=== PATIENT | female | born 1980 | race Caucasian/White ===

== ENCOUNTER 2023-03-20 12:32 | Outpatient (CLI) | payer OTHER, SELFPAY ==
--- NOTE | ~2023-03-20 | XR_ITS ---
XR abdomen/kub 1V 03/20/2023 13:12 Indication: Abdominal distention Procedure: KUB Comparison: 05/03/2005 Findings: Bowel gas pattern nonobstructive. Moderate colonic fecal loading. Lung bases unremarkable. There is a vascular stent in the left iliac artery. No acute osseous abnormality. Impression: 1: No acute abdominal abnormality. Reviewed, dictated and finalized at location B. ORIZATION REPRESENTATIVE Impression: 1: No acute abdominal abnormality.
[2023-03-20 13:19] LABS: Hematocrit 37.5 % (37.0-47.0); Hemoglobin 11.8 g/dL (12.0-15.0); Mean Corpuscular HGB Conc 31.5 g/dl (32-36); Mean Corpuscular Volume 88.9 fl (80-100); Platelet Count Result 327 k/mm3 (150-375); Red Blood Count 4.22 M/mm3 (4.2-5.4); Red Cell Distribution Width 14.1 % (11.5-14.5); White Blood Count 4.5 K/mm3 (4.5-10.0)
[2023-03-20 13:31] LABS: Alanine Aminotransferase 14 U/L (6-35); Albumin Level 4.2 g/dL (3.5-5.1); Alkaline Phosphatase 56 U/L (38-126); Anion Gap 10 mmol/L (8-16); Aspartate Amino Transferase 19 U/L (14-36); Bilirubin,Total 0.4 mg/dL (0.2-1.3); Blood Urea Nitrogen 9 mg/dL (7-17); Calcium 9.3 mg/dL (8.4-10.2); Carbon Dioxide 19 mmol/L (22-30); Chloride 109 mmol/L (98-107); Estimated Glomerular Filt Rate 50; Glucose 97 mg/dL (65-110); Potassium 4.3 mmol/L (3.4-5.0); Sodium 138 mmol/L (137-145)
[2023-03-20 14:00] LABS: Thyroid Stimulating Hormone < 0.015 uIU/mL (0.465-4.680)
== END 2023-03-20 12:33 | disposition home or self-care (01) ==
LOC: ANHLAB 12:35
PROVIDERS: PCP Family Medicine; Visit Provider Nurse Practitioner Family
DX: R14.0 Abdominal distension (gaseous) (principal)
CPT/HCPCS: 36415; 74018; 80053; 84443; 85027

== ENCOUNTER 2024-01-06 13:25 | Emergency (ER) | payer OTHER, SELFPAY ==
--- NOTE | ~2024-01-06 | US_ITS ---
EXAMINATION: US venous doppler [facility] DATE: 01/06/2024 15:04 INDICATION: Bilateral lower limb pain with chest pain and respiratory abnormality. TECHNIQUE: Grayscale ultrasound images without and with compression and Doppler ultrasound images of the bilateral lower extremity veins were obtained. COMPARISON: None. FINDINGS: The visualized portions of right common femoral vein, profunda (deep) femoral vein, femoral vein, pop liteal vein, posterior tibial veins, peroneal veins and greater saphenous vein outflow are patent. The visualized portions of left common femoral vein, profunda femoral vein, femoral vein, popliteal v ein, posterior tibial veins, peroneal veins and greater saphenous vein outflow are patent. IMPRESSION: 1. No deep venous thrombosis in either lower limb. Reviewed, dictated and finalized at location B.
--- NOTE | ~2024-01-06 | CT_ITS ---
EXAMINATION: CTA chest PE protocol DATE: 01/06/2024 16:39 INDICATION: CP with SOA TECHNIQUE: Computed tomography angiography (CTA) of the chest was performed with 100 mL Omnipaque-350 intravenous contrast timed to evaluate the pulmonary arteries. Coronal maximum intensity projection 3D-reconstructions were created by the technologist. The dose-length product (DLP) was 144.34 mGy-cm. Automated exposure control and iterative reconstruction technique were employed. COMPARISON: None. FINDINGS: Motion artifact in the lung bases and upper abdomen. Lung parenchyma and airways: Clear. Pleura: Unremarkable. Thoracic inlet, axillae and chest wall: Unremarkable. Thoracic aorta: No significant dilation. No dissection. Mediastinum: Normal. Heart and pericardium: Normal. Coronary artery calcifications: Absent. Upper abdomen: No significant finding. Bones: No acute osseous finding. Pulmonary arteries: Study quality: Adequate. No pulmonary emboli detected. IMPRESSION: No CT evidence of acute pulmonary embolus. No acute process detected in the chest. Reviewed, dictated and finalized at location K.
--- NOTE | 2024-01-06 13:32 | ECG_ITS ---
Test Date: 2024-01-06 13:36:08 Measurements Intervals [place] Rate: 132 P: 69 [place]: 142 QRS: 76 QRSD: 79 T: 57 QT: 296 QTc: 439 Interpretive Statements SINUS TACHYCARDIA BASELINE ARTIFACT- I, II, AVR, AVL ABNORMAL ECG No previous ECG available for comparison Electronically Signed On 01-06-2024 13:46:25 CDT by Arturo Walton D.O.
[2024-01-06 13:41] VITALS: BP 144/106; PULSE 132; RESP 18; TEMP 36.3; O2SAT 100
[2024-01-06 13:56] VITALS: BP 173/118; PULSE 117; PULSE 131; RESP 11; RESP 16; O2SAT 100; O2SAT 99
[2024-01-06 14:13] VITALS: BP 129/92; PULSE 118; RESP 16; O2SAT 99
[2024-01-06] MEDS: ACETAMINOPHEN 325 MG TABLET 650 MG PO (14:23)
[2024-01-06] MEDS: fentaNYL CITRATE INJ (*CRX) 100 MCG/2 ML VIAL 50 MCG IV PUSH (14:30)
[2024-01-06 14:31] LABS: Basophils Percent Auto 0.6 % (0.2-1.2); Eosinophils Absolute Auto 0.3 K/mm3 (0-0.3); Eosinophils Percent Auto 3.7 % (0-4.4); Hematocrit 38.5 % (37.0-47.0); Hemoglobin 12.7 g/dL (12.0-15.0); Immature Granulocyte Absolute 0.01 K/mm3 (0.00-0.031); Immature Granulocyte Percent A 0.1 % (0-0.5); Lymphocytes Absolute Auto 2.29 K/mm3 (0.9-3.2); Mean Corpuscular Hemoglobin 29.1 pg (26-34); Mean Corpuscular Volume 88.1 fl (80-100); Mean Platelet Volume 9.5 fl (7.4-10.4); Monocytes Absolute Auto 0.5 K/mm3 (0.1-0.6); Monocytes Percent Auto 6.9 % (2.6-8.5); Neutrophils Absolute Auto 3.9 K/mm3 (1.3-6.7); Neutrophils Percent Auto 55.7 % (45.5-73.1); Platelet Count Result 338 k/mm3 (150-375); Red Blood Count 4.37 M/mm3 (4.2-5.4); White Blood Count 6.9 K/mm3 (4.5-10.0)
[2024-01-06] MEDS: ONDANSETRON INJ 4 MG/2 ML VIAL IV PUSH (14:34)
[2024-01-06 14:42] LABS: INR 1.4; Partial Thromboplastin Time 29.9 Seconds (22.3-36.8); Prothrombin Time 17.8 Seconds (11.1-14.7)
[2024-01-06 14:43] LABS: Add Urine Microscopic? YES; Appearance Urine Clear (Clear); Bacteria Urine None Seen /hpf; Bilirubin Urine Negative (Negative); Blood Urine 3+ (Negative); Color Urine Yellow (Yellow); Glucose Urine UA Negative (Negative); Ketones Urine Trace mg/dL (Negative); Leukocyte Esterase Ur Trace LEU/UL (Negative); Nitrate Urine Negative (Negative); Non Pathogenic Casts 0-2; Protein Urine Negative (Negative); RBC Urine >100 /hpf (0-2); Specific Grav Ur 1.017 (1.001-1.035); Squamous Epithelial Cell Urine None Seen /hpf (Few); Urobilinogen Urine 0.2 mg/dL (<2.0); WBC Urine 0-5 /hpf (0-3)
[2024-01-06 15:23] VITALS: BP 130/99; PULSE 100; RESP 18; O2SAT 100
--- NOTE | 2024-01-06 15:28 | PC.NURSE ---
Called lab at this time to add on CMP, BNP, and Trop
[2024-01-06 15:54] LABS: Alanine Aminotransferase 12 U/L (6-35); Albumin Level 4.2 g/dL (3.5-5.1); Alkaline Phosphatase 48 U/L (38-126); Anion Gap 13 mmol/L (4-12); Aspartate Amino Transferase 28 U/L (14-36); Bilirubin,Total 0.3 mg/dL (0.2-1.3); Blood Urea Nitrogen 12 mg/dL (7-17); Calcium 9.4 mg/dL (8.4-10.2); Carbon Dioxide 19 mmol/L (22-30); Chloride 108 mmol/L (98-107); Estimated CRCL calculation 58 ml/min; Estimated Glomerular Filt Rate > 60; Glucose 108 mg/dL (65-110); Potassium 3.9 mmol/L (3.4-5.0); Sodium 140 mmol/L (137-145)
[2024-01-06 16:06] LABS: NT Pro B Type Natriuretic Pept < 20 pg/mL (19.9-100); Troponin I < 0.012 ng/mL (0.000-0.034)
--- NOTE | 2024-01-06 17:08 | ED.GENADULT ---
HPI - General Adult General Chief complaint: Extremity Problem,Nontraumatic Stated complaint: bilateral leg pain. hx DVT Time Seen by Provider: 01/06/24 13:54 History of Present Illness HPI narrative: Patient is a 43-year-old female who presents ER with leg pain and chest pain. She thinks she has a clot in her legs. She has been having discomfort up and down legs for last week. Her PCP told her to come to the ER 3 days ago which she waited until today. She has also been having some racing heart and dyspnea with mild pain with deep breath. No hemoptysis. She is anticoagulated on Xarelto. No fevers or chills or sweats. No runny nose or sore throat or productive cough. No aggravating or alleviating factors. Related Data Home Medications Medication Instructions Recorded Confirmed albuterol sulfate 90 mcg/actuation 1 inh inhalation Q4H PRN Shortness 03/19/23 04/03/23 aerosol inhaler Of Breath alprazolam 1 mg tablet 1 mg PO DAILY PRN Anxiety 03/19/23 04/03/23 levothyroxine 175 mcg capsule 175 mcg PO DAILY 03/19/23 04/03/23 bupropion HCl 150 mg tablet,12 hr 150 mg PO DAILY 04/03/23 04/03/23 sustained-release cholecalciferol (vitamin D3) 125 125 mcg PO DAILY 04/03/23 04/03/23 mcg (5,000 unit) tablet (Vitamin D3) clonidine HCl 0.2 mg tablet 0.2 mg PO HS 04/03/23 04/03/23 cyanocobalamin (vitamin B-12) 1,000 mcg IM MONTHLY 04/03/23 04/03/23 1,000 mcg/mL injection solution dexmethylphenidate 20 mg 20 mg PO DAILY 04/03/23 04/03/23 capsule,extended release -83 (Focalin XR) diazepam 5 mg tablet 5 - 10 mg PO DAILY PRN Anxiety 04/03/23 04/03/23 ergocalciferol (vitamin D2) 1,250 1,250 mcg PO WEEKLY 04/03/23 04/03/23 mcg (50,000 unit) capsule ferrous sulfate 325 mg (65 mg 325 mg PO BID 04/03/23 04/03/23 iron) tablet (Iron (ferrous sulfate)) fluticasone propionate 50 1 spray intranasal DAILY 04/03/23 04/03/23 mcg/actuation nasal spray,suspension hydroxyzine pamoate 50 mg capsule 50 mg PO BID 04/03/23 04/03/23 ketoconazole 2 % shampoo 1 applic topical PRN PRN DERMATITIS 04/03/23 04/03/23 lamotrigine 25 mg tablet 50 mg PO DAILY 04/03/23 04/03/23 linaclotide 145 mcg capsule 145 mcg PO DAILY 04/03/23 04/03/23 (Linzess) metoclopramide HCl 10 mg tablet 10 mg PO TIDWMEAL 04/03/23 04/03/23 ondansetron 4 mg disintegrating 4 - 8 mg PO TID PRN Nausea 04/03/23 04/03/23 tablet polyethylene glycol 3350 17 17 g PO DAILY PRN Constipation 04/03/23 04/03/23 gram/dose oral powder (Miralax) rivaroxaban 20 mg tablet (Xarelto) 20 mg PO DAILY 04/03/23 04/03/23 thiamine HCl (vitamin B1) 1 tab-cap PO DAILY 04/03/23 04/03/23 topiramate 100 mg tablet 150 mg PO DAILY 04/03/23 04/03/23 vitamin A 1 cap PO DAILY 04/03/23 04/03/23 zinc 1 tab-cap PO DAILY 04/03/23 04/03/23 Allergies Allergy/AdvReac Type Severity Reaction Status Date / Time morphine Allergy Severe throat Verified 04/03/23 10:00 swelling nifedipine Allergy Intermediate Severe Verified 03/20/23 11:12 headache latex Allergy Mild Rash Verified 04/03/23 10:00 Sulfa (Sulfonamide AdvReac Mild vomiting Verified 04/03/23 10:00 Antibiotics) HYDROCODONE BIT AdvReac NAUSEA Uncoded 04/03/23 10:00 Review of Systems Review of Systems: All systems reviewed & are unremarkable except as noted in HPI and below Constitutional: Constitutional: Reports no additional constitutional complaints ENT: Reports system reviewed and no additional complaints, except as documented Cardiovascular: Cardiovascular: Reports chest pain, Reports rapid heart rate and Denies radiating jaw, neck or arm pain Respiratory: Respiratory: Reports no additional respiratory complaints Gastrointestinal: Gastrointestinal: Reports no additional gastrointestinal complaints Musculoskeletal: Musculoskeletal: Reports no additional musculoskeletal complaints [facility] Past Medical History Medical History (Updated 01/06/24 @ 17:22 by Jakob Antonio MD) Abdominal bloating Constipati
[2024-01-06 17:49] VITALS: BP 128/90; PULSE 97; RESP 20; O2SAT 98
== END 2024-01-06 17:50 | disposition home or self-care (01) ==
PROVIDERS: Emergency Provider Emergency Medicine
DX: M79.605 Pain in left leg (principal); M79.604 Pain in right leg; R07.9 Chest pain, unspecified; Z86.718 Personal history of other venous thrombosis and embolism; Z87.891 Personal history of nicotine dependence; Z79.01 Long term (current) use of anticoagulants; Z79.899 Other long term (current) drug therapy
CPT/HCPCS: 36415; 71275; 80053; 81001; 83880; 84484; 85025; 85610; 85730; 93005; 93970; 96374; 96375; 99284; A9270; J2405; J3010; Q9967

== ENCOUNTER 2024-04-19 17:24 | Emergency (ER) | payer OTHER, SELFPAY ==
--- NOTE | ~2024-04-19 | CT_ITS ---
History: Headache PROCEDURE: CT head without contrast. COMPARISON: 10/08/2011 TECHNIQUE: Axial imaging of the head performed from the skull base to the vertex without IV contrast. Sagittal a nd coronal reformations obtained. DLP: 605 mGy-cm FINDINGS: The ventricles are normal in size, shape and position. There is no mass, mass effect or midline shift. There is no abnormal extra-axial fluid collection or intracranial hemorrhage. Visualized paranasal sinuses are clear. The mastoid air cells are well aerated. No acute displaced fractures within the overlying cranium. Impression: No acute intracranial hemorrhage or suspicious mass effect. Reviewed, dictated and finalized at location A. E LAMINATOR OPERATOR Impression: No acute intracranial hemorrhage or suspicious mass effect.
[2024-04-19 17:25] VITALS: BP 118/90; PULSE 120; RESP 16; TEMP 36.3; O2SAT 100
[2024-04-19 21:23] VITALS: BP 118/93; PULSE 73; RESP 19; O2SAT 100
--- NOTE | 2024-04-19 21:26 | PC.NURSE ---
patient brought back from triage. patient is hunched over with scarf on complaining of severe headache.
[2024-04-19] MEDS: SODIUM CHLORIDE 0.9% IV 1,000 ML 999 ML IV CONT (21:57)
[2024-04-19] MEDS: dexAMETHasone SOD PHOS INJ 10 MG/ML 1 ML VIAL IV PUSH (21:58)
[2024-04-19] MEDS: METOCLOPRAMIDE HCL INJ 10 MG/2 ML VIAL IV PUSH (21:58)
[2024-04-19] MEDS: diphenhydrAMINE HCl INJ 50 MG/ML VIAL 25 MG IV PUSH (21:59)
[2024-04-19] MEDS: MAGNESIUM SULF 1 GM/D5W 100 ML 1 GM/100 ML BAG IVPB (22:03)
[2024-04-19 22:06] LABS: Basophils Absolute Auto 0.1 K/mm3 (0.0-0.1); Basophils Percent Auto 0.7 % (0.2-1.2); Eosinophils Absolute Auto 0.3 K/mm3 (0-0.3); Eosinophils Percent Auto 3.9 % (0-4.4); Hematocrit 35.6 % (37.0-47.0); Lymphocytes Absolute Auto 3.08 K/mm3 (0.9-3.2); Lymphocytes Percent Auto 46.1 % (18.3-44.2); Mean Corpuscular HGB Conc 30.9 g/dl (32-36); Mean Corpuscular Hemoglobin 24.9 pg (26-34); Mean Corpuscular Volume 80.5 fl (80-100); Monocytes Absolute Auto 0.6 K/mm3 (0.1-0.6); Neutrophils Absolute Auto 2.7 K/mm3 (1.3-6.7); Neutrophils Percent Auto 40.3 % (45.5-73.1); Platelet Count Result 392 k/mm3 (150-375); Red Blood Count 4.42 M/mm3 (4.2-5.4); Red Cell Distribution Width 17.2 % (11.5-14.5); White Blood Count 6.7 K/mm3 (4.5-10.0)
[2024-04-19 22:19] LABS: Alanine Aminotransferase 9 U/L (6-35); Albumin Level 4.5 g/dL (3.5-5.1); Alkaline Phosphatase 51 U/L (38-126); Anion Gap 6 mmol/L (4-12); Aspartate Amino Transferase 17 U/L (14-36); Bilirubin,Total 0.4 mg/dL (0.2-1.3); Blood Urea Nitrogen 9 mg/dL (7-17); Calcium 9.4 mg/dL (8.4-10.2); Carbon Dioxide 20 mmol/L (22-30); Chloride 112 mmol/L (98-107); Estimated CRCL calculation 58 ml/min; Estimated Glomerular Filt Rate > 60; Glucose 90 mg/dL (65-110); Potassium 3.9 mmol/L (3.4-5.0); Sodium 138 mmol/L (137-145)
[2024-04-19 22:43] LABS: Magnesium 2.1 mg/dL (1.6-2.3)
--- NOTE | 2024-04-19 23:37 | ED_ITS ---
HPI - General Adult General Chief complaint: Headache Stated complaint: head Time Seen by Provider: 04/19/24 21:26 History of Present Illness HPI narrative: Patient 43-year-old female who presents emergency department with chief complaint of headache. The patient reports he has been having some nausea vomiting and reports she has had headache patient does report that she takes Eliquis for DVTs patient reports he has not missed any medications the patient states that the light bothers her eyes reports she feels nauseated with this the patient denies focal weakness. Related Data Home Medications ?Medication ?Instructions ?Recorded ?Confirmed ?Last Taken ?Type albuterol sulfate 90 mcg/actuation 1 inh inhalation Q4H PRN Shortness 03/19/23 04/03/23 Unknown History aerosol inhaler Of Breath alprazolam 1 mg tablet 1 mg PO DAILY PRN Anxiety 03/19/23 04/03/23 Unknown History levothyroxine 175 mcg capsule 175 mcg PO DAILY 03/19/23 04/03/23 Unknown History bupropion HCl 150 mg tablet,12 hr 150 mg PO DAILY 04/03/23 04/03/23 Unknown History sustained-release cholecalciferol (vitamin D3) 125 125 mcg PO DAILY 04/03/23 04/03/23 Unknown History mcg (5,000 unit) tablet (Vitamin D3) clonidine HCl 0.2 mg tablet 0.2 mg PO HS 04/03/23 04/03/23 Unknown History cyanocobalamin (vitamin B-12) 1,000 mcg IM MONTHLY 04/03/23 04/03/23 Unknown History 1,000 mcg/mL injection solution dexmethylphenidate 20 mg 20 mg PO DAILY 04/03/23 04/03/23 Unknown History capsule,extended release [id number] (Focalin XR) diazepam 5 mg tablet 5 - 10 mg PO DAILY PRN Anxiety 04/03/23 04/03/23 Unknown History ergocalciferol (vitamin D2) 1,250 1,250 mcg PO WEEKLY 04/03/23 04/03/23 Unknown History mcg (50,000 unit) capsule ferrous sulfate 325 mg (65 mg 325 mg PO BID 04/03/23 04/03/23 Unknown History iron) tablet (Iron (ferrous sulfate)) fluticasone propionate 50 1 spray intranasal DAILY 04/03/23 04/03/23 Unknown History mcg/actuation nasal spray,suspension hydroxyzine pamoate 50 mg capsule 50 mg PO BID 04/03/23 04/03/23 Unknown History ketoconazole 2 % shampoo 1 applic topical PRN PRN DERMATITIS 04/03/23 04/03/23 Unknown History lamotrigine 25 mg tablet 50 mg PO DAILY 04/03/23 04/03/23 Unknown History linaclotide 145 mcg capsule 145 mcg PO DAILY 04/03/23 04/03/23 Unknown History (Linzess) metoclopramide HCl 10 mg tablet 10 mg PO TIDWMEAL 04/03/23 04/03/23 Unknown History ondansetron 4 mg disintegrating 4 - 8 mg PO TID PRN Nausea 04/03/23 04/03/23 Unknown History tablet polyethylene glycol 3350 17 17 g PO DAILY PRN Constipation 04/03/23 04/03/23 Unknown History gram/dose oral powder (Miralax) rivaroxaban 20 mg tablet (Xarelto) 20 mg PO DAILY 04/03/23 04/03/23 Unknown History thiamine HCl (vitamin B1) 1 tab-cap PO DAILY 04/03/23 04/03/23 Unknown History topiramate 100 mg tablet 150 mg PO DAILY 04/03/23 04/03/23 Unknown History vitamin A 1 cap PO DAILY 04/03/23 04/03/23 Unknown History zinc 1 tab-cap PO DAILY 04/03/23 04/03/23 Unknown History Allergies Allergy/AdvReac Type Severity Reaction Status Date / Time morphine Allergy Severe throat Verified 04/03/23 10:00 swelling nifedipine Allergy Intermediate Severe Verified 03/20/23 11:12 headache latex Allergy Mild Rash Verified 04/03/23 10:00 Sulfa (Sulfonamide AdvReac Mild vomiting Verified 04/03/23 10:00 Antibiotics) HYDROCODONE BIT AdvReac NAUSEA Uncoded 04/03/23 10:00 Review of Systems 2 Review of Systems: A 10 system review of systems was completed on the patient and is negative except for what is stated in the HPI. Nursing and ancillary documentation was reviewed. [facility] Past Medical History Medical History Constipation Nausea & vomiting Abdominal bloating Social History Social History Smoking packs per day: 0.75 Smoking cigarettes per day: 15.0 Years smoked: 16 Smoking pack-years: 12.00 Smoking status: Former smoker Tobacco type: cigarettes and e-cigarettes/vaping Alcohol intake: current Substance use: never Substance use type: does not use Living arrangements: with family Spiritual care concerns: No Exam 2 Narrative: GENERAL: Well-appearing, well-nourished, and in no acute distress. HEAD: Normocephalic, atraumatic. EYES: PERRLA and EOMI. ENT: Nares clear, no rhinorrhea or epistaxis. Mucous membranes moist. NECK: Supple. CHEST: Clear to auscultation. No respiratory distress. HEART: Regular rate and rhythm. No murmur heard. Normal peripheral pulses. ABDOMEN: Soft, nontender, nondistended, normal active bowel sounds. EXTREMITIES: Normal range of motion. No edema. SKIN: Warm, dry, no rash. NEURO: No focal deficits. Alert and oriented x3. PSYCH: Normal mood and affect. Course Vital Signs Vital signs: Vital Signs Temperature 36.3 C L 04/19/24 17:25 Pulse Rate 120 H 04/19/24 17:25 Respiratory Rate 16 04/19/24 17:25 Blood Pressure 118/90 04/19/24 17:25 Pulse Oximetry 100 04/19/24 17:25 Temperature 36.3 C L 04/19/24 17:25 Pulse Rate 73 04/19/24 21:23 Respiratory Rate 19 04/19/24 21:23 Blood Pressure 118/93 H 04/19/24 21:23 Pulse Oximetry 100 04/19/24 21:23 Medical Decision Making [facility] Narrative Medical decision making narrative: Differential diagnosis includes migraine headache, headache, intracranial hemorrhage, Laboratory studies were obtained on the patient showed normal CBC CMP showed no significant abnormalities CT head showed no acute intracranial pathology. The patient was treated with modified migraine cocktail and is feeling much better at this time the patient will be discharged home. Vital Signs Vital Signs: Vital Signs Temperature 36.3 C L 04/19/24 17:25 Pulse Rate 120 H 04/19/24 17:25 Respiratory Rate 16 04/19/24 17:25 Blood Pressure 118/90 04/19/24 17:25 Pulse Oximetry 100 04/19/24 17:25 Temperature 36.3 C L 04/19/24 17:25 Pulse Rate 73 04/19/24 21:23 Respiratory Rate 19 04/19/24 21:23 Blood Pressure 118/93 H 04/19/24 21:23 Pulse Oximetry 100 04/19/24 21:23 Lab Data 04/19/24 21:57 04/19/24 21:57 Labs: Lab Results 04/19/24 04/19/24 Range/Units 21:57 21:57 WBC 6.7 (4.5-10.0) K/mm3 RBC 4.42 (4.2-5.4) M/mm3 Hgb 11.0 L (12.0-15.0) g/dL Hct 35.6 L (37.0-47.0) % MCV 80.5 (80-100) fl MCH 24.9 L (26-34) pg MCHC 30.9 L (32-36) g/dl RDW 17.2 H (11.5-14.5) % Plt Count 392 H (150-375) k/mm3 MPV 10.0 (7.4-10.4) fl Immature Gran % (Auto) 0.0 (0-0.5) % Neut % (Auto) 40.3 L (45.5-73.1) % Lymph % (Auto) 46.1 H (18.3-44.2) % [place] % (Auto) 9.0 H (2.6-8.5) % Eos % (Auto) 3.9 (0-4.4) % Baso % (Auto) 0.7 (0.2-1.2) % Lymph # (Auto) 3.08 (0.9-3.2) K/mm3 [place] # (Auto) 0.6 (0.1-0.6) K/mm3 Eos # (Auto) 0.3 (0-0.3) K/mm3 Baso # (Auto) 0.1 (0.0-0.1) K/mm3 Abs Immat Gran (auto) 0.00 (0.00-0.031) K/mm3 Absolute Neuts (auto) 2.7 (1.3-6.7) K/mm3 Absolute Nucleated RBC 0.000 (0.0-0.012) K/mm3 Nucleated RBC % 0.0 (0.0-0.2) % Sodium 138 (137-145) mmol/L Potassium 3.9 (3.4-5.0) mmol/L Chloride 112 H (98-107) mmol/L Carbon Dioxide 20 L (22-30) mmol/L Anion Gap 6 (4-12) mmol/L BUN 9 (7-17) mg/dL Creatinine 1.00 (0.7-1.0) mg/dL Estim Creat Clear Calc 58 ml/min Estimated GFR > 60 (59 - ) Glucose 90 (65-110) mg/dL Calcium 9.4 (8.4-10.2) mg/dL Magnesium 2.1 Cancelled (1.6-2.3) mg/dL Total Bilirubin 0.4 (0.2-1.3) mg/dL AST 17 (14-36) U/L ALT 9 (6-35) U/L Alkaline Phosphatase 51 (38-126) U/L Total Protein 8.0 (6.3-8.2) g/dL Albumin 4.5 (3.5-5.1) g/dL Discharge Plan Discharge Clinical Impression: Headache Patient Disposition: Home, Self-Care Condition: Stable Instructions: Antibiotic Form, Acute Headache (ED) Patient Language: Maori Prescriptions: No Action albuterol sulfate 90 mcg/actuation HFA aerosol inhaler 1 inh inhalation Q4H PRN (Reason: Shortness Of Breath) alprazolam 1 mg tablet 1 mg PO DAILY PRN (Reason: Anxiety) levothyroxine 175 mcg capsule 175 mcg PO DAILY bupropion HCl 150 mg tablet sustained-release 12 hr 150 mg PO DAILY hydroxyzine pamoate 50 mg capsule 50 mg PO BID lamotrigine 25 mg tablet 50 mg PO DAILY clonidine HCl 0.2 mg tablet 0.2 mg PO HS cyanocobalamin (vitamin B-12) 1,000 mcg/mL solution 1,000 mcg IM MONTHLY ferrous sulfate [Iron (ferrous sulfate)] 325 mg (65 mg iron) Tablet 325 mg PO BID polyethylene glycol 3350 [Miralax] 17 gram/dose Powder 17 g PO DAILY PRN (Reason: Constipation) ondansetron 4 mg tablet,disintegrating 4 - 8 mg PO TID PRN (Reason: Nausea) fluticasone propionate 50 mcg/actuation spray,suspension 1 spray INTRANASAL DAILY diazepam 5 mg tablet 5 - 10 mg PO DAILY PRN (Reason: Anxiety) metoclopramide HCl 10 mg tablet 10 mg PO TIDWMEAL dexmethylphenidate [Focalin XR] 20 mg capsule,ER biphasic 50-50 20 mg PO DAILY cholecalciferol (vitamin D3) [Vitamin D3] 125 mcg (5,000 unit) Tablet 125 mcg PO DAILY Xarelto 20 mg tablet 20 mg PO DAILY Linzess 145 mcg capsule 145 mcg PO DAILY thiamine HCl (vitamin B1) 1 tab-cap PO DAILY vitamin A 1 cap PO DAILY zinc 1 tab-cap PO DAILY ergocalciferol (vitamin D2) 1,250 mcg (50,000 unit) capsule 1,250 mcg PO WEEKLY topiramate 100 mg tablet 150 mg PO DAILY ketoconazole 2 % shampoo 1 applic TOPICAL PRN PRN (Reason: DERMATITIS) cyclobenzaprine 10 mg tablet 10 mg PO TID PRN (Reason: muscle spasm) Qty: 20 0RF Follow-up/Referrals: PHYSICIAN NOT ON STAFF,NONSTAFF [Primary Care Provider] - Time of Disposition: 23:39
[2024-04-19 23:54] VITALS: BP 115/85; PULSE 62; RESP 17; O2SAT 98
--- OUTSIDE RECORDS SUMMARY | 2024-04-26 21:19 | XMS_ITS | Clinical Summary ---
Author Organization [facility] Address [address] [place] [address] Care Team Providers Care Search Marketing Specialist Name Role Phone Echo Pollard MD Primary Care Provider [phone] David Alicea MD Unavailable Source Comments [facility],non-owned Affiliates and Associated Physician Practices is amultiple site organization consisting of ambulatory clinics and hospital sitesin [place], [place], [place] and [place]. This disclosure is being madepursuant to the Care Everywhere program and may not contain all information available regarding this patient. Last updated 18.[facility] Allergies Active Allergy Reactions Criticality Noted Date Comments Ciprofloxacin Nausea and/or Vomiting,Vomiting 01/01/2023 Reaction: Nausea, Vomiting, Iodine Other 05/14/2023 Latex Unknown 01/12/2011 rash Magnesium Salicylate Unknown 08/03/2010 Patient stated that after administration she felt like she was having an anxiety attack and got very overheated Morphine Anaphylaxis,Darrion phillips,Other High 07/06/2010 Reaction: Throat Swelling, Sulfa Antibiotics Nausea and/or Vomiting,Rash Medium 07/06/2010 Sulfa Drugs Rash,Nausea and/or Vomiting Low 07/06/2010 Medications * Be aware that medications may not be up to date on this document. Alwaysverify current medications with the patient. Medication Sig Dispensed Refills Start Date End Date Status levothyroxine (SYNTHROID) 125 MCG tablet Take 125 mcg by mouth daily before breakfast. Dose increased 06/19/10 per pharmacy refill records Active ondansetron (ZOFRAN) 4 MG tablet Take 4 mg by mouth every 8 hours as needed. 07/10/2010 Active Vit-Fe Fumarate-FA ( VITAMIN) 28-0.8 MG tablet Take 1 Tab by mouth daily. Active calcium carbonate (TUMS) 500 MG chew tabletIndications :Heartburn Take 1 Tab by mouth as needed. Indications: Heartburn 08/03/2010 Active docusate sodium (COLACE) 100 MG capsule Take 1 Cap by mouth 2 times daily as needed for Constipation. 60 Cap 5 09/14/2010 Active polyethylene glycol 3350 (GLYCOLAX) powder Take 17 g by mouth once daily as needed for Constipation. 119 g 3 01/04/2011 Active ibuprofen (MOTRIN) 600 MG tablet Take 1 Tab by mouth every 4 hours as needed for Pain. 120 1 01/16/2011 Active FLUoxetine (PROZAC) 20 MG capsule Take 1 (one) capsule by mouth once daily Take one capsule by mouth once daily at bedtime. Take together with olanzapine. 30 capsule 11/22/2020 Active OLANZapine (ZYPREXA) 5 MG tablet Take 1 (one) tablet by mouth once daily Take one tablet by mouth once daily at bedtime. Take together with fluoxetine 20 mg capsule. 30 tablet 11/22/2020 Active ziprasidone (Geodon) 40 MG capsule Take 1 (one) capsule by mouth 10/18/2022 Active venlafaxine (Effexor) 75 MG tablet 05/10/2023 Active topiramate (Topamax) 100 MG tablet 05/06/2023 Active rizatriptan (Maxalt) 10 MG tablet 10/07/2022 Active rivaroxaban (Xarelto) 20 MG tablet Take 1 (one) tablet by mouth 11/29/2022 Active promethazine (Phenergan) 25 MG tablet 06/13/2022 Active ondansetron, disintegrating, (Zofran ODT) 8 MG tablet Active nicotine (Nicoderm CQ) 14 MG/24HR patch Apply 1 patch every day by transdermal route for 14 days. Active Mibelas 24 Fe 1-20 MG-MCG(24) tablet 07/20/2022 Active naltrexone (Revia) 50 MG tablet 05/10/2023 Active Multiple Vitamin (Daily-Maria Guadalupe) TABS 06/12/2022 Active montelukast (Singulair) 10 MG tablet 09/20/2022 Active metoclopramide (Reglan) 10 MG tablet 05/10/2023 Active meloxicam (Mobic) 7.5 MG tablet TK 1 T PO WITH FOOD QD Active medroxyPROGESTERo ne (Depo-Provera) 150 MG/ML prefilled syringe 06/13/2022 Active Linzess 145 MCG capsule 04/17/2023 Active lidocaine (Lidoderm) 5 % patch 12/17/2022 Active levothyroxine (Synthroid) 150 MCG tablet Take 1 (one) tablet by mouth once daily 05/05/2023 Active levothyroxine (Synthroid) 175 MCG tablet 05/10/2023 Active levonorgestrel (Plan B One Step) 1.5 MG tablet Take 1 (one) tablet by mouth as directed 08/02/2022 Active lamoTRIgine (LaMICtal) 25 MG tablet 05/11/2023 Active ketoconazole (Nizoral) 2 % shampoo 02/26/2023 Active hydrOXYzine pamoate (Vistaril) 50 MG capsule 05/11/2023 Active hydrOXYzine HCl (Atarax) 50 MG tablet Take 1 (one) tablet by mouth 10/19/2022 Active HYDROcodone-aceta minophen ([place]ford) 5-325 MG tablet 05/10/2023 Active fluticasone propionate (Flonase) 50 MCG/ACT nasal spray 04/23/2023 Active fluconazole (Diflucan) 150 MG tablet 06/06/2022 Active vitamin D, ergocalciferol, (Drisdol) 1.25 MG (67456 UT) capsule 05/10/2023 Active enoxaparin (Lovenox) 60 MG/0.6ML injection 11/15/2022 Active diazePAM (Valium) 5 MG tablet 04/09/2023 Active Focalin XR 20 MG capsule 04/05/2023 Active dexAMETHasone (Decadron) 6 MG tablet 04/03/2023 Active cyanocobalamin (Vitamin B-12) injection Inject 1 mL every month by intramuscular route. 11/07/2022 Active clopidogrel (plaVIX) 75 MG tablet Take 1 (one) tablet by mouth 10/19/2022 Active cloNIDine (Catapres) 0.2 MG tablet 05/10/2023 Active Allergy Relief Cetirizine 10 MG tablet 06/05/2022 Active Vraylar 1.5 MG capsule 07/07/2022 Active buPROPion SR 12hr (Wellbutrin-SR) 150 MG tablet 05/10/2023 Active butalbital-acetam inophen-caffeine (Fioricet) 50-325-40 MG tablet TK 1-2 TS PO Q 4-6 HOURS PRN Active ALPRAZolam (Xanax) 1 MG tablet 05/07/2023 Active albuterol HFA (Proventil; Ventolin; Proair) 108 (90 Base) MCG/ACT inhaler 06/13/2022 Active acetaminophen-cod eine (Tylenol #3) 300-30 MG tablet TK 1 TO 2 TS PO Q 4 TO 6 H PRN Active Active Problems Patient Care Coordination No te Formatting of this note migh t be different from the original. Transfer of Care (MD Hemanth); Co Management NURSING HOME Problem Noted Date Diagnosed Date MDD (major depressive disorder), single episode, moderate 11/22/2020 Seizure disorder 09/14/2010 Overview (01/11/2011): Questionable history; reports that these occurred when she was on antidepressants and OCPs Did see Neurologist; thought that perhaps from hormones or migraines?? No medications; last seizure 2.5 years ago Carpal tunnel syndrome on left 09/14/2010 Overview (01/11/2011): Transient, intermittent and more with activity. Has braces. SAB (spontaneous ) 07/06/2010 Overview (07/18/2010): H/o 2 sabs (one ?triploidy with Dr. Alejandro, D&C done at [facility]; the other due to low hormone so is on hormone pills now ?progesterone) 1 TAB (took pills) Received records from Dr. Alejandro from 11/1999. U/S revealed gestational sac without pole. D&C pathology revealed immature chorionic villi and decidua. No record of chromosomal studies received from any SAB. Asthma 07/06/2010 Overview (07/06/2010): Remote, no sxs Status post umbilical hernia repair 07/06/2010 Overview (07/06/2010): With mesh Dr. Flynn at [facility] Tobacco use complicating or childbirth 07/06/2010 Encounter for health-related screening 1 Overview (07/20/2017): NT normal. Second part of screen negative. IMO update 07 21 2017 Supervision of high-risk 06/22/2010 Overview (01/11/2011): Datinweeks documented scan c/w 13w scan (07/26 was 13w6d) PNL: A+/I/-/-; HIV NR Hbg/Plt: 13.7/ 326 (06/08) Pap: neg Gc/Chl: negative GCT: 76 GBS: uria in May Lupus (systemic lupus erythematosus) 06/22/2010 Overview (12/14/2010): ?questionable. Pt states she has had symptoms for life but never tested positive CIARRA neg DS DNA antibody, SSA and SSB negative. Schedule weekly BPP, DUNIA, NST h/o Severe pre-eclampsia, antepartum 06/22/2010 Overview (12/14/2010): H/o in last delivery secondary to elevated BPs Had placenta previa, chorioangioma, severe pre-E 24 hour urine protein 11/30: 158 History of delivery, currently 06/22/2010 Overview (09/14/2010): 36wk spontaneous PTD 33wk induction due to superimposed severe Pre-E S/P cone biopsy of cervix 06/22/2010 Overview (09/14/2010): CL 3.7 cm Hypothyroid 06/22/2010 Overview (01/11/2011): Component Name 01/11/11 1230 11/30/10 1030 11/08/10 1345 T4FREE 1.11 1.22 1.15 Component Name 01/11/11 1230 11/30/10 1030 11/08/10 1345 TSH 1.59 1.90 3.01 Continue synthroid 125mcg daily Marijuana abuse 06/22/2010 Overview (07/06/2010): UDS positive for MJ on 07/06/10 Anxiety 06/22/2010 Overview (12/14/2010): And neurosis; patient denies current symptoms. No medications GBS (group B streptococcus) UTI complicating pre gnancy 06/22/2010 Resolved Problems Problem Noted Date Diagnosed Date Resolved Date HTN (hypertension) 06/22/2010 1 Overview (12/07/2010): 24 hr urine was 153 Immunizations Name Administration Dates Next Due Human Papilloma Virus Vaccine 02/28/2009 INFLUENZA 01/16/2011 TDAP (7yrs+) 04/22/2009 Family History Medical History Relation Name Comments Cancer - Breast Maternal Grandmother Asthma Mother Hepatitis Mother C Hypertension Mother Other Sister ovarian cysts Heart Disease Other both sides of families Relation Name Status Comments Maternal Grandmother Mother Sister Other Social History Tobacco Use Types Packs/Day Years Used Date Smoking Tobacco: Every Day Cigarettes Smokeless Tobacco: Never Alcohol Use Standard Drinks/Week Comments No 0 (1 standard drink = 0.6 oz pur e alcohol) Sex and Gender Information Value Date Recorded Sex Assigned at Not on file Gender Identity Not on file Sexual Orientation Not on file Last Filed Vital Signs Vital Sign Reading Time Taken Comments Blood Pressure 109/80 05/14/2023 1:41 PM BRIM STIFFENER Pulse 86 05/14/2023 1:41 PM BRIM STIFFENER Temperature 36.5 ??C (97.7 ??F) 12/05/2021 8:23 PM CD T Respiratory Rate 16 05/14/2023 1:41 PM BRIM STIFFENER Oxygen Saturation 94% 12/05/2021 9:00 PM CDT Inhaled Oxygen Concentration 21% 01/15/2011 1 2:06 AM CDT Weight 62.6 kg (138 lb) 05/14/2023 1:41 PM BRIM STIFFENER Height 160 cm (5' 3 ) 05/14/2023 1:41 PM BRIM STIFFENER Body Mass Index 24.45 05/14/2023 1:41 PM BRIM STIFFENER Plan of Treatment Health Maintenance Due Date Last Done Comments LIPID TESTING 1981 MAMMOGRAM 1981 PAP SMEAR 1981 PNEUMOCOCCAL VACCINE (1 of 2 - PCV) 08/19/1987 HIV SCREENING 1996 HEPATITIS C SCREENING 08/14/1999 HEPATITIS B VACCINE (1 of 3 - 19+ 3-dose series) 2000 HPV VACCINE (2 - 3-dose SCDM series) 03/28/2009 02/28/2009 DTAP/TDAP/TD VACCINES (2 - T d or Tdap) 04/22/2019 04/22/2009 DEPRESSION SCREENING 04/22/2023 COVID-19 VACCINE (3 - 2023-2 5 season) 2023 05/06/2021, 12/13/2020 INFLUENZA VACCINE (#1) 2023 01/16/2011 ZOSTER VACCINE (1 of 2) 08/19/2031 HIB VACCINE Aged Out No longer eligi ble based on patient's age to complete this topic MENINGOCOCCAL VACCINE Aged Out No yuliya nara eligible based on patient's age to complete this topic Advance Directives * FULL RESUSCITATION (Latest Code Status on File) Date Activated Date Inactivated Comments 01/12/2011 10:41 PM 01/17/2011 1:49 AM Care Teams Search Marketing Specialist Relationship Specialty Start Date End Date Echo Pollard MD [address] [place] [address] [address] [place] [id number] PCP - General Family Medicine 05/14/23 David Alicea MD [address] [place] [address] Neurology 05/14/23
--- OUTSIDE RECORDS SUMMARY | 2024-04-26 21:19 | XMS_ITS | Encounter Summary ---
Author Organization [facility] Address [address] [place] [address] Care Team Providers Care Router Tender Name Role Phone Unavailable Primary Care Provider Unavailabl e Reason for Visit * Reason Comments Chest Pain x years, started stephanie ting worse recently. pt reports that she was told that she needed to get checeked out by work. reports occasional SOB. denies nausea vomiting. Encounter Details Date Type Department Care Team (Late st Contact Info) Description 02/09/2021 3:53 PM CDT - 02/09/2021 5:29 PM CDT Emergency ER at [place] [id number] Ronni Gonzales MD [address] [place] [id number] Chest pain, unspecified type (Primary Dx) Discharge Disposition: Home or Self Care Social History Tobacco Use Types Packs/Day Years Used Date Smoking Tobacco: Every Day Cigarettes Smokeless Tobacco: Never Alcohol Use Standard Drinks/Week Comments No 0 (1 standard drink = 0.6 oz pur e alcohol) Sex and Gender Information Value Date Recorded Sex Assigned at Not on file Gender Identity Not on file Sexual Orientation Not on file documented as of this encounter Last Filed Vital Signs Vital Sign Reading Time Taken Comments Blood Pressure 126/94 02/09/2021 5:00 PM CDT Pulse 77 02/09/2021 5:00 PM CDT Temperature 36.8 ??C (98.3 ??F) 02/09/2021 3:48 PM CD T Respiratory Rate 18 02/09/2021 5:00 PM CDT Oxygen Saturation 97% 02/09/2021 5:00 PM CDT Inhaled Oxygen Concentration - - Weight - - Height 161.3 cm (5' 3.5 ) 02/09/2021 3:48 PM CDT Body Mass Index - - documented in this encounter Discharge Instructions * Attachments The following attachments cannot be sent through Care Everywhere. * Chest Pain (AfterCare(R) Instructions(ER/ED)) (Bangladeshi) documented in this encounter Medications at Time of Discharge Medication Sig Dispensed Refills Start Date End Date calcium carbonate (TUMS) 500 MG chew tabletIndications:Hear tburn Take 1 Tab by mouth as needed. Indications: Heartburn 08/03/2010 docusate sodium (COLACE) 100 MG capsule Take 1 Cap by mouth 2 times daily as needed for Constipation. 60 Cap 5 09/14/2010 FLUoxetine (PROZAC) 20 MG capsule Take 1 (one) capsule by mouth once daily Take one capsule by mouth once daily at bedtime. Take together with olanzapine. 30 capsule 11/22/2020 ibuprofen (MOTRIN) 600 MG tablet Take 1 Tab by mouth every 4 hours as needed for Pain. 120 1 01/16/2011 levothyroxine (SYNTHROID) 125 MCG tablet Take 125 mcg by mouth daily before breakfast. Dose increased 06/19/10 per pharmacy refill records OLANZapine (ZYPREXA) 5 MG tablet Take 1 (one) tablet by mouth once daily Take one tablet by mouth once daily at bedtime. Take together with fluoxetine 20 mg capsule. 30 tablet 11/22/2020 ondansetron (ZOFRAN) 4 MG tablet Take 4 mg by mouth every 8 hours as needed. 07/10/2010 polyethylene glycol 3350 (GLYCOLAX) powder Take 17 g by mouth once daily as needed for Constipation. 119 g 3 01/04/2011 Vit-Fe Fumarate-FA ( VITAMIN) 28-0.8 MG tablet Take 1 Tab by mouth daily. documented as of this encounter ED Notes * Iker Scott RN - 02/09/2021 5:24 PM CDT Pt given d/c instructions and follow up information. Pt verbalized understanding. Pt is A&OX4 and ambulatory with steady gait and all belongings. NAD noted. D/c home * Iker Scott RN - 02/09/2021 4:26 PM CDT Patient here with chest pain off and on for years. When asked about shortness of breath, nausea, vomiting - patient responds sometimes I do, sometimes I don't. Patient not very forthcoming with information. Patient reports she came in today because people from her work told her she needed to get checked out. Patient does not appear in acute distress. Respirations are even and unlabored. NSR on t he monitor. VSS. Care to continue. * Ronni Gonzales MD - 02/09/2021 3:55 PM CDT CC: Chest Pain (x years, started hurting worse recently. pt reports that she was told that she needed to get checeked out by work. reports occasional SOB. denies nausea vomiting. ) , HPI: Sahra Parks is a 40 year old female who presents with history of anxiety, seizure disorder thyroid disease, no personal history of CAD though she notes a cousin who had heart disease she notes intermittent chest pain in the past ever had a stress test, notes a year of ongoing chest pain mild shortness of breath, she notes the pain greater on the left side is pleuritic no history of PE or DVT is not on blood thinners, does not smoke currently and does not use control. She notes thepain is comfortable at rest no recent trauma or fall. Pain location: Left lateral chest Duration/Timin year Modifying factors/Context: Pain worse with inspiration Severity: 5 /10 Past Medical History: Past Medical History: Diagnosis Date ??? Anemia ??? Anxiety ??? Asthma ??? Back problem ??? Benign hypertension no meds ??? Cholesterol serum increased ??? Epigastric pain ??? Headache(784.0) ??? Heart disease ??? History of conization of cervix 1997 ??? Hypertension ??? Hypothyroid ??? Lupus never confirmed on serology ??? Seizure disorder ??? Thyroid disease ??? UTI (urinary tract infection) Negative unless noted above Past Surgical History: Past Surgical History: Procedure Laterality Date ??? CERVICAL BIOPSY, CONE 1997 ??? Hernia Repair ??? Hernia Repair 2006 Negative unless noted above Med List: Current Facility-Administered Medications Medication Dose Route Frequency Provider Last Rate Last Admin ??? 0.9% NaCl injection 3 mL 3 mL Intracatheter q8h Ronni Gonzales MD And ??? 0.9% NaCl injection 1-10 mL 1-10 mL Intracatheter PRN Ronni Gonzales MD ??? nitroGLYCERIN (Nitrostat) tablet 0.4 mg 0.4 mg Sublingual q5 min PRN Ronni Gonzales MD Current Outpatient Medications Medication Sig Dispense Refill ??? calcium carbonate (TUMS) 500 MG chew tablet Take 1 Tab by mouth as needed. Indications: Heartburn ??? docusate sodium (COLACE) 100 MG capsule Take 1 Cap by mouth 2 times daily as needed for Constipation. 60 Cap 5 ??? FLUoxetine (PROZAC) 20 MG capsule Take 1 (one) capsule by mouth once daily Take one capsule by mouth once daily at bedtime. Take together with olanzapine. 30 capsule 0 ??? ibuprofen (MOTRIN) 600 MG tablet Take 1 Tab by mouth every 4 hours as needed for Pain. 120 1 ??? levothyroxine (SYNTHROID) 125 MCG tablet Take 125 mcg by mouth daily before breakfast. Dose increased 06/19/10 per pharmacy refill records ??? OLANZapine (ZYPREXA) 5 MG tablet Take 1 (one) tablet by mouth once daily Take one tablet by mouth once daily at bedtime. Take together with fluoxetine 20 mg capsule. 30 tablet 0 ??? ondansetron (ZOFRAN) 4 MG tablet Take 4 mg by mouth every 8 hours as needed. ??? polyethylene glycol 3350 (GLYCOLAX) powder Take 17 g by mouth once daily as needed for Constipation. 119 g 3 ??? Vit-Fe Fumarate-FA ( VITAMIN) 28-0.8 MG tablet Take 1 Tab by mouth daily. Med list reviewed and attached to chart Allergies: Allergies Allergen Reactions ??? Latex rash ??? Morphine Anaphylaxis ??? Sulfa Drugs Rash and Nausea and/or Vomiting ??? Magnesium Salicylate Patient stated that after administration she felt like she was having an anxiety attack and got very overheated Immunizations: Not applicable unless noted above Family Hx: Family History Problem Relation Name Age of Onset ??? Hypertension Mother ??? Asthma Mother ??? Hepatitis Mother C ??? Cancer - Breast Maternal Grandmother ??? Heart Disease Unknown both sides of families ??? Other Sister ovarian cysts Negative unless noted above Social Hx: Social History Socioeconomic History ??? Marital status: Single Spouse name: Not on file ??? Number of children: Not on file ??? Years of education: Not on file ??? Highest education level: Not on file Occupational History ??? Not on file Tobacco Use ??? Smoking status: Current Every Day Smoker Packs/day: 0.50 ??? Smokeless tobacco: Never Used Vaping Use ??? Vaping Use: Never used Substance and Sexual Activity ??? Alcohol use: No ??? Drug use: No ??? Sexual activity: Yes Other Topics Concern ??? Not on file Social History Narrative ??? Not on file History source: Patient, nursing notes, and EMS notes when applicable, unless noted above Hx/PE/ROS limited by: ROS: Constitutional: No fevers or chills Eye/ENT/Mouth: No visual changes, no epistaxis or sore throat Cardiovascular: no palpitations, no chest pain Respiratory: no stridor, no shortness of breath Gastrointestinal: no nausea, vomiting, diarrhea, no ab pain Geniturinary: No dysuria, no hematuria Skin: No acute rashes or edema Musculoskeletal: No acute joint swelling or decreased range of motion Neurological: No headache, no new numbness Psychiatric: No mood changes VS: BP 151/108 Pulse 85 Temp 98.3 ??F (36.8 ??C) (Oral) Resp 9 Ht 1.613 m (5' 3.5 ) SpO2 98% BMI 21.8 kg/m2 Physical Exam: Constitutional: well developed, well nourished Eye: normal conjunctivae, pupils equal and reactive ENT/Mouth: external ears clear, oral pharynx no swelling or exudates CV: regular rate and rhythm, no murmurs/rubs or gallops Respiratory: clear to auscultation bilaterally no wheezes/rhonchi/crackles GI: abdomen: soft nondistended, nontender x 4 quadrants : deferred Skin: dry, no rashes noted Musculoskeletal/Back: no ttp x 4 ext, back nontender midline Extremities: No cyanosis, no edema. DP pulses 2+ bilateral Neurological: CN II-XII no deficits, upper and lower extremity strength 5/5 bilateral Psych: Pt is alert and oriented x3 w good recall and normal affect Rectal: Deferred ED Course and Results: Pulse Ox Interpretation: Saturation: (%)99 Oxygen Delivery: Room air Interpretation: No hypoxia at this time. Rhythm strip interpretation: Sinus tachycardia Ventricular rate (bpm):101 ECG: Normal sinus rhythm, ventricular rate (bpm) 79 [place]: normal. OK and QRS intervals: normal ST segments: no acute st elevation or depressions No old noted Pertinent Labs: Labs Reviewed CBC W AUTO DIFFERENTIAL - Abnormal; Notable for the following components: Result Value MPV 9.3 (*) All other components within normal limits COMPREHENSIVE METABOLIC PANEL - Abnormal; Notable for the following components: Chloride 108 (*) CO2 21 (*) Anion Gap 7 (*) Bilirubin Total 0.1 (*) All other components within normal limits TROPONIN I - Normal TROPONIN I HCG URINE QUAL POCT NOTIFICATION TROPONIN I Images: XR CHEST PA AND LATERAL Result Date: 02/09/2021 EXAM: CHEST 2 VIEWS HISTORY: Chest pain COMPARISON: None FINDINGS: Standard two- view examination ofthe chest was obtained. Heart and mediastinal structures are within normal limits. There are no infiltrates effusions vascular congestion. Osseous structures are within normal limits. There is no evidence of active cardiopulmonary disease. *Reading Radiologist: Rm Flores on 02/09/2021 at 4:38 PM All imaging independently reviewed by Dr Gonzales Medical Decision Making Note: Differential Dx: DDx includes: Chest pain, coronary syndrome, anxiety Management: Management options include but not limited to : IV access and IV medications given. Case discussed with patient Data reviewed: All current, pertinent and timely studies (laboratory, imaging, and procedures) wereordered and results reviewed by Dr Gonzales unless otherwise noted. Triage notes and available nursing notes reviewed. Previous medical record reviewed when available. Repeat vital signs reviewed. PCP: No primary care provider on file. MDM: Patient non concerning chest pain greater than a year old a negative EKG negative troponin at recommend outpatient cardiac follow-up for stress test if continued symptoms Patient has no tachycardia at this time and is a PERC negative will discharge home without evaluation for thromboembolic disease Dispo: Discharge home Clinical Impression: 1. Atypical chest pain documented in this encounter Plan of Treatment Not on file documented as of this encounter Procedures Procedure Name Priority Date/Time Associated Diagnosis Comments CARDIAC EKG ORDER 02/10/2021 7:0 9 PM CDT XR CHEST 2VW STAT 02/09/2021 4:34 PM CDT Chest pain, unspecified type COMPREHENSIVE METABOLIC PANEL STAT 02/09/2021 4:28 PM CDT TROPONIN I STAT 02/09/2021 4:27 PM CDT CBC W AUTO DIFFERENTIAL STAT 02/09/2021 4:27 PM CDT EKG 12-LEAD STAT 02/09/2021 4:20 PM CDT Chest pain, unspecified type documented in this encounter Results * CARDIAC EKG ORDER (02/10/2021 7:09 PM CDT) Narrative 02/10/2021 7:09 PM CDT Ordered by an unspecified provider. Scanned Document CARDIAC SERVICES ORD ERABLES * XR CHEST PA AND LATERAL (02/09/2021 4:34 PM CDT) Anatomical Region Laterality Modality Chest Radiographic Yesi ging 02/09/2021 4:38 PM CDT Impressions 02/09/2021 4:38 PM CDT There is no evidence of active cardiopulmonary disease. *Reading Radiologist: Rm Flores on 02/09/2021 at 4:38 PM Narrative 02/09/2021 4:38 PM CDT EXAM: CHEST 2 VIEWS HISTORY: ??Chest pain COMPARISON: None FINDINGS: Standard two-view examination of the chest was obtained. Heart and mediastinal structures are within normal limits. There are no infiltrates effusions vascular congestion. Osseous structures are within normal limits. Procedure Note Rm Flores MD - 02/09/2021 EXAM: CHEST 2 VIEWS HISTORY: Chest pain COMPARISON: None FINDINGS: Standard two-view examination of the chest was obtained. Heart and mediastinal structures are within normal limits. There are no infiltrates effusions vascular congestion. Osseous structures are within normal limits. IMPRESSION There is no evidence of active cardiopulmonary disease. *Reading Radiologist: Rm Flores on 02/09/2021 at 4:38 PM Ronni Gonzales MD DIAGNOSTIC IMAGING O RDERABLES * (ABNORMAL) COMPREHENSIVE METABOLIC PANEL (02/09/2021 4:28 PM CDT) Glucose 80 70 - 105 mg/dL 02/09/2021 4:49 PM CDT [facility] Sodium 136 136 - 145 mmol/L 02/09/2021 4:49 PM CDT [facility] Potassium 4.5 3.5 - 5.1 mmol/L 02/09/2021 4:49 PM CDT [facility] Chloride 108(H) 98 - 107 mmol/L 02/09/2021 4:49 PM CDT [facility] CO2 21(L) 23 - 31 mmol/L 02/09/2021 4:49 PM CDT [facility] Calcium 8.8 8.4 - 10.4 mg/dL 02/09/2021 4:49 PM CDT [facility] Anion Gap 7(L) 8 - 18 mmol/L 02/09/2021 4:49 PM CDT [facility] BUN 16 7 - 18.7 mg/dL 02/09/2021 4:49 PM CDT [facility] Creatinine 0.89 0.57 - 1.11 mg/dL 02/09/2021 4:49 PM CDT [facility] Alkaline Phosphatase 42 40 - 150 U/L 02/09/2021 4:49 PM CDT [facility] ALT 24 0 - 61 U/L 02/09/2021 4:49 PM CDT [facility] AST 34 5 - 34 U/L 02/09/2021 4:49 PM CDT [facility] Protein Total 7.5 6.4 - 8.3 gm/dL 02/09/2021 4:49 PM CDT [facility] Albumin 4.1 3.5 - 5.2 gm/dL 02/09/2021 4:49 PM CDT [facility] Bilirubin Total 0.1(L) 0.2 - 1.2 mg/dL 02/09/2021 4:49 PM CDT [facility] eGFR by MDRD >60 >60 mL/min/1.7 3m2 02/09/2021 4:49 PM CDT [facility] eGFR by MDRD >60 >60 mL/min/1.7 3m2 02/09/2021 4:49 PM CDT [facility] Blood BLOOD SPECIMEN / Unknown Venipuncture / Unknown 02/09/2021 4:28 PM CDT 02/09/2021 4:28 PM CDT Ronni Gonzales MD LAB - CHEMISTRY [place] [facility] Organization Address City/State/ZIP Co de Phone Number [facility] [address] [place] [address] * (ABNORMAL) CBC W AUTO DIFFERENTIAL (02/09/2021 4:27 PM CDT) WBC 9.1 4.4 - 10.7 x10E9/L 02/09/2021 4:33 PM CDT [facility] WBC Corrected 02/09/2021 4:33 PM CDT [facility] RBC 4.75 3.80 - 5.20 x10E12/L 02/09/2021 4:33 PM CDT [facility] Hemoglobin 14.5 12.0 - 15.6 gm/dL 02/09/2021 4:33 PM CDT [facility] Hematocrit 42.9 35.9 - 45.5 % 02/09/2021 4:33 PM CDT [facility] MCV 90.3 80.7 - 98.3 fl 02/09/2021 4:33 PM CDT [facility] MCH 30.5 26.7 - 34.0 pg 02/09/2021 4:33 PM CDT [facility] MCHC 33.8 30.8 - 35.9 gm/dL 02/09/2021 4:33 PM CDT [facility] Platelet Count 304 153 - 416 x10E9/L 02/09/2021 4:33 PM CDT [facility] RDW-CV 13.6 12.1 - 14.9 % 02/09/2021 4:33 PM CDT [facility] MPV 9.3(L) 9.4 - 12.9 fl 02/09/2021 4:33 PM CDT [facility] Neutrophils % 52.6 44.0 - 73.0 % 02/09/2021 4:33 PM CDT [facility] Lymphocytes % 34.5 20.0 - 43.0 % 02/09/2021 4:33 PM CDT [facility] Monocytes % 7.9 5.0 - 13.0 % 02/09/2021 4:33 PM CDT [facility] Eosinophils % 3.9 0.0 - 6.0 % 02/09/2021 4:33 PM CDT [facility] Basophils % 0.8 0.0 - 2.0 % 02/09/2021 4:33 PM CDT [facility] Immature Granulocytes 0.3 0 - 1 % 02/09/2021 4:33 PM CDT [facility] Neutrophil Absolute 4.78 2.01 - 7.14 x10E9/L 02/09/2021 4:33 PM CDT [facility] Lymphocytes Absolute 3.13 1.07 - 3.94 x10E9/L 02/09/2021 4:33 PM CDT [facility] Monocytes Absolute 0.72 0.26 - 1.07 x10E9/L 02/09/2021 4:33 PM CDT [facility] Eosinophils Absolute 0.35 0 - 0.47 x10E9/L 02/09/2021 4:33 PM CDT [facility] Basophils Absolute 0.07 0 - 0.08 x10E9/L 02/09/2021 4:33 PM CDT [facility] Immature Granulocytes Absolute 0.03 0.00 - 0.06 x10E9/L 02/09/2021 4:33 PM CDT [facility] nRBC Auto 0 /100 WBC 02/09/2021 4:33 PM CDT [facility] Blood BLOOD SPECIMEN / Unknown Venipuncture / Unknown 02/09/2021 4:27 PM CDT 02/09/2021 4:27 PM CDT Ronni Gonzales MD LAB - HEMATOLOGY ORD ERABLES [facility] [address] [place] [address] * TROPONIN I (02/09/2021 4:27 PM CDT) Troponin I <0.010 <0.038 ng/mL 02/09/2021 4:53 PM CDT [facility] Blood BLOOD SPECIMEN / Unknown Venipuncture / Unknown 02/09/2021 4:27 PM CDT 02/09/2021 4:27 PM CDT Ronni Gonzales MD LAB - CHEMISTRY [place] Performing Organization Address [facility] de Phone Number [facility] [address] [place] [address] * EKG 12-LEAD (02/09/2021 4:20 PM CDT) Ventricular Rate 79 BPM [facility] Atrial Rate 79 BPM [facility] P-R Interval 124 ms [facility] QRS Duration ms 70 ms [facility] Q-T Interval ms 364 ms [facility] QTC Calculation (Bezet) 417 ms [facility] Calculated P [place] 64 degrees [facility] Calculated R [place] 72 degrees [facility] Calculated T [place] 55 degrees [facility] Interpretation EKG Normal sinus rhythm Normal ECG No previous ECGs available Confirmed by Johann Loomis ([id number]) on 02/10/2021 9:36:40 AM [facility] 02/09/2021 4:20 PM CDT 02/10/2021 9:36 AM CDT Ronni Gonzales MD ECG ORDERABLES Performing Organization Address [facility] Co de Phone Number [facility] documented in this encounter Visit Diagnoses Diagnosis Chest pain, unspecified type- Primary documented in this encounter Administered Medications Inactive Administered Medications - up to 3 most recent administrations Medication Order MAR Action Action Date Dose Rate Site 0.9% NaCl injection 1-10 mL 1-10 mL, Intracatheter, PRN, Other, peripheral line flush, Starting on Doris 02/09/21 at 1552, Until Doris 10/21/21 at 1829, Flush peripheral IV catheter with 1-10 mL of normal saline before and after medications and prn to clear blood from the line or to verify patency. 0.9% NaCl injection 3 mL 3 mL, Intracatheter, EVERY 8 HOURS, First dose on Doris 02/09/21 at 1630, Until Discontinued, Flush peripheral IV catheter with 3 mL of normal saline every 8 hours. nitroGLYCERIN (Nitrostat) tablet 0.4 mg 0.4 mg, Sublingual, EVERY 5 MIN PRN, Angina, Chest pain, 3 doses, Starting on Doris 02/09/21 at 1552, Until Doris 02/09/21 at 1829, Notify physician after 3 doses if chest pain not relieved. documented in this encounter Active and Recently Administered Medications Times are shown in CDT. Scheduled Medication Order 02/07/2021 02/08/2021 02/09/2021 0.9% NaCl injection 3 mL(Linked Group 1) 3 mL, Intracatheter, EVERY 8 HOURS, First dose on Doris 02/09/21 at 1630, Until Discontinued, Flush peripheral IV catheter with 3 mL of normal saline every 8 hours. 1630 (Due) PRN Medication Order 02/07/2021 02/08/2021 02/09/2021 0.9% NaCl injection 1-10 mL(Linked Group 1) 1-10 mL, Intracatheter, PRN, Other, peripheral line flush, Starting on Doris 02/09/21 at 1552, Until Doris 02/09/21 at 1829, Flush peripheral IV catheter with 1-10 mL of normal saline before and after medications and prn to clear blood from the line or to verify patency. nitroGLYCERIN (Nitrostat) tablet 0.4 mg 0.4 mg, Sublingual, EVERY 5 MIN PRN, Angina, Chest pain, 3 doses, Starting on Doris 02/09/21 at 1552, Until Doris 02/09/21 at 1829, Notify physician after 3 doses if chest pain not relieved. Linked Groups Order Group 1: SALINE LOCK, INSERT AND MAINTAIN (CANCELED) Routine, CONTINUOUS, Starting on Doris 02/09/21 at 1600, Until Specified, New collection And 0.9% NaCl injection 3 mLJump to med 3 mL, Intracatheter, EVERY 8 HOURS, First dose on Doris 02/09/21 at 1630, Until Discontinued, Flush peripheral IV catheter with 3 mL of normal saline every 8 hours. And 0.9% NaCl injection 1-10 mLJump to med 1-10 mL, Intracatheter, PRN, Other, peripheral line flush, Starting on Doris 02/09/21 at 1552, Until Doris 02/09/21 at 1829, Flush peripheral IV catheter with 1-10 mL of normal saline before and after medications and prn to clear blood from the line or to verify patency. documented in this encounter
--- OUTSIDE RECORDS SUMMARY | 2024-04-26 21:19 | XMS_ITS | Encounter Summary ---
Author Organization [facility] Health Address [address] [place] [address] Care Team Providers Care Signwriter Name Role Phone Echo Pollard MD Primary Care Provider [phone] David Alicea MD Unavailable Encounter Details Date Type Department Care Team (Latest Contact Info) Description 09/25/2023 Travel Social History Tobacco Use Types Packs/Day Years Used Date Smoking Tobacco: Every Day Cigarettes Smokeless Tobacco: Never Alcohol Use Standard Drinks/Week Comments No 0 (1 standard drink = 0.6 oz pur e alcohol) Sex and Gender Information Value Date Recorded Sex Assigned at Not on file Gender Identity Not on file Sexual Orientation Not on file documented as of this encounter Plan of Treatment Not on file documented as of this encounter Visit Diagnoses Not on filedocumented in this encounter Care Teams Signwriter Relationship Specialty Start Date End Date Echo Pollard MD [address] [place] [address] [address] [place] [id number] PCP - General Family Medicine 05/14/23 David Alicea MD [address] [place] [address] Neurology 05/14/23 documented as of this encounter
--- OUTSIDE RECORDS SUMMARY | 2024-04-26 21:19 | XMS_ITS | Encounter Summary ---
Author Organization [facility] Address [address] [place] [address] Care Team Providers Care Personal Insurance Advisor Name Role Phone Clinic, [facility] Primary Care Provider [phone] Encounter Details Date Type Department Care Team (Latest Contact Info) Description 02/08/2011 12:01 AM CDT - 02/08/2011 11:59 PM T Hospital Encounter [facility] MATERNAL/ EVALUATION UNIT [address] [place] [address] Jefferson Monroe MD [address] [place] [address] Obstetrics Discharge Disposition: Home or Self Care Social History Tobacco Use Types Packs/Day Years Used Date Smoking Tobacco: Every Day Cigarettes Alcohol Use Standard Drinks/Week Comments No 0 (1 standard drink = 0.6 oz pur e alcohol) Sex and Gender Information Value Date Recorded Sex Assigned at Not on file Gender Identity Not on file Sexual Orientation Not on file documented as of this encounter Medications at Time of Discharge Medication Sig Dispensed Refills Start Date End Date calcium carbonate (TUMS) 500 MG chew tabletIndications:Hea rtburn Take 1 Tab by mouth as needed. Indications: Heartburn 08/03/2010 docusate sodium (COLACE) 100 MG capsule Take 1 Cap by mouth 2 times daily as needed for Constipation. 60 Cap 5 09/14/2010 ibuprofen (MOTRIN) 600 MG tablet Take 1 Tab by mouth every 4 hours as needed for Pain. 120 1 01/16/2011 levothyroxine (SYNTHROID) 125 MCG tablet Take 125 mcg by mouth daily before breakfast. Dose increased 06/19/10 per pharmacy refill records ondansetron (ZOFRAN) 4 MG tablet Take 4 mg by mouth every 8 hours as needed. 07/10/2010 polyethylene glycol 3350 (GLYCOLAX) powder Take 17 g by mouth once daily as needed for Constipation. 119 g 3 01/04/2011 Vit-Fe Fumarate-FA ( VITAMIN) 28-0.8 MG tablet Take 1 Tab by mouth daily. acetaminophen (TYLENOL) 500 MG tablet Take 1,000 mg by mouth every 6 hours as needed. Maximum allowable Acetaminophen amount = 4 Grams / 24 hours. 08/03/2010 11/22/2020 oxycodone-acetaminoph en (PERCOCET) 5-325 MG tablet Take 1-2 Tabs by mouth every 4 hours as needed for Pain. 28 Tab 0 01/16/2011 11/22/2020 documented as of this encounter Plan of Treatment Not on file documented as of this encounter Visit Diagnoses Diagnosis Supervision of other high-risk (V23.89) ([facility]) Supervision of other high-risk documented in this encounter Care Teams Personal Insurance Advisor Relationship Specialty Start Date End Date Clinic, [facility] [address] [place] [address] PCP - General 07/06/10 11/21/20 documented as of this encounter
--- OUTSIDE RECORDS SUMMARY | 2024-04-26 21:19 | XMS_ITS | Encounter Summary ---
Author Organization [facility] Address [address] [facility] [place] [address] Care Team Providers Care Hand Rug Cleaner Name Role Phone Echo Pollard MD Primary Care Provider [phone] David Alicea MD Unavailable Reason for Visit * Reason Onset Date Comments Results 09/30/2023 Encounter Details Date Type Department Care Team (Late st Contact Info) Description 09/30/2023 Telephone [facility] Neurosciences [address] [place], [place] [id number] David Alicea MD [address] [place] [address] Results Social History Tobacco Use Types Packs/Day Years Used Date Smoking Tobacco: Every Day Cigarettes Smokeless Tobacco: Never Alcohol Use Standard Drinks/Week Comments No 0 (1 standard drink = 0.6 oz pur e alcohol) Sex and Gender Information Value Date Recorded Sex Assigned at Not on file Gender Identity Not on file Sexual Orientation Not on file documented as of this encounter Miscellaneous Notes * Telephone Encounter - Kin Stout - 10/09/2023 11:14 AM CDT Spoke to patient and reviewed results. Also, reminded to call central scheduling to schedule EEG and MRV brain, then we can schedule a follow up in clinic. * Telephone Encounter - Kin Stout - 09/30/2023 8:59 AM CDT Left voicemail to call back to go over results. * Telephone Encounter - Kin Stout - 09/30/2023 8:58 AM CDT ----- Message from David Alicea MD sent at 09/29/2023 9:03 PM CDT ----- Please let patient not MRI brain is essentially unremarkable documented in this encounter Plan of Treatment Not on file documented as of this encounter Visit Diagnoses Not on filedocumented in this encounter Care Teams Hand Rug Cleaner Relationship Specialty Start Date End Date Echo Pollard MD [facility] [place] [id number] PCP - General Family Medicine 05/14/23 David Alicea MD [address] [facility] [address] [place] [id number] Neurology 05/14/23 documented as of this encounter
--- OUTSIDE RECORDS SUMMARY | 2024-04-26 21:19 | XMS_ITS | Encounter Summary ---
Author Organization [facility] Health Address [address] [facility] [place] [address] Care Team Providers Care Certified Family Mediator Name Role Phone Unavailable Primary Care Provider Unavailabl e Encounter Details Date Type Department Care Team (Latest Contact Info) Description 11/22/2020 Travel Social History Tobacco Use Types Packs/Day Years Used Date Smoking Tobacco: Every Day Cigarettes Smokeless Tobacco: Never Alcohol Use Standard Drinks/Week Comments No 0 (1 standard drink = 0.6 oz pur e alcohol) Sex and Gender Information Value Date Recorded Sex Assigned at Not on file Gender Identity Not on file Sexual Orientation Not on file COVID-19 Exposure Response Date Recorded In the last month, have you been in contact with someone who was confirmed or suspected to have Coronavirus / COVID-19? No / Unsure 11/22/2020 4:59 PM CDT documented as of this encounter Plan of Treatment Not on file documented as of this encounter Visit Diagnoses Not on filedocumented in this encounter
--- OUTSIDE RECORDS SUMMARY | 2024-04-26 21:19 | XMS_ITS | Patient Health Summary ---
Author Organization [facility] Address [address] [place] [address] Care Team Providers Care Round Boner Name Role Phone Echo Pollard MD Primary Care Provider [phone] David Alicea MD Unavailable Note from [facility],non-owned Affiliates and Associated Physician Practices is amultiple site organization consisting of ambulatory clinics and hospital sitesin [place], [place], [place] and [place]. This disclosure is being madepursuant to the Care Everywhere program and may not contain all information available regarding this patient. Last updated 18.[facility] Allergies * Ciprofloxacin(Nausea and/or Vomiting,Vomiting) * Iodine(Other) * Latex(Unknown) * Magnesium Salicylate(Unknown) * Morphine(Anaphylaxis,Swelling,Other) -High Criticality * Sulfa Antibiotics(Nausea and/or Vomiting,Rash) -Medium Criticality * Sulfa Drugs(Rash,Nausea and/or Vomiting) -Low Criticality Medications * Be aware that medications may not be up to date on this document. Alwaysverify current medications with the patient. * levothyroxine (SYNTHROID) 125 MCG tablet Take 125 mcg by mouth daily before breakfast. Dose increased 06/19/10 per pharmacy refill records * ondansetron (ZOFRAN) 4 MG tablet(Started 07/10/2010) Take 4 mg by mouth every 8 hours as needed. * Vit-Fe Fumarate-FA ( VITAMIN) 28-0.8 MG tablet Take 1 Tab by mouth daily. * calcium carbonate (TUMS) 500 MG chew tablet(Started 08/03/2010) Take 1 Tab by mouth as needed. Indications: Heartburn * docusate sodium (COLACE) 100 MG capsule(Started 09/14/2010) Take 1 Cap by mouth 2 times daily as needed for Constipation. 5 refills left * polyethylene glycol 3350 (GLYCOLAX) powder(Started 01/04/2011) Take 17 g by mouth once daily as needed for Constipation. 3 refills left * ibuprofen (MOTRIN) 600 MG tablet(Started 01/16/2011) Take 1 Tab by mouth every 4 hours as needed for Pain. 1 refill left * FLUoxetine (PROZAC) 20 MG capsule(Started 11/22/2020) Take 1 (one) capsule by mouth once daily Take one capsule by mouth once daily at bedtime. Take together with olanzapine. * OLANZapine (ZYPREXA) 5 MG tablet(Started 11/22/2020) Take 1 (one) tablet by mouth once daily Take one tablet by mouth once daily at bedtime. Take together with fluoxetine 20 mg capsule. * ziprasidone (Geodon) 40 MG capsule(Started 10/18/2022) Take 1 (one) capsule by mouth * venlafaxine (Effexor) 75 MG tablet(Started 05/10/2023) * topiramate (Topamax) 100 MG tablet(Started 05/06/2023) * rizatriptan (Maxalt) 10 MG tablet(Started 10/07/2022) * rivaroxaban (Xarelto) 20 MG tablet(Started 11/29/2022) Take 1 (one) tablet by mouth * promethazine (Phenergan) 25 MG tablet(Started 06/13/2022) * ondansetron, disintegrating, (Zofran ODT) 8 MG tablet * nicotine (Nicoderm CQ) 14 MG/24HR patch Apply 1 patch every day by transdermal route for 14 days. * Mibelas 24 Fe 1-20 MG-MCG(24) tablet(Started 07/20/2022) * naltrexone (Revia) 50 MG tablet(Started 05/10/2023) * Multiple Vitamin (Daily-Maria Guadalupe) TABS(Started 06/12/2022) * montelukast (Singulair) 10 MG tablet(Started 09/20/2022) * metoclopramide (Reglan) 10 MG tablet(Started 05/10/2023) * meloxicam (Mobic) 7.5 MG tablet TK 1 T PO WITH FOOD QD * medroxyPROGESTERone (Depo-Provera) 150 MG/ML prefilled syringe(Started 06/13/2022) * Linzess 145 MCG capsule(Started 04/17/2023) * lidocaine (Lidoderm) 5 % patch(Started 12/17/2022) * levothyroxine (Synthroid) 150 MCG tablet(Started 05/05/2023) Take 1 (one) tablet by mouth once daily * levothyroxine (Synthroid) 175 MCG tablet(Started 05/10/2023) * levonorgestrel (Plan B One Step) 1.5 MG tablet(Started 08/02/2022) Take 1 (one) tablet by mouth as directed * lamoTRIgine (LaMICtal) 25 MG tablet(Started 05/11/2023) * ketoconazole (Nizoral) 2 % shampoo(Started 02/26/2023) * hydrOXYzine pamoate (Vistaril) 50 MG capsule(Started 05/11/2023) * hydrOXYzine HCl (Atarax) 50 MG tablet(Started 10/19/2022) Take 1 (one) tablet by mouth * HYDROcodone-acetaminophen ([place]) 5-325 MG tablet(Started 05/10/2023) * fluticasone propionate (Flonase) 50 MCG/ACT nasal spray(Started 04/23/2023) * fluconazole (Diflucan) 150 MG tablet(Started 06/06/2022) * vitamin D, ergocalciferol, (Drisdol) 1.25 MG ([id number] UT) capsule(Started 05/10/2023) * enoxaparin (Lovenox) 60 MG/0.6ML injection(Started 11/15/2022) * diazePAM (Valium) 5 MG tablet(Started 04/09/2023) * Focalin XR 20 MG capsule(Started 04/05/2023) * dexAMETHasone (Decadron) 6 MG tablet(Started 04/03/2023) * cyanocobalamin (Vitamin B-12) injection(Started 11/07/2022) Inject 1 mL every month by intramuscular route. * clopidogrel (plaVIX) 75 MG tablet(Started 10/19/2022) Take 1 (one) tablet by mouth * cloNIDine (Catapres) 0.2 MG tablet(Started 05/10/2023) * Allergy Relief Cetirizine 10 MG tablet(Started 06/05/2022) * Vraylar 1.5 MG capsule(Started 07/07/2022) * buPROPion SR 12hr (Wellbutrin-SR) 150 MG tablet(Started 05/10/2023) * uaxaeuslmb-xxjswrmxiugqu-ysejvqma (Fioricet) 50-325-40 MG tablet TK 1-2 TS PO Q 4-6 HOURS PRN * ALPRAZolam (Xanax) 1 MG tablet(Started 05/07/2023) * albuterol HFA (Proventil; Ventolin; Proair) 108 (90 Base) MCG/ACT inhaler (Started 06/13/2022) * acetaminophen-codeine (Tylenol #3) 300-30 MG tablet TK 1 TO 2 TS PO Q 4 TO 6 H PRN Active Problems Problem Noted Date Diagnosed Date MDD (major depressive disorder), single episode, moderate 11/22/2020 Seizure disorder 09/14/2010 Carpal tunnel syndrome on left 09/14/2010 SAB (spontaneous ) 07/06/2010 Asthma 07/06/2010 Status post umbilical hernia repair 07/06/2010 Tobacco use complicating or childbirth 07/06/2010 Encounter for health-related screening 1 Supervision of high-risk 06/22/2010 Lupus (systemic lupus erythematosus) 06/22/2010 h/o Severe pre-eclampsia, antepartum 06/22/2010 History of delivery, currently 06/22/2010 S/P cone biopsy of cervix 06/22/2010 Hypothyroid 06/22/2010 Marijuana abuse 06/22/2010 Anxiety 06/22/2010 GBS (group B streptococcus) UTI complicating pre gnancy 06/22/2010 Resolved Problems Problem Noted Date Diagnosed Date Resolved Date HTN (hypertension) 06/22/2010 1 Immunizations * Human Papilloma Virus Vaccine(Given 02/28/2009) * INFLUENZA(Given 01/16/2011) * TDAP (7yrs+)(Given 04/22/2009) Social History Tobacco Use Types Packs/Day Years [...] Comments Blood Pressure 109/80 05/14/2023 1:41 PM [employer] Pulse 86 05/14/2023 1:41 PM [employer] Temperature 36.5 ??C (97.7 ??F) 12/05/2021 8:23 PM CD T Respiratory Rate 16 05/14/2023 1:41 PM [employer] Oxygen Saturation 94% 12/05/2021 9:00 PM CDT Inhaled Oxygen Concentration 21% 01/15/2011 1 2:06 AM CDT Weight 62.6 kg (138 lb) 05/14/2023 1:41 PM [employer] Height 160 cm (5' 3 ) 05/14/2023 1:41 PM [employer] Body Mass Index 24.45 05/14/2023 1:41 PM [employer] Procedures * MRI BRAIN WWO CONTRAST(Performed 09/25/2023) Performed for Chronic migraine w/o aura w/o status migrainosus, not intractable * XR CHEST 1VW PORTABLE(Performed 12/05/2021) Performed for Altered mental status, unspecified altered mental status type * CT HEAD WO CONTRAST(Performed 12/05/2021) Performed for Altered mental status, unspecified altered mental status type * URINE DRUG SCREEN IMMUNOASSAY(Performed 12/05/2021) * DRUG SCREEN TOX LIMITED BLD PNL 3 INHOUSE(Performed 12/05/2021) * HCG BLOOD QUALITATIVE(Performed 12/05/2021) * TROPONIN I(Performed 12/05/2021) * PT-INR(Performed 12/05/2021) * MAGNESIUM BLOOD(Performed 12/05/2021) * LACTIC ACID BLOOD REFLEX TO REPEAT(Performed 12/05/2021) * C-REACTIVE PROTEIN(Performed 12/05/2021) * COMPREHENSIVE METABOLIC PANEL(Performed 12/05/2021) * CBC W AUTO DIFFERENTIAL(Performed 12/05/2021) * CARDIAC EKG ORDER(Performed 02/10/2021) * XR CHEST 2VW(Performed 02/09/2021) Performed for Chest pain, unspecified type * COMPREHENSIVE METABOLIC PANEL(Performed 02/09/2021) * CBC W AUTO DIFFERENTIAL(Performed 02/09/2021) * TROPONIN I(Performed 02/09/2021) * EKG 12-LEAD(Performed 02/09/2021) Performed for Chest pain, unspecified type * IMAGING/RADIOLOGY/XRAY RESULTS ORDER(Performed 01/18/2011) * CBC W AUTO DIFFERENTIAL(Performed 01/15/2011) * CBC W AUTO DIFFERENTIAL(Performed 01/14/2011) * BLOOD GASES CORD PATRICK(Performed 01/14/2011) * BLOOD GASES CORD ARTERIAL(Performed 01/14/2011) * GROSS + MICRO EXAM(Performed 01/14/2011) * GROSS + MICRO EXAM(Performed 01/14/2011) * DRUG SCREEN URINE TRIAGE PANEL(Performed 01/13/2011) * BLOOD TYPE VERIFICATION(Performed 01/12/2011) * TYPE + SCREEN PANEL(Performed 01/12/2011) * CBC W AUTO DIFFERENTIAL(Performed 01/12/2011) * URINALYSIS OBSTETRICS - POINT OF CARE(Performed 01/12/2011) * T4 FREE(Performed 01/11/2011) * TSH(Performed 01/11/2011) * GLUCOSE PROTEIN KETONE URINE - POINT OF CAR(Performed 01/11/2011) * LS RATIO AMNIOTIC FLUID(Performed 01/11/2011) * LUNG MATURITY(Performed 01/11/2011) * AMNIOCENTESIS W US GUIDANCE- MATURITY(Performed 01/11/2011) Performed for Supervision of high-risk , Lupus (systemic lupus erythematosus) ([facility]) * GLUCOSE PROTEIN KETONE URINE - POINT OF CAR(Performed 01/04/2011) * GLUCOSE PROTEIN KETONE URINE - POINT OF CAR(Performed 12/28/2010) * SONOGRAM - COMPLETE(Performed 12/28/2010) Performed for Supervision of high-risk * NON-STRESS TEST(Performed 12/21/2010) Performed for Supervision of high-risk , Lupus (systemic lupus erythematosus) ([facility]) * GLUCOSE PROTEIN KETONE URINE - POINT OF CAR(Performed 12/14/2010) * SONOGRAM - TRANSVAGINAL(Performed 12/07/2010) Performed for SAB (spontaneous ) ([facility]) * DNA ANTIBODY DOUBLE STRANDED(Performed 12/07/2010) * SS-B (SJOGREN'S) ANTIBODY(Performed 12/07/2010) * SS-A (SJOGREN'S) ANTIBODY(Performed 12/07/2010) * GLUCOSE PROTEIN KETONE URINE - POINT OF CAR(Performed 12/07/2010) * TSH(Performed 11/30/2010) * T4 FREE(Performed 11/30/2010) * URIC ACID BLOOD(Performed 11/30/2010) * LDH BLOOD(Performed 11/30/2010) * COMPREHENSIVE METABOLIC PANEL(Performed 11/30/2010) * CBC W AUTO DIFFERENTIAL(Performed 11/30/2010) * PROTEIN URINE TIMED QUANTITATIVE(Performed 11/30/2010) Performed for HTN (hypertension), h/o Severe pre-eclampsia, antepartum * CREATININE CLEARANCE URINE TIMED + BLOOD(Performed 11/30/2010) Performed for h/o Severe pre-eclampsia, antepartum * GLUCOSE PROTEIN KETONE URINE - POINT OF CAR(Performed 11/30/2010) * CBC W AUTO DIFFERENTIAL(Performed 11/08/2010) * RPR(Performed 11/08/2010) * TSH(Performed 11/08/2010) Performed for Supervision of other high-risk (HCC) * T4 FREE(Performed 11/08/2010) Performed for Supervision of other high-risk (HCC) * GLUCOSE CHALLENGE(Performed 11/08/2010) * GLUCOSE PROTEIN KETONE URINE - POINT OF CAR(Performed 11/08/2010) * SONOGRAM - COMPLETE(Performed 11/08/2010) Performed for Supervision of high-risk , Tobacco use complicating or childbirth * POTASSIUM BLOOD(Performed 10/26/2010) * TSH(Performed 10/26/2010) Performed for Supervision of high-risk , Hypothyroid * GLUCOSE PROTEIN KETONE URINE - POINT OF CAR(Performed 10/26/2010) * SONOGRAM - COMPLETE(Performed 10/04/2010) * COMPREHENSIVE METABOLIC PANEL(Performed 09/14/2010) * DRUG SCREEN URINE TRIAGE PANEL(Performed 09/14/2010) * URINALYSIS REFLEX TO MICROSCOPIC NO CULTURE(Performed 09/14/2010) * CHLAMYDIA + GC AMPLIFIED PROBE(Performed 09/14/2010) * CULTURE URINE(Performed 09/14/2010) * CBC W AUTO DIFFERENTIAL(Performed 09/14/2010) * T4 FREE(Performed 09/14/2010) * TSH(Performed 09/14/2010) * GLUCOSE PROTEIN KETONE URINE - POINT OF CAR(Performed 09/14/2010) * SONOGRAM - COMPLETE(Performed 2010) Performed for Supervision of high-risk , S/p cone biopsy of cervix * T4 FREE(Performed 08/03/2010) * TSH(Performed 08/03/2010) * GLUCOSE PROTEIN KETONE URINE - POINT OF CAR(Performed 08/03/2010) * CHLAMYDIA + GC AMPLIFIED PROBE(Performed 07/06/2010) * RPR(Performed 07/06/2010) * DRUG SCREEN URINE TRIAGE PANEL(Performed 07/06/2010) * GLUCOSE PROTEIN KETONE URINE - POINT OF CAR(Performed 07/06/2010) Results * MRI BRAIN WWO CONTRAST (09/25/2023 4:36 PM CDT) Anatomical Region Laterality Modality Head Magnetic Resonan ce 09/25/2023 5:03 PM CDT Impressions 09/26/2023 8:59 AM CDT IMPRESSION: Very minimal T2/FLAIR hyperintensities could be related to chronic migraines. No enhancing lesions are seen. There is significant paranasal sinus disease. Edited by Leticia Gomez on 09/26/2023 8:53 AM > Interpreting Provider: Satinder Conway MD on 09/26/2023 8:59 AM Narrative 09/26/2023 8:59 AM CDT PROCEDURE: ??MRI BRAIN WWO CONTRAST DATE/TIME OF EXAM: ??09/25/2023 4:41 PM CLINICAL INFORMATION: None relevant/not provided if blank. Indication: G43.709: Chronic migraine without aura, not intractable, without status migrainosus Additional History: COMPARISON: ??None. TECHNIQUE: ?? MRI of the brain was performed without and with contrast. CONTRAST: ?? GADOTERATE MEGLUMINE 0.5 MMOL/ML IV SSM SO:6 mL FINDINGS: No evidence of acute or chronic hemorrhage is identified. No evidence of acute cerebral infarction is seen. The ventricles are of normal size, shape, and morphology. No mass effect or midline shift is seen. Very minimal T2/FLAIR hyperintensities are suggested in the subcortical regions. No enhancing lesions are identified. The corpus callosum and sella appear normal. The posterior fossa, brainstem, and craniocervical junction appear normal. Mild paranasal sinus disease is suggested. Otherwise, the visualized portions of the orbits, paranasal sinuses, and mastoids appear normal. Normal flow voids are demonstrated in the carotid arteries and basilar artery. The calvarium and visualized cervical spine appear normal. Procedure Note Satinder Conway MD - 06/06/2024 PROCEDURE: MRI BRAIN WWO CONTRAST DATE/TIME OF EXAM: 09/25/2023 4:41 PM CLINICAL INFORMATION: None relevant/not provided if blank. Indication: G43.709: Chronic migraine without aura, not intractable, without status migrainosus Additional History: COMPARISON: None. TECHNIQUE: MRI of the brain was performed without and with contrast. CONTRAST: GADOTERATE MEGLUMINE 0.5 MMOL/ML IV SSM SO:6 mL FINDINGS: No evidence of acute or chronic hemorrhage is identified. No evidence of acute cerebral infarction is seen. The ventricles are of normal size, shape, and morphology. No mass effect or midline shift is seen. Very minimal T2/FLAIR hyperintensities are suggested in the subcorticalregions. No enhancing lesions are identified. The corpus callosum and sellaappear normal. The posterior fossa, brainstem, and craniocervical junctionappear normal. Mild paranasal sinus disease is suggested. Otherwise, the visualized portions of the orbits, paranasal sinuses, and mastoids appear normal. Normal flow voids are demonstrated in the carotid arteries and basilar artery. The calvarium and visualized cervical spine appear normal. IMPRESSION: Very minimal T2/FLAIR hyperintensities could be related to chronic migraines. No enhancing lesions are seen. There is significant paranasal sinus disease. Edited by Leticia Gomez on 09/26/2023 8:53 AM > Interpreting Provider: Satinder Conway MD on 09/26/2023 8:59 AM Min Nixon SALVADOR MR ORDERABLES * XR CHEST 1VW PORTABLE (12/05/2021 11:20 PM CDT) Anatomical Region Laterality Modality Chest Radiographic Yesi ging 12/06/2021 7:45 AM CDT Impressions 12/06/2021 7:45 AM CDT IMPRESSION: No acute airspace disease. > Interpreting Provider: Rolf De Guzman MD on 12/06/2021 7:45 AM Narrative 12/06/2021 7:45 AM CDT PROCEDURE: ??XR CHEST 1VW PORTABLE, DATE/TIME OF EXAM: ??12/05/2021 11:20 PM INDICATION: R41.82: Altered mental status, unspecified COMPARISON: 02/09/2021 FINDINGS: No focal consolidation, pneumothorax, effusion, or overt evidence of edema. Heart size is within normal limits. Procedure Note Rolf De Guzman MD - 12/06/2021 PROCEDURE: XR CHEST 1VW PORTABLE, DATE/TIME OF EXAM: 12/05/2021 11:20PM INDICATION: R41.82: Altered mental status, unspecified COMPARISON: 02/09/2021 FINDINGS: No focal consolidation, pneumothorax, effusion, or overt evidence ofedema. Heart size is within normal limits. IMPRESSION: No acute airspace disease. > Interpreting Provider: Rolf De Guzman MD on 12/06/2021 7:45 AM Salvatore Cabrera MD DIAGNOSTIC IMAGING O RDERABLES * CT HEAD NON CONTRAST - suspected intracranial hemorrhage (12/05/2021 11:11 PM CDT) Anatomical Region Laterality Modality Head Computed Tomogra phy 12/06/2021 7:01 AM CDT Impressions 12/06/2021 7:02 AM CDT IMPRESSION: Normal head CT. > Interpreting Provider: Rolf De Guzman MD on 12/06/2021 7:02 AM Narrative 12/06/2021 7:02 AM CDT PROCEDURE: ??CT HEAD WO CONTRAST, DATE/TIME OF EXAM: ??12/05/2021 11:12 PM INDICATION: R41.82: Altered mental status, unspecified COMPARISON: None. TECHNIQUE: CT of the head was performed without intravenous contrast. CT dose reduction technique was used, including Automated Exposure Control. CONTRAST: None. FINDINGS: No acute intracranial hemorrhage or loss of garduno white differentiation to suggest acute infarct. No midline shift or mass lesion. Globes intact. No evident fracture. The visualized paranasal sinuses and mastoid air cells are clear. Procedure Note Rolf De Guzman MD - 12/06/2021 PROCEDURE: CT HEAD WO CONTRAST, DATE/TIME OF EXAM: 12/05/2021 11:12 PM INDICATION: R41.82: Altered mental status, unspecified COMPARISON: None. TECHNIQUE: CT of the head was performed without intravenous contrast. CT dose reduction technique was used, including Automated ExposureControl. CONTRAST: None. FINDINGS: No acute intracranial hemorrhage or loss of garduno white differentiationto suggest acute infarct. No midline shift or mass lesion. Globes intact. No evident fracture. The visualized paranasal sinuses and mastoid air cells are clear. IMPRESSION: Normal head CT. > Interpreting Provider: Rolf De Guzman MD on 12/06/2021 7:02 AM Salvatore Cabrera MD CT ORDERABLES * (ABNORMAL) URINE DRUG SCREEN IMMUNOASSAY (12/05/2021 11:07 PM CDT) [facility] Amphetamines Screen Urine Not detected Not detected 12/05/2021 11:22 PM CDT [facility] Barbiturates Screen Urine Not detected Not detected 12/05/2021 11:22 PM CDT [facility] Benzodiazepines Screen Urine Not detected Not detected 12/05/2021 11:22 PM CDT [facility] Cannabinoids Screen Urine Detected(A) Not detected 12/05/2021 11:22 PM CDT [facility] Cocaine Screen Urine Not detected Not detected 12/05/2021 11:22 PM CDT [facility] Fentanyl Urine Not detected Not detected 12/05/2021 11:22 PM CDT [facility] Methadone Screen Urine Not detected Not detected 12/05/2021 11:22 PM CDT [facility] Opiate Screen Urine Not detected Not detected 12/05/2021 11:22 PM CDT [facility] Phencyclidine Screen Urine Not detected Not detected 12/05/2021 11:22 PM CDT [facility] Urine URINE / Unknown Collection / Unknown 12/05/2021 11:07 PM CDT 12/05/2021 11:07 PM CDT [facility] - 12/05/2021 11:22 PM CDT This drug screen is designed for MEDICAL purposes only. It is not to be used for legal purposes, including but not limited to worker's comp, police investigations, occupational issues, child custody, etc. ??Any positive result is only presumptive and must be confirmed with a separate confirmatory test ordered by the physician. Drug Screening Test Cutoff Values: AMPHETAMINES ?1000 ng/mL BARBITURATES ? 200 ng/mL BENZODIAZEPINES ?200 ng/mL CANNABINOIDS(THC) ?? 50 ng/mL COCAINE ?300 ng/mL FENTANYL ? 1 ng/mL METHADONE ?300 ng/mL OPIATES ?300 ng/mL PHENCYCLIDINE(PCP) ??25 ng/mL Salvatore Cabrera MD LAB - URINE CHEMISTR Y ORDERABLES Performing Organization Address [facility] de Phone Number [facility] [address] [place] [address] * LACTIC ACID BLOOD REFLEX TO REPEAT (12/05/2021 9:10 PM CDT) Lactic Acid 0.9 <=2 mmol/L 12/05/2021 9:35 PM CDT [facility] Blood BLOOD SPECIMEN / Unknown Venipuncture / Unknown 12/05/2021 9:10 PM CDT 12/05/2021 9:19 PM CDT Salvatore Cabrera MD LAB - CHEMISTRY ORDE RABLES Performing Organization Address [facility] de Phone Number [facility] [address] [place] [phone] * (ABNORMAL) DRUG SCREEN TOX LIMITED BLD PNL 3 INHOUSE (12/05/2021 9:10 PM CDT) Acetaminophen <3.0(L) 10.0 - 30.0 ug/mL 12/05/2021 9:39 PM CDT [facility] Ethanol <10.0 <10 mg/dL 12/05/2021 9:39 PM CDT [facility] Salicylate <5.0(L) 15.0 - 30.0 mg/dL 12/05/2021 9:39 PM CDT [facility] Blood BLOOD SPECIMEN / Unknown Venipuncture / Unknown 12/05/2021 9:10 PM CDT 12/05/2021 9:17 PM CDT Narrative -[facility] - 12/05/2021 9:39 PM CDT [facility] ACETAMINOPHEN COMMENT Critical values: 4 Hours Post Ingestion: Critical value ?? > 200 ??g/mL 12 Hours Post Ingestion: Critical value ??> ??50 ??g/mL For acute ingestion, please refer to Acetaminophen nomogram to determine the ??risk of toxicity ??based on time since ingestion and acetaminophen level (see link provided). Note the nomogram disclaimer. WARNING: Assessing the potential toxicity of an acetaminophen level on a standard risk nomogram must take into consideration many factors including any uncertainty of the time since ingestion or the possibility of other medications that may alter the peak level. Contact the [facility] [place] [facility] at or reserved for healthcare professionals to assist you in evaluating potentially toxic acetaminophen levels. Salvatore Cabrera MD LAB - CHEMISTRY KENDELL YOU Performing Organization Address [facility]/ZIP Co de Phone Number [facility] [address] [place] [phone] * TROPONIN I (12/05/2021 9:10 PM CDT) Only the most recent of2 resultswithin the time period is included. Troponin I <0.010 <0.038 ng/mL 12/05/2021 9:39 PM CDT [facility] Blood BLOOD SPECIMEN / Unknown Venipuncture / Unknown 12/05/2021 9:10 PM CDT 12/05/2021 9:17 PM CDT Salvatore Cabrera MD LAB - CHEMISTRY KENDELL YOU Performing Organization Address [facility] Co de Phone Number [facility] [address] [place] [address] * C-REACTIVE PROTEIN (12/05/2021 9:10 PM CDT) C-Reactive Protein <0.20 <=0.50 mg/dL 12/05/2021 9:40 PM CDT [facility] Blood BLOOD SPECIMEN / Unknown Venipuncture / Unknown 12/05/2021 9:10 PM CDT 12/05/2021 9:17 PM CDT Salvatore Cabrera MD LAB - CHEMISTRY ORDE RABLES Performing Organization Address [facility]/ZIP Co de Phone Number [facility] [address] [place] [address] * PT-INR (12/05/2021 9:10 PM CDT) PT 13.2 12.1 - 14.8 sec 12/05/2021 9:28 PM CDT -[facility] INR 1.0 0.9 - 1.1 12/05/2021 9:28 PM CDT [facility] Blood BLOOD SPECIMEN / Unknown Venipuncture / Unknown 12/05/2021 9:10 PM CDT 12/05/2021 9:17 PM CDT Narrative -[facility] - 12/05/2021 9:28 PM CDT Conventional Warfarin Anticoagulant Therapy: INR Reference Range: ??2.0-3.0 Intensive Warfarin Anticoagulant Therapy: INR Reference Range: ? 2.5-3.5 Salvatore Cabrera MD LAB - COAGULATION OR DERABLES Performing Organization Address City/[facility] Co de Phone Number [facility] [address] [place] [address] * (ABNORMAL) CBC W AUTO DIFFERENTIAL (12/05/2021 9:10 PM CDT) Only the most recent of8 resultswithin the time period is included. WBC 7.7 4.4 - 10.7 x10E9/L 12/05/2021 9:21 PM CDT -[facility] WBC Corrected 12/05/2021 9:21 PM CDT -[facility] RBC 4.08 3.80 - 5.20 x10E12/L 12/05/2021 9:21 PM CDT [facility] Hemoglobin 12.5 12.0 - 15.6 gm/dL 12/05/2021 9:21 PM CDT [facility] Hematocrit 34.7(L) 35.9 - 45.5 % 12/05/2021 9:21 PM CDT [facility] LABORATORY MCV 85.0 80.7 - 98.3 fl 12/05/2021 9:21 PM CDT [facility] MCH 30.6 26.7 - 34.0 pg 12/05/2021 9:21 PM CDT [facility] MCHC 36.0(H) 30.8 - 35.9 gm/dL 12/05/2021 9:21 PM CDT [facility] Platelet Count 286 153 - 416 x10E9/L 12/05/2021 9:21 PM CDT [facility] RDW-CV 12.0(L) 12.1 - 14.9 % 12/05/2021 9:21 PM CDT [facility] MPV 8.9(L) 9.4 - 12.9 fl 12/05/2021 9:21 PM CDT [facility] Neutrophils % 60.5 44.0 - 73.0 % 12/05/2021 9:21 PM CDT [facility] Lymphocytes % 27.9 20.0 - 43.0 % 12/05/2021 9:21 PM CDT [facility] Monocytes % 9.0 5.0 - 13.0 % 12/05/2021 9:21 PM CDT [facility] Eosinophils % 1.8 0.0 - 6.0 % 12/05/2021 9:21 PM CDT [facility] Basophils % 0.5 0.0 - 2.0 % 12/05/2021 9:21 PM CDT [facility] Immature Granulocytes 0.3 0 - 1 % 12/05/2021 9:21 PM CDT [facility] Neutrophil Absolute 4.65 2.01 - 7.14 x10E9/L 12/05/2021 9:21 PM CDT [facility] Lymphocytes Absolute 2.14 1.07 - 3.94 x10E9/L 12/05/2021 9:21 PM CDT [facility] Monocytes Absolute 0.69 0.26 - 1.07 x10E9/L 12/05/2021 9:21 PM CDT -[facility] Eosinophils Absolute 0.14 0 - 0.47 x10E9/L 12/05/2021 9:21 PM CDT -[facility] Basophils Absolute 0.04 0 - 0.08 x10E9/L 12/05/2021 9:21 PM CDT -[facility] Immature Granulocytes Absolute 0.02 0.00 - 0.06 x10E9/L 12/05/2021 9:21 PM CDT [facility] nRBC Auto 0 /100 WBC 12/05/2021 9:21 PM CDT [facility] Blood BLOOD SPECIMEN / Unknown Venipuncture / Unknown 12/05/2021 9:10 PM CDT 12/05/2021 9:17 PM CDT Salvatore Cabrera MD LAB - HEMATOLOGY ORD ERABLES [facility] [address] [place] [address] * (ABNORMAL) COMPREHENSIVE METABOLIC PANEL (12/05/2021 9:10 PM CDT) Only the most recent of4 resultswithin the time period is included. Glucose 94 70 - 105 mg/dL 12/05/2021 9:39 PM CDT [facility] Sodium 127(L) 136 - 145 mmol/L 12/05/2021 9:39 PM CDT [facility] Potassium 3.2(L) 3.5 - 5.1 mmol/L 12/05/2021 9:39 PM CDT [facility] Chloride 96(L) 98 - 107 mmol/L 12/05/2021 9:39 PM CDT [facility] CO2 18(L) 23 - 31 mmol/L 12/05/2021 9:39 PM CDT [facility] Calcium 8.7 8.4 - 10.4 mg/dL 12/05/2021 9:39 PM CDT -[facility] Anion Gap 13 8 - 18 mmol/L 12/05/2021 9:39 PM CDT [facility] BUN 3(L) 7 - 18.7 mg/dL 12/05/2021 9:39 PM CDT [facility] Creatinine 0.74 0.57 - 1.11 mg/dL 12/05/2021 9:39 PM CDT [facility] Alkaline Phosphatase 43 40 - 150 U/L 12/05/2021 9:39 PM CDT [facility] ALT 8 0 - 61 U/L 12/05/2021 9:39 PM CDT [facility] AST 16 5 - 34 U/L 12/05/2021 9:39 PM CDT [facility] Protein Total 5.9(L) 6.4 - 8.3 gm/dL 12/05/2021 9:39 PM CDT [facility] Albumin 3.7 3.5 - 5.2 gm/dL 12/05/2021 9:39 PM CDT [facility] Bilirubin Total 0.4 0.2 - 1.2 mg/dL 12/05/2021 9:39 PM CDT [facility] eGFR by CKD-EPI >90 >=90 mL/min/1.7 3 m2 12/05/2021 9:39 PM CDT [facility] Blood BLOOD SPECIMEN / Unknown Venipuncture / Unknown 12/05/2021 9:10 PM CDT 12/05/2021 9:17 PM CDT Salvatore Cabrera MD LAB - CHEMISTRY KENDELL YOU [facility] Organization Address City/State/ZIP Co de Phone Number [facility] [address] [place] [address] * (ABNORMAL) MAGNESIUM BLOOD (12/05/2021 9:10 PM CDT) Magnesium 1.5(L) 1.6 - 2.6 mg/dL 12/05/2021 9:39 PM CDT [facility] Blood BLOOD SPECIMEN / Unknown Venipuncture / Unknown 12/05/2021 9:10 PM CDT 12/05/2021 9:17 PM CDT Salvatore Cabrera MD LAB - CHEMISTRY KENDELL YOU [facility] [address] [place] [address] * HCG BLOOD QUALITATIVE (12/05/2021 9:10 PM CDT) HCG Qual Serum Negative Negative 12/05/2021 9:28 PM CDT [facility] Blood BLOOD SPECIMEN / Unknown Venipuncture / Unknown 12/05/2021 9:10 PM CDT 12/05/2021 9:17 PM CDT Salvatore Cabrera MD LAB - CHEMISTRY KENDELL YOU Performing Organization Address [facility]/ZIP Co de Phone Number [facility] [address] [place] [address] * CARDIAC EKG ORDER (02/10/2021 7:09 PM [...] Gonzales MD DIAGNOSTIC IMAGING O RDERABLES * EKG 12-LEAD (02/09/2021 4:20 PM CDT) Ventricular Rate 79 BPM [facility] Atrial Rate 79 BPM [facility] P-R Interval 124 ms [facility] QRS Duration ms 70 ms [facility] Q-T Interval ms 364 ms [facility] QTC Calculation (Bezet) 417 ms [facility] Calculated P Bruin 64 degrees [facility] Calculated R Bruin 72 degrees [facility] Calculated T Bruin 55 degrees [facility] Interpretation EKG Normal sinus rhythm Normal ECG No previous ECGs available Confirmed by Johann Loomis ([id number]) on 02/10/2021 9:36:40 AM [facility] 02/09/2021 4:20 PM CDT 02/10/2021 9:36 AM CDT Ronni Gonzales MD ECG ORDERABLES [facility] * IMAGING/RADIOLOGY/XRAY RESULTS ORDER (01/18/2011 5:55 PM CDT) Anatomical Region Laterality Modality Other Narrative Transcriptions Document, Scanned - 01/18/2011 5:55 PM CDT Scanned Document IMAGING * (ABNORMAL) BLOOD GASES CORD VENOUS (01/14/2011 12:45 AM CDT) pH Cord Venous 7.285 7.18 - 7.33 [facility] pCO2 Cord Venous 57.4(H) 43 - 55 mm Hg [facility] pO2 Cord Venous 17.3(L) 22 - 33 mm Hg [facility] Base Excess Cord Venous -1.2 -2.0 - 2.0 [facility] HCO3 Cord Venous 26.7 mmol/L [facility] Panic Value(s) Read Back By no panics [facility] Comment RT noted [facility] CORD BLOOD SPECIMEN / Unknown 01/14/2011 12:45 AM CDT 01/14/2011 12:58 AM CDT Aurora Esteves MD LAB - BLOOD GASES O LAZ Performing Organization Address [facility] de Phone Number [facility] [address] [place] [address] * BLOOD GASES CORD ARTERIAL (01/14/2011 12:45 AM CDT) pH Cord Arterial 7.287 7.16 - 7.30 [facility] pCO2 Cord Arterial 50.5 40 - 55 mm Hg [facility] pO2 Cord Arterial 17.5 12 - 20 mm Hg [facility] HCO3 Cord Arterial 23.6 mmol/L [facility] Base Excess Cord Arterial -3.6 -2.0 - 2.0 [facility] Panic Value(s) Read Back By no panicxiomara [facility] Comment RT noted [facility] CORD BLOOD SPECIMEN / Unknown 01/14/2011 12:45 AM CDT 01/14/2011 12:56 AM CDT Aurora Esteves MD LAB - BLOOD GASES O LAZ Performing Organization Address [facility] de Phone Number [facility] [address] [place] [address] * GROSS + MICRO EXAM (01/14/2011 12:20 AM CDT) Only the most recent of2 resultswithin the time period is included. Pathologist [facility] [place] Result CASE NUMBER [id number] Comment: ORDERING PHYSICIAN ??ELAINA MARQUEZ SPECIMEN TYPE ?Placenta 3rd Trimes Date ? 01/15/2011 Physician ?Yunier Schreiber Gross Description ? The specimen is received in one formalin-filled container, labeled with the patient's name Lucie Parks and no additional label. ??It consists of a 540 gram lee disc placenta with an attached segment of umbilical cord and membranes. ??The placental disc measures roughly 17 x 12 x 3 cm. ??The attached segment of umbilical cord is 28 cm long and up to 1.3 cm in diameter. ??The umbilical cord has three vessels, no knots, and no gross evidence of thrombosis. ??Cord insertion is marginal. ??The membranes are torn. The shortest length is 4 cm and the longest is 15 cm. ?? The membranes are semi-opaque, pink-vale, with a marginal insertion. ??The surface is glistening blue-vale with minimal subchorionic fibrin deposition. ??The maternal surface is unremarkable with intact cotyledons. ??Sectioned surfaces are likewise unremarkable. ??Linting Machine Operator sections are submitted in cassettes A-C. JF/vl Microscopic Exam ? Microscopic examination reveals a three vessel umbilical cord showing no evidence of funisitis or thrombosis. The chorioamniotic membranes show no evidence of inflammation, and meconium is not identified. The chorionic villi are small, mature, and well vascularized with no evidence of villitis or infarction. The decidua basalis and chorionic plate show no pathologic changes. GM/na Diagnosis ? I. ?Placenta -- ?Mature placenta, 540 grams -- ?Three vessel umbilical cord ?with no pathologic changes GM/na Seo Executive ? na Pathologist ?Noa Madrigal MD [place]. ?01/16/2011 1204 <1> CPT code ? 71759 MISCELLANEOUS SAMPLES / Unknown 01/14/2011 12:20 AM CDT 01/15/2011 10:41 AM CDT Historical Provider LAB - PATHOLOGY/C YTOLOGY ORDERABLES * DRUG SCREEN TRIAGE PANEL (01/13/2011 9:15 AM CDT) Only the most recent of3 resultswithin the time period is included. Phencyclidine Screen Urine NOT DETECTED 25 ng/dl Cutoff [facility] Benzodiazepines Screen Urine NOT DETECTED 300 ng/ml Cutoff [facility] Cocaine Screen Urine NOT DETECTED 300 ng/ml Cutoff [facility] Amphetamines Screen Urine NOT DETECTED 1000 ng/ml Cutoff [facility] Cannabinoids Screen Urine NOT DETECTED 50 ng/ml Cutoff [facility] Opiate Screen Urine NOT DETECTED 300 ng/ml Cutoff [facility] Barbiturates Screen Urine NOT DETECTED 300 ng/ml Cutoff [facility] URINE / Unknown 01/13/2011 9 :15 AM CDT 01/13/2011 9:25 AM CDT Edilma Stallings MD LAB - URINE CHEMISTRY ORDERABLES Performing Organization Address [facility] Co de Phone Number [facility] [address] [place] [address] * BLOOD TYPE VERIFICATION (01/12/2011 11:35 PM CDT) ABO Rh A Pos SEE BELOW [facility] Comment: Weak D testing is not performed at [facility] BLOOD SPECIMEN / Unknown 01/12/2011 11:35 PM CDT 01/13/2011 12:15 AM CDT Yunier Schreiber MD LAB - BLOOD BANK ORD ERABLES Performing Organization Address City/[facility] Co de Phone Number [facility] [address] [place] [address] * TYPE + SCREEN PANEL (01/12/2011 11:20 PM CDT) ABO Rh A Pos SEE BELOW [facility] Comment: Weak D testing is not performed at [facility] Antibody Screen Neg [facility] Previous History Check Done No historical blood type. ??Blood type confirmation needed prior to transfusion. [facility] BLOOD SPECIMEN / Unknown 01/12/2011 11:20 PM CDT 01/12/2011 11:59 PM CDT Edilma Stallings MD LAB - BLOOD BANK ORDERABLES Performing Organization Address City/[facility] Co de Phone Number [facility] [address] [place] [address] * URINALYSIS OBSTETRICS - POINT OF CARE (01/12/2011 9:15 PM CDT) Glucose UA negative Negative [facility] Bilirubin UA Negative [facility] PO [facility] TESTING Ketone UA negative Negative [facility] Specific [place] UA POCT 1.000 - 1.030 [facility] Blood UA Negative [facility] pH UA 5.0 - 8.0 pH units [facility] Protein UA negative Negative [facility] Urobilinogen UA 0.2 - 1.0 EU/dL [facility] Nitrite UA Negative [facility] Leukocyte UA Negative [facility] PO CT TESTING QC Verified Yes [facility] POC T TESTING Urine specimen (specimen) URINE / Unknown 01/12/2011 9:15 PM CDT Edilma Stallings MD LAB - POINT OF CARE ORDERABLES Performing Organization Address City/[facility] Co de Phone [place] [address] * TSH (01/11/2011 12:30 PM CDT) Only the most recent of6 resultswithin the time period is included. TSH 1.59 0.358 - 3.74 uIU/ml [facility] BLOOD SPECIMEN / Unknown 01/11/2011 12:30 PM CDT 01/11/2011 12:44 PM CDT Francheska Bishop MD LAB - CHEMISTRY KENDELL YOU Performing Organization Address City/[facility] Co de Phone Number [facility] [address] [place] [address] * T4 FREE (01/11/2011 12:30 PM CDT) Only the most recent of5 resultswithin the time period is included. T4 Free 1.11 0.65 - 1.34 ng/dl [facility] BLOOD SPECIMEN / Unknown 01/11/2011 12:30 PM CDT 01/11/2011 12:44 PM CDT Francheska Bishop MD LAB - CHEMISTRY KENDELL YOU [facility] [address] [place] [address] * GLUCOSE PROTEIN KETONE URINE - POINT OF CAR (01/11/2011 10:59 AM CDT) Only the most recent of11 resultswithin the time period is included. Glucose UA neg Negative [facility] Protein UA neg Negative [facility] Ketone UA neg Negative [facility] QC Verified yes Yes [facility] POC T TESTING Urine specimen (specimen) URINE / Unknown 01/11/2011 10:59 AM CDT Elaina Maruqez MD LAB - POINT OF CARE ORDERABLES Performing Organization Address City/[facility] Co de Phone [place] [address] * LS RATIO FLUID (01/11/2011 9:30 AM CDT) L/S Ratio 3.5 SEE BELOW [facility] Comment: Immature <=1.5 Transitional 1.6-1.9 Mature >=2.0 Color Fluid Pale Yellow [facility] Character Amnio Slightly Cloudy [facility] Gestational Age -unknown [facility] Volume Amnio 10 ml [facility] Interpretation L/S Ratio [facility] Comment: PLEASE NOTE - L/S Ratio correlates with gestational age only in normal pregnancies. ??Abnormalities of , such as Retroplacental Bleeding and Ruptured Membranes, Hypertensive Renal or Cardiovascular Disease, Class D, E, and F Diabetes, and Maternal Hypertension can accelerate L/S Ratio maturation. ??Conversely, delayed maturation of L/S Ratio can be caused by Erythroblastosis Fetalis, Diabetes Mellitus (Class A, B, or C), and Chronic Nonhypertensive Glomerulonephritis. AMNIOTIC FLUID SPECIMEN / Unknown 01/11/2011 9:30 AM CDT 01/11/2011 10:51 AM CDT Violeta Brooks MD LAB - BODY FLU ID ORDERABLES Performing Organization Address [facility] de Phone Number [facility] [address] [place] [address] * LUNG MATURITY (01/11/2011 9:30 AM CDT) FLM 47.7 SEE BELOW mg/g [facility] Comment: See Interpretation for Normals Color Fluid Pale Yellow [facility] Character Amnio Slightly Cloudy [facility] Gestational Age -unknown [facility] Volume Amnio 10 ml [facility] Interpretation [facility] Comment: ?FLM ? Immature ......... <= 39 mg/g ? Mature ......... >= 55 mg/g Results between 40 and 54 cannot be declared mature or immature and should be evaluated with caution. AMNIOTIC FLUID SPECIMEN / Unknown 01/11/2011 9:30 AM CDT 01/11/2011 10:50 AM CDT Violeta Brooks MD LAB - BODY FLU ID ORDERABLES Performing Organization Address [facility] de Phone Number [facility] [address] [place] [address] * AMNIOCENTESIS W US GUIDANCE- MATURITY (01/11/2011 9:10 AM CDT) Anatomical Region Laterality Modality Other 01/11/2011 9:10 AM CDT Narrative 01/11/2011 1:26 PM CDT ? [facility] ? Evaluation and Treatment Unit ?PHONE: ??FAX: Pat. Name: ?LUCIE PARKS. No: ?[id number] Study Date: ?? 01/11/2011 ??9:10am , Age: ? 1980, 30 Pregnancies: ?? 5, Para 2222 LMP: ?Unknown GA by 1st: ?37w6d GA Selected: ??37w6d (From Known E) DEVIN: ?01/26/2011 Referring MD: KIERA Musical Therapist: ??Nga Phillips RDMS Hist/Ind: ? Lupus/CHTN/Unknown LMP ?PreE w/ last ?Hypothyroidism, H/O PTD x 2 Heart Rate: 129 bpm Amniotic Fluid Index: 18.0cm (07.3-24.0) Biophysical Profile: 01/29 Breathin ?? Tone: 2 ?? NST: 2 Movement: ??2 ?? AFV: ??2 DOPPLER Umbilical - Mid Cord S/D ??1.94 CLINICAL SUMMARY Study Number: 9 A lee fetus is identified in cephalic presentation. ??The placenta is left lateral, Grade 2. ??The amniotic fluid volume is within normal limits. ?? TESTING The Biophysical profile score is 10/10. DOPPLER STUDIES: ?? The umbilical artery Doppler S/D ratio is 1.94, which is within normal limits for gestational age. ?? PROCEDURE: ?? Amniocentesis was performed under direct ultrasound guidance without complications. ??The placenta was not traversed; 8cc's of clear, straw-colored fluid were obtained and sent for L/S ratio and FLM studies. ??The heart rate was within normal limits post procedure. ?? IMPRESSION: ?? 1) Lee IUP at 37w6d 2) Reassuring testing 3) S/P amniocentesis RECOMMEND: ?? Continue testing as ordered until delivery. Thank you for allowing us the opportunity to care for your patient. ?? Violeta Brooks MD <Electronic Signature> ??01/11/2011 01:26pm Brook Velasco MD [facility] ORDERABLES * SONOGRAM - COMPLETE (12/28/2010 11:25 AM CDT) Only the most recent of4 resultswithin the time period is included. Anatomical Region Laterality Modality Other 12/28/2010 11:2 5 AM CDT Narrative 12/28/2010 2:48 PM CDT ? [facility] ? Evaluation and Treatment Unit ?PHONE: ??FAX: Pat. Name: ?LUCIE PARKS Pat. No: ?[id number] Study Date: ?? 12/28/2010 ??11:25am , Age: ? 1980, 30 Pregnancies: ?? 5, Para 0222 LMP: ?Unknown GA by 1st: ?35.9 weeks GA Selected: ??35.9 weeks (From Known E) DEVIN: ?01/26/2011 Referring ALICIA QURESHI Musical Therapist: ??Nga Phillips RDMS Hist/Ind: ? Hypothyroidism/H/O PTD x 2 ?PreE w/last preg/ H/O Cone Biopsy Heart Rate: 148.0 bpm Amniotic Fluid Index: 10.8 (07.7-24.9) Biophysical Profile: 01/29 Breathin ?? Tone: 2 ?? NST: 2 Movement: ??2 ?? AFV: ??2 CLINICAL SUMMARY Study Number: ??7 A lee fetus is identified in cephalic presentation. ??The placenta is left lateral, Grade 2. ??The amniotic fluid volume is within normal limits. ?? DOPPLER STUDIES: ?? The umbilical artery Doppler S/D ratio is 2.69, which is within normal limits for gestational age. ?? TESTING: ?? The BPP score is 10/10. ?? IMPRESSION: ?? 1) Lee IUP at 35w6d. ?? 2) Normal amniotic fluid volume and umbilical artery Doppler. ?? 3) Reassuring testing. ?? RECOMMEND: Continue current testing. ?? Thank you for allowing us the opportunity to care for your patient. ?? Yunier Schreiber MD <Electronic Signature> ??12/28/2010 02:48pm John Garrison MD [facility] ORDERABLE S * NON-STRESS TEST (12/21/2010 11:49 AM CDT) Anatomical Region Laterality Modality Other 12/21/2010 11:4 9 AM CDT Narrative 12/21/2010 1:34 PM CDT ? [facility] ? Evaluation and Treatment Unit ?PHONE: ??FAX: Pat. Name: ?LUCIE PARKS Pat. No: ?[id number] Study Date: ?? 12/21/2010 ??11:49am , Age: ? 1980, 30 Pregnancies: ?? 5, Para 2222 LMP: ?Unknown GA by 1st: ?34w6d GA by US: ? 34w6d GA Selected: ??34w6d (From First S) DEVIN: ?01/26/2011 Referring : KIERA Musical Therapist: ??Ena Cedeno RDMS Hist/Ind: ? H/O Cone,Lupus,Hypothayroidism, ?H/O PTL/PTD MEASUREMENTS & AGE ? GROWTH EVALUATION Measurement ??GA ? Range ? Srce %for GA Ratios ----- ---- ------- BPD ??8.9 cm 35w6d (89p6l-62k6v) Hadl BPD 64% FL/BPD 0.77 (0.71 - 0.87) HC ??30.9 cm 34w3d (74s0v-05r1f) Hadl HC ??44% FL/AC ??0.22 (0.20 - 0.24) AC ??30.8 cm 34w5d (49w9a-33s8c) Hadl AC ??48% HC/AC ??1.00 (0.94 - 1.13) FL ?? 6.8 cm 35w1d (30m0q-67s2m) Hadl FL ??54% CI ? 0.84 (0.70 - 0.86) HL ?? 5.9 cm 34w0d (77q7i-87z7a) Edmund HL ??36% GA for sonogram 34w6d (29e9o-63l0g) ?? Weight Estimate: based on (HL,BPD,HC,AC,FL) Avg ? Weight: 2545 gm (1843-2397) Hadlo ? : 5lbs, 9oz ? Normal: 2400 gm (1841- 3060) Brenn ? Wt% ? 59% for 34.9 wks Heart Rate: 131 bpm Amniotic Fluid Index: 10.9cm (07.9-24.9) Biophysical Profile: 01/29 Breathin ?? Tone: 2 ?? NST: 2 Movement: ??2 ?? AFV: ??2 DOPPLER Umbilical - Mid Cord S/D ??2.38 CLINICAL SUMMARY Study Number: ??6 A lee fetus is identified in cephalic presentation. ??The measurements today are consistent with appropriate growth compared to previous examination. ??The DEVIN selected is based on a prior ultrasound examination. ??The amniotic fluid volume is within normal limits. ??The placenta is left lateral, Grade 2. ??No major malformations are seen. ??The patient was advised that ultrasound does not allow detection of all structural or chromosomal abnormalities. ?? TESTING The umbilical artery Doppler S/D ratio is 2.38, which is within normal limits for gestational age. ?? The biophysical profile is 01/29. IMPRESSION: ?? 1) Lee IUP at 34w6d. 2) Reassuring fluid, Doppler and biophysical assessments 3) Appropriate interval growth. ?? 4 No major malformations are seen today. ?? RECOMMEND: Continue antepartum testing as ordered. Thank you for allowing us the opportunity to care for your patient. ?? Ave Mobley MD <Electronic Signature> ??12/21/2010 01:34pm Elaina Marquez MD [facility] ORDERABLES * SONOGRAM - TRANSVAGINAL (12/07/2010 1:17 PM CDT) Anatomical Region Laterality Modality Other 12/07/2010 1:17 PM CDT Narrative 12/14/2010 12:38 PM CDT ? [facility] ? Evaluation and Treatment Unit ?PHONE: ??FAX: Pat. Name: ?LUCIE PARKS Pat. No: ?[id number] Study Date: ?? 12/14/2010 ??10:36am , Age: ? 1980, 30 Pregnancies: ?? 5, Para 2222 LMP: ?Unknown GA by 1st: ?33w6d GA Selected: ??33w6d (From Known E) DEVIN: ?01/26/2011 Referring MD: KIERA Musical Therapist: ??Valerie Jackson RN, RDMS Hist/Ind: ? Lupus/ Hypothyroid ?Hx of PTL/PTD ?Hx of Cone Biopsy Cervical Length: ??3.3 cm Amniotic Fluid Index: 13.7cm (08.1-24.8) Biophysical Profile: 01/29 Breathin ?? Tone: 2 ?? NST: 2 Movement: ??2 ?? AFV: ??2 DOPPLER Umbilical - Mid Cord S/D ??2.10 CLINICAL SUMMARY Study Number: 5 A lee fetus is identified in cephalic presentation. ??The placenta is left lateral, Grade 3. ??The amniotic fluid volume is within normal limits. ??BPP score is 10/10. Umbilical arterial Doppler studies were within normal limits for gestational age. TRANSVAGINAL ULTRASOUND: ?? The transvaginal cervical length measures 3.2cm with Y shaped cervical canal. IMPRESSION: Reassuring testing. Cervix normal for gestational age. RECOMMEND: Continue testing as ordered. No further measurements of cervical length. Violeta Brooks MD <Electronic Signature> ??12/14/2010 12:38pm John Garrison MD [facility] ORDERABLE S * SS-B ANTIBODY (12/07/2010 11:20 AM CDT) SS-B Antibody <0 SEE BELOW EU [facility] Comment: <20 ?? Negative 20-25 Borderline Positive >25 ?? Positive Interpretatoon Autoimmune Antibody [facility] Comment: ? Borderline results have been retested. ??Framing Carpenter states ? that if results are still borderline, the test sample has ? no significant antibodies. BLOOD SPECIMEN / Unknown 12/07/2010 11:20 AM CDT 12/07/2010 12:58 PM CDT Elaina Marquez MD LAB - CHEMISTRY KENDELL [employer] [facility] [employer] Performing Organization Address [facility] de Phone Number [facility] [address] [place] [id number] * SS-A ANTIBODY (12/07/2010 11:20 AM CDT) SS-A Antibody 0.77 SEE BELOW [facility] Comment: <20 ?? Negative 20-25 Borderline Positive >25 ?? Positive Interpretatoon Autoimmune Antibody [facility] Comment: ? Borderline results have been retested. ??Framing Carpenter states ? that if results are still borderline, the test sample has ? no significant antibodies. BLOOD SPECIMEN / Unknown 12/07/2010 11:20 AM CDT 12/07/2010 12:58 PM CDT Elaina Marquez MD LAB - CHEMISTRY KENDELL [facility] Performing Organization Address [facility] de Phone Number [facility] [address] [place] [phone] * DNA ANTIBODY DOUBLE STRAND (12/07/2010 11:20 AM CDT) dsDNA Antibody 1.30 SEE BELOW IU [facility] Comment: <25 ? Negative 25-30 ?? Borderline Positive 30-60 ?? Low Positive 60-200 ??Positive >200 ?Strong Positive Comment dsDNA [facility] Comment: ? dsDNA antibodies are screened using an AMY assay. ??Positive ? results are reflexed to titer by IFA. BLOOD SPECIMEN / Unknown 12/07/2010 11:20 AM CDT 12/07/2010 12:58 PM CDT Elaina Marquez MD LAB - HEMATOLOGY ORD ERABLES Performing Organization Address [facility] Co de Phone Number [facility] [address] [place] [phone] * URIC ACID BLOOD (11/30/2010 10:30 AM CDT) Uric Acid 3.9 3.0 - 8.5 mg/dl [facility] BLOOD SPECIMEN / Unknown 11/30/2010 10:30 AM CDT 11/30/2010 11:08 AM CDT Sabrina Pride MD LAB - CHEMISTR Y ORDERABLES Performing Organization Address [facility] de Phone Number [facility] [address] [place] [phone] * PROTEIN URINE TIMED QUANTITATIVE (11/30/2010 10:30 AM CDT) Volume 24 Hour Urine 1480 ml [facility] Protein 24 Hour Urine 153.9 42 - 225 mg/24hr [facility] URINE SPECIMEN COLLECTION, 24 HOURS / Unknown 11/30/2010 10:30 AM CDT 11/30/2010 11:16 AM CDT Roberto Serrano MD LAB - URINE CHEMISTR Y ORDERABLES Performing Organization Address [facility] Co de Phone Number [facility] [address] [place] [phone] * LDH BLOOD (11/30/2010 10:30 AM CDT) LDH 127 105 - 333 U/L [facility] BLOOD SPECIMEN / Unknown 11/30/2010 10:30 AM CDT 11/30/2010 11:08 AM CDT Sabrina Pride MD LAB - CHEMISTR Y ORDERABLES Performing Organization Address [facility] Co de Phone Number [facility] [address] [place] [phone] * CREATININE CLEARANCE URINE TIMED (11/30/2010 10:30 AM CDT) Creatinine 0.41 0.5 - 1.3 mg/dl [facility] Creatinine Urine 66.30 mg/dl [facility] Volume 24 Hour Urine 1407 ml/24 Hr [facility] Creatinine 24 Hour Urine 981.2 800 - 1800 mg/24hr [facility] Creatinine Clearance 158 85 - 125 ml/min [facility] URINE SPECIMEN COLLECTION, 24 HOURS / Unknown 11/30/2010 10:30 AM CDT 11/30/2010 11:09 AM CDT John Garrison MD LAB - URINE C HEMISTRY ORDERABLES Performing Organization Address City/[facility]/ZIP Co de Phone Number [facility] [address] [place] [address] * RPR (11/08/2010 1:45 PM CDT) Only the most recent of2 resultswithin the time period is included. Pathologist [facility] [place] RPR Non-Reacti ve Non Reactive [facility] BLOOD SPECIMEN / Unknown 11/08/2010 1:45 PM CDT 11/08/2010 4:23 PM CDT John Garrison MD LAB - END FINDER FORMING DEPARTMENT RY ORDERABLES Performing Organization Address City/[facility] Co de Phone Number [facility] [address] [place] [phone] * GLUCOSE CHALLENGE (11/08/2010 1:45 PM CDT) Pathologist [facility] Glucose Challenge 76 mg/dl [facility] Glucose Challenge Time 1345 [facility] BLOOD SPECIMEN / Unknown 11/08/2010 1:45 PM CDT 11/08/2010 4:22 PM CDT John Garrison MD LAB - END FINDER FORMING DEPARTMENT RY ORDERABLES Performing Organization Address City/[facility] Co de Phone Number [facility] [address] [place] [address] * POTASSIUM BLOOD (10/26/2010 12:30 PM CDT) Pathologist [facility] Potassium 4.1 3.5 - 5.1 mmol/L [facility] BLOOD SPECIMEN / Unknown 10/26/2010 12:30 PM CDT 10/26/2010 2:32 PM CDT John Garrison MD LAB - END FINDER FORMING DEPARTMENT RY ORDERABLES Performing Organization Address [facility] Co de Phone Number [facility] [address] [place] [address] * URINALYSIS ROUTINE AUTO (09/14/2010 11:45 AM CDT) Source Clean Catch [facility] Color UA Yellow [facility] Character UA Clear [facility] Glucose UA NEGATIVE NEGATIVE mg/dl [facility] Bilirubin UA NEGATIVE NEGATIVE [facility] Ketone UA NEGATIVE NEGATIVE mg/dl [facility] Specific [place] UA 1.010 1.003 - 1.030 [facility] Blood UA NEGATIVE NEGATIVE [facility] pH UA 6.5 5.0 - 9.0 [facility] Protein UA NEGATIVE NEGATIVE-TR URBAN mg/dl [facility] Urobilinogen UA 0.2 0.2 - 1.0 Debbie Units/dl [facility] Nitrite UA NEGATIVE NEGATIVE [facility] Leukocyte UA NEGATIVE NEGATIVE [facility] URINE SPECIMEN OBTAINED BY CLEAN CATCH PROCEDURE / Unknown 09/14/2010 11:45 AM CDT 09/14/2010 12:09 PM CDT Roberto Serrano MD LAB - URINALYSIS ORD ERABLES Performing Organization Address [facility] de Phone Number [facility] [address] [place] [address] * CHLAMYDIA + GC DNA PROBE AMPLIFIED (09/14/2010 11:45 AM CDT) Only the most recent of2 resultswithin the time period is included. Chlamydia trachomatis Amplified Probe NEGATIVE [facility] GC Amplified Probe NEGATIVE [facility] Comment Amplified Probe [facility] Comment: Comments and Normal Ranges for Component ??Amplified Probe Comment Results based on detection/no detection of ribosomal RNA by amplified method. ENTIRE ENDOCERVIX / Unknown 09/14/2010 11:45 AM CDT 09/14/2010 11:58 AM CDT Narrative Resulting Agency Comment Performed By [facility] ? [address] ? [place] [address] Roberto Serrano MD LAB - MICROBIOLOGY O LAZ Performing Organization Address [facility] de Phone Number [facility] [address] [place] [address] * CULTURE URINE (09/14/2010 11:45 AM CDT) Result [facility] Comment: Final CULTURE No Growth (<1000 CFU/mL) URINE SPECIMEN OBTAINED BY CLEAN CATCH PROCEDURE / Unknown 09/14/2010 11:45 AM CDT 09/14/2010 12:09 PM CDT Narrative Resulting Agency Comment Performed By [facility];[address];[place] [address] Roberto Serrano MD LAB - MICROBIOLOGY O LAZ Performing Organization Address [facility] de Phone Number [facility] [address] [place] [address] Care Teams Round Boner Relationship Specialty Start Date End Date Echo Pollard MD [address] [place] [address] [address] [place] [address] PCP - General Family Medicine 05/14/23 David Alicea MD [address] [place] [address] Neurology 05/14/23
--- OUTSIDE RECORDS SUMMARY | 2024-04-26 21:19 | XMS_ITS | Referral Summary ---
Author Organization [facility] Address [address] [facility] [place] [address] Care Team Providers Care Document Scanner Name Role Phone Echo Pollard MD Primary Care Provider [phone] David Alicea MD Unavailable Source Comments [facility],non-owned Affiliates and Associated Physician Practices is amultiple site organization consisting of ambulatory clinics and hospital sitesin [place], [place], [place] and [place]. This disclosure is being madepursuant to the Care Everywhere program and may not contain all information available regarding this patient. Last updated 18.[facility] Allergies Active Allergy Reactions Criticality Noted Date [...] tablet by mouth 10/19/2022 Active HYDROcodone-aceta minophen ([place]) 5-325 MG tablet 05/10/2023 Active fluticasone propionate (Flonase) 50 MCG/ACT nasal spray 04/23/2023 Active fluconazole (Diflucan) 150 MG tablet 06/06/2022 Active vitamin D, ergocalciferol, (Drisdol) 1.25 MG (13001 UT) capsule 05/10/2023 Active enoxaparin (Lovenox) 60 [...] Transfer of Care (MD Hemanth); Co Management [facility] Problem Noted Date Diagnosed Date MDD (major [...] ?triploidy with Dr. Alejandro, D&C done at [facility]; the other due to low hormone [...] Overview (07/06/2010): With mesh Dr. Flynn at [facility] Tobacco use complicating or childbirth 07/06/2010 [...] Vaccine 02/28/2009 INFLUENZA 01/16/2011 TDAP (7yrs+) 04/22/2009 Social History Tobacco Use Types Packs/Day Years [...] Comments Blood Pressure 109/80 05/14/2023 1:41 PM PERSONAL ASSISTANT Pulse 86 05/14/2023 1:41 PM PERSONAL ASSISTANT Temperature 36.5 ??C (97.7 ??F) 12/05/2021 8:23 PM CD T Respiratory Rate 16 05/14/2023 1:41 PM PERSONAL ASSISTANT Oxygen Saturation 94% 12/05/2021 9:00 PM CDT Inhaled Oxygen Concentration 21% 01/15/2011 1 2:06 AM CDT Weight 62.6 kg (138 lb) 05/14/2023 1:41 PM PERSONAL ASSISTANT Height 160 cm (5' 3 ) 05/14/2023 1:41 PM PERSONAL ASSISTANT Body Mass Index 24.45 05/14/2023 1:41 PM PERSONAL ASSISTANT Plan of Treatment Not on file Advance Directives * FULL RESUSCITATION (Latest Code Status on File) Date Activated Date Inactivated Comments 01/12/2011 10:41 PM 01/17/2011 1:49 AM Care Teams Document Scanner Relationship Specialty Start Date End Date Echo Pollard MD [address] [place] [address] [address] [place] [address] PCP - General Family Medicine 05/14/23 David Alicea MD [address] [facility] [address] [place] [phone] Neurology 05/14/23
--- OUTSIDE RECORDS SUMMARY | 2024-04-26 21:19 | XMS_ITS | Encounter Summary ---
Author Organization [facility] Address [address] [place] [address] Care Team Providers Care Art Gilder Name Role Phone Echo Pollard MD Primary Care Provider [phone] David Alicea MD Unavailable Encounter Details Date Type Department Care Team (Latest Contact Info) Description 08/28/2023 Travel Social History Tobacco Use Types Packs/Day [...] on filedocumented in this encounter Care Teams Art Gilder Relationship Specialty Start Date End Date Echo Pollard MD [address] [place] [address] [address] [place] [id number] PCP - General Family Medicine 05/14/23 David Alicea MD [address] [place] [address] Neurology 05/14/23 documented as of this encounter
--- OUTSIDE RECORDS SUMMARY | 2024-04-26 21:19 | XMS_ITS | Encounter Summary ---
Author Organization [facility] Address [address] [place] [address] Care Team Providers Care Extra Hand Name Role Phone Unavailable Primary Care Provider Unavailabl e Reason for Visit * Reason Comments Syncope Near syncopal epsiod e with N/V, states she is feeling better now Encounter Details Date Type Department Care Team (Late st Contact Info) Description 01/23/2021 6:29 PM CDT - 01/23/2021 6:33 PM CDT Emergency ER at [facility] [address] [place] [address] Dizziness Discharge Disposition: Left Against Medical Advice/Discontinued Care Social History Tobacco Use Types Packs/Day [...] Sign Reading Time Taken Comments Blood Pressure 143/96 01/23/2021 6:00 PM CDT Pulse 84 01/23/2021 6:00 PM CDT Temperature 36.8 ??C (98.3 ??F) 01/23/2021 6:00 PM CD T Respiratory Rate 18 01/23/2021 6:00 PM CDT Oxygen Saturation 100% 01/23/2021 6:00 PM CDT Inhaled Oxygen Concentration - - Weight 56.7 kg (125 lb) 01/23/2021 6:00 PM CDT Height 165.1 cm (5' 5 ) 01/23/2021 6:00 PM CDT Body Mass Index 20.8 01/23/2021 6:00 PM CDT documented in this encounter Medications at Time [...] as of this encounter ED Notes * Ashia Lam RN - 01/23/2021 6:31 PM CDT Pt states that she does not want to wait to see provider in back. Pt reports she is feeling better and is leaving AMA. Papers signed * Rosemarie Rocha PA-C - 01/23/2021 5:49 PM CDT RME Note CC: Syncope (Near syncopal epsiode with N/V, states she is feeling better now) Provider in Triage HPI: Sahra Parks is a 40 year old female who presents with CP/dizziness. Stated that she was getting her nails done when she began to have CP, dizziness/near-syncope, and n/v. EMS was called who did EKG there and told her it looked OK. Patient refused EMS transport. Noted that most of her symptoms have resolved - still feels somewhat dizzy. Denies cardiac history. Review of Systems: Primary System Noted in HPI Constitutional: No fevers or chills Psychiatric: No mood changes Limited Chart History: Past Medical History: Diagnosis Date ??? Anemia ??? Anxiety ??? Asthma ??? Back problem ??? Benign hypertension no meds ??? Cholesterol serum increased ??? Epigastric pain ??? Headache(784.0) ??? Heart disease ??? History of conization of cervix 1997 ??? Hypertension ??? Hypothyroid ??? Lupus never confirmed on serology ??? Seizure disorder ??? Thyroid disease ??? UTI (urinary tract infection) Past Surgical History: Procedure Laterality Date ??? CERVICAL BIOPSY, [place] 1997 ??? Hernia Repair ??? Hernia Repair 2006 No current facility-administered medications for this encounter. Current Outpatient Medications Medication Sig Dispense Refill [...] tablet Take 1 Tab by mouth daily. Allergies Allergen Reactions ??? Latex rash ??? Morphine Anaphylaxis ??? Sulfa Drugs Rash and Nausea and/or Vomiting ??? Magnesium Salicylate Patient stated that after administration she felt like she was having an anxiety attack and got very overheated PCP: No primary care provider on file. (Above may be pending completion) VS: BP 143/96 Pulse 84 Temp 98.3 ??F (36.8 ??C) (Oral) Resp 18 Ht 1.651 m (5' 5 ) Wt 56.7 kg (125 lb) SpO2 100% BMI 20.8 kg/m2 Pertinent Physical Findings: Constitutional: WDWN Head: Head normocephalic, atraumatic Eyes: conjunctiva clear ENT: no rhinorrhea Neck: neck supple, no nuchal rigidity Resp: respirations even and unlabored, lungs clear bilaterally CV: Heart RRR, no m/c/r/g Abd: nondistended Skin: warm, dry Neuro: A&o x 3, CN 2-12 grossly intact bilat Psych: Normal affect MDM: I have reviewed all lab and imaging resulted ordered during this visit and available at the time ofthis note. Triage notes and available nursing notes reviewed. Previous medical record reviewed whenavailable. Management options include but not limited to: physical exam, laboratory testing, discussion with other providers. Initial Plan: labs, EKG, CXR documented in this encounter Plan of Treatment Scheduled Orders Name Type Priority Associated Diagnoses Orde r Schedule EKG 12-LEAD ECG Routine Dizziness ONCE for 1 Occurrences starting 01/23/2021 until 01/23/2021 documented as of this encounter Visit Diagnoses Diagnosis Dizziness Dizziness and giddiness documented in this encounter Active and Recently Administered Medications Times are shown in CDT. Scheduled Medication Order 01/21/2021 01/22/2021 01/23/2021 0.9% NaCl IV bolus 1,000 mL, at 983.61 mL/hr, Administer over 61 Minutes, NOW, 1 dose, On Sat01/23/21 at 1800 1800 (Due) documented in this encounter
--- OUTSIDE RECORDS SUMMARY | 2024-04-26 21:19 | XMS_ITS | Encounter Summary ---
Author Organization [facility] Health Address [address] [facility] [place] [place] [address] Care Team Providers Care Mold Breaker Name Role Phone Echo Pollard MD Primary Care Provider [phone] David Alicea MD Unavailable Reason for Visit * Radiology Services (Routine) - Closed Specialty Diagnoses / Procedures Referred By Faiza bowden Referred To Contact MRI Diagnoses Chronic migraine w/o aura w/o status migrainosus, not intractable Procedures MRI BRAIN WWO CONTRAST David Alicea MD [address] [facility] [address] [place] [phone] Referral ID Status Reason Start Date Expiration Date Visits Re quested Visits Authorized [id number] Closed 09/17/2023 09/16/2024 1 1 Encounter Details Date Type Department Care Team (Latest Contact Info) Description 09/25/2023 3:04 PM CDT - 09/25/2023 11:59 PM CDT Hospital Encounter [facility] Health Imaging Services - MRI [address] [place] [address] David Alicea MD [address] [facility] [address] [place] [phone] Discharge Disposition: Home or Self Care Social [...] Sig Dispensed Refills Start Date End Date acetaminophen-codeine (Tylenol #3) 300-30 MG tablet TK 1 TO 2 TS PO Q 4 TO 6 H PRN albuterol HFA (Proventil; Ventolin; Proair) 108 (90 Base) MCG/ACT inhaler 06/13/2022 Allergy Relief Cetirizine 10 MG tablet 06/05/2022 ALPRAZolam (Xanax) 1 MG tablet 05/07/2023 buPROPion SR 12hr (Wellbutrin-SR) 150 MG tablet 05/10/2023 butalbital-acetaminop hen-caffeine (Fioricet) 50-325-40 MG tablet TK 1-2 TS PO Q 4-6 HOURS PRN calcium carbonate (TUMS) 500 MG chew tabletIndications:Hea rtburn Take 1 Tab by mouth as needed. Indications: Heartburn 08/03/2010 cloNIDine (Catapres) 0.2 MG tablet 05/10/2023 clopidogrel (plaVIX) 75 MG tablet Take 1 (one) tablet by mouth 10/19/2022 cyanocobalamin (Vitamin B-12) injection Inject 1 mL every month by intramuscular route. 11/07/2022 dexAMETHasone (Decadron) 6 MG tablet 04/03/2023 diazePAM (Valium) 5 MG tablet 04/09/2023 docusate sodium (COLACE) 100 MG capsule Take 1 Cap by mouth 2 times daily as needed for Constipation. 60 Cap 5 09/14/2010 enoxaparin (Lovenox) 60 MG/0.6ML injection 11/15/2022 fluconazole (Diflucan) 150 MG tablet 06/06/2022 FLUoxetine (PROZAC) 20 MG capsule Take 1 (one) capsule by mouth once daily Take one capsule by mouth once daily at bedtime. Take together with olanzapine. 30 capsule 11/22/2020 fluticasone propionate (Flonase) 50 MCG/ACT nasal spray 04/23/2023 Focalin XR 20 MG capsule 04/05/2023 HYDROcodone-acetamino phen ([place]) 5-325 MG tablet 05/10/2023 hydrOXYzine HCl (Atarax) 50 MG tablet Take 1 (one) tablet by mouth 10/19/2022 hydrOXYzine pamoate (Vistaril) 50 MG capsule 05/11/2023 ibuprofen (MOTRIN) 600 MG tablet Take 1 Tab by mouth every 4 hours as needed for Pain. 120 1 01/16/2011 ketoconazole (Nizoral) 2 % shampoo 02/26/2023 lamoTRIgine (LaMICtal) 25 MG tablet 05/11/2023 levonorgestrel (Plan B One Step) 1.5 MG tablet Take 1 (one) tablet by mouth as directed 08/02/2022 levothyroxine (SYNTHROID) 125 MCG tablet Take 125 mcg by mouth daily before breakfast. Dose increased 06/19/10 per pharmacy refill records levothyroxine (Synthroid) 150 MCG tablet Take 1 (one) tablet by mouth once daily 05/05/2023 levothyroxine (Synthroid) 175 MCG tablet 05/10/2023 lidocaine (Lidoderm) 5 % patch 12/17/2022 Linzess 145 MCG capsule 04/17/2023 medroxyPROGESTERone (Depo-Provera) 150 MG/ML prefilled syringe 06/13/2022 meloxicam (Mobic) 7.5 MG tablet TK 1 T PO WITH FOOD QD metoclopramide (Reglan) 10 MG tablet 05/10/2023 Mibelas 24 Fe 1-20 MG-MCG(24) tablet 07/20/2022 montelukast (Singulair) 10 MG tablet 09/20/2022 Multiple Vitamin (Daily-Maria Guadalupe) TABS 06/12/2022 naltrexone (Revia) 50 MG tablet 05/10/2023 nicotine (Nicoderm CQ) 14 MG/24HR patch Apply 1 patch every day by transdermal route for 14 days. OLANZapine (ZYPREXA) 5 MG tablet Take 1 (one) tablet by mouth once daily Take one tablet by mouth once daily at bedtime. Take together with fluoxetine 20 mg capsule. 30 tablet 11/22/2020 ondansetron (ZOFRAN) 4 MG tablet Take 4 mg by mouth every 8 hours as needed. 07/10/2010 ondansetron, disintegrating, (Zofran ODT) 8 MG tablet polyethylene glycol 3350 (GLYCOLAX) powder Take 17 g by mouth once daily as needed for Constipation. 119 g 3 01/04/2011 Vit-Fe Fumarate-FA ( VITAMIN) 28-0.8 MG tablet Take 1 Tab by mouth daily. promethazine (Phenergan) 25 MG tablet 06/13/2022 rivaroxaban (Xarelto) 20 MG tablet Take 1 (one) tablet by mouth 11/29/2022 rizatriptan (Maxalt) 10 MG tablet 10/07/2022 topiramate (Topamax) 100 MG tablet 05/06/2023 venlafaxine (Effexor) 75 MG tablet 05/10/2023 vitamin D, ergocalciferol, (Drisdol) 1.25 MG (61040 UT) capsule 05/10/2023 Vraylar 1.5 MG capsule 07/07/2022 ziprasidone (Geodon) 40 MG capsule Take 1 (one) capsule by mouth 10/18/2022 documented as of this encounter Progress Notes * David Alicea MD - 09/25/2023 11:59 PM CDT Please let patient not MRI brain is essentially unremarkable documented in this encounter Plan of Treatment Not on file documented as of this encounter Procedures Procedure Name Priority Date/Time Associated Diagnosis Comments MRI BRAIN WWO CONTRAST Routine 09/25/2023 4:36 PM CDT Chronic migraine w/o aura w/o status migrainosus, not intractable documented in this encounter Results * MRI BRAIN WWO CONTRAST (09/25/2023 [...] normal. Procedure Note Satinder Conway MD - 09/26/2023 PROCEDURE: MRI BRAIN WWO CONTRAST DATE/TIME OF [...] Satinder Conway MD on 09/26/2023 8:59 AM Authorizing Provider Result Palomo Alicea MD MR ORDERABLES documented in this encounter Visit Diagnoses Diagnosis Chronic migraine w/o aura w/o status migrainosus, not intractable Chronic migraine without aura, without mention of intractable migraine without mention of status migrainosus documented in this encounter Administered Medications Inactive Administered Medications - up to 3 most recent administrations Medication Order MAR Action Action Date Dose Rate Site gadoterate meglumine (Dotarem/Clariscan) injection Intravenous, CONTRAST ONCE, Starting on Sat09/25/23 at 1636, Until Sat09/26/23 at 0122 $ Given - Contrast 09/25/2023 4:38 PM CDT 6 mL documented in this encounter Care Teams Mold Breaker Relationship Specialty Start Date End Date Echo Pollard MD [address] [place] [address]. [address] [place] [phone] PCP - General Family Medicine 05/14/23 David Alicea MD [address] [facility] [address] [place] [address] Neurology 05/14/23 documented as of this encounter
--- OUTSIDE RECORDS SUMMARY | 2024-04-26 21:19 | XMS_ITS | Encounter Summary ---
Author Organization [facility] Address [address] [place] [address] Care Team Providers Care Produce Team Lead Name Role Phone Echo Pollard MD Primary Care Provider [phone] David Alicea MD Unavailable Reason for Referral * Radiology Services (Routine) - Denied Specialty Diagnoses / Procedures Referred By Faiza bowden Referred To Contact MRI Diagnoses Localization-related (focal) (partial) idiopathic epilepsy and epileptic syndromes with seizures of localized onset, intractable, without status epilepticus (HCC) Chronic migraine w/o aura w/o status migrainosus, not intractable Procedures MRI ANGIO BRAIN ART PATRICK WO CONT David Alicea MD [address] [facility] [employer] [address] [place] [phone] Referral ID Status Reason Start Date Expiration Date Visits Re quested Visits Authorized [id number] Denied 05/14/2023 05/13/2024 1 0 BLOCK GAUGER * Neurology (Routine) - Pending Review Specialty Diagnoses / Procedures Referred By Faiza bowden Referred To Contact Neurology Diagnoses Localization-related (focal) (partial) idiopathic epilepsy and epileptic syndromes with seizures of localized onset, intractable, without status epilepticus (HCC) Chronic migraine w/o aura w/o status migrainosus, not intractable Procedures EEG David Alicea MD [address] [facility] [address] [place] [address] Referral ID Status Reason Start Date Expiration Date V isits Requested Visits Authorized [id number] Pending Review 05/14/2023 05/13/2024 2 1 BLOCK GAUGER Reason for Visit * Reason Comments Establish Care Possible seizures Encounter Details Date Type Department Care Team (Late st Contact Info) Description 05/14/2023 2:00 PM LENS BLOCK GAUGER Office Visit [facility] Neurosciences [address] [place] [address] David Alicea MD [address] [place] [id number] Localization-related (focal) (partial) idiopathic epilepsy and epileptic syndromes with seizures of localized onset, intractable, without status epilepticus (HCC) (Primary Dx); Chronic migraine w/o aura w/o status migrainosus, not intractable Social History Tobacco Use Types Packs/Day Years [...] Comments Blood Pressure 109/80 05/14/2023 1:41 PM LENS BLOCK GAUGER Pulse 86 05/14/2023 1:41 PM LENS BLOCK GAUGER Temperature - - Respiratory Rate 16 05/14/2023 1:41 PM LENS BLOCK GAUGER Oxygen Saturation - - Inhaled Oxygen Concentration - - Weight 62.6 kg (138 lb) 05/14/2023 1:41 PM LENS BLOCK GAUGER Height 160 cm (5' 3 ) 05/14/2023 1:41 PM LENS BLOCK GAUGER Body Mass Index 24.45 05/14/2023 1:41 PM LENS BLOCK GAUGER documented in this encounter Progress Notes * David Alicea MD - 05/14/2023 1:56 PM CST Neurology Consult Note Date of consult: 05/14/2023 Patient Name Sahra Parks HPI: Sahra Parks is a 42 year old female who presents with seizure, migraines. Patient is a poor historian She is by herself in office She is from [place] Seizures ?? First seizure when she was at first grade. She did not start on seizure medication until she was20 years old. ?? She has funny smell and funny feeling in head prior to seizures. ?? She had two seizures last year. Last one she had when she was in her sleep. ?? Woke up with bruises in her tongje at times in the morning ?? Denies urinary incontinence ?? She takes Topamax 100 mg bid to treat migraines. ?? She tried two other seizure medications by her previous neurologist which she could not recall the names. She is no longer taking seizure medications other than Topamax. She has not seen neurologist for years. ?? She had both EEG and MRI brain years ago. Both were abnormal per pt. one showed epileptic something the other one showed something in my head She takes Lamotrigine 50 mg qd for psych condition. Migraines ?? Has had chronic migraines for many years ?? She has 4-5 migraines per week. ?? Each migraine lasts up to few days. ?? She take 800 mg Ibuprofen and Tylenol daily to treat migraines and leg pain from DVT per pt DVT ?? History of DVT Has history of depression, anxiety, PTSD, ADHD Has lived in [place] since 05/2022 Past Medical History: Diagnosis Date ??? Anemia ??? Anxiety ??? Asthma ??? Back problem ??? Benign hypertension no meds ??? Cholesterol serum increased ??? Epigastric pain ??? Headache(784.0) ??? Heart disease ??? History of conization of cervix 1997 ??? Hypertension ??? Hypothyroid ??? Lupus (CMS-HCC) never confirmed on serology ??? Seizure disorder (CMS-HCC) ??? Thyroid disease ??? UTI (urinary tract infection) Allergies Allergen Reactions ??? Latex Unknown rash ??? Morphine Anaphylaxis, Swelling and Other Reaction: Throat Swelling, ??? Sulfa Drugs Rash and Nausea and/or Vomiting ??? Sulfa Antibiotics Nausea and/or Vomiting and Rash ??? Ciprofloxacin Nausea and/or Vomiting and Vomiting Reaction: Nausea, Vomiting, ??? Iodine Other ??? Magnesium Salicylate Unknown Patient stated that after administration she felt like she was having an anxiety attack and got very overheated Family History Problem Relation Name Age of Onset ??? Hypertension Mother ??? Asthma Mother ??? Hepatitis Mother C ??? Cancer - Breast Maternal Grandmother ??? Heart Disease Unknown both sides of families ??? Other Sister ovarian cysts Social History Socioeconomic History ??? Marital status: Single Spouse name: Not on file ??? Number of children: Not on file ??? Years of education: Not on file ??? Highest education level: Not on file Occupational History ??? Not on file Tobacco Use ??? Smoking status: Every Day Packs/day: .5 Types: Cigarettes ??? Smokeless tobacco: Never Vaping Use ??? Vaping Use: Never used Substance and Sexual Activity ??? Alcohol use: No ??? Drug use: No ??? Sexual activity: Yes Other Topics Concern ??? Not on file Social History Narrative ??? Not on file Social Determinants of Health Financial Resource Strain: Not on file Food Insecurity: Not on file Transportation Needs: Not on file Stress: Not on file Housing Stability: Not on file Current Outpatient Medications Medication Sig Dispense Refill ??? acetaminophen-codeine (Tylenol #3) 300-30 MG tablet TK 1 TO 2 TS PO Q 4 TO 6 H PRN ??? albuterol HFA (Proventil; Ventolin; Proair) 108 (90 Base) MCG/ACT inhaler ??? Allergy Relief Cetirizine 10 MG tablet ??? ALPRAZolam (Xanax) 1 MG tablet ??? buPROPion SR 12hr (Wellbutrin-SR) 150 MG tablet ??? wrkvxfafnm-kwtiiuydzwbsp-bflflyif (Fioricet) 50-325-40 MG tablet TK 1-2 TS PO Q 4-6 HOURS PRN ??? calcium carbonate (TUMS) 500 MG chew tablet Take 1 Tab by mouth as needed. Indications: Heartburn ??? cloNIDine (Catapres) 0.2 MG tablet ??? clopidogrel (plaVIX) 75 MG tablet Take 1 (one) tablet by mouth ??? cyanocobalamin (Vitamin B-12) injection Inject 1 mL every month by intramuscular route. ??? dexAMETHasone (Decadron) 6 MG tablet ??? diazePAM (Valium) 5 MG tablet ??? docusate sodium (COLACE) 100 MG capsule Take 1 Cap by mouth 2 times daily as needed for Constipation. 60 Cap 5 ??? enoxaparin (Lovenox) 60 MG/0.6ML injection ??? fluconazole (Diflucan) 150 MG tablet ??? FLUoxetine (PROZAC) 20 MG capsule Take 1 (one) capsule by mouth once daily Take one capsule by mouth once daily at bedtime. Take together with olanzapine. 30 capsule 0 ??? fluticasone propionate (Flonase) 50 MCG/ACT nasal spray ??? Focalin XR 20 MG capsule ??? HYDROcodone-acetaminophen ([place]) 5-325 MG tablet ??? hydrOXYzine HCl (Atarax) 50 MG tablet Take 1 (one) tablet by mouth ??? hydrOXYzine pamoate (Vistaril) 50 MG capsule ??? ibuprofen (MOTRIN) 600 MG tablet Take 1 Tab by mouth every 4 hours as needed for Pain. 120 1 ??? ketoconazole (Nizoral) 2 % shampoo ??? lamoTRIgine (LaMICtal) 25 MG tablet ??? levonorgestrel (Plan B One Step) 1.5 MG tablet Take 1 (one) tablet by mouth as directed ??? levothyroxine (SYNTHROID) 125 MCG tablet Take 125 mcg by mouth daily before breakfast. Dose increased 06/19/10 per pharmacy refill records ??? levothyroxine (Synthroid) 150 MCG tablet Take 1 (one) tablet by mouth once daily ??? levothyroxine (Synthroid) 175 MCG tablet ??? lidocaine (Lidoderm) 5 % patch ??? Linzess 145 MCG capsule ??? medroxyPROGESTERone (Depo-Provera) 150 MG/ML prefilled syringe ??? meloxicam (Mobic) 7.5 MG tablet TK 1 T PO WITH FOOD QD ??? metoclopramide (Reglan) 10 MG tablet ??? Mibelas 24 Fe 1-20 MG-MCG(24) tablet ??? montelukast (Singulair) 10 MG tablet ??? Multiple Vitamin (Daily-Maria Guadalupe) TABS ??? naltrexone (Revia) 50 MG tablet ??? nicotine (Nicoderm CQ) 14 MG/24HR patch Apply 1 patch every day by transdermal route for 14 days. ??? OLANZapine (ZYPREXA) 5 MG tablet Take 1 (one) tablet by mouth once daily Take one tablet by mouth once daily at bedtime. Take together with fluoxetine 20 mg capsule. 30 tablet 0 ??? ondansetron (ZOFRAN) 4 MG tablet Take 4 mg by mouth every 8 hours as needed. ??? ondansetron, disintegrating, (Zofran ODT) 8 MG tablet ??? polyethylene glycol 3350 (GLYCOLAX) powder Take 17 g by mouth once daily as needed for Constipation. 119 g 3 ??? Vit-Fe Fumarate-FA ( VITAMIN) 28-0.8 MG tablet Take 1 Tab by mouth daily. ??? promethazine (Phenergan) 25 MG tablet ??? rivaroxaban (Xarelto) 20 MG tablet Take 1 (one) tablet by mouth ??? rizatriptan (Maxalt) 10 MG tablet ??? topiramate (Topamax) 100 MG tablet ??? venlafaxine (Effexor) 75 MG tablet ??? vitamin D, ergocalciferol, (Drisdol) 1.25 MG (58983 UT) capsule ??? Vraylar 1.5 MG capsule ??? ziprasidone (Geodon) 40 MG capsule Take 1 (one) capsule by mouth No current facility-administered medications for this visit. ROS Symptoms within the past 90 days include those in bold type. General: Fatigue, fever, weight loss Skin: Rash Head: Trauma Ears: loss of hearing. Eyes: Changes in vision, double vision, droopy eyelid Neck: stiffness Respiratory: Cough, short of breath Cardiac: Chest pain, palpitation GI: Nausea, vomiting, diarrhea, constipation : Difficulty urinating, frequent urination. Extremity: Cramps, muscle pain, joint pain Psych: Anxiety, depression Neuro: Headache, dizziness, seizure, weakness, numbness, memory loss, speech difficulty I have reviewed chart and the pertinent images and studies are personally reviewed Recent Labs Component Name 12/05/212109 WBC 7.7 HGB 12.5 HCT 34.7* PLTCOUNT 286 Recent Labs Component Name 12/05/212109 SODIUM 127* POTASSIUM 3.2* CHLORIDE 96* CO2 18* BUN 3* CREATININE 0.74 CALCIUM 8.7 ALBUMIN 3.7 ALT 8 AST 16 GLUCOSE 94 EXAMINATION: BP 109/80 Pulse 86 Resp 16 Ht 1.6 m (5' 3 ) Wt 62.6 kg (138 lb) Physical Exam General appearance: well developed, in no apparent distress Head: Atraumatic, no obvious abnormality Neck: Normal carotid pulses, no bruits CVS: S1 S2 heard. No murmurs or gallop heard. Resp: Air entry is equal bilaterally without evidence of crackles or rhonchi. Abd: Non tender, non distended and no evidence of organomegaly. Ext: Distal pulses are preserved. Skin: Warm and dry Neuro Exam: Mental Status: Awake, Alert. Oriented x3. Follows commands, has normal fund of knowledge, attention, short term recall, comprehension and insight. Speech: Clear, normal repetition Cranial Nerves: 1. (Cranial Nr 2) Fundii - Not tested 2. (Cranial Nr 3,4,6) Extra Ocular Movements - Intact 3. (Cranial Nr 5) Facial sensation - Equal Bilaterally 4. (Cranial Nr 7) Facial expression - No Facial Asymmetry 5. (Cranial Nr 8) Hearing - Intact to conversation and finger rub 6. (Cranial Nr 9, 10) Voice - No change in quality or pitch Palate - Elevates equally Gag - Present 7. (Cranial Nr 11) Elevate shoulder - Bilaterally without paralysis 8. (Cranial Nr 12) Tongue - No deviation or wasting Motor: Strength UE 5/5, LE 5/5, normal tone, no tremors Sensation: Intact to light touch, temperature, and vibration. Reflexes: DTRs Symmetric with plantar responses both sides 1. Triceps(C7) - 2+ 2. Biceps (C5,6) - 2+ 2. Brachioradialis (C6) - 2+ 3. Patellar (L4) - 2+ 4. Achilles (S1) - 2+ Coordination/Cerebellar: Intact to bobcoc-urml-idfnof, scpd-vv-fqck exam. Gait: normal tandem gait and negative romberg test. Assessment: Encounter Diagnoses Name Primary? Localization-related (focal) (partial) idiopathic epilepsy and epileptic syndromes with seizures of localized onset, intractable, without status epilepticus ([facility]-HCC) Yes ??? Chronic migraine w/o aura w/o status migrainosus, not intractable 1. Seizures Patient is a poor historian 2. Chronic migraines 3. History of DVT Plan: Orders Placed This Encounter ??? MRI BRAIN WO CONTRAST Standing Status: Future Standing Expiration Date: 05/14/2024 Order Specific Question: Release to patient Answer: Immediate Order Specific Question: Exam to be performed? Answer: Per Radiologist protocol ??? MRI ANGIO BRAIN ART PATRICK WO CONT Standing Status: Future Standing Expiration Date: 05/14/2024 Order Specific Question: Release to patient Answer: Immediate Order Specific Question: Exam to be performed? Answer: Per Radiologist protocol ??? TOPIRAMATE LEVEL Order Specific Question: Release to patient Answer: Immediate ??? EEG Standing Status: Future Standing Expiration Date: 05/14/2024 Order Specific Question: Reason for Exam Answer: Spells, potential Seizure Order Specific Question: Release to patient Answer: Immediate 1. MRI brain 2. MRV brain 3. Continue Topamax 100 mg bid to treat both seizure and migraines 4. EEG 5. Obtain records from previous neurologist 6. Seizure precautions 7. Follow up in 2 months Seizure Precaution Instructions: 1. No driving for at least 6 months. If no seizures for 6 months then please clarify with your physician before starting to drive. 2. No heavy machine operation, no open fire, no swimming alone, no acitivities where loss of consciousness can cause harm to patient and/or people around the patient. 3. Please make your family and close friends as well as co-workers about possibility that you may have these episodes and to document your episode or notify authorities if these happen and you are not aware of them. 4. If you are on seizure medications please take them regularly. Inform physician of all side effects and outcomes on a regular basis. A total of minutes was spent in pre charting, reviewing EMR, assessing and interpreting data, examining the patient, developing and implementing the care plan, and discussing the evaluation and treatment of disease-related issues with the patient, and post charting. Greater than 50% of the visitwas spent counseling the patient with regard to medications, disease management, and treating co-morbidities as well as coordinating of care. Migraine Patient Instructions 1. Maintain Sleep Cycle - Sleep at same time everyday. Please avoid television, caffeine and sodas at least 1-2 hours before bed time. 2. Avoid excessive caffeine intake - Caffeine intake interferes with sleep and rest cycles so please avoid more than 2 medium cup sizes of caffeine or 2 caffeine containing soda drinks per day. 3. Look for food triggers - Although no food item is prohibited in migraine headaches and no food items have been shown to induce headaches if there is a certain edible item that induces your symptoms please avoid that particular item from your diet. 4. Maintain Headache Calendar - Please note down frequency of your symptoms on a small personal headache diary. This will help us determine not only your course of illness but also your response to any medications that we may provide. 5. Take Medications daily - Please take medications that need daily intake as directed and not whensymptoms occur. These medications help prevent more future attacks but have little effect once you have an attack. You will be provided with different medications for the more acute attacks as directed. 6. Keep your physician informed of ANY CHANGE in your headache TYPE, LOCATION and FREQUENCY at ALL times since this could indicate a reason for re-evaluation. Contact physician as soon as this happens to discuss if you need to be seen. Discussed the etiology and nature of conditions with patient in great detail. Reviewed exam findings and how they correlate to the diagnoses. I addressed all questions regarding this discussion. I was with the patient for over 45 minutes in face to face time and spent >50% of the visit reviewing pertinent test results with the patient, counseling them on medication management options and lifestyle changes that could benefit symptoms, answering their questions, and discussing follow-up planning I spent an additional 25 minutes in chart review and documentation. Dictation completed by [employer] software. Privacy Specialist variances may occur. Thank you for involving me in [facility] David Alicea MD BLOCK GAUGER documented in this encounter Plan of Treatment Scheduled Orders Name Type Priority Associated Diagnoses Orde r Schedule EEG Neurology Routine Localization-related (focal) (partial) idiopathic epilepsy and epileptic syndromes with seizures of localized onset, intractable, without status epilepticus (HCC) Chronic migraine w/o aura w/o status migrainosus, not intractable 1 Occurrences starting 05/14/2023 until 05/14/2024 MRI ANGIO BRAIN ART PATRICK WO CONT Imaging Routine Localization-related (focal) (partial) idiopathic epilepsy and epileptic syndromes with seizures of localized onset, intractable, without status epilepticus (HCC) Chronic migraine w/o aura w/o status migrainosus, not intractable 1 Occurrences starting 05/14/2023 until 05/14/2024 TOPIRAMATE LEVEL Lab Routine Localization-related (focal) (partial) idiopathic epilepsy and epileptic syndromes with seizures of localized onset, intractable, without status epilepticus (HCC) Ordered: 05/14/2023 documented as of this encounter Visit Diagnoses Diagnosis Localization-related (focal) (partial) idiopathic epilepsy and epileptic syndromes with seizures of localized onset, intractable, without status epilepticus (HCC)- Primary Chronic migraine w/o aura w/o status migrainosus, not intractable Chronic migraine without aura, without mention of intractable migraine without mention of status migrainosus documented in this encounter Care Teams Produce Team Lead Relationship Specialty Start Date End Date Echo Pollard MD [facility] [place] [phone] PCP - General Family Medicine 05/14/23 David Alicea MD [address] [facility] [address] [place] [phone] Neurology 05/14/23 documented as of this encounter
--- OUTSIDE RECORDS SUMMARY | 2024-04-26 21:19 | XMS_ITS | Encounter Summary ---
Author Organization [facility] Address [address] [place] [address] Care Team Providers Care Hospital Coder Name Role Phone Unavailable Primary Care Provider Unavailabl e Reason for Visit * Reason Comments Altered mental status Encounter Details Date Type Department Care Team (Late st Contact Info) Description 12/05/2021 8:17 PM CDT - 12/06/2021 1:57 AM CDT Emergency ER at [address] [address] Jesus Cabrera MD Altered mental status, unspecified altered mental status type; Cyclic vomiting syndrome; Acute nonintractable headache, unspecified headache type; Gastroenteritis; Electrolyte abnormality Discharge Disposition: Home or Self Care Social [...] Sign Reading Time Taken Comments Blood Pressure 157/107 12/05/2021 11:50 PM CDT Pulse 66 12/05/2021 11:50 PM CDT Temperature 36.5 ??C (97.7 ??F) 12/05/2021 8:23 PM CD T Respiratory Rate 20 12/05/2021 11:50 PM CDT Oxygen Saturation 94% 12/05/2021 9:00 PM CDT Inhaled Oxygen Concentration - - Weight 56.7 kg (125 lb) 12/05/2021 8:27 PM CDT Height 161.3 cm (5' 3.5 ) 12/05/2021 8:27 PM CDT Body Mass Index 21.8 12/05/2021 8:27 PM CDT documented in this encounter Discharge Instructions * Discharge Instructions* Jesus Cabrera MD - 12/06/2021 12:27 AM CDT documented in this encounter Medications at [...] as of this encounter ED Notes * Geni Dougherty RN - 12/06/2021 1:55 AM CDT Rozina conte arranged for patient per Mom. Patient resting quietly when RN entered room. Patient refusing to leave ED. States she didn't get good care. Security at bedside. Patient alert and oriented. Ambulatory to exit. * Kaitlynn Sanchze RN - 12/06/2021 1:19 AM CDT SBAR to Geni HOLT * Kaitlynn Sanchez RN - 12/05/2021 10:50 PM CDT Pt able to collect urine, urine collect and sent to lab. Pt back on stretcher. She is calm and cooperative at this time. Pt continues to refuse medications or ekg. * Kaitlynn Sanchez RN - 12/05/2021 10:30 PM CDT Pt ambulated to restroom with steady gait. Gave pt urine cup to provide UA> * Kaitlynn Sanchez RN - 12/05/2021 10:15 PM CDT Pt mother on the phone speaking with patient, Pt continues to refuse medical treatment. * Kaitlynn Sanchez RN - 12/05/2021 9:50 PM CDT Pt continues to refuse medical treatment. Geni HOLT attempting to call Britni SANCHEZ to see if we can contact pts mother. * Kaitlynn Sanchez RN - 12/05/2021 9:40 PM CDT Pt refusing all medical treatments. Pt will not let RN dietary supervisor IV fluids. She refused CT. She is crying and continues to vomit. Attempting to get a hold of patients family * Geni Dougherty RN - 12/05/2021 9:15 PM CDT Pt covering IV and refusing medications. States she just wants her mom and dad to be called. RN explained that we are trying to help. Pt vomiting in bag. States she doesn't want medications. Attempting to remove IV. * Jesus Cabrera MD - 12/05/2021 9:06 PM CDT ED Events Date/Time Event User Comments 12/05/212057 First Provider Evaluation JESUS CABRERA -- Sahra Parks [id number] [facility] EMERGENCY DEPARTMENT History Chief Complaint Patient presents with ??? Altered mental status Chief complaint narrative was entered by triage nurse, not by physician. 41-year-old female presenting emergency department alteration mental status and nausea vomiting. HPI is very limited due to patient mental status is she is confused and not willing to answer questions. Per EMS sign out the patient was found outside of [facility] and reported not feeling well with a mild headache. On arrival to the emergency department. She is vomiting profusely. All she will say isthat she does not feel well. Patient denies drinking alcohol. Denies any chest pain or shortness ofbreath, states she has a mild headache. Denies taking any drugs. Past Medical History: Diagnosis Date ??? Anemia [...] Procedure Laterality Date ??? CERVICAL BIOPSY, CONE 1998 ??? Hernia Repair ??? Hernia Repair 2007 Family History Problem Relation Name Age of [...] on file Transportation Needs: Not on file Physical Activity: Not on file Stress: Not on file Social Connections: Not on file Intimate Partner Violence: Not on file Housing Stability: Not on file Review of Systems Review of Systems Unable to perform ROS: Mental status change Physical Exam BP (!) 157/107 Pulse 66 Temp 97.7 ??F (36.5 ??C) (Oral) Resp 20 Ht 1.613 m (5' 3.5 ) Wt 56.7 kg (125 lb) LMP 12/03/2021 SpO2 94% BMI 21.80 kg/m?? Physical Exam Vitals and nursing note reviewed. Constitutional: General: She is in acute distress. Appearance: Normal appearance. She is well-developed. She is ill-appearing. She is not diaphoretic. Comments: Actively vomiting and dry heaving HENT: Head: Normocephalic and atraumatic. Mouth/Throat: Mouth: Mucous membranes are moist. Eyes: Extraocular Movements: Extraocular movements intact. Conjunctiva/sclera: Conjunctivae normal. Pupils: Pupils are equal, round, and reactive to light. Cardiovascular: Rate and Rhythm: Regular rhythm. Tachycardia present. Heart sounds: Normal heart sounds. No murmur heard. Pulmonary: Effort: Pulmonary effort is normal. No respiratory distress. Breath sounds: Normal breath sounds. No wheezing or rales. Abdominal: General: Bowel sounds are normal. There is distension. Palpations: Abdomen is soft. Tenderness: There is abdominal tenderness in the epigastric area. There is no guarding or rebound. Musculoskeletal: General: No tenderness. Normal range of motion. Cervical back: Normal range of motion and neck supple. Skin: General: Skin is warm and dry. Capillary Refill: Capillary refill takes less than 2 seconds. Findings: No rash. Neurological: General: No focal deficit present. Mental Status: Mental status is at baseline. She is lethargic and confused. GCS: GCS eye subscore is 3. GCS verbal subscore is 4. GCS motor subscore is 5. Cranial Nerves: No cranial nerve deficit or facial asymmetry. Sensory: No sensory deficit. Medications Current Outpatient Medications Medication Sig Dispense Refill [...] tablet Take 1 Tab by mouth daily. Procedures Procedures Lab Interpretation Oxygen Saturation Interpretation The oxygen saturation level is: 99%. The patient was on Room Air for the saturation measurement. Measurement frequency: Spot Check. Oxygen saturation interpretation is Normal. Intervention(s) used: None. Hospital Encounter on 12/05/21 CBC W AUTO DIFFERENTIAL Result Value Ref Range WBC 7.7 4.4 - 10.7 x10E9/L WBC Corrected RBC 4.08 3.80 - 5.20 x10E12/L Hemoglobin 12.5 12.0 - 15.6 gm/dL Hematocrit 34.7 (L) 35.9 - 45.5 % MCV 85.0 80.7 - 98.3 fl MCH 30.6 26.7 - 34.0 pg MCHC 36.0 (H) 30.8 - 35.9 gm/dL Platelet Count 286 153 - 416 x10E9/L RDW-CV 12.0 (L) 12.1 - 14.9 % MPV 8.9 (L) 9.4 - 12.9 fl Neutrophils % 60.5 44.0 - 73.0 % Lymphocytes % 27.9 20.0 - 43.0 % Monocytes % 9.0 5.0 - 13.0 % Eosinophils % 1.8 0.0 - 6.0 % Basophils % 0.5 0.0 - 2.0 % Immature Granulocytes 0.3 0 - 1 % Neutrophil Absolute 4.65 2.01 - 7.14 x10E9/L Lymphocytes Absolute 2.14 1.07 - 3.94 x10E9/L Monocytes Absolute 0.69 0.26 - 1.07 x10E9/L Eosinophils Absolute 0.14 0 - 0.47 x10E9/L Basophils Absolute 0.04 0 - 0.08 x10E9/L Immature Granulocytes Absolute 0.02 0.00 - 0.06 x10E9/L nRBC Auto 0 /100 WBC COMPREHENSIVE METABOLIC PANEL Result Value Ref Range Glucose 94 70 - 105 mg/dL Sodium 127 (L) 136 - 145 mmol/L Potassium 3.2 (L) 3.5 - 5.1 mmol/L Chloride 96 (L) 98 - 107 mmol/L CO2 18 (L) 23 - 31 mmol/L Calcium 8.7 8.4 - 10.4 mg/dL Anion Gap 13 8 - 18 mmol/L BUN 3 (L) 7 - 18.7 mg/dL Creatinine 0.74 0.57 - 1.11 mg/dL Alkaline Phosphatase 43 40 - 150 U/L ALT 8 0 - 61 U/L AST 16 5 - 34 U/L Protein Total 5.9 (L) 6.4 - 8.3 gm/dL Albumin 3.7 3.5 - 5.2 gm/dL Bilirubin Total 0.4 0.2 - 1.2 mg/dL eGFR by CKD-EPI >90 >=90 mL/min/1.73 m2 C-REACTIVE PROTEIN Result Value Ref Range C-Reactive Protein <0.20 <=0.50 mg/dL LACTIC ACID BLOOD REFLEX TO REPEAT Result Value Ref Range Lactic Acid 0.9 <=2 mmol/L MAGNESIUM BLOOD Result Value Ref Range Magnesium 1.5 (L) 1.6 - 2.6 mg/dL PT-INR Result Value Ref Range PT 13.2 12.1 - 14.8 sec INR 1.0 0.9 - 1.1 TROPONIN I Result Value Ref Range Troponin I <0.010 <0.038 ng/mL HCG BLOOD QUALITATIVE Result Value Ref Range HCG Qual Serum Negative Negative DRUG SCREEN TOX LIMITED BLD PNL 3 INHOUSE Result Value Ref Range Acetaminophen <3.0 (L) 10.0 - 30.0 ug/mL Ethanol <10.0 <10 mg/dL Salicylate <5.0 (L) 15.0 - 30.0 mg/dL URINE DRUG SCREEN IMMUNOASSAY Result Value Ref Range Amphetamines Screen Urine Not detected Not detected Barbiturates Screen Urine Not detected Not detected Benzodiazepines Screen Urine Not detected Not detected Cannabinoids Screen Urine Detected (Abnormal) Not detected Cocaine Screen Urine Not detected Not detected Fentanyl Urine Not detected Not detected Methadone Screen Urine Not detected Not detected Opiate Screen Urine Not detected Not detected Phencyclidine Screen Urine Not detected Not detected XR CHEST 1VW PORTABLE (Results Pending) CT HEAD NON CONTRAST - suspected intracranial hemorrhage (Results Pending) Preliminary view and read of CXR by me: JENNIFER CT HEAD Preliminary report: No acute intracranial process. Dang-white differentiation is relatively preserved. No mass,mass effect or midline shift. No evidence of acute large territorial infarction or acute intracranial hemorrhage. Ventricles appear normal in size. Basal cisterns are patent. No depressed calvarial fracture. Patient Name:SAHRA PARKS MR NO:[id number] Accession No: Donal Bear D.O. Electronically Signed Date Of Exam Request:12/05/2021 11:13:49 PM CDT Date & Time Of Report: 12/05/2021 11:15:35 PM CDT Progress Notes 9:18 PM: Rechecked the patient and she is anxious and confused. Refusing to receive medications including zofran and IVF. Attempted to provide reassurance from myself, nursing and CSN. Remains very anxious and agitated but not combative at the current time. May require medication for anxiolysis to allow us to complete appropriate workup for altered mental status. 12:37 AM: At this present time, a medical screening exam has been completed. It is determined that the patient does not have an emergency medical condition and is stable for discharge. All labs and test results, if ordered, were discussed with the patient. An opportunity was given for questions. Patient informed of the importance of following up with his primary care provider as instructed. Patient verbalizes understanding of discharge instructions. Strict return precautions discussed. Pt is medically stable for discharge this time. 0200: Sober transportation arranged by the mother. Patient was sleeping comfortably in the room prior to discharge. However, when the patient was informed she is going to be discharged she refused toleave the ER. I re- evaluated the patient, she has no emergent medical condition requiring ongoing treatment evaluation in the ER. Required security to escort the patient out of the ED. She is ambulatory out of the department, oriented x3. ED Course ED Course as of 12/06/21 0535 SatDec 05, [id number] [facility] COVID DISCLAIMER Management decisions on this patient encounter were made during the COVID-19 public health emergency. As a result, admission vs discharge decisions have necessarily changed in order to protect patients from nosocomial spread of SARS-CoV-2. The ability to test this patient for the SARS-CoV-2 virus is limited by national supplies and decision to test or not test this patient was made in the light of health system recommendations. Furthermore the risk of admission and discharge was made based on the patient's presenting symptoms, vital signs, risk of nosocomial infections and resource availability. DDX HIGH: delirium, intoxication, altered mental status, gastroenteritis Mod: seizure, withdrawal, substance abuse, CHS Low: alcohol withdrawal seizure, CVA/TIA, acute traumatic ICH, aspiration PNA, cardiac arrhythmia, polypharmacy, meningitis/encephalitis, ACS, PE, SAH, aneursymal SAH, trauma Plan -tox/metabolic workup including etoh, UDS -CXR -NCHCT -IVF bolus -supplemental oxygen for sats>92% -analgesia and antiemetics as needed Initial Dispo Plan - pending workup [LH] 2144 Medication provided for intractable vomiting, not for sedation purposes. Unclear if this is CVC or possible CHS if any THC use. I chose to use haloperidol as this is a very effective antiemetic and treatment of choice of for CHS. [LH] 2146 Ethanol: <10.0 [LH] 2146 Lactic Acid: 0.9 [LH] 2146 hCG Qualitative: Negative [LH] 2318 Potassium(!): 3.2 [LH] 2319 Magnesium(!): 1.5 [LH] 2319 Discussed electrolyte abnormalities with patient, she is refusing any further medications. [LH] 2328 Cannabinoids Screen Urine(!): Detected [] SatDec 06, 2021 001 Patient mental status improving. Ambulatory to bathroom. Vomiting resolved. Tolerating PO. Continues to refuse any further treatment or workup. She is attempting to contact a ride. Plan for discharge. [LH] ED Course User Index [] Jesus Cabrera MD Clinical Impressions as of 12/06/21 0535 Altered mental status, unspecified altered mental status type Cyclic vomiting syndrome Acute nonintractable headache, unspecified headache type Gastroenteritis Electrolyte abnormality Medical Decision Making I have reviewed the: Previous Chart, Nursing Notes, Vitals. I have interpreted the following results: Labs, 12 Lead EKG, X-Ray, Oxygen Saturation. NIH Total: 0 Assessment Interval: Baseline Level of Consciousness: Alert, keenly responsive LOC: Questions (Month and Age): Answers both questions correctly LOC: Commands (opens/closes, eyes/fists): Performs both tasks correctly Best Gaze: Normal Visual: No visual loss Facial Palsy: Normal symmetrical movements Motor Arm Function - Right: No drift, limb hold 90 (or 45) degrees for full 10 seconds. Motor Arm Function - Left: No drift, limb hold 90 (or 45) degrees for full 10 seconds. Motor Leg - Right: No drift, leg holds 30-degree position for full 5 seconds. Motor Leg - Left: No drift, leg holds 30-degree position for full 5 seconds. Limb Ataxia: Absent Sensory: Normal, no sensory loss Best Language: No aphasis, normal Dysarthria: Normal Extinction and Inattention: No abnormality Orders Placed This Encounter ??? SARS-COV-2 (COVID-19) RAPID ??? XR CHEST 1VW PORTABLE ??? CT HEAD NON CONTRAST - suspected intracranial hemorrhage ??? CBC W AUTO DIFFERENTIAL ??? COMPREHENSIVE METABOLIC PANEL ??? C-REACTIVE PROTEIN ??? LACTIC ACID BLOOD REFLEX TO REPEAT ??? MAGNESIUM BLOOD ??? PT-INR ??? TROPONIN I ??? URINALYSIS REFLEX MICROSCOPIC REFLEX CULTURE ??? HCG BLOOD QUALITATIVE ??? DRUG SCREEN TOX LIMITED BLD PNL 3 INHOUSE ??? URINE DRUG SCREEN IMMUNOASSAY ??? EKG 12-LEAD ??? DISCONTD: 0.9% NaCl injection 3 mL ??? DISCONTD: 0.9% NaCl injection 1-10 mL ??? DISCONTD: ondansetron (Zofran) injection 4 mg ??? DISCONTD: 0.9% NaCl IV bolus ??? DISCONTD: famotidine (Pepcid) injection 20 mg ??? ondansetron (Zofran) injection 8 mg ??? ondansetron (Zofran) injection ADS Med ??? DISCONTD: haloperidol lactate (Haldol) injection 5 mg ??? DISCONTD: diphenhydrAMINE (Benadryl) injection 50 mg ??? ibuprofen (Motrin) tablet 600 mg Diagnosis: Encounter Diagnoses Name Primary? Altered mental status, unspecified altered mental status type ??? Cyclic vomiting syndrome ??? Acute nonintractable headache, unspecified headache type ??? Gastroenteritis ??? Electrolyte abnormality New Medications: Discharge Medication List as of 12/06/2021 1:39 AM I have advised the patient to follow-up with: your primary care provider Schedule an appointment as soon as possible for a visit If symptoms worsen Disposition: Discharged Scribe Attestation: By signing my name below, I, Thania Pyle, attest that this documentation has been prepared under the direction and in the presence of Dr. Cabrera. Electronically Signed: Thania Pyle 12/06/2021 5:35 AM I, Dr. Cabrera, personally performed the services described in this documentation. All medical record entries made by the scribe were at my direction and in my presence. I have reviewed the chart anddischarge instructions and agree that the record reflects my personal performance and is accurate and complete. Electronically Signed: Jesus Cabrera MD PhD Emergency Medicine 12/06/2021 05:36 Portions of the medical record may have been created with voice recognition software. Occasional wrong word or [id number] substitutions may have occurred due to the inherent limitations of voice recognition software. Read the chart carefully and recognize, using context, where substitutions haveoccurred. Follow-up Information Schedule an appointment as soon as possible for a visit with your primary care provider. Why: If symptoms worsen * Geni Dougherty RN - 12/05/2021 8:18 PM CDT Bed: 9 Expected date: Expected time: Means of arrival: Comments: [facility] 132 documented in this encounter Miscellaneous Notes * Clinical References AVS - Jesus Cabrera MD - 12/06/2021 12:28 AM CDT [id number] Headache, Unspecified A number of things can cause headaches. The cause of your headache isn?t clear. But it doesn?t seemto be a sign of any serious illness. Headache affects almost everyone at some time. It's the most common reason people miss days from work or school. You could have a tension headache or a migraine headache. Stress can cause a tension headache. This can happen if you tense the muscles of your shoulders, neck, and scalp without knowing it. If this stress lasts long enough, you may develop a tension headache. It's not clear why migraines occur, but certain things called triggers can raise the risk of having a migraine attack. Migraine triggers may include emotional stress or depression, or by hormone changes during the menstrual cycle. Other triggers include control pills and other medicines, alcohol or caffeine, foods with tyramine such as aged cheese or wine, eyestrain, weather changes, missed meals, and lack of sleep or oversleeping. Other causes of headache include: ?? Viral illness with high fever ?? Head injury with concussion ?? Sinus, ear, or throat infection ?? Dental pain and jaw joint (TMJ) pain More serious but less common causes of headache include stroke, brain hemorrhage, brain tumor, meningitis, and encephalitis. Home care Follow these tips when taking care of yourself at home: ?? Don?t drive yourself home if you were given pain medicine for your headache. Instead, have someone else drive you home. Try to sleep when you get home. You should feel much better when you wake up. ?? Apply heat to the back of your neck to ease a neck muscle spasm. Take care of a migraine headache by putting an ice pack on your forehead or at the base of your skull. ?? If you have nausea or vomiting, eat a light diet until your headache eases. ?? If you have a migraine headache, use sunglasses when in the daylight or around bright indoor lighting until your symptoms get better. Bright glaring light can make this type of headache worse. Follow-up care Follow up with your healthcare provider, or as advised. Talk with your provider if you have frequent headaches. They can help figure out a treatment plan. By knowing the earliest signs of headache, and starting treatment right away, you may be able to stop the pain yourself. When to seek medical advice Call your healthcare provider right away if any of these occur: ?? Your head pain suddenly gets worse after sexual intercourse or strenuous activity ?? Your head pain doesn?t get better within 24 hours ?? You aren?t able to keep liquids down (repeated vomiting) ?? Fever of 100.4??F (38??C) or higher, or as directed by your healthcare provider ?? Stiff neck ?? Extreme drowsiness, confusion, or fainting ?? Dizziness or dizziness with spinning sensation (vertigo) ?? Weakness in an arm or leg or one side of your face ?? You have trouble talking or seeing Last Reviewed Date: 2020 ?? [id number] [employer]. All rights reserved. This information is not intended as a substitute for professional medical care. Always follow your healthcare professional's instructions. * Clinical References AVS - Jesus Cabrera MD - 12/06/2021 12:28 AM CDT [id number] Noninfectious Gastroenteritis (Adult) Gastroenteritis can cause nausea, vomiting, diarrhea, and cramping in the belly. This may occur from food sensitivity, inflammation of your digestive tract, medicines, stress, or other causes not related to infection. Your symptoms will usually last from 1 to 3 days, but can last longer. Antibiotics don't work against this illness. Simple home treatment will help. Home care Medicine ?? You may use acetaminophen or NSAID medicines such as ibuprofen or naproxen to control fever, unless another medicine is prescribed. If you have chronic liver or kidney disease, or ever had a stomach ulcer or digestive bleeding, talk with your healthcare provider before using these medicines.)Aspirin should never be used in anyone under 18 years of age who is ill with a fever. It may cause sever e liver damage. Don't increase your NSAID medicines if you are already taking these medicines for another condition such as arthritis. Don't use NSAIDs if you are on aspirin. For example, if you takeaspirin for heart disease or after a stroke. ?? If medicines for diarrhea or vomiting are prescribed, take only as directed. General care and preventing spread of the illness ?? If symptoms are severe, rest at home for the next 24 hours or until you feel better. ?? Washing your hands with soap and clean, running water is the best way to prevent the spread of infection. Wash your hands after touching anyone who is sick. ?? Teach all people in your home when and how to wash their hands Wet your hands with clean, running water. Lather soap on the backs of your hands, between your fingers, and under your nails. Scrub your hands for at least 20 seconds. If you need a timer, try humming the Happy Birthday song from beginning to end twice. Rinse your hands well and dry using a clean towel. ?? Wash your hands after using the toilet, touching animals, coughing or sneezing, preparing meals,and before eating meals. ?? Clean the toilet after each use. ?? Caffeine, tobacco, and alcohol can make your diarrhea, cramping, and pain worse. Consider havingless or giving up these things until you have recovered. Diet ?? Water and clear liquids are important so you don't get dehydrated. Drink a small amount at a time. ?? Don't force yourself to eat, especially if you have cramps, vomiting, or diarrhea. When you finally decide to start eating, don't eat large amounts at a time, even if you are hungry. ?? If you eat, don't have fatty, greasy, spicy, or fried foods. ?? Don't eat dairy products if you have diarrhea. They can make the diarrhea worse. During the first 24 hours (the first full day), follow the diet below ?? Beverages. Water, clear liquids, soft drinks without caffeine, mineral water (plain or flavored), and decaffeinated tea and coffee. ?? Soups. Clear broth, consomm??, and bouillon. Sports drinks aren't a good choice because they have too much sugar and not enough electrolytes. In this case, use products called oral rehydration solutions. ?? Desserts. Plain gelatin, ice pops, and fruit juice bars. During the next 24 hours (the second day) During the second day, you may add to the above list if you are better. If not, continue what you did the first day. ?? Hot cereal, plain toast, bread, rolls, or crackers ?? Plain noodles, rice, mashed potatoes, or chicken noodle or rice soup ?? Unsweetened canned fruit and bananas. Don't eat pineapple or citrus. ?? Limit caffeine and chocolate. No spices or seasonings except salt. During the next 24 hours ?? Gradually go back to a normal diet, as you feel better and your symptoms improve. ?? If at any time your symptoms start getting worse, go back to clear liquids until you feel better. Food preparation ?? If you have diarrhea, don't prepare food for others. When you prepare food for yourself, wash your hands before and after. ?? Wash your hands after using cutting boards, countertops, and knives that have been in contact with raw food. ?? Keep uncooked meats away from cooked and [id number] foods. Follow-up care Follow up with your healthcare provider if you are not improving over the next 2 to 3 days, or as advised. If a stool (diarrhea) sample was taken, call for the results as directed. Call 911 Call 911 if any of these occur: ?? Trouble breathing ?? Chest pain ?? Confusion ?? Severe drowsiness or trouble awakening ?? Seizure ?? Stiff neck When to seek medical advice Call your healthcare provider right away if any of these occur: ?? Increasing belly pain or constant lower right belly pain ?? Continued vomiting (unable to keep liquids down) ?? Frequent diarrhea (more than 5 times a day) ?? Blood in vomit or stool (black or red color) ?? Inability to tolerate solid food after a few days. ?? Dark urine, reduced urine output ?? Weakness or dizziness ?? Drowsiness ?? Fever of 100.4??F (38.0??C) or higher, or as directed by your healthcare provider ?? New rash ?? Symptoms get worse or you have new symptoms Last Reviewed Date: 2021 ?? [id number] [employer]. All rights reserved. This information is not intended as a substitute for professional medical care. Always follow your healthcare professional's instructions. documented in this encounter Plan of Treatment Scheduled Orders Name Type Priority Associated Diagnoses Orde r Schedule EKG 12-LEAD ECG Routine Altered mental status, unspecified altered mental status type ONCE for 1 Occurrences starting 12/05/2021 until 12/05/2021 documented as of this encounter Procedures Procedure Name Priority Date/Time Associated Diagnosis Comments XR CHEST 1VW PORTABLE STAT 12/05/2021 11:20 PM CDT Altered mental status, unspecified altered mental status type CT HEAD WO CONTRAST STAT 12/05/2021 1 1:11 PM CDT Altered mental status, unspecified altered mental status type URINE DRUG SCREEN IMMUNOASSAY STAT 12/05/2021 11:07 PM CDT LACTIC ACID BLOOD REFLEX TO REPEAT STAT 12/05/2021 9:10 PM CDT DRUG SCREEN TOX LIMITED BLD PNL 3 INHOUSE STAT 12/05/2021 9:10 PM CDT TROPONIN I STAT 12/05/2021 9:10 PM CDT C-REACTIVE PROTEIN STAT 12/05/2021 9: 10 PM CDT PT-INR STAT 12/05/2021 9:10 PM CDT CBC W AUTO DIFFERENTIAL STAT 12/05/2021 9:10 PM CDT COMPREHENSIVE METABOLIC PANEL STAT 12/05/2021 9:10 PM CDT MAGNESIUM BLOOD STAT 12/05/2021 9:10 PM CDT HCG BLOOD QUALITATIVE STAT 12/05/2021 9:10 PM CDT documented in this encounter Results * XR CHEST 1VW PORTABLE (12/05/2021 11:20 [...] De Guzman MD on 12/06/2021 7:45 AM Jesus Cabrera MD DIAGNOSTIC IMAGING O RDERABLES * [...] No acute intracranial hemorrhage or loss of dang white differentiation to suggest acute infarct. No [...] No acute intracranial hemorrhage or loss of dang white differentiationto suggest acute infarct. No midline shift or mass lesion. Globes intact. No evident fracture. The visualized paranasal sinuses and mastoid air cells are clear. IMPRESSION: Normal head CT. > Interpreting Provider: Rolf De Guzman MD on 12/06/2021 7:02 AM Jesus Cabrrea MD CT ORDERABLES * (ABNORMAL) URINE DRUG SCREEN IMMUNOASSAY (12/05/2021 11:07 PM CDT) [facility] Amphetamines Screen Urine Not detected Not detected [...] 11:07 PM CDT 12/05/2021 11:07 PM CDT Narrative [facility] - 12/05/2021 11:22 PM CDT [...] ng/mL OPIATES ?300 ng/mL PHENCYCLIDINE(PCP) ??25 ng/mL Jesus Cabrera MD LAB - URINE CHEMISTR Y ORDERABLES [facility] [address] [place] [address] * (ABNORMAL) DRUG SCREEN TOX LIMITED BLD PNL 3 INHOUSE (12/05/2021 9:10 PM CDT) Acetaminophen <3.0(L) 10.0 - 30.0 ug/mL 12/05/2021 9:39 PM CDT [facility] Ethanol <10.0 <10 mg/dL 12/05/2021 9:39 PM CDT [facility] Salicylate <5.0(L) 15.0 - 30.0 mg/dL 12/05/2021 9:39 PM CDT [facility] Blood BLOOD SPECIMEN / Unknown Venipuncture / Unknown 12/05/2021 9:10 PM CDT 12/05/2021 9:17 PM CDT Narrative [facility] - 12/05/2021 9:39 PM CDT [facility] [...] may alter the peak level. Contact the [facility] at or reserved for healthcare professionals to assist you in evaluating potentially toxic acetaminophen levels. Jesus Caberra MD LAB - CHEMISTRY KENDELL Walker Organization Address [facility]/ZIP Co de Phone Number [facility] [address] [place] [address] * HCG BLOOD QUALITATIVE (12/05/2021 9:10 PM CDT) HCG Qual Serum Negative Negative 12/05/2021 9:28 PM CDT [facility] Blood BLOOD SPECIMEN / Unknown Venipuncture / Unknown 12/05/2021 9:10 PM CDT 12/05/2021 9:17 PM CDT Jesus Cabrera MD LAB - CHEMISTRY KENDELL YOU Performing Organization Address [facility]/ZIP Co de Phone Number [facility] [address] [place] [phone] * TROPONIN I (12/05/2021 9:10 PM CDT) Troponin I <0.010 <0.038 ng/mL 12/05/2021 9:39 PM CDT [facility] Blood BLOOD SPECIMEN / Unknown Venipuncture / Unknown 12/05/2021 9:10 PM CDT 12/05/2021 9:17 PM CDT Jesus Cabrera MD LAB - CHEMISTRY KENDELL YOU Performing Organization Address [facility] Co de Phone Number [facility] [address] [place] [phone] * PT-INR (12/05/2021 9:10 PM CDT) PT 13.2 12.1 - 14.8 sec 12/05/2021 9:28 PM CDT [facility] INR 1.0 0.9 - 1.1 12/05/2021 9:28 PM CDT [facility] Blood BLOOD SPECIMEN / Unknown Venipuncture / Unknown 12/05/2021 9:10 PM CDT 12/05/2021 9:17 PM CDT Narrative [facility] - 12/05/2021 9:28 PM CDT Conventional Warfarin Anticoagulant Therapy: INR Reference Range: ??2.0-3.0 Intensive Warfarin Anticoagulant Therapy: INR Reference Range: ? 2.5-3.5 Jesus Cabrera MD LAB - COAGULATION OR DERABLES [facility] [address] [place] [phone] * (ABNORMAL) MAGNESIUM BLOOD (12/05/2021 9:10 PM CDT) Magnesium 1.5(L) 1.6 - 2.6 mg/dL 12/05/2021 9:39 PM CDT [facility] Blood BLOOD SPECIMEN / Unknown Venipuncture / Unknown 12/05/2021 9:10 PM CDT 12/05/2021 9:17 PM CDT Jesus Cabrera MD LAB - CHEMISTRY KENDELL YOU Performing Organization Address [facility] Co de Phone Number [facility] [address] [place] [phone] * LACTIC ACID BLOOD REFLEX TO REPEAT (12/05/2021 9:10 PM CDT) Lactic Acid 0.9 <=2 mmol/L 12/05/2021 9:35 PM CDT [facility] Blood BLOOD SPECIMEN / Unknown Venipuncture / Unknown 12/05/2021 9:10 PM CDT 12/05/2021 9:19 PM CDT Jesus Cabrera MD LAB - CHEMISTRY KENDELL YOU Performing Organization Address [facility] Co de Phone Number [facility] [address] [place] [phone] * C-REACTIVE PROTEIN (12/05/2021 9:10 PM CDT) C-Reactive Protein <0.20 <=0.50 mg/dL 12/05/2021 9:40 PM CDT [facility] Blood BLOOD SPECIMEN / Unknown Venipuncture / Unknown 12/05/2021 9:10 PM CDT 12/05/2021 9:17 PM CDT Jesus Cabrera MD LAB - CHEMISTRY KENDELL YOU [facility] Organization Address City/State/ZIP Co de Phone Number [facility] [address] [place] [address] * (ABNORMAL) COMPREHENSIVE METABOLIC PANEL (12/05/2021 9:10 PM CDT) Glucose 94 70 - 105 mg/dL 12/05/2021 9:39 PM CDT [facility] Sodium 127(L) 136 - 145 mmol/L 12/05/2021 9:39 PM CDT [facility] Potassium 3.2(L) 3.5 - 5.1 mmol/L 12/05/2021 9:39 PM CDT [facility] Chloride 96(L) 98 - 107 mmol/L 12/05/2021 9:39 PM CDT [facility] CO2 18(L) 23 - 31 mmol/L 12/05/2021 9:39 PM CDT [facility] Calcium 8.7 8.4 - 10.4 mg/dL 12/05/2021 9:39 PM CDT [facility] Anion Gap 13 8 - 18 [...] 9:10 PM CDT 12/05/2021 9:17 PM CDT Jesus Cabrera MD LAB - CHEMISTRY KENDELL YOU [facility] Organization Address City/State/ZIP Co de Phone Number [facility] [address] [place] [address] * (ABNORMAL) CBC W AUTO DIFFERENTIAL (12/05/2021 9:10 PM CDT) WBC 7.7 4.4 - 10.7 x10E9/L 12/05/2021 9:21 PM CDT [facility] WBC Corrected 12/05/2021 9:21 PM CDT [facility] RBC 4.08 3.80 - 5.20 x10E12/L 12/05/2021 9:21 PM CDT [facility] Hemoglobin 12.5 12.0 - 15.6 gm/dL [...] - 1.07 x10E9/L 12/05/2021 9:21 PM CDT [facility] Eosinophils Absolute 0.14 0 - 0.47 x10E9/L 12/05/2021 9:21 PM CDT [facility] Basophils Absolute 0.04 0 - 0.08 x10E9/L 12/05/2021 9:21 PM CDT [facility] Immature Granulocytes Absolute 0.02 0.00 - 0.06 x10E9/L 12/05/2021 9:21 PM CDT [facility] nRBC Auto 0 /100 WBC 12/05/2021 9:21 PM CDT [facility] Blood BLOOD SPECIMEN / Unknown Venipuncture / Unknown 12/05/2021 9:10 PM CDT 12/05/2021 9:17 PM CDT Jesus Cabrera MD LAB - HEMATOLOGY ORD ERABLES [facility] [address] [place] [address] documented in this encounter Visit Diagnoses Diagnosis Altered mental status, unspecified altered mental status type Cyclic vomiting syndrome Persistent vomiting Acute nonintractable headache, unspecified headache type Gastroenteritis Other and unspecified noninfectious gastroenteritis and colitis Electrolyte abnormality Electrolyte and fluid disorders not elsewhere classified documented in this encounter Administered Medications Inactive Administered Medications - up to 3 most recent administrations Medication Order MAR Action Action Date Dose Rate Site 0.9% NaCl injection 1-10 mL 1-10 mL, Intracatheter, PRN, Other, peripheral line flush, Starting on Sat12/05/21 at 2103, Until Sat12/06/21 at 0257, Flush peripheral IV catheter with 1-10 mL of normal saline before and after medications and prn to clear blood from the line or to verify patency. 0.9% NaCl injection 3 mL 3 mL, Intracatheter, EVERY 8 HOURS, First dose on Sat12/05/21 at 2200, Until Discontinued, Flush peripheral IV catheter with 3 mL of normal saline every 8 hours. ibuprofen (Motrin) tablet 600 mg 600 mg, Oral, NOW, 1 dose, On Sat12/06/21 at 0000, Maximum allowable amount = 3200 mg / 24 hours. Patient preference for lesser PRN pain meds may be honored when the patient requests a less strong medication, a lower dose, or a less intrusive route of administration when the lesser drug, dose and route have been ordered for the patient. This patient request must be documented in the MAR. $ Given 12/06/2021 12:00 AM CDT 600 mg ondansetron (Zofran) injection 8 mg 8 mg, Intravenous, NOW, 1 dose, On Sat12/05/21 at 2115, Administer over 2 to 5 minutes. $ Given 12/05/2021 9:13 PM CDT 8 mg ondansetron (Zofran) injection ADS Med 1 dose, Starting on Sat12/05/21 at 2106, Until Sat12/05/21 at 2112, Created by cabinet override documented in this encounter Active and Recently Administered Medications Times are shown in CDT. Scheduled Medication Order 12/04/2021 12/05/2021 12/06/2021 0.9% NaCl injection 3 mL(Linked Group 1) 3 mL, Intracatheter, EVERY 8 HOURS, First dose on Sat12/05/21 at 2200, Until Discontinued, Flush peripheral IV catheter with 3 mL of normal saline every 8 hours. 220 (Due) 0.9% NaCl IV bolus 1,000 mL, at 1,935.48 mL/hr, Administer over 31 Minutes, NOW, 1 dose, On Sat12/05/21 at 2115 211 (Stopped - Provider: Kaitlynn Sanchez RN - Comment: pt refused) diphenhydrAMINE (Benadryl) injection 50 mg 50 mg, Intravenous, NOW, 1 dose, On Sat12/05/21 at 2144, Administer IV at a rate not exceeding 25 mg/min. Can dilute in 5-10 mL NS as needed for patient comfort. 2142 (Not Administered - Provider: Kaitlynn Sanchez RN - Reason: Refused-Patient) famotidine (Pepcid) injection 20 mg 20 mg, Intravenous, NOW, 1 dose, On Sat12/05/21 at 5, Dilute with 0.9% NaCl, D5W solution, or SWI to a volume of 5 to 10 mL and administer over at least 2 minutes. 2142 (Not Administered - Provider: Kaitlynn Sanchez RN - Reason: Refused-Patient) haloperidol lactate (Haldol) injection 5 mg 5 mg, Intravenous, NOW, 1 dose, On Sat12/05/21 at 5 2142 (Not Administered - Provider: Kaitlynn Sanchez RN - Reason: Refused-Patient) 0038 (Not Administered - Provider: Kaitlynn Sanchez RN - Reason: Refused-Patient) ibuprofen (Motrin) tablet 600 mg (COMPLETED) 600 mg, Oral, NOW, 1 dose, On Sat12/06/21 at 0000, Maximum allowable amount = 3200 mg / 24 hours. Patient preference for lesser PRN pain meds may be honored when the patient requests a less strong medication, a lower dose, or a less intrusive route of administration when the lesser drug, dose and route have been ordered for the patient. This patient request must be documented in the JUN. 0000 ($ Given - Provider: Kaitlynn Sanchez RN) ondansetron (Zofran) injection 8 mg (COMPLETED) 8 mg, Intravenous, NOW, 1 dose, On Sat12/05/21 at 2114, Administer over 2 to 5 minutes. 2112 ($ Given - Provider: Geni Dougherty RN) PRN Medication Order 12/04/2021 12/05/2021 12/06/2021 0.9% NaCl injection 1-10 mL(Linked Group 1) 1-10 mL, Intracatheter, PRN, Other, peripheral line flush, Starting on Sat12/05/21 at 2103, Until Sat12/06/21 at 0257, Flush peripheral IV catheter with 1-10 mL of normal saline before and after medications and prn to clear blood from the line or to verify patency. Linked Groups Order Group 1: SALINE LOCK, INSERT AND MAINTAIN (CANCELED) Routine, CONTINUOUS, Starting on Sat12/05/21 at 211, Until Specified, New collection And 0.9% NaCl injection 3 mLJump to med 3 mL, Intracatheter, EVERY 8 HOURS, First dose on Sat12/05/21 at 2200, Until Discontinued, Flush peripheral IV catheter with 3 mL of normal saline every 8 hours. And 0.9% NaCl injection 1-10 mLJump to med 1-10 mL, Intracatheter, PRN, Other, peripheral line flush, Starting on Sat12/05/21 at 2103, Until Sat12/06/21 at 0257, Flush peripheral IV catheter with 1-10 mL of normal saline before and after medications and prn to clear blood from the line or to verify patency. documented in this encounter Additional Health Concerns Infection Onset Date Last Indicated Resolved Time COVID-19 Under Investigation 12/05/2021 12/05/2021 12/16/2021 4:33 AM CDT documented as of this encounter
--- OUTSIDE RECORDS SUMMARY | 2024-04-26 21:19 | XMS_ITS | Encounter Summary ---
Author Organization [facility] Health Address [address] [place] [address] Care Team Providers Care Collection Supervisor Name Role Phone Echo Pollard MD Primary Care Provider [phone] David Alicea MD Unavailable Reason for Referral * Radiology Services (Routine) - Closed Specialty Diagnoses / Procedures Referred By Faiza bowden Referred To Contact MRI Diagnoses Chronic migraine w/o aura w/o status migrainosus, not intractable Procedures MRI BRAIN WWO CONTRAST David Alicea MD [address] [facility] [employer] [place] [phone] Referral ID Status Reason Start Date Expiration Date Visits Re quested Visits Authorized [id number] Closed 09/17/2023 09/16/2024 1 1 Reason for Visit * Reason Onset Date Comments Question 08/26/2023 Encounter Details Date Type Department Care Team (Late st Contact Info) Description 08/26/[address] [facility] Neurosciences [address], [facility] [address] [place] [address] David Alicea MD [address] [facility] [employer] [place] [phone] Question Social History Tobacco Use Types Packs/Day Years [...] encounter Miscellaneous Notes * Telephone Encounter - Shaneka Del Castillo CMA - 08/26/2023 4:09 PM CDT Pt stated she is not allergic to contrast. Would like it removed from allergy list. * Telephone Encounter - Shaneka Del Castillo CMA - 08/26/2023 2:21 PM CDT Pt called and asked if she could have her MRI changes to MRI with contrast. documented in this encounter Plan of Treatment Not on file documented as of this encounter Results * MRI BRAIN WWO [...] migraine w/o aura w/o status migrainosus, not intractable- Primary Chronic migraine without aura, without mention of intractable migraine without mention of status migrainosus Chronic migraine w/o aura w/o status migrainosus, not intractable Chronic migraine without aura, without mention of intractable migraine without mention of status migrainosus documented in this encounter Care Teams Collection Supervisor Relationship Specialty Start Date End Date Echo Pollard MD [address] [place] [address]. [address] [place] [phone] PCP - General Family Medicine 05/14/23 David Alicea MD [address] [facility] [address] [place] [address] Neurology 05/14/23 documented as of this encounter
--- OUTSIDE RECORDS SUMMARY | 2024-04-26 21:20 | XMS_ITS | Encounter Summary ---
Author Organization [facility] Address [address] [place] [address] Care Team Providers Care Kennel Worker Name Role Phone Clinic, [facility] Ob/Med Primary Care Provider [phone] Encounter Details Date Type Department Care Team (Latest Contact Info) Description 01/04/2011 9:00 AM CDT - 01/04/2011 11:59 PM CDT Hospital Encounter [facility] MATERNAL/ EVALUATION UNIT [address] [place] [address] Discharge Disposition: Home or Self Care Social History Tobacco Use Types Packs/Day Years Used Date Smoking Tobacco: Smoker, Current Status Unknown Cigarettes Alcohol Use Standard Drinks/Week Comments No 0 (1 standard drink = 0.6 oz pur e alcohol) Comments Yes Sex and Gender Information Value Date Recorded Sex Assigned at Not on file Gender Identity Not on file Sexual Orientation Not on file documented as of this encounter Last Filed Vital Signs Vital Sign Reading Time Taken Comments Blood Pressure 123/85 01/04/2011 12:00 PM CDT Pulse - - Temperature - - Respiratory Rate - - Oxygen Saturation - - Inhaled Oxygen Concentration - - Weight 73.9 kg (163 lb) 01/04/2011 12:00 PM CDT Height - - Body Mass Index - - documented in this encounter Medications at Time of Discharge Medication Sig Dispensed Refills Start Date End Date calcium carbonate (TUMS) 500 MG chew tabletIndications:Hea rtburn Take 1 Tab by mouth as needed. Indications: Heartburn 08/03/2010 docusate sodium (COLACE) 100 MG capsule Take 1 Cap by mouth 2 times daily as needed for Constipation. 60 Cap 5 09/14/2010 levothyroxine (SYNTHROID) 125 MCG tablet Take 125 [...] 4 Grams / 24 hours. 08/03/2010 11/22/2020 documented as of this encounter Progress Notes * Brook Velasco MD - 01/04/2011 1:25 PM CDT [facility] Return Visit Subjective Sahra Parks is a 30 y.o. at 36w6d c/b: Patient Active Problem List Diagnoses Date Noted ??? Seizure disorder 09/14/2010 No medications No recent seizures ??? Carpal tunnel syndrome on left 09/14/2010 Transient, intermittent and more with activity. Consider braces if worsens No complaints today. ??? SAB (spontaneous ) 07/06/2010 H/o 2 sabs (one ?triploidy with Dr. Alejandro, D&C done at [facility]; the other due to low hormone so is on hormone pills now ?progesterone) 1 TAB (took pills) Received records from Dr. Alejandro from 11/1999. U/S revealed gestational sac without pole. D&C pathology revealed immature chorionic villi and decidua. No record of chromosomal studies received from any SAB. ??? ASTHMA 07/06/2010 Remote, no sxs ??? Status post umbilical hernia repair 07/06/[address] Flynn at [facility] ??? Tobacco use complicating or childbirth 07/06/2010 ??? Sequential screen Patient 07/06/2010 NT normal. Second part of screen negative. ??? Supervision of high-risk 06/22/2010 Datinweeks documented scan c/w 13w scan (07/26 was 13w6d) PNL: A+/I/-/-; HIV NR Hbg/Plt: 13.7/ 326 (06/08) Pap: neg Gc/Chl: negative GCT: 76 GBS: uria in May ??? Lupus (systemic lupus erythematosus) 06/22/2010 ?questionable. Pt states she has had symptoms for life but never tested positive CIARRA neg DS DNA antibody, SSA and SSB negative. Schedule weekly BPP, DUNIA, NST ??? h/o Severe pre-eclampsia, antepartum 06/22/2010 H/o in last delivery secondary to elevated BPs Had placenta previa, chorioangioma, severe pre-E 24 hour urine protein 11/30: 158 ??? History of delivery, currently 06/22/2010 36wk spontaneous PTD 33wk induction due to superimposed severe Pre-E ??? S/p cone biopsy of cervix 06/22/2010 CL 3.7 cm ??? HYPOTHYROID 06/22/2010 Component Name 11/30/10 1030 11/08/10 1345 09/14/10 1135 T4FREE 1.22 1.15 1.27 Component Name 11/30/10 1030 11/08/10 1345 10/26/10 1230 TSH 1.90 3.01 2.57 Continue synthroid 125mg daily. ??? Marijuana abuse 06/22/2010 UDS positive for MJ on 07/06/10 ??? Anxiety 06/22/2010 And neurosis; patient denies current symptoms. No medications ??? GBS (group B streptococcus) UTI complicating 06/22/2010 Today she notes shooting pain into her cervix. She reports irregular contractions. She had an episode of leaking in the middle of the night on Saturday night. She has had a small amount of leaking since then. No vaginal bleeding. Positive movement. She reports daily headaches. She sees white spots occasionally. She has shooting pain on her right side. She reports swelling everywhere. Objective Vitals: 01/04/11 1200 BP: 123/85 Weight: 163 lb (73.936 kg) FHT - 130 Physical Exam: Extremities: 1+ edema bilaterally Abdomen: gravid, FH-35 Component Name 01/04/11 1205 09/14/10 1145 COLORUA -- Yellow CHARACTERUA -- Clear SPECGRAVUA -- 1.010 PHUA -- 6.5 PROTEINUA 1+ -- BLOODUA -- NEGATIVE LEUKOCYTEUA -- NEGATIVE NITRITEUA -- NEGATIVE GLUCOSEUA neg -- KETONEUA neg -- BILIRUBINUA -- NEGATIVE UROBILINUA -- 0.2 Component Name 11/30/10 1030 09/14/10 1145 GLUCOSE 64* 72 Assessment Patient Active Problem List Diagnoses Date Noted ??? Seizure disorder 09/14/2010 No medications No recent seizures ??? Carpal tunnel syndrome on left 09/14/2010 Transient, intermittent and more with activity. Consider braces if worsens No complaints today. ??? SAB (spontaneous ) 07/06/2010 H/o 2 sabs (one ?triploidy with Dr. Alejandro, D&C done at [facility]; the other due to low hormone so is on hormone pills now ?progesterone) 1 TAB (took pills) Received records from Dr. Alejandro from 11/1999. U/S revealed gestational sac without pole. D&C pathology revealed immature chorionic villi and decidua. No record of chromosomal studies received from any SAB. ??? ASTHMA 07/06/2010 Remote, no sxs ??? Status post umbilical hernia repair 07/06/[address] Flynn at [facility] ??? Tobacco use complicating or childbirth 07/06/2010 ??? Sequential screen Patient 07/06/2010 NT normal. Second part of screen negative. ??? Supervision of high-risk 06/22/2010 Datinweeks documented scan c/w 13w scan (07/26 was 13w6d) PNL: A+/I/-/-; HIV NR Hbg/Plt: 13.7/ 326 (06/08) Pap: neg Gc/Chl: negative GCT: 76 GBS: uria in May ??? Lupus (systemic lupus erythematosus) 06/22/2010 ?questionable. Pt states she has had symptoms for life but never tested positive CIARRA neg DS DNA antibody, SSA and SSB negative. Schedule weekly BPP, DUNIA, NST ??? h/o Severe pre-eclampsia, antepartum 06/22/2010 H/o in last delivery secondary to elevated BPs Had placenta previa, chorioangioma, severe pre-E 24 hour urine protein 11/30: 158 ??? History of delivery, currently 06/22/2010 36wk spontaneous PTD 33wk induction due to superimposed severe Pre-E ??? S/p cone biopsy of cervix 06/22/2010 CL 3.7 cm ??? HYPOTHYROID 06/22/2010 Component Name 11/30/10 1030 11/08/10 1345 09/14/10 1135 T4FREE 1.22 1.15 1.27 Component Name 11/30/10 1030 11/08/10 1345 10/26/10 1230 TSH 1.90 3.01 2.57 Continue synthroid 125mg daily. ??? Marijuana abuse 06/22/2010 UDS positive for MJ on 07/06/10 ??? Anxiety 06/22/2010 And neurosis; patient denies current symptoms. No medications ??? GBS (group B streptococcus) UTI complicating 06/22/2010 Plan Sahra Parks is a 30 y.o. at 36w6d c/b: 1. Hypothyroid 1. Taking Levo 0.125 mcg 2. TFTs stable at last check, TSH 1.9, free T4 1.22 on 11/30 3. Increased constipation, otherwise asymptomatic. 2. Questionable history of lupus. Receiving testing. No laborotory confirmation to affirmdiagnosis. 3. HTN - BP stable today. Not on meds. 4. Hx of PreE - No symptoms today of PreE. BP wnl 1. 24 hour urine protein was 154 on 11/30. 5. Cone Bx of cervix 6. Hx of PTD 1. 36 wk delivery, refused 17-OHP this 7. Hx of SAB - took hormones earlier this 8. Tob - encouraged cessation 1. Patch gives her rash and gum makes her nautious 9. Seziure d/o - stable, none for 3 years 10. Carpel tunnel syndrome 1. Will order splint 11. GBS urine culture this . Negative NATI. Needs PCN for delivery. 12. U/S 11/08 - reportedly normal growth, CL 3.1 13. Poor social situation. For logistical reasons, will schedule amnio for next , and IOL aweek from Saturday morning if mature. 14. RTC in 1 week D/w Dr. Baldo Velasco MD 01/04/2011 1:25 PM documented in this encounter Plan of Treatment Not on file documented as of this encounter Procedures Procedure Name Priority Date/Time Associated Diagnosis Comments GLUCOSE PROTEIN KETONE URINE - POINT OF CAR Routine 01/04/2011 12:05 PM CDT documented in this encounter Results * AMNIOCENTESIS W US GUIDANCE- MATURITY (01/11/2011 9:10 AM CDT) Anatomical Region Laterality Modality Other 01/11/2011 9:10 AM CDT Narrative 01/11/2011 1:26 PM CDT ? [facility] ? Evaluation and Treatment Unit ?PHONE: ??FAX: Pat. Name: ?SAHRA PARKS Pat. No: ?[id number] Study Date: ?? 01/11/2011 ??9:10am , Age: ? 1980, 30 Pregnancies: ?? 5, Para 2222 LMP: ?Unknown GA by 1st: ?37w6d GA Selected: ??37w6d (From Known E) DEVIN: ?01/26/2011 Referring : KIERA Knapsack Sprayer: ??Nga Phillips RDMS Hist/Ind: ? Lupus/CHTN/Unknown LMP [...] ?? TESTING The Biophysical profile score is 01/29. DOPPLER STUDIES: ?? The umbilical artery Doppler [...] <Electronic Signature> ??01/11/2011 01:26pm Brook Velasco MD [facility] ORDERABLES * GLUCOSE PROTEIN KETONE URINE - POINT OF CAR (01/04/2011 12:05 PM CDT) Glucose UA neg Negative [facility] POCT TESTING Protein UA 1+ Negative [facility] POCT TESTING Ketone UA neg Negative [facility] POCT TESTING QC Verified yes Yes [facility] POC T TESTING Urine specimen (specimen) URINE / Unknown 01/04/2011 12:05 PM CDT Francheska Bishop MD LAB - POINT OF CARE ORDERABLES [place] [address] documented in this encounter Visit Diagnoses Diagnosis Seizure disorder (HCC) Unspecified epilepsy without mention of intractable epilepsy Carpal tunnel syndrome on left Carpal tunnel syndrome Status post umbilical hernia repair, follow-up exam Follow-up examination, following other surgery Tobacco use complicating or childbirth Tobacco use disorder complicating , childbirth, or the puerperium, unspecified as to episode of care or not applicable Screening Screening for unspecified condition History of delivery, currently (HCC) with history of pre-term labor S/P cone biopsy of cervix Other postprocedural status Hypothyroid Unspecified hypothyroidism Marijuana abuse Cannabis abuse, unspecified Anxiety Anxiety state, unspecified GBS (group B streptococcus) UTI complicating (HCC) Infections of genitourinary tract in , unspecified as to episode of care HTN (hypertension) Unspecified essential hypertension Supervision of high-risk Unspecified high-risk Lupus (systemic lupus erythematosus) (HCC) Systemic lupus erythematosus Supervision of high-risk Unspecified high-risk Lupus (systemic lupus erythematosus) (HCC) Systemic lupus erythematosus documented in this encounter Care Teams Kennel Worker Relationship Specialty Start Date End Date Clinic, [facility] Ob/[facility] [address] [place] [address] PCP - General 07/06/10 11/21/20 documented as of this encounter
--- OUTSIDE RECORDS SUMMARY | 2024-04-26 21:20 | XMS_ITS | Encounter Summary ---
Author Organization [facility] Address [address] [place] [address] Care Team Providers Care Inspector Machine Cut Glass Name Role Phone Clinic, [facility] Ob/Med Primary Care Provider Encounter Details Date Type Department Care Team (Latest Contact Info) Description 12/21/2010 9:00 AM CDT - 12/21/2010 11:59 PM T Hospital Encounter [facility] EVAL/TRTMNT [address] [place] [address] Jefferson Monroe MD [address] [facility] [address] [place] [address] Discharge Disposition: Home or Self Care Social [...] mouth every 8 hours as needed. 07/10/2010 Vit-Fe Fumarate-FA ( VITAMIN) 28-0.8 MG tablet Take 1 Tab by mouth daily. acetaminophen (TYLENOL) 500 MG tablet Take 1,000 mg by mouth every 6 hours as needed. Maximum allowable Acetaminophen amount = 4 Grams / 24 hours. 08/03/2010 11/22/2020 documented as of this encounter Plan of Treatment Not on file documented as of this encounter Procedures Procedure Name Priority Date/Time Associated Diagnosis Comments NON-STRESS TEST Routine 12/21/2010 11:49 AM CDT Supervision of high-risk Lupus (systemic lupus erythematosus) (HCC) documented in this encounter Results * NON-STRESS TEST (12/21/2010 11:49 AM CDT) Anatomical Region Laterality Modality Other 12/21/2010 11:4 9 AM CDT Narrative 12/21/2010 1:34 PM CDT ? [facility] ? Evaluation and Treatment Unit ?PHONE: ??FAX: Pat. Name: ?SAHRA MARTINEZ. No: ?[id number] Study Date: ?? 12/21/2010 ??11:49am , Age: ? 1980, 30 Pregnancies: ?? 5, Para 2222 LMP: ?Unknown GA by 1st: ?34w6d GA by US: ? 34w6d GA Selected: ??34w6d (From First S) DEVIN: ?01/26/2011 Referring : KIERA Furniture Repairer: ??Ena Cedeno RDMS Hist/Ind: ? H/O Cone,Lupus,Hypothayroidism, ?H/O PTL/PTD MEASUREMENTS & AGE ? GROWTH EVALUATION Measurement ??GA ? Range ? Srce %for GA Ratios ----- ---- ------- BPD ??8.9 cm 35w6d (58n4e-54e3i) Hadl BPD 64% FL/BPD 0.77 (0.71 - 0.87) HC ??30.9 cm 34w3d (01v7f-46q6p) Hadl HC ??44% FL/AC ??0.22 (0.20 - 0.24) AC ??30.8 cm 34w5d (42s1d-51n5k) Hadl AC ??48% HC/AC ??1.00 (0.94 - 1.13) FL ?? 6.8 cm 35w1d (86b7m-79b8l) Hadl FL ??54% CI ? 0.84 (0.70 - 0.86) HL ?? 5.9 cm 34w0d (70z4f-05s4c) Edmund HL ??36% GA for sonogram 34w6d (58w7w-66x9k) ?? Weight Estimate: based on (HL,BPD,HC,AC,FL) Avg ? Weight: 2545 gm (3938-3016) Hadlo ? : 5lbs, 9oz ? Normal: [...] <Electronic Signature> ??12/21/2010 01:34pm Elaina Marquez MD [facility] ORDERABLES documented in this encounter Visit Diagnoses Diagnosis Supervision of high-risk Unspecified high-risk Lupus (systemic lupus erythematosus) (HCC) Systemic lupus erythematosus documented in this encounter Care Teams Inspector Machine Cut Glass Relationship Specialty Start Date End Date Clinic, [facility] [address] [place] [address] PCP - General 07/06/10 11/21/20 documented as of this encounter
--- OUTSIDE RECORDS SUMMARY | 2024-04-26 21:20 | XMS_ITS | Encounter Summary ---
Author Organization [facility] Address [address] [place] [address] Care Team Providers Care Senior Pharmacy Technician Name Role Phone Clinic, [facility] Ob/Med Primary Care Provider [phone] Reason for Visit * Reason Comments Routine Visit Encounter Details Date Type Department Care Team (Latest Contact Info) Description 08/03/2010 10:30 AM CDT - 08/03/2010 11:59 PM T Hospital Encounter [facility] MATERNAL/ EVALUATION UNIT [address] [place] [address] Discharge Disposition: Home or Self Care Social [...] Sign Reading Time Taken Comments Blood Pressure 128/82 08/03/2010 11:00 AM CDT Pulse - - Temperature - - Respiratory Rate - - Oxygen Saturation - - Inhaled Oxygen Concentration - - Weight 63 kg (139 lb) 08/03/2010 11:00 AM CDT Height - - Body Mass Index - - documented in this encounter Medications at Time of Discharge Medication Sig Dispensed Refills Start Date End Date calcium carbonate (TUMS) 500 MG chew tabletIndications:Hea rtburn Take 1 Tab by mouth as needed. Indications: Heartburn 08/03/2010 levothyroxine (SYNTHROID) 125 MCG tablet Take 125 [...] as of this encounter Progress Notes * Shaneka Hernandez MD - 08/03/2010 1:21 PM CDT R4 HRC S: Pt c/o having relationship issues that cause her to have anxiety throughout the day. Otherwise mood stable. No cramping/VB. O: BP 128/82 Wt 139 lb (63.05 kg). +FHTs Patient Active Problem List Diagnoses Code ??? Supervision of high-risk V23.9K ??? Lupus (systemic lupus erythematosus) 710.0AW ??? h/o Severe pre-eclampsia, antepartum 642.53 ??? HTN (hypertension) 401.9AF ??? History of delivery, currently V23.41F ??? S/p cone biopsy of cervix V45.89GP ??? HYPOTHYROID 244.9AR ??? Marijuana abuse 305.20L ??? Anxiety 300.00E ??? GBS (group B streptococcus) UTI complicating 646.60N ??? SAB (spontaneous ) 634.90S ??? ASTHMA 493.90AE ??? Status post umbilical hernia repair V67.09R ??? Tobacco use complicating or childbirth 649.00B ??? Sequential screen Patient V82.9A Assesment/Plan: Sahra Parks is a 29 y.o. year old at 14w6d: 1. Anxiety/neurosis: Used to be on Xanax prior to but declines meds now even with symptoms. Does not have a psychiatrist. No HI/SI today. 2. H/o severe pre-E prior : asx today, BP normal 3. H/o chorioangioma prior : will eval placenta during anatomy scan, monitor 4. H/o child with deafness s/p severe jaundice 5. Tobacco use, MJ use this : pt. States trying to cut back s/p Pharmacy consult for tobacco cessation 6. CHTN: not on meds, BP nml today 7. H/o deliveryx2: first one labor/Cervical shortening, second delivered early due to severe preE. Need to discuss 17 OHP at next visit. 8. H/o Cone: Cervical length at anatomy scan 9. H/o SABx2: one ?triploidy (need records from D&C) 10. H/o hypothyroidism: on synthroid 125mcg, TFTs today 11. H/o asthma: stable no sxs 12. H/o umbilical hernia repair with mesh 13. GBS uria- needs NATI 14. ?H/o lupus: pt. Claims symptoms for life of just not feeling right, but has been testing and found to be negative multiple times. CIARRA neg recently at Dr. Morris's office (see scanned media). 15. Sequential Screen- Nuchal translucency wnl. Pt given dates to return for 2nd blood draw. Shaneka Hernandez MD 08/03/2010 1:28 PM * Sofia Boo MD - 08/03/2010 1:21 PM CDT MFM Fellow Patient discussed with Dr. Hernandez. Agree with resident exam and findings. Sahra Parks is a 29 y.o. at 14w6d weeks gestation by 6 week ultrasound Assessment/Plan: Sahra Parks is a 29 y.o. at 14w6d. 1. Anxiety/neurosis: 1. Used to be on Xanax (class D) prior to but declines meds now even with symptoms. 2. Does not have a psychiatrist. No HI/SI today. 2. Chronic HTN and H/o severe pre-E prior : asx today, BP normal 1. Consider 24hour urine as a baseline 2. No meds currently 3. H/o chorioangioma prior : will eval placenta during anatomy scan, monitor 4. H/o child with deafness s/p severe jaundice 5. Tobacco use, MJ use this : 1. Pt trying to cut back 2. s/p Pharmacy consult for tobacco cessation 6. H/o deliveryx2: first one labor/Cervical shortening, second delivered early due to severe preE. 1. Consider 17 OHP at next visit. 2. Cervical Length at anatomy scan 7. H/o Cone: Cervical length at anatomy scan 8. H/o SABx2: one ?triploidy (need records from D&C) 9. H/o hypothyroidism: on synthroid 125mcg, TFTs today 10. H/o asthma: stable no sxs 11. H/o umbilical hernia repair with mesh 12. GBS uria- needs NATI 13. ?H/o lupus: pt. Claims symptoms for life of just not feeling right, but has been testing and found to be negative multiple times. CIARRA neg recently at Dr. Morris's office (see scanned media). 14. Sequential Screen- Nuchal translucency wnl. Pt given dates to return for 2nd blood draw. Sofia Boo MD 08/03/2010 8:15 PM documented in this encounter Plan of Treatment Scheduled Orders Name Type Priority Associated Diagnoses Orde r Schedule CULTURE URINE Microbiology Routine ONCE for 1 Occurrences starting 08/03/2010 until 08/03/2010 documented as of this encounter Procedures Procedure Name Priority Date/Time Associated Diagnosis Comments TSH Today 08/03/2010 1:25 PM CDT T4 FREE Today 08/03/2010 1:25 PM CDT GLUCOSE PROTEIN KETONE URINE - POINT OF CAR Routine 08/03/2010 11:17 AM CDT documented in this encounter Results * SONOGRAM - COMPLETE (2010 1:20 PM CDT) Anatomical Region Laterality Modality Other 2010 1:20 PM CDT Narrative 08/23/2010 11:24 AM CDT ? [facility] ? Evaluation and Treatment Unit ?PHONE: ??FAX: Pat. Name: ?SAHRA PARKS Pat. No: ?[id number] Study Date: ?? 2010 ??1:20pm , Age: ? 1980, 29 Pregnancies: ?? 5, Para 0222 LMP: ?Unknown GA by US: ? 17w0d GA Selected: ??17w0d (From Known E) EDVIN: ?01/26/2011 Referring MD: KIERA Continuous Improvement Analyst: ??Nga Phillips RDMS Hist/Ind: ? Anatomic Survey/Hypothyroidism ?H/O PTD x 2/ PreE w/last preg ?H/O Cone Biopsy MEASUREMENTS & AGE ? GROWTH EVALUATION Measurement ??GA ? Range ? Srce %for GA Ratios ----- ---- ------- BPD ??3.7 cm 17w2d (39o6u-38m3x) Hadl BPD 59% FL/BPD 0.63 HC ??13.7 cm 17w1d (18l1p-81k6u) Hadl HC ??55% FL/AC ??0.21 AC ??10.9 cm 16w6d (85b7y-18e9r) Hadl AC ??45% HC/AC ??1.25 (1.08 - 1.27) FL ?? 2.3 cm 17w0d (93s8r-64x3c) Hadl FL ??49% CI ? 0.74 (0.70 - 0.86) HL ?? 2.3 cm 17w0d (71x9h-09d7w) Edmund HL ??49% GA for sonogram 17w0d (02q5d-27i8x) ?? Weight Estimate: based on (HL,BPD,HC,AC,FL) Avg ? Weight: 174 gm (149-200) Hadlock ? : 0lbs, 6oz Cervical Length: ??3.7 cm Heart Rate: 146 bpm CLINICAL SUMMARY Study Number: ??1 A lee fetus is identified in cephalic presentation. ??The measurements today are consistent with appropriate size for the DEVIN provided. ??The DEVIN selected is based on a 6 week, prior ultrasound examination (unconfirmed). ??The amniotic fluid volume is within normal limits. ??The placenta is left lateral, Grade 1. ??No major malformations are seen. ??The patient was advised that ultrasound does not allow detection of all structural or chromosomal abnormalities. ??The transvaginal cervical length measures 3.7cm with no funneling identified. ??No change is seen with fundal pressure. ?? IMPRESSION: ?? 1. ??Lee IUP at 17 weeks EGA 2. ??Normal growth and AFV 3. ??No malformations seen within the limitations of ultrasound 4. ??Normal cervical length RECOMMEND: ?? 1. ??Follow up ultrasound as clinically indicated. ?? Jefferson Monroe MD <Electronic Signature> ??08/23/2010 11:20am Shaneka Hernandez MD [facility] ORDERABLES * T4 FREE (08/03/2010 1:25 PM CDT) T4 Free 1.32 0.89 - 1.76 ng/dl [facility] BLOOD SPECIMEN / Unknown 08/03/2010 1:25 PM CDT 08/03/2010 4:23 PM CDT Shaneka Hernandez MD LAB - CHEMISTRY ORDNany [facility] Performing Organization Address [facility] de Phone Number [facility]OR[facility] [address] [place] [phone] * (ABNORMAL) TSH (08/03/2010 1:25 PM CDT) Pathologist [facility] TSH 4.926(H) 0.55 - 4.78 uIU/ml [facility] BLOOD SPECIMEN / Unknown 08/03/2010 1:25 PM CDT 08/03/2010 4:23 PM CDT Shaneka Hernandez MD LAB - CHEMISTRY ORDNany YOU Performing Organization Address [facility] de Phone Number [facility] [address] [place] [phone] * GLUCOSE PROTEIN KETONE URINE - POINT OF CAR (08/03/2010 11:17 AM CDT) Glucose UA neg Negative [facility] POCT TESTING Protein UA tr Negative [facility] POCT TESTING Ketone UA neg Negative [facility] POCT TESTING QC Verified yes Yes [facility] POC T TESTING Urine specimen (specimen) URINE / Unknown 08/03/2010 11:17 AM CDT Shaneka Hernandez MD LAB - POINT OF CARE ORDERABLES [facility] [place] [address] documented in this encounter Visit Diagnoses Diagnosis Supervision of high-risk Unspecified high-risk S/P cone biopsy of cervix Other postprocedural status Supervision of high-risk Unspecified high-risk S/P cone biopsy of cervix Other postprocedural status documented in this encounter Care Teams Senior Pharmacy Technician Relationship Specialty Start Date End Date Clinic, [facility] Ob/Med [address] [place] [address] PCP - General 07/06/10 11/21/20 documented as of this encounter
--- OUTSIDE RECORDS SUMMARY | 2024-04-26 21:20 | XMS_ITS | Encounter Summary ---
Author Organization [facility] Address [address] [facility] [place] [address] Care Team Providers Care Cosmetics Supervisor Name Role Phone Clinic, [facility] Ob/Med Primary Care Provider [phone] Encounter Details Date Type Department Care Team (Latest Contact Info) Description 09/06/2010 12:01 AM CDT - 09/06/2010 11:59 PM T Hospital Encounter [facility] MATERNAL/ EVALUATION UNIT [address] [place] [address] Jefferson Monroe MD [address] [place] [address] Clinic Discharge Disposition: Home or Self Care Social [...] Diagnoses Diagnosis Supervision of other high-risk (V23.89) ([facility]) Supervision of other high-risk documented in this encounter Care Teams Cosmetics Supervisor Relationship Specialty Start Date End Date Clinic, [facility] Ob/Med [address] [place] [address] PCP - General 07/06/10 11/21/20 documented as of this encounter
--- OUTSIDE RECORDS SUMMARY | 2024-04-26 21:20 | XMS_ITS | Encounter Summary ---
Author Organization [facility] Address [address] [facility] [place] [address] Care Team Providers Care Lawn And Garden Technician Name Role Phone Clinic, [facility] Ob/Med Primary Care Provider [phone] Encounter Details Date Type Department Care Team (Latest Contact Info) Description 07/06/2010 9:00 AM CDT - 07/06/2010 9:57 AM CDT Hospital Encounter [facility] MATERNAL/ EVALUATION UNIT [address] [place] [address] Discharge Disposition: Home or Self Care Social [...] Sig Dispensed Refills Start Date End Date levothyroxine (SYNTHROID) 125 MCG tablet Take 125 mcg by mouth daily before breakfast. Dose increased 06/19/10 per pharmacy refill records ondansetron (ZOFRAN) 4 MG tablet Take 4 mg by mouth every 8 hours as needed. 07/10/2010 Vit-Fe Fumarate-FA ( VITAMIN) 28-0.8 MG tablet Take 1 Tab by mouth daily. progesterone micronized (PROMETRIUM) 100 MG capsule Take 200 mg by mouth 2 times daily. 07/10/2010 08/03/2010 documented as of this encounter Progress Notes * Cynthia Delgado - 07/17/2010 4:36 PM CDT Received records from Dr Alejandro office, Given to Residents to review and sent to medical record department for scanning. * Shanna Marcelino LSW - 07/10/2010 1:51 PM CDT Pt's ph no is now disconnected [phone]. Will try to look for an alternate ph no.The only alternate ph no we have for pt is Zhao Solis and his ph no is the same as pt's. * Monisha Hawkins - 07/06/2010 2:38 PM CDT Late entry I have obtained a signed records release for Dr. Alejandro. This is to obtain D & C and chromosomes labs from [id number]. The office number is [phone]. The fax number is [phone]. I have obtained a signed records release for [facility]. This is to obtain her delivery records from 2002 and 2009. The office number is [phone]. The fax number is [phone]. I have received those medical records from [facility]. I have labeled them and placed them in the folde r for the physicians to review. I have obtained a signed records release for [facility]/Dr. Cabrera. This is to obtain her 2009 records and her op report from her hernia. The office number is [phone]. The fax number is [phone]. I am trying to locate the information on Dr. Miller. This patient has been scheduled to see Dr. Pimentel on her next visit for smoking cessation. I have printed out the information for our Developmental Mathematics Instructor, Shanna Dia. She is out of the office today. I have informed this patient that I will scheduled her an appointment with a Psychiatrist that accepts her insurance. She informed me in front of Shannan Soliz, OB/ WAREHOUSE MANAGER, RN(waiting to discuss with patient about 17-P) that she Knows what her problem is and she does not want to take any medication while she is . I informed the patient that I will make one (1) appointment and that its her choice to attend that appointment or not. * Amanda Khan RN - 07/06/2010 1:48 PM CDT Pt not sure she wants to take 17P/Ro. Wants to research more information before agreeing to take medication. Doesn't want to take medication that might hurt the baby. Pt will let me know at next appt. Information given to pt regarding medication. Lab called with positive UDS; +THC Dr. Everett informed of lab results and that pt wants to find out more about 17P/Ro before agreeing. * Shaun Everett DO - 07/06/2010 12:06 PM CDT R4 addendum Pt just started new dose of synthroid about 2 wk ago. Will recheck TFTs next visit to assess dosing Shaun Everett DO 07/06/2010 12:07 PM * Manuela Robertson, PharmD - 07/06/2010 11:30 AM CDT Sahra Parks (82) July 06, 2010 1130 Referred to HROB clinic for hypertension. Denies SMBP, but does limit her salt intake and tries to exercise by stretching daily. Has GREEN around right eye at least once weekly. Has an aura before onset. She has used Tylenol with codeine prior to and now just tries to use cold packs to relieve her symptoms. Denies SOB and vision changes, orthostasis, edema, and CP. Has chest palpitations which she contributes to her anxiety. She has had more anxiety symptoms lately (daily symptoms) due to personal stress but does not want to take medications and would like to continue to use breathing exercises to relieve her symptoms. Her anxiety symptoms do not limit her daily activities but she does avoid driving due to anxiousness. States she has an over unhealthy feeling and always feels tired. Took xanax prior to preg. Has occ N but vomiting about once daily. Sx improved with zofran and that this is a drastic improvement from previous pregnancies. Has BM 1x/wk with abdominal pain, straining, and incomplete evacuation. This occurred prior to and she has not tried anything for relief. She has GERD symptoms daily after eating. Is only interested in therapy if will be covered byinsurance. She uses a wedge to elevate her body while sleeping. Has 1 serving milk/d, 2 servings cheese/d, and 1 serving of yogurt/d and drinks about 7 glasses of water. She also drinks 2 large sodasand one cup of coffee each day. She denies alcohol use but does smoke up to 10 cigarettes per day. She is interested in cessation but not today. She also has a history of marijuana abuse with her last use about one month ago. States she was never officially diagnosed with lupus but hurts ???everywhere.?? States some physician told her she had 19 symptoms. States she received HPV series prior to 02/28 but is unsure of last Td or influenza vaccine. Has occ blurred vision but admits she needs to start wearing her glasses. Current Medications ([facility]: [phone]) Levothyroxine 0.125 mcg daily (increased 06/19 per pharmacy) Prometrium 200 mg BID Ondansetron 4 mg po Q 8 hours vitamins QDay Denies other OTC/vit/herbals O: BP 121/79 138lb 10w6d DEVIN 01/26 A: cHypertension: Controlled to goal <140/90 without therapy. Patient was encouraged to continue with a low salt diet. GREEN: possibly 2/2 PG and withdrawal, Uncontrolled but relieved with nonpharm treatments, does not want to take any medications for this at this time. Hypothyroidism: unable to assess labs. Patient states she has both hyper and hypothyroid symptoms. On low dose levothyroxine (cat A) but recently had a dose increase and can take 4-6 weeks to see full effects. Smoking cessation: contemplation phase, cessation impt to decrease risks in PG Nausea/Vomiting: likely 2/2 PG, mild sx but improved with low dose 5HT (cat B). GERD: likely 2/2 PG and diet, uncontrolled, antacids can provide abortive tx (cat B) and H2RA (cat B) can help prevent sx and generally safe in PG. Constipation: likely 2/2 PG, uncontrolled, osmotic agent can help provide relief and is not systemically absorbed (cat C) Anxiety: uncontrolled without therapy but improves sx with biofeedback, does not want therapy PGHM: receives the recommended 1200mg/d Ca, on PNV for suppl, unsure when her last influenza, needsTdap (indication: pertussis immunity and in house) but can delay until PP, UTD on HPV. P: 1. Consider checking TSH in 3-4 weeks 2. Encouraged smoking cessation and offered education when ready 3. Recommend famotidine 20 mg daily 4. Educated on nonparm tx for N/V, GERD, decreasing caffeine intake, impt Ca and vaccines, purpose/proper use/potential ADR miralax, famotidine, impt smoking cessation 5. Recommend miralax 1 packet daily in 4-8oz water/juice 6. Consider psychiatry referral 7. F/U HROB as scheduled 8. F/U pharmacy prn D/W Dr Karlos Kapadia, PharmD PGY-1 Information Assurance Approved and co-signed: Manuela Robertson, Pharm.D. * Shaun Everett, - 07/06/2010 10:59 AM CDT R4 Initial HROB Visit CC: Initial HROB visit HPI: Sahra Parks is being seen today for her first HR obstetrical visit. She is at 10 and 6/7 weeks gestation by 6w doc US Her obstetrical history is significant for Patient Active Problem List Diagnoses Date Noted ??? SAB (spontaneous ) [634.90S] 07/06/2010 H/o 2 sabs (one ?triploidy with Dr. Alejandro, D&C done at [facility]; the other due to low hormone so is on hormone pills now ?progesterone) 1 TAB (took pills) ??? ASTHMA [493.90AE] 07/06/2010 Remote, no sxs ??? Status post umbilical hernia repair [V67.09R] 07/06/[address] Flynn at [facility] ??? Tobacco use complicating or childbirth [649.00B] 07/06/2010 ??? Supervision of high-risk [V23.9K] 06/22/2010 Datinweeks documented scan PNL: A+/I/-/?; HIV NR Hbg/Plt: 13.7/ 326 (06/08) Hgb Elec: Sequential screen: Pap: neg Gc/Chl: GCT: GBS: uria ??? Lupus (systemic lupus erythematosus) [710.0AW] 06/22/2010 ?questionable. Pt states she has had symptoms for life but never tested positive CIARRA neg ??? h/o Severe pre-eclampsia, antepartum [642.53] 06/22/2010 H/o in last delivery secondary to elevated BPs Had placenta previa, chorioangioma, severe pre-E ??? HTN (hypertension) [401.9AF] 06/22/2010 ??? History of delivery, currently [V23.41F] 06/22/2010 x2 (@ 33, 36w) ??? S/p cone biopsy of cervix [V45.89GP] 06/22/2010 ??? HYPOTHYROID [244.9AR] 06/22/2010 ??? Marijuana abuse [305.20L] 06/22/2010 ??? Anxiety [300.00E] 06/22/2010 And neurosis ??? GBS (group B streptococcus) UTI complicating [646.60N] 06/22/2010 No contractions/bleeding No movement yet Past OB History: Obstetric History T0 TAB1 SAB0 E0 M0 L2 WAREHOUSE MANAGER History: H/o Cone biopsy at age 17; paps normal since Denies STDs/HSV Name of Baby 1 Not recorded ??? Outcome Date Not recorded GA Not recorded ??? Delivery Type Not recorded ??? at 1 min. Not recorded at 5 min. Not recorded ??? Living Not recorded Name of Baby 2 Not recorded ??? Outcome Date Not recorded GA Not recorded ??? Delivery Type Not recorded ??? at 1 min. Not recorded at 5 min. Not recorded ??? Living Not recorded Name of Baby 3 Not recorded ??? Outcome Date Not recorded GA Not recorded ??? Delivery Type Not recorded ??? at 1 min. Not recorded at 5 min. Not recorded ??? Living Not recorded Name of Baby 4 Not recorded ??? Outcome Date Not recorded GA Not recorded ??? Delivery Type Not recorded ??? at 1 min. Not recorded at 5 min. Not recorded ??? Living Not recorded Name of Baby 5 Orikathleen ??? Outcome Date 2002 [place] 36w 0d ??? Delivery Type ??? at 1 min. Not recorded at 5 min. Not recorded ??? Living Yes Name of Baby 6 Royal ??? Outcome Date 2009 GA 33w 0d ??? Delivery Type Not recorded ??? at 1 min. Not recorded at 5 min. Not recorded ??? Living Yes Past Medical History: Past Medical History Diagnosis Date ? Anxiety ??? HYPOTHYROID ??? Short cervix affecting s/p cone ??? HTN (hypertension) ??? HEADACHE ??? ASTHMA ??? ANEMIA ??? Cholesterol serum increased Past Surgical History: Past Surgical History Procedure Date ??? Cervical biopsy, cone ??? Hernia repair Mesh patch in abdominal wall for umbilical hernia (at [facility] by Dr. Miller) Social History: History Smoking status ??? Smoker, Current Status Unknown -- 0.3 packs/day Smokeless tobacco ??? Not on file History Alcohol Use No History Drug Use No Medications: No current outpatient prescriptions on file prior to encounter. Synthroid 125 mcg (thinks she is a hyper-hypo ) pnv (gummies) zofran hormone pill ?progesterone Allergies: Allergies Allergen Reactions ??? Morphine Anaphylaxis ??? Sulfa Drugs Rash and Nausea and/or Vomiting Family History: Family History Problem Relation Age of Onset ??? Hypertension Mother ??? Asthma Mother ??? Hepatitis Mother C ??? Cancer Breast Maternal Grandmother ??? Heart Disease both sides of families ??? OTHER Sister ovarian cysts Review of Systems: neg except for as per HPI OBJECTIVE: BP 121/79 Wt 138 lb (62.596 kg) General: alert, cooperative, no distress Head: normocephalic, without trauma Neck: supple, symmetrical, trachea midline, no adenopathy, thyroid: not enlarged, symmetric, no tenderness/mass/nodules, no carotid bruit and no JVD Lungs: clear to auscultation bilaterally Heart: regular rate and rhythm, S1, S2 normal, no murmur, click, rub or gallop Abdomen: Abdomen soft, non-tender. BS normal. No masses or organomegaly Pelvis: Exam deferred. Extremities: extremities normal, atraumatic, no cyanosis or edema Assesment/Plan: Sahra Parks is a 29 y.o. year old at 10w6d 1. Initial HROB visit: 2. labs: will get RPR, GCCT, UDS 3. Will request records from [facility] for h/o preE, chorioangioma, triploid?Ab, and umbilical hernia repair with mesh 4. Will need dating ultrasound, CL later 5. Continue vitamins 6. Anxiety/neurosis: Used to be on Xanax prior to but declines meds now. Does not have a psychiatrist. Will refer to psych & SW. No HI/SI today 7. H/o severe pre-E prior : asx today, BP normal 8. H/o chorioangioma prior : will eval placenta during anatomy scan, monitor 9. H/o child with deafness s/p severe jaundice 10. Tobacco use, MJ use this : pt. States trying to cut back Pharmacy consult for tobacco cessation, UDS today 11. CHTN: not on meds, BP nml today 12. H/o deliveryx2: first one labor/Cervical shortening, second delivered early dueto severe preE 13. H/o Cone 14. H/o SABx2: one ?triploidy (need records from D&C); one from low hormone on ?progesterone pills now. 15. H/o hypothyroidism: on synthroid 125mcg, TFTs today 16. H/o asthma: stable no sxs 17. H/o umbilical hernia repair with mesh (need records) 18. GBS uria 19. ?H/o lupus: pt. Claims symptoms for life of just not feeling right, but has been testing and found to be negative multiple times. CIARRA neg recently at Dr. Arturo's office (see scanned media). 20. Sequential Screen discussed: pt. Desires it, will schedule first look 21. DW Dr. Monroe Will order 17OHP to start at 16wk, CL @ 16wk Follow-up in 4 weeks Shaun Everett DO 07/06/2010 11:40 AM * Jefferson Monroe MD - 07/06/2010 10:59 AM CDT M I have reviewed Sahra Parks with Dr. Everett. I agree with the above assessment, findings, and plans. I have the following additions: i concur with all of Dr. Mcleod's documentation above. Do not have additions at this juncture. Discussed oral / IM progesterone. Reviewed US surveillance of CL. Jefferson Monroe MD documented in this encounter Miscellaneous Notes * Miscellaneous Scans - Document, Scanned - 07/11/2010 1:16 PM CDT * Miscellaneous Scans - Document, Scanned - 07/11/2010 1:16 PM CDT documented in this encounter Plan of Treatment Not on file documented as of this encounter Procedures Procedure Name Priority Date/Time Associated Diagnosis Comments CHLAMYDIA + GC AMPLIFIED PROBE Today 07/06/2010 12:05 PM CDT RPR Today 07/06/2010 12:00 PM CDT DRUG SCREEN URINE TRIAGE PANEL Today 07/06/2010 11:50 AM CDT GLUCOSE PROTEIN KETONE URINE - POINT OF CAR Routine 07/06/2010 10:12 AM CDT documented in this encounter Results * CHLAMYDIA + GC DNA PROBE AMPLIFIED (07/06/2010 12:05 PM CDT) Chlamydia trachomatis Amplified Probe Neg [facility] GC Amplified Probe Neg [facility] Comment Amplified Probe [facility] Comment: Comments and Normal Ranges for Component ??DNA Probe comment Results based on detection/no detection of ribosomal RNA by amplified method. Comment resent due to interface error [facility] URINE / Unknown 07/06/2010 1 2:05 PM CDT 07/06/2010 12:55 PM CDT Narrative Resulting Agency Comment Performed By [facility] ? [address] ? [place] [address] Shaun Taylor DO LAB - MICROBIOLOGY O RDERABLES Performing Organization Address City/[facility] Co de Phone Number [facility] [address] [place] [address] * RPR (07/06/2010 12:00 PM CDT) RPR Non-Reacti ve Non Reactive [facility] BLOOD SPECIMEN / Unknown 07/06/2010 12:00 PM CDT 07/06/2010 12:52 PM CDT Shaun Taylor DO LAB - CHEMISTRY ORDE RABLES Performing Organization Address [facility] Co de Phone Number [facility] [address] [place] [address] * (ABNORMAL) DRUG SCREEN TRIAGE PANEL (07/06/2010 11:50 AM CDT) Pathologist [facility] Phencyclidine Screen Urine Negative Negative ng/ml [facility] Benzodiazepines Screen Urine Negative Negative ng/ml [facility] Cocaine Screen Urine Negative Negative ng/ml [facility] Amphetamines Screen Urine Negative Negative ng/ml [facility] Cannabinoids Screen Urine Presumptive Positive(AA) Negative ng/ml [facility] Opiate Screen Urine Negative Negative ng/ml [facility] Barbiturates Screen Urine Negative Negative ng/ml [facility] URINE / Unknown 07/06/2010 1 1:50 AM CDT 07/06/2010 12:56 PM CDT Shaun Taylor DO LAB - URINE CHEMISTR Y ORDERABLES Performing Organization Address [facility] Co de Phone Number [facility] [address] [place] [address] * GLUCOSE PROTEIN KETONE URINE - POINT OF CAR (07/06/2010 10:12 AM CDT) Glucose UA neg Negative [facility] Protein UA neg Negative [facility] Ketone UA neg Negative [facility] QC Verified yes Yes [facility] Urine specimen (specimen) URINE / Unknown 07/06/2010 10:12 AM CDT Shaun Taylor DO LAB - POINT OF CARE ORDERABLES [facility] [place] [address] documented in this encounter Visit Diagnoses Diagnosis HTN (hypertension) Unspecified essential hypertension History of delivery, currently (HCC) with history of pre-term labor S/P cone biopsy of cervix Other postprocedural status Hypothyroid Unspecified hypothyroidism Marijuana abuse Cannabis abuse, unspecified Anxiety Anxiety state, unspecified GBS (group B streptococcus) UTI complicating (HCC) Infections of genitourinary tract in , unspecified as to episode of care documented in this encounter Care Teams Lawn And Garden Technician Relationship Specialty Start Date End Date Clinic, [facility] Ob/Med [address] [place] [address] PCP - General 07/06/10 11/21/20 documented as of this encounter
--- OUTSIDE RECORDS SUMMARY | 2024-04-26 21:20 | XMS_ITS | Encounter Summary ---
Author Organization [facility] Address [address] [place] [address] Care Team Providers Care Event Promoter Name Role Phone Clinic, [facility] Ob/Med Primary Care Provider [phone] Encounter Details Date Type Department Care Team (Latest Contact Info) Description 01/04/2011 8:00 AM CDT - 01/04/2011 8:59 AM T Hospital Encounter [facility] EVAL/TRTMNT [address] [place] [address] Discharge Disposition: Home or Self Care Social [...] on filedocumented in this encounter Care Teams Event Promoter Relationship Specialty Start Date End Date Clinic, [facility] Ob/Med [address] [place] [address] PCP - General 07/06/10 11/21/20 documented as of this encounter
--- OUTSIDE RECORDS SUMMARY | 2024-04-26 21:20 | XMS_ITS | Encounter Summary ---
Author Organization [facility] Address [address] [facility] [place] [address] Care Team Providers Care Computer Engineer Name Role Phone Clinic, [facility] Ob/Med Primary Care Provider [phone] Encounter Details Date Type Department Care Team (Latest Contact Info) Description 11/07/2010 12:01 AM CDT - 11/07/2010 11:59 PM T Hospital Encounter [facility] MATERNAL/ EVALUATION UNIT [address] [place] [address] Jefferson Monroe MD [address] [place] [address] Clinic Discharge Disposition: Home or Self Care [...] high-risk documented in this encounter Care Teams Computer Engineer Relationship Specialty Start Date End Date Clinic, [facility] Ob/Med [address] [place] [address] PCP - General 07/06/10 11/21/20 documented as of this encounter
--- OUTSIDE RECORDS SUMMARY | 2024-04-26 21:20 | XMS_ITS | Encounter Summary ---
Author Organization [facility] Address [address] [facility] [place] [address] Care Team Providers Care Business Consult Name Role Phone Clinic, [facility] Primary Care Provider Encounter Details Date Type Department Care Team (Latest Contact Info) Description 09/14/2010 8:30 AM CDT - 09/14/2010 11:59 PM CDT Hospital Encounter [facility] MATERNAL/ EVALUATION UNIT [address] [facility] [place] [address] Discharge Disposition: Home or Self Care Social [...] Sign Reading Time Taken Comments Blood Pressure 131/83 09/14/2010 9:00 AM CDT Pulse - - Temperature - - Respiratory Rate - - Oxygen Saturation - - Inhaled Oxygen Concentration - - Weight 63 kg (139 lb) 09/14/2010 9:00 AM CDT Height - - Body Mass Index - - documented in this encounter Discharge Instructions * Patient Instructions* Monisha Hawkins - 09/14/2010 11:43 AM CDT NEW ULTRASOUND LOCATION Your ultrasound is scheduled for October 04, 2010 at 9 am. This appointment is located in the Hospital on the Ground Floor at the OB Clinic Elevator. CHECK IN AT THE WINDOW. The phone number is [phone], in case you are lost, late, or needing to reschedule. documented in this encounter Medications at Time [...] as of this encounter Progress Notes * Roberto Serrano MD - 09/14/2010 10:35 AM CDT R1 High Risk Clinic Return Visit 09/14/2010 Subjective Sahra Rosamaria Parks is a 30 y.o. at 20w6d by 6wk US, c/b: Patient Active Problem List Diagnoses Date Noted ??? SAB (spontaneous ) 07/06/2010 H/o 2 sabs (one ?triploidy with Dr. Alejandro, D&C done at [facility]; the other due to low hormone [...] repair 07/06/[address] Flynn at [facility] ??? Tobacco use complicating or childbirth 07/06/2010 ??? Sequential screen Patient 07/06/2010 NT normal. Second part of screen negative. ??? Supervision of high-risk 06/22/2010 Datinweeks documented scan c/w 13w scan (07/26 was 13w6d) PNL: A+/I/-/-; HIV NR Hbg/Plt: 13.7/ 326 (06/08) Hgb Elec: Sequential screen: Pap: neg Gc/Chl: GCT: GBS: uria ??? Lupus (systemic lupus erythematosus) 06/22/2010 ?questionable. Pt states she has had symptoms for life but never tested positive CIARRA neg ??? h/o Severe pre-eclampsia, antepartum 06/22/2010 H/o in last delivery secondary to elevated BPs Had placenta previa, chorioangioma, severe pre-E ??? HTN (hypertension) 06/22/2010 ??? History of delivery, currently 06/22/2010 x2 (@ 33, 36w) ??? S/p cone biopsy of cervix 06/22/2010 ??? HYPOTHYROID 06/22/2010 ??? Marijuana abuse 06/22/2010 UDS positive for MJ on 07/06/10 ??? Anxiety 06/22/2010 And neurosis ??? GBS (group B streptococcus) UTI complicating 06/22/2010 Today she notes that she has been having some intermittent swelling in her left forearm and hand with increased activity, and tingling sensation in her thumb and pointer finger. She denies having uterine contractions. She reports active movment. Vaginal Bleeding: none Vaginal discharge: negative LOF: negative Objective Vitals: 09/14/10 0900 BP: 131/83 Weight: 139 lb (63.05 kg) FH: At umbilicus FHT: 144 Component Name 09/14/10 0923 PROTEINUA neg GLUCOSEUA neg KETONEUA neg Component Name 08/03/10 1325 TSH 4.926* Component Name 08/03/10 1325 T4FREE 1.32 Assessment/Plan: Sahra Parks is a 30 y.o. at 20w6d c/b: 1. Anxiety/neurosis: ?? Used to be on Xanax prior to but declines meds now even with symptoms. ?? Offered buspar, but pt declines ?? Does not have a psychiatrist. ?? No HI/SI today. 2. H/o severe pre-E prior : ?? Pt has hx of GREEN weekly and has been having GREEN about 3x week, that are relieved with rest ?? She also reports seening some spots 3x day for last 9 years that lasts for 2 sec, denies persistent scotoma or blurring ?? asymptomatic today ?? BP normal ?? preE symptoms discussed and precautions given ?? Will complete 24 hour urine 3. H/o chorioangioma prior : will eval placenta during anatomy scan, monitor 4. H/o child with deafness s/p severe jaundice 5. Tobacco abuse: ?? 1/2 pack per day ?? pt. States trying to cut back s/p Pharmacy consult for tobacco cessation 6. MJ use this : ?? Denies use for last 2 months ?? UDS today 7. CHTN: ?? not on meds ?? BP nml today 8. H/o deliveryx2: ?? first one labor/Cervical shortening 36 wks, second delivered 34wks due to severe preE 9. H/o Cone: Normal cervical length at anatomy scan 3 weeks ago 10. H/o SABx2: one ?triploidy (need records from D&C) 11. hypothyroidism: ?? on synthroid 125mcg ?? TFTs with normal T4 and slightly elevated TSH ?? Recheck TFT's today 12. asthma: ?? stable no sxs or use of albuterol for 1 month ?? albuterol prn 13. H/o umbilical hernia repair with mesh 14. GBS uria- UA with culture today for NATI 15. ?H/o lupus: pt. Claims symptoms for life of just not feeling right, but has been testing and found to be negative multiple times. CIARRA neg recently at Dr. Morris's office (see scanned media). 16. Seizure disorder: ?? Pt describes complex partial seizures ?? No medications and claims that medications increase her seizures ?? No seizure for over 2 years ?? Consider neurology consult. 17. Carpal tunnel: ?? Transient with increased activity ?? Consider braces if worsens 18. Sequential Screen- Nuchal translucency wnl. Blood testing results normal as well 19. Return to clinic in [address] Ema Serrano MD 09/14/2010 10:35 AM * Santosh Bland MD - 09/14/2010 10:35 AM CDT MFM Fellow Patient discussed with Dr. Serrano. Agree with resident exam and findings. Sahra Parks is a 30 y.o. at 20w6d weeks gestation by 6 week ultrasound. Transfer of care from [facility]. The patient reports no bleeding, cramping/contractions or leaking of fluid. Movement: normal.Pt notes some vag dc is concerned about possible STD infection. Pt notes headaches at baseline, anxiety attacks daily. Pt reports history of seizure d/o (last several years ago). Considering tobacco cessation- not ready yet. history clarified today- 2 deliveries- 1 at 36 weeks (spontaneous), 1 at 33wk (induced due to severe pre-e). Assessment/Plan: Sahra Parks is a 30 y.o. at 20w6d. 1. CHTN, H/o severe pre-E prior : not on meds, BP nml today preE symptoms discussed and precautions given Will complete 24 hour urine, CMP today testing beginning 32wk Growth scans every 4 weeks beginning at 24 weeks (ordered) 2. Anxiety/neurosis: Used to be on Xanax prior to but declines meds now even with symptoms. Offered buspar, but pt declines Does not have a psychiatrist. Recommend getting established with psychiatrist/counselor No HI/SI today. 3. Hypothyroidism: on synthroid 125mcg TFTs with normal T4 and slightly elevated TSH Recheck TFT's today (repeat q month) 4. H/o chorioangioma prior : ?? Normal placenta at anatomy scan 5. H/o child with deafness s/p severe jaundice (36wk delivery) 6. Tobacco abuse: 1/2 pack per day pt. States trying to cut back s/p Pharmacy consult for tobacco cessation Not ready to quit 7. MJ use this : Denies use for last 2 months UDS today 8. H/o deliveryx2: first one labor/Cervical shortening 36 wks, second delivered 34wks due to severe preE 9. H/o Cone in 1995: ?? Normal cervical length at anatomy scan ?? Repeat CL at 24wk 10. Asthma: stable no sxs or use of albuterol for 1 month albuterol prn 11. H/o umbilical hernia repair with mesh 12. Seizure disorder: Pt describes complex partial seizures No medications and claims that medications increase her seizures No seizure for over 2 years 13. GBS uria- UA with culture today for NATI 14. ?H/o lupus: pt. Claims symptoms for life of just not feeling right, but has been testing and found to be negative multiple times. CIARRA neg recently at Dr. Morris's office (see scanned media). F/U 4wk MD visit, ultrasound (growth/CL) DW Dr. Baldo Boo MD 09/14/2010 11:25 AM MFM Attending Note I reviewed history and physical exam with Dr. Boo at the time of the visit. Patient is 20w6d The patient presents with Patient Active Problem List Diagnoses ??? Supervision of high-risk ??? Lupus (systemic lupus erythematosus) ??? h/o Severe pre-eclampsia, antepartum ??? HTN (hypertension) ??? History of delivery, currently ??? S/p cone biopsy of cervix ??? HYPOTHYROID ??? Marijuana abuse ??? Anxiety ??? GBS (group B streptococcus) UTI complicating ??? SAB (spontaneous ) ??? ASTHMA ??? Status post umbilical hernia repair ??? Tobacco use complicating or childbirth ??? Sequential screen Patient ??? Seizure disorder ??? Carpal tunnel syndrome on left . Exam and assessment show vss and size = dates Blood pressure 131/83, weight 139 lb (63.05 kg). I agree with diagnosis as documented in the resident/fellow note. Documented plan of care is appropriate and I agree with the following revisions: None u/s Santosh Bland MD documented in this encounter Plan of Treatment Not on file documented as of this encounter Procedures Procedure Name Priority Date/Time Associated Diagnosis Comments URINALYSIS REFLEX TO MICROSCOPIC NO CULTURE Today 09/14/2010 11:45 AM CDT CHLAMYDIA + GC AMPLIFIED PROBE Today 09/14/2010 11:45 AM CDT CULTURE URINE Today 09/14/2010 11:45 AM CDT COMPREHENSIVE METABOLIC PANEL Today 09/14/2010 11:45 AM CDT DRUG SCREEN URINE TRIAGE PANEL Today 09/14/2010 11:45 AM CDT CBC W AUTO DIFFERENTIAL Today 09/14/2010 11:35 AM CDT TSH Today 09/14/2010 11:35 AM CDT T4 FREE Today 09/14/2010 11:35 AM CDT GLUCOSE PROTEIN KETONE URINE - POINT OF CAR Routine 09/14/2010 9:23 AM CDT documented in this encounter Results * PROTEIN URINE TIMED QUANTITATIVE (11/30/2010 10:30 AM CDT) Volume 24 Hour Urine 1480 ml [facility] Protein 24 Hour Urine 153.9 42 - 225 mg/24hr [facility] URINE SPECIMEN COLLECTION, 24 HOURS / Unknown 11/30/2010 10:30 AM CDT 11/30/2010 11:16 AM CDT Roberto Serrano MD LAB - URINE CHEMISTR Y ORDERABLES Performing Organization Address City/State/[facility] Co de Phone Number [facility] [address] [place] [address] * CHLAMYDIA + GC DNA PROBE AMPLIFIED (09/14/2010 11:45 AM CDT) Chlamydia trachomatis Amplified Probe NEGATIVE [facility] GC Amplified Probe NEGATIVE [facility] Comment Amplified Probe [facility] Comment: Comments and Normal Ranges for Component ??Amplified Probe Comment Results based on detection/no detection of ribosomal RNA by amplified method. ENTIRE ENDOCERVIX / Unknown 09/14/2010 11:45 AM CDT 09/14/2010 11:58 AM CDT Narrative Resulting Agency Comment Performed By [facility] ? [address] ? [place] [address] Roberto Serrano MD LAB - MICROBIOLOGY O RDBRENDEN Performing Organization Address [facility] de Phone Number [facility] [address] [place] [address] * (ABNORMAL) COMPREHENSIVE METABOLIC PANEL (09/14/2010 11:45 AM CDT) Sodium 137 137 - 145 mmol/L [facility] Potassium 4.0 3.6 - 5.0 mmol/L [facility] Chloride 103 98 - 107 mmol/L [facility] BUN 10 7 - 17 mg/dl [facility] Creatinine 0.64 0.52 - 1.04 mg/dl [facility] Glucose 72 65 - 105 mg/dl [facility] Calcium 8.8 8.4 - 10.2 mg/dl [facility] Alkaline Phosphatase 47 38 - 126 U/L [facility] AST 19 8 - 39 U/L [facility] Bilirubin Total 0.4 0.2 - 1.3 mg/dl [facility] Protein Total 6.7 6.3 - 8.2 gm/dl [facility] Albumin 3.4(L) 3.9 - 5.0 gm/dl [facility] CO2 22 22 - 30 mmol/L [facility] ALT 16 9 - 52 U/L [facility] eGFR by MDRD 110 >60 mL/min/1.7 3m2 [facility] Comment eGFR [facility] Comment: ? The eGFR does not apply to patients who are younger than ? 18 or older than 70. BLOOD SPECIMEN / Unknown 09/14/2010 11:45 AM CDT 09/14/2010 11:57 AM CDT Sofia Boo MD LAB - CHEMISTRY KENDELL YOU Performing Organization Address [facility] Co de Phone Number [facility] [address] [place] [address] * (ABNORMAL) DRUG SCREEN TRIAGE PANEL (09/14/2010 11:45 AM CDT) Phencyclidine Screen Urine Negative Negative ng/ml [facility] Benzodiazepines Screen Urine Negative Negative ng/ml [facility] Cocaine Screen Urine Negative Negative ng/ml [facility] Amphetamines Screen Urine Negative Negative ng/ml [facility] Cannabinoids Screen Urine Presumptive Positive(AA) Negative ng/ml [facility] Opiate Screen Urine Negative Negative ng/ml [facility] Barbiturates Screen Urine Negative Negative ng/ml [facility] URINE / Unknown 09/14/2010 1 1:45 AM CDT 09/14/2010 12:09 PM CDT Roberto Serrano MD LAB - URINE CHEMISTR Y ORDERABLES Performing Organization Address [facility] Co de Phone Number [facility] [address] [place] [address] * CULTURE URINE (09/14/2010 11:45 AM CDT) Result [facility] Comment: Final CULTURE No Growth (<1000 CFU/mL) URINE SPECIMEN OBTAINED BY CLEAN CATCH PROCEDURE / Unknown 09/14/2010 11:45 AM CDT 09/14/2010 12:09 PM CDT Narrative Resulting Agency Comment Performed By [facility];[address] [place] [address];[place] [address] Roberto Serrano MD LAB - MICROBIOLOGY O RDERABLES Performing Organization Address City/[facility] Co de Phone Number [facility] [address] [place] [address] * URINALYSIS ROUTINE AUTO (09/14/2010 11:45 AM CDT) Source Clean Catch [facility] Color UA Yellow [facility] Character UA Clear [facility] Glucose UA NEGATIVE NEGATIVE mg/dl [facility] Bilirubin UA NEGATIVE NEGATIVE [facility] Ketone UA NEGATIVE NEGATIVE mg/dl [facility] Specific [place] UA 1.010 1.003 - 1.030 [facility] Blood UA NEGATIVE NEGATIVE [facility] pH UA 6.5 5.0 - 9.0 [facility] Protein UA NEGATIVE NEGATIVE-TR URBAN mg/dl [facility] Urobilinogen UA 0.2 0.2 - 1.0 Debbie Units/dl [facility] Nitrite UA NEGATIVE NEGATIVE [facility] Leukocyte UA NEGATIVE NEGATIVE [facility] URINE SPECIMEN OBTAINED BY CLEAN CATCH PROCEDURE / Unknown 09/14/2010 11:45 AM CDT 09/14/2010 12:09 PM CDT Roberto Serrano MD LAB - URINALYSIS ORD ERABLES [facility] [address] [place] [address] * (ABNORMAL) CBC W AUTO DIFFERENTIAL (09/14/2010 11:35 AM CDT) WBC 10.6(H) 4.0 - 10.0 K/CUMM [facility] RBC 4.06 3.80 - 5.80 M/CUMM [facility] Hemoglobin 12.1 12.0 - 16.0 gm/dl [facility] Hematocrit 36.0(L) 37.0 - 47.0 % [facility] MCV 88.7 80.0 - 100.0 fl [facility] MCH 29.8 26.0 - 34.0 pg [facility] MCHC 33.6 31.0 - 37.0 gm/dl [facility] Platelet Count 248 150 - 400 K/CUMM [facility] RDW 13.4 11.5 - 14.5 % [facility] Granulocytes % 65.3 50 - 70 % [facility] Lymphocytes % 24.5 20 - 40 % [facility] Monocytes % 5.7 0 - 12 % [facility] Eosinophils % 3.7 0 - 5 % [facility] Basophils % 0.2 0 - 2 % [facility] Granulocytes Absolute 6.94 2.00 - 7.00 x1000/cmm [facility] Lymphocytes Absolute 2.60 0.80 - 4.00 x1000/cmm [facility] Monocytes Absolute 0.60 0.00 - 1.20 x1000/cmm [facility] Eosinophils Absolute 0.39 0.00 - 0.50 x1000/cmm [facility] Basophils Absolute 0.02 0.00 - 0.20 x1000/cmm [facility] BLOOD SPECIMEN / Unknown 09/14/2010 11:35 AM CDT 09/14/2010 11:58 AM CDT Roberto Serrano MD LAB - HEMATOLOGY ORD ERABLES [facility] [address] [place] [address] * T4 FREE (09/14/2010 11:35 AM CDT) T4 Free 1.27 0.89 - 1.76 ng/dl [facility] BLOOD SPECIMEN / Unknown 09/14/2010 11:35 AM CDT 09/14/2010 11:58 AM CDT Roberto Serrano MD LAB - CHEMISTRY KENDELL YOU Performing Organization Address [facility] Co de Phone Number [facility] [address] [place] [address] * TSH (09/14/2010 11:35 AM CDT) Pathologist [facility] TSH 2.771 0.55 - 4.78 uIU/ml [facility] BLOOD SPECIMEN / Unknown 09/14/2010 11:35 AM CDT 09/14/2010 11:58 AM CDT Roberto Serrano MD LAB - CHEMISTRY KENDELL YOU Performing Organization Address [facility] Co de Phone Number [facility] [address] [place] [address] * GLUCOSE PROTEIN KETONE URINE - POINT OF CAR (09/14/2010 9:23 AM CDT) [facility] Glucose UA neg Negative [facility] Protein UA neg Negative [facility] Ketone UA neg Negative [facility] QC Verified yes Yes [facility] POC T TESTING Urine specimen (specimen) URINE / Unknown 09/14/2010 9:23 AM CDT Reba Harden MD LAB - POINT OF CARE ORDERABLES Performing Organization Address City/[facility] Co de Phone Number [facility] [place] [address] documented in this encounter Visit Diagnoses Diagnosis Status post umbilical hernia repair, follow-up exam Follow-up examination, following other surgery Tobacco use complicating or childbirth Tobacco use disorder complicating , childbirth, or the puerperium, unspecified as to episode of care or not applicable Screening Screening for unspecified condition HTN (hypertension) Unspecified essential hypertension History of delivery, currently (HCC) with history of pre-term labor S/P cone biopsy of cervix Other postprocedural status Hypothyroid Unspecified hypothyroidism Marijuana abuse Cannabis abuse, unspecified Anxiety Anxiety state, unspecified GBS (group B streptococcus) UTI complicating (HCC) Infections of genitourinary tract in , unspecified as to episode of care h/o Severe pre-eclampsia, antepartum Severe pre-eclampsia, antepartum Supervision of high-risk Unspecified high-risk documented in this encounter Care Teams Business Consult Relationship Specialty Start Date End Date Clinic, [facility] [address] [place] [address] PCP - General 07/06/10 11/21/20 documented as of this encounter
--- OUTSIDE RECORDS SUMMARY | 2024-04-26 21:20 | XMS_ITS | Encounter Summary ---
Author Organization [facility] Address [address] [address] Care Team Providers Care Proteomics Scientist Name Role Phone Clinic, [facility] Primary Care Provider [phone] Encounter Details Date Type Department Care Team (Latest Contact Info) Description 11/08/2010 9:30 AM CDT - 11/08/2010 11:57 AM T Hospital Encounter [facility] EVAL/TRTMNT [address] [place], [place] [id number] Discharge Disposition: Home or Self Care Social [...] Procedure Name Priority Date/Time Associated Diagnosis Comments SONOGRAM - COMPLETE Routine 11/08/2010 10:25 AM CDT Supervision of high-risk Tobacco use complicating or childbirth documented in this encounter Results * SONOGRAM - COMPLETE (11/08/2010 10:25 AM CDT) Anatomical Region Laterality Modality Other 11/08/2010 10:2 5 AM CDT Narrative 11/08/2010 3:05 PM CDT ? [facility] ? Evaluation and Treatment Unit ?PHONE: ??FAX: Pat. Name: ?SAHRA MARTINEZ Pat. No: ?[id number] Study Date: ?? 11/08/2010 ??10:25am , Age: ? 1980, 30 Pregnancies: ?? 5, Para 0222 LMP: ?Unknown GA by 1st: ?28w5d GA by US: ? 29w3d GA Selected: ??28w5d (From Known E) DEVIN: ?01/26/2011 Referring MD: KIERA Pyrotechnic Assembler: ??Jasmina Parsons RDMS Hist/Ind: ? Hypothyroidism/ H/O PTD x 2 ?PreE w/last preg/ H/O Cone Biopsy MEASUREMENTS & AGE ? GROWTH EVALUATION Measurement ??GA ? Range ? Srce %for GA Ratios ----- ---- ------- BPD ??7.1 cm 28w4d (85x7b-11h3t) Hadl BPD 46% FL/BPD 0.83 (0.71 - 0.87) HC ??26.4 cm 28w5d (45q9z-08s0x) Hadl HC ??51% FL/AC ??0.25 (0.20 - 0.24* AC ??23.9 cm 28w1d (18d6k-39n4u) Hadl AC ??40% HC/AC ??1.11 (0.99 - 1.18) FL ?? 5.9 cm 30w5d (02z7k-83p6j) Hadl FL ??80% CI ? 0.74 (0.70 - 0.86) HL ?? 5.3 cm 31w1d (50y9v-64d1v) Edmund HL ??89% GA for sonogram 29w3d (98l6x-65t4p) ?? Weight Estimate: based on (HL,BPD,HC,AC,FL) Avg ? Weight: 1341 gm (7498-7033) Hadlo ? : 2lbs, 15oz ? Normal: 1264 gm (856-1824) Brenne ? Wt% ? 55% for 28.7 wks Cervical Length: ??3.7 cm Heart Rate: 140 bpm Amniotic Fluid Index: 14.2cm (09.3-23.0) CLINICAL SUMMARY Study Number: ??3 A lee fetus is identified in cephalic [...] is seen with fundal pressure. ?? IMPRESSION: ?1) Lee IUP at 28w5d. ?? 2) Normal amniotic fluid volume. ?? 3) Appropriate growth. 4) Placenta location: Lt Lateral. ?? 5) No malformations seen at this time within the limits of ultrasound. ?? 6) Reassuring cervical length. ?? RECOMMEND: ??Follow up ultrasound as clinically indicated. ?? Thank you for allowing us the opportunity to care for your patient. ?? Eyad Miller MD <Electronic Signature> ??11/08/2010 03:04pm Raf NGUYỄN ORDERABLES documented in this encounter Visit Diagnoses Diagnosis Supervision of high-risk Unspecified high-risk Tobacco use complicating or childbirth Tobacco use disorder complicating , childbirth, or the puerperium, unspecified as to episode of care or not applicable documented in this encounter Care Teams Proteomics Scientist Relationship Specialty Start Date End Date Clinic, [facility] [address] [place] [address] PCP - General 07/06/10 11/21/20 documented as of this encounter
--- OUTSIDE RECORDS SUMMARY | 2024-04-26 21:20 | XMS_ITS | Encounter Summary ---
Author Organization [facility] Address [address] [place] [address] Care Team Providers Care Suction Dredge Dumping Supervisor Name Role Phone Clinic, [facility] Ob/Med Primary Care Provider [phone] Reason for Visit * Reason Onset Date Comments Patient Requested Call 11/14/2010 Encounter Details Date Type Department Care Team (Late st Contact Info) Description 11/14/2010 Telephone [facility] MATERNAL/ EVALUATION UNIT [address] [place] [address] Brissa Soliz, RN Patient Requested Call Social History Tobacco Use Types Packs/Day Years [...] encounter Miscellaneous Notes * Telephone Encounter - Brissa Soliz RN - 11/14/2010 2:37 PM CDT Returned pt's call. She states she has been having contractions about 5-6 times/hour. States they stop when she lies down and drinks lots of water. States she drinks about a gallon of water/day. Denies vaginal bleeding or fever. Pt is unsure about whether she is leaking fluid. Instructed to come tohospital for evaluation if she has 3 or more contractions/hour, is leaking fluid or has vaginal bleeding or fever. Pt verbalized understanding but states she does not have family support in town and her has started a new job. She is home with an 8-yr-old and a 1-yr-old. Pt states she is notcurrently mahin. Given main hospital phone number and L&D phone number for assistance after clinic hours. documented in this encounter Plan of Treatment Not on file documented as of this encounter Visit Diagnoses Not on filedocumented in this encounter Care Teams Suction Dredge Dumping Supervisor Relationship Specialty Start Date End Date Clinic, [facility] Ob/Med [address] [place] [address] PCP - General 07/06/10 11/21/20 documented as of this encounter
--- OUTSIDE RECORDS SUMMARY | 2024-04-26 21:20 | XMS_ITS | Encounter Summary ---
Author Organization [facility] Address [address] [place] [address] Care Team Providers Care Family Health Nurse Practitioner Name Role Phone Clinic, [facility] Ob/Med Primary Care Provider [phone] Encounter Details Date Type Department Care Team (Latest Contact Info) Description 12/28/2010 10:30 AM CDT - 12/28/2010 11:59 PM CDT Hospital Encounter [facility] MATERNAL/ EVALUATION UNIT [address] [facility] [facility] [address] [place] [address] Discharge Disposition: Home or Self Care Social [...] Sign Reading Time Taken Comments Blood Pressure 119/81 12/28/2010 12:00 PM CDT Pulse - - Temperature - - Respiratory Rate - - Oxygen Saturation - - Inhaled Oxygen Concentration - - Weight 71.7 kg (158 lb) 12/28/2010 12:00 PM CDT Height - - Body [...] as of this encounter Progress Notes * Brenda Saba MD - 12/28/2010 1:12 PM CDT [facility] High Risk Return OB Note S:Patient here for f/u OB. Complains of daily contractions, not sure how often but not several times per hour. No LOF or VB. Some back pain as well. Patient has occasional GREEN treated with Tylenol. O: Vitals: 12/28/10 1200 BP: 119/81 Weight: 158 lb (71.668 kg) See flowsheet for details. FH: 34 FHT 140 Cervix 2/50/high (unchanged from prior exam). Component Name 12/28/10 1214 PROTEINUA tr GLUCOSEUA neg KETONEUA neg A/P: Patient is a 30 y.o. at 33w6d Patient Active Problem List Diagnoses Date Noted ??? Seizure disorder 09/14/2010 No medications No recent seizures ??? Carpal tunnel syndrome on left 09/14/2010 Transient, intermittent and more with activity. Consider braces if worsens No complaints today. ??? SAB (spontaneous ) 07/06/2010 H/o 2 sabs (one ?triploidy with Dr. Alejandro, D&C done at [facility]; the other due to low hormone [...] repair 07/06/[address] Flynn at [facility] ??? Tobacco use complicating or childbirth [...] GBS (group B streptococcus) UTI complicating 06/22/2010 Will need PCN in labor, d/w patient today. Reviewed kick counts (BID), as well as PTL and preeclampsia warnings. Return to clinic in one week. Discussed with Dr. Wandy Guillory NP 12/28/2010 1:12 PM M fellow note: I have interviewed and examined the patient, and discussed the assessment and plan of care with Maryana. I agree with the findings and plan of care as outlined in the SALES PROMOTION COORDINATOR's notes. My findings include: Presents for follow up care. S) Non specific complaints. Denies contractions, VB, GOF. Good FM. O)BP 119/81 Wt 158 lb (71.668 kg) HEENT: no pallor/thryromegaly CHEST: CTAB S1S2 wnl RRR No M/R/G ABD: gravid, soft NTP EXT: NTP NEURO: 2+ b/l reflexes FHT 140's Patient Active Problem List Diagnoses ??? Supervision of high-risk ??? Questionable Lupus (systemic lupus erythematosus)- neg DSDNA/SSA/SSB ??? h/o Severe pre-eclampsia, antepartum- 24 hour urine protein- 153mg/sp ??? History of delivery, currently ??? S/p cone biopsy of cervix ??? HYPOTHYROID:Initially hyper- thyroid 2004 then hypothyroid. Levothyroxine 0.125 mcg daily. Normal TSH/T4 on 11/30/10 ??? Marijuana abuse ??? Anxiety/Neurosis: Occasional racing thoughts. Able to function with daily activities. Limited social support. ??? GBS (group B streptococcus) UTI complicating ??? SAB (spontaneous ) ??? ASTHMA ??? Status post umbilical hernia repair ??? Tobacco use complicating or childbirth. 1/3 PPD. Desires to quit. Rash with the patch. ??? Sequential screen Patient ??? Seizure disorder Last generalized seizure episode in 2006 ??? Carpal tunnel syndrome on left ?? Prior child with deafness A) 33w 6d 29 Hypothyroidism stable. P) RTC in 1weeks. NST today. kick counts discussed. labor precautions given. Discussed signs of pre eclampsia. Check TSH on next visit. UDS prn. Brenda Saba MD 12/28/2010 1:24 PM documented in this encounter Plan of Treatment Not on file documented as of this encounter Procedures Procedure Name Priority Date/Time Associated Diagnosis Comments GLUCOSE PROTEIN KETONE URINE - POINT OF CAR Routine 12/28/2010 12:14 PM CDT documented in this encounter Results * GLUCOSE PROTEIN KETONE URINE - POINT OF CAR (12/28/2010 12:14 PM CDT) Glucose UA neg Negative [facility] POCT TEST[facility] Protein UA tr Negative [facility] POCT TEST[facility] Ketone UA neg Negative [facility] POCT TEST[facility] QC Verified yes Yes [facility] POC T TESTING Urine specimen (specimen) URINE / Unknown 12/28/2010 12:14 PM CDT Francheska Bishop MD LAB - POINT OF CARE ORDERABLES [facility] [place] [place] [address] documented in this encounter Visit Diagnoses Diagnosis [...] of care HTN (hypertension) Unspecified essential hypertension documented in this encounter Care Teams Family Health Nurse Practitioner Relationship Specialty Start Date End Date Clinic, [facility] Ob/Med [address] [place] [address] PCP - General 07/06/10 11/21/20 documented as of this encounter
--- OUTSIDE RECORDS SUMMARY | 2024-04-26 21:20 | XMS_ITS | Encounter Summary ---
Author Organization [facility] Address [address] [facility] [place] [address] Care Team Providers Care Tactical Air Defense Controller Name Role Phone Clinic, [facility] Ob/Med Primary Care Provider [phone] Encounter Details Date Type Department Care Team (Latest Contact Info) Description 07/06/2010 9:58 AM CDT - 07/06/2010 11:59 PM T Hospital Encounter [facility] MATERNAL/ EVALUATION UNIT [address] [place] [address] Jefferson Monroe MD [address] [place] [address] Clinic Discharge Disposition: Home or Self Care [...] tablet Take 1 Tab by mouth daily. famotidine (PEPCID) 20 MG tablet Take 1 Tab by mouth daily. 30 Tab 5 07/06/2010 08/03/2010 polyethylene glycol 3350 (MIRALAX) packet Take 17 g by mouth daily. 30 Packet 3 07/06/2010 08/03/2010 progesterone micronized (PROMETRIUM) 100 MG capsule Take 200 mg by mouth 2 times daily. 07/10/2010 08/03/2010 documented as of this encounter Progress Notes * Shanna Marcelino LSW - 07/12/2010 10:31 AM CDT Again attempted to reach pt but ph is still disconnected. * Monisha Hawkins - 07/07/2010 8:23 AM CDT I have received medical records from [facility]. I have labeled them and placed them in the folder for the physicians to review. documented in this encounter Plan of Treatment Not on file documented as of this encounter Visit Diagnoses Not on filedocumented in this encounter Care Teams Tactical Air Defense Controller Relationship Specialty Start Date End Date Clinic, [facility] Ob/Med [address] [place] [address] PCP - General 07/06/10 11/21/20 documented as of this encounter
--- OUTSIDE RECORDS SUMMARY | 2024-04-26 21:20 | XMS_ITS | Encounter Summary ---
Author Organization [facility] Address [address] [place] [address] Care Team Providers Care Buttermilk Drier Operator Name Role Phone Clinic, [facility] Ob/Med Primary Care Provider [phone] Encounter Details Date Type Department Care Team (Late st Contact Info) Description 07/06/2010 9:58 AM CDT - 07/06/2010 9:59 AM CDT Hospital Encounter [facility] MATERNAL/ EVALUATION UNIT [address] [place] [address] Jefefrson Monroe MD [address] [place] [address] Clinic Social History Tobacco Use Types Packs/Day Years [...] 07/10/2010 08/03/2010 documented as of this encounter Plan of Treatment Not on file documented as of this encounter Visit Diagnoses Not on filedocumented in this encounter Care Teams Buttermilk Drier Operator Relationship Specialty Start Date End Date Clinic, [facility] Ob/Med [address] [place] [address] PCP - General 07/06/10 11/21/20 documented as of this encounter
--- OUTSIDE RECORDS SUMMARY | 2024-04-26 21:20 | XMS_ITS | Encounter Summary ---
Author Organization [facility] Address [address] [facility] [place] [address] Care Team Providers Care Layup Worker Name Role Phone Clinic, [facility] Ob/Med Primary Care Provider [phone] Encounter Details Date Type Department Care Team (Latest Contact Info) Description 01/11/2011 10:21 AM CDT - 01/11/2011 11:59 PM CDT Hospital Encounter [facility] MATERNAL/ EVALUATION UNIT [address] [facility] [place] [address] Discharge Disposition: Home or Self Care Social [...] Sign Reading Time Taken Comments Blood Pressure 123/76 01/11/2011 11:00 AM CDT Pulse - - Temperature - - Respiratory Rate - - Oxygen Saturation - - Inhaled Oxygen Concentration - - Weight 73.9 kg (163 lb) 01/11/2011 11:00 AM CDT Height - - Body [...] as of this encounter Progress Notes * Jefferson Monroe MD - 01/11/2011 12:28 PM CDT [facility] Return Visit Subjective Sahra Parks is a 30 y.o. at 36w6d c/b: Patient states she is tired of being . Had amniocentesis today for FLM since patient has very little support in [facility] to help watch her other kids. Plan is for IOL Saturday01/12/11 at 2100 if mature. She will call today to get results (still pending currently). Has been having irregular contractions. Feels increased pressure in the vagina. Normal FM. Denies VB or LOF. Continues to have daily headaches for which she takes Tylenol. Objective Vitals: 01/11/11 1100 BP: 123/76 Weight: 163 lb (73.936 kg) FHT - 140 Physical Exam: Extremities: no edema Abdomen: gravid, FH-36 Cervix: 3/50/-3 Protein negative Ketones negative Glucose negative Assessment Patient Active Problem List Diagnoses Date Noted ??? Seizure disorder 09/14/2010 Questionable history; reports that these occurred when she was on antidepressants and OCPs Did see Neurologist; thought that perhaps from hormones or migraines?? No medications; last seizure 2.5 years ago ??? Carpal tunnel syndrome on left 09/14/2010 Transient, intermittent and more with activity. Has braces. ??? SAB (spontaneous ) 07/06/2010 H/o 2 sabs (one ?triploidy with Dr. Alejandro D&C done at [facility]; the other due to low hormone so [...] repair 07/06/[address] Flynn at [place] ??? Tobacco use complicating or childbirth 07/06/2010 [...] 1.90 3.01 2.57 Continue synthroid 125mg daily. Repeat levels 01/11/11 ??? Marijuana abuse 06/22/2010 UDS positive for MJ on 07/06/10 ??? Anxiety 06/22/2010 And neurosis; patient denies current symptoms. No medications ??? GBS (group B streptococcus) UTI complicating 06/22/2010 Plan Sahra Parks is a 30 y.o. at 37w6d c/b: 1. Hypothyroid 1. Taking Levo 0.125 mcg 2. TFTs stable at last check, TSH 1.9, free T4 1.22 on 11/30; repeat today 3. Increased constipation, otherwise asymptomatic. 2. Questionable history of lupus. Receiving testing. No laborotory confirmation to affirmdiagnosis. 3. Hx of PreE - No symptoms today of PreE. BP wnl 1. 24 hour urine protein was 154 on 11/30. 4. Hx of PTD 1. 36 wk delivery, declined 17-OHP this 5. Tob - encouraged cessation 1. Patch gives her rash and gum makes her nautious 6. Seziure d/o - reports that this is hormone related ??, stable, none for 3 years 7. Carpel tunnel syndrome: splint ordered 8. GBS urine culture this . Negative NATI. Needs PCN for delivery. 9. Poor social situation. For logistical reasons, patient had amnio this morning. If mature (still pending currently) patient will come for IOL on Friday 01/12 at 9:00pm. Patient instructed to call 2 hours before induction appointment to make sure room available. Patient states understanding. 10. RTC in 1 week if not delivered Will D/w Dr. Fer Bishop MD 01/11/2011 12:31 PM MFM I have reviewed Sahra Parks with Dr. Bishop. I agree with the above assessment, findings, and plans. I have the following additions: no additions Jefferson Monroe MD documented in this encounter Plan of Treatment Not on file documented as of this encounter Procedures Procedure Name Priority Date/Time Associated Diagnosis Comments TSH Today 01/11/2011 12:30 PM CDT T4 FREE Today 01/11/2011 12:30 PM CDT GLUCOSE PROTEIN KETONE URINE - POINT OF CAR Routine 01/11/2011 10:59 AM CDT documented in this encounter Results * T4 FREE (01/11/2011 12:30 PM CDT) T4 Free 1.11 0.65 - 1.34 ng/dl [facility]OR[facility] BLOOD SPECIMEN / Unknown 01/11/2011 12:30 PM CDT 01/11/2011 12:44 PM CDT Francheska Bishop MD LAB - CHEMISTRY KENDELL YOU Performing Organization Address City/[facility] Co de Phone Number [facility] [address] [place] [address] * TSH (01/11/2011 12:30 PM CDT) TSH 1.59 0.358 - 3.74 uIU/ml [facility] LABORATORY BLOOD SPECIMEN / Unknown 01/11/2011 12:30 PM CDT 01/11/2011 12:44 PM CDT Francheska Bishop MD LAB - CHEMISTRY KENDELL YOU Performing Organization Address [facility] Co de Phone Number [facility] [address] [place] [address] * GLUCOSE PROTEIN KETONE URINE - POINT OF CAR (01/11/2011 10:59 AM CDT) Glucose UA neg Negative [facility] POCT TEST[facility] Protein UA neg Negative [facility] POCT TEST[facility] Ketone UA neg Negative [facility] POCT TESTING QC Verified yes Yes [facility] POC T TESTING Urine specimen (specimen) URINE / Unknown 01/11/2011 10:59 AM CDT Elaina Marquez MD LAB - POINT OF CARE ORDERABLES Performing Organization Address [facility] Co de Phone Number [place] [address] documented in this encounter Visit Diagnoses Diagnosis [...] hypertension documented in this encounter Care Teams Layup Worker Relationship Specialty Start Date End Date Clinic, [facility] Ob/Med [address] [place] [address] PCP - General 07/06/10 11/21/20 documented as of this encounter
--- OUTSIDE RECORDS SUMMARY | 2024-04-26 21:20 | XMS_ITS | Encounter Summary ---
Author Organization [facility] Address [address] [place] [address] Care Team Providers Care Sdc Teacher Name Role Phone Clinic, [facility] Primary Care Provider [phone] Reason for Visit * Reason Comments Induction Encounter Details Date Type Department Care Team (Latest Contact Info) Description 01/12/2011 9:16 PM CDT - 01/16/2011 1:49 PM CDT Hospital Encounter [facility] MOTHER[facility]BABY [address] [place] [address] Yunier Schreiber MD [address] [facility] [address] [place] [address] [address] Mobley MD [address] [place] [address] High Risk Discharge Disposition: Home or Self Care Social History Tobacco Use Types Packs/Day Years Used Date Smoking Tobacco: Every Day Cigarettes Tobacco Cessation:Ready to Q uit: Yes; Counseling Given: Yes Alcohol Use Standard Drinks/Week Comments No 0 (1 standard drink = 0.6 oz pur e alcohol) Sex and Gender Information Value Date Recorded Sex Assigned at Not on file Gender Identity Not on file Sexual Orientation Not on file documented as of this encounter Last Filed Vital Signs Vital Sign Reading Time Taken Comments Blood Pressure 111/76 01/16/2011 7:45 AM CDT Pulse 78 01/16/2011 7:45 AM CDT Temperature 36.8 ??C (98.3 ??F) 01/16/2011 7:45 AM CD T Respiratory Rate 16 01/16/2011 7:45 AM CDT Oxygen Saturation - - Inhaled Oxygen Concentration 21% 01/15/2011 1 2:06 AM CDT Weight 73 kg (161 lb) 01/12/2011 10:15 PM CDT Height 160 cm (5' 3 ) 01/12/2011 10:15 PM CDT Body Mass Index 28.52 01/12/2011 10:15 PM CDT documented in this encounter Discharge Summaries * Savita Sampson MD - 01/22/2011 4:37 PM CDT ad setter Discharge Summary 01/22/2011, 4:37 PM Date of Admission: 01/12/2011 Date of Discharge: 01/16/2011 Admission Diagnosis: 30 y.o. at 38 weeks 1 days gestation with seizure disorder, hypothyroidism, and SLE. Discharge Diagnosis: s/p Spontaneous Vaginal Delivery Service: Maternal Medicine Consults: none HPI: Sahra Parks is a 30 y.o. at 38 weeks 1 days was admitted with Estimated Date of Delivery:01/26/11. Her Care was with [facility]. She presented for induction of labor. was complicated by: Patient Active Problem List Diagnoses Date Noted [...] ?triploidy with Dr. Alejandro, D&C done at [facility]; the other due to low [...] repair 07/06/[address] Flynn at [facility] ??? Tobacco use complicating or childbirth [...] 3.7 cm ??? HYPOTHYROID 06/22/2010 Component Name 01/11/11 1230 11/30/10 1030 11/08/10 1345 T4FREE 1.11 1.22 1.15 Component Name 01/11/11 1230 11/30/10 1030 11/08/10 1345 TSH 1.59 1.90 3.01 Continue synthroid 125mcg daily ??? Marijuana abuse 06/22/2010 UDS positive for MJ on 07/06/10 ??? Anxiety 06/22/2010 And neurosis; patient denies current symptoms. No medications ??? GBS (group B streptococcus) UTI complicating 06/22/2010 Hospital Course: Pt was induced with cytotec and pitocin following mature amnio. Delivery: For full details of delivery, please refer to operative note or delivery summary. Delivery Type: Spontaneous Vaginal Delivery Estimated Blood Loss: 250 Anesthesia/Analgesia: Information for the patient's : Charly, Baby Girl Sahra [[id number]] Date of 01/14/2011 Time of : 12:13 AM Sex: Female Weight: 2995 g (6 lb 9.6 oz) (1 min): 9 (5 min): 9 (10 min): Course: Her course was uncomplicated. Patient is breast and bottle feeding. FOB is getting vasectomy for contraception. Results: Component Name 01/12/11 2335 ABORH A Pos Component Name 01/15/11 1000 01/14/11 0521 01/12/11 2320 WBC 12.4* 13.2* 11.7* HGB 11.6* 10.7* 11.1* HCT 35.0* 31.7* 32.6* PLTCOUNT 179 164 202 Discharge Vitals: BP 111/76 Pulse 78 Temp 98.3 ??F Resp 16 Wt 161 lb (73.029 kg) BMI 28.52 kg/m2 Discharge Diagnosis: Term vaginal delivery. Dispostion: Home on day # 2. Followup: with [facility] Continue these medications at home: Discharge Medication List as of 01/16/2011 9:59 AM START taking these medications Details ibuprofen (MOTRIN) 600 MG tablet 600 mg, Oral, EVERY 4 HOURS PRN Starting 01/16/2011, Until Discontinued, Pain, Disp-120, R-1, Print, Take 1 Tab by mouth every 4 hours as needed for Pain. oxycodone-acetaminophen (PERCOCET) 5-325 MG tablet 1-2 Tab, Oral, EVERY 4 HOURS PRN Starting 01/16/2011, Until Discontinued, Pain, Disp-28 Tab, R-0, Print, Take 1-2 Tabs by mouth every 4 hours as needed for Pain. CONTINUE these medications which have NOT CHANGED Details acetaminophen (TYLENOL) 500 MG tablet 1,000 mg, Oral, EVERY 6 HOURS PRN Starting 08/03/2010, Until Discontinued, Historical Medication, Take 1,000 mg by mouth every 6 hours as needed. Maximum allowable Acetaminophen amount = 4 Grams / 24 hours. levothyroxine (SYNTHROID) 125 MCG tablet 125 mcg, Oral, DAILY BEFORE BREAKFAST, Until Discontinued,Historical Medication, Take 125 mcg by mouth daily before breakfast. Dose increased 06/19/10 per pharmacy refill records Vit-Fe Fumarate-FA ( VITAMIN) 28-0.8 MG tablet 1 Tab, Oral, DAILY, Until Discontinued, Historical Medication, Take 1 Tab by mouth daily. polyethylene glycol 3350 (GLYCOLAX) powder 17 g, Oral, DAILY PRN Starting 01/04/2011, Until Discontinued, Constipation, Disp-119 g, R-3, Print, Take 17 g by mouth once daily as needed for Constipation. docusate sodium (COLACE) 100 MG capsule 100 mg, Oral, 2 TIMES DAILY PRN Starting 09/14/2010, Until Discontinued, Constipation, Disp-60 Cap, R-5, Print, Take 1 Cap by mouth 2 times daily as needed for Constipation. calcium carbonate (TUMS) 500 MG chew tablet 1 Tab, Oral, PRN Starting 08/03/2010, Until Discontinued, Historical Medication, Take 1 Tab by mouth as needed. Indications: Heartburn ondansetron (ZOFRAN) 4 MG tablet 4 mg, Oral, EVERY 8 HOURS PRN Starting 07/10/2010, Until Discontinued, Historical Medication, Take 4 mg by mouth every 8 hours as needed. Discharge Instructions: Discharge Procedure Orders REGULAR DIET AT HOME FOLLOW UP Follow up with physician in 4-6 weeks. NOTHING PER VAGINA until follow up appointment DISCHARGE ACTIVITY RESTRICTIONS Lock Tender Chief Operator activity. Order Specific Question Answer Comments For how long? Two weeks DRIVING RESTRICTIONS No driving until follow up appointment. NO HEAVY LIFTING until follow up appointment. CALL PHYSICIAN Call Physician for fever of 101.0 or higher, increased vaginal bleeding, increased pain, or wound drainage. Savita Sampson MD 01/22/2011 4:38 PM documented in this encounter Discharge Instructions * Discharge Instructions* Genesis Iraheta RN - 01/16/2011 9:59 AM CDT DELIVERED MOTHER DISCHARGE INSTRUCTIONS for: Sahra Parks Refer to Care for Mother Booklet for more information. Please contact your multi punch operator for the following (page 4): 1. Any burning or itching when urinating. 2. Any significant increase or change in color or odor of vaginal discharge. 3. Any increased vaginal bleeding that may contain clots. 4. Temperature greater than 100.4 degrees. 5. Any significant increase in pain, tenderness, or redness in perineum 6. Any pus draining from perineum. Discharge Instructions Sahra Parks General instructions for the first two weeks at home - Breastfeed every 2-3 hours, at least 8 times in 24 hours. - Feed on one breast completely, then offer second breast. Burping and diapering will often awaken baby for feeding. - Massage breasts before and during feeding to help the milk to flow. - should have 6 or more wet diapers and several yellow bowel movements each day by end of the first week. - Drink enough fluids throughout the day to avoid becoming thirsty, one glass every time you breastfeed or pump (8-10 per day). - Rest when the baby rests. - For tender nipples, use expressed milk or lanolin after feeding, review proper positioning for good latch. - Eat nutritious snacks between meals to add the extra calories needed for . - Continue taking your pre- vitamins. Call your baby registry sales consultant and your doctor if: * Your baby will not wake up to eat after 5 hours (after trying wake up techniques). * Your baby has less than 6 wet diapers and 2 bowel movements in 24 hours by the end of the first week. * Your baby will not stay latched on and is not swallowing and feeding for at least 10-15 minutes, for 2 feedings in a row. * You have pain or problems with your nipples or breasts. * You are worried about your baby or have questions about feedings. * Your baby is a and his skin becomes yellow or jaundice extending below the waist. Proper positioning for good latch - Baby is tummy to tummy, facing breast. - Mouth wide open, like a yawn, pull baby to the breast. - Tongue down. - 1 to 1.5 inch of nipple and areola in mouth. - Support neck and head of , use a pillow under your arm if necessary. Proper Sucking - Lips are wide and curled outward from breast. - No smacking, clicking, dimpling of the cheeks. - You can hear and see the infant swallowing, drinking the milk. - By the end of the first week your breasts feel full before feeding and softer after feeding. Hungry baby cues Wake up techniques - Stretching - Undress baby - Hand to mouth - Hold [id number] - Eye blinking - Rub baby's hands, feet, legs - Making sucking noises - Massage baby's cheeks, lips and mouth - Rooting - Wipe baby's face with wet wash cloth - Change diaper Discharge Procedure Orders REGULAR DIET AT HOME FOLLOW UP Follow up with physician in 4-6 weeks. NOTHING PER VAGINA until follow up appointment DISCHARGE ACTIVITY RESTRICTIONS Lock Tender Chief Operator activity. Order Specific Question Answer Comments For how long? Two weeks DRIVING RESTRICTIONS No driving until follow up appointment. NO HEAVY LIFTING until follow up appointment. CALL PHYSICIAN Call Physician for fever of 101.0 or higher, increased vaginal bleeding, increased pain, or wound drainage. Do not smoke. Avoid second hand smoke. The following belonging have been returned to you: Clothing Clothing: Yes With Patient: Shirt;Pants;Jacket/Coat;Footwear;Undergarments Jewelry Jewelry: Yes With Patient: Earring Electronics Electronic Items: Yes With Patient: Camera;Cell Phone;Cell Phone Alarm Mechanism Adjuster Dentures Dentures/Retainers: None Vision Visual Aids: None Hearing Aids Hearing Aids: None Equipment/Assistive Devices Equipment with Patient: None Equipment At Home: None Home Medications Home Medications: None Miscellaneous Belongings Miscellaneous Items: Yes With Patient: Pillow These instruction have been reveiwed with me and my questions have been answered. Patient/Guardian Signature: Date 7. Any pus or blood draining from nipples. Discharge Procedure Orders REGULAR DIET AT HOME FOLLOW UP Follow up with physician in 4-6 weeks. NOTHING PER VAGINA until follow up appointment DISCHARGE ACTIVITY RESTRICTIONS Lock Tender Chief Operator activity. Order Specific Question Answer Comments For how long? Two weeks DRIVING RESTRICTIONS No driving until follow up appointment. NO HEAVY LIFTING until follow up appointment. CALL PHYSICIAN Call Physician for fever of 101.0 or higher, increased vaginal bleeding, increased pain, or wound drainage. Do not smoke. Avoid second hand smoke. Remember to collect all your belongings kept at the bedside, for example: your cell phone and cell phone health and fitness instructor. The following belongings have been returned to you: Clothing Clothing: Yes With Patient: Shirt;Pants;Jacket/Coat;Footwear;Undergarments Jewelry Jewelry: Yes With Patient: Earring Electronics Electronic Items: Yes With Patient: Camera;Cell Phone;Cell Phone Alarm Mechanism Adjuster Dentures Dentures/Retainers: None Vision Visual Aids: None Hearing Aids Hearing Aids: None Equipment/Assistive Devices Equipment with Patient: None Equipment At Home: None Home Medications Home Medications: None Miscellaneous Belongings Miscellaneous Items: Yes With Patient: Gildardo PLEASE REMEMBER: 1) Always place your on his/her back to sleep. 2) Always use a car seat when transporting your child. I have received and understand my self care instructions. If I have any problems or questions, I will call my physician. Patient Signature: Nurse's Signature: 01/16/2011 * Discharge Instructions* Document, Scanned - 01/18/2011 5:55 PM CDT documented in this encounter Medications [...] 01/16/2011 11/22/2020 documented as of this encounter Progress Notes * Genesis Iraheta RN - 01/16/2011 2:01 PM CDT ALL DISCHARGE INSTRUCTIONS GIVEN.cLIENT VERBALIZES UNDERSTANDING;AGREES TO COMPLY. * Elo Cotton RN - 01/16/2011 1:36 PM CDT 01/16/11 Spoke w/Malik in Dr. Morris's office with an update on Ms. Parks who had been referred to our HR clinic secondary to Lupus in June of 2010. Ms. Parks delivered on 01/14/11. Baby Girl Charlyweighed 2995 gms and had 's of 9/9. Ms. Parks will return to the care of Dr. Morris for herpostpartum care. * Michelle Garenr RN - 01/16/2011 1:33 PM CDT Problem: Emotional Well-Being Goal: Parent- bonding occurs As evidenced by: a) eye contact b) holding baby close c) frequently touching d) talking to e) If : i. mother expresses confidence in ability to breastfeed ii. mother demonstrates ability to breastfeed independently Outcome: Goal Met Date Met: 01/16/11 Consult: Mom was independently latching baby until she became engorged last night and wasunable to get baby on. Milk easily expressable from her breasts. Assisted her with latching baby, using a nipple shield. Baby latches easily with vigorous suckling and frequent swallows. Pointed how to identify swallows during a feeding. Baby able to maintain latch throughout the feed.Reviewed expected/necessary feeding frequency and duration, as well as expected/necessary urine and stool output from baby in the first week. She has phone number for office to call for questions or assistance as needed. * Yunier Schreiber MD - 01/16/2011 5:30 AM CDT R1 OB Post- Note 01/16/2011, 5:30 AM Subjective: No acute events overnight. Patient is doing well. Pain controlled. Lochia is medium amount. She reports flatus passed. She denies headache, fever, chest pain, shortness of breath, and leg pain. She has ambulated and denies lightheadedness. Cruz is absent, patient is voiding without difficulty. She is breast feeding. Objective: Temp (36hrs) Max:98.3 ??F Vitals: 01/15/11 0001 01/15/11 0750 01/15/11 1545 01/15/11 2345 BP: 148/72 119/83 120/78 116/85 Pulse: 58 71 70 62 Temp: 98.1 ??F 98.3 ??F 98.2 ??F 98.2 ??F Resp: 16 18 18 16 Weight: No intake or output data in the 24 hours ending 01/16/11 0530 No data found. PE: General: alert, cooperative in no acute distress Lungs: Clear to auscultation bilaterally Heart: regular rate and rhythm Abdomen:BS+/ Soft/ appropriately tender; fundus firm at umbilicus, Extremities: no calf tenderness Labs: Component Name 01/15/11 1000 01/14/11 0521 01/12/11 2320 WBC 12.4* 13.2* 11.7* HGB 11.6* 10.7* 11.1* HCT 35.0* 31.7* 32.6* PLTCOUNT 179 164 202 Assessment/Plan: 30 y.o.yo , s/p spontaneous vaginal, PPD# 2 1. AFVSS 2. Hypothyroidism 1. Cont synthroid 3. : Voiding without difficulty 4. GI: bashir reg diet, positive flatus. 5. Br/Ganesh/Contraception: The patient is breast and bottle feeding and FOB is getting vasectomy for contraception. 1. Pt does not want to use any contraceptives with hormones as it exacerbates her seizure disorder . She has tried both depo provera and an IUD in the past, she did not tolerate either of them. 6. Hematologic- Asymptomatic anemia. 7. +/I/-/-. HIV NR 8. Baby girl doing well. 9. Anticipate discharge today Savita Sampson MD 01/16/2011 5:30 AM Patient seen and evaluated, agree with above findings. Discharge to home. Yunier Schreiber MD * Katie Velarde RN - 01/16/2011 5:05 AM CDT VSS. Up and ambulating. Breast milk in. Percocet and Motrin for c/o cramping. Anticipate discharge today. * Jefferson Monroe MD - 01/15/2011 5:27 AM CDT R1 OB Post- Note 01/15/2011, 5:27 AM Subjective: No acute events overnight. Patient is doing well. Pain controlled. Lochia is medium amount. She reports flatus passed. She denies headache, fever, chest pain, shortness of breath, and leg pain. She has ambulated and denies lightheadedness. Cruz is absent, patient is voiding without difficulty. She is breast feeding. Objective: Temp (36hrs) Max:98.7 ??F Vitals: 01/14/11 0820 01/14/11 1135 01/14/11 1435 01/15/11 0001 BP: 105/65 117/82 120/84 148/72 Pulse: 59 72 64 58 Temp: 98 ??F 98.1 ??F 97.4 ??F 98.1 ??F Resp: 20 20 18 16 Weight: No intake or output data in the 24 hours ending 01/15/11526 No data found. PE: General: alert, cooperative in no acute distress Lungs: Clear to auscultation bilaterally Heart: regular rate and rhythm Abdomen:BS+/ Soft/ appropriately tender; fundus firm at umbilicus, Extremities: no calf tenderness Labs: Component Name 01/14/11 0521 01/12/11 2320 11/30/10 1030 WBC 13.2* 11.7* 8.8 HGB 10.7* 11.1* 10.6* HCT 31.7* 32.6* 31.1* PLTCOUNT 164 202 179 Assessment/Plan: 30 y.o.yo , s/p spontaneous vaginal, PPD# 1 1. AFVSS 2. Hypothyroidism 1. Cont synthroid 3. : Voiding without difficulty 4. GI: bashir reg diet, positive flatus. 5. Br/Ganesh/Contraception: The patient is breast and bottle feeding and FOB is getting vasectomy for contraception. 6. Hematologic- Asymptomatic anemia. 7. +/I/-/-. HIV NR 8. Baby girl doing well. 9. Anticipate discharge PPD 2 Savita Sampson MD 01/15/2011 5:27 AM MFM Attending I have seen, evaluated and examined the patient with Drs. Boo and Emre and [facility] exams and plans. Exam: BP 119/83 Pulse 71 Temp 98.3 ??F Resp 18 Wt 161 lb (73.029 kg) BMI 28.52 kg/m2 Gen - NAD Abd - NT Ext - NT, no edema I have the following to add to the plan: no additions, doing well, CPM Jefferson Monroe MD [facility] * Yeni Joshi RN - 01/15/2011 4:45 AM CDT VSS. Breast and bottlefeeding. Does latch at times and pumps breastmilk, feeding breastmilk by bottle. Has wanted any meds for pain this shift. Small rubra hoff. FFu/1. Has slept mostof the night with infant in the nursery. * Elisa Sarah CRNA - 01/14/2011 3:20 PM CDT POST-OP ANESTHESIA EVALUATION Sahra Parks is a 30 y.o. female The patient is sufficiently recovered from the acute administration of the anesthesia so as to participate in the evaluation or neurologic status has returned to pre-operative or expected level of consciousness. The post-anesthesia assessment was completed based upon the elements below. The patient is stable and has adequately recovered from anesthesia unless otherwise noted. Post-op Evaluation: Temp: 97.4 ??F Pulse: 64 Resp: 18 BP: 120/84 mmHg Pain Rating Score #: 4 Resp function: Natural Airway Cardiac Function: Stable Mental Status : Awake/Alert Pain: Comfortable / acceptable Nausea / Vomiting: None Post Procedure Hydration: Adequate Other complications A post-op evaluation was performed on the patient with the following assessment: No Apparent Anesthesia Complications;Vital Signs and Mental Status unchanged from Preop Unless otherwise indicated, the patient is being discharged from anesthesia care. Elisa Sarah CRNA * Shanna Wang, YANET - 01/14/2011 5:59 AM CDT Patient arrived on the unit at 0300 as new admission. Vitals stable. No complaints of pain. Walked to BR within first 30 minutes of admission. Voiding. heplocked in R wrist. Last received percocet [id number] from L&D. Patient is breast/bottle feeding a female infant. Patient fed baby and request baby go to nursery. Patient has been sleeping since 0400. No issues at this time. * Phil Hobbs CRNA - 01/13/2011 9:35 PM CDT PRE-ANESTHESIA EVALUATION Evaluated By: Phil Hobbs CRNA, 01/13/2011 9:35 PM Sahra Parks is a 30 y.o. female Purpose: Scheduled Procedure Scheduled procedure: epidural Component Name 01/12/11 2320 11/30/10 1030 11/08/10 1345 WBC 11.7* 8.8 9.6 HGB 11.1* 10.6* 10.9* HCT 32.6* 31.1* 32.6* PLTCOUNT 202 179 219 Hospital Problem List Patient Active Problem List Diagnoses ??? Supervision of high-risk ??? Lupus (systemic lupus erythematosus) ??? h/o Severe pre-eclampsia, antepartum ??? History of delivery, currently ??? S/p cone biopsy of cervix ??? HYPOTHYROID ??? Marijuana abuse ??? Anxiety ??? GBS (group B streptococcus) UTI complicating ??? SAB (spontaneous ) ??? ASTHMA ??? Status post umbilical hernia repair ??? Tobacco use complicating or childbirth ??? Sequential screen Patient ??? Seizure disorder ??? Carpal tunnel syndrome on left Allergies Morphine; Latex; Magnesium salicylate; and Sulfa drugs Meds Prescriptions prior to admission Medication Sig Dispense Refill ??? acetaminophen (TYLENOL) 500 MG tablet Take 1,000 mg by mouth every 6 hours as needed. Maximum allowable Acetaminophen amount = 4 Grams / 24 hours. ??? levothyroxine (SYNTHROID) 125 MCG tablet Take 125 mcg by mouth daily before breakfast. Dose increased 06/19/10 per pharmacy refill records ??? Vit-Fe Fumarate-FA ( VITAMIN) 28-0.8 MG tablet Take 1 Tab by mouth daily. ??? polyethylene glycol 3350 (GLYCOLAX) powder Take 17 g by mouth once daily as needed for Constipation. 119 g 3 ??? docusate sodium (COLACE) 100 MG capsule Take 1 Cap by mouth 2 times daily as needed for Constipation. 60 Cap 5 ??? calcium carbonate (TUMS) 500 MG chew tablet Take 1 Tab by mouth as needed. Indications: Heartburn ??? ondansetron (ZOFRAN) 4 MG tablet Take 4 mg by mouth every 8 hours as needed. Current Facility-Administered Medications Medication Dose Route Frequency Provider Last Rate Last Dose ??? albuterol HFA (PROVENTIL;VENTOLIN;PROAIR) 108 (90 BASE) MCG/ACT inhaler 2 Puff 2 Puff Inhalation q6h PRN Edilma Chang MD ??? misoprostol (CYTOTEC) tablet 25 mcg 25 mcg Vaginal Once Katelin Andrade MD 25 mcg at 845 ??? misoprostol (CYTOTEC) tablet 25 mcg 25 mcg Oral Once Elaina Bradley MD 25 mcg at 01/13/11 1351 ??? oxytocin (PITOCIN) 30 units in 500 ml normal saline IV solution 1-20 lisa- units/min Intravenous Continuous Natali Chairez MD 6 mL/hr at 01/13/111935 6 lisa-units/min at 01/13/111935 ??? terbutaline (BRETHINE) injection 0.25 mg 0.25 mg Subcutaneous PRN Natali Chairez MD ??? nalbuphine (NUBAIN) injection 10 mg 10 mg Intravenous Once Natali Chairez MD 10 mg at 01/13/111815 ??? citric acid-sodium citrate (BICITRA) solution ADS Med 30 mL at 01/13/112103 ??? naloxone (NARCAN) injection 0.2 mg 0.2 mg Intravenous q5 min PRN Munir Gold MD ??? lactated ringers infusion Intravenous BOLUS IV Munir Gold MD ??? lactated ringers infusion Intravenous Continuous Munir Gold MD ??? citric acid-sodium citrate (BICITRA) solution 30 mL 30 mL Oral PRN Munir Gold MD ??? ropivacaine (NAROPIN) 2 MG/ML injection 2-14 mL/hr Epidural Continuous Munir Gold MD 200 mL at 01/13/112104 ??? metoclopramide (REGLAN) injection 10 mg 10 mg Intravenous q6h PRN Natali Chairez MD 10 mg at 01/13/112128 ??? influenza virus vacc (FLUARIX; FLUZONE) injection 0.5 mL 0.5 mL Intramuscular Immunization - Once Edilma Chang MD ??? lactated ringers infusion Intravenous Continuous Edilma Chang MD ??? penicillin G potassium IVPB 5 Million Units 5 Million Units Intravenous Once Edilma Chang MD 5Million Units at 01/12/112337 ??? penicillin G pot in dextrose IVPB 3 Million Units 3 Million Units Intravenous q4h Edilma Chang MD 3 Million Units at 01/13/112122 ??? misoprostol (CYTOTEC) tablet 25 mcg 25 mcg Oral Once Edilma Chang MD 25 mcg at 01/13/11 0428 ??? levothyroxine (SYNTHROID) tablet 125 mcg 125 mcg Oral QDAY BEFORE BREAKFAST Edilam Chang MD 125 mcg at 01/13/11 0848 ??? ondansetron (ZOFRAN) injection 4 mg 4 mg Intravenous q6h PRN Edilma Chang MD 4 mg at 01/13/11 1839 Past Medical History Past Medical History Diagnosis Date ??? LUPUS never confirmed on serology ??? Anxiety ??? HYPOTHYROID ??? History of conization of cervix 1997 ??? Benign hypertension no meds ??? HEADACHE ??? ASTHMA ??? ANEMIA ??? Cholesterol serum increased ??? Seizure disorder ??? Thyroid disease ??? Back problem ??? Heart disease ??? HYPERTENSION ??? Epigastric pain ??? UTI (urinary tract infection) Past Surgical History Past Surgical History Procedure Date ??? Cervical biopsy, cone 1997 ??? Hernia repair ??? Hernia repair 2007 Past Social History History Social History ??? Marital Status: Single Spouse Name: N/A Number of Children: N/A ??? Years of Education: N/A Occupational History ??? Not on file. Social History Main Topics ??? Smoking status: Current Everyday Smoker -- 0.2 packs/day ??? Smokeless tobacco: Not on file ??? Alcohol Use: No ??? Drug Use: No ??? Sexually Active: Yes Other Topics Concern ??? Not on file Social History Narrative ??? No narrative on file Last Vital SignsVITAL SIGNS Temp: 97.6 ??F Pulse: 112 Resp: 16 BP: 114/73 mmHg Weight: 161 lb Height: 5' 3 Pre-Eval ExamPrevious Review I reviewed previous documentation: Yes PHYSICAL EXAM NPO status: Since Midnight Heart Sounds: S1 S2 Respiratory Pattern/Effort: CTA Oriented x 3: Yes Teeth: Ok Airway Class: I ANESTHESIA ASA: III Anesthesia Choices: Epidural Post-Op: OB PRE-EVAL REVIEW I have reviewed all previously documented physician evaluations: Yes * Elaina Bradley MD - 01/13/2011 7:38 PM CDT R2 Labor Progress Note 01/13/2011, 7:38 PM Subjective: Pt reports she is feeling a lot of contractions but is tolerating them well. She asked about an epidural vs. pudendal block vs. Natural childbirth. Discussed and she seemed to be leaning towards pudendal block. Objective: Vitals: 01/13/11 1230 01/13/11 1254 01/13/11 1535 01/13/11 1730 BP: 100/70 114/73 Pulse: Temp: 97.9 ??F 97.6 ??F Resp: Weight: heart tones: baseline rate 120, reactive, reassuring, no decels Tocometer: q 2-3 min Cervical Exam Dilation (cm): 3.5 Effacement: 50 Station: -2 Assessment: 30 y.o. @ 38w1d IOL Mature amnio FLM 47.7; L/S 3.5 S/p cytotec 25mcg x4 Now on oxytocin per protocol 2. Hypothyroidism TFTs wnl this admission On Synthroid 0.125mcg 3. Poor OB hx Hx of PreE, PTD and SAB x 2 Normal BP and no sx of preE Pt was offered 17-OHP this , but declined Possible triploidy gestation of SAB; need records Child born at 36 wks with severe jaundice and subsequent deafness 4. Tobacco Currently smoking about 5 cigarettes per day Declined patch and desires cessation 5. Seizure d/o Last seizure was over 3 years ago No meds 6. Asthma Continue albuterol prn 7. Anxiety Currently on no meds Used Xanax in the past Monitor mood post 8. Hx of umbilical hernia repair with mesh 9. Hx of abnormal Pap and cone biopsy Normal paps since and normal this 10. +/I/-/-; HIV NR GCT 76 GBSuria; PCN for ppx 11. FWB reassuring Elaina Bradley MD 01/13/2011 7:38 PM * Elaina Bradley MD - 01/13/2011 2:04 PM CDT R2 Labor Progress Note 01/13/2011, 2:04 PM Subjective: Pt reports she is feeling more contractions. Objective: Vitals: 01/13/11 0615 01/13/11 0714 01/13/11 0758 01/13/11 1230 BP: 94/50 102/70 Pulse: Temp: 97.5 ??F 97.9 ??F Resp: Weight: heart tones: baseline rate 125-130, reactive, reassuring, no decels Tocometer: q 2-3 min Cervical Exam Dilation (cm): 3.0 Effacement: 50 Station: -3 Assessment: 30 y.o. @ 38w1d IOL Mature amnio FLM 47.7; L/S 3.5 S/p cytotec 25mcg #4 placed at approx 2 2. Hypothyroidism TFTs wnl this admission On Synthroid 0.125mcg 3. Poor OB hx Hx of PreE, PTD and SAB x 2 Normal BP and no sx of preE Pt was offered 17-OHP this , but declined Possible triploidy gestation of SAB; need records Child born at 36 wks with severe jaundice and subsequent deafness 4. Tobacco Currently smoking about 5 cigarettes per day Declined patch and desires cessation 5. Seizure d/o Last seizure was over 3 years ago No meds 6. Asthma Continue albuterol prn 7. Anxiety Currently on no meds Used Xanax in the past Monitor mood post 8. Hx of umbilical hernia repair with mesh 9. Hx of abnormal Pap and cone biopsy Normal paps since and normal this 10. +/I/-/-; HIV NR GCT 76 GBSuria; PCN for ppx 11. 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 Objective: Vitals: 01/13/11 0514 01/13/11 0615 01/13/11 0714 01/13/11 0758 BP: 108/74 94/50 102/70 Pulse: Temp: 97.5 ??F Resp: Weight: heart tones: baseline rate 120, reactive, reassuring Tocometer: q 1-4 min Cervical Exam Dilation (cm): 3 Effacement: 50 Station: -3 Assessment: 30 y.o. @ 38w1d IOL Mature amnio FLM 47.7; L/S 3.5 S/p cytotec 25mcg #3 placed now 2. Hypothyroidism TFTs drawn yesterday and are wnl On Synthroid 0.125mcg 3. Poor OB hx Hx of PreE, PTD and SAB x 2 Normal BP and no sx of preE Pt was offered 17-OHP this , but declined Possible triploidy gestation of SAB; need records Child born at 36 wks with severe jaundice and subsequent deafness 4. Tobacco Currently smoking about 5 cigarettes per day Declined patch and desires cessation 5. Seizure d/o Last seizure was over 3 years ago No meds 6. Asthma Continue albuterol prn 7. Anxiety Currently on no meds Used Xanax in the past Monitor mood post 8. Hx of umbilical hernia repair with mesh 9. Hx of abnormal Pap and cone biopsy Normal paps since and normal this 10. +/I/-/-; HIV NR GCT 76 GBSuria; PCN for ppx Edilma Chang MD 01/13/2011 9:00 AM * Katelin Andrade MD - 01/13/2011 4:23 AM CDT R2 OB Labor Progress Note 01/13/2011, 4:23 AM Subjective: Went to see patient for: Assessment of labor Objective: Vitals: 01/12/11 2215 01/12/11 2314 01/13/11 0016 01/13/11 0114 BP: 120/74 120/78 115/76 121/73 Pulse: 112 Temp: 97.8 ??F Resp: 16 Weight: 161 lb (73.029 kg) heart tones: non-stress test (lee): baseline rate 120, reactive, reassuring Tocometer: irregular Cervical Exam Dilation (cm): 2.5 Effacement: 50 Station: -3 Assessment: 30 y.o. @ 38w1d IOL Mature amnio FLM 47.7; L/S 3.5 S/p cytotec 25mcg x1. #2 placed now 2. Hypothyroidism TFTs drawn yesterday and are wnl On Synthroid 0.125mcg 3. Poor OB hx Hx of PreE, PTD and SAB x 2 Normal BP and no sx of preE Pt was offered 17-OHP this , but declined Possible triploidy gestation of SAB; need records Child born at 36 wks with severe jaundice and subsequent deafness 4. Tobacco Currently smoking about 5 cigarettes per day Declined patch and desires cessation 5. Seizure d/o Last seizure was over 3 years ago No meds 6. Asthma Continue albuterol prn 7. Anxiety Currently on no meds Used Xanax in the past Monitor mood post 8. Hx of umbilical hernia repair with mesh 9. Hx of abnormal Pap and cone biopsy Normal paps since and normal this 10. +/I/-/-; HIV NR GCT 76 GBSuria; PCN for ppx Katelin Andrade MD 01/13/2011 4:23 AM documented in this encounter H&P Notes * Ginger Pearce MD - 01/13/2011 12:27 AM CDT R4 OB Admit/Chief Note 01/13/2011 12:29 AM CC: scheduled induction Reviewed patient's history with Dr. Chang. Please refer to their H&P for complete details. HPI: Briefly, Sahra Parks is a 30 y.o. at 38w1d a 13 week ultrasound that is documented. [facility]. Her is complicated by: Patient Active Problem List Diagnoses Date Noted [...] ?triploidy with Dr. Alejandro, D&C done at [facility]; the other due to low [...] repair 07/06/[address] Flynn at [place] ??? Tobacco use complicating or childbirth [...] 3.7 cm ??? HYPOTHYROID 06/22/2010 Component Name 01/11/11 1230 11/30/10 1030 11/08/10 1345 T4FREE 1.11 1.22 1.15 Component Name 01/11/11 1230 11/30/10 1030 11/08/10 1345 TSH 1.59 1.90 3.01 Continue synthroid 125mcg daily ??? Marijuana abuse 06/22/2010 UDS positive for MJ on 07/06/10 ??? Anxiety 06/22/2010 And neurosis; patient denies current symptoms. No medications ??? GBS (group B streptococcus) UTI complicating 06/22/2010 Patient presents today for a scheduled induction following a mature amnio. She has no complaints today. She is having irregular contractions; no LOF or VB; +FM. ROS: Denies N/V/D, F/C, SOB, CP, GREEN, ABD pn, constipation, change in vision, dysuria, hematuria, vaginal discharge, odor or itching OB Hx: OB History Grav Para Term Abortions TAB SAB Ect Mult Living 6 2 0 2 3 1 0 0 0 2 # Outc Date GA Lbr Sal/2nd Wgt Sex Del Anes PTL Lv 1 PRE 2002 36w0d 5lb4oz(2.381kg) M VAGINAL Yes Yes Comments: hearing impaired, jaundice 2 PRE 2009 33w0d 4lb7oz(2.013kg) M No Yes Comments: sPreE req delivery 3 TAB Comments: pill 4 ABT Comments: extra chromosomes D&C, Dr. 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 LUPUS never confirmed on serology ??? Anxiety ??? HYPOTHYROID ??? History of conization of cervix 1997 ??? Benign hypertension no meds ??? HEADACHE ??? ASTHMA ??? ANEMIA ??? Cholesterol serum increased ??? Seizure disorder ??? Thyroid disease ??? Back problem ??? Heart disease ??? HYPERTENSION ??? Epigastric pain ??? UTI (urinary tract infection) Past Surgical History Procedure Date ??? Cervical biopsy, cone 1997 ??? Hernia repair ??? Hernia repair 2007 Allergies: Allergies Allergen Reactions ??? Morphine Anaphylaxis ??? Latex rash ??? Magnesium Salicylate Patient stated that after administration she felt like she was having an anxiety attack and got very overheated ??? Sulfa Drugs Rash and Nausea and/or Vomiting Objective: BP 115/76 Pulse 112 Temp 97.8 ??F Resp 16 Wt 161 lb (73.029 kg) BMI 28.52 kg/m2 NST: Baseline 130 bpm, moderate variability, Reactive. no decelerations. Contractions: every 3-5 minutes, irritable Physical Exam: Per Dr. Charlene Mcarthur's: 6# Cervix: 2-3/50/-2; per Dr Chang Labs: Component Name 01/12/11 2320 11/30/10 1030 11/08/10 1345 WBC 11.7* 8.8 9.6 HGB 11.1* 10.6* 10.9* HCT 32.6* 31.1* 32.6* PLTCOUNT 202 179 219 Component Name 11/30/10 1030 SODIUM 139 POTASSIUM 4.1 CHLORIDE 107 CO2 23 BUN 8 CREATININE 0.41 0.44* GLUCOSE 64* CALCIUM 8.5 ALBUMIN 2.5* ALKPHOS 76 ALT 15 AST 8 TBIL 0.2 TPROT 5.8* EGFR >60 Component Name 01/11/11 1059 09/14/10 1145 COLORUA -- Yellow CHARACTERUA -- Clear SPECGRAVUA -- 1.010 PHUA -- 6.5 PROTEINUA neg -- BLOODUA -- NEGATIVE LEUKOCYTEUA -- NEGATIVE NITRITEUA -- NEGATIVE GLUCOSEUA neg -- KETONEUA neg -- BILIRUBINUA -- NEGATIVE UROBILINUA -- 0.2 WBCUA -- -- RBCUA -- -- EPITHUA -- -- MUCUSUA -- -- CASTUA -- -- CRYSTALUA -- -- BACTERIAUA -- -- YEASTUA -- -- TRICHUA -- -- Assessment/Plan: Sahra Parks is a 30 y.o. at 38w1d by 13wk documented ultrasound 1. IOL ?? Mature amnio FLM 47.7; L/S 3.5 ?? Huff score 3; Will start with cytotec for induction ?? Reviewed risks of induction again with the pt 2. Hypothyroidism ?? TFTs drawn yesterday and are wnl ?? Will continue Synthroid 0.125mcg 3. Poor OB hx ?? Hx of PreE, PTD and SAB x 2 ?? Normal BP and no sx of preE ?? Pt was offered 17-OHP this , but declined ?? Possible triploidy gestation of SAB; need records ?? Child born at 36 wks with severe jaundice and subsequent deafness 4. Tobacco ?? Currently smoking about 5 cigarettes per day ?? Declined patch and desires cessation 5. Seizure d/o ?? Last seizure was over 3 years ago ?? No meds 6. Asthma ?? Continue albuterol prn 7. Anxiety ?? Currently on no meds ?? Used Xanax in the past ?? Monitor mood post 8. Hx of umbilical hernia repair with mesh 9. Hx of abnormal Pap and cone biopsy ?? Normal paps since and normal this 10. +/I/-/-; HIV NR ?? GCT 76 ?? GBSuria; PCN for ppx FWB Reassurring Ginger Pearce MD 01/13/2011 12:29 AM * Ave Mobley MD - 01/13/2011 12:27 AM CDT Teaching Attending Note (Resident note is above) I have interviewed and examined the patient, and discussed the assessment and plan of care with theresident/fellow. My findings include: 30 y.o. G 6 P 2 A 3 female at 38w1d weeks gestation. She is admitted for elective induction after mature amnio. Patientreports: no bleeding, cramping/contractions or leaking of fluid and no preeclamptic sx. She currently denies rashes and joint symptoms. Last seizure was a long time ago. Movement: normal. Patient Active Problem List Diagnoses ??? Supervision of high-risk ??? Lupus (systemic lupus erythematosus) ??? h/o Severe pre-eclampsia, antepartum ??? History of delivery, currently ??? S/p cone biopsy of cervix ??? HYPOTHYROID ??? Marijuana abuse ??? Anxiety ??? GBS (group B streptococcus) UTI complicating ??? SAB (spontaneous ) ??? ASTHMA ??? Status post umbilical hernia repair ??? Tobacco use complicating or childbirth ??? Sequential screen Patient ??? Seizure disorder ??? Carpal tunnel syndrome on left BP 102/70 Pulse 112 Temp 97.5 ??F Resp 16 Wt 161 lb (73.029 kg) BMI 28.52 kg/m2 HEENT: clear Neck: without thyromegaly or adenopathy Lungs: clear to auscultation and percussion Cor: RRR Abdomen: soft, NT Uterus: Soft , NT Extr: no edema I have reviewed the meds and labs Component Name 01/12/11 2320 11/30/10 1030 11/08/10 1345 WBC 11.7* 8.8 9.6 HGB 11.1* 10.6* 10.9* HCT 32.6* 31.1* 32.6* PLTCOUNT 202 179 219 NST is reactive Assessment 1. 38w1d 2. No evidence of lupus. Has not had laboratory findings and we have not seen clinical finding. 3. Asthma, not symptomatic now 4. Seizure disorder?, on no meds and last was a long time ago. 5. History of cone biopsy 6. Hx of delivery and severe preeclampsia in previous pregnancies Plan: Induction of labor as recommended in outpatient department I agree with the findings and plan of care as outlined in the resident/fellow notes. Ave Mobley MD 01/13/2011 8:31 AM * Edilma Chang MD - 01/12/2011 10:14 PM CDT R3 Admission Obstetric History and Physical Exam Sahra Parks is a 30 y.o. female at 38w0d weeks gestation by 6w US c/w 13w doc US Estimated Date of Delivery: 01/26/11 care: high risk [facility] This complicated by: Patient Active Problem List Diagnoses Date Noted [...] H/o 2 sabs (one ?triploidy with Dr. Gingrich, D&C done at [facility]; the other due to low hormone so is on hormone pills now ?progesterone) 1 TAB (took pills) Received records from Dr. Alejandro from 11/1999. U/S revealed gestational sac without pole. D&C pathology revealed immature chorionic villi and decidua. No record of chromosomal studies received from any [facility]. ??? ASTHMA 07/06/2010 Remote, no sxs ??? Status post umbilical hernia repair 07/06/[address] Flynn at [place] ??? Tobacco use complicating or childbirth [...] 3.7 cm ??? HYPOTHYROID 06/22/2010 Component Name 01/11/11 1230 11/30/10 1030 11/08/10 1345 T4FREE 1.11 1.22 1.15 Component Name 01/11/11 1230 11/30/10 1030 11/08/10 1345 TSH 1.59 1.90 3.01 Continue synthroid 125mcg daily ??? Marijuana abuse 06/22/2010 UDS positive for MJ on 07/06/10 ??? Anxiety 06/22/2010 And neurosis; patient denies current symptoms. No medications ??? GBS (group B streptococcus) UTI complicating 06/22/2010 CC: Here for induction HISTORY OF PRESENT ILLNESS: Patient reports ctxs every few minutes for the past few weeks. negative loss of fluid. negative vaginal bleeding. positive movement. OB History Grav Para Term Abortions TAB SAB Ect Mult Living 6 2 0 2 3 1 0 0 0 2 # Outc Date GA Lbr Sal/2nd Wgt Sex Del Anes PTL Lv 1 PRE 2002 36w0d 5lb4oz(2.381kg) M VAGINAL Yes Yes Comments: hearing impaired, jaundice 2 PRE 2009 33w0d 4lb7oz(2.013kg) M No Yes Comments: sPreE req delivery 3 TAB Comments: pill 4 ABT Comments: extra chromosomes D&C, Dr. 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 LUPUS never confirmed on serology ??? Anxiety ??? HYPOTHYROID ??? History of conization of cervix 1997 ??? Benign hypertension no meds ??? HEADACHE ??? ASTHMA ??? ANEMIA ??? Cholesterol serum increased ??? Seizure disorder ??? Thyroid disease ??? Back problem ??? Heart disease ??? HYPERTENSION ??? Epigastric pain ??? UTI (urinary tract infection) Past Surgical History Procedure Date ??? Cervical biopsy, cone 1997 ??? Hernia repair ??? Hernia repair 2006 Allergies Allergen Reactions ??? Morphine Anaphylaxis ??? Latex rash ??? Magnesium Salicylate Patient stated that after administration she felt like she was having an anxiety attack and got very overheated ??? Sulfa Drugs Rash and Nausea and/or Vomiting Current Outpatient Prescriptions on File Prior to Encounter Medication Sig Dispense Refill ??? acetaminophen (TYLENOL) 500 MG tablet Take 1,000 mg by mouth every 6 hours as needed. Maximum allowable Acetaminophen amount = 4 Grams / 24 hours. ??? levothyroxine (SYNTHROID) 125 MCG tablet Take 125 mcg by mouth daily before breakfast. Dose increased 06/19/10 per pharmacy refill records ??? Vit-Fe Fumarate-FA ( VITAMIN) 28-0.8 MG tablet Take 1 Tab by mouth daily. ??? polyethylene glycol 3350 (GLYCOLAX) powder Take 17 g by mouth once daily as needed for Constipation. 119 g 3 ??? docusate sodium (COLACE) 100 MG capsule Take 1 Cap by mouth 2 times daily as needed for Constipation. 60 Cap 5 ??? calcium carbonate (TUMS) 500 MG chew tablet Take 1 Tab by mouth as needed. Indications: Heartburn Family History Problem Relation Age of Onset ??? Hypertension Mother ??? Asthma Mother ??? Hepatitis Mother C ??? Cancer Breast Maternal Grandmother ??? Heart Disease both sides of families ??? OTHER Sister ovarian cysts Social History Smoking Status: Current Everyday Smoker Packs/Day: .25 Years: Smokeless Status: Not on file Alcohol Use: No Drug Use: Hx MJ use Sexual Activity: Yes REVIEW OF SYSTEMS: Reviewed and is Neg except as in HPI PHYSICAL EXAM: BP 120/74 Pulse 112 Temp 97.8 ??F Resp 16 Wt 161 lb (73.029 kg) BMI 28.52 kg/m2 General: alert, cooperative, no distress Lungs: clear to auscultation bilaterally Heart: regular rate and rhythm Abdomen: gravid; NTTP, EFW 6# Extremities: normal, non-tender bilaterally; edema absent heart tracing: [id number]'s variability:moderate Reactive Yes without decelerations Contractions: every 2-6 minutes Cervix: 2-3/50/-3 Consistency: Medium Position: Posterior Bedside ultrasound: Presentation: vertex Assessment/Plan: 30 y.o. female at 38w0d weeks gestation. 1. IOL: s/p Mature amnio: FLM: 47.7; LS: 3.5. 1. Cervix unfavorable, will place cytotec 25mcg now. Risks of Induction: Patient counseled on risks and benefits of IOL including but not limited to prolonged induction, multiple inducing agents, slightly increased risk of infection and section. Pt verbalized understanding and would like to continue. 2. Hypothyroid 1. Continue Levothyroxine 0.125 mcg q day 2. TFTs stable at last check, TSH 1.59 free T4 1.11 on 01/11. 3. Questionable history of lupus. No laborotory confirmation to affirm diagnosis. 4. Hx of PreE - No symptoms today of PreE. BP wnl 1. 24 hour urine protein was 154 on 11/30 5. Hx of PTD 1. 36 wk delivery, declined 17-OHP this 6. Tob - encouraged cessation 7. Seziure d/o - Stable for past 3 years 8. H/o Cone. Pap wnl this 9. H/o SABx2: one ?triploidy (need records from D&C) 10. H/o umbilical hernia repair with mesh 11. Asthma - stable. No sx. Albuterol PRN. 12. Anxiety: no meds currently, hx of Xanax use. 13. H/o child with deafness s/p severe jaundice (36wk delivery) 14. GBS urine culture: PCN prophylaxis while in labor. 15. PNL: A+/I/-/-; HIV NR; GCT: 76; GBS: uria in May FWB Reassuring Discussed with Dr. Portia Chang MD documented in this encounter Procedure Notes * Document, Scanned - 01/18/2011 5:55 PM CDTAssociated Order(s): IMAGING/RADIOLOGY/XRAY RESULTS ORDER documented in this encounter Consult Notes * Michel Salmeron RN - 01/15/2011 1:33 PM CDT Consult: , has lengthy stories about previous experiences. Assisted with . Baby loses latch after a few sucks. Did notice tight frenulum. Referred to peds. Milk easily expressed from breasts. She will latch and stay on with a shield. Reviewed positioning for optimal latch. Instructed to call for any further assistance. documented in this encounter Miscellaneous Notes * Miscellaneous Scans - Document, Scanned - 01/18/2011 5:55 PM CDT * Miscellaneous Scans - Document, Scanned - 01/18/2011 5:55 PM CDT * Miscellaneous Scans - Document, Scanned - 01/18/2011 5:55 PM CDT * Miscellaneous Scans - Document, Scanned - 01/18/2011 5:55 PM CDT * Delivery Summary - Mickie King RN - 01/14/2011 12:47 AM CDT Delivery Summary /Para: Estimated Due Date: Estimated Date of Delivery: 01/26/11 Estimated Gestational Age: 38w2d GBS: Positive Number of Antibiotic Doses: More Than 5 Transcribed Labs: Blood Type (Manually Reproduced): A RH (Manually Reproduced): Positive Syphilis Serology (Manually Reproduced): Negative HIV (Manually Reproduced): Negative Hepatitis B Surface Antigen (Manually Reproduced): Negative Rubella Status ( Manually Reproduced): Immune Delivery Data Mother: Labor Events Augmentation Method: Induction Method: Misoprostol ;Oxytocin Intrapartum Events Anesthesia/Analgesia: Epidural Labor Complications: Delivery Episiotomy: None Lacerations: None Repair Suture: None Estimated Blood Loss: 250 250 Delivery Data: Information for the patient's : Charly, Baby Girl Sahra [[id number]] Estimated Gestational Age: Gestational Age: 38.3 weeks. Delivery Details Date of 01/14/2011 Time of : 12:13 AM Delivery Type: Presentation Delivery Presentation: Vertex:OA Membranes Membrane Status: Spontaneous Rupture Date: 01/13/2011 Rupture Time: 10:00 PM Fluid Description: Clear Placenta Data Placenta Delivery Date and Time: 01/14/2011 12:19 AM Placenta Appearance/Removal: Intact Sent to Pathology Cord Data Cord Vessels: 3 Vessels Cord Complications: Nuchal x1 Cord Blood Disposition: Gases Sent: Yes Venous Arterial Stabilization Suction Method: Bulb Secretions: Clear Thin Airway Support: Intubation: Tube Size Performed by: Placement Validated by: , Tube Secured by: Tube Secured at: Number of Attempts: Tolerance: Thermoregulation Support: More Interventions Needed: Assessment (1 min): 9 (5 min): 9 Delivery Outcome Living: Yes Sex: Female Measurements Weight: 2995 g (6 lb 9.6 oz) Length: 20 inches Head Circumference: 34 inches Present at Delivery: MONIQUE Churchill was present for delivery. * Delivery Summary - Sofia Boo MD - 01/14/2011 12:47 AM CDT OB Staff I reviewed the summary and agree with findings. Sofia Boo MD 01/14/2011 2:16 AM * Delivery Summary - Elaina Bradley MD - 01/14/2011 12:30 AM CDT R2 Physician Delivery Note 01/14/2011 12:31 AM 30 y.o. [id number]. Estimated Date of Delivery: 01/26/11 Complication: Possible lupus, possible seizure disorder, hypotension, tobacco use, history of delivery and severe preeclampsia in previous pregnancies Labor: induced Anesthesia: epidural Episiotomy/Laceration: None/none Repair: none Delivery: spontaneous Position: SHERRON Information for the patient's : Charly, Baby Jimena Bocanegra [[id number]] Date of 01/14/2011 Time of : 12:13 AM Sex: Female Weight: 2995 g (6 lb 9.6 oz) (1 min): 9 (5 min): 9 (10 min): Placenta: spontaneous, intact, 3 vessel cord EBL: 250 cc's Complications: none Comments: Alma José, and Danieltio present for delivery of the infant, and Dr. Boo present in addition for delivery of the placenta Elaina Bradley MD 01/14/2011 12:31 AM * Delivery Summary - Sofia Boo MD - 01/14/2011 12:30 AM CDT OB Staff Attending I have reviewed the above delivery note and agree with the resident findings. I was immediately available during delivery and was present for delivery of placenta. Sofia Boo MD 01/14/2011 2:15 AM documented in this encounter Plan of Treatment Not on file documented as of this encounter Procedures Procedure Name Priority Date/Time Associated Diagnosis Comments IMAGING/RADIOLOGY/XRA Y RESULTS ORDER 01/18/2011 5:55 PM CDT CBC W AUTO DIFFERENTIAL STAT 01/15/2011 10:00 AM CDT CBC W AUTO DIFFERENTIAL AM Draw 01/14/2011 5:21 AM CDT BLOOD GASES CORD PATRICK RT STAT 01/14/2011 12:45 AM CDT BLOOD GASES CORD ARTERIAL RT STAT 01/14/2011 12:45 AM CDT GROSS + MICRO EXAM GLADIS 01/14/2011 12 :20 AM CDT GROSS + MICRO EXAM Today 01/14/2011 12 :20 AM CDT DRUG SCREEN URINE TRIAGE PANEL STAT 01/13/2011 9:15 AM CDT BLOOD TYPE VERIFICATION STAT 01/12/2011 11:35 PM CDT TYPE + SCREEN PANEL STAT 01/12/2011 1 1:20 PM CDT CBC W AUTO DIFFERENTIAL STAT 01/12/2011 11:20 PM CDT URINALYSIS OBSTETRICS - POINT OF CARE STAT 01/12/2011 9:15 PM CDT documented in this encounter Results * IMAGING/RADIOLOGY/XRAY RESULTS ORDER (01/18/2011 5:55 PM CDT) Anatomical Region Laterality Modality Other Narrative Transcriptions Document, Scanned - 01/18/2011 5:55 PM CDT Scanned Document IMAGING * (ABNORMAL) CBC W AUTO DIFFERENTIAL (01/15/2011 10:00 AM CDT) WBC 12.4(H) 4.0 - 10.0 K/CUMM [facility] RBC 3.89 3.80 - 5.80 M/CUMM [facility] Hemoglobin 11.6(L) 12.0 - 16.0 gm/dl [facility] Hematocrit 35.0(L) 37.0 - 47.0 % [facility] MCV 90.0 80.0 - 100.0 fl [facility] MCH 29.8 26.0 - 34.0 pg [facility] MCHC 33.1 31.0 - 37.0 gm/dl [facility] Platelet Count 179 150 - 400 K/CUMM [facility] RDW 13.8 11.5 - 14.5 % [facility] Granulocytes % 70.2(H) 50 - 70 % [facility] Lymphocytes % 20.6(DE) 20 - 40 % [facility] Monocytes % 6.0 0 - 12 % [facility] Eosinophils % 2.0(DE) 0 - 5 % [facility] Basophils % 0.2 0 - 2 % [facility] Granulocytes Absolute 8.70(H) 2.00 - 7.00 x1000/cmm [facility] Lymphocytes Absolute 2.56 0.80 - 4.00 x1000/cmm [facility] Monocytes Absolute 0.75 0.00 - 1.20 x1000/cmm [facility] Eosinophils Absolute 0.25 0.00 - 0.50 x1000/cmm [facility] Basophils Absolute 0.02 0.00 - 0.20 x1000/cmm [facility] BLOOD SPECIMEN / Unknown 01/15/2011 10:00 AM CDT 01/15/2011 10:06 AM CDT Roberto Serrano MD LAB - HEMATOLOGY ORD ERABLES [facility] [address] [place] [address] * (ABNORMAL) CBC W AUTO DIFFERENTIAL (01/14/2011 5:21 AM CDT) WBC 13.2(H) 4.0 - 10.0 K/CUMM [facility] RBC 3.59(L) 3.80 - 5.80 M/CUMM [facility] Hemoglobin 10.7(L) 12.0 - 16.0 gm/dl [facility] Hematocrit 31.7(L) 37.0 - 47.0 % [facility] MCV 88.3 80.0 - 100.0 fl [facility] MCH 29.8 26.0 - 34.0 pg [facility] MCHC 33.8 31.0 - 37.0 gm/dl [facility] Platelet Count 164 150 - 400 K/CUMM [facility] RDW 13.4 11.5 - 14.5 % [facility] Granulocytes % 76.6(H) 50 - 70 % [facility] Lymphocytes % 14.3(DL) 20 - 40 % [facility] Monocytes % 7.6 0 - 12 % [facility] Eosinophils % 0.8(DE) 0 - 5 % [facility] Basophils % 0.2 0 - 2 % [facility] Granulocytes Absolute 10.12(H) 2.00 - 7.00 x1000/cmm [facility] Lymphocytes Absolute 1.89 0.80 - 4.00 x1000/cmm [facility] Monocytes Absolute 1.01 0.00 - 1.20 x1000/cmm [facility] Eosinophils Absolute 0.11 0.00 - 0.50 x1000/cmm [facility] Basophils Absolute 0.02 0.00 - 0.20 x1000/cmm [facility] BLOOD SPECIMEN / Unknown 01/14/2011 5:21 AM CDT 01/14/2011 5:53 AM CDT Elaina Bradley MD LAB - HEMATOLOGY ORD ERABLES [facility] [address] [place] [address] * (ABNORMAL) BLOOD GASES CORD VENOUS (01/14/2011 12:45 AM CDT) pH Cord Venous 7.285 7.18 - 7.33 [facility] pCO2 Cord Venous 57.4(H) 43 - 55 mm Hg [facility] pO2 Cord Venous 17.3(L) 22 - 33 mm Hg [facility] Base Excess Cord Venous -1.2 -2.0 - 2.0 [facility] HCO3 Cord Venous 26.7 mmol/L [facility] Panic Value(s) Read Back By no panics [facility] Comment RT noted [facility] CORD BLOOD SPECIMEN / Unknown 01/14/2011 12:45 AM CDT 01/14/2011 12:58 AM CDT Aurora Esteves MD LAB - BLOOD GASES O LAZ Performing Organization Address [facility] de Phone Number [facility] [address] [place] [address] * BLOOD GASES CORD ARTERIAL (01/14/2011 12:45 AM CDT) pH Cord Arterial 7.287 7.16 - 7.30 [facility] pCO2 Cord Arterial 50.5 40 - 55 mm Hg [facility] pO2 Cord Arterial 17.5 12 - 20 mm Hg [facility] HCO3 Cord Arterial 23.6 mmol/L [facility] Base Excess Cord Arterial -3.6 -2.0 - 2.0 [facility] Panic Value(s) Read Back By no panics [facility] Comment RT noted [facility] CORD BLOOD SPECIMEN / Unknown 01/14/2011 12:45 AM CDT 01/14/2011 12:56 AM CDT Aurora Esteves MD LAB - BLOOD GASES O LAZ Performing Organization Address [facility] de Phone Number [facility] [address] [place] [address] * GROSS + MICRO EXAM (01/14/2011 12:20 AM CDT) Result CASE NUMBER [id number] Comment: ORDERING PHYSICIAN ??ELAINA BRADLEY SPECIMEN TYPE ?Placenta 3rd Trimes Date ? 01/15/2011 Physician ?Yunier Schreiber Gross Description ? The specimen is received in one formalin-filled container, labeled with the patient's name Sahra Parks and no additional label. ??It consists [...] intact cotyledons. ??Sectioned surfaces are likewise unremarkable. ??Editorial Intern sections are submitted in cassettes A-C. JF/vl [...] umbilical cord ?with no pathologic changes GM/na Order Management Specialist ? na Pathologist ?Noa Madrigal MD [place]. ?01/16/2011 1204 <1> CPT code ? 88340 MISCELLANEOUS SAMPLES / Unknown 01/14/2011 12:20 AM CDT 01/15/2011 10:41 AM CDT Historical Provider LAB - PATHOLOGY/C YTOLOGY ORDERABLES * GROSS + MICRO EXAM (01/14/2011 12:20 AM CDT) [facility] Date 01/15/11 [facility] Physician(s) Wander Schreiber as [facility] Gross Description [facility] Comment: The specimen is received in one formalin-filled container, labeled with the patient's name Sahra Parks and no additional label. ??It consists [...] intact cotyledons. ??Sectioned surfaces are likewise unremarkable. ??Editorial Intern sections are submitted in cassettes A-C. JF/vl Microscopic Examination [facility] Comment: Microscopic examination reveals a three vessel umbilical cord showing no evidence of funisitis or thrombosis. The chorioamniotic membranes show no evidence of inflammation, and meconium is not identified. The chorionic villi are small, mature, and well vascularized with no evidence of villitis or infarction. The decidua basalis and chorionic plate show no pathologic changes. GM/na Diagnosis [facility] Comment: I. ?Placenta: -- ?Mature placenta, 540 grams -- ?Three vessel umbilical cord ?with no pathologic changes GM/na Order Management Specialist na [facility] Pathologist Noa Madrigal MD [facility] SNOMED [facility] CPT Code 82854 [facility] ENTIRE PLACENTA / Unknown 01/14/2011 12:20 AM CDT 01/15/2011 10:41 AM CDT Elaina Bradley MD LAB - PATHOLOGY/CYTO LOGY ORDERABLES Performing Organization Address [facility] Co de Phone Number [facility] [address] [place] [phone] * DRUG SCREEN TRIAGE PANEL (01/13/2011 9:15 AM CDT) Phencyclidine Screen Urine NOT DETECTED 25 ng/dl Cutoff [facility] Benzodiazepines Screen Urine NOT DETECTED 300 ng/ml Cutoff [facility] Cocaine Screen Urine NOT DETECTED 300 ng/ml Cutoff [facility] Amphetamines Screen Urine NOT DETECTED 1000 ng/ml Cutoff [facility] Cannabinoids Screen Urine NOT DETECTED 50 ng/ml Cutoff [facility] Opiate Screen Urine NOT DETECTED 300 ng/ml Cutoff [facility] Barbiturates Screen Urine NOT DETECTED 300 ng/ml Cutoff [facility] URINE / Unknown 01/13/2011 9 :15 AM CDT 01/13/2011 9:25 AM CDT Edilma Stallings MD LAB - URINE CHEMISTRY ORDERABLES Performing Organization Address [facility] Co de Phone Number [facility] [address] [place] [address] * BLOOD TYPE VERIFICATION (01/12/2011 11:35 PM CDT) ABO Rh A Pos SEE BELOW [facility] Comment: Weak D testing is not performed at [facility] BLOOD SPECIMEN / Unknown 01/12/2011 11:35 PM CDT 01/13/2011 12:15 AM CDT Yunier Schreiber MD LAB - BLOOD BANK ORD ERABLES Performing Organization Address [facility] Co de Phone Number [facility] [address] [place] [phone] * TYPE + SCREEN PANEL (01/12/2011 11:20 PM CDT) ABO Rh A Pos SEE BELOW [facility] Comment: Weak D testing is not performed at [facility] Antibody Screen Neg [facility] Previous History Check Done No historical blood type. ??Blood type confirmation needed prior to transfusion. [facility] BLOOD SPECIMEN / Unknown 01/12/2011 11:20 PM CDT 01/12/2011 11:59 PM CDT Edimla Stallings MD LAB - BLOOD BANK ORDERABLES [facility] [address] [place] [address] * (ABNORMAL) CBC W AUTO DIFFERENTIAL (01/12/2011 11:20 PM CDT) WBC 11.7(H) 4.0 - 10.0 K/CUMM [facility] RBC 3.70(L) 3.80 - 5.80 M/CUMM [facility] Hemoglobin 11.1(L) 12.0 - 16.0 gm/dl [facility] Hematocrit 32.6(L) 37.0 - 47.0 % [facility] MCV 88.1 80.0 - 100.0 fl [facility] MCH 30.0 26.0 - 34.0 pg [facility] MCHC 34.0 31.0 - 37.0 gm/dl [facility] Platelet Count 202 150 - 400 K/CUMM [facility] RDW 13.4 11.5 - 14.5 % [facility] Granulocytes % 63.5 50 - 70 % [facility] Lymphocytes % 24.3 20 - 40 % [facility] Monocytes % 8.3 0 - 12 % [facility] Eosinophils % 1.9 0 - 5 % [facility] Basophils % 0.3 0 - 2 % [facility] Granulocytes Absolute 7.41(H) 2.00 - 7.00 x1000/cmm [facility] Lymphocytes Absolute 2.84 0.80 - 4.00 x1000/cmm [facility] Monocytes Absolute 0.97 0.00 - 1.20 x1000/cmm [facility] Eosinophils Absolute 0.22 0.00 - 0.50 x1000/cmm [facility] Basophils Absolute 0.03 0.00 - 0.20 x1000/cmm [facility] BLOOD SPECIMEN / Unknown 01/12/2011 11:20 PM CDT 01/12/2011 11:59 PM CDT Edilma Stallings MD LAB - HEMATO LOGY ORDERABLES [facility] [address] [place] [address] * URINALYSIS OBSTETRICS - POINT OF CARE (01/12/2011 9:15 PM CDT) Glucose UA negative Negative [facility] Bilirubin UA Negative [facility] Ketone UA negative Negative [facility] Specific [place] UA POCT 1.000 - 1.030 [facility] POCT [...] POINT OF CARE ORDERABLES Performing Organization Address [facility] Co de Phone Number [facility] [place] [place] [address] documented in this encounter Visit Diagnoses Diagnosis Unusually large fetus causing disproportion, unspecified as to episode of care (HCC) Unusually large fetus causing disproportion, unspecified as to episode of care documented in this encounter Administered Medications Inactive Administered Medications - up to 3 most recent administrations Medication Order MAR Action Action Date Dose Rate Site citric acid-sodium citrate (BICITRA) solution ADS Med 1 dose, Starting on 01/13/11 at 204, Until 01/13/11 at 210, MICKIE HORTON: cabinet override $ Given 01/13/2011 9:04 PM CDT 30 mL docusate sodium (COLACE) capsule 100-200 mg 100-200 mg, Oral, AT BEDTIME PRN, Constipation, Starting on 01/14/11 at 0336, Until Sat01/17/11 at 0149 $ Given 01/15/2011 8:15 PM CDT 100 mg ibuprofen (MOTRIN) tablet 600 mg 600 mg, Oral, EVERY 4 HOURS PRN, Pain, Starting on 01/14/11 at 0336, Until Sat01/17/11 at 0149, Mild to Moderate pain (Pain Scale 1- 6) Maximum allowable amount = 3200 mg / 24 hours. $ Given 01/16/2011 7:59 AM CDT 600 mg $ Given 01/16/2011 3:42 AM CDT 600 mg $ Given 01/15/2011 8:15 PM CDT 600 mg influenza virus vacc (FLUARIX; FLUZONE) injection 0.5 mL 0.5 mL, Intramuscular, ONCE, 1 dose, On Sat01/16/11 at 0930, Shake well before using. WASTE DISPOSAL INSTRUCTIONS: Black Bin Disposal required. $ Given 01/16/2011 9:03 AM CDT 0.5 mL Left Arm lactated ringers infusion ADS Med 1 dose, Starting on Sat01/13/11 at 2049, Until Sat01/13/11 at 2104, MICKIE HORTON: cabinet override lactated ringers infusion at 125 mL/hr, Intravenous, CONTINUOUS, Starting on Sat01/12/11 at 2315, Until Sat01/14/11 at 0336, LATEX FREE PRODUCT ; Start IV with 18 gauge angiocath. $ Given 01/13/2011 9:04 PM CDT $ New Bag/Syringe 01/13/2011 6:41 PM CDT 125 mL /hr $ New Bag/Syringe 01/13/2011 8:48 AM CDT 125 mL /hr lanolin (LANOLIN) ointment Topical, PRN, Dry Skin, Sore or cracked nipples., Starting on Sat01/14/11 at 0336, Until Sat01/17/11 at 0149, Apply purified Lanolin to sore or cracked nipples, if needed. May keep at bedside. $ Given 01/16/2011 8:06 AM CDT 2 Each $ Given 01/16/2011 1:04 AM CDT Each $ Given 01/14/2011 10:30 AM CDT Each levothyroxine (SYNTHROID) tablet 125 mcg 125 mcg, Oral, DAILY BEFORE BREAKFAST, First dose on 01/13/11 at 0800, Until Discontinued, Take in the morning on an empty stomach. Do not give within 4 hours of antacids, iron or calcium supplements. $ Given 01/16/2011 7:59 AM CDT 125 mcg $ Given 01/15/2011 11:56 AM CDT 125 mcg $ Given 01/14/2011 9:19 AM CDT 125 mcg metoclopramide (REGLAN) injection 10 mg 10 mg, Intravenous, EVERY 6 HOURS PRN, Nausea/Vomiting, Starting on 01/13/11 at 2127, Until 01/14/11 at 0336 $ Given 01/13/2011 9:29 PM CDT 10 mg metoclopramide (REGLAN) injection ADS Med 1 dose, Starting on 01/13/11 at 2131, Until 01/13/11 at 2129, MICKIE HORTON: cabinet override misoprostol (CYTOTEC) tablet 25 mcg 25 mcg, Oral, ONCE, 1 dose, On Sat01/12/11 at 2315, Take with food, take last dose of the day at bedtime $ Given 01/13/2011 4:28 AM CDT 25 mcg $ Given 01/13/2011 12:10 AM CDT 25 mcg misoprostol (CYTOTEC) tablet 25 mcg 25 mcg, Vaginal, ONCE, 1 dose, On 01/13/11 at 0430, Take with food, take last dose of the day at bedtime $ Admin. by Other Provider 01/13/2011 8:45 AM CDT 25 mcg misoprostol (CYTOTEC) tablet 25 mcg 25 mcg, Oral, ONCE, 1 dose, On 01/13/11 at 1400, Take with food, take last dose of the day at bedtime $ Admin. by Other Provider 01/13/2011 1:51 PM CDT 25 mcg misoprostol (CYTOTEC) tablet ADS Med 1 dose, Starting on 01/13/11 at 0428, Until 01/13/11 at 0428, JESUS GUIDRY: cabinet override nalbuphine (NUBAIN) 10 mg/ml injection ADS Med 1 dose, Starting on 01/13/11 at 1812, Until 01/13/11 at 1816, JUAN COE: cabinet override nalbuphine (NUBAIN) injection 10 mg 10 mg, Intravenous, ONCE, 1 dose, On 01/13/11 at 1815 $ Given 01/13/2011 6:16 PM CDT 10 mg ondansetron (ZOFRAN) injection 4 mg 4 mg, Intravenous, EVERY 6 HOURS PRN, Nausea/Vomiting, Starting on 01/12/11 at 2242, Until 01/14/11 at 0336, LATEX FREE PRODUCT $ Given 01/13/2011 6:39 PM CDT 4 mg oxycodone-acetaminophen (PERCOCET) 5-325 MG tablet 1-2 Tab 1-2 tablet, Oral, EVERY 4 HOURS PRN, Pain, Starting on 01/14/11 at 0336, Until Sat01/17/11 at 0149, For severe pain. May give ibuprofen 600 mg with Percocet. Maximum allowable acetaminophen amount = 4 Grams / 24 hours. $ Given 01/16/2011 7:59 AM CDT 1 tablet $ Given 01/16/2011 3:42 AM CDT 1 tablet $ Given 01/15/2011 8:15 PM CDT 1 tablet oxycodone-acetaminophen (PERCOCET) 5-325 mg tablet ADS Med 1 dose, Starting on Sat01/14/11 at 0211, Until Sat01/14/11 at 0210, MICKIE HORTON: cabinet override oxytocin (PITOCIN) 30 units in 500 ml normal saline IV solution ADS Med 1 dose, Starting on 01/13/11 at 1801, Until 01/13/11 at 1813, JUAN COE: cabinet override oxytocin (PITOCIN) 30 units in 500 ml normal saline IV solution 1-20 lisa-units/min (rounded to 1-20 mL/hr), Intravenous, CONTINUOUS, Starting on 01/13/11 at 1830, Until 01/14/11 at 0336, Initiate Oxytocin infusion at 2 milliunits/min. Increase by 2 milliunits per minute every 30 minutes PRN good labor. If Oxytocin infusion is turned off, restart as followed: A. If Oxytocin has been off for less than 30 minutes, restart induction at rate prior to non-reassuring pattern or per physicians order. B. If Oxytocin has been off for more than 30 minutes, restart induction at half rate, or per physicians order. Rate Change 01/13/2011 11:00 PM CDT 10 lisa-units/min 10 mL/hr Rate Change 01/13/2011 10:27 PM CDT 8 lisa-units/min 8 mL /hr Rate Change 01/13/2011 7:36 PM CDT 6 lisa-units/min 6 mL/ hr penicillin G pot in dextrose IVPB 3 Million Units 3 Million Units, at 100 mL/hr, Intravenous, EVERY 4 HOURS, First dose on 01/13/11 at 0330, Until Discontinued, LATEX FREE PRODUCT $ Given 01/13/2011 9:23 PM CDT 3 Million Units 100 mL/hr $ Given 01/13/2011 4:30 PM CDT 3 Million Units 100 mL/h r $ Given 01/13/2011 12:49 PM CDT 3 Million Units 100 mL/ hr penicillin G potassium IVPB 5 Million Units 5 Million Units, at 100 mL/hr, Intravenous, ONCE, 1 dose, On Sat01/12/11 at 2315 $ Given 01/12/2011 11:38 PM CDT 5 Million Units 100 mL/hr plus 27-1 MG tablet 1 Tab 1 tablet, Oral, DAILY, First dose on Sat01/14/11 at 0900, Until Discontinued $ Given 01/16/2011 8:01 AM CDT 1 tablet $ Given 01/15/2011 8:52 AM CDT 1 tablet $ Given 01/14/2011 3:58 PM CDT 1 tablet ropivacaine (NAROPIN) 2 mg/ml injection ADS Med 1 dose, Starting on 01/13/11 at 2049, Until 01/13/11 at 2105, MICKIE HORTON: cabinet override ropivacaine (NAROPIN) 2 MG/ML injection 2-14 mL/hr, Epidural, CONTINUOUS, Starting on 01/13/11 at 2145, Until 01/14/11 at 0336, Demand Dose: 3 mL Lock out: 20 minutes 1 hour limit: 22 mL $ Admin. by Other Provider 01/13/2011 9:05 PM CDT 200 mL documented in this encounter Active and Recently Administered Medications Times are shown in CDT. Scheduled Medication Order 01/14/2011 01/15/2011 01/16/2011 influenza virus vacc (FLUARIX; FLUZONE) injection 0.5 mL (COMPLETED) 0.5 mL, Intramuscular, ONCE, 1 dose, On Sat01/16/11 at 0930, Shake well before using. WASTE DISPOSAL INSTRUCTIONS: Black Bin Disposal required. 0903 ($ Given - Provider: Genesis Iraheta RN) levothyroxine (SYNTHROID) tablet 125 mcg (CANCELED) 125 mcg, Oral, DAILY BEFORE BREAKFAST, First dose on 01/13/11 at 0800, Until Discontinued, Take in the morning on an empty stomach. Do not give within 4 hours of antacids, iron or calcium supplements. 0919 ($ Given - Provider: Meenu Main RN) 0800 (Not Administered - Provider: Sabrina Estrada RN - Reason: See Comments - Comment: pt wishes to wait until before lunch)1156 ($ Given - Provider: Sabrina Estrada RN) 0759 ($ Given - Provider: Genesis Iraheta RN) plus 27-1 MG tablet 1 Tab (CANCELED) 1 tablet, Oral, DAILY, First dose on 01/14/11 at 0900, Until Discontinued 1558 ($ Given - Provider: Meenu Main RN) 0852 ($ Given - Provider: Sabrina Estrada RN) 0801 ($ Given - Provider: Genesis Iraheta RN) PRN Medication Order 01/14/2011 01/15/2011 01/16/2011 docusate sodium (COLACE) capsule 100-200 mg (CANCELED) 100-200 mg, Oral, AT BEDTIME PRN, Constipation, Starting on 01/14/11 at 0336, Until Sat01/17/11 at 0149 2014 ($ Given - Provider: Katie Velarde, YANET) ibuprofen (MOTRIN) tablet 600 mg 600 mg, Oral, EVERY 4 HOURS PRN, Pain, Starting on 01/14/11 at 0336, Until Sat01/17/11 at 0149, Mild to Moderate pain (Pain Scale 1- 6) Maximum allowable amount = 3200 mg / 24 hours. 0918 ($ Given - Provider: Meenu Main RN) 0639 ($ Given - Provider: Yeni Joshi RN)1156 ($ Given - Provider: Sabrina Estrada RN)1602 ($ Given - Provider: Jordana Starkey, YANET)2014 ($ Given - Provider: Katie Velarde RN) 0342 ($ Given - Provider: Ivory Gilbert RN)0759 ($ Given - Provider: Genesis Iraheta, YANET) lanolin (LANOLIN) ointment (CANCELED) Topical, PRN, Dry Skin, Sore or cracked nipples., Starting on 01/14/11 at 0336, Until Sat01/17/11 at 0149, Apply purified Lanolin to sore or cracked nipples, if needed. May keep at bedside. 1030 ($ Given - Provider: Meenu Main RN) 0104 ($ Given - Provider: Katie Velarde, YANET)0806 ($ Given - Provider: Genesis Iraheta, YANET) oxycodone-acetaminophen (PERCOCET) 5-325 MG tablet 1-2 Tab 1-2 tablet, Oral, EVERY 4 HOURS PRN, Pain, Starting on 01/14/11 at 0336, Until 01/17/11 at 0149, For severe pain. May give ibuprofen 600 mg with Percocet. Maximum allowable acetaminophen amount = 4 Grams / 24 hours. 0210 ($ Given - Provider: Mickie King RN)1446 ($ Given - Provider: Meenu Main RN) 0852 ($ Given - Provider: Sabrina Estrada, YANET)1602 ($ Given - Provider: Jordana Starkey, YANET)2014 ($ Given - Provider: Katie Velarde, YANET) 0342 ($ Given - Provider: Ivory Gilbert, YANET)0759 ($ Given - Provider: Genesis Iraheta, YANET) documented in this encounter Care Teams Sdc Teacher Relationship Specialty Start Date End Date Clinic, [facility] [address] [place] [address] PCP - General 07/06/10 11/21/20 documented as of this encounter
--- OUTSIDE RECORDS SUMMARY | 2024-04-26 21:20 | XMS_ITS | Encounter Summary ---
Author Organization [facility] Address [address] [facility] [place] [address] Care Team Providers Care Copy Holder Name Role Phone Clinic, [facility] Primary Care Provider [phone] Encounter Details Date Type Department Care Team (Latest Contact Info) Description 08/06/2010 12:01 AM CDT - 09/05/2010 11:59 PM T Hospital Encounter [facility] MATERNAL/ EVALUATION UNIT [address] [place] [address] Jefferson Monroe MD [address] [place] [address] Clinic Discharge Disposition: Home or Self Care [...] on filedocumented in this encounter Care Teams Copy Holder Relationship Specialty Start Date End Date Clinic, [facility] [address] [place] [address] PCP - General 07/06/10 11/21/20 documented as of this encounter
--- OUTSIDE RECORDS SUMMARY | 2024-04-26 21:20 | XMS_ITS | Encounter Summary ---
Author Organization [facility] Address [address] [place] [address] Care Team Providers Care Executive Compensation Analyst Name Role Phone Clinic, [facility] Primary Care Provider [phone] Encounter Details Date Type Department Care Team (Latest Contact Info) Description 12/08/2010 12:01 AM CDT - 12/08/2010 11:59 PM T Hospital Encounter [facility] MATERNAL/ EVALUATION UNIT [address] [place] [address] Jefferson Monroe MD [address] [place] [address] Clinic Discharge Disposition: Home or Self Care [...] Diagnoses Diagnosis Supervision of other high-risk (V23.89) ([facility]) Supervision of other high-risk documented in this encounter Care Teams Executive Compensation Analyst Relationship Specialty Start Date End Date Clinic, [facility] [address] [place] [address] PCP - General 07/06/10 11/21/20 documented as of this encounter
--- OUTSIDE RECORDS SUMMARY | 2024-04-26 21:20 | XMS_ITS | Encounter Summary ---
Author Organization [facility] Address [address] [place] [address] Care Team Providers Care Telecasting Technician Name Role Phone Clinic, [facility] Primary Care Provider [phone] Reason for Visit * Reason Onset Date Comments Results 01/11/2011 Encounter Details Date Type Department Care Team (Late st Contact Info) Description 01/11/[address] [facility] MATERNAL/ EVALUATION UNIT [address] [facility] [place] [address] Brook Velasco MD Results Social History Tobacco Use Types Packs/Day [...] encounter Miscellaneous Notes * Telephone Encounter - Brook Velasco MD - 01/11/2011 3:31 PM CDT Clinic Called patient regarding her amnio results. FLM transitional (47.7), but L/S mature (3.5). Patient instructed that this was adequate indication of lung maturity for induction, but that she still needs to call before she comes in to make sure that a bed is available. She voiced understand and denied questions. Brook Velasco MD 01/11/2011 3:33 PM documented in this encounter Plan of Treatment Not on file documented as of this encounter Visit Diagnoses Not on filedocumented in this encounter Care Teams Telecasting Technician Relationship Specialty Start Date End Date Clinic, [facility] [address] [place] [address] PCP - General 07/06/10 11/21/20 documented as of this encounter
--- OUTSIDE RECORDS SUMMARY | 2024-04-26 21:20 | XMS_ITS | Encounter Summary ---
Author Organization [facility] Address [address] [place] [address] Care Team Providers Care Mud Temperer Name Role Phone Clinic, [facility] Ob/Med Primary Care Provider [phone] Encounter Details Date Type Department Care Team (Latest Contact Info) Description 11/08/2010 11:58 AM CDT - 11/08/2010 11:59 PM CDT Hospital Encounter [facility] MATERNAL/ EVALUATION UNIT [address] [place] [address] Discharge Disposition: Home or Self Care Social [...] Sign Reading Time Taken Comments Blood Pressure 118/70 11/08/2010 12:00 PM CDT Pulse - - Temperature - - Respiratory Rate - - Oxygen Saturation - - Inhaled Oxygen Concentration - - Weight 69.9 kg (154 lb) 11/08/2010 12:00 PM CDT Height - - Body [...] as of this encounter Progress Notes * Raf Zuñiga MD - 11/08/2010 1:07 PM CDT R1 High Risk Clinic Return Visit 11/08/2010 S: Lucie Parks is a 30 y.o. @ 28w5d Today she notes increased fatigue, weight gain. Currently taking Levo for hypothyroid. She reports messing up her 24 hr protein collection. Denies CTX, LOF, VB; +FM Her is c/b: Patient Active Problem List Diagnoses Date Noted ??? Seizure disorder 09/14/2010 No medications ??? Carpal tunnel syndrome on left 09/14/2010 Transient, intermittent and more with activity. Consider braces if worsens ??? SAB (spontaneous ) 07/06/2010 H/o 2 sabs (one ?triploidy with Dr. Alejandro, D&C done at [facility]; the other due to low hormone [...] repair 07/06/[address] Flynn at [facility] ??? Tobacco use complicating or childbirth 07/06/2010 ??? Sequential screen Patient 07/06/2010 NT normal. Second part of screen negative. ??? Supervision of high-risk 06/22/2010 Datinweeks documented scan c/w 13w scan (4/6 was 13w6d) PNL: A+/I/-/-; HIV NR Hbg/Plt: [...] 06/22/2010 ??? History of delivery, currently 06/22/2010 36wk spontaneous PTD 33wk induction due to superimposed severe Pre-E ??? S/p cone biopsy of cervix 06/22/2010 CL 3.7 cm ??? HYPOTHYROID 06/22/2010 Serial TFTs during ??? Marijuana abuse 06/22/2010 UDS positive for MJ on 07/06/10 ??? Anxiety 06/22/2010 And neurosis ??? GBS (group B streptococcus) UTI complicating 06/22/2010 O: Vitals: 11/08/10 1200 BP: 118/70 Weight: 154 lb (69.854 kg) FH 29 FHT 138 Component Name 11/08/10 1227 PROTEINUA neg GLUCOSEUA neg KETONEUA neg A/P: Lucie Parks is a 30 y.o. at 28w5d 1. Hypothyroid- 09/14 TSH-2.77, freeT4- 1.27, Will redraw today, 1. Taking Levo 0.125 mcg 2. Fatigue and weight gain may be secondary to thyroid dysfunction, will adjust levo based on labs today 2. HTN- BP stable today 3. Hx of PreE- No symptoms today of PreE. BP wnl 1. Will collect 24 hour urine 4. Cone Bx of Cervix 5. Hx of PTD 1. 36 wk delivery, refused 17-OHP this 6. Hx of SAB- took hormones earlier this 7. Tob- encouraged cessation 1. Patch gives her rash and gum makes her nautious 8. Seziure d/o-stable, none for 3 years 9. Carpel tunnel syndrome 1. Will order splint 10. GBS urine culture this 11. U/S 11/08- reportedly normal growth, CL 3.1 12. RTC in 2 weeks- Will call with any abnormal lab results D/W Dr Zara Garrison MD 11/08/2010 1:07 PM MFM Fellow Patient seen, examined and discussed with Dr. Garrison. Agree with resident exam and findings. Exam: Assessment: Lucie Parks is a 30 y.o. at 28w5d. Plan: 1. Hypothyroid: Will recheck TFT's today. 2. CHTN: BP normal today. Will redo baseline 24 hour collection for protein. US showed AGA growth today. surveillance at 32 weeks and monthly interval growth. 3. History of cone biopsy of cervix: Normal TVUS cervical length today > 3 cm. 4. History of preeclampsia: Normal BP today. Asymptomatic. 5. GBSuria: treat in labor 6. Tobacco use: encourage cessation. Not ready to quit yet. 7. Daily kick counts and PTL precautions reviewed with patient. 8. RTC 2 weeks. Raf Gwyn Zuñiga MD 11/08/2010 1:59 PM * Yunier Schreiber MD - 11/08/2010 1:07 PM CDT MFM attending note. I reviewed history and physical exam with Dr. Zuñiga and Bladimir at the time of the visit. Patient presents a diagnosis of Patient Active Problem List Diagnoses ??? Supervision [...] ??? Carpal tunnel syndrome on left . . Patient is 28w5d Exam and assessment show: Blood pressure 118/70, weight 154 lb (69.854 kg). See ACOG/resident note. Results for orders placed during the hospital encounter of 11/08/10 GLUCOSE PROTEIN KETONE URINE - POINT OF CAR Component Value Range Glucose UA neg Low:Negative Protein UA neg Low:Negative Ketone UA neg Low:Negative QC Verified yes Low:Yes I agree with diagnosis as documented in the attached note. I have added the following diagnoses: None Documented plan of care is appropriate and I agree with the following revisions: None Yunier Schreiber MD documented in this encounter Plan of Treatment Scheduled Orders Name Type Priority Associated Diagnoses Orde r Schedule PROTEIN URINE TIMED QUANTITATIVE Lab Routine h/o Severe pre-eclampsia, antepartum Ordered: 11/08/2010 BIOPHYSICAL PROFILE W NST MATRNL MED Routine HTN (hypertension) Expected: 11/28/2010, Expires: 11/09/2011 documented as of this encounter Procedures Procedure Name Priority Date/Time Associated Diagnosis Comments RPR Today 11/08/2010 1:45 PM CDT CBC W AUTO DIFFERENTIAL Today 11/08/2010 1:45 PM CDT GLUCOSE CHALLENGE Today 11/08/2010 1:4 5 PM CDT TSH Today 11/08/2010 1:45 PM CDT Supervision of other high-risk (HCC) T4 FREE Today 11/08/2010 1:45 PM CDT Supervision of other high-risk (HCC) GLUCOSE PROTEIN KETONE URINE - POINT OF CAR Routine 11/08/2010 12:27 PM CDT documented in this encounter Results * SONOGRAM - COMPLETE (12/28/2010 11:25 AM CDT) Anatomical Region Laterality Modality Other 12/28/2010 11:2 5 AM CDT Narrative 12/28/2010 2:48 PM CDT ? [facility] ? Evaluation and Treatment Unit ?PHONE: ??FAX: Pat. Name: ?LUCIE PARKS Pat. No: ?[id number] Study Date: ?? 12/28/2010 ??11:25am , Age: ? 1980, 30 Pregnancies: ?? 5, Para 0222 LMP: ?Unknown GA by 1st: ?35.9 weeks GA Selected: ??35.9 weeks (From Known E) DEVIN: ?01/26/2011 Referring : KIERA Paralegal Supervisor: ??Nga Phillips RDMS Hist/Ind: ? Hypothyroidism/H/O PTD [...] <Electronic Signature> ??12/28/2010 02:48pm John Garrison MD [facility] ORDERABLE S * SONOGRAM - TRANSVAGINAL (12/07/2010 1:17 PM CDT) Anatomical Region Laterality Modality Other 12/07/2010 1:17 PM CDT Narrative 12/14/2010 12:38 PM CDT ? [facility] ? Evaluation and Treatment Unit ?PHONE: ??FAX: Pat. Name: ?LUCIE PARKS. No: ?[id number] Study Date: ?? 12/14/2010 ??10:36am , Age: ? 1980, 30 Pregnancies: ?? 5, Para 2222 LMP: ?Unknown GA by 1st: ?33w6d GA Selected: ??33w6d (From Known E) DEVIN: ?01/26/2011 Referring : KIERA Paralegal Supervisor: ??Valerie Jackson RN, RDMS Hist/Ind: ? Lupus/ [...] <Electronic Signature> ??12/14/2010 12:38pm John Garrison MD [facility] ORDERABLE S * CREATININE CLEARANCE URINE TIMED (11/30/2010 10:30 AM CDT) Creatinine 0.41 0.5 - 1.3 mg/dl [facility] Creatinine Urine 66.30 mg/dl [facility] Volume 24 Hour Urine 1407 ml/24 Hr [facility] Creatinine 24 Hour Urine 981.2 800 - 1800 mg/24hr [facility] Creatinine Clearance 158 85 - 125 ml/min [facility] URINE SPECIMEN COLLECTION, 24 HOURS / Unknown 11/30/2010 10:30 AM CDT 11/30/2010 11:09 AM CDT John Garrison MD LAB - URINE C HEMISTRY ORDERABLES Performing Organization Address City/State/[facility] Co de Phone Number [facility] [address] [place] [address] * (ABNORMAL) CBC W AUTO DIFFERENTIAL (11/08/2010 1:45 PM CDT) WBC 9.6 4.0 - 10.0 K/CUMM [facility] RBC 3.61(L) 3.80 - 5.80 M/CUMM [facility] Hemoglobin 10.9(L) 12.0 - 16.0 gm/dl [facility] Hematocrit 32.6(L) 37.0 - 47.0 % [facility] MCV 90.3 80.0 - 100.0 fl [facility] MCH 30.2 26.0 - 34.0 pg [facility] MCHC 33.4 31.0 - 37.0 gm/dl [facility] Platelet Count 219 150 - 400 K/CUMM [facility] RDW 13.3 11.5 - 14.5 % [facility] Granulocytes % 66.4 50 - 70 % [facility] Lymphocytes % 24.0 20 - 40 % [facility] Monocytes % 6.6 0 - 12 % [facility] Eosinophils % 2.4 0 - 5 % [facility] Basophils % 0.1 0 - 2 % [facility] Granulocytes Absolute 6.39 2.00 - 7.00 x1000/cmm [facility] Lymphocytes Absolute 2.31 0.80 - 4.00 x1000/cmm [facility] Monocytes Absolute 0.64 0.00 - 1.20 x1000/cmm [facility] Eosinophils Absolute 0.23 0.00 - 0.50 x1000/cmm [facility] Basophils Absolute 0.01 0.00 - 0.20 x1000/cmm [facility] BLOOD SPECIMEN / Unknown 11/08/2010 1:45 PM CDT 11/08/2010 4:23 PM CDT John Garrison MD LAB - HEMATOL OGY ORDERABLES Performing Organization Address City/[facility]/ZIP Co de Phone Number [facility] [address] [place] [phone] * RPR (11/08/2010 1:45 PM CDT) RPR Non-Reacti ve Non Reactive [facility] BLOOD SPECIMEN / Unknown 11/08/2010 1:45 PM CDT 11/08/2010 4:23 PM CDT John Garrison MD LAB - SOFT WORK WRAPPER EXAMINER RY ORDERABLES Performing Organization Address City/[facility] Co de Phone Number [facility] [address] [place] [phone] * TSH (11/08/2010 1:45 PM CDT) TSH 3.01 0.358 - 3.74 uIU/ml [facility] BLOOD SPECIMEN / Unknown 11/08/2010 1:45 PM CDT 11/08/2010 4:22 PM CDT Francheska Bishop MD LAB - CHEMISTRY KENDELL YUO Performing Organization Address City/[facility]/ZIP Co de Phone Number [facility] [address] [place] [phone] * T4 FREE (11/08/2010 1:45 PM CDT) T4 Free 1.15 0.65 - 1.34 ng/dl [facility] BLOOD SPECIMEN / Unknown 11/08/2010 1:45 PM CDT 11/08/2010 4:23 PM CDT Francheska Bishop MD LAB - CHEMISTRY KENDELL YOU Performing Organization Address [facility] Co de Phone Number [facility] [address] [place] [phone] * GLUCOSE CHALLENGE (11/08/2010 1:45 PM CDT) Glucose Challenge 76 mg/dl [facility] Glucose Challenge Time 1345 [facility] BLOOD SPECIMEN / Unknown 11/08/2010 1:45 PM CDT 11/08/2010 4:22 PM CDT John Garrison MD LAB - SOFT WORK WRAPPER EXAMINER RY ORDERABLES Performing Organization Address [facility] Co de Phone Number [facility] [address] [place] [phone] * GLUCOSE PROTEIN KETONE URINE - POINT OF CAR (11/08/2010 12:27 PM CDT) Glucose UA neg Negative [facility] Protein UA neg Negative [facility] Ketone UA neg Negative [facility] QC Verified yes Yes [facility] POC T TESTING Urine specimen (specimen) URINE / Unknown 11/08/2010 12:27 PM CDT Brook Yung MD LAB - P OINT OF CARE ORDERABLES Performing Organization Address [facility] Co de Phone Number [facility] [place] [address] documented in this encounter Visit Diagnoses Diagnosis [...] Unspecified essential hypertension History of delivery, currently ([facility] with history of pre-term labor S/P cone biopsy of cervix Other postprocedural status Hypothyroid Unspecified hypothyroidism Marijuana abuse Cannabis abuse, unspecified Anxiety Anxiety state, unspecified GBS (group B streptococcus) UTI complicating ([facility]) Infections of genitourinary tract in , unspecified as to episode of care Supervision of other high-risk (V23.89) ([facility]) Supervision of other high-risk h/o Severe pre-eclampsia, antepartum Severe pre-eclampsia, antepartum Supervision of high-risk Unspecified high-risk SAB (spontaneous ) ([facility]) Unspecified spontaneous without mention of complication Seizure disorder ([facility]) Unspecified epilepsy without mention of intractable epilepsy [...] Unspecified essential hypertension History of delivery, currently ([facility]) with history of pre-term labor S/P cone biopsy of cervix Other postprocedural status Hypothyroid Unspecified hypothyroidism Marijuana abuse Cannabis abuse, unspecified Anxiety Anxiety state, unspecified GBS (group B streptococcus) UTI complicating ([facility]) Infections of genitourinary tract in , unspecified as to episode of care Supervision of high-risk Unspecified high-risk Lupus (systemic lupus erythematosus) ([facility]) Systemic lupus erythematosus SAB (spontaneous ) ([facility]) Unspecified spontaneous without mention of complication Supervision of high-risk Unspecified high-risk documented in this encounter Care Teams Mud Temperer Relationship Specialty Start Date End Date Clinic, [facility] [address] [place] [address] PCP - General 07/06/10 11/21/20 documented as of this encounter
--- OUTSIDE RECORDS SUMMARY | 2024-04-26 21:20 | XMS_ITS | Encounter Summary ---
Author Organization [facility] Address [address] [place] [address] Care Team Providers Care Clod Puller Name Role Phone Clinic, [facility] Ob/Med Primary Care Provider [phone] Encounter Details Date Type Department Care Team (Latest Contact Info) Description 2010 9:00 AM CDT - 2010 11:59 PM T Hospital Encounter [facility] EVAL/TRTMNT [address] [place] [address] Jefferson Monroe MD [address] [facility] [address] [place] [address] Discharge Disposition: Home or Self [...] Associated Diagnosis Comments SONOGRAM - COMPLETE Routine 2010 1 :20 PM CDT Supervision of high-risk S/p cone biopsy of cervix documented in this encounter Results * SONOGRAM - COMPLETE (2010 1:20 PM CDT) Anatomical Region Laterality Modality Other 2010 1:20 PM CDT Narrative 08/23/2010 11:24 AM CDT ? [facility] ? Evaluation and Treatment Unit ?PHONE: ??FAX: Pat. Name: ?SAHRA MARTINEZ Pat. No: ?[id number] Study Date: ?? 2010 ??1:20pm , Age: ? 1980, 29 Pregnancies: ?? 5, Para 0222 LMP: ?Unknown GA by US: ? 17w0d GA Selected: ??17w0d (From Known E) DEVIN: ?01/26/2011 Referring MD: KIERA Copy Coordinator: ??Nga Phillips RDMS Hist/Ind: ? Anatomic Survey/Hypothyroidism ?H/O PTD x 2/ PreE w/last preg ?H/O Cone Biopsy MEASUREMENTS & AGE ? GROWTH EVALUATION Measurement ??GA ? Range ? Srce %for GA Ratios ----- ---- ------- BPD ??3.7 cm 17w2d (74k2b-09k4r) Hadl BPD 59% FL/BPD 0.63 HC ??13.7 cm 17w1d (65h3t-12q5r) Hadl HC ??55% FL/AC ??0.21 AC ??10.9 cm 16w6d (69k1v-38n5t) Hadl AC ??45% HC/AC ??1.25 (1.08 - 1.27) FL ?? 2.3 cm 17w0d (74a8b-80b3i) Hadl FL ??49% CI ? 0.74 (0.70 - 0.86) HL ?? 2.3 cm 17w0d (77q8h-02q0m) Edmund HL ??49% GA for sonogram 17w0d (33q2i-73b4p) ?? Weight Estimate: based on (HL,BPD,HC,AC,FL) Avg [...] <Electronic Signature> ??08/23/2010 11:20am Shaneka Hernandez MD [facility] ORDERABLES documented in this encounter Visit Diagnoses Diagnosis Supervision of high-risk Unspecified high-risk S/P cone biopsy of cervix Other postprocedural status documented in this encounter Care Teams Clod Puller Relationship Specialty Start Date End Date Clinic, [facility] Ob/Med [address] [place] [address] PCP - General 07/06/10 11/21/20 documented as of this encounter
--- OUTSIDE RECORDS SUMMARY | 2024-04-26 21:20 | XMS_ITS | Encounter Summary ---
Author Organization [facility] Address [address] [place] [address] Care Team Providers Care Bleach Liquor Maker Name Role Phone Clinic, [facility] Ob/Med Primary Care Provider [phone] Encounter Details Date Type Department Care Team (Latest Contact Info) Description 12/07/2010 8:25 AM CDT - 12/07/2010 11:59 PM CDT Hospital Encounter [facility] MATERNAL/ EVALUATION UNIT [address] [facility] [address] [place] [address] Discharge Disposition: Home or Self Care Social [...] Sign Reading Time Taken Comments Blood Pressure 133/81 12/07/2010 9:00 AM CDT Pulse - - Temperature - - Respiratory Rate - - Oxygen Saturation - - Inhaled Oxygen Concentration - - Weight 71.2 kg (157 lb) 12/07/2010 9:00 AM CDT Height - - Body Mass Index - - documented in this encounter Discharge Instructions * Patient Instructions* Elaina Marquez MD - 12/07/2010 11:10 AM CDT Please check blood pressures at home and record them. Please bring your blood pressure cuff to the office next week. documented in this encounter Medications at Time [...] of this encounter Progress Notes * Brenda Blackburn MD - 12/07/2010 10:55 AM CDT 32w 6d 29 Presents for follow up care. Non specific complaints. Denies contractions, VB, GOF. Good FM. BP 133/81 Wt 157 lb (71.215 kg) ABD: gravid, NTP, SF ht 23 weeks SVE: 05/16/-3/firm/post/cephalic EXT: 2+ bilateral reflexes. NTP FHT 140's Problem list: Prior with pre eclampsia: 24 hour urine protein- 153mg/sp Anxiety/Neurosis: Occasional racing thoughts. Able to function with daily activities. Limited social support. Prior with chorioangioma Tobacco dependence: 04/24 PPD. Desires to quit. Rash with the patch. Prior child with deafness Hypothyroid Initially hyper- thyroid 2003 then hypothyroid. Levothyroxine 0.125 mcg daily. Normal TSH/T4 on 11/30/10 CHTN No meds Prior PTD x2 delivery x2 at 33 weeks Not on 17 OHP no symptoms of PTL Cone Biopsy age 17: Pap smear normal in Umbilical hernia - s/p mesh placement GBS urine Asthma controlled: stable no sxs or use of albuterol for 1 month/ albuterol prn Generalized seizure: Last seizure episode in 2006 Sequential Screen- Nuchal translucency wnl. A) Anxiety- stable P) RTC in 1weeks. NST today. GBS today * Yunier Schreiber MD - 12/07/2010 10:55 AM CDT MFM attending note. I reviewed history and physical exam with Dr. blackburn at the time of the visit. Patient [...] ??? Carpal tunnel syndrome on left . Patient is 32w6d Exam and assessment show: Blood pressure 133/81, weight 157 lb (71.215 kg). See ACOG/resident note. Results for orders placed during the hospital encounter of 12/07/10 GLUCOSE PROTEIN KETONE URINE - POINT OF CAR Component Value Range Glucose UA neg Low:Negative Protein UA tr Low:Negative Ketone UA neg Low:Negative QC Verified yes Low:Yes I agree with diagnosis as documented in the attached note. I have added the following diagnoses: None Documented plan of care is appropriate and I agree with the following revisions: None Weekly BPP/DUNIA/NST Check SSA, SSB and anti-DS-DNA Yunier Schreiber MD documented in this encounter Procedure Notes * Brenda Blackburn MD - 12/07/2010 12:13 PM CDTProcedure(s): NONSTRESS TEST Pre-Procedure Diagnose(s): Hypothyroid NST Lucie Parks [id number] Indications: Hypothyroidism 32w6d 30 y.o. G ^[id number] Fetus A: Baseline: 130 beats/minute Variability: moderate Contractions: none Decelerations: none Interpretation: non-stress test (lee): reactive Plan: Continue present management * Yunier Schreiber MD - 12/07/2010 12:13 PM CDT I agree with the interpretation for the attached procedure. Yunier Schreiber MD documented in this encounter Plan of Treatment Scheduled Orders Name Type Priority Associated Diagnoses Orde r Schedule SONOGRAM - COMPLETE MATRNL MED Routine Supervision of high-risk Lupus (systemic lupus erythematosus) (HCC) 1 Occurrences starting 12/07/2010 until 12/08/2011 documented as of this encounter Procedures Procedure Name Priority Date/Time Associated Diagnosis Comments SONOGRAM - TRANSVAGINAL Routine 12/07/2010 1:17 PM CDT SAB (spontaneous ) (HCC) SS-B (SJOGREN'S) ANTIBODY Today 12/07/2010 11:20 AM CDT SS-A (SJOGREN'S) ANTIBODY Today 12/07/2010 11:20 AM CDT DNA ANTIBODY DOUBLE STRANDED Today 12/07/2010 11:20 AM CDT GLUCOSE PROTEIN KETONE URINE - POINT OF CAR Routine 12/07/2010 9:26 AM CDT documented in this encounter Results * NON-STRESS TEST (12/21/2010 11:49 AM CDT) Anatomical Region Laterality Modality Other 12/21/2010 11:4 9 AM CDT Narrative 12/21/2010 1:34 PM CDT ? [facility] ? Evaluation and Treatment Unit ?PHONE: ??FAX: Pat. Name: ?LUCIE PARKS Pat. No: ?[id number] Study Date: ?? 12/21/2010 ??11:49am , Age: ? 1980, 30 Pregnancies: ?? 5, Para 2222 LMP: ?Unknown GA by [facility]: ?34w6d GA by US: ? 34w6d GA Selected: ??34w6d (From First S) DEVIN: ?01/26/2011 Referring : KIERA Wall Attendant: ??Ena Cedeno RDMS Hist/Ind: ? H/O Cone,Lupus,Hypothayroidism, ?H/O PTL/PTD MEASUREMENTS & AGE ? GROWTH EVALUATION Measurement ??GA ? Range ? Srce %for GA Ratios ----- ---- ------- BPD ??8.9 cm 35w6d (35j5q-19q4f) Hadl BPD 64% FL/BPD 0.77 (0.71 - 0.87) HC ??30.9 cm 34w3d (09b4o-40b6j) Hadl HC ??44% FL/AC ??0.22 (0.20 - 0.24) AC ??30.8 cm 34w5d (18y8s-69a0b) Hadl AC ??48% HC/AC ??1.00 (0.94 - 1.13) FL ?? 6.8 cm 35w1d (38r9n-59s4e) Hadl FL ??54% CI ? 0.84 (0.70 - 0.86) HL ?? 5.9 cm 34w0d (23b9e-64h8u) Edmund HL ??36% GA for sonogram 34w6d (63t9n-14e7f) ?? Weight Estimate: based on (HL,BPD,HC,AC,FL) Avg ? Weight: 2545 gm (7976-7589) Hadlo ? : 5lbs, 9oz ? Normal: [...] gestational age. ?? The biophysical profile is 10. IMPRESSION: ?? 1) Lee IUP at 34w6d. 2) Reassuring fluid, Doppler and biophysical assessments 3) Appropriate interval growth. ?? 4 No major malformations are seen today. ?? RECOMMEND: Continue antepartum testing as ordered. Thank you for allowing us the opportunity to care for your patient. ?? Ave Mobley MD <Electronic Signature> ??12/21/2010 01:34pm Elaina Marquez MD [facility] ORDERABLES * SONOGRAM - TRANSVAGINAL (12/07/2010 1:17 PM CDT) Anatomical Region Laterality Modality Other 12/07/2010 1:17 PM CDT Narrative 12/14/2010 12:38 PM CDT ? [facility] ? Evaluation and Treatment Unit ?PHONE: ??FAX: Pat. Name: ?LUCIE PARKS Pat. No: ?[id number] Study Date: ?? 12/14/2010 ??10:36am , Age: ? 1980, 30 Pregnancies: ?? 5, Para 2222 LMP: ?Unknown GA by 1st: ?33w6d GA Selected: ??33w6d (From Known E) DEVIN: ?01/26/2011 Referring MD: KIERA Wall Attendant: ??Valerie Jackson RN, RDMS Hist/Ind: ? Lupus/ [...] <Electronic Signature> ??12/14/2010 12:38pm John Garrison MD [facility] ORDERABLE S * DNA ANTIBODY DOUBLE STRAND (12/07/2010 11:20 AM CDT) [facility] dsDNA Antibody 1.30 SEE BELOW IU [facility] Comment: <25 ? Negative 25-30 ?? Borderline Positive 30-60 ?? Low Positive 60-200 ??Positive >200 ?Strong Positive Comment dsDNA [facility] Comment: ? dsDNA antibodies are screened using an AMY assay. ??Positive ? results are reflexed to titer by IFA. BLOOD SPECIMEN / Unknown 12/07/2010 11:20 AM CDT 12/07/2010 12:58 PM CDT Elania Marquez MD LAB - HEMATOLOGY ORD ERABLES [facility] [address] [place] [address] * SS-B ANTIBODY (12/07/2010 11:20 AM CDT) [facility] SS-B Antibody <0 SEE BELOW EU [facility] Comment: <20 ?? Negative 20-25 Borderline Positive >25 ?? Positive Interpretatoon Autoimmune Antibody [facility] Comment: ? Borderline results have been retested. ??[employer] states ? that if results are still borderline, the test sample has ? no significant antibodies. BLOOD SPECIMEN / Unknown 12/07/2010 11:20 AM CDT 12/07/2010 12:58 PM CDT Elaina Marquez MD LAB - CHEMISTRY KENDELL YOU Performing Organization Address [facility] de Phone Number [facility] [address] [place] [address] * SS-A ANTIBODY (12/07/2010 11:20 AM CDT) SS-A Antibody 0.77 SEE BELOW EU [facility] Comment: <20 ?? Negative 20-25 Borderline Positive >25 ?? Positive Interpretatoon Autoimmune Antibody [facility] Comment: ? Borderline results have been retested. ??[employer] states ? that if results are still borderline, the test sample has ? no significant antibodies. BLOOD SPECIMEN / Unknown 12/07/2010 11:20 AM CDT 12/07/2010 12:58 PM CDT Elaina Marquez MD LAB - CHEMISTRY KENDELL YOU Performing Organization Address [facility] de Phone Number [facility] [address] [place] [address] * GLUCOSE PROTEIN KETONE URINE - POINT OF CAR (12/07/2010 9:26 AM CDT) Glucose UA neg Negative [facility] POCT TESTING Protein UA tr Negative [facility] POCT TESTING Ketone UA neg Negative [facility] POCT TESTING QC Verified yes Yes [facility] POC T TESTING Urine specimen (specimen) URINE / Unknown 12/07/2010 9:26 AM CDT Sabrina Pride MD LAB - POINT OF CARE ORDERABLES Performing Organization Address [facility] de Phone Number [facility] [place] [address] documented in this encounter Visit Diagnoses Diagnosis [...] unspecified GBS (group B streptococcus) UTI complicating ([facility]) Infections of genitourinary tract in , unspecified as to episode of care Supervision of high-risk Unspecified high-risk Lupus (systemic lupus erythematosus) ([facility]) Systemic lupus erythematosus SAB (spontaneous ) ([facility]) Unspecified spontaneous without mention of complication Supervision of high-risk Unspecified high-risk Lupus (systemic lupus erythematosus) ([facility]) Systemic lupus erythematosus documented in this encounter Care Teams Bleach Liquor Maker Relationship Specialty Start Date End Date Clinic, [facility] Ob/Med [address] [place] [address] PCP - General 07/06/10 11/21/20 documented as of this encounter
--- OUTSIDE RECORDS SUMMARY | 2024-04-26 21:20 | XMS_ITS | Encounter Summary ---
Author Organization [facility] Address [address] [place] [address] Care Team Providers Care Saw Cleaner Name Role Phone Clinic, [facility] Ob/Med Primary Care Provider [phone] Encounter Details Date Type Department Care Team (Latest Contact Info) Description 12/14/2010 9:57 AM CDT - 12/14/2010 11:59 PM CDT Hospital Encounter [facility] MATERNAL/ EVALUATION UNIT [address] [facility] [facility] [place] [address] Discharge Disposition: Home or Self Care Social [...] Sign Reading Time Taken Comments Blood Pressure 116/74 12/14/2010 11:00 AM CDT Pulse - - Temperature - - Respiratory Rate - - Oxygen Saturation - - Inhaled Oxygen Concentration - - Weight 70.8 kg (156 lb) 12/14/2010 11:00 AM CDT Height - - Body [...] as of this encounter Progress Notes * Yola Pantoja MD - 12/14/2010 1:57 PM CDT Resident 3 OB Follow Up Note. S:Patient here for f/u OB. Complains of daily contractions, not sure how often but not several times per hour. No LOF or VB. Some back pain as well. O: Vitals: 12/14/10 1100 BP: 116/74 Weight: 156 lb (70.761 kg) See flowsheet for details. S=D FHT + Cervix 50/high (unchanged from prior exam). Component Name 12/14/10 1128 PROTEINUA tr GLUCOSEUA neg KETONEUA neg A/P: [...] ?triploidy with Dr. Alejandro, D&C done at [facility]; the other due to low [...] repair 07/06/[address] [place] at [place] ??? Tobacco use complicating or childbirth [...] PCN in labor, d/w patient today. Reviewed PTL precautions with patient; no signs of PTL now. Will check urine culture today as well to r/o UTI. Return to clinic in one week. Yola Pantoja MD 12/14/2010 2:01 PM * Ave Mobley MD - 12/14/2010 1:57 PM CDT MFM Attending OB Follow up visit Sahra Parks is a 30 y.o. at 33w6d. I discussed her diagnosis, assessment and plan with Dr. Pantoja at the time of her visit. She is followed in [facility] for: Patient Active Problem List Diagnoses ??? Supervision [...] ??? Carpal tunnel syndrome on left BP 116/74 Wt 156 lb (70.761 kg) I agree with the assessment and plan as documented. I addend as follows: Diagnosis of SLE is very unclear Seizures apparently an inactive problem at this time Ave Mobley MD documented in this encounter Procedure Notes * Valerie Jackson RN - 12/14/2010 10:30 AM CDT Patient was seen on 12/14/2010 for ultrasound order# [id number] documented in this encounter Plan of Treatment Scheduled Orders Name Type Priority Associated Diagnoses Orde r Schedule CULTURE URINE Microbiology Routine ONCE for 1 Occurrences starting 12/14/2010 until 12/14/2010 documented as of this encounter Procedures Procedure Name Priority Date/Time Associated Diagnosis Comments GLUCOSE PROTEIN KETONE URINE - POINT OF CAR Routine 12/14/2010 11:28 AM CDT documented in this encounter Results * GLUCOSE PROTEIN KETONE URINE - POINT OF CAR (12/14/2010 11:28 AM CDT) Glucose UA neg Negative [facility] POCT TESTING Protein UA tr Negative [facility] POCT TESTING Ketone UA neg Negative [facility] POCT TESTING QC Verified yes Yes [facility] POC T TESTING Urine specimen (specimen) URINE / Unknown 12/14/2010 11:28 AM CDT Gomez Germain MD LAB - POINT OF CARE ORDERABLES [place] [address] documented in this encounter Visit Diagnoses Diagnosis HTN (hypertension) Unspecified essential hypertension Seizure disorder (HCC) Unspecified epilepsy without mention [...] care documented in this encounter Care Teams Saw Cleaner Relationship Specialty Start Date End Date Clinic, [facility] Ob/Med [address] [place], [place] [id number] PCP - General 07/06/10 11/21/20 documented as of this encounter
--- OUTSIDE RECORDS SUMMARY | 2024-04-26 21:20 | XMS_ITS | Encounter Summary ---
Author Organization [facility] Address [address] [place] [address] Care Team Providers Care Job Development Specialist Name Role Phone Clinic, [facility] Ob/Med Primary Care Provider [phone] Encounter Details Date Type Department Care Team (Latest Contact Info) Description 12/28/2010 9:30 AM CDT - 12/28/2010 10:29 AM T Hospital Encounter [facility] EVAL/TRTMNT [address] [place] [address] Jefferson Monroe MD [address] [facility] [address] [place] [address] Discharge Disposition: Home or Self [...] 08/03/2010 11/22/2020 documented as of this encounter Procedure Notes * Valerie Jackson RN - 12/28/2010 11:24 AM CDT Patient was seen on 12/28/2010 for ultrasound order# Order SONOGRAM - COMPLETE [MFM11 (CPT??)] (Order [id number]) Charly Sahra Rosamaria #[id number] (Acct: N/A) (30 y.o. F) Order History Inpatient Date/Time Action Taken User Additional Information 12/28/10 1122 Release Valerie Jackson RN From Order: [id number] Order Information Date Released By Authorizing Department 12/28/2010 YANET Stratton MD [facility] Eval/Trmtnt Comments Please preform CL as well Order Providers Authorizing Encounter John Garrison [facility] Evaluation And Testing Unit Original Order Ordered On Ordered By SatNov 08, 2010 1:59 PM John Garrison MD Associated Diagnoses SUPERVISION OF HIGH-RISK Order Questions Question Answer Comment Services Ordered? Growth Where will this test be performed? In MFM or FETU Dept Additional Information Associated Reports View Parent Encounter Priority and Order Details [id number]) documented in this encounter Plan of Treatment Not on file documented as of this encounter Procedures Procedure Name Priority Date/Time Associated Diagnosis Comments SONOGRAM - COMPLETE Routine 12/28/2010 1 1:25 AM CDT Supervision of high-risk documented in this encounter Results * SONOGRAM - COMPLETE (12/28/2010 11:25 AM CDT) Anatomical Region Laterality Modality Other 12/28/2010 11:2 5 AM CDT Narrative 12/28/2010 2:48 PM CDT ? [facility] ? Evaluation and Treatment Unit ?PHONE: ??FAX: Pat. Name: ?SAHRA MARTINEZ Pat. No: ?[id number] Study Date: ?? 12/28/2010 ??11:25am , Age: ? 1980, 30 Pregnancies: ?? 5, Para 0222 LMP: ?Unknown GA by 1st: ?35.9 weeks GA Selected: ??35.9 weeks (From Known E) DEVIN: ?01/26/2011 Referring : KIERA Theater Projectionist: ??Nga Phillips RDMS Hist/Ind: ? Hypothyroidism/H/O PTD [...] <Electronic Signature> ??12/28/2010 02:48pm John Garrison MD [facility] ORDERABLE S documented in this encounter Visit Diagnoses Diagnosis Supervision of high-risk Unspecified high-risk documented in this encounter Care Teams Job Development Specialist Relationship Specialty Start Date End Date Clinic, [facility] Ob/Med [address] [place] [address] PCP - General 07/06/10 11/21/20 documented as of this encounter
--- OUTSIDE RECORDS SUMMARY | 2024-04-26 21:20 | XMS_ITS | Encounter Summary ---
Author Organization [facility] Address [address] [facility] [place] [address] Care Team Providers Care Button Spindler Name Role Phone Clinic, [facility] Ob/Med Primary Care Provider Encounter Details Date Type Department Care Team (Latest Contact Info) Description 01/08/2011 12:01 AM CDT - 01/08/2011 11:59 PM T Hospital Encounter [facility] MATERNAL/ EVALUATION UNIT [address] [place] [address] Jefferson Monroe MD [address] [place] [address] Clinic Discharge Disposition: Home or Self Care [...] Diagnoses Diagnosis Supervision of other high-risk (V23.89) ([facility]) Supervision of other high-risk documented in this encounter Care Teams Button Spindler Relationship Specialty Start Date End Date [facility], [facility] Ob/Med [address] [place] [address] PCP - General 07/06/10 11/21/20 documented as of this encounter
--- OUTSIDE RECORDS SUMMARY | 2024-04-26 21:20 | XMS_ITS | Encounter Summary ---
Author Organization [facility] Address [address] [facility] [place] [address] Care Team Providers Care Procedure Writer Name Role Phone Clinic, [facility] Ob/Med Primary Care Provider [phone] Encounter Details Date Type Department Care Team (Latest Contact Info) Description 10/07/2010 12:01 AM CDT - 10/07/2010 11:59 PM T Hospital Encounter [facility] MATERNAL/ EVALUATION UNIT [address] [place] [address] Jefferson Monroe MD [address] [place] [address] Clinic Discharge Disposition: Home or Self Care [...] documented as of this encounter Results * T4 FREE (11/08/2010 1:45 PM CDT) T4 Free 1.15 0.65 - 1.34 ng/dl [facility] BLOOD SPECIMEN / Unknown 11/08/2010 1:45 PM CDT 11/08/2010 4:23 PM CDT Francheska Bishop MD LAB - CHEMISTRY KENDELL YOU Performing Organization Address City/[facility] Co de Phone Number [facility] [address] [place] [phone] * TSH (11/08/2010 1:45 PM CDT) TSH 3.01 0.358 - 3.74 uIU/ml [facility] BLOOD SPECIMEN / Unknown 11/08/2010 1:45 PM CDT 11/08/2010 4:22 PM CDT Francheska Bishop MD LAB - CHEMISTRY KENDELL YOU Performing Organization Address City/[facility]/ZIP Co de Phone Number [facility] [address] [place] [address] documented in this encounter Visit Diagnoses Diagnosis Supervision of other high-risk (V23.89) ([facility]) Supervision of other high-risk documented in this encounter Care Teams Procedure Writer Relationship Specialty Start Date End Date Clinic, [facility] Ob/Med [address] [place] [address] PCP - General 07/06/10 11/21/20 documented as of this encounter
--- OUTSIDE RECORDS SUMMARY | 2024-04-26 21:20 | XMS_ITS | Encounter Summary ---
Author Organization [facility] Address [address] [place] [address] Care Team Providers Care Die Attaching Machine Tender Name Role Phone Clinic, [facility] Ob/Med Primary Care Provider [phone] Encounter Details Date Type Department Care Team (Latest Contact Info) Description 11/30/2010 8:20 AM CDT - 11/30/2010 11:59 PM CDT Hospital Encounter [facility] MATERNAL/ EVALUATION UNIT [address] [place] [address] Discharge Disposition: Home or Self Care Social [...] Sign Reading Time Taken Comments Blood Pressure 118/80 11/30/2010 10:13 AM CDT Pulse - - Temperature - - Respiratory Rate - - Oxygen Saturation - - Inhaled Oxygen Concentration - - Weight 71.2 kg (157 lb) 11/30/2010 9:00 AM CDT Height - - Body [...] as of this encounter Progress Notes * Ave Mobley MD - 11/30/2010 9:33 AM CDT R1 High Risk Clinic Return Visit 11/30/2010 S: Sahra Parks is a 30 y.o. @ 31w6d Today she notes that she just doesn't feel right, I know something is wrong. Reports swelling in hands, feet. Has been taking Tylenol for headaches daily, which relieves them partially. Reports round ligament pain and back pain, denies dysuria, CVA nontender. Denies CTX, LOF, VB; +FM Her is c/b: Patient Active Problem List Diagnoses Date Noted ??? Seizure disorder 09/14/2010 No medications ??? Carpal tunnel syndrome on left 09/14/2010 Transient, intermittent and more with activity. Consider braces if worsens ??? SAB (spontaneous ) 07/06/2010 H/o 2 sabs (one ?triploidy with Dr. lAejandro, D&C done at [facility]; the other due to low hormone so [...] repair 07/06/[address] Flynn at [facility] ??? Tobacco use complicating or childbirth [...] 3.7 cm ??? HYPOTHYROID 06/22/2010 Component Name 11/08/10 1345 09/14/10 1135 08/03/10 1325 T4FREE 1.15 1.27 1.32 Component Name 11/08/10 1345 10/26/10 1230 09/14/10 1135 TSH 3.01 2.57 2.771 ??? Marijuana abuse 06/22/2010 UDS positive for MJ on 07/06/10 ??? Anxiety 06/22/2010 And neurosis ??? GBS (group B streptococcus) UTI complicating 06/22/2010 O: Vitals: 11/30/10 0900 BP: 134/82 Weight: 157 lb (71.215 kg) FH 30 FHT 150s Component Name 11/30/10 0901 PROTEINUA tr GLUCOSEUA neg KETONEUA neg A/P: Sahra Parks is a 30 y.o. at 31w6d 1. Hypothyroid- 1. 7 TSH 3.01, fT4 1.15 2. Taking Levo 0.125 mcg 2. cHTN (?) 1. Reports taking two antihypertensives after last (preeclamptic) for 3months 2. Start weekly BPP/NST next week 3. Hx of PreE- 1. 24 hour urine turned in today 2. Reports GREEN, floaters in vision. Denies SOB/CP, RUQ pain 3. Reports swelling in hands, legs 4. Will draw PIH labs today, as well as TFTs 5. Will get NST now 4. [facility]one Bx of Cervix 1. Neg pap this 5. Hx of PTD 1. 36 wk delivery, refused 17-OHP this 6. Hx of SAB- took hormones earlier this 7. Tob- encouraged cessation 1. Has tried patch previously without success, causes rash 8. Seziure d/o-stable, none for 3 years 9. Carpel tunnel syndrome 1. Splint ordered at last visit 10. GBS urine culture this 1. Neg culture 09/14 11. U/S 11/08- 1341 g (55%), AC 40%, CL 3.7 12. RTC in 1 week D/W Dr Wandy Álvarez MD 11/30/2010 9:33 AM MFM fellow note: I have interviewed and examined the patient, and discussed the assessment and plan of care with Daily Álvarez. I agree with the findings and plan of care as outlined in the residents notes. My findings include: 31w 6d 29 Followed at the [facility] for ?CHTN/Hypothyroidism which is stable. Today complaints of a unilateral leftfronto temporal 3/10 throbbing headache without radiation. BP normal. Doubt seizure like aura. No FND. O) BP 118/80 Wt 157 lb (71.215 kg) ABD: gravid, NTP EXT: 2+ reflexes A) Left frontal headache-probably tension headache. P) Excedrin tension headache or fioricet OTC Will check HELLP labs to r/o superimposed pre eclampsia. Recheck TSH Check random serum glucose. NST today and weekly thereafter. Ultrasound for growth in 2 weeks. Brenda Saba MD 11/30/2010 10:55 AM MFM note HROB Visit I discussed the findings, assessment and plan with Dr. Saba in clinic on 11/30/2010. She is now 31w6d Patient Active Problem List Diagnoses ??? Supervision [...] ??? Carpal tunnel syndrome on left BP 118/80 Wt 157 lb (71.215 kg) I agree with her findings, assessment, and plan as noted. I amend the discussion as follows: Agree with need for NSTs given history of chronic hypertension. Issue of suspicion for SLE needs to be resolved by housekeeper caregiver. Ave Mobley MD documented in this encounter Procedure Notes * Ave Mobley MD - 11/30/2010 12:35 PM CDTProcedure(s): NONSTRESS TEST Non-Stress Test (NST) Sahra Parks [id number] Indications: chronic hypertension, preeclampsia, labor and pprom Interpretation: Fetus A: Baseline: 144 beats/minute reactive Contractions: none, irritable Decelerations: none Recommendations: Continue monitoring as scheduled. Ave Mobley MD documented in this encounter Plan of Treatment Not on file documented as of this encounter Procedures Procedure Name Priority Date/Time Associated Diagnosis Comments URIC ACID BLOOD Today 11/30/2010 10:30 AM CDT CBC W AUTO DIFFERENTIAL Today 11/30/2010 10:30 AM CDT COMPREHENSIVE METABOLIC PANEL Today 11/30/2010 10:30 AM CDT PROTEIN URINE TIMED QUANTITATIVE Today 11/30/2010 10:30 AM CDT HTN (hypertension) h/o Severe pre-eclampsia, antepartum LDH BLOOD Today 11/30/2010 10:30 AM CDT CREATININE CLEARANCE URINE TIMED + BLOOD Today 11/30/2010 10:30 AM CDT h/o Severe pre-eclampsia, antepartum TSH Add on 11/30/2010 10:30 AM CDT T4 FREE Add on 11/30/2010 10:30 AM CDT GLUCOSE PROTEIN KETONE URINE - POINT OF CAR Routine 11/30/2010 9:01 AM CDT documented in this encounter Results * TSH (11/30/2010 10:30 AM CDT) TSH 1.90 0.358 - 3.74 uIU/ml [facility] BLOOD SPECIMEN / Unknown 11/30/2010 10:30 AM CDT 11/30/2010 11:38 AM CDT Sabrina Pride MD LAB - CHEMISTR Y ORDERABLES Performing Organization Address [facility] Co de Phone Number [facility] [address] [place] [address] * T4 FREE (11/30/2010 10:30 AM CDT) T4 Free 1.22 0.65 - 1.34 ng/dl [facility] BLOOD SPECIMEN / Unknown 11/30/2010 10:30 AM CDT 11/30/2010 11:38 AM CDT Sabrina Pride MD LAB - CHEMISTR Y ORDERABLES Performing Organization Address [facility] Co de Phone Number [facility] [address] [place] [phone] * URIC ACID BLOOD (11/30/2010 10:30 AM CDT) Uric Acid 3.9 3.0 - 8.5 mg/dl [facility] BLOOD SPECIMEN / Unknown 11/30/2010 10:30 AM CDT 11/30/2010 11:08 AM CDT Sabrina Pride MD LAB - CHEMISTR Y ORDERABLES [facility] [address] [place] [address] * LDH BLOOD (11/30/2010 10:30 AM CDT) LDH 127 105 - 333 U/L [facility] BLOOD SPECIMEN / Unknown 11/30/2010 10:30 AM CDT 11/30/2010 11:08 AM CDT Sabrina Pride MD LAB - CHEMISTR Y ORDERABLES Performing Organization Address City/[facility]/ZIP Co de Phone Number [facility] [address] [place] [address] * (ABNORMAL) COMPREHENSIVE METABOLIC PANEL (11/30/2010 10:30 AM CDT) Sodium 139 136 - 145 mmol/L [facility] Potassium 4.1 3.5 - 5.1 mmol/L [facility] Chloride 107 98 - 107 mmol/L [facility] BUN 8 7 - 21.0 mg/dl [facility] Creatinine 0.44(L) 0.5 - 1.3 mg/dl [facility] Glucose 64(L) 65 - 105 mg/dl [facility] Calcium 8.5 8.5 - 10.1 mg/dl [facility] Alkaline Phosphatase 76 38 - 126 U/L [facility] AST 8 5.0 - 40 U/L [facility] Bilirubin Total 0.2 0.2 - 1.0 mg/dl [facility] Protein Total 5.8(L) 6.4 - 8.2 gm/dl [facility] Albumin 2.5(L) 3.4 - 5.0 gm/dl [facility] CO2 23 22 - 30 mmol/L [facility] ALT 15 12.0 - 78.0 U/L [facility] eGFR by MDRD >60 >60 mL/min/1.7 3m2 [facility] Comment eGFR [facility] Comment: ? The eGFR does not apply to patients who are younger than ? 18 or older than 70. BLOOD SPECIMEN / Unknown 11/30/2010 10:30 AM CDT 11/30/2010 11:08 AM CDT Sabrina Pride MD LAB - CHEMISTR Y ORDERABLES Performing Organization Address City/[facility]/ZIP Co de Phone Number [facility] [address] [place] [address] * (ABNORMAL) CBC W AUTO DIFFERENTIAL (11/30/2010 10:30 AM CDT) WBC 8.8 4.0 - 10.0 K/CUMM [facility] RBC 3.47(L) 3.80 - 5.80 M/CUMM [facility] Hemoglobin 10.6(L) 12.0 - 16.0 gm/dl [facility] Hematocrit 31.1(L) 37.0 - 47.0 % [facility] MCV 89.6 80.0 - 100.0 fl [facility] MCH 30.5 26.0 - 34.0 pg [facility] MCHC 34.1 31.0 - 37.0 gm/dl [facility] Platelet Count 179 150 - 400 K/CUMM [facility] RDW 13.4 11.5 - 14.5 % [facility] Granulocytes % 61.1 50 - 70 % [facility] Lymphocytes % 25.0 20 - 40 % [facility] Monocytes % 9.7 0 - 12 % [facility] Eosinophils % 3.0 0 - 5 % [facility] Basophils % 0.3 0 - 2 % [facility] Granulocytes Absolute 5.35 2.00 - 7.00 x1000/cmm [facility] Lymphocytes Absolute 2.19 0.80 - 4.00 x1000/cmm [facility] Monocytes Absolute 0.85 0.00 - 1.20 x1000/cmm [facility] Eosinophils Absolute 0.26 0.00 - 0.50 x1000/cmm [facility] Basophils Absolute 0.03 0.00 - 0.20 x1000/cmm [facility] BLOOD SPECIMEN / Unknown 11/30/2010 10:30 AM CDT 11/30/2010 11:08 AM CDT Sabrina Pride MD LAB - HEMATOLO GY ORDERABLES Performing Organization Address City/[facility] Co de Phone Number [facility] [address] [place] [address] * PROTEIN URINE TIMED QUANTITATIVE (11/30/2010 10:30 AM CDT) Volume 24 Hour Urine 1480 ml [facility] Protein 24 Hour Urine 153.9 42 - 225 mg/24hr [facility] URINE SPECIMEN COLLECTION, 24 HOURS / Unknown 11/30/2010 10:30 AM CDT 11/30/2010 11:16 AM CDT Roberto Serrano MD LAB - URINE CHEMISTR Y ORDERABLES Performing Organization Address [facility] Co de Phone Number [facility] [address] [place] [address] * CREATININE CLEARANCE URINE TIMED (11/30/2010 10:30 AM CDT) Creatinine 0.41 0.5 - 1.3 mg/dl [facility] Creatinine Urine 66.30 mg/dl [facility] Volume 24 Hour Urine 1407 ml/24 Hr [facility] Creatinine 24 Hour Urine 981.2 800 - 1800 mg/24hr [facility] Creatinine Clearance 158 85 - 125 ml/min [facility] URINE SPECIMEN COLLECTION, 24 HOURS / Unknown 11/30/2010 10:30 AM CDT 11/30/2010 11:09 AM CDT John Garrison MD LAB - URINE C HEMISTRY ORDERABLES Performing Organization Address [facility] Co de Phone Number [facility] [address] [place] [address] * GLUCOSE PROTEIN KETONE URINE - POINT OF CAR (11/30/2010 9:01 AM CDT) Glucose UA neg Negative [facility] Protein UA tr Negative [facility] Ketone UA neg Negative [facility] QC Verified yes Yes [facility] POC T TESTING Urine specimen (specimen) URINE / Unknown 11/30/2010 9:01 AM CDT Natali Chairez MD LAB - POINT OF CARE ORDERABLES Performing Organization Address [facility] Co de Phone Number [facility] [place] [address] documented in this encounter Visit Diagnoses Diagnosis h/o Severe pre-eclampsia, antepartum Severe pre-eclampsia, antepartum HTN (hypertension) Unspecified essential hypertension Seizure disorder [...] care documented in this encounter Care Teams Die Attaching Machine Tender Relationship Specialty Start Date End Date Clinic, [facility] [address] [place] [address] PCP - General 07/06/10 11/21/20 documented as of this encounter
--- OUTSIDE RECORDS SUMMARY | 2024-04-26 21:20 | XMS_ITS | Encounter Summary ---
Author Organization [facility] Address [address] [place] [address] Care Team Providers Care Steam Turbine Assembler Name Role Phone Clinic, [facility] Ob/Med Primary Care Provider [phone] Encounter Details Date Type Department Care Team (Latest Contact Info) Description 01/11/2011 8:00 AM CDT - 01/11/2011 10:20 AM T Hospital Encounter [facility] EVAL/TRTMNT [address] [place] [address] Discharge Disposition: Home or Self Care Social [...] Procedure Name Priority Date/Time Associated Diagnosis Comments LS RATIO AMNIOTIC FLUID STAT 01/11/2011 9:30 AM CDT LUNG MATURITY STAT 01/11/2011 9 :30 AM CDT AMNIOCENTESIS W US GUIDANCE- MATURITY Routine 01/11/2011 9:10 AM CDT Supervision of high-risk Lupus (systemic lupus erythematosus) (HCC) documented in this encounter Results * LS RATIO FLUID (01/11/2011 9:30 AM CDT) L/S Ratio 3.5 SEE BELOW [facility] Comment: Immature <=1.5 Transitional 1.6-1.9 Mature >=2.0 Color Fluid Pale Yellow [facility] Character Amnio Slightly Cloudy [facility] Gestational Age -unknown [facility] Volume Amnio 10 ml [facility] Interpretation L/S Ratio [facility] Comment: PLEASE NOTE - L/S [...] MD LAB - BODY FLU ID ORDERABLES [facility] [id number] [place] [address] * LUNG MATURITY (01/11/2011 9:30 AM CDT) FLM 47.7 SEE BELOW mg/g [facility] Comment: See Interpretation for Normals Color Fluid Pale Yellow [facility] Character Amnio Slightly Cloudy [facility] Gestational Age -unknown [facility] Volume Amnio 10 ml [facility] Interpretation [facility] Comment: ?FLM ? Immature ......... <= 39 mg/g ? Mature ......... >= 55 mg/g Results between 40 and 54 cannot be declared mature or immature and should be evaluated with caution. AMNIOTIC FLUID SPECIMEN / Unknown 01/11/2011 9:30 AM CDT 01/11/2011 10:50 AM CDT Violeta Brooks MD LAB - BODY FLU ID ORDERABLES Performing Organization Address City/State/[facility] Co de Phone Number [facility] [address] [place] [address] * AMNIOCENTESIS W US GUIDANCE- MATURITY (01/11/2011 9:10 AM CDT) Anatomical Region Laterality Modality Other 01/11/2011 9:10 AM CDT Narrative 01/11/2011 1:26 PM CDT ? [facility] ? Evaluation and Treatment Unit ?PHONE: ??FAX: Pat. Name: ?SAHRA MARTINEZ. No: ?[id number] Study Date: ?? 01/11/2011 ??9:10am , Age: ? 1980, 30 Pregnancies: ?? 5, Para 2222 LMP: ?Unknown GA by 1st: ?37w6d GA Selected: ??37w6d (From Known E) DEVIN: ?01/26/2011 Referring : KIERA It Operations Specialist: ??Nga Phillips RDMS Hist/Ind: ? Lupus/CHTN/Unknown LMP [...] <Electronic Signature> ??01/11/2011 01:26pm Brook Velasco MD [facility] ORDERABLES documented in this encounter Visit Diagnoses Diagnosis Supervision of high-risk Unspecified high-risk Lupus (systemic lupus erythematosus) (HCC) Systemic lupus erythematosus documented in this encounter Care Teams Steam Turbine Assembler Relationship Specialty Start Date End Date [facility], [facility]/Med [address] [place] [address] PCP - General 07/06/10 11/21/20 documented as of this encounter
--- OUTSIDE RECORDS SUMMARY | 2024-04-26 21:20 | XMS_ITS | Encounter Summary ---
Author Organization [facility] Address [address] [place] [address] Care Team Providers Care Chiropractor Sole Practitioner Name Role Phone Clinic, [facility] Ob/Med Primary Care Provider [phone] Encounter Details Date Type Department Care Team (Latest Contact Info) Description 10/26/2010 10:30 AM CDT - 10/26/2010 11:59 PM CDT Hospital Encounter [facility] MATERNAL/ EVALUATION UNIT [address] [place] [address] Discharge Disposition: Home or Self Care Social [...] Sign Reading Time Taken Comments Blood Pressure 123/72 10/26/2010 10:00 AM CDT Pulse - - Temperature - - Respiratory Rate - - Oxygen Saturation - - Inhaled Oxygen Concentration - - Weight 68 kg (150 lb) 10/26/2010 10:00 AM CDT Height - - Body Mass [...] Progress Notes * Brenda Saba MD - 10/26/2010 6:29 PM CDTQuick Note: normal * Brenda Saba MD - 10/26/2010 12:00 PM CDT 26w 6d 29 Presents for follow up care. No acute concerns. Denies contractions, VB, GOF. Good FM. BP 123/72 Wt 150 lb (68.04 kg) ABD: gravid, NTP, SF ht 23 weeks EXT: 2+ bilateral reflexes. NTP FHT 140's Problem list: Prior with pre eclampsia 24 hour urine protein- Anxiety/Neurosis Occasional racing thoughts. Able to function with daily activities. Limited social support. Prior with chorioangioma Tobacco dependence 1/3 PPD. Desires to quit. Rash with the patch. Prior child with deafness Hypothyroid Initially hyper- thyroid 2003 then hypothyroid. Levothyroxine 0.125 mcg daily CHTN No meds Prior PTD x2 delivery x2 at 33 weeks Not on 17 OHP no symptoms of PTL [facility] Biopsy age 17 Pap smear normal in Umbilical hernia - s/p mesh placement GBS urine Asthma controlled stable no sxs or use of albuterol for 1 month albuterol prn Generalized seizure Last seizure episode in 2006 Sequential Screen- Nuchal translucency wnl. A) Hypothyroidism- stable Size<Dates P) RTC in 2 weeks. Glucola in 2 weeks. Ultrasound for growth discrepancy in 1 week. * Jefferson Monroe MD - 10/26/2010 12:00 PM CDT MFM I have reviewed Sahra Parks with Dr. Saba. I agree with the above assessment, findings, and plans. I have the following additions: None Jefferson Monroe MD documented in this encounter Plan of Treatment Not on file documented as of this encounter Procedures Procedure Name Priority Date/Time Associated Diagnosis Comments POTASSIUM BLOOD Today 10/26/2010 12:30 PM CDT TSH Today 10/26/2010 12:30 PM CDT Supervision of high-risk Hypothyroid GLUCOSE PROTEIN KETONE URINE - POINT OF CAR Routine 10/26/2010 10:55 AM CDT documented in this encounter Results * SONOGRAM - COMPLETE (11/08/2010 10:25 AM CDT) Anatomical Region Laterality Modality Other 11/08/2010 10:2 5 AM CDT Narrative 11/08/2010 3:05 PM CDT ? [facility] ? Evaluation and Treatment Unit ?PHONE: ??FAX: Pat. Name: ?SAHRA PARKS. No: ?[id number] Study Date: ?? 11/08/2010 ??10:25am , Age: ? 1980, 30 Pregnancies: ?? 5, Para 0222 LMP: ?Unknown GA by 1st: ?28w5d GA by US: ? 29w3d GA Selected: ??28w5d (From Known E) DEVIN: ?01/26/2011 Referring : KIERA Scientific Diver: ??Jasmina Parsons RDMS Hist/Ind: ? Hypothyroidism/ H/O PTD x 2 ?PreE w/last preg/ H/O [facility] Biopsy MEASUREMENTS & AGE ? GROWTH EVALUATION Measurement ??GA ? Range ? Srce %for GA Ratios ----- ---- ------- BPD ??7.1 cm 28w4d (77c7x-45n8m) Hadl BPD 46% FL/BPD 0.83 (0.71 - 0.87) HC ??26.4 cm 28w5d (81h0k-55j8q) Hadl HC ??51% FL/AC ??0.25 (0.20 - 0.24* AC ??23.9 cm 28w1d (08t2o-57z6b) Hadl AC ??40% HC/AC ??1.11 (0.99 - 1.18) FL ?? 5.9 cm 30w5d (12z4j-17x0x) Hadl FL ??80% CI ? 0.74 (0.70 - 0.86) HL ?? 5.3 cm 31w1d (10k9v-68w6n) Edmund HL ??89% GA for sonogram 29w3d (46a4p-02k5s) ?? Weight Estimate: based on (HL,BPD,HC,AC,FL) Avg ? Weight: 1341 gm (3818-5195) Hadlo ? : 2lbs, 15oz ? Normal: [...] Miller MD <Electronic Signature> ??11/08/2010 03:04pm Raf Zuñiga MD [facility] ORDERABLES * POTASSIUM BLOOD (10/26/2010 12:30 PM CDT) Potassium 4.1 3.5 - 5.1 mmol/L [facility] BLOOD SPECIMEN / Unknown 10/26/2010 12:30 PM CDT 10/26/2010 2:32 PM CDT John Garrison MD LAB - WINDOWS PHONE DEVELOPER ORDERABLES Performing Organization Address [facility]/ZIP Co de Phone Number [facility] [address] [place] [phone] * TSH (10/26/2010 12:30 PM CDT) TSH 2.57 0.358 - 3.74 uIU/ml [facility] BLOOD SPECIMEN / Unknown 10/26/2010 12:30 PM CDT 10/26/2010 2:32 PM CDT Brenda Saba MD LAB - CHEMISTRY KENDELL YOU Performing Organization Address [facility] Co de Phone Number [facility] [address] [place] [phone] * GLUCOSE PROTEIN KETONE URINE - POINT OF CAR (10/26/2010 10:55 AM CDT) Glucose UA neg Negative [facility] Protein UA tr Negative [facility] Ketone UA neg Negative [facility] QC Verified yes Yes [facility] POC T TESTING Urine specimen (specimen) URINE / Unknown 10/26/2010 10:55 AM CDT Yola Pantoja MD LAB - POINT OF CARE ORDERABLES [facility] [place] [address] documented in this encounter Visit Diagnoses Diagnosis Supervision of high-risk Unspecified high-risk Hypothyroid Unspecified hypothyroidism Tobacco use complicating or childbirth Tobacco use disorder complicating , childbirth, or the puerperium, unspecified as to episode of care or not applicable Supervision of high-risk Unspecified high-risk Tobacco use complicating or childbirth Tobacco use disorder complicating , childbirth, or the puerperium, unspecified as to episode of care or not applicable documented in this encounter Care Teams Chiropractor Sole Practitioner Relationship Specialty Start Date End Date Clinic, [facility] Ob/Med [address] [place] [address] PCP - General 07/06/10 11/21/20 documented as of this encounter
--- OUTSIDE RECORDS SUMMARY | 2024-04-26 21:20 | XMS_ITS | Encounter Summary ---
Author Organization [facility] Address [address] [place] [address] Care Team Providers Care Travel Physical Therapist Name Role Phone Clinic, [facility] Primary Care Provider [phone] Reason for Visit * Reason Onset Date Comments Hair Loss 11/02/2010 Encounter Details Date Type Department Care Team (Late st Contact Info) Description 11/02/2010 Telephone [facility] MATERNAL/ EVALUATION UNIT [address] [place] [address] Amanda Khan RN Hair Loss Social History Tobacco Use Types Packs/Day Years [...] encounter Miscellaneous Notes * Telephone Encounter - Amanda Khan RN - 11/02/2010 1:36 PM CDT Pt called in reporting significant hair loss over the last several months. Asking if thyroid test were OK. Reports handful of hair come out every time I wash it. If this keeps up, I'll be bald in 3 months! Thyroid levels WNL. Report to Dr. Bishop. Will repeat thyroid level at next appt. On 11/08/10 Asking if supplements or vitamins would help. Encouraged not to take anything unless OK'd by MD because of . States understanding. documented in this encounter Plan of Treatment Not on file documented as of this encounter Visit Diagnoses Not on filedocumented in this encounter Care Teams Travel Physical Therapist Relationship Specialty Start Date End Date Clinic, [facility] [address] [place] [address] PCP - General 07/06/10 11/21/20 documented as of this encounter
--- OUTSIDE RECORDS SUMMARY | 2024-04-26 21:20 | XMS_ITS | Encounter Summary ---
Author Organization [facility] Address [address] [place] [address] Care Team Providers Care Greens Keeper Name Role Phone Clinic, [facility] Ob/Med Primary Care Provider [phone] Encounter Details Date Type Department Care Team (Late st Contact Info) Description 07/06/2010 9:58 AM CDT - 07/06/2010 9:59 AM CDT Hospital Encounter [facility] MATERNAL/ EVALUATION UNIT [address] [place] [address] Jefferson Monroe MD [address] [place] [address] Clinic Social History Tobacco Use Types Packs/Day [...] on filedocumented in this encounter Care Teams Greens Keeper Relationship Specialty Start Date End Date Clinic, [facility] Ob/Med [address] [place] [address] PCP - General 07/06/10 11/21/20 documented as of this encounter
--- OUTSIDE RECORDS SUMMARY | 2024-04-26 21:20 | XMS_ITS | Encounter Summary ---
Author Organization [facility] Address [address] [place] [address] Care Team Providers Care Band Instrument Repairer Name Role Phone Clinic, [facility] Ob/Med Primary Care Provider [phone] Encounter Details Date Type Department Care Team (Latest Contact Info) Description 10/04/2010 9:00 AM CDT - 10/04/2010 11:59 PM T Hospital Encounter [facility] EVAL/TRTMNT [address] [place] [address] Discharge Disposition: Home or Self Care Social [...] as of this encounter Progress Notes * Amanda Khan RN - 10/04/2010 2:09 PM CDT Pt at [facility] for US and came to [facility] for help in getting Levothyroxin 0.125 refilled. States she had no refills left and when pharmacy tried to refill it was denied . Called John @ [phone]. Levothyroxin refilled. documented in this encounter Plan of Treatment Not on file documented as of this encounter Procedures Procedure Name Priority Date/Time Associated Diagnosis Comments SONOGRAM - COMPLETE Routine 10/04/2010 9 :45 AM CDT documented in this encounter Results * SONOGRAM - COMPLETE (10/04/2010 9:45 AM CDT) Anatomical Region Laterality Modality Other 10/04/2010 9:45 AM CDT Narrative 10/04/2010 12:33 PM CDT ? [facility] ? Evaluation and Treatment Unit ?PHONE: ??FAX: Pat. Name: ?SAHRA MARTINEZ. No: ?[id number] Study Date: ?? 10/04/2010 ??9:45am , Age: ? 1980, 30 Pregnancies: ?? 5, Para 2222 LMP: ?Unknown GA by 1st: ?23w5d GA by US: ? 23w6d GA Selected: ??23w5d (From Known E) DEVIN: ?01/26/2011 Referring : KIERA Zipper Sewing Machine Operator: ??Nga Phillips RDMS Hist/Ind: ? H/O Cone Biopsy ?H/O PTD x2 ?Pre E with Last ?Hypothyroidism MEASUREMENTS & AGE ? GROWTH EVALUATION Measurement ??GA ? Range ? Srce %for GA Ratios ----- ---- ------- BPD ??5.8 cm 23w6d ([id number]) Hadl BPD 54% FL/BPD 0.73 (0.71 - 0.87) HC ??21.9 cm 23w6d ([id number]) Hadl HC ??56% FL/AC ??0.23 (0.20 - 0.24) AC ??18.2 cm 23w0d ([id number]) Hadl AC ??36% HC/AC ??1.20 (1.03 - 1.22) FL ?? 4.3 cm 24w0d ([id number]) Hadl FL ??57% CI ? 0.76 (0.70 - 0.86) HL ?? 4.0 cm 24w3d ([id number]) Edmund HL ??61% GA for sonogram 23w6d ([id number]) ?? Weight Estimate: based on (HL,BPD,HC,AC,FL) Avg ? Weight: 604 gm (515-692) Hadlock ? : 1lbs, 5oz ? Normal: 614 gm (406-1054) Sunil ? Wt% ? 48% for 23.7 wks Cervical Length: ??3.7 cm Heart Rate: 153 bpm CLINICAL SUMMARY Study Number: ??2 A lee fetus is identified in cephalic [...] length measures 3.7cm with no funneling identified. ??(No change is seen with fundal pressure). IMPRESSION 1) Normal CL at 23w5d 2) Normal amniotic fluid 3) Appropriate growth 4) Placenta location: Lt Lateral 5) No malformation seen at this time within the limits of ultrasound RECOMMEND: 1) Follow up ultrasound in 4 weeks to reassess cervical length. Santosh Bland MD <Electronic Signature> ??10/04/2010 12:33pm Jefferson Monroe MD [facility] ORDERABLES documented in this encounter Visit Diagnoses Not on filedocumented in this encounter Care Teams Band Instrument Repairer Relationship Specialty Start Date End Date Clinic, [facility] Ob/Med [address] [place] [address] PCP - General 07/06/10 11/21/20 documented as of this encounter
--- OUTSIDE RECORDS SUMMARY | 2024-04-26 21:21 | XMS_ITS | Encounter Summary ---
Author Organization [facility] Address [address] [facility] [place] [address] Phone Care Team Providers Care Donor Relations Officer Name Role Phone Soila Santos MD Unavailable Echo Pollard MD Primary Care Provider [phone] Reason for Visit * Reason Comments New Patient Thyroid Problem * Consult, Test & Initiate Treatment (Routine) - Closed Specialty Diagnoses / Procedures Referred By Faiza t Referred To Contact Endocrinology Diagnoses Hypothyroid Unspecified abnormal finding in specimens from other organs, systems and tissues Echo Pollard MD [address] [place] [address] [place] [address] Phone: tel: fax: Soila Santos MD [address] [address] Phone: tel: fax: Referral ID Status Reason Start Date Expiration Date Visits Re quested Visits Authorized [id number] Closed 1 1 Encounter Details Date Type Department Care Team (Late st Contact Info) Description 01/01/2023 10:15 AM CDT Office Visit [facility] - Endocrinology - [place] [address] [place] [address] Soila Santos MD [address] [address] Hypothyroidism, unspecified type (Primary Dx) Discharge Disposition: Discharged to home or Selfcare Social History Tobacco Use Types Packs/Day Years Used Date Smoking Tobacco: Never Assessed Comments No Sex and Gender Information Value Date Recorded Sex Assigned at Not on file Legal Sex Female 1:40 PM CDT Gender Identity Not on file Sexual Orientation Not on file COVID-19 Exposure Response Date Recorded In the last 10 days, have yo u been in contact with someone who was confirmed or suspected to have Coronavirus/COVID-19? No / Unsure 01/01/2023 10:05 AM CDT documented as of this encounter Last Filed Vital Signs Vital Sign Reading Time Taken Comments Blood Pressure 116/74 01/01/2023 10:20 AM CDT Pulse 78 01/01/2023 10:20 AM CDT Temperature 36.4 ??C (97.6 ??F) 01/01/2023 10:20 AM C DT Respiratory Rate 20 01/01/2023 10:20 AM CDT Oxygen Saturation 98% 01/01/2023 10:20 AM CDT Inhaled Oxygen Concentration - - Weight 63.3 kg (139 lb 9.6 oz) 01/01/2023 10:20 AM CDT Height - - Body Mass Index - - documented in this encounter Patient Instructions * Patient Instructions* Soila Santos MD - 01/01/2023 10:15 AM CDT Please take levothyroxine 175 mcg daily on an empty stomach with water in the morning Please take regular medication at least 30 min after taking levothyroxine Please take calcium and iron supplement 4 hr after taking levothyroxine Please check thyroid function test today and in 6 weeks Additional steps and management will then be determined when the aforementioned laboratory result is available for review. Follow up visit in 6 weeks documented in this encounter Progress Notes * Soila Santos MD - 01/01/2023 10:15 AM CDT CC: Hypothyroidism HPI: Sahra Parks is a 42-year-old woman who comes to the Endocrinology Offices to review thyroid function test result and discuss treatment options for hypothyroidism. Other pertinent health history includes iron deficiency anemia, anxiety, DVT, and seizure disorder. The patient takes levothyroxine 175 mcg daily for management of hypothyroidism. The patient reportsthat she takes thyroxine with other medication in the morning. The patient restarted to take levothyroxine 2-3 weeks ago because she couldn't get medication at her facility. Ms. Parks has experiencedlack of energy, malaise, and generalized weakness. Serum TSH checked in September 2022 was 0.19 mIU/L (reference range 0.3 to 4.2). Review of Systems Constitutional: Negative for activity change, appetite change. (+) fatigue, (+) unexpected weight gain Eyes: Negative for pain and visual disturbance. Respiratory: Negative for cough and shortness of breath. Cardiovascular: Negative for chest pain and palpitations. Gastrointestinal: Negative for diarrhea, constipation and abdominal distention. Endocrine: Negative for heat or cold intolerance Past Medical History DVT Seizure disorder Cellulitis Asthma Anxiety [place] abuse Hypothyroidism Social History Socioeconomic History ??? Marital status: Single Spouse name: Not on file ??? Number of children: Not on file ??? Years of education: Not on file ??? Highest education level: Not on file Occupational History ??? Not on file Tobacco Use ??? Smoking status: Not on file ??? Smokeless tobacco: Not on file Substance and Sexual Activity ??? Alcohol use: Not on file ??? Drug use: Not on file ??? Sexual activity: Not on file Other Topics Concern ??? Not on file Social History Narrative ??? Not on file Vitals: 01/01/23 1020 BP: 116/74 Pulse: 78 Resp: 20 Temp: 97.6 ??F (36.4 ??C) SpO2: 98% Weight: 139 lb 9.6 oz (63.3 kg) Objective: Physical Exam Constitutional: appears well-developed and well-nourished. No acute distress. Head: Normocephalic and atraumatic. Eyes: EOM are normal, Not icteric Neck: The patient's neck was supple, and no cervical lymphadenopathy was appreciated. The patient'sthyroid was approximately 10 g to 15 g in size. Lymph Node: No cervical, clavicular, or posterior auricular lymphadenopathy Cardiovascular: Normal rate and regular rhythm Pulmonary/Chest: Effort normal and breath sounds normal Neurological: No significant tremor noted on arms extended DIAGNOSTIC DATA: Medical record including lab test result was reviewed. Assessment and Plan Ms. Parks is a middle-aged woman with hypothyroidism who appears to be clinically euthyroid, but TSH checked in September 2022 was consistent with over- replacement of levothyroxine. She is highly reluctant to reduce levothyroxine. Test result and how to take levothyroxine were discussed with her at great length. Arrangement will be made for thyroid function test today and in 6 weeks. Additional steps and management will then be determined when the aforementioned laboratory result is available for review. PLAN: 1. Continue LT4 175 mcg daily on an empty stomach with water in the morning 2. Check thyroid function test today and in 6 weeks 3. Further plan based on #2 4. RTC in 6 weeks ??? Total time spent on this encounter on this date of service, including pre- visit review of separately obtained history, [id number] interaction performing medically appropriate physical exam, patient counseling/education, interpretation of diagnostic results, care coordination and documentationwas 45 minute Soila Santos MD 01/01/2023 documented in this encounter Plan of Treatment Not on file documented as of this encounter Results * THYROXINE (T4) FREE (01/01/2023 11:27 AM CDT) T4 FREE 1.6 0.7 - 1.9 ng/dL 01/01/2023 1:17 PM CDT [facility] Blood Venipuncture / Unknown 01/01/2023 11:27 AM CDT 01/01/2023 12:22 PM CDT us Soila Santos MD CHEMISTRY ORDERABLES Final Resul t [facility] [address] [place] [address] * (ABNORMAL) THYROID STIMULATING HORMONE (TSH) (01/01/2023 11:27 AM CDT) TSH 0.053(L) 0.300 - 5.000 mIU/L 01/01/2023 1:17 PM CDT [facility] Blood Venipuncture / Unknown 01/01/2023 11:27 AM CDT 01/01/2023 12:22 PM CDT us Soila Santos MD CHEMISTRY ORDERABLES Final Resul t [facility] [address] [place] [address] documented in this encounter Visit Diagnoses Diagnosis Hypothyroidism, unspecified type- Primary documented in this encounter Care Teams Donor Relations Officer Relationship Specialty Start Date End Date Echo Pollard MD [facility] [place] [address] PCP - General Primary Care 01/01/23 Soila Santos MD [address] [address] Consulting Physician Endocrinology 12/17/22 documented as of this encounter
--- OUTSIDE RECORDS SUMMARY | 2024-04-26 21:21 | XMS_ITS | Encounter Summary ---
Author Organization [facility] Address [address] [place] [address] Phone Care Team Providers Care Appetizer Packer Name Role Phone Soila Santos MD Unavailable Echo Pollard MD Primary Care Provider [phone] Reason for Visit * Reason Onset Date Comments Results 01/05/2024 Encounter Details Date Type Department Care Team (Late st Contact Info) Description 01/05/2024 Telephone [facility] - Endocrinology - [place] [address] [place] [address] Soila Santos MD [address] [address] Results Social History Tobacco Use Types Packs/Day Years Used Date Smoking Tobacco: Never Smokeless Tobacco: Never Alcohol Use Standard Drinks/Week Comments Not Currently 0 (1 standard drink = 0.6 oz pur e alcohol) Sexually Active Control Partners Comments Yes Comments No Sex and Gender Information Value Date Recorded Sex Assigned at Not on file Legal Sex Female 1:40 PM CDT Gender Identity Not on file Sexual Orientation Not on file documented as of this encounter Miscellaneous Notes * Telephone Encounter - Soila Santos MD - 01/05/2024 11:11 PM CDT 12/06/23 TPO Ab 66 (0-34) Thyroglobulin Ab 1.5 (0-0.9) documented in this encounter Plan of Treatment Not on file documented as of this encounter Visit Diagnoses Not on filedocumented in this encounter Care Teams Appetizer Packer Relationship Specialty Start Date End Date Echo Pollard MD [address] [facility] [place] [address] PCP - General Primary Care 01/01/23 Soila Santos MD [address] [address] Consulting Physician Endocrinology 12/17/22 documented as of this encounter
--- OUTSIDE RECORDS SUMMARY | 2024-04-26 21:21 | XMS_ITS | Encounter Summary ---
Author Organization [facility] Address [address] [place] [address] Phone Care Team Providers Care Drop Tester Name Role Phone Soila Santos MD Unavailable Echo Pollard MD Primary Care Provider [phone] Reason for Visit * Reason Onset Date Comments Results 01/04/2023 Medication Management 01/04/2023 Encounter Details Date Type Department Care Team (Late st Contact Info) Description 01/04/2023 Telephone [facility] - Gastroenterology - [place] [address]2 [place] [address] Soila Santos MD [address] [address] Results; Medication Management Social History Tobacco Use Types Packs/Day Years [...] AM CDT documented as of this encounter Miscellaneous Notes * Telephone Encounter - Soila Santos MD - 01/04/2023 4:41 PM CDT Ms. Parks is reluctant to reduce levothyroxine. PLAN: 1. Continue LT4 175 mcg daily 2. Check thyroid function test in 6 weeks 3. Further plan based on #2 * Telephone Encounter - Soila Santos MD - 01/04/2023 12:02 PM CDT Over-replacement of thyroid hormone can cause cardiovascular complication and weak bone. * Telephone Encounter - Soila Santos MD - 01/04/2023 9:00 AM CDT Please inform her that thyroid function test result was consistent with over- replacement of levothyroxine. PLAN: 1. Decrease levothyroxine from 175 mcg to 150 mcg daily - new Rx sent to [facility] 2. Check thyroid function test in 6 weeks - lab order is ready documented in this encounter Plan of Treatment Scheduled Orders Name Type Priority Associated Diagnoses Orde r Schedule THYROID STIMULATING HORMONE (TSH) Lab Routine Hypothyroidism, unspecified type Expected: 02/03/2023, Expires: 04/05/2023 THYROXINE (T4) FREE Lab Routine Hypothyroidism, unspecified type Expected: 02/03/2023, Expires: 04/05/2023 documented as of this encounter Visit Diagnoses Diagnosis Hypothyroidism, unspecified type- Primary documented in this encounter Care Teams Drop Tester Relationship Specialty Start Date End Date Echo Pollard MD [address] [place] [address] PCP - General Primary Care 01/01/23 Soila Santos MD [address] [address] Consulting Physician Endocrinology 12/17/22 documented as of this encounter
--- OUTSIDE RECORDS SUMMARY | 2024-04-26 21:21 | XMS_ITS | Encounter Summary ---
Author Organization [facility] Address [address] [place] [address] Phone Care Team Providers Care Business Services Intern Name Role Phone Soila Santos MD Unavailable Echo Pollard MD Primary Care Provider [phone] Reason for Visit * Reason Onset Date Comments Results 05/05/2023 Medication Management 05/05/2023 Encounter Details Date Type Department Care Team (Late st Contact Info) Description 05/05/2023 Telephone [facility] - Endocrinology - [place] [address] [place] [address] Soila Santos MD [address] [address] Results; Medication Management Social History [...] Telephone Encounter - Soila Santos MD - 05/05/2023 7:18 PM CST Please inform her that thyroid function test result was consistent with over- replacement of levothyroxine. PLAN: 1. Decrease levothyroxine from 175 mcg to 150 mcg daily - new Rx sent 2. Check thyroid function test in 6 weeks - lab order is ready 3. Further plan based on #2 GRATION ARCHITECT documented in this encounter Plan of Treatment Scheduled Orders Name Type Priority Associated Diagnoses Orde r Schedule THYROID STIMULATING HORMONE (TSH) Lab Routine Hypothyroidism, unspecified type Expected: 02/03/2024, Expires: 08/03/2024 THYROXINE (T4) FREE Lab Routine Hypothyroidism, unspecified type Expected: 01/06/2024, Expires: 07/05/2024 documented as of this encounter Visit Diagnoses Diagnosis Hypothyroidism, unspecified type- Primary documented in this encounter Care Teams Business Services Intern Relationship Specialty Start Date End Date Echo Pollard MD [facility] [place] [address] PCP - General Primary Care 01/01/23 Soila Santos MD [address] [address] Consulting Physician Endocrinology 12/17/22 documented as of this encounter
--- OUTSIDE RECORDS SUMMARY | 2024-04-26 21:21 | XMS_ITS | Encounter Summary ---
Author Organization [facility] Care Team Providers Care Bass Viol Repairer Name Role Phone Soila Santos MD Unavailable Echo Pollard MD Primary Care Provider [phone] Encounter Details Date Type Department Care Team (Latest Contact Info) Description 10/23/2023 Travel Social History Tobacco Use Types Packs/Day [...] on filedocumented in this encounter Care Teams Bass Viol Repairer Relationship Specialty Start Date End Date Echo Pollard MD [address] [place] [address] [place] [address] PCP - General Primary Care 01/01/23 Siola Santos MD [address] [address] Consulting Physician Endocrinology 12/17/22 documented as of this encounter
--- OUTSIDE RECORDS SUMMARY | 2024-04-26 21:21 | XMS_ITS | Clinical Summary ---
Author Organization [facility] Address [address] [place] [address] Care Team Providers Care Pre Sales Architect Name Role Phone Pierre Cisneros Primary Care Provider + Allergies Active Allergy Reactions Criticality Noted Date Comments Ciprofloxacin Nausea only,Vomiting Reaction: Nausea, Vomiting, Latex Rash Medium 01/12/2011 rash Morphine Swelling,Anaphylaxis ,Unknown High 07/06/2010 Throat swelling Sulfa (Sulfonamide Antibiotics) Nausea And Vomiting,Rash,Nausea only,Vomiting Medium 07/06/2010 Medications levothyroxine (SYNTHROID) 175 mcg tablet Take 1 tablet (175 mcg total) by mouth teacher of the emotionally disturbed before breakfast 30 tablet 10/20/19 23 Active Additional Information Patient taking differently:175 mcg oralNightly, Indications: hypothyroidism, Informant: Self, Reported on 11/04/2023 ALPRAZolam (XANAX) 1 mg tabletIndications: anxiety Take 1 tablet (1 mg total) by mouth 3 (three) times a day as needed for anxiety 01/22/20 23 Active naltrexone (DEPADE) 50 mg tabletIndications: Prevention of Opioid Abuse Take 1 tablet (50 mg total) by mouth nightly 05/10/19 24 Active dextroamphetamine- amphetamine XR (ADDERALL XR) 30 mg 24 hr capsuleIndications :Attention-Deficit Hyperactivity Disorder Take 1 capsule (30 mg total) by mouth every morning 06/04/19 24 Active lamoTRIgine (LaMICtal) 150 mg tablet Take 1 tablet (150 mg total) by mouth daily On hold 01/08/20 23 Active HYDROcodone-acetam inophen (NORCO) 5-325 mg per tabletIndications: Pain Take 1 tablet by mouth every 6 (six) hours as needed for pain 10/30/19 24 Active Wellbutrin XL 300 mg 24 hr tabletIndications: Anxiety with Depression Take 1 tablet (300 mg total) by mouth nightly Half tablet 05/30/19 22 Active tretinoin (RETIN-A) 0.1 % creamIndications:A cne Vulgaris Apply topically nightly 10/01/19 24 Active pregabalin (LYRICA) 50 mg capsuleIndications :pain Take 1 capsule (50 mg total) by mouth 3 (three) times a day Active ondansetron ODT (ZOFRAN-ODT) 8 mg disintegrating tablet Take 1 tablet (8 mg total) by mouth every 8 (eight) hours as needed for nausea 20 tablet 11/15/19 24 Active cloNIDine (CATAPRES) 0.3 mg tabletIndications: hypertension Take 1 tablet (0.3 mg total) by mouth nightly Hold if systolic BP <110 11/15/19 24 Active lidocaine (ASPERCREME) 4 % adhesive patch,medicated Place 1 patch on the skin daily 20 patch 11/15/19 24 Active Additional Information Patient not taking.Reported on 03/03/2024 oxyCODONE (ROXICODONE) 5 mg immediate release tabletIndications: Pain Take 1 tablet (5 mg total) by mouth every 4 (four) hours as needed for pain 10 tablet 11/15/19 24 Active cetirizine (ZyrTEC) 10 mg tablet Take 1 tablet (10 mg total) by mouth daily 12/31/19 24 Active clonidine HCl/chlorthalidone (CLONIDINE-CHLORTH ALIDONE ORAL) 10/31/19 24 Active Linzess 145 mcg capsule Take 1 tablet by mouth daily Active nortriptyline (PAMELOR) 10 mg capsule Take 1 capsule every day by oral route at bedtime for 30 days. Active solifenacin (VESIcare) 10 mg tablet Take 1 tablet (10 mg total) by mouth daily Active topiramate (TOPAMAX) 100 mg tablet Take 1 tablet (100 mg total) by mouth 2 (two) times a day 11/11/19 24 Active levothyroxine (SYNTHROID) 150 mcg tablet Take 1 tablet (150 mcg total) by mouth daily 12/10/19 Active levoFLOXacin (LEVAQUIN) 750 mg tablet Take by mouth daily For ten days Active cyclobenzaprine (FLEXERIL) 10 mg tablet Take 1 tablet (10 mg total) by mouth nightly at bedtime 02/11/20 Active gabapentin (NEURONTIN) 100 mg capsule TAKE 1 CAPSULE BY MOUTH EVERY DAY AT BEDTIME FOR SLEEP OR ANXIETY 01/31/20 Active rivaroxaban (XARELTO) 20 mg tablet Take 1 tablet (20 mg total) by mouth daily with breakfast 30 tablet 3 03/11/20 24 Active Active Problems Problem Noted Date Diagnosed Date August-Thurner syndrome 11/14/2023 Assessment & Plan (11/15/2023 1:26 PM CDT): S/p left iliac venogram, right iliac venogram and left common iliac artery stenting with Interventional Radiology She tolerated the procedure She was started on Plavix + xarelto by IR Arthralgia of both knees 09/30/2023 Loss of hair 09/30/2023 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 ([facility]/HCC) 08/15/2023 Dysuria 08/14/2023 Positive antinuclear antibody 05/29/2023 COVID-19 04/03/2023 Chronic abdominal pain 02/25/2023 Seborrheic dermatitis of scalp 02/25/2023 Seizure disorder ([facility]) 02/25/2023 Assessment & Plan (11/14/2023 6:59 PM CDT): Continue lamotrigine and Lyrica Hypothyroidism 01/25/2023 Assessment & Plan (11/14/2023 6:59 PM CDT): Continue Synthroid Pain in pelvis 01/25/2023 Low back pain 12/17/2022 Cyst of ovary 11/29/2022 Essential hypertension 11/29/2022 Galactorrhea not associated with childbirth 11/20 Headache 11/29/2022 Low grade squamous intraepit helial lesion (LGSIL) on cervicovaginal cytologic smear 11/29/2022 Malaise and fatigue 11/29/2022 Cervical intraepithelial neoplasia 11/29/2022 Multinodular goiter 11/29/2022 Neoplasm of bone 11/29/2022 Flank pain 11/29/2022 Pain of breast 11/29/2022 Uterine leiomyoma 11/29/2022 Nicotine dependence 11/27/2022 Chronic idiopathic constipation 11/26/2022 Nondiabetic gastroparesis 11/26/2022 Nausea 11/19/2022 Deep vein thrombosis (DVT) (CMS/HCC) 11/16/2022 Chronic ethmoidal sinusitis 11/15/2022 Chronic maxillary sinusitis 11/15/2022 Acute embolism and thrombosi s of unspecified deep veins of left lower extremity 10/18/2022 Deep vein thrombosis (DVT) of left lower extremi ty 10/15/2022 Assessment & Plan (11/14/2023 6:58 PM CDT): On Xarelto at home Migraine 09/12/2022 Bipolar disorder 09/07/2022 Cobalamin deficiency 09/07/2022 Cigarette smoker 09/04/2022 Abnormal laboratory test result 08/06/2022 Allergic rhinitis 07/27/2022 Vitamin B12 deficiency (non anemic) 07/27/2022 Allergic rhinitis, unspecified 07/27/2022 Anorexia nervosa, binge eating/purging type 05/24 Attention deficit hyperactiv ity disorder, predominantly inattentive type 06/13/2022 Benign endometrial hyperplasia 06/13/2022 Major depressive disorder, recurrent, unspecifie d 06/13/2022 Personal history of suicidal behavior 06/13/2022 Paranoid schizophrenia ([facility]/HCC) 06/13/2022 Moderate protein-calorie malnutrition ([facility]/HCC) 06/13/2022 Hypothyroidism, unspecified 06/13/2022 Other asthma 06/13/2022 Systemic lupus erythematosus , organ or system involvement unspecified 06/13/2022 Anxiety disorder, unspecified 06/13/2022 Bipolar disorder, current ep isode depressed, mild or moderate severity, unspecified 06/13/2022 Delusional disorders 06/13/2022 Mixed anxiety and depressive disorder 01/24/2021 Assessment & Plan (11/14/2023 6:59 PM CDT): Continue Wellbutrin Xanax p.r.n. continued Anxiety disorder 01/24/2021 MDD (major depressive disorder), single episode, moderate 11/22/2020 Carpal tunnel syndrome on left 09/14/2010 Overview (11/01/2020): Transient, intermittent and more with activity. Has braces. Seizure disorder (CMS/HCC) 09/14/2010 Overview (11/01/2020): Questionable history; reports that these occurred when she was on antidepressants and OCPs Did see Neurologist; thought that perhaps from hormones or migraines?? No medications; last seizure 2.5 years ago Asthma 07/06/2010 Overview (11/01/2020): Remote, no sxs Encounter for health-related screening 1 Overview (11/01/2020): NT normal. Second part of screen negative. IMO update 07 21 2017 SAB (spontaneous ) 07/06/2010 Overview (11/01/2020): H/o 2 sabs (one ?triploidy with Dr. Alejandro, D&C done at [facility]; the other due to low hormone so is on hormone pills now ?progesterone) 1 TAB (took pills) Received records from Dr. Alejandro from 11/1999. U/S revealed gestational sac without pole. D&C pathology revealed immature chorionic villi and decidua. No record of chromosomal studies received from any SAB. Status post umbilical hernia repair, follow-up e xam 07/06/2010 Overview (11/01/2020): With mesh Dr. Flynn at [facility] Tobacco use disorder complic ating , childbirth, or the puerperium 07/06/2010 Anxiety 06/22/2010 Overview (11/01/2020): And neurosis; patient denies current symptoms. No medications GBS (group B streptococcus) UTI complicating pre gnancy 06/22/2010 Hypothyroid 06/22/2010 Overview (11/01/2020): Component Name 01/11/11 1230 11/30/10 1030 11/08/10 1345 T4FREE 1.11 1.22 1.15 Component Name 01/11/11 1230 11/30/10 1030 11/08/10 1345 TSH 1.59 1.90 3.01 Continue synthroid 125mcg daily History of delivery, currently 06/22/2010 Overview (11/01/2020): 36wk spontaneous PTD 33wk induction due to superimposed severe Pre-E Lupus (systemic lupus erythematosus) ([facility]) 0 06/22/2010 Overview (11/01/2020): ?questionable. Pt states she has had symptoms for life but never tested positive CIARRA neg DS DNA antibody, SSA and SSB negative. Schedule weekly BPP, DUNIA, NST Marijuana abuse 06/22/2010 Overview (11/01/2020): UDS positive for MJ on 07/06/10 S/P cone biopsy of cervix 06/22/2010 Overview (11/01/2020): CL 3.7 cm Severe pre-eclampsia, antepartum 06/22/2010 Overview (11/01/2020): H/o in last delivery secondary to elevated BPs Had placenta previa, chorioangioma, severe pre-E 24 hour urine protein 11/30: 158 Supervision of high-risk 06/22/2010 Overview (11/01/2020): Datinweeks documented scan c/w 13w scan (07/26 was 13w6d) PNL: A+/I/-/-; HIV NR Hbg/Plt: 13.7/ 326 (06/08) Pap: neg Gc/Chl: negative GCT: 76 GBS: uria in May Malignant neoplasm of cervix (CMS/HCC) 7 Encounters Date Type Department Care Team Description 03/11/2024 Telephone [facility] Radiology [address] [place] [address] Becky Mtz, RN 03/09/2024 Telephone [facility] Radiology [address] [place] [address] Becky Mtz, RN 03/03/2024 12:30 PM DROP CREW LABORER Lab [facility] - Lab Collection [address] [place] [id number] Anemia, unspecified type; H/O menorrhagia 03/03/2024 12:15 PM DROP CREW LAB[employer] Lab [facility] [address] [place] [phone] 03/03/2024 11:15 AM DROP CREW LABORER Office Visit [facility] Hematology [address] [place] [phone] Anna Rizzo MD Anemia due to other cause, not classified (Primary Dx); VTE (venous thromboembolism); May-Thurner syndrome; Iron deficiency anemia, unspecified iron deficiency anemia type; Menorrhagia with regular cycle; Blood coagulation disorder (CMS/HCC) (HCC); Coagulation defect (CMS/HCC) (HCC); Anemia, unspecified type; H/O menorrhagia 02/25/[address] [facility] [address] [place] [phone] Chacha Cartwright from Last 3 Months Immunizations Name Administration Dates Next Due HPV, Unspecified 02/28/2009,05/07/2007, 7,10/02/2006 Influenza, Unspecified 01/16/2011 PPD TEST 07/25/2022 Tdap 04/22/2009 Surgical History Surgery Date Site/Laterality Comments HERNIA REPAIR 04/22/2008 - 04/21/2009 SINUS SURGERY 01/20/2023 - 02/19/2023 ANGIOPLASTY / STENTING FEMORAL 09/20/2022 - 10/19/2022 Le ft LLE Medical History Medical History Date Comments Cellulitis Cellulitis - (Ad ded by TW Conv) Motion sickness Social History Tobacco Use Types Packs/Day Years Used Date Smoking Tobacco: Former Cigarettes Passive Smoke Exposure: Past Smokeless Tobacco: Never Tobacco Cessation:Counseling Given: Not Answered Alcohol Use Standard Drinks/Week Comments Not Currently 0 (1 standard drink = 0.6 oz pur e alcohol) AUDIT-C Answer Date Recorded Frequency of Alcohol Consumption Not on file 11/04/2023 Q2: How many drinks containi ng alcohol do you have on a typical day when you are drinking? Patient does not drink Frequency of Binge Drinking Not on file 10/20 Hunger Vital Sign Answer Date Recorded Within the past 12 months, y ou worried that your food would run out before you got the money to buy more. Never true 01/22/20 23 Within the past 12 months, t he food you bought just didn't last and you didn't have money to get more. Never true 01/21/2023 Personal Safety Answer Date Recorded Have you ever been in or are you currently in a harmful physical or emotional relationship or is someone making you feel afraid or unsafe? Denies 11/14/2023 Comments No Sex and Gender Information Value Date Recorded Sex Assigned at Not on file Legal Sex Female 7:09 AM [employer]OP CREW LABORER Gender Identity Female 10/24/2023 9:52 AM CDT Sexual Orientation Straight 10/24/2023 9: 52 AM CDT Obstetrics History Para Term AB IAB SAB Ectopic Multiple Livin g Live Births 7 3 3 0 4 Date Outcome GA Total Labor Labor/2nd/3rd Weight Sex Type Anes PTL Debora A1 A5 Name Clin Term Term Term AB AB AB AB Last Filed Vital Signs Vital Sign Reading Time Taken Comments Blood Pressure 116/77 03/03/2024 11:14 AM [employer] CREW LABORER Pulse 108 03/03/2024 11:14 AM [employer] CREW LABORER Temperature 35.9 ??C (96.7 ??F) 03/03/2024 11:[address] Respiratory Rate 18 03/03/2024 11:14 AM [employer] CREW LABORER Oxygen Saturation 100% 03/03/2024 11:14 AM [employer] CREW LABORER Inhaled Oxygen Concentration - - Weight 62.3 kg (137 lb 6.4 oz) 03/03/2024 11:14 AM [employer] CREW LABORER Height 165.1 cm (5' 5 ) 01/03/2024 8:11 AM CDT Body Mass Index 22.86 01/03/2024 8:11 AM CDT Plan of Treatment Health Maintenance Due Date Last Done Comments Depression Screening 1980 Hepatitis C Screening 1980 Pneumococcal vaccine <65 (1 of 2 - PCV) 08/19/1987 Varicella Vaccines (1 of 2 - 13+ 2-dose series) 1994 Hepatitis B Screening 08/19/1999 Regular Well Visit/Exam 18-64 08/19/1999 DTaP/Tdap/Td Vaccine (2 - Td or Tdap) 04/22/2019 04/22/2009 Breast Cancer Screening-Mammogram 05/10/2023 023 Cervical Cancer Screening 10/18/2023 10/17/2022 Covid-19 Vaccine (3 2023-2 5 season) 2023 05/06/2021, 12/13/2020 Influenza Vaccine (#1) 2023 01/16/2011 HPV Vaccines Completed 02/28/2009, 04/22, 01/21/2007, Additional history exists Medical Devices Implanted Type Area [employer] Device Identifier Shelf Expiration Date Model / Serial / Lot [employer] Abre 16mm 100mm Self Expand Rotate Thumbwheel Hemostatic Valve [id number] - [id number] Implanted:Qty: 1 on 10/15/2022 at [facility] [employer] 10/30/2024 [id number] / / [id number] [employer] Abre 12mm 120mm Self Expand Rotate Thumbwheel Hemostatic Valve [id number] - [id number] Implanted:Qty: 1 on 11/14/2023 at [facility] [employer] 01/16/2025 [id number] / / [id number] Procedures Procedure Name Priority Date/Time Associated Diagnosis Comments DIFFERENTIAL AUTO Routine 03/03/2024 12: 24 PM [employer]ER Anemia, unspecified type H/O menorrhagia CBC WITH AUTO DIFFERENTIAL Routine 03/03/2024 12:24 PM [employer]ER Anemia, unspecified type H/O menorrhagia FERRITIN Routine 03/03/2024 12:24 PM [employer]ER Anemia, unspecified type H/O menorrhagia RETICULOCYTES Routine 03/03/2024 12:24 PM [employer]ER Anemia, unspecified type H/O menorrhagia IRON PROFILE W/ IBC Routine 03/03/2024 1 2:24 PM [employer]ER Anemia, unspecified type H/O menorrhagia PAP AND HIGH RISK HPV, REFLEX TO GENOTYPING Routine 10/17/2022 4:58 PM CDT from Last 3 Months or Most Recently Relevant to Health Maintenance Results * Differential, auto (03/03/2024 12:24 PM DR[employer] CRE[employer] LABORER) Neutrophil abs 4.3 1.5 - 6.5 K/cumm Comment:Testing performed by : [facility], [address] [place], [place] [phone] Lymphocyte abs 2.6 0.8 - 3.3 K/cumm [facility] Comment:Testing performed by : [facility], [address] [place], [place] [phone] Monocyte abs 0.5 0.2 - 0.8 K/cumm [facility] Comment:Testing performed by : [facility], [address] [place] [phone] Eosinophil abs 0.2 0.0 - 0.5 K/cumm [facility] Comment:Testing performed by : [facility], [address] [place] [phone] Basophil abs 0.1 0.0 - 0.1 K/cumm [facility] Comment:Testing performed by : [facility], [address] [place] [phone] Neutrophil pct 56.3 % [facility] Comment: Interpretive Data Percent cell count reference ranges are not reported, since discordance with absolute values may lead to misinterpretation of CBC data. Current Interpretive Data was last revised on 2017. Testing performed by: [facility], [address] [place] [phone] Lymphocyte pct 33.7 % [facility] Comment: Interpretive Data Percent cell count reference ranges are not reported, since discordance with absolute values may lead to misinterpretation of CBC data. Current Interpretive Data was last revised on 2017. Testing performed by: [facility], [address] [place] [phone] Monocyte pct 6.4 % [facility] Comment: Interpretive Data Percent cell count reference ranges are not reported, since discordance with absolute values may lead to misinterpretation of CBC data. Current Interpretive Data was last revised on 2017. Testing performed by: [facility], [address] [place] [phone] Eosinophil pct 2.9 % [facility] Comment: Interpretive Data Percent cell count reference ranges are not reported, since discordance with absolute values may lead to misinterpretation of CBC data. Current Interpretive Data was last revised on 2017. Testing performed by: [facility], [address] [place] [phone] Basophil pct 0.7 % [facility] Comment: Interpretive Data Percent cell count reference ranges are not reported, since discordance with absolute values may lead to misinterpretation of CBC data. Current Interpretive Data was last revised on 2017. Testing performed by: [facility], [address] [place] [phone] Blood 03/03/2024 12:2 4 PM [employer] CREW LABORER 03/03/2024 12:45 PM [employer] CREW LABORER us Anna Rizzo MD LAB BLOOD ORDERABLES Final Result [facility] Department [place] [address] * (ABNORMAL) Iron profile w/ IBC (03/03/2024 12:24 PM DROP CREW LABORER) Pathologist [facility] Iron 29(L) 35 - 145 mcg/dL TIBC 368 250 - 400 mcg/dL [facility] Transferrin saturation 8(L) 20 - 50 % [facility] Blood 03/03/2024 12:2 4 PM [employer] CREW LABORER 03/03/2024 12:48 PM [employer] CREW LABORER Anna Rizzo MD LAB BLOOD ORDERABLES Final Result [facility] Department [place] [address] * (ABNORMAL) CBC with auto differential (03/03/2024 12:24 PM DROP CREW LABORER) [facility] WBC 7.6 3.8 - 9.9 K/cumm Comment:Testing performed by : [facility], [address] [place] [phone] Hgb 10.7(L) 11.9 - 15.5 g/dL [facility] Comment:Testing performed by : [facility], [address] [place] [phone] Hct 33.8(L) 35.6 - 45.5 % [facility] Comment:Testing performed by : [facility], [address] [place] [phone] Plt 538(H) 150 - 400 K/cumm [facility] Comment:Testing performed by : [facility], [address] [place] [phone] MPV 7.5 6.8 - 10.4 fL [facility] Comment:Testing performed by : [facility], [address] [place] [phone] RBC 4.25 3.90 - 5.20 M/cumm [facility] Comment:Testing performed by : [facility], [address] [place], [place] [phone] MCV 79.6(L) 81.3 - 96.4 fL TE[facility] Comment:Testing performed by : [facility], [address] [place] [address] MCH 25.1(L) 27.1 - 33.3 pg TE[facility] Comment:Testing performed by : [facility], [address] [place] [address] MCHC 31.5(L) 32.3 - 35.7 g/dL [facility] Comment:Testing performed by : [facility], [address] [place] [address] RDW CV 14.8 11.1 - 14.9 % [facility] Comment:Testing performed by : [facility], [address] [place], [place] [phone] NRBC abs 0.00 0.00 - 0.01 K/cumm TE[facility] Comment:Testing performed by : [facility], [address] [place] [address] Blood 03/03/2024 12:2 4 PM [employer] CREW LABORER 03/03/2024 12:45 PM DR[employer] CREW LABORER us Anna Rizzo MD LAB BLOOD ORDERABLES Final Result [facility] Department [place] [address] * Reticulocyte Count (03/03/2024 12:24 PM DR[employer] CREW LABORER) Retics, absolute 0.052 0.020 - 0.100 M/cumm Comment:Testing performed by : [facility], [address] [place] [address] Retics 1.2 0.5 - 1.8 % TEZ [facility] Comment:Testing performed by : [facility], [address] [place] [address] Blood 03/03/2024 12:2 4 PM [employer] CREW LABORER 03/03/2024 12:45 PM [employer] CREW LABORER Anna Rizzo MD LAB BLOOD ORDERABLES Final Result Performing Organization Address City/[facility] Co de Phone Number [facility] Department [place] [address] * Ferritin (03/03/2024 12:24 PM DR[employer] CREW LABORER) Ferritin 19 13 - 150 ng/mL Blood 03/03/2024 12:2 4 PM [employer] CREW LABORER 03/03/2024 12:48 PM [employer] CREW LABORER Anna Rizzo MD LAB BLOOD ORDERABLES Final Result Performing Organization Address [facility] de Phone Number [facility] [place] [address] * Pap and High Risk HPV, reflex to Genotyping (10/17/2022 4:58 PM CDT) Thin prep (Pap test) 10/17/2022 4:58 PM CDT 10/17/2022 6:01 PM CDT Narrative PATHOLOGY [facility] - 10/25/2022 2:38 PM CDT EPIC results best viewed via link to PDF [facility] [place] [address] Note to Patients: This report may contain a detailed description of human tissue sent by a health care provider to the laboratory for pathologic evaluation. The content of this report is essential for diagnosis and may provide important critical findings. This information may be unfamiliar to patients to review without a medical professional present. It is advised that the patient review this report in the presence of a health care provider who can answer questions and explain the details. CYTOPATHOLOGY REPORT FINAL Patient Name: ??LUCIE PARKSPadmaja Gender: ??F : ??1980 (Age: 42) Address: ??[address] [address] [place] [place] ??[address] Hospital #: ??[id number] Service: ??Medical Location: ??[facility] 0144 Patient Type: ??[facility] Inpatient Taken: ??10/17/2022 Received: ??10/17/2022 Accessioned: ??10/18/2022 Reported: ??10/25/2022 Physician(s): ??Asia Bolden MD ?? FINAL INTERPRETATION SOURCE OF SPECIMEN ? Liquid based Thin Prep pap with HPV: STATEMENT OF ADEQUACY ?- Satisfactory for evaluation ?- Endocervical cells/transformation zone sample present ? GENERAL CATEGORIZATION: ?- Negative for squamous intraepithelial lesion or malignancy ? Comments HPV Result: ??NEGATIVE for high risk types of Human Papilloma Virus (HPV) RNA This probe detects the presence of HPV types: 16, 18, 31, 33, 35, 39, 45, 51, 52, 56, 58, 59, 66 and 68. ??This HPV test was performed at [facility] in [place], [place] utilizing the Gen-Probe Aptima assay. This specimen has been rescreened in accordance with this laboratory's Sales Representative Business Courses Program. 10/25/2022 14:38 SANDI Gill(ASCP) Report Electronically Reviewed and Signed Out By SANDI Taylor MS (ASCP) 10/25/2022 14:38:18 Cervicovaginal Cytology (Pap Test) Disclaimer: The Pap test is a screening test used to detect cervical cancer and its precursors; it is not a diagnostic procedure. False negative and false positive results do occur. Pap test results should be interpreted in the context of pertinent clinical information and biopsy results as indicated. CMS Clinical Laboratory Improvement Amendments (CLIA) mandate that cytologic and histologic results be correlated for laboratory quality auditor & improvement standards. ??FOR ALL HIGH-GRADE CASES we request submission of follow-up histological material and/or reports that have not been previously provided so that we may fulfill said required standards. ?? Gross Description A. ??Liquid based Thin Prep pap with HPV: ??Cervical/vaginal - Screening ThinPrep Clinical Diagnosis and History Last Menstrual Period: not known The patient is a 42 year old woman with AUB. The HPV test was performed by [facility], [address] [place] [address]. Report Images and scanned documents, if included only viewable in PDF version The performance characteristics of some immunohistochemical stains, in-situ hybridization and fluorescence in-situ hybridization tests and immunophenotyping by flow cytometry cited in this report (if any) were determined by the Surgical Pathology Department at [facility] as part of an ongoing quality control tech raw materials program and in compliance with federally mandated regulations drawn from the Clinical Laboratory Improvement Act of 1988 (CLIA '88). ??Some of these tests rely on the use of analyte specific reagents and are subject to specific labeling requirements by the US Food and Drug Administration. ??Such diagnostic tests may only be performed in a facility that is certified by the Department of Health and Human Services as a high complexity laboratory under CLIA '88. ??The FDA has determined that such clearance or approval is not necessary. ??This test is used for clinical purposes. ??It should not be regarded as investigational or for research. ??Nevertheless, federal rules concerning the medical use of analyte specific reagents require that the following disclaimer be attached to the report: This test was developed and its performance characteristics determined by the Surgical Pathology Department of [facility]. ??It has not been cleared or approved by the U. S. Food and Drug Administration. Jodee De Santiago MD LAB CYTOLOGY O RDERABLES Final Result PATHOLOGY [facility] 3rd Floor [place], [place] [phone] from Last 3 Months or Most Recently Relevant to Health Maintenance Insurance [facility] Advance Directives For more information, please contact: [phone] * Full Code (Latest Code Status on File) Date Activated Date Inactivated Comments 11/14/2023 5:19 PM 11/15/2023 7:00 PM * Full Code Date Activated Date Inactivated Comments 11/14/2023 9:40 AM 11/14/2023 5:19 PM * Full Code Date Activated Date Inactivated Comments 10/15/2022 2:44 PM 10/18/2022 7:48 PM Care Teams Pre Sales Architect Relationship Specialty Start Date End Date Pierre Cisneros PA [address] [place] [id number] PCP - General Internal Medicine 09/04/23
--- OUTSIDE RECORDS SUMMARY | 2024-04-26 21:21 | XMS_ITS | Clinical Summary ---
Author Organization [facility] Address [address] [place] [address] Phone Care Team Providers Care Site Auditor Name Role Phone Soila Santos MD Unavailable Echo Pollard MD Primary Care Provider [phone] Allergies Active Allergy Reactions Criticality Noted Date Comments Ciprofloxacin Nausea,Vomiting 01/01/2023 Reaction: Nausea, Vomiting, Latex Unknown 01/12/2011 rash rash Magnesium Salicylate Unknown 08/03/2010 Patient stated that after administration she felt like she was having an anxiety attack and got very overheated Patient stated that after administration she felt like she was having an anxiety attack and got very overheated Morphine Anaphylaxis,Swelli ng High 07/06/2010 Throat swelling Sulfa Antibiotics Nausea,Rash Low 07/06/2010 Medications acetaminophen-c odeine (TYLENOL #3) 300-30 MG Tablet TK 1 TO 2 TS PO Q 4 TO 6 H PRN Active butalbital-acet aminophen-caffe ine (FIORICET, ESGIC) 50-325-40 MG Tablet TK 1-2 TS PO Q 4-6 HOURS PRN Active calcium carbonate 1250 (500 Ca) MG Chewable Tablet Take 500 mg by mouth. 1 Active cloNIDine (CATAPRES) 0.2 MG Tablet Active clopidogrel (PLAVIX) 75 MG Tablet Take 75 mg by mouth. 3 Active cyanocobalamin (VITAMIN B-12) 1000 MCG/ML Solution Inject 1 mL every month by intramuscular route. 3 Active diazePAM (VALIUM) 5 MG Tablet Take 5 mg by mouth. 3 Active docusate sodium (COLACE) 100 MG Capsule Take 100 mg by mouth. 1 Active ziprasidone (GEODON) 40 MG Capsule Take 40 mg by mouth. 3 Active topiramate (TOPAMAX) 100 MG Tablet 3 Active rivaroxaban (XARELTO) 20 MG Tablet Take 20 mg by mouth. 3 Active Vit-Fe Fumarate-FA ( vitamin) 28-0.8 MG Tablet Take 1 Tablet by mouth daily. Active Polyethylene Glycol 3350 Powder Take 17 g by mouth. 1 Active ondansetron (ZOFRAN) 4 MG Tablet Take 4 mg by mouth. 1 Active ondansetron (ZOFRAN-ODT) 8 MG TABLET DISPERSIBLE Active OLANZapine (ZYPREXA) 5 MG Tablet Take 5 mg by mouth. 1 Active FLUoxetine (PROzac) 20 MG Capsule Take 20 mg by mouth. 1 Active hydrOXYzine (ATARAX) 50 MG Tablet Take 50 mg by mouth. 3 Active ibuprofen (MOTRIN) 600 MG Tablet Take 600 mg by mouth. 1 Active lamoTRIgine (LaMICtal) 25 MG Tablet Active meloxicam (MOBIC) 7.5 MG Tablet TK 1 T PO WITH FOOD QD Active nicotine (NICODERM CQ) 14 MG/24HR PATCH 24 HR Apply 1 patch every day by transdermal route for 14 days. Active buPROPion (Wellbutrin XL) 300 MG TABLET SR 24 HR XL tablet Take 300 mg by mouth every morning. Active ALPRAZolam (Xanax) 0.5 MG Tablet Take 0.5 mg by mouth. Active levothyroxine (SYNTHROID) 150 MCG Tablet Take 1 Tablet by mouth daily. 90 Tablet 1 4 Active Immunizations Immunization Administration Dates Next Due Hpv, Unspecified Formulation 02/28/2009, 05/07/2007,01/21/2007,2006 Influenza Vaccine,unspecifie d Formulation 01/16/2011 TDAP Vaccine 04/22/2009 Social History Tobacco Use Types Packs/Day Years Used Date Smoking Tobacco: Never Smokeless Tobacco: Never Tobacco Cessation:Counseling Given: Not [...] Sign Reading Time Taken Comments Blood Pressure 112/63 10/23/2023 1:19 PM CDT Pulse 88 10/23/2023 1:19 PM CDT Temperature 36.4 ??C (97.5 ??F) 10/23/2023 1:19 PM CD T Respiratory Rate 22 10/23/2023 1:19 PM CDT Oxygen Saturation 100% 10/23/2023 1:19 PM CDT Inhaled Oxygen Concentration - - Weight 60.3 kg (133 lb) 10/23/2023 1:19 PM CDT Height 160.7 cm (5' 3.25 ) 04/29/2023 1:09 PM CS T Body Mass Index 23.37 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 Plan of Treatment Health Maintenance Due Date Last Done Comments Hepatitis B Immunization (1 of 3 - 19+ 3-dose series) 2000 Pap Smear 2002 Cervical Cancer Screening (CCS) 08/19/2011 HPV/Cotest 08/19/2011 Td Immunization Every 10 Years (Adults With 1 Tdap) 04/22/2019 04/22/2009 Discussion re Starting/Frequency of Mammograms 2021 Influenza Immunization (#1) 2023 01/16/2011 SARS-COV-2 Immunization ( - 2023- season) 2023 05/06/2021, 12/13/2020 Respiratory Syncytial Virus (RSV) Immunization (Adult) (1 - 1-dose 75+ series) 2056 DTaP/Tdap/Td Immunization Discontinued 04/22/2009 Hepatitis C Virus (HCV) Screening Completed 08/30/2023 Meningococcal Immunization (ACWY) Aged Out No longer eligible based on patient's age to complete this topic Pneumococcal Immunization Combined Aged Out No longer eligible based on patient's age to complete this topic Rotavirus Immunization Aged Out No lo nger eligible based on patient's age to complete this topic Insurance MEDICAID [facility] Care Teams Site Auditor Relationship Specialty Start Date End Date Echo Pollard MD [facility] [place] [address] PCP - General Primary Care 01/01/23 Soila Santos MD [address] [id number] Consulting Physician Endocrinology 12/17/22
--- OUTSIDE RECORDS SUMMARY | 2024-04-26 21:21 | XMS_ITS | Data Portability ---
Author Organization [facility] [place] Address [address] [place] [address] Care Team Providers Care Hop Picker Name Role Phone SARAH CHARLES Primary Care Provider Assessment Encounter Date Assessment Date Assessment LastModified by Organization Details LastModified Time 10/30/2022 10/30/2022 need records re labs, imaging, specifically pap, EMB, uterine imaging discussed removal of fibroid in OR, vaginal approach. will need to hold anticoagulation for short time before, so will need to be after her original 3 mos of anticoagulation. pt would also like tubal sterilization at same time since she can no longer be on contraception. need to verify with halfway that she has her own decision making power. Discussed tubal ligation/steriliza tion in depth, including different methods, risks of , ectopic, regret, and alternate options. Questions answered. The indications, risks, and benefits and alternatives to surgery were discussed with the patient. I explained that the risks include, but are not limited to: bleeding and possible need for transfusion, infection, damage to adjacent structures including the bladder, ureters, bowel, or major vessels, need for additional surgery, and risks from anesthesia. I explained that there is also a chance that the symptoms may not improve after surgical intervention. She voices understanding and wishes to proceed. Will schedule following record review and consult with her PCP. will need preop clearance from PCP. Will contact pt re plan/FU after records received and reviewed. Not available 10/30/2022 22:06:01 Plan of Treatment Reminders Order Date Submit Date Provider Last Modified By Organization Details Last Modified Time Details Appointments None recorded. Lab hbcab (hepatitis B core Ab) igm, serum 2023 024 [facility] (Lab), [address], [place], [address], 4 21:15:54 HBsAg (hepatitis B surface Ag), serum 2023 024 [facility] (Lab), [address], [place], [address], 4 21:15:52 hepatitis C virus Ab, serum 2023 024 [facility] (Lab), [address], [place], [address], 4 21:15:53 unlisted lab - HIV 1/2 antigen/ant ibody, reflex confirmatio n 2023 024 [facility] (Lab), [address], [place], [address], 4 21:15:53 RPR (rapid plasma reagin), serum 2023 024 [facility] (Lab), [address], [place], [address], 4 21:15:54 [facility]inalysis, dipstick [facility] [address], [place], [address], 4 11:41:46 test, urine 2023 024 june Bush, [address], [place], [address], 4 11:27:35 Referral None recorded. Procedures None recorded. Surgeries None recorded. Imaging US, pelvis, complete 2023 024 SADIE Eleazar, [address], [place], [address], 4 05:00:53 MAMMO, screening, digital, bilateral 2023 024 [facility], [address], [place], [address], 4 05:00:53 US, transvagina l [email or web address] [place] [address], [address], [address], [place], [address], 4 09:06:07 US, pelvis 2023 024 [facility], [place], [address], 4 17:10:44 Medication Orders metronidazo le 0.75 % (37.5 mg/5 gram) vaginal gel 2023 024 [id number], [address] [facility], [place], [place], [id number], 4 11:40:07 Patient TargetsNo targets recorded. Patient InstructionsNo instructions recorded. Reason for Referral None Reported. Results Created Date Observation Date Name Description Value Unit Range Abnormal Flag Note LastModifiedBy Organization Detail LastModifiedTime 08/30/19 24 08/30/2023 CULTU RE: URINE result report SEE RESULT S BELOW Test: Cultu re: Urine Speci men Sourc e: Urine - Clean Catch Speci men Type: Urine Speci men Date: 2023 10:59 AM Resul t Date: 2023 6:13 AM Resul t Statu s: Final resul t Abnor mal: No Resul ting Lab: [facility] [address] [facility] [address] Tel: CULTU RE ----- ----- ----- --- No growt h in 1 day (dete ction level of 10,00 0 colon ies / ml.) Not Available [facility] (Lab) [address], [place], [address], 09/01/2023 07:16:49 08/30/19 24 08/30/2023 CT/GC AND TRICH OMONA S VAGIN YARITZA (RRNA ), SWAB chlamydia trachomatis, PCR Negati ve negati ve Not Available [facility] (Lab) [address], [place], [address], 09/02/2023 11:42:49 08/30/19 24 08/30/2023 CT/GC AND TRICH OMONA S VAGIN YARITZA (RRNA ), SWAB neisseria gonorrhoeae, PCR Negati ve negati ve Not Available [facility] (Lab) [address], [place], [address], 09/02/2023 11:42:49 08/30/19 24 08/30/2023 CT/GC AND TRICH OMONA S VAGIN YARITZA (RRNA ), SWAB trichomonas vaginalis ribosomal RNA (rrna) Negati ve negati ve Not Available [facility] (Lab) [address] [place], [address], 09/02/2023 11:42:49 08/30/19 24 08/30/2023 VAGIN ITIS/ VAGIN OSIS, DNA PROBE niko sp. detection, direct probe Negati ve negati ve Not Available [facility] (Lab) [address], [place], [address], 09/02/2023 11:42:50 08/30/19 24 08/30/2023 VAGIN ITIS/ VAGIN OSIS, DNA PROBE gardnerella vag. detection, direct probe Negati ve negati ve Not Available [facility] (Lab) [address], [place], [address], 09/02/2023 11:42:50 08/30/19 24 08/30/2023 VAGIN ITIS/ VAGIN OSIS, DNA PROBE trichomonas vag. detection, direct probe Negati ve negati ve Not Available [facility] (Lab) [address], [place], [address], 09/02/2023 11:42:50 08/30/19 24 08/30/2023 HEPAT ITIS B SURFA CE ANTIG EN hepatitis B surface antigen Non-re active non-re active This assay was perfo rmed using [employer] reage nts and test kits. Value s obtai felix with other assay metho ds or kits canno t be used inter lovelace eably . Not Available [facility] (Lab) [address], [place], [address], 09/02/2023 21:15:52 08/30/19 24 08/30/2023 HIV 1/2 ANTIG EN/AN TIBOD Y, REFLE X CONFI RMATI ON HIV antigen/anti body Nonrea ctive nonrea ctive HIV-1 antig en and HIV-1 /HIV- 2 antib odies were not detec anamika. No labor atory evide nce of HIV infec tion. Not Available [facility] (Lab) [address], [place], [address], 09/02/2023 21:15:53 08/30/19 24 08/30/2023 HEPAT ITIS C ANTIB LAYTON SCREE N, REFLE X TO CONFI RMATI ON hepatitis C antibody Non-re active non-re active Antib odies to HCV Not Detec anamika, does not exclu de the possi bilit y of expos ure to HCV. Not Available [facility] (Lab) [address], [place], [address], 09/02/2023 21:15:53 08/30/19 24 08/30/2023 RPR SCREE N, REFLE X TITER /CONF IRMAT ION RPR screen Nonrea ctive nonrea ctive Not Available [facility] (Lab) [address], [place], [address], 09/02/2023 21:15:54 08/30/19 24 08/30/2023 HEPAT ITIS B CORE, IGM hepatitis B core IgM antibody Negati ve negati ve Not Available [facility] (Lab) [address], [place], [address], 09/02/2023 21:15:54 08/30/19 24 08/30/2023 pregn marija test, urine HCG negati ve Not Available [facility] [address], [place], [address], 08/30/2023 11:21:14 09/06/19 24 09/09/2023 US, trans vagin al No observ ation record ed. [email or web address] [facility] [address], [place], [address], 09/09/2023 10:16:24 09/06/19 24 09/09/2023 US, pelvi s No observ ation record ed. [email or web address] [place] [address], [place], [address], 09/09/2023 10:16:15 09/06/19 24 09/06/2023 US, pelvi s No observ ation record ed. [email or web address] [facility] [address], [place], [address], 09/24/2023 13:40:13 Result Notes None recorded. Problems Name Problem SNOMED Code Status Onset Date Resolution Date Notes Provider Name and Address Organization Details Recorded Time History of deep vein thrombosi s 466568765 Active 2022 Becky Ramirez MD [address], [place], [address], [place] [facility] 3 14:46:37 Lupus anticoagu lant disorder 18329500 Active 2022 Becky Ramirez MD [address], [place], [address], [place] [facility] 3 14:46:51 Hypothyro idism 59178524 Active 2022 Becky Ramirez MD [address], [place], [address], [facility] 3 14:46:59 Mixed anxiety and depressiv e disorder 830029590 Active 2022 severe- in halfway for mental breakdow n Becky Ramirez MD [address], [place], [address], [facility] 3 14:47:27 History of loop electrosu rgical excision procedure 01362935146 102 Active 2022 Becky Ramirez MD [address], [place], [address], [facility] 3 21:51:42 Problem Notes None recorded. Procedures Surgical History Date Name Laterality Status Provider Name and Address Organization Details Recorded Time repair of nose completed Chanda Oliver [facility] 08/30/2023 11:12:31 Imaging Results Imaging Date Name Status LastModified by Organization Details LastModified Time 09/09/2023 [email or web address] [address], [place], [address], 09/09/2023 10:16:24 09/09/2023 US, pelvis completed [email or web address] [place] [address], [place], [address], 09/09/2023 10:16:15 09/06/2023 US, pelvis completed [email or web address] [facility] [address], [place], [address], 09/24/2023 13:40:13 Procedure Notes None recorded. Medical Equipment None Reported. Allergies Allergen ID Allergen Name Allergen Category Reaction Reaction Severity Criticality Documentation Date Start Date Code Code System Note Provider Name and Address Organization Details Recorded Time Substance with sulfonami de structure and antibacte rial mechanism of action (substanc e) medicatio n Not available Not available Not available 08/30/2023 87750 8003 SNOMED Chanda Oliver [facility], [facility] 4 11:03:31 90756 ciproflox acin medicatio n Not available Not available Not available 08/30/2023 2551 RxNorm Alyssa Ruggiero [facility] [address], [place], [address], [facility] 4 11:12:30 08252 magnesium salicylat e medicatio n Not available Not available Not available 08/30/2023 53520 RxNorm Alyssa Ruggiero [facility] [address], [place], [address], [facility] 4 11:26:57 65842 morphine medicatio n Not available Not available Not available 08/30/2023 7052 RxNorm Alyssa Ruggiero [facility] [address], [place], [address], [facility] 11:12:59 Medications Name Sig Start Date Stop Date Status Note LastModified by Organization Details LastModified Time ziprasidone 80 mg capsule 08/29 completed Not Available Not Available Not Available lamotrigine 150 mg tablet active Not Available Not Available Not Available levothyroxi ne 175 mcg tablet TAKE 1 TABLET BY MOUTH EVERY DAY IN THE MORNING active Not Available Not Available No t Available bupropion HCl SR 150 mg tablet,12 hr sustained-r elease TAKE 1 TABLET BY MOUTH TWICE DAILY DIRECTED active Not Available Not Available No t Available venlafaxine ER 37.5 mg capsule,ext ended release 24 hr 10/30 completed Not Available Not Available Not Available clonidine HCl 0.1 mg tablet active Not Available Not Available Not Available venlafaxine ER 75 mg capsule,ext ended release 24 hr 08/29 completed Not Available Not Available Not Available doxycycline hyclate 100 mg capsule 10/30 completed Not Available Not Available Not Available venlafaxine 75 mg tablet 08/29 completed Not Available Not Available Not Available nicotine 14 mg/24 hr daily transdermal patch 10/30 completed Not Available Not Available Not Available ketoconazol e 2 % shampoo 08/29 completed Not Available Not Available Not Available azithromyci n 250 mg tablet 08/28 completed Not Available Not Available Not Available alprazolam 1 mg tablet TAKE 1 TABLET BY MOUTH THREE TIMES DAILY NEEDED active Not Available Not Available No t Available fluconazole 150 mg tablet 10/30 completed Not Available Not Available Not Available hydrocodone 5 mg-acetamin ophen 325 mg tablet active Not Available Not Available No t Available ondansetron HCl 8 mg tablet 08/29 completed Not Available Not Available Not Available naltrexone 50 mg tablet TAKE 1/2 TABLET BY MOUTH TWICE DAILY DIRECTED active Not Available Not Available No t Available phenazopyri dine 200 mg tablet TAKE 1 TABLET BY MOUTH THREE TIMES DAILY FOR 2 DAYS. FOR PAINFUL URINATION 08/29 completed Not Available Not Available Not Available metronidazo le 0.75 % (37.5 mg/5 gram) vaginal gel INSERT 1 APPLICATO RFUL VAGINALLY EVERY DAY AT BEDTIME FOR 5 DAYS active Not Available Not Available No t Available prednisone 20 mg tablet 08/29 completed Not Available Not Available Not Available dexamethaso ne 6 mg tablet active Not Available Not Available Not Available rizatriptan 10 mg tablet 10/30 completed Not Available Not Available Not Available clonidine HCl 0.3 mg tablet active Not Available Not Available Not Available venlafaxine ER 150 mg capsule,ext ended release 24 hr 08/29 completed Not Available Not Available Not Available hydroxyzine pamoate 50 mg capsule TAKE 1 CAPSULE BY MOUTH TWICE DAILY NEEDED active Not Available Not Available No t Available topiramate 25 mg tablet 08/29 completed Not Available Not Available Not Available metronidazo le 500 mg tablet 10/30 completed Not Available Not Available Not Available hydroxyzine HCl 50 mg tablet 08/29 completed Not Available Not Available Not Available clopidogrel 75 mg tablet 08/29 completed Not Available Not Available Not Available ciprofloxac in 500 mg tablet TAKE 1 TABLET BY MOUTH EVERY 12 HOURS FOR 10 DAYS FOR DYSURIA 08/28 completed Not Available Not Available Not Available sulfamethox azole 800 mg-trimetho prim 160 mg tablet 10/30 completed Not Available Not Available Not Available ondansetron 8 mg disintegrat ing tablet 08/29 completed Not Available Not Available Not Available lamotrigine 25 mg tablet TAKE 2 TABLETS BY MOUTH EVERY DAY IN THE MORNING 09/02 completed Not Available Not Available Not Available levothyroxi ne 100 mcg tablet 10/30 completed Not Available Not Available Not Available levothyroxi ne 88 mcg tablet TAKE 1 TABLET BY MOUTH EVERY DAY DIRECTED 08/29 completed Not Available Not Available Not Available alprazolam 0.5 mg tablet 10/30 completed Not Available Not Available Not Available clonidine HCl 0.2 mg tablet TAKE 1 TABLET BY MOUTH EVERY DAY AT BEDTIME 09/02 completed Not Available Not Available Not Available alprazolam 0.25 mg tablet 10/30 completed Not Available Not Available Not Available ziprasidone 20 mg capsule 10/30 completed Not Available Not Available Not Available metoclopram mili 5 mg tablet 08/29 completed Not Available Not Available Not Available diazepam 2 mg tablet 10/30 completed Not Available Not Available Not Available hydrocodone 7.5 mg-acetamin ophen 325 mg tablet TAKE 1 TABLET BY MOUTH EVERY 4 HOURS NEEDED 08/29 completed Not Available Not Available Not Available venlafaxine 37.5 mg tablet 10/30 completed Not Available Not Available Not Available cyanocobala min (vit B-12) 1,000 mcg/mL injection solution 08/28 completed Not Available Not Available Not Available prednisone 50 mg tablet active Not Available Not Available Not Available lidocaine 5 % topical patch 08/29 completed Not Available Not Available Not Available promethazin e 25 mg tablet 10/30 completed Not Available Not Available Not Available nicotine 21 mg/24 hr daily transdermal patch 10/30 completed Not Available Not Available Not Available norgestimat e-ethinyl estradiol 0.18 mg/0.215mg/ 0.25mg-35 mcg(28)tabl et 08/29 completed Not Available Not Available Not Available montelukast 10 mg tablet 10/30 completed Not Available Not Available Not Available ziprasidone 40 mg capsule 08/29 completed Not Available Not Available Not Available ergocalcife rol (vitamin D2) 1,250 mcg (50,000 unit) capsule 08/29 completed Not Available Not Available Not Available methylpredn isolone 4 mg tablets in a dose pack 10/30 completed Not Available Not Available Not Available albuterol sulfate HFA 90 mcg/actuati on aerosol inhaler 10/30 completed Not Available Not Available Not Available dextroamphe tamine-amph etamine ER 30 mg 24hr capsule,ext end release TAKE 1 CAPSULE BY MOUTH EVERY DAY IN THE MORNING 08/29 completed Not Available Not Available Not Available ondansetron 4 mg disintegrat ing tablet DISSOLVE 1 TABLET ON THE TONGUE THREE TIMES DAILY FOR 10 DAYS NEEDED 08/29 completed Not Available Not Available Not Available topiramate 100 mg tablet TAKE 1 TABLET BY MOUTH TWICE DAILY DIRECTED 08/29 completed Not Available Not Available Not Available fluticasone propionate 50 mcg/actuati on nasal spray,suspe nsion active Not Available Not Available Not Available medroxyprog esterone 150 mg/mL intramuscul ar suspension 10/30 completed Not Available Not Available Not Available lamotrigine 100 mg tablet TAKE 1 TABLET BY MOUTH EVERY DAY IN THE MORNING FOR DEPRESSIO N OR ANXIETY 08/29 completed Not Available Not Available Not Available diazepam 5 mg tablet active Not Available Not Available No t Available metoclopram mili 10 mg tablet 08/29 completed Not Available Not Available Not Available levothyroxi ne 112 mcg tablet 10/30 completed Not Available Not Available Not Available amoxicillin 875 mg-potassiu m clavulanate 125 mg tablet 10/30 completed Not Available Not Available Not Available nicotine 7 mg/24 hr daily transdermal patch 10/30 completed Not Available Not Available Not Available hydroxyzine pamoate 25 mg capsule 10/30 completed Not Available Not Available Not Available enoxaparin 60 mg/0.6 mL subcutaneou s syringe 08/29 completed Not Available Not Available Not Available medroxyprog esterone 150 mg/mL intramuscul ar syringe 10/30 completed Not Available Not Available Not Available aripiprazol e 5 mg tablet 10/30 completed Not Available Not Available Not Available bupropion HCl XL 300 mg 24 hr tablet, extended release 09/02 completed Not Available Not Available Not Available bupropion HCl XL 150 mg 24 hr tablet, extended release 08/28 completed Not Available Not Available Not Available topiramate 50 mg tablet active Not Available Not Available Not Available Focalin XR 20 mg capsule,ext ended release active Not Available Not Available Not Available Allergy Relief (cetirizine ) 10 mg tablet 10/30 completed Not Available Not Available Not Available levonorgest rel 1.5 mg tablet 10/30 completed Not Available Not Available Not Available Xarelto 20 mg tablet 08/29 completed Not Available Not Available Not Available Linzess 145 mcg capsule 08/29 completed Not Available Not Available Not Available Vraylar 1.5 mg capsule 08/29 completed Not Available Not Available Not Available Mibelas 24 Fe 1 mg-20 mcg (24)/75 mg (4) chewable tablet 10/30 completed Not Available Not Available Not Available Daily-Maria Guadalupe (with folic acid) 400 mcg tablet 10/30 completed Not Available Not Available Not Available Vitals Date Recorded Body height Body mass index (BMI) Body weight Systolic blood pressure Diastolic blood pressure Provider Name and Address Organization Details Last Updated DateTime 10/30/2022 162.56 cm 24.2 kg/m2 86272.52 g 115 mm[Hg] 82 mm[Hg] [facility] 3 14:15:25 Date Recorded Body height Body mass index (BMI) Body weight Systolic blood pressure Diastolic blood pressure Provider Name and Address Organization Details Last Updated DateTime 08/30/2023 162.56 cm 23 kg/m2 53984.38 g 107 mm[Hg] 71 mm[Hg] [facility] 4 10:59:25 Date Recorded Body height Body mass index (BMI) Body weight Systolic blood pressure Diastolic blood pressure Provider Name and Address Organization Details Last Updated DateTime 09/03/2023 162.56 cm 23.2 kg/m2 81103.97 g 105 mm[Hg] 70 mm[Hg] [facility] 14:44:23 Social History Question Answer Notes LastModified by Organizat ion Details LastModified Time Tobacco Smoking Status Current Every Day Smoker SAHRA Starr [address], [place], [address], [place] [facility] 09/03/2023 15:22:46 What Is Your Level Of Alcohol Consumption? None Information not available 10/30/2022 Are You Blind Or Do You Have Difficulty Seeing? No Information not available 08/30/2023 What Is Your Level Of Caffeine Consumption? Occasional Information not available 08/30/2023 In The 14 Days Before Symptom Onset, Have You Had Close Contact With A Laboratory-confir med COVID-19 While That Case Was Ill? No Information not available 08/30/2023 In The 14 Days Before Symptom Onset, Have You Had Close Contact With A Person Who Is Under Investigation For COVID-19 While That Person Was Ill? No Information not available 08/30/2023 Have You Been To An Area Known To Be High Risk For COVID-19? No Information not available 08/30/2023 Are You Deaf Or Do You Have Serious Difficulty Hearing? No Information not available 08/30/2023 What Type Of Diet Are You Following? REGULAR Information not available 08/30/2023 What Is The Highest Grade Or Level Of School You Have Completed Or The Highest Degree You Have Received? [id number] Information not available 08/30/2023 What Is Your Occupation? Unfortunately Unemployed Information not available 08/30/2023 Are There Any Guns Present In Your Home? No Information not available 08/30/2023 Do You Use Your Seat Belt Or Car Seat Routinely? Yes Information not available 08/30/2023 How Much Tobacco Do You Smoke? No Information not available 08/30/2023 Do You Feel Stressed (tense, Restless, Nervous, Or Anxious, Or Unable To Sleep At Night)? [id number] Information not available 08/30/2023 Do You Use Any Illicit Or Recreational Drugs? No Information not available 10/30/2022 Do You Use Sunscreen Routinely? No [employer] Information not available 08/30/2023 Has Tobacco Cessation Counseling Been Provided? No Information not available 10/30/2022 Have You Used IV Drugs? No [employer] Information not available 08/30/2023 Do You Or Have You Ever Used Any Other Forms Of Tobacco Or Nicotine? No Information not available 10/30/2022 Sex: Unknown Functional Status Question Answer Note LastModified by Organization D etails LastModified Time Are you able to walk? YESWOREST [employer] community Information not available 08/30/2023 What is your exercise level? None [employer] Information not available 08/30/2023 Mental Status None recorded. Family History Relationship Description Onset Age of this Age Resolved Age Notes LastModified by Organization Details LastModified Time Father Asthma [email or web address] Not available 13:56:52 Father Hypertensive disorder [email or web address] Not available 2022 13:57:05 Father Disorder of thyroid gland [email or web address] Not available 2022 13:57:36 Mother Hypertensive disorder [email or web address] Not available 2022 13:57:05 Notes:grandmother with BC? Medical History Condition Response Allergies (Food, seasonal, environmental ) N Other Y Drug/Latex Allergies/Reactions N Blood Transfusion N Breast Cancer N Dermatologic Disorders N Lung Disease N Defects or Inherited Disease N Breast Problem N Gestational Diabetes N Hematologic disorders Y Anesthesia Complications N History of STI N Deep Vein Thrombosis Y Polycystic ovary syndrome N Anxiety Disorder N Autoimmune disease Y Arthritis N Polyps N Infertility N Acid Reflux (GERD) N History of abnormal pap N Cancer N Varicosities N Stroke Y Neurologic/Epilepsy Y Endometriosis N High Cholesterol Y Fibromyalgia N Headaches N Kidney Disease N Heart Problems N Thyroid Problems Y Kidney or Bladder Problems N GI Problems N Eating Disorder N Anemia Y Art (IVF or FET) N Psychiatric Illness N Ovarian Cancer N Diabetes N Pulmonary (TB, Asthma) N Hepatitis/Liver Disease N No Past Medical History N Eczema N Urinary Tract Infection N Abuse/Domestic Violence N Asthma N Trauma/Violence N Depression/ depression N Heart Disease N Pre-Eclampsia N Hypertension Y Osteoporosis N Thrombophilias N Gynecological History Statement/Question Response Abnormal Pap Y Date of Last Mammogram Date of LMP 08/17/2023 On BCP's at Conception? Y Was last menstrual period normal N STIs/STDs N HPV Vaccine N Colposcopy Duration of Flow (days) 47 Current Control Method None Age at First Child 22 Are cycles usually normal Y Date of Last Colonoscopy Frequency of Cycle (Q days) 29 Sexually Active? Y Menses Monthly Y Date of DEXA bone scan Age of first menstrual cycle 15 Date of Last Pap Smear Sexual Problems? Y LMP Approximate Obstetrics History GPAL:G 7 P 3 0 4 3 Type Value Full Term 3 Induced 1 Spontaneous 3 Living 3 Total 7 Past Encounters Encounter ID Performer Location Encounter Start Date Encounter Closed Date Diagnosis/Indication Diagnosis SNOMED-CT Code Diagnosis ICD10 Code [id number] Becky Ramirez MD [place] [address],[place] [address] 10/30/2022 13:32:28 10/31/2022 10:34:27 Cervical fibroid 424840063 D25.9 History of deep vein thrombosis 331044088 Z86.718 History of loop electrosurgical excision procedure 8513825547 9102 Z98.890 Lupus anti coagulant disorder 83996808 D68.62 Mixed anxi ety and depressive disorder 861620730 F41.8 Pain in pelvis 60843063 R10.2 Anemia 645533336 D64.9 Irregular periods 481414 07 N92.6 Sterilizat ion requested 128996268 Z30.2 [id number] SAHRA Starr [facility] [address],[facility] [place] [address] 08/30/2023 10:55:52 08/30/2023 11:42:01 Urinary symptoms 788448200 R39.9 Screening procedure 2012 5006 Z13.9 Vaginitis 63338360 N76.0 Venereal d isease screening 547459179 Z11.3 Sexually t ransmitted infectious disease 5605043 A64 [id number] SAHRA Starr [facility] [address],[facility] [place] [address] 09/03/2023 14:35:05 09/03/2023 15:26:16 Gynecologic examination 10186827 Z01.419 Screening for malignant neoplasm of breast 236483952 Z12.39 Lesion of cervix 3263506 01 N88.9 [id number] Jaja Calvo [facility] [address] [address] 09/06/2023 16:11:39 09/06/2023 16:59:46 Pain in pelvis 15331665 R10.2 Health Concerns Section Related Observation LastModified by Organization Detai ls LastModified Time None Recorded Concern Status LastModified by Organization Details LastModified Time None Recorded Advance Directives Directive None Recorded Payers Encounter Date Sequence Insurance Name Policy Number Policy Hager Covered Member ID Hager Member ID Guarantor Name 10/30/2022 1 [facility] ON OR AFTER 10/20/20 (MEDICAID REPLACEMENT - HMO) Sahra Parks [id number] Sahra Parks 08/30/2023 1 [facility] ON OR AFTER 10/20/20 (MEDICAID REPLACEMENT - HMO) Sahra Parks [id number] Sahra Parks 09/03/2023 1 [facility] ON OR AFTER 10/20/20 (MEDICAID REPLACEMENT - HMO) Sahra Parks [id number] Sahra Parks 09/06/2023 1 [facility] ON OR AFTER 10/20/20 (MEDICAID REPLACEMENT - HMO) Sahra Parks [id number] Sahra Parks Notes Date Note Type Note Provider Name and Address Organization Details Recorded Time 3 text/html Patient is a 42yo who presents for several concerns. The patient lives at a halfway in [place] due to a mental breakdown a couple years ago. She has a complicated psychiatric history and is a poor historian. 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 She reports bad cramping in her pelvis and was seen in ED in [place] for this in August and was treated for PID. She was found to have a cervical mass at this time. THen she was admitted to [facility] end of September for 3 days with LLE DVT and had pap and EMB and was found to be anemic and to be carrier of lupus anticoagulant. She claims she was positive for this before also. Periods are irregular, every 3 weeks to 2 mos with extra spotting in between. NO ED or hospital records are available yet despite numerous calls and releases sent. She also claims she had a DVt in my brain in 2019 but they told her it wasn't a stroke. At age 17 she had a procedure on her cervix to remove a large part of it due to precancer. She bled a lot and had to be transfused. Depression: yes Domestic violence: denies Becky Ramirez MD [address], [place], [address], [facility] 10/30/2022 22:06:52 4 text/html 43yopresents for evaluation of vaginal irritation and white dischargesymptoms started 1 month agoSA with new partner recently, uses condoms sometimeswhite/thick dischargevulvar irritation, odorhas been using new vagisil pH washsome irritation with urination neg n/v/fneg pelvic painneg flu-like symptoms unsure of when last pap was 1-2 yrs ago per pth/o abnormal paps, procedure at age 17h/o fibroids medical hx: h/o DVT, Lupus, HTN, hypothyroidism, hypercholesterolemia SAHRA Starr [address], [place], [address], [facility] 08/30/2023 11:41:23 4 text/html Annual GYNReported bypatient.Menstrual cycle:Normal menses Urinary symptoms:No hematuria; No incontinence Vulva:No genital lesion Vagina:Normal vaginal discharge Breast:No breast pain; No breast lump; No nipple discharge Current Contraception:Satisfied with current contraception; Condoms Sexual complaints:No sexual complaints; No pain during intercourse; Normal libido Menopausal Symptoms:No menopausal symptoms; Normal vaginal lubrication Psychological symptoms:No depression; No anxiety; No PMDD Preventive measures:Encourage self breast examination; Encourage regular exercise; Encourage no tobacco use; Encourage regular mammograms starting age 41Notes:43yo [id number] - condomsnormal/monthly periods currentlyh/o abnormal pap smears in the past requiring procedure at 17 per pt, unsure if she has had any abnormal paps since. Last pap 1-2 yrs ago per pt - normal.mammogram last 2 yrs ago see in ED for AUB/pelvic pain 09/2022 per pt - told she had a cervical mass at that time on imaging medical hx: h/o DVT, Lupus, HTN, hypothyroidism, hypercholesterolemia SAHRA Starr [address], [place], [address], [facility] 09/03/2023 15:25:12 OBGyn Episode Ob Episode Information Episode Created Date Number of Fetuses Patient Bloodtype Patient rh Status Prepregnancy Weight lbs Domestic Partner Domestic Partner Phone Father Name Network Contract Manager Status 10/31/19 23 1 CLOSED Fetus Data First Name Last Name Admitted to NICU Weight (g) Sex Living Outcome Pediatric Complications Fetus ID Race Codes Race Delivery Type 2522.87 [id number] M Vaginal Delivery Devin Calculation DEVIN Calculation Method Initial Devin Date Initial Exam Date Initial Exam Provider Initial Ultrasound Date Last Menstrual Period Date Ultra Sound Weeks Gestation Conception by IVF Embryo Age at Transfer Date of Transfer 0 Eighteen To Twenty Week Devin Update Ultra Sound Date Fundal Height At Umbil Quickening Date Ultra Sound Latest Weeks Gestation Final Devin Confirmed By Final Devin Confirmed Date Final Devin Date Ultra Sound Latest Days Gestation 0 0 Menstrual History Last Menstrual Date Menses Monthly On Bcp Conception Prior Menses Frequency Hcg Plus Date Menarche Onset Age Delivery Information Delivery Date Delivery Type Labor Anesthesia Weeks Gestation Incision Type Labor Labor Length Hrs Delivered By Post Complications Tubal Sterilization Discharge Date Comments 3 Discharge Information Feeding Method Contraceptive Method Maternal HG B and HCT Levels Ob Episode Information Episode Created Date Number of Fetuses Patient Bloodtype Patient rh Status Prepregnancy Weight lbs Domestic Partner Domestic Partner Phone Father Name Network Contract Manager Status 10/31/19 23 1 CLOSED Fetus Data First Name Last Name Admitted to NICU Weight (g) Sex Living Outcome Pediatric Complications Fetus ID Race Codes Race Delivery Type F Vaginal Delivery Devin Calculation DEVIN Calculation Method Initial Devin Date Initial Exam Date Initial Exam Provider Initial Ultrasound Date Last Menstrual Period Date Ultra Sound Weeks Gestation Conception by IVF Embryo Age at Transfer Date of Transfer 0 Eighteen To Twenty Week Devin Update Ultra Sound Date Fundal Height At Umbil Quickening Date Ultra Sound Latest Weeks Gestation Final Devin Confirmed By Final Devin Confirmed Date Final Devin Date Ultra Sound Latest Days Gestation 0 0 Menstrual History Last Menstrual Date Menses Monthly On Bcp Conception Prior Menses Frequency Hcg Plus Date Menarche Onset Age Delivery Information Delivery Date Delivery Type Labor Anesthesia Weeks Gestation Incision Type Labor Labor Length Hrs Delivered By Post Complications Tubal Sterilization Discharge Date Comments 1 Discharge Information Feeding Method Contraceptive Method Maternal HG B and HCT Levels Ob Episode Information Episode Created Date Number of Fetuses Patient Bloodtype Patient rh Status Prepregnancy Weight lbs Domestic Partner Domestic Partner Phone Father Name Network Contract Manager Status 10/31/19 23 1 CLOSED Fetus Data First Name Last Name Admitted to NICU Weight (g) Sex Living Outcome Pediatric Complications Fetus ID Race Codes Race Delivery Type M Vaginal Delivery Devin Calculation DEVIN Calculation Method Initial Devin Date Initial Exam Date Initial Exam Provider Initial Ultrasound Date Last Menstrual Period Date Ultra Sound Weeks Gestation Conception by IVF Embryo Age at Transfer Date of Transfer 0 Eighteen To Twenty Week Devin Update Ultra Sound Date Fundal Height At Umbil Quickening Date Ultra Sound Latest Weeks Gestation Final Devin Confirmed By Final Devin Confirmed Date Final Devin Date Ultra Sound Latest Days Gestation 0 0 Menstrual History Last Menstrual Date Menses Monthly On Bcp Conception Prior Menses Frequency Hcg Plus Date Menarche Onset Age Delivery Information Delivery Date Delivery Type Labor Anesthesia Weeks Gestation Incision Type Labor Labor Length Hrs Delivered By Post Complications Tubal Sterilization Discharge Date Comments 0 Discharge Information Feeding Method Contraceptive Method Maternal HG B and HCT Levels
--- OUTSIDE RECORDS SUMMARY | 2024-04-26 21:21 | XMS_ITS | Encounter Summary ---
Author Organization [facility] Address [address] [place] [address] Phone Care Team Providers Care Contact Center Agent Name Role Phone Soila Santos MD Unavailable Echo Pollard MD Primary Care Provider [phone] Reason for Visit * Reason Comments Thyroid Problem Encounter Details Date Type Department Care Team (Late st Contact Info) Description 10/23/2023 1:45 PM CDT Office Visit [facility] - Endocrinology - [place] [address] [place] [address] Soila Santos MD [address] [address] Hypothyroidism, unspecified type (Primary Dx); Weight gain Discharge Disposition: Discharged to home or Selfcare [...] (133 lb) 10/23/2023 1:19 PM CDT Height - - Body Mass Index 23.37 04/29/2023 1:09 PM [employer] SALESPERSON documented in this encounter Patient Instructions * Patient Instructions* Soila Santos MD - 10/23/2023 1:45 PM CDT Please take levothyroxine 175 mcg daily on an empty stomach with water in the morning Please check thyroid function test today Additional steps and management will then be determined when the aforementioned laboratory result is available for review. Follow up visit in 3 months documented in this encounter Progress Notes * Soila Santos MD - 10/23/2023 1:45 PM CDT Subjective&Objective: Ms. Parks is a 43-year-old woman who comes to the Endocrinology Offices to review management of hypothyroidism. Other pertinent health history includes anxiety, DVT, FARIBA, and seizure disorder. The patient is reluctant to reduce levothyroxine dose due to potential weight gain. Presently, she takes levothyroxine 175 mcg daily for management of hypothyroidism. The patient reports that she takes thyroxine on an empty stomach with water as intended. The patient denied missing doses, and she also denied symptoms that would be worrisome for thyroid hormone over-replacement or u nder-replacement. Serum TSH checked in April 2023 was 0.011 mIU/L (reference range 0.3 to 5). Simultaneously measured free T4 was 1.1 ng/mL (reference range 0.7 to 1.9). Physical Exam Vitals: 10/23/23 1319 BP: 112/63 BP Location: Right Arm BP Position: Sitting BP Cuff Size: Regular Pulse: 88 Resp: 22 Temp: 97.5 ??F (36.4 ??C) TempSrc: Temporal SpO2: 100% Weight: 133 lb (60.3 kg) Constitutional: appears well-developed and well-nourished. No acute distress. Eyes: EOM are normal, Not icteric Neck: Normal range of motion, Neck supple Cardiovascular: Normal rate and regular rhythm Pulmonary/Chest: Effort normal and breath sounds normal Neurological: No significant tremor noted on arms extended DIAGNOSTIC DATA: Lab Results Component Value Date TSH 0.011 (L) 04/29/2023 T4FREE 1.1 04/29/2023 Assessment and Plan Assessment Ms. Parks is a middle-aged woman with hypothyroidism who appears to be clinically euthyroid. Test result and side effect from over-replacement were discussed with her at great length. Arrangement will be made for thyroid function test. Additional steps and management will then be determined when the aforementioned laboratory result is available for review. PLAN: Continue levothyroxine 175 mcg daily Check thyroid function test Further plan based on #2 RTC in 3 months Weight gain PLAN: 1. Low carb and calorie diet 2. Avoid snack and beverage between meal and at bedtime 3. Aerobic exercise at leas 30 min a day Total time spent on this encounter on this date of service, including pre-visit review of separately obtained history, czis-hg-caac interaction performing medically appropriate physical exam, patientcounseling/education, interpretation of diagnostic results, care coordination and documentation was41 minute Soila Santos MD 10/23/23 documented in this encounter Plan of Treatment Scheduled Orders Name Type Priority Associated Diagnoses Orde r Schedule THYROID STIMULATING HORMONE (TSH) Lab Routine Hypothyroidism, unspecified type Expected: 01/22/2024, Expires: 07/22/2024 THYROXINE (T4) FREE Lab Routine Hypothyroidism, unspecified type Expected: 01/22/2024, Expires: 07/22/2024 documented as of this encounter Visit Diagnoses Diagnosis Hypothyroidism, unspecified type- Primary Weight gain Abnormal weight gain documented in this encounter Care Teams Contact Center Agent Relationship Specialty Start Date End Date Echo Pollard MD [address] [place] [address] [place] [address] PCP - General Primary Care 01/01/23 Soila Santos MD [address] [address] Consulting Physician Endocrinology 12/17/22 documented as of this encounter
--- OUTSIDE RECORDS SUMMARY | 2024-04-26 21:21 | XMS_ITS | Encounter Summary ---
Author Organization [facility] Address [address] [place] [address] Phone Care Team Providers Care Tool Turret Lathe Set Up Operator Name Role Phone Soila Santos MD Unavailable Echo Pollard MD Primary Care Provider [phone] Reason for Visit * Reason Comments Follow-up Encounter Details Date Type Department Care Team (Late st Contact Info) Description 04/29/2023 1:15 PM FAMILY SERVICE WORKER Office Visit [facility] - Endocrinology - [place] [address] [place] [address] Soila Santos MD [address] [address] Hypothyroidism, unspecified type (Primary Dx); [...] Sign Reading Time Taken Comments Blood Pressure 116/72 04/29/2023 1:09 PM FAMILY SERVICE WORKER Pulse 78 04/29/2023 1:09 PM FAMILY SERVICE WORKER Temperature 37.1 ??C (98.7 ??F) 04/29/2023 1:09 PM CS T Respiratory Rate 16 04/29/2023 1:09 PM FAMILY SERVICE WORKER Oxygen Saturation 98% 04/29/2023 1:09 PM FAMILY SERVICE WORKER Inhaled Oxygen Concentration - - Weight 63.1 kg (139 lb 3.2 oz) 04/29/2023 1:09 P M FAMILY SERVICE WORKER Height 160.7 cm (5' 3.25 ) 04/29/2023 1:09 PM CS T Body Mass Index 24.46 04/29/2023 1:09 PM FAMILY SERVICE WORKER documented in this encounter Patient Instructions * Patient Instructions* Soila Santos MD - 04/29/2023 1:15 PM FAMILY SERVICE WORKER Please take levothyroxine 175 mcg daily on an empty stomach with water in the morning Please check thyroid function test today Additional steps and management will then be determined when the aforementioned laboratory result is available for review. Follow up visit in 3 months LY SERVICE WORKER documented in this encounter Progress Notes * Soila Santos MD - 04/29/2023 1:15 PM CST Subjective&Objective: Ms. Parks is a 42-year-old woman who returns to the Endocrinology Offices to review thyroid function test result and discuss management of hypothyroidism. Other pertinent health history includes anxiety, DVT, seizure disorder, and FARIBA. The patient takes levothyroxine 175 mcg daily for management of hypothyroidism. The patient reportsthat she takes thyroxine on an empty stomach with water as intended. The patient denied missing doses, and she also denied symptoms that would be worrisome for thyroid hormone over-replacement or under-replacement. Serum TSH checked in December 2022 was 0.053 mIU/L (reference range 0.3 to 5). Simultaneously measured free T4 was 1.6 ng/mL (reference range 0.7 to 1.9). Her thyroid function test result was consistent with over-replacement of levothyroxine. However, she was reluctant to reduce levothyroxine because she was concerned about weight gain. Physical Exam Vitals: 04/29/23 1309 BP: 116/72 Pulse: 78 Resp: 16 Temp: 98.7 ??F (37.1 ??C) SpO2: 98% Weight: 139 lb 3.2 oz (63.1 kg) Height: 5' 3.25 (1.607 m) Constitutional: appears well-developed and well-nourished. No acute distress. Eyes: EOM are normal, Not icteric Neck: Normal range of motion, Neck supple Pulmonary/Chest: Effort normal DIAGNOSTIC DATA: Latest Reference Range & Units 01/01/23 11:27 T4 FREE 0.7 - 1.9 ng/dL 1.6 TSH 0.300 - 5.000 mIU/L 0.053 (L) (L): Data is abnormally low Assessment and Plan Assessment Ms. Parks is a middle-aged woman with hypothyroidism who appears to be clinically euthyroid, but TSH checked in December and September 2022 was below the reference range. However, the patient has been highly reluctant to reduce levothyroxine. Test result and treatment consideration were discussed with her at great length. Arrangement will be made for thyroid function test. Additional steps and management will then be determined when the aforementioned laboratory result is available for review. PLAN: 1. Continue LT4 175 mcg daily 2. Check thyroid function test 3. Further plan based on #2 4. RTC in 3 months Total time spent on this encounter on this date of service, including pre-visit review of separately obtained history, wctt-bw-czzt interaction performing medically appropriate physical exam, patientcounseling/education, interpretation of diagnostic results, care coordination and documentation was30 minute Soila Santos MD 04/29/2023 LY SERVICE WORKER documented in this encounter Plan of Treatment Not on file documented as of this encounter Results * THYROXINE (T4) FREE (04/29/2023 2:07 PM FAMILY SERVICE WORKER) T4 FREE 1.1 0.7 - 1.9 ng/dL 04/29/2023 4:18 PM FAMILY SERVICE WORKER [facility] Blood Venipuncture / Unknown 04/29/2023 2:07 PM FAMILY SERVICE WORKER 04/29/2023 3:35 PM FAMILY SERVICE WORKER us Soila Santos MD CHEMISTRY ORDERABLES Final Resul t [facility] [address] [place] [address] * (ABNORMAL) THYROID STIMULATING HORMONE (TSH) (04/29/2023 2:07 PM FAMILY SERVICE WORKER) TSH 0.011(L) 0.300 - 5.000 mIU/L 04/29/2023 4:18 PM FAMILY SERVICE WORKER [facility] Blood Venipuncture / Unknown 04/29/2023 2:07 PM FAMILY SERVICE WORKER 04/29/2023 3:35 PM FAMILY SERVICE WORKER us Soila Santos MD CHEMISTRY ORDERABLES Final Resul t Performing Organization Address [facility] Co de Phone Number [facility] [address] [place] [address] documented in this encounter Visit Diagnoses Diagnosis Hypothyroidism, unspecified type- Primary Weight gain Abnormal weight gain documented in this encounter Care Teams Tool Turret Lathe Set Up Operator Relationship Specialty Start Date End Date Echo Pollard MD [facility] [place] [address] PCP - General Primary Care 01/01/23 Soila Santos MD [address] [address] Consulting Physician Endocrinology 12/17/22 documented as of this encounter
--- OUTSIDE RECORDS SUMMARY | 2024-04-26 21:21 | XMS_ITS | Encounter Summary ---
Author Organization [employer] Care Team Providers Care Prefinish Operator Name Role Phone Soila Santos MD Unavailable Echo Pollard MD Primary Care Provider [phone] Encounter Details Date Type Department Care Team (Latest Contact Info) Description 04/29/2023 Travel Social History Tobacco Use Types Packs/Day [...] on filedocumented in this encounter Care Teams Prefinish Operator Relationship Specialty Start Date End Date Echo Pollard MD [address] [place] [address] [place] [address] PCP - General Primary Care 01/01/23 Soila Santos MD [address] [address] Consulting Physician Endocrinology 12/17/22 documented as of this encounter
--- OUTSIDE RECORDS SUMMARY | 2024-04-26 21:21 | XMS_ITS | Encounter Summary ---
Author Organization [employer] Care Team Providers Care Intensivist Name Role Phone Soila Santos MD Unavailable Echo Pollard MD Primary Care Provider [phone] Encounter Details Date Type Department Care Team (Latest Contact Info) Description 01/01/2023 Travel Social History Tobacco Use Types Packs/Day [...] AM CDT documented as of this encounter Plan of Treatment Not on file documented as of this encounter Visit Diagnoses Not on filedocumented in this encounter Care Teams Intensivist Relationship Specialty Start Date End Date Echo Pollard MD [address] [place] [address] [place] [address] PCP - General Primary Care 01/01/23 Soila Santos MD [address] [address] Consulting Physician Endocrinology 12/17/22 documented as of this encounter
--- OUTSIDE RECORDS SUMMARY | 2024-04-26 21:21 | XMS_ITS | Encounter Summary ---
Author Organization [facility] Address [address] [place] [address] Phone Care Team Providers Care Press Washer Name Role Phone Soila Dykes MD Unavailable Echo Pollard MD Primary Care Provider [phone] Reason for Visit * Reason Onset Date Comments Results 12/09/2023 Medication Management 12/09/2023 Encounter Details Date Type Department Care Team (Late st Contact Info) Description 12/09/2023 Telephone [facility] - Endocrinology - [place] [address] [place] [address] Soila Dykes MD [address] [address] Results; Medication Management Social History [...] as of this encounter Miscellaneous Notes * Addendum Note - Soila Dykes MD - 12/11/2023 4:18 PM CDTAddended by: SOILA DYKES on: 12/11/2023 04:18 PM Modules accepted: Orders * Telephone Encounter - Soila Dykes MD - 12/11/2023 4:17 PM CDT Rx sent PLAN: Take levothyroxine 150 mcg daily Check thyroid function test in 6 weeks - lab order is ready * Telephone Encounter - Soila Dykes MD - 12/09/2023 3:47 PM CDT Please inform her that thyroid function test result was consistent with over- replacement of levothyroxine. PLAN: Decrease levothyroxine from 175 mcg to 150 mcg daily - new Rx sent Check thyroid function test in 6 weeks 12/06/23 TSH <0.015 (0.46-4.6) Free T4 2.19 (0.79-2.19) documented in this encounter Plan of Treatment Scheduled Orders Name Type Priority Associated Diagnoses Orde r Schedule THYROID STIMULATING HORMONE (TSH) Lab Routine Hypothyroidism, unspecified type Expected: 03/09/2024, Expires: 09/06/2024 THYROXINE (T4) FREE Lab Routine Hypothyroidism, unspecified type Expected: 03/09/2024, Expires: 09/06/2024 documented as of this encounter Visit Diagnoses Diagnosis Hypothyroidism, unspecified type- Primary documented in this encounter Care Teams Press Washer Relationship Specialty Start Date End Date Echo Pollard MD [address] [place] [address] PCP - General Primary Care 01/01/23 Soila Dykes MD [address] [address] Consulting Physician Endocrinology 12/17/22 documented as of this encounter
--- OUTSIDE RECORDS SUMMARY | 2024-04-26 21:22 | XMS_ITS | Encounter Summary ---
Author Organization [facility] Healthcare Address [address] [place] [address] Care Team Providers Care Level Vial Inspector And Tester Name Role Phone Pierre Cisneros Primary Care Provider + Encounter Details Date Type Department Care Team (Late st Contact Info) Description 01/09/2024 Telephone [facility] Radiology [address] [place] [address] Becky Mtz, RN Social History Tobacco Use Types Packs/Day Years Used Date Smoking Tobacco: Former Cigarettes Smokeless Tobacco: Never Alcohol Use Standard [...] on file Legal Sex Female 7:09 AM [employer] Gender Identity Female 10/24/2023 9:52 AM CDT Sexual Orientation Straight 10/24/2023 9: 52 AM CDT documented as of this encounter Miscellaneous Notes * Telephone Encounter - Becky Mtz, RN - 01/09/2024 3:[address] Garcia: Let's setup a 6 month follow up left leg venous duplex US and telehealth visit. Targeting mid to late June 2024. [facility] will call to arrange when June 2024 schedule is released. documented in this encounter Plan of Treatment Not on file documented as of this encounter Visit Diagnoses Not on filedocumented in this encounter Care Teams Level Vial Inspector And Tester Relationship Specialty Start Date End Date Pierre Cisneros PA [address] [place] [id number] PCP - General Internal Medicine 09/04/23 documented as of this encounter
--- OUTSIDE RECORDS SUMMARY | 2024-04-26 21:22 | XMS_ITS | Encounter Summary ---
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 Role Phone Pierre Cisneros Primary Care Provider + Reason for Visit * Auth/Cert (Routine) Specialty Diagnoses / Procedures Referred By Chaddac t Referred To Contact Diagnoses May-Thurner syndrome Procedures n/a Referral ID Status Reason Start Date Expiration Date Visits Re quested Visits Authorized [id number] 1 1 Encounter Details Date Type Department Care Team (Late st Contact Info) Description 11/14/2023 2:33 PM CDT Anesthesia Event [facility] Radiology [address] [place] [address] Natali Bower MD [address] [place] [address] Shahbaz Jones CRNA [address] [place] [address] Anesthesia Record Procedure Summary Procedure Name Responsible Anesthesiologist Anesthesia Start Time Anesthesia Stop Time VENOGRAM LOWER EXTREMITY BILATERAL Natali Bower MD 11/14/23 1433 11/14/23 1615 Events Date Time Event Comment 11/14/2023 1433 An Start 1438 An Start Data 1450 An Induction The patient was reevaluated immediately before moderate or deep sedation use and before anesthesia induction. 1451 An Intubation 1454 Anesthesia Ready 1600 An Extubation 1615 Handoff to RN I completed my handoff to the receiving nurse during which we: 1. Patient identified 2. Responsible provider identified 3. Pertinent medical history reviewed 4. Procedure type and surgical course discussed 5. Intraoperative anesthetic management and any significant issues discussed 6. Expectations and concerns for postop period discussed 7. Questions solicited from receiving nurse 8. Patient disposition at the time of handoff: No value filed. 1615 An Stop Meds Name Total midazolam PF 2 mg lidocaine (cardiac) syringe 2 % 80 mg propofol 200 mg fentaNYL 150 mcg succinylcholine 80 mg ondansetron PF (ZOFRAN) 2 mg/mL injectio n 4 mg glycopyrrolate 0.4 mg phenylephrine infusion (100 mcg/mL) 0.28 mg heparin 1,000 unit/ml 5,000 Units sodium chloride 0.9% infusion 600 mL * Agents Name O2% N2O O2 Air Sevoflurane Inspired Sevoflurane * Blood No blood administrations on file. Lines, Drains, and Airways Type Details Placement Removal Peripheral IV Placement Date: 11/14/23; Placement Time: 1050; Catheter Size: 18 G; Orientation: Posterior, Right; Location: Hand; Removal Date: 11/15/23; Removal Time: 1359 11/14/23 1050 by Nohemy Aj RN 11/15/23 1359 by Chanda Bales RN ETT Placement Date: 11/14/23; Placement Time: 1512 (created via procedure documentation); Mask Ventilation: 1; Technique: Video laryngoscopy; Type: ETT - single; Single Lumen Tube Size: 7 mm; Cuffed: Yes; Laryngoscope: Maricarmen; Blade Size: 3; Location: Oral; Insertion Attempts: 1; Placement Verification: Auscultation, Capnometry; Removal Date: 11/14/23; Removal Time: 1600 11/14/23 1512 by Jagdeep Guillory CRNA 11/14/23 1600 by Jagdeep Giullory CRNA documented in this encounter Social History Tobacco Use Types Packs/Day Years [...] on file 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 Gender Identity Female 10/24/2023 9:52 AM CDT Sexual Orientation Straight 10/24/2023 9: 52 AM CDT documented as of this encounter OR Notes * Anesthesia Postprocedure Evaluation - Natali Bower MD - 11/14/2023 4:55 PM CDT Patient: Sahra Parks Procedure Summary Date: 11/14/23 Room / Location: [facility] Radiology Anesthesia Start: 1433 Anesthesia Stop: 1615 Procedure: VENOGRAM LOWER EXTREMITY BILATERAL Diagnosis: May-Thurner syndrome May-Thurner syndrome Scheduled Providers: mUberto Garcia MD; Richard Antony MD; Jagdeep Guillory CRNA Responsible Provider: Natali Bower MD Anesthesia Type: general ASA Status: 3 Anesthesia Type: general Last vitals BP 106/81 Pulse 66 Resp 12 SpO2 99% Anesthesia Post Evaluation Patient location during evaluation: PACU Patient participation: complete - patient participated Level of consciousness: fully awake Pain management: satisfactory to patient Airway patency: patent Evidence of recall: no Cardiovascular status: hemodynamically stable Respiratory status: spontaneous ventilation, non-labored ventilation and room air Hydration status: euvolemic Pt is: normothermic Nausea/Vomiting status: none Comments: Patient in good, stable condition as above. Appropriate for PACU discharge. No notable events documented. * Anesthesia Procedure Notes - Jagdeep Guillory CRNA - 11/14/2023 3:11 PM CDTAssociated Order(s): Airway Airway Urgency: elective Indications for airway management: anesthesia Difficult airway: no Staff: Supervising provider: Natali Bower MD Placed by: CAST ASSOCIATE: Jagdeep Guillory CRNA Emergent airway documentation: Risks and benefits discussed: yes Consent obtained: yes Consent given by: patient Airway prep: Preoxygenated: yes Patient position: sniffing Mask difficulty assessment: 1 - vent by mask Spontaneous ventilation during airway: absent Sedation level during airway: GA Final airway details: Final airway type: endotracheal airway Tube type: ETT ETT size: 7.0 mm Cuffed: yes Technique used for successful ETT placement: video laryngoscopy Devices/Methods used in placement: stylet Insertion site: oral Blade type: Maricarmen Video blade type: Hua Blade size: 3 Cormack-Lehane (video): grade I - full view of glottis Cuff inflated with: air ETT to lips: 21 cm Placement verified by: auscultation and CO2 detection Airway secured with: silk tape Number of attempts: 1 * Anesthesia Preprocedure Evaluation - Natali Bower MD - 11/14/2023 2:18 PM CDT Images from the original note were not included. [facility] Preoperative [facility] and Planning Preoperative Evaluation Record Evaluation type/location: TPAP from [facility] Planned procedure site: Radiology Date: 11/04/23 NOTE: This note represents a preoperative evaluation initiated via telephone interview. NO PHYSICALEXAM was performed at the time of initial assessment. A physical exam may be added to this note anddocumented below. Anesthesia Evaluation Sahra Parks is a 43 y.o. female VENOGRAM LOWER EXTREMITY LEFT * No surgery found * HISTORY HPI Sahra Parks Is a 43 year old with history significant for depression and bipolar disorder, SLE, chronic pain, seizures, migraines, hypothyroidism and May-Thurner related left leg DVT felt to be provoked by OCPs. She's s/p left leg deep venous mechanical thrombectomy of left CIV through CFV, and left CIV stent for May- Thurner lesion. Now with worsening left leg swelling and left groin pain. 10/04/2023 CT - increased clot within the left CIV/EIV stent, but channel is still patent. She was started on Xarelto and is being evaluated prior to planned pelvic venogram to reopen the left CIV and line it with a smaller 14mm stent. DOS Addendum: 43yo female, with no significant changes to health since CPAP assessment. Appropriately fasted. Has experienced PONV but no serious complications with prior anesthetics. Past Medical History Information obtained from: patient and chart. Information obtained during: Telephone Visit NOTE: This note represents a preoperative evaluation initiated via virtual (video or telephone) interview. NO PHYSICAL EXAM was performed at the time of initial assessment. A physical exam may be added to this note and documented below. Neurological + Seizures (No recent - over an year ago since last seizure) + Psychiatric history - bipolar and depression Pertinent negatives: neuromuscular disease; CVA/stroke and TIA Cardiovascular + Hypertension + DVT/PE Number of DVT/PE episodes: 2. Last VTE date: 09/2023. Pertinent negatives: CAD ; MT ; CABG ; valvular heart disease; atrial fibrillation; pacemaker/ICD; negative for CHF; drug-eluting stent(s) and bare metal stent(s) Respiratory Pertinent negatives: COPD; sleep apnea (CHIP); pulmonary hypertension; no O2 use outside the hospital and no tracheostomy Hepatic / Heme + History of anemia - iron deficiency Pertinent negatives: liver disease Renal / Pertinent negatives: renal disease and dialysis Musculoskeletal/Pain + Chronic pain (Generalized pain and BLE and back) - back pain. + Chronic opioid use - daily. + Headaches - migraine headaches. Endocrine / Other + Thyroid disease - hypothyroidism + Cancer history- in remission. Cancer type: cervical ca History of conization of cervix 1997. + Rheumatological disease - systemic lupus erythematosus. Pertinent negatives: diabetes mellitus; transplanted organ and infectious disease Functional Capacity Functional capacity: 4-6 METs Functional capacity limited by a non-cardiovascular, non-pulmonary condition. Comments: Able to ascend 2 flights of stairs w/o SOB or CP - has a hard time recently walking d/t LLE Pain Day of Surgery assessments + Possibility of assessed (LMP 11/04/2023) Review of Systems + pedal edema (BLE L>R) + chronic pain (Generalized pain and BLE and back) Pertinent negatives: productive cough; SOB; recent cold/flu; fever; chest pain; orthopnea; PND; previous transfusion; bleeding problems and syncope PAT Summary and Plans Cardiac risk classification of planned procedure: low cardiac risk. Preoperative assessment status: complete. Additional comments: Sahra Parks is a 43 y.o. female who is being evaluated prior to undergoing alow cardiac risk surgery. Revised Cardiac Risk Index factors are (none) for a total RCRI of 0 out of 6. Functional capacity is 4-6 METs. May-Thurner related left leg DVT felt to be provoked by OCPs. The patient is on oral anticoagulation therapy with rivaroxaban (XARELTO) and plan in place to continue this for the procedure. Obstructive sleep apnea (CHIP) screening status is STOP-BANG incomplete but suspected to be 0-2 suggesting low risk for CHIP. Neck circumference pending.. This assessment was performed via telephone. Therefore the physical exam has been deferred to the day of surgery team. The patient was provided with preoperative instructions for their medications. Patient instructions were provided by telephone and electronically sent via [employer]. Patient verbalized understanding of instructions. Blood bank needs for day of procedure: No type and screen needed Pending labs/tests include: POC Hcg Urine TPAP Complete Preoperative evaluation performed by Maryana Gregory NP on 11/04/23 at 10:47 AM . Patient Active Problem List Diagnosis Date Noted Arthralgia of both knees 09/30/2023 Loss of hair 09/30/2023 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) 08/15/2023 Dysuria 08/14/2023 Positive antinuclear antibody 05/29/2023 COVID-19 04/03/2023 Chronic abdominal pain 02/25/2023 Seborrheic dermatitis of scalp 02/25/2023 Seizure disorder (CMS/HCC) ([facility]) 02/25/2023 Hypothyroidism 01/25/2023 Pain in pelvis 01/25/2023 Low back pain 12/17/2022 Cyst of ovary 11/29/2022 Essential hypertension 11/29/2022 Galactorrhea not associated with childbirth 11/29/2022 Headache 11/29/2022 Low grade squamous intraepithelial lesion (LGSIL) on cervicovaginal cytologic smear 11/29/2022 Malaise and fatigue 11/29/2022 Cervical intraepithelial neoplasia 11/29/2022 Multinodular goiter 11/29/2022 Neoplasm of bone 11/29/2022 Flank pain 11/29/2022 Pain of breast 11/29/2022 Uterine leiomyoma 11/29/2022 Nicotine dependence 11/27/2022 Chronic idiopathic constipation 11/26/2022 Nondiabetic gastroparesis 11/26/2022 Nausea 11/19/2022 Deep vein thrombosis (DVT) ([facility]) ([facility]) 11/16/2022 Chronic ethmoidal sinusitis 11/15/2022 Chronic maxillary sinusitis 11/15/2022 Acute embolism and thrombosis of unspecified deep veins of left lower extremity ([facility]) 10/18/2022 Deep vein thrombosis (DVT) of left lower extremity ([facility]) 10/15/2022 Migraine 09/12/2022 Bipolar disorder ([facility]) 09/07/2022 Cobalamin deficiency 09/07/2022 Cigarette smoker 09/04/2022 Abnormal laboratory test result 08/06/2022 Allergic rhinitis 07/27/2022 Vitamin B12 deficiency (non anemic) 07/27/2022 Allergic rhinitis, unspecified 07/27/2022 Anorexia nervosa, binge eating/purging type 06/13/2022 Attention deficit hyperactivity disorder, predominantly inattentive type 06/13/2022 Benign endometrial hyperplasia 06/13/2022 Major depressive disorder, recurrent, unspecified ([facility]) 06/13/2022 Personal history of suicidal behavior 06/13/2022 Paranoid schizophrenia ([facility]) ([facility]) 06/13/2022 Moderate protein-calorie malnutrition ([facility]) ([facility]) 06/13/2022 Hypothyroidism, unspecified 06/13/2022 Other asthma 06/13/2022 Systemic lupus erythematosus, organ or system involvement unspecified ([facility]) 06/13/2022 Anxiety disorder, unspecified 06/13/2022 Bipolar disorder, current episode depressed, mild or moderate severity, unspecified ([facility]) 06/13/2022 Delusional disorders ([facility]) 06/13/2022 Mixed anxiety and depressive disorder 01/24/2021 Anxiety disorder 01/24/2021 MDD (major depressive disorder), single episode, moderate ([facility]) 11/22/2020 Carpal tunnel syndrome on left 09/14/2010 Seizure disorder ([facility]) ([facility]) 09/14/2010 Asthma 07/06/2010 Encounter for health-related screening 07/06/2010 SAB (spontaneous ) 07/06/2010 Status post umbilical hernia repair, follow-up exam 07/06/2010 Tobacco use disorder complicating , childbirth, or the puerperium 07/06/2010 Anxiety 06/22/2010 GBS (group B streptococcus) UTI complicating 06/22/2010 Hypothyroid 06/22/2010 History of delivery, currently 06/22/2010 Lupus (systemic lupus erythematosus) ([facility]) ([facility]) 06/22/2010 Marijuana abuse 06/22/2010 S/P cone biopsy of cervix 06/22/2010 Severe pre-eclampsia, antepartum 06/22/2010 Supervision of high-risk 06/22/2010 Malignant neoplasm of cervix ([facility]) ([facility]) 04/21/1997 Past Medical History: Diagnosis Date Cellulitis Cellulitis - (Added by TW Conv) Past Surgical History: Procedure Laterality Date ANGIOPLASTY / STENTING FEMORAL Left 09/2022 LLE HERNIA REPAIR 2009 SINUS SURGERY 01/2023 OB History 7 Para 3 Term 3 0 AB 4 Living SAB IAB Ectopic Multiple Live Births Allergies Allergen Reactions Morphine Swelling, Anaphylaxis and Unknown Throat swelling Latex Rash rash Sulfa (Sulfonamide Antibiotics) Nausea And Vomiting, Rash, Nausea only and Vomiting Ciprofloxacin Nausea only and Vomiting Reaction: Nausea, Vomiting, Med List Status: Nurse Complete Set By: Lauro Miller RN at 11/04/2023 11:18 AM Taking? Last Dose Start Date End Date Provider ALPRAZolam (XANAX) 1 mg tablet 11/03/2023 01/21/23 -- ProviderZach MD cloNIDine (CATAPRES) 0.3 mg tablet 11/03/2023 10/17/23 -- Provider, MD Zach dextroamphetamine-amphetamine XR (ADDERALL XR) 30 mg 24 hr capsule 11/04/2023 06/04/23 -- Zach Abernathy MD HYDROcodone-acetaminophen (NORCO) 5-325 mg per tablet Past Week 10/30/23 -- Zach Abernathy MD lamoTRIgine (LaMICtal) 150 mg tablet Past Week 01/07/23 -- Zach Abernathy MD levothyroxine (SYNTHROID) 175 mcg tablet 11/03/2023 10/19/22 11/04/23 Erik Vigil MD Take 1 tablet (175 mcg total) by mouth emt/paramedic before breakfast Patient taking differently: Take 1 tablet (175 mcg total) by mouth nightly naltrexone (DEPADE) 50 mg tablet 11/03/2023 05/10/23 -- Zach Abernathy MD ondansetron ODT (ZOFRAN-ODT) 8 mg disintegrating tablet Past Month -- -- Zach Abernathy MD pregabalin (LYRICA) 50 mg capsule Past Week -- -- Zach Abernathy MD rivaroxaban (XARELTO) 20 mg tablet 11/03/2023 10/09/23 -- Umberto Garcia MD Take 1 tablet (20 mg total) by mouth daily with breakfast Patient taking differently: Take 1 tablet (20 mg total) by mouth daily with dinner tretinoin (RETIN-A) 0.1 % cream Past Week 10/01/23 -- Zach Abernathy MD Wellbutrin XL 300 mg 24 hr tablet 11/03/2023 05/30/21 -- Zach Abernathy MD -- -- -- -- -- -- Notes: -- -- -- -- -- -- -- -- -- -- -- -- Patient not taking: -- -- -- -- -- ---- -- -- -- -- -- -- Current Outpatient Medications: ALPRAZolam (XANAX) 1 mg tablet cloNIDine (CATAPRES) 0.3 mg tablet dextroamphetamine-amphetamine XR (ADDERALL XR) 30 mg 24 hr capsule HYDROcodone-acetaminophen (NORCO) 5-325 mg per tablet lamoTRIgine (LaMICtal) 150 mg tablet levothyroxine (SYNTHROID) 175 mcg tablet naltrexone (DEPADE) 50 mg tablet ondansetron ODT (ZOFRAN-ODT) 8 mg disintegrating tablet pregabalin (LYRICA) 50 mg capsule rivaroxaban (XARELTO) 20 mg tablet tretinoin (RETIN-A) 0.1 % cream Wellbutrin XL 300 mg 24 hr tablet Social History Tobacco Use Smoking Status Former Types: Cigarettes Smokeless Tobacco Never Alcohol Use: Unknown (11/04/2023) AUDIT-C Frequency of Alcohol Consumption: Not on file Average Number of Drinks: Patient does not drink Frequency of Binge Drinking: Not on file Substance and Sexual Activity Drug Use Never No family history on file. May Thurner syndrome, Iron def anemia, hypothyroidism, anxiety, DVT, FARIBA, and seizure disorder. Relevant diagnostics: ECG(s): 10/16/2022- Echocardiogram(s): N/A Stress test(s): N/A Cardiac catheterization(s): N/A PFT(s): N/A Vascular studies: N/A Other: CT A/P 10/04/2023- IMPRESSION: 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 Thrombus extends to the proximal margin of the stent but does not extend into the inferior vena cava. There is no significant external compression of the stent. The left external iliac vein distal to the stent is patent there is no evidence of thrombus in the right iliac veins. Brain MRI 09/25/2023- IMPRESSION: Very minimal T2/FLAIR hyperintensities could be related to chronic migraines. No enhancing lesions are seen. There is significant paranasal sinus disease. There were no vitals filed for this visit. PT: No results found for requested labs within last 30 days. INR: No results found for requested labs within last 30 days. APTT: No results found for requested labs within last 30 days. Hgb A1C: No results found for requested labs within last 30 days. CBC RBC: No results found for requested labs within last 30 days. RDW: No results found for requested labs within last 30 days. MCHC: No results found for requested labs within last 30 days. MCH: No results found for requested labs within last 30 days. MCV: No results found for requested labs within last 30 days. Hct: No results found for requested labs within last 30 days. Hgb: No results found for requested labs within last 30 days. WBC: No results found for requested labs within last 30 days. MPV: No results found for requested labs within last 30 days. Platelets: No results found for requested labs within last 30 days. RDW CV: No results found for requested labs within last 30 days. RDW Sd: No results found for requested labs within last 30 days. BMP Glucose: No results found for requested labs within last 30 days. Calcium: No results found for requested labs within last 30 days. Sodium: No results found for requested labs within last 30 days. Potassium: No results found for requested labs within last 30 days. CO2: No results found for requested labs within last 30 days. Chloride: No results found for requested labs within last 30 days. BUN: No results found for requested labs within last 30 days. Creatinine: No results found for requested labs within last 30 days. Jay index score: 95 DOS Physical Exam Medical history, medications, and allergies reviewed. Attestation: With today's edits, I endorse the findings of the anesthesia pre-evaluation assessment dated: 11/04/2023. Airway Exam: Mallampati: I Cervical ROM: FROM Cardiovascular Exam: Rate: regular Rhythm: regular Negative for Murmur Pulmonary Exam: LCTA, bilat EENT Exam: trachea midline Dental Exam: Appears intact Skin Exam: Skin is warm and dry. Current state: Patient's current state is cooperative and interactive. Anesthesia Plan ASA 3 My patient is approved for the Anesthesia Controlled Medication protocol when under care of a CAST ASSOCIATE Planned anesthesia: General Team communication plan: oral ET tube Induction: Induction: intravenous. Postoperative Plan: Postoperative administration opioids intended. No postoperative mechanical ventilation intended. Planned trial extubation. Informed Consent: Anesthesia plan and risks discussed with patient. Consent and Attending signature: I and/or my designee have discussed the anesthesia plan, benefits, possible alternatives, parental presence at time of induction (if indicated), and clinically relevant risks that may include dental injury, unintentional awareness, and/or other complications. The patient and/or parent/legal guardian understand, and agree to proceed. All questions answered. documented in this encounter Plan of Treatment Not on file documented as of this encounter Procedures Procedure Name Priority Date/Time Associated Diagnosis Comments AR AN PROCEDURE PLACEHOLDER Routine 11/14/2023 3:11 PM CDT AR AN ELECTIVE ENDOTRACHEAL AIRWAY Routine 11/14/2023 3:11 PM CDT documented in this encounter Results * AR AN ELECTIVE ENDOTRACHEAL AIRWAY, AR AN PROCEDURE PLACEHOLDER (11/14/2023 3:11 PM CDT) Narrative Jagdeep Guillory CRNA - 11/14/2023 3:11 PM CDT Jagdeep Guillory CRNA ? 11/14/2023 ??3:12 PM Airway Urgency: elective Indications for airway management: anesthesia Difficult airway: no Staff: Supervising provider: Natali Bower MD Placed by: CAST ASSOCIATE: Jagdeep Guillory CRNA Emergent airway documentation: Risks and benefits discussed: yes Consent obtained: yes Consent given by: patient Airway prep: Preoxygenated: yes Patient position: sniffing Mask difficulty assessment: 1 - vent by mask Spontaneous ventilation during airway: absent Sedation level during airway: GA Final airway details: Final airway type: endotracheal airway Tube type: ETT ETT size: 7.0 mm Cuffed: yes Technique used for successful ETT placement: video laryngoscopy Devices/Methods used in placement: stylet Insertion site: oral Blade type: Maricarmen Video blade type: Hua Blade size: 3 Cormack-Lehane (video): grade I - full view of glottis Cuff inflated with: air ETT to lips: 21 cm Placement verified by: auscultation and CO2 detection Airway secured with: silk tape Number of attempts: 1 us Natali Bower MD ANESTHESIA ORD ERABLES Edited Result - Final documented in this encounter Visit Diagnoses Not on filedocumented in this encounter Administered Medications Inactive Administered Medications - up to 3 most recent administrations Medication Order MAR Action Action Date Dose Rate Site fentaNYL (SUBLIMAZE) preservative free injection intravenous, As needed, Starting on Doris 11/14/23 at 1506, Anesthesia Intra-op Given 11/14/2023 2:50 PM CDT 150 mcg glycopyrrolate (ROBINUL) injection intravenous, Administer over 1 Minutes, As needed, Starting on Doris 11/14/23 at 1456, Anesthesia Intra-op Given 11/14/2023 3:01 PM CDT 0.2 mg Given 11/14/2023 2:56 PM CDT 0.2 mg heparin 1,000 unit/mL injection intravenous, As needed, Starting on Doris 11/14/23 at 1528, Anesthesia Intra-op Given 11/14/2023 3:28 PM CDT 5,000 Units lidocaine (cardiac) (XYLOCAINE) preservative free injection intravenous, As needed, Starting on Doris 11/14/23 at 1506, Anesthesia Intra-op, Indications: Ventricular ArrhythmiasIndications:V entricular Arrhythmias Given 11/14/2023 2:50 PM CDT 80 mg midazolam (VERSED) 2 mg/2 mL preservative free injection intravenous, Administer over 2 Minutes, As needed, Starting on Doris 11/14/23 at 1443, Anesthesia Intra-op Given 11/14/2023 2:43 PM CDT 2 mg ondansetron (ZOFRAN) injection intravenous, Administer over 2 Minutes, As needed, Starting on Doris 11/14/23 at 1540, Anesthesia Intra-op Given 11/14/2023 3:40 PM CDT 4 mg phenylephrine (HAYDEN-SYNEPHRINE) 5 mg/50 mL (100 mcg/mL) in sodium chloride 0.9% (premix) intravenous, Continuous PRN, Starting on Doris 11/14/23 at 1519, Anesthesia Intra-op Rate/Dose Change 11/14/2023 3:32 PM CDT 0.1 mcg/kg/min 3.672 mL/hr New Bag 11/14/2023 3:19 PM CDT 0.3 mcg/kg/min 11.016 mL /hr propofoL (DIPRIVAN) 10 mg/mL IV intravenous, As needed, Starting on Doris 11/14/23 at 1506, Anesthesia Intra-op Given 11/14/2023 2:50 PM CDT 200 mg sodium chloride 0.9% infusion 30 mL/hr, intravenous, Continuous, Starting on Doris 11/14/23 at 1015 Restarted 11/14/2023 3:42 PM CDT Rate/Dose Verify 11/14/2023 2:33 PM CDT 30 mL/h r New Bag 11/14/2023 10:52 AM CDT 30 mL/hr 30 mL/hr succinylcholine syringe intravenous, As needed, Starting on Doris 11/14/23 at 1450, Anesthesia Intra-op Given 11/14/2023 2:50 PM CDT 80 mg documented in this encounter Care Teams Friction Welding Machine Operator Relationship Specialty Start Date End Date Pierre Cisneros PA [address] [place] [address] PCP - General Internal Medicine 09/04/23 documented as of this encounter
--- OUTSIDE RECORDS SUMMARY | 2024-04-26 21:22 | XMS_ITS | Encounter Summary ---
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
--- OUTSIDE RECORDS SUMMARY | 2024-04-26 21:22 | XMS_ITS | Encounter Summary ---
Author Organization [facility] Address [address] [place] [address] Phone Care Team Providers Care Dermatologist Name Role Phone Pierre Cisneros Primary Care Provider + Reason for Visit * Oncology (Routine) - Closed Specialty Diagnoses / Procedures Referred By Faiza t Referred To Contact Hematology Diagnoses Blood coagulation disorder (CMS/HCC) (HCC) Coagulation defect (CMS/HCC) (HCC) Pierre Cisneros PA [facility] [place] [address] Phone: tel: fax: Anna Rizzo MD [address] [place] [address] Phone: tel: fax: Referral ID Status Reason Start Date Expiration Date V isits Requested Visits Authorized [id number] Closed Specialty Services Required 11/04/2023 04/21/2024 99 99 Encounter Details Date Type Department Care Team (Late st Contact Info) Description 03/03/2024 11:15 AM MINE BOSS Office Visit [facility] Hematology [address] [facility] Floor [address] [place] [address] Anna Rizzo MD [address] [place] [address] Anemia due to other cause, not classified (Primary Dx); VTE (venous thromboembolism); May-Thurner syndrome; Iron deficiency anemia, unspecified iron deficiency anemia type; Menorrhagia with regular cycle; Blood coagulation disorder (CMS/HCC) (HCC); Coagulation defect (CMS/HCC) (HCC); Anemia, unspecified type; H/O menorrhagia Social History Tobacco Use Types Packs/Day Years [...] on file Legal Sex Female 7:09 AM MINE BOSS Gender Identity Female 10/24/2023 9:52 AM CDT Sexual Orientation Straight 10/24/2023 9: 52 AM CDT documented as of this encounter Last Filed Vital Signs Vital Sign Reading Time Taken Comments Blood Pressure 116/77 03/03/2024 11:14 AM MINE BOSS Pulse 108 03/03/2024 11:14 AM MINE BOSS Temperature 35.9 ??C (96.7 ??F) 03/03/2024 11:[address] Respiratory Rate 18 03/03/2024 11:14 AM MINE BOSS Oxygen Saturation 100% 03/03/2024 11:14 AM MINE BOSS Inhaled Oxygen Concentration - - Weight 62.3 kg (137 lb 6.4 oz) 03/03/2024 11:14 AM MINE BOSS Height - - Body Mass Index 22.86 01/03/2024 8:11 AM CDT documented in this encounter Progress Notes * Anna Rizzo MD - 03/03/2024 11:15 AM CST [facility] DEPART[facility] OF INTERNAL MEDICINE - DIVISION OF HEMATOLOGY [address] [place] [address], [address] [address] HEMATOLOGY OFFICE: OUTPATIENT FAX: HEMATOLOGY CONSULT PATIENT NAME: Sahra Parks : 1980 REASON FOR CONSULTATION: Venous thromboembolism and May-Thurner syndrome CONSULTATION REQUESTED BY: BRADY Bautista HPI: Sahra is a 43 y.o., female with a past medical history significant for May- Thurner syndrome left lower extremity thrombosis, hypothyroidism, and unspecified psychiatric disorder who presents for evaluation of her venous thromboembolism. She says that her whole body hurts. She feels like her body is swelling. She gets per reddish purple is spots over her legs. She also says that she has discoloration of her skin when she is with after shower goes into a pole. She complains of left lower extremity swelling. She was placed on clopidogrel and rivaroxaban after iliac stents were placed on the leftin October of 2023. The clopidogrel was discontinued in December. She said that her last menstrual cycle lasted 28 days on the rivaroxaban and clopidogrel. Her menses was heavy and she needed to wear abladder pad at night because of the heavy bleeding. The clopidogrel was discontinued because of theheavy bleeding. She also stopped the rivaroxaban with her next menstrual cycle. She has had an IUD i n the past but this was injected. She wears compression stockings intermittently. She complains of worse pain after she takes the compression stockings off. She thinks the pain in her legs will be worse in the winter and is considering vibration therapy. She takes the rivaroxaban about 2 hours after her evening meal. PAST MEDICAL HISTORY Cellulitis May-Thurner syndrome Left lower extremity deep venous thrombosis provoked by oral contraceptives Hypothyroidism Migraines Seizure disorder Anxiety Unspecified psychiatric disorder Pneumonia Mold exposure PAST SURGICAL HISTORY Left lower extremity thrombectomy with iliac stent placement in September of 2022 Recurrent iliac stent placement in October of 2023 Sinus surgery with deviated septum repair Umbilical hernia repair FAMILY HISTORY Mother is 61 and has the pneumothorax in COPD. Father is 63 and has leg swelling and hypertension. She has 2 sisters and 2 brothers. She is not aware of health issues with them. She is a 21-year-old son with who is hearing impaired. She has a daughter 13 and a son 14 who are healthy. SOCIAL HISTORY She is single and lives alone. She is unemployed now. 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 She says she has rare alcohol. She does not use illicit drugs. She smoked a half a pack a day intermittently for 20 years. She quit in 2022. REVIEW OF SYSTEMS Review of Systems Constitutional: Positive for malaise/fatigue. Weight gain HENT: Positive for ear pain and nosebleeds. Postnasal drip, sneezing, difficulty swallowing, and pain with swallowing. Eyes: Positive for blurred vision and pain. Respiratory: Positive for cough, hemoptysis and sputum production. Cardiovascular: Positive for chest pain (At rest and with exertion), palpitations, leg swelling andPND. Poor circulation Gastrointestinal: Positive for abdominal pain, blood in stool, constipation, diarrhea, melena and vomiting. Loss of appetite, bloating Genitourinary: Positive for dysuria and frequency. Urinary dribbling Musculoskeletal: Positive for back pain, joint pain and myalgias. Joint stiffness/swelling, redness of joints, muscle stiffness, pain down the back of her legs Skin: Positive for rash. Hair loss, changes in skin color, and extreme dryness of the skin on her legs. Nodules on her arms. Neurological: Positive for dizziness, focal weakness, loss of consciousness, weakness and headaches. Difficulty in speaking and loss of balance and coordination Endo/Heme/Allergies: Bruises/bleeds easily. Excessive hunger, excessive thirst, heat intolerance, and cold intolerance. Psychiatric/Behavioral: Positive for depression and memory loss. The patient is nervous/anxious andhas insomnia. All other systems reviewed and are negative. A full 12-point review of systems was conducted. All systems reviewed and negative except as noted in the History of Present Illness. PHYSICAL EXAMINATION Vitals BP 116/77 (BP Location: Right arm) Pulse 108 Temp (!) 35.9 ??C (96.7 ??F) (Transdermal) Resp 18 Wt 62.3 kg (137 lb 6.4 oz) SpO2 100% BMI 22.86 kg/m?? Physical Exam Vitals reviewed. Constitutional: General: She is not in acute distress. Appearance: Normal appearance. HENT: Head: Normocephalic and atraumatic. Right Ear: External ear normal. Left Ear: External ear normal. Nose: Nose normal. Mouth/Throat: Mouth: Mucous membranes are moist. Pharynx: Oropharynx is clear. No oropharyngeal exudate. Eyes: General: No scleral icterus. Extraocular Movements: Extraocular movements intact. Conjunctiva/sclera: Conjunctivae normal. Pupils: Pupils are equal, round, and reactive to light. Cardiovascular: Rate and Rhythm: Normal rate and regular rhythm. Heart sounds: No murmur heard. No gallop. Pulmonary: Effort: Pulmonary effort is normal. No respiratory distress. Breath sounds: Normal breath sounds. No wheezing. Abdominal: General: Bowel sounds are normal. There is no distension. Palpations: Abdomen is soft. Tenderness: There is no abdominal tenderness. Musculoskeletal: General: No swelling, tenderness or deformity. Normal range of motion. Cervical back: Normal range of motion and neck supple. No rigidity. Lymphadenopathy: Cervical: No cervical adenopathy. Skin: General: Skin is warm and dry. Findings: No erythema or rash. Neurological: General: No focal deficit present. Mental Status: She is alert and oriented to person, place, and time. Cranial Nerves: No cranial nerve deficit. Psychiatric: Mood and Affect: Mood normal. Behavior: Behavior normal. LAB/RADIOLOGY/DIAGNOSTICS I personally reviewed records in [facility] that showed the left lower extremity thrombosis in September of 2022 from the left femoral vein through the popliteal vein von Willebrand Factor. On November 13 she had a CMP with a creatinine of 1.08. Total protein was 6.1 with an albumin of 3.6. CBC showed a white count of 7200, hemoglobin 11.4 with an MCV of 87.1, platelets [id number]. Beta 2 glycoprotein 1 antibodies and cardiolipin antibodies were negative. Lupus anticoagulant was indeterminate presumably on rivaroxaban. I personally reviewed the images of the CT scan of the abdomen pelvis done on January 03, 2024 and measured the spleen size as 9.6 cm in the medial-lateral direction and 5.4 cm in the CC direction. ASSESSMENT & PLAN Venous thromboembolism: She did have a left lower extremity DVT diagnosed in 2022. This was while she was on oral contraceptives. She was treated with thrombectomy at that time with a left common iliac stent placement. She did present in October of this year and had restenting of the left common iliac. She was initially on clopidogrel and rivaroxaban. The clopidogrel was stopped in December with heavy menstrual bleeding. She does continue on rivaroxaban. I did ask that she take this with her evening meal. She will continue on this indefinitely. Hypercoagulable state: She has had negative cardiolipin and beta 2 glycoprotein 1 antibody testing.Lupus anticoagulant could not be done on the rivaroxaban. I would not pursue a hypercoagulable workup given that it would not change my recommendation for indefinite anticoagulation. Anemia: We will plan to check a CBC with reticulocyte count today. We will also check a ferritin and iron profile given the heavy menstrual bleeding. Menorrhagia: She does complain of heavy menstrual bleeding on the rivaroxaban. She can not do hormonal control now. An IUD was expunged in the past. I do recommend continued follow-up with her cardiology clinical consultant. We will plan to see her back for follow up on an as-needed basis. She was given our card with our contact information. She will call with questions or concerns. ADDENDUM: CBC with a white count of 7600 with a normal differential. Hemoglobin is 10.7 with an MCVof 79.6, platelets are 538,000. Reticulocyte count is 1.2% with an absolute number of 52,000. Ferritin is 19, serum iron 29, TIBC 368, and saturation 8%. She is iron deficient and anemic at this time. I will ask that she start taking oral iron sulfate 325 mg on Saturday, Saturday, and Saturday. She should follow-up work with her primary for continuing monitoring of the iron deficiency. This is likely secondary to menorrhagia. She should also follow with her cardiology clinical consultant for consideration of other options for the menorrhagia. A hysterectomy could be considered given the need for anticoagulation and the heavy bleeding. My total encounter time on 03/03/2024 was 63 minutes which was spent in the activities documented in the note. This includes time spent prior to the visit and after the visit in direct care of the patient. This time does not include time spent in any separately reportable services. BOSS documented in this encounter Plan of Treatment Not on file documented as of this encounter Results * (ABNORMAL) Iron profile w/ IBC (03/03/2024 12:24 PM MINE BOSS) Pathologist [facility] Iron 29(L) 35 - 145 mcg/dL TIBC 368 250 - 400 mcg/dL [facility] Transferrin saturation 8(L) 20 - 50 % [facility] Blood 03/03/2024 12:2 4 PM MINE BOSS 03/03/2024 12:48 PM MINE BOSS Anna Rizzo MD LAB BLOOD ORDERABLES Final Result Performing Organization Address City/[facility] Co de Phone Number [facility] [place] [address] * Reticulocyte Count (03/03/2024 12:24 PM MINE BOSS) [facility] Ret[facility], absolute 0.052 0.020 - 0.100 M/cumm Comment:Testing performed by : [facility], [address] [place] [phone] Retics 1.2 0.5 - 1.8 % [facility] Comment:Testing performed by : [facility], [address] [place] [phone] Blood 03/03/2024 12:2 4 PM MINE BOSS 03/03/2024 12:45 PM MINE BOSS us Anna Rizzo MD LAB BLOOD ORDERABLES Final Result Performing Organization Address City/[facility]/ZIP Co de Phone Number [facility] [place] [address] * Ferritin (03/03/2024 12:24 PM MINE BOSS) [facility] Ferritin 19 13 - 150 ng/mL Blood 03/03/2024 12:2 4 PM MINE BOSS 03/03/2024 12:48 PM MINE BOSS us Anna Rizzo MD LAB BLOOD ORDERABLES Final Result TEZ AVAL[facility] Department [place] [address] * (ABNORMAL) CBC with auto differential (03/03/2024 12:24 PM MINE BOSS) WBC 7.6 3.8 - 9.9 K/cumm Comment:Testing performed by : [facility], [address] [place] [address] Hgb 10.7(L) 11.9 - 15.5 g/dL TEZ AVALOS Comment:Testing performed by : [facility], [address] [place] [address] Hct 33.8(L) 35.6 - 45.5 % TEZ AVALOS Comment:Testing performed by : [facility], [address] [place] [address] Plt 538(H) 150 - 400 K/cumm TEZ AVALOS Comment:Testing performed by : [facility], [address] [place] [address] MPV 7.5 6.8 - 10.4 fL TEZ AVALOS Comment:Testing performed by : [facility], [address] [place] [address] RBC 4.25 3.90 - 5.20 M/cumm TEZ AVALOS Comment:Testing performed by : [facility], [address] [place] [address] MCV 79.6(L) 81.3 - 96.4 fL CERNORMA AVALOS Comment:Testing performed by : [facility], [address] [place] [address] MCH 25.1(L) 27.1 - 33.3 pg CERNORMA AVALOS Comment:Testing performed by : [facility], [address] [place] [address] MCHC 31.5(L) 32.3 - 35.7 g/dL TEZ AVALOS Comment:Testing performed by : [facility], [address] [place] [phone] RDW CV 14.8 11.1 - 14.9 % TEZ AVALOS Comment:Testing performed by : [facility], [address] [place] [phone] NRBC abs 0.00 0.00 - 0.01 K/cumm TEZ AVALOS Comment:Testing performed by : [facility], [address] [place] [phone] Blood 03/03/2024 12:2 4 PM MINE BOSS 03/03/2024 12:45 PM MINE BOSS us Anna Rizzo MD LAB BLOOD ORDERABLES Final Result [facility] Department [place] [address] documented in this encounter Visit Diagnoses Diagnosis Anemia due to other cause, not classified- Primary VTE (venous thromboembolism) Embolism and thrombosis of unspecified site May-Thurner syndrome Compression of vein Iron deficiency anemia, unspecified iron deficiency anemia type Menorrhagia with regular cycle Blood coagulation disorder (CMS/HCC) (HCC) Other and unspecified coagulation defects Coagulation defect (CMS/HCC) (HCC) Other and unspecified coagulation defects Anemia, unspecified type H/O menorrhagia documented in this encounter Historical Medications * This list may reflect changes made after this encounter. gabapentin (NEURONTIN) 100 mg capsule TAKE 1 CAPSULE BY MOUTH EVERY DAY AT BEDTIME FOR SLEEP OR ANXIETY 01/31/2024 cyclobenzaprine (FLEXERIL) 10 mg tablet Take 1 tablet (10 mg total) by mouth nightly at bedtime 02/11/2024 added in this encounter Orders Outpatient Referral Count Last Ordered Date Fir st Ordered Date AMB REFERRAL TO HEMATOLOGY 1 03/03/2024 documented in this encounter Care Teams Dermatologist Relationship Specialty [place] [address] [place] [id number] PCP - General Internal Medicine 09/04/23 documented as of this encounter
--- OUTSIDE RECORDS SUMMARY | 2024-04-26 21:22 | XMS_ITS | Encounter Summary ---
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 LM, will attempt to call again tomorrow. documented in this encounter Plan of Treatment Not on file documented as of this encounter Visit Diagnoses Not on filedocumented in this encounter Care Teams Slab Miller Operator Relationship Specialty Start [place] [address] [place] [id number] PCP - General Internal Medicine 09/04/23 documented as of this encounter
--- OUTSIDE RECORDS SUMMARY | 2024-04-26 21:22 | XMS_ITS | Encounter Summary ---
Author Organization [facility] Healthcare Address [address] [place] [address] Care Team Providers Care Shoder Filler Name Role Phone Pierre Cisneros Primary Care Provider + Encounter Details Date Type Department Care Team (Late st Contact Info) Description 10/10/2023 Telephone [facility] Radiology [address] [place] [address] Becky Mtz, RN Social History Tobacco Use Types Packs/Day Years Used Date Smoking Tobacco: Every Day Cigarettes Smokeless Tobacco: Never Alcohol Use Standard Drinks/Week Comments Not Currently 0 (1 standard drink = 0.6 oz pur e alcohol) Hunger Vital Sign Answer Date Recorded Within [...] making you feel afraid or unsafe? 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 Garcia: I can't prescribe anything for pain. She should refer back to her PCP about that. Attempted to reach pt to discuss and schedule procedure. No answer, LM asking her to call back about scheduling. [place] direct line given. documented in this encounter Plan of Treatment Not on file documented as of this encounter Visit Diagnoses Not on filedocumented in this encounter Care Teams Shoder Filler Relationship Specialty Start Date End Date Pierre Cisneros PA [address] [place] [address] PCP - General Internal Medicine 09/04/23 documented as of this encounter
--- OUTSIDE RECORDS SUMMARY | 2024-04-26 21:22 | XMS_ITS | Encounter Summary ---
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 Garcia: okay to refill xarelto until June. Erx'd to pharmacy. rivaroxaban (XARELTO) 20 mg tablet Sig: Take 1 tablet (20 mg total) by mouth daily with breakfast NC attempted to reach pt to notify. No answer, LM letting pt know rx was sent. [place] direct line given. TY TRAPPER documented in this encounter Plan of Treatment Not on file documented as of this encounter Visit Diagnoses Not on filedocumented in this encounter Discontinued Medications Medication Sig Discontinue Reason Start Date End Da te rivaroxaban (XARELTO) 20 mg tablet Take 1 tablet (20 mg total) by mouth daily with breakfast Reorder 10/09/2023 03/11/2024 documented as of this encounter Care Teams Nurses Superintendent Relationship Specialty Start Date End Date Pierre Cisneros PA [address] [place] [id number] PCP - General Internal Medicine 09/04/23 documented as of this encounter
--- OUTSIDE RECORDS SUMMARY | 2024-04-26 21:22 | XMS_ITS | Encounter Summary ---
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 Explained that Dr. Garcia wants her to continue xarelto for the procedure. She is also wondering if she will be staying overnight. Explained that the plan is to discharge same day but there is always a chance that could change and she could be admitted. documented in this encounter Plan of Treatment Not on file documented as of this encounter Visit Diagnoses Not on filedocumented in this encounter Care Teams Tie Buyer Relationship Specialty Start Date End Date Pierre Cisneros PA [address] [place] [address] PCP - General Internal Medicine 09/04/23 documented as of this encounter
--- OUTSIDE RECORDS SUMMARY | 2024-04-26 21:22 | XMS_ITS | Encounter Summary ---
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 She said the ED gave her muscle relaxer which seemed to help somewhat withher leg discomfort. [facility] has not yet received records from that visit. Will reach out to [place] today to obtain. She states she also went to [facility] in [place], [place] today to meet with herCOURTNEYN this morning. She discussed her vaginal bleeding. She states that she started her menstrual cy gardenia approximately one month ago and has been bleeding heavy since that time, denies current abdominal pain, sometimes feels dizzy. She did have some lab work drawn at ED visit. She states that her provider at [facility] told her she would need to address with Dr. Garcia since he has her on the blood thinners. NC called [facility], they are faxing records from today. [place] sent request to [facility] for records, lab results, imaging and any other pertinent information from 01/06/[address] Garcia. Pt has telehealth visit with Dr. Garcia tomorrow. documented in this encounter Plan of Treatment Not on file documented as of this encounter Visit Diagnoses Not on filedocumented in this encounter Care Teams Wool Dyer Relationship Specialty Start Date End Date Pierre Cisneros PA [address] [place] [phone] PCP - General Internal Medicine 09/04/23 documented as of this encounter
--- OUTSIDE RECORDS SUMMARY | 2024-04-26 21:22 | XMS_ITS | Encounter Summary ---
Author Organization [facility] Healthcare Address [address] [facility] [place] [address] Care Team Providers Care Prorate Clerk Name Role Phone Pierre Cisneros Primary Care Provider + Encounter Details Date Type Department Care Team (Late st Contact Info) Description 03/03/2024 12:30 PM E/M ENGINEER Lab [facility] [place] - Lab Collection [address] [facility] [address] [place] [address] Anemia, unspecified type; H/O menorrhagia Social History [...] on file Legal Sex Female 7:09 AM E/M ENGINEER Gender Identity Female 10/24/2023 9:52 AM CDT Sexual Orientation Straight 10/24/2023 9: 52 AM CDT documented as of this encounter Plan of Treatment Not on file documented as of this encounter Procedures Procedure Name Priority Date/Time Associated Diagnosis Comments DIFFERENTIAL AUTO Routine 03/03/2024 12: 24 PM E/M ENGINEER Anemia, unspecified type H/O menorrhagia IRON PROFILE W/ IBC Routine 03/03/2024 1 2:24 PM E/M ENGINEER Anemia, unspecified type H/O menorrhagia CBC WITH AUTO DIFFERENTIAL Routine 03/03/2024 12:24 PM E/M ENGINEER Anemia, unspecified type H/O menorrhagia RETICULOCYTES Routine 03/03/2024 12:24 PM E/M ENGINEER Anemia, unspecified type H/O menorrhagia FERRITIN Routine 03/03/2024 12:24 PM E/M ENGINEER Anemia, unspecified type H/O menorrhagia documented in this encounter Results * Differential, auto (03/03/2024 12:24 PM E/M ENGINEER) Neutrophil abs 4.3 1.5 - 6.5 K/cumm Comment:Testing performed by : [facility], [address] [place] [phone] Lymphocyte abs 2.6 0.8 - 3.3 K/cumm CERNER BJ Comment:Testing performed by : [facility], [address] [place] [phone] Monocyte abs 0.5 0.2 - 0.8 K/cumm CERNER BJ Comment:Testing performed by : [facility], [address] [place], [place] [phone] Eosinophil abs 0.2 0.0 - 0.5 K/cumm CERNER BJ Comment:Testing performed by : [facility], [address], [place] [address] Basophil abs 0.1 0.0 - 0.1 K/cumm CERNER BJH Comment:Testing performed by : [facility], [address] [place] [phone] Neutrophil pct 56.3 % CERNER BJH Comment: Interpretive Data Percent cell count reference ranges are not reported, since discordance with absolute values may lead to misinterpretation of CBC data. Current Interpretive Data was last revised on 2017. Testing performed by: [facility], [address] [place] [phone] Lymphocyte pct 33.7 % CERNER BJ Comment: Interpretive Data Percent cell count reference ranges are not reported, since discordance with absolute values may lead to misinterpretation of CBC data. Current Interpretive Data was last revised on 2017. Testing performed by: [facility], [address] [place] [phone] Monocyte pct 6.4 % CERNER BJ Comment: Interpretive Data Percent cell count reference ranges are not reported, since discordance with absolute values may lead to misinterpretation of CBC data. Current Interpretive Data was last revised on 2017. Testing performed by: [facility], [address] [place] [phone] Eosinophil pct 2.9 % CERNER BJ Comment: Interpretive Data Percent cell count reference ranges are not reported, since discordance with absolute values may lead to misinterpretation of CBC data. Current Interpretive Data was last revised on 2017. Testing performed by: [facility], [address] [place] [phone] Basophil pct 0.7 % CERNER BJ Comment: Interpretive Data Percent cell count reference ranges are not reported, since discordance with absolute values may lead to misinterpretation of CBC data. Current Interpretive Data was last revised on 2017. Testing performed by: [facility], [address] [place] [phone] Blood 03/03/2024 12:2 4 PM E/M ENGINEER 03/03/2024 12:45 PM E/M ENGINEER Anna Rizzo MD LAB BLOOD ORDERABLES Final Result [facility] Department [place] [address] * (ABNORMAL) CBC with auto differential (03/03/2024 12:24 PM E/M ENGINEER) WBC 7.6 3.8 - 9.9 K/cumm Comment:Testing performed by : [facility], [address] [place] [address] Hgb 10.7(L) 11.9 - 15.5 g/dL CERNER BJ Comment:Testing performed by : [facility], [address] [place] [address] Hct 33.8(L) 35.6 - 45.5 % CERNER BJ Comment:Testing performed by : [facility], [address] [place] [address] Plt 538(H) 150 - 400 K/cumm CERNER BJ Comment:Testing performed by : [facility], [address] [place] [address] MPV 7.5 6.8 - 10.4 fL CERNER BJ Comment:Testing performed by : [facility], [address] [place] [address] RBC 4.25 3.90 - 5.20 M/cumm CERNER BJ Comment:Testing performed by : [facility], [address] [place] [address] MCV 79.6(L) 81.3 - 96.4 fL CERNER BJ Comment:Testing performed by : [facility], [address] [place] [address] MCH 25.1(L) 27.1 - 33.3 pg CERNER BJ Comment:Testing performed by : [facility], [address] [place] [address] MCHC 31.5(L) 32.3 - 35.7 g/dL CERNER BJ Comment:Testing performed by : [facility], [address] [place] [phone] RDW CV 14.8 11.1 - 14.9 % [facility] Comment:Testing performed by : [facility], [address] [place] [phone] NRBC abs 0.00 0.00 - 0.01 K/cumm [facility] Comment:Testing performed by : [facility], [address] [place] [phone] Blood 03/03/2024 12:2 4 PM E/M ENGINEER 03/03/2024 12:45 PM E/M ENGINEER Anna Rizzo MD LAB BLOOD ORDERABLES Final Result Performing Organization Address [facility] Co de Phone Number [facility] Department [place] [address] * Ferritin (03/03/2024 12:24 PM E/M ENGINEER) Ferritin 19 13 - 150 ng/mL Blood 03/03/2024 12:2 4 PM E/M ENGINEER 03/03/2024 12:48 PM E/M ENGINEER Anna Rizzo MD LAB BLOOD ORDERABLES Final Result Performing Organization Address [facility] de Phone Number [facility] Department [place] [address] * Reticulocyte Count (03/03/2024 12:24 PM E/M ENGINEER) Retics, absolute 0.052 0.020 - 0.100 M/cumm Comment:Testing performed by : [facility], [address] [place] [phone] Retics 1.2 0.5 - 1.8 % [facility] Comment:Testing performed by : [facility], [address] [place] [phone] Blood 03/03/2024 12:2 4 PM E/M ENGINEER 03/03/2024 12:45 PM E/M ENGINEER us Anna Rizzo MD LAB BLOOD ORDERABLES Final Result Performing Organization Address [facility] [place] [address] * (ABNORMAL) Iron profile w/ IBC (03/03/2024 12:24 PM E/M ENGINEER) Iron 29(L) 35 - 145 mcg/dL TIBC 368 250 - 400 mcg/dL [facility] Transferrin saturation 8(L) 20 - 50 % [facility] Blood 03/03/2024 12:2 4 PM E/M ENGINEER 03/03/2024 12:48 PM E/M ENGINEER us Anna Rizzo MD LAB BLOOD ORDERABLES Final Result Performing Organization Address [facility] [place] [address] documented in this encounter Visit Diagnoses Diagnosis Anemia, unspecified type H/O menorrhagia documented in this encounter Care Teams Prorate Clerk Relationship Specialty Start Date End Date Pierre Cisneros PA [address] [place] [address] PCP - General Internal Medicine 09/04/23 documented as of this encounter
--- OUTSIDE RECORDS SUMMARY | 2024-04-26 21:22 | XMS_ITS ---
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 Alejandro, D&C done at [facility]; the other due to low hormone [...] Overview (11/01/2020): With mesh Dr. Flynn at [facility] Tobacco use disorder complic ating , childbirth, [...] superimposed severe Pre-E Lupus (systemic lupus erythematosus) ([facility]/HCC) 0 06/22/2010 Overview (11/01/2020): ?questionable. Pt states [...] in May Malignant neoplasm of cervix (CMS/HCC) 04/21/199 7 Current Oncology Plans No current plan information found. Past Plans No past plan information found. Radiation Treatments * No radiation treatments are documented for this patient in [facility]. Treatments may have been administered in another system. Lifetime Dose Tracking * Chemical Lifetime Dose Automatic Entry Manual Entr y Fluoro Time 20.6 minutes 20.6 minutes 0 minutes Air kerma at the reference point (Ka,r) 166 mGy 1 66 mGy 0 mGy DLP 2,842 mGycm 2,842 mGycm 0 mGycm
--- OUTSIDE RECORDS SUMMARY | 2024-04-26 21:22 | XMS_ITS | Encounter Summary ---
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 Completed and approved. * Telephone Encounter - Becky Mtz RN - 12/16/2023 12:43 PM CDT documented in this encounter Plan of Treatment Not on file documented as of this encounter Visit Diagnoses Not on filedocumented in this encounter Care Teams Spiritual Counselor Relationship Specialty Start Date End Date Pierre Cisneros PA [address] [place] [id number] PCP - General Internal Medicine 09/04/23 documented as of this encounter
--- OUTSIDE RECORDS SUMMARY | 2024-04-26 21:22 | XMS_ITS | Encounter Summary ---
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 Informed patient that she would need to go through medical records to obtain that information, contact information provided. Confirmed appt times with patient: TPAP 11/04/23 @ 1100 Procedure 11/14/23, 0530 arrival. To call office PRN. documented in this encounter Plan of Treatment Not on file documented as of this encounter Visit Diagnoses Not on filedocumented in this encounter Care Teams Cloth Hauler Relationship Specialty Start Date End Date Pierre Cisneros PA [address] [place] [address] PCP - General Internal Medicine 09/04/23 documented as of this encounter
--- OUTSIDE RECORDS SUMMARY | 2024-04-26 21:22 | XMS_ITS | Encounter Summary ---
Author Organization [facility] Address [address] [place] [address] Phone Care Team Providers Care Door Hanger Name Role Phone Pierre Cisneros Primary Care Provider + Reason for Visit * Reason Onset Date Comments Appointment 10/14/2023 Encounter Details Date Type Department Care Team (Late st Contact Info) Description 10/14/2023 Telephone [facility] Radiology, Interventional Radiology [address] [place] [address] Becky Olivo, YANET Appointment Social History Tobacco Use Types Packs/Day Years [...] on file Legal Sex Female 7:09 AM FERRY PILOT Gender Identity Female 10/24/2023 9:52 AM CDT Sexual Orientation Straight 10/24/2023 9: 52 AM CDT documented as of this encounter Miscellaneous Notes * Telephone Encounter - Becky Olivo RN - 10/14/2023 2:35 PM CDT Pt LM with clinic again Wants phone number to schedule US of legs per SS and also says needs deputy director of finance phone number Patient IS expecting call back * Telephone Encounter - Becky Olivo RN - 10/14/2023 10:33 AM CDT Patient called clinic Says SS mentioned an US of her extremities and wanted to get that scheduled Patient IS expecting call back documented in this encounter Plan of Treatment Not on file documented as of this encounter Visit Diagnoses Not on filedocumented in this encounter Care Teams Door Hanger Relationship Specialty Start Date End Date Pierre Cisneros PA [address] [place] [address] PCP - General Internal Medicine 09/04/23 documented as of this encounter
--- OUTSIDE RECORDS SUMMARY | 2024-04-26 21:22 | XMS_ITS | Encounter Summary ---
Author Organization [facility] Healthcare Address [address] [place] [address] Care Team Providers Care Ncr Operator Name Role Phone Pierre Cisneros Primary Care Provider + Encounter Details Date Type Department Care Team (Late st Contact Info) Description 11/04/2023 11:00 AM CDT Pre-Admission Testing [facility] Center for Preoperative Assessment and Planning [facility] ([facility]) [address] [place] [id number] Anesthesia Record Procedure Summary Procedure Name Responsible [...] No value filed. 1615 An Stop Meds * Agents No agents on file. * Blood No blood administrations on file. 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 Gender Identity Female 10/24/2023 9:52 AM CDT Sexual Orientation Straight 10/24/2023 9: 52 AM CDT documented as of this encounter Last Filed Vital Signs Vital Sign Reading Time Taken Comments Blood Pressure - - Pulse - - Temperature - - Respiratory Rate - - Oxygen Saturation - - Inhaled Oxygen Concentration - - Weight 61.2 kg (135 lb) 11/04/2023 11:15 AM CDT Height 162.6 cm (5' 4 ) 11/04/2023 11:15 AM CDT Body Mass Index 23.17 11/04/2023 11:15 AM CDT documented in this encounter Miscellaneous Notes * Perioperative Nursing Note - Lauro Miller RN - 11/04/2023 11:00 AM CDT Center for Preoperative Assessment and Planning Perioperative Nursing Note Telephone Preoperative Evaluation ([facility]) - TELEPHONE ONLY, NO PHYSICAL EXAM Date: 11/04/23 This assessment was completed with the patient. Vitals: 11/04/23 1115 Weight: 61.2 kg (135 lb) Height: 162.6 cm (5' 4 ) CHEST CIRCUMFERENCE: Social History Tobacco Use Smoking Status Former Types: Cigarettes Smokeless Tobacco Never Substance and Sexual Activity Drug Use Never Alcohol Use Q2: How many drinks containing alcohol do you have on a typical day when you are drinking?: Patientdoes not drink Outpatient Medications Marked as Taking for the 11/04/23 encounter (Pre-Admission Testing) with [facility] TPAP NURSE Medication Sig Dispense Refill ALPRAZolam (XANAX) 1 mg tablet Take 1 tablet (1 mg total) by mouth 3 (three) times a day as needed for anxiety cloNIDine (CATAPRES) 0.3 mg tablet Take 1 tablet (0.3 mg total) by mouth nightly at bedtime dextroamphetamine-amphetamine XR (ADDERALL XR) 30 mg 24 hr capsule Take 1 capsule (30 mg total) by mouth every morning HYDROcodone-acetaminophen (NORCO) 5-325 mg per tablet Take 1 tablet by mouth every 6 (six) hours asneeded for pain lamoTRIgine (LaMICtal) 150 mg tablet Take 1 tablet (150 mg total) by mouth daily On hold levothyroxine (SYNTHROID) 175 mcg tablet Take 1 tablet (175 mcg total) by mouth network desktop support specialist before breakfast (Patient taking differently: Take 1 tablet (175 mcg total) by mouth nightly) 30 tablet 0 naltrexone (DEPADE) 50 mg tablet Take 1 tablet (50 mg total) by mouth nightly ondansetron ODT (ZOFRAN-ODT) 8 mg disintegrating tablet Take 1 tablet (8 mg total) by mouth every 8(eight) hours as needed for nausea pregabalin (LYRICA) 50 mg capsule Take 1 capsule (50 mg total) by mouth 3 (three) times a day rivaroxaban (XARELTO) 20 mg tablet Take 1 tablet (20 mg total) by mouth daily with breakfast (Patient taking differently: Take 1 tablet (20 mg total) by mouth daily with dinner) 30 tablet 3 tretinoin (RETIN-A) 0.1 % cream Apply topically nightly Wellbutrin XL 300 mg 24 hr tablet Take 1 tablet (300 mg total) by mouth nightly Implants Type Not Specified [employer] Abre 16mm 100mm Self Expand Rotate Thumbwheel Hemostatic Valve [id number] - [id number] - Implanted Inventory item: [employer] ABRE 16MM 100MM SELF EXPAND ROTATE THUMBWHEEL HEMOSTATIC VALVE [id number] Model/Cat number: [id number] Photographer Helper: [employer] Lot number: [id number] As of 10/15/2022 Status: Implanted SKIN Piercings Remaining: Yes SCREENINGS Jay index score: 95 NUTRITION PATIENT CARE PLANNING Advance Directives (For Healthcare) Have you reviewed your Advance Directive and is it valid for this stay?: No Advance Directive: Patient does not have advance directive Communication/Kosher Butcher Needs Communication Needs: None Does caregiver's language differ from patient's?: No Assistive Devices/DME: None Hearing - Right Ear: Functional Hearing - Left Ear: Functional Discharge Planning Type of Residence: Apartment Living Arrangements: Alone Support Systems: Parent Patient expects to be discharged to:: Private residence [facility] NO ADDITIONAL COMMENTS/ FOLLOW UP * Pre-Procedure Instructions - Lauro Miller RN - 11/04/2023 11:00 AM CDT [facility]ENTER FOR PREOPERATIVE ASSESSMENT AND PLANNING ([facility]) PRE-SURGICAL NURSING INSTRUCTIONS Telephone Assessment General Information Discussed with Patient: Surgery location provided to patient. Arrival time and surgical time will be provided to the patient by their surgeon. You should wear clothing that is clean, loose, comfortable and easy to get in and out of on the dayof surgery. You should remove nail coverings, artificial nails and nail moroccan prior to the day of surgery. You should leave your valuables and any jewelry at home. No metal or piercings are allowed in the operating room. You should bring your insurance card, a photo ID (example: Hydropress Operator's License) and a method of payment for any insurance copay, deductible or copay for discharge medications. You should bring a complete, up-to-date, list of all your medications on the day of surgery, including any over the counter medications or supplements you may take. Please note on your medication list, the last date & time you took each medication. The healthcare team, on the day of surgery, will ask for this information. You should bring your Advanced Directive and/or Living Will with you on the day of surgery if you have not verified a copy is already in your Epic Chart. If you are having surgery at [facility], please arrive on the day of surgery with the name and phone number of your local 24 hour pharmacy. Due to evening discharges, your routine pharmacy may be closed. In order to obtain your prescriptions that evening, your surgeon may need to send prescriptions to this pharmacy or have you take prescriptions to this pharmacy when you are discharged. Without this information, you may not be able to obtain your prescriptions that evening. A Guide for Patients Having Surgery: Your Pathway to Excellent Care OUR GOAL IS TO PROVIDE YOU WITH EXCELLENT CARE Use this guide to learn about what you can do before, during and after surgery to help your recovery. You are the most important person on your health care team. By becoming informed and involved, you can contribute to the success of your surgery. If your surgeon's directions are different than those in this guide, talk with your nurse or surgeon to confirm the information. It is important that you understand how to take care of yourself at home after surgery. Be sure to bring this guide with you on the day of surgery and take it home with you after surgery. Write down questions for your nurse or surgeon on the last page of this booklet. Important pages to be reviewed BEFORE surgery: Page 1: QR codes for Surgery Center maps Page 3: Types of Anesthesia Page 5: Tips for the day & night before surgery Page 6: When to stop eating BEFORE surgery and examples of clear liquids Page 7-10: Preventing Infection: Chlorhexidine Gluconate (CHG) Bathing Instructions You may access A Guide for Patients Having Surgery: Your Pathway to Excellent Care by the followinglink: [email or web address] How To Prepare Your Skin For Surgery Below is the Pre-Surgical Bathing Protocol you should follow for your surgery. If your surgeon provides you different bathing instructions, please follow your surgeon's orders. 2 Day CHG Bathing Protocol (no nasal ointment) PREVENTING INFECTION (DECOLONIZATION): Decolonization is the use of a topical antiseptic soap and sometimes a nasal ointment to remove bacteria (germs) from the skin's surface. Antiseptic soap: Chlorhexidine gluconate or CHG (brand name: Hibiclens??) Before surgery, your entire body must be thoroughly cleaned. CHG helps to reduce the bacteria on your skin. You may be given one or more bottles of CHG or you may be asked to obtain from your preferred pharmacy. Be sure to ask your pharmacist if you need help finding this product. SHOWERING WITH ANTISEPTIC SOAP (CHG) What You Need For Each Shower 60 mL (?? cup) of CHG 2 clean washcloths CHG Bathing Instructions First, shampoo and rinse your hair with your own shampoo (no conditioners). Do this so the antiseptic soap isn't washed off by your shampoo. Wash face with warm water. Turn off shower and stand away from the water. Use 2 clean washcloths to apply the antiseptic soap to all areas as described below: Pour 30 mL (1/8 cup) of CHG on washcloth #1: Using washcloth- start at jawline and firmly massage the soap into the skin in a circular motion to clean neck, shoulders, chest, back, both armpits, arms, hands and abdomen. Finish with legs and feet. Pour 30 mL (1/8 cup) of CHG on washcloth #2: Using washcloth- firmly massage the soap into the skinin a circular motion to clean groin area, perineum and buttocks. (Do not use CHG on genital area.) Sanchez Points: The CHG antiseptic soap will not bubble or lather very much. If you get soap in your eyes, ears or mouth, rinse well with cool water. When finished, leave the soap on your skin for 2 minutes before rinsing. Dry off with a clean fresh towel. Wear clean clothes or pajamas to sleep in. After showering DO NOT put on deodorant, hair products or conditioners, lotions or creams, powders,Vaseline or any non-essential products. If you cannot reach the surgical site, such as the back, please have someone help you. Shaving: You may shave your face, legs and underarms during your evening shower before you apply the CHG antiseptic soap. Be careful not to cut or jake your skin. Avoid shaving on the day of surgery. Deodorant: Patients following the 5-Day CHG protocol may apply deodorant on the days leading up to surgery, being sure, however, to avoid use on the evening before and day of surgery. All other products should be avoided for the full 5 days. 2-Day CHG Bathing Protocol The Evening Before Surgery: Take a shower with Antiseptic soap (CHG). Follow the steps for ???Showering with Antiseptic Soap (CHG)?? above. Change all linens on your bed so you are sleeping in clean fresh sheets and pillowcases. Remove nail coverings, artificial nails and nail moroccan. The Morning of Surgery: Take a shower with Antiseptic soap (CHG). Follow the steps for ???Showering with Antiseptic Soap (CHG)?? above. Put clean clothes on after you shower. __ Travel/Exposure Screening: Travel Screening Have you traveled outside the [place] in the last 6 months?: No Exposure Screening Have you been exposed to anyone who is sick in the last 30 days?: No Have you been exposed to or tested positive for COVID-19 within the last 10 days?: No Infectious Disease Screening Are you having any of the following:: None As of 02/13/2022 any COVID TESTING required for surgery will be set up by your surgeon's office. Please reach out to your surgeon's office if you develop any COVID symptoms, test positive for COVID or are exposed to a COVID positive person. If you have questions, please call the CPAP Staff at [phone], Saturday-Saturday 8am-4:30pm. All patients should read the below section: Information on [facility]: Please view [email or web address] (Patient & Visitor Information) for additional details regarding Advanced Directive forms, AWARE, directions, parking information, lodging, Internet access, dining and more. For MyChart information, to activate account or password recovery, please go to [email or web address] or call [phone] (toll-free: [phone]), Sat- Saturday 8am-5pm. Information for Suicide Prevention: National Suicide Prevention Lifeline (5-679- 936-JNJJ (6098)) or call or text 408. Kaleidoscope resources: [employer]. Surgery Times: For patients having surgery @ [facility] or [facility] ([facility]), if your surgeon's office has not notified you of your surgery time by NOON THE BUSINESS DAY BEFORE your surgery, please call [phone] and ask for your surgeon's office The Center for Preoperative Assessment & Planning ([facility]) does not provide arrival times for theday of surgery or provide the duration of surgery. This information is provided by your surgeon's office or by the center where you are having surgery. We appreciate your understanding. * Pre-Procedure Instructions - Maryana Gregory NP - 11/04/2023 11:00 AM CDT Center for Preoperative Assessment and Planning [facility] Clinic Location: [facility] The night before your surgery: * Do not eat anything after midnight the night before your procedure. The morning of your surgery: * You may have clear liquids on your surgery day. You must stop drinking two hours before you arrive to the surgery facility. Acceptable clear liquids include water, clear sports drinks, black coffee, tea, or clear soda. DO NOT drink any milk, creamer, or alcohol. * Your surgeon's office may have provided additional instructions or restrictions. Please follow those instructions. * You may brush your teeth and rinse your mouth out. * Do not glue your dentures. * Do not wear jewelry, body piercings, makeup, hairpins, false eyelashes or contact lenses to the hospital. * Leave any valuables at home or with your family. * If you are still having menstrual cycles, you should come with a full bladder on the morning of surgery in order to provide a urine sample. Outpatient Surgery: * You must have a responsible adult drive you home and stay with you for 24 hours after your surgery * You cannot be alone at home or in a hotel * Please call your surgeon's office if you do not have someone to drive you home and/or stay with you after surgery * Please bring any items you may need to spend the night in the hospital. Sometimes patients need to be cared for in the hospital overnight. Instructions For Your Medications: Pre-Surgery Instructions: Medication Instructions ALPRAZolam (XANAX) 1 mg tablet Take on day of surgery if needed cloNIDine (CATAPRES) 0.3 mg tablet Continue per normal schedule dextroamphetamine-amphetamine XR (ADDERALL XR) 30 mg 24 hr capsule Don't take on day of surgery HYDROcodone-acetaminophen (NORCO) 5-325 mg per tablet Take on day of surgery if needed lamoTRIgine (LaMICtal) 150 mg tablet Continue per normal schedule levothyroxine (SYNTHROID) 175 mcg tablet Continue per normal schedule naltrexone (DEPADE) 50 mg tablet Stop taking 3 days prior to surgery ondansetron ODT (ZOFRAN-ODT) 8 mg disintegrating tablet Take on day of surgery if needed pregabalin (LYRICA) 50 mg capsule Continue per normal schedule rivaroxaban (XARELTO) 20 mg tablet Continue taking tretinoin (RETIN-A) 0.1 % cream Don't take on day of surgery Wellbutrin XL 300 mg 24 hr tablet Continue per normal schedule General Instructions For Medications: For medications that you are instructed to take on the morning of surgery, take the medications with a few sips of water. Stop all of these medications 7-14 days prior to your surgery: Vitamin E, Herbal medicines, Diet Pills If you use inhalers, please bring them with you on the day of your procedure. If you have pain, you may take tylenol (acetaminophen). Do not take more than 6 tablets or 3000 mg (3 g) within a 24 period. Call your surgeon and the CPAP clinic if any of the following happens before surgery: Any changes in your health You have a fever You have any signs of an infection (chest, urinary tract or tooth) You have been to the Emergency Room or were in the hospital You have started taking any new medications If laboratory testing was completed during your visit, we will only contact you regarding any results that require you to take additional action prior to your planned procedure. documented in this encounter Plan of Treatment Not on file documented as of this encounter Visit Diagnoses Not on filedocumented in this encounter Discontinued Medications Medication Sig Discontinue Reason Start Date End Da te hydrOXYzine (ATARAX) 50 mg tablet Take 1 tablet (50 mg total) by mouth network desktop support specialist before breakfast 10/19/2022 11/04/2023 buPROPion XL (WELLBUTRIN XL) 150 mg 24 hr tablet Take 1 tablet (150 mg total) by mouth daily 10/19/2022 11/04/2023 cloNIDine (CATAPRES) 0.2 mg tablet 11/04/2023 lamoTRIgine (LaMICtal) 25 mg tablet 11/04/2023 nicotine (NICODERM CQ) 14 mg Apply 1 patch every day by transdermal route for 14 days. 11/04/2023 topiramate (TOPAMAX) 100 mg tablet 11/28/2022 11/04/2023 polyethylene glycol (MIRALAX) 17 gram/dose bulk powderIndications:Hea lthcare maintenance Take 17 g by mouth daily as needed (To be used daily) 01/07/2023 11/04/2023 HYDROcodone-acetamino phen (NORCO) 7.5-325 mg per tablet Take 1 tablet by mouth every 4 (four) hours as needed 11/04/2023 buPROPion SR (WELLBUTRIN SR) 150 mg 12 hr tablet 01/05/2023 11/04/2023 acetaminophen (TYLENOL) 500 mg tablet Take 2 tablets (1,000 mg total) by mouth 06/03/2023 11/04/2023 acetaminophen-codeine (TYLENOL with CODEINE #3) 300-30 mg per tablet TK 1 TO 2 TS PO Q 4 TO 6 H PRN 11/04/2023 azithromycin (ZITHROMAX) 250 mg tablet TAKE 2 TABLETS (500 MG) BY ORAL ROUTE ONCE DAILY FOR 1 DAY THEN 1 TABLET (250 MG) BY ORAL ROUTE ONCE DAILY FOR 4 DAYS 11/04/2023 butalbital-acetaminop hen-caffeine (ESGIC) 50-325-40 mg per tablet TK 1-2 TS PO Q 4-6 HOURS PRN 11/04/2023 calcium carbonate (TUMS) 500 mg (200 mg elemental calcium) chewable tablet Take 1 tablet/chew tab (500 mg total) by mouth as needed 08/03/2010 11/04/2023 cetirizine (ZyrTEC) 10 mg tablet Take 1 tablet (10 mg total) by mouth daily 11/04/2023 ciprofloxacin (CIPRO) 500 mg tablet Take 1 tablet every 12 hours by oral route for 10 days, for dysuria. 08/14/2023 11/04/2023 clopidogreL (PLAVIX) 75 mg tablet Take 1 tablet (75 mg total) by mouth 10/19/2022 11/04/2023 cyanocobalamin (Vitamin B-12) 1,000 mcg/mL injection Inject 1 mL every month by intramuscular route. 11/07/2022 11/04/2023 diazePAM (VALIUM) 5 mg tablet Take 1 tablet (5 mg total) by mouth 2 (two) times a day 10/18/2022 11/04/2023 docusate sodium (COLACE) 100 mg capsule Take 1 capsule (100 mg total) by mouth 2 (two) times a day as needed 09/14/2010 11/04/2023 fluticasone propionate (FLONASE) 50 mcg/actuation nasal spray 11/04/2023 Focalin XR 20 mg 24 hr capsule 05/21/2023 11/04/2023 hydrOXYzine (VISTARIL) 50 mg capsule 12/30/2022 11/04/2023 lidocaine (LIDODERM) 5 % 12/17/2022 11/04/2023 meloxicam (MOBIC) 7.5 mg tablet TK 1 T PO WITH FOOD QD Linzess 145 mcg capsule 04/17/2023 11/04/2023 metoclopramide (REGLAN) 5 mg tablet Take 1 tablet 3 times a day by oral route before meals. 11/26/2022 11/04/2023 multivitamin tabletIndications:Vit salmeron Deficiency Prevention Take 1 tablet by mouth daily 01/21/2023 11/04/2023 predniSONE (DELTASONE) 50 mg tablet Take 1 tablet (50 mg) by mouth once as needed (see instructions below) for up to 3 doses Take 1 tablet 13, 7, 1 hour before procedure 06/20/2023 11/04/2023 venlafaxine XR (EFFEXOR-XR) 37.5 mg 24 hr capsule 11/04/2023 ziprasidone (GEODON) 40 mg capsule Take 1 capsule (40 mg total) by mouth 2 (two) times a day with meals 10/18/2022 11/04/2023 documented as of this encounter Historical Medications * This list may reflect changes made after this encounter. pregabalin (LYRICA) 50 mg capsuleIndicatio ns:pain Take 1 capsule (50 mg total) by mouth 3 (three) times a day tretinoin (RETIN-A) 0.1 % creamIndications :Acne Vulgaris Apply topically nightly 10/01/2023 Wellbutrin XL 300 mg 24 hr tabletIndication s:Anxiety with Depression Take 1 tablet (300 mg total) by mouth nightly Half tablet 05/30/2021 HYDROcodone-acet aminophen (NORCO) 5-325 mg per tabletIndication s:Pain Take 1 tablet by mouth every 6 (six) hours as needed for pain 10/30/2023 lamoTRIgine (LaMICtal) 150 mg tablet Take 1 tablet (150 mg total) by mouth daily On hold 01/07/2023 cloNIDine (CATAPRES) 0.3 mg tabletIndication s:hypertension Take 1 tablet (0.3 mg total) by mouth nightly at bedtime 10/17/2023 4 added in this encounter Care Teams Ncr Operator Relationship Specialty Start Date End Date Pierre Cisneros PA [address] [place] [address] PCP - General Internal Medicine 09/04/23 documented as of this encounter
--- OUTSIDE RECORDS SUMMARY | 2024-04-26 21:22 | XMS_ITS | Encounter Summary ---
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 Diesel Powerplant Mechanic Name Role Phone Pierre Cisneros Primary Care Provider + Reason for Referral * MRI/CAT/PET Scan (Routine) - Closed Specialty Diagnoses / Procedures Referred By Contac t Referred To Contact Radiology Diagnoses May-Thurner syndrome Procedures CT Abdomen Pelvis W Contrast Umberto Garcia MD [address] [facility] [address] [place] [address] Phone: tel: fax: [address] [phone] Referral ID Status Reason Start Date Expiration Date Visits Re quested Visits Authorized [id number] Closed 12/17/2023 12/16/2024 1 1 Reason for Visit * Reason Onset Date Comments Appointment 11/20/2023 Encounter Details Date Type Department Care Team (Late st Contact Info) Description 11/20/2023 Telephone [facility] Radiology [address] [place] [address] Becky Mtz, RN Appointment Social History Tobacco Use Types Packs/Day [...] on file 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 Gender Identity Female 10/24/2023 9:52 AM CDT Sexual Orientation Straight 10/24/2023 9: 52 AM CDT documented as of this encounter Miscellaneous Notes * Telephone Encounter - Becky Olivo RN - 11/26/2023 12:29 PM CDT Pt wanted CT on 01/02 R/s to then Phone with SS 01/08 (clinic day) Sent info to pt mychart and letter in mail * Telephone Encounter - Becky Olivo RN - 11/26/2023 8:35 AM CDT Attempted to reach above number, left message Held appt for CT 12/17 and need to book follow up with SS * Telephone Encounter - Nga Pruitt CMA - 11/25/2023 12:53 PM CDT Attempted to contact patient regarding CT scan and LM Attentively scheduled for 12/10/23 at 2:40 pm with the arrival time of 2:10 pm. NOP 2 hours prior at the [facility] * Telephone Encounter - Nga Pruitt CMA - 11/25/2023 9:10 AM CDT Attempted to contact patient, left message Letter sent to pt * Telephone Encounter - Becky Olivo RN - 11/22/2023 9:16 AM CDT Attempted to reach above number, left message * Telephone Encounter - Becky Olivo RN - 11/21/2023 12:27 PM CDT Attempted to reach above number, left message * Telephone Encounter - Becky Mtz RN - 11/20/2023 2:15 PM CDT Spoke with pt. She has been more tired than usual post procedure. Does have bruising, denies baseball-like hardness at site. Encouraged warm compress, pt has been doing that. Still having same pain in leg as before procedure. Explained that it will take time for everything to heal. Will plan to have CT abd/pelvis with contrast in one month, followed by telehealth visit with Dr. Garcia. Will send [facility] to assist with scheduling. Orders placed. Routed to clinic for scheduling. documented in this encounter Plan of Treatment Not on file documented as of this encounter Results * CT Abdomen Pelvis W Contrast (01/03/2024 11:16 AM CDT) Anatomical Region Laterality Modality Body N/A Computed Tomogra phy 01/03/2024 12:2 1 PM CDT Impressions 01/03/2024 12:21 PM CDT Interval left common/proximal external iliac vein stent placement into a pre-existing left common iliac vein stent. ??There is relative uniform hypoattenuation of the left common and proximal external iliac veins within the region of the stents which is favored to be artifactual given patency of the external iliac vein just distal to the stent and absence of edema within the left lower extremity. No definite thrombus is seen but evaluation is somewhat limited. Electronically signed by: Octavia Hartmann M.D. 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 TECHNIQUE: Transaxial computed tomographic images of the abdomen and pelvis were obtained after the administration of Optiray 350 68 mL according to IVC protocol. COMPARISON: CT dated 10/04/2023 FINDINGS: Mild right basilar atelectasis. ??No pleural effusion or pneumothorax. No pericardial effusion. No focal liver lesion. ??No biliary duct dilation. ??The gallbladder is normal. ??The portal and superior mesenteric veins are patent. The spleen, pancreas, and bilateral adrenal glands are normal. ??The kidneys enhance symmetrically. ??No hydronephrosis. ??The bladder is decompressed. ??Anteverted uterus. ??No suspicious adnexal mass. ??There are likely nabothian cysts. Large volume stool throughout the colon. ??The appendix is normal. ??No bowel obstruction. ??No free air or free intraperitoneal fluid. ??No abdominal or pelvic lymphadenopathy. There has been interval stent placement into the left common iliac vein extending into the proximal left external iliac vein into a pre-existing left common iliac vein stent. ??There is relative homogenous hypoenhancement of the left common and proximal external iliac veins within the regions of the stent which may be artifactual due to adjacent stents. ??The left external iliac vein just distal to the stent is patent. ??There is no downstream soft tissue edema. The abdominal aorta is normal in caliber. No suspicious osseous lesions. 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 TECHNIQUE: Transaxial computed tomographic images of the abdomen and pelvis were obtained after the administration of Optiray 350 68 mL according to IVC protocol. COMPARISON: CT dated 10/04/2023 FINDINGS: Mild right basilar atelectasis. No pleural effusion or pneumothorax. No pericardial effusion. No focal liver lesion. No biliary duct dilation. The gallbladder is normal. The portal and superior mesenteric veins are patent. The spleen, pancreas, and bilateral adrenal glands are normal. The kidneys enhance symmetrically. No hydronephrosis. The bladder is decompressed. Anteverted uterus. No suspicious adnexal mass. There are likely nabothian cysts. Large volume stool throughout the colon. The appendix is normal. No bowel obstruction. No free air or free intraperitoneal fluid. No abdominal or pelvic lymphadenopathy. There has been interval stent placement into the left common iliac vein extending into the proximal left external iliac vein into a pre-existing left common iliac vein stent. There is relative homogenous hypoenhancement of the left common and proximal external iliac veins within the regions of the stent which may be artifactual due to adjacent stents. The left external iliac vein just distal to the stent is patent. There is no downstream soft tissue edema. The abdominal aorta is normal in caliber. No suspicious osseous lesions. IMPRESSION: Interval left common/proximal external iliac vein stent placement into a pre-existing left common iliac vein stent. There is relative uniform hypoattenuation of the left common and proximal external iliac veins within the region of the stents which is favored to be artifactual given patency of the external iliac vein just distal to the stent and absence of edema within the left lower extremity. No definite thrombus is seen but evaluation is somewhat limited. Electronically signed by: Octavia Hartmann M.D. Umberto Garcia MD IM CT PROCEDURES Final Result documented in this encounter Visit Diagnoses Diagnosis May-Thurner syndrome- Primary Compression of vein May-Thurner syndrome Compression of vein documented in this encounter Care Teams Diesel Powerplant Mechanic Relationship Specialty Start Date End Date Pierre Cisneros PA [address] [place] [address] PCP - General Internal Medicine 09/04/23 documented as of this encounter
--- OUTSIDE RECORDS SUMMARY | 2024-04-26 21:22 | XMS_ITS | Encounter Summary ---
Author Organization [facility] Healthcare Address [address] [place] [address] Care Team Providers Care Sports Medicine Masseur Name Role Phone Pierre Cisneros Primary Care Provider + Encounter Details Date Type Department Care Team (Latest Contact Info) Description 01/09/2024 9:43 PM CDT - 01/09/2024 11:59 PM CDT Hospital Encounter 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 Gender Identity Female 10/24/2023 9:52 AM CDT Sexual Orientation Straight 10/24/2023 9: 52 AM CDT documented as of this encounter Medications at Time of Discharge ALPRAZolam (XANAX) 1 mg tabletIndications:an xiety Take 1 tablet (1 mg total) by mouth 3 (three) times a day as needed for anxiety 01/21/2023 cetirizine (ZyrTEC) 10 mg tablet Take 1 tablet (10 mg total) by mouth daily 12/31/2023 cloNIDine (CATAPRES) 0.3 mg tabletIndications:hy pertension Take 1 tablet (0.3 mg total) by mouth nightly Hold if systolic BP <110 11/15/2023 clonidine HCl/chlorthalidone (CLONIDINE-CHLORTHAL IDONE ORAL) 10/31/2023 dextroamphetamine-am phetamine XR (ADDERALL XR) 30 mg 24 hr capsuleIndications:A ttention-Deficit Hyperactivity Disorder Take 1 capsule (30 mg total) by mouth every morning 06/04/2023 HYDROcodone-acetamin ophen (NORCO) 5-325 mg per tabletIndications:Pa in Take 1 tablet by mouth every 6 (six) hours as needed for pain 10/30/2023 lamoTRIgine (LaMICtal) 150 mg tablet Take 1 tablet (150 mg total) by mouth daily On hold 01/07/2023 levoFLOXacin (LEVAQUIN) 750 mg tablet Take by mouth daily For ten days levothyroxine (SYNTHROID) 150 mcg tablet Take 1 tablet (150 mcg total) by mouth daily 12/10/2023 lidocaine (ASPERCREME) 4 % adhesive patch,medicated Place 1 patch on the skin daily 20 patch 11/15/2023 Linzess 145 mcg capsule Take 1 tablet by mouth daily naltrexone (DEPADE) 50 mg tabletIndications:Pr evention of Opioid Abuse Take 1 tablet (50 mg total) by mouth nightly 05/10/2023 nortriptyline (PAMELOR) 10 mg capsule Take 1 capsule every day by oral route at bedtime for 30 days. ondansetron ODT (ZOFRAN-ODT) 8 mg disintegrating tablet Take 1 tablet (8 mg total) by mouth every 8 (eight) hours as needed for nausea 20 tablet 11/15/2023 oxyCODONE (ROXICODONE) 5 mg immediate release tabletIndications:Pa in Take 1 tablet (5 mg total) by mouth every 4 (four) hours as needed for pain 10 tablet 11/15/2023 pregabalin (LYRICA) 50 mg capsuleIndications:p ain Take 1 capsule (50 mg total) by mouth 3 (three) times a day solifenacin (VESIcare) 10 mg tablet Take 1 tablet (10 mg total) by mouth daily topiramate (TOPAMAX) 100 mg tablet Take 1 tablet (100 mg total) by mouth 2 (two) times a day 11/11/2023 tretinoin (RETIN-A) 0.1 % creamIndications:Acn e Vulgaris Apply topically nightly 10/01/2023 Wellbutrin XL 300 mg 24 hr tabletIndications:An xiety with Depression Take 1 tablet (300 mg total) by mouth nightly Half tablet 05/30/2021 rivaroxaban (XARELTO) 20 mg tablet Take 1 tablet (20 mg total) by mouth daily with breakfast 30 tablet 3 10/09/2023 4 documented as of this encounter Discharge Disposition Disposition Code Departure Means Destination Discharge to home or self care documented in this encounter Plan of Treatment Not on file documented as of this encounter Procedures Procedure Name Priority Date/Time Associated Diagnosis Comments US TRANSFER OF OUTSIDE FILMS Routine 01/09/2024 9:43 PM CDT documented in this encounter Results * US Outside Reference (01/09/2024 9:43 PM CDT) Impressions [facility] - 01/09/2024 9:43 PM CDT These images are for Reference purposes only and have not been reviewed by [facility]. ??There will be no report generated by a [facility] Radiologist. Narrative RAD_PACS[facility] - 01/09/2024 9:43 PM CDT EXAMINATION: ??Images For Reference Purposes Only us Umberto Garcia MD IMG US PROCEDURES Final Result [facility] documented in this encounter Visit Diagnoses Not on filedocumented in this encounter Care Teams Sports Medicine [employer]seur Relationship Specialty Start Date End Date Pierre Cisneros PA [address] [place] [address] PCP - General Internal Medicine 09/04/23 documented as of this encounter
--- OUTSIDE RECORDS SUMMARY | 2024-04-26 21:22 | XMS_ITS | Encounter Summary ---
Author Organization [facility] Healthcare Address [address] [place] [address] Care Team Providers Care Curator Of Collections Name Role Phone Pierre Cisneros Primary Care Provider + Reason for Visit * Auth/Cert (Routine) Specialty Diagnoses / Procedures Referred By Contac t Referred To Contact Diagnoses May-Thurner syndrome Procedures n/a Referral ID Status Reason Start Date Expiration Date Visits Re quested Visits Authorized [id number] 1 1 Encounter Details Date Type Department Care Team (Late st Contact Info) Description 11/14/2023 4:57 PM CDT - 11/15/2023 3:00 PM CDT Hospital Encounter [facility] [address] [place] [address] Raysa Lopez MD [address] [place] [address] Sophy Leal MD [address] [place] [address] Umberto Garcia MD [address] [facility] [address] [place] [address] Jagdeep Guillory CRNA [address] [place] [address] Arthralgia of both knees (Primary Dx); May-Thurner syndrome; Carpal tunnel syndrome on left Discharge Disposition: Discharge to home or self [...] on file 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 Gender Identity Female 10/24/2023 9:52 AM CDT Sexual Orientation Straight 10/24/2023 9: 52 AM CDT documented as of this encounter Last Filed Vital Signs Vital Sign Reading Time Taken Comments Blood Pressure 134/75 11/15/2023 1:05 PM CDT Pulse 84 11/15/2023 12:25 PM CDT Temperature 36.6 ??C (97.9 ??F) 11/15/2023 12:25 PM C DT Respiratory Rate 14 11/15/2023 8:00 AM CDT Oxygen Saturation 100% 11/15/2023 12:25 PM CDT Inhaled Oxygen Concentration - - Weight 61.7 kg (136 lb) 11/14/2023 5:30 PM CDT Height 162.6 cm (5' 4 ) 11/14/2023 5:30 PM CDT Body Mass Index 23.34 11/14/2023 5:30 PM CDT documented in this encounter Discharge Summaries * Raysa Lopez MD - 11/15/2023 1:57 PM CDT Inpatient Discharge Summary BRIEF OVERVIEW Admitting Provider: Raysa Lopez MD Discharge Provider: Raysa Lopez MD Primary Care Physician at Discharge: Pierre Cisneros PA [phone] Admission Date: 11/14/2023 Discharge Date: 11/15/2023 Admission Location: [facility] Problems/Diagnoses: Principal Problem: May-Thurner syndrome Active Problems: Deep vein thrombosis (DVT) of left lower extremity (HCC) Hypothyroidism Mixed anxiety and depressive disorder Seizure disorder (CMS/HCC) (HCC) Resolved Problems: No resolved hospital problems. DETAILS OF HOSPITAL STAY Presenting Problem/History of Present Illness: Sahra Parks is a 43 y.o. female with past medical history significant for May- Thurner syndrome, hypothyroidism, anxiety, admitted for observation after getting a left iliac and right iliac venogramalong with stenting of the left common iliac artery. She tolerated the procedure well Per IR procedure note, the patient was found to have improved flow after stenting and angioplasty. During my encounter-patient complained of back pain, but denied fever, chills, shortness for breath, chest pain, nausea, vomiting, diarrhea. Hospital Course: May-Thurner syndrome S/p left iliac venogram, right iliac venogram and left common iliac artery stenting with Interventional Radiology. She tolerated the procedure well. Some urinary retention and hypotension post-op butseems to be chronic. Stable at time of d/c. She was started on Plavix + xarelto by IR; cleared for d/c. Seizure disorder Continue lamotrigine and Lyrica Mixed anxiety and depressive disorder Continue Wellbutrin Xanax p.r.n. continued Hypothyroidism Continue Synthroid Deep vein thrombosis (DVT) of left lower extremity On Xarelto Active Issues Requiring Follow-up: F/u IR F/u PCP Discharge Details Physical Exam at Discharge: Discharge Condition: stable Pulse: 84 Resp: 14 BP: 134/75 Temp: 36.6 ??C (97.9 ??F) Weight: 61.7 kg (136 lb) Discharge Disposition: Discharge to home or self care Code Status at Discharge: full Discharge Instructions: Activity Instructions Post-Discharge Activity (Specify Additional Restrictions in Comments) No driving or operating machinery while taking narcotics. Post-Discharge Activity: May shower after dressing removed. May shower 24 hours after procedure. If a dressing is present, you may remove the dressing to shower. If skin glue is present, leave site open to air after shower. If no skin glue is present, cover with dressing/band-aid that is changed daily until the site appears well healed. Post-Discharge Activity: No water submersion for 4 days--including baths, hot tubs, whirlpools, swimming pools. Post-Discharge Activity: Normal activity as tolerated. Diet Instructions Adult Discharge Diet Diet Type: Return to previous diet Other Instructions Call provider for: Temperature -Temperature greater than 101 degrees F Call provider for: difficulty breathing or chest pain Call provider for: persistent nausea or vomiting Call provider for: redness, tenderness, or signs of infection (pain, swelling, redness, odor or green/yellow discharge around incision site) Call provider for: severe uncontrolled pain Call provider for: Any questions or concerns. Call Interventional Radiology at [phone] Saturday-Saturday 730AM-4PM. Nights and weekends, please call [phone] and ask for the Interventional Radiologist biofuels production associate to be paged. Call provider for: Extreme bruising at the wound site or excessive bleeding. Call provider for: Persistent dizziness or light-headedness. Call provider for: Redness, tenderness, or signs of infection (pain, swelling, redness, odor or green/yellow discharge around wound site). Call provider for: Temperature greater than 100.4 F Call provider for: headache, visual disturbances, weakness and speech changes Lifting Restrictions (Specify) No lifting more than 5 pounds for 1 week. Maximum Weigth to Lift: 5 Pounds Post-Discharge Dressing Care (see comments) The dressing should remain in place for 24 hours. You may remove it at that time and shower if you wish. The dressing should be changed at least once daily or sooner as needed. You should keep a dressing over the procedural site until the site appears well healed. If skin glue was used to close the procedural site, you do not need to apply any other bandages. The skin glue will fall off on its own in 1-2 weeks. Special Instructions Your BP was low during admission. This may be due to the procedure. Ensure you are eating/drinking adequately. Check your BP daily at home. If your SBP (top number) is lower than 110, you should holdyour nightly clonidine. Continue to follow up with your PCP for further management of BP. Walker Height: 162.6 cm (5' 4 ) Weight: 61.7 kg (136 lb) Type: Adult (163-188 cm tall) Bariatric (>300#): No Wheeled walker: Yes Wheel type: Front wheeled Leg extenders: No Walker basket: No Patient has mobility limitation requiring use and patient is able to use walker; and functional mobility deficit is resolved by use of walker?: Yes DME services provided by: [facility] Discharge Medications: Current Medications TAKE these medications ALPRAZolam 1 mg tablet Take 1 tablet (1 mg total) by mouth 3 (three) times a day as needed for anxiety For: anxious Commonly known as: XANAX cloNIDine 0.3 mg tablet Take 1 tablet (0.3 mg total) by mouth nightly Hold if systolic BP <110 For: high blood pressure Commonly known as: CATAPRES clopidogreL 75 mg tablet Take 1 tablet (75 mg total) by mouth daily Commonly known as: PLAVIX Start taking on: November 16, 2023 dextroamphetamine-amphetamine XR 30 mg 24 hr capsule Take 1 capsule (30 mg total) by mouth every morning For: attention deficit disorder with hyperactivity Commonly known as: ADDERALL XR HYDROcodone-acetaminophen 5-325 mg per tablet Take 1 tablet by mouth every 6 (six) hours as needed for pain For: pain Commonly known as: NORCO lamoTRIgine 150 mg tablet Take 1 tablet (150 mg total) by mouth daily On hold Commonly known as: LaMICtal levothyroxine 175 mcg tablet Take 1 tablet (175 mcg total) by mouth lens gauger before breakfast Commonly known as: SYNTHROID naltrexone 50 mg tablet Take 1 tablet (50 mg total) by mouth nightly For: prevention of relapse to opioid dependence Commonly known as: DEPADE ondansetron ODT 8 mg disintegrating tablet Take 1 tablet (8 mg total) by mouth every 8 (eight) hours as needed for nausea Commonly known as: ZOFRAN-ODT pregabalin 50 mg capsule Take 1 capsule (50 mg total) by mouth 3 (three) times a day For: pain Commonly known as: LYRICA rivaroxaban 20 mg tablet Take 1 tablet (20 mg total) by mouth daily with breakfast Commonly known as: XARELTO tretinoin 0.1 % cream Apply topically nightly For: acne Commonly known as: RETIN-A Wellbutrin XL 300 mg 24 hr tablet Take 1 tablet (300 mg total) by mouth nightly For: anxiousness associated with depression Generic drug: buPROPion XL Outpatient Follow-Up: Future Appointments Date Time Provider Department Center 11/19/2023 10:15 AM Hilario Lundberg II, MD [facility] Specialty 01/03/2024 8:15 AM Chantel Zhang MD [facility]U [facility] 5C ENNIS Rheum 02/10/2024 9:45 AM Hilario Lundberg II, MD [facility] Specialty 03/03/2024 11:15 AM Anna Rizzo MD HEM CAM 7 Aaron 03/03/2024 12:15 PM LAB, [facility] IM ONC CAM 7 ONC LAB CAM7 ONC LAB Regarding patient's walker: Patient has a mobility limitation that significantly impairs his/her ability to participate in one or more mobility-related activities of daily living (MRADL) in the home. The functional deficit can NOT be sufficiently resolved by use of a cane or crutch. Patient can safely use the walker documented in this encounter Discharge Instructions * Discharge Instructions* Chanda Bales RN - 11/15/2023 8:03 AM CDT Interventional Radiology Discharge Instructions/Note Diagnosis: May-Thurner syndrome, DVT Procedure: Left and right iliac venogram with left common iliac stenting Limitations: [] No lifting greater than 5 pounds for 7 days. [x] You received medication that may affect your judgement. Stay with a responsible person today. Do not drive, operate machinery, make any legal or important decisions, or drink alcohol until tomorrow. No smoking unless another adult is present. Other Diet: You may resume your previous diet. Medication: [x] Usual medications; check with your regular doctor for any questions. Do not take any new pain medicine, sleeping pills or sedatives unless approved by your doctor. [] Prescriptions given for the following: Procedure Site Care: [] teaching sheet given [x] Skin glue was used to close your incision. See teaching sheet. [x] Keep site clean and dry. [x] You may shower tomorrow. Do not bathe or submerge the area for 2 weeks until site is completelyhealed. [x] Remove dressing after 24 hours. You can replace the dressing with a regular band-aide or another dry dressing if it chafes on your clothing. [] Cover entire area with plastic and tape down edges before showering to keep site clean and dry. [] The suture at your dialysis access site may be removed by the dialysis staff on ___/___/___ (date). To contact an Interventional Radiologist at [facility] call [phone] Saturday through Saturday from 7:30am-4:30pm. At all other times call [phone] and ask that the Interventional Radiologist be paged. To contact an Interventional Radiologist at [facility] call [phone] Saturday through Saturday from 7:30am-3:30pm. Special instructions: Please call Interventional Radiology for any procedure related questions or problems including: Extreme swelling or bruising at the site. Unusual drainage or bleeding from procedure site. Fever of 101.5 F for more than 24 hours. Severe procedure related pain. Follow up care: Our nurse coordinators will contact you after your procedure to check in clinically and to schedulefollow up clinical appointment, as needed. * Attachments The following attachments cannot be sent through Care Everywhere. * Clopidogrel (By mouth) (Mauritian) documented in this encounter Medications at Time of Discharge ALPRAZolam (XANAX) 1 mg tabletIndications:an xiety Take 1 tablet (1 mg total) by mouth 3 (three) times a day as needed for anxiety 01/21/2023 cloNIDine (CATAPRES) 0.3 mg tabletIndications:hy pertension Take [...] total) by mouth daily On hold 01/07/2023 lidocaine (ASPERCREME) 4 % adhesive patch,medicated Place 1 patch on the skin daily 20 patch 11/15/2023 naltrexone (DEPADE) 50 mg tabletIndications:Pr evention of Opioid Abuse Take 1 tablet (50 mg total) by mouth nightly 05/10/2023 ondansetron ODT (ZOFRAN-ODT) 8 mg disintegrating tablet [...] by mouth 3 (three) times a day topiramate (TOPAMAX) 100 mg tablet Take 1 tablet (100 mg total) by mouth 2 (two) times a day 11/11/2023 tretinoin (RETIN-A) 0.1 % creamIndications:Acn e Vulgaris Apply topically nightly 10/01/2023 Wellbutrin XL 300 mg 24 hr tabletIndications:An xiety with Depression Take 1 tablet (300 mg total) by mouth nightly Half tablet 05/30/2021 clopidogreL (PLAVIX) 75 mg tablet Take 1 tablet (75 mg total) by mouth daily 30 tablet 11/16/2023 rivaroxaban (XARELTO) 20 mg tablet Take 1 tablet (20 mg total) by mouth daily with breakfast 30 tablet 3 10/09/2023 4 documented as of this encounter Ordered Prescriptions Prescription Sig Dispense Quantity Refills Last Filled Start Date End Date oxyCODONE (ROXICODONE) 5 mg immediate release tabletIndications:Pa in Take 1 tablet (5 mg total) by mouth every 4 (four) hours as needed for pain 10 tablet 11/15/2023 lidocaine (ASPERCREME) 4 % adhesive patch,medicated Place 1 patch on the skin daily 20 patch 11/15/2023 cloNIDine (CATAPRES) 0.3 mg tabletIndications:hy pertension Take 1 tablet (0.3 mg total) by mouth nightly Hold if systolic BP <110 11/15/2023 ondansetron ODT (ZOFRAN-ODT) 8 mg disintegrating tablet Take 1 tablet (8 mg total) by mouth every 8 (eight) hours as needed for nausea 20 tablet 11/15/2023 clopidogreL (PLAVIX) 75 mg tablet Take 1 tablet (75 mg total) by mouth daily 30 tablet 11/16/2023 4 documented in this encounter Discharge Disposition Disposition Code Departure Means Destination Comment s Discharge to home or self care documented in this encounter Progress Notes * Nicho Faustin, YANET - 11/15/2023 2:05 PM CDT 11/14/23 1701 Discharge Summary Equipment/Provider Needs Home Equipment Needs Identified Anticipated discharge level of care Private residence Actual Discharge Level of Care Private residence Does Actual Level of Care Match Care Team Recommendation? Yes Post Acute Care Plan Home Care Services N/A OP Services N/A DME Yes Durable Medical Equipment Walker (wheeled) DME Name and Contact Number [facility] DME Discharge Additional Assistance Does the patient need discharge transport arranged? Yes Type of Transportation Medicaid transport Has discharge transport been arranged? Yes Details of Transportation [facility] D/C Transport Anticipated Date 11/15/23 D/C Transport Anticipated Time 1430 Post Discharge Care Provider Post Discharge Care Plan DC Summary has been faxed to next level of care provider (see Follow Up Providers) Per medical team, patient is medically stable for discharge at this time. Transportation will be provided by [facility]. [facility] reservation # [phone] . Patient and/or family are agreeable with the plan. If any further discharge needs arise, please contact the covering family independence case manager. * Alisa Bach NP - 11/15/2023 1:26 PM CDT Daily Progress Note Division of Hospital Medicine Name: Sahra Parks : 1980 Today's Date: November 15, 2023 Age: 43 y.o. female Admission: 11/14/2023 Bed: [id number] LOS: 0 days Subjective Interval History Hypotensive this AM, improved with IVF. Voiding spontaneously but does have chronic retention. Having chronic back pain. No pain or bleeding at groin site. Eating, ambulating. IR signed off for d/c. Objective Scheduled Meds PRN Meds Infusions buPROPion XL, 300 mg, oral, Nightly [Held by Provider] cloNIDine, 0.3 mg, oral, Nightly clopidogreL, 75 mg, oral, Daily dextroamphetamine-amphetamine XR, 30 mg, oral, QAM lamoTRIgine, 150 mg, oral, Daily levothyroxine, 175 mcg, oral, Daily - 0600 lidocaine, 1 patch, transdermal, Q24H pregabalin, 50 mg, oral, TID rivaroxaban, 20 mg, oral, Daily with dinner sodium chloride 0.9%, 0.5-20 mL, intra-catheter, Q8H GERA sodium chloride 0.9%, 5-10 mL, intra-catheter, Q12H GERA ALPRAZolam, 1 mg, oral, TID PRN sodium chloride 0.9%, 30 mL, intravenous, PRN ondansetron ODT, 8 mg, oral, Q8H PRN oxyCODONE-acetaminophen, 1 tablet, oral, Q4H PRN prochlorperazine, 5 mg, intravenous, Q6H PRN sodium chloride 0.9%, 0.5-20 mL, intra-catheter, PRN sodium chloride 0.9%, 10-20 mL, intra-catheter, PRN sodium chloride 0.9%, 30 mL/hr, Last Rate: 30 mL/hr (11/14/23 1433) Vitals Most Recent Vitals: T 36.6 ??C (97.9 ??F), HR 120, BP 134/75, RR 14, SpO2 99 %. 24hr Min/Max: Temp Min: 36.4 ??C (97.5 ??F) Max: 36.7 ??C (98.1 ??F) Pulse Min: 49 Max: 128 BP Min: 87/44 Max: 134/75 Resp Min: 10 Max: 20 SpO2 Min: 93 % Max: 100 % Intake/Output Summary (Last 24 hours) at 11/15/2023 1339 Last data filed at 11/15/2023 1320 Gross per 24 hour Intake 600 ml Output 733 ml Net -133 ml Physical Exam Constitutional: NAD, well developed Eyes: EOMI, anicteric ENT: NCAT, oropharynx normal, moist mucus membranes Lungs: Clear to auscultation in all lung cisneros, unlabored, trachea midline Cardiovascular: RRR, normal S1 and S2 GI: Soft, non-tender, non-distended, bowel sounds + Skin: L groin incision site CDI with wound glue. No hematoma noted. Extremities: Normal without edema or cyanosis Neurologic: AOx4, CNII-XII intact, normal strength and sensation Psychiatric: Normal affect and mood I have reviewed the patient's vital signs. Lines, Drains, Airways Peripheral IV 11/14/23 18 G Posterior;Right Hand (Active) Labs/Diagnostic Review Na 139 Cl 106 BUN 11 K 4.2 CO2 27 Cr 1.08 Mg -, G AST 25 ALT 16 Alk Phos 55 Ca 8.6 TP - Alb 3.6 Total Bili: 0.3 Direct Bili: - \ Hgb 11.4 / WBC 7.2 -------- Plt 303 / MCV 87.1 \ INR 0.98 (Labs above are the most recent result obtained in the last 24 hours. For additional labs/trends, see Epic.) I have reviewed the laboratory results. Imaging Review IR Venogram Lower Extremity Bilateral Result Date: 11/14/2023 1. In-stent stenosis of the left common iliac stent successfully treated with placement of a new 12mm x 120 mm Abre stent inside the existing stent and subsequent angioplasty 2. Diagnostic right lower extremity venography does not show significant stenosis in the right common or external iliac veins PLAN: 1. Patient will be admitted to the hospital overnight for observation and likely dischargedin the morning 2. Patient should continue on her home anticoagulation. 3. Patient will be started on Plavix, likely for a duration of 3 months Dictated by: Lars Blankenship M.D. Assessment/Plan * May-Thurner syndrome Assessment & Plan S/p left iliac venogram, right iliac venogram and left common iliac artery stenting with Interventional Radiology She tolerated the procedure She was started on Plavix + xarelto by IR Seizure disorder (CMS/HCC) (HCC) Assessment & Plan Continue lamotrigine and Lyrica Mixed anxiety and depressive disorder Assessment & Plan Continue Wellbutrin Xanax p.r.n. continued Hypothyroidism Assessment & Plan Continue Synthroid Deep vein thrombosis (DVT) of left lower extremity (HCC) Assessment & Plan On Xarelto at home Code status : Full Code Diet : Adult Diet Regular Adult Discharge Diet PT/OT Dispo Rec : / Supplementary Attestation Discharge Planning I have spent 40 minutes on discharge planning activities. Time spent was on Coordination of care, Follow up , Counselling with patient/family, discharge exam, parent/patient education, and Other provider communication. Alisa Bach NP Cosigned by Raysa Lopez MD at 11/15/2023 2:03 PM CDT Associated attestation - Raysa Lopez MD - 11/15/2023 2:03 PM CDT I have seen and examined the patient on 11/15/23 in conjunction with the non- physician provider. * Lars Blankenship MD - 11/15/2023 6:27 AM CDT Images from the original note were not included. Interventional Radiology Progress Note Patient History: 43-year-old female with left lower extremity DVT and may Olson lesion status poststenting in 2022 with recurrent left lower extremity symptoms. Patient is now status post left lower extremity venogram, repeat stenting, and angioplasty 11/14/2023. Interval History: Patient endorses mild left groin pain at the access site. Resting comfortably in bed. Exam: General: NAD Skin: warm and well perfused, left groin access site without hematoma or ecchymosis. C/V: normal rate and rhythm Pulm: normal respirations, symmetric chest rise, nonlabored breathing Temp: [36.4 ??C (97.5 ??F)-36.7 ??C (98.1 ??F)] 36.6 ??C (97.9 ??F) Pulse: [49-128] 56 Resp: [10-20] 17 BP: (88-123)/(54-86) 93/54 Chem/LFT Lab History Latest Ref Rng & Units 10/04/2023 12:22 11/14/2023 Labs-Chem/LFT Sodium 135 - 145 mmol/L 139 Creatinine 0.60 - 1.10 mg/dL 1.08 Bilirubin, total 0.1 - 1.2 mg/dL 0.3 AST 10 - 45 Units/L 25 ALT 7 - 45 Units/L 16 Alk phos 40 - 130 Units/L 55 CrCl- Actual Body Weight (Cockcroft-Gault) 55.8 66.1 Details More values are hidden. Newest values shown. Go to activity for more data. Hematology Lab History Latest Ref Rng & Units 11/14/2023 Labs - Hematology WBC 3.8 - 9.9 K/cumm 7.2 Total Hb, POC 11.9 - 15.5 g/dL 11.4 Hct 35.6 - 45.5 % 35.1 Plt 150 - 400 K/cumm 303 Neutrophil abs 1.5 - 6.5 K/cumm 3.5 Lymphocytes, abs 0.8 - 3.3 K/cumm 3.1 Details More values are hidden. Newest values shown. Go to activity for more data. No results found for: MICROBIOLOGY Output by Drain (mL) 11/13/23 07 - 11/13/23 1859 11/13/23 190 - 11/14/23 0659 11/14/23 07 - 11/14/23 18511/14/23 190 - 11/15/23 0627 Patient has no LDAs of requested type attached. Assessment and Plan: 43 y.o. female Status post left lower extremity venogram and stenting 11/14/2023. - continue plavix and rivaroxaban, will likely be on plavix for 3 months - will follow up in 1 months, IR will coordinate - okay to discharge from an interventional radiology perspective documented in this encounter H&P Notes * Sophy Leal MD - 11/14/2023 5:18 PM CDT History and Physical Division of Hospital Medicine Name: Sahra Parks : 1980 Today's Date: November 14, 2023 Age: 43 y.o. female Admit Date: 11/14/2023 Bed: [id number] LOS: 0 days Subjective HPI Sahra Parks is a 43 y.o. female with past medical history significant for May- Thurner syndrome, hypothyroidism, anxiety, admitted for observation after getting a left iliac and right iliac venogramalong with stenting of the left common iliac artery. She tolerated the procedure well Per IR procedure note, the patient was found to have improved flow after stenting and angioplasty. During my encounter-patient complained of back pain, but denied fever, chills, shortness for breath, chest pain, nausea, vomiting, diarrhea. Past Medical History Past Medical History: Diagnosis Date Cellulitis Cellulitis - (Added by TW Conv) Motion sickness Past Surgical History: Procedure Laterality Date ANGIOPLASTY / STENTING FEMORAL Left 09/2022 LLE HERNIA REPAIR 2009 SINUS SURGERY 01/2023 Current Facility-Administered Medications Medication Dose Route Frequency Provider Last Rate Last Admin ALPRAZolam (XANAX) tablet 1 mg 1 mg oral TID PRN Sophy Leal MD buPROPion XL (WELLBUTRIN XL) 24 hour tablet 300 mg 300 mg oral Nightly Sophy Leal MD Carrier Fluids for Secondary Infusion - 0.9% Sodium Chloride 30 mL intravenous PRN Sophy Leal MD cloNIDine (CATAPRES) tablet 0.3 mg 0.3 mg oral Nightly Sophy Leal MD clopidogreL (PLAVIX) tablet 75 mg 75 mg oral Daily Sophy Leal MD 75 mg at 11/14/231900 [START ON 11/15/2023] dextroamphetamine-amphetamine XR (ADDERALL XR) extended release capsule 30 mg 30 mg oral QAM Sophy Leal MD heparin 100 unit/mL injection 500 Units 5 mL intra-catheter Once Sophy Leal MD lamoTRIgine (LaMICtal) tablet 150 mg 150 mg oral Daily Sophy Leal MD [START ON 11/15/2023] levothyroxine (SYNTHROID) tablet 175 mcg 175 mcg oral Daily - 0600 Sophy Leal MD ondansetron ODT (ZOFRAN-ODT) disintegrating tablet 8 mg 8 mg oral Q8H PRN Sophy Leal MD 8 mg at11/14/232110 oxyCODONE-acetaminophen (PERCOCET) 5-325 mg per tablet 1 tablet 1 tablet oral Q4H PRN Sophy Leal MD 1 tablet at 11/14/231900 pregabalin (LYRICA) capsule 50 mg 50 mg oral TID Sophy Leal MD rivaroxaban (XARELTO) tablet 20 mg 20 mg oral Daily with dinner Sophy Leal MD 20 mg at sodium chloride 0.9% flush 0.5-20 mL 0.5-20 mL intra-catheter Q8H GERA Sophy Leal MD sodium chloride 0.9% flush 0.5-20 mL 0.5-20 mL intra-catheter PRN Sophy Leal MD sodium chloride 0.9% flush 10 mL 10 mL intra-catheter Once Sophy Leal MD sodium chloride 0.9% flush 10-20 mL 10-20 mL intra-catheter PRN Sophy Leal MD sodium chloride 0.9% flush 5-10 mL 5-10 mL intra-catheter Q12H GERA Sophy Leal MD sodium chloride 0.9% infusion 30 mL/hr intravenous Continuous Sophy Leal MD 30 mL/hr at 11/14/23 1433 Restarted at 11/14/23 1542 Allergies Allergen Reactions Morphine Swelling, Anaphylaxis and Unknown Throat swelling Latex Rash rash Sulfa (Sulfonamide Antibiotics) Nausea And Vomiting, Rash, Nausea only and Vomiting Ciprofloxacin Nausea only and Vomiting Reaction: Nausea, Vomiting, Social and Family History Social History Tobacco Use Smoking status: Former Types: Cigarettes Smokeless tobacco: Never Substance and Sexual Activity Drug use: Never Sexual activity: Not on file Alcohol Use: Unknown (11/04/2023) AUDIT-C Frequency of Alcohol Consumption: Not on file Average Number of Drinks: Patient does not drink Frequency of Binge Drinking: Not on file No family history on file. Objective Vitals Most Recent Vitals: T 36.7 ??C (98.1 ??F), HR (!) 49, BP 90/60, RR 16, SpO2 100 %. 24hr Min/Max: Temp Min: 36.4 ??C (97.5 ??F) Max: 36.7 ??C (98.1 ??F) Pulse Min: 49 Max: 128 BP Min: 88/57 Max: 123/73 Resp Min: 10 Max: 20 SpO2 Min: 93 % Max: 100 % Intake/Output Summary (Last 24 hours) at 11/14/20238 Last data filed at 11/14/2023 1544 Gross per 24 hour Intake 600 ml Output 5 ml Net 595 ml Physical Exam Constitutional: General: She is not in acute distress. Appearance: Normal appearance. She is not toxic-appearing. HENT: Head: Normocephalic. Nose: Nose normal. Mouth/Throat: Mouth: Mucous membranes are moist. Eyes: Pupils: Pupils are equal, round, and reactive to light. Cardiovascular: Rate and Rhythm: Normal rate and regular rhythm. Heart sounds: No murmur heard. No gallop. Pulmonary: Effort: Pulmonary effort is normal. No respiratory distress. Breath sounds: Normal breath sounds. No wheezing or rales. Abdominal: General: Abdomen is flat. There is no distension. Tenderness: There is no abdominal tenderness. There is no guarding. Musculoskeletal: General: No swelling or tenderness. Cervical back: Normal range of motion. No rigidity. Right lower leg: No edema. Left lower leg: No edema. Skin: General: Skin is warm. Neurological: Mental Status: She is alert. Mental status is at baseline. Cranial Nerves: No cranial nerve deficit. Motor: No weakness. Gait: Gait normal. Psychiatric: Mood and Affect: Mood normal. Lines, Drains, Airways Peripheral IV 11/14/23 18 G Posterior;Right Hand (Active) Labs/Diagnostic Review Na 141 Cl 106 BUN 11 K 4.3 CO2 26 Cr 1.05 Mg -, G AST - ALT - Alk Phos - Ca 9.2 TP - Alb - Total Bili: - Direct Bili: - \ Hgb 11.4 / WBC 7.2 -------- Plt 303 / MCV 87.1 \ INR 0.98 (Labs above are the most recent result obtained in the last 24 hours. For additional labs/trends, see Epic.) I have reviewed the laboratory results. Imaging Review IR Venogram Lower Extremity Bilateral Result Date: 11/14/2023 1. In-stent stenosis of the left common iliac stent successfully treated with placement of a new 12mm x 120 mm Abre stent inside the existing stent and subsequent angioplasty 2. Diagnostic right lower extremity venography does not show significant stenosis in the right common or external iliac veins PLAN: 1. Patient will be admitted to the hospital overnight for observation and likely dischargedin the morning 2. Patient should continue on her home anticoagulation. 3. Patient will be started on Plavix, likely for a duration of 3 months Dictated by: Lars Blankenship M.D. Assessment/Plan * May-Thurner syndrome Assessment & Plan S/p left iliac venogram, right iliac venogram and left common iliac artery stenting with Interventional Radiology She tolerated the procedure She was started on Plavix by IR Seizure disorder (CMS/HCC) (HCC) Assessment & Plan Continue lamotrigine and Lyrica Mixed anxiety and depressive disorder Assessment & Plan Continue Wellbutrin Xanax p.r.n. continued Hypothyroidism Assessment & Plan Continue Synthroid Deep vein thrombosis (DVT) of left lower extremity (HCC) Assessment & Plan On Xarelto at home Code status : Full Code Diet : Adult Diet Regular Supplementary Attestation My total encounter time on this service date was 75 minutes which was spent performing a [id number] encounter and personally completing the provider-level activities documented in the note. This includes time spent prior to the visit and after the visit in direct care of the patient. This time does not include time spent in any separately reportable services. Sophy Leal MD documented in this encounter Nursing Notes * Baylee Choi RN - 11/14/2023 3:10 PM CDT See anesthesia flowsheet for VS and medications documented in this encounter Miscellaneous Notes * Hospital Course - Alisa Bach NP - 11/15/2023 1:56 PM CDT May-Thurner syndrome S/p left iliac venogram, right iliac venogram and left common iliac artery stenting with Interventional Radiology. She tolerated the procedure well. Some urinary retention and hypotension post-op butseems to be chronic. Stable at time of d/c. She was started on Plavix + xarelto by IR; cleared for d/c. Seizure disorder Continue lamotrigine and Lyrica Mixed anxiety and depressive disorder Continue Wellbutrin Xanax p.r.n. continued Hypothyroidism Continue Synthroid Deep vein thrombosis (DVT) of left lower extremity On Xarelto * Plan of Care - Chanda Bales RN - 11/15/2023 9:29 AM CDT Goals: Clinical Goals for the Shift: monitor vital signs; pain control; monitor site for signs of bleedingor hematoma; promote comfort and safety Summary: Problem: Discharge Planning Goal: Understanding discharge needs will improve Outcome: Progressing Flowsheets (Taken 11/15/2023 0929) Understanding of discharge needs will improve: Identify discharge learning needs (meds, wound care,etc.) Problem: Lack of Knowledge Goal: Ability to develop a pain control plan will improve Outcome: Progressing Flowsheets (Taken 11/15/2023 0929) Ability to develop a pain control plan will improve: Teach information regarding pain management * Plan of Care - Nicho Faustin RN - 11/15/2023 8:00 AM CDT Patient admitted to observation unit. Plan is for patient to discharge home when medically ready. No new home needs identified at this time. If any further case management/social work needs arise please call covering family independence case manager. * Plan of Care - XavierabbieMary Alice - 11/15/2023 6:18 AM CDT Goals: Clinical Goals for the Shift: monitor vital signs; pain control; monitor site for signs of bleedingor hematoma; promote comfort and safety Problem: Discharge Planning Goal: Understanding discharge needs will improve Outcome: Progressing Flowsheets (Taken 11/14/2023 1741 by Chanda Bales, YANET) Understanding of discharge needs will improve: Identify discharge learning needs (meds, wound care,etc.) Problem: Lack of Knowledge Goal: Ability to develop a pain control plan will improve Outcome: Progressing Flowsheets (Taken 11/14/2023 235) Ability to develop a pain control plan will improve: Educate pain scale for assessing level of pain Explain causes of pain and how long pain can be expected to last Teach information regarding pain management Problem: Medication Goal: Satisfaction with pain management medication regimen will improve Outcome: Progressing Flowsheets (Taken 11/14/2023 2354) Satisfaction with pain management medication regimen will improve: Assess satisfaction with pain management regimen Manage analgesics Evaluate medication effects Provide administration of medications prior to painful activities Report inadequate pain control to healthcare provider Problem: Sensory Goal: Ability to identify factors that increase pain levels will improve while working to decrease the patient's pain levels Outcome: Progressing Flowsheets (Taken 11/14/20232353) Ability to identify factors that increase pain levels will improve while working to decrease patients pain levels: Assess pain status Observe non-verbal cues of discomfort, such as restlessness, muscle tension, or altered vital signs Problem: Coping Goal: Ability to cope will improve Outcome: Progressing Flowsheets (Taken 11/14/20232353) Ability to cope will Improve: Encourage vebalization of feelings surrounding pain Assess beliefs of pain Provide emotional support Problem: Health Behavior Goal: Identification of resources available to assist in meeting health care needs will improve Outcome: Progressing Flowsheets (Taken 11/14/20232353) Identification of resources available to assist in meeting health care needs will improve: Collaborate with pain management Refer to pain support group Collaborate with all therapies Problem: Fall Risk Goal: Ability to state ways to decrease the risk of falls will improve Outcome: Progressing Flowsheets (Taken 11/14/20232353) Ability to state ways to decrease the risk of falls will improve: Teach fall prevention measures Teach information regarding appropriate enviornmental changes Goal: Will remain free from falls Outcome: Progressing Flowsheets (Taken 11/14/20232353) Will remain free from falls: Assess risk factors for falls Implement fall prevention measures Goal: Will remain free from injury from falls Outcome: Progressing Flowsheets (Taken 11/14/20232353) Will remain free from injury from falls: Provide safe environment for conduction of activities of daily living in hospital environment Problem: Neurosensory Goal: Achieves stable or improved neurological status Outcome: Progressing Flowsheets (Taken 11/14/20232353) Achieves Stable or Improved Neurological Status: Assess for and report changes in neurological status Maintain blood pressure and fluid volume within ordered parameters to optimize cerebral perfusion and minimize risk of hemorrhage Problem: Skin/Tissue Integrity Goal: Incisions, wounds, or drain sites healing without S/S of infection Outcome: Progressing Flowsheets (Taken 11/14/20232353) Incision(s), Wound(s) or Drain Site(s) healing without S/S of infection: Assess and document risk factors for pressure injury development Assess and document skin integrity Assess and document dressing/incision, wound bed, drain sites and surrounding tissue 2130H bladder scan done since patient has not voided since the procedure; 438ml; encouraged to void 2145H bladder scan post void 250ml; patient was complaining of difficulty starting the stream; Dr. Fuentes was informed and urinalysis was sent 0540 complaining of left sided chest pain radiating to underneath the axilla, tender to touch; vitals stable; referred to dr. Grover; she said it's unlikely to be cardiac related so to give the prn percocet; post void scan was done 166ml; patient was still complaining of difficulty starting stream; Dr. Grover said she's going to inform the day team * Assessment & Plan Note - Sophy Leal MD - 11/14/2023 6:59 PM CDTAssociated Problem(s): Mixed anxiety and depressive disorder Continue Wellbutrin Xanax p.r.n. continued * Assessment & Plan Note - Sophy Leal MD - 11/14/2023 6:59 PM CDTAssociated Problem(s): Hypothyroidism Continue Synthroid * Assessment & Plan Note - Sophy Leal MD - 11/14/2023 6:59 PM CDTAssociated Problem(s): Seizure disorder (CMS/HCC) (HCC) Continue lamotrigine and Lyrica * Assessment & Plan Note - Sophy Leal MD - 11/14/2023 6:58 PM CDTAssociated Problem(s): Deep vein thrombosis (DVT) of left lower extremity (HCC) On Xarelto at home * Assessment & Plan Note - Sophy Leal MD - 11/14/2023 6:56 PM CDTAssociated Problem(s): May-Thurner syndrome S/p left iliac venogram, right iliac venogram and left common iliac artery stenting with Interventional Radiology She tolerated the procedure She was started on Plavix + xarelto by IR * Plan of Care - Chanda Bales RN - 11/14/2023 5:41 PM CDT Goals: Summary: orient pt to unit Problem: Discharge Planning Goal: Understanding discharge needs will improve Outcome: Progressing Flowsheets (Taken 11/14/2023 1741) Understanding of discharge needs will improve: Identify discharge learning needs (meds, wound care,etc.) * Post-Procedure Note - Lars Blankenship MD - 11/14/2023 11:30 AM CDT Radiology Brief Post Procedure Note Attending: Radha Medical Technologist Hematology: Pattie Sedation/Anesthesia: Anesthesia Pre-Op/Pre-Procedure Diagnosis: May Thurner syndrome Post-Op/Post-Procedure Diagnosis: same Procedure Performed: Left iliac venogram Right iliac venogram Left common iliac stenting with 12 mm x 120 mm Abre Procedure Findings: In stent stenosis of the left common iliac stent , following stenting and angioplasty significantlyimproved flow Complications: None Estimated Blood Loss: < 30 ml Specimens: None Condition: Stable Full report to follow. * Pre-Procedure Note - Lars Blankenship MD - 11/14/2023 11:30 AM CDT PRE-SEDATION ASSESSMENT/H&P Patient is a 43 y.o. female with chief complaint of May-Thurner syndrome. Procedure: IR VENOGRAM LOWER EXTREMITY LEFT Indications/History: 43-year-old female who presented with leg pain/swelling 10/12/2022 status postleft lower extremity deep venous mechanical thrombectomy of left common iliac vein through common femoral vein and left common iliac vein stenting. On clinic visit 10/09/2023 patient is endorsing worsening swelling and left groin pain. PMH: Patient Active Problem List Diagnosis Date Noted May-Thurner syndrome 11/14/2023 Arthralgia of both knees 09/30/2023 Loss of hair 09/30/2023 Partial epilepsy with impairment of consciousness ([facility]) ([facility]) 08/15/2023 Dysuria 08/14/2023 Positive antinuclear antibody 05/29/2023 COVID-19 04/03/2023 Chronic abdominal pain 02/25/2023 Seborrheic dermatitis of scalp 02/25/2023 Seizure disorder ([facility]) ([facility]) 02/25/2023 Hypothyroidism 01/25/2023 Pain in pelvis 01/25/2023 [...] 11/26/2022 Nausea 11/19/2022 Deep vein thrombosis (DVT) ([facility]) ([facility]) 11/16/2022 Chronic ethmoidal sinusitis 11/15/2022 Chronic maxillary sinusitis 11/15/2022 Acute embolism and thrombosis of unspecified deep veins of left lower extremity ([facility]) 10/18/2022 Deep vein thrombosis (DVT) of left lower extremity ([facility]) 10/15/2022 Migraine 09/12/2022 Bipolar disorder (HCC) 09/07/2022 Cobalamin deficiency 09/07/2022 Cigarette smoker 09/04/2022 Abnormal laboratory test result 08/06/2022 Allergic rhinitis 07/27/2022 Vitamin B12 deficiency (non anemic) 07/27/2022 Allergic rhinitis, unspecified 07/27/2022 Anorexia nervosa, binge eating/purging type 06/13/2022 Attention deficit hyperactivity disorder, predominantly inattentive type 06/13/2022 Benign endometrial hyperplasia 06/13/2022 Major depressive disorder, recurrent, unspecified ([facility]) 06/13/2022 Personal history of suicidal behavior 06/13/2022 Paranoid schizophrenia ([facility]) ([facility]) 06/13/2022 Moderate protein-calorie malnutrition ([facility]) ([facility]) 06/13/2022 Hypothyroidism, unspecified 06/13/2022 Other asthma 06/13/2022 Systemic lupus erythematosus, organ or system involvement unspecified ([facility]) 06/13/2022 Anxiety disorder, unspecified 06/13/2022 Bipolar disorder, current episode depressed, mild or moderate severity, unspecified ([facility]) 06/13/2022 Delusional disorders ([facility]) 06/13/2022 Mixed anxiety and depressive disorder 01/24/2021 Anxiety disorder 01/24/2021 MDD (major depressive disorder), single episode, moderate ([facility]) 11/22/2020 Carpal tunnel syndrome on left 09/14/2010 Seizure disorder ([facility] ([facility]) 09/14/2010 Asthma 07/06/2010 Encounter for health-related screening 07/06/2010 SAB (spontaneous ) 07/06/2010 Status post umbilical hernia repair, follow-up exam 07/06/2010 Tobacco use disorder complicating , childbirth, or the puerperium 07/06/2010 Anxiety 06/22/2010 GBS (group B streptococcus) UTI complicating 06/22/2010 Hypothyroid 06/22/2010 History of delivery, currently 06/22/2010 Lupus (systemic lupus erythematosus) ([facility] ([facility]) 06/22/2010 Marijuana abuse 06/22/2010 S/P cone biopsy of cervix 06/22/2010 Severe pre-eclampsia, antepartum 06/22/2010 Supervision of high-risk 06/22/2010 Malignant neoplasm of cervix ([facility]) ([facility]) 04/21/1997 History of Sedation/Anesthesia Complications: No History of Difficult Airway: No HISTORY PSH Past Surgical History: Procedure Laterality Date ANGIOPLASTY / STENTING FEMORAL Left 09/2022 LLE HERNIA REPAIR 2009 SINUS SURGERY 01/2023 Social History: Social History Tobacco Use Smoking status: Former Types: Cigarettes Smokeless tobacco: Never Substance and Sexual Activity Drug use: Never Sexual activity: Not on file Alcohol Use: Unknown (11/04/2023) AUDIT-C Frequency of Alcohol Consumption: Not on file Average Number of Drinks: Patient does not drink Frequency of Binge Drinking: Not on file Family History: No family history on file. REVIEW OF SYSTEMS: Review of systems per HPI and otherwise all other systems are negative MEDICATIONS Current Meds: Current Outpatient Medications: ALPRAZolam (XANAX) 1 mg tablet, Take 1 tablet (1 mg total) by mouth 3 (three) times a day as neededfor anxiety, Disp: , Rfl: cloNIDine (CATAPRES) 0.3 mg tablet, Take 1 tablet (0.3 mg total) by mouth nightly at bedtime, Disp: , Rfl: levothyroxine (SYNTHROID) 175 mcg tablet, Take 1 tablet (175 mcg total) by mouth lens gauger before breakfast (Patient taking differently: Take 1 tablet (175 mcg total) by mouth nightly), Disp: 30 tablet, Rfl: 0 naltrexone (DEPADE) 50 mg tablet, Take 1 tablet (50 mg total) by mouth nightly, Disp: , Rfl: pregabalin (LYRICA) 50 mg capsule, Take 1 capsule (50 mg total) by mouth 3 (three) times a day, Disp: , Rfl: rivaroxaban (XARELTO) 20 mg tablet, Take 1 tablet (20 mg total) by mouth daily with breakfast (Patient taking differently: Take 1 tablet (20 mg total) by mouth daily with dinner), Disp: 30 tablet, Rfl: 3 Wellbutrin XL 300 mg 24 hr tablet, Take 1 tablet (300 mg total) by mouth nightly, Disp: , Rfl: dextroamphetamine-amphetamine XR (ADDERALL XR) 30 mg 24 hr capsule, Take 1 capsule (30 mg total) bymouth every morning, Disp: , Rfl: HYDROcodone-acetaminophen (NORCO) 5-325 mg per tablet, Take 1 tablet by mouth every 6 (six) hours as needed for pain, Disp: , Rfl: lamoTRIgine (LaMICtal) 150 mg tablet, Take 1 tablet (150 mg total) by mouth daily On hold, Disp: , Rfl: ondansetron ODT (ZOFRAN-ODT) 8 mg disintegrating tablet, Take 1 tablet (8 mg total) by mouth every 8 (eight) hours as needed for nausea, Disp: , Rfl: tretinoin (RETIN-A) 0.1 % cream, Apply topically nightly, Disp: , Rfl: Current Facility-Administered Medications: Carrier Fluids for Secondary Infusion - 0.9% Sodium Chloride, 30 mL, intravenous, PRN, Lars Blankenship MD heparin 100 unit/mL injection 500 Units, 5 mL, intra-catheter, Once, Lars Blankenship MD sodium chloride 0.9% flush 0.5-20 mL, 0.5-20 mL, intra-catheter, Q8H GERA, Lars Blankenship MD sodium chloride 0.9% flush 0.5-20 mL, 0.5-20 mL, intra-catheter, PRN, Lars Blankenship MD sodium chloride 0.9% flush 10 mL, 10 mL, intra-catheter, Once, Lars Blankenship MD sodium chloride 0.9% flush 10-20 mL, 10-20 mL, intra-catheter, PRN, Lars Blankenship MD sodium chloride 0.9% flush 5-10 mL, 5-10 mL, intra-catheter, Q12H GERA, Lars Blankenship MD sodium chloride 0.9% infusion, 30 mL/hr, intravenous, Continuous, Lars Blankenship MD, Last Rate: 30 mL/hr at 11/14/23 1052, 30 mL/hr at 11/14/23 1052 Home Meds: HOME MEDICATIONS : ALPRAZolam (XANAX) 1 mg tablet cloNIDine (CATAPRES) 0.3 mg tablet levothyroxine (SYNTHROID) 175 mcg tablet naltrexone (DEPADE) 50 mg tablet pregabalin (LYRICA) 50 mg capsule rivaroxaban (XARELTO) 20 mg tablet Wellbutrin XL 300 mg 24 hr tablet dextroamphetamine-amphetamine XR (ADDERALL XR) 30 mg 24 hr capsule HYDROcodone-acetaminophen (NORCO) 5-325 mg per tablet lamoTRIgine (LaMICtal) 150 mg tablet ondansetron ODT (ZOFRAN-ODT) 8 mg disintegrating tablet tretinoin (RETIN-A) 0.1 % cream Allergies: Allergies Allergen Reactions Morphine Swelling, Anaphylaxis and Unknown Throat swelling Latex Rash rash Sulfa (Sulfonamide Antibiotics) Nausea And Vomiting, Rash, Nausea only and Vomiting Ciprofloxacin Nausea only and Vomiting Reaction: Nausea, Vomiting, Vitals: Vitals: 11/14/23 1100 11/14/23 1110 11/14/23 1120 11/14/23 1130 BP: 99/73 106/69 92/67 104/71 Pulse: 63 61 68 62 Resp: 13 12 15 12 SpO2: 99% 100% 100% 100% LABS Pertinent Labs: Recent Labs Lab Units 11/14/23 1052 WBC K/cumm 6.0 HEMOGLOBIN g/dL 12.0 HEMATOCRIT % 37.7 PLATELETS K/cumm 350 Recent Labs Lab Units 11/14/23 1052 SODIUM mmol/L 141 POTASSIUM PLASMA mmol/L 4.3 CHLORIDE mmol/L 106 CO2 mmol/L 26 BUN SERUM mg/dL 11 CREATININE mg/dL 1.05 CALCIUM mg/dL 9.2 Recent Labs Lab Units 11/14/23 1052 PROTIME (PT) sec 10.6 INR 0.98 IMAGING Reviewed PERTINENT PHYSICAL EXAM General: NAD Chest: non-labored breathing on room air Cardiac: regular rate Assessment: Proceed with left lower extremity venogram with intervention and possible stenting Airway Exam: normal ASA Classification:Class 3: Patient with severe systemic disease Sedation Plan: Anesthesia Adjunctive Procedures: None NONE PO status: Last PO: NPO since midnight Plan: - Patient will have left lower extremity venogram with possible intervention and stenting today with VIR. - Patient will be admitted to hospitalist service on s with plan for discharge tomorrow if pain and symptoms are controlled and labs and vitals are stable. - VIR recommendations for discharge medications: IR will determine anticoagulation recommendations following procedure. - VIR recommendations for discharge follow up: Nurse coordinator will follow clinically and arrange appropriate clinical follow up. Vicky Sousa PA-C Interventional Radiology pager until 3 PM IR call pager M-F after 3 PM or on weekends If the patient does not already have a follow-up appointment arranged, please call the [facility] front desk specialist at between 7:30 AM and 4:00 PM. documented in this encounter Plan of Treatment Not on file documented as of this encounter Procedures Procedure Name Priority Date/Time Associated Diagnosis Comments URINALYSIS AND REFLEX TO MICROSCOPIC AND CULTURE Routine 11/14/2023 10:30 PM CDT EGFR Timed 11/14/2023 9:01 PM CDT DIFFERENTIAL AUTO Routine 11/14/2023 9:0 1 PM CDT CBC WITH AUTO DIFFERENTIAL Routine 11/14/2023 9:01 PM CDT COMPREHENSIVE METABOLIC PANEL Timed 11/14/2023 9:01 PM CDT VENOGRAM LOWER EXTREMITY BILATERAL Schedule Routine, Read Routine (OP Routine) 11/14/2023 3:51 PM CDT May-Thurner syndrome EGFR STAT 11/14/2023 10:52 AM CDT DIFFERENTIAL AUTO STAT 11/14/2023 10: 52 AM CDT CBC WITH AUTO DIFFERENTIAL STAT 11/14/2023 10:52 AM CDT PROTIME-INR STAT 11/14/2023 10:52 AM CDT BASIC METABOLIC PANEL STAT 11/14/2023 10:52 AM CDT documented in this encounter Results * (ABNORMAL) Urinalysis reflex to microscopic and culture Urine, bladder (11/14/2023 10:30 PM CDT) Color, ur Straw Yellow Clarity, ur Clear Clear [facility] Specific gravity, ur 1.037(H) 1.003 - 1.030 [facility] pH, urine 7.0 [facility] [facility] Comment: Interpretive Data ? Urine pH is affected by diet, medications, systemic acid-base disturbances, and renal tubular function. ??pH may affect urinary stone formation. ??For example, urine pH below 6.0 may help reduce the tendency for calcium phosphate stones and pH greater than 6.0 may reduce the tendency for uric acid stone formation. Source: [facility] Current Interpretive Data was last revised on 2017 Protein, ur ql Trace Negative [facility] Glucose, ur ql Negative Negative [facility] Ketones, ur Negative Negative [facility] Bilirubin, ur Negative Negative [facility] Blood, ur Negative Negative [facility] Urobilinogen, ur <2.0 <2.0 mg/dL [facility] Nitrite, ur Negative Negative [facility] Leukocyte esterase, ur Negative Negative [facility] UA reflex comment Reflex conditions for microscopic UA and culture not met. [facility] Urine, bladder 11/14/2023 10 :30 PM CDT 11/14/2023 10:38 PM CDT Nga Fuentes MD LAB MICROBIOLOGY - [facility] ORDERABLES Final Result [facility] One [facility] Department [place] [address] * eGFR (11/14/2023 9:01 PM CDT) eGFR 66 >=60 mL/min/1. 73 m2 Comment: Interpretive Data Reference Interval Normal ?>/= 90 mL/min/1.73m2 Mildly decreased* ? 60 - 89 mL/min/1.73m2 Mildly to moderately decreased ?45 - 59 mL/min/1.73m2 Moderately to severely decreased ??30 - 44 mL/min/1.73m2 Severely decreased ?15 - 29 mL/min/1.73m2 Kidney Failure ?< 15 ??mL/min/1.73m2 *Relative to young adult level Estimated glomerular filtration rate is determined by the 2020 CKD-EPI equation recommended by the National Kidney Foundation (A Unifying Approach to GFR Estimation: Recommendations of the NKF-ASK Task Force on Reassessing the Inclusion of Race in Diagnosing Kidney Disease, JASN 2020). The CKD-EPI equation should not be used for patients with unstable renal function and has not been validated in children and those over 70. Current interpretive data was last reviewed 2021. Blood 11/14/2023 9:01 PM CDT 11/14/2023 9:17 PM CDT us Sophy Leal MD LAB BLOOD ORDERABLES Final Resul t [facility] One [facility] Department [place] [address] * Differential, auto (11/14/2023 9:01 PM CDT) Neutrophil abs 3.5 1.5 - 6.5 K/cumm Imm gran abs 0.0 0.0 - 0.1 K/cumm [facility] Lymphocyte abs 3.1 0.8 - 3.3 K/cumm [facility] Monocyte abs 0.4 0.2 - 0.8 K/cumm [facility] Eosinophil abs 0.2 0.0 - 0.5 K/cumm [facility] Basophil abs 0.0 0.0 - 0.1 K/cumm [facility] Neutrophil pct 48.9 % [facility] Comment: Interpretive Data Percent cell count reference ranges are not reported, since discordance with absolute values may lead to misinterpretation of CBC data. Current Interpretive Data was last revised on 2017. Imm gran pct 0.3 % [facility] Comment: Interpretive Data Percent cell count reference ranges are not reported, since discordance with absolute values may lead to misinterpretation of CBC data. Current Interpretive Data was last revised on 2017. Lymphocyte pct 42.5 % [facility] Comment: Interpretive Data Percent cell count reference ranges are not reported, since discordance with absolute values may lead to misinterpretation of CBC data. Current Interpretive Data was last revised on 2017. Monocyte pct 5.5 % [facility] Comment: Interpretive Data Percent cell count reference ranges are not reported, since discordance with absolute values may lead to misinterpretation of CBC data. Current Interpretive Data was last revised on 2017. Eosinophil pct 2.2 % [facility] Comment: Interpretive Data Percent cell count reference ranges are not reported, since discordance with absolute values may lead to misinterpretation of CBC data. Current Interpretive Data was last revised on 2017. Basophil pct 0.6 % [facility] Comment: Interpretive Data Percent cell count reference ranges are not reported, since discordance with absolute values may lead to misinterpretation of CBC data. Current Interpretive Data was last revised on 2017. Blood 11/14/2023 9:01 PM CDT 11/14/2023 9:20 PM CDT us Sophy Leal MD LAB BLOOD ORDERABLES Final Resul t [facility] One [facility] Department [place] [address] * (ABNORMAL) Comprehensive metabolic panel (11/14/2023 9:01 PM CDT) Sodium 139 135 - 145 mmol/L Potassium, pl 4.2 3.3 - 4.9 mmol/L [facility] Comment:Hemolyzed; Potassium value may be falsely elevated by as much as 0.3-0.5 mmol/L. Suggest redraw and reanalysis. Chloride 106 97 - 110 mmol/L [facility] CO2 27 22 - 32 mmol/L [facility] Anion gap 6 2 - 15 mmol/L [facility] BUN 11 6 - 25 mg/dL [facility] Creatinine 1.08 0.60 - 1.10 mg/dL [facility] Glucose 109 70 - 199 mg/dL [facility] Comment: Interpretive Data Fasting glucose >/= 126 mg/dl is diagnostic for diabetes. ?? Fasting is defined as no caloric intake for at least 8 hours. Fasting glucose between 100 mg/dl to 125 mg/dl is diagnostic of prediabetes. In a patient with classic symptoms of hyperglycemia or hyperglycemic crisis, a random glucose >/= 200 mg/dl is diagnostic for diabetes. In the absence of unequivocal hyperglycemia, results should be confirmed by repeat testing. The classification and Diagnosis of Diabetes Diabetes Care 2021; 46: S19-S40. Current interpretive data was last revised 2022. Calcium 8.6 8.5 - 10.3 mg/dL [facility] Bilirubin, total 0.3 0.1 - 1.2 mg/dL [facility] Protein, pl 6.1(L) 6.5 - 8.5 g/dL [facility] Albumin 3.6 3.5 - 5.0 g/dL [facility] Alk phos 55 40 - 130 Units/L [facility] ALT 16 7 - 45 Units/L [facility] AST 25 10 - 45 Units/L [facility] Comment:Hemolyzed; result ma y be falsely elevated Blood 11/14/2023 9:01 PM CDT 11/14/2023 9:17 PM CDT us Sophy Leal MD LAB BLOOD ORDERABLES Final Resul t [facility] One [facility] Department [place] [address] * (ABNORMAL) CBC with auto differential (11/14/2023 9:01 PM CDT) Pathologist [facility] WBC 7.2 3.8 - 9.9 K/cumm Hgb 11.4(L) 11.9 - 15.5 g/dL [facility] Hct 35.1(L) 35.6 - 45.5 % [facility] Plt 303 150 - 400 K/cumm [facility] MPV 9.5 9.1 - 12.3 fL [facility] RBC 4.03 3.90 - 5.20 M/cumm [facility] MCV 87.1 81.3 - 96.4 fL [facility] MCH 28.3 27.1 - 33.3 pg [facility] MCHC 32.5 32.3 - 35.7 g/dL [facility] RDW CV 13.3 11.1 - 14.9 % [facility] RDW SD 42.5 35.7 - 48.1 fL [facility] NRBC abs 0.00 0.00 - 0.01 K/cumm [facility] Blood 11/14/2023 9:01 PM CDT 11/14/2023 9:20 PM CDT us Sophy Leal MD LAB BLOOD ORDERABLES Final Resul t [facility] One [facility] Department [place] [address] * IR Venogram Lower Extremity Bilateral (11/14/2023 3:51 PM CDT) Anatomical Region Laterality Modality Extremity Bilateral X-Ray Angiograph y 11/14/2023 4:45 PM CDT Impressions 11/15/2023 3:15 PM CDT 1. ??In-stent stenosis of the left common iliac stent successfully treated with placement of a new 12 mm x 120 mm Abre stent inside the existing stent and subsequent angioplasty 2. ??Diagnostic right lower extremity venography does not show significant stenosis in the right common or external iliac veins PLAN: 1. ??Patient will be admitted to the hospital overnight for observation and likely discharged in the morning with a 1 month follow up clinic visit and CT. 2. ??Patient should continue on her home anticoagulation. 3. ??Patient will be started on Plavix, likely for a duration of 3 months Dictated by: Lars Blankenship M.D. The radiology attending physician has personally reviewed this study, and had reviewed and/or edited this written report and agrees with it. Electronically signed by: Umberto Garcia M.D. Narrative 11/15/2023 3:15 PM CDT EXAMINATION: ?? DIAGNOSTIC BILATERAL ILIAC VENOGRAM WITH LEFT ILIAC STENTING AND VENOPLASTY HISTORY/INDICATION: ??43-year-old female with left lower extremity DVT status post thrombectomy and stenting in 2022. Now with recurrent left lower extremity symptoms. Additionally patient states she is having symptoms in the right lower extremity. ATTENDING PRESENCE: Umberto Garcia M.D., the attending radiologist was present from the beginning to the end of the procedure. ?? SEDATION: ??The procedure was done under General Anesthesia. TECHNIQUE: ??The risks, benefits and alternatives were discussed and informed consent was obtained. Prior to beginning the procedure, Roark Protocol was performed to confirm the patient's identity and the planned procedure. ??The fluoroscopy time has been recorded in the electronic medical record. Maximum sterile barriers including cap, mask, hand hygiene, sterile gloves, sterile gown, large sterile drape and 2% chlorhexidine for cutaneous antisepsis were used. The left common femoral was examined with ultrasound and an image of the patent vessel was recorded. After sterile prep, the skin over this vessel was infiltrated with 1% Lidocaine. The vein was punctured under real time ultrasound guidance. A 10 Kazakh sheath was placed. Diagnostic left iliac venography was performed through the sheath showing in-stent narrowing, but the stent is patent. The right common iliac vein was catheterized using a 5 Kazakh C2 catheter and diagnostic venography was performed showing no significant stenosis. Patient was given 5000 units heparin. An exchange length Amplatz wire was placed and a new 12 mm x 120 mm Abre stent was placed inside the existing left iliac stent extending further inferiorly. Balloon angioplasty was performed with a 12 mm balloon. Repeat diagnostic venography shows no residual stenosis. The sheath was removed and manual pressure was held for hemostasis. ESTIMATED BLOOD LOSS: Minimal. CONDITION: Stable DISCHARGED TO: Inpatient unit FINDINGS: Ultrasound image demonstrates a patent left common femoral vein. Diagnostic left lower extremity venogram demonstrates in-stent stenosis in the left common iliac stent. Following stent placement and angioplasty there is no residual stenosis in the left common iliac vein. Diagnostic right lower extremity venography demonstrates no significant stenosis in the right external or common iliac veins. Procedure Note Umberto Garcia MD - 11/15/2023 EXAMINATION: DIAGNOSTIC BILATERAL ILIAC VENOGRAM WITH LEFT ILIAC STENTING AND VENOPLASTY HISTORY/INDICATION: 43-year-old female with left lower extremity DVT status post thrombectomy and stenting in 2022. Now with recurrent left lower extremity symptoms. Additionally patient states she is having symptoms in the right lower extremity. ATTENDING PRESENCE: Umberto Garcia M.D., the attending radiologist was present from the beginning to the end of the procedure. SEDATION: The procedure was done under General Anesthesia. TECHNIQUE: The risks, benefits and alternatives were discussed and informed consent was obtained. Prior to beginning the procedure, Roark Protocol was performed to confirm the patient's identity and the planned procedure. The fluoroscopy time has been recorded in the electronic medical record. Maximum sterile barriers including cap, mask, hand hygiene, sterile gloves, sterile gown, large sterile drape and 2% chlorhexidine for cutaneous antisepsis were used. The left common femoral was examined with ultrasound and an image of the patent vessel was recorded. After sterile prep, the skin over this vessel was infiltrated with 1% Lidocaine. The vein was punctured under real time ultrasound guidance. A 10 Kazakh sheath was placed. Diagnostic left iliac venography was performed through the sheath showing in-stent narrowing, but the stent is patent. The right common iliac vein was catheterized using a 5 Kazakh C2 catheter and diagnostic venography was performed showing no significant stenosis. Patient was given 5000 units heparin. An exchange length Amplatz wire was placed and a new 12 mm x 120 mm Abre stent was placed inside the existing left iliac stent extending further inferiorly. Balloon angioplasty was performed with a 12 mm balloon. Repeat diagnostic venography shows no residual stenosis. The sheath was removed and manual pressure was held for hemostasis. ESTIMATED BLOOD LOSS: Minimal. CONDITION: Stable DISCHARGED TO: Inpatient unit FINDINGS: Ultrasound image demonstrates a patent left common femoral vein. Diagnostic left lower extremity venogram demonstrates in-stent stenosis in the left common iliac stent. Following stent placement and angioplasty there is no residual stenosis in the left common iliac vein. Diagnostic right lower extremity venography demonstrates no significant stenosis in the right external or common iliac veins. IMPRESSION: 1. In-stent stenosis of the left common iliac stent successfully treated with placement of a new 12 mm x 120 mm Abre stent inside the existing stent and subsequent angioplasty 2. Diagnostic right lower extremity venography does not show significant stenosis in the right common or external iliac veins PLAN: 1. Patient will be admitted to the hospital overnight for observation and likely discharged in the morning with a 1 month follow up clinic visit and CT. 2. Patient should continue on her home anticoagulation. 3. Patient will be started on Plavix, likely for a duration of 3 months Dictated by: Lars Blankenship M.D. The radiology attending physician has personally reviewed this study, and had reviewed and/or edited this written report and agrees with it. Electronically signed by: Umberto Garcia M.D. us Umberto Garcia MD IMG IR PROCEDURES Final Result * eGFR (11/14/2023 10:52 AM CDT) [facility] eGFR 68 >=60 mL/min/1. 73 m2 Comment: Interpretive Data Reference Interval Normal ?>/= 90 mL/min/1.73m2 Mildly decreased* ? 60 - 89 mL/min/1.73m2 Mildly to moderately decreased ?45 - 59 mL/min/1.73m2 Moderately to severely decreased ??30 - 44 mL/min/1.73m2 Severely decreased ?15 - 29 mL/min/1.73m2 Kidney Failure ?< 15 ??mL/min/1.73m2 *Relative to young adult level Estimated glomerular filtration rate is determined by the 2020 CKD-EPI equation recommended by the National Kidney Foundation (A Unifying Approach to GFR Estimation: Recommendations of the NKF-ASK Task Force on Reassessing the Inclusion of Race in Diagnosing Kidney Disease, JASN 2020). The CKD-EPI equation should not be used for patients with unstable renal function and has not been validated in children and those over 70. Current interpretive data was last reviewed 2021. Blood 11/14/2023 10:5 2 AM CDT 11/14/2023 11:11 AM CDT us Umberto Garcia MD LAB BLOOD ORDERABLES Final Resul t [facility] One [facility] Department [place] [address] * Differential, auto (11/14/2023 10:52 AM CDT) Neutrophil abs 2.1 1.5 - 6.5 K/cumm Imm gran abs 0.0 0.0 - 0.1 K/cumm [facility] Lymphocyte abs 3.2 0.8 - 3.3 K/cumm [facility] Monocyte abs 0.5 0.2 - 0.8 K/cumm [facility] Eosinophil abs 0.2 0.0 - 0.5 K/cumm [facility] Basophil abs 0.0 0.0 - 0.1 K/cumm [facility] Neutrophil pct 34.5 % [facility] Comment: Interpretive Data Percent cell count reference ranges are not reported, since discordance with absolute values may lead to misinterpretation of CBC data. Current Interpretive Data was last revised on 2017. Imm gran pct 0.3 % [facility] Comment: Interpretive Data Percent cell count reference ranges are not reported, since discordance with absolute values may lead to misinterpretation of CBC data. Current Interpretive Data was last revised on 2017. Lymphocyte pct 52.2 % [facility] Comment: Interpretive Data Percent cell count reference ranges are not reported, since discordance with absolute values may lead to misinterpretation of CBC data. Current Interpretive Data was last revised on 2017. Monocyte pct 8.3 % [facility] Comment: Interpretive Data Percent cell count reference ranges are not reported, since discordance with absolute values may lead to misinterpretation of CBC data. Current Interpretive Data was last revised on 2017. Eosinophil pct 4.0 % [facility] Comment: Interpretive Data Percent cell count reference ranges are not reported, since discordance with absolute values may lead to misinterpretation of CBC data. Current Interpretive Data was last revised on 2017. Basophil pct 0.7 % [facility] Comment: Interpretive Data Percent cell count reference ranges are not reported, since discordance with absolute values may lead to misinterpretation of CBC data. Current Interpretive Data was last revised on 2017. Blood 11/14/2023 10:5 2 AM CDT 11/14/2023 11:11 AM CDT Umberto Garcia MD LAB BLOOD ORDERABLES Final Resul t Performing Organization Address [facility] de Phone Number [facility] [place] [address] * Protime-INR (11/14/2023 10:52 AM CDT) PT 10.6 9.7 - 13.0 sec INR 0.98 0.90 - 1.20 [facility] Comment: Interpretive data Oral anticoagulant therapeutic ranges: Venous thromboembolism prophylaxis or treatment: 2.0-3.0 CARDIOLOGY Standard range: 2.0-3.0 High-intensity range: 2.5-3.5 Refer to indication-specific guidelines for appropriate target ranges for prosthetic heart valve replacement. Current interpretive data was last revised on 2019. Blood 11/14/2023 10:5 2 AM CDT 11/14/2023 11:09 AM CDT Umbreto Garcia MD LAB BLOOD ORDERABLES Final Resul t Performing Organization Address [facility] de Phone Number [facility] [place] [address] * Basic metabolic panel (11/14/2023 10:52 AM CDT) Sodium 141 135 - 145 mmol/L Potassium, pl 4.3 3.3 - 4.9 mmol/L [facility] Chloride 106 97 - 110 mmol/L [facility] CO2 26 22 - 32 mmol/L [facility] Anion gap 9 2 - 15 mmol/L [facility] BUN 11 6 - 25 mg/dL [facility] Creatinine 1.05 0.60 - 1.10 mg/dL [facility] Glucose 91 70 - 199 mg/dL [facility] Comment: Interpretive Data Fasting glucose >/= 126 mg/dl is diagnostic for diabetes. ?? Fasting is defined as no caloric intake for at least 8 hours. Fasting glucose between 100 mg/dl to 125 mg/dl is diagnostic of prediabetes. In a patient with classic symptoms of hyperglycemia or hyperglycemic crisis, a random glucose >/= 200 mg/dl is diagnostic for diabetes. In the absence of unequivocal hyperglycemia, results should be confirmed by repeat testing. The classification and Diagnosis of Diabetes Diabetes Care 2021; 46: S19-S40. Current interpretive data was last revised 2022. Calcium 9.2 8.5 - 10.3 mg/dL [facility] Blood 11/14/2023 10:5 2 AM CDT 11/14/2023 11:11 AM CDT us Umberto Garcia MD LAB BLOOD ORDERABLES Final Resul t [facility] One [facility] Department [place] [address] * (ABNORMAL) CBC with auto differential (11/14/2023 10:52 AM CDT) WBC 6.0 3.8 - 9.9 K/cumm Hgb 12.0 11.9 - 15.5 g/dL [facility] Hct 37.7 35.6 - 45.5 % [facility] Plt 350 150 - 400 K/cumm [facility] MPV 9.8 9.1 - 12.3 fL [facility] RBC 4.30 3.90 - 5.20 M/cumm [facility] MCV 87.7 81.3 - 96.4 fL [facility] MCH 27.9 27.1 - 33.3 pg [facility] MCHC 31.8(L) 32.3 - 35.7 g/dL [facility] RDW CV 13.3 11.1 - 14.9 % [facility] RDW SD 42.7 35.7 - 48.1 fL [facility] NRBC abs 0.00 0.00 - 0.01 K/cumm [facility] Blood 11/14/2023 10:5 2 AM CDT 11/14/2023 11:11 AM CDT us Umberto Garcia MD LAB BLOOD ORDERABLES Final Resul t [facility] Department [place] [address] documented in this encounter Visit Diagnoses Diagnosis May-Thurner syndrome- Primary Compression of vein May-Thurner syndrome Compression of vein Arthralgia of both knees Carpal tunnel syndrome on left Carpal tunnel syndrome Deep vein thrombosis (DVT) of left lower extremity (HCC) Seizure disorder (CMS/HCC) (HCC) Unspecified epilepsy without mention of intractable epilepsy Hypothyroidism Unspecified hypothyroidism Mixed anxiety and depressive disorder Dysthymic disorder documented in this encounter Admitting Diagnoses Diagnosis May-Thurner syndrome Compression of vein documented in this encounter Administered Medications Inactive Administered Medications - up to 3 most recent administrations Medication Order MAR Action Action Date Dose Rate Site ALPRAZolam (XANAX) tablet 1 mg 1 mg, oral, 3 times daily PRN, anxiety, Starting on Sat11/14/23 at 1805, for anxiety, Indications: anxietyIndications:anxiety Given 11/15/2023 1:54 PM CDT 1 mg buPROPion XL (WELLBUTRIN XL) 24 hour tablet 300 mg 300 mg, oral, Nightly, First dose on Doris 11/14/23 at 2200, Do not crush, chew, cut, dissolve, open or otherwise manipulate tablet/capsule., Indications: Anxiety with DepressionIndications:Anxiety with Depression Given 11/14/2023 10:30 PM CDT 300 mg Carrier Fluids for Secondary Infusion - 0.9% Sodium Chloride 30 mL, intravenous, As needed, For priming tubing and/or flushing, Starting on Doris 11/14/23 at 0940, 0-250 ml/hr to flush line after IV infusions when no maintenance IV ordered. Infuse 30mL at the same rate as the secondary infusion. Run as primary IV, not intended for KVO. clopidogreL (PLAVIX) tablet 75 mg 75 mg, oral, Daily, First dose on Doris 11/14/23 at 1645 Given 11/15/2023 9:15 AM CDT 75 mg Given 11/14/2023 7:01 PM CDT 75 mg dextroamphetamine-amphetamine XR (ADDERALL XR) extended release capsule 30 mg 30 mg, oral, Every morning, First dose on Sat11/15/23 at 0900, Do not crush - May open capsule and sprinkle contents on applesause and consume without chewing. To avoid insomnia, last daily dose should be administered at least 6 hours before bedtime., Indications: Attention-Deficit Hyperactivity DisorderIndications:Attention-Def icit Hyperactivity Disorder Given 11/15/2023 9:14 AM CDT 30 mg hydrOXYzine (ATARAX) tablet 25 mg 25 mg, oral, Once, On Sat11/15/23 at 0230, For 1 dose Given 11/15/2023 1:57 AM CDT 25 mg hydrOXYzine (ATARAX) tablet 25 mg 25 mg, oral, Once, On Sat11/15/23 at 1015, For 1 dose Given 11/15/2023 10:24 AM CDT 25 mg Lactated Ringer's (LR) bolus 1,000 mL 1,000 mL, intravenous, at 500 mL/hr, Administer over 2 Hours, Once, On Sat11/15/23 at 1015, For 1 dose New Bag 11/15/2023 10:31 AM CDT 1,000 mL 500 mL/hr lamoTRIgine (LaMICtal) tablet 150 mg 150 mg, oral, Daily, First dose on Sat11/14/23 at 2200 Given 11/15/2023 9:15 AM CDT 150 mg Given 11/14/2023 10:30 PM CDT 150 mg levothyroxine (SYNTHROID) tablet 175 mcg 175 mcg, oral, Daily (early AM), First dose on Sat11/15/23 at 0600, Administer on an empty stomach, preferably 30 minutes before breakfast. Take 4 hours apart from antacids, iron and calcium products. Separate from tube feeds, if applicable. Given 11/15/2023 5:53 AM CDT 175 mcg lidocaine (ASPERCREME) 4 % patch 1 patch 1 patch, transdermal, Administer over 12 Hours, Every 24 hours, First dose on Sat11/15/23 at 0630, Apply to affected area: back Medication Applied 11/15/2023 6:06 AM CDT 1 patch Back lidocaine (PF) (XYLOCAINE) 10 mg/mL (1 %) preservative free injection As needed, Starting on Doris 11/14/23 at 1510, Intra-Procedure (IR), Indications: Administration of Local AnesthesiaIndications:Administr ation of Local Anesthesia Given 11/14/2023 3:10 PM CDT 10 mL ondansetron ODT (ZOFRAN-ODT) disintegrating tablet 8 mg 8 mg, oral, Every 8 hours PRN, nausea, Starting on Doris 11/14/23 at 1807, for nausea Given 11/15/2023 9:15 AM CDT 8 mg Given 11/14/2023 9:11 PM CDT 8 mg oxyCODONE-acetaminophen (PERCOCET) 5-325 mg per tablet 1 tablet 1 tablet, oral, Every 4 hours PRN, 1st line for pain, Starting on Doris 11/14/23 at 1845, Indications: PainIndications:Pain Given 11/15/2023 10:24 AM CDT 1 t ablet Given 11/15/2023 5:53 AM CDT 1 tablet Given 11/14/2023 7:01 PM CDT 1 tablet pregabalin (LYRICA) capsule 50 mg 50 mg, oral, 3 times daily, First dose on Doris 11/14/23 at 2200, Indications: painIndications:pain Given 11/14/2023 10:30 PM CDT 50 mg prochlorperazine (COMPAZINE) injection 5 mg 5 mg, intravenous, Administer over 2 Minutes, Every 6 hours PRN, nausea, vomiting, 2nd line, Starting on Doris 11/14/23 at 2233 Given 11/14/2023 10:43 PM CDT 5 mg rivaroxaban (XARELTO) tablet 20 mg 20 mg, oral, Daily with dinner, First dose on Doris 11/14/23 at 1845, Nurse to discontinue heparin infusion order and associated bolus at first administration of rivaroxaban using 'order condition met' order source. If patient is eating, administer doses of 15 mg or greater with food. If patient is not eating, still administer dose unless instructed differently by provider., Indications: Venous ThrombosisIndications:Venous Thrombosis Given 11/14/2023 7:01 PM CDT 20 m g sodium chloride 0.9% flush 0.5-20 mL 0.5-20 mL, intra-catheter, Every 8 hours scheduled, First dose on Doris 11/14/23 at 1400, Flush volume based on line type and size. Given 11/15/2023 5:55 AM CDT 10 mL Given 11/14/2023 10:32 PM CDT 10 mL sodium chloride 0.9% flush 0.5-20 mL 0.5-20 mL, intra-catheter, As needed, line care, Starting on Doris 11/14/23 at 0940, Flush volume based on line type and size. Flush before and after each use. sodium chloride 0.9% flush 10-20 mL 10-20 mL, intra-catheter, As needed, line care, with each use, Starting on Doirs 11/14/23 at 0940, Flush volume based on line type, size, and protocol. sodium chloride 0.9% flush 5-10 mL 5-10 mL, intra-catheter, Every 12 hours scheduled, First dose on Doris 11/14/23 at 1015, Flush volume based on line type, size, and protocol. sodium chloride 0.9% infusion 30 mL/hr, intravenous, Continuous, Starting on Doris 11/14/23 at 1015 Restarted 11/14/2023 3:42 PM CDT Rate/Dose Verify 11/14/2023 2:33 PM CDT 30 mL/h r New Bag 11/14/2023 10:52 AM CDT 30 mL/hr 30 mL/hr documented in this encounter Discontinued Medications Medication Sig Discontinue Reason Start Date End Da te cloNIDine (CATAPRES) 0.3 mg tabletIndications:hypert ension Take 1 tablet (0.3 mg total) by mouth nightly at bedtime 10/17/2023 11/15/2023 lidocaine (LIDODERM) 5 % Place 1 patch on the skin daily Remove & discard patch within 12 hours or as directed by MD. Stop Taking at Discharge 11/01/2020 11/15/2023 ondansetron ODT (ZOFRAN-ODT) 8 mg disintegrating tablet Take 1 tablet (8 mg total) by mouth every 8 (eight) hours as needed for nausea Stop Taking at Discharge 11/15/2023 documented as of this encounter Active and Recently Administered Medications Times are shown in CDT. Scheduled Medication Order 11/13/2023 11/14/2023 11/15/2023 buPROPion XL (WELLBUTRIN XL) 24 hour tablet 300 mg 300 mg, oral, Nightly, First dose on Sat11/14/23 at 2200, Do not crush, chew, cut, dissolve, open or otherwise manipulate tablet/capsule., Indications: Anxiety with Depression 223 (Given - Provider: Mary Alice Mei) cloNIDine (CATAPRES) tablet 0.3 mg 0.3 mg, oral, Nightly, First dose on Sat11/14/23 at 2100, Indications: hypertension, On hold since Sat11/14/2023 at 2225 until manually unheld 2099 (Due)2224 (Held by Provider - Provider: Nga Fuenets MD - Reason: Change in Patient Status) 1900 (Unheld by Provider - Provider: Automatic Discharge Provider) clopidogreL (PLAVIX) tablet 75 mg 75 mg, oral, Daily, First dose on Sat11/14/23 at 1645 1901 (Given - Provider: Chanda Bales RN) 0915 (Given - Provider: Chanda Bales RN) dextroamphetamine-amphetami ne XR (ADDERALL XR) extended release capsule 30 mg 30 mg, oral, Every morning, First dose on Sat11/15/23 at 0900, Do not crush - May open capsule and sprinkle contents on applesause and consume without chewing. To avoid insomnia, last daily dose should be administered at least 6 hours before bedtime., Indications: Attention-Deficit Hyperactivity Disorder 0914 (Given - Provid er: Chanda Bales RN) heparin 100 unit/mL injection 500 Units 500 Units (5 mL), intra-catheter, Once, On Sat11/14/23 at 1015, For 1 dose, For port decannulation., Indications: Maintain Patency of Indwelling Vascular Catheter 1015 (Due) hydrOXYzine (ATARAX) tablet 25 mg (COMPLETED) 25 mg, oral, Once, On Sat11/15/23 at 0230, For 1 dose 0157 (Given - Provid er: Mary Lam RN) hydrOXYzine (ATARAX) tablet 25 mg (COMPLETED) 25 mg, oral, Once, On Sat11/15/23 at 1015, For 1 dose 1024 (Given - Provid er: Chanda Bales, YANET) Lactated Ringer's (LR) bolus 1,000 mL (COMPLETED) 1,000 mL, intravenous, at 500 mL/hr, Administer over 2 Hours, Once, On Sat11/15/23 at 1015, For 1 dose 1031 (New Bag - Prov ider: Chanda Bales, YANET) lamoTRIgine (LaMICtal) tablet 150 mg 150 mg, oral, Daily, First dose on Sat11/14/23 at 2200 2230 (Given - Provider: Mary Alice Mei) 0915 (Given - Provider: Chanda Bales, YANET) levothyroxine (SYNTHROID) tablet 175 mcg 175 mcg, oral, Daily (early AM), First dose on Sat11/15/23 at 0600, Administer on an empty stomach, preferably 30 minutes before breakfast. Take 4 hours apart from antacids, iron and calcium products. Separate from tube feeds, if applicable. 0553 (Given - Provid er: Mary Alice Mei) lidocaine (ASPERCREME) 4 % patch 1 patch 1 patch, transdermal, Administer over 12 Hours, Every 24 hours, First dose on Sat11/15/23 at 0630, Apply to affected area: back 0606 (Medication Sal lied - Provider: Mary Alice Mei)1500 (Due: Medication Removed - Provider: Automatic Discharge Provider - Comment: Time automatically adjusted from order being discontinued) pregabalin (LYRICA) capsule 50 mg 50 mg, oral, 3 times daily, First dose on Sat11/14/23 at 2200, Indications: pain 2230 (Given - Provider: Mary Alice Mei) 0915 (Hold - Provider: Chanda Bales RN - Reason: Patient/family refused - Comment: PT TAKES AT 1700) rivaroxaban (XARELTO) tablet 20 mg 20 mg, oral, Daily with dinner, First dose on Sat11/14/23 at 1845, Nurse to discontinue heparin infusion order and associated bolus at first administration of rivaroxaban using 'order condition met' order source. If patient is eating, administer doses of 15 mg or greater with food. If patient is not eating, still administer dose unless instructed differently by provider., Indications: Venous Thrombosis 1901 (Given - Provider: Chanda Bales RN) sodium chloride 0.9% flush 0.5-20 mL 0.5-20 mL, intra-catheter, Every 8 hours scheduled, First dose on Doris 11/14/23 at 1400, Flush volume based on line type and size. 1859 (Canceled Entry - Provider: Chanda Bales RN)2232 (Given - Provider: Mary Alice Mei) 0555 (Given - Provider: Mary Alice Mei)1256 (Not Given - Provider: Chanda Bales RN - Reason: Order parameters not met) sodium chloride 0.9% flush 10 mL 10 mL, intra-catheter, Once, On Doris 11/14/23 at 1015, For 1 dose, Prior to heparin to decannulate port. 1015 (Due) sodium chloride 0.9% flush 5-10 mL 5-10 mL, intra-catheter, Every 12 hours scheduled, First dose on Doris 11/14/23 at 1015, Flush volume based on line type, size, and protocol. 1015 (Due)2232 (Not Given - Provider: Mary Alice Mei - Reason: Other - Comment: duplicate) 0915 (Canceled Entry - Provider: Chanda Bales RN) Continuous Medication Order 11/13/2023 11/14/2023 11/15/2023 sodium chloride 0.9% infusion 30 mL/hr, intravenous, Continuous, Starting on Doris 11/14/23 at 1015 1052 (New Bag - Provider: Nohemy Aj RN)1433 (Rate/Dose Verify - Provider: Jagdeep Guillory CRNA)1541 (Paused - Provider: Jagdeep Guillory CRNA - Comment: Switch to gravity)1542 (Restarted - Provider: Jagdeep Guillory CRNA) 1900 (Due: Stopped) PRN Medication Order 11/13/2023 11/14/2023 11/15/2023 ALPRAZolam (XANAX) tablet 1 mg 1 mg, oral, 3 times daily PRN, anxiety, Starting on Doris 11/14/23 at 1805, for anxiety, Indications: anxiety 1354 (Given - Provid er: Chanda Bales RN) Carrier Fluids for Secondary Infusion - 0.9% Sodium Chloride 30 mL, intravenous, As needed, For priming tubing and/or flushing, Starting on Doris 11/14/23 at 0940, 0-250 ml/hr to flush line after IV infusions when no maintenance IV ordered. Infuse 30mL at the same rate as the secondary infusion. Run as primary IV, not intended for KVO. lidocaine (PF) (XYLOCAINE) 10 mg/mL (1 %) preservative free injection (COMPLETED) As needed, Starting on Doris 11/14/23 at 1510, Intra-Procedure (IR), Indications: Administration of Local Anesthesia 1510 (Given - Provider: Lars Blankenship MD) ondansetron ODT (ZOFRAN-ODT) disintegrating tablet 8 mg 8 mg, oral, Every 8 hours PRN, nausea, Starting on Doris 11/14/23 at 1807, for nausea 2111 (Given - Provider: Mary Alice Mei) 0915 (Given - Provider: Chanda Bales RN) oxyCODONE-acetaminophen (PERCOCET) 5-325 mg per tablet 1 tablet 1 tablet, oral, Every 4 hours PRN, 1st line for pain, Starting on Doris 11/14/23 at 1845, Indications: Pain 1901 (Given - Provider: Chanda Bales RN) 0553 (Given - Provider: Mary Alice Mei)1024 (Given - Provider: Chanda Bales, YANET) prochlorperazine (COMPAZINE) injection 5 mg 5 mg, intravenous, Administer over 2 Minutes, Every 6 hours PRN, nausea, vomiting, 2nd line, Starting on Doris 11/14/23 at 2233 2243 (Given - Provider: Mary Alice Mei) sodium chloride 0.9% flush 0.5-20 mL 0.5-20 mL, intra-catheter, As needed, line care, Starting on Doris 11/14/23 at 0940, Flush volume based on line type and size. Flush before and after each use. sodium chloride 0.9% flush 10-20 mL 10-20 mL, intra-catheter, As needed, line care, with each use, Starting on Doris 11/14/23 at 0940, Flush volume based on line type, size, and protocol. documented in this encounter Orders Medications Ordered That Nael ht Not Have Been Administered Count Last Ordered Date First Ordered Date Carrier Fluids for Secondary Infusion - 0.9% Sodium Chloride 1 11/14/2023 cloNIDine (CATAPRES) tablet 0.3 mg 1 2023 fentaNYL (SUBLIMAZE) preserv ative free injection 50 mcg 1 11/14/2023 haloperidol (HALDOL) injection 1 mg 1 11/13 heparin 100 unit/mL injection 500 Units 1 0 11/14/2023 HYDROcodone-acetaminophen (N ORCO) 5-325 mg per tablet 1 tablet 1 11/14/2023 HYDROmorphone (DILAUDID) injection 0.2 mg 11/14/2023 HYDROmorphone (DILAUDID) injection 0.4 mg 11/14/2023 naloxone (NARCAN) 0.4 mg/mL injection 0.04-0.4 mg 1 11/14/2023 oxyCODONE (ROXICODONE) tablet 5 mg 2023 prochlorperazine (COMPAZINE) injection 5 mg 1 11/14/2023 sodium chloride 0.9% flush 0.5-20 mL 10/21 sodium chloride 0.9% flush 10 mL 11/14/19 sodium chloride 0.9% flush 10-20 mL 11/13 sodium chloride 0.9% flush 5-10 mL 2023 General Supply Count Last Ordered Date First Or dered Date WALKER 11/15/2023 Diet Count Last Ordered Date First Orde red Date ADULT DISCHARGE DIET 11/15/2023 Nursing Count Last Ordered Date First Orde red Date DISCHARGE ACTIVITY 4 11/15/2023 DISCHARGE CALL PROVIDER 11 11/15/2023 DISCHARGE DRESSING 1 11/15/2023 DISCHARGE INSTRUCTIONS 11/15/2023 WEIGHT RESTRICTIONS 11/15/2023 SKIN PREP 11/14/2023 VITAL SIGNS 11/14/2023 VOID VP REVENUE CYCLE TO OR 1 11/14/2023 Admission Count Last Ordered Date First Orde red Date INITIATE OUTPATIENT IN A BED 1 11/14/2023 Discharge Count Last Ordered Date First Orde red Date DISCHARGE PATIENT 1 11/15/2023 CORE MEASURES Count Last Ordered Date First Ord ered Date REASON FOR NO VTE PROPHYLAXIS AT ADMISSION 1 11/14/2023 documented in this encounter Care Teams Curator Of Collections Relationship Specialty Start Date End Date Pierre Cisneros PA [address] [place] [address] PCP - General Internal Medicine 09/04/23 documented as of this encounter
--- OUTSIDE RECORDS SUMMARY | 2024-04-26 21:22 | XMS_ITS | Encounter Summary ---
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 Gender Identity Female 10/24/2023 9:52 AM CDT [...] Procedure Name Priority Date/Time Associated Diagnosis Comments LUPUS ANTICOAGULANT PANEL PLUS REFLEXES Routine 01/21/2024 9:00 AM CDT May-Thurner syndrome Deep venous thrombosis (CMS/HCC) ([facility]) CIARRA QUALITATIVE WITH REFLEX TO CIARRA QUANTITATIVE Routine 01/21/2024 9:00 AM CDT May-Thurner syndrome Deep venous thrombosis (CMS/HCC) ([facility]) C4 COMPLEMENT Routine 01/21/2024 9:00 AM CDT May-Thurner syndrome Deep venous thrombosis (CMS/HCC) ([facility]) GOVIND ANTIBODY EVALUATION WITH REFLEX Routine 01/21/2024 9:00 AM CDT May-Thurner syndrome Deep venous thrombosis (CMS/HCC) (HCC) CARDIOLIPIN ANTIBODY, IGG Routine 01/21/2024 9:00 AM CDT May-Thurner syndrome Deep venous thrombosis (CMS/HCC) (HCC) BETA 2 GLYCOPROTEIN IGM AB Routine 01/21/2024 9:00 AM CDT May-Thurner syndrome Deep venous thrombosis (CMS/HCC) (HCC) BETA 2 GLYCOPROTEIN IGG AB Routine 01/21/2024 9:00 AM CDT May-Thurner syndrome Deep venous thrombosis (CMS/HCC) (HCC) CYCLIC CITRUL PEPTIDE ANTIBODY, IGG Routine 01/21/2024 9:00 AM CDT May-Thurner syndrome Deep venous thrombosis (CMS/HCC) (HCC) CARDIOLIPIN ANTIBODY, IGM Routine 01/21/2024 9:00 AM CDT May-Thurner syndrome Deep venous thrombosis (CMS/HCC) (HCC) RHEUMATOID FACTOR Routine 01/21/2024 9:0 0 AM CDT May-Thurner syndrome Deep venous thrombosis (CMS/HCC) (HCC) C3 COMPLEMENT Routine 01/21/2024 9:00 AM CDT May-Thurner syndrome Deep venous thrombosis (CMS/HCC) (HCC) documented in this encounter Results * Cyclic citrul peptide antibody, IgG (01/21/2024 9:00 AM CDT) CCP Ab <0.5 <=2.9 units/mL Comment: Interpretive data Negative: <3 units/mL Positive: > or equal to 3 units/mL Current interpretive data was last revised on 2016. Testing performed by: [facility], [address], [place]., [address] Blood 01/21/2024 9:00 AM CDT 01/22/2024 10:13 AM CDT us Chantel Zhang MD LAB BLOOD ORDERABLES Final Resul t Performing Organization Address City/[facility] Co de Phone Number TEZ PARISI [phone] [place] [place] [address] * Rheumatoid factor (01/21/2024 9:00 AM CDT) Rheumatoid factor, quant <10 <=15 IUnits/mL Blood 01/21/2024 9:00 AM CDT 01/21/2024 3:46 PM CDT us Chantel Zhang MD LAB BLOOD ORDERABLES Final Resul t Performing Organization Address [facility] Phone Number TEZ PARISI [address] [place] [address] * Lupus Anticoagulant Panel plus Reflexes (01/21/2024 9:00 AM CDT) Pathologist [facility] PT See Comment 9.7 - 13.0 sec Comment: Credited, due to interfering anticoagulants. Testing performed by: [facility], [address] [place]., [address] INR See Comment 0.90 - 1.20 TEZ Comment: Credited, due to interfering anticoagulants. Interpretive data Oral anticoagulant therapeutic ranges: Venous thromboembolism prophylaxis or treatment: 2.0-3.0 CARDIOLOGY Standard range: 2.0-3.0 High-intensity range: 2.5-3.5 Refer to indication-specific guidelines for appropriate target ranges for prosthetic heart valve replacement. Current interpretive data was last revised on 2019. Testing performed by: [facility], [address] [place]., [address] aPTT See Comment 28 - 38 sec TEZ Comment: Credited, due to interfering anticoagulants. Interpretive Data Heparin therapeutic range: 66.0 - 100.0 seconds. Range based on correlation with therapeutic heparin activity range of 0.3 - 0.7 Units/mL. Current interpretive data was last revised on 2023. Testing performed by: [facility], [address] [place]., [address] DRVVT screen ratio See Comment 0.00 - 1.20 Ratio [facility] Comment: Credited, due to interfering anticoagulants. Testing performed by: [facility], [address] [place]., [address] SCT Screen Ratio See Comment 0.00 - 1.16 Ratio [facility] Comment: Credited, due to interfering anticoagulants. Testing performed by: [facility], [address] [place]., [address] Lupus anticoagulant, interp See Comment TEZ Comment: Credited, due to interfering anticoagulants. Interpretive data ?? Lupus anticoagulants (LA) are acquired autoantibodies that interfere with invitro clotting in a phospholipid-dependent manner and are associated with an increased risk of thromboembolic events and complications. ?? Routine APTT and PT reagents are not sensitive to inhibition by LA, and should not be used as screening tests. ? The laboratory follows ISTH 2009 guidelines (Andersono, 2009) for LA testing and interpretation: Two sensitive methods performed in parallel improve sensitivity. One activates the intrinsic pathway (Silica-APTT) and one activates the common pathway (dilute Paco's viper venom time - dRVVT). ?? Each method begins with a SCREEN step, and if neither is prolonged, no further testing is performed and the interpretation is: NO LA DETECTED. ?? If either screening test is prolonged, then additional steps are performed to provide specificity. A POSITIVE LA result occurs if either one or both tests produce a positive CONFIRM result. ?? An INDETERMINATE result means results cannot distinguish between coagulopathy and a weak LA. Consider retesting when PT/INR is less prolonged, if clinical indicated. ?? To support laboratory confirmation of antiphospholipid syndrome, persistence of a positive LA result should be verified by repeat testing at least 12 weeks later (Miyakis, 2006). ?? Prior to LA testing, the laboratory screens patient plasma samples for evidence of heparin contamination, which is neutralized prior to LA testing, and the following interfering conditions which require canceling LA testing: INR >3.0, fibrinogen < 100 mg/dl, use of direct oral or IV anticoagulants other than heparin. ?? References: 1) Erik Armstrong, Gypsy A, Flandreau JH, Ortel TL, Jhonny M, De Andres PG. Update of the guidelines for lupus anticoagulant detection. J Thromb Haemost. 2009; 7:9266-2873. 2. Ellen S. et al. International consensus statement on an update of the classification criteria for definite antiphospholipid syndrome (APS). J Thromb Haemost. 2006; 4:295-306. Current interpretive data was last revised on 2018 Testing performed by: [facility], [address] [place]., [address] Blood 01/21/2024 9:00 AM CDT 01/22/2024 9:59 AM CDT us Chantel Zhang MD LAB BLOOD ORDERABLES Final Resul t TEZ [address] [facility] Department [place] [address] * Cardiolipin antibody, IgM (01/21/2024 9:00 AM CDT) Cardiolipin, IgM 0.4 <=19.9 MPL U/mL Comment: Interpretive Data Negative: <20 MPL U/mL Positive: > or = 20 MPL U/mL Anticardiolipin antibodies are associated with certain clinical events including unexplained arterial and venous thromboemboli, and unexplained morbidity. However, detection of low levels of anticardiolipin antibodies occurs in both healthy individuals and patients with co-morbidities not associated with the antiphospholipid antibody (APA) syndrome including inflammatory and infectious conditions. In order to improve specificity, the International Congress on Antiphospholipid Antibodies recommends ACL antibodies of IgG or IgM isotype present in medium or high titer (e.g. > 40 MPL, or >the 99th percentile), on two or more occasions, at least 12 weeks apart, to support a diagnosis of antiphospholipid syndrome. The cutoff for this assay was developed from data based on the 99th percentile. ?? In addition, the International Congress on Antiphospholipid Antibodies does not recommend testing for IgA ANTHONY. The ACL IgM test can produce false positive results due to cross- reactivity with Rheumatoid factor, dsDNA or certain infectious disease antibodies. ??These results were obtained with the [employer] BioPlex 2200 System. Cardiolipin IgM values obtained with different manufacturers' assay methods may not be used interchangeably. Current interpretive data was last revised on 2016. Testing performed by: [facility], [address] [place] [address]., [address] Blood 01/21/2024 9:00 AM CDT 01/22/2024 10:13 AM CDT us Chantel Zhang MD LAB BLOOD ORDERABLES Final Resul t TEZ [address] [address] Department [place] [address] * Cardiolipin antibody, IgG (01/21/2024 9:00 AM CDT) Cardiolipin, IgG <1.6 <=19.9 GPL U/mL Comment: Interpretive Data Negative: <20 GPL U/mL Positive: > or = 20 GPL U/mL Anticardiolipin antibodies are associated with certain clinical events including unexplained arterial and venous thromboemboli, and unexplained morbidity. However, detection of low levels of anticardiolipin antibodies occurs in both healthy individuals and patients with co-morbidities not associated with the antiphospholipid antibody (APA) syndrome including inflammatory and infectious conditions. In order to improve specificity, the International Congress on Antiphospholipid Antibodies recommends ACL antibodies of IgG or IgM isotype present in medium or high titer (e.g. > 40 GPL, or >the 99th percentile), on two or more occasions, at least 12 weeks apart, to support a diagnosis of antiphospholipid syndrome. The cutoff for this assay was developed from data based on the 99th percentile. In addition, the International Congress on Antiphospholipid Antibodies does not recommend testing for IgA ANTHONY. These results were obtained with the [employer] BioPlex 2200 System. Cardiolipin IgG values obtained with different manufacturers' assay methods may not be used interchangeably. Current interpretive data was last revised on 2016. Testing performed by: [facility], [address] [place] [address], [place]., [address] Blood 01/21/2024 9:00 AM CDT 01/22/2024 10:13 AM CDT Chantel Zhang MD LAB BLOOD ORDERABLES Final Resul t Performing Organization Address [facility] Co de Phone Number TEZ PARISI [phone] [address] [place] [address] * Beta 2 glycoprotein IgM Ab (01/21/2024 9:00 AM CDT) Pathologist [facility] Beta-2 glycoprotein I, IgM 0.4 <=19.9 units/mL Comment: Interpretive Data Negative: <20 U/mL Positive: > or = 20 U/mL ? Beta- 2 glycoprotein 1 (Beta-2 GP1) antibodies are a more specific marker of thrombotic risk. It is expected that some samples will be ACL positive and Beta- 2 GP1 negative. In order to improve specificity, the International Congress on Antiphospholipid Antibodies recommends Beta-2 GP1 antibodies of IgG or IgM isotype ??(> the 99th percentile), obtained twice, at least 12 weeks apart, to support a diagnosis of antiphospholipid syndrome. The cutoff for this assay was developed from data based on the 99th percentile. The Beta-2 GP1 IgM test can produce false positive results due to cross-reactivity with Rheumatoid factor. ??These results were obtained with the [employer] System. Beta-2 GP1 IgM values obtained with different manufacturers' assay methods may not be used interchangeably. Current interpretive data was last revised on 2016. Testing performed by: [facility], [address] [place]., [address] Blood 01/21/2024 9:00 AM CDT 01/22/2024 10:13 AM CDT Chantel Zhang MD LAB BLOOD ORDERABLES Final Resul t Performing Organization Address [facility] Co de Phone Number TEZ PARISI [phone] [address] [place] [address] * Beta 2 glycoprotein IgG Ab (01/21/2024 9:00 AM CDT) Pathologist [facility] Beta-2 glycoprotein I, IgG <1.4 <=19.9 units/mL Comment: Interpretive Data Negative: <20 U/mL Positive: > or = 20 U/mL ? Beta-2 glycoprotein 1 (Beta-2 GP1) antibodies are a more specific marker of thrombotic risk. It is expected that some samples will be ACL positive and Beta- 2 [id number]. In order to improve specificity, the International Congress on Antiphospholipid Antibodies recommends Beta-2 GP1 antibodies of IgG or IgM isotype ??(> the 99th percentile), obtained twice, at least 12 weeks apart, to support a diagnosis of antiphospholipid syndrome. The cutoff for this assay was developed from data based on the 99th percentile. These results were obtained with the [employer]0 System. Beta 2GP1 IgG values obtained with different manufacturers' assay methods may not be used interchangeably. Current interpretive data was last revised on 2016. Testing performed by: [facility], [address] [place]., [address] Blood 01/21/2024 9:00 AM CDT 01/22/2024 10:13 AM CDT Chantel Zhang MD LAB BLOOD ORDERABLES Final Resul t Performing Organization Address City/[facility] Co de Phone Number TEZ [phone] [address] [place] [address] * C4 complement (01/21/2024 9:00 AM CDT) Complement C4 21 10 - 40 mg/dL Blood 01/21/2024 9:00 AM CDT 01/21/2024 3:46 PM CDT Chantel Zhang MD LAB BLOOD ORDERABLES Final Resul t Performing Organization Address City/[facility] Co de Phone Number TEZ [phone] [address] [place] [place] [address] * C3 complement (01/21/2024 9:00 AM CDT) Complement C3 131 90 - 180 mg/dL Blood 01/21/2024 9:00 AM CDT 01/21/2024 3:46 PM CDT Chantel Zhang MD LAB BLOOD ORDERABLES Final Resul t Performing Organization Address [facility] Co de Phone Number TEZ PARISI [address] [address] [facility] [place] [address] * CIARRA ab ql w/rflx to CIARRA qn (01/21/2024 9:00 AM CDT) CIARRA Negative Comment: Interpretive Data Normal range for CIARRA Qualitative Antibody = Negative. 1. CIARRA is performed using indirect immunofluorescence against HEp-2 cells 2. CIARRA titers are performed on all positive qualitative results. 3. A significantly positive CIARRA result is defined as a positive nuclear fluorescence at a titer of 1:80 or greater. 4. 15% of normal people above age 65 have significantly positive CIARRA results. ??5% or less of normal people age 65 or under have significantly positive CIARRA results. Current interpretive data was last revised on 2019. Testing performed by: [facility], [address], [place]., [address] Blood 01/21/2024 9:00 AM CDT 01/22/2024 10:02 AM CDT Chantel Zhang MD LAB BLOOD ORDERABLES Final Resul t Performing Organization Address [facility] Co de Phone Number TEZ PARISI [phone] [address] [place] [address] * GOVIND ab eval w/reflex (01/21/2024 9:00 AM CDT) GOVIND ab Negative Negative Comment: Interpretive Data Positive Screens will be reflexed to specific testing for Antibodies against the following antigens: Victoria-1 Ab, TOBACCO STEMMER Ab, Scl-70 Ab, Haywood Ab, SS-A/Ro Ab, and SS- B/La Ab. Further testing for dsDNA, Centromere, or Ribosomal P antibodies is suggested in patient with a positive screen and negative specific antibodies. Current interpretive data was last revised on 2022. Testing performed by: [facility], [address], [place]., [address] Blood 01/21/2024 9:00 AM CDT 01/22/2024 10:01 AM CDT us Chantel Zhang MD LAB BLOOD ORDERABLES Final Resul t Performing Organization Address City/State/[facility] Co de Phone Number TEZ [phone] [address] Department [place] [address] documented in this encounter Visit Diagnoses Diagnosis May-Thurner syndrome Compression of vein Deep venous thrombosis (CMS/HCC) (HCC) Acute venous embolism and thrombosis of unspecified deep vessels of lower extremity documented in this encounter Care Teams Catalyst Recovery Operator Relationship Specialty Start Date End Date Pierre Cisneros PA [address] [place] [id number] PCP - General Internal Medicine 09/04/23 documented as of this encounter
--- OUTSIDE RECORDS SUMMARY | 2024-04-26 21:22 | XMS_ITS | Encounter Summary ---
Author Organization [facility] Address [address] [place] [address] Phone Care Team Providers Care Filler Block Inserter Remover Name Role Phone Pierre Cisneros Primary Care Provider + Reason for Visit * Reason Onset Date Comments Appointment 01/16/2024 Encounter Details Date Type Department Care Team (Late st Contact Info) Description 01/16/2024 Telephone [facility] Radiology, Interventional Radiology [address] [facility] [address] [place] [address] Becky Olivo, YANET Appointment Social [...] on file 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 Gender Identity Female 10/24/2023 9:52 AM CDT Sexual Orientation Straight 10/24/2023 9: 52 AM CDT documented as of this encounter Miscellaneous Notes * Telephone Encounter - Becky Olivo RN - 01/16/2024 12:51 PM CDT Pt called expressing concerns and would like call back to address her symptoms Pt still has pain in legs Legs feel heavy like lead before and they still do Feels like theres knots in her legs Feels like there is something moving around Was told theres not blood clots, but something still doesn't feel right Also, she said when she went to get imaging done, she was surprised she didn't feel contrast. Patient said you can feel contrast, it gets disability coordinator your body. She didn't feel any contrast until the very end when the tech was telling her to get out of the machine bc exam ended. Wondering when you would see contrast on imaging? And if this matters at all. She is very concerned about some symptoms she is currently still having She also notes she has been having high heart rate episodes. When she was in the hospital she was having them and its still continuing, having fast heart rates. Does not feel anxiety related at all. Says she will be Sitting down and not doing anything and will get increase heart rate. Occasional chest pain. Sometimes hard for her to breath when she has the pain in chest. But again, she doesn't feel this is anxiety related. Says she routinely exercises, but not when she is having these episodes. Pt would like CB to discuss her symptoms and next steps Patient IS expecting call back [phone] documented in this encounter Plan of Treatment Not on file documented as of this encounter Visit Diagnoses Not on filedocumented in this encounter Care Teams Filler Block Inserter Remover Relationship Specialty Start Date End Date Pierre Cisneros PA [address] [place], [place] [phone] PCP - General Internal Medicine 09/04/23 documented as of this encounter
--- OUTSIDE RECORDS SUMMARY | 2024-04-26 21:22 | XMS_ITS | Encounter Summary ---
Author Organization [facility] Healthcare Address [address] [place] [address] Care Team Providers Care Mill Controller Name Role Phone Pierre Cisneros Primary Care Provider + Reason for Visit * Reason Onset Date Comments Bleeding/Bruising 11/16/2023 43 year old fe male post procedure day 2 from left common iliac vein stenting. Called doctor line due to concern for new groin bruising, left lower extremity numbness, and swelling. No motor deficits. Denies fevers, lightheadedness, dizziness. Denies visible bleeding at puncture site. Due to new swelling and lower extremity numbness, advised patient to proceed to the emergency department for further evaluation.Also concerned for dermabond starting to come off. Reassured that this was ok. Encounter Details Date Type Department Care Team (Late st Contact Info) Description 11/16/2023 Telephone Radiology [address] [place] [address] Garo Ye MD [facility] [place] [address] Bleeding/Bruising (43 year old female post procedure day 2 from left common iliac vein stenting. Called doctor line due to concern for new groin bruising, left lower extremity numbness, and swelling. No motor deficits. Denies fevers, lightheadedness, dizziness. Denies visible bleeding at puncture site. Due to new swelling and lower extremity numbness, advised patient to proceed to the emergency department for further evaluation.//Also concerned for dermabond starting to come off. 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 Called doctor line due to concern for new groin bruising, left lower extremity numbness, and swelling. No motor deficits.Denies fevers, lightheadedness, dizziness. Denies visible bleeding at puncture site. Due to new swelling and lower extremity numbness, advised patient to proceed to the emergency department for further evaluation. Also concerned for dermabond starting to come off. Reassured that this was ok. documented in this encounter Plan of Treatment Not on file documented as of this encounter Visit Diagnoses Not on filedocumented in this encounter Care Teams Mill Controller Relationship Specialty Start Date End Date Pierre Cisneros PA [address] [place] [address] PCP - General Internal Medicine 09/04/23 documented as of this encounter
--- OUTSIDE RECORDS SUMMARY | 2024-04-26 21:22 | XMS_ITS | Encounter Summary ---
Author Organization [facility] Healthcare Address [address] [place] [address] Care Team Providers Care Brick Shader Name Role Phone Pierre Cisneros Primary Care Provider + Reason for Referral * MRI/CAT/PET Scan (Routine) - Closed Specialty Diagnoses / Procedures Referred By Contac t Referred To Contact Radiology Diagnoses May-Thurner syndrome Procedures CT Abdomen Pelvis W Contrast Umberto Garcia MD [address] [place] [address] Phone: tel: fax: [address] [phone] Referral ID Status Reason Start Date Expiration Date Visits Re quested Visits Authorized [id number] Closed 12/17/2023 12/16/2024 1 1 Reason for Visit * MRI/CAT/PET Scan (Routine) - Closed Specialty Diagnoses / Procedures Referred By Contac t Referred To Contact Radiology Diagnoses May-Thurner syndrome Procedures CT Abdomen Pelvis W Contrast Umberto Garcia MD [address] [place] [address] Phone: tel: fax: [address] [phone] Referral ID Status Reason Start Date Expiration Date Visits Re quested Visits Authorized [id number] Closed 12/17/2023 12/16/2024 1 1 Encounter Details Date Type Department Care Team (Latest Contact Info) Description 01/03/2024 10:00 AM CDT - 01/03/2024 11:59 PM CDT Hospital Encounter [facility] [address] [place] [address] May-Thurner syndrome Discharge Disposition: Discharge to home or self [...] on file 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 Gender Identity Female 10/24/2023 9:52 AM CDT [...] mg total) by mouth daily 30 tablet 1 12/19/2023 4 rivaroxaban (XARELTO) 20 mg tablet Take 1 tablet (20 mg total) by mouth daily with breakfast 30 tablet 3 10/09/2023 4 documented as of this encounter Discharge Disposition Disposition Code Departure Means Destination Discharge to home or self care documented in this encounter Plan of Treatment Not on file documented as of this encounter Procedures Procedure Name Priority Date/Time Associated Diagnosis Comments CT ABDOMEN PELVIS W CONTRAST Schedule Routine, Read Routine (OP Routine) 01/03/2024 11:16 AM CDT May-Thurner syndrome POCT CREATININE - DEVICE Routine 01/03/2024 10:55 AM CDT documented in this encounter Results * CT Abdomen Pelvis [...] by: Octavia Hartmann M.D. Umberto Garcia MD IMG CT PROCEDURES Final Result * (ABNORMAL) POCT creatinine (01/03/2024 10:55 AM CDT) Creatinine POC 1.3(H) 0.6 - 1.1 mg/dL Blood 01/03/2024 10:5 5 AM CDT 01/03/2024 10:55 AM CDT Umberto Garcia MD LAB POCT ORDERABLES - DEVICE Fin al Result [facility] Department [place] [address] documented in this encounter Visit Diagnoses Diagnosis May-Thurner syndrome Compression of vein documented in this encounter Administered Medications Inactive Administered Medications - up to 3 most recent administrations Medication Order MAR Action Action Date Dose Rate Site ioversoL (OPTIRAY 350) syringe 75 mL 75 mL, intravenous, Once in imaging, contrast, Starting on Sat01/03/24 at 1104, For 1 dose Contrast Given 01/03/2024 11:14 AM CDT 68 mL documented in this encounter Orders Medications Ordered That Nael ht Not Have Been Administered Count Last Ordered Date First Ordered Date ioversoL (OPTIRAY 350) syringe 75 mL 1 12/21 documented in this encounter Care Teams Brick Shader Relationship Specialty Start Date End Date Pierre Cisneros PA [address] [place] [address] PCP - General Internal Medicine 09/04/23 documented as of this encounter
--- OUTSIDE RECORDS SUMMARY | 2024-04-26 21:22 | XMS_ITS | Encounter Summary ---
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 Garcia informed her that she needed an updated US of her legs. Patient also asking if she needed to continue to wear her compression stockings and also requested a name of a maintenance operator. Patient asking if she could get in sooner for her procedure, stating I'm in so much pain . Patient reports that she's having intermittent discoloration tohands/feet. Dr. Garcia made aware. No need for repeat US. No other anesthesia time until 11/14/23 for procedure. Patient needs to continue to wear her compression stockings and reach out to PCP for hematology referral. Return call to patient, detailed message left. To call PRN documented in this encounter Plan of Treatment Not on file documented as of this encounter Visit Diagnoses Not on filedocumented in this encounter Care Teams Foxpro Developer Relationship Specialty Start Date End Date Pierre Cisneros PA [address] [place] [address] PCP - General Internal Medicine 09/04/23 documented as of this encounter
--- OUTSIDE RECORDS SUMMARY | 2024-04-26 21:22 | XMS_ITS | Encounter Summary ---
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 She is currently at [facility] in [place], [place]. They just did an US on her legs but no results yet. She states she is also having pain where my armpit, shoulder and breast meet . She is currently being worked up for these concerns. She also notes that her menstrual cycle has been lasting longer. Recommend that she follow up with OBGYN regarding her menstrual cycle. She will request that all records from today's visit be sent to [facility]. NC will follow up with her tomorrow. documented in this encounter Plan of Treatment Not on file documented as of this encounter Visit Diagnoses Not on filedocumented in this encounter Care Teams Magazine Worker Relationship Specialty Start Date End Date Pierre Cisneros PA [address] [place] [address] PCP - General Internal Medicine 09/04/23 documented as of this encounter
--- OUTSIDE RECORDS SUMMARY | 2024-04-26 21:22 | XMS_ITS | Encounter Summary ---
Author Organization [facility] Healthcare Address [address] [place] [address] Care Team Providers Care Emergency Service Restorer Name Role Phone Pierre Cisneros Primary Care Provider + Encounter Details Date Type Department Care Team (Late st Contact Info) Description 01/21/2024 10:00 AM CDT Lab [facility] Outpatient Lab at [address] [phone] Encounter for health-related screening (Primary Dx); Anxiety disorder; Abnormal laboratory test result; Hypothyroidism; Migraine; Mixed anxiety and depressive disorder; Multinodular goiter Social History Tobacco Use Types Packs/Day Years [...] on file 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 Gender Identity Female 10/24/2023 9:52 AM CDT Sexual Orientation Straight 10/24/2023 9: 52 AM CDT documented as of this encounter Plan of Treatment Not on file documented as of this encounter Visit Diagnoses Diagnosis Encounter for health-related screening- Primary Anxiety disorder Anxiety state, unspecified Abnormal laboratory test result Other abnormal clinical finding Hypothyroidism Unspecified hypothyroidism Migraine Migraine, unspecified, without mention of intractable migraine without mention of status migrainosus Mixed anxiety and depressive disorder Dysthymic disorder Multinodular goiter Nontoxic multinodular goiter documented in this encounter Care Teams Emergency Service Restorer Relationship Specialty Start Date End Date Pierre Cisneros PA [address] [place] [address] PCP - General Internal Medicine 09/04/23 documented as of this encounter
--- OUTSIDE RECORDS SUMMARY | 2024-04-26 21:22 | XMS_ITS | Encounter Summary ---
Author Organization [facility] Address [address] [place] [address] Phone Care Team Providers Care Retort Press Operator Name Role Phone Pierre Cisneros Primary Care Provider + Reason for Visit * Reason Onset Date Comments voicemail 11/20/2023 Encounter Details Date Type Department Care Team (Late st Contact Info) Description 11/20/2023 Telephone [facility] Radiology, Interventional Radiology [address] [facility] [address] [place] [address] Becky Olivo, YANET voicemail Social History Tobacco Use Types Packs/Day Years [...] on file 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 [employer] Gender Identity Female 10/24/2023 9:52 AM CDT Sexual Orientation Straight 10/24/2023 9: 52 AM CDT documented as of this encounter Miscellaneous Notes * Telephone Encounter - Becky Olivo RN - 11/20/2023 7:55 AM CDT Pt LM with clinic again returning your phone call Patient IS expecting call back documented in this encounter Plan of Treatment Not on file documented as of this encounter Visit Diagnoses Not on filedocumented in this encounter Care Teams Retort Press Operator Relationship Specialty Start Date End Date Pierre Cisneros PA [address] [place] [address] PCP - General Internal Medicine 09/04/23 documented as of this encounter
--- OUTSIDE RECORDS SUMMARY | 2024-04-26 21:22 | XMS_ITS | Encounter Summary ---
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 Garcia: 1) Let's setup a pelvic venogram and left common iliac vein stent placement under general anesthesia in the next 3-4 weeks - same day discharge. Cbc, bmp, inr in the AM. 2) I've prescribed her Xarelto today - she should continue taking this for the procedure. Called pt to schedule. She is requesting to be called back tomorrow for scheduling. She states thatshe left a VM for Dr. Garcia but wondering if there is anything that he could give her for the pain in the meantime. She is taking OTC tylenol and ibuprofen with little to no relief. Will message Dr. Garcia and reach back out to pt tomorrow for scheduling. documented in this encounter Plan of Treatment Not on file documented as of this encounter Visit Diagnoses Not on filedocumented in this encounter Care Teams Project Controls Specialist Relationship Specialty Start Date End Date Pierre Cisneros PA [address] [place] [address] PCP - General Internal Medicine 09/04/23 documented as of this encounter
--- OUTSIDE RECORDS SUMMARY | 2024-04-26 21:22 | XMS_ITS | Encounter Summary ---
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 Per Dr. Garcia's note -will start Xarelto 20mg po qday again this week. She should continue this for the procedure. Review with pt. Review TPAP date/time and procedure date/time/instructions with pt. She went on [employer] andlocated the letter sent with NC on the phone. She verified understanding of all instructions. documented in this encounter Plan of Treatment Not on file documented as of this encounter Visit Diagnoses Not on filedocumented in this encounter Care Teams Mobile Unit Assistant Relationship Specialty Start Date End Date Pierre Cisneros PA [facility] [place] [address] PCP - General Internal Medicine 09/04/23 documented as of this encounter
--- OUTSIDE RECORDS SUMMARY | 2024-04-26 21:22 | XMS_ITS | Encounter Summary ---
Author Organization [facility] Healthcare Address [address] [place] [address] Care Team Providers Care Heel Splitter Name Role Phone Pierre Cisneros Primary Care Provider + Encounter Details Date Type Department Care Team (Late st Contact Info) Description 11/18/2023 Telephone [facility] Radiology [address] [place] [address] Becky Mtz, RN Social History Tobacco Use [...] on file Legal Sex Female 7:09 AM WRAPPER OFF Gender Identity Female 10/24/2023 9:52 AM CDT Sexual Orientation Straight 10/24/2023 9: 52 AM CDT documented as of this encounter Miscellaneous Notes * Telephone Encounter - Becky Mtz RN - 11/18/2023 2:[address] Garcia: can you call her later this week to ask how she is doing, and setup a [address] abdomen/pelvis with iv contrast and telehealth visit with me? Numbness and swelling from the puncture site - expected from the procedure and she can apply warm compresses to assuage the bruising. Attempted to reach pt. No answer, LM asking for pt to call back. NC direct line given. documented in this encounter Plan of Treatment Not on file documented as of this encounter Visit Diagnoses Not on filedocumented in this encounter Care Teams Heel Splitter Relationship Specialty Start Date End Date Pierre Cisneros PA [address] [place] [address] PCP - General Internal Medicine 09/04/23 documented as of this encounter
--- OUTSIDE RECORDS SUMMARY | 2024-04-26 21:22 | XMS_ITS | Encounter Summary ---
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 NC direct line given. * Telephone Encounter - Becky Mtz RN - 11/20/2023 12:19 PM CDT documented in this encounter Plan of Treatment Not on file documented as of this encounter Visit Diagnoses Not on filedocumented in this encounter Care Teams Administrative Underwriter Relationship Specialty Start Date End Date Pierre Cisneros PA [address] [place] [address] PCP - General Internal Medicine 09/04/23 documented as of this encounter
--- OUTSIDE RECORDS SUMMARY | 2024-04-26 21:22 | XMS_ITS | Encounter Summary ---
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 Review pre- procedure letter information with pt. She is aware of TPAP date/time and also aware of procedure date/time and instructions. She is to continue xarelto per Dr. Garcia's note. She is very concerned about this and would prefer tonot be on blood thinners. NC stressed importance of following Dr. Garcia's instructions. She would prefer to make diet changes to thin her blood. Again, NC stressed importance of pt following the instructions given by Dr. Garcia. Can discuss her concerns with Dr. Garcia further after the procedure, also looks like he is planning to refer pt to stoker mechanic for consult post procedure. documented in this encounter Plan of Treatment Not on file documented as of this encounter Visit Diagnoses Not on filedocumented in this encounter Care Teams Pasting Inspector Relationship Specialty Start Date End Date Pierre Cisneros PA [address] [place] [id number] PCP - General Internal Medicine 09/04/23 documented as of this encounter
--- OUTSIDE RECORDS SUMMARY | 2024-04-26 21:22 | XMS_ITS | Encounter Summary ---
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 - 01/09/2024 9:44 PM CDT These images are for Reference purposes only and have not been reviewed by [facility] Radiology. ??There will be no report generated by a [facility] Radiologist. Narrative [facility] - 01/09/2024 9:44 PM CDT EXAMINATION: ??Images For Reference Purposes Only Umberto Garcia MD IMG CT PROCEDURES Final Result [facility] documented in this encounter Visit Diagnoses Not on filedocumented in this encounter Care Teams Industrial Engineering Relationship Specialty Start Date End Date Pierre Cisneros PA [address] [place] [address] PCP - General Internal Medicine 09/04/23 documented as of this encounter
--- OUTSIDE RECORDS SUMMARY | 2024-04-26 21:22 | XMS_ITS | Encounter Summary ---
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 She reports worsening left leg swelling, a knot sensation in her thigh and calf, in addition to some intermittent chest pain, currently resolved. 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 Discussed with Dr. Umberto Garcia. Patient was advised to present to an emergency room for evaluation of possible LLE DVT and PE. Patient was in agreement with this plan. documented in this encounter Plan of Treatment Not on file documented as of this encounter Visit Diagnoses Not on filedocumented in this encounter Care Teams Maintenance Technician 3Rd Shift Relationship Specialty Start Date End Date Pierre Cisneros PA [address] [place] [id number] PCP - General Internal Medicine 09/04/23 documented as of this encounter
--- OUTSIDE RECORDS SUMMARY | 2024-04-26 21:22 | XMS_ITS | Encounter Summary ---
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 Reviewed ABIDA note recommendations with pt. Stop Plavix due to heavy menstrual bleeding. Advised to follow up with dough mixer as persistent leg symptoms less likely attributableto venous disease given the stent patency and absence of DVT. Much of her symptoms of muscles cramping and pains throughout her body is seemingly more likely relate to a systemic process. She has already seen Rheumatology who plans to work her up with labs/imaging. Plan: - Stop Plavix for now given the heavier menstrual bleeding. Continue Xarelto at least until next clinic visit. Pt wondering about the racing heartbeat and chest pains that she has been having off and on for awhile. Encouraged pt to proceed to ED if having new chest pains/SOB. Also encouraged pt to call her PCP to discuss and see if further workup or trawl net maker referral is needed to determine cause of her ongoing symptoms. Pt agreeable. documented in this encounter Plan of Treatment Not on file documented as of this encounter Visit Diagnoses Not on filedocumented in this encounter Care Teams Instructor Looping Relationship Specialty Start Date End Date Pierre Cisneros PA [address] [place] [id number] PCP - General Internal Medicine 09/04/23 documented as of this encounter
--- OUTSIDE RECORDS SUMMARY | 2024-04-26 21:22 | XMS_ITS | Encounter Summary ---
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 Liv with Bed Placement has been contacted regarding acceptance of patient to 3500 for overnight observation. documented in this encounter Plan of Treatment Not on file documented as of this encounter Visit Diagnoses Not on filedocumented in this encounter Care Teams Plant Electrical Engineer Relationship Specialty Start Date End Date Pierre Cisneros PA [address] [place] [id number] PCP - General Internal Medicine 09/04/23 documented as of this encounter
--- OUTSIDE RECORDS SUMMARY | 2024-04-26 21:22 | XMS_ITS | Encounter Summary ---
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 Gender Identity Female 10/24/2023 9:52 AM CDT Sexual Orientation Straight 10/24/2023 9: 52 AM CDT documented as of this encounter Ordered Prescriptions Prescription Sig Dispense Quantity Refills Last Filled Start Date End Date clopidogreL (PLAVIX) 75 mg tablet Take 1 tablet (75 mg total) by mouth daily 30 tablet 1 12/19/2023 01/09/2024 documented in this encounter Plan of Treatment Not on file documented as of this encounter Visit Diagnoses Not on filedocumented in this encounter Discontinued Medications Medication Sig Discontinue Reason Start Date End Da te clopidogreL (PLAVIX) 75 mg tablet Take 1 tablet (75 mg total) by mouth daily Reorder 11/16/2023 12/19/2023 documented as of this encounter Care Teams Inspection And Testing Supervisor Relationship Specialty Start Date End Date Pierre Cisneros PA [address] [place] [id number] PCP - General Internal Medicine 09/04/23 documented as of this encounter
--- OUTSIDE RECORDS SUMMARY | 2024-04-26 21:22 | XMS_ITS | Encounter Summary ---
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 No answer, LM requesting a call back. [place] direct line given. documented in this encounter Plan of Treatment Not on file documented as of this encounter Visit Diagnoses Not on filedocumented in this encounter Care Teams Corporate Intern Relationship Specialty Start Date End Date Pierre Cisneros PA [address] [place] [address] PCP - General Internal Medicine 09/04/23 documented as of this encounter
--- OUTSIDE RECORDS SUMMARY | 2024-04-26 21:22 | XMS_ITS | Encounter Summary ---
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 Garcia: Pharmacy faxed over a refill request for clopidogrel 75mg, take one tab PO daily. (See scan in media) Looks like the plan was for possibly 3 months of plavix. Okay to give her 2 more months of the plavix? Per Dr. Garcia: Ok to refill. Erx'd clopidogrel 75mg, take one tab PO daily #30 with 1 refill. documented in this encounter Plan of Treatment Not on file documented as of this encounter Visit Diagnoses Not on filedocumented in this encounter Care Teams Shampoo Assistant Relationship Specialty Start Date End Date Pierre Cisneros PA [address] [place] [id number] PCP - General Internal Medicine 09/04/23 documented as of this encounter
--- OUTSIDE RECORDS SUMMARY | 2024-04-26 21:22 | XMS_ITS | Encounter Summary ---
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 Rizzo on 03/03 at 11:15am with labs followingat 12:15pm at the [facility]. Requested pt return call if she has any questions or is unable to keep her appt. CURER documented in this encounter Plan of Treatment Not on file documented as of this encounter Visit Diagnoses Not on filedocumented in this encounter Care Teams Franchise Sales Director Relationship Specialty Start Date End Date Pierre Cisneros PA [address] [place] [id number] PCP - General Internal Medicine 09/04/23 documented as of this encounter
--- OUTSIDE RECORDS SUMMARY | 2024-04-26 21:22 | XMS_ITS | Encounter Summary ---
Author Organization [facility] Address [address] [place] [address] Phone Care Team Providers Care Banquet Server On Call Name Role Phone Pierre Cisneros Primary Care Provider + Encounter Details Date Type Department Care Team (Late st Contact Info) Description 01/16/2024 Telephone [facility] Rheumatology [address] [facility] 5[address] [place] [address] [place] [id number] Chantel Zhang MD [address] [facility] [address] [place] [address] Social History Tobacco Use Types Packs/Day Years [...] on file 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
--- OUTSIDE RECORDS SUMMARY | 2024-04-26 21:22 | XMS_ITS | Encounter Summary ---
Author Organization [facility] Address [address] [place] [address] Phone Care Team Providers Care Financial Sales Consultant Name Role Phone Pierre Cisneros Primary Care Provider + Encounter Details Date Type Department Care Team (Late st Contact Info) Description 01/03/2024 8:15 AM CDT Office Visit [facility] Rhe[facility] [address] [facility] 5th [place] [address] [place] [address] Chantel Zhang MD [address] [facility] [address] [place] [address] Deep venous thrombosis (CMS/HCC) (HCC) (Primary Dx); May-Thurner syndrome; Positive antinuclear antibody Social History Tobacco Use Types Packs/Day Years [...] on file 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 Gender Identity Female 10/24/2023 9:52 AM CDT Sexual Orientation Straight 10/24/2023 9: 52 AM CDT documented as of this encounter Last Filed Vital Signs Vital Sign Reading Time Taken Comments Blood Pressure 100/69 01/03/2024 8:11 AM CDT Pulse 87 01/03/2024 8:11 AM CDT Temperature 36.6 ??C (97.9 ??F) 01/03/2024 8:11 AM CD T Respiratory Rate - - Oxygen Saturation - - Inhaled Oxygen Concentration - - Weight 64.2 kg (141 lb 8 oz) 01/03/2024 8:11 AM CDT Height 165.1 cm (5' 5 ) 01/03/2024 8:11 AM CDT Body Mass Index 23.55 01/03/2024 8:11 AM CDT documented in this encounter Patient Instructions * Patient Instructions* Chantel Zhang MD - 01/03/2024 8:15 AM CDT Thank you for visiting the Department of Rheumatology at the [facility] for [facility]. We are thrilled to be able to contribute to your care. As we discussed, our plan is as detailed below: - Complete lab work, will call with results If you have questions or concerns and need to reach our clinic, then please call [phone]. Chantel Zhang MD documented in this encounter Progress Notes * Chantel Zhang MD - 01/03/2024 8:15 AM CDT [facility] Division of Rheumatology This consult was requested by the doctor listed below for an opinion regarding the chief complaint listed below. Referring Physician: Pierre Cisneros PA [facility] [place] [address] Reason for the referral: Positive CIARRA SUBJECTIVE: CC: Positive CIARRA History of Present Illness: Sahra Parks is a 43 y.o. female with PMHx significant for May-Thurner syndrome related left leg DVT (possibly provoked by OCPs), hypothyroidism, migraines, seizure disorder and anxiety is evaluatedin the Rheumatology Clinic for positive CIARRA. History is somewhat limited by patient's being unable to memorize the details of the events. She noticed left lower extremity swelling last year and at that time she also noticed right arm pain and swelling. She was later diagnosed with May-Thurner syndrome with DVTs of the left lower extremity, but she states that her right arm was never examined at that time. Per chart review, she was hospitalized in 10/2023 for left iliac venogram and stenting angioplasty for May-Thurner syndrome. Patient complains of her skin (cheeks, arms) turned pale and purplish a few times over the past year She states that sometimes she did not even notice the rashes and the skin changes were pointed outby others. She was not able to describe to me the look of the skin changes. She also reports dry eyes and dry mouth. For dry eyes, she states that she feels gravel in eyes, and she may need to use eyedrops 3 times a day although she often forgets to use it. For dry mouth, she states that she drinks water frequently but she denies having to drink water in order to keep fooddown. She denies any pain or swelling of the cheeks or parotid glands. She mentions having lumps inthe axillary areas/lateral chest bilaterally. Additionally, she states that she hurts all over the neck/upper back, shoulders, wrists, hands, knees, and it is worse on the knees and also in the muscles. The stiffness may last throughout the day.She did not notice any joint redness / swelling / warmth. She also reports numbness and tingling over her fingers and feet. She also mentions poor sleep and feeling tired the entire day. She also reports history of miscarriages and complications with pregnancies. She states she has 6 pregnancies in total, 3 miscarriages ( loss at ~ 8 weeks x 2, chromosomal abnormalities x 1), pre-eclampsia at least with one and chorioangioma with one . Patient is being treated for hypothyroidism per PCP. Per patient, her TSH levels were never at goaland her levothyroxine dose was frequently adjusted over the past few years. Labs: 09/2022: CIARRA 1:160, nuclear, dense fine speckled. GOVIND negative. 09/2022: dsDNA negative 09/2022 LAC positive, b2GPI negative, anticardiolipin negative. 09/2022 factor 5, factor 2 mutation: negative. Protein S, protein C PMHx: Past Medical History: Diagnosis Date Cellulitis Cellulitis - (Added by TW Conv) Motion sickness PSHx: Past Surgical History: Procedure Laterality Date ANGIOPLASTY / STENTING FEMORAL Left 09/2022 LLE HERNIA REPAIR 2009 SINUS SURGERY 01/2023 She reports feeling safe at home and she denies any use of recreational drugs. FamHx: No family history on file. SocHx: Social History Tobacco Use Smoking status: Former Types: Cigarettes Smokeless tobacco: Never Substance and Sexual Activity Drug use: Never Sexual activity: Not on file Alcohol Use: Unknown (11/04/2023) AUDIT-C Frequency of Alcohol Consumption: Not on file Average Number of Drinks: Patient does not drink Frequency of Binge Drinking: Not on file MEDICATIONS: Current Outpatient Medications Medication Sig Dispense Refill ALPRAZolam (XANAX) 1 mg tablet Take 1 tablet (1 mg total) by mouth 3 (three) times a day as needed for anxiety cloNIDine (CATAPRES) 0.3 mg tablet Take 1 tablet (0.3 mg total) by mouth nightly Hold if systolic BP <110 clopidogreL (PLAVIX) 75 mg tablet Take 1 tablet (75 mg total) by mouth daily 30 tablet 1 dextroamphetamine-amphetamine XR (ADDERALL XR) 30 mg 24 [...] 1 tablet (175 mcg total) 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 (Patient taking differently: Take 1 tablet (175 mcg total) by mouth nightly) 30 tablet 0 lidocaine (ASPERCREME) 4 % adhesive patch,medicated Place 1 patch on the skin daily 20 patch 0 naltrexone (DEPADE) 50 mg tablet Take 1 tablet (50 mg total) by mouth nightly ondansetron ODT (ZOFRAN-ODT) 8 mg disintegrating tablet Take 1 tablet (8 mg total) by mouth every 8(eight) hours as needed for nausea 20 tablet 0 oxyCODONE (ROXICODONE) 5 mg immediate release tablet Take 1 tablet (5 mg total) by mouth every 4 (four) hours as needed for pain 10 tablet 0 pregabalin (LYRICA) 50 mg capsule Take 1 [...] tablet (300 mg total) by mouth nightly No current facility-administered medications for this visit. ALLERGIES: Allergies Allergen Reactions Morphine Swelling, Anaphylaxis and Unknown Throat swelling Latex Rash rash Sulfa (Sulfonamide Antibiotics) Nausea And Vomiting, Rash, Nausea only and Vomiting Ciprofloxacin Nausea only and Vomiting Reaction: Nausea, Vomiting, OBJECTIVE: Physical Examination: Vitals: BP 100/69 (BP Location: Left arm, Patient Position: Sitting) Pulse 87 Temp 36.6 ??C (97.9 ??F) (Oral) Ht 165.1 cm (5' 5 ) Wt 64.2 kg (141 lb 8 oz) BMI 23.55 kg/m?? General: appears anxious, alert. HEENT: EOMs intact grossly. No hair thinning. MMM, no oral/nasal ulcers Resp: No difficulty breathing, no audible wheezes or abnormal sounds Ext: No edema. No cyanosis or clubbing Neuro: Gait Normal. Moves all limbs independently Skin: No rash. No ulcers on exposed skin. Nailfold capillaroscopy within normal, no hemorrhage, dilated capillaries or loss of capillaries seen. Musculoskeletal: - No warmth, swelling, synovitis, or joint deformities in the fingers, hands, wrists, elbows, shoulders, knees, ankles. - Tenderness over paraspinal region of the neck and upper back, shoulders, muscles over forearm, thigh muscles. Tenderness of the left hip with external rotation, tenderness of the right hip with internal rotation. Investigations: Labs: Lab Results Component Value Date WBC 7.2 11/14/2023 HGB 11.4 (L) 11/14/2023 HCT 35.1 (L) 11/14/2023 MCV 87.1 11/14/2023 LABPLAT 303 11/14/2023 Lab Results Component Value Date AST 25 11/14/2023 ALT 16 11/14/2023 CREATININE 1.08 11/14/2023 Lipid panel: Lab Results Component Value Date CHOL 148 10/16/2022 HDL 49 10/16/2022 LDLCALC 71 10/16/2022 TRIG 139 10/16/2022 CHOLHDL 3 10/16/2022 CIARRA: Lab Results Component Value Date CIARRA Positive 1:160 10/16/2022 CIARRA 1:160 10/16/2022 Imaging: CT abdomen pelvis with contrast 09/2023 showed slightly worsened thrombus in the left common iliac vein stent with moderate luminal narrowing throughout. Thrombus extends to a proximal margin of the stent but does not extend into inferior vena cava. Left external iliac vein distal to the stent is patent and there is no evidence of thrombus in the right iliac veins. CT abdomen pelvis with contrast 09/2022 showed left femoral and iliac deep vein thrombosis. MRI brain with without contrast 09/2023 Very minimal T2/FLAIR hyperintensities, could be related to chronic migraines. No enhancing lesionsare seen. There is significant paranasal sinus disease ASSESSMENT/PLAN: The patient is a 43-year-old female with a history of May-Thurner syndrome- related left leg DVT (possibly provoked by oral contraceptive pills), hypothyroidism, migraines, seizure disorder, and anxiety, who was referred for a positive CIARRA test. While CIARRA positivity may be secondary to hypothyroidism, her constellation of symptoms, including changes in skin color, history of miscarriages, and complications with , as well as a previous positive APLS test for lupus anticoagulant, raises concern for an underlying thrombophilia, such as antiphospholipid syndrome. Additionally, her reported dry eyes and dry mouth, though potentially related to hypothyroidism, necessitate further evaluation for conditions like Sjogren's syndrome. - Order APLS panel, CIARRA, GOVIND, ESR, CRP, C3, C4, RF, CCP-Ab. - While generalized pain and fatigue may be related to hypothyroidism or fibromyalgia, numbness andtingling of the hands and feet is not typical of fibromyalgia; please consider further workup including but not limited to C spine and L spine MRI, NCV/EMG through her primary care provider. - The patient has significant difficulty memorizing details of events during the encounter. Please consider memory testing and neuropsychiatric assessment through her primary care provider to evaluate other possibilities. - Will call with the results //Health Maintenance Immunization History Administered Date(s) Administered HPV, Unspecified 10/02/2006, 01/21/2007, 05/07/2007, 02/28/2009 Influenza, Unspecified 01/16/2011 Pfizer SARS-CoV-2 Monovalent Vaccination (12+ Yrs) PURPLE 12/13/2020, 05/06/2021 Tdap 04/22/2009 Patient seen and discussed with Dr. Romario Zhang MD Clinical Fellow [facility], Division of Rheumatology Cosigned by Nisha Chanel MD at 01/14/2024 10:34 AM CDT Associated attestation - Nisha Chanel MD - 01/14/2024 10:34 AM CDT I have seen and examined the patient. I agree with the findings and plan of care as documented in the resident/fellow's note. My total encounter time on 01/03/2024 was 20 minutes which was spent in the activities documented in the note. This includes time spent prior to the visit and after the visitin direct care of the patient. This time does not include time spent in any separately reportable services. documented in this encounter Miscellaneous Notes * Addendum Note - Nisha Chanel MD - 01/03/2024 8:15 AM CDT Addended by: NISHA CHANEL on: 01/14/2024 10:34 AM Modules accepted: Level of Service * Addendum Note - Isiaas Deleon - 01/03/2024 8:15 AM CDTAddended by: ISAIAS DELEON on: 01/21/2024 09:54 AM Modules accepted: Orders documented in this encounter Plan of Treatment Not on file documented as of this encounter Results * GOVIND ab eval w/reflex (01/21/2024 9:00 AM CDT) GOVIND ab Negative Negative Comment: Interpretive Data Positive Screens will be reflexed to specific testing for Antibodies against the following antigens: Victoria-1 Ab, SUPERVISOR STAVE CUTTING Ab, Scl-70 Ab, Haywood Ab, SS-A/Ro Ab, and SS- B/La Ab. Further testing for dsDNA, Centromere, or Ribosomal P antibodies is suggested in patient with a positive screen and negative specific antibodies. Current interpretive data was last revised on 2022. Testing performed by: [facility], [address] [place]., [address] Blood 01/21/2024 9:00 AM CDT 01/22/2024 10:01 AM CDT us Chantel Zhang MD LAB BLOOD ORDERABLES Final Resul t TEZ [address] [address] Department [place] [address] * CIARRA ab ql w/rflx to CIARRA [...] last revised on 2019. Testing performed by: [facility], [address] [facility], [place]., [address] Blood 01/21/2024 9:00 AM CDT 01/22/2024 10:02 AM CDT us Chantel Zhang MD LAB BLOOD ORDERABLES Final Resul t Performing Organization Address [facility] Co de Phone Number [facility] [place] 2[facility] [address] [address] [facility] [place] [address] * C3 complement (01/21/2024 9:00 AM CDT) Complement C3 131 90 - 180 mg/dL Blood 01/21/2024 9:00 AM CDT 01/21/2024 3:46 PM CDT us Chantel Zhang MD LAB BLOOD ORDERABLES Final Resul t Performing Organization Address [facility] Co de Phone Number [facility] [address] [address] [facility] [place] [address] * C4 complement (01/21/2024 9:00 AM CDT) Complement C4 21 10 - 40 mg/dL Blood 01/21/2024 9:00 AM CDT 01/21/2024 3:46 PM CDT us Chantel Zhang MD LAB BLOOD ORDERABLES Final Resul t Performing Organization Address [facility] Co de Phone Number [facility] [address] [address] [facility] [address] [place] [address] * Beta 2 glycoprotein IgG Ab (01/21/2024 9:00 AM CDT) Beta-2 glycoprotein I, IgG <1.4 <=19.9 units/mL Comment: Interpretive Data Negative: <20 U/mL Positive: > or = 20 U/mL ? Beta-2 glycoprotein 1 (Beta-2 GP1) antibodies are a more specific marker of thrombotic risk. It is expected that some samples will be ACL positive and Beta- 2 [id number]. In order to improve specificity, the International Congress on Antiphospholipid Antibodies recommends Beta-2 GP1 antibodies of IgG or IgM isotype ??(> the 99th percentile), obtained twice, at least 12 weeks apart, to support a diagnosis of antiphospholipid syndrome. The cutoff for this assay was developed from data based on the 99th percentile. These results were obtained with the [employer] System. Beta 2GP1 IgG values obtained with different manufacturers' assay methods may not be used interchangeably. Current interpretive data was last revised on 2016. Testing performed by: [facility], [address] [place] [address]., [address] Blood 01/21/2024 9:00 AM CDT 01/22/2024 10:13 AM CDT us Chantel Zhang MD LAB BLOOD ORDERABLES Final Resul t TEZ [address] [address] Department [place] [address] * Beta 2 glycoprotein IgM Ab (01/21/2024 9:00 AM CDT) [facility] Beta-2 glycoprotein I, IgM 0.4 <=19.9 units/mL [...] factor. ??These results were obtained with the [employer] 2200 System. Beta-2 GP1 IgM values obtained with different manufacturers' assay methods may not be used interchangeably. Current interpretive data was last revised on 2016. Testing performed by: [facility], [address] [place] [address]., [address] Blood 01/21/2024 9:00 AM CDT 01/22/2024 10:13 AM CDT us Chantel Zhang MD LAB BLOOD ORDERABLES Final Resul t TEZ [address] [address] Department [place] [address] * Cardiolipin antibody, IgG (01/21/2024 9:00 AM [...] ANTHONY. These results were obtained with the [employer] 2200 System. Cardiolipin IgG values obtained with different manufacturers' assay methods may not be used interchangeably. Current interpretive data was last revised on 2016. Testing performed by: [facility], [address] [place] [address]., [address] Blood 01/21/2024 9:00 AM CDT 01/22/2024 10:13 AM CDT us Chantel Zhang MD LAB BLOOD ORDERABLES Final Resul t TEZ [address] [facility] Department [place] [address] * Cardiolipin antibody, IgM (01/21/2024 [...] antibodies. ??These results were obtained with the [employer] 2200 System. Cardiolipin IgM values obtained with different manufacturers' assay methods may not be used interchangeably. Current interpretive data was last revised on 2016. Testing performed by: [facility], [address] [facility], [place]., [address] Blood 01/21/2024 9:00 AM CDT 01/22/2024 10:13 AM CDT us Chantel Zhang MD LAB BLOOD ORDERABLES Final Resul t TEZ [address] [address] Department [place] [address] * Lupus Anticoagulant Panel plus Reflexes (01/21/2024 9:00 AM CDT) PT See Comment 9.7 - 13.0 sec Comment: Credited, due to interfering anticoagulants. Testing performed by: [facility], [address] [place]., [address] INR See Comment 0.90 - 1.20 TEZ PARISI Comment: Credited, due to interfering anticoagulants. Interpretive data Oral anticoagulant therapeutic ranges: Venous thromboembolism prophylaxis or treatment: 2.0-3.0 CARDIOLOGY Standard range: 2.0-3.0 High-intensity range: 2.5-3.5 Refer to indication-specific guidelines for appropriate target ranges for prosthetic heart valve replacement. Current interpretive data was last revised on 2019. Testing performed by: [facility], [address] [place]., [address] aPTT See Comment 28 - 38 sec TEZ PARISI Comment: Credited, due to interfering anticoagulants. Interpretive Data Heparin therapeutic range: 66.0 - 100.0 seconds. Range based on correlation with therapeutic heparin activity range of 0.3 - 0.7 Units/mL. Current interpretive data was last revised on 2023. Testing performed by: [facility], [address] [place]., [address] DRVVT screen ratio See Comment 0.00 - 1.20 Ratio TEZ Comment: Credited, due to interfering anticoagulants. Testing performed by: [facility], [address] [place]., [address] SCT Screen Ratio See Comment 0.00 - 1.16 Ratio TEZ Comment: Credited, due to interfering anticoagulants. Testing performed by: [facility], [address] [place]., [address] Lupus anticoagulant, interp See Comment TEZ PARISI Comment: Credited, due to interfering anticoagulants. Interpretive [...] repeat testing at least 12 weeks later (Ellen, 2006). ?? Prior to LA testing, the laboratory screens patient plasma samples for evidence of heparin contamination, which is neutralized prior to LA testing, and the following interfering conditions which require canceling LA testing: INR >3.0, fibrinogen < 100 mg/dl, use of direct oral or IV anticoagulants other than heparin. ?? References: 1) Erik V, Gypsy A, Lavelle JH, Ordiana TL, Jhonny M, De Andres PG. Update of the guidelines for lupus anticoagulant detection. J Thromb Haemost. 2009; 7:7899-5205. 2. Ellen S. et al. International consensus statement on an update of the classification criteria for definite antiphospholipid syndrome (APS). J Thromb Haemost. 2006; 4:295-306. Current interpretive data was last revised on 2018 Testing performed by: [facility], [address] [facility] [place]., [address] Blood 01/21/2024 9:00 AM CDT 01/22/2024 9:59 AM CDT us Chantel Zhang MD LAB BLOOD ORDERABLES Final Resul t Performing Organization Address [facility] Co de Phone Number TEZ PARISI [address] [address] Department [facility] [place] [address] * Rheumatoid factor (01/21/2024 9:00 AM CDT) Rheumatoid factor, quant <10 <=15 IUnits/mL Blood 01/21/2024 9:00 AM CDT 01/21/2024 3:46 PM CDT us Chantel Zhang MD LAB BLOOD ORDERABLES Final Resul t Performing Organization Address [facility] de Phone Number TEZ PARISI [address] [address] Department of [facility] [place] [address] * Cyclic citrul peptide antibody, IgG (01/21/2024 9:00 AM CDT) CCP Ab <0.5 <=2.9 units/mL Comment: Interpretive data Negative: <3 units/mL Positive: > or equal to 3 units/mL Current interpretive data was last revised on 2016. Testing performed by: [facility], [address] [place]., [address] Blood 01/21/2024 9:00 AM CDT 01/22/2024 10:13 AM CDT us Chantel Zhang MD LAB BLOOD ORDERABLES Final Resul t Performing Organization Address [facility] Co de Phone Number TEZ PARISI [address] [address] Department [facility] [place], [place] [id number] documented in this encounter Visit Diagnoses Diagnosis Deep venous thrombosis (CMS/HCC) (HCC)- Primary Acute venous embolism and thrombosis of unspecified deep vessels of lower extremity May-Thurner syndrome Compression of vein Positive antinuclear antibody documented in this encounter Historical Medications * This list may reflect changes made after this encounter. levoFLOXacin (LEVAQUIN) 750 mg tablet Take by mouth daily For ten days levothyroxine (SYNTHROID) 150 mcg tablet Take 1 tablet (150 mcg total) by mouth daily 12/10/2023 topiramate (TOPAMAX) 100 mg tablet Take 1 tablet (100 mg total) by mouth 2 (two) times a day 11/11/2023 solifenacin (VESIcare) 10 mg tablet Take 1 tablet (10 mg total) by mouth daily nortriptyline (PAMELOR) 10 mg capsule Take 1 capsule every day by oral route at bedtime for 30 days. Linzess 145 mcg capsule Take 1 tablet by mouth daily clonidine HCl/chlorthalidon e (CLONIDINE-CHLORT HALIDONE ORAL) 10/31/2023 cetirizine (ZyrTEC) 10 mg tablet Take 1 tablet (10 mg total) by mouth daily 12/31/2023 added in this encounter Care Teams Financial Sales Consultant Relationship Specialty Start Date End Date Pierre Cisneros PA [address] [place] [id number] PCP - General Internal Medicine 09/04/23 documented as of this encounter
--- OUTSIDE RECORDS SUMMARY | 2024-04-26 21:22 | XMS_ITS | Encounter Summary ---
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 Garcia. This patient called me this afternoon asking whether or not you think a vibration plate could help with the blood flow in her legs. I mentioned to her that she has a CT tomorrow and a follow up telehealth visit on next and she can bring it up to you during that visit. She insisted that I inform you ahead of time in case you were unfamiliar with thisproduct so you could give her an answer about the plate during her telehealth visit. 01/05/[address] Garcia: I had sent an email to you earlier today about our patient with left thigh swelling. Not sure what to make of it, since her CT shows her left iliac stent is wide open. Hoping you can reach out to her ahead of my clinic appt to her to check on how she is doing? I am uncertain of the benefits of a vibration plate with blood flow. I think in general being active is good for blood flow - walking or jogging for 30 minutes 3 times a week. But there isn't anything scientific that is said about vibration plates. JESS attempted to reach pt to check in. No answer, LM requesting a call back with update. JESS direct line given. documented in this encounter Plan of Treatment Not on file documented as of this encounter Visit Diagnoses Not on filedocumented in this encounter Care Teams Journalism Instructor Relationship Specialty Start Date End Date Pierre Cisneros PA [address] [place] [id number] PCP - General Internal Medicine 09/04/23 documented as of this encounter
--- OUTSIDE RECORDS SUMMARY | 2024-04-26 21:22 | XMS_ITS | Encounter Summary ---
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 Garcia: This patient is planned for her venogram this . She lives alone, is planning to drive herself, meaning she cannot drive back home the same day. The [facility] nurse did his preop call with her to tell me this. Can we set her up for a same day admit? And can you call her to confirm she is okay with this? Attempted to reach pt to discuss, no answer, LM asking her to call back. NC direct line given. [phone]- pt called back. She is agreeable for admission. Orders placed. * Telephone Encounter - Becky Mtz RN - 11/12/2023 9:57 AM CDT documented in this encounter Plan of Treatment Not on file documented as of this encounter Visit Diagnoses Not on filedocumented in this encounter Care Teams Senior It Business Analyst Relationship Specialty Start Date End Date Pierre Cisneros PA [address] [place] [id number] PCP - General Internal Medicine 09/04/23 documented as of this encounter
--- OUTSIDE RECORDS SUMMARY | 2024-04-26 21:22 | XMS_ITS | Encounter Summary ---
Author Organization [facility] Healthcare Address [address] [place] [address] Care Team Providers Care Work Ticket Distributor Name Role Phone Pierre Cisneros Primary Care Provider + Encounter Details Date Type Department Care Team (Late st Contact Info) Description 11/20/[address] 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 LM to call back. [place] direct line given. documented in this encounter Plan of Treatment Not on file documented as of this encounter Visit Diagnoses Not on filedocumented in this encounter Care Teams Work Ticket Distributor Relationship Specialty Start Date End Date Pierre Cisneros PA [address] [place] [id number] PCP - General Internal Medicine 09/04/23 documented as of this encounter
--- OUTSIDE RECORDS SUMMARY | 2024-04-26 21:22 | XMS_ITS | Encounter Summary ---
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 Advised that Dr. Garcia would recommend she reach out to PCP regarding pain medication. Pt agreeable to tentatively schedule pelvic venogram with left common iliac vein stenting on 11/14/23. She also reports that she stopped wearing her compression stockings approximately 6 months ago. Sheput them on yesterday after speaking with Dr. Garcia. This cause her pain to intensify significantly.She is having trouble sleeping because of the pain. She is willing to try anything to help alleviate the pain. Wonders if she can wait to start wearing the compression stocking again until after procedure. Would also prefer procedure at sooner date. Explained that I would reach out to Dr. Garcia regarding her concerns. For now, will schedule for the next available to reserve the time and will move if able to work into the schedule sooner. Per Dr. Garcia's request, patient has been scheduled for pelvic venogram with left common iliac vein stent placement. She is scheduled for 11/14/23 at 1130 at the [facility] with a 0930 arrival. She is to remain NPO after midnight prior to procedure and will need a sulky driver. She is to continue xarelto. Letter will be sent to [employer]. Direct contact information given if any questions or concerns wereto come up. IR GENERAL PRE-PROCEDURE SCREENING Risk Level of Procedure: high Procedure: pelvic venogram with left common iliac vein stent placement Date of Procedure if scheduled: 11/14/23 Arrival Time: 0930 Location of procedure:[facility] Indication for Procedure: May-thurner/DVT IR Attending:Radha Insurance carrier verified? Yes Appt info letter sent: Yes, will be sent via [employer] ALLERGIES: Allergies Allergen Reactions Morphine Swelling, Anaphylaxis and Unknown Throat swelling Sulfa (Sulfonamide Antibiotics) Nausea And Vomiting, Rash, Vomiting and Nausea only Reaction: Vomiting, Ciprofloxacin Nausea only and Vomiting Reaction: Nausea, Vomiting, Latex Unknown rash Magnesium Salicylate Unknown Patient stated that after administration she felt like she was having an anxiety attack and got very overheated Infection Flag: Does the patient have any of the following medical conditions? Sedation: Previous problems with anesthesia or sedation? No Cardiovascular/Respiratory: None Lung: None Renal/Liver/GI: None Bleeding/Clotting: May-thurner/DVT Most recent coag results: PLT= PT/INR= PTT= Date of redraw (if applicable): CBC, BMP INR to be drawn DOS Medications: * * * For blood thinners/antiplatelet agents, REVIEW MED REC AND LIST THEM APPROPRIATE * * * Blood thinners: Rivaroxaban (Xarelto) to continue for procedure per Dr. Garcia Patient & Procedure Risk Assessment Next level assessment required: TPAP documented in this encounter Plan of Treatment Not on file documented as of this encounter Visit Diagnoses Not on filedocumented in this encounter Care Teams Hospital Cleaner Relationship Specialty Start Date End Date Pierre Cisneros PA [address] [place] [id number] PCP - General Internal Medicine 09/04/23 documented as of this encounter
--- OUTSIDE RECORDS SUMMARY | 2024-04-26 21:22 | XMS_ITS | Referral Summary ---
Author Organization [facility] Address [address] [place] [address] Care Team Providers Care Folder And Notcher Name Role Phone Pierre Cisneros Primary Care Provider + Encounters Date Type Department Care Team Description 03/11/2024 Telephone [facility] Radiology [address] [place] [address] Becky Mtz, RN 03/09/2024 Telephone [facility] Radiology [address] [place] [address] Becky Mtz, RN 03/03/2024 12:30 PM SUPPORT DIRECTOR Lab [facility] - Lab Collection [address] [place] [address] Anemia, unspecified type; H/O menorrhagia 03/03/2024 12:15 PM SUPPORT DIRECTOR Lab [facility] Oncology Lab [address] [place] [phone] 03/03/2024 11:15 AM SUPPORT DIRECTOR Office Visit [facility] Hematology [address] [place] [phone] Anna Rizzo MD Anemia due to other cause, not classified (Primary Dx); VTE (venous thromboembolism); May-Thurner syndrome; Iron deficiency anemia, unspecified iron deficiency anemia type; Menorrhagia with regular cycle; Blood coagulation disorder (CMS/HCC) (HCC); Coagulation defect (CMS/HCC) (HCC); Anemia, unspecified type; H/O menorrhagia 02/25/2024 Telephone [facility] Hematology [address] [facility] [address] [place] [address] Chay Chacha from Last 3 Months Allergies Active Allergy Reactions Criticality Noted Date Comments Ciprofloxacin Nausea only,Vomiting Reaction: Nausea, Vomiting, Latex Rash Medium 01/12/2011 rash Morphine Swelling,Anaphylaxis ,Unknown High 07/06/2010 Throat swelling Sulfa (Sulfonamide Antibiotics) Nausea And Vomiting,Rash,Nausea only,Vomiting Medium 07/06/2010 Medications levothyroxine (SYNTHROID) 175 mcg tablet Take 1 tablet (175 mcg total) by mouth environmental emergencies assistant before breakfast 30 tablet 10/20/19 23 Active [...] nightly Hold if systolic BP <110 11/15/19 Active lidocaine (ASPERCREME) 4 % adhesive patch,medicated Place 1 patch on the skin daily 20 patch 11/15/19 Active Additional Information Patient not taking.Reported on 03/03/2024 oxyCODONE (ROXICODONE) 5 mg immediate release tabletIndications: Pain Take 1 tablet (5 mg total) by mouth every 4 (four) hours as needed for pain 10 tablet 11/15/19 24 Active cetirizine (ZyrTEC) 10 mg tablet Take 1 tablet (10 mg total) by mouth daily 12/31/19 24 Active clonidine HCl/chlorthalidone (CLONIDINE-CHLORTH ALIDONE ORAL) 10/31/19 Active Linzess 145 mcg capsule Take 1 [...] (150 mcg total) by mouth daily 12/10/19 24 Active levoFLOXacin (LEVAQUIN) 750 mg tablet Take by mouth daily For ten days Active cyclobenzaprine (FLEXERIL) 10 mg tablet Take 1 tablet (10 mg total) by mouth nightly at bedtime 02/11/20 24 Active gabapentin (NEURONTIN) 100 mg capsule TAKE 1 CAPSULE BY MOUTH EVERY DAY AT BEDTIME FOR SLEEP OR ANXIETY 01/31/20 24 Active rivaroxaban (XARELTO) 20 mg tablet Take 1 tablet (20 mg total) by mouth daily with breakfast 30 tablet 3 03/11/20 24 Active Active Problems Problem Noted Date Diagnosed Date May-Thurner syndrome 11/14/2023 Assessment & Plan (11/15/2023 1:26 PM CDT): S/p left iliac venogram, right iliac venogram and left common iliac artery stenting with Interventional Radiology She tolerated the procedure She was started on Plavix + xarelto by IR Arthralgia of both knees 09/30/2023 Loss of hair 09/30/2023 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 ([facility]) 08/15/2023 Dysuria 08/14/2023 Positive antinuclear antibody 05/29/2023 COVID-19 04/03/2023 Chronic abdominal pain 02/25/2023 Seborrheic dermatitis of scalp 02/25/2023 Seizure disorder ([facility]) 02/25/2023 Assessment & Plan (11/14/2023 [...] 11/26/2022 Nausea 11/19/2022 Deep vein thrombosis (DVT) ([facility]) 11/16/2022 Chronic ethmoidal sinusitis 11/15/2022 Chronic [...] history of suicidal behavior 06/13/2022 Paranoid schizophrenia ([facility]) 06/13/2022 Moderate protein-calorie malnutrition ([facility]) 06/13/2022 Hypothyroidism, unspecified 06/13/2022 Other asthma [...] more with activity. Has braces. Seizure disorder ([facility]) 09/14/2010 Overview (11/01/2020): Questionable history; reports that [...] with Dr. Alejandro, D&C done at [facility]; the other due to low hormone so is on hormone pills now ?progesterone) 1 TAB (took pills) Received records from Dr. Alejandro from 11/1999. U/S revealed gestational sac without pole. D&C pathology revealed immature chorionic villi and decidua. No record of chromosomal studies received from any [facility]. Status post umbilical hernia repair, follow-up e xam 07/06/2010 Overview (11/01/2020): With mesh Dr. Flynn at [place] Tobacco use disorder complic ating , childbirth, or the puerperium 07/06/2010 Anxiety 06/22/2010 Overview (11/01/2020): And neurosis; patient denies current symptoms. No medications GBS (group B streptococcus) UTI complicating pre gnancy 06/22/2010 Hypothyroid 06/22/2010 Overview (11/01/2020): Component Name 01/11/11 1230 11/30/10 1030 11/08/10 1345 T4FREE 1.11 1.22 1.15 Component Name 01/11/11 1230 11/30/10 1030 07/20/11 1345 TSH 1.59 1.90 3.01 Continue synthroid 125mcg daily History of delivery, currently 06/22/2010 Overview (11/01/2020): 36wk spontaneous PTD 33wk induction due to superimposed severe Pre-E Lupus (systemic lupus erythematosus) (CMS/HCC) 0 06/22/2010 Overview (11/01/2020): ?questionable. Pt states [...] Gc/Chl: negative GCT: 76 GBS: uria in Fe Malignant neoplasm of cervix (CMS/HCC) 04/21/199 7 Immunizations Name Administration Dates Next Due HPV, Unspecified 02/28/2009,05/07/2007, 7,10/02/2006 Influenza, Unspecified 01/16/2011 PPD TEST 07/25/2022 Tdap 04/22/2009 Social History Tobacco Use Types Packs/Day [...] on file Legal Sex Female 7:09 AM SUPPORT DIRECTOR Gender Identity Female 10/24/2023 9:52 AM CDT Sexual Orientation Straight 10/24/2023 9: 52 AM CDT Last Filed Vital Signs Vital Sign Reading Time Taken Comments Blood Pressure 116/77 03/03/2024 11:14 AM SUPPORT DIRECTOR Pulse 108 03/03/2024 11:14 AM SUPPORT DIRECTOR Temperature 35.9 ??C (96.7 ??F) 03/03/2024 11:[address] Respiratory Rate 18 03/03/2024 11:14 AM SUPPORT DIRECTOR Oxygen Saturation 100% 03/03/2024 11:14 AM SUPPORT DIRECTOR Inhaled Oxygen Concentration - - Weight 62.3 kg (137 lb 6.4 oz) 03/03/2024 11:14 AM SUPPORT DIRECTOR Height 165.1 cm (5' 5 ) 01/03/2024 8:11 AM CDT Body Mass Index 22.86 01/03/2024 8:11 AM CDT Plan of Treatment Not on file Medical Devices Implanted Type Area Diesel Service Apprentice Device Identifier Shelf Expiration Date Model / Serial / Lot [employer] Abre 16mm 100mm Self Expand Rotate Thumbwheel Hemostatic Valve [id number] - [id number] Implanted:Qty: 1 on 10/15/2022 at [facility] [employer] 10/30/2024 [id number] / / [id number] [employer] Abre 12mm 120mm Self Expand Rotate Thumbwheel Hemostatic Valve [id number] - [id number] Implanted:Qty: 1 on 11/14/2023 at [facility] [employer] 01/16/2025 [id number] / / [id number] Procedures Procedure Name Priority Date/Time Associated Diagnosis Comments DIFFERENTIAL AUTO Routine 03/03/2024 12: 24 PM SUPPORT DIRECTOR Anemia, unspecified type H/O menorrhagia CBC WITH AUTO DIFFERENTIAL Routine 03/03/2024 12:24 PM SUPPORT DIRECTOR Anemia, unspecified type H/O menorrhagia FERRITIN Routine 03/03/2024 12:24 PM SUPPORT DIRECTOR Anemia, unspecified type H/O menorrhagia RETICULOCYTES Routine 03/03/2024 12:24 PM SUPPORT DIRECTOR Anemia, unspecified type H/O menorrhagia IRON PROFILE W/ IBC Routine 03/03/2024 1 2:24 PM SUPPORT DIRECTOR Anemia, unspecified type H/O menorrhagia PAP AND HIGH RISK HPV, REFLEX TO GENOTYPING Routine 10/17/2022 4:58 PM CDT from Last 3 Months or Most Recently Relevant to Health Maintenance Results * Differential, auto (03/03/2024 12:24 PM SUPPORT DIRECTOR) Neutrophil abs 4.3 1.5 - 6.5 K/cumm Comment:Testing performed by : [facility], [address] [place] [phone] Lymphocyte abs 2.6 0.8 - 3.3 K/cumm [facility] Comment:Testing performed by : [facility], [address] [place] [phone] Monocyte abs 0.5 0.2 - 0.8 K/cumm [facility] Comment:Testing performed by : [facility], [address] [place] [phone] Eosinophil abs 0.2 0.0 - 0.5 K/cumm [facility] Comment:Testing performed by : [facility], [address] [place] [phone] Basophil abs 0.1 0.0 - 0.1 K/cumm [facility] Comment:Testing performed by : [facility], [address] [place] [phone] Neutrophil pct 56.3 % [facility] Comment: Interpretive Data Percent cell count reference ranges are not reported, since discordance with absolute values may lead to misinterpretation of CBC data. Current Interpretive Data was last revised on 2017. Testing performed by: [facility], [address] [place] [phone] Lymphocyte pct 33.7 % [facility] Comment: Interpretive Data Percent cell count reference ranges are not reported, since discordance with absolute values may lead to misinterpretation of CBC data. Current Interpretive Data was last revised on 2017. Testing performed by: [facility], [address] [place] [phone] Monocyte pct 6.4 % [facility] Comment: Interpretive Data Percent cell count reference ranges are not reported, since discordance with absolute values may lead to misinterpretation of CBC data. Current Interpretive Data was last revised on 2017. Testing performed by: [facility], [address] [place] [phone] Eosinophil pct 2.9 % [facility] Comment: Interpretive Data Percent cell count reference ranges are not reported, since discordance with absolute values may lead to misinterpretation of CBC data. Current Interpretive Data was last revised on 2017. Testing performed by: [facility], [address] [place] [phone] Basophil pct 0.7 % [facility] Comment: Interpretive Data Percent cell count reference ranges are not reported, since discordance with absolute values may lead to misinterpretation of CBC data. Current Interpretive Data was last revised on 2017. Testing performed by: [facility], [address] [place] [phone] Blood 03/03/2024 12:2 4 PM SUPPORT DIRECTOR 03/03/2024 12:45 PM SUPPORT DIRECTOR Anna Rizzo MD LAB BLOOD ORDERABLES Final Result [facility] [place] [address] * (ABNORMAL) Iron profile w/ IBC (03/03/2024 12:24 PM SUPPORT DIRECTOR) Iron 29(L) 35 - 145 mcg/dL TIBC 368 250 - 400 mcg/dL [facility] Transferrin saturation 8(L) 20 - 50 % [facility] Blood 03/03/2024 12:2 4 PM SUPPORT DIRECTOR 03/03/2024 12:48 PM SUPPORT DIRECTOR Anna Rizzo MD LAB BLOOD ORDERABLES Final Result Performing Organization Address City/[facility]/ZIP Co de Phone Number [facility] [place] [address] * (ABNORMAL) CBC with auto differential (03/03/2024 12:24 PM SUPPORT DIRECTOR) WBC 7.6 3.8 - 9.9 K/cumm Comment:Testing performed by : [facility], [address] [place] [phone] Hgb 10.7(L) 11.9 - 15.5 g/dL [facility] Comment:Testing performed by : [facility], [address] [place] [phone] Hct 33.8(L) 35.6 - 45.5 % [facility] Comment:Testing performed by : [facility], [address] [place], [place] [phone] Plt 538(H) 150 - 400 K/cumm [facility] Comment:Testing performed by : [facility], [address] [place], [place] [phone] MPV 7.5 6.8 - 10.4 fL [facility] Comment:Testing performed by : [facility], [address] [place], [place] [phone] RBC 4.25 3.90 - 5.20 M/cumm C[facility]ER [facility]J Comment:Testing performed by : [facility], [address] [place], [place] [phone] MCV 79.6(L) 81.3 - 96.4 fL [facility] Comment:Testing performed by : [facility], [address] [place], [place] [phone] MCH 25.1(L) 27.1 - 33.3 pg [facility] Comment:Testing performed by : [facility], [address] [place] [address] MCHC 31.5(L) 32.3 - 35.7 g/dL [facility] Comment:Testing performed by : [facility], [address] [place], [place] [phone] RDW CV 14.8 11.1 - 14.9 % [facility] Comment:Testing performed by : [facility], [address] [place], [place] [phone] NRBC abs 0.00 0.00 - 0.01 K/cumm CERNOR[facility] Comment:Testing performed by : [facility], [address] [place], [place] [phone] Blood 03/03/2024 12:2 4 PM SUPPORT DIRECTOR 03/03/2024 12:45 PM SUPPORT DIRECTOR us Anna Rizzo MD LAB BLOOD ORDERABLES Final Result [facility] [place] [address] * Reticulocyte Count (03/03/2024 12:24 PM SUPPORT DIRECTOR) Retics, absolute 0.052 0.020 - 0.100 M/cumm Comment:Testing performed by : [facility], [address] [place] [phone] Retics 1.2 0.5 - 1.8 % [facility] Comment:Testing performed by : [facility], [address] [place] [phone] Blood 03/03/2024 12:2 4 PM SUPPORT DIRECTOR 03/03/2024 12:45 PM SUPPORT DIRECTOR Anna Rizzo MD LAB BLOOD ORDERABLES Final Result Performing Organization Address [facility] de Phone Number [facility] [place] [address] * Ferritin (03/03/2024 12:24 PM SUPPORT DIRECTOR) Pathologist [facility] Ferritin 19 13 - 150 ng/mL Blood 03/03/2024 12:2 4 PM SUPPORT DIRECTOR 03/03/2024 12:48 PM SUPPORT DIRECTOR Anna Rizzo MD LAB BLOOD ORDERABLES Final Result Performing Organization Address [facility] Co de Phone Number [facility] [place] [address] * Pap and High Risk HPV, reflex to Genotyping (10/17/2022 4:58 PM CDT) Thin prep (Pap test) 10/17/2022 4:58 PM CDT 10/17/2022 6:01 PM CDT Narrative PATHOLOGY [facility] - 10/25/2022 2:38 PM CDT EPIC results best viewed via link to PDF [facility] Alisa More[facility] [place] [address] Note to Patients: This report may contain [...] details. CYTOPATHOLOGY REPORT FINAL Patient Name: ??LUCIE PARKS Gender: ??F : ??1980 (Age: 42) Address: ??[place] [address] ??[address] Hospital #: ??[id number] Service: ??Medical Location: ??[facility] 0144 Patient Type: ??[facility] Inpatient Taken: ??10/17/2022 Received: ??10/17/2022 [...] 68. ??This HPV test was performed at [facility] in [place], [place] utilizing the Gen-Probe Aptima assay. This specimen has been rescreened in accordance with this laboratory's Outside Sales Representative Insurance Program. /10/25/2022 14:38 Weiying Lilia, CT(ASCP) Report Electronically Reviewed and Signed Out By Lauren Whitney MS, CT (ASCP) 10/25/2022 14:38:18 Cervicovaginal Cytology (Pap Test) Disclaimer: The Pap test is a screening test used to detect cervical cancer and its precursors; it is not a diagnostic procedure. False negative and false positive results do occur. Pap test results should be interpreted in the context of pertinent clinical information and biopsy results as indicated. [facility] Clinical Laboratory Improvement Amendments (CLIA) mandate that cytologic and histologic results be correlated for laboratory corporate quality manager & improvement standards. ??FOR ALL HIGH-GRADE CASES [...] AUB. The HPV test was performed by [facility], [address] [place] [address]. Report Images and scanned documents, if included only viewable in PDF version The performance characteristics of some immunohistochemical stains, in-situ hybridization and fluorescence in-situ hybridization tests and immunophenotyping by flow cytometry cited in this report (if any) were determined by the Surgical Pathology Department at [facility] as part of an ongoing corporate quality manager program and in compliance with federally mandated [...] determined by the Surgical Pathology Department of [facility]. ??It has not been cleared or approved by the U. S. Food and Drug Administration. us Jodee Lanny Guillehakrishna Anyi MD LAB CYTOLOGY O RDERABLES Final Result PATHOLOGY [facility] IO [address]rd Floor [place], [place] [phone] from Last 3 Months or Most Recently Relevant to Health Maintenance Insurance Advance Directives For more information, please contact: [phone] * Full Code (Latest Code Status on File) Date Activated Date Inactivated Comments 11/14/2023 5:19 PM 11/15/2023 7:00 PM * Full Code Date Activated Date Inactivated Comments 11/14/2023 9:40 AM 11/14/2023 5:19 PM * Full Code Date Activated Date Inactivated Comments 10/15/2022 2:44 PM 10/18/2022 7:48 PM Care Teams Folder And Notcher Relationship Specialty Start Date End Date Pierre Cisneros PA [address] [place] [address] PCP - General Internal Medicine 09/04/23
--- OUTSIDE RECORDS SUMMARY | 2024-04-26 21:22 | XMS_ITS | Encounter Summary ---
Author Organization [facility] Address [address] [place] [address] Phone Care Team Providers Care Combine Inspector Name Role Phone Pierre Cisneros Primary Care Provider + Encounter Details Date Type Department Care Team (Late st Contact Info) Description 01/09/2024 12:30 PM CDT Telemedicine [facility] Radiology, Interventional Radiology [address] [place] [phone] Umberto Garcia MD [address] [place] [address] May-Thurner syndrome (Primary Dx); Deep venous thrombosis (CMS/HCC) (HCC) Social History Tobacco Use Types Packs/Day Years [...] on file 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 Vascular and Interventional Radiology Progress Note This was a telemedicine visit with the patient alone which took place via telephone. During the visit, I was located in the office and the patient was located at home in the [facility]. The patient visit started at 1124 and ended at 1135. My total encounter time on 01/09/2024 was 20 minutes which was spent in the activities documented in the note. This includes time spent prior to the visitand after the visit in direct care of the patient. This time does not include time spent in any separately reportable services.. The patient has been informed that the visit may not be secure and acknowledged the information. I have explained the option of participating in a telephone or video visit during the [facility]- public health emergency to the patient. After being given an opportunity to ask questions about and discuss this type of visit, the patient verbally consented to proceeding with the telephone/video visit.The patient understands that this service replaces an office visit and they may be billed and/or responsible for any applicable copayments. SUBJECTIVE: This is a one year follow up clinic visit after treating a May- Thurner related left legDVT felt to be provoked by OCPs. She reports pain in both legs - Painful movement in legs with stiffness and cramping, worsened with ambulation. She continues to get purplish discoloration in her legs. After her procedure, her legpain has been about the same. She reports wearing compression stockings but takes them off sometimes because of pain. She reports heavier menstrual bleeding than usual as well as persistent bleeding in between cycles. She had a visit to the ER on few days ago for worsening leg swelling/ pain and feeling knot sensation in her leg; where she was prescribed muscle relaxants. Venous Doppler negative for DVT and CTA negative for PE. She saw a soaker hides 1 week ago (01/03/24). Indications/History: 42-year-old female with chronic, unspecified psychiatric illness residing in [facility], systemic lupus erythematosus presenting with left lower extremity pain and swelling of 24 hours duration. The patient reports intermittent episodes of catatonia/severe pain resulting in bed-bound status several times a month. She reports sustaining 1 of these last week. Yesterday,she developed insidious progressive left lower extremity pain and swelling beginning at the left ankle and propagating proximally, now at the left buttock at the time of the encounter. This is associated with intermittent paresthesias, subjective weakness, and purple discoloration. The patient also reports being on chronic oral hormone therapy; unclear for contraception or therapy. No baseline anticoagulation or antiplatelet therapy. No baseline CPAP requirement. No recent surgical intervention. OBJECTIVE: Telehealth 10/15/2022 Legs Intake/Output: Chem/LFT Lab History Latest Ref Rng & Units 10/04/2023 12:22 11/14/2023 01/03/2024 10:55 Labs-Chem/LFT Sodium 135 - 145 mmol/L 139 Creatinine 0.60 - 1.10 mg/dL 1.08 Bilirubin, total 0.1 - 1.2 mg/dL 0.3 AST 10 - 45 Units/L 25 ALT 7 - 45 Units/L 16 Alk phos 40 - 130 Units/L 55 CrCl- Actual Body Weight (Cockcroft-Gault) 55.8 66.1 57.1 Details More values are hidden. Newest values [...] shown. Go to activity for more data. ASSESSMENT AND PLAN: 42F with unspecified psych illness, who p/w left leg pain/swelling on 10/12/2022 s/p left leg deep venous mechanical thrombectomy of left CIV through CFV, and left CIV stent for urner lesion - 10/15/2022 - US - left leg DVT from CFV through calf veins - 10/15/2022 - CT - clot extends up to the left CIV 2/21 August-Thurner lesion - 10/15/2022 - Venogram - Inari ClotTriever left CIV through left CFV with left 16mm x 10cm Abre self expanding bare metal stent post dilated to 14mm. - 11/08/2022 - US - no left leg DVT. Good respiratory variation within the left CFV - 11/08/2022 - CT venogram - patent left CIV/EIV stent with some residual mural thrombus. - 11/29/2022 - Clinic visit - the patient reports continued improvement of her left leg symptoms. There is some residual swelling. The patient is still on Plavix 75mg po qday but reports she was not on Lovenox over the past 4 weeks. I reassured her that the leg swelling on the left will continue to improve, but there should be the expectation that the left leg will be a little more swollen than the right. 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 - switch from Lovenox to Xarelto - continue for total of 6 months (until end March 2023) - cont Plavix for total of 3 months (until end Dec 2022) - compression stockings - her family member ordered thigh highs which should be sufficiency for herCEAP 2 symptoms. - 01/25/2023 - Left leg US - Venous insuff not ordered, and a DVT US was performed instead. No DVT. Good respiratory variation in the left CFV. - 01/25/2023 - clinic visit - the patient reports the left leg swelling has improved. She does endorse some pain in the left leg with standing for a long period of time. But overall, her symptoms are continuing to improve. I did explain that if she continues to exercise and wear compression stockings, the left leg may be almost the same as the right after standing for a period of time, but may notbe perfectly the same. She verbalized understanding. She is planning to buy new compression stockings OTC. - 03/2023 - Xarelto was discontinued by our instruction - 6 months given for provoked DVT related to OCPs - 10/04/2023 - CT - increased clot within the left CIV/EIV stent, but channel is still patent - 10/09/2023 - clinic telehealth - the patient is noticing more symptoms in the left leg - worseningswelling since 6 months ago, and left groin pain. While the groin pain may or may not be related tothe stent that is slowly thrombosing, the left leg swelling may be related. I explained to the patient that if we let the stent shut down, it will be much harder to open and it can lead to more etensive DVT. Given her symptoms and as a preventive measure - we will plan to reopen the stent with a smaller stent and plan for life long anticoagulation thereafter. - 11/14/2023 - Venogram In-stent stenosis of the left common iliac stent successfully treated with placement of a new 12 mm x 120 mm Abre stent inside the existing stent. RLE venogram WNL. - 01/03/2024 - CT abdomen pelvis - patent stent /iliocaval veins. - 01/06/2024 - B/l lower extremity venous Doppler - No DVT; CTA Chest - No PE. - 01/09/2024 - clinic telehealth - persistent leg pain and cramping about the same. - Stop Plavix due to heavy menstrual bleeding. Advised to follow up with soaker hides as persistent leg symptoms less likely attributable to venous disease given the stent patency and absence of DVT. - much of her symptoms of muscles cramping and pains throughout her body is seemingly more likely relate to a systemic process. She has already seen Rheumatology who plans to work her up with labs/imaging. Plan: - Stop Plavix for now given the heavier menstrual bleeding. Continue Xarelto at least until next clinic visit. - Will plan for a 6 month follow up telehealth visit with left leg venous duplex to assess her symptoms. Edgardo Harper MD I have seen and examined the patient on 01/09/24. I agree with the findings and plan of care as documented in the resident's/fellow's note.. Umberto Garcia MD Vascular and Interventional Radiology documented in this encounter Plan of Treatment Not on file documented as of this encounter Visit Diagnoses Diagnosis May-Thurner syndrome- Primary Compression of vein Deep venous thrombosis (CMS/HCC) (HCC) Acute venous embolism and thrombosis of unspecified deep vessels of lower extremity documented in this encounter Discontinued Medications Medication Sig Discontinue Reason Start Date End Da te clopidogreL (PLAVIX) 75 mg tablet Take 1 tablet (75 mg total) by mouth daily Therapy completed 12/19/2023 01/09/2024 documented as of this encounter Care Teams Combine Inspector Relationship Specialty Start Date End Date Pierre Cisneros PA [facility] [place] [address] PCP - General Internal Medicine 09/04/23 documented as of this encounter
--- OUTSIDE RECORDS SUMMARY | 2024-04-26 21:22 | XMS_ITS | Encounter Summary ---
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 Gender Identity Female 10/24/2023 9:52 AM CDT Sexual Orientation Straight 10/24/2023 9: 52 AM CDT documented as of this encounter Miscellaneous Notes * Telephone Encounter - Becky Olivo RN - 10/10/2023 12:32 PM CDT Pt LM with clinic, she marked the VM as urgent Says has questions about upcoming procedure and her left leg Patient IS expecting call back documented in this encounter Plan of Treatment Not on file documented as of this encounter Visit Diagnoses Not on filedocumented in this encounter Care Teams Community Relations Advisor Relationship Specialty Start Date End Date Pierre Cisneros PA [address] [place] [address] PCP - General Internal Medicine 09/04/23 documented as of this encounter
--- OUTSIDE RECORDS SUMMARY | 2024-04-26 21:22 | XMS_ITS | Encounter Summary ---
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 She [facility] 2 pills left. [facility] Garcia, awaiting response. BALL GLOVE SHAPER documented in this encounter Plan of Treatment Not on file documented as of this encounter Visit Diagnoses Not on filedocumented in this encounter Care Teams Motorsports Technician Relationship Specialty Start Date End Date Pierre Cisneros PA [address] [place] [id number] PCP - General Internal Medicine 09/04/23 documented as of this encounter
--- OUTSIDE RECORDS SUMMARY | 2024-04-26 21:22 | XMS_ITS | Encounter Summary ---
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 Garcia. Pt unsure of which doctor she is trying to schedule with but the number is [phone]. [place] called hematology office. Spoke with relay technician. She said she spoke with the pt a few minutes ago. She is scheduled for Mar 03. This is next available but she is on the wait list. Their office does not need anything further from Dr. Garcia. [place] called and spoke with pt to explain. [place] direct line given for any further questions. documented in this encounter Plan of Treatment Not on file documented as of this encounter Visit Diagnoses Not on filedocumented in this encounter Care Teams Rental Coordinator Relationship Specialty Start Date End Date Pierre Cisneros PA [address] [place] [id number] PCP - General Internal Medicine 09/04/23 documented as of this encounter
--- OUTSIDE RECORDS SUMMARY | 2024-04-26 21:22 | XMS_ITS | Encounter Summary ---
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 [place] attempted to reach pt to follow up, no answer, LM requesting a call back. [place] direct line given. documented in this encounter Plan of Treatment Not on file documented as of this encounter Visit Diagnoses Not on filedocumented in this encounter Care Teams Patrol Community Service Officer Relationship Specialty Start Date End Date Pierre Cisneros PA [address] [place] [id number] PCP - General Internal Medicine 09/04/23 documented as of this encounter
--- OUTSIDE RECORDS SUMMARY | 2024-04-26 21:22 | XMS_ITS | Encounter Summary ---
Author Organization [facility] Address [address] [place] [address] Phone Care Team Providers Care Upset Operator Name Role Phone Pierre Cisneros Primary Care Provider + Encounter Details Date Type Department Care Team (Late st Contact Info) Description 01/16/2024 Telephone [facility] Rheumatology [address] [place] [address] [place] [address] Chantel Zhang MD [address] [place] [address] Social History Tobacco Use Types [...] on file 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 Gender Identity Female 10/24/2023 9:52 AM CDT Sexual Orientation Straight 10/24/2023 9: 52 AM CDT documented as of this encounter Miscellaneous Notes * Telephone Encounter - Marquis Das RMA - 01/16/2024 1:40 PM CDT Called and lvm awaiting patient to call back with fax number to send lab orders documented in this encounter Plan of Treatment Not on file documented as of this encounter Visit Diagnoses Not on filedocumented in this encounter Care Teams Upset Operator Relationship Specialty Start Date End Date Pierre Cisneros PA [address] [place] [id number] PCP - General Internal Medicine 09/04/23 documented as of this encounter
--- OUTSIDE RECORDS SUMMARY | 2024-04-26 21:22 | XMS_ITS | Encounter Summary ---
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
--- OUTSIDE RECORDS SUMMARY | 2024-04-26 21:23 | XMS_ITS | Encounter Summary ---
Author Organization [facility] Address [address] [place] [address] Phone Care Team Providers Care Globe Changer Name Role Phone Emmanuel Ornelas MD Primary Care Provider [phone] Encounter Details Date Type Department Care Team (Late st Contact Info) Description 01/25/2023 11:30 AM CDT Office Visit [facility] Radiology, Interventional Radiology [address] [place] [address] Umberto Garcia MD [address] [place] [address] Deep venous thrombosis (CMS/HCC) (HCC) (Primary Dx); May-Thurner syndrome Social History Tobacco Use Types Packs/Day Years Used Date Smoking Tobacco: Every Day Cigarettes Smokeless Tobacco: Never Tobacco Cessation:Ready to Q uit: Not Asked; Counseling Given: Not Answered Alcohol Use Standard Drinks/Week [...] on file 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 Gender Identity Female 10/24/2023 9:52 AM CDT Sexual Orientation Straight 10/24/2023 9: 52 AM CDT documented as of this encounter Last Filed Vital Signs Vital Sign Reading Time Taken Comments Blood Pressure 100/68 01/25/2023 10:50 AM CDT Pulse - - Temperature - - Respiratory Rate - - Oxygen Saturation - - Inhaled Oxygen Concentration - - Weight 61.7 kg (136 lb) 01/25/2023 10:50 AM CDT Height 165.1 cm (5' 5 ) 01/25/2023 10:50 AM CDT Body Mass Index 22.63 01/25/2023 10:50 AM CDT documented in this encounter Progress Notes * Umberto Garcia MD - 01/25/2023 11:30 AM CDT Images from the original note were not included. Vascular and Interventional Radiology Progress Note SUBJECTIVE: This is a 3 month follow up visit after left leg single session mechanical thrombectomyand left CIV stent placement for a May-Thurner lesion. She has also undergone sinus surgery. Last visit, we explained the use of Eliquis and wearing over the counter compression stockings. She also has seen Lift Truck Mechanic in regards to fibroids and is undergoing NSAID treatment for now. She was also interested in OCPs, besides Depo-provera. She reports that the left leg swelling continues to improve. She does have some pain in the left outer leg and popliteal area when standing for a long period of time associated with some swelling. She is wondering if this will ever resolve completely. OBJECTIVE: General: Not in acute distress Resp: Normal respiratory motion CV: Regular rate Abdomen: Nondistended, nontender, no rebound/guarding Ext: minimal left leg edema when compared to the right. 10/15/2022 Legs Intake/Output: Chem/LFT Lab History Latest Ref Rng & Units 10/15/2022 09:12 10/16/2022 05:11 10/17/2022 04:52 10/18/2022 04:42 Labs-Chem/LFT Sodium 135 - 145 mmol/L 135 134 142 142 Creatinine 0.60 - 1.10 mg/dL 0.92 0.97 0.84 0.95 Bilirubin, total 0.1 - 1.2 mg/dL 0.2 <0.2 <0.2 AST 10 - 45 Units/L 22 16 20 ALT 7 - 45 Units/L 13 10 11 Alk phos 40 - 130 Units/L 49 45 47 CrCl- Actual Body Weight (Cockcroft-Gault) 84.7 79.8 92.1 81.5 Hematology Lab History Latest Ref Rng & Units 10/15/2022 09:12 10/16/2022 05:11 10/17/2022 04:52 10/18/2022 04:42 Labs - Hematology WBC 3.8 - 9.9 K/cumm 7.8 5.3 5.4 5.5 Total Hb, POC 11.9 - 15.5 g/dL 11.3 9.3 9.3 10.2 Hct 35.6 - 45.5 % 34.1 28.3 28.7 31.0 Plt 150 - 400 K/cumm 251 208 220 264 Neutrophil abs 1.7 - 6.5 K/cumm 5.1 2.9 1.7 1.7 Lymphocytes, abs 0.8 - 3.3 K/cumm 1.7 1.6 2.7 2.7 ASSESSMENT AND PLAN: 42F with unspecified psych illness, who p/w left leg pain/swelling on 10/12/2022 s/p left leg deep venous mechanical thrombectomy of left CIV through CFV, and left CIV stent for August-Thurner lesion - 10/15/2022 - US - left leg DVT from CFV through calf veins - 10/15/2022 - CT - clot extends up to the left CIV 2/2 May-Thurner lesion - 10/15/2022 - Venogram - Inari [...] reflux that occurs after an extensive DVT. Plan: - switch from Lovenox to Xarelto - continue for total of 6 months (until end of March 2023) - cont Plavix for total of 3 months (until end of Dec 2022) - compression stockings - her family member ordered thigh highs which should be sufficiency for herCEAP 2 symptoms. - will obtain left leg venous insufficiency US end of dec 2022 with in-person clinic visit to assess for venous insufficicency for her varicose veins as well as to assess whether she can discontinueher plavix at that time. - 01/25/2023 - Left leg US - [...] planning to buy new compression stockings OTC. Plan: - Cont Xarelto until end of Mar 2023. - can discontinue Plavix now - telehealth visit in beginning of Apr 2023 - if symptoms remain improved, will likely discontinue Xarelto to complete a 6 month course Umberto Garcia MD Vascular and Interventional Radiology documented in this encounter Plan of Treatment Not on file documented as of this encounter Visit Diagnoses Diagnosis Deep venous thrombosis (CMS/HCC) (HCC)- Primary Acute venous embolism and thrombosis of unspecified deep vessels of lower extremity May-Thurner syndrome Compression of vein documented in this encounter Discontinued Medications Medication Sig Discontinue Reason Start Date End Da te clopidogreL (PLAVIX) 75 mg tablet Take 1 tablet (75 mg total) by mouth daily No longer clinically indicated 10/19/2022 01/25/2023 documented as of this encounter Historical Medications * This list may reflect changes made after this encounter. ALPRAZolam (XANAX) 1 mg tabletIndications :anxiety Take 1 tablet (1 mg total) by mouth 3 (three) times a day as needed for anxiety 01/21/2023 buPROPion SR (WELLBUTRIN SR) 150 mg 12 hr tablet 01/05/2023 11/04/2023 metoclopramide (REGLAN) 5 mg tablet Take 1 tablet 3 times a day by oral route before meals. 11/26/2022 11/04/2023 meloxicam (MOBIC) 7.5 mg tablet TK 1 T PO WITH FOOD QD 11/04/2023 lidocaine (LIDODERM) 5 % 12/17/2022 11/04/2023 hydrOXYzine (VISTARIL) 50 mg capsule 12/30/2022 11/04/2023 HYDROcodone-aceta minophen (NORCO) 7.5-325 mg per tablet Take 1 tablet by mouth every 4 (four) hours as needed 11/04/2023 fluticasone propionate (FLONASE) 50 mcg/actuation nasal spray 11/04/2023 cetirizine (ZyrTEC) 10 mg tablet Take 1 tablet (10 mg total) by mouth daily 11/04/2023 added in this encounter Care Teams Globe Changer Relationship Specialty Start Date End Date Emmanuel Ornelas MD PCP - General Obstetrics and Gynecology 11/29/2208/20 documented as of this encounter
--- OUTSIDE RECORDS SUMMARY | 2024-04-26 21:23 | XMS_ITS | Encounter Summary ---
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) [place] [address] [address] Phone: tel: fax: [address] [phone] Referral ID Status Reason Start Date Expiration Date Visits Re quested Visits Authorized [id number] Closed 06/04/2023 07/03/2024 1 1 Reason for Visit * Neurology (Routine) - Closed Specialty Diagnoses / Procedures Referred By Contac t Referred To Contact Diagnoses 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) [place] [address] [address] Phone: tel: fax: [address] [phone] Referral ID Status Reason Start Date Expiration Date Visits Re quested Visits Authorized [id number] Closed 06/04/2023 07/03/2024 1 1 Encounter Details Date Type Department Care Team (Latest Contact Info) Description 08/15/2023 12:44 PM CDT - 08/15/2023 11:59 PM CDT Hospital Encounter [facility] Neurology Testing [address] [place] [address] 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) Discharge Disposition: Discharge to home [...] on file Legal Sex Female 7:09 AM 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 ONCOLOGIST Gender Identity Female 10/24/2023 9:52 AM CDT Sexual Orientation Straight 10/24/2023 9: 52 AM CDT documented as of this encounter Medications at Time of Discharge ALPRAZolam (XANAX) 1 mg tabletIndications:a nxiety Take 1 tablet (1 mg total) by mouth 3 (three) times a day as needed for anxiety 3 dextroamphetamine-a mphetamine XR (ADDERALL XR) 30 mg 24 hr capsuleIndications: Attention-Deficit Hyperactivity Disorder Take 1 capsule (30 mg total) by mouth every morning 4 lamoTRIgine (LaMICtal) 150 mg tablet Take 1 tablet (150 mg total) by mouth daily On hold 3 levothyroxine (SYNTHROID) 175 mcg tablet Take 1 tablet (175 mcg total) by mouth electrolysis investigator before breakfast 30 tablet 3 naltrexone (DEPADE) 50 mg tabletIndications:P revention of Opioid Abuse Take 1 tablet (50 mg total) by mouth nightly 4 Wellbutrin XL 300 mg 24 hr tabletIndications:A nxiety with Depression Take 1 tablet (300 mg total) by mouth nightly Half tablet 2 acetaminophen (TYLENOL) 500 mg tablet Take 2 tablets (1,000 mg total) by mouth 4 11/04/19 24 acetaminophen-codei ne (TYLENOL with CODEINE #3) 300-30 mg per tablet TK 1 TO 2 TS PO Q 4 TO 6 H PRN 11/04/19 24 buPROPion SR (WELLBUTRIN SR) 150 mg 12 hr tablet 3 11/04/19 24 buPROPion XL (WELLBUTRIN XL) 150 mg 24 hr tablet Take 1 tablet (150 mg total) by mouth daily 30 tablet 11 3 11/04/19 24 butalbital-acetamin ophen-caffeine (ESGIC) 50-325-40 mg per tablet TK 1-2 TS PO Q 4-6 HOURS PRN 11/04/19 24 calcium carbonate (TUMS) 500 mg (200 mg elemental calcium) chewable tablet Take 1 tablet/chew tab (500 mg total) by mouth as needed 1 11/04/19 24 cetirizine (ZyrTEC) 10 mg tablet Take 1 tablet (10 mg total) by mouth daily 11/04/19 24 ciprofloxacin (CIPRO) 500 mg tablet Take 1 tablet every 12 hours by oral route for 10 days, for dysuria. 4 11/04/19 24 cloNIDine (CATAPRES) 0.2 mg tablet 11/04/19 24 clopidogreL (PLAVIX) 75 mg tablet Take 1 tablet (75 mg total) by mouth 3 11/04/19 24 cyanocobalamin (Vitamin B-12) 1,000 mcg/mL injection Inject 1 mL every month by intramuscular route. 3 11/04/19 24 diazePAM (VALIUM) 5 mg tablet Take 1 tablet (5 mg total) by mouth 2 (two) times a day 30 tablet 3 11/04/19 24 docusate sodium (COLACE) 100 mg capsule Take 1 capsule (100 mg total) by mouth 2 (two) times a day as needed 1 11/04/19 24 fluticasone propionate (FLONASE) 50 mcg/actuation nasal spray 11/04/19 24 Focalin XR 20 mg 24 hr capsule 4 11/04/19 24 HYDROcodone-acetami nophen (NORCO) 7.5-325 mg per tablet Take 1 tablet by mouth every 4 (four) hours as needed 11/04/19 hydrOXYzine (ATARAX) 50 mg tablet Take 1 tablet (50 mg total) by mouth electrolysis investigator before breakfast 30 tablet 3 11/04/19 24 hydrOXYzine (VISTARIL) 50 mg capsule 3 11/04/19 24 lamoTRIgine (LaMICtal) 25 mg tablet 11/04/19 24 lidocaine (LIDODERM) 5 % Place 1 patch on the skin daily Remove & discard patch within 12 hours or as directed by MD. 30 patch 1 11/15/19 24 lidocaine (LIDODERM) 5 % 3 11/04/19 24 Linzess 145 mcg capsule 3 11/04/19 24 meloxicam (MOBIC) 7.5 mg tablet TK 1 T PO WITH FOOD QD 11/04/19 24 metoclopramide (REGLAN) 5 mg tablet Take 1 tablet 3 times a day by oral route before meals. 3 11/04/19 24 multivitamin tabletIndications:V itamin Deficiency Prevention Take 1 tablet by mouth daily 30 tablet 3 11/04/19 24 nicotine (NICODERM CQ) 14 mg Apply 1 patch every day by transdermal route for 14 days. 11/04/19 24 ondansetron ODT (ZOFRAN-ODT) 8 mg disintegrating tablet Take 1 tablet (8 mg total) by mouth every 8 (eight) hours as needed for nausea 11/15/19 polyethylene glycol (MIRALAX) 17 gram/dose bulk powderIndications:H ealthcare maintenance Take 17 g by mouth daily as needed (To be used daily) 510 g 3 11/04/19 24 predniSONE (DELTASONE) 50 mg tablet Take 1 tablet (50 mg) by mouth once as needed (see instructions below) for up to 3 doses Take 1 tablet 13, 7, 1 hour before procedure 3 tablet 4 11/04/19 24 rivaroxaban (XARELTO) 20 mg tablet Take 1 tablet (20 mg total) by mouth daily with breakfast 30 tablet 3 3 10/09/19 24 topiramate (TOPAMAX) 100 mg tablet 3 11/04/19 24 venlafaxine XR (EFFEXOR-XR) 37.5 mg 24 hr capsule 11/04/19 24 ziprasidone (GEODON) 40 mg capsule Take 1 capsule (40 mg total) by mouth 2 (two) times a day with meals 60 capsule 3 11/04/19 24 documented as of this encounter Discharge Disposition Disposition Code Departure Means Destination Discharge to home or self care documented in this encounter Procedure Notes * Munir Dietrich MD - 08/15/2023 1:00 PM CDT Procedures History: This is a 42 years old female being evaluated for seizure disorder. The condition of the patient during the tracing was reported to be awake and drowsy. The quality of study is compromised slightly by excessive artifact. The background activity consisted of 3-4 hertz delta activity at beginning of the tracing. When patient become more awake, the background activity consisted of 5-6 hertz theta activity of low to moderate amplitude. There was no epileptiform discharges seen in this tracing. EKG showed regular rate and rhythm. Impressions: This is an abnormal EEG because of diffuse slowing. The finding is suggestive of mild encephalopathy which could be secondary to metabolic, hypoxic or toxic insult and sedative side effect of medications. There was no epileptiform discharge seen in this tracing. The clinical correlation is recommended. 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 The condition of the patient during the tracing was reported to be awake and drowsy. The quality of study is compromised slightly by excessive artifact. The background activity consisted of 3-4 hertz delta activity at beginning of the tracing. ??When patient become more awake, the background activity consisted of 5-6 hertz theta activity of low to moderate amplitude. ??There was no epileptiform discharges seen in this tracing. EKG showed regular rate and rhythm. Impressions: This is an abnormal EEG because of diffuse slowing. ??The finding is suggestive of mild encephalopathy which could be secondary to metabolic, hypoxic or toxic insult and sedative side effect of medications. ??There was no epileptiform discharge seen in this tracing. ??The clinical correlation is recommended. 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
--- OUTSIDE RECORDS SUMMARY | 2024-04-26 21:23 | XMS_ITS | Encounter Summary ---
Author Organization [facility] Healthcare Address [address] [place] [address] Care Team Providers Care Routing Equipment Tender Name Role Phone Emmanuel Ornelas MD Primary Care Provider [phone] Encounter Details Date Type Department Care Team (Late st Contact Info) Description 03/29/2023 Telephone 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 Follow up appointment scheduled with Dr. Garcia at 1pm in the [facility] clinic. Patient verbalized understanding. To call RN PRN X VMWARE ADMINISTRATOR documented in this encounter Plan of Treatment Not on file documented as of this encounter Visit Diagnoses Not on filedocumented in this encounter Care Teams Routing Equipment Tender Relationship Specialty Start Date End Date Emmanuel Ornelas MD PCP - General Obstetrics and Gynecology 11/29/2208/20 documented as of this encounter
--- OUTSIDE RECORDS SUMMARY | 2024-04-26 21:23 | XMS_ITS | Encounter Summary ---
Author Organization [facility] Address [address] [place] [address] Phone Care Team Providers Care Commercial Account Executive Name Role Phone Emmanuel Ornelas MD Primary Care Provider [phone] [phone] Encounter Details Date Type Department Care Team (Late st Contact Info) Description 04/10/2023 Telephone [facility] Radiology, Interventional Radiology [address] [place] [address] Nga Pruitt CMA Social History Tobacco Use Types Packs/Day Years [...] on file Legal Sex Female 7:09 AM SALESPERSON 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 Gender Identity Female 10/24/2023 9:52 AM CDT Sexual Orientation Straight 10/24/2023 9: 52 AM CDT documented as of this encounter Miscellaneous Notes * Telephone Encounter - Nga Pruitt CMA - 04/10/2023 10:18 AM CST Patient called and stated that she had covid and canceled her appointment and stated that she wouldcall back to get rescheduled SPERSON FURS documented in this encounter Plan of Treatment Not on file documented as of this encounter Visit Diagnoses Not on filedocumented in this encounter Care Teams Commercial Account Executive Relationship Specialty Start Date End Date Emmanuel Ornelas MD PCP - General Obstetrics and Gynecology 11/29/2208/20 documented as of this encounter
--- OUTSIDE RECORDS SUMMARY | 2024-04-26 21:23 | XMS_ITS | Encounter Summary ---
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) Procedures MRI Brain [place] [address] [address] Phone: tel: fax: [phone] [place] [phone] Referral ID Status Reason Start Date Expiration Date Visits Re quested Visits Authorized [id number] Denied 08/08/2023 09/06/2024 1 0 Encounter Details Date Type Department Care Team (Late st Contact Info) Description 08/08/2023 Orders Only [facility] [address] [address] [address] [place] [id number] [place] [address] Memory loss (Primary Dx); 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) Social History Tobacco Use Types [...] on file Legal Sex Female 7:09 AM 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 Gender Identity Female 10/24/2023 9:52 AM CDT Sexual Orientation Straight 10/24/2023 9: 52 AM CDT documented as of this encounter Progress Notes * Hilario Lundberg II, MD - 08/08/2023 3:53 PM CDT I will order the MRI of the brain with and without contrast documented in this encounter Plan of Treatment Scheduled Orders Name Type Priority Associated Diagnoses Orde r Schedule MRI Brain W WO Contrast Imaging Schedule Routine, Read Routine (OP Routine) Memory loss 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
--- OUTSIDE RECORDS SUMMARY | 2024-04-26 21:23 | XMS_ITS | Encounter Summary ---
Author Organization [facility] Healthcare Address [address] [place] [address] Care Team Providers Care Rod Machine Operator Name Role Phone Emmanuel Ornelas MD Primary Care Provider [phone] [phone] Reason for Referral * MRI/CAT/PET Scan (Routine) - Closed Specialty Diagnoses / Procedures Referred By Contac t Referred To Contact Radiology Diagnoses May-Thurner syndrome Procedures CT Abdomen Pelvis W Contrast Umberto Garcia MD [address] [facility] [address] [place] [address] Phone: tel: fax: [address] [phone] Referral ID Status Reason Start Date Expiration Date Visits Re quested Visits Authorized [id number] Closed 09/18/2023 09/17/2024 1 1 AURANT CREW Encounter Details Date Type Department Care Team (Late st Contact Info) Description 06/20/2023 Orders Only [facility] Radiology [address] [place], [place] [id number] Nga Shay, YANET May-Thurner syndrome (Primary Dx) Social History Tobacco Use Types Packs/Day Years [...] on file Legal Sex Female 7:09 AM RESTAURANT CREW Gender Identity Female 10/24/2023 9:52 AM CDT Sexual Orientation Straight 10/24/2023 9: 52 AM CDT documented as of this encounter Ordered Prescriptions Prescription Sig Dispense Quantity Refills Last Filled Start Date End Date predniSONE (DELTASONE) 50 mg tablet Take 1 tablet (50 mg) by mouth once as needed (see instructions below) for up to 3 doses Take 1 tablet 13, 7, 1 hour before procedure 3 tablet 06/20/2023 documented in this encounter Plan of Treatment Not on file documented as of this encounter Results * CT Abdomen Pelvis W Contrast (10/04/2023 12:50 PM CDT) Anatomical Region Laterality Modality Body N/A Computed Tomogra phy 10/04/2023 12:5 9 PM CDT Impressions 10/04/2023 12:59 PM CDT 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 ??Thrombus extends to the proximal margin of the stent but does not extend into the inferior vena cava. ??There is no significant external compression of the stent. ??The left external iliac vein distal to the stent is patent there is no evidence of thrombus in the right iliac veins. Electronically signed by: Kb Mancini M.D. Narrative 10/04/2023 12:59 PM CDT EXAMINATION: ??Computed tomography of the abdomen and pelvis with intravenous contrast HISTORY: May Thurner syndrome TECHNIQUE: ??Transaxial computed tomographic images of the abdomen and pelvis were obtained with intravenous contrast according to the IVC venogram protocol after the uneventful administration of 93 mL Opti-Ray 350 intravenous contrast. COMPARISON: 11/08/2022 FINDINGS: Compared with the prior study, there is mild progression of in stent thrombus within the left common iliac vein stent with resultant moderate narrowing throughout. ??Thrombus within the stent extends to the proximal stent margin but does not protrude into the inferior vena cava. The stomach and duodenum are decompressed. The liver is normal. ??The gallbladder is normal. ??The portal, superior mesenteric and splenic veins are normal. ??The pancreas is normal. ??The spleen is normal. ??The adrenal glands are normal. ??The kidneys are normal. ??The abdominal aorta is normal. ??There is no pelvic lymphadenopathy. ??Multiple nabothian cysts are noted in the cervix. ??The colon and small bowel are normal in caliber. No acute or suspicious osseous findings. Procedure Note Kb Mancini MD - 10/04/2023 EXAMINATION: Computed tomography of the abdomen and pelvis with intravenous contrast HISTORY: May Thurner syndrome TECHNIQUE: Transaxial computed tomographic images of the abdomen and pelvis were obtained with intravenous contrast according to the IVC venogram protocol after the uneventful administration of 93 mL Opti-Ray 350 intravenous contrast. COMPARISON: 11/08/2022 FINDINGS: Compared with the prior study, there is mild progression of in stent thrombus within the left common iliac vein stent with resultant moderate narrowing throughout. Thrombus within the stent extends to the proximal stent margin but does not protrude into the inferior vena cava. The stomach and duodenum are decompressed. The liver is normal. The gallbladder is normal. The portal, superior mesenteric and splenic veins are normal. The pancreas is normal. The spleen is normal. The adrenal glands are normal. The kidneys are normal. The abdominal aorta is normal. There is no pelvic lymphadenopathy. Multiple nabothian cysts are noted in the cervix. The colon and small bowel are normal in caliber. No acute or suspicious osseous findings. IMPRESSION: Slightly worsened thrombus within left common [...] of thrombus in the right iliac veins. Electronically signed by: Kb Mancini M.D. Umberto Garica MD IMG CT PROCEDURES Final Result documented in this encounter Visit Diagnoses Diagnosis May-Thurner syndrome- Primary Compression of vein May-Thurner syndrome Compression of vein documented in this encounter Care Teams Rod Machine Operator Relationship Specialty Start Date End Date Emmanuel Ornelas MD PCP - General Obstetrics and Gynecology 11/29/2208/20 documented as of this encounter
--- OUTSIDE RECORDS SUMMARY | 2024-04-26 21:23 | XMS_ITS | Encounter Summary ---
Author Organization [facility] Healthcare Address [address] [place] [address] Care Team Providers Care Sales Service Supervisor Name Role Phone Pierre Cisneros Primary Care Provider + Reason for Referral * MRI/CAT/PET Scan (Routine) - Closed Specialty Diagnoses / Procedures Referred By Contac t Referred To Contact Radiology Diagnoses May-Thurner syndrome Procedures CT Abdomen Pelvis W Contrast Umberto Garcia MD [address] [place] [address] Phone: tel: fax: [address] [phone] Referral ID Status Reason Start Date Expiration Date Visits Re quested Visits Authorized [id number] Closed 09/18/2023 09/17/2024 1 1 Reason for Visit * MRI/CAT/PET Scan (Routine) - Closed Specialty Diagnoses / Procedures Referred By Contac t Referred To Contact Radiology Diagnoses May-Thurner syndrome Procedures CT Abdomen Pelvis W Contrast Umberto Garcia MD [address] [place] [address] Phone: tel: fax: [address] [phone] Referral ID Status Reason Start Date Expiration Date Visits Re quested Visits Authorized [id number] Closed 09/18/2023 09/17/2024 1 1 Encounter Details Date Type Department Care Team (Late st Contact Info) Description 10/04/2023 11:38 AM CDT - 10/04/2023 11:59 PM CDT Hospital Encounter [facility] Radiology [facility] [address] [place] [address] Umberto Garcia MD [address] [facility] [address] [place] [address] May-Thurner syndrome Discharge Disposition: Discharge to home [...] on file Legal Sex Female 7:[address] Gender Identity Female 10/24/2023 9:52 AM [...] 1 tablet (175 mcg total) by mouth naval gunfire liaison officer before breakfast 30 tablet 3 naltrexone (DEPADE) 50 mg tabletIndications:P revention of Opioid Abuse Take 1 tablet (50 mg total) by mouth nightly 4 tretinoin (RETIN-A) 0.1 % creamIndications:Ac ne Vulgaris Apply topically nightly 4 Wellbutrin XL 300 mg 24 [...] every 4 (four) hours as needed 11/04/19 24 hydrOXYzine (ATARAX) 50 mg tablet Take 1 tablet (50 mg total) by mouth naval gunfire liaison officer before breakfast 30 tablet 3 11/04/19 24 [...] (eight) hours as needed for nausea 11/15/19 24 polyethylene glycol (MIRALAX) 17 gram/dose bulk powderIndications:H [...] CONTRAST Schedule Routine, Read Routine (OP Routine) 10/04/2023 12:50 PM CDT May-Thurner syndrome POCT CREATININE - DEVICE Routine 10/04/2023 12:22 PM CDT documented in this encounter Results [...] right iliac veins. Electronically signed by: Kb Mnacini M.D. Umberto Garcia MD IMG CT PROCEDURES Final Result * (ABNORMAL) POCT creatinine (10/04/2023 12:22 PM CDT) Creatinine POC 1.3(H) 0.6 - 1.1 mg/dL Blood 10/04/2023 12:2 2 PM CDT 10/04/2023 12:22 PM CDT Umberto Garcia MD LAB POCT ORDERABLES - DEVICE Fin al Result [facility] Department [place] [address] documented in this encounter Visit Diagnoses Diagnosis May-Thurner syndrome Compression of vein documented in this encounter Administered Medications Inactive Administered Medications - up to 3 most recent administrations Medication Order MAR Action Action Date Dose Rate Site ioversoL (OPTIRAY 350) syringe 100 mL 100 mL, intravenous, Once in imaging, contrast, Starting on Sat10/04/23 at 1251, For 1 dose Contrast Given 10/04/2023 12:51 PM CDT 93 mL documented in this encounter Orders Medications Ordered That Nael ht Not Have Been Administered Count Last Ordered Date First Ordered Date ioversoL (OPTIRAY 350) syringe 100 mL 1 documented in this encounter Care Teams Sales Service Supervisor Relationship Specialty Start Date End Date Pierre Cisneros PA [address] [place] [id number] PCP - General Internal Medicine 09/04/23 documented as of this encounter
--- OUTSIDE RECORDS SUMMARY | 2024-04-26 21:23 | XMS_ITS | Encounter Summary ---
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 OR POLISHER documented in this encounter Plan of Treatment Not on file documented as of this encounter Visit Diagnoses Not on filedocumented in this encounter Care Teams Nurse Practitioner Physicians Assistant Relationship Specialty Start Date End Date Emmanuel Ornelas MD PCP - General Obstetrics and Gynecology 11/29/2208/20 documented as of this encounter
--- OUTSIDE RECORDS SUMMARY | 2024-04-26 21:23 | XMS_ITS | Encounter Summary ---
Author Organization [facility] Healthcare Address [address] [place] [address] Care Team Providers Care Coating Line Worker Name Role Phone Pierre Cisneros Primary Care Provider + Encounter Details Date Type Department Care Team (Late st Contact Info) Description 09/06/[address] 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 Awaitinga call back. Pt currently scheduled for 10/07/23 at 1300. Need to reschedule to 10/09/23 at 1400 if possible. [address] pt of CT on 10/04/23 at 12PM at [facility],1130AM arrival. NPO x 2HRS, prednisone at pharm per YANET MARTIN note. documented in this encounter Plan of Treatment Not on file documented as of this encounter Visit Diagnoses Not on filedocumented in this encounter Care Teams Coating Line Worker Relationship Specialty Start Date End Date Pierre Cisneros PA [address] [place] [address] PCP - General Internal Medicine 09/04/23 documented as of this encounter
--- OUTSIDE RECORDS SUMMARY | 2024-04-26 21:23 | XMS_ITS | Encounter Summary ---
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 documented in this encounter Plan of Treatment Not on file documented as of this encounter Visit Diagnoses Not on filedocumented in this encounter Care Teams Upholstery Covers Inspector Relationship Specialty [place] [address] [place] [address] PCP - General Internal Medicine 09/04/23 documented as of this encounter
--- OUTSIDE RECORDS SUMMARY | 2024-04-26 21:23 | XMS_ITS | Encounter Summary ---
Author Organization [facility] Healthcare Address [address] [place] [address] Care Team Providers Care Vice President Underwriting Name Role Phone Emmanuel Ornelas MD Primary Care Provider [phone] Reason for Visit * Reason Onset Date Comments Left Message 06/18/2023 Insurance Referrals 06/18/2023 Encounter Details Date Type Department Care Team (Late st Contact Info) Description 06/18/2023 Telephone [facility] [address] [place] [address] [address], [place] [address] [place] [id number] [place] [address] Left Message; Insurance Referrals Social History Tobacco Use Types Packs/Day Years [...] on file Legal Sex Female 7:09 AM MOUNTER SAXOPHONES Gender Identity Female 10/24/2023 9:52 AM CDT Sexual Orientation Straight 10/24/2023 9: 52 AM CDT documented as of this encounter Miscellaneous Notes * Telephone Encounter - Floridalma Alonso CMA - 06/19/2023 2:56 PM CST Patient verbalized her understanding did not have any additional questions TER SAXOPHONES * Telephone Encounter - Kanchan Dale MA - 06/18/2023 12:24 PM CST Message sent to [employer]. Thank you. TER SAXOPHONES * Telephone Encounter - Ivory Sanchez - 06/18/2023 9:13 AM CST Incoming Call ABIDA: 06/04/23 NOV: 07/23/23 Caller/Ph#: Patient /[phone] Reason for call:patient wanting to know will the MRI and EEG show if she had a stroke.will it be a close MRI are open MRI. Patient request a call back. TER SAXOPHONES documented in this encounter Plan of Treatment Not on file documented as of this encounter Visit Diagnoses Not on filedocumented in this encounter Care Teams Vice President Underwriting Relationship Specialty Start Date End Date Emmanuel Ornelas MD PCP - General Obstetrics and Gynecology 11/29/2208/20 documented as of this encounter
--- OUTSIDE RECORDS SUMMARY | 2024-04-26 21:23 | XMS_ITS | Encounter Summary ---
Author Organization [facility] Address [address] [place] [address] Phone Care Team Providers Care Box Covering Machine Operator Name Role Phone Emmanuel Ornelas MD Primary Care Provider [phone] [phone] Reason for Visit * Reason Onset Date Comments voicemail 03/07/2023 Encounter Details Date Type Department Care Team (Late st Contact Info) Description 03/07/2023 Telephone [facility] Radiology, Interventional Radiology [address] [place] [address] Becky Olivo, YANET voicemail Social [...] on file Legal Sex Female 7: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 BONDING AGENT Gender Identity Female 10/24/2023 9:52 AM CDT Sexual Orientation Straight 10/24/2023 9: 52 AM CDT documented as of this encounter Miscellaneous Notes * Telephone Encounter - Becky Olivo RN - 03/07/2023 2:43 PM CST Pt LM with clinic Has pain in leg, feels heavy, leg 'goes out on her' Had d/c one blood thinner Pt of SS Patient IS expecting call back [phone] ING AGENT documented in this encounter Plan of Treatment Not on file documented as of this encounter Visit Diagnoses Not on filedocumented in this encounter Care Teams Box Covering Machine Operator Relationship Specialty Start Date End Date Emmanuel Ornelas MD PCP - General Obstetrics and Gynecology 11/29/2208/20 documented as of this encounter
--- OUTSIDE RECORDS SUMMARY | 2024-04-26 21:23 | XMS_ITS | Encounter Summary ---
Author Organization [facility] Healthcare Address [address] [place] [address] Care Team Providers Care Acoustic Sensor Operator Name Role Phone Emmanuel Ornelas MD Primary Care Provider +1 [phone] Encounter Details Date Type Department Care Team (Late st Contact Info) Description 06/03/2023 Telephone [facility] [address] [place] [address] [place] [address] [facility] [address] [place] [address] Social History Tobacco Use Types Packs/Day Years [...] on file 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 LUNDBERG 06/04/23 Appointment confirmed MACHINE OPERATOR documented in this encounter Plan of Treatment Not on file documented as of this encounter Visit Diagnoses Not on filedocumented in this encounter Care Teams Acoustic Sensor Operator Relationship Specialty Start Date End Date Emmanuel Ornelas MD PCP - General Obstetrics and Gynecology 11/29/2208/20 documented as of this encounter
--- OUTSIDE RECORDS SUMMARY | 2024-04-26 21:23 | XMS_ITS | Encounter Summary ---
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 Per stanford Baldwin for patient to hold Eliquis for the procedure. [facility] updated. E MAKER E MAKER documented in this encounter Plan of Treatment Not on file documented as of this encounter Visit Diagnoses Not on filedocumented in this encounter Care Teams Research Laboratory Technician Relationship Specialty Start Date End Date Emmanuel Ornelas MD PCP - General Obstetrics and Gynecology 11/29/2208/20 documented as of this encounter
--- OUTSIDE RECORDS SUMMARY | 2024-04-26 21:23 | XMS_ITS | Encounter Summary ---
Author Organization [facility] Healthcare Address [address] [place] [address] Care Team Providers Care Coremaker Machine Name Role Phone Emmanuel Ornelas MD Primary Care Provider [phone] [phone] Encounter Details Date Type Department Care Team (Late st Contact Info) Description 12/20/[address] [facility] Radiology [address] [place] [address] Tori Arora RN Social History Tobacco Use Types Packs/Day Years Used Date Smoking Tobacco: Every Day Cigarettes Smokeless Tobacco: Never Alcohol Use Standard Drinks/Week Comments Not Currently 0 (1 standard drink = 0.6 oz pur e alcohol) Personal Safety Answer Date Recorded Have you ever been in or are you currently in a harmful physical or emotional relationship or is someone making you feel afraid or unsafe? 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 Imaging scheduled for 1015 with 1000 arrival. Clinic visit scheduled for 11:30. Pt agreeable and verbalized understanding. [place] direct line given for call back as needed. documented in this encounter Plan of Treatment Not on file documented as of this encounter Visit Diagnoses Not on filedocumented in this encounter Care Teams Coremaker Machine Relationship Specialty Start Date End Date Emmanuel Ornelas MD PCP - General Obstetrics and Gynecology 11/29/2208/20 documented as of this encounter
--- OUTSIDE RECORDS SUMMARY | 2024-04-26 21:23 | XMS_ITS | Encounter Summary ---
Author Organization [facility] Healthcare Address [address] [place] [address] Care Team Providers Care Revenue Accountant Name Role Phone Emmanuel Ornelas MD Primary Care Provider [phone] [phone] Reason for Visit * Reason Onset Date Comments Appointment 03/11/2023 Encounter Details Date Type Department Care Team (Late st Contact Info) Description 03/11/2023 Telephone [facility] Radiology [address] [place] [address] Mayra Brennan, RN Appointment Social History Tobacco Use Types [...] on file Legal Sex Female 7:09 AM VACCINATOR Gender Identity Female 10/24/2023 9:52 AM CDT Sexual Orientation Straight 10/24/2023 9: 52 AM CDT documented as of this encounter Miscellaneous Notes * Telephone Encounter - Nga Pruitt CMA - 03/18/2023 10:28 AM CST Patient called and stated that she needed the US and the visit with Dr. Garcia on the same day. I didlet the patient know that we would call her back. INATOR * Telephone Encounter - Becky Olivo RN - 03/13/2023 9:48 AM CST Called patient back She said 03/22 will not work for her Would SS be able to see her 04/11 at [facility] clinic on his academic day? Clinic will also need to schedule her US reflux if this date is OK'd by Patient IS expecting call back INATOR * Telephone Encounter - Becky Olivo RN - 03/13/2023 7:58 AM CST Pt LM with clinic inquiring about US date, she was hoping for 03/20 Ordered by Patient IS expecting call back [phone] INATOR INATOR * Telephone Encounter - Becky Olivo RN - 03/12/2023 8:38 AM CST Attempted to reach above number, left message For pt. I Called [facility] they cannot perform there [facility] has availability 03/22- could get this done there in the morning and then do clinic visit after with . Would this work for pt? If so, will need to schedule US reflux at [facility] and clinic after INATOR * Telephone Encounter - Becky Olivo RN - 03/11/2023 12:56 PM VACCINATOR Attempted to reach above number, left message For pt. I Called [facility] they cannot perform there [facility] has availability 03/22- could get this done there in the morning and then do clinic visit after with SS. Would this work for pt? If so, will need to schedule US reflux at [facility] and clinic after INATOR * Telephone Encounter - Becky Olivo RN - 03/11/2023 12:37 PM VACCINATOR Christopher, Could you schedule US reflux for 03/2023 and clinic visit to follow? Dr. Garcia did want to see her 03/22. Thanks, Mayra Called and spoke with pt Pt wanted to schedule at [facility]. INATOR * Telephone Encounter - Mayra Brennan RN - 03/11/2023 11:36 AM CST Spoke w/ pt let her know that Dr. Garcia would like for her to get an US done and a clinic visit in 04/20. Pt stated that she is having pain in her opposite leg, her leg gave out, she had facial droop earlier this year. She did not get it checked out right away she was embarrassed and tried to hid itthought it was something mentally going on. She did eventually go to get checked but they did not run any test on her brain at the time. She is looking for a neurologist.Informed Dr. Garcia, placed order for US. INATOR documented in this encounter Plan of Treatment Not on file documented as of this encounter Visit Diagnoses Not on filedocumented in this encounter Care Teams Revenue Accountant Relationship Specialty Start Date End Date Emmanuel Ornelas MD PCP - General Obstetrics and Gynecology 11/29/2208/20 documented as of this encounter
--- OUTSIDE RECORDS SUMMARY | 2024-04-26 21:23 | XMS_ITS | Encounter Summary ---
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 Patient also is scheduled to see SS on 06/20 at 10:00 am Appointment details [facility] INE MECHANIC * Telephone Encounter - Nga Pruitt CMA - 06/05/2023 9:40 AM CST Lmom for the patient to let her know that we have been trying to get ahold of her to schedule her US and FU appt with SS. I have left 3 messages and sent a message through the patient's my chart INE MECHANIC * Telephone Encounter - Nga Pruitt CMA - 06/03/2023 8:20 AM CST Sent patient a message letting her know that we have been trying to get ahold of her to get her scheduled for her US and Fu with Dr. Oneil INE MECHANIC * Telephone Encounter - Nga Pruitt CMA - 05/31/2023 11:03 AM CST Lmom for the patient to call back to get her scheduled for her US and FU with SS INE MECHANIC * Telephone Encounter - Mayra Brennan RN - 05/29/2023 12:06 PM CST Pt called need to reschedule clinic visit and US. Canceled clinic visit for 05/31. Sent to clinic to have rescheduled. INE MECHANIC documented in this encounter Plan of Treatment Not on file documented as of this encounter Visit Diagnoses Not on filedocumented in this encounter Care Teams Motor Room Controller Relationship Specialty Start Date End Date Emmanuel Ornelas MD PCP - General Obstetrics and Gynecology 11/29/2208/20 documented as of this encounter
--- OUTSIDE RECORDS SUMMARY | 2024-04-26 21:23 | XMS_ITS | Encounter Summary ---
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 She had an inperson visit with me tomorrow which would not be of much benefit. She is currently having some muscle achiness in the left calf and thigh. She often leans on her nonaffected right leg to compensate. It is a little worse with walking and does not improve with compression stockings. She does feel a little weak on the left side. We discussed that she may still be rehabilitating after her hospital stay last year and may benefitfrom physical therapy to strengthen her legs. She will ask her PCP about this. Meanwhile, the US shows patent veins, good respiratory variation of the left CFV indirectly indicating a patent left iliac stent. Plan: - repeat CT venogram one year post intervention (October 2023). If pt feels stable - we can arrange a telehealth visit to discuss results. But if pt is more symptomatic, she will be setup for an in-person clinic visit with me. - she has discontinued Xarelto and Plavix. We do not need to restart this given that she remains ambulatory. Umberto Garcia MD Outside Food Server, Vascular and Interventional Radiology Pager [phone] ESSION SUPERVISOR documented in this encounter Plan of Treatment Not on file documented as of this encounter Visit Diagnoses Not on filedocumented in this encounter Care Teams Dry Boss Relationship Specialty Start Date End Date Emmanuel Ornelas MD PCP - General Obstetrics and Gynecology 11/29/2208/20 documented as of this encounter
--- OUTSIDE RECORDS SUMMARY | 2024-04-26 21:23 | XMS_ITS | Encounter Summary ---
Author Organization [facility] Address [address] [place] [address] Phone Care Team Providers Care Axle Polisher Name Role Phone Emmanuel Ornelas MD Primary Care Provider [phone] [phone] Reason for Visit * Reason Onset Date Comments Pre Cert 12/20/2022 Encounter Details Date Type Department Care Team (Late st Contact Info) Description 12/20/2022 Telephone [facility] Radiology, Interventional Radiology [address] [place] [address] Becky Olivo, YANET Pre Cert Social History Tobacco Use Types Packs/Day Years [...] on file Legal Sex Female 7:09 AM INTERNATIONAL REPRESENTATIVE Gender Identity Female 10/24/2023 9:52 AM CDT Sexual Orientation Straight 10/24/2023 9: 52 AM CDT documented as of this encounter Miscellaneous Notes * Telephone Encounter - Becky Olivo RN - 12/21/2022 7:44 AM CDT Recd fax No auth needed Ref [id number] * Telephone Encounter - Becky Olivo RN - 12/20/2022 12:06 PM CDT Precert initiated per insurance website [place] CPT: 93805 US VEIN DUPLEX LOWER EXTREMITY LEFT LIMITED, UNILATERAL 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 documented in this encounter Plan of Treatment Not on file documented as of this encounter Visit Diagnoses Not on filedocumented in this encounter Care Teams Axle Polisher Relationship Specialty Start Date End Date Emmanuel Ornelas MD PCP - General Obstetrics and Gynecology 11/29/2208/20 documented as of this encounter
--- OUTSIDE RECORDS SUMMARY | 2024-04-26 21:23 | XMS_ITS | Encounter Summary ---
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) [place] [address] [place] [id number] Phone: tel: fax: [address] [address] Referral ID Status Reason Start Date Expiration Date Visits Re quested Visits Authorized [id number] Closed 06/04/2023 07/03/2024 1 1 REPORTER * MRI/CAT/PET Scan (Routine) - Closed Specialty Diagnoses / Procedures Referred By Contac t Referred To Contact Radiology Diagnoses 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) Chronic migraine without aura without status migrainosus, not intractable Procedures MRI Brain [place] [address] [place] [id number] Phone: tel: fax: [address] [address] Referral ID Status Reason Start Date Expiration Date Visits Re quested Visits Authorized [id number] Closed 06/04/2023 07/03/2024 1 1 REPORTER Reason for Visit * Reason Comments Seizures Encounter Details Date Type Department Care Team (Latest Contact Info) Description 06/04/2023 11:30 AM LAW REPORTER Office Visit [facility] [address] [facility] [address] [address] [place] [address] [facility] [address] [place] [address] 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) (Primary Dx); Chronic migraine without aura without status migrainosus, not intractable Social History Tobacco [...] on file Legal Sex Female 7:09 AM LAW REPORTER Gender Identity Female 10/24/2023 9:52 AM CDT Sexual Orientation Straight 10/24/2023 9: 52 AM CDT documented as of this encounter Last Filed Vital Signs Vital Sign Reading Time Taken Comments Blood Pressure 120/70 06/04/2023 11:30 AM LAW REPORTER Pulse 98 06/04/2023 11:30 AM LAW REPORTER Temperature - - Respiratory Rate 18 06/04/2023 11:30 AM LAW REPORTER Oxygen Saturation 98% 06/04/2023 11:30 AM LAW REPORTER Inhaled Oxygen Concentration - - Weight 62.8 kg (138 lb 5.4 oz) 06/04/2023 11:30 AM LAW REPORTER Height 165.1 cm (5' 5 ) 06/04/2023 11:30 AM LAW REPORTER Body Mass Index 23.02 06/04/2023 11:30 AM LAW REPORTER documented in this encounter Progress Notes * Hilario Lundberg II, MD - 06/04/2023 11:30 AM CST [facility] Neurology Sahra Parks CONSULTATION 06/04/2023 OV: Consultation at the request of Dr. Ornelas for an opinion regarding headaches and seizures. I have personally taken a history, examined the patient and determined the assessment and plan as outlined below. Chief Complaint. Chief Complaint Patient presents with Seizures HPI. Patient is a 42 y.o. female patient of Dr. Emmanuel Cartwright This patient was seen for evaluation of seizures and headaches. The patient was a previous patient of Dr. Amor a neurologist in [place] who has since retired. In addition the patient was recently seen this past April by Dr. David Alicea for the same problem of seizures and headaches. I have reviewed her note. The patient reportedly had seizures a child but did not receive anticonvulsant therapy until she was 18 years of age. Prior to her seizures she reports that there is a funny smell or funny feeling. Some of her seizures occurred during the night. She can wake up with a swollen tongue.She indicates that her last seizure was 4 months ago. She is currently on topiramate 100 mg b.i.d. that helps with her seizure control and her migraine headaches.She is on chronic anticoagulation with Xarelto for her DVT. She indicates that as far as her migraines in concerns she used to have 4-5 migraines per week but this has improved since starting on the topiramate. She is no longer on lamotrigine. The patient reported that she would prefer to be seen in the [facility] [place] there her place of residence in [facility] she lives in a nursing facility for the past year. Past Medical History: Diagnosis Date Cellulitis Cellulitis - (Added by TW Conv) The patient has a history of deep venous thrombosis and systemic lupus erythematosus. She is on chronic anticoagulation. The patient has a history of depression anxiety PTSD and ADHD. She has a history of chronic migraine as well as seizure disorder. The patient has a history of thyroid disease hypertension and dyslipidemia. History reviewed. No pertinent surgical history. HOME MEDICATIONS : ALPRAZolam (XANAX) 1 mg tablet buPROPion SR (WELLBUTRIN SR) 150 mg 12 hr tablet buPROPion XL (WELLBUTRIN XL) 150 mg 24 hr tablet cetirizine (ZyrTEC) 10 mg tablet cloNIDine (CATAPRES) 0.2 mg tablet diazePAM (VALIUM) 5 mg tablet Focalin XR 20 mg 24 hr capsule HYDROcodone-acetaminophen (NORCO) 7.5-325 mg per tablet lamoTRIgine (LaMICtal) 25 mg tablet levothyroxine (SYNTHROID) 175 mcg tablet multivitamin tablet topiramate (TOPAMAX) 100 mg tablet acetaminophen-codeine (TYLENOL with CODEINE #3) 300-30 mg per tablet kbvmpicngz-kskgpuyazplvv-hpwruhgi (ESGIC) 50-325-40 mg per tablet calcium carbonate (TUMS) 500 mg (200 mg elemental calcium) chewable tablet clopidogreL (PLAVIX) 75 mg tablet cyanocobalamin (Vitamin B-12) 1,000 mcg/mL injection docusate sodium (COLACE) 100 mg capsule fluticasone propionate (FLONASE) 50 mcg/actuation nasal spray hydrOXYzine (ATARAX) 50 mg tablet hydrOXYzine (VISTARIL) 50 mg capsule lidocaine (LIDODERM) 5 % Linzess 145 mcg capsule meloxicam (MOBIC) 7.5 mg tablet metoclopramide (REGLAN) 5 mg tablet naltrexone (DEPADE) 50 mg tablet nicotine (NICODERM CQ) 14 mg ondansetron ODT (ZOFRAN-ODT) 8 mg disintegrating tablet polyethylene glycol (MIRALAX) 17 gram/dose bulk powder rivaroxaban (XARELTO) 20 mg tablet venlafaxine XR (EFFEXOR-XR) 37.5 mg 24 hr capsule ziprasidone (GEODON) 40 mg capsule Allergies Allergen Reactions Morphine Swelling, Anaphylaxis and Unknown Throat swelling Sulfa (Sulfonamide Antibiotics) Nausea And Vomiting, Rash, Vomiting and Nausea only Reaction: Vomiting, Ciprofloxacin Nausea only and Vomiting Reaction: Nausea, Vomiting, Iodinated Contrast Media Unknown Latex Unknown rash Magnesium Salicylate Unknown Patient stated that after administration she felt like she was having an anxiety attack and got very overheated Iodine Other (See comments) Social History Tobacco Use Smoking status: Every Day Packs/day: .5 Types: Cigarettes Smokeless tobacco: Never Substance and Sexual Activity Drug use: Never Sexual activity: None Alcohol Use: Not on file The patient denies the abuse of alcohol and other illicit substances. Family history: The patient's mother has hypertension hepatitis C and asthma. A sister has ovarian cyst there is breast cancer in the maternal grandmother Review of Systems Constitutional: Negative for chills, decreased appetite, diaphoresis, fever, malaise/fatigue, nightsweats, weight gain and weight loss. HENT: Negative for congestion, hearing loss, hoarse voice, nosebleeds, sore throat and tinnitus. Eyes: Negative for blurred vision, double vision and visual halos. Cardiovascular: Negative for chest pain, claudication, dyspnea on exertion, irregular heartbeat, near-syncope, palpitations and syncope. Respiratory: Negative for cough, shortness of breath, sleep disturbances due to breathing and snoring. Endocrine: Negative for cold intolerance, heat intolerance, polydipsia, polyphagia and polyuria. Hematologic/Lymphatic: Negative for adenopathy and bleeding problem. Does not bruise/bleed easily. Skin: Negative for rash. Musculoskeletal: Negative for back pain, falls, joint pain, joint swelling, muscle cramps, muscle weakness, myalgias, neck pain and stiffness. Gastrointestinal: Negative for abdominal pain, bowel incontinence, constipation, diarrhea, dysphagia, jaundice, nausea and vomiting. Genitourinary: Negative for bladder incontinence, decreased libido, dysuria, flank pain, frequency,hematuria, hesitancy and incomplete emptying. Neurological: Positive for headaches. Negative for aphonia, brief paralysis, difficulty with concentration, disturbances in coordination, excessive daytime sleepiness, dizziness, focal weakness, light-headedness, loss of balance, numbness, paresthesias, seizures, sensory change, tremors, vertigo and weakness. Psychiatric/Behavioral: Positive for depression and memory loss. Negative for altered mental status, hallucinations, substance abuse and suicidal ideas. The patient is nervous/anxious. The patient does not have insomnia. Allergic/Immunologic: Negative for environmental allergies and HIV exposure. Physical Exam Vitals reviewed. Constitutional: Appearance: Normal appearance. She is well-developed. HENT: Head: Normocephalic and atraumatic. Nose: Nose normal. Eyes: Extraocular Movements: Extraocular movements intact and EOM normal. Conjunctiva/sclera: Conjunctivae normal. Pupils: Pupils are equal, round, and reactive to light. Cardiovascular: Rate and Rhythm: Normal rate and regular rhythm. Heart sounds: Normal heart sounds. Pulmonary: Effort: Pulmonary effort is normal. Abdominal: General: Bowel sounds are normal. Palpations: Abdomen is soft. Musculoskeletal: Cervical back: Normal range of motion and neck supple. Right lower leg: No edema. Left lower leg: No edema. Skin: General: Skin is warm. Findings: No rash. Neurological: Mental Status: She is alert and oriented to person, place, and time. Motor: Motor strength is normal. Coordination: Gjupvj-Ruky-Pwhgqm Test normal. Gait: Gait is intact. Deep Tendon Reflexes: Reflex Scores: Tricep reflexes are 2+ on the right side and 2+ on the left side. Bicep reflexes are 2+ on the right side and 2+ on the left side. Brachioradialis reflexes are 2+ on the right side and 2+ on the left side. Patellar reflexes are 2+ on the right side and 2+ on the left side. Achilles reflexes are 2+ on the right side and 2+ on the left side. Psychiatric: Speech: Speech normal. Neurologic Exam Mental Status Oriented to person, place, and time. Oriented to person. Oriented to place. Oriented to city and area. Disoriented to day. Oriented to year, month, date and season. Registration: recalls 3 of 3 objects. Recall at 5 minutes: recalls 2 of 3 objects. Attention: normal. Concentration: normal. Speech: speech is normal Level of consciousness: alert Knowledge: good and consistent with education. Normal comprehension. Cranial Nerves CN II Visual cisneros full to confrontation. CN III, IV, Pupils are equal, round, and reactive to light. Extraocular motions are normal. Right pupil: Shape: regular. Reactivity: brisk. Left pupil: Shape: regular. Reactivity: brisk. CN III: no CN III palsy CN : no CN palsy Nystagmus: none Diplopia: none Ophthalmoparesis: none CN V Facial sensation intact. CN VII Facial expression full, symmetric. CN VIII CN VIII normal. Hearing: intact CN IX, X CN IX normal. CN X normal. Palate: asymmetric CN XI CN XI normal. Right sternocleidomastoid strength: normal Left sternocleidomastoid strength: normal CN XII CN XII normal. Tongue: not atrophic Motor Exam Muscle bulk: normal Overall muscle tone: normal Right arm pronator drift: absent Left arm pronator drift: absent Right leg tone: normal Left leg tone: normal Strength Strength 5/5 throughout. Sensory Exam Light touch normal. Gait, Coordination, and Reflexes Gait Gait: normal Coordination Finger to nose coordination: normal Tremor Resting tremor: absent Intention tremor: absent Action tremor: absent Reflexes Right brachioradialis: 2+ Left brachioradialis: 2+ Right biceps: 2+ Left biceps: 2+ Right triceps: 2+ Left triceps: 2+ Right patellar: 2+ Left patellar: 2+ Right achilles: 2+ Left achilles: 2+ Right plantar: normal Left plantar: normal Right ankle clonus: absent Left ankle clonus: absent Impression and Recommendations. 1. Partial epilepsy with impairment of consciousness 2. Chronic migraines The patient will be scheduled for an MRI of the brain and an EEG in the [facility]. As regards her current treatments and she is finding benefit from topiramate for both seizures and migraines this will be continued at the current dose of 100 mg b.i.d.. Review of her medication list indicates that she is on Wellbutrin which can lower the seizure threshold and cause seizures I recommend that she discuss with her primary care or psychiatrist to change Wellbutrin to an alternative antidepressant. She is aware of seizure precautions. She will be seen on follow-up after she completes the MRI of the brain and the EEG. All questions and concerns were answered. She is in agreement with the current treatment plan. 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 naltrexone (DEPADE) 50 mg tabletIndications :Prevention of Opioid Abuse Take 1 tablet (50 mg total) by mouth nightly 05/10/2023 Linzess 145 mcg capsule 04/17/2023 11/04/2023 clopidogreL (PLAVIX) 75 mg tablet Take 1 tablet (75 mg total) by mouth 10/19/2022 11/04/2023 Focalin XR 20 mg 24 hr capsule 05/21/2023 11/04/2023 added in this encounter Care Teams Wire Loop Machine Operator Relationship Specialty Start Date End Date Emmanuel Ornelas MD PCP - General Obstetrics and Gynecology 11/29/2208/20 documented as of this encounter
--- OUTSIDE RECORDS SUMMARY | 2024-04-26 21:23 | XMS_ITS | Encounter Summary ---
Author Organization [facility] Address [address] [place] [address] Phone Care Team Providers Care Examination Proctor Name Role Phone Emmanuel Ornelas MD Primary Care Provider [phone] Reason for Visit * Reason Onset Date Comments Additional Services Or Orders 01/29/2023 Encounter Details Date Type Department Care Team (Late st Contact Info) Description 01/29/2023 Telephone [facility] Radiology, Interventional Radiology [address] [facility] [address] [place] [address] Becky Olivo RN Additional Services Or Orders Social History Tobacco Use Types Packs/Day Years [...] on file Legal Sex Female 7:09 AM EXECUTIVE OFFICE MANAGER Gender Identity Female 10/24/2023 9:52 AM CDT Sexual Orientation Straight 10/24/2023 9: 52 AM CDT documented as of this encounter Miscellaneous Notes * Telephone Encounter - Becky Olivo RN - 01/29/2023 9:56 AM CDT Pt is in retirement They called to get verbal orders from appt Thursday 01/25 Advised Plan: - Cont Xarelto until end of Mar 2023. - can discontinue Plavix now - telehealth visit in beginning of Apr 2023 - if symptoms remain improved, will likely discontinue Xarelto to complete a 6 month course Fyi only, no further action needed documented in this encounter Plan of Treatment Not on file documented as of this encounter Visit Diagnoses Not on filedocumented in this encounter Care Teams Examination Proctor Relationship Specialty Start Date End Date Emmanuel Ornelas MD PCP - General Obstetrics and Gynecology 11/29/2208/20 documented as of this encounter
--- OUTSIDE RECORDS SUMMARY | 2024-04-26 21:23 | XMS_ITS | Encounter Summary ---
Author Organization [facility] Healthcare Address [address] [place] [address] Care Team Providers Care Coordinate Measuring Machine Operator Name Role Phone Emmanuel Ornelas MD Primary Care Provider [phone] Encounter Details Date Type Department Care Team (Late st Contact Info) Description 05/03/2023 Telephone [facility] Radiology [address] [place] [address] Mayra Brennan, RN Social History Tobacco Use [...] on file Legal Sex Female 7:09 AM SHOVELER Gender Identity Female 10/24/2023 9:52 AM CDT Sexual Orientation Straight 10/24/2023 9: 52 AM CDT documented as of this encounter Miscellaneous Notes * Telephone Encounter - Mayra Brennan, RN - 05/03/2023 11:[address] Garcia If her leg remains the same or better than it was when I saw her in January, she can discontinue her blood thinner. Then we can discuss her US on her next clinic visit. Called pt no answer. lvm ELER documented in this encounter Plan of Treatment Not on file documented as of this encounter Visit Diagnoses Not on filedocumented in this encounter Care Teams Coordinate Measuring Machine Operator Relationship Specialty Start Date End Date Emmanuel Ornelas MD PCP - General Obstetrics and Gynecology 11/29/2208/20 documented as of this encounter
--- OUTSIDE RECORDS SUMMARY | 2024-04-26 21:23 | XMS_ITS | Encounter Summary ---
Author Organization [facility] Healthcare Address [address] [place] [address] Care Team Providers Care Hydrodynamics Professor Name Role Phone Emmanuel Ornelas MD Primary Care Provider [phone] Reason for Referral * Diagnostic Imaging (Routine) - Closed Specialty Diagnoses / Procedures Referred By Contac t Referred To Contact Diagnoses Venous insufficiency of both lower extremities Procedures US Venous Reflux Bilateral Umberto Garcia MD [address] [address] Phone: tel: fax: [address] [address] Referral ID Status Reason Start Date Expiration Date Visits Re quested Visits Authorized [id number] Closed 03/11/2023 04/09/2024 99 99 IALTY PERSON Reason for Visit * Diagnostic Imaging (Routine) - Closed Specialty Diagnoses / Procedures Referred By Faiza bowden Referred To Contact Diagnoses Venous insufficiency of both lower extremities Procedures US Venous Reflux Bilateral Umberto Garcia MD [address] [address] Phone: tel: fax: [address] [address] Referral ID Status Reason Start Date Expiration Date Visits Re quested Visits Authorized [id number] Closed 03/11/2023 04/09/2024 99 99 Encounter Details Date Type Department Care Team (Latest Contact Info) Description 06/12/2023 8:14 AM SPECIALTY PERSON - 06/12/2023 11:59 PM SPECIALTY PERSON Hospital Encounter [facility] [address] [place] [address] Venous insufficiency of both lower extremities Discharge Disposition: Discharge to home or self [...] on file Legal Sex Female 7:09 AM SPECIALTY PERSON Gender Identity Female 10/24/2023 9:52 AM [...] 1 tablet (175 mcg total) by mouth paper twister tender before breakfast 30 tablet 3 naltrexone (DEPADE) [...] mg total) by mouth daily 11/04/19 24 cloNIDine (CATAPRES) 0.2 mg tablet [...] 1 tablet (50 mg total) by mouth paper twister tender before breakfast 30 tablet 3 11/04/19 24 [...] used daily) 510 g 3 11/04/19 24 rivaroxaban (XARELTO) 20 mg tablet Take 1 tablet (20 mg total) by mouth daily with breakfast 30 tablet 3 3 10/09/19 24 topiramate (TOPAMAX) 100 mg tablet 3 07/15/20 24 venlafaxine XR (EFFEXOR-XR) 37.5 mg 24 hr capsule 11/04/19 ziprasidone (GEODON) 40 mg capsule Take 1 capsule (40 mg total) by mouth 2 (two) times a day with meals 60 capsule 3 11/04/19 documented as of this encounter Discharge Disposition Disposition Code Departure Means Destination Discharge to home or self care documented in this encounter Plan of Treatment Not on file documented as of this encounter Procedures Procedure Name Priority Date/Time Associated Diagnosis Comments US VENOUS REFLUX BILATERAL Schedule Routine, Read Routine (OP Routine) 06/12/2023 9:50 AM SPECIALTY PERSON Venous insufficiency of both lower extremities documented in this encounter Results * US Venous Reflux Bilateral (06/12/2023 9:50 AM SPECIALTY PERSON) Anatomical Region Laterality Modality Vascular Bilateral Ultrasound 06/12/2023 10:2 4 AM SPECIALTY PERSON Impressions 06/12/2023 10:24 AM SPECIALTY PERSON 1. There is no evidence of saphenous vein reflux in either lower extremity by this exam. Electronically signed by: Nitesh Galo MD Narrative 06/12/2023 10:24 AM SPECIALTY PERSON Reflux Study DATE: 06/12/2023 9:00 AM EXAM: Bilateral lower extremity venous reflux exam INDICATION: History of deep venous thrombosis COMPARISON: None FINDINGS: RIGHT GREAT SAPHENOUS VEIN: It measures 4.9mm at the junction, 2.7mm at the mid thigh, 1.6mm at the knee, and 1.5mm at the mid calf. Reflux is not seen in these segments. Thigh perforators not seen. Calf perforators not seen. Right small saphenous vein measures 2.1 mm and reflux was not seen. LEFT GREAT SAPHENOUS VEIN: It measures 4.3mm at the junction, 2.1mm at the mid thigh. 1.6mm at the knee, and 0.8mm at the mid calf. Reflux is not seen in these segments. Thigh perforators not seen. Calf perforators not seen. Left small saphenous vein measures mm and reflux was not seen. Deep veins are competent and are compressible. INCIDENTAL FINDINGS: Procedure Note Nitesh Galo MD - 06/12/2023 Reflux Study DATE: 06/12/2023 9:00 AM EXAM: Bilateral lower extremity venous reflux exam INDICATION: History of deep venous thrombosis COMPARISON: None FINDINGS: RIGHT GREAT SAPHENOUS VEIN: It measures 4.9mm at the junction, 2.7mm at the mid thigh, 1.6mm at the knee, and 1.5mm at the mid calf. Reflux is not seen in these segments. Thigh perforators not seen. Calf perforators not seen. Right small saphenous vein measures 2.1 mm and reflux was not seen. LEFT GREAT SAPHENOUS VEIN: It measures 4.3mm at the junction, 2.1mm at the mid thigh. 1.6mm at the knee, and 0.8mm at the mid calf. Reflux is not seen in these segments. Thigh perforators not seen. Calf perforators not seen. Left small saphenous vein measures mm and reflux was not seen. Deep veins are competent and are compressible. INCIDENTAL FINDINGS: IMPRESSION: 1. There is no evidence of saphenous vein reflux in either lower extremity by this exam. Electronically signed by: Nitesh Galo MD Umberto Garcia MD IMG US PROCEDURES Final Result documented in this encounter Visit Diagnoses Diagnosis Venous insufficiency of both lower extremities documented in this encounter Care Teams Hydrodynamics Professor Relationship Specialty Start Date End Date Emmanuel Ornelas MD PCP - General Obstetrics and Gynecology 11/29/2208/20 documented as of this encounter
--- OUTSIDE RECORDS SUMMARY | 2024-04-26 21:23 | XMS_ITS | Encounter Summary ---
Author Organization [facility] Healthcare Address [address] [place] [address] Care Team Providers Care Finished Cloth Examiner Name Role Phone Emmanuel Ornelas MD Primary Care Provider [phone] [phone] Reason for Referral * Diagnostic Imaging (Routine) - Closed Specialty Diagnoses / Procedures Referred By Faiza bowden Referred To Contact Diagnoses Fibroids Procedures US Pelvis Complete Dory Rosario MD [address] [facility] [address] [place] [address] Phone: tel: fax: [address] [phone] Referral ID Status Reason Start Date Expiration Date Visits Re quested Visits Authorized [id number] Closed 01/07/2023 02/06/2024 1 1 Reason for Visit * Diagnostic Imaging (Routine) - Closed Specialty Diagnoses / Procedures Referred By Faiza bowden Referred To Contact Diagnoses Fibroids Procedures US Pelvis Complete Dory Rosario MD [address] [facility] [place] [address] [place] [address] Phone: tel: fax: [address] [phone] Referral ID Status Reason Start Date Expiration Date Visits Re quested Visits Authorized [id number] Closed 01/07/2023 02/06/2024 1 1 Encounter Details Date Type Department Care Team (Latest Contact Info) Description 01/21/2023 1:36 PM CDT - 01/21/2023 11:59 PM CDT Hospital Encounter 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 Gender Identity Female 10/24/2023 9:52 AM CDT Sexual Orientation Straight 10/24/2023 9: 52 AM CDT documented as of this encounter Medications at Time of Discharge ALPRAZolam (XANAX) 1 mg tabletIndications:a nxiety Take 1 tablet (1 mg total) by mouth 3 (three) times a day as needed for anxiety 3 lamoTRIgine (LaMICtal) 150 mg tablet Take 1 tablet (150 mg total) by mouth daily On hold 3 levothyroxine (SYNTHROID) 175 mcg tablet Take 1 tablet (175 mcg total) by mouth finance officer before breakfast 30 tablet 3 Wellbutrin XL 300 mg 24 hr tabletIndications:A nxiety with Depression Take 1 tablet (300 mg total) by mouth nightly Half tablet 2 ibuprofen (ADVIL,MOTRIN) 800 mg tabletIndications:H ealthcare maintenance Take 1 tablet (800 mg total) by mouth every 6 (six) hours as needed for pain 30 tablet 3 02/07/20 23 acetaminophen-codei ne (TYLENOL with CODEINE #3) 300-30 [...] by mouth as needed 1 11/04/19 24 cloNIDine (CATAPRES) 0.2 mg tablet 11/04/19 24 clopidogreL (PLAVIX) 75 mg tablet Take 1 tablet (75 mg total) by mouth daily 30 tablet 3 01/26/20 23 clopidogreL (PLAVIX) 75 mg tablet Take 1 [...] a day as needed 1 11/04/19 24 hydrOXYzine (ATARAX) 50 mg tablet Take 1 tablet (50 mg total) by mouth finance officer before breakfast 30 tablet 3 11/04/19 24 hydrOXYzine (VISTARIL) 50 mg capsule 3 11/04/19 24 lamoTRIgine (LaMICtal) 25 mg tablet 11/04/19 24 lidocaine (LIDODERM) 5 % Place 1 patch on the skin daily Remove & discard patch within 12 hours or as directed by MD. 30 patch 1 11/15/19 24 lidocaine (LIDODERM) 5 % 3 11/04/19 24 metoclopramide (REGLAN) 5 mg tablet Take 1 tablet 3 times a day by oral route before meals. 3 11/04/19 24 multivitamin tabletIndications:V itamin Deficiency Prevention Take 1 tablet by mouth daily 30 tablet 3 11/04/19 24 nicotine (NICODERM CQ) 14 mg Apply 1 patch every day by transdermal route for 14 days. 11/04/19 ondansetron ODT (ZOFRAN-ODT) 8 mg disintegrating tablet [...] Name Priority Date/Time Associated Diagnosis Comments US PELVIS COMPLETE Schedule Routine, Read Routine (OP Routine) 01/21/2023 1:36 PM CDT Fibroids documented in this encounter Results * US Pelvis Complete (01/21/2023 1:36 PM CDT) Cul de Sac No free fluid visualized VIEWPOINT Endometrial Thickness 6.0 mm&millim eters VIEWPOINT Anatomical Region Laterality Modality Pelvis N/A Ultrasound 01/21/2023 1:49 PM CDT Impressions 01/21/2023 4:58 PM CDT 1- Normal size myomatous ??uterus2- Normal appearing ovaries with small follicles3- No adnexal masses are identified. Narrative Procedure Note Heron Baer MD - 01/21/2023 IMPRESSION: 1- Normal size myomatous uterus2- Normal appearing ovaries with smallfollicles3- No adnexal masses are identified. us Dory Rosario MD IMG US PROCEDURES Final Re sult documented in this encounter Visit Diagnoses Diagnosis Fibroids Leiomyoma of uterus, unspecified documented in this encounter Care Teams Finished Cloth Examiner Relationship Specialty Start Date End Date Emmanuel Ornelas MD PCP - General Obstetrics and Gynecology 11/29/2208/20 documented as of this encounter
--- OUTSIDE RECORDS SUMMARY | 2024-04-26 21:23 | XMS_ITS | Encounter Summary ---
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 She is agreeable to change telehealth visit to 10/09/23 at 2:00PM. Will send letter with information to [facility]. documented in this encounter Plan of Treatment Not on file documented as of this encounter Visit Diagnoses Not on filedocumented in this encounter Care Teams Estimator Printing Plate Making Relationship Specialty Start Date End Date Pierre Cisneros PA [address] [place] [address] PCP - General Internal Medicine 09/04/23 documented as of this encounter
--- OUTSIDE RECORDS SUMMARY | 2024-04-26 21:23 | XMS_ITS | Encounter Summary ---
Author Organization [facility] Healthcare Address [address] [place] [address] Care Team Providers Care Alodize Machine Operator Name Role Phone Emmanuel Ornelas MD Primary Care Provider [phone] Reason for Referral * Diagnostic Imaging (Routine) - Closed Specialty Diagnoses / Procedures Referred By Contac t Referred To Contact Diagnoses History of thrombosis Procedures US VEIN DUPLEX LOWER EXTREMITY LEFT LIMITED, UNILATERAL Umberto Garcia MD [address] [place] [address] Phone: tel: fax: [address] [phone] Referral ID Status Reason Start Date Expiration Date Visits Re quested Visits Authorized [id number] Closed 12/20/2022 01/19/2024 1 1 Reason for Visit * Diagnostic Imaging (Routine) - Closed Specialty Diagnoses / Procedures Referred By Contac t Referred To Contact Diagnoses History of thrombosis Procedures US VEIN DUPLEX LOWER EXTREMITY LEFT LIMITED, UNILATERAL Umberto Garcia MD [address] [place] [address] Phone: tel: fax: [address] [phone] Referral ID Status Reason Start Date Expiration Date Visits Re quested Visits Authorized [id number] Closed 12/20/2022 01/19/2024 1 1 Encounter Details Date Type Department Care Team (Latest Contact Info) Description 01/25/2023 9:44 AM CDT - 01/25/2023 11:59 PM CDT Hospital Encounter [facility] Vascular Lab [address] [place] [address] History of thrombosis Discharge Disposition: Discharge to home or self [...] on file 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 Gender Identity Female 10/24/2023 9:52 AM [...] 1 tablet (175 mcg total) by mouth personal companion before breakfast 30 tablet 3 Wellbutrin XL [...] 2 (two) times a day as needed 11/04/19 24 fluticasone propionate (FLONASE) 50 mcg/actuation nasal spray 11/04/19 24 HYDROcodone-acetami nophen (NORCO) 7.5-325 mg per tablet Take 1 tablet by mouth every 4 (four) hours as needed 11/04/19 24 hydrOXYzine (ATARAX) 50 mg tablet Take 1 tablet (50 mg total) by mouth personal companion before breakfast 30 tablet 3 11/04/19 24 hydrOXYzine (VISTARIL) 50 mg capsule 3 11/04/19 24 lamoTRIgine (LaMICtal) 25 mg tablet 11/04/19 24 lidocaine (LIDODERM) 5 % Place 1 patch on the skin daily Remove & discard patch within 12 hours or as directed by MD. 30 patch 1 11/15/19 24 lidocaine (LIDODERM) 5 % 3 11/04/19 24 meloxicam (MOBIC) 7.5 mg [...] Name Priority Date/Time Associated Diagnosis Comments US VEIN DUPLEX LOWER EXTREMITY LEFT LIMITED Schedule Routine, Read Routine (OP Routine) 01/25/2023 10:56 AM CDT History of thrombosis documented in this encounter Results * US VEIN DUPLEX LOWER EXTREMITY LEFT LIMITED, UNILATERAL (01/25/2023 10:56 AM CDT) Anatomical Region Laterality Modality Vascular Left Ultrasound 01/25/2023 4:45 PM CDT Impressions 01/25/2023 4:45 PM CDT 1. This study has no evidence of deep vein thrombosis in the left lower extremity. Electronically signed by: Nitesh Galo MD Narrative 01/25/2023 4:45 PM CDT DATE: 01/25/2023 10:15 AM EXAM: ??Venous duplex imaging of left lower extremity. INDICATION: Left leg pain and swelling. ??History of prior deep venous thrombosis. COMPARISON: None. The left common femoral vein, femoral vein, popliteal vein, peroneal veins and posterior tibial veins were all assessed for compressibility and patency. FINDINGS: See below: IMAGE QUALITY: Good. FILLING DEFECTS: There is no evidence of filling defects in the deep veins of the left lower extremity. COMPRESSIBILITY: Compressibility is normal. DOPPLER EVALUATION: Flow can ??be augmented and is phasic to respiration. REFLUX FLOW: None. INCIDENTAL FINDINGS: None. Procedure Note Nitesh Galo MD - 01/25/2023 DATE: 01/25/2023 10:15 AM EXAM: Venous duplex imaging of left lower extremity. INDICATION: Left leg pain and swelling. History of prior deep venous thrombosis. COMPARISON: None. The left common femoral vein, femoral vein, popliteal vein, peroneal veins and posterior tibial veins were all assessed for compressibility and patency. FINDINGS: See below: IMAGE QUALITY: Good. FILLING DEFECTS: There is no evidence of filling defects in the deep veins of the left lower extremity. COMPRESSIBILITY: Compressibility is normal. DOPPLER EVALUATION: Flow can be augmented and is phasic to respiration. REFLUX FLOW: None. INCIDENTAL FINDINGS: None. IMPRESSION: 1. This study has no evidence of deep vein thrombosis in the left lower extremity. Electronically signed by: Nitesh Galo MD us Umberto Garcia MD IMG US PROCEDURES Final Result documented in this encounter Visit Diagnoses Diagnosis History of thrombosis documented in this encounter Care Teams Alodize Machine Operator Relationship Specialty Start Date End Date Emmanuel Ornelas MD PCP - General Obstetrics and Gynecology 11/29/2208/20 documented as of this encounter
--- OUTSIDE RECORDS SUMMARY | 2024-04-26 21:23 | XMS_ITS | Encounter Summary ---
Author Organization [facility] Address [address] [place] [address] Phone Care Team Providers Care Fly Worker Name Role Phone Emmanuel Ornelas MD Primary Care Provider [phone] [phone] Encounter Details Date Type Department Care Team (Late st Contact Info) Description 04/01/2023 Telephone [facility] Radiology, Interventional Radiology [address] [facility] [address] [place] [address] Nga Pruitt CMA Social History [...] on file Legal Sex Female 7:09 AM CHIEF I DISPATCHER Gender Identity Female 10/24/2023 9:52 AM CDT Sexual Orientation Straight 10/24/2023 9: 52 AM CDT documented as of this encounter Miscellaneous Notes * Telephone Encounter - Nga Pruitt CMA - 04/01/2023 9:42 AM CST LMOM for the patient to verify the time and date of her US and appt with Dr. Garcia F I DISPATCHER documented in this encounter Plan of Treatment Not on file documented as of this encounter Visit Diagnoses Not on filedocumented in this encounter Care Teams Fly Worker Relationship Specialty Start Date End Date Emmanuel Ornelas MD PCP - General Obstetrics and Gynecology 11/29/2208/20 documented as of this encounter
--- OUTSIDE RECORDS SUMMARY | 2024-04-26 21:23 | XMS_ITS | Encounter Summary ---
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 She also wanted me to call her nurse and let them know it is ok for her to keep taking her blood thinner xarelto. She is currently at a nursing facility. Informed Dr. Garcia.Nurse [place] [phone]. ILE SCRAP SALVAGER documented in this encounter Plan of Treatment Not on file documented as of this encounter Visit Diagnoses Not on filedocumented in this encounter Care Teams Criminal Justice Program Director Relationship Specialty Start Date End Date Emmanuel Ornelas MD PCP - General Obstetrics and Gynecology 11/29/2208/20 documented as of this encounter
--- OUTSIDE RECORDS SUMMARY | 2024-04-26 21:23 | XMS_ITS | Encounter Summary ---
Author Organization [facility] Healthcare Address [address] 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 Patient has a follow up appt for 10/29 next plan of care Please advise * Telephone Encounter - Fern Strauss MA - 09/04/2023 8:41 AM CDT I spoke with the pt and relayed Dr Lundberg's message The pt states that she will get the Mri done at [facility] as soon as possible * Telephone Encounter - Fern Strauss MA - 09/03/2023 11:52 AM CDT I spoke with the pt and she states that she saw an window assembler And they told her it is not her retina. The pt states that the spots are big and that the window assembler told her to see a neurologist The pt wants to know what to do Dr Lundberg does not have any sooner appts than october * Telephone Encounter - Fern Strauss MA - 09/03/2023 11:03 AM CDT I spoke with the pt and relayed Dr Lundberg's message The pt states that has been seeing spots the pt states that they are not floaters The pt would like to have the results of the EEg. The pt states that she cannot wait till her appt in October 2023 * Telephone Encounter - Fern Strauss MA - 08/26/2023 2:28 PM CDT The pt called and states that the mri has been denied and wants to know what her next step is The pt sates that she received the eeg report and has questions * Telephone Encounter - Laila Edwards - 08/20/2023 10:47 AM CDT S/w [place] [phone] called to verify when the MRI Rolf was ordered, patient filed a grievous stating that the MRI was not submitted to insurance company in time for her appointment. * Telephone Encounter - Ines Reyes - 08/19/2023 11:32 AM CDT Received fax from [facility] denying the MRI of the brain. Scanned the information into the system. Reason for the denial no failed physician prescribed medication . * Telephone Encounter - Ke Ag - 08/15/2023 3:21 PM CDT Peer to Peer needed for MRI. Dr. Lundberg is on vacation. Contacted the covering physician office to see if they could do it but recommend this wait until Dr. Lundberg return. test desk trouble locator will inform the to patient. documented in this encounter Plan of Treatment Not on file documented as of this encounter Visit Diagnoses Not on filedocumented in this encounter Care Teams Airline Customer Service Agent Relationship Specialty Start Date End Date Emmanuel Ornelas MD PCP - General Obstetrics and Gynecology 11/29/2208/20 Pierre Cisneros PA [address] [place] [address] PCP - General Internal Medicine 09/04/23 documented as of this encounter
--- OUTSIDE RECORDS SUMMARY | 2024-04-26 21:23 | XMS_ITS | Encounter Summary ---
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 Faxed encounter notes from Dr. Garcia's visit on 11/29 with OK to hold Xarelto and Plavix for nasal septum surgery. documented in this encounter Plan of Treatment Not on file documented as of this encounter Visit Diagnoses Not on filedocumented in this encounter Care Teams Production Control Coordinator Relationship Specialty Start Date End Date Emmanuel Ornelas MD PCP - General Obstetrics and Gynecology 11/29/2208/20 documented as of this encounter
--- OUTSIDE RECORDS SUMMARY | 2024-04-26 21:23 | XMS_ITS | Encounter Summary ---
Author Organization [facility] Healthcare Address [address] [place] [address] Care Team Providers Care Vp Patient Name Role Phone Emmanuel Ornelas MD Primary Care Provider [phone] [phone] Reason for Referral * Diagnostic Imaging (Routine) - Closed Specialty Diagnoses / Procedures Referred By Faiza bowden Referred To Contact Diagnoses Fibroids Procedures US Pelvis Complete Dory Rosario MD [address] [facility] [address] [place] [address] Phone: tel: fax: [facility] [address] [place] [address] Referral ID Status Reason Start Date Expiration Date Visits Re quested Visits Authorized [id number] Closed 01/07/2023 02/06/2024 1 1 Reason for Visit * Reason Comments Fibroids Encounter Details Date Type Department Care Team (Late st Contact Info) Description 01/07/2023 1:45 PM CDT Office Visit Obstetrics and Gynecology Clinic [address] 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 Gender Identity Female 10/24/2023 9:52 AM CDT Sexual Orientation Straight 10/24/2023 9: 52 AM CDT documented as of this encounter Last Filed Vital Signs Vital Sign Reading Time Taken Comments Blood Pressure 117/79 01/07/2023 2:04 PM CDT Pulse 82 01/07/2023 2:04 PM CDT Temperature - - Respiratory Rate - - Oxygen Saturation 100% 01/07/2023 2:04 PM CDT Inhaled Oxygen Concentration - - Weight 63.9 kg (140 lb 14.4 oz) 01/07/2023 2:04 PM CDT Height 165.1 cm (5' 5 ) 01/07/2023 2:04 PM CDT Body Mass Index 23.45 01/07/2023 2:04 PM CDT documented in this encounter Ordered Prescriptions Prescription Sig Dispense Quantity Refills Last Filled Start Date End Date polyethylene glycol (MIRALAX) 17 gram/dose bulk powderIndications: Healthcare maintenance Take 17 g by mouth daily as needed (To be used daily) 510 g 01/07/2023 11/04/2023 ibuprofen (ADVIL,MOTRIN) 800 mg tabletIndications: Healthcare maintenance Take 1 tablet (800 mg total) by mouth every 6 (six) hours as needed for pain 30 tablet 01/07/2023 02/06/2023 documented in this encounter Progress Notes * Dory Rosario MD - 01/07/2023 1:45 PM CDT AGRICULTURE ENGINEER NEW VISIT Subjective: Sarha Parks is a 42 y.o. who presents for evaluation of fibroids . PMH significant for bipolar disorder, history of seizure disorder, hypothyroidism, hypertension, DVT in LLE. Report upcoming sinus surgery at [facility] in [place], [place] therefore she has discontinued several of her medications including plavix, lovenox, and ibuprofen. Has been experiencing worsening pelvic pain that occurs daily and causes her to double over . Lying down improves pain. Not using ibuprofen as per above. Bowel movements q3 days, currently using miralax and a stool softener. Currently unemployed and living in a rehab facility/detention . Last contraceptive was Depo-Provera in 05/2022. She has since discontinued this and denies being sexually active. Does not desire to resume control at this time. AGRICULTURE ENGINEER History Menses: regular, every 28 days, lasting 7 days, painful. LMP 12/14/22. Pap History: approximate date 10/17/22 and was normal. Reports history of abnormal pap when I was younger and a few years ago . Reports +colposcopy and cone biopsy when she was 16-17. When I informedher that we generally do not do Paps until the age of 21 so it would be odd to have had a colposcopy or cone biopsy, she reports still having both procedures. STD History: none Contraception: Nothing HRT: No history of HRT use OB History No obstetric history on file. Past Medical History: Diagnosis Date Cellulitis Cellulitis - (Added by TW Conv) No past surgical history on file. Current Outpatient Medications: buPROPion XL (WELLBUTRIN XL) 150 mg 24 hr tablet, Take 1 tablet (150 mg total) by mouth daily, Disp: 30 tablet, Rfl: 11 calcium carbonate (TUMS) 500 mg (200 mg elemental calcium) chewable tablet, Take 1 tablet/chew tab (500 mg total) by mouth as needed, Disp: , Rfl: cloNIDine (CATAPRES) 0.2 mg tablet, , Disp: , Rfl: ondansetron ODT (ZOFRAN-ODT) 8 mg disintegrating tablet, , Disp: , Rfl: topiramate (TOPAMAX) 100 mg tablet, , Disp: , Rfl: venlafaxine XR (EFFEXOR-XR) 37.5 mg 24 hr capsule, , Disp: , Rfl: acetaminophen-codeine (TYLENOL with CODEINE #3) 300-30 mg per tablet, TK 1 TO 2 TS PO Q 4 TO 6 H PRN, Disp: , Rfl: shnkzbvhrs-xediiywcjzzcl-rzbqwiyi (ESGIC) 50-325-40 mg per tablet, TK 1-2 TS PO Q 4-6 HOURS PRN, Disp: , Rfl: clopidogreL (PLAVIX) 75 mg tablet, Take 1 tablet (75 mg total) by mouth daily, Disp: 30 tablet, Rfl: 0 cyanocobalamin (Vitamin B-12) 1,000 mcg/mL injection, Inject 1 mL every month by intramuscular route., Disp: , Rfl: diazePAM (VALIUM) 5 mg tablet, Take 1 tablet (5 mg total) by mouth 2 (two) times a day, Disp: 30 tablet, Rfl: 0 docusate sodium (COLACE) 100 mg capsule, Take 1 capsule (100 mg total) by mouth 2 (two) times a dayas needed, Disp: , Rfl: ferrous sulfate 325 mg (65 mg of elemental iron) tablet, Take 1 tablet (325 mg total) by mouth nightly, Disp: 90 tablet, Rfl: 0 hydrOXYzine (ATARAX) 50 mg tablet, Take 1 tablet (50 mg total) by mouth lead data entry operator before breakfast, Disp: 30 tablet, Rfl: 0 lamoTRIgine (LaMICtal) 25 mg tablet, , Disp: , Rfl: levothyroxine (SYNTHROID) 175 mcg tablet, Take 1 tablet (175 mcg total) by mouth lead data entry operator before breakfast, Disp: 30 tablet, Rfl: 0 meloxicam (MOBIC) 7.5 mg tablet, TK 1 T PO WITH FOOD QD, Disp: , Rfl: nicotine (NICODERM CQ) 14 mg, Apply 1 patch every day by transdermal route for 14 days., Disp: , Rfl: polyethylene glycol (MIRALAX) 17 gram/dose powder, Take 17 g by mouth daily as needed, Disp: , Rfl: rivaroxaban (XARELTO) 20 mg tablet, Take 1 tablet (20 mg total) by mouth daily with breakfast, Disp: 30 tablet, Rfl: 3 ziprasidone (GEODON) 40 mg capsule, Take 1 capsule (40 mg total) by mouth 2 (two) times a day with meals, Disp: 60 capsule, Rfl: 0 Allergies Allergen Reactions Morphine Swelling Throat swelling Sulfa (Sulfonamide Antibiotics) Vomiting, Nausea And Vomiting and Rash Reaction: Vomiting, Ciprofloxacin Nausea only and Vomiting Reaction: Nausea, Vomiting, Latex Unknown rash Magnesium Salicylate Unknown Patient stated that after administration she felt like she was having an anxiety attack and got very overheated No family history on file. Social History Tobacco Use Smoking status: Every Day Packs/day: .5 Types: Cigarettes Smokeless tobacco: Never Substance and Sexual Activity Drug use: Never Sexual activity: None Alcohol Use: Not on file Objective: BP 117/79 Pulse 82 Ht 165.1 cm (5' 5 ) Wt 63.9 kg (140 lb 14.4 oz) LMP 12/14/2022 (Approximate) SpO2 100% BMI 23.45 kg/m?? Physical Exam General: NAD, mood appropriate Pulmonary: Non-labored Cardiovascular: Regular rate Abdomen: soft, tender to palpation in L suprapubic area, non-distended Extremities: Warm and well perfused GENITAL EXAM: External:normal appearing and no lesions Vagina: no lesions, no discharge, and good support Cervix: no lesions Uterus: not enlarged, non-tender, and moblie Adnexa: non-tender Support Services Rep present: yes Assessment/Plan: Sahra Parks is a 42 y.o. with significant for bipolar disorder, history of seizure disorder, hypothyroidism, hypertension, DVT in LLE. who presents for evaluation of fibroids . 1. Healthcare maintenance 2. Fibroids - Patient reports pelvic pain that occurs daily. Has not trialed any NSAIDs given upcoming sinus surgery. - Ultrasound at [facility] refers to uterine mass - Counseled on initiating NSAIDs after sinus surgery to help with pelvic pain and increasing miralax use to improve bowel movement frequency which may ease pelvic pain - Will touch base with patient after pelvic ultrasound results as per below - ibuprofen (ADVIL,MOTRIN) 800 mg tablet; Take 1 tablet (800 mg total) by mouth every 6 (six) hoursas needed for pain Dispense: 30 tablet; Refill: 0 - polyethylene glycol (MIRALAX) 17 gram/dose bulk powder; Take 17 g by mouth daily as needed (To beused daily) Dispense: 510 g; Refill: 0 - US Pelvis Complete; Future Patient seen and discussed with Dr. Mala Rosario MD Cosigned by Alisa Medeiros MD at 01/11/2023 10:01 AM CDT Associated attestation - Alisa Medeiros MD - 01/11/2023 10:01 AM CDT I have seen and examined the patient. I agree with the findings and plan of care as documented in the resident/fellow's note. Alisa Medeiros MD documented in this encounter Plan of Treatment Not on file documented as of this encounter Results * US Pelvis Complete [...] with smallfollicles3- No adnexal masses are identified. Dory Rosario MD IMG US PROCEDURES Final Re sult documented in this encounter Visit Diagnoses Diagnosis Healthcare maintenance- Primary Fibroids Leiomyoma of uterus, unspecified Fibroids Leiomyoma of uterus, unspecified documented in this encounter Discontinued Medications Medication Sig Discontinue Reason Start Date End Da te meloxicam (MOBIC) 7.5 mg tablet TK 1 T PO WITH FOOD QD Drug interaction 01/07/2023 polyethylene glycol (MIRALAX) 17 gram/dose powder Take 17 g by mouth daily as needed Reorder 01/04/2011 01/07/2023 documented as of this encounter Care Teams Vp Patient Relationship Specialty Start Date End Date Emmanuel Ornelas MD PCP - General Obstetrics and Gynecology 11/29/2208/20 documented as of this encounter
--- OUTSIDE RECORDS SUMMARY | 2024-04-26 21:23 | XMS_ITS | Encounter Summary ---
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 JESS direct number left for call back. documented in this encounter Plan of Treatment Not on file documented as of this encounter Visit Diagnoses Not on filedocumented in this encounter Care Teams Groundman Relationship Specialty Start Date End Date Emmanuel Ornelas MD PCP - General Obstetrics and Gynecology 11/29/2208/20 documented as of this encounter
--- OUTSIDE RECORDS SUMMARY | 2024-04-26 21:23 | XMS_ITS | Encounter Summary ---
Author Organization [facility] Healthcare Address [address] [place] [address] Care Team Providers Care Refrigerator Assembler Name Role Phone Emmanuel Ornelas MD Primary Care Provider [phone] [phone] Reason for Visit * Reason Comments Fibroids Abnormal Uterine Bleeding Encounter Details Date Type Department Care Team (Late st Contact Info) Description 01/21/2023 3:15 PM CDT Office Visit Obstetrics and Gynecology Clinic [address] [facility] 3rd Floor [address] [place] [address] [place] [address] [place] [address] [address] [place] [address] Fibroids (Primary Dx); Healthcare maintenance Social History Tobacco Use Types Packs/Day Years [...] on file 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 Gender Identity Female 10/24/2023 9:52 AM CDT Sexual Orientation Straight 10/24/2023 9: 52 AM CDT documented as of this encounter Last Filed Vital Signs Vital Sign Reading Time Taken Comments Blood Pressure 111/66 01/21/2023 2:59 PM CDT Pulse 89 01/21/2023 2:59 PM CDT Temperature - - Respiratory Rate - - Oxygen Saturation 100% 01/21/2023 2:59 PM CDT Inhaled Oxygen Concentration - - Weight 61.7 kg (136 lb) 01/21/2023 2:59 PM CDT Height - - Body Mass Index 22.63 01/07/2023 2:04 PM CDT documented in this encounter Ordered Prescriptions Prescription Sig Dispense Quantity Refills Last Filled Start Date End Date multivitamin tabletIndications: Vitamin Deficiency Prevention Take 1 tablet by mouth daily 30 tablet 01/21/2023 11/04/2023 documented in this encounter Progress Notes * Dory Rosario MD - 01/21/2023 3:15 PM CDT CALENDER LET OFF OPERATOR NEW VISIT Subjective: Sahra Parks is a 42 y.o. who presents for evaluation of fibroids after pelvic ultrasound today. PMH significant for bipolar disorder, history of seizure disorder, hypothyroidism, hypertension, DVT in LLE. Since has not started high dose NSAIDs or miralax as prescribed at her last visit. She did undergo nasal surgery and reports having recovered from that. Today, she is interested in discussing contraception. Given her medical co- morbidities, namely history of DVT and hypertension, she is a candidate for progesterone only methods of contraception. She is seeing her Vascular MD on 01/25 and would like to defer initiation of contraception until after that visit. Reports that she is not currently sexually active. 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 LMP 12/14/22. Pap History: approximate date 10/17/22 and was normal. At 01/07 visit -- reports history of abnormal pap when I was younger and a few years ago . Reports +colposcopy and cone biopsy when she was 16-17. When I informed her that we generally do not do Paps until the age of 21 so it would be odd to have had a colposcopy or cone biopsy, she reports still having both procedures. STD History: none Contraception: Nothing HRT: No history of HRT use OB History 7 Para 3 Term 3 0 AB 4 Living SAB IAB Ectopic Multiple Live Births Past Medical History: Diagnosis Date Cellulitis Cellulitis - (Added by TW Conv) No past surgical history on file. Current Outpatient Medications: acetaminophen-codeine (TYLENOL with CODEINE #3) 300-30 mg per tablet, TK 1 TO 2 TS PO Q 4 TO 6 H PRN, Disp: , Rfl: buPROPion XL (WELLBUTRIN XL) 150 mg 24 hr tablet, Take 1 tablet (150 mg total) by mouth daily, Disp: 30 tablet, Rfl: 11 xerzuhqbhz-rzuyfkmtnghpx-lbpnzogp (ESGIC) 50-325-40 mg per tablet, TK 1-2 TS PO Q 4-6 HOURS PRN, Disp: , Rfl: calcium carbonate (TUMS) 500 mg (200 mg elemental calcium) chewable tablet, Take 1 tablet/chew tab (500 mg total) by mouth as needed, Disp: , Rfl: cloNIDine (CATAPRES) 0.2 mg tablet, , Disp: , Rfl: clopidogreL (PLAVIX) 75 mg [...] times a dayas needed, Disp: , Rfl: hydrOXYzine (ATARAX) 50 mg tablet, Take 1 tablet (50 mg total) by mouth public relations director before breakfast, Disp: 30 tablet, Rfl: 0 ibuprofen (ADVIL,MOTRIN) 800 mg tablet, Take 1 tablet (800 mg total) by mouth every 6 (six) hours as needed for pain, Disp: 30 tablet, Rfl: 0 lamoTRIgine (LaMICtal) 25 mg tablet, , Disp: , Rfl: levothyroxine (SYNTHROID) 175 mcg tablet, Take 1 tablet (175 mcg total) by mouth public relations director before breakfast, Disp: 30 tablet, Rfl: 0 multivitamin tablet, Take 1 tablet by mouth daily, Disp: 30 tablet, Rfl: 0 nicotine (NICODERM CQ) 14 mg, Apply 1 patch every day by transdermal route for 14 days., Disp: , Rfl: ondansetron ODT (ZOFRAN-ODT) 8 mg disintegrating tablet, , Disp: , Rfl: polyethylene glycol (MIRALAX) 17 gram/dose bulk powder, Take 17 g by mouth daily as needed (To be used daily), Disp: 510 g, Rfl: 0 rivaroxaban (XARELTO) 20 mg tablet, Take 1 tablet (20 mg total) by mouth daily with breakfast, Disp: 30 tablet, Rfl: 3 topiramate (TOPAMAX) 100 mg tablet, , Disp: , Rfl: venlafaxine XR (EFFEXOR-XR) 37.5 mg 24 hr capsule, , Disp: , Rfl: ziprasidone (GEODON) 40 mg capsule, Take 1 [...] Alcohol Use: Not on file Objective: BP 111/66 (BP Location: Left arm, Patient Position: Sitting) Pulse 89 Wt 61.7 kg (136 lb) LMP12/14/2022 (Approximate) SpO2 100% BMI 22.63 kg/m?? 01/21 Pelvic Ultrasound (prelim) Fibroid -- Size 20mm x 18mm x 19mm. Mean 18.8 mm. Posterior. Physical Exam General: NAD, mood appropriate Pulmonary: Non-labored Cardiovascular: Regular rate Abdomen: soft, non-distended Extremities: Warm and well perfused Assessment/Plan: Sahra Parks is a 42 y.o. with significant for bipolar disorder, history of seizure disorder, hypothyroidism, hypertension, DVT in LLE who presents for follow up of fibroids. #Fibroids - Follow up appointment following pelvic ultrasound which showed ~2cm posterior fibroid - Patient has not trialed NSAIDs or miralax (states she has not picked them up due to needing a paper rx -- printed today) - Surgical intervention is not indicated given size #Contraception - Interested in another form of contraception besides Depo-Provera - Patient is a candidate for progestin only methods given hx of DVT and HTN - She will let me know what MOC she chooses after discussion with Vascular MD on 01/25 #Multivitamin - Prescribed per patient request Patient seen and discussed with Dr. Mala Rosario MD Cosigned by Alisa Medeiros MD at 01/25/2023 2:59 PM CDT Associated attestation - Alisa Medeiros MD - 01/25/2023 2:59 PM CDT I have personally reviewed with Dr. Rosario the history, physical examination, laboratory studies and proposed management for Sahra Parks. Together we formulated a clinical diagnosis for each problem and developed a plan for therapy during or immediately after her clinic visit. I agree with the rec ommended plan of care. Alisa Medeiros MD documented in this encounter Plan of Treatment Not on file documented as of this encounter Visit Diagnoses Diagnosis Fibroids- Primary Leiomyoma of uterus, unspecified Healthcare maintenance documented in this encounter Care Teams Refrigerator Assembler Relationship Specialty Start Date End Date Emmanuel Ornelas MD PCP - General Obstetrics and Gynecology 11/29/2208/20 documented as of this encounter
--- OUTSIDE RECORDS SUMMARY | 2024-04-26 21:23 | XMS_ITS | Encounter Summary ---
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 Garcia: she has discontinued Xarelto and Plavix. We do not need to restart this given that she remains ambulatory This patient was planned to see me tomorrow 06/20 for clinic . But her US is normal so I called her to discuss this and discuss next steps. Nga Pruitt - can we cancel her appt tomorrow 06/20? She does not need to come in. Nga Shay - can we setup a follow up CT venogram abdomen/pelvis with iv contrast (dx = May Thurner syndrome) in October 2023? If she feels stable - telehealth is okay. If she is symptomatic -then in-person visit to follow. [place] scheduled CT venogram abd/pelvis 10/04/23 at 1200, CAM, arrival 1130, npo x 2 hours prior to imaging, prednisone protocol in place. Pt states she's not allergic to contrast and stated she doesn't need the prednisone RX . Pt has itordered in case she changes he mind and would like to take as directed. Pt verbalized understanding. Pt will reach out to [place] if symptomatic and requires in=person clinic visit. Otherwise will leave astelevisit 10/07/23 with SS. E STRIPPER AND CRUSHER documented in this encounter Plan of Treatment Not on file documented as of this encounter Visit Diagnoses Not on filedocumented in this encounter Care Teams Back Up Scan Coordinator Relationship Specialty Start Date End Date Emmanuel Ornelas MD PCP - General Obstetrics and Gynecology 11/29/2208/20 documented as of this encounter
--- OUTSIDE RECORDS SUMMARY | 2024-04-26 21:23 | XMS_ITS | Encounter Summary ---
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
--- OUTSIDE RECORDS SUMMARY | 2024-04-26 21:24 | XMS_ITS | Encounter Summary ---
Author Organization [facility] Healthcare Address [address] [place] [address] Care Team Providers Care Records Management Director Name Role Phone Clinic, Medicine X. 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 Gender Identity Female 10/24/2023 9:52 AM CDT Sexual Orientation Straight 10/24/2023 9: 52 AM CDT documented as of this encounter Medications at Time of Discharge levothyroxine (SYNTHROID) 175 mcg tablet Take 1 tablet (175 mcg total) by mouth information security director before breakfast 30 tablet 10/19/2022 Wellbutrin XL 300 mg 24 hr tabletIndications:An xiety with Depression Take 1 tablet (300 mg total) by mouth nightly Half tablet 05/30/2021 acetaminophen 500 mg capsuleIndications:F ever,Pain Take 2 capsules (1,000 mg total) by mouth every 6 (six) hours as needed for pain or headaches 30 tablet 10/18/2022 3 enoxaparin (LOVENOX) 60 mg/0.6 mL syringeIndications:V enous Thrombosis Inject 0.67 mL (66.7 mg total) under the skin every 12 (twelve) hours 40.2 mL 10/18/2022 3 ferrous sulfate 325 mg (65 mg of elemental iron) tabletIndications:Ir on Deficiency Anemia Take 1 tablet (325 mg total) by mouth nightly 90 tablet 10/18/2022 3 buPROPion XL (WELLBUTRIN XL) 150 mg 24 hr tablet Take 1 tablet (150 mg total) by mouth daily 30 tablet 11 10/19/2022 4 calcium carbonate (TUMS) 500 mg (200 mg elemental calcium) chewable tablet Take 1 tablet/chew tab (500 mg total) by mouth as needed 08/03/2010 4 clopidogreL (PLAVIX) 75 mg tablet Take 1 tablet (75 mg total) by mouth daily 30 tablet 10/19/2022 3 diazePAM (VALIUM) 5 mg tablet Take 1 tablet (5 mg total) by mouth 2 (two) times a day 30 tablet 10/18/2022 4 docusate sodium (COLACE) 100 mg capsule Take 1 capsule (100 mg total) by mouth 2 (two) times a day as needed 09/14/2010 4 hydrOXYzine (ATARAX) 50 mg tablet Take 1 tablet (50 mg total) by mouth information security director before breakfast 30 tablet 10/19/2022 4 lidocaine (LIDODERM) 5 % Place 1 patch on the skin daily Remove & discard patch within 12 hours or as directed by . 30 patch 11/01/2020 4 naproxen (NAPROSYN) 500 mg tabletIndications:An ti-inflammatory Take 1 tablet (500 mg total) by mouth 2 (two) times a day with meals 30 tablet 11/01/2020 3 ondansetron ODT (ZOFRAN-ODT) 8 mg disintegrating tablet Take 1 tablet (8 mg total) by mouth every 8 (eight) hours as needed for nausea or vomiting 30 tablet 09/15/2022 3 polyethylene glycol (MIRALAX) 17 gram/dose powder Take 17 g by mouth daily as needed 01/04/2011 3 ziprasidone (GEODON) 40 mg capsule Take 1 capsule (40 mg total) by mouth 2 (two) times a day with meals 60 capsule 10/18/2022 4 documented as of this encounter Discharge Disposition Disposition Code Departure Means Destination Discharge to home or self care documented in this encounter Plan of Treatment Not on file documented as of this encounter Visit Diagnoses Not on filedocumented in this encounter Care Teams Records Management Director Relationship Specialty Start Date End Date Clinic, Medicine [address] [place] [address] PCP - General 11/01/20 11/28/22 documented as of this encounter
--- OUTSIDE RECORDS SUMMARY | 2024-04-26 21:24 | XMS_ITS | Encounter Summary ---
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 [place] spoke with nurse at [facility] who stated they have order and medication is being received. documented in this encounter Plan of Treatment Not on file documented as of this encounter Visit Diagnoses Not on filedocumented in this encounter Care Teams Boat Buffer Plastic Relationship Specialty Start Date End Date Emmanuel Ornelas MD PCP - General Obstetrics and Gynecology 11/29/2208/20 documented as of this encounter
--- OUTSIDE RECORDS SUMMARY | 2024-04-26 21:24 | XMS_ITS | Encounter Summary ---
Author Organization [facility] Healthcare Address [address] [place] [address] Care Team Providers Care Auto Driver Name Role Phone Clinic, Medicine X. 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 NC spoke with pt who was able to clarify that pt's NH was able to assist with getting compression stockings. Pt has been measured by NH staff and able to provide them, but pt states cost is high. Pt states she will look for cheaper option. [place] direct number given for contact as needed. documented in this encounter Plan of Treatment Not on file documented as of this encounter Visit Diagnoses Not on filedocumented in this encounter Care Teams Auto Driver Relationship Specialty Start Date End Date [facility], Medicine [address] [place] [address] PCP - General 11/01/20 11/28/22 documented as of this encounter
--- OUTSIDE RECORDS SUMMARY | 2024-04-26 21:24 | XMS_ITS | Encounter Summary ---
Author Organization [facility] Address [address] [place] [address] Care Team Providers Care Fire Assistant Name Role Phone Clinic, Medicine X. Primary Care Provider [phone] Reason for Visit * Reason Comments Leg Swelling Reports swelling, pa in, and discoloration to LLE that began yesterday. Distal pulses palpable. Cap refill brisk. * Auth/Cert (Routine) Specialty Diagnoses / Procedures Referred By Contac t Referred To Contact Diagnoses Deep vein thrombosis (DVT) of left lower extremity (HCC) Procedures n/a Referral ID Status Reason Start Date Expiration Date Visits Re quested Visits Authorized [id number] 1 1 Encounter Details Date Type Department Care Team (Latest Contact Info) Description 10/15/2022 8:31 AM CDT - 10/18/2022 3:20 PM CDT Hospital Encounter [facility] [address] [place] [id number] Sal Jeffrey MD [address] [place] [address] Jodee Jalloh MD [address] [place] [address] Deep vein thrombosis (DVT) of left lower extremity (CMS/HCC) (HCC) (Primary Dx); Abnormal uterine bleeding Discharge Disposition: Discharge to SNF Social History Tobacco Use Types Packs/Day Years [...] on file Legal Sex Female 7:09 AM [employer] Gender Identity Female 10/24/2023 9:52 AM CDT Sexual Orientation Straight 10/24/2023 9: 52 AM CDT documented as of this encounter Last Filed Vital Signs Vital Sign Reading Time Taken Comments Blood Pressure 130/95 10/18/2022 5:27 AM CDT Pulse 90 10/18/2022 5:27 AM CDT Temperature 36.5 ??C (97.7 ??F) 10/18/2022 5:27 AM CD T Respiratory Rate 18 10/18/2022 5:27 AM CDT Oxygen Saturation 100% 10/18/2022 5:27 AM CDT Inhaled Oxygen Concentration - - Weight 66.2 kg (146 lb) 10/15/2022 10:30 PM CDT Height 162.6 cm (5' 4 ) 10/15/2022 10:30 PM CDT Body Mass Index 25.06 10/15/2022 10:30 PM CDT documented in this encounter Discharge Summaries * Sahra Orlando MD - 10/18/2022 2:07 PM CDT Inpatient Discharge Summary BRIEF OVERVIEW Admitting Provider: Sal Jeffrey MD Discharge Provider: Jodee Jalloh MD Primary Care Physician at Discharge: Clinic, Medicine X. (inactive) [phone] Admission Date: 10/15/2022 Discharge Date: 10/18/2022 Admission Location: [facility] Problems/Diagnoses: Principal Problem: Deep vein thrombosis (DVT) of left lower extremity (CMS/HCC) (HCC) Resolved Problems: No resolved hospital problems. DETAILS OF HOSPITAL STAY Presenting Problem/History of Present Illness: Mrs. 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 Patient states that she is ambulatory at baseline though less describes catatonic states intermittently that require her to be bed-bound. She denies recent travel/surgeries, known hematologic disorder in her family. Patient does take hormone therapy for unclear reason (contraception vs treatment?).She states swelling and pain began around her ankle and has since progressed more proximally and, at the time of eval in the ED, had progressed to now involve her buttock. She had also noticed intermittent paresthesias, weakness, and bluish discoloration of her leg. Noted to have severe pain with dorsiflexion. Imaging in the ED showed acute LLE DVT involving the iliofemoral, popliteal, and tibial systems for which IR was consulted. Patient underwent percutaneous mechanical thrombectomy with subsequent left common iliac stent deployment with successful clot burden reduction and anterograde venous drainage. Hospital Course: Sahra Parks is a 42 y.o. 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 She received a percutaneous mechanical thrombectomy with subsequent left common iliac stent deployment by IR on 10/16. 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 #Acute DVT s/p mechanical thrombectomy Intermittent swelling/pain in left foot for the last month. No surgeries/travel. Has significant psych history with reported intermittent catatonic spells that could contribute. Possibly related to May-Thurner lesion as well, now s/p stent. Patient reports possible cervical malignancy as well as ongoing OCP use as other etiology. Additionally found to have low PT/INR with normal PTT. Reports she t hinks her mother had issues with blood clots. Normal Protein C/S labs, no FVL/PT mutation found, noevidence of nephrotic syndrome. Other possible etiologies include OCPs and antiphospholipid syndrome. Obgyn consulted and advised stopping OCPs Lupus anticoagulant antibody was positive, but could be secondary to lovenox, will need to be repeated in 12 weeks. - Stop OCPs, follow up with reservations sales agent - Repeat Antiphospholipid syndrome labs in January. Anticoagulation plan: - Lovenox BID for 30 days, Plavix 75mg daily for 30 days (total duration of plavix is to be 90 days, but IR will change dosage at 30day post-op appointment). - Continue thigh high compression socks as tolerated - Will follow up with IR outpatient, 30 days after discharge. They plan to do CT venogram and Duplex US outpatient. #Uterine mass Patient states she has been diagnosed with cervical cancer in the past, and received a cervical cone. On OCPs prior to admission, does not follow with reservations sales agent currently. Pelvic US from 09/15/22 with 1.7 x 1.9 x 1.3 cm uterine mass posterior to the endometrial canal withmass effect displacing the endometrial canal anteriorly, ddx includes fibroid v s endometrial carcinoma. - Patient received endometrial biopsy, and STD testing. - Patient will need to follow up as an outpatient with reservations sales agent. Pathology results expected to be available in 7-10 days from 10/17. Nausea, resolved Patient has vomited multiple times since admission, believes it something she ate. She received compazine and zofran with resolution of symptoms. Headache/Eye Pain, ongoing Right sided eye pain that can radiate to rest of head. Previous note from 2010 from OSH describes symptoms as apart of headache disorder. - Received oxygen during admission for headache (no desaturations), states that it alleviated pain but no other symptoms consistent with cluster headache. - Follow up with neurology #SLE Chart reported history of lupus. Patient recollects being told she has it and reports skin discoloration. Patient's CIARRA was mildly positive 1:160, anti-dsDNA and GOVIND negative. No other symptoms consistent with lupus on admission. However, patient remains adamant that she does have lupus. Antiphospholipid labs demonstrated positive lupus anticoagulant antibody. - Repeat APLS labs in 12 weeks. #Psychosis Patient has unspecified psych disorder. Continue home medications of valium 5 BID, geodon 40 BID, Wellbutrin XL 150 daily, atarax 50 daily (home is BID, so can increase PRN). Lamotrigine level subtherapeutic at 0.5, so was not continued onadmission. Unclear if patient taking venlafaxine so also not continued on admission. - Will need to follow up with psychiatry regarding medication adjustment - normal QTc interval #Anemia Hgb 11.3, unclear baseline. Iron low at 24, Transferrin saturation at 10. - Started ferrous Sulfate 325mg once a day. Known to have heavy periods. - Repeat iron studies in 4 months. #Hypothyroidism - Cont home regimen levothyroxine 175mcg. Active Issues Requiring Follow-up: Anticoagulation - On Lovenox 60mg BID, and Plavix 75mg for 30 days. Follow up with IR for continuedrecommendations (needs 90 days total of anticoagulation) Uterine mass - mass found on CT A/P and ultrasound. Endometrial biopsy done to determine fibroid vsendometrial carcinoma. Follow up with reservations sales agent for path results. Medical Reconciliation - Unclear if patient should be taking lamotrigine or venlafaxine. She did not take either during this admission. Test Results Pending at Discharge: Pending Labs Order Current Status Pap and High Risk HPV, reflex to Genotyping In process Surgical pathology In process aPTT In process Operative Procedures Performed: Percutaneous mechanical thrombectomy with subsequent left common iliac stent deployment with successful clot burden reduction and anterograde venous drainage. Other Procedures: Endometrial biopsy Discharge Details Physical Exam at Discharge: Discharge Condition: fair Pulse: 90 Resp: 18 BP: 130/95 Temp: 36.5 ??C (97.7 ??F) Weight: 66.2 kg (146 lb) Pertinent Exam Findings at Discharge: Normal S1, S2, no murmurs, rubs or gallops. Lungs clear to auscultation. Discharge Disposition: Discharge to SNF Code Status at Discharge: Full Discharge Instructions: You were admitted for a serious clot in your lower left leg. We were able to remove the clot, with a procedure called a percutaneous mechanical thrombectomy. You also had a stent placed in your left common iliac vein. Although you had this procedure, you will need to take blood thinners for a period of time to make sure it does not return. - You need to take a 60mg injection of lovenox twice everyday for 30 days, and plavix 75mg once a day for 90 days. This is very important. - You have an outpatient appointment with interventional radiology in 30 days, who will discuss your blood thinners with you. They might make changes to your medication at this time. They will also plan to do more imaging at that time. Please call [phone] if you do not hear from interventionalradiology (IR) in 1 week about scheduling your appointment. - Remain active and on your feet. We tested for causes of clotting, and we found that your lupus anticoagulant antibody was positive.This does not mean you have lupus. This antibody can be present in those on the blood thinner you take. You need to have this re-tested in 12 weeks to see if this is a true positive result. You had an endometrial biopsy to evaluate the uterine mass you were seen to have on ultrasound. Results will be available in 7-10 days, but you need take an appointment to see an reservations sales agent and discuss the results. If you do not hear from them in 1 week, call [phone] to make an appointment. 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 You were not taking lamotrigine when you came in, and it is unclear whether you need to take venlafaxine. Do not take either until you follow up with your psychiatrist. In summary: - Take Lovenox 60mg twice a day for 30 days - Take plavix 75mg once a day for 30 days - Go to your interventional radiology appointment - Make an appointment with reservations sales agent - Wear your compression socks, stay active, and take your iron - See your primary care doctor - See your psychiatrist Discharge Medications: Current Medications TAKE these medications acetaminophen 500 mg capsule Take 2 capsules (1,000 mg total) by mouth every 6 (six) hours as needed for pain or headaches For: fever, pain buPROPion XL 150 mg 24 hr tablet Take 1 tablet (150 mg total) by mouth daily Commonly known as: WELLBUTRIN XL Start taking on: October 19, 2022 clopidogreL 75 mg tablet Take 1 tablet (75 mg total) by mouth daily Commonly known as: PLAVIX Start taking on: October 19, 2022 diazePAM 5 mg tablet Take 1 tablet (5 mg total) by mouth 2 (two) times a day Commonly known as: VALIUM enoxaparin 60 mg/0.6 mL syringe Inject 0.67 mL (66.7 mg total) under the skin every 12 (twelve) hours For: blood clot formation in vein Commonly known as: LOVENOX ferrous sulfate 325 mg (65 mg of elemental iron) tablet Take 1 tablet (325 mg total) by mouth nightly For: anemia from inadequate iron hydrOXYzine 50 mg tablet Take 1 tablet (50 mg total) by mouth caul dresser before breakfast Commonly known as: ATARAX Start taking on: October 19, 2022 levothyroxine 175 mcg tablet Take 1 tablet (175 mcg total) by mouth caul dresser before breakfast Commonly known as: SYNTHROID Start taking on: October 19, 2022 ziprasidone 40 mg capsule Take 1 capsule (40 mg total) by mouth 2 (two) times a day with meals Commonly known as: HOLLIS Outpatient Follow-Up: Contact Information for Follow-ups Clinic, Primary Care Medicine, Specialty: Family Medicine [address] [place] [id number] Next Steps: Follow up [facility] Next Steps: Follow up Questions: Please select the performing region: [facility] Please select the performing department: [facility] [place] [facility] # of visits: 1 Referral Status: Pending Authorization Cosigned by Ganga Blaek MD at 10/18/2022 2:53 PM CDT documented in this encounter Discharge Instructions * Discharge Instructions* Erik Vigil MD - 10/18/2022 12:51 PM CDT You were admitted for a serious clot in your lower left leg. We were able to remove the clot, with a procedure called a percutaneous mechanical thrombectomy. You also had a stent placed in your left common iliac vein. Although you had this procedure, you will need to take blood thinners for a period of time to make sure it does not return. - You need to take a 60mg injection of lovenox twice everyday for 30 days, and plavix 75mg once a day for 90 days. This is very important. - You have an outpatient appointment with interventional radiology in 30 days, who will discuss your blood thinners with you. They might make changes to your medication at this time. They will also plan to do more imaging at that time. Please call [phone] if you do not hear from IR in 1 week about scheduling your appointment. - Remain active and on your feet. We tested for causes of clotting, and we found that your lupus anticoagulant antibody was positive.This does not mean you have lupus. This antibody can be present in those on the blood thinner you take. You need to have this re-tested in 12 weeks to see if this is a true positive result. . You had an endometrial biopsy to evaluate the uterine mass you were seen to have on ultrasound. Results will be available in 7-10 days, but you need take an appointment to see an reservations sales agent and discuss the results. If you do not hear from them in 1 week, call [phone] to make an appointment. 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 You were not taking lamotrigine when you came in, and it is unclear whether you need to take venlafaxine. Do not take either until you follow up with your psychiatrist. In summary: - Take Lovenox 60mg twice a day for 30 days - Take plavix 75mg once a day for 30 days - Go to your interventional radiology appointment - Make an appointment with reservations sales agent - Wear your compression socks, stay active, and take your iron - See your primary care doctor - See your psychiatrist * Attachments The following attachments cannot be sent through Care Everywhere. * After Leg Thrombectomy (Ordinary Seaman) ([place]) documented in this encounter Medications at Time of Discharge levothyroxine (SYNTHROID) 175 mcg tablet Take 1 tablet (175 mcg total) by mouth caul dresser before breakfast 30 tablet 10/19/2022 Wellbutrin XL 300 mg 24 hr tabletIndication s:Anxiety with Depression Take 1 tablet (300 mg total) by mouth nightly Half tablet 05/30/2021 acetaminophen 500 mg capsuleIndicatio ns:Fever,Pain Take 2 capsules (1,000 mg total) by mouth every 6 (six) hours as needed for pain or headaches 30 tablet 10/18/2022 3 enoxaparin (LOVENOX) 60 mg/0.6 mL syringeIndicatio ns:Venous Thrombosis Inject 0.67 mL (66.7 mg total) under the skin every 12 (twelve) hours 40.2 mL 10/18/2022 3 ferrous sulfate 325 mg (65 mg of elemental iron) tabletIndication s:Iron Deficiency Anemia Take 1 tablet (325 mg [...] 1 tablet (50 mg total) by mouth caul dresser before breakfast 30 tablet 10/19/2022 4 lidocaine (LIDODERM) 5 % Place 1 patch on the skin daily Remove & discard patch within 12 hours or as directed by . 30 patch 11/01/2020 4 polyethylene glycol (MIRALAX) 17 gram/dose powder Take 17 g by mouth daily as needed 01/04/2011 3 ziprasidone (GEODON) 40 mg capsule Take 1 capsule (40 mg total) by mouth 2 (two) times a day with meals 60 capsule 10/18/2022 4 documented as of this encounter Ordered Prescriptions Prescription Sig Dispense Quantity Refills Last Filled Start Date End Date levothyroxine (SYNTHROID) 175 mcg tablet Take 1 tablet (175 mcg total) by mouth caul dresser before breakfast 30 tablet 10/19/2022 ferrous sulfate 325 mg (65 mg of elemental iron) tabletIndications: Iron Deficiency Anemia Take 1 tablet (325 mg total) by mouth nightly 90 tablet 10/18/2022 3 diazePAM (VALIUM) 5 mg tablet Take 1 tablet (5 mg total) by mouth 2 (two) times a day 30 tablet 10/18/2022 4 clopidogreL (PLAVIX) 75 mg tablet Take 1 tablet (75 mg total) by mouth daily 30 tablet 10/19/2022 3 acetaminophen 500 mg capsuleIndications :Fever,Pain Take 2 capsules (1,000 mg total) by mouth every 6 (six) hours as needed for pain or headaches 30 tablet 10/18/2022 3 buPROPion XL (WELLBUTRIN XL) 150 mg 24 hr tablet Take 1 tablet (150 mg total) by mouth daily 30 tablet 11 10/19/2022 4 enoxaparin (LOVENOX) 60 mg/0.6 mL syringeIndications :Venous Thrombosis Inject 0.67 mL (66.7 mg total) under the skin every 12 (twelve) hours 40.2 mL 10/18/2022 3 hydrOXYzine (ATARAX) 50 mg tablet Take 1 tablet (50 mg total) by mouth caul dresser before breakfast 30 tablet 10/19/2022 4 ziprasidone (GEODON) 40 mg capsule Take 1 capsule (40 mg total) by mouth 2 (two) times a day with meals 60 capsule 10/18/2022 4 documented in this encounter Discharge Disposition Disposition Code Departure Means Destination Comment s Discharge to SNF documented in this encounter Progress Notes * Natividad Pacheco, YANET - 10/18/2022 2:29 PM CDT 10/18/22 1425 Discharge Summary Chart reviewed For Medical Necessity Does patient have a planned readmission to hospital planned? No Discharge Disposition alf (detention) Specify Facility [facility] Facility Contact Number Denice Correa / [phone] Equipment/Provider Needs No Home Needs Identified Discharge Additional Assistance Does the patient need discharge transport arranged? Yes (Cab Voucher) Has discharge transport been arranged? No Post Discharge Care Provider Post Discharge Care Plan DC Summary has been faxed to next level of care provider (see Follow Up Providers) Per medical team, patient is medically stable for discharge at this time. [facility] Patient has been accepted back to [facility]. CM spoke with the patient/family, admissions, medical team, and RN regarding discharge planning, and all are agreeable to discharge. Post-acute care transfer packet completed and will be sent with the patient. RN provided with report number to nurses station. Mode of transport has been discussed with the patient and nursing staff. Patient will be provided acab voucher from [facility] to [facility]. All are agreeable to plan and understand their responsibilities to ensure the safe transfer. * Flor Cisneros OT - 10/18/2022 1:08 PM CDT Occupational Therapy Occupational Therapy Initial Assessment NOTE:This is a summary note for the gottlieb assessments completed during the evaluation session. For full details, review chart review for all flowsheets documented on by this Occupational Therapist on this date. Vital signs documented in vital signs flowsheet. Assessment Assessment Problem List: Decreased endurance, Decreased balance, Decreased functional mobility, Decreased ADL independence, Decreased IADL independence, Decreased upper extremity strength Barriers to Discharge: Current Mobility Status Barrier Comments: fall risk Plan Plan Plan: Plan of care initiated, If this is the last note, consider this the discharge summary OT Recommendation and Plan Recommendation/Plan OT Recommendation: Residential Facility Patient at high risk for: Falls, Readmission, Injury due to decreased ability to care for self Recommend SNF due to: Risk of injury at home, Unable to safely care for self in the home, Skilled therapy needed to address care for self in the home, Skilled therapy needed to address functional deficits OT Frequency during current admission: 2-3x/wk Comments: agreeable with OT POC Treatment/Interventions during current admission: ADL/IADL retraining, Balance Training, Functionalmobility training, Functional transfer training, Strengthening OT - Next Appointment: 10/22/22 OT - OK to Discharge: No OT Evaluation Complete: Yes General Information General Chart Reviewed: Yes Session Type: Evaluation OT Received On: 10/18/22 Safe Environment: Arm band checked, Patient found in supine Subjective: Agreeable to Therapy Family/Caregiver Present: No Precautions Precautions Precautions: Fall risk, Suicide Home Living Home Living Type of Home: Residential Facility (was previously at a senior care) Home Mobility Equipment-Available: None Home Mobility Equipment-Currently Using: None Additional Comments: no use of AD for mobility at baseline Prior Function Prior Function Level of [place]: Independent with ADLs, Independent functional transfers, Independent with ambulation Lives With: Alone Driving: No ADL Assistance: Independent Instrumental ADL (IADL) Assistance: Independent Fall within the last 6 months: No Activities of Daily Living Grooming Grooming: Where assessed: Standing at sink Grooming: Level of assistance: Standby Assist Grooming: Assistance with: Increased time to complete Toilet Transfers Toilet Transfer From: Bed Toilet Transfer Type: To and from Toilet Transfer to: Standard toilet Toilet Transfer Technique: Ambulating Toilet Transfer: Equipment: Wheeled walker Toilet Transfers: Contact guard Toilet Transfers Comments: safety Pain Pain Assessment Pain Assessment: No/denies pain Cognition Cognition Overall Cognitive Status: Impaired (per SBT) Arousal/Alertness: Alert, Appropriate responses to stimuli Attention Span: Appears intact Memory: Appears intact Current communication: Appears Intact Orientation : Oriented X4 (person, place, time, situation) Following Commands: Follows all commands and directions without difficulty Safety Judgment: Decreased awareness of need for safety Awareness of Errors: Assistance required to identify errors made Insight: Fully aware of deficits Problem Solving: Able to problem solve independently Compliance/Behavior: Easy to engage Perseveration: Not present 6 Clicks Daily Activity - 6 Clicks Putting on and taking off regular lower body clothing: A Little Bathing: A little Toileting: A little Putting on and taking off upper body clothing: None Personal Grooming: None Eating Meals: None Total Score (range 6-24): 21 Score Interpretation: 21 Balance Static Sitting Balance Static Sitting-Balance Support: Feet supported Static Sitting-Sitting Surface: Bed Static Sitting-Level of Assistance: Independent Dynamic Sitting Balance Dynamic Sitting-Balance Support: Feet supported Dynamic Sitting-Balance: Lateral lean, Forward lean, Reaching for objects Dynamic Sitting-Sitting Surface: Bed Dynamic Sitting-Level of Assistance: Independent Static Standing Balance Static Standing-Balance Support: Bilateral upper extremity supported Static Standing-Standing Surface: Floor Static Standing-Level of Assistance: Distant supervision Static Standing-Comment/# of Minutes: safety Dynamic Standing Balance Dynamic Standing-Balance Support: No upper extremity supported Dynamic Standing-Balance: Lateral lean, Forward lean Dynamic Standing-Standing Surface: Floor Dynamic Standing-Level of Assistance: Close supervision Dynamic Standing-Comments: safety Transfers Transfers Transfer: Yes Transfer 1 Transfer From 1: Sit Transfer Type 1: To and from Transfer to 1: Stand Technique 1: Sit to stand, Stand to sit Transfer Device 1: Wheeled walker Transfer Level of Assistance 1: Distant supervision Trials/Comments 1: safety Bed Mobility Bed Mobility Bed Mobility: Yes Bed Mobility 1 Bed Mobility From 1: Supine Bed Mobility Type 1: To Bed Mobility to 1: Edge of bed Level of Assistance 1: Modified Independent Bed Mobility Comments 1: BUEs for FP RUE Assessment RUE Assessment RUE Assessment: Within Functional Limits LUE Assessment LUE Assessment LUE Assessment: Within Functional Limits Safe Environment End of Session Safe Environment End of Therapy Session: Patient left supine in bed Other Comments Other Comments Comments: agreeable with OT POC OT Goals Multi-Disciplinary Problems (from Occupational Therapy) Active Problems Problem: Dressings Lower Extremities Start Date: 10/18/22 Goal Start Date Expected End Date End Date STG - Patient to complete lower body dressing with Mod I 10/18/22 10/25/22 -- Problem: Grooming Start Date: 10/18/22 Goal Start Date Expected End Date End Date STG - Patient will complete grooming with Mod I standing at sink 10/18/22 10/25/22 -- Problem: Transfers Start Date: 10/18/22 Goal Start Date Expected End Date End Date STG - Patient will perform toilet transfer with Mod I 10/18/22 10/25/22 -- Problem: OT Misc Start Date: 10/18/22 Goal Start Date Expected End Date End Date OT LTG - Pt will return to OF by time of d/c 10/18/22 12/18/22 -- * Sahra Orlando MD - 10/18/2022 9:29 AM CDT Medicine Firm Daily Progress Subjective SUBJECTIVE Interval History: Patient received endometrial biopsy afternoon of 10/17. Will contact mounted police officer for follow up recs Subjective: Patient doing well Considering alternative options rather than current senior care. Objective OBJECTIVE Scheduled Medications: buPROPion XL, 150 mg, oral, Daily clopidogreL, 75 mg, oral, Daily diazePAM, 5 mg, oral, BID enoxaparin, 1 mg/kg, subcutaneous, Q12H GERA ferrous sulfate, 65 mg of elemental iron, oral, Nightly hydrOXYzine, 50 mg, oral, Daily - 0600 levothyroxine, 175 mcg, oral, Daily - 0600 nicotine, 1 patch, transdermal, Daily sodium chloride 0.9%, 0.5-20 mL, intra-catheter, Q8H GERA ziprasidone, 40 mg, oral, BID with meals (bkfst, dinner) Continuous Medications: sodium chloride 0.9%, 30 mL/hr, Last Rate: Stopped (10/15/22 1756) PRN Medications: acetaminophen bisacodyl EC OR bisacodyL sodium chloride 0.9% [DISCONTINUED] ondansetron ODT OR ondansetron oxyCODONE polyethylene glycol prochlorperazine ramelteon sodium chloride 0.9% Vitals: Most Recent : Vitals: 10/18/22 0527 BP: 130/95 Pulse: 90 Resp: 18 Temp: 36.5 ??C (97.7 ??F) SpO2: 100% 24hr Min/Max: Temp Min: 36.3 ??C (97.3 ??F) Max: 36.5 ??C (97.7 ??F) Pulse Min: 76 Max: 94 BP Min: 123/80 Max: 130/95 Resp Min: 18 Max: 19 SpO2 Min: 96 % Max: 100 % I/O: I/O last 2 completed shifts: In: 200 [P.O.:200] Out: - No intake/output data recorded. Lab/Radiology/Diagnostic Review: Recent Results (from the past 24 hour(s)) CBC with auto differential Collection Time: 10/18/22 4:42 AM Result Value Ref Range WBC 5.5 3.8 - 9.9 K/cumm Hgb 10.2 (L) 11.9 - 15.5 g/dL Hct 31.0 (L) 35.6 - 45.5 % Plt 264 150 - 400 K/cumm MPV 9.0 (L) 9.1 - 12.3 fL RBC 3.48 (L) 3.90 - 5.20 M/cumm MCV 89.1 81.3 - 96.4 fL MCH 29.3 27.1 - 33.3 pg MCHC 32.9 32.3 - 35.7 g/dL RDW CV 12.6 11.1 - 14.9 % RDW SD 40.2 35.7 - 48.1 fL NRBC abs 0.00 0.00 - 0.01 K/cumm Comprehensive metabolic panel Collection Time: 10/18/22 4:42 AM Result Value Ref Range Sodium 142 135 - 145 mmol/L Potassium, pl 4.4 3.3 - 4.9 mmol/L Chloride 107 97 - 110 mmol/L CO2 27 22 - 32 mmol/L Anion gap 8 2 - 15 mmol/L BUN 11 6 - 25 mg/dL Creatinine 0.95 0.60 - 1.10 mg/dL Glucose 92 70 - 199 mg/dL Calcium 8.7 8.5 - 10.3 mg/dL Bilirubin, total <0.2 0.1 - 1.2 mg/dL Protein, pl 6.0 (L) 6.5 - 8.5 g/dL Albumin 3.4 (L) 3.5 - 5.0 g/dL Alk phos 47 40 - 130 Units/L ALT 11 7 - 45 Units/L AST 20 10 - 45 Units/L Magnesium Collection Time: 10/18/22 4:42 AM Result Value Ref Range Magnesium 1.9 1.4 - 2.5 mg/dL Differential, auto Collection Time: 10/18/22 4:42 AM Result Value Ref Range Neutrophil abs 1.7 1.7 - 6.5 K/cumm Imm gran abs 0.0 0.0 - 0.1 K/cumm Lymphocyte abs 2.7 0.8 - 3.3 K/cumm Monocyte abs 0.6 0.2 - 0.8 K/cumm Eosinophil abs 0.4 0.0 - 0.5 K/cumm Basophil abs 0.1 0.0 - 0.1 K/cumm Neutrophil pct 30.9 % Imm gran pct 0.5 % Lymphocyte pct 49.6 % Monocyte pct 10.8 % Eosinophil pct 7.3 % Basophil pct 0.9 % eGFR Collection Time: 10/18/22 4:42 AM Result Value Ref Range eGFR 77 (L) 90 - 130 mL/min/1.73 m2 I have reviewed the above laboratory results. Imaging Results: IR Percutaneous Thrombectomy Vein Left Result Date: 10/15/2022 1. Successful left lower extremity angiogram demonstrating acute thrombosis of the left common iliac, external iliac, and common femoral veins. 2. Successful percutaneous mechanical thrombectomy of the left iliofemoral system with marked clot burden reduction and improved antegrade venous drainage.3. Successful left common iliac vein self expandable stent deployment for the treatment of a May-Thurner lesion. PLAN: The patient will remain supine with both lower extremities flat 2 hours postprocedure. The patient should immediately have sequential compression devices (SCDs) placed on both legsto the level of the thigh to ensure good venous inflow and maintain stent patency. The patient shoul d be transitioned from a heparin drip to therapeutic Lovenox this evening. Furthermore, the patientshould be loaded with Plavix 300 mg once . She will begin Plavix 75 mg once daily thereafter. Interventional radiology will continue to follow. We will also plan for a follow up CT venogram with leftleg venous duplex US in 1 month with a clinic visit to assess her response to treatment. Dictated by: Dada Lopez M.D. The radiology attending physician has personally reviewed this study, and had reviewed and/or edited this written report and agrees with it. Electronically signed by: Umberto Garcia M.D. CT Head WO Contrast Result Date: 10/15/2022 No acute intracranial hemorrhage. Mild tortuosity of the right cervical internal carotid artery without significant stenosis of the neck vasculature. Dictated by: Codey Ortiz M.D. The radiology attending physician has personally reviewed this study, and had reviewed and/or edited this written report and agrees with it. Electronically signed by: Ramone Ortega M.D. CTA Neck W WO Contrast Result Date: 10/15/2022 No acute intracranial hemorrhage. Mild tortuosity of the right cervical internal carotid artery without significant stenosis of the neck vasculature. Dictated by: Codey Ortiz M.D. The radiology attending physician has personally reviewed this study, and had reviewed and/or edited this written report and agrees with it. Electronically signed by: Ramone Ortega M.D. CT Abdomen Pelvis W Contrast Result Date: 10/15/2022 1. Findings suggestive of left femoral and iliac deep vein thrombosis. Electronically signed by: Luis Hagan M.D. Assessment/Plan ASSESSMENT & PLAN Sahra Parks is a 42 y.o. female with PMH unspecified psychiatric illness (lives in [place]), GREEN disorder, ?seizure disorder, hypothyroidism, SLE, cervical mass, TUD p/w left leg pain/swelling that has been intermittent over the last month and worse the day ONLINE [facility]. S/p percutaneous mechanical thrombectomywith subsequent left common iliac stent deployment by IR on 10/16. 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 No surgeries/travel. Has significant psych history with reported intermittent catatonic spells that could contribute. Possibly related to May-Thurner lesion as well, now s/p stent. Patient reports possible cervical malignancy as well as ongoing OCP use as other etiology. Additionally found to have low PT/INR with normal PTT. Reports she thinks her mother had issues with blood clots. - Repeat INR in the AM; check Vit K level, Protein C/S, FVL/PT mutation; can consider APLS workup if SLE diagnosis is confirmed or hemolysis labs are positive - checked UA w/ prot/cr for nephrotic eval, was unremarkable - pain control: APAP 1g Q6, oxy 5 QID PRN; avoiding sedating medications given her psychiatric medications - IR following: therapeutic Lovenox, thigh/calf SCDs, Plavix load (10/15) with Plavix 75 daily for 30 days, at which point that dosage will need to be re- evaluated (will need 90 days total of anticoagulation) - Will be discharged on Lovenox and plavix, will need medications adjustment by IR at outpatient appointment in 30 days - Seen by PT/OT #Uterine mass Patient states she has been diagnosed with cervical cancer in the past, and received a cervical cone. 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 Pelvic US from 09/15/22 with 1.7 x 1.9 x 1.3 cm uterine mass posterior to the endometrial canal withmass effect displacing the endometrial canal anteriorly, ddx includes fibroid v s endometrial carcinoma. CT A/P performed as well, revealing presence of uterine mass. - Endometrial biopsy 10/17, follow up with supervisor small appliance assembly outpatient - Discontinue OCPs due to clot risk - Patient considering alternative contraception options, will follow up with supervisor small appliance assembly outpatient Nausea Patient has vomited multiple times since admission - Compazine and zofran Headache/Eye Pain Right sided eye pain that can radiate to rest of head. Previous note from 2010 from OSH describes symptoms as apart of headache disorder - Can remain on oxygen while in-patient, will d/c upon discharge - Follow up with neurology outpatient #SLE Chart reported history of lupus. Patient recollects being told she has it and reports skin discoloration. No serum testing in our system. - Positive lupus anticoagulant antibody, will need to be repeated in 12 weeks as an outpatient - CIARRA positive, 1:60 - anti-dsDNA, GOVIND both negative #Psychosis Unspecified psych disorder but requires senior care for living ([facility]). - cont home valium 5 BID, geodon 40 BID, Wellbutrin XL 150 daily, atarax 50 daily (home is BID, so can increase PRN) - Lamotrigene level found to be subtherapeutic, will need outpatient adjustment #Anemia Hgb 11.3, unclear baseline. MCV normal, normal RDW. Iron low at 24, Transferrin saturation at 10. - Started on 325 mg ferrous sulfate #Hypothyroidism - Cont home regimen levothyroxine 175mcg. PCP will need to follow up TSH/T4. Code Status: Full Code Diet: Adult Diet Regular DVT Prophylaxis: Lovenox Access: PIV Dispo: Back to [place] Sahra Orlando MD, PGY1 Cosigned by Ganga Blake MD at 10/19/2022 3:31 PM CDT Associated attestation - Ganga Blake MD - 10/19/2022 3:31 PM CDT Attending Documentation I have seen and examined the patient on 10/18/2022. I agree with the findings and plan of care as documented in the resident's/fellow's note. Supplementary Attestation The total encounter time on this service date was 30 minutes which was spent performing a [id number] encounter and personally completing the provider-level activities documented in the note. This includes time spent prior to the visit and after the visit in direct care of the patient. This time does not include time spent in any separately reportable services. Ganga Blake MD * Pb Swanson, PT - 10/18/2022 8:18 AM CDT Physical Therapy Physical Therapy Initial Assessment NOTE: This is a summary note for the gottlieb assessments completed during the evaluation session. For full details, review chart review for all flowsheets documented on by this physical therapist on thisdate. Vital signs documented in vital signs flowsheet. Assessment Assessment Prognosis: Good Problem List: Gait deviations, Decreased range of motion, Decreased endurance, Impaired balance Problem List Comments: PT Diagnosis: patient with acute LLE DVT s/p perc mechanical thrombectomy and L common iliac vein stenting results in above listed activity deficits and impairments which prevent full participation in home and community mobility Barriers to Discharge: Current Mobility Status Plan Plan Plan : Plan of care initiated, If this is the last note, consider this the discharge summary PT Recommendation and Plan Recommendation/Plan PT Recommendation/Plan: Residential Facility Patient at high risk for: Falls, Readmission, Injury due to reduced functional status, Injury due to balance deficits Recommend SNF due to: Risk of injury at home, Unable to safely care for self in the home, Skilled therapy needed to address care for self in the home, Skilled therapy needed to address functional deficits, Skilled therapy needed for patient to return to prior level of independence PT Frequency during current admission: 2-3x/wk PT Equipment Recommended: Wheeled walker (if discharged to senior care) PT - Next Appointment: 10/22/22 PT Evaluation Complete: Yes General Information General Chart Reviewed: Yes Session Type: Evaluation PT Received On: 10/18/22 Safe Environment: Arm band checked, Patient found in supine, Session completed bedside, Gait belt utilized for all out of bed mobility Subjective: Agreeable to Therapy Prior Function Prior Function Level of [place]: Independent with ADLs, Independent functional transfers, Independent with ambulation, Independent with homemaking with ambulation Lives With: Alone Driving: No Fall within the last 6 months: No Home Living Home Living Type of Home: Other (Comment) (senior care) Home Layout: One level Home Access: Level entry Home Mobility Equipment-Available: None Home Mobility Equipment-Currently Using: None Additional Comments: pt reports no use of assistive devices for mobility at baseline Precautions Precautions Precautions: Fall risk, Suicide Precaution Comments: PPE worn by PT: isolation mask + gloves Pain Pain Assessment Pain Assessment: 0-10 Pain Score: 6 Pain Type: Acute pain Pain Location: Leg Pain Orientation: Left Pain Descriptors: Aching, Sore Pain Frequency: Constant/continuous Pain Onset: Ongoing Pain Interventions: Repositioned, Physical Therapy, RN Notified Cognition Cognition Arousal/Alertness: Alert, Appropriate responses to stimuli Attention Span: Difficulty attending to directions Orientation : Oriented X4 (person, place, time, situation) Following Commands: Follows all commands and directions without difficulty Compliance/Behavior: Easy to engage 6 Clicks Basic Mobility - 6 Click How much difficulty does the patient have: Turning over in bed: A little How much difficulty does the patient currently have: Sitting down and standing up from a chair witharms?: A little How much difficulty does the patient have: Moving from lying on back to sitting on the side of the bed?: A little How much difficulty does the patient have: Moving to and from a bed to a chair including wheelchair?: A little How much help does the patient currently need: Walk in hospital room?: A little How much help from another person does the patient currently need: Climbing 3-5 steps with a railing?: A little Total 6 Click Score (range 6-24): 18 Score Interpretation: 18 Bed Mobility Bed Mobility Bed Mobility: Yes Bed Mobility 1 Bed Mobility From 1: Supine Bed Mobility Type 1: To and from Bed Mobility to 1: Edge of bed Level of Assistance 1: Distant Supervision Bed Mobility Comments 1: HOB elevated slightly Transfers Transfers Transfer: Yes Transfer 1 Transfer From 1: Sit Transfer Type 1: To and from Transfer to 1: Stand Technique 1: Sit to stand Transfer Device 1: Wheeled walker Transfer Level of Assistance 1: Distant supervision Trials/Comments 1: for safety Balance Ambulation Ambulation Ambulation: Yes Ambulation 1 Distance (ft) 1: 400 Surface 1: Level tile Device 1: Wheeled walker Assistance 1: Contact Guard Assist Gait: Requires assist with 1: Maintaining balance Gait: Requires verbal cues to 1: Use assistive device safely, Improve upright posture, Increase step length, Increase base of support, Pace activity Gait Deviations 1: Antalgic, Base of support - decreased, Mariely - decreased, Hip/knee flexion during swing phase - decreased, Heel strike - decreased, Stance time - decreased, Step length - decreased, Weight bearing through UE???s - increased Quality of Gait 1: asymmetric step length L > R, 2 point gait pattern Ambulation Comments 1: gait speed: 0.47 m/s per 10 MWT Stairs Stairs Stairs: Yes Stair Comments: patient negotiates x8 steps using bilateral handrails, step to pattern, contact guard assist for balance Curbs RLE Assessment RLE Assessment RLE Assessment: Within Functional Limits LLE Assessment LLE Assessment LLE Assessment: Exceptions to WFL LLE Comments: limited passive range of motion in all planes due to pain Strength LLE LLE Overall Strength: Deficits, Due to pain Equipment Used Safe Environment End of Session Safe Environment End of Therapy Session: Patient left supine in bed, RN notified, Call light withinreach, Overbed table within reach Other Comments PT Goals Multi-Disciplinary Problems (from Physical Therapy) Active Problems Problem: Mobility Start Date: 10/18/22 Goal Start Date Expected End Date End Date STG - Patient will ambulate 10/18/22 10/25/22 -- Goal Details: 500' LRD mod I Problem: Transfers Start Date: 10/18/22 Goal Start Date Expected End Date End Date STG - Patient will transfer sit to and from stand 10/18/22 10/25/22 -- Goal Details: ind * Dada Lopez MD - 10/17/2022 7:50 AM CDT Images from the original note were not included. Interventional Radiology Progress Note HPI: 42 yo F w/ acute LLE s/p perc mechanical thrombectomy and L common iliac vein stenting of May-Thurner lesion on 10/15. Interval History: NAEO. Afebrile, HDS. Patient continues to report improvement mobility in L foot. Ambulated to restroom, endorsed weakness but able to bear weight independently. Denies paresthesias.No bleeding complication from Lovenox or Plavix. Physical Exam: Temp: [36.2 ??C (97.2 ??F)-36.7 ??C (98.1 ??F)] 36.2 ??C (97.2 ??F) Pulse: [85-102] 85 Resp: [16-18] 16 BP: (110-119)/(61-75) 114/61 General: NAD, AOx4 CV: RRR Resp: Non-labored breathing, nml chest rise Ext: Patient donning compression stockings, unable to assess access site Labs: Hematology Lab History Latest Ref Rng & Units 09/14/2022 23:07 10/15/2022 09:12 10/16/2022 05:11 10/17/2022 04:52 Labs - Hematology WBC 3.8 - 9.9 K/cumm 7.0 7.8 5.3 5.4 Total Hb, POC 11.9 - 15.5 g/dL 12.4 11.3 9.3 9.3 Hct 35.6 - 45.5 % 35.9 34.1 28.3 28.7 Plt 150 - 400 K/cumm 271 251 208 220 Neutrophil abs 1.7 - 6.5 K/cumm 2.7 5.1 2.9 1.7 Lymphocytes, abs 0.8 - 3.3 K/cumm 3.4 1.7 1.6 2.7 Chem/LFT Lab History Latest Ref Rng & Units 09/14/2022 23:07 10/15/2022 09:12 10/16/2022 05:11 10/17/2022 04:52 Labs-Chem/LFT Sodium 135 - 145 mmol/L 136 135 134 142 Creatinine 0.60 - 1.10 mg/dL 1.02 0.92 0.97 0.84 Bilirubin, total 0.1 - 1.2 mg/dL <0.2 0.2 <0.2 AST 10 - 45 Units/L 15 22 16 ALT 7 - 45 Units/L 11 13 10 CrCl- Actual Body Weight (Cockcroft-Gault) 81.1 84.7 79.8 92.1 Lab Results Component Value Date INR 0.96 10/16/2022 INR 0.95 10/16/2022 INR 0.88 (L) 10/15/2022 Drain: Output by Drain (mL) 10/15/22 0700 - 10/15/22 1859 10/15/22 1900 - 10/16/22 0659 10/16/22 0700 - 10/16/22 1859 10/16/22 1900 - 10/17/22 0659 10/17/22 0700 - 10/17/22 0750 Patient has no LDAs of requested type attached. Micro: No results found for: MICROBIOLOGY Assessment/Plan: 42 yo F w/ acute LLE s/p perc mechanical thrombectomy and L common iliac vein stenting of May-Thurner lesion on 10/15. No evidence of post-procedure complication. Improved LLE venous congestion. - Stable for discharge from IR perspective - Continue therapeutic Lovenox - Continue Plavix 75 daily. Patient will likely require 3 month course, but total duration to be decided at 1 month clinic follow up pending imaging - Okay to continue compression stockings, but recommend intermittent use of SCDs to ensure adequatevenous inflow - Encourage ambulation w/ PT/OT. No restrictions from IR perspective. - IR will arrange outpatient follow up in 1 month w/ CT venogram and Duplex US - IR will continue to follow Dada Lopez MD Interventional Nurse Special PGY6/R5 Please call or text the above number during regular daytime hours. During after- hours and weekends,please page the Interventional Nurse Special industrial economist at [phone]. * Sahra Orlando MD - 10/17/2022 7:15 AM CDT Medicine Firm Daily Progress Subjective SUBJECTIVE Interval History: Patient getting mounted police officer procedures today at 1pm. Subjective: Upon entering room, patient on 2L of O2 which she says helps with her headaches. She denies SOB Objective OBJECTIVE Scheduled Medications: buPROPion XL, 150 mg, oral, Daily clopidogreL, 75 mg, oral, Daily diazePAM, 5 mg, oral, BID enoxaparin, 1 mg/kg, subcutaneous, Q12H GERA hydrOXYzine, 50 mg, oral, Daily - 0600 levothyroxine, 175 mcg, oral, Daily - 0600 nicotine, 1 patch, transdermal, Daily sodium chloride 0.9%, 0.5-20 mL, intra-catheter, Q8H GERA ziprasidone, 40 mg, oral, BID with meals (bkfst, dinner) Continuous Medications: sodium chloride 0.9%, 30 mL/hr, Last Rate: Stopped (10/15/221755) PRN Medications: acetaminophen bisacodyl EC OR bisacodyL sodium chloride 0.9% [DISCONTINUED] ondansetron ODT OR ondansetron oxyCODONE polyethylene glycol prochlorperazine ramelteon sodium chloride 0.9% Vitals: Most Recent : Vitals: 10/17/22 0530 BP: Pulse: 85 Resp: Temp: SpO2: 24hr Min/Max: Temp Min: 36.2 ??C (97.2 ??F) Max: 36.7 ??C (98.1 ??F) Pulse Min: 85 Max: 102 BP Min: 110/62 Max: 119/75 Resp Min: 16 Max: 18 SpO2 Min: 97 % Max: 100 % I/O: I/O last 2 completed shifts: In: 1010 [P.O.:1000; I.V.:10] Out: 1360 [Urine:1360] No intake/output data recorded. Physical Exam: General: Well-developed, well-nourished, appears stated age, NAD HENT: NCAT. Conjunctivae are normal. No scleral icterus. Neck: Neck supple. No thyromegaly. No JVD Cardiovascular: RRR. Normal S1/S2. No r/m/g. No peripheral edema Pulmonary/Chest: no respiratory distress. CTAB. No w/r/r Abdomen: soft, +BS. NTND. No rebound tenderness, no guarding Back: No tenderness along spinous processes; no CVA tenderness Skin: warm and dry, no observable rashes Extremities: 2+ radial, DP pulses Neuro: A&Ox4, no focal neurologic deficits, 5/5 strength in all extremities Psych: Normal mood and affect Lab/Radiology/Diagnostic Review: Recent Results (from the past 24 hour(s)) Beta 2 glycoprotein IgG Ab Collection Time: 10/16/22 11:08 AM Result Value Ref Range Beta-2 glycoprotein I, IgG <1.4 <=19.9 units/mL Cardiolipin antibody, IgG Collection Time: 10/16/22 11:08 AM Result Value Ref Range Cardiolipin, IgG <1.6 <=19.9 GPL U/mL Cardiolipin antibody, IgM Collection Time: 10/16/22 11:08 AM Result Value Ref Range Cardiolipin, IgM 0.2 <=19.9 MPL U/mL Lupus Anticoagulant Panel plus Reflexes Collection Time: 10/16/22 11:08 AM Result Value Ref Range PT 10.8 10.3 - 13.7 sec INR 0.95 0.90 - 1.20 aPTT 39 (H) 28 - 38 sec Beta 2 glycoprotein IgM Ab Collection Time: 10/16/22 11:08 AM Result Value Ref Range Beta-2 glycoprotein I, IgM 0.2 <=19.9 units/mL Protime-INR Collection Time: 10/16/22 11:09 AM Result Value Ref Range PT 11.0 10.3 - 13.7 sec INR 0.96 0.90 - 1.20 aPTT Collection Time: 10/16/22 11:09 AM Result Value Ref Range aPTT 38 28 - 38 sec CBC with auto differential Collection Time: 10/17/22 4:52 AM Result Value Ref Range WBC 5.4 3.8 - 9.9 K/cumm Hgb 9.3 (L) 11.9 - 15.5 g/dL Hct 28.7 (L) 35.6 - 45.5 % Plt 220 150 - 400 K/cumm MPV 9.0 (L) 9.1 - 12.3 fL RBC 3.20 (L) 3.90 - 5.20 M/cumm MCV 89.7 81.3 - 96.4 fL MCH 29.1 27.1 - 33.3 pg MCHC 32.4 32.3 - 35.7 g/dL RDW CV 12.7 11.1 - 14.9 % RDW SD 41.2 35.7 - 48.1 fL NRBC abs 0.00 0.00 - 0.01 K/cumm Comprehensive metabolic panel Collection Time: 10/17/22 4:52 AM Result Value Ref Range Sodium 142 135 - 145 mmol/L Potassium, pl 4.6 3.3 - 4.9 mmol/L Chloride 109 97 - 110 mmol/L CO2 29 22 - 32 mmol/L Anion gap 4 2 - 15 mmol/L BUN 8 6 - 25 mg/dL Creatinine 0.84 0.60 - 1.10 mg/dL Glucose 97 70 - 199 mg/dL Calcium 8.4 (L) 8.5 - 10.3 mg/dL Bilirubin, total <0.2 0.1 - 1.2 mg/dL Protein, pl 5.6 (L) 6.5 - 8.5 g/dL Albumin 3.1 (L) 3.5 - 5.0 g/dL Alk phos 45 40 - 130 Units/L ALT 10 7 - 45 Units/L AST 16 10 - 45 Units/L Magnesium Collection Time: 10/17/22 4:52 AM Result Value Ref Range Magnesium 2.0 1.4 - 2.5 mg/dL Differential, auto Collection Time: 10/17/22 4:52 AM Result Value Ref Range Neutrophil abs 1.7 1.7 - 6.5 K/cumm Imm gran abs 0.0 0.0 - 0.1 K/cumm Lymphocyte abs 2.7 0.8 - 3.3 K/cumm Monocyte abs 0.5 0.2 - 0.8 K/cumm Eosinophil abs 0.4 0.0 - 0.5 K/cumm Basophil abs 0.1 0.0 - 0.1 K/cumm Neutrophil pct 32.3 % Imm gran pct 0.4 % Lymphocyte pct 49.8 % Monocyte pct 10.1 % Eosinophil pct 6.5 % Basophil pct 0.9 % eGFR Collection Time: 10/17/22 4:52 AM Result Value Ref Range eGFR 89 (L) 90 - 130 mL/min/1.73 m2 I have reviewed the above laboratory results. Imaging Results: IR Percutaneous Thrombectomy Vein Left Result Date: 10/15/2022 1. Successful left lower extremity angiogram demonstrating acute thrombosis of the left common iliac, external iliac, and common femoral veins. 2. Successful percutaneous mechanical thrombectomy of the left iliofemoral system with marked clot burden reduction and improved antegrade venous drainage.3. Successful left common iliac vein self expandable stent deployment for the treatment of a May-Thurner lesion. PLAN: The patient will remain supine with both lower extremities flat 2 hours postprocedure. The patient should immediately have sequential compression devices (SCDs) placed on both legsto the level of the thigh to ensure good venous inflow and maintain stent patency. The patient shoul d be transitioned from a heparin drip to therapeutic Lovenox this evening. Furthermore, the patientshould be loaded with Plavix 300 mg once . She will begin Plavix 75 mg once daily thereafter. Interventional radiology will continue to follow. We will also plan for a follow up CT venogram with left leg venous duplex US in 1 month with a clinic visit to assess her response to treatment. Dictated by: Dada Lopez M.D. The radiology attending physician has personally reviewed this study, and had reviewed and/or edited this written report and agrees with it. Electronically signed by: Umberto Garcia M.D. CT Head WO Contrast Result Date: 10/15/2022 No acute intracranial hemorrhage. Mild tortuosity of the right cervical internal carotid artery without significant stenosis of the neck vasculature. Dictated by: Codey Ortiz M.D. The radiology attending physician has personally reviewed this study, and had reviewed and/or edited this written report and agrees with it. Electronically signed by: Ramone Ortega M.D. CTA Neck W WO Contrast Result Date: 10/15/2022 No acute intracranial hemorrhage. Mild tortuosity of the right cervical internal carotid artery without significant stenosis of the neck vasculature. Dictated by: Codey Ortiz M.D. The radiology attending physician has personally reviewed this study, and had reviewed and/or edited this written report and agrees with it. Electronically signed by: Ramone Ortega M.D. CT Abdomen Pelvis W Contrast Result Date: 10/15/2022 1. Findings suggestive of left femoral and iliac deep vein thrombosis. Electronically signed by: Luis Hagan M.D. Assessment/Plan ASSESSMENT & PLAN Sahra Parks is a 42 y.o. female with PMH unspecified psychiatric illness (lives in [place]), GREEN disorder, ?seizure disorder, hypothyroidism, SLE, cervical mass, TUD p/w left leg pain/swelling that has been intermittent over the last month and worse the day ONLINE [facility]CHAND[facility]. S/p percutaneous mechanical thrombectomywith subsequent left common iliac stent deployment by IR on 10/16. 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 No surgeries/travel. Has significant psych history with reported intermittent catatonic spells that could contribute. Possibly related to May-Thurner lesion as well, now s/p stent. Patient reports possible cervical malignancy as well as ongoing OCP use as other etiology. Additionally found to have low PT/INR with normal PTT. Reports she thinks her mother had issues with blood clots. - Repeat INR in the AM; check Vit K level, Protein C/S, FVL/PT mutation; can consider APLS workup if SLE diagnosis is confirmed or hemolysis labs are positive - checked UA w/ prot/cr for nephrotic eval, was unremarkable - pain control: APAP 1g Q6, oxy 5 QID PRN; avoiding sedating medications given her psychiatric medications - IR following: therapeutic Lovenox, thigh/calf SCDs, Plavix load (10/15) with Plavix 75 daily for 30 days - PT/OT eval when cleared by IR team - Will follow up with IR outpatient #Uterine mass Patient states she has been diagnosed with cervical cancer in the past, and received a cervical cone. 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 Pelvic US from 09/15/22 with 1.7 x 1.9 x 1.3 cm uterine mass posterior to the endometrial canal withmass effect displacing the endometrial canal anteriorly, ddx includes fibroid v s endometrial carcinoma. Also had CT A/P - Agricultural Extension Specialist to do pelvic exam, endometrial biopsy, and psb cervical biopsy 6/28 afternoon. - STD testing - Discontinue OCPs due to clot risk - Patient considering alternative contraception options, will check back in with her Nausea Patient has vomited multiple times since admission - Compazine and zofran ordered Headache/Eye Pain Right sided eye pain that can radiate to rest of head. Previous note from 2010 from OSH describes symptoms as apart of headache disorder - Can remain on oxygen while in-patient - Out patient referral to neurology #SLE Chart reported history of lupus. Patient recollects being told she has it and reports skin discoloration. No serum testing in our system. - CIARRA, anti-dsDNA, GOVIND - APLS labs #Psychosis Unspecified psych disorder but requires senior care for living ([facility]). - cont home valium 5 BID, geodon 40 BID, Wellbutrin XL 150 daily, atarax 50 daily (home is BID, so can increase PRN) - check lamotrigine level (reports home 50mg dose) - check EKG for QTc monitoring #Anemia Hgb 11.3, unclear baseline. MCV normal, normal RDW. Iron low at 24, Transferrin saturation at 10. - Start iron supplementation #Hypothyroidism - Cont home regimen levothyroxine 175mcg. Follow up TSH/T4. Code Status: Full Code Diet: Adult Diet Regular DVT Prophylaxis: Lovenox Access: PIV Dispo: Back to [place] Sahra Orlando MD, PGY1 Cosigned by Ganga Blake MD at 10/18/2022 2:10 PM CDT Associated attestation - Ganga Blake MD - 10/18/2022 2:10 PM CDT Attending Documentation I have seen and examined the patient on 10/17/2022. I agree with the findings and plan of care as documented in the resident's/fellow's note. Patient had pap smear and endometrial biopsy yesterday results pending. Pt symptoms improving. Supplementary Attestation The total encounter time on this service date was 35 minutes which was spent performing a [id number] encounter and personally completing the provider-level activities documented in the note. This includes time spent prior to the visit and after the visit in direct care of the patient. This time does not include time spent in any separately reportable services. Ganga Blake MD * Dada Lopez MD - 10/16/2022 7:17 AM CDT Images from the original note were not included. Interventional Radiology Progress Note HPI: 42 yo F w/ acute LLE s/p perc mechanical thrombectomy and L common iliac vein stenting of May-Thurner lesion on 10/15. Interval History: NAEO. Afebrile, HDS. Patient reports improved LLE pain and swelling. Also endorsing improved mobility. Patient now reporting GREEN (attributed to opioid analgesia). Remains eager in evaluation of host of other medical issues incl kidney stones, cervical lesion, prior stroke. Physical Exam: Temp: [36.3 ??C (97.3 ??F)-36.6 ??C (97.8 ??F)] 36.5 ??C (97.7 ??F) Pulse: [81-120] 86 Resp: [6-20] 16 BP: (103-164)/(70-128) 109/70 General: NAD, AOx4 CV: RRR Resp: Non-labored breathing, nml chest rise Ext: Both L and R pop access sites c/d/I w/ intact overlying dermabond, LLE noticeably less edematous and swollen Labs: Hematology Lab History Latest Ref Rng & Units 09/14/2022 23:07 10/15/2022 09:12 10/16/2022 05:11 Labs - Hematology WBC 3.8 - 9.9 K/cumm 7.0 7.8 5.3 Total Hb, POC 11.9 - 15.5 g/dL 12.4 11.3 9.3 Hct 35.6 - 45.5 % 35.9 34.1 28.3 Plt 150 - 400 K/cumm 271 251 208 Neutrophil abs 1.7 - 6.5 K/cumm 2.7 5.1 2.9 Lymphocytes, abs 0.8 - 3.3 K/cumm 3.4 1.7 1.6 Chem/LFT Lab History Latest Ref Rng & Units 09/14/2022 23:07 10/15/2022 09:12 10/16/2022 05:11 Labs-Chem/LFT Sodium 135 - 145 mmol/L 136 135 134 Creatinine 0.60 - 1.10 mg/dL 1.02 0.92 0.97 Bilirubin, total 0.1 - 1.2 mg/dL <0.2 0.2 AST 10 - 45 Units/L 15 22 ALT 7 - 45 Units/L 11 13 CrCl- Actual Body Weight (Cockcroft-Gault) 81.1 84.7 79.8 Lab Results Component Value Date INR 0.88 (L) 10/15/2022 Drain: Output by Drain (mL) 10/14/22 0700 - 10/14/22185810/14/22 190 - 10/15/22 0659 10/15/22 07 - 10/15/22 18510/15/22 1900 - 10/16/22 0659 10/16/22 0700 - 10/16/22 0717 Requested LDAs do not have output data documented. Micro: No results found for: MICROBIOLOGY Assessment/Plan: 42 yo F w/ acute LLE s/p perc mechanical thrombectomy and L common iliac vein stenting of May-Thurner lesion on 10/15. No evidence of post-procedure complication. Improved LLE venous congestion. - Stable for discharge from IR perspective - Continue therapeutic Lovenox - Continue Plavix 75 daily - Continue SCDs - please ensure both calf and thigh systems applied - IR will arrange outpatient follow up in 1 month w/ CT venogram and Duplex US - IR will continue to follow Dada Lopez MD Interventional Nurse Special PGY6/R5 Please call or text the above number during regular daytime hours. During after- hours and weekends,please page the Interventional Nurse Special industrial economist at [phone]. documented in this encounter H&P Notes * Ebenezer Levine MD - 10/16/2022 2:37 AM CDT History and Physical Note Patient name: Sahra Parks Date: 10/15/2022 CHIEF COMPLAINT Leg pain HPI Mrs. 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 Patient states that she is ambulatory at baseline though less describes catatonic states intermittently that require her to be bed-bound. She denies recent travel/surgeries, known hematologic disorder in her family. Patient does take hormone therapy for unclear reason (contraception vs treatment?).She states swelling and pain began around her ankle and has since progressed more proximally and, at the time of eval in the ED, had progressed to now involve her buttock. She had also noticed intermittent paresthesias, weakness, and bluish discoloration of her leg. Noted to have severe pain with dorsiflexion. Imaging in the ED showed acute LLE DVT involving the iliofemoral, popliteal, and tibial systems for which IR was consulted. Patient underwent percutaneous mechanical thrombectomy with subsequent left common iliac stent deployment with successful clot burden reduction and anterograde venous drainage. ED course: - Vitals: AF, HR 90-100s, RR 8-16, BP 120-160/100s, O2 >95% on RA - Labs: CKD on BMP but otherwise unremarkable, CBC with anemia 11.3, low PT/INR - Imaging: as above - Meds: dilaudid 0.5 x3, versed 0.5 x7, fentanyl 50 x5, APAP 1g x1 On arrival to the floor, patient HDS. Complaining of leg pain and was given dilaudid 0.5 x1 with improvement. Subsequently developed nausea and vomited her strawberry ice cream after telling patient to stop eating if she feels nauseous until anti-nausea medication could be given. Patient stated sheknew her medications but kept talking about dilaudid being used instead of xanax. Did not specify other medications. States her pain is much improved. Does report having cervical cancer years ago and able to specify that she had a normal pap smear in the last couple of years. Was told she has cervical cancer that has recurred though unclear if this is true. [facility] not aware of this diagnosis but they also don't have record of her getting estrogen that by our dispense report has been being given and patient confirmed that she takes as OCP. Noted to have cervical mass on CT here with stable appearance from years ago. Reached out to nursing facility who had a different med rec from our dispense records report. Will order their medications and follow up in AM about dispense report. ROS ROS negative other than what is stated above in the HPI. PMH Past Medical History: Diagnosis Date Cellulitis Cellulitis - (Added by TW Conv) PSH No past surgical history on file. HOME MEDICATIONS HOME MEDICATIONS : naproxen (NAPROSYN) 500 mg tablet ondansetron ODT (ZOFRAN-ODT) 8 mg disintegrating tablet clonidine HCl 0.1 mg tablet PM diazepam 2 mg tablet TID PRN (filled 09/2022) diazepam 5 mg tablet BID (filled 09/2022) Doxycycline 100 (08/2022) Focalin XR 20 mg hydroxyzine 50 mg bid (filled 09/2022) lamotrigine 50 mg (09/2022) levothyroxine 175 mcg (08/2022) montelukast 10 mg Levonorgestrel 1.5mg (07/2022), norgestimate-ethinyl estradiol (09/2022) ondansetron 8 mg disintegrating tablet (08/2022) rizatriptan 10 mg (09/2022) q8 prn venlafaxine 75 mg (08/2022) venlafaxine ER 37.5 mg Vraylar 1.5 mg Wellbutrin XL 150 mg ziprasidone 40 mg (09/2022) BID Bold= CONFIRMED by senior care Fill dates included based off of dispense report. ALLERGIES AND DRUG REACTIONS Allergies as of 10/15/2022 - Reviewed 10/15/2022 Allergen Reaction Noted Morphine Swelling 10/15/2022 Sulfa (sulfonamide antibiotics) Vomiting, Nausea And Vomiting, and Rash 07/06/2010 Ciprofloxacin Nausea only and Vomiting FHX No family history on file. SOCIAL AND FUNCTIONAL HISTORY Social History Tobacco Use Smoking status: Every Day Packs/day: 0.50 Types: Cigarettes Smokeless tobacco: Never Substance and Sexual Activity Drug use: Never Sexual activity: Not on file Alcohol Use: Not on file Objective Medications: Scheduled: [START ON 10/16/2022] clopidogreL, 75 mg, oral, Daily enoxaparin, 1 mg/kg, subcutaneous, Q12H GERA ibuprofen, 600 mg, oral, Once sodium chloride 0.9%, 0.5-20 mL, intra-catheter, Q8H GERA Infusions: sodium chloride 0.9%, 30 mL/hr, Last Rate: Stopped (10/15/221755) PRN: sodium chloride 0.9% HYDROmorphone sodium chloride 0.9% Vitals: 24hr Min/Max: Temp Min: 36.4 ??C (97.5 ??F) Max: 36.6 ??C (97.8 ??F) Pulse Min: 81 Max: 120 BP Min: 103/85 Max: 164/122 Resp Min: 6 Max: 20 SpO2 Min: 86 % Max: 99 % Most Recent: Vitals: 10/15/222029 BP: 135/98 Pulse: 94 Resp: Temp: SpO2: 98% Intake/Output Summary (Last 24 hours) at 10/15/20222134 Last data filed at 10/15/20221755 Gross per 24 hour Intake 96 ml Output -- Net 96 ml Physical Exam: Constitutional: female appearing stated age in NAD Eyes: PERRL, EOMI, anicteric. ENT: NCAT. Oropharynx normal, moist mucus membranes. CV: RRR, no m/r/g. 2+ radial pulses b/l. No JVD. Lungs: Non-labored breathing. Clear to auscultation in all lung cisneros, unlabored. Trachea midline. GI: Atraumatic. Soft, non-tender, non-distended. Normoactive bowel sounds to auscultation. No hepatomegaly or splenomegaly. No rebound, no guarding. Skin: No new rashes, lesions or bruises. Extremities: No edema or cyanosis. Lymph: No cervical, supraclavicular, axillary or inguinal adenopathy. Neurologic: AAOx4, CNII-XII intact, normal strength and sensation. Psychiatric: Normal affect and mood. Lab/Radiology/Diagnostic Review: Recent Results (from the past 36 hour(s)) CBC with auto differential Collection Time: 10/15/22 9:12 AM Result Value Ref Range WBC 7.8 3.8 - 9.9 K/cumm Hgb 11.3 (L) 11.9 - 15.5 g/dL Hct 34.1 (L) 35.6 - 45.5 % Plt 251 150 - 400 K/cumm MPV 9.2 9.1 - 12.3 fL RBC 3.91 3.90 - 5.20 M/cumm MCV 87.2 81.3 - 96.4 fL MCH 28.9 27.1 - 33.3 pg MCHC 33.1 32.3 - 35.7 g/dL RDW CV 12.4 11.1 - 14.9 % RDW SD 39.6 35.7 - 48.1 fL NRBC abs 0.00 0.00 - 0.01 K/cumm Basic metabolic panel Collection Time: 10/15/22 9:12 AM Result Value Ref Range Sodium 135 135 - 145 mmol/L Potassium, pl 4.6 3.3 - 4.9 mmol/L Chloride 101 97 - 110 mmol/L CO2 26 22 - 32 mmol/L Anion gap 8 2 - 15 mmol/L BUN 11 6 - 25 mg/dL Creatinine 0.92 0.60 - 1.10 mg/dL Glucose 86 70 - 199 mg/dL Calcium 8.6 8.5 - 10.3 mg/dL Protime-INR Collection Time: 10/15/22 9:12 AM Result Value Ref Range PT 10.0 (L) 10.3 - 13.7 sec INR 0.88 (L) 0.90 - 1.20 Differential, auto Collection Time: 10/15/22 9:12 AM Result Value Ref Range Neutrophil abs 5.1 1.7 - 6.5 K/cumm Imm gran abs 0.0 0.0 - 0.1 K/cumm Lymphocyte abs 1.7 0.8 - 3.3 K/cumm Monocyte abs 0.6 0.2 - 0.8 K/cumm Eosinophil abs 0.4 0.0 - 0.5 K/cumm Basophil abs 0.1 0.0 - 0.1 K/cumm Neutrophil pct 65.0 % Imm gran pct 0.3 % Lymphocyte pct 21.5 % Monocyte pct 7.6 % Eosinophil pct 5.0 % Basophil pct 0.6 % eGFR Collection Time: 10/15/22 9:12 AM Result Value Ref Range eGFR 80 (L) 90 - 130 mL/min/1.73 m2 aPTT Collection Time: 10/15/22 9:12 AM Result Value Ref Range aPTT 32 28 - 38 sec POCT hCG, urine Collection Time: 10/15/22 11:33 AM Result Value Ref Range HCG, ur, POC Negative Lot Number [id number] QC Backgroud Clear Acceptable QC Control Line Acceptable aPTT Collection Time: 10/15/22 6:10 PM Result Value Ref Range aPTT >150 (Critical) 28 - 38 sec Critical Result Callback Hematology Collection Time: 10/15/22 6:10 PM Result Value Ref Range Date Notified 20221015 Time Notified 1855 TestName aPTT Called/Read Back Heron Granados MD Called By preet I have reviewed the laboratory results. Imaging Results: IR Percutaneous Thrombectomy Vein Left Narrative: EXAMINATION: 1. IMAGE GUIDED PERCUTANEOUS MECHANICAL THROMBECTOMY OF LEFT LOWER EXTREMITY ACUTE DEEP VENOUS THROMBOSIS 2. IMAGE GUIDED PERCUTANEOUS TRANSLUMINAL ANGIOPLASTY AND STENT DEPLOYMENT OF LEFT COMMON ILIAC VEIN HISTORY/INDICATION: 42-year-old female presenting with left lower extremity pain, swelling, and purple discoloration of [address] and Doppler demonstrating extensive left iliofemoral, popliteal, and tibial thrombosis. The patient presents to interventional radiology for catheter directed therapy. ATTENDING PRESENCE: Umberto Garcia M.D., the attending radiologist was present from the beginning to the end of the procedure. SEDATION: Procedural sedation was administered under the attending physician's direction and continuous monitoring by a trained nurse specialist who was independent from those actually performing the procedure. Total monitored sedation time was 90 minutes. TECHNIQUE: The risks, benefits and alternatives were discussed and informed consent was obtained. Prior to beginning the procedure, [place] Protocol was performed to confirm the patient's identity and the planned procedure. For procedures that utilize fluoroscopy, the fluoroscopy time has been recorded in the electronic medical record. Maximum sterile barriers including cap, mask, hand hygiene, sterile gloves, sterile gown, large sterile drape and 2% chlorhexidine for cutaneous antisepsis were used. The patient was positioned prone on the fluoroscopy table. Both right and left popliteal fossae were sterilely prepped and draped in usual fashion. An ultrasound image of both a right and left popliteal vein were taken and saved to PACS. Attention was 1st turned to the left lower extremity. A partially thrombosed left popliteal vein was accessed under continuous sonographic guidance with a 21 gauge micropuncture needle. A micro wire was passed through the access needle into the left distal femoral vein. The access needle was then exchanged for a 5 Albanian transitional dilator. Through this 5 Albanian outer dilator, a left lower extremity angiogram was performed in multiple stations to the level of the left common femoral vein. Fluoroscopy was used for all catheter and guidewire manipulation. Using a 100 cm vert catheter and Bentson guidewire, the system was navigated through the right external iliac vein, common iliac vein, inferior vena cava, with ultimate tip position in the superior vena cava. The Bentson wire was removed and contrast injected to confirm positioning. Next, a exchange length Amplatz was advanced through the vert to serve as a working wire. The vert catheter was then removed, the tract dilated, and ultimately a 19 Albanian Inari ClotTriever sheath was placed. Through this, a 16 Albanian Inari ClotTriever catheter was passed into the right common iliac, external iliac, and common femoral veins. A total of three passes with this device were performed. Repeat left lower extremity venogram was performed. The decision was made to proceed with right popliteal vein access. Access was gained in a similar fashion to the original left leg. Ultimately, a 5 Albanian vert catheter was positioned in the contralateral, right common iliac vein to assist with stent landing zone mapping. First, the left common iliac vein was pre dilated using a 10 mm x 4 cm balloon. Next, a 16 mm x 10 cm Abre self expanding stent was deployed in the left common iliac vein. The stent was post dilated using a 14 mm by 6 cm balloon. Final left lower extremity venogram was performed. Both sheaths were removed. A 4 0 Monocryl pursestring suture was placed at the left sheath exit site. Both access points were sealed with Dermabond. ESTIMATED BLOOD LOSS: 90 cc CONDITION: Stable DISCHARGED TO: Emergency department FINDINGS: Preprocedure sonogram of the left popliteal vein demonstrates a partially thrombosed vessel. The contralateral, right popliteal vein is widely patent. Initial left lower extremity venogram demonstrates the mid segment and distal segment of the left femoral vein are widely patent. Acute thrombus is identified within the proximal left femoral vein. Acute thrombus is also identified within the left external iliac and left common iliac veins. Few collaterals opacify about the left groin suggesting acuity. No evidence of thrombus in the inferior vena cava. Post thrombectomy venogram demonstrates a marked reduction in clot burden with improved antegrade flow from the calf to the IVC. A persistent flow-limiting stenosis is identified within the origin of the left common iliac vein suggestive of May-Thurner lesion. Intra procedural fluoroscopic images demonstrate stent deployment within the left common iliac vein. Final venogram confirms minimal residual clot burden with improved antegrade venous return to the heart. Impression: 1. Successful left lower extremity angiogram demonstrating acute thrombosis of the left common iliac, external iliac, and common femoral veins. 2. Successful percutaneous mechanical thrombectomy of the left iliofemoral system with marked clot burden reduction and improved antegrade venous drainage. 3. Successful left common iliac vein self expandable stent deployment for the treatment of a May-Thurner lesion. PLAN: The patient will remain supine with both lower extremities flat 2 hours postprocedure. The patient should immediately have sequential compression devices (SCDs) placed on both legs to the level of the thigh to ensure good venous inflow and maintain stent patency. The patient should be transitioned from a heparin drip to therapeutic Lovenox this evening. Furthermore, the patient should be loaded with Plavix 300 mg once . She will begin Plavix 75 mg once daily thereafter. Interventional radiology will continue to follow. We will also plan for a follow up CT venogram with left leg venous duplex US in 1 month with a clinic visit to assess her response to treatment. Dictated by: Dada Lopez M.D. The radiology attending physician has personally reviewed this study, and had reviewed and/or edited this written report and agrees with it. Electronically signed by: Umberto Garcia M.D. CTA Neck W WO Contrast Narrative: EXAMINATION: Computed tomography of the head without contrast Computed tomography angiography (CTA) of the neck without and with contrast HISTORY: Lower extremity DVT, history of systemic lupus erythematosus TECHNIQUE: Computed tomography of the head was performed without contrast according to standard protocol. Computed tomographic angiography was then obtained from the aortic arch to the skull base following the uneventful administration of intravenous contrast. 3D images were generated on a dedicated workstation. Contrast information: 75 mL Optiray-350 COMPARISON: None available. FINDINGS: There is mucosal thickening in the maxillary sinuses with an air-fluid level noted on the left. Topogram demonstrates no lytic lesions or fractures. There is no acute intracranial hemorrhage . Ventricles are of normal size and morphology. No mass effect or midline shift is present. The garduno-white matter differentiation is normal. The visualized portions of the orbits are normal. The visualized portions of the mastoids are normal. No fractures are identified. There is reversal of the typical cervical lordosis with apex to C5-C6. There is moderate multilevel cervical spondylosis most pronounced C5-C6 where there is an associated small posterior disc osteophyte complexes. Scattered subcentimeter lymph nodes are seen in the neck. None are pathologically enlarged or abnormally enhancing. The muscles of the neck are normal. Fascial planes are preserved and the deep spaces of the neck are normal. The visualized airway is widely patent. The spinal canal is normal in caliber. Neural foramina are normal. Limited examination of the superior thorax shows no pulmonary infiltrate, suspicious nodules, or pleural effusions. Angiographic findings: The right cervical internal carotid artery is tortuous without significant stenosis. The visualized aortic arch appears normal with normal configuration of the great vessels. The innominate artery and both subclavian arteries are normal in course and caliber. The common carotid arteries are normal in course and caliber with normal carotid bifurcations bilaterally. The course and caliber of the internal carotid arteries are normal. No areas of atherosclerotic narrowing or filling defects are identified. The [id number] is complete. The anterior and middle cerebral arteries are normal. The vertebral arteries are codominant. The basilar artery is normal. The posterior cerebral arteries are normal. There is no aneurysm or vascular malformation identified. Impression: No acute intracranial hemorrhage. Mild tortuosity of the right cervical internal carotid artery without significant stenosis of the neck vasculature. Dictated by: oCdey Ortiz M.D. The radiology attending physician has personally reviewed this study, and had reviewed and/or edited this written report and agrees with it. Electronically signed by: Ramone Ortega M.D. CT Head WO Contrast Narrative: EXAMINATION: Computed tomography of the head without contrast Computed tomography angiography (CTA) of the neck without and with contrast HISTORY: Lower extremity DVT, history of systemic lupus erythematosus TECHNIQUE: Computed tomography of the head was performed without contrast according to standard protocol. Computed tomographic angiography was then obtained from the aortic arch to the skull base following the uneventful administration of intravenous contrast. 3D images were generated on a dedicated workstation. Contrast information: 75 mL Optiray-350 COMPARISON: None available. FINDINGS: There is mucosal thickening in the maxillary sinuses with an air-fluid level noted on the left. Topogram demonstrates no lytic lesions or fractures. There is no acute intracranial hemorrhage . Ventricles are of normal size and morphology. No mass effect or midline shift is present. The garduno-white matter differentiation is normal. The visualized portions of the orbits are normal. The visualized portions of the mastoids are normal. No fractures are identified. There is reversal of the typical cervical lordosis with apex to C5-C6. There is moderate multilevel cervical spondylosis most pronounced C5-C6 where there is an associated small posterior disc osteophyte complexes. Scattered subcentimeter lymph nodes are seen in the neck. None are pathologically enlarged or abnormally enhancing. The muscles of the neck are normal. Fascial planes are preserved and the deep spaces of the neck are normal. The visualized airway is widely patent. The spinal canal is normal in caliber. Neural foramina are normal. Limited examination of the superior thorax shows no pulmonary infiltrate, suspicious nodules, or pleural effusions. Angiographic findings: The right cervical internal carotid artery is tortuous without significant stenosis. The visualized aortic arch appears normal with normal configuration of the great vessels. The innominate artery and both subclavian arteries are normal in course and caliber. The common carotid arteries are normal in course and caliber with normal carotid bifurcations bilaterally. The course and caliber of the internal carotid arteries are normal. No areas of atherosclerotic narrowing or filling defects are identified. The [id number] is complete. The anterior and middle cerebral arteries are normal. The vertebral arteries are codominant. The basilar artery is normal. The posterior cerebral arteries are normal. There is no aneurysm or vascular malformation identified. Impression: No acute intracranial hemorrhage. Mild tortuosity of the right cervical internal carotid artery without significant stenosis of the neck vasculature. Dictated by: Codey Ortiz M.D. The radiology attending physician has personally reviewed this study, and had reviewed and/or edited this written report and agrees with it. Electronically signed by: Ramone Ortega M.D. CT Abdomen Pelvis W Contrast Narrative: EXAMINATION: Computed tomography of the abdomen/pelvis with intravenous contrast HISTORY: Left lower extremity DVT TECHNIQUE: Transaxial computed tomographic images of the abdomen/pelvis were obtained with intravenous contrast according to the standard protocol after the uneventful administration of 100 mL Opti-Ray 350 intravenous contrast. COMPARISON: 09/15/2022 FINDINGS: Clear lung bases. Normal heart size. No focal liver lesions. No biliary duct dilatation. Patent portal and superior mesenteric veins. Normal gallbladder, pancreas, adrenal glands, and spleen. No hydronephrosis involving either kidney. Normal appearance of the bladder. The previously noted mass along the posterior aspect of the uterus is similar to the prior examination and better evaluated by pelvic ultrasound. No abnormal bowel wall thickening or dilatation. There is no abdominal or pelvic lymphadenopathy. There is soft tissue stranding adjacent to the left superficial femoral and common femoral veins which extends along the left iliac vasculature. These vessels appear slightly expanded. The appearance is new when compared to the prior exam 09/15/2022. Bone windows show no suspicious lytic or blastic lesions. Impression: 1. Findings suggestive of left femoral and iliac deep vein thrombosis. Electronically signed by: Luis Hagan M.D. US VEIN DUPLEX LOWER EXTREMITY LEFT LIMITED, UNILATERAL [facility] - Department of Vascular Surgery, Vascular Laboratory [address] [place] [id number] Lower Extremity Venous Ultrasound Report ---Preliminary--- Patient Name: SAHRA PARKS : 1980 (42y 1m) Study Date: 10/15/2022 9:46:59 AM Gender: F Tech: Location: [facility] Ref.Provider: TOYA LEIVA Quality: Adequate Order Provider: TOYA LEIVA Procedures: Vascular Report: Venous Duplex imaging was performed in the left lower extremity. The common femoral, femoral, popliteal, posterior tibial, peroneal veins were evaluated for patency, spontaneity and phasicity with Doppler, compression and augmentation maneuvers. Great saphenous vein proximal at the junction was evaluated with compression maneuvers. Indications: Swelling lower extremity, left. Findings: Performing Cashier Office: Marisel Palacios RVT. Left: Duplex scan reveals dilated vein with echogenic, intraluminal, non-compressible material consistent with acute deep vein thrombosis in the left lower extremity. Deep veins involved include the common femoral vein, profunda femoral vein, femoral vein, popliteal vein, posterior tibial veins, peroneal veins and gastrocnemius veins. Superficial vein thrombus (proximal GSV) extends into the deep venous system. Superficial thrombus length is > 5cm. Iliac Veins Right: Patent right external iliac vein, no evidence of thrombus. Iliac Veins Left: Unable to visualize flow in the iliac vein; intraluminal material noted. Comments: Contralateral common femoral vein is imaged for comparison and is patent. Unilateral (limited study) performed per M.D. order. Provider Notification: Results called on the above date to Toya Leiva MD at 1015. Conclusions: 1. There is extensive, acute deep vein thrombosis involving the left femoral, popliteal and calf veins. History: cervical mass. Previous Studies: No previous studies for comparison. Disclaimer: The study images and the final report will be retained in the patient chart by the Vascular Laboratory for the legally required time period. This chart constitutes the legal record of any testing performed. 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 No surgeries/travel. Has significant psych history with reported intermittent catatonic spells that could contribute. Possibly related to May-Thurner lesion as well, now s/p stent. Patient reports possible cervical malignancy as well as ongoing OCP use as other etiology. Additionally found to have low PT/INR with normal PTT. Reports she t hinks her mother had issues with blood clots. - Repeat INR in the AM; check Vit K level, Protein C/S, FVL/PT mutation; can consider APLS workup if SLE diagnosis is confirmed or hemolysis labs are positive - check UA w/ prot/cr for nephrotic eval - consider MANAGER OF ADMINISTRATION eval for malignancy concerns - pain control: APAP 1g Q6, oxy 5 QID PRN; avoiding sedating medications given her psychiatric medications - IR following: therapeutic Lovenox, thigh/calf SCDs, Plavix load (10/15) with Plavix 75 daily - PT/OT eval when cleared by IR team #SLE Chart reported history of lupus. Patient recollects being told she has it. No serum testing in our system. - CIARRA, anti-dsDNA, GOVIND #Psychosis Unspecified psych disorder but requires senior care for living ([facility]). - cont home valium 5 BID, geodon 40 BID, Wellbutrin XL 150 daily, atarax 50 daily (home is BID, so can increase PRN) - check lamotrigine level (reports home 50mg dose) - check EKG for QTc monitoring #Anemia Hgb 11.3, unclear baseline. MCV normal, normal RDW. - follow up iron studies/ferritin, LDH, hapto #Hypothyroidism - Cont home regimen levothyroxine 175mcg. Follow up TSH/T4. Code status: Full Diet: Regular DVT ppx: lovenox J. Naveed Levine MD, MPH Internal Medicine, PGY-3 Medicine Firm Service Cosigned by Ganga Blake MD at 10/16/2022 6:09 PM CDT Associated attestation - Ganga Blake MD - 10/16/2022 6:09 PM CDT Attending Documentation I have seen and examined the patient on 10/16/22. I agree with the findings and plan of care as documented in the resident's/fellow's note. 42 y/o F w/ acute LLE DVT s/p thrombectomy from likely May-thurner syndrome per IR. Continue AC. Supplementary Attestation The total encounter time on this service date was 45 minutes which was spent performing a [id number] encounter and personally completing the provider-level activities documented in the note. This includes time spent prior to the visit and after the visit in direct care of the patient. This time does not include time spent in any separately reportable services. Ganga Blake MD documented in this encounter Procedure Notes * Marisel Hull MD - 10/17/2022 5:01 PM CDTAssociated Order(s): Endometrial Biopsy Only Post-Procedure Diagnose(s): Abnormal uterine bleeding Endometrial Biopsy Only Date/Time: 10/17/2022 5:01 PM Performed by: Marisel Hull MD Authorized by: Marisel Hull MD Consent: Verbal consent obtained. Risks and benefits: risks, benefits and alternatives were discussed Consent given by: patient Patient identity confirmed: verbally with patient Time out: Immediately prior to procedure a time out was called to verify the correct patient, procedure, equipment, information support project manager and site/side marked as required. Comments: Speculum was placed and cervix visualized. Pap obtained. Cervix cleansed with betadine. Two passes with Pipelle were taken, with tissue visualized in specimen container. Patient tolerated procedure well. Exam: External: Normal external genitalia Speculum: Multiparous cervix without lesion or masses. Bimanual exam notable for ?2cm posterior lower uterine segment smooth mass, likely consistent with fibroid. Otherwise mobile cervix and uterus. No adnexal masses. Marisel Hull MD OBGYN, R4 documented in this encounter Consult Notes * Asia Bloden MD - 10/16/2022 5:51 PM CDTAssociated Order(s): IP CONSULT TO MINING SPECULATOR SPECIMEN PROCESSOR CONSULT NOTE Bed: [id number] Pelvic bed: No Reason for consult: Abnormal bleeding, ?hx of cervical cancer HPI: 42 y.o. premenopausal female with PMH of unspecified psychiatric illness (lives in senior care), ?seizure disorder, SLE, cervical cancer that presented with left leg pain/swelling diagnosed with acute DVT. Patient is s/p perc mechanical thrombectomy and L common iliac vein stenting of May-Thurner lesion on 10/15/22. Currently on plavix and therapeutic lovenox. Patient is questionable historian. Reports hx of cervical cancer diagnosed at age 17 that was treated with pills. Also reports she had procedure where they cut out piece of cervix at that time but weren't able to get it all. Patient reports she never saw coffee grower oncologist. Patient reportsshe had abnormal pap tests but most recent was normal at [facility]. Patient reports hx of heavy and painful periods. Reports period usually last about 7 days with first 2 days being heaviest and going through 6 super pads in the day. Reports significant pain with menses. She also has vaginal spotting in between periods. Reports she has never had endometrial biopsy.Previously tried DMPA and IUD but reports IUD fell out. She is currently taking OCPs and has been for last several months for periods. MANAGER OF ADMINISTRATION: Pap History: Reports hx of abnormal pap tests see above, last normal pre patient report Menses: regular, every 30 days, menses lasting 5-7 days. Patient has bleeding in between her periods STD History: Denies Contraception: Nothing HRT: No history of HRT use Reports she is homeless and is currently living in nursing facility. She has been sexually active and did not use protection. Past Medical History: Diagnosis Date Cellulitis Cellulitis - (Added by TW Conv) Current Facility-Administered Medications: acetaminophen (TYLENOL) tablet 1,000 mg, 1,000 mg, oral, Q6H PRN, Ebenezer Levine MD, 1,000 mgat 10/16/22 0614 bisacodyl EC (DULCOLAX EC) tablet 10 mg, 10 mg, oral, Daily PRN OR bisacodyL (DULCOLAX) suppository 10 mg, 10 mg, rectal, Daily PRN, Ebenezer Levine MD buPROPion XL (WELLBUTRIN XL) 24 hour tablet 150 mg, 150 mg, oral, Daily, Ebenezer Levine MD, 150 mg at 10/16/22 0856 Carrier Fluids for Secondary Infusion - 0.9% Sodium Chloride, 30 mL, intravenous, PRN, Warren Quiñonez MD clopidogreL (PLAVIX) tablet 75 mg, 75 mg, oral, Daily, Heron Javier MD, 75 mg at 10/16/22 0856 diazePAM (VALIUM) tablet 5 mg, 5 mg, oral, BID, Ebenezer Levine MD, 5 mg at 10/16/22 0856 enoxaparin (LOVENOX) syringe 60 mg, 1 mg/kg, subcutaneous, Q12H GERA, Heron Javier MD, 60mg at 10/16/22 0855 hydrOXYzine (ATARAX) tablet 50 mg, 50 mg, oral, Daily - 599, Ebenezer Levine MD, 50 mg at 10/16/22 0450 levothyroxine (SYNTHROID) tablet 175 mcg, 175 mcg, oral, Daily - 599, Ebenezer Levine MD, 175mcg at 10/16/22 0450 nicotine (NICODERM CQ) 14 mg patch 24 hour 1 patch, 1 patch, transdermal, Daily, Ebenezer Levine MD, 1 patch at 10/16/22 0855 [DISCONTINUED] ondansetron ODT (ZOFRAN-ODT) disintegrating tablet 4 mg, 4 mg, oral, Q6H PRN OR ondansetron (ZOFRAN) injection 4 mg, 4 mg, intravenous, Q6H PRN, Ebenezer Levine MD, 4 mg at 10/16/22 0614 oxyCODONE (ROXICODONE) tablet 5 mg, 5 mg, oral, QID PRN, Ebenezer Levine MD, 5 mg at 10/16/22 0856 polyethylene glycol (MIRALAX) packet 17 g, 17 g, oral, Daily PRN, Ebenezer Levine MD prochlorperazine (COMPAZINE) injection 5 mg, 5 mg, intravenous, Q6H PRN, Sahra Orlando MD, 5 mg at 10/16/22 1029 ramelteon (ROZEREM) tablet 8 mg, 8 mg, oral, Nightly PRN, Ebenezer Levine MD sodium chloride 0.9% flush 0.5-20 mL, 0.5-20 mL, intra-catheter, Q8H GERA, Warren Quiñonez MD, 10 mL at 10/16/22 0450 sodium chloride 0.9% flush 0.5-20 mL, 0.5-20 mL, intra-catheter, PRN, Warren Quiñonez MD sodium chloride 0.9% infusion, 30 mL/hr, intravenous, Continuous, Warren Quiñonez MD, Stopped at 10/15/22 1756 ziprasidone (GEODON) capsule 40 mg, 40 mg, oral, BID with meals (bkfst, dinner), Ebenezer Levine MD, 40 mg at 10/16/22 1739 Allergies as of 10/15/2022 - Reviewed 10/15/2022 Allergen Reaction Noted Morphine Swelling 10/15/2022 Sulfa (sulfonamide antibiotics) Vomiting, Nausea And Vomiting, and Rash 07/06/2010 Ciprofloxacin Nausea only and Vomiting No family history on file. Social History Tobacco Use Smoking status: Every Day Packs/day: 0.50 Types: Cigarettes Smokeless tobacco: Never Substance and Sexual Activity Alcohol use: Not Currently Drug use: Never Sexual activity: None Labs: Labs Reviewed CBC WITH AUTO DIFFERENTIAL - Abnormal Result Value WBC 7.8 Hgb 11.3 (*) Hct 34.1 (*) Plt 251 MPV 9.2 RBC 3.91 MCV 87.2 MCH 28.9 MCHC 33.1 RDW CV 12.4 RDW SD 39.6 NRBC abs 0.00 PROTIME-INR - Abnormal PT 10.0 (*) INR 0.88 (*) EGFR - Abnormal eGFR 80 (*) APTT - Abnormal aPTT >150 (*) CBC WITH AUTO DIFFERENTIAL - Abnormal WBC 5.3 Hgb 9.3 (*) Hct 28.3 (*) Plt 208 MPV 9.1 RBC 3.24 (*) MCV 87.3 MCH 28.7 MCHC 32.9 RDW CV 12.4 RDW SD 39.8 NRBC abs 0.00 COMPREHENSIVE METABOLIC PANEL - Abnormal Sodium 134 (*) Potassium, pl 4.4 Chloride 101 CO2 25 Anion gap 8 BUN 10 Creatinine 0.97 Glucose 88 Calcium 8.1 (*) Bilirubin, total 0.2 Protein, pl 5.9 (*) Albumin 3.2 (*) Alk phos 49 ALT 13 AST 22 IRON PROFILE W/ IBC - Abnormal Iron 24 (*) TIBC 252 Transferrin saturation 10 (*) URINALYSIS AND REFLEX TO MICROSCOPIC - Abnormal Color, ur Yellow Clarity, ur Clear Specific gravity, ur >1.042 (*) pH, urine 7.0 Protein, ur ql 1+ (*) Glucose, ur ql Negative Ketones, ur Negative Bilirubin, ur Negative Blood, ur 1+ (*) Urobilinogen, ur <2.0 Nitrite, ur Negative Leukocyte esterase, ur Negative UA reflex comment Reflex to microscopic UA will be performed. Narrative: Urine pH is affected by diet, medications, systemic acid-base disturbances, and renal tubular function. pH may affect urinary stone formation. For example, urine pH below 6.0 may help reduce the tendency for calcium phosphate stones and pH greater than 6.0 may reduce the tendency for uric acid stone formation. Source: [facility] [employer].Last revised 05-02-2017 PROTEIN / CREATININE RATIO, URINE, RANDOM - Abnormal Protein, ur, quant 22.8 Creatinine Ur 105.3 Protein/creatinine ratio 216.5 (*) URINALYSIS, MICROSCOPIC ONLY - Abnormal WBC, ur 0-5 RBC, ur 11-20 (*) Epithelial cells, squamous, ur 1-5 Bacteria, ur Trace (*) Mucous, ur Present (*) TSH REFLEX TO FREE T4 - Abnormal TSH 0.19 (*) EGFR - Abnormal eGFR 75 (*) LUPUS ANTICOAGULANT PANEL PLUS REFLEXES - Abnormal PT 10.8 INR 0.95 aPTT 39 (*) POCT HCG, URINE - Normal HCG, ur, POC Negative Lot Number [id number] QC Backgroud Clear Acceptable QC Control Line Acceptable BASIC METABOLIC PANEL Sodium 135 Potassium, pl 4.6 Chloride 101 CO2 26 Anion gap 8 BUN 11 Creatinine 0.92 Glucose 86 Calcium 8.6 DIFFERENTIAL AUTO Neutrophil abs 5.1 Imm gran abs 0.0 Lymphocyte abs 1.7 Monocyte abs 0.6 Eosinophil abs 0.4 Basophil abs 0.1 Neutrophil pct 65.0 Imm gran pct 0.3 Lymphocyte pct 21.5 Monocyte pct 7.6 Eosinophil pct 5.0 Basophil pct 0.6 APTT aPTT 32 APTT aPTT 33 Narrative: Draw STAT PTT 6 hrs after initiation of heparin infusion, draw STAT PTT 6 hours after each dose change, and every 6 hours until 2 consecutive PTTs are within therapeutic range. Once two consecutive PTT's are therapeutic (60-94.9 seconds), then draw PTT every AM until heparin is discontinued. CRITICAL RESULT CALLBACK HEMATOLOGY Date Notified [id number] Time Notified 1855 TestName aPTT Called/Read Back Heron Granados MD Called By preet CIARRA REFLEX TO QUANTITATIVE AND DSDNA CIARRA Positive 1:160 CIARRA, quant 1:160 CIARRA, interp Speckled GOVIND ANTIBODY EVALUATION WITH REFLEX GOVIND ab Negative FERRITIN Ferritin 95 HEMOGLOBIN A1C Hgb A1C 5.1 Estimated Average Glucose 100 LIPID PANEL Cholesterol 148 Triglycerides 139 HDL 49 LDL, calculated 71 Non-HDL Cholesterol 99 Chol/HDL ratio 3 MAGNESIUM Magnesium 2.1 ANTI-DOUBLE STRANDED DNA ANTIBODIES dsDNA Ab 2.0 F5 (FVL) AND F2 (PROTHROMBIN) MUTATIONS Factor V Leiden F5 Normal Factor V Leiden Interpretation Value: The patient is negative for the Factor V Leiden mutation (F5:c.1601G>A, p.[id number]) with twocopies of the normal allele. Prothrombin F2 Mutation Normal Prothrombin F2 Interpretation Value: The patient is negative for the prothrombin gene mutation (F2 c.*97G>A ([id number])) with two copies of the normal allele). FVL and Prothrombin Specimen Blood FVL and Prothrombin Result Review Value: Final report reviewed by: GABRIELLA Caruso, MB([facility]) Access Director, on 10/16/2022 16:33:24 CDT. LACTATE DEHYDROGENASE Lactate dehydrogenase (LDH) 226 HAPTOGLOBIN Haptoglobin 89.0 DIFFERENTIAL AUTO Neutrophil abs 2.9 Imm gran abs 0.0 Lymphocyte abs 1.6 Monocyte abs 0.5 Eosinophil abs 0.2 Basophil abs 0.0 Neutrophil pct 55.6 Imm gran pct 0.2 Lymphocyte pct 30.5 Monocyte pct 9.9 Eosinophil pct 3.4 Basophil pct 0.4 T4, FREE Free T4 1.32 Narrative: This test was reflexed from a TSH result. PROTIME-INR PT 11.0 INR 0.96 APTT aPTT 38 BETA 2 GLYCOPROTEIN IGG AB Beta-2 glycoprotein I, IgG <1.4 CARDIOLIPIN ANTIBODY, IGG Cardiolipin, IgG <1.6 CARDIOLIPIN ANTIBODY, IGM Cardiolipin, IgM 0.2 BETA 2 GLYCOPROTEIN IGM AB Beta-2 glycoprotein I, IgM 0.2 APTT PROTEIN C ACTIVITY PROTEIN S ANTIGEN, FREE VITAMIN K LAMOTRIGINE LEVEL CBC WITH AUTO DIFFERENTIAL COMPREHENSIVE METABOLIC PANEL MAGNESIUM Physical exam: Temp: [36.2 ??C (97.2 ??F)-36.7 ??C (98.1 ??F)] 36.7 ??C (98.1 ??F) Pulse: [86-117] 101 Resp: [10-18] 16 BP: (109-146)/(62-113) 110/62 General: NAD, mood appropriate Pulmonary: non-labored Cardiovascular: Regular rate and rhythm Abdomen: soft, non-tender, non-distended, without rebound or guarding GENITAL EXAM: Deferred A/P: 42 y.o. premenopausal female with PMH of unspecified psychiatric illness (lives in senior care), ?seizure disorder, SLE, cervical cancer that presented with left leg pain/swelling diagnosed with acute DVT. #AUB #Reported hx of cervical cancer - Patient questionable historian but reports hx of cervical cancer diagnosed at age 17 treated withpills and cervical excision procedure, reports they got out most of cancer - Reports last pap normal - Long-standing hx of heavy and painful periods with irregular bleeding in between periods - Pelvic US from 09/15/22 with 1.7 x 1.9 x 1.3 cm uterine mass posterior to the endometrial canal with mass effect displacing the endometrial canal anteriorly, ddx includes fibroid v s endometrial carcinoma - Patient currently on therapeutic lovenox and plavix - Recommend pelvic exam, endometrial biopsy, and psb cervical biopsies tomorrow in procedure room on 5900. Patient agreeable - Recommend discontinuing OCPs, discussed contraceptive options including LNG- IUD given patient will be on therapeutic anticoagulation but patient desires to consider options Discussed with Dr. Cano 10/16/22 Asia Bolden MD OBGYN PGY4 Cosigned by Shanell Cano MD at 10/18/2022 10:06 AM CDT Associated attestation - Shanell Cano MD - 10/18/2022 10:06 AM CDT The resident/fellow saw and examined the patient, we discussed their findings, and I am in agreement with the plan based on the discussion with the resident/fellow. I did not personally examine the patient. documented in this encounter Nursing Notes * Sally Leon RN - 10/18/2022 3:07 PM CDT Patient discharge instructions given at 1504. Patient VSS stable per baseline. Patients IV removed per MD order; dressing applied at site and is clean, dry, and intact. Discharge instructions discussed with patient including home medications, signs and symptoms to monitor, and follow-up appointments. Patient states understanding. Patients belongings returned. Patient leaving via taxi accompanied by self going to home. documented in this encounter ED Notes * Brook Hoover RN - 10/15/2022 5:53 PM CDT Bed: ED2-26 Expected date: Expected time: Means of arrival: Comments: Brook Carver RN 10/15/22 303 * Toya Leiva MD - 10/15/2022 10:56 AM CDT HPI Chief Complaint Patient presents with ??? Leg Swelling Reports swelling, pain, and discoloration to LLE that began yesterday. Distal pulses palpable. Cap refill brisk. HPI 42-year-old female currently residing in a nursing facility secondary to psychiatric problems, history of lupus, who is presenting with left lower leg pain and swelling. Patient reports that yesterday she noticed swelling in the left lower extremity that has been worsening today. Also reports severe calf pain. Denies any recent travel. Denies any recent OCP use. Denies any recent surgeries. Says that she usually ambulates at baseline. Denies possibility of being . No shortness of breath, chest pain, fever, chills. Patient History: Patient Active Problem List Diagnosis Date Noted ??? Deep vein thrombosis (DVT) of left lower extremity ([facility] ([facility]) 10/15/2022 ??? Carpal tunnel syndrome on left 09/14/2010 ??? Seizure disorder (CMS/[facility]) ([facility]) 09/14/2010 ??? Asthma 07/06/2010 ??? Encounter for health-related screening 07/06/2010 ??? SAB (spontaneous ) 07/06/2010 ??? Status post umbilical hernia repair, follow-up exam 07/06/2010 ??? Tobacco use disorder complicating , childbirth, or the puerperium 07/06/2010 ??? Anxiety 06/22/2010 ??? GBS (group B streptococcus) UTI complicating 06/22/2010 ??? Hypothyroid 06/22/2010 ??? History of delivery, currently 06/22/2010 ??? Lupus (systemic lupus erythematosus) (CMS/HCC) (HCC) 06/22/2010 ??? Marijuana abuse 06/22/2010 ??? S/P cone biopsy of cervix 06/22/2010 ??? Severe pre-eclampsia, antepartum 06/22/2010 ??? Supervision of high-risk 06/22/2010 Past Medical History: Diagnosis Date ??? Cellulitis Cellulitis - (Added by TW Conv) No past surgical history on file. No family history on file. Social History Tobacco Use ??? Smoking status: Every Day Packs/day: 0.50 Types: Cigarettes ??? Smokeless tobacco: Never Substance and Sexual Activity ??? Alcohol use: Not Currently ??? Drug use: Never ??? Sexual activity: Not on file Social History Social History Narrative ??? Not on file Review of Systems Review of Systems Constitutional: Negative for chills and fever. HENT: Negative for ear pain and sore throat. Eyes: Negative for pain and visual disturbance. Respiratory: Negative for cough and shortness of breath. Cardiovascular: Positive for leg swelling. Negative for chest pain and palpitations. Gastrointestinal: Negative for abdominal pain and vomiting. Genitourinary: Negative for dysuria and hematuria. Musculoskeletal: Negative for arthralgias and back pain. Skin: Negative for color change and rash. Neurological: Negative for seizures and syncope. All other systems reviewed and are negative. Physical Exam ED Triage Vitals Temp Pulse Resp BP SpO2 10/15/22 0840 10/15/22 0840 10/15/22 0840 10/15/22 0840 10/15/22 0840 36.6 ??C (97.8 ??F) 81 20 123/91 99 % Temp src Heart Rate Source Patient Position BP Location FiO2 (%) 10/15/22 0840 10/15/22 1430 -- -- -- Oral Monitor Height Height Method Weight Weight Method 10/15/22 0835 10/15/22 0835 10/15/22 0835 10/15/22 0835 1.626 m (5' 4 ) Stated 66.7 kg (147 lb) Stated Physical Exam Vitals and nursing note reviewed. Constitutional: General: She is not in acute distress. Appearance: She is well-developed. HENT: Head: Normocephalic and atraumatic. Eyes: Conjunctiva/sclera: Conjunctivae normal. Cardiovascular: Rate and Rhythm: Normal rate and regular rhythm. Pulses: Normal pulses. Heart sounds: Normal heart sounds. No murmur heard. Pulmonary: Effort: Pulmonary effort is normal. No respiratory distress. Breath sounds: Normal breath sounds. Abdominal: General: Abdomen is flat. Bowel sounds are normal. Palpations: Abdomen is soft. Tenderness: There is no abdominal tenderness. Musculoskeletal: General: Swelling present. Cervical back: Neck supple. Comments: Left leg swelling, discoloration, calf pain 2+ distal pulses, warm extremity Skin: General: Skin is warm and dry. Capillary Refill: Capillary refill takes less than 2 seconds. Neurological: General: No focal deficit present. Mental Status: She is alert and oriented to person, place, and time. Psychiatric: Mood and Affect: Mood normal. [facility] Medical Decision Making 42-year-old female currently residing in a nursing facility secondary to psychiatric problems, history of lupus, who is presenting with left lower leg pain and swelling. Patient reports that yesterday she noticed swelling in the left lower extremity that has been worsening today. Also reports severe calf pain. Denies any recent travel. Denies any recent OCP use. Denies any recent surgeries. Says that she usually ambulates at baseline. Left leg swelling, discoloration, calf pain. 2+ distal pulses, warm extremity Concern for DVT likely, unlikely arterial clot with good circulation and 2+ distal pulses. Plan for US duplex, check tests, dispo pending workup Amount and/or Complexity of Data Reviewed Labs: ordered. Radiology: ordered. Risk Prescription drug management. Decision regarding hospitalization. Attending Summary of Care ED Course as of 10/15/221811 Time: 10/15 1027 Comment: nclusions: 1. There is extensive, acute deep vein thrombosis involving the left femoral, popliteal and calf veins. By: Toya Leiva MD Time: 10/15 1037 Comment: IR will evaluate patient By: Toya Leiva MD Time: 10/15 1117 Comment: ATTENDING SUMMARY: PT c/o several days increased LLE swelling and pain. No chest pain, cough, SOB, no N/V/D, no abd pain. Hx of similar episode 12 years ago, initially told she would need her leg cut off but then got some medicine and it got better. States she might have lupus. Currently in SNF because she has chronic pain and weakness and can't work. Has depression and psychosis in past. VSS afeb, A,A, nontoxic, NAD, speech clear and fluent, no resp distress, abd soft, NT, no peritoneal signs. Has significant swelling and bluish discoloration LLE, pulses 2/2, foot warm and dry. Pt with likely DVT, unlikely arterial occlusion, PE, for labs, imaging, serial exams, anticipate need for admit pending results. By: Sal Jeffrey MD Time: 10/15 1337 Comment: 1. Findings suggestive of left femoral and iliac deep vein thrombosis. By: Toya Leiva MD Time: 10/15 1341 Comment: IR plans to take patient By: Toya Leiva MD Time: 10/15 1510 Comment: ATTENDING TRANSITION OF CARE Huseyin Barajas MD, am taking signout from Wojciech (Attending). I have reviewed all pertinent vital signs allergies, and history available in the chart. Summary: 42 y.o. female LLE swelling and pain. Hx of PVD currently in SNF due to chronic pain. H ofdepression and psychosis. LLE swollen, bluish, discoloration, pulse +2, foot warm and dry. Possibledx of SLE. Lots of underlying psych issues. Now with 2 days of LLE swelling and pain. Pending: at IVR for venous thrombectomy LLE post positive doppler study started on heparin. Dispo: admit med for phelmagia alba, need to continue heparin By: Huseyin Ghotra MD Time: 10/15 1512 Comment: TRANSITION OF CARE: IHeron MD, am taking signout from outgoing team and assuming care of this patient. I have reviewed all pertinent vital signs, allergies, and history available in the chart. Summary: 42 y.o. female with history of SLE?, Depression, resident of SNF/retirement presents with 2 days of LLE pain and swelling. US with extensive DVT up to and including iliac vein. IR on board withthrombectomy (currently in IR suite), will be on heparin infusion. Admitted to medicine. Pending: Bed assignment Dispo: Admit. By: Heron Javier MD Time: 10/15 1805 Comment: Patient back from thrombectomy. Still sedated. Evaluated her at the door. Vital signs are stable. Continues on heparin infusion. Pending bed assignment. By: Heron Javier MD Time: 10/15 1805 Comment: Pt is back from IVR and thrombectomy. Sedated and sleepy. Awaiting floor med bed. By: Huseyin Ghotra MD Time: 10/15 1809 Comment: Took signout from IR via the phone: Two access points through bilateral popliteal vein. Did have iliac vein stent. Needs to be flat for 2h with both legs straight until 1929. Needs 300mg plavix tonight, 75mg daily starting tomorrow, start SCDs bilaterally. By: Heron Javier MD Deep vein thrombosis (DVT) of left lower extremity (CMS/HCC) (HCC) Toya Leiva MD Resident 10/15/22 1502 Cosigned by Sal Jeffrey MD at 10/17/2022 10:19 AM CDT Associated attestation - Sal Jeffrey MD - 10/17/2022 10:19 AM CDT I have seen and examined the patient on 10/15/2022. I reviewed the resident's note and agree with the findings and plan of care as documented in the resident's note with modifications as documented inmy note. * Brook Hoover RN - 10/15/2022 10:34 AM CDT Bed: ED2- Expected date: Expected time: Means of arrival: Comments: Brook Haile RN 10/15/22 1034 * Brook Hoover RN - 10/15/2022 8:32 AM CDT Bed: ED2- Expected date: Expected time: Means of arrival: Comments: Brook Queen RN 10/15/22 0832 documented in this encounter Miscellaneous Notes * Hospital Course - Erik Vigil MD - 10/18/2022 11:56 AM CDT Sahra Parks is a 42 y.o. 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 She received a percutaneous mechanical thrombectomy with subsequent left common iliac stent deployment by IR on 10/16. 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 #Acute DVT s/p mechanical thrombectomy Intermittent swelling/pain in left foot for the last month. No surgeries/travel. Has significant psych history with reported intermittent catatonic spells that could contribute. Possibly related to May-Thurner lesion as well, now s/p stent. Patient reports possible cervical malignancy as well as ongoing OCP use as other etiology. Additionally found to have low PT/INR with normal PTT. Reports she t hinks her mother had issues with blood clots. Normal Protein C/S labs, no FVL/PT mutation found, noevidence of nephrotic syndrome. Other possible etiologies include OCPs and antiphospholipid syndrome. Obgyn consulted and advised stopping OCPs Lupus anticoagulant antibody was positive, but could be secondary to lovenox, will need to be repeated in 12 weeks. - Stop OCPs, follow up with reservations sales agent - Repeat Antiphospholipid syndrome labs in January. Anticoagulation plan: - Lovenox BID for 30 days, Plavix 75mg daily for 30 days (total duration of plavix is to be 90 days, but IR will change dosage at 30day post-op appointment). - Continue thigh high compression socks as tolerated - Will follow up with IR outpatient, 30 days after discharge. They plan to do CT venogram and Duplex US outpatient. #Uterine mass Patient states she has been diagnosed with cervical cancer in the past, and received a cervical cone. On OCPs prior to admission, does not follow with reservations sales agent currently. Pelvic US from 09/15/22 with 1.7 x 1.9 x 1.3 cm uterine mass posterior to the endometrial canal withmass effect displacing the endometrial canal anteriorly, ddx includes fibroid v s endometrial carcinoma. - Patient received endometrial biopsy, and STD testing. - Patient will need to follow up as an outpatient with reservations sales agent. Pathology results expected to be available in 7-10 days from 10/17. Nausea, resolved Patient has vomited multiple times since admission, believes it something she ate. She received compazine and zofran with resolution of symptoms. Headache/Eye Pain, ongoing Right sided eye pain that can radiate to rest of head. Previous note from 2010 from OSH describes symptoms as apart of headache disorder. - Received oxygen during admission for headache (no desaturations), states that it alleviated pain but no other symptoms consistent with cluster headache. - Follow up with neurology #SLE Chart reported history of lupus. Patient recollects being told she has it and reports skin discoloration. Patient's CIARRA was mildly positive 1:160, anti-dsDNA and GOVIND negative. No other symptoms consistent with lupus on admission. However, patient remains adamant that she does have lupus. Antiphospholipid labs demonstrated positive lupus anticoagulant antibody. - Repeat APLS labs in 12 weeks. #Psychosis Patient has unspecified psych disorder. Continue home medications of valium 5 BID, geodon 40 BID, Wellbutrin XL 150 daily, atarax 50 daily (home is BID, so can increase PRN). Lamotrigine level subtherapeutic at 0.5, so was not continued onadmission. Unclear if patient taking venlafaxine so also not continued on admission. - Will need to follow up with psychiatry regarding medication adjustment - normal QTc interval #Anemia Hgb 11.3, unclear baseline. Iron low at 24, Transferrin saturation at 10. - Started ferrous Sulfate 325mg once a day. Known to have heavy periods. - Repeat iron studies in 4 months. #Hypothyroidism - Cont home regimen levothyroxine 175mcg. * Plan of Care - Dari Sarah MSW - 10/18/2022 9:04 AM CDT ELLIOT revisited patient at bedside to provide resources packet for [facility], ([email or web address]). Patient accepted resources from . Per additional discussion, to provide patient with vocational and case management resources in [place], [place]. Patient reports she is considering other SNFs. Patient would like a SNF that has transportation services to appointments and a room with a window. CM following for discharge and reports patient's preference is to discharge back to [facility], and patient will continue to explore other SNFs that patient may transfer to in the future. TAY Cotton, MPH, [employer] Lathe Set Up Operator [phone] If SW support is needed after hours, please call ED Social Work at [phone]. If SW support is needed between 8am - 4:30pm CT on the weekend, please call [phone]. * Plan of Care - Christopher Sandoval. - 10/18/2022 3:50 AM CDT Problem: Health Behavior: Goal: Understanding of discharge needs will improve 10/18/2022349 by Christopher Sandoval. Outcome: Progressing 10/18/2022349 by Christopher Sandoval. Outcome: Progressing Problem: Lack of Knowledge: Goal: Ability to develop a pain control plan will improve 10/18/2022349 by Christopher Sandoval. Outcome: Progressing 10/18/2022349 by Christopher Sandoval. Outcome: Progressing Goal: Ability to identify pain intensity on a pain scale and rate it consistently will improve 10/18/2022349 by Christopher Sandoval. Outcome: Progressing 10/18/2022349 by Christopher Sandoval. Outcome: Progressing Goal: Ability to notify healthcare provider of pain before it becomes unmanageable or unbearable will improve Outcome: Progressing Problem: Medication: Goal: Satisfaction with pain management regimen will improve Outcome: Progressing Problem: Sensory: Goal: Ability to identify factors that increase the pain will improve Outcome: Progressing Goal: Pain level will decrease Outcome: Progressing Problem: Activity: Goal: Ability to return to normal activity level will improve Outcome: Progressing Problem: Lack of Knowledge: Goal: Knowledge of the prescribed therapeutic regimen will improve Outcome: Progressing Problem: Coping: Goal: Ability to cope will improve Outcome: Progressing Problem: Health Behavior: Goal: Identification of resources available to assist in meeting health care needs will improve Outcome: Progressing Problem: Sensory: Goal: Pain level will decrease Outcome: Progressing Problem: Lack of Knowledge: Goal: Ability to state ways to decrease the risk of falls will improve Outcome: Progressing Problem: Safety: Goal: Will remain free from falls Outcome: Progressing Goal: Will remain free from injury from falls Outcome: Progressing Goal: Will remain free from falls and injury in home environment Outcome: Progressing Goals: Clinical Goals for the Shift: VSS, free from falls or injuries, pain control Summary: Vital signs stable. Patient complained of left leg, pt refused tylenol. MD Kimberlyn Gaming was notified. Patient did notcomplained of pain after giving her diazepam. No BM this shift. Remained free from falls or injuries. Will continue to monitor. * Plan of Care - Dari Sarah, CUSTOMER OPERATIONS MANAGER - 10/17/2022 2:28 PM CDT SW consulted for the following: Reason for Consult: Health disparity and social determinants of health Reason for Consult: Mental health needs Reason for Consult: Counseling and support SW met with patient at bedside to discuss consult. Patient is a/o x 4 and is a resident of [facility]. Patient is agreeable to speak with SW regarding consult. Per CM note, patient is 42 year old with previous medical history of unspecified psychiatric illness (lives in [facility]), seizure disorder, cervical mass who presented with leg pain. Patient reports the she has lived at [facility] since May of 2022. Prior to that, patient was unhoused for 6 months, and prior to that, patient either lived with her mom or in her own apartment. Patient reports her mother lives in an FDC now. Patient's housing and food needs are met at her [facility]. Patient has [employer] (Medicaid) which covers her SNF residence. Patient reportsshe receives transportation to appointments through Medicaid. Patient has three children - 12, 13, and adult (in college). Patient's two minor children live withtheir father in [place], [place]. Patient's father prefers not to bring patient's children to the SNF, sopatient has not seen her children recently. Patient's long-term goal is to see her children again, and would like to secure housing and transition out of the SNF. Patient also reports eventually wanting to go back to school to continue her education. Patient reports she has a primary care physician and [facility]. Patient currently has no income. Patient said her primary care physician suggested patient may be eligible for SSDI. SW requested [employer] consult to screen patient for SSDI (pending). SW referred patient to her PCP for any follow-up needs outside of the hospital related to pursuing SSDI; patient voiced understanding. Per patient request, SW to provide patient with a printed packet of resources for for [place], [place] at bedside ([email or web address]/pdffiles/[email or web address]). Patient was talking on the phone with her children when SW returned to bedside with resource packetand requested SW to return. SW to return to bedside with packet on 10/18. ELLIOT plans to also discuss advanced care planning with patient. TAY Cotton, MPH, [employer] Lathe Set Up Operator [phone] If SW support is needed after hours, please call ED Social Work at [phone]. If SW support is needed between 8am - 4:30pm CT on the weekend, please call [phone]. * Plan of Care - Mahsa Sullivan RN - 10/17/2022 9:35 AM CDT Goals: Clinical Goals for the Shift: VSS, free from falls or injuries, pain control Summary: Problem: Health Behavior: Goal: Understanding of discharge needs will improve Outcome: Progressing Problem: Lack of Knowledge: Goal: Ability to develop a pain control plan will improve Outcome: Progressing Goal: Ability to identify pain intensity on a pain scale and rate it consistently will improve Outcome: Progressing Goal: Ability to notify healthcare provider of pain before it becomes unmanageable or unbearable will improve Outcome: Progressing Problem: Medication: Goal: Satisfaction with pain management regimen will improve Outcome: Progressing Problem: Sensory: Goal: Ability to identify factors that increase the pain will improve Outcome: Progressing Goal: Pain level will decrease Outcome: Progressing Problem: Activity: Goal: Ability to return to normal activity level will improve Outcome: Progressing Problem: Lack of Knowledge: Goal: Knowledge of the prescribed therapeutic regimen will improve Outcome: Progressing Problem: Coping: Goal: Ability to cope will improve Outcome: Progressing Problem: Health Behavior: Goal: Identification of resources available to assist in meeting health care needs will improve Outcome: Progressing Problem: Safety: Goal: Will remain free from falls Outcome: Progressing Goal: Will remain free from injury from falls Outcome: Progressing Goal: Will remain free from falls and injury in home environment Outcome: Progressing Problem: Lack of Knowledge: Goal: Ability to state ways to decrease the risk of falls will improve Outcome: Progressing Problem: Sensory: Goal: Pain level will decrease Outcome: Progressing * Plan of Care - Christopher Sandoval - 10/17/2022 4:20 AM CDT Problem: Health Behavior: Goal: Understanding of discharge needs will improve Outcome: Progressing Problem: Lack of Knowledge: Goal: Ability to develop a pain control plan will improve Outcome: Progressing Goal: Ability to identify pain intensity on a pain scale and rate it consistently will improve Outcome: Progressing Goal: Ability to notify healthcare provider of pain before it becomes unmanageable or unbearable will improve Outcome: Progressing Problem: Medication: Goal: Satisfaction with pain management regimen will improve Outcome: Progressing Problem: Sensory: Goal: Ability to identify factors that increase the pain will improve Outcome: Progressing Goal: Pain level will decrease Outcome: Progressing Problem: Activity: Goal: Ability to return to normal activity level will improve Outcome: Progressing Problem: Lack of Knowledge: Goal: Knowledge of the prescribed therapeutic regimen will improve Outcome: Progressing Problem: Coping: Goal: Ability to cope will improve Outcome: Progressing Problem: Health Behavior: Goal: Identification of resources available to assist in meeting health care needs will improve Outcome: Progressing Problem: Sensory: Goal: Pain level will decrease Outcome: Progressing Problem: Lack of Knowledge: Goal: Ability to state ways to decrease the risk of falls will improve Outcome: Progressing Problem: Safety: Goal: Will remain free from falls Outcome: Progressing Goal: Will remain free from injury from falls Outcome: Progressing Goal: Will remain free from falls and injury in home environment Outcome: Progressing Goals: Clinical Goals for the Shift: VSS, free from falls or injuries, pain control Summary: Vital signs stable. Patient complained of R eye pain, abdominal pain and left leg at start of the shift but was relieved when reassessed. No BM this shift. Urine output as charted. Remained free from falls or injuries. Will continue to monitor. * Plan of Care - Yen Morejon RN - 10/16/2022 5:24 PM CDT Problem: Health Behavior: Goal: Understanding of discharge needs will improve Outcome: Progressing Problem: Lack of Knowledge: Goal: Ability to develop a pain control plan will improve Outcome: Progressing Goal: Ability to identify pain intensity on a pain scale and rate it consistently will improve Outcome: Progressing Goal: Ability to notify healthcare provider of pain before it becomes unmanageable or unbearable will improve Outcome: Progressing Problem: Medication: Goal: Satisfaction with pain management regimen will improve Outcome: Progressing Problem: Sensory: Goal: Ability to identify factors that increase the pain will improve Outcome: Progressing Goal: Pain level will decrease Outcome: Progressing Problem: Activity: Goal: Ability to return to normal activity level will improve Outcome: Progressing Problem: Lack of Knowledge: Goal: Knowledge of the prescribed therapeutic regimen will improve Outcome: Progressing Problem: Coping: Goal: Ability to cope will improve Outcome: Progressing Problem: Health Behavior: Goal: Identification of resources available to assist in meeting health care needs will improve Outcome: Progressing Problem: Sensory: Goal: Pain level will decrease Outcome: Progressing Problem: Lack of Knowledge: Goal: Ability to state ways to decrease the risk of falls will improve Outcome: Progressing Problem: Safety: Goal: Will remain free from falls Outcome: Progressing Goal: Will remain free from injury from falls Outcome: Progressing Goal: Will remain free from falls and injury in home environment Outcome: Progressing Goals: Clinical Goals for the Shift: VSS. pain control Summary: VSS, continue to provide pain control, pt slept for most of the day, pt resting in bed with call light in reach. * Initial Assessments - Natividad Pacheco RN - 10/16/2022 1:32 PM CDT CM Initial Assessment Interview Note Information Obtained From: Other (Specify) Name: Rola Brasher (sister) / patient asleep for assessment (10/16/221323) Admission Source: [facility] Impression: 42 year old patient with previous medical history of unspecified psychiatric illness (lives in [facility]), seizure disorder, cervical mass who presented with leg pain. Plan Includes: Anticipate patient will discharge to [facility] when medically stable. CM to follow for d/c planning and referrals as needed. Primary Source of Transportation: Does the patient need discharge transport arranged?: Yes (EMS) Has discharge transport been arranged?: No (10/16/22 6640) Health Insurance Coverage: [facility] Medicaid Prescription Coverage: yes Pharmacy: alf pharmacy Primary Care Provider: Unable to verify as patient sleeping and sister not aware. Clinic, [facility]. (Inactive) Prior to Admission: Functional Status: Independent with ADLs Primary Caregiver: Facility staff Support System: Family members Support system contact info (name, phone, availablity): Rola Brasher (sister) [phone] Home Care Services: No Durable Medical Equipment: None Living Arrangements: alf ([facility]) Type of Residence: alf Does patient wish to return to care facility?: Unable to assess Will the care facility allow the patient to return?: Other (comment) (Need to contact facility) Facility contact name and number:: [facility] / [phone] Steps in home?: (Unable to assess) (10/15/22 3769) Potential discharge needs include: Home Health: Other (Comment) (Patient to return back to [facility]) (10/16/22 132) Dialysis: no Behavioral Health Services: Sister believes that patient needs a different level of care that is geared more towards mental health. Behavioral Health Services: No (10/16/221323) Patient expects to be Discharged to: alf (detention), (10/16/22 3027) Additional Information: CM met with patient at bedside to complete initial assessment. Patient drowsy and sleepy. CM contacted Rola Brasher, patient's emergency contact. Address and phone number verified. Address not the same as facesheet and corrected. Patient lives in senior care and is independent with ADLs. No HHC or DME. Sister believes that patient needs a different level of care that isgeared more towards mental health vs. senior care. Patient's Identified Problem/Goal Problem: Ensure acute medical needs are met and that patient has a safe discharge plan. Goal: Secure a discharge plan that patient/family are agreeable with and ensure patient has continuum of care. Case management will follow for discharge planning and send referrals as needed. Goals include: To assure continuity of care, To maximize coping skills, To assure patient is in a safe environment and To assure access to community resources. Plan includes: 1. Collaboration with patient, MD, direct care nurse, Tool Turret Lathe Set Up Operator, and other members of the health care team to assure needed interventions completed. 2. Return patient to optimal level of self-care post discharge. 3. Lead Installer will follow for Discharge Planning - interventions as needed 4. Anticipated level of care at discharge 5. Planned Discharge Disposition Based on a comprehensive family assessment, assistance with instrumental activities of daily livingafter discharge will be provided by senior care. Through the course of our work I determined that the senior care possesses the skill and ability to provide and monitor the care of the patient when he or she returns home. alf has the capacity to provide/monitor/arrange for the care of the patient. Finally, we determined that senior care has the knowledge of available resources and that combining them with their existing resources will suffice to sustain and care for the patient when he or she returns home. The treatment team is aware of this information. All are in agreement with the aftercare plan. Natividad Pacheco RN * Plan of Care - Elisa Dorsey RN - 10/16/2022 3:22 AM CDT Problem: Health Behavior: Goal: Understanding of discharge needs will improve Outcome: Progressing Problem: Lack of Knowledge: Goal: Ability to develop a pain control plan will improve Outcome: Progressing Goal: Ability to identify pain intensity on a pain scale and rate it consistently will improve Outcome: Progressing Goal: Ability to notify healthcare provider of pain before it becomes unmanageable or unbearable will improve Outcome: Progressing Problem: Medication: Goal: Satisfaction with pain management regimen will improve Outcome: Progressing Goals: Clinical Goals for the Shift: VSS,orient to unit Summary: stable VS Comfortable when asked With on and off sleep Pain meds given as ordered Monitored continously * Post-Procedure Note - Dada Lopez MD - 10/15/2022 5:30 PM CDT Radiology Brief Post Procedure Note Attending: Radha Fermentation Scientist: Jessica Sedation/Anesthesia: Min Sedation Pre-Op/Pre-Procedure Diagnosis: Left lower extremity DVT Post-Op/Post-Procedure Diagnosis: Acute LLE DVT, May-Thurner lesion Procedure Performed: Percutaneous thrombectomy, L common iliac vein ONLINE MERCHANDISER and stenting Procedure Findings: Successful L popliteal access w/ ultimate placement of 19F sheath and R popliteal access w/ placement of 5F vert catheter Successful LLE venogram in multiple stations Successful percutaneous mechanical thrombectomy w/ [id number] Successful pre-dilation/ONLINE MERCHANDISER w/ 10 x 4 balloon, stent deployment w/ 16 x 10 Abre, post-dilation w/ 14 x 6 balloon Successful L pop hemostasis w/ manual compression and R pop hemostasis w/ manual compression alone. Plan: - Patient supine w/ both LE flat 2 hours post procedure (until 19:30) - Immediate placement of both thigh and calf SCDs - Transition from heparin ggt to therapeutic Lovenox to begin tonight (10/15 PM) - Administer loading dose Plavix 300 mg today (10/15), begin Plavix 75 mg thereafter Complications: None Estimated Blood Loss: 70 cc Specimens: None Condition: Stable Full report to follow. * Pre-Procedure Note - Dada Lopez MD - 10/15/2022 2:56 PM CDT Images from the original note were not included. PRE-SEDATION ASSESSMENT/H&P Patient is a 42 y.o. female with chief complaint of left lower extremity swelling and pain. Procedure: Left lower extremity venogram, possible thrombectomy, possible thrombolysis, possible stenting Indications/History: 42-year-old female with chronic, unspecified psychiatric illness [place], systemic lupus erythematosus presenting with left [...] baseline CPAP requirement. No recent surgical intervention. PMH: Patient Active Problem List Diagnosis Date Noted Deep vein thrombosis (DVT) of left lower extremity ([facility] ([facility]) 10/15/2022 Carpal tunnel syndrome on left 09/14/2010 Seizure disorder ([facility] ([facility]) 09/14/2010 Asthma 07/06/2010 Encounter for health-related screening 07/06/2010 SAB (spontaneous ) 07/06/2010 Status post umbilical hernia repair, follow-up exam 07/06/2010 Tobacco use disorder complicating , childbirth, or the puerperium 07/06/2010 Anxiety 06/22/2010 GBS (group B streptococcus) UTI complicating 06/22/2010 Hypothyroid 06/22/2010 History of delivery, currently 06/22/2010 Lupus (systemic lupus erythematosus) ([facility] ([facility]) 06/22/2010 Marijuana abuse 06/22/2010 S/P cone biopsy of cervix 06/22/2010 Severe pre-eclampsia, antepartum 06/22/2010 Supervision of high-risk 06/22/2010 History of Sedation/Anesthesia Complications: No History of Difficult Airway: No PSH No past surgical history on file. Social History: Social History Tobacco Use Smoking status: Every Day Packs/day: 0.50 Types: Cigarettes Smokeless tobacco: Never Substance and Sexual Activity Drug use: Never Sexual activity: Not on file Alcohol Use: Not on file Family History: No family history on file. Current Meds: Current Facility-Administered Medications: Carrier Fluids for Secondary Infusion - 0.9% Sodium Chloride, 30 mL, intravenous, PRN, Warren Quiñonez MD heparin 1,000 unit/mL injection 2,650 Units, 40 Units/kg, intravenous, Q6H PRN OR heparin 1,000unit/mL injection 5,300 Units, 80 Units/kg, intravenous, Q6H PRN, Toya Leiva MD heparin in 0.9% sodium chloride 25,000 unit/250 mL infusion (premix), 0-33 Units/kg/hr, intravenous, Titrated, Toya Leiva MD, Last Rate: 12.01 mL/hr at 10/15/22 1420, 18 Units/kg/hr at 10/15/22 1420 HYDROmorphone (DILAUDID) injection 0.5 mg, 0.5 mg, intravenous, Q2H PRN, Toya Leiva MD, 0.5mg at 10/15/22 1420 ibuprofen (ADVIL,MOTRIN) tablet 600 mg, 600 mg, oral, Once, Toya Leiva MD sodium chloride 0.9% flush 0.5-20 mL, 0.5-20 mL, intra-catheter, Q8H GERA, Warren Quiñonez MD, 10 mL at 10/15/22 1445 sodium chloride 0.9% flush 0.5-20 mL, 0.5-20 mL, intra-catheter, PRN, Warren Quiñonez MD sodium chloride 0.9% infusion, 30 mL/hr, intravenous, Continuous, Warren Quiñonez MD, Last Rate: 30 mL/hr at 10/15/22 1444, 30 mL/hr at 10/15/22 1444 Current Outpatient Medications: naproxen (NAPROSYN) 500 mg tablet, Take 1 tablet (500 mg total) by mouth 2 (two) times a day with meals, Disp: 30 tablet, Rfl: 0 ondansetron ODT (ZOFRAN-ODT) 8 mg disintegrating tablet, Take 1 tablet (8 mg total) by mouth every 8 (eight) hours as needed for nausea or vomiting, Disp: 30 tablet, Rfl: 0 Home Meds: HOME MEDICATIONS : naproxen (NAPROSYN) 500 mg tablet ondansetron ODT (ZOFRAN-ODT) 8 mg disintegrating tablet Allergies: Allergies Allergen Reactions Morphine Swelling Throat swelling Sulfa (Sulfonamide Antibiotics) Vomiting, Nausea And Vomiting and Rash Reaction: Vomiting, Ciprofloxacin Nausea only and Vomiting Reaction: Nausea, Vomiting, REVIEW OF SYSTEMS: Review of systems per HPI and otherwise all other systems are negative Vitals: Vitals: 10/15/22 1200 10/15/22 1300 10/15/22 1400 10/15/22 1430 BP: 121/97 118/85 129/93 Pulse: 104 87 83 101 Resp: 16 15 Temp: 36.4 ??C (97.5 ??F) TempSrc: Tympanic SpO2: 96% 94% 97% 95% Weight: Height: Pertinent Labs: Recent Labs Lab Units 10/15/22 0912 WBC K/cumm 7.8 HEMOGLOBIN g/dL 11.3* HEMATOCRIT % 34.1* PLATELETS K/cumm 251 Recent Labs Lab Units 10/15/22 0912 SODIUM mmol/L 135 POTASSIUM PLASMA mmol/L 4.6 CHLORIDE mmol/L 101 CO2 mmol/L 26 BUN SERUM mg/dL 11 CREATININE mg/dL 0.92 CALCIUM mg/dL 8.6 Recent Labs Lab Units 10/15/22 0912 PROTIME (PT) sec 10.0* INR 0.88* APTT sec 32 Imaging: PERTINENT PHYSICAL EXAM: General: NAD, AOX4 CV: RRR Assessment: 42-year-old female with acute left lower extremity deep venous thrombosis involving the iliofemoral, popliteal, and tibial systems, with multiple provoking risk factors including chronic immobility,reported systemic lupus erythematosus, and ongoing hormone therapy. Given severity of pain and dimin ished dorsiflexion on exam, recommend proceeding with catheter directed therapy. The patient was started on a heparin drip in the emergency department. Appropriate candidate for procedural sedation. Airway Exam: normal ASA Classification:Class 3: Patient with severe systemic disease Sedation Plan: Min Sedation Adjunctive Procedures: NONE PO status: Last PO: NPO since midnight Benefits, risks and alternatives of procedure and planned sedation have been discussed with the patient and/or their leather goods sales representative. All questions answered and they agree to proceed. documented in this encounter Plan of Treatment Pending Results Name Type Priority Associated Diagnoses Date /Time aPTT Lab STAT 10/15/2022 9:1 2 AM CDT Scheduled Orders Name Type Priority Associated Diagnoses Orde r Schedule aPTT Lab STAT Once for 1 Occ urrences starting 10/15/2022 until 10/15/2022 documented as of this encounter Procedures Procedure Name Priority Date/Time Associated Diagnosis Comments EGFR Routine 10/18/2022 4:42 AM CDT DIFFERENTIAL AUTO Routine 10/18/2022 4:4 2 AM CDT CBC WITH AUTO DIFFERENTIAL Routine 10/18/2022 4:42 AM CDT MAGNESIUM Routine 10/18/2022 4:42 AM CDT COMPREHENSIVE METABOLIC PANEL Routine 10/18/2022 4:42 AM CDT OR ENDOMETRIAL BX W/WO ENDOCERVIX BX W/O DILAT SPX Routine 10/17/2022 5:01 PM CDT Abnormal uterine bleeding PAP AND HIGH RISK HPV, REFLEX TO GENOTYPING Routine 10/17/2022 4:58 PM CDT SURGICAL PATHOLOGY Routine 10/17/2022 4: 50 PM CDT EGFR Routine 10/17/2022 4:52 AM CDT DIFFERENTIAL AUTO Routine 10/17/2022 4:5 2 AM CDT CBC WITH AUTO DIFFERENTIAL Routine 10/17/2022 4:52 AM CDT MAGNESIUM Routine 10/17/2022 4:52 AM CDT COMPREHENSIVE METABOLIC PANEL Routine 10/17/2022 4:52 AM CDT APTT Routine 10/16/2022 11:09 AM CDT PROTIME-INR Routine 10/16/2022 11:09 AM CDT LUPUS ANTICOAGULANT PANEL PLUS REFLEXES Timed 10/16/2022 11:08 AM CDT CARDIOLIPIN ANTIBODY, IGG Timed 10/16/2022 11:08 AM CDT BETA 2 GLYCOPROTEIN IGM AB Timed 10/16/2022 11:08 AM CDT BETA 2 GLYCOPROTEIN IGG AB Timed 10/16/2022 11:08 AM CDT CARDIOLIPIN ANTIBODY, IGM Timed 10/16/2022 11:08 AM CDT F5 (FVL) AND F2 (PROTHROMBIN) MUTATIONS Routine 10/16/2022 5:11 AM CDT CIARRA REFLEX TO QUANTITATIVE AND DSDNA Routine 10/16/2022 5:11 AM CDT ANTI-DOUBLE STRANDED DNA ANTIBODIES Routine 10/16/2022 5:11 AM CDT EGFR Routine 10/16/2022 5:11 AM CDT DIFFERENTIAL AUTO Routine 10/16/2022 5:1 1 AM CDT GOVIND ANTIBODY EVALUATION WITH REFLEX Routine 10/16/2022 5:11 AM CDT THYROID FUNCTION CASCADE Routine 10/16/2022 5:11 AM CDT IRON PROFILE W/ IBC Routine 10/16/2022 5 :11 AM CDT CBC WITH AUTO DIFFERENTIAL Routine 10/16/2022 5:11 AM CDT VITAMIN K Routine 10/16/2022 5:11 AM CDT PROTEIN S ANTIGEN, FREE Routine 10/16/2022 5:11 AM CDT PROTEIN C ACTIVITY Routine 10/16/2022 5: 11 AM CDT LAMOTRIGINE LEVEL Timed 10/16/2022 5:1 1 AM CDT T4, FREE Routine 10/16/2022 5:11 AM CDT MAGNESIUM Routine 10/16/2022 5:11 AM CDT LACTATE DEHYDROGENASE Routine 10/16/2022 5:11 AM CDT HEMOGLOBIN A1C Routine 10/16/2022 5:11 AM CDT HAPTOGLOBIN Routine 10/16/2022 5:11 AM CDT FERRITIN Routine 10/16/2022 5:11 AM CDT LIPID PANEL Routine 10/16/2022 5:11 AM CDT COMPREHENSIVE METABOLIC PANEL Routine 10/16/2022 5:11 AM CDT ECG 12-LEAD Routine 10/16/2022 1:58 AM CDT APTT STAT 10/16/2022 12:29 AM CDT URINALYSIS AND REFLEX TO MICROSCOPIC Routine 10/15/2022 11:34 PM CDT PROTEIN / CREATININE RATIO, URINE, RANDOM Routine 10/15/2022 11:34 PM CDT URINALYSIS, MICROSCOPIC ONLY Routine 10/15/2022 11:34 PM CDT CRITICAL RESULT CALLBACK HEMATOLOGY Routine 10/15/2022 6:10 PM CDT APTT Routine 10/15/2022 6:10 PM CDT IR PERCUTANEOUS THROMBECTOMY VEIN LEFT ED Urgent/IP Urgent 10/15/2022 5:[address] ABDOMEN PELVIS W CONTRAST ED 10/15/2022 12:21 PM CDT CTA NECK W WO CONTRAST ED 10/15/2022 12:[address] HEAD WO CONTRAST ED 10/15/2022 1 2:21 PM CDT POCT HCG, URINE Routine 10/15/2022 11:33 AM CDT US VEIN DUPLEX LOWER EXTREMITY LEFT LIMITED ED 10/15/2022 10:24 AM CDT EGFR STAT 10/15/2022 9:12 AM CDT DIFFERENTIAL AUTO STAT 10/15/2022 9:1 2 AM CDT CBC WITH AUTO DIFFERENTIAL STAT 10/15/2022 9:12 AM CDT APTT STAT 10/15/2022 9:12 AM CDT PROTIME-INR STAT 10/15/2022 9:12 AM CDT BASIC METABOLIC PANEL STAT 10/15/2022 9:12 AM CDT documented in this encounter Results * (ABNORMAL) eGFR (10/18/2022 4:42 AM CDT) [facility] eGFR 77(L) 90 - 130 mL/min/1. 73 m2 [facility] Comment: Interpretive Data Reference Interval Normal ?>/= [...] interpretive data was last reviewed 2021. Blood 10/18/2022 4:42 AM CDT 10/18/2022 5:33 AM CDT Jodee De Santiago MD LAB BLOOD KENDELL YOU Final Result [facility] Department of Laboratories [place], [place] [id number] * Differential, auto (10/18/2022 4:42 AM CDT) Neutrophil abs 1.7 1.7 - 6.5 K/cumm [facility] Imm gran abs 0.0 0.0 - 0.1 K/cumm [facility] Lymphocyte abs 2.7 0.8 - 3.3 K/cumm [facility] Monocyte abs 0.6 0.2 - 0.8 K/cumm [facility] Eosinophil abs 0.4 0.0 - 0.5 K/cumm [facility] Basophil abs 0.1 0.0 - 0.1 K/cumm [facility] Neutrophil pct 30.9 % [facility] Comment: Interpretive Data Percent cell count reference ranges are not reported, since discordance with absolute values may lead to misinterpretation of CBC data. Current Interpretive Data was last revised on 2017. Imm gran pct 0.5 % [facility] Comment: Interpretive Data Percent cell count reference ranges are not reported, since discordance with absolute values may lead to misinterpretation of CBC data. Current Interpretive Data was last revised on 2017. Lymphocyte pct 49.6 % [facility] Comment: Interpretive Data Percent cell count reference ranges are not reported, since discordance with absolute values may lead to misinterpretation of CBC data. Current Interpretive Data was last revised on 2017. Monocyte pct 10.8 % [facility] Comment: Interpretive Data Percent cell count reference ranges are not reported, since discordance with absolute values may lead to misinterpretation of CBC data. Current Interpretive Data was last revised on 2017. Eosinophil pct 7.3 % [facility] Comment: Interpretive Data Percent cell count reference ranges are not reported, since discordance with absolute values may lead to misinterpretation of CBC data. Current Interpretive Data was last revised on 2017. Basophil pct 0.9 % [facility] Comment: Interpretive Data Percent cell count reference ranges are not reported, since discordance with absolute values may lead to misinterpretation of CBC data. Current Interpretive Data was last revised on 2017. Blood 10/18/2022 4:42 AM CDT 10/18/2022 5:33 AM CDT Jodee De Santiago MD LAB BLOOD ORDNany YOU Final Result [facility] Department [place] [address] * Magnesium (10/18/2022 4:42 AM CDT) Magnesium 1.9 1.4 - 2.5 mg/dL [facility] Blood 10/18/2022 4:42 AM CDT 10/18/2022 5:33 AM CDT Jodee De Santiago MD LAB BLOOD ORDE AVELINO Final Result [facility] Department [place] [address] * (ABNORMAL) Comprehensive metabolic panel (10/18/2022 4:42 AM CDT) Sodium 142 135 - 145 mmol/L [facility] Potassium, pl 4.4 3.3 - 4.9 mmol/L [facility] Chloride 107 97 - 110 mmol/L [facility] CO2 27 22 - 32 mmol/L [facility] Anion gap 8 2 - 15 mmol/L [facility] BUN 11 6 - 25 mg/dL [facility] Creatinine 0.95 0.60 - 1.10 mg/dL [facility] Glucose 92 70 - 199 mg/dL [facility] Comment: Interpretive Data Fasting glucose >/= [...] classification and Diagnosis of Diabetes Diabetes Care 202; 46: S19-S40. Current interpretive data was last revised 2022. Calcium 8.7 8.5 - 10.3 mg/dL [facility] Bilirubin, total <0.2 0.1 - 1.2 mg/dL [facility] Protein, pl 6.0(L) 6.5 - 8.5 g/dL [facility] Albumin 3.4(L) 3.5 - 5.0 g/dL [facility] Alk phos 47 40 - 130 Units/L [facility] ALT 11 7 - 45 Units/L [facility] AST 20 10 - 45 Units/L [facility] Blood 10/18/2022 4:42 AM CDT 10/18/2022 5:33 AM CDT Jodee De Santiago MD LAB BLOOD ORDE AVELINO Final Result Performing Organization Address [facility] Co de Phone Number [facility] Department [place] [address] * (ABNORMAL) CBC with auto differential (10/18/2022 4:42 AM CDT) Pathologist [facility] WBC 5.5 3.8 - 9.9 K/cumm [facility] Hgb 10.2(L) 11.9 - 15.5 g/dL [facility] Hct 31.0(L) 35.6 - 45.5 % [facility] Plt 264 150 - 400 K/cumm [facility] MPV 9.0(L) 9.1 - 12.3 fL [facility] RBC 3.48(L) 3.90 - 5.20 M/cumm [facility] MCV 89.1 81.3 - 96.4 fL [facility] MCH 29.3 27.1 - 33.3 pg [facility] MCHC 32.9 32.3 - 35.7 g/dL [facility] RDW CV 12.6 11.1 - 14.9 % [facility] RDW SD 40.2 35.7 - 48.1 fL [facility] NRBC abs 0.00 0.00 - 0.01 K/cumm [facility] Blood 10/18/2022 4:42 AM CDT 10/18/2022 5:33 AM CDT Jodee De Santiago MD LAB BLOOD ORDE AVELINO Final Result [facility] Department [place] [address] * OR ENDOMETRIAL BX W/WO ENDOCERVIX BX W/O DILAT SPX (10/17/2022 5:01 PM CDT) Narrative Marisel Hull MD - 10/17/2022 5:01 PM CDT Marisel Hull MD ? 10/17/2022 ??5:13 PM Endometrial Biopsy Only Date/Time: 10/17/2022 5:01 PM Performed by: Marisel Hull MD Authorized by: Marisel Hull MD ??Consent: Verbal consent obtained. Risks and benefits: risks, benefits and alternatives were discussed Consent given by: patient Patient identity confirmed: verbally with patient Time out: Immediately prior to procedure a time out was called to verify the correct patient, procedure, equipment, information support project manager and site/side marked as required. Comments: Speculum was placed and cervix visualized. Pap obtained. Cervix cleansed with betadine. Two passes with Pipelle were taken, with tissue visualized in specimen container. Patient tolerated procedure well. Exam: External: Normal external genitalia Speculum: Multiparous cervix without lesion or masses. Bimanual exam notable for ?2cm posterior lower uterine segment smooth mass, likely consistent with fibroid. Otherwise mobile cervix and uterus. No adnexal masses. Marisel Hull MD IN CLINIC/BEDSIDE ORDERABLES Edited Result - Final * Pap and High Risk HPV, reflex to Genotyping (10/17/2022 4:58 PM CDT) Thin prep (Pap test) 10/17/2022 4:58 PM CDT 10/17/2022 6:01 PM CDT Narrative PATHOLOGY [facility] - 10/25/2022 2:38 PM CDT EPIC results best viewed via link to PDF [facility] [place] [address] Note to Patients: This report may contain [...] the details. CYTOPATHOLOGY REPORT FINAL Patient Name: ??SAHRA PARKS Gender: ??F : ??1980 (Age: 42) Address: ??[place] [address], [place] ??[address] Hospital #: ??[id number] Service: ??Medical Location: ??[facility] 0144 Patient Type: ??[facility] Inpatient Taken: ??10/17/2022 Received: ??10/17/2022 Accessioned: ??10/18/2022 [...] 69. ??This HPV test was performed at [facility] in [place], [place] utilizing the Gen-Probe Aptima assay. This specimen has been rescreened in accordance with this laboratory's Clinical Research Spec Program. 10/25/2022 14:38 SANDI Gill(ASCP) Report Electronically Reviewed and Signed Out By Lauren Whitney MS CT (ASCP) 10/25/2022 14:38:18 Cervicovaginal Cytology (Pap [...] and histologic results be correlated for laboratory water quality assistant & improvement standards. ??FOR ALL HIGH-GRADE CASES [...] AUB. The HPV test was performed by [facility], [address] [place] [address]. Report Images and scanned documents, if included only viewable in PDF version The performance characteristics of some immunohistochemical stains, in-situ hybridization and fluorescence in-situ hybridization tests and immunophenotyping by flow cytometry cited in this report (if any) were determined by the Surgical Pathology Department at [facility] as part of an ongoing senior quality control technician program and in compliance with federally mandated [...] determined by the Surgical Pathology Department of [facility]. ??It has not been cleared or approved by the U. S. Food and Drug Administration. Jodee De Santiago MD LAB CYTOLOGY O RDERABLES Final Result PATHOLOGY [facility] 3rd Floor [place], [place] [phone] * Surgical pathology (10/17/2022 4:50 PM CDT) Tissue (Endometrial biopsy) 10/17/2022 4:50 PM CDT 10/17/2022 5:58 PM CDT Narrative PATHOLOGY [facility] - 10/19/2022 10:53 AM CDT EPIC results best viewed via link to PDF [facility] Alisa Moreira [facility] Surgical [place] [address] Note to Patients: This report may contain [...] can answer questions and explain the details. SURGICAL PATHOLOGY REPORT FINAL Patient Name: ?? SAHRA PARKS Gender: ??F : ??1980 (Age: 42) Address: ??[address] ??[address] Hospital #: ??[id number] Taken:10/17/2022 Received:10/17/2022 Reported: 10/19/2022 Patient Type: [facility] Inpatient ?? Service: Medical Location: [place] [address] Physician(s): ??MD Asia Rivers MD Radha Devi Radhakrishna Pillai, M.D. Diagnosis: Endometrium, biopsy ? - Endometrium with progestin effect and superimposed breakdown ? - No evidence of hyperplasia or malignancy exc/10/18/2022 12:42 By this signature, I attest that the above diagnosis is based upon my personal examination of the slides(and/or other material indicated in the diagnosis). Ronald Brewer M.D., Ph.D. Report Electronically Reviewed and Signed Out By ??Ronald Brewer M.D., Ph.D. 10/19/2022 10:53:03 Microscopic Description and Comment: Microscopic examination substantiates the above cited diagnosis. Ekaterina Awan MD History: The patient is a 42-year-old female presenting for abnormal uterine bleeding. ??Operative procedure: ??Endometrial biopsy. Specimen(s) Received: A: Endometrial biopsy Gross Description: Received in formalin, labeled with the patient? ? s identifiers and endometrial biopsy is portion of red and vale tissue admixed with hemorrhagic material (with an aggregate measurement of 2.7 by 1.5 x 0.2 cm in aggregate). ?? Labeled A1. Jar 0. elsw/10/17/2022 18:51 PA(s): Fern Rodriguez By this signature, I attest that the above diagnosis is based upon my personal examination of the slides(and/or other material). Addenda/Procedures The performance characteristics of some immunohistochemical stains, fluorescence in-situ hybridization tests and immunophenotyping by flow cytometry cited in this report (if any) were determined by the Surgical Pathology and Flow Cytometry Departments at [facility] as part of an ongoing senior quality control technician program and in compliance with federally mandated [...] performance characteristics determined by the Surgical Pathology and Flow Cytometry Departments of [facility]. ??It has not been cleared or approved by the U. S. Food and Drug Administration. IMAGES AND SCANNED DOCUMENTS, IF INCLUDED, ONLY VIEWABLE IN PDF VERSION OF REPORT [facility] Lanny De Santiago MD LAB PATHOLOGY ORDERABLES Final Result PATHOLOGY [facility] 3rd Floor [place], [place] [phone] * (ABNORMAL) eGFR (10/17/2022 4:52 AM CDT) eGFR 89(L) 90 - 130 mL/min/1. 73 m2 [facility] Comment: Interpretive Data Reference Interval Normal ?>/= [...] interpretive data was last reviewed 2021. Blood 10/17/2022 4:52 AM CDT 10/17/2022 5:03 AM CDT Jodee De Santiago MD LAB BLOOD KENDELL YOU Final Result [facility] Department [place] [address] * Differential, auto (10/17/2022 4:52 AM CDT) Neutrophil abs 1.7 1.7 - 6.5 K/cumm [facility] Imm gran abs 0.0 0.0 - 0.1 K/cumm [facility] Lymphocyte abs 2.7 0.8 - 3.3 K/cumm [facility] Monocyte abs 0.5 0.2 - 0.8 K/cumm [facility] Eosinophil abs 0.4 0.0 - 0.5 K/cumm [facility] Basophil abs 0.1 0.0 - 0.1 K/cumm [facility] Neutrophil pct 32.3 % [facility] Comment: Interpretive Data Percent cell count reference ranges are not reported, since discordance with absolute values may lead to misinterpretation of CBC data. Current Interpretive Data was last revised on 2017. Imm gran pct 0.4 % [facility] Comment: Interpretive Data Percent cell count reference ranges are not reported, since discordance with absolute values may lead to misinterpretation of CBC data. Current Interpretive Data was last revised on 2017. Lymphocyte pct 49.8 % [facility] Comment: Interpretive Data Percent cell count reference ranges are not reported, since discordance with absolute values may lead to misinterpretation of CBC data. Current Interpretive Data was last revised on 2017. Monocyte pct 10.1 % [facility] Comment: Interpretive Data Percent cell count reference ranges are not reported, since discordance with absolute values may lead to misinterpretation of CBC data. Current Interpretive Data was last revised on 2017. Eosinophil pct 6.5 % [facility] Comment: Interpretive Data Percent cell count reference ranges are not reported, since discordance with absolute values may lead to misinterpretation of CBC data. Current Interpretive Data was last revised on 2017. Basophil pct 0.9 % [facility] Comment: Interpretive Data Percent cell count reference ranges are not reported, since discordance with absolute values may lead to misinterpretation of CBC data. Current Interpretive Data was last revised on 2017. Blood 10/17/2022 4:52 AM CDT 10/17/2022 5:03 AM CDT Jodee De Santiago MD LAB BLOOD KENDELL YOU Final Result [facility] Department [place] [address] * Magnesium (10/17/2022 4:52 AM CDT) Magnesium 2.0 1.4 - 2.5 mg/dL [facility] Blood 10/17/2022 4:52 AM CDT 10/17/2022 5:03 AM CDT Jodee De Santiago MD LAB BLOOD ORDE AVELINO Final Result [facility] Department [place] [address] * (ABNORMAL) Comprehensive metabolic panel (10/17/2022 4:52 AM CDT) Sodium 142 135 - 145 mmol/L [facility] Potassium, pl 4.6 3.3 - 4.9 mmol/L [facility] Chloride 109 97 - 110 mmol/L [facility] CO2 29 22 - 32 mmol/L [facility] Anion gap 4 2 - 15 mmol/L [facility] BUN 8 6 - 25 mg/dL [facility] Creatinine 0.84 0.60 - 1.10 mg/dL [facility] Glucose 97 70 - 199 mg/dL [facility] Comment: Interpretive Data Fasting glucose >/= [...] interpretive data was last revised 2022. Calcium 8.4(L) 8.5 - 10.3 mg/dL [facility] Bilirubin, total <0.2 0.1 - 1.2 mg/dL [facility] Comment:Reviewed Protein, pl 5.6(L) 6.5 - 8.5 g/dL [facility] Albumin 3.1(L) 3.5 - 5.0 g/dL [facility] Alk phos 45 40 - 130 Units/L [facility] ALT 10 7 - 45 Units/L [facility] AST 16 10 - 45 Units/L [facility] Blood 10/17/2022 4:52 AM CDT 10/17/2022 5:03 AM CDT Jodee De Santiago MD LAB BLOOD ORDE JAIMEVANNESA Final Result Performing Organization Address [facility]/ZIP Co de Phone Number [facility] Department [place] [address] * (ABNORMAL) CBC with auto differential (10/17/2022 4:52 AM CDT) [facility] WBC 5.4 3.8 - 9.9 K/cumm [facility] Hgb 9.3(L) 11.9 - 15.5 g/dL [facility] Hct 28.7(L) 35.6 - 45.5 % [facility] Plt 220 150 - 400 K/cumm [facility] MPV 9.0(L) 9.1 - 12.3 fL [facility] RBC 3.20(L) 3.90 - 5.20 M/cumm [facility] MCV 89.7 81.3 - 96.4 fL [facility] MCH 29.1 27.1 - 33.3 pg [facility] MCHC 32.4 32.3 - 35.7 g/dL [facility] RDW CV 12.7 11.1 - 14.9 % [facility] RDW SD 41.2 35.7 - 48.1 fL [facility] NRBC abs 0.00 0.00 - 0.01 K/cumm [facility] Blood 10/17/2022 4:52 AM CDT 10/17/2022 5:03 AM CDT Jodee De Santiago MD LAB BLOOD ORDE AVELINO Final Result [facility] Department [place] [address] * aPTT (10/16/2022 11:09 AM CDT) [facility] aPTT 38 28 - 38 sec [facility] Comment: Interpretive Data Therapeutic heparin range: 60.0 - 94.0 seconds. Based on correlation with therapeutic heparin activity range of 0.3-0.7 Units/mL. Current interpretive data was last revised on 2020. Blood 10/16/2022 11:0 9 AM CDT 10/16/2022 11:50 AM CDT Jodee De Santiago MD [facility] Final Result Performing Organization Address [facility] de Phone Number [facility] Department [place] [address] * Protime-INR (10/16/2022 11:09 AM CDT) Pathologist [facility] PT 11.0 10.3 - 13.7 sec [facility] INR 0.96 0.90 - 1.20 [facility] Comment: Interpretive data Oral anticoagulant therapeutic ranges: Venous thromboembolism prophylaxis or treatment: 2.0-3.0 CARDIOLOGY Standard range: 2.0-3.0 High-intensity range: 2.5-3.5 Refer to indication-specific guidelines for appropriate target ranges for prosthetic heart valve replacement. Current interpretive data was last revised on 2019. Blood 10/16/2022 11:0 9 AM CDT 10/16/2022 11:50 AM CDT Jodee De Santiago MD LAB BLOOD ORDE [facility] Final Result Performing Organization Address [facility] de Phone Number [facility] Department [place] [address] * Beta 2 glycoprotein IgM Ab (10/16/2022 11:08 AM CDT) Pathologist [facility] Beta-2 glycoprotein I, IgM 0.2 <=19.9 units/mL [facility] Comment: Interpretive Data Negative: <20 U/mL Positive: [...] factor. ??These results were obtained with the [employer] System. Beta-2 GP1 IgM values obtained with different manufacturers' assay methods may not be used interchangeably. Current interpretive data was last revised on 2016. Blood 10/16/2022 11:0 8 AM CDT 10/16/2022 11:48 AM CDT Jodee De Santiago MD LAB BLOOD ORDNany YOU Final Result [facility] Department [place] [address] * (ABNORMAL) Lupus Anticoagulant Panel plus Reflexes (10/16/2022 11:08 AM CDT) [facility] PT 10.8 10.3 - 13.7 sec [facility] INR 0.95 0.90 - 1.20 [facility] Comment: Interpretive data Oral anticoagulant therapeutic ranges: Venous thromboembolism prophylaxis or treatment: 2.0-3.0 CARDIOLOGY Standard range: 2.0-3.0 High-intensity range: 2.5-3.5 Refer to indication-specific guidelines for appropriate target ranges for prosthetic heart valve replacement. Current interpretive data was last revised on 2019. aPTT 39(H) 28 - 38 sec [facility] Comment: Interpretive Data Therapeutic heparin range: 60.0 - 94.0 seconds. Based on correlation with therapeutic heparin activity range of 0.3-0.7 Units/mL. Current interpretive data was last revised on 2020. DRVVT screen ratio 1.30(H) 0.00 - 1.20 Ratio [facility] DRVVT confirm ratio 1.02 Ratio [facility] DRVVT S/C Ratio 1.28(H) 0.00 - 1.20 Ratio [facility] SCT Screen Ratio 1.49(H) 0.00 - 1.16 Ratio [facility] SCT Confirm Ratio 0.88 Ratio [facility] SCT S/C Ratio 1.69(H) 0.00 - 1.16 Ratio [facility] Lupus anticoagulant, interp Positive [facility] Comment: Interpretive data ?? Lupus anticoagulants (LA) are [...] ?? References: 1) Erik Armstrong, Gypsy A, Justine JH, Ordiana TL, Jhonny M, De Andres PG. Update of the guidelines for lupus anticoagulant detection. J Thromb Haemost. 2009; 7:4193-6542. 2. Miyakis S. et al. International consensus statement on an update of the classification criteria for definite antiphospholipid syndrome (APS). J Thromb Haemost. 2006; 4:295-306. Current interpretive data was last revised on 2018 Blood 10/16/2022 11:0 8 AM CDT 10/16/2022 11:51 AM CDT Jodee De Santiago MD LAB BLOOD KENDELL YOU Final Result [facility] Department [place] [address] * Cardiolipin antibody, IgM (10/16/2022 11:08 AM CDT) [facility] Cardiolipin, IgM 0.2 <=19.9 MPL U/mL [facility] Comment: Interpretive Data Negative: <20 MPL U/mL [...] antibodies. ??These results were obtained with the [employer] 2200 System. Cardiolipin IgM values obtained with different manufacturers' assay methods may not be used interchangeably. Current interpretive data was last revised on 2016. Blood 10/16/2022 11:0 8 AM CDT 10/16/2022 11:48 AM CDT Jodee De Santiago MD LAB BLOOD ORDE AVELINO Final Result Performing Organization Address City/[facility]/ZIP Co de Phone Number [facility] Department [place] [address] * Cardiolipin antibody, IgG (10/16/2022 11:08 AM CDT) [facility] Cardiolipin, IgG <1.6 <=19.9 GPL U/mL [facility] Comment: Interpretive Data Negative: <20 GPL U/mL [...] ANTHONY. These results were obtained with the [employer] 2200 System. Cardiolipin IgG values obtained with different manufacturers' assay methods may not be used interchangeably. Current interpretive data was last revised on 2016. Blood 10/16/2022 11:0 8 AM CDT 10/16/2022 11:48 AM CDT Jodee De Santiago MD LAB BLOOD ORDE AVELINO Final Result Performing Organization Address [facility]/ZIP Co de Phone Number [facility] Department [place] [address] * Beta 2 glycoprotein IgG Ab (10/16/2022 11:08 AM CDT) Beta-2 glycoprotein I, IgG <1.4 <=19.9 units/mL [facility] Comment: Interpretive Data Negative: <20 U/mL Positive: > or = 20 U/mL ? Beta-2 glycoprotein 1 (Beta-2 GP1) antibodies are a more specific marker of thrombotic risk. It is expected that some samples will be ACL positive and Beta- 2 EV2uxeasnkl. In order to improve specificity, the International Congress on Antiphospholipid Antibodies recommends Beta-2 GP1 antibodies of IgG or IgM isotype ??(> the 99th percentile), obtained twice, at least 12 weeks apart, to support a diagnosis of antiphospholipid syndrome. The cutoff for this assay was developed from data based on the 99th percentile. These results were obtained with the [employer] 2200 System. Beta 2GP1 IgG values obtained with different manufacturers' assay methods may not be used interchangeably. Current interpretive data was last revised on 2016. Blood 10/16/2022 11:0 8 AM CDT 10/16/2022 11:48 AM CDT Jodee De Santiago MD LAB BLOOD ORDNany YOU Final Result Performing Organization Address City/[facility] Co de Phone Number [facility] Department [place] [address] * T4, free (10/16/2022 5:11 AM CDT) Pathologist [facility] Free T4 1.32 0.90 - 1.70 ng/dL [facility] Blood 10/16/2022 5:11 AM CDT 10/16/2022 5:34 AM CDT Narrative [facility] - 10/16/2022 7:08 AM CDT This test was reflexed from a TSH result. Jodee De Santiago MD LAB BLOOD ORDE AVELINO Edited Result - Final [facility] Department [place] [address] * (ABNORMAL) eGFR (10/16/2022 5:11 AM CDT) [facility] eGFR 75(L) 90 - 130 mL/min/1. 73 m2 [facility] Comment: Interpretive Data Reference Interval Normal ?>/= [...] interpretive data was last reviewed 2021. Blood 10/16/2022 5:11 AM CDT 10/16/2022 5:34 AM CDT Jodee De Santiago MD LAB BLOOD KENDELL YOU Final Result [facility] Department [place] [address] * Differential, auto (10/16/2022 5:11 AM CDT) Neutrophil abs 2.9 1.7 - 6.5 K/cumm [facility] Imm gran abs 0.0 0.0 - 0.1 K/cumm [facility] Lymphocyte abs 1.6 0.8 - 3.3 K/cumm [facility] Monocyte abs 0.5 0.2 - 0.8 K/cumm [facility] Eosinophil abs 0.2 0.0 - 0.5 K/cumm [facility] Basophil abs 0.0 0.0 - 0.1 K/cumm [facility] Neutrophil pct 55.6 % [facility] Comment: Interpretive Data Percent cell count reference ranges are not reported, since discordance with absolute values may lead to misinterpretation of CBC data. Current Interpretive Data was last revised on 2017. Imm gran pct 0.2 % [facility] Comment: Interpretive Data Percent cell count reference ranges are not reported, since discordance with absolute values may lead to misinterpretation of CBC data. Current Interpretive Data was last revised on 2017. Lymphocyte pct 30.5 % [facility] Comment: Interpretive Data Percent cell count reference ranges are not reported, since discordance with absolute values may lead to misinterpretation of CBC data. Current Interpretive Data was last revised on 2017. Monocyte pct 9.9 % [facility] Comment: Interpretive Data Percent cell count reference ranges are not reported, since discordance with absolute values may lead to misinterpretation of CBC data. Current Interpretive Data was last revised on 2017. Eosinophil pct 3.4 % [facility] Comment: Interpretive Data Percent cell count reference ranges are not reported, since discordance with absolute values may lead to misinterpretation of CBC data. Current Interpretive Data was last revised on 2017. Basophil pct 0.4 % [facility] Comment: Interpretive Data Percent cell count reference ranges are not reported, since discordance with absolute values may lead to misinterpretation of CBC data. Current Interpretive Data was last revised on 2017. Blood 10/16/2022 5:11 AM CDT 10/16/2022 5:34 AM CDT Jodee De Santiago MD LAB BLOOD ORDE RABLES Final Result Performing Organization Address City/[facility]/[place] [address] * Haptoglobin (10/16/2022 5:11 AM CDT) [facility] Haptoglobin 89.0 30.0 - 200.0 mg/dL [facility] Blood 10/16/2022 5:11 AM CDT 10/16/2022 5:34 AM CDT Jodee De Santiago MD LAB BLOOD ORDE RABVANNESA Final Result Performing Organization Address City/[facility] Co de Phone Number [facility] [place] [address] * Lactate dehydrogenase (LD) (10/16/2022 5:11 AM CDT) [facility] Lactate dehydrogenase (LDH) 226 100 - 250 Units/L [facility] Blood 10/16/2022 5:11 AM CDT 10/16/2022 5:34 AM CDT Jodee De Santiago MD LAB BLOOD ORDE RABLES Final Result Performing Organization Address City/[facility]/ZIP Co de Phone Number [facility] Department [place] [address] * F5 (FVL) and F2 (Prothrombin) Mutations (10/16/2022 5:11 AM CDT) [facility] Factor V Leiden F5 Normal Normal [facility] Factor V Leiden Interpretation The patient is negative for the Factor V Leiden mutation (F5:c.1601G>A, p.R534Q) with two copies of the normal allele. [facility] Prothrombin F2 Mutation Normal Normal [facility] Prothrombin F2 Interpretation The patient is negative for the prothrombin gene mutation (F2 c.*97G>A ([id number])) with two copies of the normal allele). [facility] FVL and Prothrombin Specimen Blood [facility] FVL and Prothrombin Result Review Final report reviewed by: GABRIELLA Caruso, AMISHA([facility]) Access Director, on 10/16/2022 16:33:24 CDT. [facility] Comment: Interpretive Data Testing was performed simultaneously for the presence of the F5:c.1601G>A(R534Q) (aka Factor V Leiden) mutation and the F2:c.*97G>A mutation. The presence of either of these F5 or F2 variants increases the relative risk of venous thromboembolism (VTE) but is not predictive of a thrombotic event. The population allele frequency for F5:c.1601G>A(R534Q) is up to 5% in persons of ancestry and 1.2% in those with ancestry. ??The reported frequency among other ethnicities is less than 3%. The increased risk of VTE for adults is 4-8 fold for F5 heterozygotes and 80-fold higher for F5 homozygotes. The population allele frequency for the F2:c.*97G>A mutation is approximately 1-3% in persons of ancestry and 0.3% in those with ancestry. ??The reported frequency among other ethnicities is less than 2%. The increased risk of VTE for adults is 2-5 fold for F2 heterozygotes and is higher, though not well-defined, for F2 homozygotes. The risk of VTE in individuals heterozygous for both F2 & F5 is 20-fold higher. Absence of these mutations does not indicate a lack of risk for VTE. Genetic counseling is recommended. Method: This assay utilizes the [employer] Xpert?? FII & FV qualitative in vitro diagnostic genotyping test for the detection of targeted FV and F2 alleles from sodium citrate or EDTA anticoagulated whole blood. This test is performed on the [employer] Dx System which automates and integrates sample purification, nucleic acid amplification, and detection of the target sequence in whole blood using real- time Polymerase Chain Reaction (PCR) assays based on [employer]?? PCR technology. Note: F5 (NM_[id number]):c.1601G>A, R534Q or Factor V Leiden is also referred to as c.1691G>A, p.R506Q in the literature. ?? FDA statement: The [employer] Xpert?? FII & FV qualitative in vitro diagnostic genotyping test for use on specimens from adult populations. The sustainable design coordinator did not evaluate testing on samples from pediatric patients (<18 years of age). The performance characteristics of this test on specimens from pediatric patients have been assessed by the [facility] and deemed acceptable for clinical reporting. The Cepheid Xpert?? FII & FV genotyping test is FDA-cleared for testing unprocessed peripheral blood specimens containing either EDTA or sodium citrate. Additional processing steps required for reflex testing have been assessed by the performing laboratory and deemed acceptable for clinical reporting. Limitations and interfering substances: The performance of the Xpert?? Factor II & Factor V Assay was validated using the procedures provided in the package insert only. Results from the Xpert Factor II & Factor V Assay should be interpreted in conjunction with other laboratory and clinical data available to the clinician. Rare Factor V variants including but not limited to: F5:c.1599G>A, F5:c.1602A>C, F5:c.1606A>G, rare Factor II mutations and any additional SNPs in the probe binding region, may interfere with the target detection and yield an invalid result. Patients on heparin therapy and receiving blood transfusions may have interfering substances that potentially lead to invalid or erroneous results. References: 1. Cepheid Xpert?? Factor II and Factor V package insert. [id number], Rev. B. November 2016. 2. Freedom FRAZIER, et al; MG Factor V Leiden Working Group. Natalia Med. 2001. 3:139- 48. 3. AGGIE Greenberg, et al. Nature. 2020. 581:434? 443 4. Amado POMPA. Factor V Leiden Thrombophilia. 1998September 02 [Updated 2018 Apr 25]. Available from: https://www.ncbi.nlm.nih.gov/books/WBV0986/ 5. Annmarie PM, et al. N Engl J Med. 1995. 332:912-17. 6. Alem MEZA and Edgar CHEEK. J Thromb Haemost. 2009. 7 Suppl 1:301? 4. 7. Joseph SPadmaja, et al. Natalia Med. 2018. 20:1489? 1498 This test was performed at: [facility], [facility]#[id number], Leticia Raya, Ph.D., [place], [address], [place] Current interpretive data was last revised 2022. Blood 10/16/2022 5:11 AM CDT 10/16/2022 6:59 AM CDT Jodee De Santiago MD LAB GENETIC TE STING Final Result Performing Organization Address [facility] Co de Phone Number [facility] Department [place] [address] * (ABNORMAL) TSH reflex to free T4 (10/16/2022 5:11 AM CDT) TSH 0.19(L) 0.30 - 4.20 mcIUnit/mL [facility] Blood 10/16/2022 5:11 AM CDT 10/16/2022 5:34 AM CDT Result [facility] Jodee De Santiago MD LAB BLOOD ORDE RABLES Final Result Performing Organization Address [facility] de Phone Number [facility] Department [place] [address] * Anti-double stranded DNA antibodies (10/16/2022 5:11 AM CDT) dsDNA Ab 2.0 <=4.0 IUnits/mL [facility] Comment: Interpretive Data Negative: < or = 4 IUnits/mL Indeterminate: 5 - 9 IUnits/mL Positive: > or = 10 IUnits/mL Current interpretive data was last revised on 2016. Blood 10/16/2022 5:11 AM CDT 10/16/2022 5:29 AM CDT Jodee De Santiago MD LAB BLOOD ORDE RABLES Final Result Performing Organization Address City/[facility] Co de Phone Number [facility] [place] [employer] [place] [address] * (ABNORMAL) Lamotrigine level (10/16/2022 5:11 AM CDT) Lamotrigine 0.5(L) 3.0 - 15.0 mcg/mL [facility] Comment: ADDITIONAL INFORMATION This test was developed and its performance characteristics determined by [facility] in a manner consistent with CLIA requirements. This test has not been cleared or approved by the U.S. Food and Drug Administration. Test Performed by: [place] [address] Pre School Manager: Tomas Leonardo M.D. Ph.D.; CLIA# [id number] Blood 10/16/2022 5:11 AM CDT 10/16/2022 5:29 AM CDT Jodee De Santiago MD LAB BLOOD KENDELL YOU Final Result Performing Organization Address [facility] [place] [address] * Magnesium (10/16/2022 5:11 AM CDT) Magnesium 2.1 1.4 - 2.5 mg/dL [facility] Blood 10/16/2022 5:11 AM CDT 10/16/2022 5:34 AM CDT Jodee De Santiago MD LAB BLOOD ORDE AVELINO Final Result Performing Organization Address City/[facility] Co de Phone Number [facility] [place] [employer] [place] [address] * (ABNORMAL) Comprehensive metabolic panel (10/16/2022 5:11 AM CDT) Sodium 134(L) 135 - 145 mmol/L [facility] Potassium, pl 4.4 3.3 - 4.9 mmol/L [facility] Chloride 101 97 - 110 mmol/L [facility] CO2 25 22 - 32 mmol/L [facility] Anion gap 8 2 - 15 mmol/L [facility] BUN 10 6 - 25 mg/dL [facility] Creatinine 0.97 0.60 - 1.10 mg/dL [facility] Glucose 88 70 - 199 mg/dL [facility] Comment: Interpretive Data Fasting glucose >/= [...] classification and Diagnosis of Diabetes Diabetes Care 202; 46: S19-S40. Current interpretive data was last revised 2022. Calcium 8.1(L) 8.5 - 10.3 mg/dL [facility] Bilirubin, total 0.2 0.1 - 1.2 mg/dL [facility] Protein, pl 5.9(L) 6.5 - 8.5 g/dL [facility] Albumin 3.2(L) 3.5 - 5.0 g/dL [facility] Alk phos 49 40 - 130 Units/L [facility] ALT 13 7 - 45 Units/L [facility] AST 22 10 - 45 Units/L [facility] Blood 10/16/2022 5:11 AM CDT 10/16/2022 5:34 AM CDT us Jodee De Santiago MD LAB BLOOD ORDNany YOU Final Result [facility] Department [place] [address] * (ABNORMAL) CBC with auto differential (10/16/2022 5:11 AM CDT) [facility] WBC 5.3 3.8 - 9.9 K/cumm [facility] Hgb 9.3(L) 11.9 - 15.5 g/dL [facility] Hct 28.3(L) 35.6 - 45.5 % [facility] Plt 208 150 - 400 K/cumm [facility] MPV 9.1 9.1 - 12.3 fL [facility] RBC 3.24(L) 3.90 - 5.20 M/cumm [facility] MCV 87.3 81.3 - 96.4 fL [facility] MCH 28.7 27.1 - 33.3 pg [facility] MCHC 32.9 32.3 - 35.7 g/dL [facility] RDW CV 12.4 11.1 - 14.9 % [facility] RDW SD 39.8 35.7 - 48.1 fL [facility] NRBC abs 0.00 0.00 - 0.01 K/cumm [facility] Blood 10/16/2022 5:11 AM CDT 10/16/2022 5:34 AM CDT Jodee De Santiago MD LAB BLOOD KENDELL YOU Final Result [facility] Department [place] [address] * Lipid panel (10/16/2022 5:11 AM CDT) Pathologist [facility] Cholesterol 148 30 - 199 mg/dL [facility] Comment: Interpretive Data Ages < or = 19 years ??Acceptable: ? <170 mg/dL ??Borderline high: ??170-199 mg/dL ??High: ? >or= 200 mg/dL Ages > or = 20 years ??Desirable: ?<200 mg/dL ??Borderline high: ??200-239 mg/dL ??High: ? >or= 240 mg/dL Literature References: 1. Expert Panel on Integrated Guidelines for Cardiovascular Health and Risk Reduction in Children and Adolescents. Pediatrics 2011;128:S213 2. NCEP Expert Panel. Circulation 2004;110:227 Current Interpretive Data was last revised on 2017. Triglycerides 139 <=149 mg/dL [facility] Comment: Interpretive Data Ages < or = 9 years ??Acceptable: ? <75 mg/dL ??Borderline high: ??75-99 mg/dL ??High: ? >or= 100 mg/dL Ages 10 to 20 years ??Acceptable: ? <90 mg/dL ??Borderline high: ??90-129 mg/dL ??High: ? >or= 130 mg/dL Ages > or = 20 years ??Desirable: ?<150 mg/dL ??Borderline high: ??150-199 mg/dL ??High: ? 200-499 mg/dL ?Very high: ?? >or= 499 mg/dL Literature References: 1. Expert Panel on Integrated Guidelines for Cardiovascular Health and Risk Reduction in Children and Adolescents. Pediatrics 2011;128:S213 2. NCEP Expert Panel. Circulation 2004;110:227 Current Interpretive Data was last revised on 2017. HDL 49 >=40 mg/dL [facility] Comment: Interpretive Data Ages < or = 19 years ??Acceptable: ? >45 mg/dL ??Borderline low: ?? 40-45 mg/dL ??Low: ? <40 mg/dL Ages > or = 20 years ??Desirable: ?>or= 60 mg/dL ??Low: ? <40 mg/dL Literature References: 1. Expert Panel on Integrated Guidelines for Cardiovascular Health and Risk Reduction in Children and Adolescents. Pediatrics 2011;128:S213 2. NCEP Expert Panel. Circulation 2004;110:227 Current Interpretive Data was last revised on 2017. LDL, calculated 71 <=129 mg/dL [facility] Comment: Interpretive Data Ages < or = 19 years ??Acceptable: ? <110 mg/dL ??Borderline high: ??110-129 mg/dL ??High: ?>or= 130 mg/dL Ages > or = 20 years ??Optimal: ? <100 mg/dL ??Near optimal: ?100-129 mg/dL ??Borderline high: ?? 130-159 mg/dL ??High: ?>160 mg/dL Literature References: 1. Expert Panel on Integrated Guidelines for Cardiovascular Health and Risk Reduction in Children and Adolescents. Pediatrics 2011;128:S213 2. NCEP Expert Panel. Circulation 2004;110:227 Current Interpretive Data was last revised on 2017. Non-HDL Cholesterol 99 mg/dL [facility] Comment: Interpretive Data Ages < or = 19 years ??Acceptable: ?<120 mg/dL ??Borderline high: ??120-144 mg/dL ??High: ?>145 mg/dL Ages > or = 20 years ??When triglycerides are >200 mg/dL, Non-HDL cholesterol is a secondary target of ? therapy with treatment goals that are 30 mg/dL greater than the LDL cholesterol target. ? Literature References: 1. Expert Panel on Integrated Guidelines for Cardiovascular Health and Risk Reduction in Children and Adolescents. Pediatrics 2011;128:S213 2. NCEP Expert Panel. Circulation 2004;110:227 Current Interpretive Data was last revised on 2017. Chol/HDL ratio 3 [facility] Blood 10/16/2022 5:11 AM CDT 10/16/2022 5:34 AM CDT us Jodee De Santiago MD LAB BLOOD KENDELL YOU Final Result [facility] Department [place] [address] * (ABNORMAL) Iron profile w/ IBC (10/16/2022 5:11 AM CDT) [facility] Iron 24(L) 35 - 145 mcg/dL [facility] TIBC 252 250 - 400 mcg/dL [facility] Transferrin saturation 10(L) 20 - 50 % [facility] Blood 10/16/2022 5:11 AM CDT 10/16/2022 5:34 AM CDT Jodee De Santiago MD LAB BLOOD ORDE RABLES Final Result Performing Organization Address City/[facility] [place] [address] * Hemoglobin A1c (10/16/2022 5:11 AM CDT) [facility] Hgb A1C 5.1 4.0 - 5.6 % [facility] Estimated Average Glucose 100 mg/dL [facility] Comment: The ADA recommends reporting an estimated Average Glucose (eAG) with all Hemoglobin A1c results using the equation derived from a study of 507 normal and diabetic adults. ??Minority populations were underrepresented and children were not included. ?? (Diabetes Care 2020; 43(S1): S66-S76). ??The eAG is not equivalent to a fasting glucose. Blood 10/16/2022 5:11 AM CDT 10/16/2022 5:34 AM CDT Jodee De Santiago MD LAB BLOOD ORDE RABLES Final Result Performing Organization Address City/[facility]/ZIP [place] [address] * Ferritin (10/16/2022 5:11 AM CDT) [facility] Ferritin 95 13 - 150 ng/mL [facility] Blood 10/16/2022 5:11 AM CDT 10/16/2022 5:34 AM CDT Jodee De Santiago MD LAB BLOOD ORDE AVELINO Final Result Performing Organization Address [facility] Co de Phone Number [facility] Department [place] [address] * GOVIND Antibody Evaluation with Reflex (10/16/2022 5:11 AM CDT) GOVIND ab Negative Negative [facility] Comment: Interpretive Data Positive Screens will be reflexed to specific testing for Antibodies against the following antigens: Victoria-1 Ab, TIMBER HARVESTER OPERATOR Ab, Scl-70 Ab, Haywood Ab, SS-A/Ro Ab, and SS- B/La Ab. Further testing for dsDNA, Centromere, or Ribosomal P antibodies is suggested in patient with a positive screen and negative specific antibodies. Current interpretive data was last revised on 2022. Blood 10/16/2022 5:11 AM CDT 10/16/2022 5:29 AM CDT Jodee De Santiago MD LAB BLOOD ORDE AVELINO Final Result Performing Organization Address [facility] de Phone Number [facility] Department [place] [address] * CIARRA Reflex to Quantitative and dsDNA (10/16/2022 5:11 AM CDT) CIARRA Positive 1:160 [facility] Comment: Interpretive Data Normal range for CIARRA [...] interpretive data was last revised on 2019. CIARRA, quant 1:160 titer [facility] CIARRA, interp Speckled [facility] Blood 10/16/2022 5:11 AM CDT 10/16/2022 5:29 AM CDT Jodee De Santiago MD LAB BLOOD ORDNany YOU Final Result Performing Organization Address City/[facility]/ZIP Co de Phone Number [facility] [place] [employer] [place] [address] * Vitamin K (10/16/2022 5:11 AM CDT) Phylloquinone (Vit K) 0.26 0.10 - 2.20 ng/mL [facility] Comment: ADDITIONAL INFORMATION This test was developed and its performance characteristics determined by [facility] in a manner consistent with CLIA requirements. This test has not been cleared or approved by the U.S. Food and Drug Administration. Test Performed by: [place] [address] Pre School Manager: Tomas Leonardo M.D. Ph.D.; CLIA# [id number] Blood 10/16/2022 5:11 AM CDT 10/16/2022 5:29 AM CDT Jodee De Santiago MD LAB BLOOD ORDE AVELINO Final Result Performing Organization Address City/[facility]/ZIP Co de Phone Number [facility] [place] [address] * Protein S antigen, free (10/16/2022 5:11 AM CDT) Protein S, free 70 55 - 160 % [facility] Blood 10/16/2022 5:11 AM CDT 10/16/2022 5:29 AM CDT Jodee De Santiago MD LAB BLOOD ORDE RABLES Final Result Performing Organization Address [facility] Co de Phone Number [facility] [place] [address] * Protein C activity (10/16/2022 5:11 AM CDT) Pathologist [facility] Protein C 81 60 - 150 % [facility] Blood 10/16/2022 5:11 AM CDT 10/16/2022 5:29 AM CDT Jodee De Santiago MD LAB BLOOD ORDE RABVANNESA Final Result Performing Organization Address [facility] Phone Number [facility] [place] [address] * ECG 12 lead (10/16/2022 1:58 AM CDT) Pathologist [facility] Ventricular Rate EKG/Min 84 BPM [facility] Atrial Rate 84 BPM [facility] OR-Interval (MSEC) 136 ms [facility] QRS-Interval (MSEC) 72 ms [facility] QT-Interval (MSEC) 382 ms [facility] QTc 451 ms [facility] P [place] 53 degrees [facility] R [place] 69 degrees [facility] T [place] 46 degrees [facility] Diagnosis Normal sinus rhythm Low voltage QRS Borderline ECG No previous ECGs available [facility] 10/16/2022 1:58 AM CDT 10/16/2022 4:40 PM CDT Jodee De Santiago MD ECG ORDERABLES Final Result Performing Organization Address [facility] Phone Number [facility] * aPTT (10/16/2022 12:29 AM CDT) aPTT 33 28 - 38 sec [facility] Comment: Interpretive Data Therapeutic heparin range: 60.0 - 94.0 seconds. Based on correlation with therapeutic heparin activity range of 0.3-0.7 Units/mL. Current interpretive data was last revised on 2020. Blood 10/16/2022 12:2 9 AM CDT 10/16/2022 12:38 AM CDT Narrative [facility] - 10/16/2022 1:09 AM CDT Draw STAT PTT 6 hrs after initiation of heparin infusion, draw STAT PTT 6 hours after each dose change, and every 6 hours until 2 consecutive PTTs are within therapeutic range. Once two consecutive PTT's are therapeutic (60-94.9 seconds), then draw PTT every AM until heparin is discontinued. us Toya Leiva MD LAB BLOOD ORDERABLES Final R esult Performing Organization Address City/[facility] Co de Phone Number [facility] [place] [employer] [place] [address] * (ABNORMAL) Urinalysis, microscopic only (10/15/2022 11:34 PM CDT) WBC, ur 0-5 0 - 5 /HPF [facility] RBC, ur 11-20(A) 0 - 2 /HPF [facility] Epithelial cells, squamous, ur 1-5 0 - 5 /HPF [facility] Bacteria, ur Trace(A) [facility] Mucous, ur Present(A) [facility] Urine 10/15/2022 11:3 4 PM CDT 10/15/2022 11:44 PM CDT us Jodee De Santiago MD LAB URINE ORDE RABLES Final Result Performing Organization Address City/[facility]/ZIP Co de Phone Number [facility] [place] [employer] [address] * (ABNORMAL) Protein / creatinine ratio, urine, random (10/15/2022 11:34 PM CDT) Protein, ur, quant 22.8 mg/dL [facility] Comment: Interpretive Data No reference range established. Current interpretive data was last revised 2018. Creatinine Ur 105.3 mg/dL [facility] Comment: Interpretive Data No reference range established. Current interpretive data was last revised 2018. Protein/creatinin e ratio 216.5(H) 0.0 - 180.0 mg/g CR [facility] Urine 10/15/2022 11:3 4 PM CDT 10/15/2022 11:47 PM CDT Jodee De Santiago MD LAB URINE ORDE AVELINO Final Result [facility] Department [place] [address] * (ABNORMAL) Urinalysis reflex to microscopic (10/15/2022 11:34 PM CDT) Color, ur Yellow Yellow [facility] Clarity, ur Clear Clear [facility] Specific gravity, ur >1.042(H) 1.003 - 1.030 [facility] pH, urine 7.0 [facility] Protein, ur ql 1+(A) Negative [facility] Glucose, ur ql Negative Negative [facility] Ketones, ur Negative Negative [facility] Bilirubin, ur Negative Negative [facility] Blood, ur 1+(A) Negative [facility] Urobilinogen, ur <2.0 <2.0 mg/dL [facility] Nitrite, ur Negative Negative [facility] Leukocyte esterase, ur Negative Negative [facility] UA reflex comment Reflex to microscopic UA will be performed. [facility] Urine 10/15/2022 11:3 4 PM CDT 10/15/2022 11:44 PM CDT Narrative [facility] - 10/15/2022 11:50 PM CDT ?? Urine pH is affected by diet, medications, systemic acid-base disturbances, and renal tubular function. ??pH may affect urinary stone formation. ??For example, urine pH below 6.0 may help reduce the tendency for calcium phosphate stones and pH greater than 6.0 may reduce the tendency for uric acid stone formation. Source: [facility] [employer]. Last revised 05-02-2017 Jodee De Santiago MD LAB URINE ORDE RABLES Final Result Performing Organization Address City/[facility] Co de Phone Number [facility] [place] [address] * Critical Result Callback Hematology (10/15/2022 6:10 PM CDT) Date Notified [id number] [facility] Time Notified 1855 [facility] TestName aPTT [facility] Called/Read Back Heron AVALOS Credentials MD [facility] Called By preet AVALOS Blood 10/15/2022 6:10 PM CDT 10/15/2022 6:18 PM CDT Jodee De Santiago MD LAB BLOOD ORDE RABLES Final Result Performing Organization Address [facility] de Phone Number [facility] [place] [address] * (ABNORMAL) aPTT (10/15/2022 6:10 PM CDT) aPTT >150(C) 28 - 38 sec [facility] Comment: No clot detected in sample Repeated and verified - [id number] - 10/15/22, 6:52 PM Interpretive Data Therapeutic heparin range: 60.0 - 94.0 seconds. Based on correlation with therapeutic heparin activity range of 0.3-0.7 Units/mL. Current interpretive data was last revised on 2020. Blood 10/15/2022 6:10 PM CDT 10/15/2022 6:18 PM CDT Jodee De Santiago MD LAB BLOOD ORDE RABLES Final Result Performing Organization Address City/[facility] Co de Phone Number [facility] Department [place] [address] * IR Percutaneous Thrombectomy Vein Left (10/15/2022 5:40 PM CDT) Anatomical Region Laterality Modality Body Left X-Ray Angiograph y 10/15/2022 6:52 PM CDT Impressions 10/15/2022 6:55 PM CDT 1. ??Successful left lower extremity angiogram demonstrating acute thrombosis of the left common iliac, external iliac, and common femoral veins. ?? 2. Successful percutaneous mechanical thrombectomy of the left iliofemoral system with marked clot burden reduction and improved antegrade venous drainage. ?? 3. Successful left common iliac vein self expandable stent deployment for the treatment of a May-Thurner lesion. PLAN: The patient will remain supine with both lower extremities flat 2 hours postprocedure. ??The patient should immediately have sequential compression devices (SCDs) placed on both legs to the level of the thigh to ensure good venous inflow and maintain stent patency. ??The patient should be transitioned from a heparin drip to therapeutic Lovenox this evening. ??Furthermore, the patient should be loaded with Plavix 300 mg once . ??She will begin Plavix 75 mg once daily thereafter. ??Interventional radiology will continue to follow. ??We will also plan for a follow up CT venogram with left leg venous duplex US in 1 month with a clinic visit to assess her response to treatment. Dictated by: Dada Lopez M.D. The radiology attending physician has personally reviewed this study, and had reviewed and/or edited this written report and agrees with it. Electronically signed by: Umberto Garcia M.D. Narrative 10/15/2022 6:55 PM CDT EXAMINATION: ?? 1. ??IMAGE GUIDED PERCUTANEOUS MECHANICAL THROMBECTOMY OF LEFT LOWER EXTREMITY ACUTE DEEP VENOUS THROMBOSIS 2. ??IMAGE GUIDED PERCUTANEOUS TRANSLUMINAL ANGIOPLASTY AND STENT DEPLOYMENT OF LEFT COMMON ILIAC VEIN HISTORY/INDICATION: ??42-year-old female presenting with left lower extremity pain, swelling, and purple discoloration of [address] and Doppler demonstrating extensive left iliofemoral, popliteal, and tibial thrombosis. ??The patient presents to interventional radiology for catheter directed therapy. ATTENDING PRESENCE: ??Umberto Garcia M.D., the attending radiologist was present from the beginning to the end of the procedure. ?? SEDATION: Procedural sedation was administered under the attending physician's direction and continuous monitoring by a trained nurse specialist who was independent from those actually performing the procedure. ??Total monitored sedation time was 90 minutes. TECHNIQUE: ??The risks, benefits and alternatives were discussed and informed consent was obtained. Prior to beginning the procedure, [place] Protocol was performed to confirm the patient's identity and the planned procedure. ??For procedures that utilize fluoroscopy, the fluoroscopy time has been recorded in the electronic medical record. Maximum sterile barriers including cap, mask, hand hygiene, sterile gloves, sterile gown, large sterile drape and 2% chlorhexidine for cutaneous antisepsis were used. The patient was positioned prone on the fluoroscopy table. ??Both right and left popliteal fossae were sterilely prepped and draped in usual fashion. ??An ultrasound image of both a right and left popliteal vein were taken and saved to PACS. Attention was 1st turned to the left lower extremity. ??A partially thrombosed left popliteal vein was accessed under continuous sonographic guidance with a 21 gauge micropuncture needle. ??A micro wire was passed through the access needle into the left distal femoral vein. ??The access needle was then exchanged for a 5 Albanian transitional dilator. ??Through this 5 Albanian outer dilator, a left lower extremity angiogram was performed in multiple stations to the level of the left common femoral vein. ?? Fluoroscopy was used for all catheter and guidewire manipulation. Using a 100 cm vert catheter and Bentson guidewire, the system was navigated through the right external iliac vein, common iliac vein, inferior vena cava, with ultimate tip position in the superior vena cava. ??The Bentson wire was removed and contrast injected to confirm positioning. ??Next, a exchange length Amplatz was advanced through the vert to serve as a working wire. ?? The vert catheter was then removed, the tract dilated, and ultimately a 19 Albanian Inari ClotTriever sheath was placed. ??Through this, a 16 Albanian Inari ClotTriever catheter was passed into the right common iliac, external iliac, and common femoral veins. A total of three passes with this device were performed. ??Repeat left lower extremity venogram was performed. ?? The decision was made to proceed with right popliteal vein access. Access was gained in a similar fashion to the original left leg. Ultimately, a 5 Albanian vert catheter was positioned in the contralateral, right common iliac vein to assist with stent landing zone mapping. First, the left common iliac vein was pre dilated using a 10 mm x 4 cm balloon. ??Next, a 16 mm x 10 cm Abre self expanding stent was deployed in the left common iliac vein. ??The stent was post dilated using a 14 mm by 6 cm balloon. Final left lower extremity venogram was performed. ??Both sheaths were removed. ??A 4 0 Monocryl pursestring suture was placed at the left sheath exit site. ??Both access points were sealed with Dermabond. ESTIMATED BLOOD LOSS: ??90 cc CONDITION: Stable DISCHARGED TO: ??Emergency department FINDINGS: ??Preprocedure sonogram of the left popliteal vein demonstrates a partially thrombosed vessel. ??The contralateral, right popliteal vein is widely patent. ?? Initial left lower extremity venogram demonstrates the mid segment and distal segment of the left femoral vein are widely patent. ??Acute thrombus is identified within the proximal left femoral vein. ??Acute thrombus is also identified within the left external iliac and left common iliac veins. ??Few collaterals opacify about the left groin suggesting acuity. ??No evidence of thrombus in the inferior vena cava. Post thrombectomy venogram demonstrates a marked reduction in clot burden with improved antegrade flow from the calf to the IVC. ??A persistent flow-limiting stenosis is identified within the origin of the left common iliac vein suggestive of May-Thurner lesion. ??Intra procedural fluoroscopic images demonstrate stent deployment within the left common iliac vein. ??Final venogram confirms minimal residual clot burden with improved antegrade venous return to the heart. Procedure Note Umberto Garcia MD - 10/15/2022 EXAMINATION: 1. IMAGE GUIDED PERCUTANEOUS MECHANICAL THROMBECTOMY OF LEFT LOWER EXTREMITY ACUTE DEEP VENOUS THROMBOSIS 2. IMAGE GUIDED PERCUTANEOUS TRANSLUMINAL ANGIOPLASTY AND STENT DEPLOYMENT OF LEFT COMMON ILIAC VEIN HISTORY/INDICATION: 42-year-old female presenting with left lower extremity pain, swelling, and purple discoloration of [address] and Doppler demonstrating extensive left iliofemoral, popliteal, and tibial thrombosis. The patient presents to interventional radiology for catheter directed therapy. ATTENDING PRESENCE: Umberto Garcia M.D., the attending radiologist was present from the beginning to the end of the procedure. SEDATION: Procedural sedation was administered under the attending physician's direction and continuous monitoring by a trained nurse specialist who was independent from those actually performing the procedure. Total monitored sedation time was 90 minutes. TECHNIQUE: The risks, benefits and alternatives were discussed and informed consent was obtained. Prior to beginning the procedure, [place] Protocol was performed to confirm the patient's identity and the planned procedure. For procedures that utilize fluoroscopy, the fluoroscopy time has been recorded in the electronic medical record. Maximum sterile barriers including cap, mask, hand hygiene, sterile gloves, sterile gown, large sterile drape and 2% chlorhexidine for cutaneous antisepsis were used. The patient was positioned prone on the fluoroscopy table. Both right and left popliteal fossae were sterilely prepped and draped in usual fashion. An ultrasound image of both a right and left popliteal vein were taken and saved to PACS. Attention was 1st turned to the left lower extremity. A partially thrombosed left popliteal vein was accessed under continuous sonographic guidance with a 21 gauge micropuncture needle. A micro wire was passed through the access needle into the left distal femoral vein. The access needle was then exchanged for a 5 Albanian transitional dilator. Through this 5 Albanian outer dilator, a left lower extremity angiogram was performed in multiple stations to the level of the left common femoral vein. Fluoroscopy was used for all catheter and guidewire manipulation. Using a 100 cm vert catheter and Bentson guidewire, the system was navigated through the right external iliac vein, common iliac vein, inferior vena cava, with ultimate tip position in the superior vena cava. The Bentson wire was removed and contrast injected to confirm positioning. Next, a exchange length Amplatz was advanced through the vert to serve as a working wire. The vert catheter was then removed, the tract dilated, and ultimately a 19 Albanian Inari ClotTriever sheath was placed. Through this, a 16 Albanian Inari ClotTriever catheter was passed into the right common iliac, external iliac, and common femoral veins. A total of three passes with this device were performed. Repeat left lower extremity venogram was performed. The decision was made to proceed with right popliteal vein access. Access was gained in a similar fashion to the original left leg. Ultimately, a 5 Albanian vert catheter was positioned in the contralateral, right common iliac vein to assist with stent landing zone mapping. First, the left common iliac vein was pre dilated using a 10 mm x 4 cm balloon. Next, a 16 mm x 10 cm Abre self expanding stent was deployed in the left common iliac vein. The stent was post dilated using a 14 mm by 6 cm balloon. Final left lower extremity venogram was performed. Both sheaths were removed. A 4 0 Monocryl pursestring suture was placed at the left sheath exit site. Both access points were sealed with Dermabond. ESTIMATED BLOOD LOSS: 90 cc CONDITION: Stable DISCHARGED TO: Emergency department FINDINGS: Preprocedure sonogram of the left popliteal vein demonstrates a partially thrombosed vessel. The contralateral, right popliteal vein is widely patent. Initial left lower extremity venogram demonstrates the mid segment and distal segment of the left femoral vein are widely patent. Acute thrombus is identified within the proximal left femoral vein. Acute thrombus is also identified within the left external iliac and left common iliac veins. Few collaterals opacify about the left groin suggesting acuity. No evidence of thrombus in the inferior vena cava. Post thrombectomy venogram demonstrates a marked reduction in clot burden with improved antegrade flow from the calf to the IVC. A persistent flow-limiting stenosis is identified within the origin of the left common iliac vein suggestive of May-Thurner lesion. Intra procedural fluoroscopic images demonstrate stent deployment within the left common iliac vein. Final venogram confirms minimal residual clot burden with improved antegrade venous return to the heart. IMPRESSION: 1. Successful left lower extremity angiogram demonstrating acute thrombosis of the left common iliac, external iliac, and common femoral veins. 2. Successful percutaneous mechanical thrombectomy of the left iliofemoral system with marked clot burden reduction and improved antegrade venous drainage. 3. Successful left common iliac vein self expandable stent deployment for the treatment of a May-Thurner lesion. PLAN: The patient will remain supine with both lower extremities flat 2 hours postprocedure. The patient should immediately have sequential compression devices (SCDs) placed on both legs to the level of the thigh to ensure good venous inflow and maintain stent patency. The patient should be transitioned from a heparin drip to therapeutic Lovenox this evening. Furthermore, the patient should be loaded with Plavix 300 mg once . She will begin Plavix 75 mg once daily thereafter. Interventional radiology will continue to follow. We will also plan for a follow up CT venogram with left leg venous duplex US in 1 month with a clinic visit to assess her response to treatment. Dictated by: Dada Lopez M.D. The radiology attending physician has personally reviewed this study, and had reviewed and/or edited this written report and agrees with it. Electronically signed by: Umberto Garcia M.D. us Toya Leiva MD IMG IR PROCEDURES Final Resu lt * CT Abdomen Pelvis W Contrast (10/15/2022 12:21 PM CDT) Anatomical Region Laterality Modality Body N/A Computed Tomogra phy 10/15/2022 12:4 0 PM CDT Impressions 10/15/2022 12:40 PM CDT 1. ??Findings suggestive of left femoral and iliac deep vein thrombosis. Electronically signed by: Luis Hagan M.D. Narrative 10/15/2022 12:40 PM CDT EXAMINATION: ??Computed tomography of the abdomen/pelvis with intravenous contrast HISTORY: Left lower extremity DVT TECHNIQUE: ??Transaxial computed tomographic images of the abdomen/pelvis ??were obtained with intravenous contrast according to the standard protocol after the uneventful administration of 100 mL Opti-Ray 350 intravenous contrast. COMPARISON: 09/15/2022 FINDINGS: ?? Clear lung bases. ??Normal heart size. ??No focal liver lesions. ??No biliary duct dilatation. ??Patent portal and superior mesenteric veins. ??Normal gallbladder, pancreas, adrenal glands, and spleen. ??No hydronephrosis involving either kidney. ??Normal appearance of the bladder. ??The previously noted mass along the posterior aspect of the uterus is similar to the prior examination and better evaluated by pelvic ultrasound. ??No abnormal bowel wall thickening or dilatation. There is no abdominal or pelvic lymphadenopathy. There is soft tissue stranding adjacent to the left superficial femoral and common femoral veins which extends along the left iliac vasculature. ??These vessels appear slightly expanded. ??The appearance is new when compared to the prior exam 09/15/2022. Bone windows show no suspicious lytic or blastic lesions. Procedure Note Luis Hagan MD - 10/15/2022 EXAMINATION: Computed tomography of the abdomen/pelvis with intravenous contrast HISTORY: Left lower extremity DVT TECHNIQUE: Transaxial computed tomographic images of the abdomen/pelvis were obtained with intravenous contrast according to the standard protocol after the uneventful administration of 100 mL Opti-Ray 350 intravenous contrast. COMPARISON: 09/15/2022 FINDINGS: Clear lung bases. Normal heart size. No focal liver lesions. No biliary duct dilatation. Patent portal and superior mesenteric veins. Normal gallbladder, pancreas, adrenal glands, and spleen. No hydronephrosis involving either kidney. Normal appearance of the bladder. The previously noted mass along the posterior aspect of the uterus is similar to the prior examination and better evaluated by pelvic ultrasound. No abnormal bowel wall thickening or dilatation. There is no abdominal or pelvic lymphadenopathy. There is soft tissue stranding adjacent to the left superficial femoral and common femoral veins which extends along the left iliac vasculature. These vessels appear slightly expanded. The appearance is new when compared to the prior exam 09/15/2022. Bone windows show no suspicious lytic or blastic lesions. IMPRESSION: 1. Findings suggestive of left femoral and iliac deep vein thrombosis. Electronically signed by: Luis Hagan M.D. Toya Leiva MD IMG CT PROCEDURES Final Resu lt * CTA Neck W WO Contrast (10/15/2022 12:21 PM CDT) Anatomical Region Laterality Modality Head and Neck N/A Computed Tomogra phy 10/15/2022 1:08 PM CDT Impressions 10/15/2022 2:40 PM CDT No acute intracranial hemorrhage. Mild tortuosity of the right cervical internal carotid artery without significant stenosis of the neck vasculature. Dictated by: Codey Ortiz M.D. The radiology attending physician has personally reviewed this study, and had reviewed and/or edited this written report and agrees with it. Electronically signed by: Ramone Ortega M.D. Narrative 10/15/2022 2:40 PM CDT EXAMINATION: Computed tomography ??of the head without contrast Computed tomography angiography (CTA) of the neck without and with contrast HISTORY: Lower extremity DVT, history of systemic lupus erythematosus TECHNIQUE: Computed tomography of the head was performed without contrast according to standard protocol. Computed tomographic angiography was then obtained from the aortic arch to the skull base following the uneventful administration of intravenous contrast. 3D images were generated on a dedicated workstation. Contrast information: 75 mL Optiray-350 COMPARISON: None available. FINDINGS: There is mucosal thickening in the maxillary sinuses with an air-fluid level noted on the left. Topogram demonstrates no lytic lesions or fractures. There is no acute intracranial hemorrhage . Ventricles are of normal size and morphology. No mass effect or midline shift is present. The garduno-white matter differentiation is normal. The visualized portions of the orbits are normal. The visualized portions of the mastoids are normal. No fractures are identified. There is reversal of the typical cervical lordosis with apex to C5-C6. ??There is moderate multilevel cervical spondylosis most pronounced C5-C6 where there is an associated small posterior disc osteophyte complexes. Scattered subcentimeter lymph nodes are seen in the neck. None are pathologically enlarged or abnormally enhancing. The muscles of the neck are normal. Fascial planes are preserved and the deep spaces of the neck are normal. The visualized airway is widely patent. The spinal canal is normal in caliber. Neural foramina are normal. Limited examination of the superior thorax shows no pulmonary infiltrate, suspicious nodules, or pleural effusions. Angiographic findings: The right cervical internal carotid artery is tortuous without significant stenosis. The visualized aortic arch appears normal with normal configuration of the great vessels. The innominate artery and both subclavian arteries are normal in course and caliber. The common carotid arteries are normal in course and caliber with normal carotid bifurcations bilaterally. The course and caliber of the internal carotid arteries are normal. No areas of atherosclerotic narrowing or filling defects are identified. The [id number] is complete. The anterior and middle cerebral arteries are normal. The vertebral arteries are codominant. The basilar artery is normal. The posterior cerebral arteries are normal. There is no aneurysm or vascular malformation identified. Procedure Note Ramone Ortega MD - 10/15/2022 EXAMINATION: Computed tomography of the head without contrast Computed tomography angiography (CTA) of the neck without and with contrast HISTORY: Lower extremity DVT, history of systemic lupus erythematosus TECHNIQUE: Computed tomography of the head was performed without contrast according to standard protocol. Computed tomographic angiography was then obtained from the aortic arch to the skull base following the uneventful administration of intravenous contrast. 3D images were generated on a dedicated workstation. Contrast information: 75 mL Optiray-350 COMPARISON: None available. FINDINGS: There is mucosal thickening in the maxillary sinuses with an air-fluid level noted on the left. Topogram demonstrates no lytic lesions or fractures. There is no acute intracranial hemorrhage . Ventricles are of normal size and morphology. No mass effect or midline shift is present. The garduno-white matter differentiation is normal. The visualized portions of the orbits are normal. The visualized portions of the mastoids are normal. No fractures are identified. There is reversal of the typical cervical lordosis with apex to C5-C6. There is moderate multilevel cervical spondylosis most pronounced C5-C6 where there is an associated small posterior disc osteophyte complexes. Scattered subcentimeter lymph nodes are seen in the neck. None are pathologically enlarged or abnormally enhancing. The muscles of the neck are normal. Fascial planes are preserved and the deep spaces of the neck are normal. The visualized airway is widely patent. The spinal canal is normal in caliber. Neural foramina are normal. Limited examination of the superior thorax shows no pulmonary infiltrate, suspicious nodules, or pleural effusions. Angiographic findings: The right cervical internal carotid artery is tortuous without significant stenosis. The visualized aortic arch appears normal with normal configuration of the great vessels. The innominate artery and both subclavian arteries are normal in course and caliber. The common carotid arteries are normal in course and caliber with normal carotid bifurcations bilaterally. The course and caliber of the internal carotid arteries are normal. No areas of atherosclerotic narrowing or filling defects are identified. The [id number]-[id number] is complete. The anterior and middle cerebral arteries are normal. The vertebral arteries are codominant. The basilar artery is normal. The posterior cerebral arteries are normal. There is no aneurysm or vascular malformation identified. IMPRESSION: No acute intracranial hemorrhage. Mild tortuosity of the right cervical internal carotid artery without significant stenosis of the neck vasculature. Dictated by: Codey Ortiz M.D. The radiology attending physician has personally reviewed this study, and had reviewed and/or edited this written report and agrees with it. Electronically signed by: Ramone Ortega M.D. Toya Leiva MD IMG CT PROCEDURES Final Resu lt * CT Head WO Contrast (10/15/2022 12:21 PM CDT) Anatomical Region Laterality Modality Head and Neck N/A Computed Tomogra phy 10/15/2022 1:08 PM CDT Impressions 10/15/2022 2:40 PM CDT No acute intracranial hemorrhage. Mild tortuosity of the right cervical internal carotid artery without significant stenosis of the neck vasculature. Dictated by: Codey Ortiz M.D. The radiology attending physician has personally reviewed this study, and had reviewed and/or edited this written report and agrees with it. Electronically signed by: Ramone Ortega M.D. Narrative 10/15/2022 2:40 PM CDT EXAMINATION: Computed tomography ??of the head without contrast Computed tomography angiography (CTA) of the neck without and with contrast HISTORY: Lower extremity DVT, history of systemic lupus erythematosus TECHNIQUE: Computed tomography of the head was performed without contrast according to standard protocol. Computed tomographic angiography was then obtained from the aortic arch to the skull base following the uneventful administration of intravenous contrast. 3D images were generated on a dedicated workstation. Contrast information: 75 mL Optiray-350 COMPARISON: None available. FINDINGS: There is mucosal thickening in the maxillary sinuses with an air-fluid level noted on the left. Topogram demonstrates no lytic lesions or fractures. There is no acute intracranial hemorrhage . Ventricles are of normal size and morphology. No mass effect or midline shift is present. The garduno-white matter differentiation is normal. The visualized portions of the orbits are normal. The visualized portions of the mastoids are normal. No fractures are identified. There is reversal of the typical cervical lordosis with apex to C5-C6. ??There is moderate multilevel cervical spondylosis most pronounced C5-C6 where there is an associated small posterior disc osteophyte complexes. Scattered subcentimeter lymph nodes are seen in the neck. None are pathologically enlarged or abnormally enhancing. The muscles of the neck are normal. Fascial planes are preserved and the deep spaces of the neck are normal. The visualized airway is widely patent. The spinal canal is normal in caliber. Neural foramina are normal. Limited examination of the superior thorax shows no pulmonary infiltrate, suspicious nodules, or pleural effusions. Angiographic findings: The right cervical internal carotid artery is tortuous without significant stenosis. The visualized aortic arch appears normal with normal configuration of the great vessels. The innominate artery and both subclavian arteries are normal in course and caliber. The common carotid arteries are normal in course and caliber with normal carotid bifurcations bilaterally. The course and caliber of the internal carotid arteries are normal. No areas of atherosclerotic narrowing or filling defects are identified. The [id number] is complete. The anterior and middle cerebral arteries are normal. The vertebral arteries are codominant. The basilar artery is normal. The posterior cerebral arteries are normal. There is no aneurysm or vascular malformation identified. Procedure Note Ramone Ortega MD - 10/15/2022 EXAMINATION: Computed tomography of the head without contrast Computed tomography angiography (CTA) of the neck without and with contrast HISTORY: Lower extremity DVT, history of systemic lupus erythematosus TECHNIQUE: Computed tomography of the head was performed without contrast according to standard protocol. Computed tomographic angiography was then obtained from the aortic arch to the skull base following the uneventful administration of intravenous contrast. 3D images were generated on a dedicated workstation. Contrast information: 75 mL Optiray-350 COMPARISON: None available. FINDINGS: There is mucosal thickening in the maxillary sinuses with an air-fluid level noted on the left. Topogram demonstrates no lytic lesions or fractures. There is no acute intracranial hemorrhage . Ventricles are of normal size and morphology. No mass effect or midline shift is present. The garduno-white matter differentiation is normal. The visualized portions of the orbits are normal. The visualized portions of the mastoids are normal. No fractures are identified. There is reversal of the typical cervical lordosis with apex to C5-C6. There is moderate multilevel cervical spondylosis most pronounced C5-C6 where there is an associated small posterior disc osteophyte complexes. Scattered subcentimeter lymph nodes are seen in the neck. None are pathologically enlarged or abnormally enhancing. The muscles of the neck are normal. Fascial planes are preserved and the deep spaces of the neck are normal. The visualized airway is widely patent. The spinal canal is normal in caliber. Neural foramina are normal. Limited examination of the superior thorax shows no pulmonary infiltrate, suspicious nodules, or pleural effusions. Angiographic findings: The right cervical internal carotid artery is tortuous without significant stenosis. The visualized aortic arch appears normal with normal configuration of the great vessels. The innominate artery and both subclavian arteries are normal in course and caliber. The common carotid arteries are normal in course and caliber with normal carotid bifurcations bilaterally. The course and caliber of the internal carotid arteries are normal. No areas of atherosclerotic narrowing or filling defects are identified. The kkugyr-hg-Iyxheo is complete. The anterior and middle cerebral arteries are normal. The vertebral arteries are codominant. The basilar artery is normal. The posterior cerebral arteries are normal. There is no aneurysm or vascular malformation identified. IMPRESSION: No acute intracranial hemorrhage. Mild tortuosity of the right cervical internal carotid artery without significant stenosis of the neck vasculature. Dictated by: Codey Ortiz M.D. The radiology attending physician has personally reviewed this study, and had reviewed and/or edited this written report and agrees with it. Electronically signed by: Ramone Ortega M.D. us Toya Leiva MD IMG CT PROCEDURES Final Resu lt * POCT hCG, urine (10/15/2022 11:33 AM CDT) HCG, ur, POC Negative Lot Number [id number] QC Backgroud Clear Acceptable QC Control Line Acceptable Urine 10/15/2022 11:3 3 AM CDT us Toya Leiva MD POINT OF CARE TEST ORDERABLE S Final Result * US VEIN DUPLEX LOWER EXTREMITY LEFT LIMITED, UNILATERAL (10/15/2022 10:24 AM CDT) Anatomical Region Laterality Modality Vascular Left Ultrasound 10/15/2022 9:46 AM CDT Narrative 10/15/2022 11:34 PM CDT [employer] [facility] [employer] [facility] - Department of Vascular Surgery, Vascular Laboratory [address] [place] [id number] Lower Extremity Venous Ultrasound Report Patient Name: SAHRA PARKS J : 1980 (42y 1m) Study Date: 10/15/2022 9:46:59 AM Gender: F Tech: Location: 2182 Ref.Provider: TOYA LEIVA Quality: Adequate Order Provider: TOYA LEIVA Procedures: Vascular Report: Venous Duplex imaging was performed in the left lower extremity. The common femoral, femoral, popliteal, posterior tibial, peroneal veins were evaluated for patency, spontaneity and phasicity with Doppler, compression and augmentation maneuvers. Great saphenous vein proximal at the junction was evaluated with compression maneuvers. Indications: Swelling lower extremity, left. Findings: Performing Cashier Office: Marisel Palacios RVT. Left: Duplex scan reveals dilated vein with echogenic, intraluminal, non-compressible material consistent with acute deep vein thrombosis in the left lower extremity. Deep veins involved include the common femoral vein, profunda femoral vein, femoral vein, popliteal vein, posterior tibial veins, peroneal veins and gastrocnemius veins. Superficial vein thrombus (proximal GSV) extends into the deep venous system. Superficial thrombus length is > 5cm. Iliac Veins Right: Patent right external iliac vein, no evidence of thrombus. Iliac Veins Left: Unable to visualize flow in the iliac vein; intraluminal material noted. Comments: Contralateral common femoral vein is imaged for comparison and is patent. Unilateral (limited study) performed per M.D. order. Provider Notification: Results called on the above date to Toya Leiva MD at 1015. Conclusions: 1. There is extensive, acute deep vein thrombosis involving the left femoral, popliteal and calf veins. History: cervical mass. Previous Studies: No previous studies for comparison. Disclaimer: The study images and the final report will be retained in the patient chart by the Vascular Laboratory for the legally required time period. This chart constitutes the legal record of any testing performed. Attestation: I have reviewed and interpreted the pertinent images and measurements of this study. I attest to the conclusions in the final report that is provided above. Electronically Signed By: Rolf Nair MD [facility] [phone] 2022-10-15 22:34:06 MDT CC: CC: Procedure Note Rolf Nair MD - 10/15/2022 [facility] - Department of Vascular Surgery,Vascular Laboratory [address] [place] [id number] Lower Extremity Venous Ultrasound Report Patient Name: SAHRA PARKS JPatient ID: [id number] : 1980 (42y 1m)Study Date: 10/15/2022 9:46:59 AM Gender: FAccession #: [id number] Tech: Location: [facility] Ref.Provider: Tor LEIVAality: Adequate Order Provider: Maria Elena LEIVA #: [id number] Procedures: Vascular Report: Venous Duplex imaging was performed in the left lower extremity. Thecommon femoral, femoral, popliteal, posterior tibial, peroneal veins were evaluated forpatency, spontaneity and phasicity with Doppler, compression and augmentationmaneuvers. Great saphenous vein proximal at the junction was evaluated with compressionmaneuvers. Indications: Swelling lower extremity, left. Findings: Performing Cashier Office: Marisel Palacios RVT. Left: Duplex scan reveals dilated vein with echogenic, intraluminal,non-compressible material consistent with acute deep vein thrombosis in the left lower extremity.Deep veins involved include the common femoral vein, profunda femoral vein, femoralvein, popliteal vein, posterior tibial veins, peroneal veins and gastrocnemius veins.Superficial vein thrombus (proximal GSV) extends into the deep venous system. Superficialthrombus length is > 5cm. Iliac Veins Right: Patent right external iliac vein, no evidence of thrombus. Iliac Veins Left: Unable to visualize flow in the iliac vein; intraluminal material noted. Comments: Contralateral common femoral vein is imaged for comparison and is patent.Unilateral (limited study) performed per M.D. order. Provider Notification: Results called on the above date to Toya Leiva MD at 1015. Conclusions: 1. There is extensive, acute deep vein thrombosis involving the leftfemoral, popliteal and calf veins. History: cervical mass. Previous Studies: No previous studies for comparison. Disclaimer: The study images and the final report will be retained in the patientchart by the Vascular Laboratory for the legally required time period. This chartconstitutes the legal record of any testing performed. Attestation: I have reviewed and interpreted the pertinent images and measurements ofthis study. I attest to the conclusions in the final report that is provided above. Electronically Signed By: Rolf Nair MD [facility] [phone] 2022-10-15 22:34:06 MDT CC: CC: us Toya Leiva MD IMG US PROCEDURES Final Resu lt * aPTT (10/15/2022 9:12 AM CDT) aPTT 32 28 - 38 sec [facility] Comment: Interpretive Data Therapeutic heparin range: 60.0 - 94.0 seconds. Based on correlation with therapeutic heparin activity range of 0.3-0.7 Units/mL. Current interpretive data was last revised on 2020. Blood 10/15/2022 9:12 AM CDT 10/15/2022 9:26 AM CDT us Sal Jeffrey MD LAB BLOOD ORDERABLES Final R esult Performing Organization Address City/State/[facility] Co de Phone Number [facility] Department [place] [address] * (ABNORMAL) eGFR (10/15/2022 9:12 AM CDT) eGFR 80(L) 90 - 130 mL/min/1. 73 m2 [facility] Comment: Interpretive Data Reference Interval Normal ?>/= [...] of Race in Diagnosing Kidney Disease, JASN 202). The CKD-EPI equation should not be used for patients with unstable renal function and has not been validated in children and those over 70. Current interpretive data was last reviewed 2021. Blood 10/15/2022 9:12 AM CDT 10/15/2022 9:26 AM CDT Toya Leiva MD LAB BLOOD ORDERABLES Final R esult [facility] Department [place] [address] * Differential, auto (10/15/2022 9:12 AM CDT) Neutrophil abs 5.1 1.7 - 6.5 K/cumm [facility] Imm gran abs 0.0 0.0 - 0.1 K/cumm [facility] Lymphocyte abs 1.7 0.8 - 3.3 K/cumm [facility] Monocyte abs 0.6 0.2 - 0.8 K/cumm [facility] Eosinophil abs 0.4 0.0 - 0.5 K/cumm [facility] Basophil abs 0.1 0.0 - 0.1 K/cumm [facility] Neutrophil pct 65.0 % [facility] Comment: Interpretive Data Percent cell count reference ranges are not reported, since discordance with absolute values may lead to misinterpretation of CBC data. Current Interpretive Data was last revised on 2017. Imm gran pct 0.3 % [facility] Comment: Interpretive Data Percent cell count reference ranges are not reported, since discordance with absolute values may lead to misinterpretation of CBC data. Current Interpretive Data was last revised on 2017. Lymphocyte pct 21.5 % [facility] Comment: Interpretive Data Percent cell count reference ranges are not reported, since discordance with absolute values may lead to misinterpretation of CBC data. Current Interpretive Data was last revised on 2017. Monocyte pct 7.6 % [facility] Comment: Interpretive Data Percent cell count reference ranges are not reported, since discordance with absolute values may lead to misinterpretation of CBC data. Current Interpretive Data was last revised on 2017. Eosinophil pct 5.0 % [facility] Comment: Interpretive Data Percent cell count reference ranges are not reported, since discordance with absolute values may lead to misinterpretation of CBC data. Current Interpretive Data was last revised on 2017. Basophil pct 0.6 % [facility] Comment: Interpretive Data Percent cell count reference ranges are not reported, since discordance with absolute values may lead to misinterpretation of CBC data. Current Interpretive Data was last revised on 2017. Blood 10/15/2022 9:12 AM CDT 10/15/2022 9:26 AM CDT Toya Leiva MD LAB BLOOD ORDERABLES Final R esult Performing Organization Address [facility] de Phone Number [facility] [employer] [place], [place] [id number] * (ABNORMAL) Protime-INR (10/15/2022 9:12 AM CDT) PT 10.0(L) 10.3 - 13.7 sec [facility] INR 0.88(L) 0.90 - 1.20 [facility] Comment: Interpretive data Oral anticoagulant therapeutic ranges: Venous thromboembolism prophylaxis or treatment: 2.0-3.0 CARDIOLOGY Standard range: 2.0-3.0 High-intensity range: 2.5-3.5 Refer to indication-specific guidelines for appropriate target ranges for prosthetic heart valve replacement. Current interpretive data was last revised on 2019. Blood 10/15/2022 9:12 AM CDT 10/15/2022 9:18 AM CDT Toya Leiva MD LAB BLOOD ORDERABLES Final R esult Performing Organization Address [facility] de Phone Number [facility] [place] [address] * Basic metabolic panel (10/15/2022 9:12 AM CDT) [facility] Sodium 135 135 - 145 mmol/L [facility] Potassium, pl 4.6 3.3 - 4.9 mmol/L [facility] Chloride 101 97 - 110 mmol/L [facility] CO2 26 22 - 32 mmol/L [facility] Anion gap 8 2 - 15 mmol/L [facility] BUN 11 6 - 25 mg/dL [facility] Creatinine 0.92 0.60 - 1.10 mg/dL [facility] Glucose 86 70 - 199 mg/dL [facility] Comment: Interpretive Data Fasting glucose >/= [...] 2022. Calcium 8.6 8.5 - 10.3 mg/dL [facility] Blood 10/15/2022 9:12 AM CDT 10/15/2022 9:26 AM CDT Toya Leiva MD LAB BLOOD ORDERABLES Final R esult [facility] Department [place] [address] * (ABNORMAL) CBC with auto differential (10/15/2022 9:12 AM CDT) [facility] WBC 7.8 3.8 - 9.9 K/cumm [facility] Hgb 11.3(L) 11.9 - 15.5 g/dL [facility] Hct 34.1(L) 35.6 - 45.5 % [facility] Plt 251 150 - 400 K/cumm [facility] MPV 9.2 9.1 - 12.3 fL [facility] RBC 3.91 3.90 - 5.20 M/cumm [facility] MCV 87.2 81.3 - 96.4 fL [facility] MCH 28.9 27.1 - 33.3 pg [facility] MCHC 33.1 32.3 - 35.7 g/dL [facility] RDW CV 12.4 11.1 - 14.9 % [facility] RDW SD 39.6 35.7 - 48.1 fL [facility] NRBC abs 0.00 0.00 - 0.01 K/cumm [facility] Blood 10/15/2022 9:12 AM CDT 10/15/2022 9:26 AM CDT Toya Leiva MD LAB BLOOD ORDERABLES Final R esult Performing Organization Address City/State/[facility] Co de Phone Number [facility] Department [place] [address] documented in this encounter Visit Diagnoses Diagnosis Deep vein thrombosis (DVT) of left lower extremity (HCC)- Primary Deep vein thrombosis (DVT) of left lower extremity (HCC) Abnormal uterine bleeding Unspecified disorder of menstruation and other abnormal bleeding from female genital tract documented in this encounter Admitting Diagnoses Diagnosis Deep vein thrombosis (DVT) of left lower extremity (HCC) documented in this encounter Administered Medications Inactive Administered Medications - up to 3 most recent administrations Medication Order MAR Action Action Date Dose Rate Site acetaminophen (TYLENOL) tablet 1,000 mg 1,000 mg, oral, Once, On Sat10/15/22 at 1900, For 1 dose Given 10/15/2022 7:09 PM CDT 1,000 mg acetaminophen (TYLENOL) tablet 1,000 mg 1,000 mg, oral, Every 6 hours PRN, 1st line for pain, fever, fever greater than 38.3 C, Starting on Sat10/16/22 at 0220, Indications: Fever, PainIndications:Fever,Pain Given 10/16/2022 6:14 AM CDT 1,000 mg ocdsmvylqnzuh-vfkslrv-zohoxkso (EXCEDRIN MIGRAINE) 250-250-65 mg per tablet 1 tablet 1 tablet, oral, Once, On Sat10/16/22 at 1915, For 1 dose Given 10/16/2022 9:39 PM CDT 1 tablet bisacodyL (DULCOLAX) suppository 10 mg 10 mg, rectal, Daily PRN, constipation, if no results 24 hours after polyethylene glycol administration, Starting on Sat10/15/22 at 2208, Administer if not tolerating PO., Indications: constipationIndications:constipa tion bisacodyl EC (DULCOLAX EC) tablet 10 mg 10 mg, oral, Daily PRN, constipation, if no results 24 hours after polyethylene glycol administration, Starting on Sat10/15/22 at 2208, Administer if tolerating PO. Do not crush, chew, cut, dissolve, open or otherwise manipulate tablet/capsule., Indications: constipationIndications:constipa tion buPROPion XL (WELLBUTRIN XL) 24 hour tablet 150 mg 150 mg, oral, Daily, First dose on Sat10/16/22 at 0900, Do not crush, chew, cut, dissolve, open or otherwise manipulate tablet/capsule. Given 10/18/2022 9:01 AM CDT 150 mg Given 10/17/2022 8:26 AM CDT 150 mg Given 10/16/2022 8:56 AM CDT 150 mg Carrier Fluids for Secondary Infusion - 0.9% Sodium Chloride 30 mL, intravenous, As needed, For priming tubing and/or flushing, Starting on Sat10/15/22 at 1444, Pre-Procedure (IR), 0-250 ml/hr to flush line after IV infusions when no maintenance IV ordered. Infuse 30mL at the same rate as the secondary infusion. Run as primary IV, not intended for KVO. clopidogreL (PLAVIX) tablet 300 mg 300 mg, oral, Once, On Sat10/15/22 at 1815, For 1 dose Given 10/15/2022 6:32 PM CDT 300 mg clopidogreL (PLAVIX) tablet 75 mg 75 mg, oral, Daily, First dose on Sat10/16/22 at 0900 Given 10/18/2022 9:01 AM CDT 75 mg Given 10/17/2022 8:26 AM CDT 75 mg Given 10/16/2022 8:56 AM CDT 75 mg diazePAM (VALIUM) tablet 5 mg 5 mg, oral, 2 times daily, First dose on Sat10/16/22 at 0900 Given 10/18/2022 9:01 AM CDT 5 mg Given 10/17/2022 8:45 PM CDT 5 mg Given 10/17/2022 8:26 AM CDT 5 mg enoxaparin (LOVENOX) syringe 60 mg 60 mg (rounded from 66.7 mg = 1 mg/kg ? 66.7 kg), subcutaneous, Every 12 hours scheduled, First dose on Sat10/15/22 at 1816, Indications: Venous ThrombosisIndications:Venous Thrombosis Given 10/18/2022 9:01 AM CDT 60 mg Left Upper Abdomen Given 10/17/2022 8:46 PM CDT 60 mg Le ft Upper Abdomen Given 10/17/2022 8:26 AM CDT 60 mg Le ft Lower Abdomen fentaNYL (SUBLIMAZE) preservative free injection intravenous, As needed, Starting on Sat10/15/22 at 1548, Intra-Op Given 10/15/2022 3:48 PM CDT 50 mcg fentaNYL (SUBLIMAZE) preservative free injection intravenous, As needed, Starting on Sat10/15/22 at 1556, Intra-Op Given 10/15/2022 3:56 PM CDT 50 mcg fentaNYL (SUBLIMAZE) preservative free injection intravenous, As needed, Starting on Sat10/15/22 at 1624, Intra-Op Given 10/15/2022 4:24 PM CDT 50 mcg fentaNYL (SUBLIMAZE) preservative free injection intravenous, As needed, Starting on Sat10/15/22 at 1646, Intra-Op Given 10/15/2022 4:46 PM CDT 50 mcg fentaNYL (SUBLIMAZE) preservative free injection intravenous, As needed, Starting on Sat10/15/22 at 1658, Intra-Op Given 10/15/2022 4:58 PM CDT 50 mcg fentaNYL (SUBLIMAZE) preservative free injection intravenous, As needed, Starting on Sat10/15/22 at 1712, Intra-Op Given 10/15/2022 5:12 PM CDT 50 mcg ferrous sulfate tablet 325 mg 325 mg (65 mg of elemental iron), oral, Nightly, First dose on Sat10/17/22 at 2100, Indications: Iron Deficiency AnemiaIndications:Iron Deficiency Anemia Given 10/17/2022 8:45 PM CDT 325 mg heparin 1,000 unit/mL injection 5,300 Units 5,300 Units (rounded from 5,336 Units = 80 Units/kg ? 66.7 kg), intravenous, Once, On Sat10/15/22 at 1029, For 1 dose, Initial bolus prior to starting heparin infusion. Do not adjust initial bolus based on patient PTT., Indications: Venous ThrombosisIndications:Ve nous Thrombosis Given 10/15/2022 10:51 AM CDT 5,300 Units heparin in 0.9% sodium chloride 25,000 unit/250 mL infusion (premix) 0-33 Units/kg/hr ? 66.7 kg (0-22.011 mL/hr, rounded to 0-22.01 mL/hr), intravenous, Titrated, Starting on Sat10/15/22 at 1029, WEIGHT-BASED HEPARIN INFUSION Initial dose: 18 Units/kg/hr. Adjust infusion based upon nomogram: PTT less than 40 seconds: Bolus if ordered (see PRN bolus order) , then increase infusion dose 3 units/kg/hour PTT 40 - 50.9 seconds: Bolus if ordered (see PRN bolus order), then increase infusion dose 2 units/kg/hour PTT 51 - 59.9 seconds: No bolus, increase infusion dose 1 unit/kg/hour PTT 60 - 94.9 seconds: No change PTT 95 - 104.9 seconds: No bolus, decrease infusion dose 1 unit/kg/hour PTT 105 - 114.9 seconds: Hold infusion for 30 minutes, then decrease infusion dose 2 units/kg/hour PTT 115 or greater seconds: Hold infusion for 1 hour, then decrease infusion dose 3 units/kg/hour Draw STAT PTT 6 hrs after initiation of heparin infusion, draw STAT PTT 6 hours after each dose change, and every 6 hours until 2 consecutive PTTs are within therapeutic range. Once two consecutive PTT's are therapeutic (60-94.9 seconds), then draw PTT every AM until heparin is discontinued, Indications: Venous Thrombosis, On hold since Sat10/15/2022 at 1816 until manually unheldIndications:Venous Thrombosis Rate/Dose Verify 10/15/2022 5:56 PM CDT 18 Units/kg/hr 12.01 mL/hr Rate/Dose Verify 10/15/2022 2:20 PM CDT 18 Units/kg/hr 12. 01 mL/hr New Bag 10/15/2022 10:54 AM CDT 18 Units/kg/hr 12.01 mL /hr HYDROmorphone (DILAUDID) injection 0.5 mg 0.5 mg, intravenous, Administer over 2 Minutes, Once, On Sat10/15/22 at 0926, For 1 dose Given 10/15/2022 9:27 AM CDT 0.5 mg HYDROmorphone (DILAUDID) injection 0.5 mg 0.5 mg, intravenous, Administer over 2 Minutes, Every 2 hours PRN, 1st line for pain, Starting on Sat10/15/22 at 1121, For 3 doses Given 10/15/2022 2:20 PM CDT 0.5 mg Given 10/15/2022 11:30 AM CDT 0.5 mg HYDROmorphone (DILAUDID) injection 0.5 mg 0.5 mg, intravenous, Administer over 2 Minutes, Every 2 hours PRN, breakthrough pain, Starting on Sat10/15/22 at 2224, For 1 dose Given 10/15/2022 10:45 PM CDT 0.5 mg HYDROmorphone (DILAUDID) injection 0.5 mg 0.5 mg, intravenous, Administer over 2 Minutes, Once, On Sat10/16/22 at 0515, For 1 dose Given 10/16/2022 4:49 AM CDT 0.5 mg hydrOXYzine (ATARAX) tablet 50 mg 50 mg, oral, Daily (early AM), First dose on Sat10/16/22 at 0600 Given 10/18/2022 5:49 AM CDT 50 mg Given 10/17/2022 6:08 AM CDT 50 mg Given 10/16/2022 4:50 AM CDT 50 mg ioversoL (OPTIRAY 350) syringe 75 mL 75 mL, intravenous, Once in imaging, contrast, Starting on Sat10/15/22 at 1221, For 1 dose Contrast Given 10/15/2022 12:21 PM CDT 75 mL levothyroxine (SYNTHROID) tablet 175 mcg 175 mcg, oral, Daily (early AM), First dose on Sat10/16/22 at 0600, Administer on an empty stomach, preferably 30 minutes before breakfast. Take 4 hours apart from antacids, iron and calcium products. Separate from tube feeds, if applicable. Given 10/18/2022 5:41 AM CDT 175 mcg Given 10/17/2022 6:08 AM CDT 175 mcg Given 10/16/2022 4:50 AM CDT 175 mcg midazolam (VERSED) 1 mg/mL injection As needed, Starting on Sat10/15/22 at 1548, Intra-Op Given 10/15/2022 3:48 PM CDT 0.5 mg midazolam (VERSED) 1 mg/mL injection As needed, Starting on Sat10/15/22 at 1555, Intra-Op Given 10/15/2022 3:55 PM CDT 0.5 mg midazolam (VERSED) 1 mg/mL injection As needed, Starting on Sat10/15/22 at 1611, Intra-Op Given 10/15/2022 4:11 PM CDT 0.5 mg midazolam (VERSED) 1 mg/mL injection As needed, Starting on Sat10/15/22 at 1618, Intra-Op Given 10/15/2022 4:18 PM CDT 0.5 mg midazolam (VERSED) 1 mg/mL injection As needed, Starting on Sat10/15/22 at 1624, Intra-Op Given 10/15/2022 4:24 PM CDT 0.5 mg midazolam (VERSED) 1 mg/mL injection As needed, Starting on Sat10/15/22 at 1646, Intra-Op Given 10/15/2022 4:46 PM CDT 0.5 mg midazolam (VERSED) 1 mg/mL injection As needed, Starting on Sat10/15/22 at 1657, Intra-Op Given 10/15/2022 4:57 PM CDT 0.5 mg nicotine (NICODERM CQ) 14 mg patch 24 hour 1 patch 1 patch, transdermal, Administer over 24 Hours, Daily, First dose on Sat10/15/22 at 2245, Apply a new patch every 24 hours to a clean, dry, hairless site on the upper arm or hip. Rotate site., Indications: Nicotine DependenceIndications:Nicot ine Dependence Medication Applied 10/18/2022 9:01 AM CDT 1 patch Right Arm Medication Applied 10/17/2022 8:26 AM CDT 1 patch Left Shoulder Medication Applied 10/16/2022 8:55 AM CDT 1 patch Left Shoulder ondansetron (ZOFRAN) injection 4 mg 4 mg, intravenous, Administer over 2 Minutes, Every 6 hours PRN, nausea, vomiting, if not tolerating PO, Starting on Sat10/15/22 at 2208, Indications: Nausea and VomitingIndications:Nausea and Vomiting Given 10/18/2022 5:41 AM CDT 4 m g Given 10/17/2022 5:44 PM CDT 4 mg Given 10/16/2022 6:14 AM CDT 4 mg ondansetron (ZOFRAN) injection 8 mg 8 mg, intravenous, Administer over 2 Minutes, Once, On Sat10/15/22 at 1459, For 1 dose Given 10/15/2022 6:32 PM CDT 8 m g oxyCODONE (ROXICODONE) tablet 5 mg 5 mg, oral, 4 times daily PRN, 2nd line for pain, Starting on Sat10/16/22 at 0113, Indications: PainIndications:Pain Given 10/18/2022 1:24 PM CDT 5 mg Given 10/18/2022 6:37 AM CDT 5 mg Given 10/17/2022 5:44 PM CDT 5 mg polyethylene glycol (MIRALAX) packet 17 g 17 g, oral, Daily PRN, constipation, Starting on Sat10/15/22 at 2208, Indications: constipationIndications:constipation prochlorperazine (COMPAZINE) injection 5 mg 5 mg, intravenous, Administer over 2 Minutes, Every 6 hours PRN, nausea, vomiting, 2nd line, Starting on Sat10/16/22 at 1022 Given 10/16/2022 10:29 AM CDT 5 mg ramelteon (ROZEREM) tablet 8 mg 8 mg, oral, Nightly PRN, sleep, Starting on Sat10/15/22 at 2208, Indications: Sleep-Onset InsomniaIndications:Sleep-Onset Insomnia sodium chloride 0.9% flush 0.5-20 mL 0.5-20 mL, intra-catheter, Every 8 hours scheduled, First dose on Sat10/15/22 at 1445, Pre-Procedure (IR), Flush volume based on line type and size. Given 10/18/2022 1:27 PM CDT 10 mL Given 10/18/2022 5:42 AM CDT 10 mL Given 10/17/2022 8:48 PM CDT 10 mL sodium chloride 0.9% flush 0.5-20 mL 0.5-20 mL, intra-catheter, As needed, line care, Starting on Sat10/15/22 at 1444, Pre-Procedure (IR), Flush volume based on line type and size. Flush before and after each use. sodium chloride 0.9% infusion 30 mL/hr, intravenous, Continuous, Starting on Sat10/15/22 at 1445, Pre-Procedure (IR), Please discontinue saline infusion at the end of the IR procedure New Bag 10/15/2022 2:44 PM CDT 30 mL/hr 30 mL/h r ziprasidone (GEODON) capsule 40 mg 40 mg, oral, 2 times daily with meals (bkfst, dinner), First dose on Sat10/16/22 at 0800, May cause prolongation of QT interval. Take with food. Given 10/18/2022 9:01 AM CDT 40 mg Given 10/17/2022 5:44 PM CDT 40 mg Given 10/17/2022 8:26 AM CDT 40 mg documented in this encounter Discontinued Medications Medication Sig Discontinue Reason Start Date End Da te naproxen (NAPROSYN) 500 mg tabletIndications:Anti-i nflammatory Take 1 tablet (500 mg total) by mouth 2 (two) times a day with meals Stop Taking at Discharge 11/01/2020 10/18/2022 ondansetron ODT (ZOFRAN-ODT) 8 mg disintegrating tablet Take 1 tablet (8 mg total) by mouth every 8 (eight) hours as needed for nausea or vomiting Stop Taking at Discharge 09/15/2022 10/18/2022 documented as of this encounter Active and Recently Administered Medications Times are shown in CDT. Scheduled Medication Order 10/16/2022 10/17/2022 10/18/2022 acetaminophen-aspirin- caffeine (EXCEDRIN MIGRAINE) 250-250-65 mg per tablet 1 tablet (COMPLETED) 1 tablet, oral, Once, On Sat10/16/22 at 1915, For 1 dose 2138 (Given - Provider: Christopher Sandoval) buPROPion XL (WELLBUTRIN XL) 24 hour tablet 150 mg 150 mg, oral, Daily, First dose on Sat10/16/22 at 0900, Do not crush, chew, cut, dissolve, open or otherwise manipulate tablet/capsule. 0856 (Given - Provider: Yen Morejon RN) 08 (Given - Provider: Mahsa Sullivan RN) 900 (Given - Provider: Arianna Dao, YANET) clopidogreL (PLAVIX) tablet 75 mg 75 mg, oral, Daily, First dose on Sat10/16/22 at 0900 0856 (Given - Provider: Yen Morejon RN) 08 (Given - Provider: Mahsa Sullivan RN) 900 (Given - Provider: Arianna Dao, YANET) diazePAM (VALIUM) tablet 5 mg 5 mg, oral, 2 times daily, First dose on Sat10/16/22 at 0900 0856 (Given - Provider: Yen Morejon RN)2045 (Given - Provider: Christopher Sandoval) 08 (Given - Provider: Mahsa Sullivan RN)2044 (Given - Provider: Christopher Sandoval) 09 (Given - Provider: Arianna Dao, YANET) enoxaparin (LOVENOX) syringe 60 mg 60 mg (rounded from 66.7 mg = 1 mg/kg ? 66.7 kg), subcutaneous, Every 12 hours scheduled, First dose on Sat10/15/22 at 1816, Indications: Venous Thrombosis 0855 (Given - Provider: Yen Morejon RN)2046 (Given - Provider: Christopher Sandoval) 08 (Given - Provider: Mahsa Sullivan RN)2045 (Given - Provider: Christopher Sandoval) 09 (Given - Provider: Arianna Dao RN) ferrous sulfate tablet 325 mg 325 mg (65 mg of elemental iron), oral, Nightly, First dose on Sat10/17/22 at 2100, Indications: Iron Deficiency Anemia 2044 (Given - Provider: Christopher Sandoval) HYDROmorphone (DILAUDID) injection 0.5 mg (COMPLETED) 0.5 mg, intravenous, Administer over 2 Minutes, Once, On Sat10/16/22 at 0515, For 1 dose 0449 (Given - Provider: Elisa Dorsey RN) hydrOXYzine (ATARAX) tablet 50 mg 50 mg, oral, Daily (early AM), First dose on Sat10/16/22 at 0600 0450 (Given - Provider: Elisa Dorsey RN) 0608 (Given - Provider: Christopher Sandoval) 0541 (Not Given - Provider: Christopher Sandoval - Reason: Other - Comment: medicaton dropped on the floor, will pull another dose at [facility])0549 (Given - Provider: Christopher Sandoval) levothyroxine (SYNTHROID) tablet 175 mcg 175 mcg, oral, Daily (early AM), First dose on Sat10/16/22 at 0600, Administer on an empty stomach, preferably 30 minutes before breakfast. Take 4 hours apart from antacids, iron and calcium products. Separate from tube feeds, if applicable. 0450 (Given - Provider: Elisa Dorsey RN) 0608 (Given - Provider: Christopher Sandoval) 0541 (Given - Provider: Christopher Sandoval) nicotine (NICODERM CQ) 14 mg patch 24 hour 1 patch 1 patch, transdermal, Administer over 24 Hours, Daily, First dose on Sat10/15/22 at 2245, Apply a new patch every 24 hours to a clean, dry, hairless site on the upper arm or hip. Rotate site., Indications: Nicotine Dependence 0855 (Medication Applied - Provider: Yen Morejon RN) 0826 (Medication Applied - Provider: Mahsa Sullivan RN) 0901 (Medication Applied - Provider: Arianna Dao, YANET)1028 (Medication Removed - Provider: Arianna Dao, YANET - Comment: Patient reports she removed herself over night)1520 (Due: Medication Removed - Provider: Automatic Discharge Provider - Comment: Time automatically adjusted from order being discontinued) sodium chloride 0.9% flush 0.5-20 mL 0.5-20 mL, intra-catheter, Every 8 hours scheduled, First dose on Sat10/15/22 at 1445, Pre-Procedure (IR), Flush volume based on line type and size. 0450 (Given - Provider: Elisa Dorsey RN)1403 (Return to [facility] - Provider: Yen Morejon RN)2248 (Given - Provider: Christopher Sandoval) 0609 (Given - Provider: Christopher Sandoval)1311 (Given - Provider: Mahsa Sullivan, YANET)2048 (Given - Provider: Christopher Sandoval) 0542 (Given - Provider: Christopher Sandoval)1327 (Given - Provider: Arianna Dao, YANET) ziprasidone (GEODON) capsule 40 mg 40 mg, oral, 2 times daily with meals (bkfst, dinner), First dose on Sat10/16/22 at 0800, May cause prolongation of QT interval. Take with food. 0856 (Given - Provider: Yen Morejon RN)1739 (Given - Provider: Yen Morejon RN) 0826 (Given - Provider: Mahsa Sullivan, YANET)1744 (Given - Provider: Arianna Dao, YANET) 0901 (Given - Provider: Arianna Dao, YANET) Continuous Medication Order 10/16/2022 10/17/2022 10/18/2022 sodium chloride 0.9% infusion 30 mL/hr, intravenous, Continuous, Starting on Sat10/15/22 at 1445, Pre-Procedure (IR), Please discontinue saline infusion at the end of the IR procedure PRN Medication Order 10/16/2022 10/17/2022 10/18/2022 acetaminophen (TYLENOL) tablet 1,000 mg 1,000 mg, oral, Every 6 hours PRN, 1st line for pain, fever, fever greater than 38.3 C, Starting on Sat10/16/22 at 0220, Indications: Fever, Pain 0614 (Given - Provider: Elisa Dorsey RN) 2044 (Not Given - Provider: Christopher Sandoval - Reason: Patient/family refused - Comment: pt refused) bisacodyL (DULCOLAX) suppository 10 mg(Linked Group 1) 10 mg, rectal, Daily PRN, constipation, if no results 24 hours after polyethylene glycol administration, Starting on Sat10/15/22 at 2208, Administer if not tolerating PO., Indications: constipation bisacodyl EC (DULCOLAX EC) tablet 10 mg(Linked Group 1) 10 mg, oral, Daily PRN, constipation, if no results 24 hours after polyethylene glycol administration, Starting on Sat10/15/22 at 2208, Administer if tolerating PO. Do not crush, chew, cut, dissolve, open or otherwise manipulate tablet/capsule., Indications: constipation Carrier Fluids for Secondary Infusion - 0.9% Sodium Chloride 30 mL, intravenous, As needed, For priming tubing and/or flushing, Starting on Sat10/15/22 at 1444, Pre-Procedure (IR), 0-250 ml/hr to flush line after IV infusions when no maintenance IV ordered. Infuse 30mL at the same rate as the secondary infusion. Run as primary IV, not intended for KVO. ondansetron (ZOFRAN) injection 4 mg(Linked Group 2) 4 mg, intravenous, Administer over 2 Minutes, Every 6 hours PRN, nausea, vomiting, if not tolerating PO, Starting on Sat10/15/22 at 2208, Indications: Nausea and Vomiting 0614 (Given - Provider: Elisa Dorsey RN) 1744 (Given - Provider: Arianna Dao RN) 0541 (Given - Provider: Christopher Sandoval) oxyCODONE (ROXICODONE) tablet 5 mg 5 mg, oral, 4 times daily PRN, 2nd line for pain, Starting on Sat10/16/22 at 0113, Indications: Pain 0347 (Given - Provider: Elisa Dorsey RN)0856 (Given - Provider: Yen Morejon RN) 1744 (Given - Provider: Arianna Dao RN) 0637 (Given - Provider: Christopher Sandoval)1324 (Given - Provider: Arianna Dao RN) polyethylene glycol (MIRALAX) packet 17 g 17 g, oral, Daily PRN, constipation, Starting on Sat10/15/22 at 2208, Indications: constipation prochlorperazine (COMPAZINE) injection 5 mg 5 mg, intravenous, Administer over 2 Minutes, Every 6 hours PRN, nausea, vomiting, 2nd line, Starting on Sat10/16/22 at 1022 1029 (Given - Provider: Yen Morejon RN) ramelteon (ROZEREM) tablet 8 mg 8 mg, oral, Nightly PRN, sleep, Starting on Sat10/15/22 at 2208, Indications: Sleep-Onset Insomnia sodium chloride 0.9% flush 0.5-20 mL 0.5-20 mL, intra-catheter, As needed, line care, Starting on Sat10/15/22 at 1444, Pre-Procedure (IR), Flush volume based on line type and size. Flush before and after each use. Linked Groups Order Group 1: bisacodyl EC (DULCOLAX EC) tablet 10 mgJump to med 10 mg, oral, Daily PRN, constipation, if no results 24 hours after polyethylene glycol administration, Starting on Sat10/15/22 at 2208, Administer if tolerating PO. Do not crush, chew, cut, dissolve, open or otherwise manipulate tablet/capsule., Indications: constipation Or bisacodyL (DULCOLAX) suppository 10 mgJump to med 10 mg, rectal, Daily PRN, constipation, if no results 24 hours after polyethylene glycol administration, Starting on Sat10/15/22 at 2208, Administer if not tolerating PO., Indications: constipation Group 2: ondansetron ODT (ZOFRAN-ODT) disintegrating tablet 4 mg (CANCELED) 4 mg, oral, Every 6 hours PRN, nausea, vomiting, Starting on Sat10/15/22 at 2208, Indications: Nausea and Vomiting Or ondansetron (ZOFRAN) injection 4 mgJump to med 4 mg, intravenous, Administer over 2 Minutes, Every 6 hours PRN, nausea, vomiting, if not tolerating PO, Starting on Sat10/15/22 at 2208, Indications: Nausea and Vomiting documented in this encounter Orders Medications Ordered That Nael ht Not Have Been Administered Count Last Ordered Date First Ordered Date HYDROmorphone (DILAUDID) injection 0.2 mg 1 10/16/2022 prochlorperazine (COMPAZINE) injection 5 mg 1 10/16/2022 acetaminophen (TYLENOL) tablet 650 mg 1 bisacodyL (DULCOLAX) suppository 10 mg 1 bisacodyl EC (DULCOLAX EC) tablet 10 mg 1 0 10/15/2022 Carrier Fluids for Secondary Infusion - 0.9% Sodium Chloride 1 10/15/2022 heparin 1,000 unit/mL inject ion 2,650 Units 1 10/15/2022 heparin 1,000 unit/mL inject ion 5,300 Units 1 10/15/2022 ibuprofen (ADVIL,MOTRIN) tablet 600 mg 2 morphine injection 4 mg 1 10/15/2022 ondansetron ODT (ZOFRAN-ODT) disintegrating tablet 4 mg 1 10/15/2022 polyethylene glycol (MIRALAX) packet 17 g 1 10/15/2022 ramelteon (ROZEREM) tablet 8 mg 1 sodium chloride 0.9% flush 0.5-20 mL 1 09/21 Nursing Count Last Ordered Date First Orde red Date NURSING COMMUNICATION 2 10/15/[address] SEQUENTIAL COMPRESSION DEVICE 1 10/15 TELEMETRY MONITORING 1 10/15/2022 VITAL SIGNS 1 10/15/2022 WEIGH PATIENT 1 10/15/2022 WOUND CARE 1 10/15/2022 Consult Count Last Ordered Date First Orde red Date IP CONSULT TO MINING SPECULATOR 1 10/16/2022 IP CONSULT TO SOCIAL WORK 1 10/16/2022 Admission Count Last Ordered Date First Orde red Date ADMIT TO INPATIENT 1 10/15/2022 Discharge Count Last Ordered Date First Orde red Date DISCHARGE PATIENT 1 10/18/2022 CORE MEASURES Count Last Ordered Date First Ord ered Date REASON FOR NO VTE PROPHYLAXIS AT ADMISSION 1 10/15/2022 documented in this encounter Care Teams Fire Assistant Relationship Specialty Start Date End Date Clinic, Medicine [address]. [address] [place] [address] PCP - General 11/01/20 11/28/22 documented as of this encounter
--- OUTSIDE RECORDS SUMMARY | 2024-04-26 21:24 | XMS_ITS | Encounter Summary ---
Author Organization [facility] Healthcare Address [address] [place] [address] Care Team Providers Care Boat Person Name Role Phone Clinic, Medicine X. 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 [address] [place] [address] PCP - General 11/01/20 11/28/22 documented as of this encounter
--- OUTSIDE RECORDS SUMMARY | 2024-04-26 21:24 | XMS_ITS | Encounter Summary ---
Author Organization [facility] Healthcare Address [address] [place] [address] Care Team Providers Care [place] Tribunal Member Name Role Phone Clinic, Medicine X. Primary Care Provider [phone] Reason for Visit * Diagnostic Imaging (Routine) - Closed Specialty Diagnoses / Procedures Referred By Faiza bowden Referred To Contact Radiology Diagnoses Thrombosis Procedures CT IVC Venogram CT Abdomen Pelvis W WO Contrast Umberto Garcia MD [address] [facility] [address] [place] [address] Phone: tel: fax: [address] [address] Referral ID Status Reason Start Date Expiration Date Visits Re quested Visits Authorized [id number] Closed 10/26/2022 11/25/2023 1 1 Encounter Details Date Type Department Care Team (Latest Contact Info) Description 11/08/2022 6:26 AM CDT - 11/08/2022 11:59 PM CDT Hospital Encounter [facility] Imaging and Radiology [address] [place], [place] [id number] Thrombosis Discharge Disposition: Discharge to home or self [...] on file Legal Sex Female 7:09 AM TIER IN Gender Identity Female 10/24/2023 9:52 AM CDT Sexual Orientation Straight 10/24/2023 9: 52 AM CDT documented as of this encounter Medications at Time of Discharge levothyroxine (SYNTHROID) 175 mcg tablet Take 1 tablet (175 mcg total) by mouth golf club assembler before breakfast 30 tablet 10/19/2022 Wellbutrin XL [...] by mouth daily 30 tablet 10/19/2022 3 clopidogreL (PLAVIX) 75 mg tablet Take 1 tablet (75 mg total) by mouth 10/19/2022 4 cyanocobalamin (Vitamin B-12) 1,000 mcg/mL injection Inject 1 mL every month by intramuscular route. 11/07/2022 4 diazePAM (VALIUM) 5 mg tablet Take 1 tablet (5 mg total) by mouth 2 (two) times a day 30 tablet 10/18/2022 4 docusate sodium (COLACE) 100 mg capsule Take 1 capsule (100 mg total) by mouth 2 (two) times a day as needed 09/14/2010 4 hydrOXYzine (ATARAX) 50 mg tablet Take 1 tablet (50 mg total) by mouth golf club assembler before breakfast 30 tablet 10/19/2022 4 lidocaine [...] CONTRAST Schedule Routine, Read Routine (OP Routine) 11/08/2022 10:00 AM CDT Thrombosis documented in this encounter Results * CT IVC Venogram (11/08/2022 10:00 AM CDT) Anatomical Region Laterality Modality Body N/A Computed Tomogra phy 11/08/2022 10:1 7 AM CDT Impressions 11/08/2022 10:17 AM CDT 1. ??Normal inferior vena cava. 2. ??Stent in the left common iliac vein which contains nonobstructive thrombus. 3. ??CT of the abdomen and pelvis is otherwise unremarkable. Electronically signed by: Pierre Jhaveri 11/08/2022 10:17 AM CDT EXAMINATION: CT ABDOMEN PELVIS W CONTRAST DATE: 11/08/2022 8:00 AM HISTORY: Left venous thrombosis. ??Status post percutaneous mechanical thrombectomy and left common iliac vein stent placement. COMPARISON: 10/15/2022. TECHNIQUE: CT of the abdomen and pelvis was performed following the intravenous administration of 125 mL Optiray 350. ??Venous phase and delayed images were obtained. ??Coronal and sagittal reconstructions were obtained. FINDINGS: Scans through the lung bases are unremarkable. ??The heart size is normal. ??No evidence of a pleural effusion. ??The liver, gallbladder, pancreas and spleen appear normal. ??No evidence of free air or free fluid in the abdomen. ??The kidneys and adrenal glands appear normal. No evidence of retroperitoneal adenopathy. ??The abdominal aorta is unremarkable. ??The appendix is normal. ??No evidence of bowel obstruction. The uterus and urinary bladder are normal. ??No significant bony abnormality is seen. The inferior vena cava is widely patent. ??There is a stent in the left common iliac vein which is new from previous. ??There is thrombus within the stent causing less than 50% stenosis. ??The left external iliac and common femoral veins are widely patent. Procedure Note Shahbaz Vallejo MD - 11/08/2022 EXAMINATION: CT ABDOMEN PELVIS W CONTRAST DATE: 11/08/2022 8:00 AM HISTORY: Left venous thrombosis. Status post percutaneous mechanical thrombectomy and left common iliac vein stent placement. COMPARISON: 10/15/2022. TECHNIQUE: CT of the abdomen and pelvis was performed following the intravenous administration of 125 mL Optiray 350. Venous phase and delayed images were obtained. Coronal and sagittal reconstructions were obtained. FINDINGS: Scans through the lung bases are unremarkable. The heart size is normal. No evidence of a pleural effusion. The liver, gallbladder, pancreas and spleen appear normal. No evidence of free air or free fluid in the abdomen. The kidneys and adrenal glands appear normal. No evidence of retroperitoneal adenopathy. The abdominal aorta is unremarkable. The appendix is normal. No evidence of bowel obstruction. The uterus and urinary bladder are normal. No significant bony abnormality is seen. The inferior vena cava is widely patent. There is a stent in the left common iliac vein which is new from previous. There is thrombus within the stent causing less than 50% stenosis. The left external iliac and common femoral veins are widely patent. IMPRESSION: 1. Normal inferior vena cava. 2. Stent in the left common iliac vein which contains nonobstructive thrombus. 3. CT of the abdomen and pelvis is otherwise unremarkable. Electronically signed by: Shahbaz Vallejo M.D. Umberto Garcia MD IM CT PROCEDURES Final Result documented in this encounter Visit Diagnoses Diagnosis Thrombosis Embolism and thrombosis of unspecified site documented in this encounter Administered Medications Inactive Administered Medications - up to 3 most recent administrations Medication Order MAR Action Action Date Dose Rate Site ioversoL (OPTIRAY 350) syringe 125 mL 125 mL, intravenous, Once in imaging, contrast, Starting on Doris 11/08/22 at 0940, For 1 dose Contrast Given 11/08/2022 9:43 AM CDT 125 mL documented in this encounter Orders Medications Ordered That Nael ht Not Have Been Administered Count Last Ordered Date First Ordered Date ioversoL (OPTIRAY 350) syringe 125 mL 1 documented in this encounter Care Teams [place] Tribunal Member Relationship Specialty Start Date End Date Clinic, Medicine X. [address] [place] [address] PCP - General 11/01/20 11/28/22 documented as of this encounter
--- OUTSIDE RECORDS SUMMARY | 2024-04-26 21:24 | XMS_ITS | Encounter Summary ---
Author Organization [facility] Healthcare Address [address] [place] [address] Care Team Providers Care Dairy Manager Name Role Phone Clinic, Medicine X. 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 She says is getting varicose/spider veins Advised would reach out to tori and have her CB with info Patient IS expecting call back Directions for clinic sent to her email * Telephone Encounter - Tori Arora RN - 11/21/2022 10:49 AM CDT Pt rescheduled for 11/29/22 at 11am at 5 clinic per Nga MERCADO updated appt to reflect new appt date/time. documented in this encounter Plan of Treatment Not on file documented as of this encounter Visit Diagnoses Not on filedocumented in this encounter Care Teams Dairy Manager Relationship Specialty Start Date End Date Clinic, Medicine X. [address] [place] [address] PCP - General 11/01/20 11/28/22 documented as of this encounter
--- OUTSIDE RECORDS SUMMARY | 2024-04-26 21:24 | XMS_ITS | Encounter Summary ---
Author Organization [facility] Healthcare Address [address] [place] [address] Care Team Providers Care Printed Circuit Board Panels Deburrer Name Role Phone Clinic, Medicine X. 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 Appt time moved from 11am to 3pm due to provider schedule. Pt stated she received call yesterday regarding her appt on the 4th being cancelled and moved to 8/10. Appt in chart does not reflect pt's information. NC verified that appt is 8/4 at 3pm at [facility]. Pt stated she canceled her ride when appt was canceled and unsure if she will be able to get transportation. Pt to call back once confirmed. [place] direct number given for contact. documented in this encounter Plan of Treatment Not on file documented as of this encounter Visit Diagnoses Not on filedocumented in this encounter Care Teams Printed Circuit Board Panels Deburrer Relationship Specialty Start Date End Date Clinic, Medicine X. [address] [place] [address] PCP - General 11/01/20 11/28/22 documented as of this encounter
--- OUTSIDE RECORDS SUMMARY | 2024-04-26 21:24 | XMS_ITS | Encounter Summary ---
Author Organization [facility] Healthcare Address [address] [place] [address] Care Team Providers Care Window Unit Air Conditioning Mechanic Name Role Phone Clinic, Medicine X. 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 NC placed call to pt and left message confirming imaging 11/08 at [facility] with arrival of 0730. Clinic visit with SS on 11/23 at [facility]. NC direct number left for call back. documented in this encounter Plan of Treatment Not on file documented as of this encounter Visit Diagnoses Not on filedocumented in this encounter Care Teams Window Unit Air Conditioning Mechanic Relationship Specialty Start Date End Date Clinic, Medicine X. [address] [place] [address] PCP - General 11/01/20 11/28/22 documented as of this encounter
--- OUTSIDE RECORDS SUMMARY | 2024-04-26 21:24 | XMS_ITS | Encounter Summary ---
Author Organization [facility] Healthcare Address [address] [place] [address] Care Team Providers Care Chute Worker Name Role Phone Clinic, Medicine X. 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 Pt's nurse Sahra stated [facility] transports pt to all appts and will have transportation escort call [place] back. [place] direct line given for call back. documented in this encounter Plan of Treatment Not on file documented as of this encounter Visit Diagnoses Not on filedocumented in this encounter Care Teams Chute Worker Relationship Specialty Start Date End Date Clinic, Medicine X. [address] [place] [address] PCP - General 11/01/20 11/28/22 documented as of this encounter
--- OUTSIDE RECORDS SUMMARY | 2024-04-26 21:24 | XMS_ITS | Encounter Summary ---
Author Organization [facility] Address [address] [place] [address] Phone Care Team Providers Care Health And Nutrition Specialist Name Role Phone Clinic, Medicine X. 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 Gender Identity Female 10/24/2023 9:52 AM CDT Sexual Orientation Straight 10/24/2023 9: 52 AM CDT documented as of this encounter Miscellaneous Notes * Telephone Encounter - Becky Olivo RN - 11/08/2022 9:30 AM CDT Scheduled today Precert initiated called [facility] their [phone] and spoke with Malathi CPT: Procedure's CPT Code: 87425 Dx: I82.90 thrombosis MD & NPI: Andrews Garcia [id number] [facility] tax id: [id number] Outcome: no auth needed per isnurance If approved, date range: Reference number: [id number] Also called plan directly at [phone], confirmed no auth is required. Ref # [id number] NPI Number [facility] notified documented in this encounter Plan of Treatment Not on file documented as of this encounter Visit Diagnoses Not on filedocumented in this encounter Care Teams Health And Nutrition Specialist Relationship Specialty Start Date End Date Clinic, Medicine X. [address] [place] [address] PCP - General 11/01/20 11/28/22 documented as of this encounter
--- OUTSIDE RECORDS SUMMARY | 2024-04-26 21:24 | XMS_ITS | Encounter Summary ---
Author Organization [facility] Healthcare Address [address] [place] [address] Care Team Providers Care Branch Account Executive Name Role Phone Clinic, Medicine X. 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 Imaging scheduled for 11/08/22 at 8:00 am with 7:30 am arrival at [facility]. Pt scheduled for clinic visit with SS on 11/23/22 at 11:00 am. Pt agreeable and verbalized understanding. Appt letter sent to address on file per request. [place] direct line given for contact as needed. documented in this encounter Plan of Treatment Not on file documented as of this encounter Visit Diagnoses Not on filedocumented in this encounter Care Teams Branch Account Executive Relationship Specialty Start Date End Date Clinic, Medicine X. [address] [place] [address] PCP - General 11/01/20 11/28/22 documented as of this encounter
--- OUTSIDE RECORDS SUMMARY | 2024-04-26 21:24 | XMS_ITS | Encounter Summary ---
Author Organization [facility] Healthcare Address [address] [place] [address] Care Team Providers Care Rate Marker Name Role Phone Clinic, Medicine X. 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 JESS spoke with group social worker who has updated paperwork to reflect clinic visit at [facility] with SS on 11/23/22 at 11am. Pt to call [place] with any questions or concerns. documented in this encounter Plan of Treatment Not on file documented as of this encounter Visit Diagnoses Not on filedocumented in this encounter Care Teams Rate Marker Relationship Specialty Start Date End Date Clinic, Medicine X. [address] [place] [address] PCP - General 11/01/20 11/28/22 documented as of this encounter
--- OUTSIDE RECORDS SUMMARY | 2024-04-26 21:24 | XMS_ITS | Encounter Summary ---
Author Organization [facility] Address [address] [place] [address] Phone Care Team Providers Care Deputy Commissioner Name Role Phone Clinic, Medicine X. 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 Gender Identity Female 10/24/2023 9:52 AM CDT Sexual Orientation Straight 10/24/2023 9: 52 AM CDT documented as of this encounter Miscellaneous Notes * Telephone Encounter - Becky Olivo RN - 11/08/2022 8:[address] ABDOMEN PELVIS W CONTRAST Scheduled today Precert initiated called shantel [phone], he said need to go thru [facility] their [phone] and spoke with Shaneka Blank CPT: [place] [address] Dx: I82.90 thrombosis MD & NPI: Andrews Garcia [id number] [facility] tax id: [id number] Outcome: approved If approved, date range: 11/02/22-11/02/23 Reference number: [id number] NPI Number [facility] documented in this encounter Plan of Treatment Not on file documented as of this encounter Visit Diagnoses Not on filedocumented in this encounter Care Teams Deputy Commissioner Relationship Specialty Start Date End Date Clinic, Medicine X. [address] [place] [address] PCP - General 11/01/20 11/28/22 documented as of this encounter
--- OUTSIDE RECORDS SUMMARY | 2024-04-26 21:24 | XMS_ITS | Encounter Summary ---
Author Organization [facility] Healthcare Address [address] [place] [address] Care Team Providers Care Education Professional Name Role Phone Clinic, Medicine X. Primary Care Provider [phone] Encounter Details Date Type Department Care Team (Late st Contact Info) Description 10/31/2022 Telephone [facility] Gyne[facility] Clinic [address] 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 SELECTOR Gender Identity Female 10/24/2023 9:52 AM CDT Sexual Orientation Straight 10/24/2023 9: 52 AM CDT documented as of this encounter Miscellaneous Notes * Telephone Encounter - Tatum Macias RN - 10/31/2022 10:32 AM CDT Please schedule pt: With: Resident( due to extensive medical history) Appointment Type: IGY Reason: discuss BC management after DVT When: Next Available Alkylation Operator: MARIBETH PA: NA * Telephone Encounter - Merry Alexander - 10/31/2022 10:20 AM CDT Patient called and stated she had surgery on 10/17 are 10/18 and is wanting to schedule her f/u appt can you please review discharge summary please and thanks. documented in this encounter Plan of Treatment Not on file documented as of this encounter Visit Diagnoses Not on filedocumented in this encounter Care Teams Education Professional Relationship Specialty Start Date End Date Clinic, Medicine X. [address] [place] [address] PCP - General 11/01/20 11/28/22 documented as of this encounter
--- OUTSIDE RECORDS SUMMARY | 2024-04-26 21:24 | XMS_ITS | Encounter Summary ---
Author Organization [facility] Healthcare Address [address] [place] [address] Care Team Providers Care Bell Staff Name Role Phone Clinic, Medicine X. Primary Care Provider [phone] Reason for Referral * Diagnostic Imaging (Routine) - Closed Specialty Diagnoses / Procedures Referred By Contac t Referred To Contact Diagnoses Thrombosis Procedures US VEIN DUPLEX LOWER EXTREMITY LEFT LIMITED, UNILATERAL Umberto Garcia MD [address] [address] Phone: tel: fax: [address] [address] Referral ID Status Reason Start Date Expiration Date Visits Re quested Visits Authorized [id number] Closed 10/26/2022 11/25/2023 1 1 Reason for Visit * Diagnostic Imaging (Routine) - Closed Specialty Diagnoses / Procedures Referred By Contac t Referred To Contact Diagnoses Thrombosis Procedures US VEIN DUPLEX LOWER EXTREMITY LEFT LIMITED, UNILATERAL Umberto Garcia MD [facility] [address] [address] Phone: tel: fax: [address] [address] Referral ID Status Reason Start Date Expiration Date Visits Re quested Visits Authorized [id number] Closed 10/26/2022 11/25/2023 1 1 Encounter Details Date Type Department Care Team (Latest Contact Info) Description 11/08/2022 6:39 AM CDT - 11/08/2022 11:59 PM CDT Hospital Encounter 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 Gender Identity Female 10/24/2023 9:52 AM CDT Sexual Orientation Straight 10/24/2023 9: 52 AM CDT documented as of this encounter Medications at Time of Discharge levothyroxine (SYNTHROID) 175 mcg tablet Take 1 tablet (175 mcg total) by mouth keysmith before breakfast 30 tablet 10/19/2022 Wellbutrin XL [...] 1 tablet (50 mg total) by mouth keysmith before breakfast 30 tablet 10/19/2022 4 lidocaine [...] LIMITED Schedule Routine, Read Routine (OP Routine) 11/08/2022 8:11 AM CDT Thrombosis documented in this encounter Results * US VEIN DUPLEX LOWER EXTREMITY LEFT LIMITED, UNILATERAL (11/08/2022 8:11 AM CDT) Anatomical Region Laterality Modality Vascular Left Ultrasound 11/08/2022 8:20 AM CDT Impressions 11/08/2022 8:20 AM CDT No evidence of acute deep vein thrombosis in the left lower extremity. Electronically signed by: Sahara Rhodes M.D. Narrative 11/08/2022 8:20 AM CDT EXAMINATION: LEFT LOWER EXTREMITY VENOUS DUPLEX EXAM Date: 11/08/2022 9:00 AM History: History of thrombosis Technique: A left lower extremity venous duplex imaging evaluation was performed using grayscale, color, and spectral images. Compression and augmentation maneuvers were performed. Findings: There is normal flow and compressibility within the left common femoral vein, deep femoral vein, and femoral veins. The left proximal greater saphenous vein and the saphenofemoral junction demonstrated normal flow and compressibility. The left popliteal and visualized portions of the infrapopliteal veins demonstrated flow and compressibility. The right common femoral vein is also patent. Procedure Note Sahara Rhodes MD - 11/08/2022 EXAMINATION: LEFT LOWER EXTREMITY VENOUS DUPLEX EXAM Date: 11/08/2022 9:00 AM History: History of thrombosis Technique: A left lower extremity venous duplex imaging evaluation was performed using grayscale, color, and spectral images. Compression and augmentation maneuvers were performed. Findings: There is normal flow and compressibility within the left common femoral vein, deep femoral vein, and femoral veins. The left proximal greater saphenous vein and the saphenofemoral junction demonstrated normal flow and compressibility. The left popliteal and visualized portions of the infrapopliteal veins demonstrated flow and compressibility. The right common femoral vein is also patent. IMPRESSION: No evidence of acute deep vein thrombosis in the left lower extremity. Electronically signed by: Sahara Rhodes M.D. Umberto Garcia MD [facility] PROCEDURES Final Result documented in this encounter Visit Diagnoses Diagnosis Thrombosis Embolism and thrombosis of unspecified site documented in this encounter Care Teams Bell Staff Relationship Specialty Start Date End Date [facility] X. [address] [place] [address] PCP - General 11/01/20 11/28/22 documented as of this encounter
--- OUTSIDE RECORDS SUMMARY | 2024-04-26 21:24 | XMS_ITS | Encounter Summary ---
Author Organization [facility] Healthcare Address [address] [place] [address] Care Team Providers Care Teacher Of Family And Consumer Science Name Role Phone Clinic, Medicine X. 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 [place] reached out to pt and left message with [place] direct line forcall back. documented in this encounter Plan of Treatment Not on file documented as of this encounter Visit Diagnoses Not on filedocumented in this encounter Care Teams Teacher Of Family And Consumer Science Relationship Specialty Start Date End Date Clinic, Medicine X. [address] [place] [address] PCP - General 11/01/20 11/28/22 documented as of this encounter
--- OUTSIDE RECORDS SUMMARY | 2024-04-26 21:24 | XMS_ITS | Encounter Summary ---
Author Organization [facility] Address [address] [place] [address] Phone Care Team Providers Care Inventory Management Specialist Name Role Phone Emmanuel Ornelas MD Primary Care Provider [phone] Encounter Details Date Type Department Care Team (Late st Contact Info) Description 11/29/2022 11:00 AM CDT Office Visit [facility] Radiology, Interventional Radiology [address] [facility] [address] [place] [address] Umberto Garcia MD [address] [place], [place] [id number] Deep venous thrombosis (CMS/HCC) (HCC) (Primary Dx); [...] on file 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 Gender Identity Female 10/24/2023 9:52 AM CDT Sexual Orientation Straight 10/24/2023 9: 52 AM CDT documented as of this encounter Last Filed Vital Signs Vital Sign Reading Time Taken Comments Blood Pressure - - Pulse - - Temperature - - Respiratory Rate - - Oxygen Saturation - - Inhaled Oxygen Concentration - - Weight 62.6 kg (138 lb) 11/29/2022 10:40 AM CDT Height 161.3 cm (5' 3.5 ) 11/29/2022 10:40 AM CD T Body Mass Index 24.06 11/29/2022 10:40 AM CDT documented in this encounter Ordered Prescriptions Prescription Sig Dispense Quantity Refills Last Filled Start Date End Date rivaroxaban (XARELTO) 20 mg tablet Take 1 tablet (20 mg total) by mouth daily with breakfast 30 tablet 3 11/29/2022 4 documented in this encounter Progress Notes * Umberto Garcia MD - 11/29/2022 11:00 AM CDT Images from the original note were not included. Vascular and Interventional Radiology Progress Note SUBJECTIVE: This is a 1 month follow up visit after left leg single session mechanical thrombectomyand left CIV stent placement for a May-Thurner lesion. The patient reports that her leg has some residual swelling and blue discoloration. She notices it gets worse when she weighs more, and worse with activity. She is wearing compression stockings borrowed from a friend. She is not on Lovenox, butstill taking Plavix. OBJECTIVE: General: Not in acute distress Resp: Normal respiratory motion CV: Regular rate Abdomen: Nondistended, nontender, no rebound/guarding Ext: Left leg = Mild edema, compared to the right Right leg = No edema. 10/15/2022 Legs Intake/Output: Chem/LFT Lab History Latest Ref Rng & Units 10/15/2022 09:12 10/16/2022 05:11 10/17/2022 04:52 10/18/2022 04:42 Labs-Chem/LFT Sodium 135 - 145 mmol/L 135 134 142 142 Creatinine 0.60 - 1.10 mg/dL 0.92 0.97 0.84 0.95 Bilirubin, total 0.1 - 1.2 mg/dL 0.2 <0.2 <0.2 AST 10 - 45 Units/L 22 16 20 ALT 7 - 45 Units/L 13 10 11 CrCl- Actual Body Weight (Cockcroft-Gault) 84.7 79.8 [...] stent with some residual mural thrombus. - - Clinic visit - the patient reports continued improvement of her left leg symptoms. There is some residual swelling. The patient is still on Plavix 75mg po qday but reports she was not on Lovenox over the past 4 weeks. I reassured her that the leg swelling on the left will continue toimprove, but there should be the expectation that [...] can discontinueher plavix at that time. - Ok to hold xarelto and Plavix for nasal septum surgery. Umberto Garcia MD Vascular and Interventional Radiology documented in this encounter Plan of Treatment Not on file documented as of this encounter Visit Diagnoses Diagnosis Deep venous thrombosis (CMS/HCC) (HCC)- Primary Acute venous embolism and thrombosis of unspecified deep vessels of lower extremity May-Thurner syndrome Compression of vein documented in this encounter Historical Medications * This list may reflect changes made after this encounter. venlafaxine XR (EFFEXOR-XR) 37.5 mg 24 hr capsule 11/04/19 24 topiramate (TOPAMAX) 100 mg tablet 3 11/04/19 24 polyethylene glycol (MIRALAX) 17 gram/dose powder Take 17 g by mouth daily as needed 1 01/08/20 23 ondansetron ODT (ZOFRAN-ODT) 8 mg disintegrating tablet Take 1 tablet (8 mg total) by mouth every 8 (eight) hours as needed for nausea 11/15/19 24 nicotine (NICODERM CQ) 14 mg Apply 1 patch every day by transdermal route for 14 days. 11/04/19 24 meloxicam (MOBIC) 7.5 mg tablet TK 1 T PO WITH FOOD QD 01/08/20 23 lamoTRIgine (LaMICtal) 25 mg tablet 11/04/19 24 docusate sodium (COLACE) 100 mg capsule Take 1 capsule (100 mg total) by mouth 2 (two) times a day as needed 1 11/04/19 24 cyanocobalamin (Vitamin B-12) 1,000 mcg/mL injection Inject 1 mL every month by intramuscular route. 3 11/04/19 24 cloNIDine (CATAPRES) 0.2 mg tablet 11/04/19 24 calcium carbonate (TUMS) 500 mg (200 mg elemental calcium) chewable tablet Take 1 tablet/chew tab (500 mg total) by mouth as needed 1 11/04/19 24 butalbital-acetamin ophen-caffeine (ESGIC) 50-325-40 mg per tablet TK 1-2 TS PO Q 4-6 HOURS PRN 11/04/19 24 acetaminophen-codei ne (TYLENOL with CODEINE #3) 300-30 mg per tablet TK 1 TO 2 TS PO Q 4 TO 6 H PRN 11/04/19 24 added in this encounter Care Teams Inventory Management Specialist Relationship Specialty Start Date End Date Emmanuel Ornelas MD PCP - General Obstetrics and Gynecology 11/29/2208/20 documented as of this encounter
--- OUTSIDE RECORDS SUMMARY | 2024-04-26 21:25 | XMS_ITS | Encounter Summary ---
Author Organization [facility] Healthcare Address [address] [place] [address] Care Team Providers Care Stoneworking Belt Sander Name Role Phone Clinic, Medicine X. Primary Care Provider [phone] Reason for Visit * Reason Comments Leg Pain Encounter Details Date Type Department Care Team (Late st Contact Info) Description 07/10/2021 4:15 PM CDT - 07/10/2021 6:46 PM CDT Emergency [facility] Emergency Department [address] [place] [id number] Cosmo Real MD [address] [place] [address] [place] [address] Santos Bullard MD [address] [place] [address] Pain in both lower extremities (Primary Dx); Depression, unspecified depression type Discharge Disposition: Discharge to home or self care Social History Tobacco Use Types Packs/Day Years Used Date Smoking Tobacco: Every Day Cigarettes Smokeless Tobacco: Never Alcohol Use Standard Drinks/Week Comments Not Currently 0 (1 standard drink = 0.6 oz pur e alcohol) Comments No Sex and Gender Information Value Date Recorded Sex Assigned at Not on file Legal Sex Female 7:09 AM [employer]NA[employer] Gender Identity Female 10/24/2023 9:52 AM CDT Sexual Orientation Straight 10/24/2023 9: 52 AM CDT documented as of this encounter Last Filed Vital Signs Vital Sign Reading Time Taken Comments Blood Pressure 147/101 07/10/2021 6:30 PM CDT Pulse 103 07/10/2021 6:30 PM CDT Temperature 36.8 ??C (98.2 ??F) 07/10/2021 4:13 PM CD T Respiratory Rate 16 07/10/2021 4:13 PM CDT Oxygen Saturation 99% 07/10/2021 6:30 PM CDT Inhaled Oxygen Concentration - - Weight 54.4 kg (120 lb) 07/10/2021 4:13 PM CDT Height 160 cm (5' 3 ) 07/10/2021 4:13 PM CDT Body Mass Index 21.26 07/10/2021 4:13 PM CDT documented in this encounter Discharge Diagnoses Diagnosis Pain in left leg - PAIN IN LEFT LEG Pain in right leg - PAIN IN RIGHT LEG Depression, unspecified - DEPRESSION, UNSPECIFIED documented in this encounter Discharge Instructions * Discharge Instructions* Elisa Garza, CLAIM TECHNICIAN - 07/10/2021 6:31 PM CDT MENTAL HEALTH CRISIS/URGENT CARE SERVICES Behavioral Health Response [phone] or [phone] (Crisis hotline or additional resources) [facility] Behavioral Health [phone] (Crisis hotline) [facility] Behavioral Health Urgent Care [phone] (walk in urgent care for mental health) MOBILE OUTREACH SERVICES TO ASSIST IN LOCATING OUTPATIENT CARE FOR MENTAL HEALTH Behavioral Health Response [phone] (Contact and request a mobile outreach to establish community mental health care for [facility] and [facility]) Disaster Hotline (Contact to request assistance in establishing community mental health care in [facility]) COMMUNITY MENTAL HEALTH CENTERS FOR UNINSURED OR MEDICAID [facility] Behavioral Health [phone] ([facility], [facility], [facility], [facility], and [facility]) [place] [phone] ([facility]) [facility] [phone] ([facility]) [place] ([facility]) [facility] [phone] ([facility]) [place] [phone] ([facility]) SUBSTANCE USE TREATMENT [facility] [phone] (opioid response project for [place] residents) [facility] (drug and alcohol treatment) [facility] [phone] (inpatient and outpatient rehabilitation services) [place] ([place] option for treatment) [facility] ([place] option for treatment) [facility] Off- [phone]- ([place] option for assistance in locating treatment) * Attachments The following attachments cannot be sent through Care Everywhere. * Depression (Maltese) documented in this encounter Medications at Time of Discharge Wellbutrin XL 300 mg 24 hr tabletIndication s:Anxiety with Depression Take 1 tablet (300 mg total) by mouth nightly Half tablet 05/30/2021 calcium carbonate (TUMS) 500 mg (200 mg elemental calcium) chewable tablet Take 1 tablet/chew tab (500 mg total) by mouth as needed 08/03/2010 11/04/2023 docusate sodium (COLACE) 100 mg capsule Take 1 capsule (100 mg total) by mouth 2 (two) times a day as needed 09/14/2010 11/04/2023 lidocaine (LIDODERM) 5 % Place 1 patch on the skin daily Remove & discard patch within 12 hours or as directed by . 30 patch 11/01/2020 11/15/2023 naproxen (NAPROSYN) 500 mg tabletIndication s:Anti-inflammat ory Take 1 tablet (500 mg total) by mouth 2 (two) times a day with meals 30 tablet 11/01/2020 10/18/2022 polyethylene glycol (MIRALAX) 17 gram/dose powder Take 17 g by mouth daily as needed 01/04/2011 01/07/2023 documented as of this encounter Discharge Disposition Disposition Code Departure Means Destination Discharge to home or self care documented in this encounter Consult Notes * Elisa Garza, CLAIM TECHNICIAN - 07/10/2021 5:43 PM CDTAssociated Order(s): CONSULT TO BEHAVIORAL HEALTH [facility] Is [facility] consult complete? Yes Behavioral Health Services [facility] Initial Assessment Date: 07/10/21 Start time: 1742 End time: 1814 Client Name: Sahra Parks Preferred Pronouns: she/her/hers Date of : 1980 Phone #: [phone] (home) Race: white Client Address: [address] [place] [address] [place] [address] Presenting Problem: I am a little depressed, my legs hurt and don't feel good most of the time Iget really depressed when I am around my mom Valerie and she control everything in my life Previous mental health treatment: (Inpatient/outpatient, when, where, and how many admissions in past year): Pt states when she was teenager, pt states in [place] Next appointment with psychiatrist: Denies see psychiatrist Next appointment with therapist/counselor: Denies Referral source: mother Contact number: [phone] Orientation: Alert and oriented x4 LETHALITY ASSESSMENT Current suicide ideation: Denied Prior Attempts: Yes When: long time ago How: pt states she took some pills, but was not hospitalized Suicidal Ideation in the past month? Denies, access the following: Means/access: Denies Protective Factors (Recent): Identifies reasons for living Other Protective Factors (Describe): Pt states that she has family and she has children Activating Events (Recent): Valerie, my mother Self Mutilation: No Violent behavior: pt states when there is someone smoking meth in my hosue and poking at me, I get angry, I start getting in a bad mood Homicidal Ideation: Denied MOOD SYMPTOMS Depressed and Irritable Frequency/Time Frame: Pt states off and on Sleep: Insomnia How many hours in 24 hour period? Pt states it has not been that great, pt states she goes to sleepanywhere from 8 to 10 and then stays in bed from 8 to 10 am Appetite: Eating less Time Frame: pt states she has poor appetite No changes PSYCHOTIC SYMPTOMS Delusions: Denies Paranoia: Denies Hallucinations: None Observed Insight (into psychotic symptoms): N\A ANXIETY SYMPTOMS Anxiety/worry TRAUMA Have you or anyone close to you ever witnessed or experienced the following traumatic events?: denies Describe: (include timeline and if seeking treatment currently): NA ABUSE: Physical: when was little, Emotional: when was little, Neglect: denies, Sexual: when was little andExploitation: when was little Symptoms: Denies MENTAL STATUS EXAM Appearance/hygiene: Disheveled Affect: Guarded Speech: Clear Insight: fair Thought process: [place] Judgement: good Behavior: Cooperative Intellectual Functioning: WNL Performs ADL's: Yes Independent Reads: Yes Writes: Yes MEDICAL HISTORY Medical Conditions: No Medication Compliant: No Assistive Medical Devices: none PCP: pt states she has to get insurance and then will get one Allergies Allergies Allergen Reactions ??? Opioids - Morphine Analogues Other (See comments) Reaction: Throat Swelling, ??? Sulfa (Sulfonamide Antibiotics) Vomiting, Nausea And Vomiting and Rash Reaction: Vomiting, ??? Ciprofloxacin Nausea only and Vomiting Reaction: Nausea, Vomiting, Medications (include dosage and frequency): Patient in the Emergency Room: Prior to Admission medications Medication Sig Start Date End Date Taking? Authorizing Provider naproxen (NAPROSYN) 500 mg tablet Take 1 tablet (500 mg total) by mouth 2 (two) times a day with meals 11/01/20 Donna Das MD Pharmacy: [facility] PSYCHOSOCIAL: (Describe: life situation, highest level of educations, [employer] affiliation, family history of mental illness/substance abuse, i.e.) Sahra Parks is a 40 y.o. single White female who was born and raised in [place] and currently lives in [place]. Patient's gender assigned at was female and currently identifies as a female.Patient prefers she/her/hers pronouns. Patient currently lives mother. Patient has 4 siblings. Patient has 3 children. Patient received GED. Patient states no methodist preference. Patient is unemployed. Patient reports family history of mental illness: Mother, brother and cousin. Patient reports family history of suicide attempts or completions: denies. Patient reports family history of substance use: mother and cousin . UDS positive for negative. Alcohol level not complete Smoking Status: Smoker and Amount: 1 ppd Alcohol Use: Yes Illegal Drug Use: Denies Abuse of prescription drug(s): Denies Legal issues: no legal problems, but needs to go to court to get her kids, states ex has them Serve in : No [place] Benefits: no DFS/DHSS involvement: No Guardian: No State appointed guardian: No Mental Health POA/DPOA: No/Denies POA: No/Denies Financial stressors:Not working PROVISIONAL DIAGNOSIS: F39 Unspecified mood (affective) disorder, CASE SUMMARY/ADDITIONAL COMMENTS: Patient presents to the ER with mother. Patient denies suicidal thoughts. Patient denies homicidal thoughts. Patient denies auditory or visual hallucinations. Patient does not have any outpatient providers for psychiatric treatment. Patient denies medications Patient reports alcohol use. Patient den ies substance use. ER PA Haritha Otero and [facility] discussed patient disposition. Both agree that this patient does not meet criteria for inpatient psychiatric admission. Patient acknowledges their understanding of the plan of care without any questions at this time. [facility] will provide outpatient resources including substance abuse repources. Cohorting Recommendations: There are no contraindications for patient to have a roommate at this time while on the medical floor. If cohorting is necessary, please verify with the treatment team at that time. Distractions and things that may help: Give options when possible What staff can do proactively: For Depression: Make time to listen to patient ADDITIONAL ASSESSMENTS: Behavioral Health Services [facility] Intake Assessment Addendum Substance Use Alcohol Alcohol Type(s): Wine Age Started: highschool Amount: glass of wine Frequency: maybe glass of wine with meal Last Use: last week Amphetamine Amphetamine Type: Denies Cannabis Cannabis Type: Denies Cocaine Cocaine Type: Denies Hallucinogens Hallucinogens Type: Denies Inhalants Inhalants Type: Denies Opiate/Opiate Like Opiate/Opiate Like Type: Denies PCP PCP Type: Denies Sedatives/Hypnotics Sedatives, Hypnotics Type: Denies Over The Counter Assessment Withdrawal History Symptoms Problems Associated with Chemical Use Based on the first part of the assessment, haritha those criteria present. You may need to ask furtherquestions to clarify the presence of a particular criteria. CRITERIA FOR A PROVSIONAL DIAGNOSIS: Three or more are required for a referral to treatment. and Johnson Suicide Severity Rating Scale (Recent Screener) Johnson Suicide Severity Rating Scale (Recent Screener) 1. In the past month, have you wished you were or that you could go to sleep and not wake up?:No 2. In the past month, have you actually had any thoughts of killing yourself?: No 6. Have you ever done anything, started to do anything, or prepared to do anything to end your life?: No Suicide Risk Level: No risk level Elisa Garza LCSW Behavioral Health [facility] [phone] Telehealth Patient? Yes This was a telepsych/telemedicine visit with Sahra Parks which took placevia real-time video connection with [employer]. During the visit, I was located at my residence, and the patient was located at [facility] in the [facility]. After being given an opportunity to ask questions about and discuss this type of visit, the patientand/or guardian verbally consented to proceeding with the video visit. The patient and/or guardian understands that they may be billed and/or responsible for any applicable copayments. The patient and/or guardian agrees to participate in a psychiatric assessment service via Interactive Video Conferencing with a Qualified Mental Health Professional. Patient and/or guardian understands that their privacy and confidentiality will be protected at all times and all reasonable and appropriate measures will be made to eliminate all confidentiality risks. Patient and/or guardian understands that the services they receive are part of the patient's hospital record. Patient and/or guardian is aware that the [facility] and Hospital Staff will have access to the patient's relevant medical information including psychiatric and/or psychological information, alcohol and/or drug use and mental health records.Patient and/or guardian understands this consent is part of the patient's medical record. documented in this encounter ED Notes * Elisa Garza LCSW - 07/10/2021 6:07 PM CDT Patient Safety Plan Step 1: Warning Signs (thoughts, images, mood, situation, behavior) that a crisis may be developin. Voice will elevate 2. cry 3. Isolate Step 2: Internal Coping Strategies-Things I can do to take my mind off my problems without contacting another person (relaxation technique, physical activity): 1. Listen to music 2. Take a bath 3. Go for walk Step 3: People and social settings that provide distraction: 1. Name: [address] Phone number: Pt does not have number memorized 2. Place: go to room 3. Place: Sit outside Step 4: People whom I can ask for help: Pt states she really does not have anyone But her children who are ages 10, 11 and in college, but lives with mother Step 5: Professionals or agencies I can contact during a crisis: 1. Clinician Name: [facility] behavioral Health A. Phone number: [phone] 2. Clinician Name: [facility]. Phone number: [phone] 3. Local Urgent Services: [facility] Urgent Care A. Urgent Care Services Address: [phone] 4. Suicide Prevention Lifeline Phone: [phone] ([phone]) Step 6: Making the environment safe: 1. Lock up medications 2. Lock up sharp objects The one thing that is most important to me and worth living for is (patients/clients own words): Kids and self Elisa Garza LCSW 07/10/21 6:07 PM * Haritha Otero, BRDAY - 07/10/2021 4:16 PM CDT Images from the original note were not included. ED Provider Note HPI: Sahra Parks is a 40 y.o. female with history of anxiety and depression who presents to ED via private vehicle due to multiple complaints. She states that she has had intermittent bilateral lower extremity and and request for medication adjustment. She states that she has had intermittent lower leg pain for several months and she has noted episodes in which her legs turned ???green?? . She has not been evaluated by her primary care doctor for this. She does not take any medications for this. Patient is also requesting adjustment of her psych medications. She states that Effexor is not helping her depression. She is living with her mother, but they do not get along and she was hoping to go somewhere else to live. She does not have any local family. She states that she has some family [place] that she might be able to live with, otherwise she may have to go to a crisis skilled nursing. Sh andrea claims that her mother abuses methamphetamines. She states that she needs to find a new psychiatrist because she lost her insurance. PMH: Past Medical History: Diagnosis Date ??? Cellulitis Cellulitis - (Added by TW Conv) PMHx, SOCIAL / FAMILY HISTORY: I have read and agree with the pertinent medical/surgical history, psychiatric history, social history, and family history as documented by nursing. REVIEW OF SYSTEMS: Review of Systems Constitutional: Negative for chills and fever. HENT: Negative for hearing loss and tinnitus. Eyes: Negative for blurred vision and double vision. Respiratory: Negative for cough and hemoptysis. Cardiovascular: Negative for chest pain and palpitations. Gastrointestinal: Negative for abdominal pain, nausea and vomiting. Genitourinary: Negative for dysuria. Musculoskeletal: Negative for myalgias. Skin: Negative for rash. Neurological: Negative for dizziness and headaches. Psychiatric/Behavioral: Positive for depression. Negative for hallucinations, substance abuse and suicidal ideas. The patient is nervous/anxious and has insomnia. All other systems reviewed and are negative. HOME MEDICATIONS: No current facility-administered medications on file prior to encounter. Current Outpatient Medications on File Prior to Encounter Medication Sig Dispense Refill ??? naproxen (NAPROSYN) 500 mg tablet Take 1 tablet (500 mg total) by mouth 2 (two) times a day with meals 30 tablet 0 VITALS: Vitals: 07/10/21 1613 07/10/21 1745 07/10/21 1815 07/10/21 1830 BP: (!) 157/101 (!) 147/101 Pulse: 101 102 109 103 Resp: 16 Temp: 36.8 ??C (98.2 ??F) SpO2: 100% 100% 100% 99% Weight: 54.4 kg (120 lb) Height: 160 cm (5' 3 ) PHYSICAL EXAM: Vital signs reviewed. Physical Exam Vitals and nursing note reviewed. HENT: Head: Normocephalic and atraumatic. Eyes: Pupils: Pupils are equal, round, and reactive to light. Cardiovascular: Rate and Rhythm: Normal rate and regular rhythm. Pulmonary: Effort: Pulmonary effort is normal. Breath sounds: Normal breath sounds. Abdominal: General: Bowel sounds are normal. Palpations: Abdomen is soft. Musculoskeletal: General: Normal range of motion. Cervical back: Normal range of motion and neck supple. Comments: Legs are normal in appearance. Bilateral pedal pulses intact. No redness, induration, fluctuance, or drainage noted. Skin: General: Skin is warm. Neurological: Mental Status: She is alert and oriented to person, place, and time. Psychiatric: Attention and Perception: She does not perceive auditory or visual hallucinations. Mood and Affect: Affect is blunt. Speech: Speech is delayed. Thought Content: Thought content does not include homicidal or suicidal ideation. Thought content does not include homicidal or suicidal plan. Comments: Intermittently tearful. Often stops talking and stares at me without saying anything. Labs Reviewed COMPREHENSIVE METABOLIC PANEL - Abnormal Result Value Sodium 133 (*) Potassium, pl 3.6 Chloride 101 CO2 22 Anion gap 10 BUN 5 (*) Creatinine 0.77 Glucose 104 Calcium 9.0 Bilirubin, total 0.2 Protein, pl 6.6 Albumin 4.4 Alk phos 38 (*) ALT 8 AST 17 POCT HCG, URINE - Normal HCG, ur, POC Negative Lot Number [id number] QC Backgroud Clear Acceptable QC Control Line Acceptable CBC WITH AUTO DIFFERENTIAL WBC 8.0 Hgb 13.6 Hct 40.0 Plt 267 MPV 9.4 RBC 4.48 MCV 89.3 MCH 30.4 MCHC 34.0 RDW CV 13.5 RDW SD 44.4 NRBC abs 0.00 TSH REFLEX TO FREE T4 TSH 0.41 DRUGS OF ABUSE SCREEN, URINE WITHOUT CONFIRMATION Amphetamine, ur Not Detected Barbiturates, ur Not Detected Benzodiazepines, ur Not Detected Cannabinoids, ur Not Detected Cocaine, ur Not Detected Fentanyl, Ur Not Detected Methadone, ur Not Detected Opiates, ur Not Detected Oxycodone, ur Not Detected Phencyclidine, ur Not Detected Urine Creatinine 11 Narrative: Drug of Abuse screening is performed by immunoassay for medical purposes only. This is not to be used for Pain Management purposes. DIFFERENTIAL AUTO Neutrophil abs 4.9 Imm gran abs 0.0 Lymphocyte abs 2.0 Monocyte abs 0.8 Eosinophil abs 0.3 Basophil abs 0.0 Neutrophil pct 61.4 Imm gran pct 0.4 Lymphocyte pct 24.6 Monocyte pct 10.1 Eosinophil pct 3.1 Basophil pct 0.4 EGFR eGFR 101 No orders to display Affidavit written by patient's mother: ED Course: Sahra Parks is a 40 y.o. female who presents to ED today due to leg pain and request for psych medication adjustment. Leg exam is normal. I will order basic labs and psych assessment. Patient denies SI or HI at this time. RN Antonio states that patient's mother is coming in to write an affidavit. Re-eval--patient's mother has written if needed, however I do not believe there is enough information to hold patient for psychiatric admission. Patient has had full psychiatric assessment and the psych teradata architect agrees that patient may be discharged. Patient may be discharged to crisis center whereshe wishes to go. She will need outpatient psychiatric follow-up. Impression: 1. Pain in both lower extremities 2. Depression, unspecified depression type Signed by BRADY Bautista, 07/10/21 10:56 PM. Medications given/initiated during ED stay: Medications - No data to display New Rx for this encounter: No orders of the defined types were placed in this encounter. Haritha Otero PA 07/10/21 [id number] Cosigned by Santos Bullard MD at 07/10/2021 11:57 PM CDT Associated attestation - Santos Bullard MD - 07/10/2021 11:57 PM CDT ED Attestation Based on the medical record the care appears appropriate. * Maryana Huynh RN - 07/10/2021 4:12 PM CDT Pt presents to the ER with complaints of bilateral leg pain. Pt says, I'm depressed but I don't want to kill myself or anything. When asked about the leg pain, pt says, its been going on for a while but unable to give an exact time. documented in this encounter Plan of Treatment Not on file documented as of this encounter Procedures Procedure Name Priority Date/Time Associated Diagnosis Comments POCT HCG, URINE Routine 07/10/2021 5:22 PM CDT DRUGS OF ABUSE SCREEN, URINE WITHOUT CONFIRMATION STAT 07/10/2021 5:18 PM CDT EGFR STAT 07/10/2021 5:16 PM CDT DIFFERENTIAL AUTO STAT 07/10/2021 5:1 6 PM CDT THYROID FUNCTION CASCADE Routine 07/10/2021 5:16 PM CDT CBC WITH AUTO DIFFERENTIAL STAT 07/10/2021 5:16 PM CDT COMPREHENSIVE METABOLIC PANEL STAT 07/10/2021 5:16 PM CDT documented in this encounter Results * POCT hCG, urine (07/10/2021 5:22 PM CDT) HCG, ur, POC Negative Lot Number [id number] QC Backgroud Clear Acceptable QC Control Line Acceptable Urine 07/10/2021 5:22 PM CDT Haritha ABREU POINT OF CARE TEST ORDERA BLES Final Result * Drugs of Abuse Screen, Urine without Confirmation (07/10/2021 5:18 PM CDT) Amphetamine, ur Not Detected CutOff 500ng/mL [facility] Comment: Interpretive Data - Amphetamines: ??Samples containing greater than 500 ng/mL d-methamphetamine ??or other cross-reacting amphetamine compounds are reported as positive. ??Amphetamine immunoassays are subject to significant false positive rates due to cross-reactivity of non-amphetamine drugs. Current Interpretive Data was last reviewed 2018. Barbiturates, ur Not Detected CutOff 200ng/mL [facility] Comment: Interpretive Data - Barbiturates: ??Samples containing greater than 200 ng/mL secobarbital or other cross-reacting barbiturate compounds are reported as positive. ??False positive and false negative results are possible. Current Interpretive Data was last reviewed 2018. Benzodiazepines, ur Not Detected CutOff 100ng/mL [facility] Comment: Interpretive Data - Benzodiazepines: ??Samples containing greater than 100 ng/mL nordiazepam or other cross-reacting compounds are reported as positive. ?? False positive and false negative results are possible. ?? Current Interpretive Data was last reviewed 2018. Cannabinoids, ur Not Detected CutOff 50 ng/mL [facility] Comment: Interpretive Data - Cannabinoids: ??Samples containing greater than 50 ng/mL delta-9 THC -COOH or other cross-reacting compounds are reported as positive. ??False positive and false negative results are possible. ?? Current Interpretive Data was last reviewed 2018. Cocaine, ur Not Detected CutOff 150ng/mL [facility] Comment: Interpretive Data - Cocaine: ??Samples containing greater than 150 ng/mL benzoylecgonine or other cross-reacting compounds are reported as positive. False positive and false negative results are possible. Current Interpretive Data was last reviewed 2018. Fentanyl, Ur Not Detected Cutoff 1 ng/mL [facility] Comment: Interpretive Data - Fentanyls: ??Samples containing greater than 1 ng/mL fentanyl or other cross-reacting fentanyl compounds are reported as detected. ??False positive and false negative results are possible. Current Interpretive Data was last reviewed 2018. Methadone, ur Not Detected CutOff 300ng/mL [facility] Comment: Interpretive Data - Methadone: ??Samples containing greater than 300 ng/mL d,l-methadone or other cross-reacting compounds are reported as positive. ??False positive and false negative results are possible. Current Interpretive Data was last reviewed 2018. Opiates, ur Not Detected CutOff 300ng/mL [facility] Comment: Interpretive Data - Opiates: ??Samples containing greater than 300 ng/mL morphine or other cross-reacting compounds are reported as positive. ??False positive and false negative results are possible. Current Interpretive Data was last reviewed 2018. Oxycodone, ur Not Detected CutOff 100ng/mL [facility] Comment: Interpretive Data - Oxycodone: ??Samples containing greater than 100 ng/mL oxycodone or other cross-reacting compounds are reported as positive. ??False positive and false negative results are possible. ?? Current Interpretive Data was last reviewed 2018. Phencyclidine, ur Not Detected CutOff 25 ng/mL [facility] Comment: Interpretive Data - Phencyclidine: ??Samples containing greater than 25 ng/mL phencyclidine or other cross-reacting compounds are reported as positive. ??False positive and false negative results are possible. ?? Current Interpretive Data was last reviewed 2018. Urine Creatinine 11 mg/dL [facility] Comment: Interpretive Data Urine Creatinine: < 10 mg/dL is extremely dilute = or > 10 but < 20 mg/dL is dilute = or > 20 mg/dL is normal Current Interpretive Data was last revised on 2017. Urine 07/10/2021 5:18 PM CDT 07/10/2021 5:33 PM CDT Narrative [facility] - 07/10/2021 5:58 PM CDT Drug of Abuse screening is performed by immunoassay for medical purposes only. ??This is not to be used for Pain Management purposes. Haritha ABREU LAB URINE ORDERABLES Allie barnhart Result [facility] [address] [facility] Department [place] [address] * eGFR (07/10/2021 5:16 PM CDT) Pathologist [facility] eGFR 101 mL/min/1. 73 m2 [facility] Comment: Interpretive Data Reference Interval Normal ?>/= [...] interpretive data was last reviewed 2021. Blood 07/10/2021 5:16 PM CDT 07/10/2021 5:20 PM CDT us Haritha ABREU LAB BLOOD ORDERABLES Allie barnhart Result [address] Department [place] [address] * Differential, auto (07/10/2021 5:16 PM CDT) Neutrophil abs 4.9 1.7 - 6.5 K/cumm [facility] Imm gran abs 0.0 0.0 - 0.1 K/cumm [facility] Lymphocyte abs 2.0 0.8 - 3.3 K/cumm [facility] Monocyte abs 0.8 0.2 - 0.8 K/cumm [facility] Eosinophil abs 0.3 0.0 - 0.5 K/cumm [facility] Basophil abs 0.0 0.0 - 0.1 K/cumm [facility] Neutrophil pct 61.4 % [facility] Comment: Interpretive Data Percent cell count reference ranges are not reported, since discordance with absolute values may lead to misinterpretation of CBC data. Current Interpretive Data was last revised on 2017. Imm gran pct 0.4 % [facility] Comment: Interpretive Data Percent cell count reference ranges are not reported, since discordance with absolute values may lead to misinterpretation of CBC data. Current Interpretive Data was last revised on 2017. Lymphocyte pct 24.6 % [facility] Comment: Interpretive Data Percent cell count reference ranges are not reported, since discordance with absolute values may lead to misinterpretation of CBC data. Current Interpretive Data was last revised on 2017. Monocyte pct 10.1 % [facility] Comment: Interpretive Data Percent cell count reference ranges are not reported, since discordance with absolute values may lead to misinterpretation of CBC data. Current Interpretive Data was last revised on 2017. Eosinophil pct 3.1 % [facility] Comment: Interpretive Data Percent cell count reference ranges are not reported, since discordance with absolute values may lead to misinterpretation of CBC data. Current Interpretive Data was last revised on 2017. Basophil pct 0.4 % [facility] Comment: Interpretive Data Percent cell count reference ranges are not reported, since discordance with absolute values may lead to misinterpretation of CBC data. Current Interpretive Data was last revised on 2017. Blood 07/10/2021 5:16 PM CDT 07/10/2021 5:20 PM CDT Haritha ABREU LAB BLOOD ORDERABLES Allie l Result [address] Department of Laboratories [place], [place] [id number] * TSH reflex to free T4 (07/10/2021 5:16 PM CDT) Pathologist [facility] TSH 0.41 0.30 - 4.20 mcIUnit/mL [facility] Blood 07/10/2021 5:16 PM CDT 07/10/2021 5:20 PM CDT Haritha ABREU LAB BLOOD ORDERABLES Allie l Result [address] Department of Laboratories [place], [place] [id number] * (ABNORMAL) Comprehensive metabolic panel (07/10/2021 5:16 PM CDT) Sodium 133(L) 135 - 145 mmol/L [facility] Potassium, pl 3.6 3.3 - 4.9 mmol/L [facility] Chloride 101 97 - 110 mmol/L [facility] CO2 22 22 - 32 mmol/L [facility] Anion gap 10 2 - 15 mmol/L [facility] BUN 5(L) 8 - 25 mg/dL [facility] Creatinine 0.77 0.60 - 1.10 mg/dL [facility] Glucose 104 70 - 199 mg/dL [facility] Comment: Interpretive Data Fasting glucose >/= 126 [...] classification and Diagnosis of Diabetes Diabetes Care 2017;40 (Suppl. 1):S11. Current interpretive data was last revised 2017. Calcium 9.0 8.5 - 10.3 mg/dL [facility] Bilirubin, total 0.2 0.1 - 1.2 mg/dL [facility] Protein, pl 6.6 6.5 - 8.5 g/dL [facility] Albumin 4.4 3.5 - 5.0 g/dL [facility] Alk phos 38(L) 40 - 130 Units/L [facility] ALT 8 7 - 45 Units/L [facility] AST 17 10 - 45 Units/L [facility] Blood 07/10/2021 5:16 PM CDT 07/10/2021 5:20 PM CDT us Haritha ABREU LAB BLOOD ORDERABLES Allie barnhart Result [facility] [address] [facility] Department [place] [address] * CBC with auto differential (07/10/2021 5:16 PM CDT) WBC 8.0 3.8 - 9.9 K/cumm [facility] Hgb 13.6 11.9 - 15.5 g/dL [facility] Hct 40.0 35.6 - 45.5 % [facility] Plt 267 150 - 400 K/cumm [facility] MPV 9.4 9.1 - 12.3 fL [facility] RBC 4.48 3.90 - 5.20 M/cumm [facility] MCV 89.3 81.3 - 96.4 fL [facility] MCH 30.4 27.1 - 33.3 pg [facility] MCHC 34.0 32.3 - 35.7 g/dL [facility] RDW CV 13.5 11.1 - 14.9 % [facility] RDW SD 44.4 35.7 - 48.1 fL [facility] NRBC abs 0.00 0.00 - 0.01 K/cumm [facility] Blood 07/10/2021 5:16 PM CDT 07/10/2021 5:20 PM CDT us Haritha ABREU LAB BLOOD ORDERABLES Allie barnhart Result [facility] [address] Department [place] [address] documented in this encounter Visit Diagnoses Diagnosis Pain in both lower extremities- Primary Depression, unspecified depression type documented in this encounter Orders Consult Count Last Ordered Date First Orde red Date CONSULT TO [facility] HP 1 022 documented in this encounter Care Teams [employer]working [employer] Sander Relationship Specialty Start Date End Date Clinic, Medicine [address] [place] [address] PCP - General 11/01/20 11/28/22 documented as of this encounter
--- OUTSIDE RECORDS SUMMARY | 2024-04-26 21:25 | XMS_ITS | Encounter Summary ---
Author Organization [facility] Facility Care Team Providers Care Card Reader Name Role Phone Unavailable Primary Care Provider Unavailabl e Encounter Details Date Type Department Care Team (Latest Contact Info) Description 09/17/2009 11:06 AM CDT - 09/17/2009 4:19 PM CDT Hospital Encounter [facility] Hypertension in , condition; Dizziness and giddiness; Edema Social History Tobacco Use Types Packs/Day Years Used Date Smoking Tobacco: Never Assessed Comments Unknown Sex and Gender Information Value Date Recorded Sex Assigned at Not on file 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
--- OUTSIDE RECORDS SUMMARY | 2024-04-26 21:25 | XMS_ITS | Encounter Summary ---
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 Primary Care Provider Reason for Visit * Reason Comments Chest Pain Patient complaining of midsternal chest pain for greater than 3 months. Patient states movement makes pain worse. Encounter Details Date Type Department Care Team (Late st Contact Info) Description 11/01/2020 7:35 PM CDT - 11/01/2020 9:43 PM CDT Emergency [facility] Emergency Department [address] [place] [id number] Donna Das MD [address] [place] [address] [place] [address] Chest wall pain (Primary Dx); Palpitations Discharge Disposition: Discharge to home or self care Social History Tobacco Use Types Packs/Day Years Used Date Smoking Tobacco: Every Day Cigarettes Smokeless Tobacco: Never Alcohol Use Standard Drinks/Week Comments Not Currently 0 (1 standard drink = 0.6 oz pur e alcohol) Comments No Sex and Gender Information Value Date Recorded Sex Assigned at Not on file Legal 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 Gender Identity Female 10/24/2023 9:52 AM CDT Sexual Orientation Straight 10/24/2023 9: 52 AM CDT documented as of this encounter Last Filed Vital Signs Vital Sign Reading Time Taken Comments Blood Pressure 130/93 11/01/2020 9:00 PM CDT Pulse 69 11/01/2020 9:00 PM CDT Temperature 36.2 ??C (97.1 ??F) 11/01/2020 7:33 PM CD T Respiratory Rate 17 11/01/2020 9:00 PM CDT Oxygen Saturation 99% 11/01/2020 9:00 PM CDT Inhaled Oxygen Concentration - - Weight 49.9 kg (110 lb) 11/01/2020 7:33 PM CDT Height 162.6 cm (5' 4 ) 11/01/2020 7:33 PM CDT Body Mass Index 18.88 11/01/2020 7:33 PM CDT documented in this encounter Discharge Diagnoses Diagnosis Other chest pain - OTHER CHEST PAIN Palpitations - PALPITATIONS Systemic lupus erythematosus, unspecified (HCC) - SYSTEMIC LUPUS ERYTHEMATOSUS, UNSPECIFIED Hypothyroidism, unspecified - HYPOTHYROIDISM, UNSPECIFIED Unspecified asthma, uncomplicated - UNSPECIFIED ASTHMA, UNCOMPLICATED Nicotine dependence, cigarettes, uncomplicated - NICOTINE DEPENDENCE, CIGARETTES, UNCOMPLICATED Allergy status to sulfonamides - ALLERGY STATUS TO SULFONAMIDES documented in this encounter Discharge Instructions * Discharge Instructions* Donna Das MD - 11/01/2020 8:47 PM CDT As we discussed, your test tonight did not show any specific heart or lung problem causing your symptoms. You may have some inflammation in the chest wall that is causing your pain. Take the Naprosyn twice daily. Apply the Lidoderm patches as needed for pain. Follow-up with eitherthe clinic or chief pilot listed here for an outpatient rhythm monitor for further evaluation. * Attachments The following attachments cannot be sent through Care Everywhere. * Heart Palpitations (Customer Sales Consultant) (Filipino) * Chest Wall Pain (AfterCare(R) Instructions(ER/ED)) (Filipino) documented in this encounter Medications at Time of Discharge calcium carbonate (TUMS) 500 mg (200 mg [...] 01/04/2011 01/07/2023 documented as of this encounter Ordered Prescriptions Prescription Sig Dispense Quantity Refills Last Filled Start Date End Date lidocaine (LIDODERM) 5 % Place 1 patch on the skin daily Remove & discard patch within 12 hours or as directed by . 30 patch 11/01/2020 naproxen (NAPROSYN) 500 mg tabletIndications: Anti-inflammatory Take 1 tablet (500 mg total) by mouth 2 (two) times a day with meals 30 tablet 11/01/2020 3 documented in this encounter Discharge Disposition Disposition Code Departure Means Destination Discharge to home or self care documented in this encounter Progress Notes * Rajinder Haywood - 11/01/2020 9:43 PM CDT LM to callPadmaja Daly documented in this encounter ED Notes * Donna Das MD - 11/01/2020 8:40 PM CDT HPI Chief Complaint Patient presents with ??? Chest Pain Patient complaining of midsternal chest pain for greater than 3 months. Patient states movement makes pain worse. 40-year-old female with a history of asthma, lupus, hypothyroidism presents with a chief complaint of 1 year of intermittent chest pain and palpitations. She states that she has episodes of several hours of anterior chest pain at a time. It is aching, nonradiating, and worse with movement. She saysshe sometimes feels as though her heart is ???beating hard?? . She says that sometimes her pain make s her feel lightheaded and dizzy. She cannot identify any specific alleviating factors. She is not short of breath. She denies any fever or cough. Symptoms have been intermittent for the past year. She says she has mentioned this to her doctor but has never been evaluated. She says thatevee is taking her thyroid medication and has not had any recent changes. Her thyroid studies were last checked approximately 4 weeks ago. She denies any history of PE or DVT. She does smoke. She denies any cardiac history. Patient History: Patient Active Problem List Diagnosis Date Noted ??? Carpal tunnel syndrome on left 09/14/2010 ??? Seizure disorder ([facility]) 09/14/2010 ??? Asthma 07/06/2010 ??? Encounter for health-related screening 07/06/2010 ??? SAB (spontaneous ) 07/06/2010 ??? Status post umbilical hernia repair, follow-up exam 07/06/2010 ??? Tobacco use disorder complicating , childbirth, or the puerperium 07/06/2010 ??? Anxiety 06/22/2010 ??? GBS (group B streptococcus) UTI complicating 06/22/2010 ??? Hypothyroid 06/22/2010 ??? History of delivery, currently 06/22/2010 ??? Lupus (systemic lupus erythematosus) ([facility]) 06/22/2010 ??? Marijuana abuse 06/22/2010 ??? S/P cone biopsy of cervix 06/22/2010 ??? Severe pre-eclampsia, antepartum 06/22/2010 ??? Supervision of high-risk 06/22/2010 Past Medical History: Diagnosis Date ??? Cellulitis Cellulitis - (Added by ЮЛИЯ Sauceda) History reviewed. No pertinent surgical history. History reviewed. No pertinent family history. Social History Tobacco Use ??? Smoking status: Current Every Day Smoker Packs/day: 0.50 Types: Cigarettes ??? Smokeless tobacco: Never Used Substance Use Topics ??? Alcohol use: Not Currently ??? Drug use: Never Social History Social History Narrative ??? Not on file Review of Systems Review of Systems Constitutional: Negative for chills and fever. HENT: Negative for ear pain and sore throat. Eyes: Negative for pain and visual disturbance. Respiratory: Negative for cough and shortness of breath. Cardiovascular: Positive for chest pain. Negative for palpitations. Gastrointestinal: Negative for abdominal pain and vomiting. Genitourinary: Negative for dysuria and hematuria. Musculoskeletal: Negative for arthralgias and back pain. Skin: Negative for color change and rash. Neurological: Positive for light-headedness. Negative for seizures and syncope. All other systems reviewed and are negative. Physical Exam ED Triage Vitals [11/01/20 1933] Temp Pulse Resp BP SpO2 36.2 ??C (97.1 ??F) 90 16 (!) 142/103 100 % Temp src Heart Rate Source Patient Position BP Location FiO2 (%) -- -- -- -- -- Physical Exam Vitals and nursing note reviewed. Constitutional: General: She is not in acute distress. Appearance: She is well-developed. Comments: Thin white female, no acute distress HENT: Head: Normocephalic and atraumatic. Eyes: Conjunctiva/sclera: Conjunctivae normal. Cardiovascular: Rate and Rhythm: Normal rate and regular rhythm. Heart sounds: Normal heart sounds. No murmur heard. Pulmonary: Effort: Pulmonary effort is normal. No respiratory distress. Breath sounds: Normal breath sounds. No decreased breath sounds. Chest: Chest wall: Tenderness present. Comments: There is focal tenderness along the left costosternal border, particularly at the lower joints. There is no overlying erythema or edema. Abdominal: General: Bowel sounds are normal. There is no distension. Palpations: Abdomen is soft. Tenderness: There is no abdominal tenderness. There is no guarding. Musculoskeletal: Cervical back: Neck supple. Right lower leg: No tenderness. No edema. Left lower leg: No tenderness. No edema. Skin: General: Skin is warm and dry. Neurological: General: No focal deficit present. Mental Status: She is alert and oriented to person, place, and time. MDM Medical Decision Making Differential Diagnosis or Management Options: Patient's chest pain is very reproducible with palpation along the costosternal border, likely musculoskeletal in nature. Her EKG is normal. She is very low risk for ACS. A single troponin should be sufficient as her pain has been going on for months to a year. She is PERC negative. Her chest x-ray is clear. Will give Toradol and apply a lidocaine patch to the chest wall. She is [place] moving [place] or a. Will give information for anew primary care physicians so that she can pursue outpatient Holter monitor her for further evaluation. Attending Summary of Care Chest wall pain Palpitations Donna Das MD 11/01/202046 * Zeenat Roberts RN - 11/01/2020 8:02 PM CDT Pt presents to the ED via private vehicle c/o intermittent chest pain x months. Pt states she feelslike at times her heart beats hard and then beats off for a short time after. Pt states sometimes it makes her nauseated and at times SOB. Pt states the pain is to her left chest. Zeenat Roberts, YANET 11/01/202003 * Jakob Haywood RN - 11/01/2020 7:32 PM CDT Patient complaining of midsternal chest pain for greater than 3 months. Patient states movement makes pain worse. documented in this encounter Miscellaneous Notes * ED Procedure Note - Donna Das MD - 11/01/2020 8:21 PM CDT Associated Order(s): ECG 12 lead Procedure ECG 12 lead Date/Time: 11/01/2020 8:21 PM Performed by: Donna Das MD Authorized by: Donna Das MD EKG at 2000shows a sinus rhythm with no ectopy or acute ischemic change. Donna Das MD 11/01/202020 documented in this encounter Plan of Treatment Not on file documented as of this encounter Procedures Procedure Name Priority Date/Time Associated Diagnosis Comments ECG 12-LEAD STAT 11/01/2020 8:00 PM CDT TROPONIN T HIGH-SENSITIVITY SERIES (BASELINE, 2HR, 4HR, 6HR) STAT 11/01/2020 7:57 PM CDT EGFR STAT 11/01/2020 7:57 PM CDT DIFFERENTIAL AUTO STAT 11/01/2020 7:5 7 PM CDT CBC WITH AUTO DIFFERENTIAL STAT 11/01/2020 7:57 PM CDT DRUGS OF ABUSE SCREEN, URINE WITHOUT CONFIRMATION STAT 11/01/2020 7:57 PM CDT BASIC METABOLIC PANEL STAT 11/01/2020 7:57 PM CDT POCT HCG, URINE Routine 11/01/2020 7:55 PM CDT XR CHEST 1 VIEW ED 11/01/2020 7:50 PM CDT documented in this encounter Results * ECG 12 lead (11/01/2020 8:00 PM CDT) 11/01/2020 8:00 PM CDT Narrative [facility] - 03/29/2021 6:14 PM STRUCTURER Vent Rate: 74 bpm RR Interval: 803 msec [place] Interval: 134 msec QRS Duration: 86 msec QT Interval: 377 msec QTC Interval: 405 msec P-R-T [place]: 62 - 70 - 49 degrees SINUS RHYTHM NORMAL ECG Electronically Signed By: Munir Up, DO, FACC us Donna Das MD ECG ORDERABLES Edited Re sult - Final [facility] * eGFR (11/01/2020 7:57 PM CDT) eGFR 79 mL/min/1.7 3 m2 [facility] Comment: Interpretive Data Reference Interval Normal ?>/= 90 mL/min/1.73m2 Mildly decreased* ? 60 - 89 mL/min/1.73m2 Mildly to moderately decreased ?45 - 59 mL/min/1.73m2 Moderately to severely decreased ??30 - 44 mL/min/1.73m2 Severely decreased ?15 - 29 mL/min/1.73m2 Kidney Failure ?< 15 ??mL/min/1.73m2 *Relative to young adult level Estimated glomerular filtration rate is determined by the CKD-EPI equation recommended by the National Kidney Foundation (KDIGO 2012 Clinical Practice Guideline for the Evaluation and Management of Chronic Kidney Disease. Kidney Intnl Suppl Apr 2012;3:1). The CKD-EPI equation should not be used for patients with unstable renal function and has not been validated in children and those over 70. Current interpretive data was last reviewed 2020 Blood specimen (specimen) 11/01/2020 7:57 PM CDT 11/01/2020 8:00 PM CDT us Donna Das MD LAB BLOOD ORDERABLES Allie barnhart Result Performing Organization Address City/State/[facility] Co de Phone Number [address] Department [place] [address] * Differential, auto (11/01/2020 7:57 PM CDT) Neutrophil abs 4.2 1.7 - 6.5 K/cumm [facility] Imm gran abs 0.0 0.0 - 0.1 K/cumm [facility] Lymphocyte abs 3.1 0.8 - 3.3 K/cumm [facility] Monocyte abs 0.6 0.2 - 0.8 K/cumm [facility] Eosinophil abs 0.4 0.0 - 0.5 K/cumm [facility] Basophil abs 0.1 0.0 - 0.1 K/cumm [facility] Neutrophil pct 49.6 % [facility] Comment: Interpretive Data Percent cell count reference ranges are not reported, since discordance with absolute values may lead to misinterpretation of CBC data. Current Interpretive Data was last revised on 2017. Imm gran pct 0.2 % [facility] Comment: Interpretive Data Percent cell count reference ranges are not reported, since discordance with absolute values may lead to misinterpretation of CBC data. Current Interpretive Data was last revised on 2017. Lymphocyte pct 36.9 % [facility] Comment: Interpretive Data Percent cell count reference ranges are not reported, since discordance with absolute values may lead to misinterpretation of CBC data. Current Interpretive Data was last revised on 2017. Monocyte pct 7.5 % [facility] Comment: Interpretive Data Percent cell count reference ranges are not reported, since discordance with absolute values may lead to misinterpretation of CBC data. Current Interpretive Data was last revised on 2017. Eosinophil pct 5.0 % [facility] Comment: Interpretive Data Percent cell count reference ranges are not reported, since discordance with absolute values may lead to misinterpretation of CBC data. Current Interpretive Data was last revised on 2017. Basophil pct 0.8 % [facility] Comment: Interpretive Data Percent cell count reference ranges are not reported, since discordance with absolute values may lead to misinterpretation of CBC data. Current Interpretive Data was last revised on 2017. Blood specimen (specimen) 11/01/2020 7:57 PM CDT 11/01/2020 8:00 PM CDT us Donna Das MD LAB BLOOD ORDERABLES Allie barnhart Result [facility] [address] [facility] Department [place] [address] * Drugs of Abuse Screen, Urine without Confirmation (11/01/2020 7:57 PM CDT) Amphetamine, ur Not Detected CutOff 500ng/mL [facility] Comment: Interpretive Data - Amphetamines: ??Samples containing greater than 500 ng/mL d-methamphetamine ??or other cross-reacting amphetamine compounds are reported as positive. ??Amphetamine immunoassays are subject to significant false positive rates due to cross-reactivity of non-amphetamine drugs. Current Interpretive Data was last reviewed 2018. Barbiturates, ur Not Detected CutOff 200ng/mL [facility] Comment: Interpretive Data - Barbiturates: ??Samples containing greater than 200 ng/mL secobarbital or other cross-reacting barbiturate compounds are reported as positive. ??False positive and false negative results are possible. Current Interpretive Data was last reviewed 2018. Benzodiazepines, ur Not Detected CutOff 100ng/mL [facility] Comment: Interpretive Data - Benzodiazepines: ??Samples containing greater than 100 ng/mL nordiazepam or other cross-reacting compounds are reported as positive. ?? False positive and false negative results are possible. ?? Current Interpretive Data was last reviewed 2018. Cannabinoids, ur Not Detected CutOff 50 ng/mL [facility] Comment: Interpretive Data - Cannabinoids: ??Samples containing greater than 50 ng/mL delta-9 THC -COOH or other cross-reacting compounds are reported as positive. ??False positive and false negative results are possible. ?? Current Interpretive Data was last reviewed 2018. Cocaine, ur Not Detected CutOff 150ng/mL [facility] Comment: Interpretive Data - Cocaine: ??Samples containing greater than 150 ng/mL benzoylecgonine or other cross-reacting compounds are reported as positive. False positive and false negative results are possible. Current Interpretive Data was last reviewed 2018. Fentanyl, Ur Not Detected Cutoff 1 ng/mL [facility] Comment: Interpretive Data - Fentanyls: ??Samples containing greater than 1 ng/mL fentanyl or other cross-reacting fentanyl compounds are reported as detected. ??False positive and false negative results are possible. Current Interpretive Data was last reviewed 2018. Methadone, ur Not Detected CutOff 300ng/mL [facility] Comment: Interpretive Data - Methadone: ??Samples containing greater than 300 ng/mL d,l-methadone or other cross-reacting compounds are reported as positive. ??False positive and false negative results are possible. Current Interpretive Data was last reviewed 2018. Opiates, ur Not Detected CutOff 300ng/mL [facility] Comment: Interpretive Data - Opiates: ??Samples containing greater than 300 ng/mL morphine or other cross-reacting compounds are reported as positive. ??False positive and false negative results are possible. Current Interpretive Data was last reviewed 2018. Oxycodone, ur Not Detected CutOff 100ng/mL [facility] Comment: Interpretive Data - Oxycodone: ??Samples containing greater than 100 ng/mL oxycodone or other cross-reacting compounds are reported as positive. ??False positive and false negative results are possible. ?? Current Interpretive Data was last reviewed 2018. Phencyclidine, ur Not Detected CutOff 25 ng/mL [facility] Comment: Interpretive Data - Phencyclidine: ??Samples containing greater than 25 ng/mL phencyclidine or other cross-reacting compounds are reported as positive. ??False positive and false negative results are possible. ?? Current Interpretive Data was last reviewed 2018. Urine Creatinine 191 mg/dL [facility] Comment: Interpretive Data Urine Creatinine: < 10 mg/dL is extremely dilute = or > 10 but < 20 mg/dL is dilute = or > 20 mg/dL is normal Current Interpretive Data was last revised on 2017. Urine 11/01/2020 7:57 PM CDT 11/01/2020 8:00 PM CDT Narrative [facility] - 11/01/2020 8:17 PM CDT Drug of Abuse screening is performed by immunoassay for medical purposes only. ??This is not to be used for Pain Management purposes. us Donna Das MD LAB URINE ORDERABLES Allie barnhart Result [facility] [address] [facility] Department [place] [address] * Troponin T high-sensitivity series (baseline, 2hr, 4hr, 6hr) (11/01/2020 7:57 PM CDT) Trop T hs <6 <=14 ng/L [facility] Comment: Interpretive Data For further hscTnT resources including the diagnostic algorithm and an aid in interpretation, copy and paste this link: https://nrl.testcatalog.org/show/hsTrop Current Interpretive Data last revised 2020. Blood specimen (specimen) 11/01/2020 7:57 PM CDT 11/01/2020 8:00 PM CDT Donna Das MD LAB BLOOD ORDERABLES Allie l Result [facility] [address] [facility] Department [place] [address] * CBC with auto differential (11/01/2020 7:57 PM CDT) WBC 8.4 3.8 - 9.9 K/cumm [facility] Hgb 13.8 11.9 - 15.5 g/dL [facility] Hct 42.2 35.6 - 45.5 % [facility] Plt 301 150 - 400 K/cumm [facility] MPV 9.2 9.1 - 12.3 fL [facility] RBC 4.59 3.90 - 5.20 M/cumm [facility] MCV 91.9 81.3 - 96.4 fL [facility] MCH 30.1 27.1 - 33.3 pg [facility] MCHC 32.7 32.3 - 35.7 g/dL [facility] RDW CV 13.0 11.1 - 14.9 % [facility] RDW SD 43.3 35.7 - 48.1 fL [facility] NRBC abs 0.00 0.00 - 0.01 K/cumm [facility] Blood specimen (specimen) (Blood, Venous) 11/01/2020 7:57 PM CDT 11/01/2020 8:00 PM CDT Donna Das MD LAB BLOOD ORDERABLES Allie l Result [address] Department [place] [address] * Basic metabolic panel (11/01/2020 7:57 PM CDT) [facility] Sodium 137 135 - 145 mmol/L [facility] Potassium, pl 3.8 3.3 - 4.9 mmol/L [facility] Chloride 103 97 - 110 mmol/L [facility] CO2 28 22 - 32 mmol/L [facility] Anion gap 6 2 - 15 mmol/L [facility] BUN 9 8 - 25 mg/dL [facility] Creatinine 0.91 0.60 - 1.10 mg/dL [facility] Glucose 82 70 - 199 mg/dL [facility] Comment: Interpretive Data Fasting glucose >/= [...] interpretive data was last revised 2017. Calcium 9.1 8.5 - 10.3 mg/dL [facility] Blood specimen (specimen) 11/01/2020 7:57 PM CDT 11/01/2020 8:00 PM CDT us Donna Das MD LAB BLOOD ORDERABLES Allie l Result Performing Organization Address [facility]/ZIP Co de Phone Number [address] Department [place] [address] * POCT hCG, urine (11/01/2020 7:55 PM CDT) [facility] HCG, ur, POC Negative Lot Number [id number] QC Backgroud Clear Acceptable QC Control Line Acceptable Urine 11/01/2020 7:55 PM CDT us Donna Das MD POINT OF CARE TEST ORDERA BLES Final Result * XR Chest 1 Vw Portable (11/01/2020 7:50 PM CDT) Anatomical Region Laterality Modality Body, Chest N/A Computed Radiogr aphy 11/02/2020 7:44 AM CDT Impressions 11/02/2020 7:44 AM CDT No acute abnormalities Electronically signed by: Munir Carr M.D. Narrative 11/02/2020 7:44 AM CDT EXAMINATION: CHEST RADIOGRAPH PORTABLE, AP, 1 VIEW DATE: 11/01/2020 7:45 PM HISTORY: .chest pain COMPARISON: ??None. ?? FINDINGS: The lungs are ??clear. ??The heart, pulmonary vasculature, and mediastinum are ??normal limits. ??Bones and soft tissues are normal. Procedure Note Munir Carr MD - 11/02/2020 EXAMINATION: CHEST RADIOGRAPH PORTABLE, AP, 1 VIEW DATE: 11/01/2020 7:45 PM HISTORY: .chest pain COMPARISON: None. FINDINGS: The lungs are clear. The heart, pulmonary vasculature, and mediastinum are normal limits. Bones and soft tissues are normal. IMPRESSION: No acute abnormalities Electronically signed by: Munir Carr M.D. us Donna Das MD IMG XR PROCEDURES Final R esult documented in this encounter Visit Diagnoses Diagnosis Chest wall pain- Primary Painful respiration Palpitations documented in this encounter Administered Medications Inactive Administered Medications - up to 3 most recent administrations Medication Order MAR Action Action Date Dose Rate Site aspirin chewable tablet 324 mg 324 mg, oral, Once, On Sat11/01/20 at 1936, For 1 dose, Indications: Acute Coronary SyndromeIndications:Acute Coronary Syndrome Given 11/01/2020 9:01 PM CDT 324 mg ketorolac (TORADOL) injection 30 mg 30 mg, intravenous, Once, On Sat11/01/20 at 2040, For 1 dose, For Adult IV push, administer over 15 seconds, Indications: PainIndications:Pain Given 11/01/2020 9:01 PM CDT 30 mg lidocaine (LIDODERM) 5 % patch 1 patch 1 patch, transdermal, Administer over 12 Hours, Daily, First dose on Sat11/01/20 at 2040, Do not cover the holes on the top side of the patch., Apply to affected area: chest Medication Applied 11/01/2020 9:01 PM CDT 1 patch Chest documented in this encounter Active and Recently Administered Medications Times are shown in CDT. Scheduled Medication Order 10/30/2020 10/31/2020 11/01/2020 aspirin chewable tablet 324 mg (COMPLETED) 324 mg, oral, Once, On Sat11/01/20 at 1936, For 1 dose, Indications: Acute Coronary Syndrome 2100 (Given - Provid er: Zeenat Roberts RN) ketorolac (TORADOL) injection 30 mg (COMPLETED) 30 mg, intravenous, Once, On Sat11/01/20 at 2040, For 1 dose, For Adult IV push, administer over 15 seconds, Indications: Pain 2100 (Given - Provid er: Zeenat Roberts RN) lidocaine (LIDODERM) 5 % patch 1 patch 1 patch, transdermal, Administer over 12 Hours, Daily, First dose on Sat11/01/20 at 2040, Do not cover the holes on the top side of the patch., Apply to affected area: chest 2100 (Medication Sal lied - Provider: Zeenat Roberts RN)2142 (Due: Medication Removed - Provider: Automatic Discharge Provider - Comment: Time automatically adjusted from order being discontinued) documented in this encounter Orders Nursing Count Last Ordered Date First Orde red Date CARDIO RESPIRATORY MONITORING 11/01/2020 NURSING COMMUNICATION 1 11/01/2020 IV Count Last Ordered Date First Orde red Date SALINE LOCK IV 1 11/01/2020 documented in this encounter Care Teams [employer] Panel Installer Relationship Specialty Start Date End Date Clinic, [address] [place] [address] PCP - General 11/01/20 11/28/22 documented as of this encounter
--- OUTSIDE RECORDS SUMMARY | 2024-04-26 21:25 | XMS_ITS | Encounter Summary ---
Author Organization [facility] Healthcare Address [address] [place] [address] Care Team Providers Care Stage Set Up Worker Name Role Phone Clinic, Medicine X. Primary Care Provider [phone] Reason for Visit * Reason Comments Abdominal Pain Vomiting Encounter Details Date Type Department Care Team (Late st Contact Info) Description 09/15/2022 12:27 AM CDT - 09/15/2022 9:17 AM CDT Emergency [facility] Emergency Department [address] [place] [address] Valerio Terrazas MD [address] [place] [address] Dawit Philip MD [address] [place] [address] Cervical mass (Primary Dx); Vaginal discharge Discharge Disposition: Discharge to half-way facility Social History Tobacco Use Types Packs/Day Years Used Date Smoking Tobacco: Every Day Cigarettes Smokeless Tobacco: Never Alcohol Use Standard Drinks/Week Comments Not Currently 0 (1 standard drink = 0.6 oz pur e alcohol) Comments No Sex and Gender Information Value Date Recorded Sex Assigned at Not on file 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 Gender Identity Female 10/24/2023 9:52 AM CDT Sexual Orientation Straight 10/24/2023 9: 52 AM CDT documented as of this encounter Last Filed Vital Signs Vital Sign Reading Time Taken Comments Blood Pressure 112/74 09/15/2022 8:30 AM CDT Pulse 62 09/15/2022 8:30 AM CDT Temperature 36.6 ??C (97.8 ??F) 09/14/2022 10:58 PM C DT Respiratory Rate 16 09/15/2022 7:51 AM CDT Oxygen Saturation 100% 09/15/2022 8:30 AM CDT Inhaled Oxygen Concentration - - Weight 70.8 kg (156 lb) 09/14/2022 10:58 PM CDT Height 170.2 cm (5' 7 ) 09/14/2022 10:58 PM CDT Body Mass Index 24.43 09/14/2022 10:58 PM CDT documented in this encounter Discharge Instructions * Discharge Instructions* Dawit Philip MD - 09/15/2022 8:29 AM CDT Thank you for the opportunity to care for you today! You were evaluated for abdominal pain and concerns for and diagnosed with a cervical massthat may be a fibroid as well as vaginal discharge. You had blood/urine tests that were unremarkable. You should follow-up with your primary doctor in the next week as needed. You should also follow-upwith a quantitative associate for additional evaluation of your cervix. Return to the ED for fever, uncontrolled pain/nausea, or other concerns. You should take the prescribed antibiotics unless directed otherwise (empiric treatment for PID). You may take acetaminophen and/or ibuprofen/naproxen as needed for pain. You may take the prescribed ondansetron as needed for nausea We sincerely hope you feel better soon! documented in this encounter Medications at Time of Discharge Wellbutrin XL 300 mg 24 hr tabletIndications:An xiety with Depression Take 1 tablet (300 mg total) by mouth nightly Half tablet 05/30/2021 doxycycline (VIBRAMYCIN) 100 mg capsule Take 1 tablet/capsule (100 mg total) by mouth 2 (two) times a day for 14 days 28 tablet/capsul e 09/15/2022 metroNIDAZOLE (FLAGYL) 500 mg tablet Take 1 tablet (500 mg total) by mouth 2 (two) times a day for 14 days 28 tablet 09/15/2022 3 calcium carbonate (TUMS) 500 mg (200 mg elemental calcium) chewable tablet Take 1 tablet/chew tab (500 mg total) by mouth as needed 08/03/2010 4 docusate sodium (COLACE) 100 mg capsule Take 1 capsule (100 mg total) by mouth 2 (two) times a day as needed 09/14/2010 4 lidocaine (LIDODERM) 5 % Place 1 patch on the skin daily Remove & discard patch within 12 hours or as directed by MD. 30 patch 11/01/2020 4 naproxen (NAPROSYN) 500 [...] by mouth daily as needed 01/04/2011 3 documented as of this encounter Ordered Prescriptions Prescription Sig Dispense Quantity Refills Last Filled Start Date End Date metroNIDAZOLE (FLAGYL) 500 mg tablet Take 1 tablet (500 mg total) by mouth 2 (two) times a day for 14 days 28 tablet 09/15/2022 3 ondansetron ODT (ZOFRAN-ODT) 8 mg disintegrating tablet Take 1 tablet (8 mg total) by mouth every 8 (eight) hours as needed for nausea or vomiting 30 tablet 09/15/2022 3 doxycycline (VIBRAMYCIN) 100 mg capsule Take 1 tablet/capsule (100 mg total) by mouth 2 (two) times a day for 14 days 28 tablet/capsul e 09/15/2022 3 documented in this encounter Discharge Disposition Disposition Code Departure Means Destination Comment s Discharge to half-way facility DELMAR documented in this encounter ED Notes * Valerio Terrazas MD - 09/15/2022 5:50 AM CDT HPI Chief Complaint Patient presents with Abdominal Pain Vomiting This is a 42-year-old female, who has come to the emergency room complaining of abdominal pain. Thepatient states that 2 days she noted that she passing tissue through the vagina, that seems to havevessels. She was wondering if she may be . She states she is been taking anti consumptive. The patient has been complaining of mid abdominal pain. Crampy like. She states in the past she has b ecome with negative levels of hCG. History provided by: Patient Patient History: Patient Active Problem List Diagnosis Date Noted Carpal tunnel syndrome on left 09/14/2010 Seizure disorder ([facility]) ([facility]) 09/14/2010 Asthma 07/06/2010 Encounter for health-related screening 07/06/2010 SAB (spontaneous ) 07/06/2010 Status post umbilical hernia repair, follow-up exam 07/06/2010 Tobacco use disorder complicating , childbirth, or the puerperium 07/06/2010 Anxiety 06/22/2010 GBS (group B streptococcus) UTI complicating 06/22/2010 Hypothyroid 06/22/2010 History of delivery, currently 06/22/2010 Lupus (systemic lupus erythematosus) ([facility]) ([facility]) 06/22/2010 Marijuana abuse 06/22/2010 S/P cone biopsy of cervix 06/22/2010 Severe pre-eclampsia, antepartum 06/22/2010 Supervision of high-risk 06/22/2010 Past Medical History: Diagnosis Date Cellulitis Cellulitis - (Added by TW Conv) No past surgical history on file. No family history on file. Social History Tobacco Use Smoking status: Every Day Packs/day: 0.50 Types: Cigarettes Smokeless tobacco: Never Substance and Sexual Activity Alcohol use: Not Currently Drug use: Never Sexual activity: Not on file Social History Social History Narrative Not on file Review of Systems Review of Systems All other systems reviewed and are negative. Physical Exam ED Triage Vitals [09/14/22 2258] Temp Pulse Resp BP SpO2 36.6 ??C (97.8 ??F) 74 18 120/80 100 % Temp src Heart Rate Source Patient Position BP Location FiO2 (%) Temporal -- -- -- -- Height Height Method Weight Weight Method 1.702 m (5' 7 ) Stated 70.8 kg (156 lb) Stated Physical Exam Vitals and nursing note reviewed. Constitutional: Appearance: She is well-developed. HENT: Head: Normocephalic. Eyes: Extraocular Movements: Extraocular movements intact. Cardiovascular: Rate and Rhythm: Normal rate. Heart sounds: Normal heart sounds. Pulmonary: Effort: Pulmonary effort is normal. Abdominal: General: Abdomen is flat. Bowel sounds are normal. Palpations: Abdomen is soft. Tenderness: There is abdominal tenderness in the epigastric area, periumbilical area and suprapubicarea. There is no right CVA tenderness or left CVA tenderness. Skin: General: Skin is warm. Capillary Refill: Capillary refill takes less than 2 seconds. Neurological: General: No focal deficit present. Mental Status: She is alert. MDM Medical Decision Making Amount and/or Complexity of Data Reviewed Labs: ordered. Decision-making details documented in ED Course. Radiology: ordered. Decision-making details documented in ED Course. Risk Prescription drug management. ED Course as of 09/26/222008 Time: 09/15 7870 Comment: IDawit MD, assumed care of the patient at change of shift. Briefly,patient is a 42 y.o. female with a history of unspecified psychiatric condition requiring usp facility who presented with abdominal pain and concerns for passing tissue. ED work-up so far notable for negative test but uterine mass. Still pending CT. By: Dawit Philip MD Time: 09/15 7575 Comment: Pelvic exam completed with Marbella HOLT. Does have cervical lesion at approximately 10 to 11 o'clock position. Mild CMT/left adnexal tenderness. Does report increased discharge. Swabs sent but will treat empirically. Does report a history of cervical cancer at the age of 18 but also seem somewhat confused about what a pelvic exam/Pap smear is. By: Dawit Philip MD Time: 09/15 0757 Value: CT Abdomen Pelvis W Contrast Comment: Likely fibroid By: Dawit Philip MD Time: 09/15 825 Value: Trichomonas Ag: Negative Comment: (Reviewed) By: Dawit Philip MD Time: 09/15 825 Comment: Remains well appearing. Will discharge with doxycycline/metronidazole and PCP/gynecology follow-up. Return precautions given. By: Dawit Philip MD Final diagnoses: Cervical mass Vaginal discharge Valerio Terrazas MD 09/15/2252 Valerio Terrazas MD 09/26/222009 * Becky Abdul RN - 09/14/2022 10:55 PM CDT Pt comes from [facility] via [facility]. Pt c/o abd pain and vomiting for the past week. Pt has hada negative test. Pt was given zofran 8mg en route and she states the nausea is better. documented in this encounter Miscellaneous Notes * ED Re-evaluation Note - Dawit Philip MD - 09/15/2022 8:30 AM CDT ED Re-evaluation ED Course as of 09/15/22 0830 Time: 09/15 0688 Comment: I, Dawit Philip MD, assumed care of the patient at change of shift. Briefly,patient is a 42 y.o. female with a history of unspecified psychiatric condition requiring usp facility who presented with abdominal pain and concerns for passing tissue. ED work-up so far notable for negative test but uterine mass. Still pending CT. By: Dawit Phiilp MD Time: 09/15 3578 Comment: Pelvic exam completed with Marbella HOLT. Does have cervical lesion at approximately 10 to 11 o'clock position. Mild CMT/left adnexal tenderness. Does report increased discharge. Swabs sent but will treat empirically. Does report a history of cervical cancer at the age of 18 but also seem somewhat confused about what a pelvic exam/Pap smear is. By: Dawit Philip MD Time: 09/15 7091 Value: CT Abdomen Pelvis W Contrast Comment: Likely fibroid By: Dawit Philip MD Time: 09/15 825 Value: Trichomonas Ag: Negative Comment: (Reviewed) By: Dawit Philip MD Time: 09/15 825 Comment: Remains well appearing. Will discharge with doxycycline/metronidazole and PCP/gynecology follow-up. Return precautions given. By: Dawit Philip MD Zozula, Alexander Benjamin, MD 09/15/22829 documented in this encounter Plan of Treatment Not on file documented as of this encounter Procedures Procedure Name Priority Date/Time Associated Diagnosis Comments N. GONORRHOEAE/C. TRACHOMATIS AMPLIFICATION STAT 09/15/2022 8:02 AM CDT TRICHOMONAS ANTIGEN STAT 09/15/2022 8 :[address] ABDOMEN PELVIS W CONTRAST ED 09/15/2022 7:31 AM CDT US PELVIS W ENDOVAGINAL ED 09/15/2022 5:20 AM CDT URINALYSIS AND REFLEX TO MICROSCOPIC AND CULTURE STAT 09/15/2022 12:56 AM CDT URINALYSIS, MICROSCOPIC ONLY STAT 09/15/2022 12:56 AM CDT EGFR STAT 09/14/2022 11:07 PM CDT DIFFERENTIAL AUTO STAT 09/14/2022 11: 07 PM CDT CBC WITH AUTO DIFFERENTIAL STAT 09/14/2022 11:07 PM CDT HCG, BLOOD, QUANTITATIVE STAT 09/14/2022 11:07 PM CDT LIPASE STAT 09/14/2022 11:07 PM CDT COMPREHENSIVE METABOLIC PANEL STAT 09/14/2022 11:07 PM CDT documented in this encounter Results * Trichomonas antigen Vaginal (09/15/2022 8:02 AM CDT) Trichomonas Ag Negative Negative BELEN VALENZUELA ([place]) Vaginal 09/15/2022 8:02 AM CDT 09/15/2022 8:04 AM CDT Dawit Philip MD LAB MICROBIOLOGY - GENERAL ORDERABLES Final Result Performing Organization Address [facility] Co de Phone Number TEZ VALENZUELA ([place]) 1 [facility] Department of Laboratories [place] [id number] * N. gonorrhoeae/C. trachomatis Amplification Endocervical (09/15/2022 8:02 AM CDT) C. trachomatis Not detected Not detected TEZ VALENZUELA ([place]) Comment:Testing performed by : [facility], [address] [place] [address]., [phone] N. gonorrhoeae Not detected Not detected TEZ VALENZUELA ([place]) Comment: Testing performed by the [facility]. This assay detects Chlamydia trachomatis and Neisseria gonorrhoeae by nucleic acid amplification testing (NAAT). This test is approved by the [facility] Food and Drug Administration and the performance characteristics have been verified by the laboratory. The performance characteristics of this test have not been evaluated in women or individuals less than 16 years of age. Testing performed by: [facility], [address] [place] [address]., [id number] Endocervical (None) 09/16/19 8:02 AM CDT 09/18/2022 10:31 AM CDT Dawit Philip MD LAB MICROBIOLOGY - GENERAL ORDERABLES Final Result TEZ VALENZUELA ([place]) 1 [facility] Department [place] [address] * CT Abdomen Pelvis W Contrast (09/15/2022 7:31 AM CDT) Anatomical Region Laterality Modality Body N/A Computed Tomogra phy 09/15/2022 7:36 AM CDT Narrative 09/15/2022 7:43 AM CDT EXAM DESCRIPTION: ?? CT ABDOMEN PELVIS W CONTRAST REASON FOR STUDY: ?? Abdominal infection suspected ?? Nausea for several months, pain, increased in the last month, history of hernia repair ? TECHNIQUE: CT scan of the abdomen and pelvis performed with intravenous and ?? without ??oral contrast using helical scanning technique with dynamic intravenous contrast injection. Reconstructed coronal and sagittal MPR images reviewed. All images stored on PACS. Automated exposure control was used as a dose optimization technique for this examination. CONTRAST TYPE/DOSE: ?? 100mL of IOVERSOL 350 MG IODINE/ML INTRAVENOUS SOLUTION ?? injected via ?? intravenous COMPARISON: ?? Pelvic ultrasound 09/15/2022 REFERENCE: Per ACR white paper recommendations, unless otherwise specified no follow-up imaging is recommended for incidental renal and adrenal lesions per consensus recommendations based on imaging criteria. Further lab evaluation could be pursued based on clinical findings. FINDINGS: LOWER CHEST: ?? No focal consolidation, mass or nodule in the visualized lung bases. ??No pleural or pericardial effusion. LIVER: ?? Normal size and contour. ??No significant steatosis. ??Patent and normally enhancing portal venous system. ??No focal liver lesion. GALLBLADDER: ?? Normal. BILE DUCTS: ?? No intrahepatic or extrahepatic biliary dilation. SPLEEN: ?? Normal size. ??No focal lesions. PANCREAS: ?? Normal parenchymal bulk, morphology, and enhancement pattern. No duct dilation. No inflammatory change. ?? ADRENALS: ?? Normal. KIDNEYS/URINARY TRACT: ?? Symmetric and normal renal enhancement pattern. ??No focal lesions. ??No hydronephrosis or hydroureter. ??No stones are seen. ? Urinary bladder is unremarkable. GI: ?? Stomach appears normal. ??Small bowel is not obstructed. ??Normal appendix is seen inferior and anterior to the cecum. ??There is a fairly large amount of retained formed stool throughout most of the colon, with relative sparing of the distal rectum. ??No diverticulosis or other colonic abnormality. PERITONEUM: ?? No ascites or free air. RETROPERITONEUM: ?? No mass or adenopathy. REPRODUCTIVE: ?? There is a round hyperenhancing lesion within the posterior myometrium of the uterine body/fundus, which correlates with the sonographic finding and most likely represents a fibroid. ??Normal CT appearance of the ovaries. VASCULATURE: ?? No abdominal aortic aneurysm. ?? Incidental note of retroaortic left renal vein. MUSCULOSKELETAL: ?? No acute fracture. ??No suspicious osseous lesion. OTHER: ?? No other abnormality. IMPRESSION: No acute intra-abdominal process identified. Large amount of retained stool throughout the colon, with relative sparing of the distal rectum. Correlate for constipation. Small uterine mass, probably an intramural fibroid. ??Please see also the preceding pelvic ultrasound. THIS IS AN ELECTRONICALLY VERIFIED FINAL REPORT 09/15/2022 7:43 AM - Electronically signed by ??Theo Connolly M.D. BC: DAVE D: ??09/15/2022 7:43 AM T: ??09/15/2022 7:43 AM Report ID: [id number] Reading Location: ??[id number] Procedure Note Theo Connolly MD - 09/15/2022 EXAM DESCRIPTION: CT ABDOMEN PELVIS W CONTRAST REASON FOR STUDY: Abdominal infection suspected Nausea for several months, pain, increased in the last month, history of hernia repair TECHNIQUE: CT scan of the abdomen and pelvis performed with intravenousand without oral contrast using helical scanning technique with dynamic intravenous contrast injection. Reconstructed coronal and sagittal MPRimages reviewed. All images stored on PACS. Automated exposure control was used as a dose optimization technique forthis examination. CONTRAST TYPE/DOSE: 100mL of IOVERSOL 350 MG IODINE/ML INTRAVENOUSSOLUTION injected via intravenous COMPARISON: Pelvic ultrasound 09/15/2022 REFERENCE: Per ACR white paper recommendations, unless otherwise specifiedno follow-up imaging is recommended for incidental renal and adrenal lesionsper consensus recommendations based on imaging criteria. Further labevaluation could be pursued based on clinical findings. FINDINGS: LOWER CHEST: No focal consolidation, mass or nodule in the visualizedlung bases. No pleural or pericardial effusion. LIVER: Normal size and contour. No significant steatosis. Patent and normally enhancing portal venous system. No focal liver lesion. GALLBLADDER: Normal. BILE DUCTS: No intrahepatic or extrahepatic biliary dilation. SPLEEN: Normal size. No focal lesions. PANCREAS: Normal parenchymal bulk, morphology, and enhancement pattern.No duct dilation. No inflammatory change. ADRENALS: Normal. KIDNEYS/URINARY TRACT: Symmetric and normal renal enhancement pattern.No focal lesions. No hydronephrosis or hydroureter. No stones are seen. Urinary bladder is unremarkable. GI: Stomach appears normal. Small bowel is not obstructed. Normalappendix is seen inferior and anterior to the cecum. There is a fairly largeamount of retained formed stool throughout most of the colon, with relative sparingof the distal rectum. No diverticulosis or other colonic abnormality. PERITONEUM: No ascites or free air. RETROPERITONEUM: No mass or adenopathy. REPRODUCTIVE: There is a round hyperenhancing lesion within theposterior myometrium of the uterine body/fundus, which correlates with thesonographic finding and most likely represents a fibroid. Normal CT appearance of the ovaries. VASCULATURE: No abdominal aortic aneurysm. Incidental note ofretroaortic left renal vein. MUSCULOSKELETAL: No acute fracture. No suspicious osseous lesion. OTHER: No other abnormality. IMPRESSION: No acute intra-abdominal process identified. Large amount of retained stool throughout the colon, with relativesparing of the distal rectum. Correlate for constipation. Small uterine mass, probably an intramural fibroid. Please see also the preceding pelvic ultrasound. THIS IS AN ELECTRONICALLY VERIFIED FINAL REPORT 09/15/2022 7:43 AM - Electronically signed by Theo Connolly M.D. BC: DAVE Report ID: [id number] Reading Location: [id number] Valerio Terrazas MD IMG CT PROCEDURES Final Resu lt * US Pelvis W Endovaginal (09/15/2022 5:20 AM CDT) Anatomical Region Laterality Modality Pelvis N/A Ultrasound 09/15/2022 5:32 AM CDT Narrative 09/15/2022 5:40 AM CDT EXAM DESCRIPTION: ?? US PELVIS W ENDOVAGINAL REASON FOR STUDY: ?? ectopic ?? TECHNIQUE: Grayscale and color flow ultrasound of the pelvic contents was performed with ??transabdominal and transvaginal ??transducer. ?? COMPARISON: ?? None FINDINGS: Overlying bowel gas limits interpretation and evaluation of this examination. UTERUS: ?? The uterus is heterogeneous. ?? The uterus measures ??6.6 x 4.8 x 3.8 ?? cm. ??There is a 1.7 x 1.9 x 1.3 cm uterine mass with peripheral flow posterior to the endometrial canal with mass effect displacing the endometrial canal anteriorly. ??Mass exhibits increased through transmission. ENDOMETRIUM: The endometrium measures ??0.3 cm ??in thickness. RIGHT OVARY: The right ovary measures ??2.6 x 2.2 x 0.9 ??cm. ??There is documentation of color Doppler flow in the right ovary. The right ovary appears unremarkable. LEFT OVARY: Obscured by overlying bowel gas. PELVIC FLUID: ?? There is no evidence of free fluid in the pelvis. OTHER: ?? No other significant findings. IMPRESSION: No live intrauterine . ??Recommend clinical correlation with beta HCG levels. ?? 1.7 x 1.9 x 1.3 cm uterine mass posterior to the endometrial canal with mass effect displacing the endometrial canal anteriorly. Mass exhibits increased through transmission. Differential diagnostic considerations include, but not limited to submucosal fibroid or endometrial carcinoma. Recommend INFORMATION SYSTEMS TECHNICIAN consultation and pelvic MRI with intravenous contrast for further evaluation and management. Normal sonographic evaluation of the right ovary. Nonvisualization of the left ovary secondary to overlying bowel gas. No free fluid in the pelvic cul-de-sac. THIS IS AN ELECTRONICALLY VERIFIED FINAL REPORT 09/15/2022 5:40 AM - Electronically signed by ??Jose Juan Hannon M.D. BB: ZULEIKA D: ??09/15/2022 5:40 AM T: ??09/15/2022 5:40 AM Report ID: [id number] Reading Location: ??[id number] Procedure Note Jose Juan Hannon MD PhD - 09/15/2022 EXAM DESCRIPTION: US PELVIS W ENDOVAGINAL REASON FOR STUDY: ectopic TECHNIQUE: Grayscale and color flow ultrasound of the pelvic contents was performed with transabdominal and transvaginal transducer. COMPARISON: None FINDINGS: Overlying bowel gas limits interpretation and evaluation of thisexamination. UTERUS: The uterus is heterogeneous. The uterus measures 6.6 x 4.8 x3.8 cm. There is a 1.7 x 1.9 x 1.3 cm uterine mass with peripheral flowposterior to the endometrial canal with mass effect displacing the endometrial canal anteriorly. Mass exhibits increased through transmission. ENDOMETRIUM: The endometrium measures 0.3 cm in thickness. RIGHT OVARY: The right ovary measures 2.6 x 2.2 x 0.9 cm. There is documentation of color Doppler flow in the right ovary. The right ovary appears unremarkable. LEFT OVARY: Obscured by overlying bowel gas. PELVIC FLUID: There is no evidence of free fluid in the pelvis. OTHER: No other significant findings. IMPRESSION: No live intrauterine . Recommend clinical correlation with betaHCG levels. 1.7 x 1.9 x 1.3 cm uterine mass posterior to the endometrial canal withmass effect displacing the endometrial canal anteriorly. Mass exhibitsincreased through transmission. Differential diagnostic considerations include, butnot limited to submucosal fibroid or endometrial carcinoma. Recommend INFORMATION SYSTEMS TECHNICIAN consultation and pelvic MRI with intravenous contrast for furtherevaluation and management. Normal sonographic evaluation of the right ovary. Nonvisualization of the left ovary secondary to overlying bowel gas. No free fluid in the pelvic cul-de-sac. THIS IS AN ELECTRONICALLY VERIFIED FINAL REPORT 09/15/2022 5:40 AM - Electronically signed by Jose Juan Hannon M.D. BB: ZULEIKA Report ID: [id number] Reading Location: [place] [address] us Valerio Terrazas [place] [facility] [place] PROCEDURES Final Resu lt * (ABNORMAL) Urinalysis, microscopic only (09/15/2022 12:56 AM CDT) WBC, ur 6-10(A) 0 - 5 /HPF [facility] ([place]) RBC, ur 0-2 0 - 2 /HPF [facility] ([place]) Epithelial cells, squamous, ur 1-5 0 - 5 /HPF [facility] ([place]) Bacteria, ur Trace(A) [facility] ([place]) Mucous, ur Present(A) [facility] ([place]) Culture Reflex Comment Reflex conditions for urine culture (WBC >10) not met. [facility] ([place]) Urine 09/15/2022 12:5 6 AM CDT 09/15/2022 12:59 AM CDT Valerio Terrazas MD LAB URINE ORDERABLES Final R esult [facility] ([place]) 1 [facility] Department [place] [address] * (ABNORMAL) Urinalysis reflex to microscopic and culture Urine (09/15/2022 12:56 AM CDT) Color, ur Yellow Yellow [facility] ([place]) Clarity, ur Clear Clear [facility] ([place]) Specific gravity, ur 1.014 1.003 - 1.030 [facility] ([place]) pH, urine 6.5 [facility] ([place]) Protein, ur ql Negative Negative [facility] ([place]) Glucose, ur ql Negative Negative [facility] ([place]) Ketones, ur Negative Negative [facility] ([place]) Bilirubin, ur Negative Negative [facility] ([place]) Blood, ur Negative Negative [facility] ([place]) Urobilinogen, ur <2.0 <2.0 mg/dL [facility] ([place]) Nitrite, ur Negative Negative [facility] ([place]) Leukocyte esterase, ur 1+(A) Negative [facility] ([place]) UA reflex comment Reflex to microscopic UA will be performed. [facility] ([place]) Urine 09/15/2022 12:5 6 AM CDT 09/15/2022 12:59 AM CDT Narrative [facility] ([place]) - 09/15/2022 1:04 AM CDT ?? Urine pH is affected by diet, medications, systemic acid-base disturbances, and renal tubular function. ??pH may affect urinary stone formation. ??For example, urine pH below 6.0 may help reduce the tendency for calcium phosphate stones and pH greater than 6.0 may reduce the tendency for uric acid stone formation. Source: [facility] [place]. Last revised 05-02-2017 Valerio Terrazas MD LAB MICROBIOLOGY - GENERAL O RDERABLES Final Result TEZ VALENZUELA ([place]) 1 [facility] Department [place] [address] * eGFR (09/14/2022 11:07 PM CDT) eGFR 71 mL/min/1. 73 m2 TE[facility] NICOLAS ([place]) Comment: Interpretive Data Reference Interval Normal ?>/= [...] interpretive data was last reviewed 2021. Blood 09/14/2022 11:0 7 PM CDT 09/14/2022 11:14 PM CDT Valerio Terrazas MD LAB BLOOD ORDERABLES Final R esult TE[facility] VALENZUEL[facility] ([place]) 1 [facility] Department [place] [address] * (ABNORMAL) Differential, auto (09/14/2022 11:07 PM CDT) Neutrophil abs 2.7 1.7 - 6.5 K/cumm [facility] ([place]) Imm gran abs 0.0 0.0 - 0.1 K/cumm [facility] ([place]) Lymphocyte abs 3.4(H) 0.8 - 3.3 K/cumm [facility] ([place]) Monocyte abs 0.5 0.2 - 0.8 K/cumm [facility] ([place]) Eosinophil abs 0.4 0.0 - 0.5 K/cumm [facility] ([place]) Basophil abs 0.1 0.0 - 0.1 K/cumm [facility] ([place]) Neutrophil pct 38.2 % [facility] ([place]) Comment: Interpretive Data Percent cell count reference ranges are not reported, since discordance with absolute values may lead to misinterpretation of CBC data. Current Interpretive Data was last revised on 2017. Imm gran pct 0.3 % [facility] ([place]) Comment: Interpretive Data Percent cell count reference ranges are not reported, since discordance with absolute values may lead to misinterpretation of CBC data. Current Interpretive Data was last revised on 2017. Lymphocyte pct 47.9 % [facility] ([place]) Comment: Interpretive Data Percent cell count reference ranges are not reported, since discordance with absolute values may lead to misinterpretation of CBC data. Current Interpretive Data was last revised on 2017. Monocyte pct 7.7 % [facility] ([place]) Comment: Interpretive Data Percent cell count reference ranges are not reported, since discordance with absolute values may lead to misinterpretation of CBC data. Current Interpretive Data was last revised on 2017. Eosinophil pct 5.0 % [facility] ([place]) Comment: Interpretive Data Percent cell count reference ranges are not reported, since discordance with absolute values may lead to misinterpretation of CBC data. Current Interpretive Data was last revised on 2017. Basophil pct 0.9 % [facility] VALEN[facility]UEL[facility] ([place]) Comment: Interpretive Data Percent cell count reference ranges are not reported, since discordance with absolute values may lead to misinterpretation of CBC data. Current Interpretive Data was last revised on 2017. Blood 09/14/2022 11:0 7 PM CDT 09/14/2022 11:14 PM CDT Valerio Terrazas MD LAB BLOOD ORDERABLES Final R esult TEZ VALENZUELA ([place]) 1 [facility] Department [place] [address] * hCG, blood, quantitative (09/14/2022 11:07 PM CDT) hCG, quant <5.0 0.0 - 5.0 IUnits/L [facility] VAL[facility] ([place]) Comment: Interpretive Data Non- Female premenopausal: < or = 5.0 IUnits/L Men: < 5.0 IUnits/L Weeks of Gestation ? Reference Interval ?? 3 to 6 ? 5.8-31,795 IUnits/L ?? 7 to 10 ? 3,697-186,977 IUnits/L ??12 to 15 ?27,832- 70,791 IUnits/L ??16 to 18 ? 9,040- 58,179 IUnits/L The Al[employer] hCG Beta Quant assay procedure was used. Results from different manufacturers or methods may not be comparable. Serial testing should be performed using the same method. Current Interpretive Data was last revised on 2021. Blood 09/14/2022 11:0 7 PM CDT 09/14/2022 11:14 PM CDT Valerio Terrazas MD LAB BLOOD ORDERABLES Final R esult TEZ VALENZUELA ([place]) 1 [facility] Department [place] [address] * Lipase (09/14/2022 11:07 PM CDT) Lipase 90 10 - 99 Units/L [facility] ([place]) Blood (Blood, Venous) 09/14/2022 11:07 PM CDT 09/14/2022 11:14 PM CDT Valerio Terrazas MD LAB BLOOD ORDERABLES Final R esult Performing Organization Address City/[facility]/ZIP Co de Phone Number TEZ VALENZUELA ([place]) 1 [facility] Department [place] [address] * (ABNORMAL) Comprehensive metabolic panel (09/14/2022 11:07 PM CDT) Pathologist [facility] Sodium 136 135 - 145 mmol/L [facility] ([place]) Potassium, pl 3.6 3.3 - 4.9 mmol/L [facility] ([place]) Chloride 102 97 - 110 mmol/L [facility] ([place]) CO2 22 22 - 32 mmol/L [facility] ([place]) Anion gap 13 2 - 15 mmol/L [facility] ([place]) BUN 8 8 - 25 mg/dL [facility] ([place]) Creatinine 1.02 0.60 - 1.10 mg/dL [facility] ([place]) Glucose 113 70 - 199 mg/dL [facility] ([place]) Comment: Interpretive Data Fasting glucose >/= 126 [...] interpretive data was last revised 2022. Calcium 8.8 8.5 - 10.3 mg/dL [facility] ([place]) Bilirubin, total <0.2 0.1 - 1.2 mg/dL [facility] ([place]) Protein, pl 6.2(L) 6.5 - 8.5 g/dL [facility] ([place]) Albumin 4.0 3.5 - 5.0 g/dL [facility] ([place]) Alk phos 33(L) 40 - 130 Units/L [facility] ([place]) ALT 11 7 - 45 Units/L [facility] ([place]) AST 15 10 - 45 Units/L [facility] ([place]) Blood 09/14/2022 11:0 7 PM CDT 09/14/2022 11:14 PM CDT us Vaelrio Terrazas MD LAB BLOOD ORDERABLES Final R esult [facility] ([place]) 1 [facility] Department [place] [address] * (ABNORMAL) CBC with auto differential (09/14/2022 11:07 PM CDT) WBC 7.0 3.8 - 9.9 K/cumm [facility] ([place]) Hgb 12.4 11.9 - 15.5 g/dL [facility] ([place]) Hct 35.9 35.6 - 45.5 % [facility] ([place]) Plt 271 150 - 400 K/cumm [facility] ([place]) MPV 9.0(L) 9.1 - 12.3 fL [facility] ([place]) RBC 4.15 3.90 - 5.20 M/cumm [facility] ([place]) MCV 86.5 81.3 - 96.4 fL [facility] ([place]) MCH 29.9 27.1 - 33.3 pg [facility] ([place]) MCHC 34.5 32.3 - 35.7 g/dL [facility] ([place]) RDW CV 12.7 11.1 - 14.9 % [facility] ([place]) RDW SD 40.3 35.7 - 48.1 fL [facility] ([place]) NRBC abs 0.00 0.00 - 0.01 K/cumm [facility] ([place]) Blood (Blood, Venous) 09/14/2022 11:07 PM CDT 09/14/2022 11:14 PM CDT Valerio Terrazas MD LAB BLOOD ORDERABLES Final R esult [facility] ([place]) 1 [facility] Department [place] [address] documented in this encounter Visit Diagnoses Diagnosis Cervical mass- Primary Other specified noninflammatory disorder of cervix Vaginal discharge Leukorrhea, not specified as infective documented in this encounter Administered Medications Inactive Administered Medications - up to 3 most recent administrations Medication Order MAR Action Action Date Dose Rate Site cefTRIAXone (ROCEPHIN) 500 mg in sterile water 5 mL (100 mg/mL) IV syringe 500 mg, intravenous, at 300 mL/hr, Administer over 1 Minutes, Once, On 09/15/22 at 0759, For 1 dose, Indications: Sexually Transmitted InfectionIndications:Sexua lly Transmitted Infection Given 09/15/2022 8:37 AM CDT 500 mg 300 mL/hr fentaNYL (SUBLIMAZE) preservative free injection 50 mcg 50 mcg, intravenous, Once, On 09/15/22 at 0551, For 1 dose Given 09/15/2022 6:35 AM CDT 50 mcg ioversoL (OPTIRAY 350) injection 100 mL 100 mL, intravenous, Once in imaging, contrast, Starting on 09/15/22 at 0721, For 1 dose Contrast Given 09/15/2022 7:21 AM CDT 100 mL naproxen (NAPROSYN) tablet 500 mg 500 mg, oral, Once, On 09/15/22 at 0816, For 1 dose Given 09/15/2022 8:44 AM CDT 500 mg ondansetron (ZOFRAN) injection 4 mg 4 mg, intravenous, Administer over 2 Minutes, Every 30 min PRN, nausea, vomiting, Starting on 09/15/22 at 0734, For 2 doses, Indications: Nausea, VomitingIndications:Nausea ,Vomiting Given 09/15/2022 7:57 AM CDT 4 mg sodium chloride 0.9% bolus 1,000 mL 1,000 mL, intravenous, Once, On 09/15/22 at 0243, For 1 dose New Bag 09/15/2022 2:52 AM CDT 1,000 mL documented in this encounter Active and Recently Administered Medications Times are shown in CDT. Scheduled Medication Order 09/13/2022 09/14/2022 09/15/2022 acetaminophen (TYLENOL) tablet 1,000 mg 1,000 mg, oral, Once, On 09/15/22 at 0758, For 1 dose 0800 (Not Given - Pr ovider: Michael Jorge RN - Reason: Patient/family refused) cefTRIAXone (ROCEPHIN) 500 mg in sterile water 5 mL (100 mg/mL) IV syringe (COMPLETED) 500 mg, intravenous, at 300 mL/hr, Administer over 1 Minutes, Once, On 09/15/22 at 0759, For 1 dose, Indications: Sexually Transmitted Infection 0837 (Given - Provid er: Marbella Valdez RN) fentaNYL (SUBLIMAZE) preservative free injection 50 mcg (COMPLETED) 50 mcg, intravenous, Once, On 09/15/22 at 0551, For 1 dose 0635 (Given - Provid er: Raoul Stuart RN) naproxen (NAPROSYN) tablet 500 mg (COMPLETED) 500 mg, oral, Once, On 09/15/22 at 0816, For 1 dose 0844 (Given - Provid er: Marbella Valdez RN) sodium chloride 0.9% bolus 1,000 mL (COMPLETED) 1,000 mL, intravenous, Once, On 09/15/22 at 0243, For 1 dose 0252 (New Bag - Prov ider: Marcelino Renner RN)0715 (Stopped - Provider: Marbella Valdez RN) PRN Medication Order 09/13/2022 09/14/2022 09/15/2022 ioversoL (OPTIRAY 350) injection 100 mL (COMPLETED) 100 mL, intravenous, Once in imaging, contrast, Starting on 09/15/22 at 0721, For 1 dose 0721 (Contrast Given - Provider: Maryana Miller, RT) ondansetron (ZOFRAN) injection 4 mg 4 mg, intravenous, Administer over 2 Minutes, Every 30 min PRN, nausea, vomiting, Starting on 09/15/22 at 0734, For 2 doses, Indications: Nausea, Vomiting 0757 (Given - Provid er: Marbella Valdez, RN) documented in this encounter Orders Medications Ordered That Nael ht Not Have Been Administered Count Last Ordered Date First Ordered Date acetaminophen (TYLENOL) tablet 1,000 mg 1 0 09/15/2022 Nursing Count Last Ordered Date First Orde red Date PROVIDE EQUIPMENT / SUPPLIES AT BEDSIDE 1 0 09/15/2022 MISCELLANEOUS NURSING CARE ORDER (SPECIFY) 1 09/14/2022 documented in this encounter Care Teams Stage Set Up Worker Relationship Specialty Start Date End Date Clinic, [address] [place] [address] PCP - General 11/01/20 11/28/22 documented as of this encounter
--- OUTSIDE RECORDS SUMMARY | 2024-04-26 21:25 | XMS_ITS | Encounter Summary ---
Author Organization [facility] Address [address] [place] [address] Phone Care Team Providers Care Real Estate Financial Analyst Name Role Phone Clinic, Medicine X. 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 Gender Identity Female 10/24/2023 9:52 AM CDT Sexual Orientation Straight 10/24/2023 9: 52 AM CDT documented as of this encounter Plan of Treatment Not on file documented as of this encounter Procedures Procedure Name Priority Date/Time Associated Diagnosis Comments US VEIN DUPLEX LOWER EXTREMITY LEFT LIMITED ED 10/15/2022 10:24 AM CDT documented in this encounter Results * US VEIN DUPLEX LOWER EXTREMITY LEFT LIMITED, UNILATERAL (10/15/2022 10:24 AM CDT) Anatomical Region Laterality Modality Vascular Left Ultrasound 10/15/2022 9:46 AM CDT Narrative 10/15/2022 11:34 PM CDT [facility] - Department of Vascular Surgery, Vascular Laboratory [address] [place] [address] Lower Extremity Venous Ultrasound Report Patient Name: SAHRA PARKS J : 1980 (42y 1m) Study Date: 10/15/2022 9:46:59 AM Gender: F Tech: Location: [facility] Ref.Provider: CATHLEEN LEIVA Quality: Adequate Order Provider: CATHLEEN LEIVA Procedures: Vascular Report: Venous Duplex imaging was performed in the left lower extremity. The common femoral, femoral, popliteal, posterior tibial, peroneal veins were evaluated for patency, spontaneity and phasicity with Doppler, compression and augmentation maneuvers. Great saphenous vein proximal at the junction was evaluated with compression maneuvers. Indications: Swelling lower extremity, left. Findings: Performing [employer] Planning: Marisel Palacios RVT. Left: Duplex scan reveals [...] Results called on the above date to Cathleen Leiva MD at 1015. Conclusions: 1. There [...] above. Electronically Signed By: Rolf Nair MD [facility] [phone] 2022-10-15 22:34:06 MDT CC: CC: Procedure Note Rolf Nair MD - 10/15/2022 [facility] - Department of Vascular Surgery,Vascular Laboratory [address] [place] [address] Lower Extremity Venous Ultrasound Report Patient Name: SAHRA PARKS JPatient ID: [id number] : 1980 (42y 1m)Study Date: 10/15/2022 9:46:59 AM Gender: FAccession #: [id number] Tech: Location: [facility] Ref.Provider: Tor LEIVAality: Adequate Order Provider: Maria Elena LEIVA #: [id number] Procedures: Vascular Report: Venous Duplex imaging was performed in the left lower extremity. Thecommon femoral, femoral, popliteal, posterior tibial, peroneal veins were evaluated forpatency, spontaneity and phasicity with Doppler, compression and augmentationmaneuvers. Great saphenous vein proximal at the junction was evaluated with compressionmaneuvers. Indications: Swelling lower extremity, left. Findings: Performing [employer] Planning: Marisel Palacios RVT. Left: Duplex scan reveals [...] Results called on the above date to Cathleen Leiva MD at 1015. Conclusions: 1. There [...] above. Electronically Signed By: Rolf Nair MD [facility] [phone] 2022-10-15 22:34:06 MDT CC: CC: us Cathleen Leiva MD IMG US PROCEDURES Final Resu lt documented in this encounter Visit Diagnoses Not on filedocumented in this encounter Care Teams Real Estate Financial Analyst Relationship Specialty Start Date End Date Clinic, Medicine [address] [place] [address] PCP - General 11/01/20 11/28/22 documented as of this encounter
--- OUTSIDE RECORDS SUMMARY | 2024-04-26 21:27 | XMS_ITS | Patient Health Record ---
Author Organization [facility] Address [address] [place] [address] Care Team Providers Care Manager Of Broadcast Content Name Role Phone Hector Solis Primary Care Provider Nadja Martinez Unavailable [phone] Kin Melara Unavailable [phone] Yolanda Akhtar Unavailable [phone] Allergies Allergen (clinical drug ingredient) Drug/Non Drug Allergy documented on EMR Reaction Allergy Type Onset Date Status morphine Morphine Unknown Drug Allergy Active Results Component Value Reference Range Notes Urinalysis In-House, Routine Reviewed date:11/12/2023 02:51:20 PM Interpretation: Performing Lab: Notes/Report: Urine-Color yellow Appearance cloudy Leukocytes neg Nitrite, Urine neg Urobilinogen,Semi-Qn .2 Protein neg pH 6 Occult Blood neg Specific [place] 1.02 Ketones neg Bilirubin neg Glucose neg Reason For Referral Reason Case management AC T team referral Diagnosis 1 WILLAM (generalized anx iety disorder) (F41.1) Referral Organization [facility] Referring Provider First Name Nadja Referring Provider Last Name Juan Referring Provider Speciality Psychiatry Referred Provider Specialty Behavioral [facility] Clinical Notes Мария Campos 06/27 02:05:55 PM > connected with ct. needing bus pass and resources for moving into apartment by self. provided some resources and referral placed for TCM Referral Priority Routine Reason SI. Email sent to cI and SR Diagnosis 1 Schizoaffective diso rder, bipolar type (F25.0) Referral Organization [facility] Referring Provider First Name Nadja Referring Provider Last Name Juan Referring Provider Speciality Psychiatry Referred Provider Specialty Behavioral [facility] Clinical Notes Мария Campos 08/20 02:17:40 PM > travel writer texted and called ct. Also sent info over to CM Jose to continue to follow up as needed Referral Priority Urgent Medications Medication SIG (Take, Route, Frequency, Duration) Notes Start Date End Date Status Ibuprofen 800 MG 1 tablet with food o r milk as needed Orally every 8 hrs Active lamoTRIgine 200 MG 1/2 tablet Orally on ce a day Active Naltrexone HCl 50 MG Oral for 30 Days Not-Taking Ketoconazole 2 % External for 30 Days Not-Taking cloNIDine HCl 0.3 MG 1 tablet Orally Onc e a day for 30 days Active Topiramate 100 MG 1 tablet Orally Once a day for 30 days Active ALPRAZolam 1 MG 1 tablet Oral once a day for 10 days As needed anxiety Active Levothyroxine Sodium 175 MCG Oral for 7 Days Active Venlafaxine HCl ER 150 MG 1 capsule with food Orally Once a day for 30 days 08/16/2023 Active Xarelto 20 MG 1 tablet with food Orally Once a day Active Focalin XR 20 MG Oral for 30 Days Not-Taking Ondansetron HCl 4 MG 1 tablet Orally Onc e a day Not-Taking buPROPion HCl ER (XL) 300 MG 1 tablet in the morning Oral Once a day for 30 days Active Clopidogrel Bisulfate 75 MG Oral for 30 Days Active Minoxidil 2 % 1 mL Externally Twice a day apply to scalp 11/12/2023 Active Social History Tobacco Use: Social History Observation Description Date Details (start date - stop date) Former Smoker NA - NA Sex Assigned At : Social History Observation Description Sex Assigned At Female Dont use, Tobacco Use/Smoking Question Answer Notes Are you a current every day smoker Tobacco Control (Standard) Question Answer Notes Tobacco use: Former smoker How long has it been since you last smoked? 1-5 years Problems Problem Type SNOMED Code ICD Code Onset Dates Problem Status W/U Status Risk Notes Problem Tobacco user (939002178) Nicotine dependence, unspecified, uncomplicated (F17.200) Active confirmed Problem Posttraumatic stress disorder (32571232) PTSD (post-traumatic stress disorder) (F43.10) Active confirmed Problem Chronic pain (91688586) Chronic pain (G89.29) Active confirmed Problem Generalized anxiety disorder (93278267) WILLAM (generalized anxiety disorder) (F41.1) Active confirmed Problem Moderate recurrent major depression (30859742) MDD (major depressive disorder), recurrent episode, moderate (F33.1) Active confirmed Problem Hypothyroidism (74225957) Hypothyroidism (acquired) (E03.9) Active confirmed Problem Obsessive-compulsi ve disorder (099271602) OCD (obsessive compulsive disorder) (F42.9) Active confirmed Problem Hypercoagulable state (88690297) Hypercoagulable state (D68.59) Active confirmed Vital Signs Heart Rate 73 /min 11/12/2023 Temperature 97.2 degrees Fahrenheit 09/12/2023 Respiratory Rate 16 /min 11/12/2023 Oximetry 99 % 11/12/2023 Blood pressure diastolic 70 mm Hg 11/12/2023 Height 65 in 11/12/2023 Blood pressure systolic 102 mm Hg 11/12/2023 Weight 136.2 lbs 11/12/2023 BMI 22.66 kg/m2 11/12/2023 Encounters Encounter Location Date Provider Diagnosis [address] [address] 07/05/2023 Nadja Martinez [address] [address] 08/14/2023 Nadja Martinez [address] [place] [address] 09/10/2023 Hector Solis [address] [place] [address] 11/12/2023 Hector Solis Hematochezia K92.1 ; Chronic daily headache R51.9 ; Abnormal antinuclear antibody titer R76.8 ; Hypercoagulable state D68.59 ; Chronic pain G89.29 ; Hypothyroidism (acquired) E03.9 ; Dysuria R30.0 and Alopecia L65.[address] [place] [address] 08/16/2023 Nadja Martinez Schizoaffective disorder, bipolar type F25.0 and WILLAM (generalized anxiety disorder) F41.1 [facility] [address] [place] [address] 06/26/2023 Nadja Martinez Schizoaffective disorder, bipolar type F25.0 and WILLAM (generalized anxiety disorder) F41.[address] [facility] [place] [address] 11/22/2023 Nadja Martinez Schizoaffective disorder, bipolar type F25.0 ; WILLAM (generalized anxiety disorder) F41.1 ; PTSD (post-traumatic stress disorder) F43.10 ; MDD (major depressive disorder), recurrent episode, moderate F33.1 and OCD (obsessive compulsive disorder) F42.9 [facility] [address] [place] [address] 09/12/2023 Nadja Martinez Schizoaffective disorder, bipolar type F25.0 and WILLAM (generalized anxiety disorder) F41.[address] [place] [address] 06/28/2023 Yolanda Akhtar Assessments Encounter Date Diagnosis (ICD Code) Assessment Notes Treatment Notes Treatment Clinical Notes Section Notes 06/26/2023 Schizoaffective disorder, bipolar type (ICD-10 - F25.0) 08/16/2023 Schizoaffective disorder, bipolar type (ICD-10 - F25.0) Increased Effexor to help with Depression. Referred to [facility]. Client calmed before the end of the call and contacted for safety and that she would pharmacy picking technician for Crisis. Which she did and they spoke with her ensuring safety. Continue services as scheduled. Labs completed recently. May self-administer medications or be administered own oral medications per [facility] protocols. Provided informed consent with understanding of side effects, adverse effects, risks and benefits as well as alternative treatments as previously discussed and with the above recommended medications & other aspects of the treatment program. Agrees to return sooner if symptoms worsen or suicidal or homicidal ideations occur. 09/12/2023 Schizoaffective disorder, bipolar type (ICD-10 - F25.0) Continue current medications. Continue services as scheduled. Labs completed recently. May self-administer medications or be administered own oral medications per [facility] protocols. Provided informed consent with understanding of side effects, adverse effects, risks and benefits as well as alternative treatments as previously discussed and with the above recommended medications & other aspects of the treatment program. Agrees to return sooner if symptoms worsen or suicidal or homicidal ideations occur. 11/12/2023 Hematochezia (ICD-10 - K92.1) CONSIDER FURTHER EVALUATION WITH COLONOSCOPY AFTER COMPLETION LF VASCULAR PROCEDURE AT [facility] 11/12/2023 Chronic daily headache (ICD-10 - R51.9) RESUME TOPIRAMATE, AVOID IBUPROFEN 11/22/2023 Schizoaffective disorder, bipolar type (ICD-10 - F25.0) 11/22/2023 WLILAM (generalized anxiety disorder) (ICD-10 - F41.1) 11/22/2023 PTSD (post-traumatic stress disorder) (ICD-10 - F43.10) 11/12/2023 Abnormal antinuclear antibody titer (ICD-10 - R76.8) KEEP RHEUM APPT 09/12/2023 WILLAM (generalized anxiety disorder) (ICD-10 - F41.1) 08/16/2023 WILLAM (generalized anxiety disorder) (ICD-10 - F41.1) 06/26/2023 WILLAM (generalized anxiety disorder) (ICD-10 - F41.1) Continue current medications. Continue services as scheduled. Labs completed recently. May self-administer medications or be administered own oral medications per [facility] protocols. Provided informed consent with understanding of side effects, adverse effects, risks and benefits as well as alternative treatments as previously discussed and with the above recommended medications & other aspects of the treatment program. Agrees to return sooner if symptoms worsen or suicidal or homicidal ideations occur. 11/12/2023 Hypercoagulable state (ICD-10 - D68.59) F/U WITH HEME AND VASCULAR AT [facility] 11/22/2023 MDD (major depressive disorder), recurrent episode, moderate (ICD-10 - F33.1) 11/22/2023 OCD (obsessive compulsive disorder) (ICD-10 - F42.9) 11/12/2023 Chronic pain (ICD-10 - G89.29) 11/12/2023 Hypothyroidism (acquired) (ICD-10 - E03.9) SEES ENDO AT [facility] 11/12/2023 Dysuria (ICD-10 - R30.0) 11/12/2023 Alopecia (ICD-10 - L65.9) 11/12/2023 Other JACKI SIGNED FOR ALL RECORDS FROM [facility] FOR THE PAST 2 YEARS 11/22/2023 Other Continue current medications. Will monitor for psychosis symptoms, but taking schizoaffective off the med list. Adding OCD and PTSD. Continue services as scheduled. Labs completed recently. May self-administer medications or be administered own oral medications per [facility] protocols. Provided informed consent with understanding of side effects, adverse effects, risks and benefits as well as alternative treatments as previously discussed and with the above recommended medications & other aspects of the treatment program. Agrees to return sooner if symptoms worsen or suicidal or homicidal ideations occur. Plan Of Treatment No Information Insurance Providers Payer Name Payer Address Payer Phone Subscriber Number Group Number Insured Name Patient Relationship to Insured Coverage Start Date Coverage End Date [facility] Claims Department [address] [place] [address] [id number] CharlySahra Self - patient is the insured 2 [employer] [address] [place] [phone] [id number] Sahra Parks Self - patient is the insured 1 2 [employer] [address] [place] [phone] [id number] Sahra Parks Self - patient is the insured 1 2 [facility] [employer] [facility] [address] [place] [address] [id number] aShra Parks Self - patient is the insured 2 Medical (General) History Medical History History ICD Code hypothyroidism. Depressive disorder F32.9 Psychosis, unspecified psychosis type F2 9 deep vein thrombosis Schizoaffective disorder, bipolar type F 25.0 Surgical History Surgery Date(Month/Year) D and C 2001 Hernia 2005 DVT 2022 Hospitalization History Reason Date(Month/Year)
--- OUTSIDE RECORDS SUMMARY | 2024-04-26 21:27 | XMS_ITS ---
Author Organization [facility] Address [address] [place] [address] Care Team Providers Care French Binding Folder Name Role Phone Hector Solis Primary Care Provider Nadja Martinez [phone] REASON FOR VISIT rs frm 11/11;r/s from 11/05/23--follow up Social History Sex Assigned At : Social History Observation Description Sex Assigned At Female Encounters Encounter Location Date Provider Diagnosis [address] [place] [address] 11/19/2023 Hector Solis Plan Of Treatment No Information Progress Notes * Sahra PARKS RosamariaDOB:1980 (43 yo F)Acc No.[id number]:11/19/2023 UNLOCKED PROGRESS NOTE Progress Notes Patient:?Sahra PARKS Provider:?Hector Solis :1980???Age:43 Y???Sex:Female D ate:11/19/2023 Address:[address] [place] [address] , [facility] Subjective: * Chief Complaints: * ???1. Rs frm 11/11;r/s from --follow up. * Medical History:? Objective: * Vitals:? Assessment: Plan: * Treatment: * * Electronic signature of Paola Solis , [id number] on 04/26/2024 at 09:27 PM [employer] Sign off status: Pending * Provider:?Hector Solis Date:? Generated for Swapnil phillips/Geeta/eTransmitting on:?04/26/2024 09:27 PM [employer]
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
--- OUTSIDE RECORDS SUMMARY | 2024-04-26 21:27 | XMS_ITS ---
Author Organization [facility] Address [address] [place] [address] Care Team Providers Care Dyno Technician Name Role Phone Hector Solis Primary Care Provider [phone] Nadja Martinez Unavailable [phone] Allergies Allergen (clinical drug ingredient) Drug/Non Drug Allergy documented on EMR Reaction Allergy Type Onset Date Status morphine Morphine Unknown Drug Allergy Active Results Component Value Reference Range Notes Urinalysis In-House, Routine Reviewed date:11/12/2023 02:51:20 PM Interpretation: Performing Lab: Notes/Report: 0 Urine-Color yellow Appearance cloudy Leukocytes neg Nitrite, Urine neg Urobilinogen,Semi-Qn .2 Protein neg pH 6 Occult Blood neg Specific York 1.02 Ketones neg Bilirubin neg Glucose neg REASON FOR VISIT r/s from 11/05/23--follow up Medications Medication SIG (Take, Route, Frequency, Duration) Notes Start Date End Date Status Focalin XR 20 MG Oral for 30 Days Not-Taking Ketoconazole 2 % External for 30 Days Not-Taking Naltrexone HCl 50 MG Oral for 30 Days Not-Taking ALPRAZolam 1 MG 1 tablet Oral once a day for 10 days As needed anxiety Active Ibuprofen 800 MG 1 tablet with food or milk as needed Orally every 8 hrs Active Minoxidil 2 % 1 mL Externally Twice a day apply to scalp 11/12/2023 Active Levothyroxine Sodium 175 MCG Oral for 7 Days Active buPROPion HCl ER (XL) 300 MG 1 tablet in the morning Oral Once a day for 30 days Active Ondansetron HCl 4 MG 1 tablet Orally Onc e a day Not-Taking lamoTRIgine 200 MG 1/2 tablet Orally once a day Active Phenazopyridine HCl 200 MG 1 tablet afte r meals Orally Three times a day for 2 days 11/12/2023 11/14/2023 Active Venlafaxine HCl ER 150 MG 1 capsule with food Orally Once a day for 30 days 08/16/2023 Not-Taking Xarelto 20 MG 1 tablet with food Orally Once a day Active cloNIDine HCl 0.3 MG 1 tablet Orally Onc e a day for 30 days Active Topiramate 100 MG 1 tablet Orally Once a day for 30 days Active Social History Tobacco Use: Social History [...] Problem Status W/U Status Risk Notes Problem Hypercoagulable state (22737181) Hypercoagulable state (D68.59) Active confirmed Vital Signs Weight 136.2 lbs 11/12/2023 Height 65 in 11/12/2023 BMI 22.66 kg/m2 11/12/2023 Blood pressure systolic 102 mm Hg 11/12/19 24 Blood pressure diastolic 70 mm Hg 024 Heart Rate 73 /min 11/12/2023 Oximetry 99 % 11/12/2023 Respiratory Rate 16 /min 11/12/2023 Encounters Encounter Location Date Provider Diagnosis [address] [address] 11/12/2023 Hector Solis Hematochezia K92.1 ; Chronic daily headache R51.9 ; Abnormal antinuclear antibody titer R76.8 ; Hypercoagulable state D68.59 ; Chronic pain G89.29 ; Hypothyroidism (acquired) E03.9 ; Dysuria R30.0 and Alopecia L65.9 Assessments Encounter Date Diagnosis (ICD Code) Assessment Notes Treatment Notes Treatment Clinical Notes Section Notes 11/12/2023 Hematochezia (ICD-10 - K92.1) CONSIDER FURTHER EVALUATION WITH COLONOSCOPY AFTER COMPLETION LF VASCULAR PROCEDURE AT [facility] 11/12/2023 Chronic daily headache (ICD-10 - R51.9) RESUME TOPIRAMATE, AVOID IBUPROFEN 11/12/2023 Abnormal antinuclear antibody titer (ICD-10 - R76.8) KEEP RHEUM APPT 11/12/2023 Hypercoagulable state (ICD-10 - D68.59) F/U WITH HEME AND VASCULAR AT [facility] 11/12/2023 Chronic pain (ICD-10 - G89.29) 11/12/2023 Hypothyroidism (acquired) (ICD-10 - E03.9) SEES ENDO AT [facility] 11/12/2023 Dysuria (ICD-10 - R30.0) 11/12/2023 Alopecia (ICD-10 - L65.9) 11/12/2023 Other JACKI SIGNED FOR ALL RECORDS FROM [facility] FOR THE PAST 2 YEARS Plan Of Treatment Medication Medication Name Sig Start Date Stop Date Notes Minoxidil 2 % 1 mL Externally Twice a day 11/12/2023 Phenazopyridine HCl 200 MG 1 tablet afte r meals Orally Three times a day for 2 days 11/12/2023 11/14/2023 Topiramate 100 MG 1 tablet Orally Once a day for 30 days Treatment Notes Assessment Notes Other JACKI SIGNED FOR ALL R ECORDS FROM [facility] FOR THE PAST 2 YEARS Next Appt Details Follow Up: 4 Weeks, Reason: REVIEW RECORDS FROM [facility], [facility]EMAT[facility]HEZIA FURTHER Progress Notes * Sahra PARKSDOB:1980 (43 yo F)Acc No.[id number]:11/12/2023 Progress Notes Patient:?Sahra PARKS Provider:?Hector Solis :1980???Age:43 Y???Sex:Female D ate:11/12/2023 Address:[address] [place], [place] [id number] Check In:01:54 PM FOUNDATION COORDINATOR Subjective: * Chief Complaints: * ???R/s from 11/05/23--follow up * HPI: ???Depression Screening:?PHQ-9?Little interest or pleasure in doing things?Several days ?Feeling down, depressed, or hopeless?More than half the days ?Trouble falling or staying asleep, or sleeping too much?More than half the days ?Poor appetite or overeating?More than half the days ?Feeling bad about yourself or that you are a failure, or have let yourself or your family down?More than half the days ?Moving or speaking so slowly that other people could have noticed; or the opposite, being so fidgety or restless that you have been moving around a lot more than usual?Not at all ?Thoughts that you would be better off or of hurting yourself in some way?Not at all ???Screening:?Porter Suicide Severity Rating Scale (LF)?Do you want to initiate with?Screener form ?1. Wish to be : Have you wished you were or wished you could go to sleep and not wake up??No ?2. Suicidal Thoughts: Have you actually had any thoughts of killing yourself??No ?6. Suicide Behaviour: Have you ever done anything,started to do anything, or prepared to end your life??No ?Interpretation:?Low Risk ???CSSRS Interpretation and Follow Up Plan:?CSSRS Interpretation and Follow Up Plan. ???Depression Screening PHQ2 2015:?Intervention?Depression screening Finding?Positive ???Preventative Health and Wellness follow-up:? . ???Interim History:? SEEING A NURSE PRACTITIONER AT [facility].? CAME IN TODAY BECUASE SHE WANTED TO MAKE SURE SHE IS 'NOT SICK' 'IT MIGHT BE ALLERGIES'? IS TO HAVE A STENT PLACED IN HER LEFT ILIAC ARTER, SECOND ONE FIRST STENT WAS PLACED 09/2022.? TESTED POSITIVE FOR LUPUS AT [facility].? FORMS BLOOD COTS: 'I COULD SEE THEM CIRCULATING IN MY BODY -- LIKE MARBLES IN MY VEINS'? HAD THROMBECTOMY ON HER LEFT LEG C/O CHRONIC DYSURIA. DENIED THAT U/A WAS DONE AT [facility].? DAILY HEADACHES SINCE STOPPING TOPIRAMATE. WOULD LIKE TO RESUME IT IT DECREASED HER NEED FOR IBUPROFEN. H/A'S ARE ACHING, GENERALIZED, W/O ASSOCIATED SYMPTOMS EXCEPT NAUSEA. USES IBUPREFEN DAILY, SOMETIMES EVERY FOUR HOURS WITH MINIMAL RELIEF. INTERMITTENT BRB FROM RECTUM WITH DEFECATION. NO PAIN. NO DIZZINESS. NO FAINTS. NO HX OF ANEMIA NOTED. AWAIT LABS FROM [facility] AND COMPLETION OF VASCULAR PROCEDURE PRIOR TO PURSUING FURTHER EVALUATION UNLESS BLEDDING WORSENS. SHE IS IN AGREEMENT. ALSO NOTES SHE HAS LOST 80% OF HER HAIR. DIFFUSE. NO BALD SPOTS. NO HAIR LOSS FROM BODY NOTED. NONSMOKER. RARE GLASS OF WINE. NO RECREATIONAL DRUGS. NO CANNABIS. * ROS:?Basic ROS:?Denies?Weight loss or gain.?Admits?Headache.? * Medical History:? * Surgical History:?D and C 20 02Hernia 2005DVT 2022mayth * Hospitalization/Major Diagno stic Procedure:?No Hospitalization History. * Family History:?Father: james clark?Mother: alive.?2 brother(s) , 2 sister(s) - healthy. 2 son(s) , 1 daughter(s) - healthy. .? * Social History:?Primary Social History:?Living Arrangement?Living Arrangement:?Dependent Living ?Living with:?Other: ?Alcohol Use?Alcohol Use Frequency:?Never ?Illicit Substance Usage?Illicit Substance Usage:?No ?Employment Status?Employment Status:?Unemployed ???Tobacco Use:?Dont use, Tobacco Use/Smoking?Are you a?current every day smoker ?Tobacco Control (Standard)?Tobacco use:?Former smoker ?How long has it been since you last smoked??1-5 years ???Miscellaneous:?Method of learning?Preferred method of learning:?Discussion * Medications:?TakingXarelto 2 0 MG Tablet 1 [...] Oral once a day As needed anxietyTaking Xarelto 20 MG Tablet 1 tablet with [...] tablet Oral once a day As needed anxietyNot-TakingVenlafaxine HCl ER 150 MG Capsule Extended Release 24 Hour 1 capsule with food Orally Once a day Topiramate 100 MG Tablet 1 tablet Orally twice a day Ondansetron HCl 4 MG Tablet 1 tablet Orally Once a day Focalin XR 20 MG Capsule Extended Release 24 Hour Oral Ketoconazole 2 % Shampoo External Naltrexone HCl 50 MG Tablet Oral Not-Taking Venlafaxine HCl ER 150 MG Capsule Extended Release 24 Hour 1 capsule with food Orally Once a day Not-Taking Topiramate 100 MG Tablet 1 tablet Orally twice a day Not-Taking Ondansetron HCl 4 MG Tablet 1 tablet Orally Once a day Not-Taking Focalin XR 20 MG Capsule Extended Release 24 Hour Oral Not-Taking Ketoconazole 2 % Shampoo External Not-Taking Naltrexone HCl 50 MG Tablet Oral DiscontinuedhydrOXYzine HCl 50 MG Tablet 1 tablet as needed Orally Twice a day Wellbutrin SR 150 MG Tablet Extended Release 12 Hour 1 tablet in the morning Orally Once a day Reglan 5 MG Tablet 1 tablet before meals Orally Twice a day Fluticasone-Sodium Chloride Metoclopramide HCl 5 MG Tablet Oral Clopidogrel Bisulfate 75 MG Tablet Oral Medication List reviewed and reconciled with the patientDiscontinued hydrOXYzine HCl 50 MG Tablet 1 tablet as needed Orally Twice a day Discontinued Wellbutrin SR 150 MG Tablet Extended Release 12 Hour 1 tablet in the morning Orally Once a day Discontinued Reglan 5 MG Tablet 1 tablet before meals Orally Twice a day Discontinued Fluticasone-Sodium Chloride Discontinued Metoclopramide HCl 5 MG Tablet Oral Discontinued Clopidogrel Bisulfate 75 MG Tablet Oral Medication List reviewed and reconciled with the patient * Allergies:?Morphineno[Allerg ies Verified] Objective: * Vitals:?Initials: st, Wt:136 .2, Ht: 65, BMI:22.66, BP:102/70, HR:73, Oxygen sat %:99, RR:16, LMP: 10/2023, Pain scale:8. * Examination: ???General Examination: ?GENERAL APPEARANCE:?well developed, well nourished, in no acute distress.?HEAD:?normocephalic, atraumatic.?EYES:?PERRLA, sclera and conjunctiva clear.?EARS? External ears intact.?NOSE:?nares patent, no lesions, septum intact.?ORAL CAVITY:?mucosa moist.?THROAT:?no erythema, no exudate, pharynx normal.?NECK/THYROID:?no JVD, no goiter.?SKIN:?warm and dry, no rashes.?HEART:?regular rate and rhythm, no murmurs.?LUNGS:?respirations regular and easy, clear to auscultation bilaterally.?ABDOMEN:?bowel sounds present, soft, nontender, nondistended, no masses palpable, no organomegaly .?MUSCULOSKELETAL:?no joint deformity, swelling, redness, or warmth , RAQUEL upper and lower extremities.?EXTREMITIES:?no clubbing, cyanosis, or edema.?NEUROLOGIC:?cranial nerves 2-12 grossly intact.? Assessment: * Assessment: 1.?Hematochezia - K92.1???2. ?Chronic daily headache - R51.9 (Primary)???3.?Abnormal antinuclear antibody titer - R76.8???4.?Hypercoagulable state - D68.59???5.?Chronic pain - G89.29???6.?Hypothyroidism (acquired) - E03.9???7.?Dysuria - R30.0???8.?Alopecia - L65.9??? Plan: * Treatment: 2.?Hematochezia? Clinical Notes: CONSIDER FURTHER EVALUATION WITH COLONOSCOPY AFTER COMPLETION LF VASCULAR PROCEDURE AT [facility]?? 3.?Abnormal antinuclear anti body titer? Clinical Notes: KEEP RHEUM APPT?? 4.?Hypercoagulable state? Clinical Notes: F/U WITH HEME AND VASCULAR AT [facility]?? 5.?Hypothyroidism (acquired) ? Clinical Notes: SEES ENDO AT [facility]?? 6.?Dysuria? Start Phenazopyridine HCl Tablet, 200 MG, 1 tablet after meals, Orally, Three times a day, 2 days, 6, Refills 0.?LAB: Urinalysis In-House, Routine (Collection Date & Time - 11/12/2023) ? Value Reference Range ?Urine-Color yellow * ?Appearance cloudy * ?Leukocytes neg * ?Nitrite, Urine neg * ?Urobilinogen,Semi-Qn .2 * ?Protein neg * ?pH 6 * ?Occult Blood neg * ?Specific York 1.02 * ?Ketones neg * ?Bilirubin neg * ?Glucose neg 7.?Alopecia? Start Minoxidil Solution, 2 %, 1 mL, Externally, Twice a day apply to scalp, 60 mL, Refills 5.??8.?Others? Notes: JACKI SIGNED FOR ALL RECORDS FROM [facility] FOR THE PAST 2 YEARS?? * Recommended Wellness and Pre vention Guidelines: * ?Status ?Alert ?Last Done ?Next Due ?Action Taken ?NONCOMPLIANT ?Alcohol use screening ?- ? 4 ?- ?NONCOMPLIANT ?Allergy List Verification ?- ?11/11 ?- ?NONCOMPLIANT ?Depression followup ?09/12/2023 ?11/12/2023 ?- ?NONCOMPLIANT ?HIV screening ?- ?11/12/2023 ?- * Procedure Codes:?76667 URINE -NO MICRO, Modifiers: QW [id number] SPECIMEN HANDLING * Follow Up:?4 Weeks (Reason: REVIEW RECORDS FROM [facility] FURTHER) * * Sign off status: Completed true * Provider:?Hector Solis Date:? 4 Generated for Swapnil phillips/Geeta/eTransmitting on:?04/26/2024 09:27 PM FOUNDATION COORDINATOR History and Physical Notes * HPI (History of Present Illness) Category Sub-Category Detail Notes Category Not es Depression Screening PHQ9 Intervention Depres goyo screening Finding: Positive Depression Screening PHQ-9 Little inte rest or pleasure in doing things: Several days Feeling down, depressed, or hopeless: Mo re than half the days Trouble falling or staying a sleep, or sleeping too much: More than half the days Poor appetite or overeating: More than h gabby the days Feeling bad about yourself o r that you are a failure, or have let yourself or your family down: More than half the days Moving or speaking so slowly that other people could have noticed; or the opposite, being so fidgety or restless that you have been moving around a lot more than usual: Not at all Thoughts that you would be b jens off or of hurting yourself in some way: Not at all Screening Porter Suicide Sev erity Rating Scale (LF) Do you want to initiate with: Screener form ?1. Wish to be : Have yo u wished you were or wished you could go to sleep and not wake up?: No ?2. Suicidal Thoughts: Have you actually had any thoughts of killing yourself?: No ?6. Suicide Behaviour: Have you ever done anything,started to do anything, or prepared to end your life?: No ?Interpretation:: Low Risk Preventative Health and Wellness follow-up . Examination Category Sub-Category Detail Notes Category Not es General Examination GENERAL APPEARANCE: well dev eloped, well nourished, in no acute distress HEAD: normocephalic, atrau matic EYES: PERRLA, sclera and c onjunctiva clear EARS External ears intact NOSE: nares patent, no les ions, septum intact THROAT: no erythema, no exud ate, pharynx normal NECK/THYROID: no JVD, no goiter HEART: regular rate and rhy thm, no murmurs LUNGS: respirations regular and easy, clear to auscultation bilaterally ABDOMEN: bowel sounds present , soft, nontender, nondistended, no masses palpable, no organomegaly NEUROLOGIC: cranial nerves 2-12 grossly intact SKIN: warm and dry, no janet hes EXTREMITIES: no clubbing, cyanosi s, or edema MUSCULOSKELETAL: no joint deformity, swelling, redness, or warmth , RAQUEL upper and lower extremities ORAL CAVITY: mucosa moist
== END 2024-04-19 23:55 | disposition home or self-care (01) ==
PROVIDERS: Emergency Provider Emergency Medicine
DX: R51.9 Headache, unspecified (principal); Z79.01 Long term (current) use of anticoagulants; Z86.718 Personal history of other venous thrombosis and embolism; Z87.891 Personal history of nicotine dependence
CPT/HCPCS: 36415; 70450; 80053; 83735; 85025; 96365; 96375; 99284; J1100; J1200; J2765; J3475; J7030

== ENCOUNTER 2024-05-18 16:43 | Emergency (ER) | payer OTHER, SELFPAY ==
[2024-05-18 16:45] VITALS: BP 112/76; PULSE 95; RESP 16; TEMP 36.9; O2SAT 100
--- NOTE | 2024-05-18 18:03 | ED_ITS ---
HPI - General Adult General Chief complaint: Extremity Injury, Lower Stated complaint: Left Leg Pain Time Seen by Provider: 05/18/24 17:47 Source: patient and RN notes reviewed Mode of arrival: ambulatory Limitations: no limitations History of Present Illness HPI narrative: Patient presents today complaining of bilateral lower leg pain and swelling since last night that has worsened since onset. She describes the pain as occasional sharp pains. She has been taking Tylenol without relief. 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 She is currently on Xarelto. She sees hematology in 2 months for an initial visit as she states my blood is still clotting even with the Xarelto. States, my legs feel like lead. She denies numbness or tingling, injury, or any other symptoms. Related Data Home Medications ?Medication ?Instructions ?Recorded ?Confirmed ?Last Taken ?Type albuterol sulfate 90 mcg/actuation 1 inh inhalation Q4H PRN Shortness 03/19/23 04/03/23 Unknown History aerosol inhaler Of Breath alprazolam 1 mg tablet 1 mg PO DAILY PRN Anxiety 03/19/23 04/03/23 Unknown History levothyroxine 175 mcg capsule 175 mcg PO DAILY 03/19/23 04/03/23 Unknown History bupropion HCl 150 mg tablet,12 hr 150 mg PO DAILY 04/03/23 04/03/23 Unknown History sustained-release cholecalciferol (vitamin D3) 125 125 mcg PO DAILY 04/03/23 04/03/23 Unknown History mcg (5,000 unit) tablet (Vitamin D3) clonidine HCl 0.2 mg tablet 0.2 mg PO HS 04/03/23 04/03/23 Unknown History cyanocobalamin (vitamin B-12) 1,000 mcg IM MONTHLY 04/03/23 04/03/23 Unknown History 1,000 mcg/mL injection solution dexmethylphenidate 20 mg 20 mg PO DAILY 04/03/23 04/03/23 Unknown History capsule,extended release [id number] (Focalin XR) diazepam 5 mg tablet 5 - 10 mg PO DAILY PRN Anxiety 04/03/23 04/03/23 Unknown History ergocalciferol (vitamin D2) 1,250 1,250 mcg PO WEEKLY 04/03/23 04/03/23 Unknown History mcg (50,000 unit) capsule ferrous sulfate 325 mg (65 mg 325 mg PO BID 04/03/23 04/03/23 Unknown History iron) tablet (Iron (ferrous sulfate)) fluticasone propionate 50 1 spray intranasal DAILY 04/03/23 04/03/23 Unknown History mcg/actuation nasal spray,suspension hydroxyzine pamoate 50 mg capsule 50 mg PO BID 04/03/23 04/03/23 Unknown History ketoconazole 2 % shampoo 1 applic topical PRN PRN DERMATITIS 04/03/23 04/03/23 Unknown History lamotrigine 25 mg tablet 50 mg PO DAILY 04/03/23 04/03/23 Unknown History linaclotide 145 mcg capsule 145 mcg PO DAILY 04/03/23 04/03/23 Unknown History (Linzess) metoclopramide HCl 10 mg tablet 10 mg PO TIDWMEAL 04/03/23 04/03/23 Unknown History ondansetron 4 mg disintegrating 4 - 8 mg PO TID PRN Nausea 04/03/23 04/03/23 Unknown History tablet polyethylene glycol 3350 17 17 g PO DAILY PRN Constipation 04/03/23 04/03/23 Unknown History gram/dose oral powder (Miralax) rivaroxaban 20 mg tablet (Xarelto) 20 mg PO DAILY 04/03/23 04/03/23 Unknown History thiamine HCl (vitamin B1) 1 tab-cap PO DAILY 04/03/23 04/03/23 Unknown History topiramate 100 mg tablet 150 mg PO DAILY 04/03/23 04/03/23 Unknown History vitamin A 1 cap PO DAILY 04/03/23 04/03/23 Unknown History zinc 1 tab-cap PO DAILY 04/03/23 04/03/23 Unknown History Allergies Allergy/AdvReac Type Severity Reaction Status Date / Time morphine Allergy Severe throat Verified 05/18/24 17:04 swelling nifedipine Allergy Intermediate Severe Verified 05/18/24 17:04 headache latex Allergy Mild Rash Verified 05/18/24 17:04 Sulfa (Sulfonamide AdvReac Mild vomiting Verified 05/18/24 17:04 Antibiotics) HYDROCODONE BIT AdvReac NAUSEA Uncoded 04/03/23 10:00 Review of Systems Review of Systems: CONSTITUTIONAL: Denies body aches, fever, chills, or sweats. EYES: Denies visual changes, redness, or discharge. ENT: Denies rhinorrhea, congestion, sore throat, or otalgia. CARDIOVASCULAR: Denies chest pain, palpitations, or edema. RESPIRATORY: Denies cough or dyspnea. GASTROINTESTINAL: Denies abdominal pain, nausea, vomiting, or diarrhea. GENITOURINARY: Denies dysuria or hematuria. SKIN: Denies rash, itching, or wounds. MUSCULOSKELETAL: Bilateral leg pain and swelling NEUROLOGIC: Denies headache, numbness, tingling, or weakness. PSYCH: Denies depression or anxiety. [facility] Past Medical History Medical History (Updated 05/18/24 @ 19:53 by Katie Fox, [facility], ) History of DVT (deep vein thrombosis) Constipation Nausea & vomiting Abdominal bloating Social History Social History Smoking packs per day: 0.75 Smoking cigarettes per day: 15.0 Years smoked: 16 Smoking pack-years: 12.00 Smoking status: Former smoker Tobacco type: cigarettes and e-cigarettes/vaping Alcohol intake: current Substance use: never Substance use type: does not use Living arrangements: with family Spiritual care concerns: No Comments At time of signature, I have reviewed and agree with nursing past medical, surgical, social and family history unless otherwise noted. Please see nursing chart for further information. There is no relevant family history pertinent to the presenting complaint Exam Narrative: GENERAL: Well-appearing, well-nourished, and in no acute distress. HEAD: Normocephalic, atraumatic. EYES: EOMI. No redness or drainage. Conjunctivae normal. ENT: Mucous membranes pink and moist. NECK: Normal AROM. CHEST: No respiratory distress. EXTREMITIES: Bilateral upper and lower legs without appreciable edema, color change, erythema, ecchymosis. Distal sensation intact bilaterally, capillary refill normal. Pedal pulses normal. Bilateral calves measure 33 cm exactly. - Homans bilaterally. Full range of motion of all joints bilaterally SKIN: Warm, dry, no rash. Capillary refill normal. Normal skin turgor. NEURO: No focal deficits. Alert and oriented x3. Gait steady. PSYCH: Anxious Course Course Level of Care: Express Care Visit Vital Signs Vital signs: Vital Signs Temperature 98.4 F 05/18/24 16:45 Pulse Rate 95 05/18/24 16:45 Respiratory Rate 16 05/18/24 16:45 Blood Pressure 112/76 05/18/24 16:45 Pulse Oximetry 100 05/18/24 16:45 Oxygen Delivery Room Air 05/18/24 16:45 Temperature 98.4 F 05/18/24 16:45 Pulse Rate 95 05/18/24 16:45 Respiratory Rate 16 05/18/24 16:45 Blood Pressure 112/76 05/18/24 16:45 Pulse Oximetry 100 05/18/24 16:45 Oxygen Delivery Room Air 05/18/24 16:45 Reviewed Medical Decision Making MDM Narrative Medical decision making narrative: Patient's exam is completely normal. Recommend follow-up with PCP. Differential Diagnosis Differential Diagnosis: Worried well, DVT, thrombophlebitis, muscle strain Vital Signs Vital Signs: Vital Signs Temperature 98.4 F 05/18/24 16:45 Pulse Rate 95 05/18/24 16:45 Respiratory Rate 16 05/18/24 16:45 Blood Pressure 112/76 05/18/24 16:45 Pulse Oximetry 100 05/18/24 16:45 Oxygen Delivery Room Air 05/18/24 16:45 Temperature 98.4 F 05/18/24 16:45 Pulse Rate 95 05/18/24 16:45 Respiratory Rate 16 05/18/24 16:45 Blood Pressure 112/76 05/18/24 16:45 Pulse Oximetry 100 05/18/24 16:45 Oxygen Delivery Room Air 05/18/24 16:45 Critical Care Time Critical Care Time Critical Care Time: No Discharge Plan Discharge Clinical Impression: Worried well Patient Disposition: Home, Self-Care Condition: Stable Additional Instructions: The physical exam of your legs today is normal. If you develop any color change such as red, garduno, purple or blue, or any swelling, please go to the emergency room for further evaluation. Patient Language: [place]ese Prescriptions: No Action albuterol sulfate 90 mcg/actuation HFA aerosol inhaler 1 inh inhalation Q4H PRN (Reason: Shortness Of Breath) alprazolam 1 mg tablet 1 mg PO DAILY PRN (Reason: Anxiety) levothyroxine 175 mcg capsule 175 mcg PO DAILY bupropion HCl 150 mg tablet sustained-release 12 hr 150 mg PO DAILY hydroxyzine pamoate 50 mg capsule 50 mg PO BID lamotrigine 25 mg tablet 50 mg PO DAILY clonidine HCl 0.2 mg tablet 0.2 mg PO HS cyanocobalamin (vitamin B-12) 1,000 mcg/mL solution 1,000 mcg IM MONTHLY ferrous sulfate [Iron (ferrous sulfate)] 325 mg (65 mg iron) Tablet 325 mg PO BID polyethylene glycol 3350 [Miralax] 17 gram/dose Powder 17 g PO DAILY PRN (Reason: Constipation) ondansetron 4 mg tablet,disintegrating 4 - 8 mg PO TID PRN (Reason: Nausea) fluticasone propionate 50 mcg/actuation spray,suspension 1 spray INTRANASAL DAILY diazepam 5 mg tablet 5 - 10 mg PO DAILY PRN (Reason: Anxiety) metoclopramide HCl 10 mg tablet 10 mg PO TIDWMEAL dexmethylphenidate [Focalin XR] 20 mg capsule,ER biphasic 50-50 20 mg PO DAILY cholecalciferol (vitamin D3) [Vitamin D3] 125 mcg (5,000 unit) Tablet 125 mcg PO DAILY Xarelto 20 mg tablet 20 mg PO DAILY Linzess 145 mcg capsule 145 mcg PO DAILY thiamine HCl (vitamin B1) 1 tab-cap PO DAILY vitamin A 1 cap PO DAILY zinc 1 tab-cap PO DAILY ergocalciferol (vitamin D2) 1,250 mcg (50,000 unit) capsule 1,250 mcg PO WEEKLY topiramate 100 mg tablet 150 mg PO DAILY ketoconazole 2 % shampoo 1 applic TOPICAL PRN PRN (Reason: DERMATITIS) cyclobenzaprine 10 mg tablet 10 mg PO TID PRN (Reason: muscle spasm) Qty: 20 0RF Follow-up/Referrals: Blayne,BRADY Higgins [Primary Care Provider] - Time of Disposition: 18:05
== END 2024-05-18 18:09 | disposition home or self-care (01) ==
PROVIDERS: Emergency Provider Nurse Practitioner; PCP Physician Assistant
DX: Z71.1 Person with feared health complaint in whom no diagnosis is made (principal); Z86.718 Personal history of other venous thrombosis and embolism; Z87.891 Personal history of nicotine dependence; Z95.820 Peripheral vascular angioplasty status with implants and grafts; Z79.01 Long term (current) use of anticoagulants
CPT/HCPCS: 99212; G0463

== ENCOUNTER 2024-07-15 20:42 | Emergency (ER) | payer OTHER, SELFPAY ==
--- NOTE | ~2024-07-15 | US_ITS ---
LEFT LOWER EXTREMITY VENOUS ULTRASOUND Ordering provider: Kely Larsen PA-C History: . r/o dvt . Comparison: None. FINDINGS: --COMMON FEMORAL: Thrombosed. --PROXIMAL SUPERFICIAL FEMORAL: Thrombosed. --DISTAL SUPERFICIAL FEMORAL: Thrombosed. --Profunda femoral: Thrombosed. --POPLITEAL: Patent and free of thrombus. Normal compressibility, phasic flow and augmentation. --POSTERIOR TIBIAL: Patent and free of thrombus. Normal compressibility, phasic flow and augmentation . IMPRESSION: deep vein thrombosis. Reviewed, dictated and finalized at location A. IMPRESSION: deep vein thrombosis.
--- NOTE | ~2024-07-15 | CT_ITS ---
EXAMINATION: CTA chest PE protocol DATE: 07/16/2024 00:04 INDICATION: Shortness of breath. TECHNIQUE: Computed tomography angiography (CTA) of the chest was performed with 100 mL Omnipaque-350 intravenous contrast timed to evaluate the pulmonary arteries. Coronal maximum intensity projection 3D-reconstructions were created by the technologist. Automated exposure control and iterative reconst ruction technique were employed. The dose-length product was 177.75 mGy-cm. COMPARISON: Chest CT 01/06/2024 FINDINGS: There is minimal atelectasis on the right. No pleural effusion. The heart size is normal. N o pericardial effusion. There is no pulmonary embolus. There is thoracic dextroscoliosis and mild spo ndylosis. IMPRESSION: 1. No pulmonary embolus. Reviewed, dictated and finalized at location A. IMPRESSION: 1. No pulmonary embolus.
--- OUTSIDE RECORDS SUMMARY | 2024-07-15 20:44 | XMS_ITS | Encounter Summary ---
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
--- OUTSIDE RECORDS SUMMARY | 2024-07-15 20:44 | XMS_ITS | Encounter Summary ---
Author Organization [facility] Healthcare Address [address] [place] [address] Care Team Providers Care Logistics Center Manager Name Role Phone Pierre Cisneros Primary Care Provider + Encounter Details Date Type Department Care Team (Late st Contact Info) Description 07/15/2024 Telephone Radiology [address] [place] [address] Naveed Churchill MD 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 She is s/p thrombectomy and stent placement 10/15/22 and re-stenting of the left common iliac vein 11/14/23. She states that her pain is to the point that it is difficult to walk. She was seen in clinic on 07/08/24 with similar complaints and ultrasound showed a patent stent and no LLE DVT. She was on Xarelto, but has stopped taking it for roughly one week in anticipation of surgery. Given the patient's acutely worsening symptoms while holding anticoagulation, she will plan to present to the ED for further evaluation and to evaluate for DVT. documented in this encounter Plan of Treatment Not on file documented as of this encounter Visit Diagnoses Not on filedocumented in this encounter Care Teams Logistics Center Manager Relationship Specialty Start Date End Date Pierre Cisneros PA [address] [place] [id number] PCP - General Internal Medicine 09/04/23 documented as of this encounter
--- OUTSIDE RECORDS SUMMARY | 2024-07-15 20:44 | XMS_ITS | Encounter Summary ---
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 No answer, LM requesting a call back. NC direct line given. documented in this encounter Plan of Treatment Not on file documented as of this encounter Visit Diagnoses Not on filedocumented in this encounter Care Teams Fibreglass Laminator Relationship Specialty Start Date End Date Pierre Cisneros PA [facility] [place] [address] PCP - General Internal Medicine 09/04/23 documented as of this encounter
--- OUTSIDE RECORDS SUMMARY | 2024-07-15 20:44 | XMS_ITS | Clinical Summary ---
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 30 tablet 10/20/19 23 Active [...] Active Additional Information Patient not taking.Reported on 07/14/2024 oxyCODONE (ROXICODONE) 5 mg immediate release tabletIndications: [...] 02/11/20 Active gabapentin (NEURONTIN) 100 mg capsule 01/31/20 Active rivaroxaban (XARELTO) 20 mg tablet Take 1 tablet (20 mg total) by mouth daily with breakfast 30 tablet 3 03/11/20 24 Active cycloSPORINE (RESTASIS) 0.05 % ophthalmic emulsion ADMINISTER ONE DROP INTO BOTH EYES EVERY 12 HOURS DURING THE DAY FOR 12 MONTHS Active loteprednol (LOTEMAX) 0.5 % ophthalmic suspension SHAKE LIQUID AND INSTILL 1 DROP IN BOTH EYES TWICE DAILY DURING THE DAY Active propranoloL (INDERAL) 20 mg tablet TAKE 1/2 TO 1 TABLET BY MOUTH DAILY NEEDED FOR TREMORS Active Active Problems Problem Noted Date Diagnosed Date Iron deficiency anemia 07/14/2024 Obsessive-compulsive disorder 07/08/2024 Posttraumatic stress disorder 07/08/2024 Deviated nasal septum 06/23/2024 Restless legs 05/04/2024 Dysfunction of both eustachian tubes 05/03/2024 Dysfunction of left eustachian tube 05/03/2024 Hypertrophy of nasal turbinates 05/03/2024 Purpura 04/21/2024 Overview (07/08/2024): from the neck down Acute sinusitis 12/31/2023 Hyperlipidemia 12/06/2023 Insomnia 12/06/2023 Overactive bladder 12/06/2023 Painful urging to urinate 12/06/2023 Acute otitis media 12/06/2023 May-Thurner syndrome 11/14/2023 Assessment & Plan (11/15/2023 1:26 PM CDT): S/p left iliac venogram, right iliac venogram and left common iliac artery stenting with Interventional Radiology She tolerated the procedure She was started on Plavix + xarelto by IR Chronic low back pain 11/11/2023 Sinusitis 10/28/2023 Blood coagulation disorder 10/15/2023 Pain in lower limb 10/15/2023 Arthralgia of both knees 09/30/2023 Loss of hair 09/30/2023 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 08/15/2023 Dysuria 08/14/2023 Positive antinuclear antibody 05/29/2023 COVID-19 04/03/2023 Chronic abdominal pain 02/25/2023 Seborrheic dermatitis of scalp 02/25/2023 Seizure disorder 02/25/2023 Assessment & Plan (11/14/2023 6:59 PM [...] 11/26/2022 Nausea 11/19/2022 Deep vein thrombosis (DVT) 11/16/2022 Deep venous thrombosis 11/16/2022 Chronic ethmoidal sinusitis 11/15/2022 Chronic maxillary [...] history of suicidal behavior 06/13/2022 Paranoid schizophrenia 06/13/2022 Moderate protein-calorie malnutrition 06/13/2022 Hypothyroidism, unspecified 06/13/2022 Other asthma 06/13/2022 Systemic lupus erythematosus , organ or system involvement unspecified 06/13/2022 Anxiety disorder, unspecified 06/13/2022 Bipolar disorder, current ep isode depressed, mild or moderate severity, unspecified 06/13/2022 Delusional disorders 06/13/2022 Moderate protein-calorie mal nutrition (weight for age 60-74% of standard) 06/13/2022 Suicidal behavior 06/13/2022 Anorexia nervosa, binge-eating purging type 05/24 Delusional disorder 06/13/2022 Attention deficit hyperactivity disorder 023 Moderate recurrent major depression 06/13/2022 Systemic lupus erythematosus 06/13/2022 Mixed anxiety and depressive disorder 01/24/2021 Assessment & Plan (11/14/2023 6:59 PM CDT): Continue Wellbutrin Xanax p.r.n. continued Anxiety disorder 01/24/2021 MDD (major depressive disorder), single episode, moderate 11/22/2020 Carpal tunnel syndrome on left 09/14/2010 Overview (11/01/2020): Transient, intermittent and more with activity. Has braces. Seizure disorder 09/14/2010 Overview (11/01/2020): Questionable history; reports that [...] Overview (11/01/2020): With mesh Dr. Flynn at [facility] Tobacco use disorder complic ating , [...] superimposed severe Pre-E Lupus (systemic lupus erythematosus) 06/22/2010 Overview (11/01/2020): ?questionable. Pt states she [...] uria in Fe Malignant neoplasm of cervix 04/21/1997 Malignant tumor of cervix 04/21/1997 Encounters Date Type Department Care Team Description 07/15/2024 Telephone Radiology 1 [place] [address] Naveed Churchill MD 07/15/2024 Telephone [facility] Radiology 1 [place] [address] Becky Mtz, RN 07/14/2024 10:15 AM CDT Office Visit [facility] Hematology [address] Floor 6 [place] [phone] Anna Rizzo MD Anemia, unspecified type (Primary Dx); Iron deficiency anemia, unspecified iron deficiency anemia type 07/14/2024 9:30 AM CDT Lab [facility] - Lab Collection [address] [facility] Floor 6 [place] [address] Iron deficiency anemia, unspecified iron deficiency anemia type 07/14/2024 Telephone [facility] Radiology 1 [place] [address] Becky Mtz, YANET 07/13/2024 Telephone [facility] Radiology 1 [place] [address] Becky Mtz, RN 07/13/2024 Orders Only [facility] Radiology [address] [place] [address] Becky Mtz, RN May-Thurner syndrome (Primary Dx) 07/08/2024 1:00 PM CDT Office Visit [facility] Radiology, Interventional Radiology [address] [place] [phone] Varsha Lizarraga PA May-Thurner syndrome (Primary Dx); Deep venous thrombosis (HCC); Positive antinuclear antibody 07/08/2024 11:00 AM CDT Ancillary Procedure [facility] Vascular Lab [facility] [address] [facility] 8th [place] [address] [place] [address] May-Thurner syndrome 06/26/2024 Telephone [facility] Radiology [address] [place] [address] Becky Mtz, RN 06/25/2024 Telephone [facility] Radiology 1 [place] [address] Becky Mtz, RN 06/22/2024 Telephone [facility] Radiology 1 [place] [address] Becky Mtz, RN 06/19/2024 Telephone [facility] Radiology, Interventional Radiology [address] [place] [address] Becky Olivo, RN Appointment 06/11/2024 Telephone [facility] Radiology 1 [place] [address] Becky Mtz, RN 06/10/2024 Telephone [facility] Radiology [address] [place] [address] Becky Mtz, RN 05/25/2024 Telephone Obstetrics [facility] Gynecology Clinic [address] [facility] 3rd Floor [address] [place] [phone] Caryl Nash LPN 05/20/2024 Telephone [facility] Rheumatology [address] [place] [address] [address] [place] [address] Ac Mendiola, AMIRA from Last 3 Months Immunizations Immunization Administration Dates Next Due HPV, Unspecified 02/28/2009,05/07/2007, 7,10/02/2006 Influenza, Unspecified 01/16/2011 PPD TEST 07/25/2022 Tdap 04/22/2009 Surgical History Surgery Date Site/Laterality Comments HERNIA REPAIR 04/22/2008 - 04/21/2009 SINUS SURGERY 01/20/2023 - 02/19/2023 ANGIOPLASTY / STENTING FEMORAL 09/20/2022 - 10/19/2022 Shira zambrano LLNany Medical History Medical History Date Comments Cellulitis [...] on file 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 Gender Identity Female 10/24/2023 9:52 AM CDT [...] Reading Time Taken Comments Blood Pressure 100/69 07/14/2024 9:38 AM CDT Pulse 82 07/14/2024 9:38 AM CDT Temperature 36.6 C (97.8 F) 07/14/2024 9:38 AM CDT Respiratory Rate 18 07/14/2024 9:38 AM CDT Oxygen Saturation 100% 07/14/2024 9:38 AM CDT Inhaled Oxygen Concentration - - Weight 62.1 kg (137 lb) 07/08/2024 12:05 PM CDT Height 165.1 cm (5' 5 ) 07/14/2024 9:38 AM CDT Body Mass Index 22.8 07/08/2024 12:05 PM CDT Plan of Treatment Health Maintenance Due Date Last Done Comments Depression Screening 1980 Hepatitis C Screening 1980 Varicella Vaccines (1 of 2 - 13+ 2-dose series) 1994 Hepatitis B Screening 08/19/1999 Regular Well Visit/Exam 18-64 08/19/1999 Pneumococcal vaccine <65 (1 of 2 - PCV) 2000 DTaP/Tdap/Td Vaccine (2 - Td or Tdap) 04/22/2019 04/22/2009 Breast Cancer Screening-Mammogram 05/10/2023 023 Cervical Cancer Screening 10/18/2023 10/17/2022 Covid-19 Vaccine (3 - 2023-2 5 season) 2023 05/06/2021, 12/13/2020 Influenza Vaccine (#1) 2023 01/16/2011 HPV Vaccines Completed 02/28/2009, 04/22, 01/21/2007, Additional history exists Medical Devices Implanted Type Area Senior Qa Tester Device Identifier Shelf Expiration Date Model / Serial / Lot [employer] Abre 16mm 100mm Self Expand Rotate Thumbwheel Hemostatic Valve [id number] - [id number] Implanted:Qty: 1 on 10/15/2022 at [facility] [employer] 10/30/2024 [id number] / / [id number] [employer] Abre 12mm 120mm Self Expand Rotate Thumbwheel Hemostatic Valve [id number] - [id number] Implanted:Qty: 1 on 11/14/2023 at [facility] [employer] 01/16/2025 [id number] / / [id number] Procedures Procedure Name Priority Date/Time Associated Diagnosis Comments DIFFERENTIAL AUTO Routine 07/14/2024 9:3 1 AM CDT Iron deficiency anemia, unspecified iron deficiency anemia type CBC WITH AUTO DIFFERENTIAL Routine 07/14/2024 9:31 AM CDT Iron deficiency anemia, unspecified iron deficiency anemia type RETICULOCYTES Routine 07/14/2024 9:31 AM CDT Iron deficiency anemia, unspecified iron deficiency anemia type FERRITIN Routine 07/14/2024 9:31 AM CDT Iron deficiency anemia, unspecified iron deficiency anemia type IRON PROFILE W/ IBC Routine 07/14/2024 9 :31 AM CDT Iron deficiency anemia, unspecified iron deficiency anemia type US VEIN DUPLEX LOWER EXTREMITY LEFT LIMITED Schedule Routine, Read Routine (OP Routine) 07/08/2024 11:19 AM CDT May-Thurner syndrome PAP AND HIGH RISK HPV, REFLEX TO GENOTYPING Routine 10/17/2022 4:58 PM CDT from Last 3 Months or Most Recently Relevant to Health Maintenance Results * Differential, auto (07/14/2024 9:31 AM CDT) Neutrophil abs 2.5 1.5 - 6.5 K/cumm Comment:Testing performed by : [facility], [address] [place], [place] [id number] Lymphocyte abs 2.1 0.8 - 3.3 K/cumm [facility] Comment:Testing performed by : [facility], [address] [place] [address] Monocyte abs 0.6 0.2 - 0.8 K/cumm [facility] Comment:Testing performed by : [facility], [address] [place], [place] [phone] Eosinophil abs 0.2 0.0 - 0.5 K/cumm [facility] Comment:Testing performed by : [facility], [address] [place], [place] [phone] Basophil abs 0.0 0.0 - 0.1 K/cumm [facility] Comment:Testing performed by : [facility], [address] [place] [address] Neutrophil pct 45.7 % [facility] Comment: Interpretive Data Percent cell count reference ranges are not reported, since discordance with absolute values may lead to misinterpretation of CBC data. Current Interpretive Data was last revised on 2017. Testing performed by: [facility], [address] [place] [phone] Lymphocyte pct 39.3 % [facility] Comment: Interpretive Data Percent cell count reference ranges are not reported, since discordance with absolute values may lead to misinterpretation of CBC data. Current Interpretive Data was last revised on 2017. Testing performed by: [facility], [address] [place] [phone] Monocyte pct 10.8 % TEZ AVALOS Comment: Interpretive Data Percent cell count reference ranges are not reported, since discordance with absolute values may lead to misinterpretation of CBC data. Current Interpretive Data was last revised on 2017. Testing performed by: [facility], [address] [place], [place] [phone] Eosinophil pct 3.4 % TEZ AVALOS Comment: Interpretive Data Percent cell count reference ranges are not reported, since discordance with absolute values may lead to misinterpretation of CBC data. Current Interpretive Data was last revised on 2017. Testing performed by: [facility], [address] [place] [phone] Basophil pct 0.8 % TEZ AVALOS Comment: Interpretive Data Percent cell count reference ranges are not reported, since discordance with absolute values may lead to misinterpretation of CBC data. Current Interpretive Data was last revised on 2017. Testing performed by: [facility], [address] [place] [address] Blood 07/14/2024 9:31 AM CDT 07/14/2024 9:39 AM CDT us Anna Rizzo MD LAB BLOOD ORDERABLES Final Result [facility] Department [place] [address] * (ABNORMAL) CBC with auto differential (07/14/2024 9:31 AM CDT) WBC 5.4 3.8 - 9.9 K/cumm Comment:Testing performed by : [facility], [address] [place] [address] Hgb 10.3(L) 11.9 - 15.5 g/dL TEZ AVALOS Comment:Testing performed by : [facility], [address] [place] [address] Hct 32.2(L) 35.6 - 45.5 % CERNER BJ Comment:Testing performed by : [facility], [address] [place] [address] Plt 304 150 - 400 K/cumm CERNER BJ Comment:Testing performed by : [facility], [address] [place] [address] MPV 8.0 6.8 - 10.4 fL CERNER BJ Comment:Testing performed by : [facility], [address] [place] [address] RBC 4.10 3.90 - 5.20 M/cumm CERNER BJ Comment:Testing performed by : [facility], [address] [place] [address] MCV 78.6(L) 81.3 - 96.4 fL CERNER BJ Comment:Testing performed by : [facility], [address] [place] [address] MCH 25.1(L) 27.1 - 33.3 pg CERNER BJ Comment:Testing performed by : [facility], [address] [place] [address] MCHC 31.9(L) 32.3 - 35.7 g/dL CERNER BJ Comment:Testing performed by : [facility], [address] [place] [address] RDW CV 16.8(H) 11.1 - 14.9 % CERNER BJ Comment:Testing performed by : [facility], [address] [place] [address] NRBC abs 0.00 0.00 - 0.01 K/cumm CERNER BJ Comment:Testing performed by : [facility], [address] [place] [address] Blood 07/14/2024 9:31 AM CDT 07/14/2024 9:39 AM CDT Anna Rizzo MD LAB BLOOD ORDERABLES Final Result [facility] [place] [address] * Reticulocyte Count (07/14/2024 9:31 AM CDT) [facility] Retics, absolute 0.059 0.020 - 0.100 M/cumm Comment:Testing performed by : [facility], [address] [place] [phone] Retics 1.4 0.5 - 1.8 % [facility] Comment:Testing performed by : [facility], [address] [place] [phone] Blood 07/14/2024 9:31 AM CDT 07/14/2024 9:39 AM CDT us Anna Rizzo MD LAB BLOOD ORDERABLES Final Result Performing Organization Address [facility] Co de Phone Number [facility] [place] [address] * (ABNORMAL) Iron profile w/ IBC (07/14/2024 9:31 AM CDT) [facility] Iron 23(L) 35 - 145 mcg/dL TIBC 357 250 - 400 mcg/dL [facility] Transferrin saturation 6(L) 20 - 50 % [facility] Blood 07/14/2024 9:31 AM CDT 07/14/2024 9:42 AM CDT us Anna Rizzo MD LAB BLOOD ORDERABLES Final Result Performing Organization Address [facility] [place] [address] * (ABNORMAL) Ferritin (07/14/2024 9:31 AM CDT) [facility] Ferritin 12(L) 13 - 150 ng/mL Blood 07/14/2024 9:31 AM CDT 07/14/2024 9:42 AM CDT us Anna Rizzo MD LAB BLOOD ORDERABLES Final Result TEZ Kaufman [facility] Department of Laboratories [place], [place] [id number] * US VEIN DUPLEX LOWER EXTREMITY LEFT LIMITED, UNILATERAL (07/08/2024 11:19 AM CDT) Anatomical Region Laterality Modality Vascular Left Ultrasound 07/08/2024 10:5 8 AM CDT Narrative 07/10/2024 7:45 AM CDT [facility] - Department of Vascular Surgery, Vascular Laboratory [address] [place] [address] Lower Extremity Venous Ultrasound Report Patient Name: LUCIE PARKS : 1980 (43y 10m) Study Date: 07/08/2024 10:58:37 AM Gender: F Tech: Vickey CONRAD Location: [facility] Ref Provider: UMBERTO MAGANA Quality: Adequate Order Provider: UMBERTO MAGANA PROCEDURES: Vascular Report: Venous Duplex imaging was performed in the left lower extremity. The common femoral, femoral, popliteal, posterior tibial, peroneal veins were evaluated for patency, spontaneity and phasicity with Doppler, compression and augmentation maneuvers. Great saphenous vein proximal at the junction was evaluated with compression maneuvers. INDICATIONS: I87.1 Compression of vein. FINDINGS: Performing [employer]: Erica Conrad RVT. Left: Venous Doppler signals in the left lower extremity are within normal limits for spontaneity and phasicity and respond normally to augmentation maneuvers. No evidence of deep vein thrombus by duplex, proximal to the calf. Iliac Veins Left: Patent left external iliac vein, no evidence of thrombus. Comments: Contralateral common femoral vein is imaged for comparison and is patent. Unilateral (limited study) performed per M.D. order. CONCLUSIONS: 1. There is no evidence of acute deep vein thrombosis on the left. Noninvasive venous studies cannot rule out isolated calf vein obstruction. 2. Patent left external iliac vein, no evidence of thrombus. HISTORY: May-Thurner syndrome: s/p left iliac vein thrombectomy/stent-evaluate - PREVIOUS STUDIES: Previous study performed on 01/25/2023 (Neg. DVT). DISCLAIMER: The study images and the final report will be retained in the patient chart by the Vascular Laboratory for the legally required time period. This chart constitutes the legal record of any testing performed. ATTESTATION: I have reviewed and interpreted the pertinent images and measurements of this study. I attest to the conclusions in the final report that is provided above. Electronically Signed By: Rolf Nair MD [facility] [phone] 07/10/2024 7:16:00 AM CDT Procedure Note Rolf Nair MD - 07/10/2024 [facility] - Department of Vascular Surgery,Vascular Laboratory [address] [place] [address] Lower Extremity Venous Ultrasound Report Patient Name: LUCIE PARKS : 1980 (43y 10m) Study Date: 07/08/2024 10:58:37 AM Gender: F Tech: Vickey CONRAD Location: [facility] Ref Provider: UMBERTO MAGANA Quality: Adequate Order Provider: UMBERTO MAGANA PROCEDURES: Vascular Report: Venous Duplex imaging was performed in the left lower extremity. Thecommon femoral, femoral, popliteal, posterior tibial, peroneal veins were evaluated forpatency, spontaneity and phasicity with Doppler, compression and augmentationmaneuvers. Great saphenous vein proximal at the junction was evaluated with compressionmaneuvers. INDICATIONS: I87.1 Compression of vein. FINDINGS: Performing [employer]: Erica Conrad RVT. Left: Venous Doppler signals in the left lower extremity are within normallimits for spontaneity and phasicity and respond normally to augmentation maneuvers.No evidence of deep vein thrombus by duplex, proximal to the calf. Iliac Veins Left: Patent left external iliac vein, no evidence of thrombus. Comments: Contralateral common femoral vein is imaged for comparison and is patent.Unilateral (limited study) performed per M.D. order. CONCLUSIONS: 1. There is no evidence of acute deep vein thrombosis on the left.Noninvasive venous studies cannot rule out isolated calf vein obstruction. 2. Patent left external iliac vein, no evidence of thrombus. HISTORY: May-Thurner syndrome: s/p left iliac vein thrombectomy/stent-evaluate - PREVIOUS STUDIES: Previous study performed on 01/25/2023 (Neg. DVT). DISCLAIMER: The study images and the final report will be retained in the patientchart by the Vascular Laboratory for the legally required time period. This chartconstitutes the legal record of any testing performed. ATTESTATION: I have reviewed and interpreted the pertinent images and measurements ofthis study. I attest to the conclusions in the final report that is provided above. Electronically Signed By: Rolf Nair MD [facility] [phone] 07/10/2024 7:16:00 AM CDT Umberto Magana MD IM US PROCEDURES Final Result * Pap and High Risk HPV, reflex to Genotyping (10/17/2022 4:58 PM CDT) Thin prep (Pap test) 10/17/2022 4:58 PM CDT 10/17/2022 6:01 PM CDT Narrative PATHOLOGY [facility] - 10/25/2022 2:38 PM CDT EPIC results best viewed via link to PDF [facility] [place] [address] Note to Patients: This report may contain [...] the details. CYTOPATHOLOGY REPORT FINAL Patient Name: LUCIE PARKS Gender: Deborah : 1980 (Age: 42) Address: [place] [address] Hospital #: [id number] Service: Medical Location: [place] [address] Patient Type: [facility] Inpatient Taken: 10/17/2022 Received: 10/17/2022 Accessioned: 10/18/2022 Reported: 10/25/2022 Physician(s): Asia Bolden MD FINAL INTERPRETATION SOURCE OF SPECIMEN Liquid based Thin Prep pap with HPV: STATEMENT OF ADEQUACY - Satisfactory for evaluation - Endocervical cells/transformation zone sample present GENERAL CATEGORIZATION: - Negative for squamous intraepithelial lesion or malignancy Comments HPV Result: NEGATIVE for high risk types of Human Papilloma Virus (HPV) RNA This probe detects the presence of HPV types: 16, 18, 31, 33, 35, 39, 45, 51, 52, 56, 58, 59, 66 and 68. This HPV test was performed at [facility] in [place], [place] utilizing the Gen-Probe Aptima assay. This specimen has been rescreened in accordance with this laboratory's Front End Wheel Loader Operator Program. /10/25/2022 14:38 SANDI Gill(ASCP) Report Electronically Reviewed and [...] clinical information and biopsy results as indicated. [facility] Clinical Laboratory Improvement Amendments (CLIA) mandate that cytologic and histologic results be correlated for laboratory quality worker & improvement standards. FOR ALL HIGH-GRADE CASES we request submission of follow-up histological material and/or reports that have not been previously provided so that we may fulfill said required standards. Gross Description A. Liquid based Thin Prep pap with HPV: Cervical/vaginal - Screening ThinPrep Clinical Diagnosis and History Last Menstrual Period: not known The patient is a 42 year old woman with AUB. The HPV test was performed by [facility], [address] [place] [address]. Report Images and scanned documents, if included only viewable in PDF version The performance characteristics of some immunohistochemical stains, in-situ hybridization and fluorescence in-situ hybridization tests and immunophenotyping by flow cytometry cited in this report (if any) were determined by the Surgical Pathology Department at [facility] as part of an ongoing vice president quality assurance program and in compliance with federally mandated regulations drawn from the Clinical Laboratory Improvement Act of 1988 (CLIA '88). Some of these tests rely on the use of analyte specific reagents and are subject to specific labeling requirements by the [place] Food and Drug Administration. Such diagnostic tests may only be performed in a facility that is certified by the Department of Health and Human Services as a high complexity laboratory under CLIA '88. The FDA has determined that such clearance or approval is not necessary. This test is used for clinical purposes. It should not be regarded as investigational or for research. Nevertheless, federal rules concerning the medical use of analyte specific reagents require that the following disclaimer be attached to the report: This test was developed and its performance characteristics determined by the Surgical Pathology Department of [facility]. It has not been cleared or approved by the [place]. S. Food and Drug Administration. [facility] Santiago MD LAB CYTOLOGY O RDERABLES Final Result PATHOLOGY [facility] [address] Floor [place], [place] [phone] from Last 3 Months or Most Recently Relevant to Health Maintenance Insurance Advance Directives For more information, please contact: [phone] * Full Code (Latest Code Status on File) Date Activated Date Inactivated Comments 11/14/2023 5:19 PM 11/15/2023 7:00 PM * Full Code Date Activated Date Inactivated Comments 11/14/2023 9:40 AM 11/14/2023 5:19 PM * Full Code Date Activated Date Inactivated Comments 10/15/2022 2:44 PM 10/18/2022 7:48 PM Care Teams Terminal Supervisor Relationship Specialty Start Date End Date Pierre Cisneros PA [address] [place] [id number] PCP - General Internal Medicine 09/04/23
--- OUTSIDE RECORDS SUMMARY | 2024-07-15 20:44 | XMS_ITS | Data Portability ---
Author Organization [facility] [place] Address [address] [place] [address] Care Team Providers Care Integrated Marketing Intern Name Role Phone SARAH CHARLES Primary Care [...] be on contraception. need to verify with group home that she has her own decision making [...] re plan/FU after records received and reviewed. [email or web address] Not available 10/30/2022 22:06:01 Plan of Treatment Reminders Order Date Submit Date Provider Last Modified By Organization Details Last Modified Time Details Appointments None recorded. Lab hbcab (hepatitis B core Ab) igm, serum 2024 025 [facility] (Lab), [address], [place], [address], 5 11:04:23 HBsAg (hepatitis B surface Ag), serum 2024 025 [facility] (Lab), [address], [place], [address], 5 11:04:21 hepatitis C virus Ab, serum 2024 025 [facility] (Lab), [address], [place], [address], 5 11:04:21 HIV 1+2 AB + HIV 1 p24 Ag, qualitative immunoassay , serum 2024 025 [facility] (Lab), [address], [place], [address], 5 11:04:20 RPR (rapid plasma reagin), serum 2024 025 [facility] (Lab), [address], [place], [address], 5 11:04:22 culture, urine 2024 025 [facility] (Lab), [address], [place], [address], 5 11:04:24 CT + NG + TV, RNA, unspecified specimen 2024 025 [facility] (Lab), [address], [place], [address], 5 11:04:22 hbcab (hepatitis B core Ab) igm, serum 2023 024 [facility] (Lab), [address], [place], [address], 4 21:15:54 HBsAg (hepatitis B surface Ag), serum 2023 024 [facility] (Lab), [address] [facility], [place], [address], 4 21:15:52 hepatitis C virus Ab, serum 2023 024 [facility] (Lab), [address] [facility], [place], [address], 4 21:15:53 unlisted lab - HIV 1/2 antigen/ant ibody, reflex confirmatio n 2023 024 [facility] (Lab), [address] [facility], [place], [address], 4 21:15:53 RPR (rapid plasma reagin), serum 2023 024 [facility] (Lab), [address] [facility], [place], [address], 4 21:15:54 urinalysis, dipstick 2023 024 [facility] [place], [address], [place], [address], 4 11:41:46 test, urine 2023 024 june [place], [address], [place], [address], 4 11:27:35 Referral None recorded. Procedures None recorded. Surgeries None recorded. Imaging US, transvagina l 2023 024 [address] [place], [place], [address], 4 09:06:07 US, pelvis 2023 024 [facility], [place], [address], 4 17:10:44 US, pelvis, complete 2023 024 [facility] [place], [place], [address], 4 05:00:53 MAMMO, screening, digital, bilateral 2023 024 [facility], [address], [place], [address], 4 05:00:53 Medication Orders Macrobid 100 mg capsule 2024 025 [id number], [address] [facility], [place], [place], [id number], 5 16:10:33 metronidazo le 0.75 % (37.5 mg/5 gram) vaginal gel 2023 025 [id number], [address] [facility], [place], [place], [id number], 5 15:53:19 Patient TargetsNo targets recorded. Patient InstructionsNo instructions [...] t Abnor mal: No Resul ting Lab: [facility] [address] [facility] [address] Tel: CULTU RE ----- ----- ----- --- No growt h in 1 day (dete ction level of 10,00 0 colon ies / ml.) Not Available [facility] (Lab) [address] [facility], [place], [address], 09/01/2023 07:16:49 08/30/19 24 08/30/2023 CT/GC AND TRICH OMONA S VAGIN YARITZA (RRNA ), SWAB chlamydia trachomatis, PCR Negati ve negati ve Not Available [facility] (Lab) [address] [facility], [place], [address], 09/02/2023 11:42:49 08/30/19 24 08/30/2023 CT/GC AND TRICH OMONA S VAGIN YARITZA (RRNA ), SWAB neisseria gonorrhoeae, PCR Negati ve negati ve Not Available [facility] (Lab) [address] [facility], [place], [address], 09/02/2023 11:42:49 08/30/19 24 08/30/2023 CT/GC AND TRICH OMONA S VAGIN YARITZA (RRNA ), SWAB trichomonas vaginalis ribosomal RNA (rrna) Negati ve negati ve Not Available [facility] (Lab) [address] [facility], [place], [address], 09/02/2023 11:42:49 08/30/19 24 08/30/2023 VAGIN ITIS/ VAGIN OSIS, DNA PROBE niko sp. detection, direct probe Negati ve negati ve Not Available [facility] (Lab) [address] [facility], [place], [address], 09/02/2023 11:42:50 08/30/19 24 08/30/2023 VAGIN ITIS/ VAGIN OSIS, DNA PROBE gardnerella vag. detection, direct probe Negati ve negati ve Not Available [facility] (Lab) [address] [place], [address], 09/02/2023 11:42:50 08/30/19 24 08/30/2023 VAGIN ITIS/ VAGIN OSIS, DNA PROBE trichomonas vag. detection, direct probe Negati ve negati ve Not Available [facility] (Lab) [address], [place], [address], 09/02/2023 11:42:50 08/30/19 24 08/30/2023 HEPAT ITIS B SURFA CE ANTIG EN hepatitis B surface antigen Non-re active non-re active This assay was perfo rmed using [employer] reage nts and test kits. Value s obtai felix with other assay metho ds or kits canno t be used inter lovelace eably . Not Available [facility] (Lab) [address], [place], [address], 09/02/2023 21:15:52 08/30/19 24 08/30/2023 HIV 1/2 ANTIG EN/AN TIBOD Y, REFLE X CONFI RMATI ON HIV antigen/anti body Nonrea ctive nonrea ctive HIV-1 antig en and HIV-1 /HIV- 2 antib odies were not detec anamika. No labor atory evide nce of HIV infec tion. Not Available [facility] (Lab) [address], [place], [address], 09/02/2023 21:15:53 08/30/19 24 08/30/2023 HEPAT ITIS C ANTIB LAYTON SCREE N, REFLE X TO CONFI RMATI ON hepatitis C antibody Non-re active non-re active Antib odies to HCV Not Detec anamika, does not exclu de the possi bilit y of expos ure to HCV. Not Available [facility] (Lab) [address], [place], [address], 09/02/2023 21:15:53 08/30/19 24 08/30/2023 RPR SCREE N, REFLE X TITER /CONF IRMAT ION RPR screen Nonrea ctive nonrea ctive Not Available [facility] (Lab) [address], [place], [address], 09/02/2023 21:15:54 08/30/19 24 08/30/2023 HEPAT ITIS B CORE, IGM hepatitis B core IgM antibody Negati ve negati ve Not Available [facility] (Lab) [address], [place], [address], 09/02/2023 21:15:54 08/30/19 24 08/30/2023 pregn marija test, urine HCG negati ve Not Available [place] [address], [place], [address], 08/30/2023 11:21:14 09/03/19 24 09/03/2023 IMAGE GUIDE D PAP AND HPV REGAR DLESS image guided Pap, HPV regardless of Pap result SEE RESULT S BELOW CASE REPOR T: Cytol ogy Gynec ologi carlos enrique Repor t Case: [id number] Autho rohit Provi debbie: Alyssa Kam, SPENCER Colle cted: 09/02 1417 Order ing Locat ion: [place] [facility] Recei teja: 09/03 0101 First Scree n: Estelle Alarcon ret, CT Rescr een: Adolfo Levin, CT Speci men: Scree monica Pap - Image d, Cervi x STATE MENT OF ADEQU ACY: Satis facto ry for evalu ation Trans forma tion zone compo nent prese nt ----- ----- ----- ----- ----- ----- ----- ----- ----- ----- ----- ----- ----- ----- ----- ----- ----- ---- FINAL DIAGN OSIS: Negat vernon for Intra epith elial Caty cash or Alissa vizcarra (NIL) . Elect red graham d by Adolfo Levin, CT on 2023 at 10:30 AM ----- ----- ----- ----- ----- ----- ----- ----- ----- ----- ----- ----- ----- ----- ----- ----- ----- ---- HPV RESUL TS: HPV mRNA E6/E7 : No HPV mRNA Detec anamika NOTE: This high risk HPV mRNA assay detec ts fourt een high- risk HPV types (16, 18, 31, 33, 35, 39, 45, 51, 52, 56, 58, 59, 66, 68) witho ut diffe renti ation . COMME NT: This speci men was revie wed by a Cytot echno logis t and/o r Patho logis t (as indic ated in this repor t) after evalu ation using the Thinp rep Imagi ng Syste m. CLINI CARLOS ENRI[facility] INFOR MATIO N: Menst rual Statu s: LMP (if appli cable ): Clini carlos enrique Histo ry/Pr eviou s Pap: Type of Neopl tate (if appli cable ): Signi fican t Clini carlos enrique Findi ngs: Other Histo ry: Hormo eduardo (if appli cable ): PAP EDUCA YULY L NOTE: The Pap Test is a scree monica test with an inher ent false negat vernon rate. Liqui d-bas ed sampl ing may decre ase, but will not elimi alma rosa, false negat vernon resul ts. A negat vernon resul t does not precl ude the prese nce and/o r devel opmen t of disea se, since the prese nce of abnor mal cells in the sampl e depen ds on the locat ion of the lesio n and sampl ing techn ique. Sawyer nued regul ar scree monica is the best metho d of cance r preve ntion . If repor anamika cytol ogic findi ng do not corre late with physi carlos enrique and/o r histo rical findi ngs, [facility] er inves tigat ion is recom sarita d, as clini fidel reno nted. Not Available [facility] (Lab) [address] [place], [address], 09/09/2023 11:34:36 06/24/1906/23/2024 HIV 1/2 ANTIG EN/AN TIBOD Y, REFLE X CONFI RMATI ON HIV antigen/anti body Nonrea ctive nonrea ctive HIV-1 antig en and HIV-1 /HIV- 2 antib odies were not detec anamika. No labor atory evide nce of HIV infec tion. Not Available [facility] (Lab) [address] [facility], [place], [address], 06/26/2024 11:04:20 06/24/1906/23/2024 HEPAT ITIS C ANTIB LAYTON SCREE N, REFLE X TO CONFI RMATI ON hepatitis C antibody Non-re active non-re active Antib odies to HCV Not Detec anamika, does not exclu de the possi bilit y of expos ure to HCV. Not Available [facility] (Lab) [address] [facility], [place], [address], 06/26/2024 11:04:21 06/24/19 25 06/23/2024 HEPAT ITIS B SURFA CE ANTIG EN hepatitis B surface antigen Non-re active non-re active This assay was perfo rmed using [employer] reage nts and test kits. Value s obtai felix with other assay metho ds or kits canno t be used inter lovelace eably . Not Available [facility] (Lab) [address] [facility], [place], [address], 06/26/2024 11:04:21 06/24/19 25 06/23/2024 CT/GC AND TRICH OMONA S VAGIN YARITZA (RRNA ), URINE chlamydia trachomatis, PCR Negati ve negati ve Not Available [facility] (Lab) [address] [place], [address], 06/26/2024 11:04:22 06/24/19 25 06/23/2024 CT/GC AND TRICH OMONA S VAGIN YARITZA (RRNA ), URINE neisseria gonorrhoeae, PCR Negati ve negati ve Not Available [facility] (Lab) [address] [facility], [place], [address], 06/26/2024 11:04:22 06/24/19 25 06/23/2024 CT/GC AND TRICH OMONA S VAGIN YARITZA (RRNA ), URINE trichomonas vaginalis ribosomal RNA (rrna) Negati ve negati ve Not Available [facility] (Lab) [address] [facility], [place], [address], 06/26/2024 11:04:22 06/24/19 25 06/23/2024 RPR SCREE N, REFLE X TITER /CONF IRMAT ION RPR qualitative Nonrea ctive nonrea ctive Not Available [facility] (Lab) [address] [facility], [place], [address], 06/26/2024 11:04:22 06/24/19 25 06/23/2024 CULTU RE: URINE result report SEE RESULT S BELOW abnormal Test: Cultu re: Urine Speci men Sourc e: Urine - Clean Catch Speci men Type: Urine Speci men Date: 1653 Resul t Date: 59 Resul t Statu s: Final resul t Abnor mal: Yes Whit wray Lab: [facility] [address] [facility] [address] Tel: CULTU RE ----- ----- ----- --- 10,00 0-25, 000 CFU/m l Esche yvonne a coli (Abno rmal) KAY PTIBI LITY ----- ----- ----- --- Esche yvonne a coli METHO D RONA ----- ----- ----- ----- ----- ---- ----- ----- ----- ----- ---- AMPIC ILLIN >16 ug/mL Resis tant AMPIC ILLIN /SULB ACTAM >16 ug/mL Resis tant AZTRE ONAM <=4 ug/mL Susce ptibl e CEFAZ SELENE 8 ug/mL Susce ptibl e CEFEP BECKY <=2 ug/mL Susce ptibl e CEFTA ZIDIM E <=1 ug/mL Susce ptibl e CEFTR IAXON E <=1 ug/mL Susce ptibl e CIPRO FLOXA MAT >2 ug/mL Resis tant GENTA MICIN <=2 ug/mL Susce ptibl e LEVOF LOXAC IN >4 ug/mL Resis tant MEROP ENEM <=1 ug/mL Susce ptibl e NITRO FURAN TOIN <=32 ug/mL Susce ptibl e PIPER ACILL IN/TA ZOBAC HARRELL <=8 ug/mL Susce ptibl e TOBRA MYCIN <=2 ug/mL Susce ptibl e TRIME THOPR IM/KLEIN LFAME THOXA ZOLE <=0.5 ug/mL Susce ptibl e Not Available [facility] (Lab) [address], [place], [address], 06/26/2024 11:04:23 06/24/19 25 06/23/2024 urina lysis , dipst ick Leukocytes ++ Not Available [facility] [address], [place], [address], 06/23/2024 17:26:17 06/24/19 25 06/23/2024 urina lysis , dipst ick Nitrite - Not Available [place] [address], [place], [address], 06/23/2024 17:26:17 06/24/19 25 06/23/2024 urina lysis , dipst ick pH 5 Not Available [place] [address], [place], [address], 06/23/2024 17:26:17 06/24/19 25 06/23/2024 urina lysis , dipst ick Blood +++ Not Available [place] [address], [place], [address], 06/23/2024 17:26:17 06/24/19 25 06/23/2024 urina lysis , dipst ick Specific [place] 1.030 Not Available [facility] [address], [place], [address], 06/23/2024 17:26:17 06/24/19 25 06/23/2024 urina lysis , dipst ick Bilirubin - Not Available [facility] [address], [place], [address], 06/23/2024 17:26:17 06/24/19 25 06/23/2024 urina lysis , dipst ick Glucose - Not Available [place] [address], [place], [address], 06/23/2024 17:26:17 06/24/19 25 06/23/2024 urina lysis , dipst ick Appearance Cloudy Not Available [facility] manri[facility] [address], [place], [address], 06/23/2024 17:26:17 06/24/19 25 06/23/2024 urina lysis , dipst ick Color Brown/ dark yellow Not Available [place] [address], [place], [address], 06/23/2024 17:26:17 06/24/19 25 06/23/2024 urina lysis , dipst ick Urobilinogen - Not Available [facility] [address], [place], [address], 06/23/2024 17:26:17 06/24/19 25 06/23/2024 urina lysis , dipst ick Protein ++ Not Available [place] [address], [place], [address], 06/23/2024 17:26:17 06/24/19 25 06/23/2024 urina lysis , dipst ick Ketone - Not Available [place] [address], [place], [address], 06/23/2024 17:26:17 09/06/19 24 09/09/2023 US, trans vagin al No observ ation record ed. [email or web address] [place] [address], [place], [address], 09/09/2023 10:16:24 09/06/19 24 09/09/2023 US, pelvi s No observ ation record ed. [email or web address] [place] [address], [place], [address], 09/09/2023 10:16:15 09/06/19 24 09/06/2023 US, pelvi s No observ ation record ed. [email or web address] [facility] [address], [place], [address], 09/24/2023 13:40:13 Result Notes None recorded. Problems Name Problem SNOMED Code Status Onset Date Resolution Date Notes Provider Name and Address Organization Details Recorded Time History of deep vein thrombosi s 881038753 Active 2022 Becky Ramirez MD [address], [place], [address], [facility] 14:46:37 Lupus anticoagu lant disorder 86444655 Active 2022 Becky Ramirez MD [address], [place], [address], [facility] 14:46:51 Hypothyro idism 95114881 Active 2022 Becky Ramirez MD [address], [place], [address], [facility] 3 14:46:59 Mixed anxiety and depressiv e disorder 825153201 Active 2022 severe- in group home [facility] Becky Ramirez MD [address], [place], [address], [facility] 3 14:47:27 History of loop electrosu rgical excision procedure 07185479156 102 Active 2022 Becky Ramirez MD [address], [place], [address], [facility] 3 21:51:42 Problem Notes None recorded. Procedures Surgical History Date Name Laterality Status Provider Name and Address Organization Details Recorded Time 4 Date of Last Pap Smear completed Lena Georgina [facility] 06/23/2024 15:55:20 3 repair of nose completed Chanda Oliver [facility] 08/30/2023 11:12:31 insertion of stent into iliac vein completed SAHRA Starr [address], [place], [address], [facility] 06/23/2024 16:06:17 Imaging Results Imaging Date Name Status LastModified by Organization Details LastModified Time 09/09/2023 US, transvaginal completed [email or web address] [facility] [address], [place], [address], 09/09/2023 10:16:24 09/09/2023 US, pelvis completed [email or web address] [place] [address], [place], [address], 09/09/2023 10:16:15 09/06/2023 US, pelvis completed [email or web address] [facility] [address], [place], [address], 09/24/2023 13:40:13 Procedure Notes None recorded. Medical Equipment None Reported. Allergies Allergen ID Allergen Name Allergen Category Reaction Reaction Severity Criticality Documentation Date Start Date Code Code System Note Provider Name and Address Organization Details Recorded Time 91370 Substance with sulfonami de structure and antibacte rial mechanism of action (substanc e) medicatio n Not available Not available Not available 08/30/2023 33629 8003 SNOMED Chanda Oliver [facility] 4 11:03:31 20107 ciproflox acin medicatio n Not available Not available Not available 08/30/2023 2551 RxNorm Alyssa Kam [facility] [address], [place], [address], [facility] 4 11:12:30 44938 magnesium salicylat e medicatio n Not available Not available Not available 08/30/2023 44708 RxNorm Alyssa Kam [facility] [address], [place], [address], [facility] 4 11:26:57 65705 morphine medicatio n Not available Not available Not available 08/30/2023 7052 RxNorm Alyssa Kam [facility] [address], [place], [address], [facility] 4 11:12:59 Medications Name Sig Start Date Stop Date Status Note LastModified by Organization Details LastModified Time cyclobenzap rine 10 mg tablet TAKE 1 TABLET BY MOUTH EVERY DAY AT BEDTIME active Not Available Not Available No t Available ziprasidone 80 mg capsule 08/29 completed Not Available Not Available Not Available tretinoin 0.1 % topical cream APPLY TOPICALLY TO THE AFFECTED AREA DAILY AT BEDTIME active Not Available Not Available No t Available lamotrigine 150 mg tablet TAKE 1 TABLET BY MOUTH EVERY DAY AT BEDTIME active Not Available Not Available No t Available levothyroxi ne 175 mcg tablet TAKE [...] Not Available clonidine HCl 0.1 mg tablet 06/23 completed Not Available Not Available Not Available venlafaxine ER 75 mg capsule,ext ended release 24 hr 08/29 completed Not Available Not Available Not Available doxycycline hyclate 100 mg capsule TAKE 1 CAPSULE BY MOUTH TWICE DAILY FOR 10 DAYS 06/23 completed Not Available Not Available Not Available venlafaxine 75 mg tablet 08/29 completed Not Available Not Available Not Available nicotine 14 mg/24 hr daily transdermal patch 10/30 completed Not Available Not Available Not Available ketoconazol e 2 % shampoo 08/29 completed Not Available Not Available Not Available cetirizine 10 mg tablet TAKE 1 TABLET BY MOUTH EVERY DAY DIRECTED active Not Available Not Available No t Available azithromyci n 250 mg tablet TK 2 TS PO ON DAY 1, THEN TK 1 T PO D FOR 4 DAYS 06/23 completed Not Available Not Available Not Available alprazolam 1 mg tablet TAKE 1 TABLET BY MOUTH TWICE DAILY NEEDED active Not Available Not Available No t Available fluconazole 150 mg tablet TAKE 1 TABLET BY MOUTH NOW. REPEAT IN 72 HOURS active Not Available Not Available No t Available hydrocodone 5 mg-acetamin ophen 325 mg tablet TAKE 1 TABLET BY MOUTH TWICE DAILY NEEDED FOR LEG PAIN 06/23 completed Not Available Not Available Not Available ondansetron HCl 8 mg tablet 08/29 completed Not Available Not Available Not Available naltrexone 50 mg tablet TAKE 1 TABLET BY MOUTH ONCE DAILY IN THE AM FOR 30 DAYS active Not Available Not Available No t Available phenazopyri dine 200 mg tablet TAKE 1 TABLET BY MOUTH THREE TIMES DAILY FOR 2 DAYS. FOR PAINFUL URINATION 08/29 completed Not Available Not Available Not Available metronidazo le 0.75 % (37.5 mg/5 gram) vaginal gel INSERT 1 APPLICATO RFUL VAGINALLY EVERY DAY AT BEDTIME FOR 5 DAYS 06/23 completed Not Available Not Available Not Available prednisone 20 mg tablet 06/23 completed Not Available Not Available Not Available dexamethaso ne 6 mg tablet 06/23 completed Not Available Not Available Not Available rizatriptan 10 mg tablet 10/30 completed Not Available Not Available Not Available clonidine HCl 0.3 mg tablet TAKE 1 TABLET BY MOUTH EVERY DAY AT BEDTIME active Not Available Not Available No t Available venlafaxine ER 150 mg capsule,ext ended release 24 hr 08/29 completed Not Available Not Available Not Available hydroxyzine pamoate 50 mg capsule TAKE 1 CAPSULE BY MOUTH TWICE DAILY NEEDED 06/23 completed Not Available Not Available Not Available topiramate 25 mg tablet 08/29 completed Not Available Not Available Not Available metronidazo le 500 mg tablet 10/30 completed Not Available Not Available Not Available hydroxyzine HCl 50 mg tablet 08/29 completed Not Available Not Available Not Available clopidogrel 75 mg tablet active Not Available Not Available Not Available ciprofloxac in 500 mg tablet TAKE 1 TABLET BY MOUTH EVERY 12 HOURS FOR 10 DAYS FOR DYSURIA 06/23 completed Not Available Not Available Not Available sulfamethox azole 800 mg-trimetho prim 160 mg tablet 10/30 completed Not Available Not Available Not Available ondansetron 8 mg disintegrat ing tablet 06/23 completed Not Available Not Available Not Available [...] Available Not Available alprazolam 0.5 mg tablet TAKE 1 TABLET BY MOUTH THREE TIMES DAILY active Not Available Not Available No t Available clonidine HCl 0.2 mg tablet TAKE [...] TABLET BY MOUTH EVERY 4 HOURS NEEDED 2024 active Not Available Not Available Not Avai lable venlafaxine 37.5 mg tablet 10/30 completed Not Available Not Available Not Available nortriptyli ne 10 mg capsule TAKE 1 CAPSULE BY MOUTH EVERY DAY AT BEDTIME active Not Available Not Available No t Available cyanocobala min (vit B-12) 1,000 mcg/mL injection solution INJECT 1 ML IN THE MUSCLE ONCE EVERY MONTH. 06/23 completed Not Available Not Available Not Available ropinirole 0.5 mg tablet 06/23 completed Not Available Not Available Not Available prednisone 50 mg tablet 06/23 completed Not Available Not Available Not Available lidocaine 5 % topical patch 08/29 completed Not Available Not Available Not Available promethazin e 25 mg tablet 10/30 completed Not Available Not Available Not Available levothyroxi ne 150 mcg tablet TAKE 1 TABLET BY MOUTH DAILY 06/23 completed Not Available Not Available Not Available nicotine 21 mg/24 hr daily transdermal patch 10/30 completed Not Available Not Available Not Available norgestimat e-ethinyl estradiol 0.18mg/0.21 5mg/0.25mg- 0.035mg(28) tablet 08/29 completed Not Available Not Available Not Available montelukast 10 mg tablet 10/30 completed Not Available Not Available Not Available hydroxyzine HCl 25 mg tablet TAKE 1 TABLET BY MOUTH EVERY DAY AT DINNER FOR ITCHY RASH 06/23 completed Not Available Not Available Not Available ziprasidone 40 mg capsule 08/29 completed Not Available Not Available Not Available gabapentin 100 mg capsule TAKE 1 CAPSULE BY MOUTH EVERY DAY AT BEDTIME FOR SLEEP OR ANXIETY 06/23 completed Not Available Not Available Not Available ergocalcife rol (vitamin D2) 1,250 mcg (50,000 unit) capsule 08/29 completed Not Available Not Available Not Available loteprednol etabonate 0.5 % eye drops,suspe nsion SHAKE LIQUID AND INSTILL 1 DROP IN BOTH EYES TWICE DAILY DURING THE DAY active Not Available Not Available No t Available azelastine 137 mcg (0.1 %) nasal spray USE 2 SPRAYS IN EACH NOSTRIL TWICE DAILY active Not Available Not Available No t Available levofloxaci n 750 mg tablet TAKE 1 TABLET BY MOUTH EVERY DAY FOR 10 DAYS 06/23 completed Not Available Not Available Not Available methylpredn isolone 4 mg tablets in a dose pack 10/30 completed Not Available Not Available Not Available albuterol sulfate HFA 90 mcg/actuati on aerosol inhaler INHALE 2 PUFFS BY MOUTH EVERY 8 HOURS NEEDED 06/23 completed Not Available Not Available Not Available dextroamphe tamine-amph etamine ER 30 mg 24hr capsule,ext end release TAKE 1 CAPSULE BY MOUTH EVERY DAY IN THE MORNING active Not Available Not Available No t Available propranolol 20 mg tablet TAKE 1/2 TO 1 TABLET BY MOUTH DAILY NEEDED FOR TREMORS active Not Available Not Available No t Available hydroxyzine HCl 10 mg tablet TAKE 1 TABLET BY MOUTH THREE TIMES DAILY NEEDED 06/23 completed Not Available Not Available Not Available ondansetron 4 mg disintegrat ing tablet DISSOLVE 1 TABLET ON THE TONGUE THREE TIMES DAILY FOR 10 DAYS NEEDED 08/29 completed Not Available Not Available Not Available topiramate 100 mg tablet TAKE 1 TABLET BY MOUTH TWICE DAILY active Not Available Not Available No t Available fluticasone propionate 50 mcg/actuati on nasal spray,suspe nsion active Not Available Not Available Not Available medroxyprog esterone 150 mg/mL intramuscul ar suspension 10/30 completed Not Available Not Available Not Available lamotrigine 100 mg tablet TAKE 1 TABLET BY MOUTH EVERY DAY IN THE MORNING FOR DEPRESSIO N OR ANXIETY 08/29 completed Not Available Not Available Not Available diazepam 5 mg tablet 06/23 completed Not Available Not Available Not Available metoclopram mili 10 mg tablet 08/29 completed Not Available Not Available Not Available levothyroxi ne 112 mcg tablet 10/30 completed Not Available Not Available Not Available amoxicillin 875 mg-potassiu m clavulanate 125 mg tablet TAKE 1 TABLET BY MOUTH EVERY 12 HOURS FOR 10 DAYS 06/23 completed Not Available Not Available Not Available nicotine 7 mg/24 hr daily transdermal patch 10/30 completed Not Available Not Available Not Available oxycodone 5 mg tablet active Not Available Not Available No t Available hydroxyzine pamoate 25 mg capsule 10/30 completed Not Available Not Available Not Available enoxaparin 60 mg/0.6 mL subcutaneou s syringe 08/29 completed Not Available Not Available Not Available medroxyprog esterone 150 mg/mL intramuscul ar syringe 10/30 completed Not Available Not Available Not Available cyclosporin e 0.05 % eye drops in a dropperette ADMINISTE R ONE DROP INTO BOTH EYES EVERY 12 HOURS DURING THE DAY FOR 12 MONTHS active Not Available Not Available No t Available aripiprazol e 5 mg tablet 10/30 completed Not Available Not Available Not Available bupropion HCl XL 300 mg 24 hr tablet, extended release TAKE 1 TABLET BY MOUTH EVERY DAY IN THE MORNING active Not Available Not Available No t Available bupropion HCl XL 150 mg 24 hr tablet, extended release TAKE 1 TABLET BY MOUTH EVERY DAY IN THE MORNING active Not Available Not Available No t Available topiramate 50 mg tablet 06/23 completed Not Available Not Available Not Available nitrofurant oin monohydrate /macrocryst als 100 mg capsule TAKE 1 CAPSULE BY MOUTH EVERY 12 HOURS FOR 7 DAYS active Not Available Not Available No t Available solifenacin 10 mg tablet TAKE 1 TABLET BY MOUTH EVERY DAY 06/23 completed Not Available Not Available Not Available Focalin XR 20 mg capsule,ext ended release 06/23 completed Not Available Not Available Not Available pregabalin 50 mg capsule 06/23 completed Not Available Not Available Not Available aripiprazol e 2 mg tablet TAKE 1 TABLET BY MOUTH EVERY DAY AT BEDTIME active Not Available Not Available No t Available levonorgest rel 1.5 mg tablet USE DIRECTED ON THE PACKAGE 06/23 completed Not Available Not Available Not Available Xarelto 20 mg tablet active Not Available Not Available No t Available Linzess 145 mcg capsule TAKE 1 CAPSULE BY MOUTH EVERY DAY active Not Available Not Available No t Available Vraylar 1.5 mg capsule 08/29 completed [...] Updated DateTime 10/30/2022 162.56 cm 24.2 kg/m2 64967.52 g 115 mm[Hg] 82 mm[Hg] Maria Victoriamakeda Serna [facility] 3 14:15:25 Date Recorded Body height Body mass index (BMI) Body weight Systolic blood pressure Diastolic blood pressure Provider Name and Address Organization Details Last Updated DateTime 08/30/2023 162.56 cm 23 kg/m2 72817.38 g 107 mm[Hg] 71 mm[Hg] Chanda [facility] 4 10:59:25 Date Recorded Body height Body mass index (BMI) Body weight Systolic blood pressure Diastolic blood pressure Provider Name and Address Organization Details Last Updated DateTime 09/03/2023 162.56 cm 23.2 kg/m2 65704.97 g 105 mm[Hg] 70 mm[Hg] Chanda [facility] 4 14:44:23 Date Recorded Body height Body mass index (BMI) Body weight Systolic blood pressure Diastolic blood pressure Provider Name and Address Organization Details Last Updated DateTime 06/23/2024 162.56 cm 23.7 kg/m2 43618.75 g 124 mm[Hg] 85 mm[Hg] Lena Erickson [facility] 5 15:47:52 Social History Question Answer Notes LastModified by Organizat ion Details LastModified Time Tobacco Smoking Status Former Smoker Lena Erickson [facility] 06/23/2024 15:58:31 What Is Your Level Of Alcohol Consumption? [...] Or The Highest Degree You Have Received? [id number] Information not available 08/30/2023 What Is Your [...] Anxious, Or Unable To Sleep At Night)? [id number] Information not available 08/30/2023 Do You Use Any Illicit Or Recreational Drugs? No Information not available 10/30/2022 Do You Use Sunscreen Routinely? No Information not available 08/30/2023 Has Tobacco Cessation Counseling Been Provided? No Information not available 10/30/2022 Have You Used IV Drugs? No Information not available 08/30/2023 Do You Or Have You Ever Used Any Other Forms Of Tobacco Or Nicotine? No Information not available 10/30/2022 Sex: Unknown Functional Status Question Answer Note LastModified by Organization D etails LastModified Time Are you able to walk? YESWOREST Information not available 08/30/2023 What is your exercise level? None Information not available 08/30/2023 Mental Status None [...] (Food, seasonal, environmental ) N Other Y Breast Cancer N Drug/Latex Allergies/Reactions N Blood Transfusion N Dermatologic Disorders N Lung Disease N Defects or Inherited Disease N Breast Problem N Gestational Diabetes N Hematologic disorders Y Anesthesia Complications N History of STI N Deep Vein Thrombosis Y Polycystic ovary syndrome N Anxiety Disorder N Autoimmune disease Y Arthritis N Infertility N Polyps N Acid Reflux (GERD) N History of abnormal pap N Cancer N Stroke Y Varicosities N Neurologic/Epilepsy Y Endometriosis N High Cholesterol Y Headaches N Fibromyalgia N Kidney Disease N Heart Problems N Kidney or Bladder Problems N Thyroid Problems Y GI Problems N Eating Disorder N Anemia [...] Date of Last Mammogram Date of LMP 06/12/2024 On BCP's at Conception? Y Was last menstrual period normal N STIs/STDs N HPV Vaccine N Colposcopy Duration of Flow (days) 7 Current Control Method None Age at First Child 22 Are cycles usually normal Y Date of Last Colonoscopy Frequency of Cycle (Q days) 28 Sexually Active? Y Menses Monthly Y Date of DEXA bone scan Age of first menstrual cycle 15 Date of Last Pap Smear 09/03/2023 Sexual Problems? Y LMP Approximate Obstetrics History GPAL:G 7 P 3 0 4 3 Type Value Full Term 3 Induced 1 Spontaneous 3 Living 3 Total 7 Past Encounters Encounter ID Performer Location Encounter Start Date Encounter Closed Date Diagnosis/Indication Diagnosis SNOMED-CT Code Diagnosis ICD10 Code Diagnosis Note [id number] Becky Ramirez MD [place] [address] [address] 10/30/2022 13:32:28 10/31/2022 10:34:27 Cervical fibroid 059102782 D25.9 History of deep vein thrombosis 324726910 Z86.718 History of loop electrosurgical excision procedure 9418588387 9102 Z98.890 Lupus anti coagulant disorder 89228549 D68.62 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 Pain in pelvis 35557110 R10.2 Anemia 319268321 D64.9 Irregular periods 001898 07 N92.6 Sterilizat ion requested 103301285 Z30.2 [id number] Alyssa Kam SPENCER [place] [address],[facility] [place] [address] 08/30/2023 10:55:52 08/30/2023 11:42:01 Urinary symptoms 754961979 R39.9 Screening procedure 2012 5006 Z13.9 Vaginitis 92973399 N76.0 vaginitis panel sentgc/ct/ trich testing sentHIV/He p B&C/Syphil is testing ordered per pt requestvul [facility] care guidelines discussed (d/c use of vagisil wash)UA - normal, cx sentrx sent for BV - r/b/a reviewedqu estions answereden couraged to schedule WWE Time spent in visit is a total of 25 mins with at least 50% of visit consisting of counseling and review of plan of care. Venereal d isease screening 720056596 Z11.3 Sexually t ransmitted infectious disease 7802343 A64 [id number] Alyssa Kam SPENCER [place] [address],[facility] [place] [address] 09/03/2023 14:35:05 09/03/2023 15:26:16 Gynecologic examination 11091894 Z01.419 WWEBC - condomspap updateddec lined STI screen (has had recent negative testing)ma mmogram order given - encouraged to schedulero utine labs UTD/PCP Suggested Calcium with Vitamin D daily. Patient advised to get an annual flu shot in the fall and she could obtain at [facility] or [facility] take care clinic. Also to obtain TDap vaccinatio n if you have not had one in the last 10 years. Recommend yearly mammograms . Encouraged monthly self breast exams. Encourage safe sexual practices, to use condoms and limit partners if not already in a monogamous relationsh ip. Engage in regular exercise. Avoid tobacco and illicit drugs. This lifestyle behavior pattern will lead to less health conditions and longer life span. If BMI greater than 25 dietary consult advised. All questions have been answered. Patient appears to understand informatio n, but if you have any questions please call or respond to this email. Screening for malignant neoplasm of breast 899433891 Z12.39 Lesion of cervix 6619564 01 N88.9 recommende d updated pelvic u/s for h/o cervical mass [id number] [facility] [address] [address] 09/06/2023 16:11:39 09/06/2023 16:59:46 Pain in pelvis 57753584 R10.2 [id number] SAHRA Starr [place] [address] [address] 06/23/2024 15:29:57 06/23/2024 16:18:06 Urinary symptoms 672637291 R39.9 Patient presents with symptoms of UTI. Advised to drink clear fluids, and take prescribed medication s as instructed .Rx sent for macrobid, r/b/a reviewedPa tient encouraged to follow up within 1 week if not improving. urine cx sent, STI testing sent per request, safe sexual practices discussed Time spent in visit is a total of 20 mins with at least 50% of visit consisting of counseling and review of plan of care. Venereal d isease screening 495887287 Z11.3 Sexually t ransmitted infectious disease 4277449 A64 Health Concerns Section Related Observation LastModified by Organization Detai ls LastModified Time None Recorded Concern Status LastModified by Organization Details LastModified Time None Recorded Advance Directives Directive None Recorded Payers Encounter Date Sequence Insurance Name Policy Number Policy Hager Covered Member ID Hager Member ID Guarantor Name 10/30/2022 1 [facility] ON OR AFTER 10/20/20 (MEDICAID REPLACEMENT - HMO) Sahra Parks [id number] Sahra Parks 08/30/2023 1 [facility] ON OR AFTER 10/20/20 (MEDICAID REPLACEMENT - HMO) Sahra Parks [id number] Sahra Parks 09/03/2023 1 [facility] ON OR AFTER 10/20/20 (MEDICAID REPLACEMENT - HMO) Sahra Parks [id number] Sahra Parks 09/06/2023 1 [facility] ON OR AFTER 10/20/20 (MEDICAID REPLACEMENT - HMO) Sahra Parks [id number] Sahra Parks 06/23/2024 1 [facility] ON OR AFTER 20 (MEDICAID REPLACEMENT - HMO) Sahra Parks [id number] Sahra Parks Notes Date Note Type Note Provider Name and Address Organization Details Recorded Time 3 text/html Patient is a 42yo who presents for several concerns. The patient lives at a group home in [place] due to a mental breakdown a couple years ago. She has a complicated psychiatric history and is a poor historian. 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 She reports bad cramping in her pelvis and was seen in ED in [place] for this in August and was treated for PID. She was found to have a cervical mass at this time. THen she was admitted to [facility] end of September for 3 days with [...] denies Becky Ramirez MD [address], [place], [address], [place] [facility] 10/30/2022 22:06:52 4 text/html 43yopresents for [...] hypothyroidism, hypercholesterolemia SAHRA Starr [address], [place], [address], [facility] 08/30/2023 11:41:23 4 text/html Annual GYNReported [...] use; Encourage regular mammograms starting age 41Notes:43yo [id number] - condomsnormal/monthly periods currentlyh/o abnormal pap smears [...] hypothyroidism, hypercholesterolemia SAHRA Starr [address], [place], [address], [facility] 09/03/2023 15:25:12 5 text/html 43yopresents with c/o urinary symptomsdysuria, frequencywould like STI testing today, concerned her partner may have another partner neg pelvic painneg flank painsneg n/v/fneg flu-like symptoms SA[address]RA [address], [place], [address], [facility] 06/24/2024 11:29:17 OBGyn Episode Ob Episode Information Episode Created Date Number of Fetuses Patient Bloodtype Patient rh Status Prepregnancy Weight lbs Domestic Partner Domestic Partner Phone Father Name Glass Cutter Hand Status 10/31/19 1 CLOSED Fetus Data First Name Last Name Admitted to NICU Weight (g) Sex Living Outcome Pediatric Complications Fetus ID Race Codes Race Delivery Type 2522.87 8704 M Vaginal Delivery Sonny Calculation Initial Sonny Date Initial Exam Date Initial Exam Provider Initial Ultrasound Date Last Menstrual Period Date Ultra Sound Weeks Gestation 0 Eighteen To Twenty Week Sonny Update Ultra Sound Date Fundal Height At Umbil Quickening Date Ultra Sound Latest Weeks Gestation Final Sonny Confirmed By Final Sonny Confirmed Date Final Sonny Date Ultra Sound Latest Days Gestation 0 [...] Domestic Partner Domestic Partner Phone Father Name Glass Cutter Hand Status 10/31/19 1 CLOSED Fetus Data First Name Last Name Admitted to NICU Weight (g) Sex Living Outcome Pediatric Complications Fetus ID Race Codes Race Delivery Type F Vaginal Delivery Sonny Calculation Initial Sonny Date Initial Exam Date Initial Exam Provider Initial Ultrasound Date Last Menstrual Period Date Ultra Sound Weeks Gestation 0 Eighteen To Twenty Week Sonny Update Ultra Sound Date Fundal Height At Umbil Quickening Date Ultra Sound Latest Weeks Gestation Final Sonny Confirmed By Final Sonny Confirmed Date Final Sonny Date Ultra Sound Latest Days Gestation 0 [...] Domestic Partner Domestic Partner Phone Father Name Glass Cutter Hand Status 10/31/19 1 CLOSED Fetus Data First Name Last Name Admitted to NICU Weight (g) Sex Living Outcome Pediatric Complications Fetus ID Race Codes Race Delivery Type M Vaginal Delivery Sonny Calculation Initial Sonny Date Initial Exam Date Initial Exam Provider Initial Ultrasound Date Last Menstrual Period Date Ultra Sound Weeks Gestation 0 Eighteen To Twenty Week Sonny Update Ultra Sound Date Fundal Height At Umbil Quickening Date Ultra Sound Latest Weeks Gestation Final Sonny Confirmed By Final Sonny Confirmed Date Final Sonny Date Ultra Sound Latest Days Gestation 0 [...]
--- OUTSIDE RECORDS SUMMARY | 2024-07-15 20:44 | XMS_ITS ---
Author Organization [facility] Address [address] [place] [address] Care Team Providers Care Wharf Hand Name Role Phone Pierre Cisneros Primary Care [...] ?triploidy with Dr. Alejandro, D&C [facility]; the other due to low [...] Overview (11/01/2020): With mesh Dr. Flynn at [facility] Tobacco use disorder complic ating , childbirth, [...] uria in May Malignant neoplasm of cervix 04/21/1997 Malignant tumor of cervix 04/21/1997 Current Treatment and Therapy Plans No current plan information found. Other Current Plans iron dextran (INFED) infusion* Plan Start Date:07/21/2024 Plan Provider:Anna Rizzo MD Linked Problems Iron deficiency anemia, unsp ecified iron deficiency anemia type Treatment Medications No medications scheduled. Past Treatment and Therapy Plans No past plan information found. Lifetime Dose Tracking * Chemical Lifetime Dose Automatic Entry Manual Entr y Fluoro Time 20.6 minutes 20.6 minutes 0 minutes Air kerma at the reference point (Ka,r) 166 mGy 1 66 mGy 0 mGy DLP 2,842 mGycm 2,842 mGycm 0 mGycm
--- OUTSIDE RECORDS SUMMARY | 2024-07-15 20:44 | XMS_ITS | Clinical Summary ---
Author Organization [facility] Address [address] [facility] [facility] [place] [address] Care Team Providers Care Quality Worker Name Role Phone Echo Pollard MD Primary Care Provider [phone] David Alicea MD Unavailable Source Comments [facility],non-owned Affiliates and Associated Physician Practices is amultiple site organization consisting of ambulatory clinics and hospital sitesin [place], [place], [place]. This disclosure is being madepursuant to the Care Everywhere program and may not contain all information available regarding this patient. Last updated 18.[facility] Allergies Active Allergy Reactions Criticality Noted Date [...] tablet by mouth 10/19/2022 Active HYDROcodone-aceta minophen ([place]) 5-325 MG tablet 05/10/2023 Active fluticasone propionate (Flonase) 50 MCG/ACT nasal spray 04/23/2023 Active fluconazole (Diflucan) 150 MG tablet 06/06/2022 Active vitamin D, ergocalciferol, (Drisdol) 1.25 MG (14297 UT) capsule 05/10/2023 Active enoxaparin (Lovenox) 60 [...] Transfer of Care (MD Hemanth); Co Management [facility] Problem Noted Date Diagnosed Date MDD (major [...] ?triploidy with Dr. Alejandro, D&C done at [facility]; the other due to low hormone so [...] Overview (07/06/2010): With mesh Dr. Flynn at [facility] Tobacco use complicating or childbirth 07/06/2010 Encounter [...] Due Human Papilloma Virus Vaccine 02/28/2009 INFLUENZA VACCINE 01/16/2011 TDAP (7yrs+) 04/22/2009 Family History Medical [...] Comments Blood Pressure 109/80 05/14/2023 1:41 PM [employer] Pulse 86 05/14/2023 1:41 PM [employer] Temperature 36.5 C (97.7 F) 12/05/2021 8:23 PM CDT Respiratory Rate 16 05/14/2023 1:41 PM [employer] Oxygen Saturation 94% 12/05/2021 9:00 PM CDT Inhaled Oxygen Concentration 21% 01/15/2011 1 2:06 AM CDT Weight 62.6 kg (138 lb) 05/14/2023 1:41 PM [employer] Height 160 cm (5' 3 ) 05/14/2023 1:41 PM [employer] Body Mass Index 24.45 05/14/2023 1:41 PM [employer] Plan of Treatment Health Maintenance Due Date Last Done Comments LIPID TESTING 1981 MAMMOGRAM 1981 HEPATITIS C SCREENING 08/14/1999 HEPATITIS B VACCINE (1 of 3 - 19+ 3-dose series) 2000 PNEUMOCOCCAL VACCINE (1 of 2 - PCV) 2000 HPV VACCINE (2 - 3-dose SCDM series) 03/28/2009 02/28/2009 DTAP/TDAP/TD VACCINES (2 - T d or Tdap) 04/22/2019 04/22/2009 COVID-19 VACCINE (3 - 2023-2 5 season) 2023 05/06/2021, 12/13/2020 INFLUENZA VACCINE (#1) 2023 01/16/2011 DEPRESSION SCREENING 04/22/2024 PAP SMEAR 09/02/2026 09/03/2023 ZOSTER VACCINE (1 of 2) 08/19/2031 HIV SCREENING Completed 08/30/2023 HIB VACCINE Aged Out No longer eligi ble based on patient's age to complete this topic MENINGOCOCCAL (Group B) VACCINE SHARED DECISION-MAKING Aged Out No longer eligible based on patient's age to complete this topic MENINGOCOCCAL GROUPS A/C/Y/W VACCINE Aged Out No longer eligible b ased on patient's age to complete this topic Advance Directives * FULL RESUSCITATION (Latest Code Status on File) Date Activated Date Inactivated Comments 01/12/2011 10:41 PM 01/17/2011 1:49 AM Care Teams Quality Worker Relationship Specialty Start Date End Date Echo Pollard MD [address] [place] [address] [address] [place] [id number] PCP - General Family Medicine 05/14/23 David Alicea MD [address] [place] [id number] Neurology 05/14/23
--- OUTSIDE RECORDS SUMMARY | 2024-07-15 20:44 | XMS_ITS | Referral Summary ---
Author Organization [facility] Address [address] [place] [address] Care Team Providers Care Associate Professor Of Law Name Role Phone Pierre Cisneros Primary Care Provider + Encounters Date Type Department Care Team Description 07/15/2024 Telephone Radiology 1 [place] [address] Naveed Churchill MD 07/15/2024 Telephone [facility] Radiology 1 [place] [address] Becky Mtz, RN 07/14/2024 Telephone [facility] Radiology 1 [place] [address] Becky Mtz, RN 07/14/2024 9:30 AM CDT Lab [facility] - Lab Collection [facility] [address] [address] Iron deficiency anemia, unspecified iron deficiency anemia type 07/14/2024 10:15 AM CDT Office Visit [facility] Hematology [address] [facility] [address] [place] [id number] Anna Rizzo MD Anemia, unspecified type (Primary Dx); Iron deficiency anemia, unspecified iron deficiency anemia type 07/13/2024 Telephone [facility] Radiology 1 [place] [address] Becky Mtz, RN 07/13/2024 Orders Only [facility] Radiology 1 [place] [address] Becky Mtz, RN May-Thurner syndrome (Primary Dx) 07/08/2024 1:00 PM CDT Office Visit [facility] Radiology, Interventional Radiology [address] [place] [address] Varsha Lizarraga PA May-Thurner syndrome (Primary Dx); Deep venous thrombosis (HCC); Positive antinuclear antibody 07/08/2024 11:00 AM CDT Ancillary Procedure [facility] Vascular Lab at [facility] [address] [place] [address] 8th [place] [address] May-Thurner syndrome 06/26/2024 Telephone [facility] Radiology [address] [place] [address] Becky Mtz, RN 06/25/2024 Telephone [facility] Radiology [address] [place] [address] Becky Mtz, RN 06/22/2024 Telephone [facility] Radiology [address] [place] [address] Becky Mtz, RN 06/19/2024 Telephone [facility] Radiology, Interventional Radiology [address] [address] Becky Olivo, YANET Appointment 06/11/2024 Telephone [facility] Radiology [address] [place] [address] Becky Mtz, RN 06/10/2024 Telephone [facility] Radiology [address] [place] [address] Becky tMz, RN 05/25/2024 Telephone Obstetrics [facility] Gynecology Clinic [address] [facility] 3rd Floor [address] [place] [phone] Caryl Nash LPN 05/20/2024 Telephone [facility] Rheumatology [address] [place] [address] [address] [place] [phone] Mendiola, Cellana T., RMA from Last 3 Months Allergies Active Allergy Reactions Criticality Noted Date Comments Ciprofloxacin Nausea only,Vomiting Reaction: Nausea, Vomiting, Latex Rash Medium 01/12/2011 rash Morphine Swelling,Anaphylaxis ,Unknown High 07/06/2010 Throat swelling Sulfa (Sulfonamide Antibiotics) Nausea And Vomiting,Rash,Nausea only,Vomiting Medium 07/06/2010 Medications levothyroxine (SYNTHROID) 175 mcg tablet Take 1 tablet (175 mcg total) by mouth cutting inspector before breakfast 30 tablet 10/20/19 23 Active [...] as needed for pain 10 tablet 11/15/19 Active cetirizine (ZyrTEC) 10 mg tablet Take 1 tablet (10 mg total) by mouth daily 12/31/19 Active clonidine HCl/chlorthalidone (CLONIDINE-CHLORTH ALIDONE ORAL) 10/31/19 [...] mouth 2 (two) times a day 11/11/19 Active levothyroxine (SYNTHROID) 150 mcg tablet Take 1 tablet (150 mcg total) by mouth daily 12/10/19 24 Active levoFLOXacin (LEVAQUIN) 750 mg tablet Take by mouth daily For ten days Active cyclobenzaprine (FLEXERIL) 10 mg tablet Take 1 tablet (10 mg total) by mouth nightly at bedtime 02/11/20 Active gabapentin (NEURONTIN) 100 mg capsule 01/31/20 24 Active rivaroxaban (XARELTO) 20 mg [...] Overview (11/01/2020): With mesh Dr. 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 Gender Identity Female 10/24/2023 9:52 AM CDT [...] 07/08/2024 12:05 PM CDT Plan of Treatment Not on file Medical Devices Implanted Type Area Bunk Assembler Device Identifier Shelf Expiration Date Model / Serial / Lot [employer] Abre 16mm 100mm Self Expand Rotate Thumbwheel Hemostatic Valve [id number] - [id number] Implanted:Qty: 1 on 10/15/2022 at [facility] [employer] 10/30/2024 [id number] / / [id number] [employer] Abre 12mm 120mm Self Expand Rotate Thumbwheel Hemostatic Valve [id number] - [id number] Implanted:Qty: 1 on 11/14/2023 at [facility] [employer] 01/16/2025 [id number] / / [id number] Procedures Procedure Name Priority Date/Time Associated Diagnosis [...] - 6.5 K/cumm Comment:Testing performed by : [facility], [address] [place], [place] [phone] Lymphocyte abs 2.1 0.8 - 3.3 K/cumm CERNER BJ Comment:Testing performed by : [facility], [address] [place] [phone] Monocyte abs 0.6 0.2 - 0.8 K/cumm CERNER BJ Comment:Testing performed by : [facility], [address] [place] [phone] Eosinophil abs 0.2 0.0 - 0.5 K/cumm CERNER [facility] Comment:Testing performed by : [facility], [address] [place] [phone] Basophil abs 0.0 0.0 - 0.1 K/cumm CERNER BJ Comment:Testing performed by : [facility], [address] [place] [phone] Neutrophil pct 45.7 % CERNORMA AVALOS Comment: Interpretive Data Percent cell count reference ranges are not reported, since discordance with absolute values may lead to misinterpretation of CBC data. Current Interpretive Data was last revised on 2017. Testing performed by: [facility], [address] [place] [phone] Lymphocyte pct 39.3 % CERNORMA AVALOS Comment: Interpretive Data Percent cell count reference ranges are not reported, since discordance with absolute values may lead to misinterpretation of CBC data. Current Interpretive Data was last revised on 2017. Testing performed by: [facility], [address] [place] [phone] Monocyte pct 10.8 % CERNORMA AVALOS Comment: Interpretive Data Percent cell count reference ranges are not reported, since discordance with absolute values may lead to misinterpretation of CBC data. Current Interpretive Data was last revised on 2017. Testing performed by: [facility], [address] [place] [phone] Eosinophil pct 3.4 % CERNORMA AVALOS Comment: Interpretive Data Percent cell count reference ranges are not reported, since discordance with absolute values may lead to misinterpretation of CBC data. Current Interpretive Data was last revised on 2017. Testing performed by: [facility], [address] [place] [phone] Basophil pct 0.8 % CERNORMA AVALOS Comment: Interpretive Data Percent cell count reference ranges are not reported, since discordance with absolute values may lead to misinterpretation of CBC data. Current Interpretive Data was last revised on 2017. Testing performed by: [facility], [address] [place] [phone] Blood 07/14/2024 9:31 AM CDT 07/14/2024 9:39 AM CDT Anna Rizzo MD LAB BLOOD ORDERABLES Final Result TEZ AVALOS [facility] Department [place] [address] * (ABNORMAL) CBC with auto differential (07/14/2024 9:31 AM CDT) WBC 5.4 3.8 - 9.9 K/cumm Comment:Testing performed by : [facility], [address] [place] [address] Hgb 10.3(L) 11.9 - 15.5 g/dL CERNORMA AVALOS Comment:Testing performed by : [facility], [address] [place] [address] Hct 32.2(L) 35.6 - 45.5 % TEZ AVALOS Comment:Testing performed by : [facility], [address] [place] [address] Plt 304 150 - 400 K/cumm TEZ AVALOS Comment:Testing performed by : [facility], [address] [place] [address] MPV 8.0 6.8 - 10.4 fL TEZ [facility] Comment:Testing performed by : [facility], [address] [place] [address] RBC 4.10 3.90 - 5.20 M/cumm TEZ AVALOS Comment:Testing performed by : [facility], [address] [place] [address] MCV 78.6(L) 81.3 - 96.4 fL CERNORMA AVALOS Comment:Testing performed by : [facility], [address] [place] [address] MCH 25.1(L) 27.1 - 33.3 pg CERNORMA BJ Comment:Testing performed by : [facility], [address] [place] [address] MCHC 31.9(L) 32.3 - 35.7 g/dL CERNORMA AVALOS Comment:Testing performed by : [facility], [address] [place] [address] RDW CV 16.8(H) 11.1 - 14.9 % [facility] Comment:Testing performed by : [facility], [address] [place], [place] [phone] NRBC abs 0.00 0.00 - 0.01 K/cumm [facility] Comment:Testing performed by : [facility], [address] [place] [phone] Blood 07/14/2024 9:31 AM CDT 07/14/2024 9:39 AM CDT Anna Rizzo MD LAB BLOOD ORDERABLES Final Result [facility] Department [place] [address] * Reticulocyte Count (07/14/2024 9:31 AM CDT) [facility], absolute 0.059 0.020 - 0.100 M/cumm Comment:Testing performed by : [facility], [address] [place], [place] [phone] Retics 1.4 0.5 - 1.8 % [facility] Comment:Testing performed by : [facility], [address] [place], [place] [phone] Blood 07/14/2024 9:31 AM CDT 07/14/2024 9:39 AM CDT Anna Rizzo MD LAB BLOOD ORDERABLES Final Result [facility] [place] [address] * (ABNORMAL) Iron profile w/ IBC (07/14/2024 9:31 AM CDT) Iron 23(L) 35 - 145 mcg/dL TIBC 357 250 - 400 mcg/dL [facility] Transferrin saturation 6(L) 20 - 50 % [facility] Blood 07/14/2024 9:31 AM CDT 07/14/2024 9:42 AM CDT Anna Rizzo MD LAB BLOOD ORDERABLES Final Result Performing Organization Address [facility] Co de Phone Number [facility] [place] [address] * (ABNORMAL) Ferritin (07/14/2024 9:31 AM CDT) Ferritin 12(L) 13 - 150 ng/mL Blood 07/14/2024 9:31 AM CDT 07/14/2024 9:42 AM CDT Anna Rizzo MD LAB BLOOD ORDERABLES Final Result Performing Organization Address [facility] Co de Phone Number [facility] [place] [address] * US VEIN DUPLEX LOWER EXTREMITY LEFT LIMITED, UNILATERAL (07/08/2024 11:19 AM CDT) Anatomical Region Laterality Modality Vascular Left Ultrasound 07/08/2024 10:5 8 AM CDT Narrative 07/10/2024 7:45 AM CDT [facility] - Department of Vascular Surgery, Vascular Laboratory [address] [place] [address] Lower Extremity Venous Ultrasound Report Patient Name: LUCIE PARKS : 1980 (43y 10m) Study Date: 07/08/2024 10:58:37 AM Gender: F Tech: Vickey CONRAD Location: [facility] Ref Provider: UMBERTO MAGANA Quality: Adequate Order [...] INDICATIONS: I87.1 Compression of vein. FINDINGS: Performing Java Portal Developer: Erica Conrad RVT. Left: Venous Doppler signals [...] above. Electronically Signed By: Rolf Nair MD [facility] [phone] 07/10/2024 7:16:00 AM CDT Procedure Note Rolf Nair MD - 07/10/2024 [facility] - Department of Vascular Surgery,Vascular Laboratory [address] [place] [address] Lower Extremity Venous Ultrasound Report Patient Name: LUCIE PARKS : 1980 (43y 10m) Study Date: 07/08/2024 10:58:37 AM Gender: F Tech: Vickey CONRAD Location: [facility] Provider: UMBERTO MAGANA Quality: Adequate Order Provider: UMBERTO MAGANA PROCEDURES: Vascular Report: Venous Duplex imaging was performed in the left lower extremity. Thecommon femoral, femoral, popliteal, posterior tibial, peroneal veins were evaluated forpatency, spontaneity and phasicity with Doppler, compression and augmentationmaneuvers. Great saphenous vein proximal at the junction was evaluated with compressionmaneuvers. INDICATIONS: I87.1 Compression of vein. FINDINGS: Performing Java Portal Developer: Erica Conrad RVT. Left: Venous Doppler signals [...] above. Electronically Signed By: Rolf Nair MD [facility] [phone] 07/10/2024 7:16:00 AM CDT Umberto Magana MD [facility] PROCEDURES Final Result * Pap and High Risk HPV, reflex to Genotyping (10/17/2022 4:58 PM CDT) Thin prep (Pap test) 10/17/2022 4:58 PM CDT 10/17/2022 6:01 PM CDT Narrative PATHOLOGY [facility] - 10/25/2022 2:38 PM CDT EPIC results best viewed via link to PDF [facility] [place] [address] Note to Patients: This report may contain [...] REPORT FINAL Patient Name: LUCIE PARKS Gender: F : 1980 (Age: 42) Address: [address] [place] [address] Hospital #: [id number] Service: Medical Location: [place] [id number] Patient Type: [facility] Inpatient Taken: 10/17/2022 Received: 10/17/2022 Accessioned: 10/18/2022 [...] 68. This HPV test was performed at [facility] in [place], [place] utilizing the Gen-Probe Aptima assay. This specimen has been rescreened in accordance with this laboratory's Clerical Clerk Program. /10/25/2022 14:38 SANDI Gill(ASCP) Report Electronically [...] histologic results be correlated for laboratory quality improvement manager & improvement standards. FOR ALL HIGH-GRADE CASES [...] AUB. The HPV test was performed by [facility], [address] [place] [address]. Report Images and scanned documents, if included only viewable in PDF version The performance characteristics of some immunohistochemical stains, in-situ hybridization and fluorescence in-situ hybridization tests and immunophenotyping by flow cytometry cited in this report (if any) were determined by the Surgical Pathology Department at [facility] as part of an ongoing auditor/quality program and in compliance with federally mandated [...] determined by the Surgical Pathology Department of [facility]. It has not been cleared or approved by the U. S. Food and Drug Administration. Jodee De Santiago MD LAB CYTOLOGY O RDERABLES Final Result PATHOLOGY [facility] 3rd Floor [place], [place] [phone] from Last 3 Months or Most Recently Relevant to Health Maintenance Insurance [facility] Advance Directives For more information, please contact: [phone] * Full Code (Latest Code Status on File) Date Activated Date Inactivated Comments 11/14/2023 5:19 PM 11/15/2023 7:00 PM * Full Code Date Activated Date Inactivated Comments 11/14/2023 9:40 AM 11/14/2023 5:19 PM * Full Code Date Activated Date Inactivated Comments 10/15/2022 2:44 PM 10/18/2022 7:48 PM Care Teams Associate Professor Of Law Relationship Specialty Start Date End Date Pierre Cisneros PA [address] [address] PCP - General Internal Medicine 09/04/23
--- OUTSIDE RECORDS SUMMARY | 2024-07-15 20:44 | XMS_ITS | Clinical Summary ---
Author Organization [facility] Address [address] [place] [address] Phone Care Team Providers Care Fiberglass Boat Finisher Name Role Phone Soila Santos MD Unavailable Echo Pollard MD Primary Care Provider [phone] Allergies Active Allergy Reactions Criticality Noted Date [...] mouth daily. 90 Tablet 1 4 Active Encounters Date Type Department Care Team Description 07/10/2024 Transcribe Orders [facility] Preop/Pacu II 1 [place] [address] Adair Daily MD Preop testing (Primary Dx) from Last 3 Months Immunizations Immunization Administration Dates Next Due Hpv, [...] 88 10/23/2023 1:19 PM CDT Temperature 36.4 C (97.5 F) 10/23/2023 1:19 PM CDT Respiratory Rate 22 10/23/2023 1:19 PM CDT Oxygen Saturation 100% 10/23/2023 1:19 PM CDT Inhaled Oxygen Concentration - - Weight 60.3 kg (133 lb) 10/23/2023 1:19 PM CDT Height 160.7 cm (5' 3.25 ) 04/29/2023 1:09 PM CS T Body Mass Index 23.37 04/29/2023 1:09 PM 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 Plan of Treatment Upcoming Encounters Date Type Department Care Team (Latest Contact Info) Description 07/21/2024 9:10 AM CDT [facility] Periop 1 [place] [address] Adair Daily MD [address] [place] [address] 07/21/2024 9:10 AM CDT - 07/21/2024 10:40 AM CDT [facility] 1 [place] [address] Adair Daily MD [address] [place] [address] NASAL SEPTOPLASTY WITH BALLOON ASSIST Scheduled Procedures Name Priority Associated Diagnoses Date/Ti me SEPTOPLASTY WITH BALLOON ASSIST DEVIATED NASAL SEPTUM, CHRONIC MAXILLARY SINUSITIS, CHRONIC ETHMOIDAL SINUSITIS 07/21/2024 9:10 AM CDT ENDOSCOPIC MAXILLARY ANTROSTOMY DEVIATED NASAL SEPTUM, CHRONIC MAXILLARY SINUSITIS, CHRONIC ETHMOIDAL SINUSITIS 07/21/2024 9:10 AM CDT ENDOSCOPY ETHMOIDECTOMY ANTROSTOMY DEVIATED NASAL SEPTUM, CHRONIC MAXILLARY SINUSITIS, CHRONIC ETHMOIDAL SINUSITIS 07/21/2024 9:10 AM CDT Health Maintenance Due Date Last Done Comments Mammogram 1980 Hepatitis B Immunization (1 of 3 - 19+ 3-dose series) 2000 Pap Smear 2002 Cervical Cancer Screening (CCS) 08/19/2011 HPV/Cotest 08/19/2011 Td Immunization Every 10 Years (Adults With 1 Tdap) 04/22/2019 04/22/2009 Discussion re Starting/Frequency of Mammograms 2021 Influenza Immunization (#1) 2023 01/16/2011 SARS-COV-2 Immunization ( season) 2023 05/06/2021, 12/13/2020 Respiratory Syncytial Virus [...] age to complete this topic Insurance MEDICAID [employer] Care Teams Fiberglass Boat Finisher Relationship Specialty Start Date End Date Echo Pollard MD [facility] [place] [place] [address] PCP - General Primary Care 01/01/23 Soila Santos MD [address] [address] Consulting Physician Endocrinology 12/17/22
[2024-07-15 20:45] VITALS: BP 143/110; PULSE 120; RESP 15; TEMP 36.6; O2SAT 100
--- OUTSIDE RECORDS SUMMARY | 2024-07-15 20:45 | XMS_ITS | Encounter Summary ---
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 No answer, LM requesting a call back. NC direct line given. documented in this encounter Plan of Treatment Not on file documented as of this encounter Visit Diagnoses Not on filedocumented in this encounter Care Teams Embedded Processor Relationship Specialty Start Date End Date Pierre Cisneros PA [facility] [place] [address] PCP - General Internal Medicine 09/04/23 documented as of this encounter
--- OUTSIDE RECORDS SUMMARY | 2024-07-15 20:45 | XMS_ITS ---
Author Organization [facility] Address [address] [place] [address] Care Team Providers Care Children'S Service Worker Name Role Phone Hector Solis Primary Care Provider [phone] Nadja Martinez [phone] REASON FOR VISIT rs frm 11/11;r/s from 11/05/23--follow up Social History Sex Assigned At : Social History Observation Description Sex Assigned At Female Encounters Encounter Location Date Provider Diagnosis [address] [place] [address] 11/19/2023 Hector Solis Plan Of Treatment No Information Progress Notes * Sahra PARKS RosamariaDOB:1980 (43 yo F)Acc No.[id number]:11/19/2023 UNLOCKED PROGRESS NOTE Progress Notes Patient: Sahra BARBOSA Provider: Rajinder Solis :1980 A ge:43 Y S ex:Female Date:11/19/2023 Address:[address] [place], [place] [id number] Subjective: * Chief Complaints: * 1 . Rs frm 11/11;r/s from 11/05/23--follow up. * Medical History: Objective: * Vitals: Assessment: Plan: * Treatment: * * Electronic signature of Paola Solis , [id number] on 07/15/2024 at 08:45 PM CDT Sign off status: Pending * Provider: Rajinder Solis Date: 0 11/19/2023 Generated for Swapnil phillips/Geeta/eTransmitting on: 0 07/15/2024 08:45 PM CDT
--- OUTSIDE RECORDS SUMMARY | 2024-07-15 20:45 | XMS_ITS ---
Author Organization [facility] Address [address] [place] [address] Care Team Providers Care Dag Sprayer Name Role Phone Hector Solis Primary Care Provider Nadja Martinez Unavailable [phone] Allergies Allergen (clinical drug ingredient) Drug/Non Drug [...] Status Risk Notes Problem Posttraumatic stress disorder (06131326) PTSD (post-traumati c stress disorder) (F43.10) Active confirmed Problem Moderate recurrent major depression (60750473) MDD (major depressive disorder), recurrent episode, moderate (F33.1) Active confirmed Problem Obsessive-compuls vernon disorder (730029359) OCD (obsessive compulsive disorder) (F42.9) Active confirmed Encounters Encounter Location Date Provider Diagnosis [address] [address] 11/22/2023 Nadja Martinez Schizoaffective disorder, bipolar type F25.0 ; WLILAM (generalized anxiety disorder) F41.1 ; PTSD (post-traumatic [...] or be administered own oral medications per [place] protocols. Provided informed consent with understanding of [...] or be administered own oral medications per [place] protocols. Provided informed consent with understanding of [...] Notes * Sahra PARKSDOB:1980 (43 yo F)Acc No.[id number]:11/22/2023 Patient: Yahir ROBERTO Sahra Blank Provider: Nathaniel Martinez DNP, PMHNP-BC, KEVIN :1980 A ge:43 Y S ex:Female Date:11/22/2023 Address:[address] [place] [address] Pcp:Hector Solis Subjective: * Chief Complaints: * 3 Month Psych F/U & Med Refill * HPI: D epression Screening: PHQ-9 L ittle interest or pleasure in doing things?Not at all F eeling down, depressed, or hopeless M ore than half the days T rouble falling or staying asleep, or sleeping too much M ore than half the days F eeling tired or having little energy M ore than half the days P oor appetite or overeating M ore than half the days F eeling bad about yourself or that you are a failure, or have let yourself or your family down M ore than half the days T rouble concentrating on things, such as reading the newspaper or watching television N ot at all M oving or speaking so slowly that other people could have noticed; or the opposite, being so fidgety or restless that you have been moving around a lot more than usual N ot at all T houghts that you would be better off or of hurting yourself in some way N ot at all T otal Score 1 0 I nterpretation M oderate Depression Intervention D epression Screening Findings P ositive F ollow-Up for Depression N o Referral necessary, patient involved in behavioral health treatment S creening: [place] Suicide Severity Rating Scale (LF) D o you want to initiate with S creener form I nterpretation: L ow Risk 6 . Suicide Behaviour: Have you ever done anything,started to do anything, or prepared to end your life? Y es W ere any of these in the past 3 months? N o 2 . Suicidal Thoughts: Have you actually had any thoughts of killing yourself? N o 1 . Wish to be : Have you wished you were or wished you could go to sleep and not wake up? N o P sych F/U: Patient presents for psychiatric follow-up visit. 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 [...] from ex . PTSD. Submitted information for disability.. Goals: luke zuniga going to Dr appointment. dealing with court eventually so she can see her children. . Coping skills? r caren. distraction with doctors appointments. cleaning. Effectiveness of medications: , Yes, patient reports they are effective. Medication Adherence: R eports taking medications as prescribed. Side effects to medications?: , Admits side effects to medications (specify): States she has gained weight. was told to eat less.. Sleep: A ppropriate sleep, more after the surgery. . ? Appetite W orking on eating less. . Depression (10 = most depressed) Derek aguilar she has been depressed since she was a teenager. . Anxiety (10 = most anxious) S ituational. Anger/Irritability (10 is highest): R eports outbursts of anger. . Suicidal ideation: D enies suicidal ideation.. Homicidal ideation: D enies homicidal ideation.. Hallucinations D enies hallucinations. Medical concerns or hospitalizations? F ollows up with PCP and specialists. Had surgery. Therapy? Y es. A bnormal Involuntary Movement Scale: Denies : Facial and Oral Movements M uscles of Facial Expression 0 - None L ips and Perioral Area 0 - None J aw 0 - None T ongue 0 - None Denies : Extremity Movements U pper (arms, wrists, hands, fingers) 0 - None L ower (legs, knees, ankles, toes) 0 - None Denies : Trunk Movements N nora, Shoulders and hips 0 - None Denies : Global Judgement S everity of abnormal movements overall 0 - None I ncapacitation due to abnormal movements 0 - None P atient's awareness of abnormal movements?0- No Awareness Denies : Dental Status C urrent problems with teeth and/or dentures?No A re dentures usually worn? N o E ndentia N o D o movements disappear with sleep? N o Denies : Subjective Experience . C SSRS Interpretation and Follow Up Plan: CSSRS Interpretation and Follow Up Plan. CSSRS Interpretation and Follow Up Plan M oderate or High risk requires selection of a follow up plan C SSRS No/Low: intervention not needed at this time * ROS: P sych ROS: Constitutional D enies. E yes D enies. E ars/Nose/Mouth/Throat D enies. R espiratory D enies. A llergic/Immunologic D enies.?Cardiovascular D enies. G I D enies. G U D enies. M usculoskeletal D enies. N eurological D enies. I ntegumentary D enies. E ndocrine D enies.?Hematological/Lymphatic D enies. P sychiatric- Depression. * Medical History: * Surgical History: D and C 2002Hernia 2005DVT 2022mayth * Hospitalization/Major Diagno stic Procedure: D enies Past Hospitalization * Family History: F ather: alive. M other: alive. 2 brother(s) , 2 sister(s) - healthy. 2 son(s) , 1 daughter(s) - healthy. . * Social History: P rimary Social History: L iving Arrangement L iving Arrangement: D ependent Living L iving with: O ther: Alcohol Use A lcohol Use Frequency: N ever Illicit Substance Usage I llicit Substance Usage: N o Employment Status E mployment Status: U nemployed * Medications: T akingXarelto 20 MG Tablet 1 tablet with food [...] scalpTaking Clopidogrel Bisulfate 75 MG Tablet Oral Not-TakingVenlafaxine HCl ER 150 MG Capsule Extended Release [...] reviewed and reconciled with the patient * Allergies: M zachary[Allergies Verified] Objective: * Vitals: * Examination: M ental Status Exam: SENSORIUM AND COGNITION A lert , Oriented to Person , Oriented to Place , Oriented to Time , Oriented to Situation. ATTENTION AND CONCENTRATION I mpaired attention/concentration. ATTITUDE AND BEHAVIOR U ncooperative/easily confused. MEMORY R ecent. AFFECT T earful, Sad. MOOD D ysphoric. SPEECH QUANTITY V erbose. SPEECH QUALITY S pontaneous , Rapid , Occasionally loud, but then would start whispering.. THOUGHT PROCESS , Circumstatial , Tangential. THOUGHT CONTENT C ongruent with affect. LANGUAGE W NL. SUICIDAL IDEATION D enies suicidal ideation. HOMICIDAL IDEATION D enies homicidal ideation. HALLUCINATIONS D enies hallucinations. INSIGHT F air. JUDGMENT F air. FUND OF KNOWLEDGE F air. ABILITY TO PARTICIPATE IN TREATMENT M oderate. WILLINGNESS TO PARTICIPATE IN TREATMENT M oderate. SIGNIFICANT FINDINGS REGARDING MENTAL STATUS N one. ? Assessment: * Assessment: 1. S chizoaffective disorder, bipolar type - F25.0 (Primary) 2 . G AD (generalized anxiety disorder) - F41.1 3 . P TSD (post-traumatic stress disorder) - F43.10 4 . M DD (major depressive disorder), recurrent episode, moderate - F33.1 5. O CD (obsessive compulsive disorder) - F42.9 Plan: * Treatment: 2. M DD (major depressive disorder), recurrent episode, moderate Refill buPROPion HCl ER (XL) Tablet Extended Release 24 Hour, 300 MG, 1 tablet in the morning, Oral, Once a day, 30 days, 30, Refills 2. 3. O CD (obsessive compulsive disorder) Refill cloNIDine HCl Tablet, 0.3 MG, 1 tablet, Orally, Once a day, 30 days, 30, Refills 2. ? 4. O thers Notes: Continue current medications. Will monitor for psychosis symptoms, but taking schizoaffective off the med list. Adding OCD and PTSD. Continue services as scheduled. Labs completed recently. May self-administer medications or be administered own oral medications per [place] protocols. Provided informed consent with understanding of side effects, adverse effects, risks and benefits as well as alternative treatments as previously discussed and with the above recommended medications & other aspects of the treatment program. Agrees to return sooner if symptoms worsen or suicidal or homicidal ideations occur. * Procedure Codes: * Follow Up: 3 Months (Reason: Medication management - can be telehealth appt.) * * Sign off status: Completed true * Provider: Nathaniel Martinez DNP, PMHNP-, EMU FARMER Date: 0 11/22/2023 Generated for Printing/Faxing/eTransmitting on: 0 07/15/2024 08:45 PM CDT History and Physical Notes * HPI (History [...] and specialists. Had surgery Therapy? Yes Screening [place] Suicide Sev erity Rating Scale (LF) Do you want to initiate with: Screener form Interpretation:: Low Risk 6. Suicide Behavior Question: Have you ever done anything,started to do anything, or prepared to end your life?: Yes Were any of these in the past 3 months?: No 2. Suicidal Thoughts: Have you actually had any thoughts of killing yourself?: No 1. Wish to be : Have you wished you were or wished you could go to sleep and not wake up?: No Do Not Use CSSRS Interpretation and Follow Up Plan CSSRS [...]
--- OUTSIDE RECORDS SUMMARY | 2024-07-15 20:45 | XMS_ITS | Encounter Summary ---
Author Organization 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 Gender Identity Female 10/24/2023 9:52 AM [...] deficiency anemia, unspecified iron deficiency anemia type documented in this encounter Results * Differential, auto (07/14/2024 9:31 AM CDT) Neutrophil abs 2.5 1.5 - 6.5 K/cumm Comment:Testing performed by : [facility], [address] [place] [address] Lymphocyte abs 2.1 0.8 - 3.3 K/cumm [facility] Comment:Testing performed by : [facility], [address] [place] [phone] Monocyte abs 0.6 0.2 - 0.8 K/cumm [facility] Comment:Testing performed by : [facility], [address] [place], [place] [phone] Eosinophil abs 0.2 0.0 - 0.5 K/cumm [facility] Comment:Testing performed by : [facility], [address], [place] [address] Basophil abs 0.0 0.0 - 0.1 K/cumm [facility] Comment:Testing performed by : [facility], [address] [place] [phone] Neutrophil pct 45.7 % [facility] Comment: Interpretive Data Percent cell count reference ranges are not reported, since discordance with absolute values may lead to misinterpretation of CBC data. Current Interpretive Data was last revised on 2017. Testing performed by: [facility], [address] [place] [phone] Lymphocyte pct 39.3 % [facility] Comment: Interpretive Data Percent cell count reference ranges are not reported, since discordance with absolute values may lead to misinterpretation of CBC data. Current Interpretive Data was last revised on 2017. Testing performed by: [facility], [address] [place] [phone] Monocyte pct 10.8 % [facility] Comment: Interpretive Data Percent cell count reference ranges are not reported, since discordance with absolute values may lead to misinterpretation of CBC data. Current Interpretive Data was last revised on 2017. Testing performed by: [facility], [address] [place], [place] [id number] Eosinophil pct 3.4 % [facility] Comment: Interpretive Data Percent cell count reference ranges are not reported, since discordance with absolute values may lead to misinterpretation of CBC data. Current Interpretive Data was last revised on 2017. Testing performed by: [facility], [address] [place] [phone] Basophil pct 0.8 % [facility] Comment: Interpretive Data Percent cell count reference ranges are not reported, since discordance with absolute values may lead to misinterpretation of CBC data. Current Interpretive Data was last revised on 2017. Testing performed by: [facility], [address] [place] [phone] Blood 07/14/2024 9:31 AM CDT 07/14/2024 9:39 AM CDT Anna Rizzo MD LAB BLOOD ORDERABLES Final Result [facility] One [facility] Department [place] [address] * (ABNORMAL) CBC with auto differential (07/14/2024 9:31 AM CDT) WBC 5.4 3.8 - 9.9 K/cumm Comment:Testing performed by : [facility], [address] [place] [address] Hgb 10.3(L) 11.9 - 15.5 g/dL [facility] Comment:Testing performed by : [facility], [address] [place] [address] Hct 32.2(L) 35.6 - 45.5 % [facility] Comment:Testing performed by : [facility], [address] [place] [address] Plt 304 150 - 400 K/cumm [facility] Comment:Testing performed by : [facility], [address] [place] [address] MPV 8.0 6.8 - 10.4 fL [facility] Comment:Testing performed by : [facility], [address] [place] [address] RBC 4.10 3.90 - 5.20 M/cumm [facility] Comment:Testing performed by : [facility], [address] [place] [address] MCV 78.6(L) 81.3 - 96.4 fL [facility] Comment:Testing performed by : [facility], [address] [place] [address] MCH 25.1(L) 27.1 - 33.3 pg [facility] Comment:Testing performed by : [facility], [address] [place] [address] MCHC 31.9(L) 32.3 - 35.7 g/dL [facility] Comment:Testing performed by : [facility], [address] [place], [place] [phone] RDW CV 16.8(H) 11.1 - 14.9 % [facility] Comment:Testing performed by : [facility], [address] [place], [place] [phone] NRBC abs 0.00 0.00 - 0.01 K/cumm [facility] Comment:Testing performed by : [facility], [address] [place] [phone] Blood 07/14/2024 9:31 AM CDT 07/14/2024 9:39 AM CDT Anna Rizzo MD LAB BLOOD ORDERABLES Final Result Performing Organization Address [facility] Co de Phone Number [facility] [place] [address] * Reticulocyte Count (07/14/2024 9:31 AM CDT) Pathologist [facility] Retics, absolute 0.059 0.020 - 0.100 M/cumm Comment:Testing performed by : [facility], [address] [place], [place] [phone] Retics 1.4 0.5 - 1.8 % [facility] Comment:Testing performed by : [facility], [address] [place] [phone] Blood 07/14/2024 9:31 AM CDT 07/14/2024 9:39 AM CDT Anna Rizzo MD LAB BLOOD ORDERABLES Final Result Performing Organization Address City/[facility] Co de Phone Number [facility] [place] [address] * (ABNORMAL) Ferritin (07/14/2024 9:31 AM CDT) Pathologist [facility] Ferritin 12(L) 13 - 150 ng/mL Blood 07/14/2024 9:31 AM CDT 07/14/2024 9:42 AM CDT us Anna Rizzo MD LAB BLOOD ORDERABLES Final Result Performing Organization Address City/State/[facility] Co de Phone Number [facility] Department [place] [address] * (ABNORMAL) Iron profile w/ IBC (07/14/2024 9:31 AM CDT) Iron 23(L) 35 - 145 mcg/dL TIBC 357 250 - 400 mcg/dL [facility] Transferrin saturation 6(L) 20 - 50 % [facility] Blood 07/14/2024 9:31 AM CDT 07/14/2024 9:42 AM CDT us Anna Rizzo MD LAB BLOOD ORDERABLES Final Result Performing Organization Address City/[facility] Co de Phone Number [facility] [place] [address] documented in this encounter Visit Diagnoses Diagnosis Iron deficiency anemia, unspecified iron deficiency anemia type documented in this encounter Care Teams Print Project Manager Relationship Specialty Start Date End Date Pierre Cisneros PA [address] [place] [id number] PCP - General Internal Medicine 09/04/23 documented as of this encounter
--- OUTSIDE RECORDS SUMMARY | 2024-07-15 20:45 | XMS_ITS | Encounter Summary ---
Author Organization [facility] Address [address] [place] [address] Phone Care Team Providers Care Access Tech Name Role Phone Pierre Cisneros Primary Care Provider + Encounter Details Date Type Department Care Team (Late st Contact Info) Description 07/14/2024 10:15 AM CDT Office Visit [facility] Hematology [address] 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 Gender Identity Female 10/24/2023 9:52 AM CDT [...] Concentration - - Weight - - Height 165.1 cm (5' 5 ) 07/14/2024 9:38 AM CDT Body Mass Index - - documented in this encounter Plan of Treatment Scheduled Orders Name Type Priority Associated Diagnoses Orde r Schedule CBC with auto differential Lab Routine Anemia, unspecified type Iron deficiency anemia, unspecified iron deficiency anemia type Expected: 01/12/2025, Expires: 07/14/2025 Reticulocyte Count Lab Routine Anemia, unspecified type Iron deficiency anemia, unspecified iron deficiency anemia type Expected: 01/12/2025, Expires: 07/14/2025 Ferritin Lab Routine Anemia, unspecified type Iron deficiency anemia, unspecified iron deficiency anemia type Expected: 01/12/2025, Expires: 07/14/2025 Iron profile w/ IBC Lab Routine Anemia, unspecified type Iron deficiency anemia, unspecified iron deficiency anemia type Expected: 01/12/2025, Expires: 07/14/2025 Comprehensive metabolic panel Lab Routine Anemia, unspecified type Iron deficiency anemia, unspecified iron deficiency anemia type Expected: 01/12/2025, Expires: 07/14/2025 documented as of this encounter Results * Reticulocyte Count (07/14/2024 9:31 AM CDT) Pathologist [facility] Retics, absolute 0.059 0.020 - 0.100 M/cumm Comment:Testing performed by : [facility], [address] [place] [address] Retics 1.4 0.5 - 1.8 % [facility] Comment:Testing performed by : [facility], [address] [place] [address] Blood 07/14/2024 9:31 AM CDT 07/14/2024 9:39 AM CDT us Anna Rizzo MD LAB BLOOD ORDERABLES Final Result [facility] Department [place] [address] * (ABNORMAL) CBC with auto differential (07/14/2024 9:31 AM CDT) [facility] WBC 5.4 3.8 - 9.9 K/cumm Comment:Testing performed by : [facility], [address] [place] [address] Hgb 10.3(L) 11.9 - 15.5 g/dL [facility] Comment:Testing performed by : [facility], [address] [place] [address] Hct 32.2(L) 35.6 - 45.5 % [facility] Comment:Testing performed by : [facility], [address] [place] [address] Plt 304 150 - 400 K/cumm [facility] Comment:Testing performed by : [facility], [address] [place] [address] MPV 8.0 6.8 - 10.4 fL [facility] Comment:Testing performed by : [facility], [address] [place] [address] RBC 4.10 3.90 - 5.20 M/cumm [facility] Comment:Testing performed by : [facility], [address] [place], [place] [phone] MCV 78.6(L) 81.3 - 96.4 fL [facility] Comment:Testing performed by : [facility], [address] [place], [place] [phone] MCH 25.1(L) 27.1 - 33.3 pg [facility] Comment:Testing performed by : [facility], [address] [place], [place] [phone] MCHC 31.9(L) 32.3 - 35.7 g/dL [facility] Comment:Testing performed by : [facility], [address] [place], [place] [phone] RDW CV 16.8(H) 11.1 - 14.9 % [facility] Comment:Testing performed by : [facility], [address] [place], [place] [phone] NRBC abs 0.00 0.00 - 0.01 K/cumm [facility] Comment:Testing performed by : [facility], [address] [place], [place] [phone] Blood 07/14/2024 9:31 AM CDT 07/14/2024 9:39 AM CDT us Anna Rizzo MD LAB BLOOD ORDERABLES Final Result [facility] [place] [address] * (ABNORMAL) Iron profile w/ IBC (07/14/2024 9:31 AM CDT) Iron 23(L) 35 - 145 mcg/dL TIBC 357 250 - 400 mcg/dL [facility] Transferrin saturation 6(L) 20 - 50 % [facility] Blood 07/14/2024 9:31 AM CDT 07/14/2024 9:42 AM CDT Anna Rizzo MD LAB BLOOD ORDERABLES Final Result [place] [address] * (ABNORMAL) Ferritin (07/14/2024 9:31 AM CDT) Ferritin 12(L) 13 - 150 ng/mL Blood 07/14/2024 9:31 AM CDT 07/14/2024 9:42 AM CDT Anna Rizzo MD LAB BLOOD ORDERABLES Final Result Performing Organization Address [facility] de Phone Number [facility] [place] [address] documented in this encounter Visit Diagnoses Diagnosis Anemia, unspecified type- Primary Iron deficiency anemia, unspecified iron deficiency anemia type documented in this encounter Historical Medications * This list may reflect changes made after this encounter. propranoloL (INDERAL) 20 mg tablet TAKE 1/2 TO 1 TABLET BY MOUTH DAILY NEEDED FOR TREMORS loteprednol (LOTEMAX) 0.5 % ophthalmic suspension SHAKE LIQUID AND INSTILL 1 DROP IN BOTH EYES TWICE DAILY DURING THE DAY cycloSPORINE (RESTASIS) 0.05 % ophthalmic emulsion ADMINISTER ONE DROP INTO BOTH EYES EVERY 12 HOURS DURING THE DAY FOR 12 MONTHS added in this encounter Orders Appointment Requests Count Last Ordered Date Fi rst Ordered Date ONCBCN CLINIC APPOINTMENT REQUEST 1 025 ONCBCN LAB APPOINTMENT 1 07/14/2024 documented in this encounter Care Teams Access Tech Relationship Specialty Start Date End Date Pierre Cisneros PA [address] [place] [address] PCP - General Internal Medicine 09/04/23 documented as of this encounter
--- OUTSIDE RECORDS SUMMARY | 2024-07-15 20:45 | XMS_ITS | Patient Health Record ---
Author Organization [facility] Address [address] [place] [address] Care Team Providers Care Chiller Operator Name Role Phone Hector Solis Primary Care Provider [phone] Nadja Martinez Unavailable [phone] Kin Melara Unavailable [phone] Allergies Allergen (clinical drug ingredient) Drug/Non Drug Allergy documented on EMR Reaction Allergy Type Onset Date Status morphine Morphine Unknown Drug Allergy Active Results Component Value Reference Range Notes Urinalysis In-House, Routine Reviewed date:11/12/2023 02:51:20 PM Interpretation: Performing Lab: Notes/Report: Urine-Color yellow Appearance cloudy Leukocytes neg Nitrite, Urine neg Urobilinogen,Semi-Qn .2 Protein neg pH 6 Occult Blood neg Specific [place] 1.02 Ketones neg Bilirubin neg Glucose neg Reason For Referral Reason SI. 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 Also sent info [...] W/U Status Risk Notes Problem Tobacco user (082078509) Nicotine dependence, unspecified, uncomplicated (F17.200) Active confirmed Problem Posttraumatic stress disorder (39370181) PTSD (post-traumatic stress disorder) (F43.10) Active confirmed Problem Chronic pain (30077275) Chronic pain (G89.29) Active confirmed Problem Generalized anxiety disorder (10598469) WILLAM (generalized anxiety disorder) (F41.1) Active confirmed Problem Moderate recurrent major depression (55740641) MDD (major depressive disorder), recurrent episode, moderate (F33.1) Active confirmed Problem Hypothyroidism (50273552) Hypothyroidism (acquired) (E03.9) Active confirmed Problem Obsessive-compulsi ve disorder (403494095) OCD (obsessive compulsive disorder) (F42.9) Active confirmed Problem Hypercoagulable state (80926949) Hypercoagulable state (D68.59) Active confirmed Vital Signs Heart Rate 73 /min 11/12/2023 Temperature 97.2 degrees Fahrenheit 09/12/2023 Respiratory Rate 16 /min 11/12/2023 Blood pressure diastolic 70 mm Hg 11/12/2023 Oximetry 99 % 11/12/2023 Height 65 in 11/12/2023 Blood pressure systolic 102 mm Hg 11/12/2023 Weight 136.2 lbs 11/12/2023 BMI 22.66 kg/m2 11/12/2023 Encounters Encounter Location Date Provider Diagnosis [address] [place] [address] 08/16/2023 Nadja Martinez Schizoaffective disorder, bipolar type F25.0 and WILLAM (generalized anxiety disorder) F41.1 [facility] [address] [place] [address] [place] [address] 09/12/2023 Nadja Martinez Schizoaffective disorder, bipolar type F25.0 and WILLAM (generalized anxiety disorder) F41.[address] [place] [address] 11/12/2023 Hector Solis Hematochezia K92.1 ; Chronic daily headache R51.9 ; Abnormal antinuclear antibody titer R76.8 ; Hypercoagulable state D68.59 ; Chronic pain G89.29 ; Hypothyroidism (acquired) E03.9 ; Dysuria R30.0 and Alopecia L65.[address] [place] [address] 11/22/2023 Nadja Martinez Schizoaffective disorder, bipolar type F25.0 ; WILLAM (generalized anxiety disorder) F41.1 ; PTSD (post-traumatic stress disorder) F43.10 ; MDD (major depressive disorder), recurrent episode, moderate F33.1 and OCD (obsessive compulsive disorder) F42.9 [facility] [address] [place] [address] 08/14/2023 Nadja Martinez [address] [place] [address] 09/10/2023 Hector Solis Assessments Encounter Date Diagnosis (ICD Code) Assessment Notes Treatment Notes Treatment Clinical Notes Section Notes 08/16/2023 Schizoaffective disorder, bipolar type (ICD-10 - F25.0) Increased Effexor to help with Depression. Referred to [facility]. Client calmed before the end of the call and contacted for safety and that she would picker feeder for Crisis. Which she did and they spoke with her ensuring safety. Continue services as scheduled. Labs completed recently. May self-administer medications or be administered own oral medications per [facility] protocols. Provided informed consent with understanding of [...] or be administered own oral medications per [facility] protocols. Provided informed consent with understanding of [...] COLONOSCOPY AFTER COMPLETION LF VASCULAR PROCEDURE AT [facility] 11/12/2023 Chronic daily headache (ICD-10 - R51.9) RESUME TOPIRAMATE, AVOID IBUPROFEN 11/22/2023 Schizoaffective disorder, bipolar type (ICD-10 - F25.0) 11/22/2023 WILLAM (generalized anxiety disorder) (ICD-10 - F41.1) 11/22/2023 PTSD (post-traumatic stress disorder) (ICD-10 - F43.10) 11/12/2023 Abnormal antinuclear antibody titer (ICD-10 - R76.8) KEEP RHEUM APPT 09/12/2023 WILLAM (generalized anxiety disorder) (ICD-10 - F41.1) 08/16/2023 WILLAM (generalized anxiety disorder) (ICD-10 - F41.1) 11/12/2023 Hypercoagulable state (ICD-10 - D68.59) F/U WITH HEME AND VASCULAR AT [facility] 11/22/2023 MDD (major depressive disorder), recurrent episode, moderate (ICD-10 - F33.1) 11/22/2023 OCD (obsessive compulsive disorder) (ICD-10 - F42.9) 11/12/2023 Chronic pain (ICD-10 - G89.29) 11/12/2023 Hypothyroidism (acquired) (ICD-10 - E03.9) SEES ENDO AT [facility] 11/12/2023 Dysuria (ICD-10 - R30.0) 11/12/2023 Alopecia (ICD-10 - L65.9) 11/12/2023 Other JACKI SIGNED FOR ALL RECORDS FROM [facility] FOR THE PAST 2 YEARS 11/22/2023 Other Continue current medications. Will monitor for psychosis symptoms, but taking schizoaffective off the med list. Adding OCD and PTSD. Continue services as scheduled. Labs completed recently. May self-administer medications or be administered own oral medications per [facility] protocols. Provided informed consent with understanding of [...] Insured Coverage Start Date Coverage End Date [employer] [facility] Attn Claims Department [address] [place] [id number] [id number] CharlySahra Self - patient is the insured 2 [employer] [address] [place] [phone] [id number] Shannon Parksah Self - patient is the insured 1 2 [employer] [address] [place] [phone] [id number] Charly Sahra Self - patient is the insured 1 2 [employer] Attn Claims Department [address] [place] [phone] CharlySahra Self - patient is the insured 2 Medical (General) History Medical History History ICD Code hypothyroidism. Depressive disorder F32.9 Psychosis, unspecified psychosis type F2 9 deep vein thrombosis Schizoaffective disorder, bipolar type F 25.0 Surgical History Surgery Date(Month/Year) D and C 2001 Hernia 2005 DVT 2022 Hospitalization History Reason Date(Month/Year)
--- OUTSIDE RECORDS SUMMARY | 2024-07-15 20:45 | XMS_ITS ---
Author Organization [facility] Address [address] [place] [address] Care Team Providers Care Cuprous Chloride Helper Name Role Phone Hector Solis Primary Care Provider [phone] Nadja Martinez Unavailable [phone] Allergies Allergen (clinical drug ingredient) Drug/Non Drug Allergy documented on EMR Reaction Allergy Type Onset Date Status morphine Morphine Unknown Drug Allergy Active Results Component Value Reference Range Notes Urinalysis In-House, Routine Reviewed date:11/12/2023 02:51:20 PM Interpretation: Performing Lab: Notes/Report: Urine-Color yellow Appearance cloudy Leukocytes neg Nitrite, Urine neg Urobilinogen,Semi-Qn .2 Protein neg pH 6 Occult Blood neg Specific [place] 1.02 Ketones neg Bilirubin neg Glucose neg [...] W/U Status Risk Notes Problem Hypercoagulable state (45596229) Hypercoagulable state (D68.59) Active confirmed Vital Signs Weight 136.2 lbs 11/12/2023 Height 65 in 11/12/2023 BMI 22.66 kg/m2 11/12/2023 Blood pressure systolic 102 mm Hg 11/12/19 24 Blood pressure diastolic 70 mm Hg 024 Heart Rate 73 /min 11/12/2023 Oximetry 99 % 11/12/2023 Respiratory Rate 16 /min 11/12/2023 Encounters Encounter Location Date Provider Diagnosis [address] [address] 11/12/2023 Hector Solis Hematochezia K92.1 ; Chronic [...] COLONOSCOPY AFTER COMPLETION LF VASCULAR PROCEDURE AT [facility] 11/12/2023 Chronic daily headache (ICD-10 - R51.9) RESUME TOPIRAMATE, AVOID IBUPROFEN 11/12/2023 Abnormal antinuclear antibody titer (ICD-10 - R76.8) KEEP RHEUM APPT 11/12/2023 Hypercoagulable state (ICD-10 - D68.59) F/U WITH HEME AND VASCULAR AT [facility] 11/12/2023 Chronic pain (ICD-10 - G89.29) 11/12/2023 Hypothyroidism (acquired) (ICD-10 - E03.9) SEES ENDO AT [facility] 11/12/2023 Dysuria (ICD-10 - R30.0) 11/12/2023 Alopecia (ICD-10 - L65.9) 11/12/2023 Other JACKI SIGNED FOR ALL RECORDS FROM [facility] FOR THE PAST 2 YEARS Plan Of [...] JACKI SIGNED FOR ALL R ECORDS FROM [facility] FOR THE PAST 2 YEARS Next Appt Details Follow Up: 4 Weeks, Reason: REVIEW RECORDS FROM [facility], [facility] HEMATOCHEZIA FURTHER Progress Notes * Sahra PARKSDOB:1980 (43 yo F)Acc No.[id number]:11/12/2023 Progress Notes Patient: Sahra BARBOSA Provider: Rajinder Solis :1980 A ge:43 Y S ex:Female Date:11/12/2023 Address:[address] [place] [address] Check 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 Subjective: * Chief Complaints: * R /s from 11/05/23--follow up * HPI: D epression Screening: PHQ-9 L ittle interest or pleasure in doing things?Several days F eeling down, depressed, or hopeless M ore than half the days T rouble falling or staying asleep, or sleeping too much M ore than half the days P oor appetite or overeating M ore than half the days F eeling bad about yourself or that you are a failure, or have let yourself or your family down M ore than half the days M oving or speaking so slowly that other people could have noticed; or the opposite, being so fidgety or restless that you have been moving around a lot more than usual N ot at all T houghts that you would be better off or of hurting yourself in some way N ot at all S creening: [place] Suicide Severity Rating Scale (LF) D o you want to initiate with S creener form 1 . Wish to be : Have you wished you were or wished you could go to sleep and not wake up? N o 2 . Suicidal Thoughts: Have you actually had any thoughts of killing yourself? N o 6 . Suicide Behaviour: Have you ever done anything,started to do anything, or prepared to end your life? N o I nterpretation: L ow Risk C SSRS Interpretation and Follow Up Plan: CSSRS Interpretation and Follow Up Plan. D epression Screening PHQ2 2014: Intervention D epression screening Finding P ositive P reventative Health and Wellness follow-up: . I nterim History: SEEING A NURSE PRACTITIONER AT [facility]. CAME IN TODAY BECUASE SHE WANTED TO MAKE SURE SHE IS 'NOT SICK' 'IT MIGHT BE ALLERGIES' IS TO HAVE A STENT PLACED IN HER LEFT ILIAC ARTER, SECOND ONE FIRST STENT WAS PLACED 09/2022. TESTED POSITIVE FOR LUPUS AT [facility] AT THIAT TIME. FORMS BLOOD COTS: 'I COULD SEE THEM CIRCULATING IN MY BODY -- LIKE MARBLES IN MY VEINS' HAD THROMBECTOMY ON HER LEFT LEG C/O CHRONIC DYSURIA. DENIED THAT U/A WAS DONE AT [facility]. DAILY HEADACHES SINCE STOPPING TOPIRAMATE. WOULD LIKE TO RESUME IT IT DECREASED HER NEED FOR IBUPROFEN. H/A'S ARE ACHING, GENERALIZED, W/O ASSOCIATED SYMPTOMS EXCEPT NAUSEA. USES IBUPREFEN DAILY, SOMETIMES EVERY FOUR HOURS WITH MINIMAL RELIEF. INTERMITTENT BRB FROM RECTUM WITH DEFECATION. NO PAIN. NO DIZZINESS. NO FAINTS. NO HX OF ANEMIA NOTED. AWAIT LABS FROM [facility] AND COMPLETION OF VASCULAR PROCEDURE PRIOR TO PURSUING FURTHER EVALUATION UNLESS BLEDDING WORSENS. SHE IS IN AGREEMENT. ALSO NOTES SHE HAS LOST 80% OF HER HAIR. DIFFUSE. NO BALD SPOTS. NO HAIR LOSS FROM BODY NOTED. NONSMOKER. RARE GLASS OF WINE. NO RECREATIONAL DRUGS. NO CANNABIS. * ROS: B asic ROS: Denies W eight loss or gain. A dmits H eadache.? * Medical History: * Surgical History: D and C 2001Hernia 2005DVT 2022mayth * Hospitalization/Major Diagno stic Procedure: N o Hospitalization History. * Family History: F ather: alive. M [...] Employment Status E mployment Status: U nemployed T obacco Use: D ont use, Tobacco Use/Smoking A re you a c urrent every day smoker Tobacco Control (Standard) T obacco use: F ormer smoker H ow long has it been since you last smoked??1-5 years M iscellaneous: M ethod of learning P referred method of learning: D iscussion * Medications: T akingXarelto 20 MG Tablet [...] capsule with food Orally Once a day Not- Taking Topiramate 100 MG Tablet 1 tablet Orally [...] Allergies: M zachary[Allergies Verified] Objective: * Vitals: I nitials: st, Wt:136.2, Ht: 65, BMI:22.66, BP:102/70, HR:73, Oxygen sat %:99, RR:16, LMP: 10/2023, Pain scale:8. * Examination: G eneral Examination: GENERAL APPEARANCE: w ell developed, well nourished, in no acute distress. HEAD: n ormocephalic, atraumatic. EYES: P ERRLA, sclera and conjunctiva clear. EARS External ears intact. NOSE: n jay patent, no lesions, septum intact. ORAL CAVITY: m ucosa moist. THROAT: n o erythema, no exudate, pharynx normal. NECK/THYROID: n o JVD, no goiter. SKIN: w arm and dry, no rashes. HEART: r egular rate and rhythm, no murmurs. LUNGS: r espirations regular and easy, clear to auscultation bilaterally. ABDOMEN: b owel sounds present, soft, nontender, nondistended, no masses palpable, no organomegaly . MUSCULOSKELETAL: n o joint deformity, swelling, redness, or warmth , RAQUEL upper and lower extremities. EXTREMITIES: n o clubbing, cyanosis, or edema. NEUROLOGIC: c ranial nerves 2-12 grossly intact. Assessment: * Assessment: 1. H ematochezia - K92.1 2 . C hronic daily headache - R51.9 (Primary) 3 . A bnormal antinuclear antibody titer - R76.8 4 . H ypercoagulable state - D68.59 5 . C hronic pain - G89.29 6 . H ypothyroidism (acquired) - E03.9 7 . D ysuria - R30.0 8 . A lopecia - L65.9 Plan: * Treatment: 2. H ematochezia Clinical Notes: CONSIDER FURTHER EVALUATION WITH COLONOSCOPY AFTER COMPLETION LF VASCULAR PROCEDURE AT [facility] 3. A bnormal antinuclear antibody titer Clinical Notes: KEEP RHEUM APPT 4. H ypercoagulable state Clinical Notes: F/U WITH HEME AND VASCULAR AT [facility] 5. H ypothyroidism (acquired) Clinical Notes: SEES ENDO AT [facility] 6. D ysuria Start Phenazopyridine HCl Tablet, 200 MG, 1 tablet after meals, Orally, Three times a day, 2 days, 6, Refills 0. L AB: Urinalysis In-House, Routine (Collection Date & Time - 11/12/2023) Value Reference Range U rine-Color yellow * A ppearance cloudy * L eukocytes neg * N itrite, Urine neg * U robilinogen,Semi-Qn .2 * P rotein neg * p H 6 * O ccult Blood neg * S pecific [place] 1.02 * K etones neg * B ilirubin neg * G lucose neg 7.?Alopecia? Start Minoxidil Solution, 2 %, 1 mL, Externally, Twice a day apply to scalp, 60 mL, Refills 5.??8.?Others? Notes: JACKI SIGNED FOR ALL RECORDS FROM [facility] FOR THE PAST 2 YEARS?? * Recommended Wellness and Pre vention Guidelines: * S tatus A lert L ast Done N ext Due A ction Taken N ONCOMPLIANT A lcohol use screening - 0 11/12/2023 - N ONCOMPLIANT A llergy List Verification - 0 11/12/2023 - N ONCOMPLIANT D epression followup 0 09/12/2023 0 11/12/2023 - N ONCOMPLIANT H IV screening - 0 11/12/2023 - * Procedure Codes: 8 1002 URINE-NO MICRO, Modifiers: QW [id number] SPECIMEN HANDLING * Follow Up: 4 Weeks (Reason: REVIEW RECORDS FROM [facility]EMAT[facility] FURTHER) * * Sign off status: Completed true * Provider: Rajinder Solis Date: 0 11/12/2023 Generated for Swapnil phillips/Geeta/eTransmitting on: 0 07/15/2024 08:45 PM CDT History [...] Poor appetite or overeating: More than h retirement the days Feeling bad about yourself o [...] in some way: Not at all Screening [place] Suicide Sev erity Rating Scale (LF) Do you want to initiate with: Screener form 1. Wish to be : Have you wished you were or wished you could go to sleep and not wake up?: No 2. Suicidal Thoughts: Have you actually had any thoughts of killing yourself?: No 6. Suicide Behavior Question: Have you ever done anything,started to do anything, or prepared to end your life?: No Interpretation:: Low Risk [facility] Wellness follow-up [...]
--- OUTSIDE RECORDS SUMMARY | 2024-07-15 20:45 | XMS_ITS | Data Portability ---
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 tabs at bedtime and maintain 06/24 completed Not Available Not Available Not Available prednison e 50 mg tablet active Not Available Not Available Not Available lidocaine 5 % topical patch APPLY 1 PATCH BY TOPICAL ROUTE ONCE DAILY (MAY WEAR UP TO 12HOURS. ) 09/29 completed Not Available Not Available Not Available promethaz ine 25 mg tablet active Not Available Not Available Not Available levothyro xine 150 mcg tablet TAKE 1 TABLET BY MOUTH DAILY 03/05 completed Not Available Not Available Not Available nicotine 21 mg/24 hr daily transderm al patch 09/07 completed Not Available Not Available Not Available norgestim ate-ethin yl estradiol 0.18mg/0. 215mg/0.2 5mg-0.035 mg(28)tab let Take 1 tablet every day by oral route. 11/07 completed Not Available Not Available Not Available monteluka st 10 mg tablet TAKE 1 TABLET BY MOUTH EVERY DAY 09/29 completed Not Available Not Available Not Available hydroxyzi ne HCl 25 mg tablet Take 1 tablet every day by oral route at dinner for 30 days, for itchy rash. active Not Available Not Available No t Available cyanocoba benedict (vit B-12) 1,000 mcg sublingua l tablet Place 1 tablet twice a day by sublingu al route for 30 days. 2023 active Not Available Not Available Not Avai lable Low-Ogest rel (28) 0.3 mg-30 mcg tablet Take 1 tablet every day by oral route. active Not Available Not Available No t Available ziprasido ne 40 mg capsule 11/28 completed Not Available Not Available Not Available permethri n 1 % topical liquid active Not Available Not Available Not Available gabapenti n 100 mg capsule TAKE 1 CAPSULE BY MOUTH EVERY DAY AT BEDTIME FOR SLEEP OR ANXIETY 05/05 completed Not Available Not Available Not Available ergocalci ferol (vitamin D2) 1,250 mcg (50,000 unit) capsule 06/24 completed Not Available Not Available Not Available lotepredn ol etabonate 0.5 % eye drops,lexi pension SHAKE LIQUID AND INSTILL 1 DROP IN BOTH EYES TWICE DAILY DURING THE DAY active Not Available Not Available No t Available azelastin e 137 mcg (0.1 %) nasal spray USE 2 SPRAYS IN EACH NOSTRIL TWICE DAILY active Not Available Not Available No t Available levofloxa luis 750 mg tablet Take 1 tablet every day by oral route for 10 days. 05/04 completed Not Available Not Available Not Available albuterol sulfate HFA 90 mcg/actua tion aerosol inhaler INHALE 2 PUFFS BY MOUTH EVERY 8 HOURS NEEDED active Not Available Not Available No t Available dextroamp hetamine- amphetami ne ER 30 mg 24hr capsule,e xtend release TAKE 1 CAPSULE BY MOUTH EVERY DAY IN THE MORNING active Not Available Not Available No t Available propranol ol 20 mg tablet TAKE 1/2 TO 1 TABLET BY MOUTH DAILY NEEDED FOR TREMORS active Not Available Not Available No t Available hydroxyzi ne HCl 10 mg tablet TAKE 1 TABLET BY MOUTH THREE TIMES DAILY NEEDED 12/05 completed Not Available Not Available Not Available ondansetr on 4 mg disintegr ating tablet DISSOLVE 1 TABLET ON THE TONGUE THREE TIMES DAILY FOR 10 DAYS NEEDED 09/29 completed Not Available Not Available Not Available topiramat e 100 mg tablet TAKE 1 TABLET BY MOUTH TWICE DAILY active Not Available Not Available No t Available fluoxetin e 20 mg capsule TAKE 1 CAPSULE BY MOUTH ONCE DAILY AT BEDTIME TAKE WITH OLANZAPI NE 01/24 completed Not Available Not Available Not Available fluticaso ne propionat e 50 mcg/actua tion nasal spray,lexi pension active Not Available Not Available Not Available medroxypr ogesteron e 150 mg/mL intramusc ular suspensio n 07/27 completed Not Available Not Available Not Available lamotrigi ne 100 mg tablet TAKE 1 TABLET BY MOUTH EVERY DAY IN THE MORNING FOR DEPRESSI ON OR ANXIETY 12/05 completed Not Available Not Available Not Available diazepam 5 mg tablet Take 1 tablet twice a day by oral route for 10 days. 2023 active Not Available Not Available Not Avai lable metoclopr amide 10 mg tablet 09/29 completed Not Available Not Available Not Available levothyro xine 112 mcg tablet TAKE 1 TABLET BY MOUTH EVERY DAY 09/07 completed Not Available Not Available Not Available amoxicill in 875 mg-potass ium clavulana te 125 mg tablet TAKE 1 TABLET BY MOUTH EVERY 12 HOURS FOR 10 DAYS 05/04 completed Not Available Not Available Not Available minoxidil 2 % topical solution active Not Available Not Available Not Available nicotine 7 mg/24 hr daily transderm al patch Apply 1 patch every day by transder mal route. 09/29 completed Not Available Not Available Not Available oxycodone 5 mg tablet 03/16 completed Not Available Not Available Not Available hydroxyzi ne pamoate 25 mg capsule 07/27 completed Not Available Not Available Not Available enoxapari n 60 mg/0.6 mL subcutane ous syringe 09/29 completed Not Available Not Available Not Available medroxypr ogesteron e 150 mg/mL intramusc ular syringe Inject 1 mL every 3 months by intramus cular route. 07/27 completed Not Available Not Available Not Available cyclospor ine 0.05 % eye drops in a dropperet te ADMINIST ER ONE DROP INTO BOTH EYES EVERY 12 HOURS DURING THE DAY FOR 12 MONTHS active Not Available Not Available No t Available aripipraz ole 5 mg tablet 11/07 completed Not Available Not Available Not Available bupropion HCl XL 300 mg 24 hr tablet, extended release TAKE 1 TABLET BY MOUTH EVERY DAY IN THE MORNING 06/24 completed Not Available Not Available Not Available bupropion HCl XL 150 mg 24 hr tablet, extended release TAKE 1 TABLET BY MOUTH EVERY DAY IN THE MORNING active Not Available Not Available No t Available topiramat e 50 mg tablet Take 1 tablet twice a day by oral route at bedtime for 30 days. 09/29 completed Not Available Not Available Not Available nitrofura ntoin monohydra te/macroc rystals 100 mg capsule TAKE 1 CAPSULE BY MOUTH EVERY 12 HOURS FOR 7 DAYS active Not Available Not Available No t Available solifenac in 10 mg tablet TAKE 1 TABLET BY MOUTH EVERY DAY active Not Available Not Available No t Available Focalin XR 10 mg capsule,e xtended release Take 1 capsule every day by oral route. 05/21 completed Not Available Not Available Not Available Focalin XR 20 mg capsule,e xtended release TAKE 1 CAPSULE BY MOUTH EVERY DAY 12/05 completed Not Available Not Available Not Available pregabali n 50 mg capsule 1 cap po at bedtime for 7 days, 1 cap twice daily 7 days , 1 cap 3 times daily for 7 days 12/05 completed Not Available Not Available Not Available pregabali n 150 mg capsule Take 1 capsule twice a day by oral route for 30 days. 2023 active Not Available Not Available Not Avai lable biotin 2012 active Not Available Not Available Not Avai lable Butalbita l Compound- Codeine 01/24 completed per pt--from ER Not Available Not Available Not Available Focalin XR 15 mg capsule,e xtended release Take 1 capsule every day by oral route. 01/31 completed Not Available Not Available Not Available aripipraz ole 2 mg tablet TAKE 1 TABLET BY MOUTH EVERY DAY AT BEDTIME active Not Available Not Available No t Available Symbicort 160 mcg-4.5 mcg/actua tion HFA aerosol inhaler Inhale 2 puffs twice a day by inhalati on route. active Not Available Not Available No t Available levonorge strel 1.5 mg tablet USE DIRECTED ON THE PACKAGE active Not Available Not Available No t Available levothyro xine 125 mcg capsule Take 1 capsule every day by oral route. 2012 active Not Available Not Available Not Avai lable butalbita l-acetami nophen-ca ffeine 50 mg-300 mg-40 mg capsule TAKE 1-2 CAPSULES BY MOUTH EVERY 4-6 HOURS NEEDED 06/06 completed Not Available Not Available Not Available Lo Loestrin Fe 1 mg-10 mcg (24)/10 mcg (2) tablet tablet by mouth daily 07/27 completed Not Available Not Available Not Available Xarelto 20 mg tablet active Not Available Not Available Not Available Linzess 145 mcg capsule Take 1 capsule every day by oral route for 30 days. 06/24 completed Not Available Not Available Not Available Rexulti 0.5 mg tablet Take by oral route for 30 days. active Not Available Not Available No t Available Blisovi Fe 05/11 (28) 1 mg-20 mcg (21)/75 mg (7) tablet Take 1 tablet every day by oral route. 07/27 completed Not Available Not Available Not Available Vraylar 1.5 mg capsule 09/29 completed Not Available Not Available Not Available Mibelas 24 Fe 1 mg-20 mcg (24)/75 mg (4) chewable tablet 09/07 completed Not Available Not Available Not Available Daily-Vit e (with folic acid) 400 mcg tablet active Not Available Not Available Not Available Vitals Date Recorded Body height Body mass index (BMI) Body weight Body temperature Heart rate Respiratory rate Oxygen saturation Oxygen saturation in Arterial blood by Pulse oximetry Systolic blood pressure Diastolic blood pressure Provider Name and Address Organization Details Last Updated DateTime 4 160.02 cm 24.4 kg/m2 42119.7 5 g 98.3 [degF] 85 /min 16 /min 99 % 99 % 118 mm[Hg] 92 mm[Hg] Karin Mccracken RN [facility] [employer] 4 14:19:44 Date Recorded Body height Body mass index (BMI) Body weight Body temperature Heart rate Oxygen saturation Oxygen saturation in Arterial blood by Pulse oximetry Systolic blood pressure Diastolic blood pressure Provider Name and Address Organization Details Last Updated DateTime 4 160.02 cm 25 kg/m2 60864.5 2 g 97.3 [degF] 88 /min 99 % 99 % 102 mm[Hg] 70 mm[Hg] Karin Mccracken RN [facility] [employer] 4 11:14:38 Date Recorded Body height Body mass index (BMI) Body weight Body temperature Provider Name and Address Organization Details Last Updated DateTime 05/04/2024 160.02 cm 24.8 kg/m2 64249.21 g 97.8 [degF] Balbina Martinez RN [facility] [employer] 05/04/2024 14:14:25 Date Recorded Body height Body temperature Body mass index (BMI) Body weight Oxygen saturation Oxygen saturation in Arterial blood by Pulse oximetry Heart rate Systolic blood pressure Diastolic blood pressure Provider Name and Address Organization Details Last Updated DateTime 160.02 cm 97.9 [degF] 24.8 kg/m2 41861.2 9 g 99 % 99 % 83 /min 112 mm[Hg] 72 mm[Hg] Liang Hernandez RN [facility] [employer] 15:43:26 Date Recorded Body height Body mass index (BMI) Body weight Body temperature Provider Name and Address Organization Details Last Updated DateTime 06/24/2024 160.02 cm 24.4 kg/m2 58621.03 g 97.2 [degF] Kathleen Landeros CNA [place] [facility] [employer] 06/24/2024 15:18:22 Social History Question Answer Notes LastModified by Organizat ion Details LastModified Time Tobacco Smoking Status Former Smoker 1/2ppd JOANNE Hamilton [place] [facility] [employer] 06/24/2024 15:16:20 In The 14 Days Before Symptom Onset, Have You Had Close Contact With A Laboratory-confirm ed COVID-19 While That Case Was Ill? No [id number] Information not available 06/20/2022 In The 14 Days Before Symptom Onset, Have You Had Close Contact With A Person Who Is Under Investigation For COVID-19 While That Person Was Ill? No [id number] Information not available 06/20/2022 When Did You Quit Smoking? 1-5yearssin celastcigar ette mgass4 Information not available 06/24/2024 How Many Years Have You Smoked Tobacco? 8 [id number] Information not available 06/20/2022 Have You Recently Traveled Abroad? No [id number] Information not available 06/20/2022 Sex: Unknown Functional Status None recorded. Mental Status None recorded. Family History Relationship Description Onset Age of this Age Resolved Age Notes LastModified by Organization Details LastModified Time Paternal Grandfather Hypertensive disorder [id number] Not available 06/20/2022 06:42:37 Brother Anxiety disorder [id number] Not available 06/20/2022 06:42:37 Brother Depressive disorder [id number] Not available 06/20/2022 06:42:37 Mother Anxiety disorder [id number] Not available 06/20/2022 06:42:37 Mother Depressive disorder [id number] Not available 06/20/2022 06:42:37 Maternal Grandfather Heart disease [id number] Not available 06/20/2022 06:42:37 Paternal Grandmother Heart disease [id number] Not available 06/20/2022 06:42:37 Paternal Grandmother Family history of malignant neoplasm [id number] Not available 06/20/2022 06:42:37 Son Hearing disorder Not available 2022 11:18:39 Notes:FAMILY HX OF SINUS NATANAEL GERIES, TUBES, AND HEARING LOSS Medical History Condition Response BLINDNESS N RHEUMATIC FEVER N KIDNEY STONES N BLADDER PROBLEMS N MRSA N OTHER # 1 N POLIO N LUNG DISEASE/DISORDER N HISTORY OF DRUG ABUSE N RADIATION / CHEMOTHERAPY N COPD N Other # 2 N BLOOD DISEASES N SURGERY N EAR OR HEARING PROBLEMS N MUMPS N SHINGLES N FEMALE PROBLEMS / INFECTIONS N BOWEL PROBLEMS N DEPRESSION (INCLUDING POST ) Y STROKE/TIA N THYROID DISEASE N ULCERS N BENIGN PROSTATIC HYPERPLASIA N MEASLES N CERVICALGIA N TB SKIN TEST N HYPOTENSION N MYOCARDIAL INFARCTION N PARAPELGIA N OBESITY N GERD/NAUSEA N ANEURYSM N URINARY/BLADDER/KIDNEY PROBLEMS N CORONARY ARTERY DISEASE (CAD) N MENIERE'S DISEASE N ADDICTION CONCERNS N ENDOMETRIOSIS N USE OF BLOOD THINNERS N SKIN PROBLEMS N EMPHYSEMA N GASTROINTESTINAL DISORDER N MUSCLE,JOINT OR BONE PROBLEMS N GASTROINTESTINAL BLEEDING N BLOOD CLOTS N ASTHMA N CATARACTS N ERECTILE DYSFUNCTION N GI PROBLEMS N CHF N Low Testosterone N NEUROPATHY N INFERTILITY N AIDS/HIV N FRACTURES N CHEMOTHERAPY / RADIATION N VISION/EYE PROBLEMS N LIVER DISEASE N MALE HYPOGONADISM N HYPERTENSION N TOURETTE'S N ANXIETY DISORDER Y BLOOD TRANSFUSION N ANEMIA/BLOOD DISORDER N CHRONIC EAR INFECTIONS N BRONCHITIS N TUBERCULOSIS N GLAUCOMA N FOOT PROBLEM N DIVERTICULITIS N SLEEP APNEA N CHICKENPOX N ALLERGIES/HAYFEVER Y INFECTIOUS DISEASE N PROSTATE N HEART ARRHYTHMIA N INSOMNIA N HIGH CHOLESTEROL / HYPERLIPIDEMIA N EYE PROBLEMS N HYPERTHYROIDISM N EATING DISORDER N EDEMA N CHRONIC PAIN SYNDROME N CONSTIPATION N CAROTID BLOCKAGE N BACK / NECK PROBLEMS N HAVE YOU BEEN HOSPITALIZED OR SEEN IN THE MEDICAL CENTER IN THE PAST YEAR ? N ATHEROSCLEROSIS N BREAST PROBLEMS N DIALYSIS N ECZEMA N FIBROMYALGIA N OSTEOPOROSIS N ARTHRITIS N NO SIGNIFICANT PAST MEDICAL HISTORY N APPENDICITIS N DIABETES, TYPE N BAD TEETH N HEARTBURN / REFLUX Y ADD/ADHD Y AUTISM SPECTRUM DISORDER (ASD) N HEPATITIS / LIVER DISEASE N PULMONARY DISEASE N GOUT N SLEEP DISORDER N ALZHEIMER'S DISEASE N PAIN N DEMENTIA N HERPES N SEIZURES/EPILEPSY N HEADACHES/MIGRAINES N VASCULAR DISEASE N PACEMAKER N DIZZINESS N HEART DISEASE/HEART PROBLEMS N KIDNEY DISEASE N SCARLET FEVER N MULTIPLE SCLEROSIS N DEVELOPMENTAL OR BEHAVIORAL DISORDERS N MENTAL DISORDER/ILLNESS N CANCER: SPECIFY N CARDIAC ARRHYTHMIA N PNEUMONIA N ATRIAL FIBRILLATION N Gall Stones N PULMONARY EMBOLISM N AUTOIMMUNE DISEASE N Gynecological HistoryNo gynecological history recorded. Obstetrics History GPAL:G 0 P 0 0 0 0 Immunizations Vaccine Type Date Status Note Provider Nam e and Address Organization Details Recorded Time HPV, unspecified formulation 8 completed Not Available [facility] 05/24/2023 19:05:13 HPV, unspecified formulation 7 completed Not Available [facility] 05/24/2023 19:05:13 HPV, unspecified formulation 7 completed Not Available [facility] 05/24/2023 19:05:13 Past Encounters Encounter ID Performer Location Encounter Start Date Encounter Closed Date Diagnosis/Indication Diagnosis SNOMED-CT Code Diagnosis ICD10 Code Diagnosis Note [id number] [facility] [place] [address] 01/24/2021 00:00:00 01/25/2021 06:27:57 [id number] [facility] [place] [address] 03/28/2021 00:00:00 03/28/2021 19:51:29 [id number] [facility] [place] [address] 03/29/2022 00:00:00 03/29/2022 20:05:50 [id number] Echo Pollard [place] [address] [place] [address] [place] [address] 07/27/2022 10:04:19 07/27/2022 10:51:33 Hypothyroidism 03979523 E03.9 Anxiety disorder 6227499 06 F41.9 Mixed anxi ety and depressive disorder 739955489 F41.8 Wean off venlafaxin e Allergic rhinitis 762695 04 J30.9 Vitamin B1 2 deficiency (non anemic) 12721618 E53.8 [id number] Echo Pollard MD [address] [address] [place] [address] 09/07/2022 09:46:34 09/07/2022 10:44:16 Bipolar disorder 74634377 F31.9 Cigarette smoker 6723862 7 F17.210 Hypothyroidism 88520767 E03.9 Cobalamin deficiency 190 492311 E53.8 [id number] Katie Head MD [facility] [place] [address] [place] [address] 09/26/2022 12:23:11 09/26/2022 22:37:27 [id number] Echo Pollard MD [address] [address] [place] [address] 11/07/2022 09:16:18 11/07/2022 10:02:26 Multiple skin tags 638963316 L91.8 Removed x 3 skin tags. Cobalamin deficiency 190 815896 E53.8 [id number] Adair Daily MD [facility] [place] [address] [place] [address] 11/15/2022 10:43:56 11/15/2022 11:58:24 Chronic maxillary sinusitis 34891234 J32.0 Chronic et hmoidal sinusitis 80895896 J32.2 [id number] Echo Pollard MD [address] [address] [place] [address] 11/26/2022 11:09:25 11/26/2022 11:58:05 History of deep vein thrombosis 860666076 Z86.718 Use compressio n stockings. Migraine 41067469 G43.90 9 Chronic id iopathic constipation 06788464 K59.04 Continue miralax and stool softener Nondiabeti c gastroparesis 84300120 K31.84 Cobalamin deficiency 190 291035 E53.8 [id number] Adair Daily MD [facility] [place] [address] [place] [address] 02/07/2023 10:13:41 02/07/2023 11:13:23 Chronic sinusitis 01760210 J32.9 [id number] Echo Pollard MD [facility] [address] [place] [address] 02/26/2023 10:54:34 02/26/2023 11:23:26 Chronic abdominal pain 725530505 R10.9 stop the metoclopra mide Seizure disorder 9688368 02 G40.909 Seborrheic dermatitis of scalp 763827605 L21.0 Adult heal th examination 460001068 Z00.00 Attention deficit hyperactivity disorder 632579544 F90.9 [id number] BRADY Bautista [facility] [address] [place] [address] 05/30/2023 10:37:42 05/30/2023 11:47:43 Seizure disorder 747005314 G40.909 Attention deficit hyperactivity disorder, 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 Anti-nucle ar factor detected 531310140 R76.8 Hypothyroidism 01759357 E03.9 Anxiety 41815757 F41.9 Deep venou s thrombosis 032332773 I82.409 Mixed anxi ety and depressive disorder 502740971 F41.8 Nicotine dependence 5629 4008 F17.200 Vitamin B1 2 deficiency (non anemic) 42328348 E53.8 [id number] BRADY Bautista [address] [place] [address] [place] [address] 09/30/2023 09:13:35 09/30/2023 10:41:53 Pain of bilateral knee joints 0308912361 83692 M25.561 M25.562 pain with extension to resistance bilateral knees Vitamin B1 2 deficiency (non anemic) 64719621 E53.8 Cobalamin deficiency 190 142012 E53.8 Loss of hair 501165453 L 65.9 Mixed anxi ety and depressive disorder 843189975 F41.8 Anxiety 04594639 F41.9 Screening for malignant neoplasm of breast 395700316 Z12.39 Anti-nucle ar factor detected 085039155 R76.8 Low back pain 365969230 M54.50 positive straight leg raising sign on right Attention deficit hyperactivity disorder, predominantly inattentive type 45425614 F90.0 Chronic id iopathic constipation 08348650 K59.04 Bipolar disorder 8842996 4 F31.9 Cigarette smoker 1736616 7 F17.210 Hypothyroidism 56116011 E03.9 Seizure disorder 7748378 02 G40.909 Smoker 42868663 F17.285 [id number] BRADY Bautista [address] [place] [address] 12/06/2023 11:56:31 12/06/2023 12:53:03 Painful urging to urinate 90525724 R30.0 Acute otitis media 12896 03 H66.93 Hypothyroidism 06508247 E03.9 Overactive urinary bladder 095859133 N32.81 Insomnia 261578074 G47.0 0 Loss of hair 239765673 L 65.9 Vitamin B1 2 deficiency (non anemic) 02151198 E53.8 Hyperlipidemia 12306105 E78.5 Allergic rhinitis 321013 04 J30.9 Anti-nucle ar factor detected 601078651 R76.8 Anxiety 59939193 F41.9 Attention deficit hyperactivity disorder, predominantly inattentive type 65661457 F90.0 Bipolar disorder 0636773 4 F31.9 Deep venou s thrombosis 209476226 I82.842 [id number] BRADY Bautista [facility] [place] [address] 12/31/2023 14:14:10 12/31/2023 14:59:42 Pain of bilateral knee joints 1763464238 02320 M25.561 M25.562 pain with extension to resistance bilateral knees Allergic rhinitis 869657 04 J30.9 Acute sinusitis 27895943 J01.90 Deep venou s thrombosis 678452142 I82.409 Bipolar disorder 9807605 4 F31.9 Chronic low back pain 27 4443741 M54.50 Depressive disorder 3548 9007 F32.A Cobalamin deficiency 190 388615 E53.8 Hypothyroidism 49096730 E03.9 Anxiety 38372533 F41.9 [id number] BRADY Bautista [address] [place] [address] 03/05/2024 11:05:13 03/05/2024 11:37:51 Acute sinusitis 26569794 J01.90 Hypothyroidism 85202696 E03.9 Pain of bi lateral knee joints 0589945586 35544 M25.561 M25.562 pain with extension to resistance bilateral knees Allergic rhinitis 050820 04 J30.9 Anxiety 68515455 F41.9 Attention deficit hyperactivity disorder, predominantly inattentive type 23871511 F90.0 Bipolar disorder 0719585 4 F31.9 Chronic et hmoidal sinusitis 62368487 J32.2 Insomnia 068075580 G47.0 0 Nicotine dependence 5629 4008 F17.200 Seizure disorder 8821546 02 G40.909 Vitamin B1 2 deficiency (non anemic) 14933799 E53.[id number] [facility] Olga Lidia Yu [address] [place] [address] 05/04/2024 13:54:22 05/04/2024 14:44:14 Dysfunction of left eustachian tube [id number] 755831 H69.92 Chronic sinusitis 259441 00 J32.9 Hypertroph y of nasal turbinates 83653805 J34.3 [id number] BRADY Bautista [address] [place] [address] 05/05/2024 15:29:31 05/06/2024 10:31:38 Migraine 31750388 G43.909 Restless legs 12285318 G 25.81 Depressive disorder 3548 9007 F32.A Dysfunctio n of bilateral eustachian tubes [id number] 651268 H69.93 Sinusitis 79111095 J32.9 Acute otitis media 85759 03 H66.93 Allergic rhinitis 768107 04 J30.9 [id number] Adair Daily MD [facility] [place] [address] [place] [address] 06/24/2024 15:00:56 06/25/2024 15:48:09 Deviated nasal septum 189550398 J34.2 Chronic ma xillary sinusitis 63333764 J32.0 Chronic et hmoidal sinusitis 84414613 J32.2 Health Concerns Section Related Observation LastModified by Organization Detai ls LastModified Time None Recorded Concern Status LastModified by Organization Details LastModified Time None Recorded Advance Directives Directive None Recorded Payers Encounter Date Sequence Insurance Name Policy Number Policy Hager Covered Member ID Hager Member ID Guarantor Name 12/31/2023 1 [facility] ON OR AFTER 10/20/20 (MEDICAID REPLACEMENT - HMO) Sahra Parks [id number] Sahra aPrks 12/31/2023 2 [place] [facility] Sahra Parks [id number] Sahra Parks 03/05/2024 1 [facility] ON OR AFTER 10/20/20 (MEDICAID REPLACEMENT - HMO) Sahra Parks [id number] Sahra Parks 05/04/2024 1 [facility] ON OR AFTER 10/20/20 (MEDICAID REPLACEMENT - HMO) Sahra Parks [id number] Sahra Parks 05/05/2024 1 [facility] ON OR AFTER 10/20/20 (MEDICAID REPLACEMENT - HMO) Sahra Parks [id number] Sahra Parks 06/24/2024 1 [facility] ON OR AFTER 10/20/20 (MEDICAID REPLACEMENT - HMO) Sahra Parks [id number] Sahra Parks Notes Date Note Type Note Provider Name and Address Organization Details Recorded Time 12/31/2023 text/html knee caps feel l santino they are going to pop off . BRADY Bautista [address], [place], [address], [employer] 01/18/2024 11:45:06 03/05/2024 text/html ears ache bilaterally , sinus pressure , gaining weight . BRADY Bautista [address], [place], [address], [employer] 03/09/2024 14:37:05 05/04/2024 text/html This patient has a past medical history significant for hypothyroidism, vitamin B12 deficiency, anxiety, bipolar disorder, Eustachian tube dysfunction, otitis media, and chronic sinusitis who presents to the office with a complaint of recurrent ear infections, ear pressure, and isn't hearing right. She reports difficulty hearing to the left ear. She has been using the Valsalva maneuver and has been on prednisone, previously prescribed, for over a week. She has not had an audiogram completed. She also endorses sinus pressure, and PND. She states that she has every time she goes to her PCP she has fluid in her ears all the time. she states that she had seen her PCP proximally one-month ago. She recently completed 2 rounds of antibiotics. Approximately one-week ago she had presented to the ED for complaints of a headache that caused some nausea and vomiting and was given some magnesium and discharge. On 01/10/2024 she had a septoplasty, ethmoidectomy, and a frontal exploration completed by Dr. Daily. Given her recurrent sinus related concerns, we will obtain a repeat sinus CT. RIP Cutler [address], [place], [address], [employer] 05/04/2024 14:43:41 05/05/2024 text/html sinus pressure , ears still bothering her , no fever BRADY Bautista [address], [place], [address], [employer] [facility] 05/12/2024 15:37:51 06/24/2024 text/html this patient had a CT which demonstrated maxillary ethmoid sinusitis with deviated septum. She reports nasal congestion headaches and mucus production for many years. Antibiotics helped very temporarily. She also had an audiogram which was essentially normal. Adair Daily MD [address] [place] [address], [place], [address], [place] [facility] [employer] 06/24/2024 15:31:15 OBGyn Episode No OBEpisode recorded.
--- NOTE | 2024-07-15 22:02 | ED_ITS ---
HPI - Extremity Problem General Chief complaint: Extremity Problem,Nontraumatic Stated complaint: Left leg discolored /painful DVT hx Time Seen by Provider: 07/15/24 22:01 Source: patient Mode of arrival: ambulatory Limitations: no limitations History of Present Illness HPI Narrative: Patient presents with report of left leg discoloration and pain. She has a history of a DVT in states that she has been told she has/had 50 blood clots. She had been on Xarelto but she states she stopped a week ago for ENT surgery due to sinus issues and putting tubes in her ears. She also states she has a history a stent due to the DVT placed by vascular surgeon Dr Umberto Garcia at [place]. Patient states that she feels like when she stands this stent moved. She has a photo of her leg that she states was taken at 10:00 a.m. with a purple leg but she states the color is now improving but the pain persists. 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 Describes it as a stabbing, feels like my leg is full of lead. Causing difficulty walking. She is also having chest pain and shortness of breath. She states that even before she stopped taking her Xarelto 1 week ago her leg has been hurting. Related Data Home Medications ?Medication ?Instructions ?Recorded ?Confirmed ?Last Taken ?Type albuterol sulfate 90 mcg/actuation 1 inh inhalation Q4H PRN Shortness 03/19/23 04/03/23 Unknown History aerosol inhaler Of Breath alprazolam 1 mg tablet 1 mg PO DAILY PRN Anxiety 03/19/23 04/03/23 Unknown History levothyroxine 175 mcg capsule 175 mcg PO DAILY 03/19/23 04/03/23 Unknown History bupropion HCl 150 mg tablet,12 hr 150 mg PO DAILY 04/03/23 04/03/23 Unknown History sustained-release cholecalciferol (vitamin D3) 125 125 mcg PO DAILY 04/03/23 04/03/23 Unknown History mcg (5,000 unit) tablet (Vitamin D3) clonidine HCl 0.2 mg tablet 0.2 mg PO HS 04/03/23 04/03/23 Unknown History cyanocobalamin (vitamin B-12) 1,000 mcg IM MONTHLY 04/03/23 04/03/23 Unknown History 1,000 mcg/mL injection solution dexmethylphenidate 20 mg 20 mg PO DAILY 04/03/23 04/03/23 Unknown History capsule,extended release [id number] (Focalin XR) diazepam 5 mg tablet 5 - 10 mg PO DAILY PRN Anxiety 04/03/23 04/03/23 Unknown History ergocalciferol (vitamin D2) 1,250 1,250 mcg PO WEEKLY 04/03/23 04/03/23 Unknown History mcg (50,000 unit) capsule ferrous sulfate 325 mg (65 mg 325 mg PO BID 04/03/23 04/03/23 Unknown History iron) tablet (Iron (ferrous sulfate)) fluticasone propionate 50 1 spray intranasal DAILY 04/03/23 04/03/23 Unknown History mcg/actuation nasal spray,suspension hydroxyzine pamoate 50 mg capsule 50 mg PO BID 04/03/23 04/03/23 Unknown History ketoconazole 2 % shampoo 1 applic topical PRN PRN DERMATITIS 04/03/23 04/03/23 Unknown History lamotrigine 25 mg tablet 50 mg PO DAILY 04/03/23 04/03/23 Unknown History linaclotide 145 mcg capsule 145 mcg PO DAILY 04/03/23 04/03/23 Unknown History (Linzess) metoclopramide HCl 10 mg tablet 10 mg PO TIDWMEAL 04/03/23 04/03/23 Unknown History ondansetron 4 mg disintegrating 4 - 8 mg PO TID PRN Nausea 04/03/23 04/03/23 Unknown History tablet polyethylene glycol 3350 17 17 g PO DAILY PRN Constipation 04/03/23 04/03/23 Unknown History gram/dose oral powder (Miralax) rivaroxaban 20 mg tablet (Xarelto) 20 mg PO DAILY 04/03/23 04/03/23 Unknown History thiamine HCl (vitamin B1) 1 tab-cap PO DAILY 04/03/23 04/03/23 Unknown History topiramate 100 mg tablet 150 mg PO DAILY 04/03/23 04/03/23 Unknown History vitamin A 1 cap PO DAILY 04/03/23 04/03/23 Unknown History zinc 1 tab-cap PO DAILY 04/03/23 04/03/23 Unknown History Allergies Allergy/AdvReac Type Severity Reaction Status Date / Time morphine Allergy Severe throat Verified 07/15/24 20:43 swelling nifedipine Allergy Intermediate Severe Verified 07/15/24 20:43 headache latex Allergy Mild Rash Verified 07/15/24 20:43 Sulfa (Sulfonamide AdvReac Mild vomiting Verified 07/15/24 20:43 Antibiotics) HYDROCODONE BIT AdvReac NAUSEA Uncoded 07/15/24 20:43 [facility] Past Medical History Medical History History of DVT (deep vein thrombosis) s/p stent Constipation Nausea & vomiting Abdominal bloating Social History Social History Smoking packs per day: 0.75 Smoking cigarettes per day: 15.0 Years smoked: 16 Smoking pack-years: 12.00 Smoking status: Former smoker Tobacco type: cigarettes and e-cigarettes/vaping Alcohol intake: current Substance use: never Substance use type: does not use Living arrangements: with family Spiritual care concerns: No Exam 2 Narrative: GENERAL: Well-appearing, well-nourished, and in no acute distress. HEAD: Normocephalic, atraumatic. EYES: Non injected, non icteric ENT: Nares clear, no rhinorrhea or epistaxis. NECK: Supple. CHEST: Speaking in full sentences. No respiratory distress. HEART: Regular rate and rhythm. . ABDOMEN: Soft, nondistended. EXTREMITIES: Normal range of motion. Left leg edema. Faint areas of petechiae throughout. Tenderness to palpation throughout w/o palpable cord; compartments soft. Warm and well perfused otherwise. Not erythematous or purple/discolored otherwise. SKIN: Warm, dry, no rash. NEURO: No focal deficits. Alert and oriented x3. PSYCH: Normal mood and affect. Course Vital Signs Vital signs: Vital Signs Temperature 98 F 07/15/24 20:45 Pulse Rate 120 H 07/15/24 20:45 Respiratory Rate 15 07/15/24 20:45 Blood Pressure 143/110 H 07/15/24 20:45 Pulse Oximetry 100 07/15/24 20:45 Oxygen Delivery Room Air 07/15/24 20:45 Temperature 98 F 07/15/24 20:45 Pulse Rate 83 07/16/24 04:40 Respiratory Rate 15 07/16/24 04:40 Blood Pressure 108/73 07/16/24 04:40 Pulse Oximetry 100 07/16/24 04:40 Oxygen Delivery Room Air 07/15/24 20:45 MDM - Extremity (Nontraumatic) MDM Narrative Medical decision making narrative: Patient presents report left leg swelling, pain, and discoloration. She has a history of DVT and is status post a stent in this leg placed October by vascular surgeon Dr Umberto Garcia at [place]. Had been on Xarelto but states she stops this week ago as directed for an otolaryngology procedure. In the emergency department she is afebrile with vital signs notable for tachycardia. Initial BP is erroneous with DBP documented as 11mmHg; corrected to 110mmHg. Patient given Dilaudid and ondansetron. Mild leukocytosis. Normocytic anemia stable. Renal function is essentially unchanged from previous. Patient still having pain at approximately 11:20 p.m.. 1 mg Dilaudid ordered. Continues to have pain; additional analgesic medications ordered, both IV as well as PO home meds. CT PE study negative. Heparin drip started while await call back from vascular surgery at [place]. She continues to endorse pain and refuses PO. Expresses concern that she is not actually receiving any analgesic medication. 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 Good color Doppler flow on point of care ultrasound for arterial structures and venous structures are compressible at the DP. Spoke with Dr Wasserman vascular surgeon at [facility] who recommends restart her anticoagulation and call her vascular surgeon Dr Chauhan first thing in the morning. Patient provided a disc of her images. She states that she has not yet undergone her ENT procedure and had been told to discontinue anticoagulation for 2 weeks preceding. I urged her to call her vascular surgeon and have recommendations from both them as well as following up with ENT regarding the issue. Provided Rx for Xarelto. Provided prescription for acetaminophen. Continue to advise against the use of NSAIDs while taking Xarelto. Differential Diagnosis Differential diagnosis: Likely superficial thrombophlebitis, lower extremity edema, deep vein thrombosis of lower extremity and other (PE; considered ischemic limb) Lab Data Attestation: I reviewed the patient's lab results. 07/15/24 22:20 07/15/24 22:20 Labs: Lab Results 07/15/24 07/15/24 Range/Units 22:20 23:48 WBC 10.4 H (4.5-10.0) K/mm3 RBC 4.12 L (4.2-5.4) M/mm3 Hgb 10.4 L (12.0-15.0) g/dL Hct 33.3 L (37.0-47.0) % MCV 80.8 (80-100) fl MCH 25.2 L (26-34) pg MCHC 31.2 L (32-36) g/dl RDW 15.4 H (11.5-14.5) % Plt Count 274 (150-375) k/mm3 MPV 9.9 (7.4-10.4) fl Immature Gran % (Auto) 0.3 (0-0.5) % Neut % (Auto) 62.1 (45.5-73.1) % Lymph % (Auto) 27.4 (18.3-44.2) % [place] % (Auto) 7.6 (2.6-8.5) % Eos % (Auto) 2.1 (0-4.4) % Baso % (Auto) 0.5 (0.2-1.2) % Lymph # (Auto) 2.86 (0.9-3.2) K/mm3 [place] # (Auto) 0.8 H (0.1-0.6) K/mm3 Eos # (Auto) 0.2 (0-0.3) K/mm3 Baso # (Auto) 0.1 (0.0-0.1) K/mm3 Abs Immat Gran (auto) 0.03 (0.00-0.031) K/mm3 Absolute Neuts (auto) 6.5 (1.3-6.7) K/mm3 Absolute Nucleated RBC 0.000 (0.0-0.012) K/mm3 Nucleated RBC % 0.0 (0.0-0.2) % PT 13.8 (11.1-14.7) Seconds INR 1.0 APTT 22.3 (22.3-36.8) Seconds Sodium 138 (137-145) mmol/L Potassium 3.8 (3.4-5.0) mmol/L Chloride 107 (98-107) mmol/L Carbon Dioxide 20 L (22-30) mmol/L Anion Gap 11 (4-12) mmol/L BUN 20 H D (7-17) mg/dL Creatinine 1.07 H (0.7-1.0) mg/dL Estim Creat Clear Calc 55 ml/min Estimated GFR 56 L (59 - ) Glucose 82 (65-110) mg/dL Calcium 9.1 (8.4-10.2) mg/dL Total Bilirubin 0.2 (0.2-1.3) mg/dL AST 18 (14-36) U/L ALT 12 (6-35) U/L Alkaline Phosphatase 57 (38-126) U/L Troponin I < 0.012 (0.000-0.034) ng/mL NT-Pro-B Natriuret Pep 47 (19.9-100) pg/mL Total Protein 7.0 (6.3-8.2) g/dL Albumin 4.0 (3.5-5.1) g/dL POC Urine HCG, Qual Negative (Negative) Imaging Data Radiologist's impression: CTA Chest Stat Rad: Artifact degrades image quality limiting exam. No pulmonary embolism is seen. No incidental findings. Impressions Venous Doppler Study 07/15/24 21:35 IMPRESSION: deep vein thrombosis. IMPRESSION: 1. No pulmonary embolus. ECG Data EKG #1: Attestation EKG: I personally reviewed and interpreted this ECG as follows: ECG completion date: 07/15/24 ECG completion time: 23:29 Interpretation: Normal sinus rhythm at a rate of 87 beats per minute. WA interval 134. QRS 86. QT/QTC 355/400. Good R-wave progression across the precordial leads. No T- wave inversions. Discharge Plan Discharge Clinical Impression: Leukocytosis, Normocytic anemia, Deep vein thrombosis (DVT) of left lower extremity Patient Disposition: Home, Self-Care Condition: Stable Instructions: Antibiotic Form, Deep Vein Thrombosis (ED), Leukocytosis (ED), Anemia (ED) Additional Instructions: After speaking with the on-call vascular surgeon at [place], they recommend restarting your Xarelto and following up with your vascular surgeon Dr. Umberto Garcia by calling their office immediately in the morning. A prescription for Xarelto has been provided. If There is difficulty paying for this, a coupon has been provided. As before, NSAID medications are contraindicated with this (ibuprofen, Advil, Aleve, Naprosyn, naproxen, Motrin, etc.). However, acetaminophen/Tylenol is safe to take (up to 4000mg/day). You are obviously at increased bleeding risk. If you fall or are in an accident, it is important you tell someone that you are on this anticoagulation. Return to the emergency department with any new or worsening symptoms. Patient Language: Sammarinese Prescriptions: New Xarelto DVT-PE Treat 30d Start 15 mg (42)- 20 mg (9) tablets,dose pack See Rx Instructions .ROUTE .COMPLEX Qty: 51 0RF Rx Instructions: take one-15 mg tablet twice daily for 21 days, then one-20 mg tablet once daily; must take with meal/food acetaminophen 500 mg capsule 1,000 mg PO Q6H PRN (Reason: pain) Qty: 30 0RF No Action albuterol sulfate 90 mcg/actuation HFA aerosol inhaler 1 inh inhalation Q4H PRN (Reason: Shortness Of Breath) alprazolam 1 mg tablet 1 mg PO DAILY PRN (Reason: Anxiety) levothyroxine 175 mcg capsule 175 mcg PO DAILY bupropion HCl 150 mg tablet sustained-release 12 hr 150 mg PO DAILY hydroxyzine pamoate 50 mg capsule 50 mg PO BID lamotrigine 25 mg tablet 50 mg PO DAILY clonidine HCl 0.2 mg tablet 0.2 mg PO HS cyanocobalamin (vitamin B-12) 1,000 mcg/mL solution 1,000 mcg IM MONTHLY ferrous sulfate [Iron (ferrous sulfate)] 325 mg (65 mg iron) Tablet 325 mg PO BID polyethylene glycol 3350 [Miralax] 17 gram/dose Powder 17 g PO DAILY PRN (Reason: Constipation) ondansetron 4 mg tablet,disintegrating 4 - 8 mg PO TID PRN (Reason: Nausea) fluticasone propionate 50 mcg/actuation spray,suspension 1 spray INTRANASAL DAILY diazepam 5 mg tablet 5 - 10 mg PO DAILY PRN (Reason: Anxiety) metoclopramide HCl 10 mg tablet 10 mg PO TIDWMEAL dexmethylphenidate [Focalin XR] 20 mg capsule,ER biphasic 50-50 20 mg PO DAILY cholecalciferol (vitamin D3) [Vitamin D3] 125 mcg (5,000 unit) Tablet 125 mcg PO DAILY Xarelto 20 mg tablet 20 mg PO DAILY Linzess 145 mcg capsule 145 mcg PO DAILY thiamine HCl (vitamin B1) 1 tab-cap PO DAILY vitamin A 1 cap PO DAILY zinc 1 tab-cap PO DAILY ergocalciferol (vitamin D2) 1,250 mcg (50,000 unit) capsule 1,250 mcg PO WEEKLY topiramate 100 mg tablet 150 mg PO DAILY ketoconazole 2 % shampoo 1 applic TOPICAL PRN PRN (Reason: DERMATITIS) cyclobenzaprine 10 mg tablet 10 mg PO TID PRN (Reason: muscle spasm) Qty: 20 0RF Follow-up/Referrals: Blayne,BRADY Higgins [Primary Care Provider] - Stand Alone Forms: Work/School Release IP Time of Disposition: 04:48
--- OUTSIDE RECORDS SUMMARY | 2024-07-15 22:13 | XMS_ITS | Encounter Summary ---
Author Organization [facility] Healthcare Address [address] [place] [address] Care Team Providers Care Color Maker Dyer Name Role Phone Pierre Cisneros Primary Care Provider + Encounter Details Date Type Department Care Team (Late st Contact Info) Description 07/15/2024 Telephone Radiology [address] [place] [address] Naveed Churchill MD [facility] [phone] [place] [address] Social History Tobacco Use Types Packs/Day Years [...] on file Legal Sex Female 7:09 AM [employer] INSPECT[employer] Gender Identity Female 10/24/2023 9:52 AM CDT [...] on filedocumented in this encounter Care Teams Color Maker Dyer Relationship Specialty Start Date End Date Pierre Cisneros PA [address] [place] [address] PCP - General Internal Medicine 09/04/23 documented as of this encounter
--- OUTSIDE RECORDS SUMMARY | 2024-07-15 22:13 | XMS_ITS | Referral Summary ---
Author Organization [facility] Address [address] [place] [address] Care Team Providers Care Price Changer Name Role Phone Pierre Cisneros Primary Care Provider + Encounters Date Type Department Care Team Description 07/15/2024 Telephone Radiology 1 [place] [address] Naveed Churchill MD 07/15/[address] [facility] Radiology 1 [place] [address] Becky Mtz, RN 07/14/[address] [facility] Radiology 1 [place] [address] Becky Mtz, RN 07/14/2024 9:30 AM CDT Lab [facility] - Lab Collection [facility] [address] [address] Iron deficiency anemia, unspecified iron deficiency anemia type 07/14/2024 10:15 AM CDT Office Visit [facility] Hematology [address] [facility] 6 [place] [phone] Anna Rizzo MD Anemia, unspecified type (Primary Dx); Iron deficiency anemia, unspecified iron deficiency anemia type 07/13/[address] [facility] Radiology 1 [place] [address] Becky Mtz, RN 07/13/[address] [facility] Radiology 1 [place] [address] Becky Mtz, RN May-Thurner syndrome (Primary Dx) 07/08/2024 1:00 PM CDT Office Visit [facility] Radiology, Interventional Radiology [address] [facility] [address] [place] [address] Varsha Lizarraga PA May-Thurner syndrome (Primary Dx); Deep venous thrombosis (HCC); Positive antinuclear antibody 07/08/2024 11:00 AM CDT Ancillary Procedure [facility] Vascular Lab at the [facility] [address] [place] [address] 8th [place] [address] [place] [address] May-Thurner syndrome 06/26/[address] [facility] Radiology [address] [place] [address] Becky Mtz, RN 06/25/[address] [facility] Radiology [address] [place] [address] Becky Mtz, RN 06/22/[address] [facility] Radiology [address] [place] [address] Becky Mtz, RN 06/19/2024 Telephone [facility] Radiology, Interventional Radiology [address] [facility] [address] [address] Becky Olivo, YANET Appointment 06/11/[address] [facility] Radiology [address] [place] [address] Becky Mtz, RN 06/10/[address] [facility] Radiology [address] [place] [address] Becky Mtz, RN 05/25/2024 Telephone [facility] [address] [facility] 3rd Floor [address] [place] [phone] Caryl Nash LPN 05/20/2024 Telephone [facility] Rheumatology [address] [place] [address] [address] [place] [phone] Mendiola, Cellana T., RMA from Last 3 Months Allergies Active Allergy Reactions Criticality Noted Date Comments Ciprofloxacin Nausea only,Vomiting Reaction: Nausea, Vomiting, Latex Rash Medium 01/12/2011 rash Morphine Swelling,Anaphylaxis ,Unknown High 07/06/2010 Throat swelling Sulfa (Sulfonamide Antibiotics) Nausea And Vomiting,Rash,Nausea only,Vomiting Medium 07/06/2010 Medications levothyroxine (SYNTHROID) 175 mcg tablet Take 1 tablet (175 mcg total) 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 Gender Identity Female 10/24/2023 9:52 AM [...] on file Medical Devices Implanted Type Area Drafter (Cad) Electronic Device Identifier Shelf Expiration Date Model / Serial / Lot [employer] Abre 16mm 100mm Self Expand Rotate Thumbwheel Hemostatic Valve [id number] - [id number] Implanted:Qty: 1 on 10/15/2022 at [facility] [employer] 10/30/2024 [id number] / / [id number] [employer] Abre 12mm 120mm Self Expand Rotate Thumbwheel Hemostatic Valve [id number] - [id number] Implanted:Qty: 1 on 11/14/2023 at [facility] [employer] 01/16/2025 [id number] / / [id number] Procedures Procedure Name Priority Date/Time Associated Diagnosis [...] 6.5 K/cumm Comment:Testing performed by : [facility]e [facility], [address] [place], [place] [phone] Lymphocyte abs 2.1 0.8 - 3.3 K/cumm CERNER BJ Comment:Testing performed by : [facility], [address] [place] [phone] Monocyte abs 0.6 0.2 - 0.8 K/cumm CERNER BJ Comment:Testing performed by : [facility], [address] [place] [phone] Eosinophil abs 0.2 0.0 - 0.5 K/cumm CERNER BJH Comment:Testing performed by : [facility], [address] [place] [phone] Basophil abs 0.0 0.0 - 0.1 K/cumm CERNER BJ Comment:Testing performed by : [facility], [address] [place] [phone] Neutrophil pct 45.7 % CERNORMA AVALOS Comment: Interpretive Data Percent cell count reference ranges are not reported, since discordance with absolute values may lead to misinterpretation of CBC data. Current Interpretive Data was last revised on 2017. Testing performed by: [facility], [address] [place] [phone] Lymphocyte pct 39.3 % CERNORMA AVALOS Comment: Interpretive Data Percent cell count reference ranges are not reported, since discordance with absolute values may lead to misinterpretation of CBC data. Current Interpretive Data was last revised on 2017. Testing performed by: [facility], [address] [place] [phone] Monocyte pct 10.8 % CERNORMA AVALOS Comment: Interpretive Data Percent cell count reference ranges are not reported, since discordance with absolute values may lead to misinterpretation of CBC data. Current Interpretive Data was last revised on 2017. Testing performed by: [facility], [address] [place] [phone] Eosinophil pct 3.4 % CERNORMA AVALOS Comment: Interpretive Data Percent cell count reference ranges are not reported, since discordance with absolute values may lead to misinterpretation of CBC data. Current Interpretive Data was last revised on 2017. Testing performed by: [facility], [address] [place] [phone] Basophil pct 0.8 % CERNORMA AVALOS Comment: Interpretive Data Percent cell count reference ranges are not reported, since discordance with absolute values may lead to misinterpretation of CBC data. Current Interpretive Data was last revised on 2017. Testing performed by: [facility], [address] [place] [phone] Blood 07/14/2024 9:31 AM CDT 07/14/2024 9:39 AM CDT Anna Rizzo MD LAB BLOOD ORDERABLES Final Result TEZ AVALOS [facility] Department [place] [address] * (ABNORMAL) CBC with auto differential (07/14/2024 9:31 AM CDT) WBC 5.4 3.8 - 9.9 K/cumm Comment:Testing performed by : [facility], [address] [place] [address] Hgb 10.3(L) 11.9 - 15.5 g/dL CERNORMA AVALOS Comment:Testing performed by : [facility], [address] [place] [address] Hct 32.2(L) 35.6 - 45.5 % TEZ AVALOS Comment:Testing performed by : [facility], [address] [place] [address] Plt 304 150 - 400 K/cumm TEZ AVALOS Comment:Testing performed by : [facility], [address] [place] [address] MPV 8.0 6.8 - 10.4 fL [facility] Comment:Testing performed by : [facility]e [facility], [address] [place] [address] RBC 4.10 3.90 - 5.20 M/cumm TEZ AVALOS Comment:Testing performed by : [facility], [address] [place] [address] MCV 78.6(L) 81.3 - 96.4 fL CERNORMA AVALOS Comment:Testing performed by : [facility], [address] [place] [address] MCH 25.1(L) 27.1 - 33.3 pg CERNORMA BJ Comment:Testing performed by : [facility], [address] [place] [address] MCHC 31.9(L) 32.3 - 35.7 g/dL CERNORMA AVALOS Comment:Testing performed by : [facility], [address] [place] [address] RDW CV 16.8(H) 11.1 - 14.9 % [facility] Comment:Testing performed by : [facility], [address] [place], [place] [phone] NRBC abs 0.00 0.00 - 0.01 K/cumm [facility] Comment:Testing performed by : [facility], [address] [place] [phone] Blood 07/14/2024 9:31 AM CDT 07/14/2024 9:39 AM CDT Anna Rizzo MD LAB BLOOD ORDERABLES Final Result [facility] Department [place] [address] * Reticulocyte Count (07/14/2024 9:31 AM CDT) [facility], absolute 0.059 0.020 - 0.100 M/cumm Comment:Testing performed by : [facility], [address] [place], [place] [phone] Retics 1.4 0.5 - 1.8 % [facility] Comment:Testing performed by : [facility], [address] [place], [place] [phone] Blood 07/14/2024 9:31 AM CDT 07/14/2024 9:39 AM CDT Anna Rizzo MD LAB BLOOD ORDERABLES Final Result [facility] [place] [address] * (ABNORMAL) Iron profile w/ IBC (07/14/2024 9:31 AM CDT) Iron 23(L) 35 - 145 mcg/dL TIBC 357 250 - 400 mcg/dL [facility] Transferrin saturation 6(L) 20 - 50 % [facility] Blood 07/14/2024 9:31 AM CDT 07/14/2024 9:42 AM CDT Anna Rizzo MD LAB BLOOD ORDERABLES Final Result Performing Organization Address [facility] Co de Phone Number [facility] [place] [address] * (ABNORMAL) Ferritin (07/14/2024 9:31 AM CDT) Ferritin 12(L) 13 - 150 ng/mL Blood 07/14/2024 9:31 AM CDT 07/14/2024 9:42 AM CDT Anna Rizzo MD LAB BLOOD ORDERABLES Final Result Performing Organization Address [facility] Co de Phone Number [facility] [place] [address] * US VEIN DUPLEX LOWER EXTREMITY LEFT LIMITED, UNILATERAL (07/08/2024 11:19 AM CDT) Anatomical Region Laterality Modality Vascular Left Ultrasound 07/08/2024 10:5 8 AM CDT Narrative 07/10/2024 7:45 AM CDT [facility] - Department of Vascular Surgery, Vascular Laboratory [address] [place] [address] Lower Extremity Venous Ultrasound Report Patient Name: LUCIE PARKS : 1980 (43y 10m) Study Date: 07/08/2024 10:58:37 AM Gender: F Tech: Vickey CONRAD Location: [facility] Ref Provider: UMBERTO MAGANA Quality: [...] INDICATIONS: I87.1 Compression of vein. FINDINGS: Performing Vice President Commercial Bank: Erica Conrad RVT. Left: Venous Doppler signals [...] above. Electronically Signed By: Rolf Nair MD [facility] [phone] 07/10/2024 7:16:00 AM CDT Procedure Note Rolf Nair MD - 07/10/2024 [facility] - Department of Vascular Surgery,Vascular Laboratory [address] [place] [address] Lower Extremity Venous Ultrasound Report Patient Name: LUCIE PARKS : 1980 (43y 10m) Study Date: 07/08/2024 10:58:37 AM Gender: F Tech: Vickey CONRAD Location: [facility] Provider: UMBERTO MAGANA Quality: Adequate Order Provider: UMBERTO MAGANA PROCEDURES: Vascular Report: Venous Duplex imaging was performed in the left lower extremity. Thecommon femoral, femoral, popliteal, posterior tibial, peroneal veins were evaluated forpatency, spontaneity and phasicity with Doppler, compression and augmentationmaneuvers. Great saphenous vein proximal at the junction was evaluated with compressionmaneuvers. INDICATIONS: I87.1 Compression of vein. FINDINGS: Performing Vice President Commercial Bank: Erica Conrad RVT. Left: Venous Doppler signals [...] above. Electronically Signed By: Rolf Nair MD [facility] [phone] 07/10/2024 7:16:00 AM CDT Umberto Magana MD [facility] PROCEDURES Final Result * Pap and High Risk HPV, reflex to Genotyping (10/17/2022 4:58 PM CDT) Thin prep (Pap test) 10/17/2022 4:58 PM CDT 10/17/2022 6:01 PM CDT Narrative PATHOLOGY [facility] - 10/25/2022 2:38 PM CDT EPIC results best viewed via link to PDF [facility] [place] [address] Note to Patients: This report may contain [...] Gender: F : 1980 (Age: 42) Address: [address] [place] [address] Hospital #: [id number] Service: Medical Location: [place] [id number] Patient Type: [facility] Inpatient Taken: 10/17/2022 Received: 10/17/2022 Accessioned: 10/18/2022 [...] 68. This HPV test was performed at [facility] in [place], [place] utilizing the Gen-Probe Aptima assay. This specimen has been rescreened in accordance with this laboratory's Middleware Engineer Program. /10/25/2022 14:38 SANDI Gill(ASCP) Report Electronically [...] histologic results be correlated for laboratory quality systems technician & improvement standards. FOR ALL HIGH-GRADE CASES [...] AUB. The HPV test was performed by [facility], [address] [place] [address]. Report Images and scanned documents, if included only viewable in PDF version The performance characteristics of some immunohistochemical stains, in-situ hybridization and fluorescence in-situ hybridization tests and immunophenotyping by flow cytometry cited in this report (if any) were determined by the Surgical Pathology Department at [facility] as part of an ongoing quality analyst program and in compliance with federally mandated [...] determined by the Surgical Pathology Department of [facility]. It has not been cleared or approved by the U. S. Food and Drug Administration. Jodee De Santiago MD LAB CYTOLOGY O RDERABLES Final Result PATHOLOGY [facility] 3rd Floor [place], [place] [phone] from Last 3 Months or Most Recently Relevant to Health Maintenance Insurance [facility] Advance Directives For more information, please contact: [phone] * Full Code (Latest Code Status on File) Date Activated Date Inactivated Comments 11/14/2023 5:19 PM 11/15/2023 7:00 PM * Full Code Date Activated Date Inactivated Comments 11/14/2023 9:40 AM 11/14/2023 5:19 PM * Full Code Date Activated Date Inactivated Comments 10/15/2022 2:44 PM 10/18/2022 7:48 PM Care Teams Price Changer Relationship Specialty Start Date End Date Pierre Cisneros PA [address] [place] [id number] PCP - General Internal Medicine 09/04/23
--- OUTSIDE RECORDS SUMMARY | 2024-07-15 22:13 | XMS_ITS | Clinical Summary ---
Author Organization [facility] Address [address] [place] [address] Phone Care Team Providers Care Area Operations Director Name Role Phone Soila Santos MD Unavailable Echo Pollard MD Primary Care Provider [phone] Allergies Active Allergy Reactions Criticality Noted Date [...] Department Care Team Description 07/10/2024 Transcribe Orders [facility] Preop/Pacu II 1 [place] [address] Adair Daily MD Preop testing [...] Body Mass Index 23.37 04/29/2023 1:09 PM DIRECTOR COMMERCIAL SALES Plan of Treatment Upcoming Encounters Date Type Department Care Team (Latest Contact Info) Description 07/21/2024 9:10 AM CDT [facility] 1 [place] [address] Adair Daily MD [address] [place] [address] 07/21/2024 9:10 AM CDT - 07/21/2024 10:40 AM CDT [facility] 1 [place] [address] Adair Daily MD [address] [place] [address] NASAL SEPTOPLASTY WITH BALLOON ASSIST Scheduled Procedures [...] Insurance MEDICAID [employer] Care Teams Area Operations Director Relationship Specialty Start Date End Date Echo Pollard MD [facility] [place] [address] PCP - General Primary Care 01/01/23 Soila Santos MD [address] [phone] Consulting Physician Endocrinology 12/17/22
--- OUTSIDE RECORDS SUMMARY | 2024-07-15 22:13 | XMS_ITS | Encounter Summary ---
Author Organization [facility] Healthcare Address [address] [place] [address] Care Team Providers Care Public Health Aide Name Role Phone Pierre Cisneros Primary Care Provider + Encounter Details Date Type Department Care Team (Late st Contact Info) Description 07/14/2024 Telephone [facility] Radiology 1 [place] [address] Becky Mtz, RN Social History Tobacco Use [...] on file Legal Sex Female 7:09 AM [place] MAR[place] Gender Identity Female 10/24/2023 9:52 AM CDT [...] on filedocumented in this encounter Care Teams Public Health Aide Relationship Specialty Start Date End Date Pierre Cisneros PA [facility] [place] [address] PCP - General Internal Medicine 09/04/23 documented as of this encounter
--- OUTSIDE RECORDS SUMMARY | 2024-07-15 22:13 | XMS_ITS | Encounter Summary ---
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
--- OUTSIDE RECORDS SUMMARY | 2024-07-15 22:13 | XMS_ITS | Clinical Summary ---
Author Organization [facility] Address [address] [place] [address] Care Team Providers Care Broth Mixer Name Role Phone Echo Pollard MD Primary Care Provider [phone] David Alicea MD Unavailable Source Comments [facility],non-owned Affiliates and Associated Physician Practices is amultiple site organization consisting of ambulatory clinics and hospital sitesin [place], [place], [place] and [place]. This disclosure is being madepursuant to the Care Everywhere program and may not contain all information available regarding this patient. Last updated 18.[facility] Allergies Active Allergy Reactions Criticality Noted Date [...] tablet by mouth 10/19/2022 Active HYDROcodone-aceta minophen (Volin) 5-325 MG tablet 05/10/2023 Active fluticasone propionate (Flonase) 50 MCG/ACT nasal spray 04/23/2023 Active fluconazole (Diflucan) 150 MG tablet 06/06/2022 Active vitamin D, ergocalciferol, (Drisdol) 1.25 MG (35957 UT) capsule 05/10/2023 Active enoxaparin (Lovenox) 60 [...] ?triploidy with Dr. Alejandro, D&C done at [facility]; the other due to low [...] Overview (07/06/2010): With mesh Dr. Flynn at [facility] Tobacco use complicating or childbirth 07/06/2010 Encounter [...] Comments Blood Pressure 109/80 05/14/2023 1:41 PM LABEL PRINTER Pulse 86 05/14/2023 1:41 PM LABEL PRINTER Temperature 36.5 C (97.7 F) 12/05/2021 8:23 PM CDT Respiratory Rate 16 05/14/2023 1:41 PM LABEL PRINTER Oxygen Saturation 94% 12/05/2021 9:00 PM CDT Inhaled Oxygen Concentration 21% 01/15/2011 1 2:06 AM CDT Weight 62.6 kg (138 lb) 05/14/2023 1:41 PM LABEL PRINTER Height 160 cm (5' 3 ) 05/14/2023 1:41 PM LABEL PRINTER Body Mass Index 24.45 05/14/2023 1:41 PM LABEL PRINTER Plan of Treatment Health Maintenance Due Date [...] 10:41 PM 01/17/2011 1:49 AM Care Teams Broth Mixer Relationship Specialty Start Date End Date Echo Pollard MD [address] [place] [address] [address] [place] [phone] PCP - General Family Medicine 05/14/23 David Alicea MD [address] [place] [phone] Neurology 05/14/23
--- OUTSIDE RECORDS SUMMARY | 2024-07-15 22:13 | XMS_ITS | Encounter Summary ---
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
--- OUTSIDE RECORDS SUMMARY | 2024-07-15 22:13 | XMS_ITS | Clinical Summary ---
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 Alejandro, D&C done at [facility]; the other due to low [...] Overview (11/01/2020): With mesh Dr. Flynn at [facility] Tobacco use disorder complic ating , childbirth, [...] Care Team Description 07/15/2024 Telephone Radiology 1 [place] [address] Naveed Churchill MD 07/15/2024 Telephone [facility] Radiology 1 [place] [address] Becky Mtz, RN 07/14/2024 10:15 AM CDT Office Visit [facility] Hematology [address] [facility] Floor 6 [place] [phone] Anna Rizzo MD Anemia, unspecified type (Primary Dx); Iron deficiency anemia, unspecified iron deficiency anemia type 07/14/2024 9:30 AM CDT Lab [facility] - Lab Collection [address] [facility] Floor 6 [place] [address] Iron deficiency anemia, unspecified iron deficiency anemia type 07/14/2024 Telephone [facility] Radiology 1 [place] [address] Becky Mtz, YANET 07/13/2024 Telephone [facility] Radiology 1 [place] [address] Becky Mtz, RN 07/13/2024 Orders Only [facility] Radiology [address] [place] [address] Becky Mtz, RN May-Thurner syndrome (Primary Dx) 07/08/2024 1:00 PM CDT Office Visit [facility] Radiology, Interventional Radiology [address] [facility] [address] [place] [phone] Varsha Lizarraga PA May-Thurner syndrome (Primary Dx); Deep venous thrombosis (HCC); Positive antinuclear antibody 07/08/2024 11:00 AM CDT Ancillary Procedure [facility] Vascular Lab at [facility] [address] [facility] 8th [place] [address] May-Thurner syndrome 06/26/2024 Telephone [facility] Radiology [address] [place] [address] Becky Mtz, RN 06/25/2024 Telephone [facility] Radiology 1 [place] [address] Becky Mtz, RN 06/22/2024 Telephone [facility] Radiology 1 [place] [address] Becky Mtz, RN 06/19/2024 Telephone [facility] Radiology, Interventional Radiology [address] [facility] [address] [place] [address] Becky Olivo, RN Appointment 06/11/2024 Telephone [facility] Radiology 1 [place] [address] Becky Mtz, RN 06/10/2024 Telephone [facility] Radiology [address] [place] [address] Becky Mtz, RN 05/25/2024 Telephone [facility]ne[facility] [address] [facility] 3rd Floor [address] [place] [phone] Caryl Nash LPN 05/20/2024 Telephone 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 Gender Identity Female 10/24/2023 9:52 AM CDT [...] history exists Medical Devices Implanted Type Area Carbon Paper Interleafer Device Identifier Shelf Expiration Date Model / Serial / Lot [employer] Abre 16mm 100mm Self Expand Rotate Thumbwheel Hemostatic Valve [id number] - [id number] Implanted:Qty: 1 on 10/15/2022 at [facility] [employer] 10/30/2024 [id number] / / [id number] [employer] Abre 12mm 120mm Self Expand Rotate Thumbwheel Hemostatic Valve [id number] - [id number] Implanted:Qty: 1 on 11/14/2023 at [facility] [employer] 01/16/2025 [id number] / / [id number] Procedures Procedure Name Priority Date/Time Associated Diagnosis [...] - 6.5 K/cumm Comment:Testing performed by : [facility], [address] [place], [place] [id number] Lymphocyte abs 2.1 0.8 - 3.3 K/cumm [facility] Comment:Testing performed by : [facility], [address] [place] [address] Monocyte abs 0.6 0.2 - 0.8 K/cumm [facility] Comment:Testing performed by : [facility], [address] [place], [place] [id number] Eosinophil abs 0.2 0.0 - 0.5 K/cumm [facility] Comment:Testing performed by : [facility], [address] [place], [place] [phone] Basophil abs 0.0 0.0 - 0.1 K/cumm [facility] Comment:Testing performed by : [facility], [address] [place] [address] Neutrophil pct 45.7 % [facility] Comment: Interpretive Data Percent cell count reference ranges are not reported, since discordance with absolute values may lead to misinterpretation of CBC data. Current Interpretive Data was last revised on 2017. Testing performed by: [facility], [address] [place] [phone] Lymphocyte pct 39.3 % [facility] Comment: Interpretive Data Percent cell count reference ranges are not reported, since discordance with absolute values may lead to misinterpretation of CBC data. Current Interpretive Data was last revised on 2017. Testing performed by: [facility], [address] [place] [phone] Monocyte pct 10.8 % [facility] Comment: Interpretive Data Percent cell count reference ranges are not reported, since discordance with absolute values may lead to misinterpretation of CBC data. Current Interpretive Data was last revised on 2017. Testing performed by: [facility], [address] [place], [place] [phone] Eosinophil pct 3.4 % [facility] Comment: Interpretive Data Percent cell count reference ranges are not reported, since discordance with absolute values may lead to misinterpretation of CBC data. Current Interpretive Data was last revised on 2017. Testing performed by: [facility], [address] [place] [phone] Basophil pct 0.8 % [facility] Comment: Interpretive Data Percent cell count reference ranges are not reported, since discordance with absolute values may lead to misinterpretation of CBC data. Current Interpretive Data was last revised on 2017. Testing performed by: [facility], [address] [place] [address] Blood 07/14/2024 9:31 AM CDT 07/14/2024 9:39 AM CDT us Anna Rizzo MD LAB BLOOD ORDERABLES Final Result [facility] Department [place] [address] * (ABNORMAL) CBC with auto differential (07/14/2024 9:31 AM CDT) WBC 5.4 3.8 - 9.9 K/cumm Comment:Testing performed by : [facility], [address] [place] [address] Hgb 10.3(L) 11.9 - 15.5 g/dL [facility] Comment:Testing performed by : [facility], [address] [place] [address] Hct 32.2(L) 35.6 - 45.5 % [facility] Comment:Testing performed by : [facility], [address] [place] [address] Plt 304 150 - 400 K/cumm [facility] Comment:Testing performed by : [facility], [address] [place] [address] MPV 8.0 6.8 - 10.4 fL [facility] Comment:Testing performed by : [facility], [address] [place] [address] RBC 4.10 3.90 - 5.20 M/cumm [facility] Comment:Testing performed by : [facility], [address] [place] [address] MCV 78.6(L) 81.3 - 96.4 fL [facility] Comment:Testing performed by : [facility], [address] [place] [address] MCH 25.1(L) 27.1 - 33.3 pg [facility] Comment:Testing performed by : [facility], [address] [place] [address] MCHC 31.9(L) 32.3 - 35.7 g/dL [facility] Comment:Testing performed by : [facility], [address] [place] [address] RDW CV 16.8(H) 11.1 - 14.9 % [facility] Comment:Testing performed by : [facility], [address] [place] [address] NRBC abs 0.00 0.00 - 0.01 K/cumm [facility] Comment:Testing performed by : [facility], [address] [place] [address] Blood 07/14/2024 9:31 AM CDT 07/14/2024 9:39 AM CDT Anna Rizzo MD LAB BLOOD ORDERABLES Final Result [facility] [place] [address] * Reticulocyte Count (07/14/2024 9:31 AM CDT) [facility] Retics, absolute 0.059 0.020 - 0.100 M/cumm Comment:Testing performed by : [facility], [address] [place] [phone] Retics 1.4 0.5 - 1.8 % [facility] Comment:Testing performed by : [facility], [address] [place] [phone] Blood 07/14/2024 9:31 AM CDT 07/14/2024 9:39 AM CDT us Anna Rizzo MD LAB BLOOD ORDERABLES Final Result Performing Organization Address [facility] Co de Phone Number [facility] [place] [address] * (ABNORMAL) Iron profile w/ IBC (07/14/2024 9:31 AM CDT) [facility] Iron 23(L) 35 - 145 mcg/dL TIBC 357 250 - 400 mcg/dL [facility] Transferrin saturation 6(L) 20 - 50 % [facility] Blood 07/14/2024 9:31 AM CDT 07/14/2024 9:42 AM CDT us Anna Rizzo MD LAB BLOOD ORDERABLES Final Result Performing Organization Address [facility] [place] [address] * (ABNORMAL) Ferritin (07/14/2024 9:31 AM CDT) [facility] Ferritin 12(L) 13 - 150 ng/mL Blood 07/14/2024 9:31 AM CDT 07/14/2024 9:42 AM CDT us Anna Rizzo MD LAB BLOOD ORDERABLES Final Result [facility] Department of Laboratories [place], [place] [id number] * US VEIN DUPLEX LOWER EXTREMITY LEFT LIMITED, UNILATERAL (07/08/2024 11:19 AM CDT) Anatomical Region Laterality Modality Vascular Left Ultrasound 07/08/2024 10:5 8 AM CDT Narrative 07/10/2024 7:45 AM CDT [facility] - Department of Vascular Surgery, Vascular Laboratory [address] [place] [address] Lower Extremity Venous Ultrasound Report Patient Name: LUCIE PARKS : 1980 (43y 10m) Study Date: 07/08/2024 10:58:37 AM Gender: F Tech: Vickey CONRAD Location: [facility] Ref Provider: UMBERTO MAGANA Quality: [...] INDICATIONS: I87.1 Compression of vein. FINDINGS: Performing Unified Communications Architect: Erica Conrad RVT. Left: Venous Doppler signals [...] Electronically Signed By: Rolf Nair MD [facility] [phone] 07/10/2024 7:16:00 AM CDT Procedure Note Rolf Nair MD - 07/10/2024 [facility] - Department of Vascular Surgery,Vascular Laboratory [address] [place] [address] Lower Extremity Venous Ultrasound Report Patient Name: LUCIE PARKS : 1980 (43y 10m) Study Date: 07/08/2024 10:58:37 AM Gender: F Tech: Vickey CONRAD Location: [facility] Ref Provider: UMBERTO MAGANA Quality: Adequate Order Provider: UMBERTO MAGANA PROCEDURES: Vascular Report: Venous Duplex imaging was performed in the left lower extremity. Thecommon femoral, femoral, popliteal, posterior tibial, peroneal veins were evaluated forpatency, spontaneity and phasicity with Doppler, compression and augmentationmaneuvers. Great saphenous vein proximal at the junction was evaluated with compressionmaneuvers. INDICATIONS: I87.1 Compression of vein. FINDINGS: Performing Unified Communications Architect: Erica Conrad RVT. Left: Venous Doppler signals [...] Electronically Signed By: Rolf Nair MD [facility] [phone] 07/10/2024 7:16:00 AM CDT Umberto Magana MD IM US PROCEDURES Final Result * Pap and High Risk HPV, reflex to Genotyping (10/17/2022 4:58 PM CDT) Thin prep (Pap test) 10/17/2022 4:58 PM CDT 10/17/2022 6:01 PM CDT Narrative [facility]OLOGY [facility] - 10/25/2022 2:38 PM CDT EPIC results best viewed via link to PDF [facility] [place] [address] Note to Patients: This report may contain [...] Gender: Deborah : 1980 (Age: 42) Address: [place] [address] Hospital #: [id number] Service: Medical Location: [place] [address] Patient Type: [facility] Inpatient Taken: 10/17/2022 Received: 10/17/2022 Accessioned: [...] 68. This HPV test was performed at [facility] in [place], [place] utilizing the Gen-Probe Aptima assay. This specimen has been rescreened in accordance with this laboratory's Control Clerk Subassembly Program. /10/25/2022 14:38 SANDI Gill(ASCP) Report Electronically [...] clinical information and biopsy results as indicated. [facility] Clinical Laboratory Improvement Amendments (CLIA) mandate that cytologic and histologic results be correlated for laboratory corporate quality engineer & improvement standards. FOR ALL HIGH-GRADE CASES [...] AUB. The HPV test was performed by [facility], [address] [place] [address]. Report Images and scanned documents, if included only viewable in PDF version The performance characteristics of some immunohistochemical stains, in-situ hybridization and fluorescence in-situ hybridization tests and immunophenotyping by flow cytometry cited in this report (if any) were determined by the Surgical Pathology Department at [facility] as part of an ongoing quality control chemist program and in compliance with federally mandated [...] determined by the Surgical Pathology Department of [facility]. It has not been cleared or approved by the U. S. Food and Drug Administration. [facility] MD LAB CYTOLOGY O RDERABLES Final Result PATHOLOGY [facility] 3rd Floor [place], [place] [phone] from Last 3 Months or Most Recently Relevant to Health Maintenance Insurance Advance Directives For more information, please contact: [phone] * Full Code (Latest Code Status on File) Date Activated Date Inactivated Comments 11/14/2023 5:19 PM 11/15/2023 7:00 PM * Full Code Date Activated Date Inactivated Comments 11/14/2023 9:40 AM 11/14/2023 5:19 PM * Full Code Date Activated Date Inactivated Comments 10/15/2022 2:44 PM 10/18/2022 7:48 PM Care Teams Fryline Attendant Relationship Specialty Start Date End Date Pierre Cisneros PA [address] [place] [id number] PCP - General Internal Medicine 09/04/23
--- OUTSIDE RECORDS SUMMARY | 2024-07-15 22:13 | XMS_ITS ---
Author Organization [facility] Address [address] [place] [address] Care Team Providers Care Supervisor Of Research Name Role Phone Pierre Cisneros Primary Care [...] ?triploidy with Dr. Alejandro, D&C done at [facility]; the [...] Overview (11/01/2020): With mesh Dr. Flynn at [facility] Tobacco use disorder complic ating , childbirth, [...]
--- OUTSIDE RECORDS SUMMARY | 2024-07-15 22:13 | XMS_ITS | Encounter Summary ---
Author Organization [facility] Address [address] [place] [address] Phone Care Team Providers Care Reinforced Steel Placing Supervisor Name Role Phone Pierre Cisneros Primary Care Provider + Encounter Details Date Type Department Care Team (Late st Contact Info) Description 07/14/2024 10:15 AM CDT Office Visit [facility] Hematology [address] [facility] Floor 6 [place] [address] Anna Rizzo MD [address] [place] [address] Anemia, unspecified type (Primary Dx); [...] on file 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 Gender Identity Female 10/24/2023 9:52 AM [...] Reticulocyte Count (07/14/2024 9:31 AM CDT) Pathologist [facility] Retics, absolute 0.059 0.020 - 0.100 M/cumm Comment:Testing performed by : [facility] Heme Lab, [address] [place] [address] Retics 1.4 0.5 - 1.8 % [facility] Comment:Testing performed by : [facility], [address] [place] [address] Blood 07/14/2024 9:31 AM CDT 07/14/2024 9:39 AM CDT us Anna Rizzo MD LAB BLOOD ORDERABLES Final Result [facility] Department [place] [address] * (ABNORMAL) CBC with auto differential (07/14/2024 9:31 AM CDT) [facility] WBC 5.4 3.8 - 9.9 K/cumm Comment:Testing performed by : [facility]e [facility], [address] [place] [address] Hgb 10.3(L) 11.9 - 15.5 g/dL [facility] Comment:Testing performed by : [facility], [address] [place] [address] Hct 32.2(L) 35.6 - 45.5 % [facility] Comment:Testing performed by : [facility], [address] [place] [address] Plt 304 150 - 400 K/cumm [facility] Comment:Testing performed by : [facility], [address] [place] [address] MPV 8.0 6.8 - 10.4 fL [facility] Comment:Testing performed by : [facility], [address] [place] [address] RBC 4.10 3.90 - 5.20 M/cumm [facility] Comment:Testing performed by : [facility]e [facility], [address] [place], [place] [phone] MCV 78.6(L) 81.3 - 96.4 fL [facility] Comment:Testing performed by : [facility], [address] [place], [place] [phone] MCH 25.1(L) 27.1 - 33.3 pg [facility] Comment:Testing performed by : [facility]e [facility], [address] [place], [place] [phone] MCHC 31.9(L) 32.3 - 35.7 g/dL [facility] Comment:Testing performed by : [facility]e [facility], [address] [place], [place] [phone] RDW CV 16.8(H) 11.1 - 14.9 % [facility] Comment:Testing performed by : [facility], [address] [place], [place] [phone] NRBC abs 0.00 0.00 - 0.01 K/cumm [facility] Comment:Testing performed by : [facility], [address] [place], [place] [phone] Blood 07/14/2024 9:31 AM CDT 07/14/2024 9:39 AM CDT us Anna Rizzo MD LAB BLOOD ORDERABLES Final Result [facility] [place] [address] * (ABNORMAL) Iron profile w/ IBC (07/14/2024 9:31 AM CDT) Iron 23(L) 35 - 145 mcg/dL TIBC 357 250 - 400 mcg/dL [facility] Transferrin saturation 6(L) 20 - 50 % [facility] Blood 07/14/2024 9:31 AM CDT 07/14/2024 9:42 AM CDT Anna Rizzo MD LAB BLOOD ORDERABLES Final Result [facility] [address] * (ABNORMAL) Ferritin (07/14/2024 9:31 AM CDT) Ferritin 12(L) 13 - 150 ng/mL Blood 07/14/2024 9:31 AM CDT 07/14/2024 9:42 AM CDT Anna Rizzo MD LAB BLOOD ORDERABLES Final Result Performing Organization Address [facility] de Phone Number TE[facility] [place] [address] documented in this encounter Visit Diagnoses Diagnosis [...] 07/14/2024 documented in this encounter Care Teams Reinforced Steel Placing Supervisor Relationship Specialty Start Date End Date Pierre Cisneros PA [address] [place] [address] PCP - General Internal Medicine 09/04/23 documented as of this encounter
--- OUTSIDE RECORDS SUMMARY | 2024-07-15 22:14 | XMS_ITS | Encounter Summary ---
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 Gender Identity Female 10/24/2023 9:52 AM [...] - 6.5 K/cumm Comment:Testing performed by : [facility], [address] [place] [address] Lymphocyte abs 2.1 0.8 - 3.3 K/cumm [facility] Comment:Testing performed by : [facility], [address] [place] [phone] Monocyte abs 0.6 0.2 - 0.8 K/cumm CERNER [facility] Comment:Testing performed by : [facility], [address] [place], [place] [phone] Eosinophil abs 0.2 0.0 - 0.5 K/cumm CERNER [facility] Comment:Testing performed by : [facility], [address], [place] [address] Basophil abs 0.0 0.0 - 0.1 K/cumm [facility] Comment:Testing performed by : [facility], [address] [phone] Neutrophil pct 45.7 % [facility] Comment: Interpretive Data Percent cell count reference ranges are not reported, since discordance with absolute values may lead to misinterpretation of CBC data. Current Interpretive Data was last revised on 2017. Testing performed by: [facility], [address] [place] [phone] Lymphocyte pct 39.3 % C[facility]ER [facility] Comment: Interpretive Data Percent cell count reference ranges are not reported, since discordance with absolute values may lead to misinterpretation of CBC data. Current Interpretive Data was last revised on 2017. Testing performed by: [facility], [address] [place] [phone] Monocyte pct 10.8 % [facility]ER [facility] Comment: Interpretive Data Percent cell count reference ranges are not reported, since discordance with absolute values may lead to misinterpretation of CBC data. Current Interpretive Data was last revised on 2017. Testing performed by: [facility], [address] [place] [id number] Eosinophil pct 3.4 % C[facility]ER [facility] Comment: Interpretive Data Percent cell count reference ranges are not reported, since discordance with absolute values may lead to misinterpretation of CBC data. Current Interpretive Data was last revised on 2017. Testing performed by: [facility], [address] [place] [phone] Basophil pct 0.8 % [facility] Comment: Interpretive Data Percent cell count reference ranges are not reported, since discordance with absolute values may lead to misinterpretation of CBC data. Current Interpretive Data was last revised on 2017. Testing performed by: [facility], [address] [place] [phone] Blood 07/14/2024 9:31 AM CDT 07/14/2024 9:39 AM CDT Anna Rizzo MD LAB BLOOD ORDERABLES Final Result [facility] Department [place] [address] * (ABNORMAL) CBC with auto differential (07/14/2024 9:31 AM CDT) WBC 5.4 3.8 - 9.9 K/cumm Comment:Testing performed by : [facility], [address] [place] [address] Hgb 10.3(L) 11.9 - 15.5 g/dL C[facility]ER [facility] Comment:Testing performed by : [facility], [address] [place] [address] Hct 32.2(L) 35.6 - 45.5 % [facility] Comment:Testing performed by : [facility], [address] [place] [address] Plt 304 150 - 400 K/cumm C[facility]ER [facility] Comment:Testing performed by : [facility], [address] [place] [address] MPV 8.0 6.8 - 10.4 fL [facility] Comment:Testing performed by : [facility], [address] [place] [address] RBC 4.10 3.90 - 5.20 M/cumm [facility] Comment:Testing performed by : [facility], [address] [place] [address] MCV 78.6(L) 81.3 - 96.4 fL [facility] Comment:Testing performed by : [facility], [address] [place] [address] MCH 25.1(L) 27.1 - 33.3 pg [facility] Comment:Testing performed by : [facility], [address] [place] [address] MCHC 31.9(L) 32.3 - 35.7 g/dL [facility] Comment:Testing performed by : [facility], [address] [place], [place] [phone] RDW CV 16.8(H) 11.1 - 14.9 % [facility] Comment:Testing performed by : [facility], [address] [place], [place] [phone] NRBC abs 0.00 0.00 - 0.01 K/cumm [facility] Comment:Testing performed by : [facility], [address] [place] [phone] Blood 07/14/2024 9:31 AM CDT 07/14/2024 9:39 AM CDT Anna Rizzo MD LAB BLOOD ORDERABLES Final Result Performing Organization Address [facility] Co de Phone Number [facility] [place] [address] * Reticulocyte Count (07/14/2024 9:31 AM CDT) Pathologist [facility], absolute 0.059 0.020 - 0.100 M/cumm Comment:Testing performed by : [facility], [address] [place], [place] [phone] Retics 1.4 0.5 - 1.8 % [facility] Comment:Testing performed by : [facility], [address] [place] [phone] Blood 07/14/2024 9:31 AM CDT 07/14/2024 9:39 AM CDT Anna Rizzo MD LAB BLOOD ORDERABLES Final Result Performing Organization Address City/[facility] Co de Phone Number [facility] [place] [address] * (ABNORMAL) Ferritin (07/14/2024 9:31 AM CDT) Pathologist [facility] Ferritin 12(L) 13 - 150 ng/mL Blood 07/14/2024 9:31 AM CDT 07/14/2024 9:42 AM CDT us Anna Rizzo MD LAB BLOOD ORDERABLES Final Result Performing Organization Address City/State/[facility] Co de Phone Number [facility] Department [place] [address] * (ABNORMAL) Iron profile w/ IBC (07/14/2024 9:31 AM CDT) Iron 23(L) 35 - 145 mcg/dL TIBC 357 250 - 400 mcg/dL [facility] Transferrin saturation 6(L) 20 - 50 % [facility] Blood 07/14/2024 9:31 AM CDT 07/14/2024 9:42 AM CDT us Anna Rizzo MD LAB BLOOD ORDERABLES Final Result Performing Organization Address City/[facility] Co de Phone Number [facility] [place] [address] documented in this encounter Visit Diagnoses Diagnosis Iron deficiency anemia, unspecified iron deficiency anemia type documented in this encounter Care Teams Oncology Pharmacist Relationship Specialty Start Date End Date Pierre Cisneros PA [address] [place] [id number] PCP - General Internal Medicine 09/04/23 documented as of this encounter
[2024-07-15 22:30] LABS: Basophils Absolute Auto 0.1 K/mm3 (0.0-0.1); Basophils Percent Auto 0.5 % (0.2-1.2); Eosinophils Absolute Auto 0.2 K/mm3 (0-0.3); Eosinophils Percent Auto 2.1 % (0-4.4); Hematocrit 33.3 % (37.0-47.0); Hemoglobin 10.4 g/dL (12.0-15.0); Immature Granulocyte Absolute 0.03 K/mm3 (0.00-0.031); Immature Granulocyte Percent A 0.3 % (0-0.5); Lymphocytes Absolute Auto 2.86 K/mm3 (0.9-3.2); Lymphocytes Percent Auto 27.4 % (18.3-44.2); Mean Corpuscular HGB Conc 31.2 g/dl (32-36); Mean Corpuscular Hemoglobin 25.2 pg (26-34); Mean Corpuscular Volume 80.8 fl (80-100); Mean Platelet Volume 9.9 fl (7.4-10.4); Monocytes Absolute Auto 0.8 K/mm3 (0.1-0.6); Monocytes Percent Auto 7.6 % (2.6-8.5); Neutrophils Absolute Auto 6.5 K/mm3 (1.3-6.7); Neutrophils Percent Auto 62.1 % (45.5-73.1); Platelet Count Result 274 k/mm3 (150-375); Red Blood Count 4.12 M/mm3 (4.2-5.4); Red Cell Distribution Width 15.4 % (11.5-14.5); White Blood Count 10.4 K/mm3 (4.5-10.0)
[2024-07-15 22:39] LABS: Alanine Aminotransferase 12 U/L (6-35); Alkaline Phosphatase 57 U/L (38-126); Anion Gap 11 mmol/L (4-12); Aspartate Amino Transferase 18 U/L (14-36); Bilirubin,Total 0.2 mg/dL (0.2-1.3); Blood Urea Nitrogen 20 mg/dL (7-17); Calcium 9.1 mg/dL (8.4-10.2); Carbon Dioxide 20 mmol/L (22-30); Chloride 107 mmol/L (98-107); Estimated CRCL calculation 55 ml/min; Estimated Glomerular Filt Rate 56; Glucose 82 mg/dL (65-110); Potassium 3.8 mmol/L (3.4-5.0); Sodium 138 mmol/L (137-145)
[2024-07-15 22:47] VITALS: BP 131/89; PULSE 91; RESP 16; O2SAT 98
[2024-07-15 22:49] LABS: Partial Thromboplastin Time 22.3 Seconds (22.3-36.8); Prothrombin Time 13.8 Seconds (11.1-14.7)
[2024-07-15] MEDS: HYDROmorphone HCL INJ (*CRX) 1 MG/ML SYR 0.5 MG IV PUSH (22:50)
[2024-07-15 22:51] LABS: NT Pro B Type Natriuretic Pept 47 pg/mL (19.9-100); Troponin I < 0.012 ng/mL (0.000-0.034)
[2024-07-15] MEDS: ONDANSETRON INJ 4 MG/2 ML VIAL IV PUSH (23:01)
--- NOTE | 2024-07-15 23:03 | ECG_ITS ---
Test Date: 2024-07-15 23:29:55 Measurements Intervals [place] Rate: 87 P: 71 SD: 134 QRS: 73 QRSD: 86 T: 61 QT: 355 QTc: 429 Interpretive Statements SINUS RHYTHM Compared to ECG 01/06/2024 13:36:08 Sinus tachycardia no longer present Electronically Signed On 07-16-2024 11:44:07 CDT by Luis Enrique Rivera M.D.
[2024-07-15] MEDS: HYDROmorphone HCL INJ (*CRX) 1 MG/ML SYR IV PUSH (23:25)
[2024-07-15 23:50] VITALS: BP 141/86; PULSE 103; RESP 14; O2SAT 100
[2024-07-15 23:53] LABS: BEDSIDEPREGUCG Negative (Negative)
[2024-07-16] MEDS: fentaNYL CITRATE INJ (*CRX) 100 MCG/2 ML VIAL 50 MCG IV PUSH ×2 (01:05→03:13)
[2024-07-16 01:45] VITALS: BP 99/72; PULSE 87; RESP 14; O2SAT 100
[2024-07-16] MEDS: HEPARIN SOD/D5W 100 UNITS/ML 25,000 UNITS/250 ML BAG 11 UNITS IV CONT (03:27)
[2024-07-16] MEDS: HEPARIN SODIUM 5,000 UNITS/ML VIAL 5000 UNITS IV PUSH (03:27)
[2024-07-16] MEDS: HALOPERIDOL LACTATE 5 MG/ML VIAL IV PUSH (04:25)
[2024-07-16 04:40] VITALS: BP 108/73; PULSE 83; RESP 15; O2SAT 100
[2024-07-16] MEDS: RIVAROXABAN 15 MG TABLET PO (04:53)
--- NOTE | 2024-07-16 05:33 | PC.NURSE ---
Upon discharge pt stated her pain in her legs was too severe to walk. This RN offered pt a wheelchair and pt stated well im going to have to walk at home so no . This RN assisted pt with getting dressed and pt stood and acted as if each step was very painful. This RN then again offered a wheelchair and pt declined. This RN walked with pt through ER and called security to wheel pt to vehicle.
== END 2024-07-16 05:43 | disposition home or self-care (01) ==
PROVIDERS: Emergency Provider Student in an Organized Health Care Education/Training Program; PCP Physician Assistant
DX: I82.412 Acute embolism and thrombosis of left femoral vein (principal); D64.9 Anemia, unspecified; D72.829 Elevated white blood cell count, unspecified; Z87.891 Personal history of nicotine dependence; Z79.899 Other long term (current) drug therapy
CPT/HCPCS: 36415; 71275; 80053; 81025; 83880; 84484; 85025; 85610; 85730; 93005; 93971; 96365; 96374; 96375; 96376; 99284; A9270; J1171; J1630; J1644; J2405; J3010; Q9967

== ENCOUNTER 2024-07-24 08:24 | Outpatient (CLI) | payer OTHER, SELFPAY ==
--- NOTE | ~2024-07-24 | US_ITS ---
EXAMINATION:US venous doppler LE LT INDICATION:Left leg pain. Positive DVT on 07/15/2024. TECHNIQUE: Multiple grayscale, color flow and Doppler images of the left lower extremity deep venous systems were obtained and reviewed. COMPARISON:Ultrasound dated 07/15/2024 FINDINGS: There is persistent deep venous thrombosis of the left common femoral, profunda femoral and femoral veins as well as the greater saphenous vein. There is normal flow, compressibility and augme ntation in the popliteal, posterior tibial, peroneal and gastrocnemius veins. IMPRESSION: 1: Persistent deep venous thrombosis. Reviewed, dictated and finalized at location A.
--- NOTE | ~2024-07-24 | CT_ITS ---
CT of the Abdomen and Pelvis: Indication: May Thurner syndrome Technique: 2.5 mm axial scans were obtained through the abdomen and pelvis following intravenous adm inistration of 100 cc of Omnipaque 350. Dose reduction technique was used on this scan by utilizing a utomated exposure control and iterative reconstruction technique. The dose-length product (DLP) was 3 22.29 mGy-cm. Findings: Scans through the lung bases are unremarkable. The liver, spleen, pancreas, gallbladder, adrenals and kidneys are within normal limits. No evidence of aortic aneurysm. No lymphadenopathy. Left common iliac vein stent present. There is lack of contrast opacification within the left common iliac vein, compatible with thrombosis, which propagates retrograde through the left external iliac v ein and left common femoral vein, and the proximal visualized left SFV. No bowel obstruction or bowel wall thickening. There is no evidence to suggest acute appendicitis. Images through the pelvis were performed. Urinary bladder unremarkable. Trace pelvic ascites present. No adnexal mass evident. Impression: Extensive left-sided DVT, involving the left common iliac vein, propagating retrograde through the le ft external iliac and left common femoral veins, and the proximal visualized left SFV. Left common il iac vein stent present. Reviewed, dictated and finalized at location . Impression: Extensive left-sided DVT, involving the left common iliac vein, propagating ret rograde through the left external iliac and left common femoral veins, and the proximal visualized left SFV. Left common iliac vein stent present.
--- OUTSIDE RECORDS SUMMARY | 2024-07-24 08:30 | XMS_ITS | Encounter Summary ---
Author Organization [facility] Address [address] [place] [address] Phone Care Team Providers Care Insurance Agency Sales Manager Name Role Phone Soila Santos MD Unavailable Echo Pollard MD Primary Care Provider [phone] Reason for Visit * Auth/Cert (Routine) Specialty Diagnoses / Procedures Referred By Faiza bowden Referred To Contact Diagnoses DEVIATED NASAL SEPTUM, CHRONIC MAXILLARY SINUSITIS, CHRONIC ETHMOIDAL SINUSITIS Procedures SEPTOPLASTY WITH BALLOON ASSIST ENDOSCOPIC MAXILLARY ANTROSTOMY ENDOSCOPY ETHMOIDECTOMY ANTROSTOMY Adair Daily MD [address] [place] [address] Phone: tel: fax: Referral ID Status Reason Start Date Expiration Date Visits Re quested Visits Authorized [id number] 1 1 Encounter Details Date Type Department Care Team (Late st Contact Info) Description 07/21/2024 Hospital Encounter [facility] Periop [address] [place] [phone] Adair Daily MD [address] [place] [address] Social History Tobacco Use Types Packs/Day Years Used Date Smoking Tobacco: Former Cigarettes Smokeless Tobacco: Never Tobacco Cessation:Counseling Given: Not Answered Comments:Quit 2023 Alcohol Use Standard Drinks/Week Comments Not Currently [...] - Inhaled Oxygen Concentration - - Weight 67.1 kg (148 lb) 07/17/2024 1:00 PM CDT Height 166.4 cm (5' 5.5 ) 07/17/2024 1:00 PM CDT Body Mass Index 24.25 07/17/2024 1:00 PM CDT documented in this encounter Miscellaneous Notes * Interdisciplinary - Elaina Sierra RN - 07/17/2024 1:58 PM CDT PLEASE READ THIS IMPORTANT INFORMATION Currently, your procedure is scheduled for 07/21/24Saturday. You will need to arrive at 7:00 am. (Should there be a change in your arrival time, you will be notified the weekday prior to your surgery date). You will be receiving: [] LOCAL [] MONITORED SEDATION [] SPINAL [x] GENERAL anesthetic. IN ADVANCE OF YOUR SURGERY DAY COMPLETE Pre-Procedure testing: [x] Lab [x] URINE TEST To be completed on admission Bring your photo ID and insurance card. 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 If you are using public transportation, you must have an adult, you know, ( 18 yrs or older) to accompany you. STOP MEDICATIONS PER YOUR SURGEONS ORDERS All NSAID's / 14 days prior to surgery All Blood Thinners / 5 days prior to surgery HOLD Herbal supplements, Multivitamins, Vitamin E, and Fish Oil Omegas for 3 days prior to the procedure. DO NOT: Smoke, vape, chew or drink alcohol for 24 hours prior to the procedure Shave the operative site Bring any valuables or money with you Wear makeup or jewelry. Remove all body piercings FAILURE TO FOLLOW THE ABOVE INSTRUCTIONS IN ADVANCE MAY RESULT IN CANCELLATION OF YOUR PROCEDURE ONTHE DAY OF. ON THE DAY OF SURGERY NOTHING TO EAT OR DRINK FOR 8 HRS PRIOR TO ARRIVAL TIME ON YOUR PROCEDURE DATE! NO GUM, MINTS, WATER, ETC. FAILURE TO FOLLOW THESE INSTRUCTIONS MAY CAUSE YOUR PROCEDURE TO BE CANCELLED FOR YOUR SAFETY. Please take the following medications with a sip of water before coming to the hospital on the day of your surgery: You may take Tylenol the day of Surgery 1. Topiramate (Topamax) 2. Bupropion (Wellbutrin XL) 3. Clonidine (Catapres) 4. Propranolol (Inderal) 5. Levothyroxine (Synthroid) 6. Hydrocodone-acetaminophen (Perry) if needed and can tolerate on an empty stomach Please bring your rescue inhaler, if you have one. You may use your inhaler or nasal spray. DO: Bathe or shower the night before or the day of your procedure Your Doctor's office may give you special cleansers with instructions Wear comfortable clothes that are easy to change in and out of. Wear safe non-slip shoes Bring a list of current medications, including and any [id number] medications and supplements(such as herbs and essential oils) with dosages and how often you take them. Bring CPAP machine if you have sleep apnea and will be staying overnight. Note children under 16 must be accompanied by a parent or legal guardian in the hospital at all times. Report to Registration Upon Arrival Please enter through the EMERGENCY ENTRANCE DOORS if arriving prior to 8 AM or you are in need of awheelchair. If arriving after 8 AM, enter through the FRONT ENTRANCE DOORS and follow the scott to your right until you reach the registration. Bring your Photo ID and Insurance card. After you are checked in, Registration will direct you to the elevator which will take you to Day Surgery located ont 4th floor. Please call Pre-Surgical Testing, if you have any questions or concerns regarding Pre- Surgical instructions- Saturday thru Saturday, 08:30- 4 pm . IF YOU EXPERIENCE SIGNS OR SYMPTOMS OF ILLNESS PRIOR TO YOUR SCHEDULED PROCEDURE OR IF YOU CAN'T KEEP YOUR APPOINTMENT, PLEASE CALL YOUR PROCEDURAL DOCTOR'S OFFICE. DO NOT CALL PRE- SURGICAL TESTING. Thank you for selecting [facility] for your procedure.We know you have a choice for your healthcare and we are pleased to provide you with this service. Our [place] at [facility] is to: Serve with the Greatest Care and Love . We are not employees of [facility], we are [employer] driven to provide care based on our [place], Vision and Values. Please do not hesitate to let us know if you have any questions or concerns. May God Bless you and we look forward to serving you. Your Perioperative Team. * Interdisciplinary - Elaina Sierra RN - 07/17/2024 1:58 PM CDT [facility] ADULT TEACHING Patient Name: Sahra Parks : 1980 CSN#: [id number] Person Educated Patient Ready to Learn Yes Teaching Method Phone The Day of Surgery: Call your physician if your physical condition changes (cold, fever, flu). Do not come to the hospital without first calling your physician. Do not eat or drink (no gum, mints, water etc.) unless instructed to do so for at least 8 hours prior to arrival to the hospital. Medications can be taken with a small sip of water. Do not drink any alcohol 24 hours prior to surgery if applicable. Do not smoke for 24 hrs prior to surgery if applicable. Bring CPAP/BIPAP if applicable. Take a shower or bath. Do not apply make-up Wear comfortable, loose fitting clothing Instruction to leave all jewelry at home including wedding/engagement rings or any body piercing jewelry. Leave all valuables at home. Children ages 17 and under must be accompanied by a parent or legal guardian in the hospital at alltimes. Follow your surgeon's instructions for arrival time. If you have questions concerning arrival time,call your surgeon's office. Detailed instructions given for arrival location and parking. Arrange for a responsible person to accompany you, drive you home and stay with you for the first 24 hours following your surgery. If you have not made these arrangements you may be at risk of your surgery being cancelled. Follow directions regarding medications to Take or Hold. It is very important to follow directions from your surgeon's office on Diabetic medication or Blood Thinners. Only 2 adults over the age of 16 will be allowed to accompany you to the [facility]. No children under theage of 16 will be allowed in the [facility] unless they are the patient. If the patient chooses to bring their children under the age of 16, an adult must accompany those children in the surgery waiting room and cannot leave them unattended. During the flu season: refer to the visitation restriction guidelines implemented during that season if applicable. Fall Prevention Teaching The Day of Surgery: Your safety while you are in the hospital is very important to us. Following surgery, you might be at increased risk for falling for several reasons: -The hospital environment is unfamiliar. It???s not the same as being at home -You may be weaker than you realize. -You may be connected to lines or equipment that can cause you to trip. -You may be on medications that make you drowsy or dizzy. We know this can happen especially with pain medication and anesthesia. We want to partner with you in the hospital to make sure you are safe -Please do not feel hesitant to ask for help while in the hospital. You will - need extra help untilyou get stronger especially with walking and using the bathroom. -Pay close attention to what the doctors and nurses tell you about your risk of falling. -A fall can mean a longer hospital stay. Also, injuries from a fall can affect your health for the rest of your life. Some things the nurses may do to keep you safe are: -Have you use the call light for help whenever you get out of bed. -Wear non-skid slippers to keep you from slipping on the floors -Use a special belt that wraps around your waist so we can help steady you when you walk -Activate an alarm on your bed so we know if you are getting up in case you forget to use your calllight -Stay in the bathroom with you in case you become dizzy or light headed Patient Response: Verbalizes Understanding Patient assessed for director speech language during the preop interview and appropriate interventions taken if applicable. * Interdisciplinary - Elaina Sierra RN - 07/17/2024 1:57 PM CDT Patient denies testing + for Covid 19 in past 90 days. Patient instructed to notify surgeons office if they become ill and the office will advise them on how to proceed. documented in this encounter Plan of Treatment Not on file documented as of this encounter Visit Diagnoses Not on filedocumented in this encounter Care Teams Insurance Agency Sales Manager Relationship Specialty Start Date End Date Echo Pollard MD [facility] [place] [address] PCP - General Primary Care 01/01/23 Soila Santos MD #[address] [phone] Consulting Physician Endocrinology 12/17/22 documented as of this encounter
--- OUTSIDE RECORDS SUMMARY | 2024-07-24 08:30 | XMS_ITS | Encounter Summary ---
Author Organization [facility] Healthcare Address [address] [place] [address] Care Team Providers Care Cnc Machinist Name Role Phone Pierre Cisneros Primary Care Provider + Encounter Details Date Type Department Care Team (Late st Contact Info) Description 11/11/2023 Telephone [facility] Radiology 1 [place] [address] Yuniel Price RN Social History Tobacco Use [...] on file Legal Sex Female 7:09 AM RN ED Gender Identity Female 10/24/2023 9:52 AM CDT Sexual Orientation Straight 10/24/2023 9: 52 AM CDT documented as of this encounter Plan of Treatment Not on file documented as of this encounter Visit Diagnoses Not on filedocumented in this encounter Care Teams Cnc Machinist Relationship Specialty Start [place] [address] [place] [address] PCP - General Internal Medicine 09/04/23 documented as of this encounter
--- OUTSIDE RECORDS SUMMARY | 2024-07-24 08:31 | XMS_ITS | Clinical Summary ---
Author Organization [facility] Address [address] [place] [address] Care Team Providers Care Folding Machine Tender Name Role Phone Pierre Cisneros Primary Care Provider + Allergies Active Allergy Reactions Criticality Noted Date Comments Ciprofloxacin Nausea only,Vomiting Reaction: Nausea, Vomiting, Latex Rash Medium 01/12/2011 rash Morphine Swelling,Anaphylaxis ,Unknown High 07/06/2010 Throat swelling Sulfa (Sulfonamide Antibiotics) Nausea And Vomiting,Rash,Nausea only,Vomiting Medium 07/06/2010 Medications levothyroxine (SYNTHROID) 175 mcg tablet Take 1 tablet (175 mcg total) 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 Alejandro, D&C done at [facility]; the other due to low hormone [...] Overview (11/01/2020): With mesh Dr. Flynn at [facility] Tobacco use disorder complic ating , [...] Encounters Date Type Department Care Team Description 07/23/2024 Telephone [facility] Radiology 1 [place] [address] Becky Mtz, RN 07/22/2024 Telephone [facility] Radiology 1 [place] [address] Becky Mtz, RN 07/22/2024 Orders Only [facility] Hematology [address] Floor 6 [place] [phone] Hailey Choi RN Iron deficiency anemia, unspecified iron deficiency anemia type (Primary Dx) 07/21/2024 Telephone [facility] Radiology [address] [place] [address] Becky Mtz RN 07/20/2024 Orders Only [facility] Radiology, Interventional Radiology [address] [place] [phone] Becky Olivo RN May-Thurner syndrome (Primary Dx); Deep venous thrombosis (HCC); History of thrombosis; Venous insufficiency of both lower extremities 07/20/2024 Telephone [facility] Radiology 1 [place] [address] Becky Mtz RN 07/18/2024 2:23 AM CDT - 07/18/2024 11:59 PM CDT [facility] ([facility]) [address] [place] [address] Discharge Disposition: Discharge to home or self care 07/17/2024 Telephone [facility] Radiology [address] [place] [address] Becky Mtz, RN 07/16/2024 Telephone [facility] Radiology [address] [place] [address] Becky Mtz, RN 07/15/2024 Telephone Radiology 1 [place] [address] Naveed Churchill MD 07/15/2024 Telephone [facility] Radiology [address] [place] [address] Becky Mtz, RN 07/14/2024 10:15 AM CDT Office Visit [facility] Hematology [address] 6 [place] [address] Anna Rizzo MD Anemia, unspecified type (Primary Dx); Iron deficiency anemia, unspecified iron deficiency anemia type 07/14/2024 9:30 AM CDT Lab [facility] - Lab Collection [address] [facility] Floor 6 [place] [address] Iron deficiency anemia, unspecified iron deficiency anemia type 07/14/2024 Telephone [facility] Radiology [address] [place] [address] Becky Mtz, RN 07/13/2024 Telephone [facility] Radiology [address] [place] [address] Becky Mtz, RN 07/13/2024 Orders Only [facility] Radiology [address] [place] [address] Becky Mtz, RN May-Thurner syndrome (Primary Dx) 07/08/2024 1:00 PM CDT Office Visit [facility] Radiology, Interventional Radiology [address] [place] [address] Varsha Lizarraga PA May-Thurner syndrome (Primary Dx); Deep venous thrombosis (HCC); Positive antinuclear antibody 07/08/2024 11:00 AM CDT Ancillary Procedure [facility] [address] [place] [address] for Advanced Medicine 8th [place] [address] [place] [address] May-Thurner syndrome 06/26/2024 Telephone [facility] Radiology [address] [place] [address] Becky Mtz, RN 06/25/2024 Telephone [facility] Radiology [address] [place] [address] Becky Mtz, RN 06/22/2024 Telephone [facility] Radiology [address] [place] [address] Becky Mtz, RN 06/19/2024 Telephone [facility] Radiology, Interventional Radiology [address] [place] [address] Becky Olivo, RN Appointment 06/11/2024 Telephone [facility] Radiology 1 [place] [address] Becky Mtz, YANET 06/10/2024 Telephone [facility] Radiology 1 [place] [address] Becky Mtz, YANET 05/25/2024 Telephone [facility] [address] [facility] 3rd Floor [address] [place] [address] Caryl Nash LPN 05/20/2024 Telephone [facility] Rheumatology [address] [place] [address] [address] [place] [address] Ac Mendiola RMA from Last 3 Months Immunizations Immunization Administration Dates Next Due HPV, Unspecified 02/28/2009,05/07/2007, 7,10/02/2006 Influenza, Unspecified 01/16/2011 PPD TEST 07/25/2022 Tdap 04/22/2009 Surgical History Surgery Date Site/Laterality Comments HERNIA REPAIR 04/22/2008 - 04/21/2009 SINUS SURGERY 01/20/2023 - 02/19/2023 ANGIOPLASTY / STENTING FEMORAL 09/20/2022 - 10/19/2022 Le juan manuel LLE Medical History Medical History Date Comments [...] on file Legal Sex 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 Gender Identity Female 10/24/2023 9:52 AM [...] 5 season) 2023 05/06/2021, 12/13/2020 Influenza Vaccine (Season Ended) 2024 01/17/20 11 HPV Vaccines Completed 02/28/2009, 04/22, 01/21/2007, Additional history exists Medical Devices Implanted Type Area Flour Mixer Device Identifier Shelf Expiration Date Model / Serial / Lot [employer] Abre 16mm 100mm Self Expand Rotate Thumbwheel Hemostatic Valve [id number] - [id number] Implanted:Qty: 1 on 10/15/2022 at [facility] [employer] 10/30/2024 [id number] / / [id number] [employer] Abre 12mm 120mm Self Expand Rotate Thumbwheel Hemostatic Valve [id number] - [id number] Implanted:Qty: 1 on 11/14/2023 at [facility] [employer] 01/16/2025 [id number] / / [id number] Procedures Procedure Name Priority Date/Time Associated Diagnosis Comments US TRANSFER OF OUTSIDE FILMS Routine 07/18/2024 2:23 AM CDT DIFFERENTIAL AUTO Routine 07/14/2024 9:3 1 AM [...] Recently Relevant to Health Maintenance Results * US Outside Reference (07/18/2024 2:23 AM CDT) Impressions RAD_PACS_[facility] - 07/18/2024 2:23 AM CDT These images are for Reference purposes only and have not been reviewed by [facility] Radiology. There will be no report generated by a [facility] Radiologist. Narrative RAD_PACS_[facility] - 07/18/2024 2:23 AM CDT EXAMINATION: Images For Reference Purposes Only us Umberto Magana MD IMG US PROCEDURES Final Result [facility] * Differential, auto (07/14/2024 9:31 AM CDT) Neutrophil abs 2.5 1.5 - 6.5 K/cumm Comment:Testing performed by : [facility] Heme Lab, [address] [place], [place] [phone] Lymphocyte abs 2.1 0.8 - 3.3 K/cumm CERNER BJ Comment:Testing performed by : [facility], [address] [place] [phone] Monocyte abs 0.6 0.2 - 0.8 K/cumm CERNER BJ Comment:Testing performed by : [facility], [address] [place] [phone] Eosinophil abs 0.2 0.0 - 0.5 K/cumm CERNER BJ Comment:Testing performed by : [facility], [address] [place] [phone] Basophil abs 0.0 0.0 - 0.1 K/cumm CERNER BJ Comment:Testing performed by : [facility], [address] [place] [phone] Neutrophil pct 45.7 % CERNER [facility] Comment: Interpretive Data Percent cell count reference ranges are not reported, since discordance with absolute values may lead to misinterpretation of CBC data. Current Interpretive Data was last revised on 2017. Testing performed by: [facility], [address] [place] [phone] Lymphocyte pct 39.3 % TEZ AVALOS Comment: Interpretive Data Percent cell count reference ranges are not reported, since discordance with absolute values may lead to misinterpretation of CBC data. Current Interpretive Data was last revised on 2017. Testing performed by: [facility], [address] [place] [phone] Monocyte pct 10.8 % CERNORMA AVALOS Comment: Interpretive Data Percent cell count reference ranges are not reported, since discordance with absolute values may lead to misinterpretation of CBC data. Current Interpretive Data was last revised on 2017. Testing performed by: [facility], [address] [place] [phone] Eosinophil pct 3.4 % TEZ AVALOS Comment: Interpretive Data Percent cell count reference ranges are not reported, since discordance with absolute values may lead to misinterpretation of CBC data. Current Interpretive Data was last revised on 2017. Testing performed by: [facility], [address] [place] [phone] Basophil pct 0.8 % TEZ AVALOS Comment: Interpretive Data Percent cell count reference ranges are not reported, since discordance with absolute values may lead to misinterpretation of CBC data. Current Interpretive Data was last revised on 2017. Testing performed by: [facility], [address] [place] [phone] Blood 07/14/2024 9:31 AM CDT 07/14/2024 9:39 AM CDT us Anna Rizzo MD LAB BLOOD ORDERABLES Final Result [facility] Department [place] [address] * (ABNORMAL) CBC with auto differential (07/14/2024 9:31 AM CDT) WBC 5.4 3.8 - 9.9 K/cumm Comment:Testing performed by : [facility], [address] [place] [address] Hgb 10.3(L) 11.9 - 15.5 g/dL CERNER BJ Comment:Testing performed by : [facility], [address] [place] [address] Hct 32.2(L) 35.6 - 45.5 % CERNER BJ Comment:Testing performed by : [facility], [address] [place] [address] Plt 304 150 - 400 K/cumm CERNER BJ Comment:Testing performed by : [facility], [address] [place] [address] MPV 8.0 6.8 - 10.4 fL CERNER BJ Comment:Testing performed by : [facility], [address] [place] [address] RBC 4.10 3.90 - 5.20 M/cumm CERNER BJ Comment:Testing performed by : [facility], [address] [place] [address] MCV 78.6(L) 81.3 - 96.4 fL CERNER BJ Comment:Testing performed by : [facility], [address] [place] [address] MCH 25.1(L) 27.1 - 33.3 pg CERNER BJ Comment:Testing performed by : [facility], [address] [place] [address] MCHC 31.9(L) 32.3 - 35.7 g/dL CERNER BJ Comment:Testing performed by : [facility], [address] [place] [address] RDW CV 16.8(H) 11.1 - 14.9 % CERNER BJ Comment:Testing performed by : [facility], [address] [place], [place] [phone] NRBC abs 0.00 0.00 - 0.01 K/cumm [facility] Comment:Testing performed by : [facility], [address] [place], [place] [phone] Blood 07/14/2024 9:31 AM CDT 07/14/2024 9:39 AM CDT Anna Rizzo MD LAB BLOOD ORDERABLES Final Result Performing Organization Address [facility] de Phone Number [facility] Department [place] [address] * Reticulocyte Count (07/14/2024 9:31 AM CDT) Retics, absolute 0.059 0.020 - 0.100 M/cumm Comment:Testing performed by : [facility], [address] [place], [place] [phone] Retics 1.4 0.5 - 1.8 % [facility] Comment:Testing performed by : [facility], [address] [place], [place] [phone] Blood 07/14/2024 9:31 AM CDT 07/14/2024 9:39 AM CDT Anna Rizzo MD LAB BLOOD ORDERABLES Final Result Performing Organization Address [facility] de Phone Number [facility] [place] [address] * (ABNORMAL) Iron profile w/ IBC (07/14/2024 9:31 AM CDT) Iron 23(L) 35 - 145 mcg/dL TIBC 357 250 - 400 mcg/dL [facility] Transferrin saturation 6(L) 20 - 50 % [facility] Blood 07/14/2024 9:3 1 AM CDT 07/14/2024 9:42 AM CDT Anna Rizzo MD LAB BLOOD ORDERABLES Final Result Performing Organization Address City/[facility] Co de Phone Number TEZ [facility] [place] [address] * (ABNORMAL) Ferritin (07/14/2024 9:31 AM CDT) Ferritin 12(L) 13 - 150 ng/mL Blood 07/14/2024 9:31 AM CDT 07/14/2024 9:42 AM CDT Anna Rizzo MD LAB BLOOD ORDERABLES Final Result Performing Organization Address [facility] Phone Number TEZ [facility] [place] [address] * US VEIN DUPLEX LOWER EXTREMITY LEFT LIMITED, UNILATERAL (07/08/2024 11:19 AM CDT) Anatomical Region Laterality Modality Vascular Left Ultrasound 07/08/2024 10:5 8 AM CDT Narrative 07/10/2024 7:45 AM CDT [facility] - Department of Vascular Surgery, Vascular Laboratory [address] [place] [address] Lower Extremity Venous Ultrasound Report Patient Name: LUCIE PARKS : 1980 (43y 10m) Study Date: 07/08/2024 10:58:37 AM Gender: F [facility] Location[facility] Ref Provider: UMBERTO MAGANA Quality: Adequate Order [...] INDICATIONS: I87.1 Compression of vein. FINDINGS: Performing Behavior Support Specialist: Erica Conrad RVT. Left: Venous Doppler signals [...] above. Electronically Signed By: Rolf Nair MD [facility] [phone] 07/10/2024 7:16:00 AM CDT Procedure Note Rolf Nair MD - 07/10/2024 [facility] - Department of Vascular Surgery,Vascular Laboratory [address] [place] [address] Lower Extremity Venous Ultrasound Report Patient Name: LUCIE PARKS : 1980 (43y 10m) Study Date: 07/08/2024 10:58:37 AM Gender: F Tech: Vickey CONRAD Location: [facility] [place] Ref Provider: UMBERTO MAGANA Quality: Adequate Order Provider: UMBERTO MAGANA PROCEDURES: Vascular Report: Venous Duplex imaging was performed in the left lower extremity. Thecommon femoral, femoral, popliteal, posterior tibial, peroneal veins were evaluated forpatency, spontaneity and phasicity with Doppler, compression and augmentationmaneuvers. Great saphenous vein proximal at the junction was evaluated with compressionmaneuvers. INDICATIONS: I87.1 Compression of vein. FINDINGS: Performing Behavior Support Specialist: Erica Conrad RVT. Left: Venous Doppler signals [...] above. Electronically Signed By: Rolf Nair MD [facility] [phone] 07/10/2024 7:16:00 AM CDT Umberto Magana MD [facility] PROCEDURES Final Result * Pap and High Risk HPV, reflex to Genotyping (10/17/2022 4:58 PM CDT) Thin prep (Pap test) 10/17/2022 4:58 PM CDT 10/17/2022 6:01 PM CDT Narrative PATHOLOGY [facility] - 10/25/2022 2:38 PM CDT EPIC results best viewed via link to PDF [facility] Alisa Moreira [facility] [place] [address] Note to Patients: This report may contain [...] Gender: F : 1980 (Age: 42) Address: [address] [address] Hospital #: [id number] Service: Medical Location: [place] [address] Patient Type: [facility] Inpatient Taken: 10/17/2022 Received: 10/17/2022 Accessioned: 10/18/2022 [...] 68. This HPV test was performed at [facility] in [place], [place] utilizing the Gen-Probe Aptima assay. This specimen has been rescreened in accordance with this laboratory's Windows Vmware Engineer Program. ml/10/25/2022 14:38 SANDI Gill(ASCP) Report Electronically Reviewed and [...] and histologic results be correlated for laboratory vice president quality improvement & improvement standards. FOR ALL HIGH-GRADE CASES [...] AUB. The HPV test was performed by [facility], [address] [place] [address]. Report Images and scanned documents, if included only viewable in PDF version The performance characteristics of some immunohistochemical stains, in-situ hybridization and fluorescence in-situ hybridization tests and immunophenotyping by flow cytometry cited in this report (if any) were determined by the Surgical Pathology Department at [facility] as part of an ongoing quality system manager program and in compliance with federally [...] determined by the Surgical Pathology Department of [facility]. It has not been cleared or approved by the U. S. Food and Drug Administration. [facility] Lanny De Santiago MD LAB CYTOLOGY O RDERABLES Final Result PATHOLOGY [facility] 3rd Floor [place], [place] [phone] from Last 3 Months or Most Recently Relevant to Health Maintenance Insurance [facility] Advance Directives For more information, please contact: [phone] * Full Code (Latest Code Status on File) Date Activated Date Inactivated Comments 11/14/2023 5:19 PM 11/15/2023 7:00 PM * Full Code Date Activated Date Inactivated Comments 11/14/2023 9:40 AM 11/14/2023 5:19 PM * Full Code Date Activated Date Inactivated Comments 10/15/2022 2:44 PM 10/18/2022 7:48 PM Care Teams Folding Machine Tender Relationship Specialty Start Date End Date Pierre Cisneros PA [address] [place] [id number] PCP - General Internal Medicine 09/04/23
--- OUTSIDE RECORDS SUMMARY | 2024-07-24 08:31 | XMS_ITS | Data Portability ---
Author Organization [facility] [place] Address [address] [place] [address] Care Team Providers Care Pillowcase Maker Name Role Phone SARAH CHARLES Primary Care [...] re plan/FU after records received and reviewed. [email or web address] Not available 10/30/2022 22:06:01 Plan of Treatment Reminders Order Date Submit Date Provider Last Modified By Organization Details Last Modified Time Details Appointments None recorded. Lab hbcab (hepatitis B core Ab) igm, serum 2024 025 [facility] (Lab), [address], [place], [address], 5 11:04:23 HBsAg (hepatitis B surface Ag), serum 2024 025 [facility] (Lab), [address], [place], [address], 5 11:04:21 hepatitis C virus Ab, serum 2024 025 [facility] (Lab), [address], [place], [address], 5 11:04:21 HIV 1+2 AB + HIV 1 p24 Ag, qualitative immunoassay , serum 2024 025 [facility] (Lab), [address], [place], [address], 5 11:04:20 RPR (rapid plasma reagin), serum 2024 025 [facility] (Lab), [address], [place], [address], 5 11:04:22 culture, urine 2024 025 [facility] (Lab), [address], [place], [address], 5 11:04:24 CT + NG + TV, RNA, unspecified specimen 2024 025 [facility] (Lab), [address], [place], [address], 5 11:04:22 hbcab (hepatitis B core Ab) igm, serum 2023 024 [facility] (Lab), [address], [place], [address], 4 21:15:54 HBsAg (hepatitis B surface Ag), serum 2023 024 [facility] (Lab), [address] [facility], [place], [address], 4 21:15:52 hepatitis C virus Ab, serum 2023 024 [facility] (Lab), [address] [facility], [place], [address], 4 21:15:53 unlisted lab - HIV 1/2 antigen/ant ibody, reflex confirmatio n 2023 024 [facility] (Lab), [address] [facility], [place], [address], 4 21:15:53 RPR (rapid plasma reagin), serum 2023 024 [facility] (Lab), [address] [facility], [place], [address], 4 21:15:54 urinalysis, dipstick 2023 024 [facility] [place], [address], [place], [address], 4 11:41:46 test, urine 2023 024 june [place], [address], [place], [address], 4 11:27:35 Referral None recorded. Procedures None recorded. Surgeries None recorded. Imaging US, transvagina l 2023 024 [address], [address], [place], [address], 4 09:06:07 US, pelvis 2023 024 [facility], [place], [address], 4 17:10:44 US, pelvis, complete 2023 024 [facility] [place], [address], [place], [address], 4 05:00:53 MAMMO, screening, digital, bilateral 2023 024 [facility], [address], [place], [address], 4 05:00:53 Medication Orders Macrobid 100 mg capsule 2024 025 [id number], [address] [facility], [place], [place], [id number], 5 16:10:33 metronidazo le 0.75 % (37.5 mg/5 gram) vaginal gel [address] [id number], [address] [facility], [place], [place], [id number], 5 15:53:19 Patient TargetsNo targets recorded. Patient [...] t Abnor mal: No Resul ting Lab: [facility] [address] [facility] [address] Tel: CULTU RE ----- ----- ----- --- No growt h in 1 day (dete ction level of 10,00 0 colon ies / ml.) Not Available [facility] (Lab) [address] [facility], [place], [address], 09/01/2023 07:16:49 08/30/19 24 08/30/2023 CT/GC AND TRICH OMONA S VAGIN YARITZA (RRNA ), SWAB chlamydia trachomatis, PCR Negati ve negati ve Not Available [facility] (Lab) [address] [facility], [place], [address], 09/02/2023 11:42:49 08/30/19 24 08/30/2023 CT/GC AND TRICH OMONA S VAGIN YARITZA (RRNA ), SWAB neisseria gonorrhoeae, PCR Negati ve negati ve Not Available [facility] (Lab) [address] [facility], [place], [address], 09/02/2023 11:42:49 08/30/19 24 08/30/2023 CT/GC AND TRICH OMONA S VAGIN YARITZA (RRNA ), SWAB trichomonas vaginalis ribosomal RNA (rrna) Negati ve negati ve Not Available [facility] (Lab) [address] [facility], [place], [address], 09/02/2023 11:42:49 08/30/19 24 08/30/2023 VAGIN ITIS/ VAGIN OSIS, DNA PROBE niko sp. detection, direct probe Negati ve negati ve Not Available [facility] (Lab) [address] [facility], [place], [address], 09/02/2023 11:42:50 08/30/19 24 08/30/2023 VAGIN ITIS/ VAGIN OSIS, DNA PROBE gardnerella vag. detection, direct probe Negati ve negati ve Not Available [facility] (Lab) [address] [place], [address], 09/02/2023 11:42:50 08/30/19 24 08/30/2023 VAGIN ITIS/ VAGIN OSIS, DNA PROBE trichomonas vag. detection, direct probe Negati ve negati ve Not Available [facility] (Lab) [address], [place], [address], 09/02/2023 11:42:50 08/30/19 24 08/30/2023 HEPAT ITIS B SURFA CE ANTIG EN hepatitis B surface antigen Non-re active non-re active This assay was perfo rmed using [employer] reage nts and test kits. Value s obtai felix with other assay metho ds or kits canno t be used inter lovelace eably . Not Available [facility] (Lab) [address], [place], [address], 09/02/2023 21:15:52 08/30/19 24 08/30/2023 HIV 1/2 ANTIG EN/AN TIBOD Y, REFLE X CONFI RMATI ON HIV antigen/anti body Nonrea ctive nonrea ctive HIV-1 antig en and HIV-1 /HIV- 2 antib odies were not detec anamika. No labor atory evide nce of HIV infec tion. Not Available [facility] (Lab) [address], [place], [address], 09/02/2023 21:15:53 08/30/19 24 08/30/2023 HEPAT ITIS C ANTIB LAYTON SCREE N, REFLE X TO CONFI RMATI ON hepatitis C antibody Non-re active non-re active Antib odies to HCV Not Detec anamika, does not exclu de the possi bilit y of expos ure to HCV. Not Available [facility] (Lab) [address], [place], [address], 09/02/2023 21:15:53 08/30/19 24 08/30/2023 RPR SCREE N, REFLE X TITER /CONF IRMAT ION RPR screen Nonrea ctive nonrea ctive Not Available [facility] (Lab) [address], [place], [address], 09/02/2023 21:15:54 08/30/19 24 08/30/2023 HEPAT ITIS B CORE, IGM hepatitis B core IgM antibody Negati ve negati ve Not Available [facility] (Lab) [address], [place], [address], 09/02/2023 21:15:54 08/30/19 24 08/30/2023 pregn marija test, urine HCG negati ve Not Available [place] [address], [place], [address], 08/30/2023 11:21:14 09/03/19 24 09/03/2023 IMAGE GUIDE [...] enrique and/o r histo rical findi ngs, [facility] er inves tigat ion is recom sarita d, as clini fidel reno nted. Not Available [facility] (Lab) [address] [place], [address], 09/09/2023 11:34:36 06/24/1906/23/2024 HIV 1/2 ANTIG EN/AN TIBOD Y, REFLE X CONFI RMATI ON HIV antigen/anti body Nonrea ctive nonrea ctive HIV-1 antig en and HIV-1 /HIV- 2 antib odies were not detec anamika. No labor atory evide nce of HIV infec tion. Not Available [facility] (Lab) [address] [facility], [place], [address], 06/26/2024 11:04:20 06/24/1906/23/2024 HEPAT ITIS C ANTIB LAYTON SCREE N, REFLE X TO CONFI RMATI ON hepatitis C antibody Non-re active non-re active Antib odies to HCV Not Detec anamika, does not exclu de the possi bilit y of expos ure to HCV. Not Available [facility] (Lab) [address] [facility], [place], [address], 06/26/2024 11:04:21 06/24/19 25 06/23/2024 HEPAT ITIS B SURFA CE ANTIG EN hepatitis B surface antigen Non-re active non-re active This assay was perfo rmed using [employer] reage nts and test kits. Value s obtai felix with other assay metho ds or kits canno t be used inter lovelace eably . Not Available [facility] (Lab) [address] [facility], [place], [address], 06/26/2024 11:04:21 06/24/19 25 06/23/2024 CT/GC AND TRICH OMONA S VAGIN YARITZA (RRNA ), URINE chlamydia trachomatis, PCR Negati ve negati ve Not Available [facility] (Lab) [address] [place], [address], 06/26/2024 11:04:22 06/24/19 25 06/23/2024 CT/GC AND TRICH OMONA S VAGIN YARITZA (RRNA ), URINE neisseria gonorrhoeae, PCR Negati ve negati ve Not Available [facility] (Lab) [address] [facility], [place], [address], 06/26/2024 11:04:22 06/24/19 25 06/23/2024 CT/GC AND TRICH OMONA S VAGIN YARITZA (RRNA ), URINE trichomonas vaginalis ribosomal RNA (rrna) Negati ve negati ve Not Available [facility] (Lab) [address] [facility], [place], [address], 06/26/2024 11:04:22 06/24/19 25 06/23/2024 RPR SCREE N, REFLE X TITER /CONF IRMAT ION RPR qualitative Nonrea ctive nonrea ctive Not Available [facility] (Lab) [address] [facility], [place], [address], 06/26/2024 11:04:22 06/24/19 25 06/23/2024 CULTU RE: URINE result report SEE RESULT S BELOW abnormal Test: Cultu re: Urine Speci men Sourc e: Urine - Clean Catch Speci men Type: Urine Speci men Date: 1653 Resul t Date: 59 Resul t Statu s: Final resul t Abnor mal: Yes Whit wray Lab: [facility] [address] [facility] [address] Tel: CULTU RE ----- ----- ----- --- [...] <=0.5 ug/mL Susce ptibl e Not Available [facility] (Lab) [address], [place], [address], 06/26/2024 11:04:23 06/24/19 25 06/23/2024 urina lysis , dipst ick Leukocytes ++ Not Available [facility] [address], [place], [address], 06/23/2024 17:26:17 06/24/19 25 06/23/2024 urina lysis , dipst ick Nitrite - Not Available [place] [address], [place], [address], 06/23/2024 17:26:17 06/24/19 25 06/23/2024 urina lysis , dipst ick pH 5 Not Available [place] [address], [place], [address], 06/23/2024 17:26:17 06/24/19 25 06/23/2024 urina lysis , dipst ick Blood +++ Not Available [place] [address], [place], [address], 06/23/2024 17:26:17 06/24/19 25 06/23/2024 urina lysis , dipst ick Specific [place] 1.030 Not Available [facility] [address], [place], [address], 06/23/2024 17:26:17 06/24/19 25 06/23/2024 urina lysis , dipst ick Bilirubin - Not Available [facility] [address], [place], [address], 06/23/2024 17:26:17 06/24/19 25 06/23/2024 urina lysis , dipst ick Glucose - Not Available [place] [address], [place], [address], 06/23/2024 17:26:17 06/24/19 25 06/23/2024 urina lysis , dipst ick Appearance Cloudy Not Available [facility] [address], [place], [address], 06/23/2024 17:26:17 06/24/19 25 06/23/2024 urina lysis , dipst ick Color Brown/ dark yellow Not Available [place] [address], [place], [address], 06/23/2024 17:26:17 06/24/19 25 06/23/2024 urina lysis , dipst ick Urobilinogen - Not Available [facility] krys [address], [place], [address], 06/23/2024 17:26:17 06/24/19 25 06/23/2024 urina lysis , dipst ick Protein ++ Not Available [place] [address], [place], [address], 06/23/2024 17:26:17 06/24/19 25 06/23/2024 urina lysis , dipst ick Ketone - Not Available [place] [address], [place], [address], 06/23/2024 17:26:17 09/06/19 24 09/09/2023 US, trans vagin al No observ ation record ed. [email or web address] [place] [address], [place], [address], 09/09/2023 10:16:24 09/06/19 24 09/09/2023 US, pelvi s No observ ation record ed. [email or web address] [place] [address], [place], [address], 09/09/2023 10:16:15 09/06/19 24 09/06/2023 US, pelvi s No observ ation record ed. [email or web address] [facility] [address], [place], [address], 09/24/2023 13:40:13 Result Notes None recorded. Problems Name Problem SNOMED Code Status Onset Date Resolution Date Notes Provider Name and Address Organization Details Recorded Time History of deep vein thrombosi s 439929987 Active 2022 Becky Ramirez MD [address], [place], [address], [facility] 14:46:37 Lupus anticoagu lant disorder 36417091 Active 2022 Becky Ramirez MD [address], [place], [address], [facility] 14:46:51 Hypothyro idism 10199803 Active 2022 Becky Ramirez MD [address], [place], [address], [facility] 3 14:46:59 Mixed anxiety and depressiv e disorder 150273015 Active 2022 severe- in group home [facility] Becky Ramirez MD [address], [place], [address], [facility] 3 14:47:27 History of loop electrosu rgical excision procedure 75521608353 102 Active 2022 Becky Ramirez MD [address], [place], [address], [facility] 3 21:51:42 Problem Notes None recorded. Procedures Surgical History Date Name Laterality Status Provider Name and Address Organization Details Recorded Time 4 Date of Last Pap Smear completed Lena Georgina [facility] 06/23/2024 15:55:20 3 repair of nose completed Chanda Oliver [facility] 08/30/2023 11:12:31 insertion of stent into iliac vein completed SAHRA Starr [address], [place], [address], [facility] 06/23/2024 16:06:17 Imaging Results Imaging Date Name Status LastModified by Organization Details LastModified Time 09/09/2023 US, transvaginal completed [email or web address] [place] [facility] [address], [place], [address], 09/09/2023 10:16:24 09/09/2023 US, pelvis completed [email or web address] [place] [address], [place], [address], 09/09/2023 10:16:15 09/06/2023 US, pelvis completed [email or web address] [address], [place], [address], 09/24/2023 13:40:13 Procedure Notes None recorded. Medical Equipment None Reported. Allergies Allergen ID Allergen Name Allergen Category Reaction Reaction Severity Criticality Documentation Date Start Date Code Code System Note Provider Name and Address Organization Details Recorded Time 36577 Substance with sulfonami de structure and antibacte rial mechanism of action (substanc e) medicatio n Not available Not available Not available 08/30/2023 70047 8003 SNOMED Chanda Oliver [facility] 4 11:03:31 13409 ciproflox acin medicatio n Not available Not available Not available 08/30/2023 2551 RxNorm Alyssa Kam [facility] [address], [place], [address], [facility] 4 11:12:30 10493 magnesium salicylat e medicatio n Not available Not available Not available 08/30/2023 31653 RxNorm Alyssa Kam [facility] [address], [place], [address], [facility] 4 11:26:57 65503 morphine medicatio n Not available Not available Not available 08/30/2023 7052 RxNorm Alyssa Kam [facility] [address], [place], [address], [facility] 4 11:12:59 Medications Name Sig [...] completed Not Available Not Available Not Available acetaminoph en 500 mg tablet TAKE 2 TABLETS BY MOUTH EVERY 6 HOURS NEEDED FOR PAIN active Not Available Not Available No t Available ondansetron 8 mg disintegrat ing tablet [...] TAKE 1 TABLET BY MOUTH THREE TIMES DAILY. MUST LAST 30 DAYS. active Not Available Not Available No t [...] Updated DateTime 10/30/2022 162.56 cm 24.2 kg/m2 10408.52 g 115 mm[Hg] 82 mm[Hg] Maria Victoria Serna [facility] 3 14:15:25 Date Recorded Body height Body mass index (BMI) Body weight Systolic blood pressure Diastolic blood pressure Provider Name and Address Organization Details Last Updated DateTime 08/30/2023 162.56 cm 23 kg/m2 07307.38 g 107 mm[Hg] 71 mm[Hg] [facility] 4 10:59:25 Date Recorded Body height Body mass index (BMI) Body weight Systolic blood pressure Diastolic blood pressure Provider Name and Address Organization Details Last Updated DateTime 09/03/2023 162.56 cm 23.2 kg/m2 89245.97 g 105 mm[Hg] 70 mm[Hg] Chanda [facility] 4 14:44:23 Date Recorded Body height Body mass index (BMI) Body weight Systolic blood pressure Diastolic blood pressure Provider Name and Address Organization Details Last Updated DateTime 06/23/2024 162.56 cm 23.7 kg/m2 87474.75 g 124 mm[Hg] 85 mm[Hg] Lena Erickson [facility] 5 15:47:52 Social History Question Answer Notes LastModified by Organizat ion Details LastModified Time Tobacco Smoking Status Former Smoker Lena Erickson [facility] 06/23/2024 15:58:31 What Is Your Level [...] Or The Highest Degree You Have Received? [id number] Information not available 08/30/2023 What Is Your [...] Anxious, Or Unable To Sleep At Night)? [id number] Information not available 08/30/2023 Do You Use [...] SNOMED-CT Code Diagnosis ICD10 Code Diagnosis Note [id number] Becky Ramirez MD [place] [address] [address] 10/30/2022 13:32:28 10/31/2022 10:34:27 Cervical fibroid 971329501 D25.9 History of deep vein thrombosis 142886152 Z86.718 History of loop electrosurgical excision procedure 5772101230 9102 Z98.890 Lupus anti coagulant disorder 98070949 D68.62 Mixed anxi ety and depressive disorder 074993728 F41.8 Pain in pelvis 05433312 R10.2 Anemia 612240071 D64.9 Irregular periods 063248 07 N92.6 Sterilizat ion requested 425253785 Z30.2 466367 SAHRA Starr [place] [address],[place] [address] 08/30/2023 10:55:52 08/30/2023 11:42:01 Urinary symptoms 499474199 R39.9 Screening procedure 2012 5006 Z13.9 Vaginitis 60758359 N76.0 vaginitis panel sentgc/ct/ trich testing sentHIV/He p B&C/Syphil is testing ordered per pt requestvul adryan care guidelines discussed (d/c use of vagisil wash)UA - normal, cx sentrx sent for BV - r/b/a reviewedqu estions answereden couraged to schedule WWE Time spent in visit is a total of 25 mins with at least 50% of visit consisting of counseling and review of plan of care. Venereal d isease screening 099203669 Z11.3 Sexually t ransmitted infectious disease 9825588 A64 [id number] SAHRA Starr [place] [address],[place] [address] 09/03/2023 14:35:05 09/03/2023 15:26:16 Gynecologic examination 21884937 Z01.419 WWEBC - condomspap updateddec lined STI screen (has had recent negative testing)ma mmogram order given - encouraged to schedulero utine labs UTD/PCP Suggested Calcium with Vitamin D daily. Patient advised to get an annual flu shot in the fall and she could obtain at [facility] or [facility] take care clinic. Also to obtain TDap [...] email. Screening for malignant neoplasm of breast 205665133 Z12.39 Lesion of cervix 0070717 01 N88.9 recommende d updated pelvic u/s for h/o cervical mass 794477 [facility] [address] [address] 09/06/2023 16:11:39 09/06/2023 16:59:46 Pain in pelvis 49105231 R10.2 [id number] SAHRA Starr [place] [address] [address] 06/23/2024 15:29:57 06/23/2024 16:18:06 Urinary symptoms 157104559 R39.9 Patient presents with symptoms of UTI. [...] plan of care. Venereal d isease screening 553344229 Z11.3 Sexually t ransmitted infectious disease 5040852 A64 Health Concerns Section Related Observation LastModified by Organization Detai ls LastModified Time None Recorded Concern Status LastModified by Organization Details LastModified Time None Recorded Advance Directives Directive None Recorded Payers Encounter Date Sequence Insurance Name Policy Number Policy Hager Covered Member ID Hager Member ID Guarantor Name 10/30/2022 1 [employer] ON OR AFTER 10/20/20 (MEDICAID REPLACEMENT - HMO) Sahra Parks [id number] Sahra Parks 08/30/2023 1 [employer] [facility] ON OR AFTER 10/20/20 (MEDICAID REPLACEMENT - HMO) Sahra Parks [id number] Sahra Parks 09/03/2023 1 [facility] - DOS ON OR AFTER 20 (MEDICAID REPLACEMENT - HMO) Sahra Parks [id number] Sahra Parks 09/06/2023 1 [facility] - DOS ON OR AFTER 20 (MEDICAID REPLACEMENT - HMO) Sahra Parks [id number] Sahra Parks 06/23/2024 1 [facility] - DOS ON OR AFTER 20 (MEDICAID REPLACEMENT - HMO) aShra Parks [id number] Sahra Parks Notes Date Note Type Note Provider Name and Address Organization Details Recorded Time 3 text/html Patient is a 42yo who presents for several concerns. The patient lives at a group home in [place] due to a mental breakdown a couple years ago. She has a complicated psychiatric history and is a poor historian. 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 She reports bad cramping in her pelvis and was seen in ED in [place] for this in August and was treated for PID. She was found to have a cervical mass at this time. THen she was admitted to [facility] end of September for 3 days with [...] denies Becky Ramirez MD [address], [place], [address], [place] [facility] 10/30/2022 22:06:52 4 text/html 43yopresents for [...] hypothyroidism, hypercholesterolemia SAHRA Starr [address], [place], [address], [facility] 08/30/2023 11:41:23 4 text/html Annual [...] use; Encourage regular mammograms starting age 41Notes:43yo [id number] - condomsnormal/monthly periods currentlyh/o abnormal pap smears [...] hypothyroidism, hypercholesterolemia SAHRA Starr [address], [place], [address], [facility] 09/03/2023 15:25:12 5 text/html 43yopresents with c/o urinary symptomsdysuria, frequencywould like STI testing today, concerned her partner may have another partner neg pelvic painneg flank painsneg n/v/fneg flu-like symptoms SAHRA Starr [address], [place], [address], [facility] 06/24/2024 11:29:17 OBGyn Episode Ob Episode Information Episode Created Date Number of Fetuses Patient Bloodtype Patient rh Status Prepregnancy Weight lbs Domestic Partner Domestic Partner Phone Father Name Lgsw Status 10/31/19 1 CLOSED Fetus Data First Name Last Name Admitted to NICU Weight (g) Sex Living Outcome Pediatric Complications Fetus ID Race Codes Race Delivery Type 2522.87 [id number] M [id number] Vaginal Delivery Sonny Calculation Initial Sonny Date [...] Domestic Partner Domestic Partner Phone Father Name Lgsw Status 10/31/19 1 CLOSED Fetus Data First [...] Domestic Partner Domestic Partner Phone Father Name Lgsw Status 10/31/19 23 1 CLOSED Fetus Data [...]
--- OUTSIDE RECORDS SUMMARY | 2024-07-24 08:31 | XMS_ITS ---
Author Organization [facility] Address [address] [place] [address] Care Team Providers Care Associate Civil Engineer Name Role Phone Pierre Cisneros Primary [...] ?triploidy with Dr. Alejandro, D&C done at [facility]; the other due to low hormone [...] Overview (11/01/2020): With mesh Dr. Flynn at [facility] Tobacco use disorder complic ating , childbirth, [...]
--- OUTSIDE RECORDS SUMMARY | 2024-07-24 08:31 | XMS_ITS | Clinical Summary ---
Author Organization [facility] Address [address] [place] [address] Phone Care Team Providers Care Music Coordinator Name Role Phone Soila Santos MD Unavailable Echo Pollard MD Primary Care Provider [phone] Allergies Active Allergy Reactions Criticality Noted Date [...] 4 MG Tablet Take 4 mg by mouth every 8 hours as needed. 1 Active ondansetron (ZOFRAN-ODT) 8 MG TABLET [...] TABLET SR 24 HR XL tablet Take 150 mg by mouth every morning. Active ALPRAZolam (Xanax) 0.5 MG Tablet Take 0.5 mg by mouth 2 times daily as needed. Active levothyroxine (SYNTHROID) 150 MCG Tablet Take 1 Tablet by mouth daily. 90 Tablet 1 4 Active Additional Information Patient taking differently: 175 mcgOral DAILY, Reported on 07/17/2024 cyclobenzaprine (FLEXERIL) 10 MG Tablet Take 10 mg by mouth 3 times daily as needed. Active HYDROcodone-liza taminophen (NORCO) 5-325 MG Tablet Take 1 Tablet by mouth every 4 hours as needed. Active propranolol (INDERAL) 20 MG Tablet Take 20 mg by mouth 3 times daily as needed. Active naltrexone (DEPADE) 50 MG Tablet Take 50 mg by mouth daily. Active Encounters Date Type Department Care Team Description 07/21/2024 11:59 PM CDT [facility] [address] [place] [address] Hector Olsen APRN, CRNA 07/21/2024 [facility] [address] [place] [address] Adair Daily MD 07/17/2024 Travel 07/10/2024 Transcribe Orders [facility] Preop/Pacu II [address] [place] [address] Adair Daily MD Preop testing (Primary Dx) from Last 3 Months Immunizations Immunization Administration Dates Next Due Hpv, Unspecified Formulation 02/28/2009, 05/07/2007,01/21/2007,2006 Influenza Vaccine,unspecifie d Formulation 01/16/2011 TDAP Vaccine 04/22/2009 Family History Medical History Relation Name Comments Hypertension Father Chronic Obstructive Pulmonary Disease Mother Hypertension Mother Relation Name Status Comments Father Alive Mother Alive Social History Tobacco Use Types Packs/Day Years [...] CDT Inhaled Oxygen Concentration - - Weight 67.1 kg (148 lb) 07/17/2024 1:00 PM CDT Height 166.4 cm (5' 5.5 ) 07/17/2024 1:00 PM CDT Body Mass Index 24.25 07/17/2024 1:00 PM CDT Plan of Treatment Health Maintenance Due Date Last Done Comments Mammogram 1981 Hepatitis B Immunization (1 of 3 - 19+ 3-dose series) 2000 Pap Smear 2002 Cervical Cancer Screening (CCS) 08/19/2011 HPV/Cotest 08/19/2011 Td Immunization Every 10 Years (Adults With 1 Tdap) 04/22/2019 04/22/2009 Discussion re Starting/Frequency of Mammograms 2021 SARS-COV-2 Immunization ( season) 2023 05/06/2021, 12/13/2020 Influenza Immunization (Season Ended) 2024 01/16/2011 Respiratory Syncytial Virus (RSV) Immunization (Adult) (1 [...] age to complete this topic Insurance MEDICAID [place] Care Teams Music Coordinator Relationship Specialty Start Date End Date Echo Pollard MD [address] [address] PCP - General Primary Care 01/01/23 Soila Santos MD [address] [phone] Consulting Physician Endocrinology 12/17/22
--- OUTSIDE RECORDS SUMMARY | 2024-07-24 08:31 | XMS_ITS | Clinical Summary ---
Author Organization [facility] Address [address] [place] [address] Care Team Providers Care Radiator Core Tester Name Role Phone Echo Pollard MD Primary Care Provider [phone] David Alicea MD Unavailable Source Comments [facility],non-owned Affiliates and Associated Physician Practices is amultiple site organization consisting of ambulatory clinics and hospital sitesin [place], [place], [place] and [place]. This disclosure is being madepursuant to the Care Everywhere program and may not contain all information available regarding this patient. Last updated 18.[facility] Allergies Active Allergy Reactions Criticality Noted Date [...] tablet by mouth 10/19/2022 Active HYDROcodone-aceta minophen ([place]mar) 5-325 MG tablet 05/10/2023 Active fluticasone propionate (Flonase) 50 MCG/ACT nasal spray 04/23/2023 Active fluconazole (Diflucan) 150 MG tablet 06/06/2022 Active vitamin D, ergocalciferol, (Drisdol) 1.25 MG (72359 UT) capsule 05/10/2023 Active enoxaparin (Lovenox) 60 [...] Transfer of Care (MD Hemanth); Co Management SKILLED NURSING Problem Noted Date Diagnosed Date MDD (major [...] ?triploidy with Dr. Alejandro, D&C done at [facility]; the other due to low hormone [...] Overview (07/06/2010): With mesh Dr. Flynn at [facility] Tobacco use complicating or childbirth 07/06/2010 [...] Comments Blood Pressure 109/80 05/14/2023 1:41 PM HARVEST MANAGER Pulse 86 05/14/2023 1:41 PM HARVEST MANAGER Temperature 36.5 C (97.7 F) 12/05/2021 8:23 PM CDT Respiratory Rate 16 05/14/2023 1:41 PM HARVEST MANAGER Oxygen Saturation 94% 12/05/2021 9:00 PM CDT Inhaled Oxygen Concentration 21% 01/15/2011 1 2:06 AM CDT Weight 62.6 kg (138 lb) 05/14/2023 1:41 PM HARVEST MANAGER Height 160 cm (5' 3 ) 05/14/2023 1:41 PM HARVEST MANAGER Body Mass Index 24.45 05/14/2023 1:41 PM HARVEST MANAGER Plan of Treatment Health Maintenance Due Date [...] - 2023-2 5 season) 2023 05/06/2021, 12/13/2020 DEPRESSION SCREENING 04/22/2024 INFLUENZA VACCINE (Season Ended) 2024 01/16/2011 PAP SMEAR 09/02/2026 09/03/2023 ZOSTER VACCINE (1 [...] 10:41 PM 01/17/2011 1:49 AM Care Teams Radiator Core Tester Relationship Specialty Start Date End Date Echo Pollard MD [address] [place] [address] [address] [place] [id number] PCP - General Family Medicine 05/14/23 David Alicea MD [address] [place] [phone] Neurology 05/14/23
--- OUTSIDE RECORDS SUMMARY | 2024-07-24 08:31 | XMS_ITS | Encounter Summary ---
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 He states that they have everything they need and pt should be good to go for Saturday. JESS called and spoke with pt. Confirmed information for Saturday. 0630 arrival, NPO 4 hours prior. Shealso confirmed that she plans to come to clinic on 07/27 at [address] Garcia in person. Appointment letter sent via [employer]. documented in this encounter Plan of Treatment Not on file documented as of this encounter Visit Diagnoses Not on filedocumented in this encounter Care Teams Video Presentation Operator Relationship Specialty Start Date End Date Pierre Cisneros PA [address] [place] [address] PCP - General Internal Medicine 09/04/23 documented as of this encounter
--- OUTSIDE RECORDS SUMMARY | 2024-07-24 08:31 | XMS_ITS | Referral Summary ---
Author Organization [facility] Address [address] [place] [address] Care Team Providers Care Sand Cutting Machine Operator Name Role Phone Pierre Cisneros Primary Care Provider + Encounters Date Type Department Care Team Description 07/23/2024 Telephone [facility] Radiology [address] [place] [phone] Becky Mtz, RN 07/22/2024 Telephone [facility] Radiology [address] [place] [address] 324[address] Becky Mtz, RN 07/22/2024 Orders Only [facility] Hematology [address] [facility] Floor 6 [place] [phone] Hailey Choi, YANET Iron deficiency anemia, unspecified iron deficiency anemia type (Primary Dx) 07/21/2024 Telephone [facility] Radiology [address] [place] [address] Becky Mtz, RN 07/20/2024 Orders Only [facility] Radiology, Interventional Radiology [address] [facility] [address] [place] [phone] Becky Olivo, YANET May-Thurner syndrome (Primary Dx); Deep venous thrombosis (HCC); History of thrombosis; Venous insufficiency of both lower extremities 07/20/2024 Telephone [facility] Radiology [address] [place] [address] Becky Mtz, RN 07/18/2024 2:23 AM CDT - 07/18/2024 11:59 PM CDT Hospital Encounter [facility]iology [facility] [address] [place] [address] Discharge Disposition: Discharge to home or self care 07/17/2024 Telephone [facility] Radiology 1 [place] [address] Becky Mtz, RN 07/16/2024 Telephone [facility] Radiology 1 [place] [address] Becky Mtz, RN 07/15/2024 Telephone [address] [place] [address] Naveed Churchill MD 07/15/2024 Telephone [facility] Radiology [address] [place] [address] Becky Mtz, RN 07/14/2024 Telephone [facility] Radiology [address] [place] [address] Becky Mtz, RN 07/14/2024 9:30 AM CDT Lab [facility] - Lab Collection [address] [facility] 6 [place] [address] Iron deficiency anemia, unspecified iron deficiency anemia type 07/14/2024 10:15 AM CDT Office Visit [facility] Hematology [facility] [address] [phone] Anna Rizzo MD Anemia, unspecified type (Primary Dx); Iron deficiency anemia, unspecified iron deficiency anemia type 07/13/2024 Telephone [facility] Radiology [address] [place] [address] Becky Mtz, RN 07/13/2024 Orders Only [facility] Radiology [address] [place] [address] Becky Mtz, RN May-Thurner syndrome (Primary Dx) 07/08/2024 1:00 PM CDT Office Visit [facility] Radiology, Interventional Radiology [address] [phone] Varsha Lizarraga PA May-Thurner syndrome (Primary Dx); Deep venous thrombosis (HCC); Positive antinuclear antibody 07/08/2024 11:00 AM CDT Ancillary Procedure [facility] Vascular Lab at [facility] [facility] 8th [place] [address] [place] [address] May-Thurner syndrome 06/26/2024 Telephone [facility] Radiology [address] [place] [address] Becky Mtz, RN 06/25/2024 Telephone [facility] Radiology [address] [place] [address] Becky Mtz, RN 06/22/2024 Telephone [facility] Radiology [address] [place] [address] Becky Mtz, RN 06/19/2024 Telephone [facility] Radiology, Interventional Radiology [address] [facility] [address] [place] [address] Becky Olivo, YANET Appointment 06/11/2024 Telephone [facility] Radiology [address] [place] [address] Becky Mtz, RN 06/10/2024 Telephone [facility] Radiology [address] [place] [address] Becky Mtz, RN 05/25/2024 Telephone [facility] [address] [facility] 3rd Floor [address] [place] [address] Caryl Nash LPN 05/20/2024 Telephone [facility] Rheumatology [address] [place] [address] [address] [place] [address] Ac Mendiola RMA from Last 3 Months Allergies Active Allergy Reactions Criticality Noted Date Comments Ciprofloxacin Nausea only,Vomiting Reaction: Nausea, Vomiting, Latex Rash Medium 01/12/2011 rash Morphine Swelling,Anaphylaxis ,Unknown High 07/06/2010 Throat swelling Sulfa (Sulfonamide Antibiotics) Nausea And Vomiting,Rash,Nausea only,Vomiting Medium 07/06/2010 Medications levothyroxine (SYNTHROID) 175 mcg tablet Take 1 tablet (175 mcg total) by mouth lead application architect before breakfast 30 tablet 10/20/19 23 Active [...] 24 Active gabapentin (NEURONTIN) 100 mg capsule 01/31/20 [...] ?triploidy with Dr. Alejandro, D&C done at [facility]; the other due to low hormone [...] Overview (11/01/2020): With mesh Dr. 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 Gender Identity Female 10/24/2023 9:52 AM CDT [...] on file Medical Devices Implanted Type Area Fire Captain Marine Device Identifier Shelf Expiration Date Model / Serial / Lot [employer] Abre 16mm 100mm Self Expand Rotate Thumbwheel Hemostatic Valve [id number] - [id number] Implanted:Qty: 1 on 10/15/2022 at [facility] [employer] 10/30/2024 [id number] / / [id number] [employer] Abre 12mm 120mm Self Expand Rotate Thumbwheel Hemostatic Valve [id number] - [id number] Implanted:Qty: 1 on 11/14/2023 at [facility] [employer] 01/16/2025 [id number] / / [id number] Procedures Procedure Name Priority Date/Time Associated Diagnosis [...] only and have not been reviewed by [facility] Radiology. There will be no report generated by a [facility] Radiologist. Narrative RAD_PACS_[facility] - 07/18/2024 2:23 AM CDT EXAMINATION: Images For Reference Purposes Only us Umberto Magana MD [facility] [place]ED[place] Final Result [facility]_PACS_[facility] * Differential, auto (07/14/2024 9:31 AM CDT) Neutrophil abs 2.5 1.5 - 6.5 K/cumm Comment:Testing performed by : [facility] Heme Lab, [address] [place] [phone] Lymphocyte abs 2.1 0.8 - 3.3 K/cumm TEZ BA Comment:Testing performed by : [facility]e [facility], [address] [place] [phone] Monocyte abs 0.6 0.2 - 0.8 K/cumm C[facility]ER [facility] Comment:Testing performed by : [facility]e [facility], [address] [place] [phone] Eosinophil abs 0.2 0.0 - 0.5 K/cumm [facility] Comment:Testing performed by : [facility], [address] [place] [phone] Basophil abs 0.0 0.0 - 0.1 K/cumm [facility] Comment:Testing performed by : [facility], [address] [place] [phone] Neutrophil pct 45.7 % [facility] Comment: Interpretive Data Percent cell count reference ranges are not reported, since discordance with absolute values may lead to misinterpretation of CBC data. Current Interpretive Data was last revised on 2017. Testing performed by: [facility], [address] [place] [phone] Lymphocyte pct 39.3 % [facility] Comment: Interpretive Data Percent cell count reference ranges are not reported, since discordance with absolute values may lead to misinterpretation of CBC data. Current Interpretive Data was last revised on 2017. Testing performed by: [facility], [address] [place] [phone] Monocyte pct 10.8 % [facility] Comment: Interpretive Data Percent cell count reference ranges are not reported, since discordance with absolute values may lead to misinterpretation of CBC data. Current Interpretive Data was last revised on 2017. Testing performed by: [facility], [address] [place] [phone] Eosinophil pct 3.4 % [facility] Comment: Interpretive Data Percent cell count reference ranges are not reported, since discordance with absolute values may lead to misinterpretation of CBC data. Current Interpretive Data was last revised on 2017. Testing performed by: [facility], [address] [place] [phone] Basophil pct 0.8 % [facility] Comment: Interpretive Data Percent cell count reference ranges are not reported, since discordance with absolute values may lead to misinterpretation of CBC data. Current Interpretive Data was last revised on 2017. Testing performed by: [facility], [address] [place] [address] Blood 07/14/2024 9:31 AM CDT 07/14/2024 9:39 AM CDT Anna Rizzo MD LAB BLOOD ORDERABLES Final Result [facility] [place] [address] * (ABNORMAL) CBC with auto differential (07/14/2024 9:31 AM CDT) WBC 5.4 3.8 - 9.9 K/cumm Comment:Testing performed by : [facility]e [facility], [address] [place] [address] Hgb 10.3(L) 11.9 - 15.5 g/dL [facility] Comment:Testing performed by : [facility], [address] [place] [address] Hct 32.2(L) 35.6 - 45.5 % CERNORMA [facility] Comment:Testing performed by : [facility], [address] [place] [address] Plt 304 150 - 400 K/cumm [facility] Comment:Testing performed by : [facility], [address] [place] [address] MPV 8.0 6.8 - 10.4 fL CERNORMA [facility] Comment:Testing performed by : [facility], [address] [place] [address] RBC 4.10 3.90 - 5.20 M/cumm CERNORMA [facility]J Comment:Testing performed by : [facility], [address] [place] [address] MCV 78.6(L) 81.3 - 96.4 fL CERNOMRA [facility]J Comment:Testing performed by : [facility], [address] [place] [address] MCH 25.1(L) 27.1 - 33.3 pg TEZ [facility]VALOS Comment:Testing performed by : [facility], [address] [place] [address] MCHC 31.9(L) 32.3 - 35.7 g/dL TEZ AVALOS Comment:Testing performed by : [facility], [address] [place] [address] RDW CV 16.8(H) 11.1 - 14.9 % TEZ AVALOS Comment:Testing performed by : [facility], [address] [place], [place] [phone] NRBC abs 0.00 0.00 - 0.01 K/cumm TEZ AVALOS Comment:Testing performed by : [facility], [address] [place] [address] Blood 07/14/2024 9:31 AM CDT 07/14/2024 9:39 AM CDT us Anna Rizzo MD LAB BLOOD ORDERABLES Final Result TEZ [facility] Department [place] [address] * Reticulocyte Count (07/14/2024 9:31 AM CDT) Retics, absolute 0.059 0.020 - 0.100 M/cumm Comment:Testing performed by : [facility], [address] [place] [address] Retics 1.4 0.5 - 1.8 % TEZ AVALOS Comment:Testing performed by : [facility], [address] [place] [address] Blood 07/14/2024 9:31 AM CDT 07/14/2024 9:39 AM CDT us Anna Rizzo MD LAB BLOOD ORDERABLES Final Result Performing Organization Address [facility] [place] [place] [address] * (ABNORMAL) Iron profile w/ IBC (07/14/2024 9:31 AM CDT) Iron 23(L) 35 - 145 mcg/dL TIBC 357 250 - 400 mcg/dL [facility] Transferrin saturation 6(L) 20 - 50 % [facility] Blood 07/14/2024 9:31 AM CDT 07/14/2024 9:42 AM CDT Anna Rizzo MD LAB BLOOD ORDERABLES Final Result Performing Organization Address [facility] [place] [place] [address] * (ABNORMAL) Ferritin (07/14/2024 9:31 AM CDT) Ferritin 12(L) 13 - 150 ng/mL Blood 07/14/2024 9:31 AM CDT 07/14/2024 9:42 AM CDT Anna Rizzo MD LAB BLOOD ORDERABLES Final Result Performing Organization Address [facility] Co de Phone Number [facility] [place] [address] * US VEIN DUPLEX LOWER EXTREMITY LEFT LIMITED, UNILATERAL (07/08/2024 11:19 AM CDT) Anatomical Region Laterality Modality Vascular Left Ultrasound 07/08/2024 10:5 8 AM CDT Narrative 07/10/2024 7:45 AM CDT [facility] - Department of Vascular Surgery, Vascular Laboratory [address] [place] [address] Lower Extremity Venous Ultrasound Report Patient Name: LUCEI PARKS : 1980 (43y 10m) Study Date: 07/08/2024 10:58:37 AM Gender: F Tech: Vickey CONRAD Location: [facility] Ref Provider: UMBERTO MAGANA Quality: Adequate Order [...] INDICATIONS: I87.1 Compression of vein. FINDINGS: Performing Insulator Technician: Erica Conrad RVT. Left: Venous Doppler signals [...] Electronically Signed By: Rolf Nair MD [facility] [phone] 07/10/2024 7:16:00 AM CDT Procedure Note Rolf Nair MD - 07/10/2024 [facility] - Department of Vascular Surgery,Vascular Laboratory [address] [place] [address] Lower Extremity Venous Ultrasound Report Patient Name: LUCIE PARKS : 1980 (43y 10m) Study Date: 07/08/2024 10:58:37 AM Gender: F Tech: Vickey CONRAD Location: [facility] Ref Provider: UMBERTO MAGANA Quality: Adequate Order Provider: UMBERTO MAGANA PROCEDURES: Vascular Report: Venous Duplex imaging was performed in the left lower extremity. Thecommon femoral, femoral, popliteal, posterior tibial, peroneal veins were evaluated forpatency, spontaneity and phasicity with Doppler, compression and augmentationmaneuvers. Great saphenous vein proximal at the junction was evaluated with compressionmaneuvers. INDICATIONS: I87.1 Compression of vein. FINDINGS: Performing Insulator Technician: Erica Conrad RVT. Left: Venous Doppler signals [...] Electronically Signed By: Rolf Nair MD [facility] [phone] 07/10/2024 7:16:00 AM CDT Umberto Magana MD [facility] PROCEDURES Final Result * Pap and High Risk HPV, reflex to Genotyping (10/17/2022 4:58 PM CDT) Thin prep (Pap test) 10/17/2022 4:58 PM CDT 10/17/2022 6:01 PM CDT Narrative PATHOLOGY [facility] - 10/25/2022 2:38 PM CDT EPIC results best viewed via link to PDF [facility] [place] [address] Note to Patients: This report may contain [...] Gender: F : 1980 (Age: 42) Address: [place] [address] Hospital #: [id number] Service: Medical Location: [place] [address] Patient Type: [facility] Inpatient Taken: 10/17/2022 Received: 10/17/2022 Accessioned: [...] 68. This HPV test was performed at [facility] in [place], [place] utilizing the Gen-Probe Aptima assay. This specimen has been rescreened in accordance with this laboratory's Director Of Agriculture Program. /10/25/2022 14:38 SANDI Gill(ASCP) Report Electronically [...] histologic results be correlated for laboratory quality engineer & improvement standards. FOR ALL [...] AUB. The HPV test was performed by [facility], [address] [place] [address]. Report Images and scanned documents, if included only viewable in PDF version The performance characteristics of some immunohistochemical stains, in-situ hybridization and fluorescence in-situ hybridization tests and immunophenotyping by flow cytometry cited in this report (if any) were determined by the Surgical Pathology Department at [facility] as part of an ongoing software quality assurance analyst program and in compliance with federally [...] determined by the Surgical Pathology Department of [facility]. It has not been cleared or approved by the U. S. Food and Drug Administration. Jodee De Santiago MD LAB CYTOLOGY O RDERABLES Final Result PATHOLOGY [facility] 3rd Floor [place], [place] [phone] from Last 3 Months or Most Recently Relevant to Health Maintenance Insurance [facility] Advance Directives For more information, please contact: [phone] * Full Code (Latest Code Status on File) Date Activated Date Inactivated Comments 11/14/2023 5:19 PM 11/15/2023 7:00 PM * Full Code Date Activated Date Inactivated Comments 11/14/2023 9:40 AM 11/14/2023 5:19 PM * Full Code Date Activated Date Inactivated Comments 10/15/2022 2:44 PM 10/18/2022 7:48 PM Care Teams Sand Cutting Machine Operator Relationship Specialty Start Date End Date Pierre Cisneros PA [address] [place] [address] PCP - General Internal Medicine 09/04/23
--- OUTSIDE RECORDS SUMMARY | 2024-07-24 08:32 | XMS_ITS | Data Portability ---
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 pain 793693575 M54.50 positive straight leg raising sign on right Attention deficit hyperactivity disorder, predominantly inattentive type 91341935 F90.0 Chronic id iopathic constipation 52786405 K59.04 Bipolar disorder 5556644 4 F31.9 Cigarette smoker 4643140 7 F17.210 Hypothyroidism 49731569 E03.9 Seizure disorder 4736023 02 G40.909 Smoker 77589234 F17.193 [id number] BRADY Bautista [facility] [address] [facility] [place] [address] 12/06/2023 11:56:31 12/06/2023 12:53:03 Painful urging to urinate 96992107 R30.0 Acute otitis media 28866 03 H66.93 Hypothyroidism 95973521 E03.9 Overactive urinary bladder 503806834 N32.81 Insomnia 014542099 G47.0 0 Loss of hair 724945025 L 65.9 Vitamin B1 2 deficiency (non anemic) 66566572 E53.8 Hyperlipidemia 35898721 E78.5 Allergic rhinitis 928765 04 J30.9 Anti-nucle ar factor detected 312804710 R76.8 Anxiety 35972953 F41.9 Attention deficit hyperactivity disorder, predominantly inattentive type 01246639 F90.0 Bipolar disorder 3030890 4 F31.9 Deep venou s thrombosis 845682467 I82.947 [id number] BRADY Bautista [facility] [address] [place] [address] 12/31/2023 14:14:10 12/31/2023 14:59:42 Pain of bilateral knee joints 5704002442 98041 M25.561 M25.562 pain with extension to resistance bilateral knees Allergic rhinitis 805236 04 J30.9 Acute sinusitis 05120972 J01.90 Deep venou s thrombosis 636316681 I82.409 Bipolar disorder 0545415 4 F31.9 Chronic low back pain 27 7698630 M54.50 Depressive disorder 3548 9007 F32.A Cobalamin deficiency 190 833606 E53.8 Hypothyroidism 07433215 E03.9 Anxiety 60398167 F41.9 [id number] BRADY Bautista [facility] [address] [place] [address] 03/05/2024 11:05:13 03/05/2024 11:37:51 Acute sinusitis 62185089 J01.90 Hypothyroidism 19728871 E03.9 Pain of bi lateral knee joints 5842814901 30794 M25.561 M25.562 pain with extension to resistance bilateral knees Allergic rhinitis 820818 04 J30.9 Anxiety 93533060 F41.9 Attention deficit hyperactivity disorder, predominantly inattentive type 58209535 F90.0 Bipolar disorder 0503835 4 F31.9 Chronic et hmoidal sinusitis 56814477 J32.2 Insomnia 265026369 G47.0 0 Nicotine dependence 5629 4008 F17.200 Seizure disorder 2241774 02 G40.909 Vitamin B1 2 deficiency (non anemic) 28720814 E53.8 [id number] RIP Cutler [facility] [place] [address] [place] [address] 05/04/2024 13:54:22 05/04/2024 14:44:14 Dysfunction of left eustachian tube 5700918670 932070 H69.92 Chronic sinusitis 801840 00 J32.9 Hypertroph y of nasal turbinates 93246834 J34.3 [id number] BRADY Bautista [address] [address] 05/05/2024 15:29:31 05/06/2024 10:31:38 Migraine 61318271 G43.909 Restless legs 82521038 G 25.81 Depressive disorder 3548 9007 F32.A Dysfunctio n of bilateral eustachian tubes 2109285933 880662 H69.93 Sinusitis 78069640 J32.9 Acute otitis media 35025 03 H66.93 Allergic rhinitis 381372 04 J30.9 [id number] Adair Daily MD [facility] [place] [address] [place] [address] 06/24/2024 15:00:56 06/25/2024 15:48:09 Deviated nasal septum 859508204 J34.2 Chronic ma xillary sinusitis 86286350 J32.0 Chronic et hmoidal sinusitis 56165289 J32.2 [id number] BRADY Bautista [facility] [address] [address] 07/20/2024 15:25:24 07/20/2024 16:39:11 Stented artery 223516140 R09.89 lerft iliac Hypothyroidism 17450169 E03.9 Pain of le ft lower leg 0338869348 81104 M79.662 Health Concerns Section Related Observation LastModified by Organization Detai ls LastModified Time None Recorded Concern Status LastModified by Organization Details LastModified Time None Recorded Advance Directives Directive None Recorded Payers Encounter Date Sequence Insurance Name Policy Number Policy Hager Covered Member ID Hager Member ID Guarantor Name 03/05/2024 1 [facility] ON OR AFTER 10/20/20 (MEDICAID REPLACEMENT - HMO) Sahra Parks [id number] Sahra Parks 05/04/2024 1 [facility] ON OR AFTER 10/20/20 (MEDICAID REPLACEMENT - HMO) Sahra Parks [id number] Sahra Parks 05/05/2024 1 [facility] ON OR AFTER 10/20/20 (MEDICAID REPLACEMENT - HMO) Sahra Parks [id number] Sahra Parks 06/24/2024 1 [facility] ON OR AFTER 10/20/20 (MEDICAID REPLACEMENT - HMO) Sahra Pakrs [id number] Sahra Parks 07/20/2024 1 [facility] ON OR AFTER 10/20/20 (MEDICAID REPLACEMENT - HMO) Sahra Parks [id number] Sahra Parks Notes Date Note Type Note Provider Name and Address Organization Details Recorded Time 03/05/2024 text/html ears ache bilaterally , sinus pressure , gaining weight . BRADY Bautista [address] [place] [address], [address], [facility] 03/09/2024 14:37:05 05/04/2024 text/html This patient has [...] a repeat sinus CT. RIP Cutler [address] [place], [place], [address], [employer] 05/04/2024 14:43:41 05/05/2024 text/html sinus pressure , ears still bothering her , no fever BRADY Bautista [address], [place], [address], [employer] 05/12/2024 15:37:51 06/24/2024 text/html this patient had a CT which demonstrated maxillary ethmoid sinusitis with deviated septum. She reports nasal congestion headaches and mucus production for many years. Antibiotics helped very temporarily. She also had an audiogram which was essentially normal. Adair Daily MD [address], [place], [address], [employer] 06/24/2024 15:31:15 07/20/2024 text/html leg turns purple , hurts at site of stent , stent seems to move and is painful when it moves left groin BRADY Bautista [address], [place], [address], [employer] 07/21/2024 14:36:37 OBGyn Episode No OBEpisode recorded.
--- OUTSIDE RECORDS SUMMARY | 2024-07-24 08:32 | XMS_ITS ---
Author Organization [facility] Address [address] [place] [address] Care Team Providers Care Trim Setter Helper Name Role Phone Hector Solis Primary Care Provider [phone] Nadja Martinez Unavailable [phone] Allergies Allergen (clinical drug ingredient) Drug/Non Drug [...] Status Risk Notes Problem Posttraumatic stress disorder (87509465) PTSD (post-traumati c stress disorder) (F43.10) Active confirmed Problem Moderate recurrent major depression (11837573) MDD (major depressive disorder), recurrent episode, moderate (F33.1) Active confirmed Problem Obsessive-compuls vernon disorder (138320853) OCD (obsessive compulsive disorder) (F42.9) Active confirmed Encounters Encounter Location Date Provider Diagnosis [address] [address] 11/22/2023 Nadja Martinez Schizoaffective disorder, bipolar type [...] or be administered own oral medications per [facility] protocols. Provided informed consent with understanding of [...] or be administered own oral medications per [facility] protocols. Provided informed consent with understanding of [...] Notes * Sahra PARKSDOB:1980 (43 yo F)Acc No.[id number]:11/22/2023 Patient: Yahir ROBERTO Sahra Blank Provider: Nathaniel Martinez DNP, PMHNP-BC, KEVIN :1980 A ge:43 Y S ex:Female Date:11/22/2023 Address:[address] [place] [address] Pcp:Hector Solis Subjective: * Chief Complaints: * [...] involved in behavioral health treatment S creening: [place] Suicide Severity Rating Scale (LF) D o [...] or be administered own oral medications per [facility] protocols. Provided informed consent with understanding of [...] true * Provider: Nathaniel Martinez DNP, PMHNP-, FAN MAIL CLERK Date: 0 11/22/2023 Generated for Printing/Faxing/eTransmitting on: 0 07/24/2024 08:32 AM CDT History and Physical Notes * HPI [...] and specialists. Had surgery Therapy? Yes Screening [place] Suicide Sev erity Rating Scale (LF) Do [...]
--- OUTSIDE RECORDS SUMMARY | 2024-07-24 08:32 | XMS_ITS ---
Author Organization [facility] Address [address] [place] [address] Care Team Providers Care Customer Relations Specialist Name Role Phone Hector Solis Primary Care Provider [phone] Nadja Martinez [phone] REASON FOR VISIT rs frm 11/11;r/s from 11/05/23--follow up Social History Sex Assigned At : Social History Observation Description Sex Assigned At Female Encounters Encounter Location Date Provider Diagnosis [address] [place] [address] 11/19/2023 Hector Solis Plan Of Treatment No Information Progress Notes * Sahra PARKS RosamariaDOB:1980 (43 yo F)Acc No.[id number]:11/19/2023 UNLOCKED PROGRESS NOTE Progress Notes Patient: Sahra BARBOSA Provider: Rajinder Solis :1980 A ge:43 Y S ex:Female Date:11/19/2023 Address:[address] [place], [place] [id number] Subjective: * Chief Complaints: * 1 . Rs frm 11/11;r/s from 11/05/23--follow up. * Medical History: Objective: * Vitals: Assessment: Plan: * Treatment: * * Electronic signature of Paola Solis , [id number] on 07/24/2024 at 08:32 AM CDT Sign off status: Pending * Provider: Rajinder Solis Date: 0 11/19/2023 Generated for Swapnil phillips/Geeta/eTransmitting on: 0 07/24/2024 08:32 AM CDT
--- OUTSIDE RECORDS SUMMARY | 2024-07-24 08:32 | XMS_ITS | Patient Health Record ---
Author Organization [facility] Address [address] [place] [address] Care Team Providers Care Dry Cans Operator Name Role Phone Hector Solis Primary Care Provider [phone] Nadja Martinez Unavailable [phone] Kin Melara Unavailable [phone] Allergies Allergen (clinical drug ingredient) Drug/Non Drug Allergy documented on EMR Reaction Allergy Type Onset Date Status morphine Morphine Unknown Drug Allergy Active Results Component Value Reference Range Notes Urinalysis In-House, Routine Reviewed date:11/12/2023 02:51:20 PM Interpretation: Performing Lab: Notes/Report: Urine-Color yellow Appearance cloudy Leukocytes neg Nitrite, Urine neg Urobilinogen,Semi-Qn .2 Protein neg pH 6 Occult Blood neg Specific [place] 1.02 Ketones neg Bilirubin neg Glucose neg Reason For Referral Reason SI. Email sent to cI and SR BH Diagnosis 1 Schizoaffective diso rder, bipolar type (F25.0) Referral Organization [facility] Referring Provider First Name Nadja Referring Provider Last Name Juan Referring Provider Speciality Psychiatry Referred Provider Specialty Behavioral [facility] Clinical Notes Мария Campos 08/20 02:17:40 PM > service writer texted and called ct. Also sent [...] W/U Status Risk Notes Problem Tobacco user (678605990) Nicotine dependence, unspecified, uncomplicated (F17.200) Active confirmed Problem Posttraumatic stress disorder (35059954) PTSD (post-traumatic stress disorder) (F43.10) Active confirmed Problem Chronic pain (20405756) Chronic pain (G89.29) Active confirmed Problem Generalized anxiety disorder (51088073) WILLAM (generalized anxiety disorder) (F41.1) Active confirmed Problem Moderate recurrent major depression (80020363) MDD (major depressive disorder), recurrent episode, moderate (F33.1) Active confirmed Problem Hypothyroidism (19410874) Hypothyroidism (acquired) (E03.9) Active confirmed Problem Obsessive-compulsi ve disorder (054883363) OCD (obsessive compulsive disorder) (F42.9) Active confirmed Problem Hypercoagulable state (16166611) Hypercoagulable state (D68.59) Active confirmed Vital Signs Heart Rate 73 /min 11/12/2023 Temperature 97.2 degrees Fahrenheit 09/12/2023 Respiratory Rate 16 /min 11/12/2023 Blood pressure diastolic 70 mm Hg 11/12/2023 Oximetry 99 % 11/12/2023 Height 65 in 11/12/2023 Blood pressure systolic 102 mm Hg 11/12/2023 Weight 136.2 lbs 11/12/2023 BMI 22.66 kg/m2 11/12/2023 Encounters Encounter Location Date Provider Diagnosis [address] [place] [address] 08/16/2023 Nadja Martinez Schizoaffective disorder, bipolar type F25.0 and WILLAM (generalized anxiety disorder) F41.1 [facility] [address] [place] [address] [place] [address] 09/12/2023 Nadja Martinez Schizoaffective disorder, bipolar type F25.0 and WILLAM (generalized anxiety disorder) F41.[address] [place] [address] 11/12/2023 Hector Solis Hematochezia K92.1 ; Chronic daily headache R51.9 ; Abnormal antinuclear antibody titer R76.8 ; Hypercoagulable state D68.59 ; Chronic pain G89.29 ; Hypothyroidism (acquired) E03.9 ; Dysuria R30.0 and Alopecia L65.[address] [place] [address] 11/22/2023 Nadja Martinez Schizoaffective disorder, bipolar type F25.0 ; WILLAM (generalized anxiety disorder) F41.1 ; PTSD (post-traumatic stress disorder) F43.10 ; MDD (major depressive disorder), recurrent episode, moderate F33.1 and OCD (obsessive compulsive disorder) F42.9 [facility] [address] [place] [address] 08/14/2023 Nadja Martinez [address] [place] [address] 09/10/2023 Hector Solis Assessments Encounter Date Diagnosis (ICD Code) Assessment Notes Treatment Notes Treatment Clinical Notes Section Notes 11/12/2023 Hematochezia (ICD-10 - K92.1) CONSIDER FURTHER EVALUATION WITH COLONOSCOPY AFTER COMPLETION LF VASCULAR PROCEDURE AT [facility] 11/12/2023 Chronic daily headache (ICD-10 - R51.9) RESUME TOPIRAMATE, AVOID IBUPROFEN 11/22/2023 Schizoaffective disorder, bipolar type (ICD-10 - F25.0) 11/22/2023 WILLAM (generalized anxiety disorder) (ICD-10 - F41.1) 09/12/2023 Schizoaffective disorder, bipolar type (ICD-10 - F25.0) Continue current medications. Continue services as scheduled. Labs completed recently. May self-administer medications or be administered own oral medications per [facility] protocols. Provided informed consent with understanding of side effects, adverse effects, risks and benefits as well as alternative treatments as previously discussed and with the above recommended medications & other aspects of the treatment program. Agrees to return sooner if symptoms worsen or suicidal or homicidal ideations occur. 08/16/2023 Schizoaffective disorder, bipolar type (ICD-10 - F25.0) Increased Effexor to help with Depression. Referred to [facility]. Client calmed before the end of the call and contacted for safety and that she would tile picker for Crisis. Which she did and they spoke with her ensuring safety. Continue services as scheduled. Labs completed recently. May self-administer medications or be administered own oral medications per [facility] protocols. Provided informed consent with understanding of side effects, adverse effects, risks and benefits as well as alternative treatments as previously discussed and with the above recommended medications & other aspects of the treatment program. Agrees to return sooner if symptoms worsen or suicidal or homicidal ideations occur. 08/16/2023 WILLAM (generalized anxiety disorder) (ICD-10 - F41.1) 09/12/2023 WILLAM (generalized anxiety disorder) (ICD-10 - F41.1) 11/22/2023 PTSD (post-traumatic stress disorder) (ICD-10 - F43.10) 11/12/2023 Abnormal antinuclear antibody titer (ICD-10 - R76.8) KEEP RHEUM APPT 11/12/2023 Hypercoagulable state (ICD-10 - D68.59) F/U WITH HEME AND VASCULAR AT [facility] 11/22/2023 MDD (major depressive disorder), recurrent episode, moderate (ICD-10 - F33.1) 11/22/2023 OCD (obsessive compulsive disorder) (ICD-10 - F42.9) 11/12/2023 Chronic pain (ICD-10 - G89.29) 11/12/2023 Hypothyroidism (acquired) (ICD-10 - E03.9) SEES ENDO AT [facility] 11/12/2023 Dysuria (ICD-10 - R30.0) 11/12/2023 Alopecia (ICD-10 - L65.9) 11/12/2023 Other JACKI SIGNED FOR ALL RECORDS FROM [facility] FOR THE PAST 2 YEARS 11/22/2023 Other Continue current medications. Will monitor for psychosis symptoms, but taking schizoaffective off the med list. Adding OCD and PTSD. Continue services as scheduled. Labs completed recently. May self-administer medications or be administered own oral medications per [facility] protocols. Provided informed consent with understanding of [...] Insured Coverage Start Date Coverage End Date [employer]RA[employer] [facility] Attn Claims Department [address] [place] [address] [phone] [id number] CharlySahra Self - patient is the insured 2 [employer] [address] [place] [phone] [id number] Shannon Parksah Self - patient is the insured 1 2 [place] [employer] [address] [place] [phone] [id number] Charly Sahra Self - patient is the insured 1 2 [employer] Attn Claims Department [address] [place] [address] [phone] [id number] CharlySahra Self - patient is the insured 2 Medical (General) History Medical History History ICD Code hypothyroidism. Depressive disorder F32.9 Psychosis, unspecified psychosis type F2 9 deep vein thrombosis Schizoaffective disorder, bipolar type F 25.0 Surgical History Surgery Date(Month/Year) D and C 2001 Hernia 2005 DVT 2022 Hospitalization History Reason Date(Month/Year)
== END 2024-07-24 08:25 | disposition home or self-care (01) ==
PROVIDERS: PCP Physician Assistant
DX: I82.412 Acute embolism and thrombosis of left femoral vein (principal); I82.422 Acute embolism and thrombosis of left iliac vein; R09.89 Other specified symptoms and signs involving the circulatory and respiratory systems
CPT/HCPCS: 74177; 93971; Q9967

== ENCOUNTER 2024-12-30 15:28 | Outpatient (CLI) | payer OTHER, SELFPAY ==
--- OUTSIDE RECORDS SUMMARY | 2013-02-27 01:00 | XMS_ITS | Encounter Summary ---
Author Organization [facility] Healthcare Address [address] [place] [address] Care Team Providers Care Printing Bindery Assistant Name Role Phone Unavailable Primary Care Provider Unavailabl e Reason for Visit * Diagnostic Imaging (Routine) - Pending Review Specialty Diagnoses / Procedures Referred By Contac t Referred To Contact Procedures Breast Imaging Diagnostic Outside Reference Transcribed Order, Provider Referral ID Status Reason Start Date Expiration Date V isits Requested Visits Authorized [id number] Pending Review 10/06/2024 11/05/2025 1 1 Encounter Details Date Type Department Care Team (Late st Contact Info) Description 02/27/2013 Hospital Encounter [facility] [address] [place] [address] Social History Tobacco Use Types Packs/Day Years Used Date Smoking Tobacco: Former Cigarettes 1 22.4 2 - 09/2022 Passive Smoke Exposure: Past Smokeless Tobacco: Never Comments:Off and on Alcohol Use Standard Drinks/Week Comments Not Currently 0 (1 standard drink = 0.6 oz pur e alcohol) AUDIT-C Answer Date Recorded Q1: How often do you have a drink containing alc ohol? Monthly or less 07/29/2024 Q2: How many drinks containi ng alcohol do you have on a typical day when you are drinking? 3 or 4 07/29/2024 Q3: How often do you have si x or more drinks on one occasion? Less than monthly 07/29/2024 Hunger Vital Sign Answer Date Recorded Within the past 12 months, y ou worried that your food would run out before you got the money to buy more. Never true 09/09/19 25 Within the past 12 months, t he food you bought just didn't last and you didn't have money to get more. Never true 09/08/2024 Personal Safety Answer Date Recorded Have you ever been in or are you currently in a harmful physical or emotional relationship or is someone making you feel afraid or unsafe? 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 Monthly or less 07/29/2024 10:09 AM Vicky Jimenez RN Q2: How many drinks containing alcohol do you have on a typical day when you are drinking? 3 or 4 07/29/2024 10:09 AM Vicky Jimenez RN Q3: How often do you have six or more drinks on one occasion? Less than monthly 07/29/2024 10:09 AM Vicky Jimenez RN documented as of this encounter Plan of Treatment Not on file documented as of this encounter Procedures Procedure Name Priority Date/Time Associated Diagnosis Comments BREAST IMAGING MG DIAGNOSTIC OUTSIDE REFERENCE Routine 02/27/2013 12:00 AM DRILLER AND BROACHER documented in this encounter Results * Breast Imaging Diagnostic Outside Reference (02/27/2013 12:00 AM DRILLER AND BROACHER) Impressions [facility] - 10/06/2024 11:29 AM CDT These images are for Reference purposes only and have not been reviewed by [facility]. There will be no report generated by a [facility]iologist. Narrative [facility] - 10/06/2024 11:29 AM CDT EXAMINATION: Images For Reference Purposes Only us Provider Transcribed Order IMG MAMMO PROCEDURES Final Result [facility] documented in this encounter Visit Diagnoses Not on filedocumented in this encounter
--- OUTSIDE RECORDS SUMMARY | 2014-10-14 | XMS_ITS | Encounter Summary ---
Author Organization [facility] Healthcare Address [address] [place] [address] Care Team Providers Care Fitness Center Attendant Name Role Phone Unavailable Primary Care Provider Unavailabl e Reason for Visit * Diagnostic Imaging (Routine) - Pending Review Specialty Diagnoses / Procedures Referred By Contac t Referred To Contact Procedures Breast Imaging Screening Outside Reference Transcribed Order, Provider Referral ID Status Reason Start Date Expiration Date V isits Requested Visits Authorized [id number] Pending Review 10/06/2024 11/05/2025 1 1 Encounter Details Date Type Department Care Team (Late st Contact Info) Description 10/14/2014 Hospital Encounter [facility] [address] [place] [address] Social History Tobacco Use Types Packs/Day Years Used Date Smoking Tobacco: Former Cigarettes 1 22.4 2 001 - 09/2022 Passive Smoke Exposure: Past Smokeless [...] on file 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 Monthly or less 07/29/2024 10:09 AM VALENTÍNT Vicky Culver RN Q2: How many drinks containing alcohol do you have on a typical day when you are drinking? 3 or 4 07/29/2024 10:09 AM Vicky Jimenez RN Q3: How often do you have six or more drinks on one occasion? Less than monthly 07/29/2024 10:09 AM VALENTÍNT Vicky Culver RN documented as of this encounter Plan of Treatment Not on file documented as of this encounter Procedures Procedure Name Priority Date/Time Associated Diagnosis Comments BREAST IMAGING MG SCREENING OUTSIDE REFERENCE Routine 10/14/2014 12:00 AM CDT documented in this encounter Results * Breast Imaging Screening Outside Reference (10/14/2014 12:00 AM CDT) Impressions [facility] - 10/06/2024 11:29 AM CDT These images are for Reference purposes only and have not been reviewed by [facility]. There will be no report generated by a [facility] Radiologist. Narrative [facility] - 10/06/2024 11:29 AM CDT EXAMINATION: Images For Reference Purposes Only us Provider Transcribed Order IMG MAMMO PROCEDURES Final Result [facility] documented in this encounter Visit Diagnoses Not on filedocumented in this encounter
--- OUTSIDE RECORDS SUMMARY | 2023-10-30 06:20 | XMS_ITS ---
Author Organization [facility] Address [address] [place] [address] Care Team Providers Care Keno Dealer Name Role Phone Hector Solis Primary Care Provider Nadja Martinez Unavailable [phone] REASON FOR VISIT follow-up Social History Sex Assigned At : Social History Observation Description Sex Assigned At Female Encounters Encounter Location Date Provider Diagnosis [address] [address] 10/30/2023 Hector Solis Plan Of Treatment No Information Progress Notes * Sahra PARKS JDOB:1980 (44 yo F)Acc No.[id number]:10/30/2023 UNLOCKED PROGRESS NOTE Progress Notes Patient: Sahra BARBOSA Provider: Rajinder Solis :1980 A ge:43 Y S ex:Female Date:10/30/2023 Phone: Address:[address] [place] [address], [address], [id number] Subjective: * Chief Complaints: * 1 . Follow-up. * Medical History: Objective: * Vitals: Assessment: Plan: * Treatment: * * Electronic signature of Paola Solis , [id number] on 12/30/2024 at 03:50 PM CDT Sign off status: Pending * Provider: Rajinder Solis Date: 0 10/30/2023 Generated for Swapnil phillips/Geeta/Craig on: 0 12/30/2024 03:50 PM CDT
--- OUTSIDE RECORDS SUMMARY | 2023-11-05 09:00 | XMS_ITS ---
Author Organization [facility] Address [address] [place] [address] Care Team Providers Care Superior Court Judge Name Role Phone Hector Solis Primary Care Provider Nadja Martinez Unavailable [phone] REASON FOR VISIT Follow up Social History Sex Assigned At : Social History Observation Description Sex Assigned At Female Encounters Encounter Location Date Provider Diagnosis [address] [address] 11/05/2023 Hector Solis Plan Of Treatment No Information Progress Notes * JUAN Sahra JDOB:1980 (44 yo F)Acc No.[id number]:11/05/2023 UNLOCKED PROGRESS NOTE Progress Notes Patient: Sahra BARBOSA Provider: Rajinder Solis :1980 A ge:43 Y S ex:Female Date:11/05/2023 Phone: Address:[address] [place] [address], [address], [id number] Subjective: * Chief Complaints: * 1 . Follow up. * Medical History: Objective: * Vitals: Assessment: Plan: * Treatment: * * Electronic signature of Paola Solis , [id number] on 12/30/2024 at 03:49 PM CDT Sign off status: Pending * Provider: Rajinder Solis Date: 0 11/05/2023 Generated for Swapnil phillips/Geeta/Craig on: 0 12/30/2024 03:49 PM CDT
--- OUTSIDE RECORDS SUMMARY | 2023-11-19 06:40 | XMS_ITS ---
Author Organization [facility] Address [address] [place] [address] Care Team Providers Care Drawing Box Tender Name Role Phone Hector Solis Primary Care Provider [phone] Nadja Martinez Unavailable [phone] REASON FOR VISIT rs frm 11/11;r/s from 11/05/23--follow up Social History Sex Assigned At : Social History Observation Description Sex Assigned At Female Encounters Encounter Location Date Provider Diagnosis [address] [place] [address] 11/19/2023 Hector Solis Plan Of Treatment No Information Progress Notes * Sahra PARKS JDOB:1980 (44 yo F)Acc No.[id number]:11/19/2023 UNLOCKED PROGRESS NOTE Progress Notes Patient: Sahra BARBOSA Provider: Rajinder Solis :1980 A ge:43 Y S ex:Female Date:11/19/2023 Phone: Address:[address] [place] [address], [address], [id number] Subjective: * Chief Complaints: * 1 . Rs frm 11/11;r/s from 11/05/23--follow up. * Medical History: Objective: * Vitals: Assessment: Plan: * Treatment: * * Electronic signature of Paola Solis , [id number] on 12/30/2024 at 03:49 PM CDT Sign off status: Pending * Provider: Rajinder Solis Date: 0 11/19/2023 Generated for Swapnil ng/Famyrtle/eTransmitting on: 0 12/30/2024 03:49 PM CDT
--- OUTSIDE RECORDS SUMMARY | 2024-12-30 15:49 | XMS_ITS | Patient Health Record ---
[facility] Organization [facility] Address [address] [place] [address] Care Team Providers Care Expedition Supervisor Name Role Phone Hector Solis Primary Care Provider [phone] Nadja Martinez Unavailable [phone] Allergies Allergen (clinical drug ingredient) Drug/Non Drug Allergy documented on EMR Reaction Allergy Type Onset Date Status morphine Morphine Unknown Drug Allergy Active Reason For Referral No Information Medications Medication SIG (Take, Route, Frequency, Duration) Notes Start Date End Date Status Ibuprofen 800 MG 1 tablet with food o r milk as needed Orally every 8 hrs Active lamoTRIgine 200 MG 1/2 tablet Orally on ce a day Active Naltrexone HCl 50 MG Oral; Duration: 30 Days Not-Taking Ketoconazole 2 % External; Duration: 30 Days Not-Taking cloNIDine HCl 0.3 MG 1 tablet Orally Onc e a day; Duration: 30 days Active Topiramate 100 MG 1 tablet Orally Once a day; Duration: 30 days Active ALPRAZolam 1 MG 1 tablet Oral once a day; Duration: 10 days As needed anxiety Active Levothyroxine Sodium 175 MCG Oral; Duration: 7 Days Activ e Venlafaxine HCl ER 150 MG 1 capsule with food Orally Once a day; Duration: 30 days 08/16/2023 Active Xarelto 20 MG 1 tablet with food Orally Once a day Active Focalin XR 20 MG Oral; Duration: 30 Days Not-Taking Ondansetron HCl 4 MG 1 tablet Orally Onc e a day Not-Taking buPROPion HCl ER (XL) 300 MG 1 tablet in the morning Oral Once a day; Duration: 30 days Active Clopidogrel Bisulfate 75 MG Oral; Duration: 30 Days Active Minoxidil 2 % 1 [...] W/U Status Risk Notes Problem Tobacco user (720775127) Nicotine dependence, unspecified, uncomplicated (F17.200) Active confirmed Problem Posttraumatic stress disorder (70125063) PTSD (post-traumatic stress disorder) (F43.10) Active confirmed Problem Chronic pain (02774783) Chronic pain (G89.29) Active confirmed Problem Generalized anxiety disorder (46261292) WILLAM (generalized anxiety disorder) (F41.1) Active confirmed Problem Moderate recurrent major depression (55424220) MDD (major depressive disorder), recurrent episode, moderate (F33.1) Active confirmed Problem Hypothyroidism (62559557) Hypothyroidism (acquired) (E03.9) Active confirmed Problem Obsessive-compulsi ve disorder (456688742) OCD (obsessive compulsive disorder) (F42.9) Active confirmed Problem Hypercoagulable state (80222665) Hypercoagulable state (D68.59) Active confirmed Plan Of Treatment No Information Insurance Providers Payer Name Payer Address Payer Phone Subscriber Number Group Number Insured Name Patient Relationship to Insured Coverage Start Date Coverage End Date [facility] Attn Claims Department [address] [place] [address] [id number] Sahra Parks Self - patient is the insured 2 [employer] [address] [place] [phone] [id number] Sahra Parks Self - patient is the insured 1 2 [employer] [address] [place] [address] [id number] CharlySahra Self - patient is the insured 1 2 [employer] [facility] Claims Department [address] [facility] [place] [address] [id number] Sahra Parks Self - patient is the insured 2 Medical (General) History Medical History History ICD Code hypothyroidism. Depressive disorder F32.9 Psychosis, unspecified psychosis type F2 9 deep vein thrombosis Schizoaffective disorder, bipolar type F 25.0 Surgical History Surgery Date(Month/Year) D and C 2001 Hernia 2005 DVT 2022 Hospitalization History Reason Date(Month/Year)
--- OUTSIDE RECORDS SUMMARY | 2024-12-30 15:49 | XMS_ITS | Clinical Summary ---
Author Organization [facility] Address [address] [place] [address] Phone Care Team Providers Care Swimming Pool Serviceperson Name Role Phone Soila Santos MD Unavailable Echo Pollard MD Primary Care Provider [phone] Allergies Active Allergy Reactions Criticality Noted Date [...] differently: 175 mcgOral DAILY, Reported on 07/17/2024 Immunizations Immunization Administration Dates Next Due Hpv, [...] 1:00 PM CDT Height 166.4 cm (5' 5.5) 07/17/2024 1:00 PM CDT Body Mass Index [...] Starting/Frequency of Mammograms 2021 Influenza Immunization (#1) 2024 01/16/2011 SARS-COV-2 Immunization (3 - 2024- season) 2024 05/06/2021, 12/13/2020 Respiratory Syncytial Virus (RSV) Immunization (Adult) (1 - 1-dose 75+ series) 2056 Human Papillomavirus (HPV) Immunization Completed 02/28/2009, 05/07/2007, 01/21/2007, Additional history exists DTaP/Tdap/Td Immunization Discontinued 04/22/2009 Hepatitis C Virus [...] Insurance MEDICAID [employer] Care Teams Swimming Pool Serviceperson Relationship Specialty Start Date End Date ArtEcho Tejada MD [address] [place] [address] PCP - General Primary Care 01/01/23 Soila Santos MD [address] [address] Consulting Physician Endocrinology 12/17/22
--- OUTSIDE RECORDS SUMMARY | 2024-12-30 15:49 | XMS_ITS | Clinical Summary ---
Author Organization [facility] Address [address] [place] [address] Care Team Providers Care Cigarette Filter Inspector Name Role Phone Echo Pollard MD Primary Care Provider [phone] David Alicea MD Unavailable Source Comments [facility],non-owned Affiliates and Associated Physician Practices is amultiple site organization consisting of ambulatory clinics and hospital sitesin [place], [place], [place] and [place]. This disclosure is being madepursuant to the Care Everywhere program and may not contain all information available regarding this patient. Last updated 18.[facility] Allergies Active Allergy Reactions Criticality Noted Date [...] Rash,Nausea and/or Vomiting Low 07/06/2010 Medications * This document contains information received from the source organization and may not represent a complete record from that organization. * Be aware that medications may not be up to date on this document. Alwaysverify current medications with the patient. levothyroxine (SYNTHROID) 125 MCG tablet Take 125 mcg by mouth daily before breakfast. Dose increased 06/19/10 per pharmacy refill records Active ondansetron (ZOFRAN) 4 MG tablet Take 4 mg by mouth every 8 hours as needed. 1 Active Vit-Fe Fumarate-FA ( VITAMIN) 28-0.8 MG tablet Take 1 Tab by mouth daily. Active calcium carbonate (TUMS) 500 MG chew tabletIndicati ons:Heartburn Take 1 Tab by mouth as needed. Indications: Heartburn 1 Active docusate sodium (COLACE) 100 MG capsule Take 1 Cap by mouth 2 times daily as needed for Constipation. 60 Cap 5 1 Active polyethylene glycol 3350 (GLYCOLAX) powder Take 17 g by mouth once daily as needed for Constipation. 119 g 3 1 Active ibuprofen (MOTRIN) 600 MG tablet Take 1 Tab by mouth every 4 hours as needed for Pain. 120 1 1 Active FLUoxetine (PROZAC) 20 MG capsule Take 1 (one) capsule by mouth once daily Take one capsule by mouth once daily at bedtime. Take together with olanzapine. 30 capsule 1 Active OLANZapine (ZYPREXA) 5 MG tablet Take 1 (one) tablet by mouth once daily Take one tablet by mouth once daily at bedtime. Take together with fluoxetine 20 mg capsule. 30 tablet 1 Active ziprasidone (Geodon) 40 MG capsule Take 1 (one) capsule by mouth 3 Active venlafaxine (Effexor) 75 MG tablet 4 Active topiramate (Topamax) 100 MG tablet 4 Active rizatriptan (Maxalt) 10 MG tablet 3 Active rivaroxaban (Xarelto) 20 MG tablet Take 1 (one) tablet by mouth 3 Active promethazine (Phenergan) 25 MG tablet 3 Active ondansetron, disintegrating , (Zofran ODT) 8 MG tablet Active nicotine (Nicoderm CQ) 14 MG/24HR patch Apply 1 patch every day by transdermal route for 14 days. Active Mibelas 24 Fe 1-20 MG-MCG(24) tablet 3 Active naltrexone (Revia) 50 MG tablet 4 Active Multiple Vitamin (Daily-Maria Guadalupe) TABS 3 Active montelukast (Singulair) 10 MG tablet 3 Active metoclopramide (Reglan) 10 MG tablet 4 Active meloxicam (Mobic) 7.5 MG tablet TK 1 T PO WITH FOOD QD Active medroxyPROGEST ERone (Depo-Provera) 150 MG/ML prefilled syringe 3 Active Linzess 145 MCG capsule 3 Active lidocaine (Lidoderm) 5 % patch 3 Active levothyroxine (Synthroid) 150 MCG tablet Take 1 (one) tablet by mouth once daily 4 Active levothyroxine (Synthroid) 175 MCG tablet 4 Active levonorgestrel (Plan B One Step) 1.5 MG tablet Take 1 (one) tablet by mouth as directed 3 Active lamoTRIgine (LaMICtal) 25 MG tablet 4 Active ketoconazole (Nizoral) 2 % shampoo 3 Active hydrOXYzine pamoate (Vistaril) 50 MG capsule 4 Active hydrOXYzine HCl (Atarax) 50 MG tablet Take 1 (one) tablet by mouth 3 Active HYDROcodone-ac etaminophen (Orwell) 5-325 MG tablet 4 Active fluticasone propionate (Flonase) 50 MCG/ACT nasal spray 4 Active fluconazole (Diflucan) 150 MG tablet 3 Active vitamin D, ergocalciferol , (Drisdol) 1.25 MG (24796 UT) capsule 4 Active enoxaparin (Lovenox) 60 MG/0.6ML injection 3 Active diazePAM (Valium) 5 MG tablet 3 Active Focalin XR 20 MG capsule 3 Active dexAMETHasone (Decadron) 6 MG tablet 3 Active cyanocobalamin (Vitamin B-12) injection Inject 1 mL every month by intramuscular route. 3 Active clopidogrel (plaVIX) 75 MG tablet Take 1 (one) tablet by mouth 3 Active cloNIDine (Catapres) 0.2 MG tablet 4 Active Allergy Relief Cetirizine 10 MG tablet 3 Active Vraylar 1.5 MG capsule 3 Active buPROPion SR 12hr (Wellbutrin-SR ) 150 MG tablet 4 Active butalbital-liza taminophen-caf feine (Fioricet) 50-325-40 MG tablet TK 1-2 TS PO Q 4-6 HOURS PRN Active ALPRAZolam (Xanax) 1 MG tablet 4 Active albuterol HFA (Proventil; Ventolin; Proair) 108 (90 Base) MCG/ACT inhaler 3 Active acetaminophen- codeine (Tylenol #3) 300-30 MG tablet TK 1 TO 2 TS PO Q 4 TO 6 H PRN Active Active Problems Patient Care Coordination No te Formatting of this note migh t be different from the original. Transfer of Care (MD Hemanth); Co Management HALF-WAY Problem Noted Date Diagnosed Date MDD (major [...] ?triploidy with Dr. Alejandro, D&C done at [facility]; the other due to low [...] Overview (07/06/2010): With mesh Dr. 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 Gender Identity Not on file Sexual Orientation Not on file Last Filed Vital Signs Vital Sign Reading Time Taken Comments Blood Pressure 109/80 05/14/2023 1:41 PM SKINNING MACHINE FEEDER Pulse 86 05/14/2023 1:41 PM SKINNING MACHINE FEEDER Temperature 36.5 C (97.7 F) 12/05/2021 8:23 PM CDT Respiratory Rate 16 05/14/2023 1:41 PM SKINNING MACHINE FEEDER Oxygen Saturation 94% 12/05/2021 9:00 PM CDT Inhaled Oxygen Concentration 21% 01/15/2011 1 2:06 AM CDT Weight 62.6 kg (138 lb) 05/14/2023 1:41 PM SKINNING MACHINE FEEDER Height 160 cm (5' 3) 05/14/2023 1:41 PM SKINNING MACHINE FEEDER Body Mass Index 24.45 05/14/2023 1:41 PM SKINNING MACHINE FEEDER Plan of Treatment Health Maintenance Due Date Last Done Comments LIPID TESTING 1981 MAMMOGRAM 1981 HEPATITIS C SCREENING 08/14/1999 HEPATITIS B VACCINE (1 of 3 - 19+ 3-dose series) 2000 PNEUMOCOCCAL VACCINE (1 of 2 - PCV) 2000 HPV VACCINE (2 - 3-dose SCDM series) 03/28/2009 02/28/2009 DTAP/TDAP/TD VACCINES (2 - T d or Tdap) 04/22/2019 04/22/2009 DEPRESSION SCREENING 04/22/2024 COVID-19 VACCINE (3 - 2024-2 6 season) 2024 05/06/2021, 12/13/2020 INFLUENZA VACCINE (#1) 2024 01/16/2011 PAP SMEAR 09/02/2026 09/03/2023, 09/03/2023 ZOSTER VACCINE (1 of 2) 08/19/2031 [...] patient's age to complete this topic Insurance [facility] Advance Directives * FULL RESUSCITATION (Latest Code Status on File) Date Activated Date Inactivated Comments 01/12/2011 10:41 PM 01/17/2011 1:49 AM Care Teams Cigarette Filter Inspector Relationship Specialty Start Date End Date Echo Pollard MD [facility]. [address] [place] [address] PCP - General Family Medicine 05/14/23 David Alicea MD [address] [place] [id number] Neurology 05/14/23
--- OUTSIDE RECORDS SUMMARY | 2024-12-30 15:49 | XMS_ITS | Encounter Summary ---
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 [facility] [address] [place] [address] Surgeon Medical Oncology 11/17/24 documented as of this encounter
--- OUTSIDE RECORDS SUMMARY | 2024-12-30 15:49 | XMS_ITS ---
Author Organization [facility] Address [address] [place] [address] Care Team Providers Care Affirmative Action Specialist Name Role Phone Pierre Cisneros Primary Care Provider + [place], Becky Shirley MD Unavailable [phone] Active Problems Problem Noted Date Diagnosed Date Chest pain 08/06/2024 Assessment & Plan (08/07/2024 7:45 AM CDT): Reports chest pain at rest and with activity for about a month --Already on anticoagulation --TTE normal, no heart strain Assessment & Plan (08/06/2024 8:52 PM CDT): Reports chest pain at rest and with activity for about a month --Already on anticoagulation --TTE normal, no heart strain Hypercoagulable state 07/27/2024 Fibromyalgia 07/27/2024 Assessment & Plan (08/07/2024 7:45 AM CDT): Resume home nortriptyline, Flexeril Assessment & Plan (08/06/2024 8:52 PM CDT): Resume home nortriptyline, Flexeril Assessment & Plan (08/05/2024 3:24 PM CDT): Resume home nortriptyline, Flexeril Generalized anxiety disorder 07/27/2024 Pain of left lower leg 07/20/2024 Presence of stent in artery 07/20/2024 Iron deficiency anemia 07/14/2024 Obsessive-compulsive disorder 07/08/2024 Posttraumatic stress disorder 07/08/2024 Deviated nasal septum 06/23/2024 Restless legs 05/04/2024 Assessment & Plan (08/07/2024 7:45 AM CDT): Resume home ropinirole Assessment & Plan (08/06/2024 8:52 PM CDT): Resume home ropinirole Assessment & Plan (08/05/2024 3:24 PM CDT): Resume home ropinirole Dysfunction of both eustachian tubes 05/03/2024 Dysfunction of left eustachian tube 05/03/2024 Hypertrophy of nasal turbinates 05/03/2024 Purpura 04/21/2024 Overview (07/08/2024): from the neck down Acute sinusitis 12/31/2023 Hyperlipidemia 12/06/2023 Insomnia 12/06/2023 Overactive bladder 12/06/2023 Painful urging to urinate 12/06/2023 Acute otitis media 12/06/2023 May-Thurner syndrome 11/14/2023 Assessment & Plan (08/07/2024 3:47 PM CDT): Initially diagnosed with DVT in 10/12/2022 s/p mechanical thrombectomy of left CIV through CF we and left CIV stent for May-Thurner lesion. She remained on anticoagulation for 6 months until 03/2023. In 09/2023, she was found to have increased clot burden within the left CIV/EIV stent on CT, therefore underwent venogram in 10/2023 which showed in stent stenosis of left common iliac stent status post placement of smaller stent inside the existing stent. And it was decided to keep the patient on anticoagulation for lifetime. Patient recently had her Xarelto for sinus surgery; followed by which she developed worsening left leg pain and swelling and went to [facility], was found to have left [employer] ANALYST, PFA, femoral DVT on Doppler ultrasound on 07/18/2024. She underwent venogram, thrombectomy and realigning of the stents today as per the brief post procedure note, and admitted for observation - Post procedure, some hematuria noted, however as per IR it is expected - Started Lovenox therapeutic dose with 1st dose 4/16 as per IR, continue Lovenox for now. Discuss anticoagulation for discharge. Was taking Xarelto but was on hold for procedure, can likely resume Xarelto - Loaded with Plavix x1 - Anticoagulation difficult due to history of menorrhagia (see uterine leiomyoma) --Consulted gyneology and started 5mg norethindrone daily. Patient expressed anxiety about taking norethindone, can discuss further with outpatient gynecology Assessment & Plan (08/06/2024 8:52 PM CDT): Initially diagnosed with DVT in 10/12/2022 s/p mechanical thrombectomy of left CIV through CF we and left CIV stent for May-Thurner lesion. She remained on anticoagulation for 6 months until 03/2023. In 09/2023, she was found to have increased clot burden within the left CIV/EIV stent on CT, therefore underwent venogram in 10/2023 which showed in stent stenosis of left common iliac stent status post placement of smaller stent inside the existing stent. And it was decided to keep the patient on anticoagulation for lifetime. Patient recently had her Xarelto for sinus surgery; followed by which she developed worsening left leg pain and swelling and went to [facility], was found to have left [employer] A[employer]LYST, PFA, femoral DVT on Doppler ultrasound on 07/18/2024. She underwent venogram, thrombectomy and realigning of the stents today as per the brief post procedure note, and admitted for observation - Post procedure, some hematuria noted, however as per IR it is expected - Started Lovenox therapeutic dose with 1st dose 4/16 as per IR, continue Lovenox for now. Discuss anticoagulation for discharge. Was taking Xarelto but was on hold for procedure, can likely resume Xarelto - Loaded with Plavix x1 - Anticoagulation difficult due to history of menorrhagia (see uterine leiomyoma) --Consulted gyneology and started 5mg norethindrone daily. Patient concerned about a high dose and would like to take half the dose. Will discuss with them tomorrow Assessment & Plan (08/05/2024 3:24 PM CDT): Initially diagnosed with DVT in 10/12/2022 s/p mechanical thrombectomy of left CIV through CF we and left CIV stent for May-Thurner lesion. She remained on anticoagulation for 6 months until 03/2023. In 09/2023, she was found to have increased clot burden within the left CIV/EIV stent on CT, therefore underwent venogram in 10/2023 which showed in stent stenosis of left common iliac stent status post placement of smaller stent inside the existing stent. And it was decided to keep the patient on anticoagulation for lifetime. Patient recently had her Xarelto for sinus surgery; followed by which she developed worsening left leg pain and swelling and went to [facility], was found to have left [employer] ANALYST, PFA, femoral DVT on Doppler ultrasound on 07/18/2024. She underwent venogram, thrombectomy and realigning of the stents today as per the brief post procedure note, and admitted for observation - Post procedure, some hematuria noted, however as per IR it is expected, continue to monitor - Start Lovenox therapeutic dose with 1st dose tonight as per IR - Loaded with Plavix x1 - Anticoagulation difficult due to history of menorrhagia (see uterine leiomyoma) Assessment & Plan (11/15/2023 1:26 PM CDT): S/p left iliac venogram, right iliac venogram and left common iliac artery stenting with Interventional Radiology She tolerated the procedure She was started on Plavix + xarelto by IR Chronic low back pain 11/11/2023 Sinusitis 10/28/2023 Blood coagulation disorder 10/15/2023 Leg pain 10/15/2023 Assessment & Plan (08/07/2024 7:45 AM CDT): Bilateral leg pain, has been using a rollator at home 2/2 pain --PT/OT consult Assessment & Plan (08/06/2024 8:52 PM CDT): Bilateral leg pain, has been using a rollator at home 2/ pain --PT/OT consult Arthralgia of both knees 09/30/2023 Loss of hair 09/30/2023 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 08/15/2023 Dysuria 08/14/2023 Positive antinuclear antibody 05/29/2023 Antinuclear antibody (CIARRA) positive 05/29/2023 COVID-19 04/03/2023 Chronic abdominal pain 02/25/2023 Seborrheic dermatitis of scalp 02/25/2023 Seizure disorder 02/25/2023 Assessment & Plan (11/14/2023 6:59 PM CDT): Continue lamotrigine and Lyrica Hypothyroidism 01/25/2023 Assessment & Plan (11/14/2023 6:59 PM CDT): Continue Synthroid Pain in pelvis 01/25/2023 Low back pain 12/17/2022 Cyst of ovary 11/29/2022 Essential hypertension 11/29/2022 Assessment & Plan (08/07/2024 7:45 AM CDT): Resumed home clonidine Assessment & Plan (08/06/2024 8:52 PM CDT): Resumed home clonidine Assessment & Plan (08/05/2024 3:24 PM CDT): Resume home clonidine Galactorrhea not associated with childbirth 11/20 Headache 11/29/2022 Low grade squamous intraepit helial lesion (LGSIL) on cervicovaginal cytologic smear 11/29/2022 Malaise and fatigue 11/29/2022 Cervical intraepithelial neoplasia 11/29/2022 Multinodular goiter 11/29/2022 Neoplasm of bone 11/29/2022 Flank pain 11/29/2022 Pain of breast 11/29/2022 Uterine leiomyoma 11/29/2022 Assessment & Plan (08/07/2024 7:45 AM CDT): Consulted OBGYN as per IR request, started Aygestin. Patient reports concern for blood clots as the reason she doesn't want to take depo. Monitor hemoglobin Assessment & Plan (08/06/2024 8:52 PM CDT): Consulted OBGYN as per IR request, started Aygestin. Patient reports concern for blood clots as the reason she doesn't want to take depo. Monitor hemoglobin Assessment & Plan (08/05/2024 3:24 PM CDT): Consulted OBGYN as per IR request, awaiting recommendations Monitor hemoglobin Nicotine dependence 11/27/2022 Chronic idiopathic constipation 11/26/2022 Nondiabetic gastroparesis 11/26/2022 Nausea 11/19/2022 Deep vein thrombosis (DVT) 11/16/2022 Deep venous thrombosis 11/16/2022 Chronic ethmoidal sinusitis 11/15/2022 Chronic maxillary sinusitis 11/15/2022 Lupus anticoagulant disorder 10/30/2022 Mixed anxiety and depressive disorder 10/30/2022 Overview (07/27/2024): severe- in retirement for mental breakdown Acute embolism and thrombosi s of unspecified deep veins of left lower extremity 10/18/2022 Deep vein thrombosis (DVT) of left lower extremi ty 10/15/2022 Assessment & Plan (11/14/2023 6:58 PM CDT): On Xarelto at home Migraine 09/12/2022 Assessment & Plan (08/07/2024 7:45 AM CDT): Resume home propranolol Compazine/bendryl/saline bolus Also drinks coffee usually Assessment & Plan (08/06/2024 8:52 PM CDT): Resume home propranolol Compazine/bendryl/saline bolus Also drinks coffee usually Assessment & Plan (08/05/2024 3:24 PM CDT): Resume home propranolol Bipolar disorder 09/07/2022 Cobalamin deficiency 09/07/2022 Cigarette [...] major depression 06/13/2022 Systemic lupus erythematosus 06/13/2022 Bipolar affective disorder, current episode depr essed 06/13/2022 Mixed anxiety and depressive disorder 01/24/2021 Assessment & Plan (08/07/2024 7:45 AM CDT): # ADHD # Unspecified psych disorder Resume home Abilify, Wellbutrin, Adderall, nortriptyline Assessment & Plan (08/06/2024 8:52 PM CDT): # ADHD # Unspecified psych disorder Resume home Abilify, Wellbutrin, Adderall, nortriptyline Assessment & Plan (08/05/2024 3:24 PM CDT): # ADHD # Unspecified psych disorder Resume home Abilify, Wellbutrin, Adderall, nortriptyline Assessment & Plan (11/14/2023 6:59 PM CDT): [...] No medications; last seizure 2.5 years ago Assessment & Plan (08/07/2024 7:45 AM CDT): Resume home topiramate Assessment & Plan (08/06/2024 8:52 PM CDT): Resume home topiramate Assessment & Plan (08/05/2024 3:24 PM CDT): Resume home topiramate Asthma 07/06/2010 Overview (11/01/2020): Remote, no sxs Encounter for health-related screening 1 Overview (11/01/2020): NT normal. Second part of screen negative. IMO update 07 21 2017 SAB (spontaneous ) 07/06/2010 Overview (11/01/2020): H/o 2 sabs (one ?triploidy with Dr. Alejandro, D&C done at [facility]; the other due to low hormone so is on hormone pills now ?progesterone) 1 TAB (took pills) Received records from Dr. Alejandro from 11/1999. U/S revealed gestational sac without pole. D&C pathology revealed immature chorionic villi and decidua. No record of chromosomal studies received from any [facility]. Status post umbilical hernia repair, follow-up e xam 07/06/2010 Overview (11/01/2020): With mesh Dr. Flynn at [facility] Tobacco use disorder complic ating [...] 1.59 1.90 3.01 Continue synthroid 125mcg daily Assessment & Plan (08/07/2024 7:45 AM CDT): Resume home levothyroxine Assessment & Plan (08/06/2024 8:52 PM CDT): Resume home levothyroxine Assessment & Plan (08/05/2024 3:24 PM CDT): Resume home levothyroxine History of delivery, currently 06/22/2010 Overview (11/01/2020): [...] Plans iron dextran (INFED) infusion* Plan Start Date:07/31/2024 Plan Provider:Anna Rizzo MD Linked Problems Iron deficiency anemia, unsp ecified iron deficiency anemia type Treatment Medications No medications scheduled. Past Treatment and Therapy Plans No past plan information found. Lifetime Dose Tracking * Chemical Lifetime Dose Automatic Entry Manual Entr y Fluoro Time 48.9 minutes 48.9 minutes 0 minutes Air kerma at the reference point (Ka,r) 617 mGy 6 17 mGy 0 mGy DLP 3,261 mGycm 3,261 mGycm 0 mGycm
--- OUTSIDE RECORDS SUMMARY | 2024-12-30 15:50 | XMS_ITS | Clinical Summary ---
Author Organization [facility], formerly [facility] Address [address] [place] [address] Care Team Providers Care Scrap Sawyer Name Role Phone Pierre Cisneros Primary Care Provider + [place], Becky Shirley MD Unavailable [phone] Allergies Active Allergy Reactions Criticality Noted Date Comments Ciprofloxacin Nausea & Vomiting Low Latex Rash Medium 01/12/2011 Morphine Anaphylaxis,Swelling High 07/06/2010 Throat swelling Sulfa (Sulfonamide Antibiotics) Nausea And Vomiting,Rash Medium 07/06/2010 Medications dextroamphetamine- amphetamine XR (ADDERALL XR) 30 mg 24 hr capsule Take 1 capsule (30 mg total) by mouth every morning 06/04/19 24 Active tretinoin (RETIN-A) 0.1 % creamIndications:A cne Vulgaris Apply topically nightly 10/01/19 24 Active cloNIDine (CATAPRES) 0.3 mg tablet Take 1 tablet (0.3 mg total) by mouth nightly Hold if systolic BP <110 11/15/19 24 Active topiramate (TOPAMAX) 100 mg tabletIndications: Essential Tremor,Migraine Prevention,seizure s Take 1 tablet (100 mg total) by mouth 2 (two) times a day 11/11/19 24 Active cyclobenzaprine (FLEXERIL) 10 mg tablet Take 1 tablet (10 mg total) by mouth every morning 02/11/20 24 Active cycloSPORINE (RESTASIS) 0.05 % ophthalmic emulsion Administer 1 drop into both eyes 2 (two) times a day Active loteprednol (LOTEMAX) 0.5 % ophthalmic suspensionIndicati ons:Allergic Conjunctivitis Administer 1 drop into both eyes as needed Active propranoloL (INDERAL) 20 mg tabletIndications: Essential Tremor,anxiety Take 0.5 tablets (10 mg total) by mouth daily after lunch 0.5 tablet Active ARIPiprazole (ABILIFY) 2 mg tablet Take 1 tablet (2 mg total) by mouth nightly at bedtime 07/21/19 25 Active levothyroxine (SYNTHROID) 200 mcg tablet Take 1 tablet (200 mcg total) by mouth nightly Active buPROPion XL (WELLBUTRIN XL) 150 mg 24 hr tablet Take 1 tablet (150 mg total) by mouth nightly Active acetaminophen (TYLENOL) 500 mg tabletIndications: Pain Take 1 tablet (500 mg total) by mouth every 6 (six) hours as needed for pain Active fluticasone propionate (FLONASE) 50 mcg/actuation nasal spray Administer 1 spray into each nostril as needed for allergies (spring) Active ALPRAZolam (XANAX) 0.5 mg tablet Take 1 tablet (0.5 mg total) by mouth 3 (three) times a day as needed for anxiety 07/10/19 25 Active multivitamin tabletIndications: Vitamin Deficiency Prevention Take 1 tablet by mouth nightly Active cyanocobalamin (Vitamin B-12) 1,000 mcg sublingual tablet Take 1 tablet (1,000 mcg total) by mouth as needed Active rOPINIRole (REQUIP) 0.5 mg tablet Take 3 tablets (1.5 mg total) by mouth nightly Active clopidogreL (PLAVIX) 75 mg tablet Take 1 tablet (75 mg total) by mouth daily 30 tablet 08/09/19 25 026 Active norethindrone (AYGESTIN) 5 mg tablet Take 1 tablet (5 mg total) by mouth daily 30 tablet 08/09/19 25 Active acetaminophen-code ine (TYLENOL with CODEINE #3) 300-30 mg per tablet Take 1 tablet by mouth 2 (two) times a day 09/07/19 25 Active amitriptyline (ELAVIL) 25 mg tablet Take 1 tablet (25 mg total) by mouth nightly Active ofloxacin (OCUFLOX) 0.3 % ophthalmic solution Administer 1 drop into both eyes 4 (four) times a day 09/05/19 25 Active ulipristaL (PABLO) 30 mg tabletIndications: Postcoital Contraception Take 1 tablet (30 mg total) by mouth once for 1 dose 1 tablet 09/29/19 25 Active levonorgestreL (PLAN B ONE-STEP) tabletIndications: Postcoital Contraception Take 1 tablet (1.5 mg total) by mouth once for 1 dose 1 tablet 09/29/19 25 Active rivaroxaban (XARELTO) 20 mg tablet Take 1 tablet (20 mg total) by mouth daily 30 tablet 2 12/05/19 25 Active enoxaparin (LOVENOX) 60 mg/0.6 mL syringe Inject 0.6 mL (60 mg total) under the skin every 12 (twelve) hours 36 mL 1 10/17/19 25 025 Discontin ued(Other ) Active Problems Problem Noted Date Diagnosed Date [...] leg pain and swelling and went to [facility], was found to have left WELL LOGGING CAPTAIN, PFA, femoral DVT on Doppler ultrasound on [...] leg pain and swelling and went to [facility], was found to have left WELL LOGGING CAPTAIN, PFA, femoral DVT on Doppler ultrasound on [...] leg pain and swelling and went to [facility], was found to have left WELL LOGGING CAPTAIN, PFA, femoral DVT on Doppler ultrasound on [...] rollator at home 2/2 pain --PT/OT consult Arthralgia of both knees [...] depressive disorder 10/30/2022 Overview (07/27/2024): severe- in half-way for mental breakdown Acute embolism and thrombosi [...] ?triploidy with Dr. Alejandro, D&C done at [facility]; the other due to low hormone so is on hormone pills now ?progesterone) 1 TAB (took pills) Received records from Dr. Alejandro from 11/1999. U/S revealed gestational sac without pole. D&C pathology revealed immature chorionic villi and decidua. No record of chromosomal studies received from any [facility]. Status post umbilical hernia repair, follow-up e xam 07/06/2010 Overview (11/01/2020): With mesh Dr. Flynn at [facility] Tobacco use disorder complic ating , childbirth, [...] Encounters Date Type Department Care Team Description 12/04/2024 Telephone [facility] Radiology 1 [place] [address] Becky Mtz, RN 12/02/2024 Telephone [facility] Radiology 1 [place] [address] Becky Mtz, RN 11/25/2024 Telephone [facility] Radiology 1 [place] [address] Becky Mtz, RN 11/18/2024 [facility] Radiology 1 [place] [address] Becky Mtz, RN 11/17/2024 Telephone [facility] Oncology [address] Floor 5 [place] [id number] Isaura Brook E. 11/13/2024 Telephone [facility] Radiology, Interventional Radiology [address] [place] [id number] Becky Olivo, RN Appointment 11/02/2024 2:30 PM CDT - 11/02/2024 11:59 PM CDT Hospital Encounter [facility] ([facility]) [address] [place] [id number] Abnormal mammogram Discharge Disposition: Discharge to home or self care 11/02/2024 2:29 PM CDT - 11/02/2024 11:59 PM CDT Hospital Encounter [facility] ([facility]) [address] [place] [phone] Abnormal mammogram Discharge Disposition: Discharge to home or self care 10/29/2024 Telephone [facility] Radiology 1 [place] [address] Becky Mtz, RN 10/21/2024 Telephone [facility] Radiology 1 [place] [address] Becky Mtz, RN 10/16/2024 Orders Only [facility] Radiology 1 [place] [address] Becky Mtz, RN 10/16/2024 Telephone [facility] Radiology 1 [place] [address] Becky Mtz, RN 10/15/2024 Telephone [facility] Radiology 1 [place] [address] Becky Mtz, RN 10/13/2024 Orders Only [facility] ([facility]) [address] [place] [address] Zach Abernathy MD 10/07/2024 12:52 PM CDT - 10/07/2024 11:59 PM CDT Hospital Encounter [facility] [place] ([facility]) [address] [place] [address] Healthcare maintenance Discharge Disposition: Discharge to home or self care 10/06/2024 Orders Only [facility] [place] [facility] ([facility]) [address] [place] [address] Zach Abernathy MD 10/01/2024 Telephone [facility] Radiology 1 [place] [address] Becky Mtz RN from Last 3 Months Immunizations Immunization Administration Dates Next Due HPV, Unspecified 02/28/2009,05/07/2007, 7,10/02/2006 Influenza, Unspecified 01/16/2011 PPD TEST 08/08/2022,07/25/2022,06/19/2022 Tdap 04/22/2009 Surgical History Surgery Date Site/Laterality Comments HERNIA REPAIR 04/22/2008 - 04/21/2009 SINUS SURGERY 01/20/2023 - 02/19/2023 deviated septum ANGIOPLASTY / STENTING FEMORAL 09/20/2022 - 10/19/2022 Left LLE ANGIOPLASTY / STENTING FEMORAL 10/21/2023 - 11/20/2023 Left redone DILATION AND CURETTAGE OF UTERUS Medical History Medical History Date Comments Cellulitis Cellulitis - (Ad ded by TW Conv) Motion sickness PONV (postoperative nausea and vomiting) D&C under [place] Cervical cancer (HCC) Family History Medical History Relation Name Comments Prostate cancer Maternal Grandfather Breast cancer Paternal Grandmother Ovarian cancer Sister Anesthesia problems Neg Hx Relation Name Status Comments Maternal Grandfather Paternal Grandmother Sister Social History Tobacco Use Types Packs/Day Years [...] on file Legal Sex Female 7:09 AM [employer]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 Gender Identity Female 10/24/2023 9:52 AM [...] Sign Reading Time Taken Comments Blood Pressure 114/82 09/08/2024 1:30 PM CDT Pulse 102 09/08/2024 1:30 PM CDT Temperature 36.3 C (97.3 F) 08/07/2024 6:01 AM CDT Respiratory Rate 18 09/08/2024 1:30 PM CDT Oxygen Saturation 100% 09/08/2024 1:30 PM CDT Inhaled Oxygen Concentration - - Weight 63.5 kg (140 lb) 10/07/2024 1:03 PM CDT Height 167.6 cm (5' 6) 10/07/2024 1:03 PM CDT Body Mass Index 22.6 10/07/2024 1:03 PM CDT Plan of Treatment Health Maintenance Due Date Last Done Comments Depression Screening 1980 Hepatitis C Screening 1980 Varicella Vaccines (1 of 2 - 13+ 2-dose series) 1994 Hepatitis B Screening 08/19/1999 Regular Well Visit/Exam 18-64 08/19/1999 Pneumococcal vaccine <65 (1 of 2 - PCV) 2000 DTaP/Tdap/Td Vaccine (2 - Td or Tdap) 04/22/2019 04/22/2009 Cervical Cancer Screening 10/18/2023 10/17/2022 Covid-19 Vaccine (3 - 2024-2 6 season) 2024 05/06/2021, 12/13/2020 Influenza Vaccine (#1) 2024 01/16/2011 Breast Cancer Screening-Mammogram 10/07/2025 10/07/2024, 10/22/2023, 10/22/2023, Additional history exists HPV Vaccines Completed 02/28/2009, 04/22, 01/21/2007, Additional history exists Medical Devices Implanted Type Area Admitting Representative Device Identifier Shelf Expiration Date Model / Serial / Lot [employer] Abre 16mm 100mm Self Expand Rotate Thumbwheel Hemostatic Valve [id number] - [id number] Implanted:Qty: 1 on 10/15/2022 at [facility] [employer] 10/30/2024 [id number] / / [id number] [employer] Abre 12mm 120mm Self Expand Rotate Thumbwheel Hemostatic Valve [id number] - [id number] Implanted:Qty: 1 on 11/14/2023 at [facility] [employer] 01/16/2025 [id number] / / [id number] [employer] Abre 12mm 120mm Self Expand Rotate Thumbwheel Hemostatic Valve [id number] - [id number] Implanted:Qty: 1 on 08/05/2024 by Umberto Garcia MD at [facility] [employer] 03/30/2027 [id number] / / [id number] Procedures Procedure Name Priority Date/Time Associated Diagnosis Comments US BREAST RIGHT LIMITED Schedule Routine, Read Routine (OP Routine) 11/02/2024 4:13 PM CDT Abnormal mammogram DIAGNOSTIC MAMMOGRAM RIGHT W BRENDON Schedule Routine, Read Routine (OP Routine) 11/02/2024 3:46 PM CDT Abnormal mammogram SCREENING MAMMOGRAM BILATERAL W BRENDON Schedule Routine, Read Routine (OP Routine) 10/07/2024 1:09 PM CDT Healthcare maintenance PAP AND HIGH RISK HPV, REFLEX TO GENOTYPING Routine 10/17/2022 4:58 PM CDT from Last 3 Months or Most Recently Relevant to Health Maintenance Results * US Breast Right Limited (11/02/2024 4:13 PM CDT) Anatomical Region Laterality Modality Breast Right Ultrasound 11/02/2024 4:25 PM CDT Impressions 11/02/2024 4:30 PM CDT Right upper breast asymmetry without sonographic correlate is felt to be probably benign given that it was likely not included on prior mammogram given for posterior location and lack of tomosynthesis imaging. Recommend short interval right breast mammographic follow-up in 6 months. Given patient's family history of early onset breast cancer in paternal grandmother, patient was provided contact information for Dr. Peña's clinic for high risk assessment. OVERALL FINAL ASSESSMENT: BI-RADS Category 3: Probably Benign. RECOMMENDATION: Recommend follow-up diagnostic right breast mammogram and possible ultrasound in [address] Oliva discussed the above findings and recommendations with the patient. Dictated by: Birgit Hawley M.D. The radiology attending physician has personally reviewed this study, and had reviewed and/or edited this written report and agrees with it. Electronically signed by: Frances Oliva M.D. Narrative 11/02/2024 4:30 PM CDT EXAMINATION: RIGHT UNILATERAL DIGITAL DIAGNOSTIC MAMMOGRAM AND DIGITAL BREAST TOMOSYNTHESIS; RIGHT BREAST SONOGRAM HISTORY: 44-year-old woman presents for screening detected right breast asymmetry. Patient reports breast cancer in a paternal grandmother at a young age. COMPARISON: Most recent screening dated 10/07/2024, and 10/22/2023 TECHNIQUE: Full field digital mammographic views of the RIGHT breast were performed, including computer aided detection (CAD) and digital breast tomosynthesis (DBT). Directed ultrasound evaluation of the RIGHT breast was performed by a trained data analytics specialist and by Dr. Oliva . BREAST PARENCHYMAL COMPOSITION: The breasts are heterogeneously dense, which may obscure small masses. MAMMOGRAM FINDINGS: Right breast asymmetry detected on screening mammogram, best viewed on MLO tomosynthesis images demonstrate a partially obscured asymmetry which persists on additional images obtained and appears slightly less conspicuous than screening mammogram. Given the far posterior position of the asymmetry, this was likely not included on screening mammogram 10/22/2023 and difficult to compare to screening mammogram 05/10/2022 given lack of tomosynthesis. SONOGRAM FINDINGS: RIGHT breast, 11:00, 9 cm from the nipple, 12:00, 9 cm the nipple, 1:00, 9 cm the nipple, there is no corresponding mass. us Lucie Gonzalez MD IMG MAMMO PROCEDURES Final R esult * Diagnostic Mammogram Right W Brendon (11/02/2024 3:46 PM CDT) Anatomical Region Laterality Modality Breast Right Mammography 11/02/2024 4:25 PM CDT Impressions 11/02/2024 4:30 PM CDT Right upper breast asymmetry without sonographic correlate is felt to be probably benign given that it was likely not included on prior mammogram given for posterior location and lack of tomosynthesis imaging. Recommend short interval right breast mammographic follow-up in 6 months. Given patient's family history of early onset breast cancer in paternal grandmother, patient was provided contact information for Dr. Peña's clinic for high risk assessment. OVERALL FINAL ASSESSMENT: BI-RADS Category 3: Probably Benign. RECOMMENDATION: Recommend follow-up diagnostic right breast mammogram and possible ultrasound in [address] Oliva discussed the above findings and recommendations with the patient. Dictated by: Birgit Hawley M.D. The radiology attending physician has personally reviewed this study, and had reviewed and/or edited this written report and agrees with it. Electronically signed by: Farnces Oliva M.D. Narrative 11/02/2024 4:30 PM CDT EXAMINATION: RIGHT UNILATERAL DIGITAL DIAGNOSTIC MAMMOGRAM AND DIGITAL BREAST TOMOSYNTHESIS; RIGHT BREAST SONOGRAM HISTORY: 44-year-old woman presents for screening detected right breast asymmetry. Patient reports breast cancer in a paternal grandmother at a young age. COMPARISON: Most recent screening dated 10/07/2024, and 10/22/2023 TECHNIQUE: Full field digital mammographic views of the RIGHT breast were performed, including computer aided detection (CAD) and digital breast tomosynthesis (DBT). Directed ultrasound evaluation of the RIGHT breast was performed by a trained data analytics specialist and by Dr. Oliva . BREAST PARENCHYMAL COMPOSITION: The breasts are heterogeneously dense, which may obscure small masses. MAMMOGRAM FINDINGS: Right breast asymmetry detected on screening mammogram, best viewed on MLO tomosynthesis images demonstrate a partially obscured asymmetry which persists on additional images obtained and appears slightly less conspicuous than screening mammogram. Given the far posterior position of the asymmetry, this was likely not included on screening mammogram 10/22/2023 and difficult to compare to screening mammogram 05/10/2022 given lack of tomosynthesis. SONOGRAM FINDINGS: RIGHT breast, 11:00, 9 cm from the nipple, 12:00, 9 cm the nipple, 1:00, 9 cm the nipple, there is no corresponding mass. us Lucie Gonzalez MD IMG MAMMO PROCEDURES Final R esult * (ABNORMAL) Screening Mammogram Bilateral W Brendon (10/07/2024 1:09 PM CDT) Anatomical Region Laterality Modality Breast Bilateral Mammography Impressions 10/08/2024 7:03 AM CDT Right 1) Asymmetry: Right breast asymmetry in the upper region. Assessment: 0 - Incomplete. Diagnostic mammogram with possible ultrasound is recommended. Left No evidence of malignancy. OVERALL BI-RADS FINAL ASSESSMENT: 0 - Incomplete: Needs Additional Imaging Evaluation RECOMMENDATIONS: Recommend right breast diagnostic mammogram with possible ultrasound. Narrative 10/08/2024 7:03 AM CDT EXAMINATION: Screening Mammogram Bilateral W Brendon: 10/07/2024 COMPARISON: Relevant prior studies available at the time of interpretation were reviewed. TECHNIQUE: Mammography was performed with 2D and digital breast tomosynthesis (DBT) images. CAD was utilized. BREAST PARENCHYMAL COMPOSITION: The breasts are heterogeneously dense, which may obscure small masses. FINDINGS: Right 1) Asymmetry: There is an asymmetry seen in the upper region of the right breast on the MLO view. This could represent a benign lymph node but is partly obscured. This finding needs additional imaging evaluation. Left There is no suspicious mass, calcification, or architectural distortion. us Lucie Gonzalez MD IMG MAMMO PROCEDURES Final R esult * Pap and High Risk HPV, reflex to Genotyping (10/17/2022 4:58 PM CDT) Thin prep (Pap test) 10/17/2022 4:58 PM CDT 10/17/2022 6:01 PM CDT Narrative PATHOLOGY [facility] - 10/25/2022 2:38 PM CDT EPIC results best viewed via link to PDF [facility] [place] [address] Note to Patients: This report may contain [...] Gender: F : 1980 (Age: 42) Address: [place] [address] Hospital #: [id number] Service: Medical Location: [place] [address] Patient Type: [facility] Inpatient Taken: 10/17/2022 Received: 10/17/2022 Accessioned: 10/18/2022 [...] 69. This HPV test was performed at [facility] in [place], [place] utilizing the Gen-Probe Aptima assay. This specimen has been rescreened in accordance with this laboratory's Feather Trimmer Program. 10/25/2022 14:38 SANDI Gill(ASCP) Report Electronically [...] clinical information and biopsy results as indicated. [facility] Clinical Laboratory Improvement Amendments (CLIA) mandate that cytologic and histologic results be correlated for laboratory water quality tester & improvement standards. FOR ALL HIGH-GRADE CASES [...] AUB. The HPV test was performed by [facility], [address] [place] [address]. Report Images and scanned documents, if included only viewable in PDF version The performance characteristics of some immunohistochemical stains, in-situ hybridization and fluorescence in-situ hybridization tests and immunophenotyping by flow cytometry cited in this report (if any) were determined by the Surgical Pathology Department at [facility] as part of an ongoing corporate quality assurance manager program and in compliance with federally [...] Surgical Pathology Department of [facility]. It has not been cleared or approved by the U. S. Food and Drug Administration. Jodee De Santiago MD LAB CYTOLOGY O RDERABLES Final Result Performing Organization Address City/State/[facility] Co de Phone Number PATHOLOGY [facility] 3rd Floor [place], [place] [phone] from Last 3 Months or Most Recently Relevant to Health Maintenance Insurance Advance Directives For more information, please contact: [phone] * Full Code (Latest Code Status on File) Date Activated Date Inactivated Comments 08/05/2024 7:14 AM 08/07/2024 8:27 PM * Full Code Date Activated Date Inactivated Comments 11/14/2023 5:19 PM 11/15/2023 7:00 PM * Full Code Date Activated Date Inactivated Comments 11/14/2023 9:40 AM 11/14/2023 5:19 PM * Full Code Date Activated Date Inactivated Comments 10/15/2022 2:44 PM 10/18/2022 7:48 PM Care Teams Scrap Sawyer Relationship Specialty Start Date End Date Pierre Cisneros PA [address] [place] [address] PCP - General Internal Medicine 09/04/23 Becky Peña MD [address] [facility] [address] [place] [address] Surgeon Medical Oncology 11/17/24
[2024-12-30 16:18] LABS: Hematocrit 42.4 % (37.0-47.0); Hemoglobin 13.8 g/dL (12.0-15.0); Mean Corpuscular HGB Conc 32.5 g/dl (32-36); Mean Corpuscular Hemoglobin 30.3 pg (26-34); Mean Corpuscular Volume 93.2 fl (80-100); Platelet Count Result 364 k/mm3 (150-375); Red Blood Count 4.55 M/mm3 (4.2-5.4); White Blood Count 5.5 K/mm3 (4.5-10.0)
[2024-12-30 16:25] LABS: Alanine Aminotransferase 15 U/L (6-35); Albumin Level 4.3 g/dL (3.5-5.1); Alkaline Phosphatase 44 U/L (38-126); Anion Gap 8 mmol/L (4-12); Aspartate Amino Transferase 25 U/L (14-36); Bilirubin,Total 0.4 mg/dL (0.2-1.3); Blood Urea Nitrogen 10 mg/dL (7-17); Calcium 9.2 mg/dL (8.4-10.2); Carbon Dioxide 22 mmol/L (22-30); Chloride 107 mmol/L (98-107); Cholesterol 201 mg/dL (0-200); Estimated Glomerular Filt Rate > 60; Glucose 85 mg/dL (65-110); HDL Direct 41 mg/dL; Potassium 4.4 mmol/L (3.4-5.0); Sodium 137 mmol/L (137-145); Total Protein 7.2 g/dL (6.3-8.2); Triglycerides 194 mg/dL (<150)
[2024-12-30 16:39] LABS: Free T4 Free Thyroxine 2.38 ng/dL (0.78-2.19)
[2024-12-30 17:00] LABS: Thyroid Stimulating Hormone < 0.015 uIU/mL (0.465-4.680)
[2024-12-30 17:01] LABS: Hemoglobin A1C 5.0 % (<5.7)
[2024-12-30 17:05] LABS: Add Urine Microscopic? YES; Appearance Urine Clear (Clear); Glucose Urine UA Negative (Negative); Leukocyte Esterase Ur Negative LEU/UL (Negative); Nitrate Urine Negative (Negative); Non Pathogenic Casts 0-2; Specific Grav Ur 1.021 (1.001-1.035)
[2024-12-30 17:11] LABS: MALB Creatinine Ratio 3.9 mg/g (0-30)
== END 2024-12-30 15:29 | disposition home or self-care (01) ==
LOC: ANHLAB 15:30
PROVIDERS: PCP Physician Assistant; Visit Provider Physician Assistant
DX: F15.90 Other stimulant use, unspecified, uncomplicated (principal); N95.1 Menopausal and female climacteric states; R07.89 Other chest pain; H04.9 Disorder of lacrimal system, unspecified; R68.84 Jaw pain; F41.1 Generalized anxiety disorder; E03.9 Hypothyroidism, unspecified; M25.561 Pain in right knee; F90.0 Attention-deficit hyperactivity disorder, predominantly inattentive type; R23.4 Changes in skin texture; R68.89 Other general symptoms and signs; K11.7 Disturbances of salivary secretion; H66.90 Otitis media, unspecified, unspecified ear; F12.10 Cannabis abuse, uncomplicated; J01.90 Acute sinusitis, unspecified; Z68.23 Body mass index [BMI] 23.0-23.9, adult; Z79.01 Long term (current) use of anticoagulants; Z79.899 Other long term (current) drug therapy
CPT/HCPCS: 36415; 80053; 80061; 80069; 81001; 82043; 82306; 83036; 84439; 84443; 85027